=== PATIENT | female | born 1965 | race Caucasian/White ===

== ENCOUNTER 2019-09-20 13:13 | Outpatient (CLI) | payer MEDICARE, MEDICAID, SELFPAY ==
[2019-09-20 13:50] LABS: Free T4 Free Thyroxine 1.01 ng/dL (0.76-1.46); Magnesium 1.7 mg/dL (1.8-2.4); Thyroid Stimulating Hormone 2.29 uIU/mL (0.36-3.74)
[2019-09-20] MEDS: CYANOCOBALAMIN INJ 1,000 MCG/ML VIAL 1000 MCG IM (13:52)
== END 2019-09-20 13:14 | disposition home or self-care (01) ==
LOC: CHSLAB 13:17
PROVIDERS: PCP Internal Medicine; Visit Provider Nurse Practitioner Family
DX: E53.8 Deficiency of other specified B group vitamins (principal); E83.42 Hypomagnesemia; E03.9 Hypothyroidism, unspecified
CPT/HCPCS: 36415; 83735; 84439; 84443; 96365; 96366; 96372; J3420; J3475; J7050

== ENCOUNTER 2019-10-17 13:03 | Outpatient (CLI) | payer MEDICARE, MEDICAID, SELFPAY ==
[2019-10-17] MEDS: CYANOCOBALAMIN INJ 1,000 MCG/ML VIAL 1000 MCG IM (13:45)
[2019-10-17 14:23] LABS: Vitamin B12 954 pg/mL (193-986)
[2019-10-17 17:13] LABS: Magnesium 1.6 mg/dL (1.8-2.4)
== END 2019-10-17 13:04 | disposition home or self-care (01) ==
LOC: CHSLAB 13:06
PROVIDERS: PCP Internal Medicine; Visit Provider Internal Medicine
DX: E53.8 Deficiency of other specified B group vitamins (principal); E83.42 Hypomagnesemia
CPT/HCPCS: 36415; 82607; 83735; 96365; 96367; J3420; J3475

== ENCOUNTER 2020-01-10 15:43 | Outpatient (CLI) | payer MEDICARE, SELFPAY ==
[2020-01-10 15:58] LABS: Basophils Absolute Auto 0.06 K/mm3 (0.00-0.10); Basophils Percent Auto 0.4 % (0.0-1.0); Eosinophils Absolute Auto 0.39 K/mm3 (0.02-0.50); Eosinophils Percent Auto 2.9 % (1.0-6.0); Hematocrit 38.4 % (35.0-49.0); Hemoglobin 12.6 g/dL (12.0-15.0); Immature Granulocyte Absolute 0.07 K/mm3 (0.00-0.00); Immature Granulocyte Percent A 0.5 % (0.0-0.0); Lymphocytes Absolute Auto 3.27 K/mm3 (1.10-4.50); Lymphocytes Percent Auto 24.3 % (18.0-42.0); Mean Corpuscular HGB Conc 32.8 g/dL (32.0-36.0); Mean Corpuscular Hemoglobin 29.4 pg (27.0-31.0); Mean Corpuscular Volume 89.5 fL (78.0-102.0); Mean Platelet Volume 9.6 fl (9.2-11.8); Monocytes Absolute Auto 0.67 K/mm3 (0.10-0.90); Neutrophils Percent Auto 66.9 % (50.0-70.0); Platelet Count Result 229 K/mm3 (150-420); Red Blood Count 4.29 M/mm3 (4.20-5.40); Red Cell Distribution Width 13.2 % (11.6-14.4); White Blood Count 13.4 K/mm3 (4.8-10.8)
[2020-01-10 16:02] LABS: Add Urine Microscopic? YES; Appearance Urine Clear (Clear); Bilirubin Urine Negative (Negative); Blood Urine Negative (Negative); Color Urine Yellow (Yellow); Glucose Urine UA 3+ (Negative); Ketones Urine Negative (Negative); Leukocyte Esterase Ur Negative LEU/UL (Negative); Nitrate Urine Negative (Negative); Protein Urine Negative (Negative); Urobilinogen Urine 0.2 mg/dL (0.2-1.0); pH Urine 6.5 (5.0-8.0)
[2020-01-10 16:06] LABS: Bacteria Urine Trace /hpf; RBC Urine None seen /hpf (0-2); Squamous Epithelial Cell Urine Few /hpf (Few); WBC Urine 0-3 /hpf (0-3)
[2020-01-10 16:41] LABS: Alanine Aminotransferase 20 U/L (14-59); Albumin Level 3.6 g/dL (3.4-5.0); Alkaline Phosphatase 91 U/L (46-116); Anion Gap 12.2 mmol/L (7-16); Aspartate Amino Transferase 17 U/L (15-37); Bilirubin,Total 0.2 mg/dL (0.00-1.00); Blood Urea Nitrogen 32 mg/dL (7-18); Calcium 10.4 mg/dL (8.5-10.1); Carbon Dioxide 33 mmol/L (21-32); Chloride 99 mmol/L (98-108); Estimated Glomerular Filt Rate 37; Glucose 202 mg/dL (70-99); Magnesium 1.2 mg/dL (1.8-2.4); Osmolality Calculated 302 mOsm/kg (285-295); Phosphorus 3.9 mg/dL (2.6-4.7); Potassium 4.2 mmol/L (3.5-5.1); Sodium 140 mmol/L (136-145); Total Protein 6.7 g/dL (6.4-8.2)
[2020-01-14 16:01] LABS: CRP 1.2 mg/dL (0.0-0.9); Uric Acid 5.9 mg/dL (2.6-6.0)
[2020-01-17 21:25] LABS: Anti Cyclic Citrullinated Pept <16 Units (<20)
== END 2020-01-10 15:44 | disposition home or self-care (01) ==
LOC: CHSLAB 15:46
PROVIDERS: PCP Internal Medicine; Visit Provider Internal Medicine
DX: R11.0 Nausea (principal); R42 Dizziness and giddiness; E83.42 Hypomagnesemia; I12.9 Hypertensive chronic kidney disease with stage 1 through stage 4 chronic kidney disease, or unspecified chronic kidney disease; N18.3 Chronic kidney disease, stage 3 (moderate)
CPT/HCPCS: 36415; 80053; 81001; 83735; 84100; 84550; 85025; 86140; 86200

== ENCOUNTER 2020-01-14 12:18 | Outpatient (CLI) | payer MEDICARE, MEDICAID, SELFPAY ==
--- NOTE | ~2020-01-14 | XR_ITS ---
EXAMINATION: XR wrist RT min 3V DATE: 01/14/2020 12:35 INDICATION: Right wrist pain and swelling. TECHNIQUE: 4 views of right wrist were obtained. COMPARISON: Right hand radiographs 10/31/2019 FINDINGS: Bone alignment is normal. No fracture. There are erosions of radial styloid and distal ulna . There are dystrophic calcifications in the wrist including chondrocalcinosis of triangular fibrocar tilage. IMPRESSION: 1. Erosions in radial styloid and distal ulna. The differential diagnosis includes gout, CPPD arthrop athy, and rheumatoid arthritis. Reviewed, dictated and finalized at location A. IMPRESSION: 1. Erosions in radial styloid and distal ulna. The differential diagnosis inclu acosta gout, CPPD arthropathy, and rheumatoid arthritis.
== END 2020-01-14 12:19 | disposition home or self-care (01) ==
LOC: CHSIMG 12:22
PROVIDERS: PCP Internal Medicine; Visit Provider Internal Medicine
DX: E83.42 Hypomagnesemia (principal); E83.52 Hypercalcemia; M25.531 Pain in right wrist
CPT/HCPCS: 73110

== ENCOUNTER 2020-01-15 11:01 | Outpatient (CLI) | payer MEDICARE, MEDICAID, SELFPAY ==
[2020-01-15] MEDS: CYANOCOBALAMIN INJ 1,000 MCG/ML VIAL 1000 MCG IM (11:35)
== END 2020-01-15 11:02 | disposition home or self-care (01) ==
PROVIDERS: PCP Internal Medicine; Visit Provider Internal Medicine
DX: E53.8 Deficiency of other specified B group vitamins (principal); E83.42 Hypomagnesemia
CPT/HCPCS: 96365; 96366; 96372; J3420; J3475; J7050

== ENCOUNTER 2020-01-27 13:02 | Outpatient (CLI) | payer MEDICARE, SELFPAY ==
[2020-01-27 13:53] LABS: Alanine Aminotransferase 27 U/L (14-59); Albumin Level 3.2 g/dL (3.4-5.0); Alkaline Phosphatase 92 U/L (46-116); Anion Gap 9.4 mmol/L (7-16); Aspartate Amino Transferase 20 U/L (15-37); Bilirubin,Total 0.4 mg/dL (0.00-1.00); Blood Urea Nitrogen 29 mg/dL (7-18); Calcium 8.8 mg/dL (8.5-10.1); Carbon Dioxide 33 mmol/L (21-32); Chloride 101 mmol/L (98-108); Estimated Glomerular Filt Rate 40; Glucose 123 mg/dL (70-99); Magnesium 1.4 mg/dL (1.8-2.4); Osmolality Calculated 294 mOsm/kg (285-295); Phosphorus 3.4 mg/dL (2.6-4.7); Potassium 4.4 mmol/L (3.5-5.1); Sodium 139 mmol/L (136-145); Total Protein 6.6 g/dL (6.4-8.2)
[2020-01-29 11:36] LABS: Parathyroid Intact 63 pg/mL (14-64)
== END 2020-01-27 13:03 | disposition home or self-care (01) ==
LOC: CHSLAB 13:04
PROVIDERS: PCP Internal Medicine; Visit Provider Internal Medicine
DX: E83.42 Hypomagnesemia (principal); E83.52 Hypercalcemia; M25.531 Pain in right wrist
CPT/HCPCS: 36415; 80053; 83735; 83970; 84100

== ENCOUNTER 2020-02-04 13:29 | Outpatient (CLI) | payer MEDICARE, MEDICAID, SELFPAY ==
--- NOTE | ~2020-02-04 | CT_ITS ---
EXAMINATION: CT sinus wo con DATE: 02/04/2020 13:55 INDICATION: Chronic sinusitis TECHNIQUE: Computed tomography (CT) of the paranasal sinuses was performed without intravenous contra st. The dose-length product (DLP) was 272.65 mGy-cm. Iterative reconstruction was used. COMPARISON: None FINDINGS: There is normal development and pneumatization of the paranasal sinuses. The right frontal sinus is hypoplastic. The left frontal sinus is normal. There is mucosal thickening in the inferior a spect of the right maxillary sinus. There is mild mucosal thickening in the right anterior ethmoidal air cells. There appear to be surgical changes in the medial samaniego of the maxillary sinuses. The righ t ostiomeatal complex is patent but narrow. Visualized soft tissues are unremarkable. IMPRESSION: 1. Right maxillary and ethmoidal air cell sinusitis. Reviewed, dictated and finalized at location A.
[2020-02-04 13:45] LABS: Add Urine Microscopic? YES; Appearance Urine Clear (Clear); Bilirubin Urine Negative (Negative); Blood Urine Negative (Negative); Color Urine Straw (Yellow); Glucose Urine UA 3+ (Negative); Ketones Urine Negative (Negative); Leukocyte Esterase Ur Negative LEU/UL (Negative); Nitrate Urine Negative (Negative); Protein Urine Negative (Negative); Urobilinogen Urine 0.2 mg/dL (0.2-1.0); pH Urine 6.5 (5.0-8.0)
[2020-02-04 14:01] LABS: Bacteria Urine Trace /hpf; Mucus Urine Few /lpf; RBC Urine None seen /hpf (0-2); Squamous Epithelial Cell Urine Few /hpf (Few); WBC Urine None seen /hpf (0-3)
== END 2020-02-04 13:30 | disposition home or self-care (01) ==
LOC: CHSIMG 13:31
PROVIDERS: PCP Internal Medicine
DX: J32.8 Other chronic sinusitis (principal); N39.0 Urinary tract infection, site not specified
CPT/HCPCS: 70486; 81001

== ENCOUNTER 2020-02-18 13:03 | Outpatient (CLI) | payer MEDICARE, MEDICAID, SELFPAY ==
[2020-02-18] MEDS: CYANOCOBALAMIN INJ 1,000 MCG/ML VIAL 1000 MCG IM (13:45)
--- NOTE | 2020-02-18 16:30 | PC.NURSE ---
Patient tolerated infusion well. Denies any questions or concerns. IV site removed, tip intact. Dressing applied to site. Paitent left ambulatory.
== END 2020-02-18 13:04 | disposition home or self-care (01) ==
LOC: CHSTREATRM 13:08
PROVIDERS: PCP Internal Medicine; Visit Provider Internal Medicine
DX: E53.8 Deficiency of other specified B group vitamins (principal); E83.42 Hypomagnesemia
CPT/HCPCS: 96365; 96366; 96372; J3420; J3475; J7050

== ENCOUNTER 2020-03-01 10:18 | Emergency (ER) | payer MEDICARE, MEDICAID, SELFPAY ==
--- NOTE | ~2020-03-01 | CT_ITS ---
EXAMINATION: CT abdomen pelvis w con DATE: 03/01/2020 14:07 INDICATION: Left lower quadrant abdominal pain. TECHNIQUE: Computed tomography (CT) of the abdomen and pelvis was performed with 100 mL Omnipaque 350 intravenous contrast. Automated exposure control and iterative reconstruction technique were employe d. The dose-length product was 1598.40 mGy-cm. COMPARISON: CT abdomen and pelvis 04/21/17 FINDINGS: The visualized portions of the lung bases are clear without pneumonia or pleural effusion. The heart size is normal. There are coronary artery calcifications. No pericardial effusion. There ar e surgical changes of the stomach. The liver and spleen are normal. The gallbladder is distended. Darrell cifications in the pancreas are consistent with chronic pancreatitis. The adrenal glands are normal. There is cortical thinning of the kidneys. There is a 2.9 cm cyst in right kidney. There are no dilat ed loops of bowel. The appendix is normal. There are no pathologically enlarged lymph nodes. There is no free intraperitoneal fluid. There is severe thoracic and lumbar spondylosis. There is mild chroni c anterior wedging of multiple thoracic vertebral bodies. IMPRESSION: 1. Gallbladder distention, which may be secondary to fasting. Correlate with physical exam to exclude acute cholecystitis. Reviewed, dictated and finalized at location A. IMPRESSION: 1. Gallbladder distention, which may be secondary to fasting. Correlate with ph ysical exam to exclude acute cholecystitis.
[2020-03-01 12:00] VITALS: BP 135/77; PULSE 81; RESP 20; TEMP 36.9; O2SAT 99
[2020-03-01 12:04] LABS: Add Urine Microscopic? YES; Appearance Urine Sl Cloudy (Clear); Bilirubin Urine Negative (Negative); Blood Urine Negative (Negative); Color Urine Yellow (Yellow); Glucose Urine UA 3+ (Negative); Ketones Urine Negative (Negative); Leukocyte Esterase Ur Negative (Negative); Nitrate Urine Negative (Negative); Protein Urine Negative (Negative); Specific Grav Ur 1.015 (1.010-1.020); Urobilinogen Urine 0.2 mg/dL (0.2-1.0); pH Urine 5.5 (5.0-8.0)
[2020-03-01 12:09] LABS: Bacteria Urine Trace /hpf; RBC Urine None seen /hpf (0-2); Squamous Epithelial Cell Urine Moderate /hpf (Few); WBC Urine None seen /hpf (0-3)
[2020-03-01 12:29] LABS: Basophils Absolute Auto 0.08 K/mm3 (0.00-0.10); Basophils Percent Auto 0.7 % (0.0-1.0); Eosinophils Absolute Auto 0.76 K/mm3 (0.02-0.50); Eosinophils Percent Auto 6.3 % (1.0-6.0); Hematocrit 39.3 % (35.0-49.0); Hemoglobin 12.6 g/dL (12.0-15.0); Immature Granulocyte Absolute 0.08 K/mm3 (0.00-0.00); Immature Granulocyte Percent A 0.7 % (0.0-0.0); Lymphocytes Absolute Auto 3.25 K/mm3 (1.10-4.50); Lymphocytes Percent Auto 26.9 % (18.0-42.0); Mean Corpuscular HGB Conc 32.1 g/dL (32.0-36.0); Mean Corpuscular Hemoglobin 28.8 pg (27.0-31.0); Mean Corpuscular Volume 89.9 fL (78.0-102.0); Monocytes Absolute Auto 0.67 K/mm3 (0.10-0.90); Monocytes Percent Auto 5.6 % (2.0-11.0); Neutrophils Absolute Auto 7.2 K/mm3 (1.7-7.2); Neutrophils Percent Auto 59.8 % (50.0-70.0); Platelet Count Result 244 K/mm3 (150-420); Red Blood Count 4.37 M/mm3 (4.20-5.40); Red Cell Distribution Width 13.1 % (11.6-14.4); White Blood Count 12.1 K/mm3 (4.8-10.8)
[2020-03-01 12:41] LABS: Partial Thromboplastin Time 26.1 SEC (22.3-31.6); Prothrombin Time 10.1 Seconds (9.64-11.0)
[2020-03-01 12:44] LABS: Alanine Aminotransferase 20 U/L (14-59); Albumin Level 3.6 g/dL (3.4-5.0); Alkaline Phosphatase 99 U/L (46-116); Anion Gap 10.8 mmol/L (7-16); Aspartate Amino Transferase 20 U/L (15-37); Bilirubin,Total 0.4 mg/dL (0.00-1.00); Blood Urea Nitrogen 44 mg/dL (7-18); Calcium 9.3 mg/dL (8.5-10.1); Carbon Dioxide 30 mmol/L (21-32); Chloride 101 mmol/L (98-108); Estimated Glomerular Filt Rate 39; Glucose 103 mg/dL (70-99); Lipase 201 U/L (73-393); Osmolality Calculated 297 mOsm/kg (285-295); Potassium 3.8 mmol/L (3.5-5.1); Sodium 138 mmol/L (136-145); Total Protein 7.5 g/dL (6.4-8.2)
[2020-03-01] MEDS: SODIUM CHLORIDE 0.9% IV 1,000 ML 999 ML IV CONT (13:18)
--- NOTE | 2020-03-01 14:07 | ED.ABDPAIN ---
HPI - Abdominal Pain General Chief Complaint: Abdominal Pain Stated Complaint: lower abdomen pain Time Seen by Provider: 03/01/20 14:07 Source: patient Mode of arrival: ambulatory Limitations: no limitations History of Present Illness HPI narrative: 54-year-old woman comes in today complaining of left groin and left lower quadrant pain which has been present intermittently for last 3 weeks. She states it started suddenly, was severe and lasted for several hours. Since then it has been intermittent. She denies any groin swelling, fever, nausea, vomiting, diarrhea or history of hernia. She has had no change in her appetite or patterns of bowel movement. She was diagnosed with the UTI approximately 1 week ago and took 7 days of Cipro. She denies any dysuria, hematuria or urinary frequency. She developed a yeast infection and took Diflucan afterwards which resolved the problem. MD elicited complaint: abdominal pain Onset (ago): week(s) (3) Pain Consistency: intermittent Location: LLQ and groin (left) Severity: moderate Quality: sharp Radiation: none Migration to: no migration Exacerbating factors: nothing Relieving factors: nothing Context: confirms recent antibiotic use Related Data Home Medications Medication Instructions Recorded Confirmed allopurinol 100 mg tablet 100 mg PO DAILY 10/31/19 03/01/20 exenatide microspheres 2 mg/0.65 2 mg SUB-Q Q7D 10/31/19 03/01/20 mL subcutaneous pen injector dapagliflozin 10 mg tablet 10 mg PO DAILY 11/11/19 03/01/20 levothyroxine 13 mcg capsule 13 mcg PO DAILY 11/11/19 03/01/20 losartan 100 1 tablet PO DAILY 11/11/19 03/01/20 mg-hydrochlorothiazide 12.5 mg tablet pravastatin 20 mg tablet 40 mg PO DAILY tablet 11/11/19 03/01/20 insulin aspart U-100 [Novolog 8 unit SUBCUT QAM 03/01/20 03/01/20 Flexpen U-100 Insulin] insulin aspart U-100 [Novolog 16 unit SUBCUT QNOON 03/01/20 03/01/20 Flexpen U-100 Insulin] insulin aspart U-100 [Novolog 16 unit SUBCUT QPM 03/01/20 03/01/20 Flexpen U-100 Insulin] insulin glargine [Lantus Solostar 30 unit SUBCUT HS 03/01/20 03/01/20 U-100 Insulin] magnesium chloride 8 meq IV ONCE 03/01/20 03/01/20 mecobalamin (vitamin B12) 10,000 mcg IV MONTHLY 03/01/20 03/01/20 iemeznqnvhcz-eqw-nkiq-FA-vit K 1 tablet PO BID 03/01/20 03/01/20 [Adults Multivitamin] verapamil 80 mg PO DAILY 03/01/20 03/01/20 Allergies Allergy/AdvReac Type Severity Reaction Status Date / Time No Known Allergies Allergy Unknown Verified 10/31/19 14:29 Review of Systems Constitutional: Constitutional: Denies chills and Denies fever(s) Eyes: Eyes: Denies change in vision and Denies photophobia ENT: Denies dysphagia, Denies nasal congestion and Denies sore throat Cardiovascular: Cardiovascular: Denies chest pain and Denies radiating jaw, neck or arm pain Respiratory: Respiratory: Denies chest congestion, Denies cough, Denies dyspnea and Denies wheezing Gastrointestinal: Gastrointestinal: Reports abdominal pain, Denies diarrhea, Denies nausea and Denies vomiting Genitourinary: Genitourinary: Denies hematuria, Denies nocturia and Denies dysuria Musculoskeletal: Musculoskeletal: Denies back pain, Denies arthralgias and Denies joint swelling Integumentary/Breasts: Skin/Breast: Denies pruritus, Denies erythema and Denies rash Neurologic: Denies vertigo, Denies dizziness and Denies syncope Psychiatric: Psychiatric: Denies anxiety and Denies depression Endocrine: Endocrine: Denies polydipsia and Denies polyuria Hematologic/Lymphatic: Hematologic/Lymphatic: Denies easy bleeding and Denies easy bruising Allergic/Immunologic: Allergic/Immunologic: Denies lip swelling and Denies wheezing PMFSH Past Medical History Medical History Anemia Anxiety Arthritis Bilateral knee pain Depression Diabetes 1.5, managed as type 2 High cholesterol HTN (hypertension) Kidney disease Sleep apnea Social History Soc
[2020-03-01 15:22] VITALS: BP 117/99; PULSE 90; O2SAT 97
== END 2020-03-01 15:25 | disposition home or self-care (01) ==
PROVIDERS: Emergency Provider Emergency Medicine; PCP Internal Medicine
DX: R10.9 Unspecified abdominal pain (principal); N18.9 Chronic kidney disease, unspecified
CPT/HCPCS: 36415; 74177; 80053; 81001; 83605; 83690; 85025; 85610; 85730; 96360; 96361; 99283; 99284; J7030; Q9965

== ENCOUNTER 2020-03-19 12:35 | Outpatient (CLI) | payer MEDICARE, MEDICAID, SELFPAY ==
[2020-03-19] MEDS: CYANOCOBALAMIN INJ 1,000 MCG/ML VIAL 1000 MCG IM (13:55)
== END 2020-03-19 12:36 | disposition home or self-care (01) ==
LOC: CHSTREATRM 12:37
PROVIDERS: PCP Internal Medicine; Visit Provider Internal Medicine
DX: E53.8 Deficiency of other specified B group vitamins (principal); E83.42 Hypomagnesemia
CPT/HCPCS: 96365; 96366; 96372; J3420; J3475; J7050

== ENCOUNTER 2020-04-20 13:18 | Outpatient (CLI) | payer MEDICARE, MEDICAID, SELFPAY ==
--- NOTE | 2020-04-20 13:50 | PC.NURSE ---
Pt to room 229 amb per self. A&Ox3. Oriented to room, call garcia in reach. Has no complaints or questions. Reminded to call with needs.
[2020-04-20] MEDS: CYANOCOBALAMIN INJ 1,000 MCG/ML VIAL 1000 MCG IM (14:09)
== END 2020-04-20 13:19 | disposition home or self-care (01) ==
LOC: CHSTREATRM 13:20
PROVIDERS: PCP Internal Medicine; Visit Provider Internal Medicine
DX: E53.8 Deficiency of other specified B group vitamins (principal); E83.42 Hypomagnesemia
CPT/HCPCS: 96365; 96366; 96372; J3420

== ENCOUNTER 2020-05-20 12:51 | Outpatient (CLI) | payer MEDICARE, MEDICAID, SELFPAY ==
[2020-05-20 13:12] VITALS: BP 118/60; PULSE 68; RESP 14; TEMP 36.6; O2SAT 98
[2020-05-20] MEDS: CYANOCOBALAMIN INJ 1,000 MCG/ML VIAL 1000 MCG IM (13:24)
--- NOTE | 2020-05-20 13:29 | PC.NURSE ---
Patient here for monthly B12 injection and Magnesium Infusion. No concerns voiced. B12 injection and Magnesium infusion administered. Tolerated well.
== END 2020-05-20 12:52 | disposition home or self-care (01) ==
LOC: CHSTREATRM 12:54
PROVIDERS: PCP Internal Medicine; Visit Provider Internal Medicine
DX: E83.42 Hypomagnesemia (principal); E53.8 Deficiency of other specified B group vitamins
CPT/HCPCS: 96365; 96366; 96372; J3420; J3475; J7050

== ENCOUNTER 2020-06-18 13:00 | Outpatient (CLI) | payer MEDICARE, MEDICAID, SELFPAY ==
[2020-06-18] MEDS: CYANOCOBALAMIN INJ 1,000 MCG/ML VIAL 1000 MCG IM (13:32)
[2020-06-18 13:45] VITALS: BP 116/60; PULSE 68; RESP 16; TEMP 36.6; O2SAT 97
--- NOTE | 2020-06-18 14:08 | PC.NURSE ---
Patient here for monthly Vitamin B12 injection and IV Magnesium infusion. No concerns voiced. Vitamin B12 injection given. Iv Magnesium administered. Tolerated well. Will return next month- Jul 20Monday AT1pm
== END 2020-06-18 13:01 | disposition home or self-care (01) ==
LOC: CHSTREATRM 13:01
PROVIDERS: PCP Internal Medicine; Visit Provider Internal Medicine
DX: E53.9 Vitamin B deficiency, unspecified (principal); E83.42 Hypomagnesemia
CPT/HCPCS: 96365; 96366; 96372; J3420; J3475; J7050

== ENCOUNTER 2020-07-20 13:02 | Outpatient (CLI) | payer MEDICARE, MEDICAID, SELFPAY ==
[2020-07-20] MEDS: CYANOCOBALAMIN INJ 1,000 MCG/ML VIAL 1000 MCG IM (13:52)
[2020-07-20 13:53] VITALS: BP 121/78; PULSE 68; RESP 14; TEMP 36.2; O2SAT 97
--- NOTE | 2020-07-20 13:55 | PC.NURSE ---
Patient here for monthly B12 injection and Magnesium infusion. No concerns voiced. Medication administered. Will return in 1 month.
[2020-07-20 17:15] LABS: Basophils Absolute Auto 0.07 K/mm3 (0.00-0.10); Basophils Percent Auto 0.5 % (0.0-1.0); Eosinophils Absolute Auto 0.68 K/mm3 (0.02-0.50); Eosinophils Percent Auto 5.1 % (1.0-6.0); Hematocrit 40.3 % (35.0-49.0); Hemoglobin 12.8 g/dL (12.0-15.0); Immature Granulocyte Absolute 0.06 K/mm3 (0.00-0.00); Immature Granulocyte Percent A 0.4 % (0.0-0.0); Lymphocytes Absolute Auto 4.06 K/mm3 (1.10-4.50); Lymphocytes Percent Auto 30.3 % (18.0-42.0); Mean Corpuscular HGB Conc 31.8 g/dL (32.0-36.0); Mean Corpuscular Hemoglobin 28.5 pg (27.0-31.0); Mean Corpuscular Volume 89.8 fL (78.0-102.0); Mean Platelet Volume 9.8 fl (9.2-11.8); Monocytes Percent Auto 4.5 % (2.0-11.0); Neutrophils Absolute Auto 7.9 K/mm3 (1.7-7.2); Neutrophils Percent Auto 59.2 % (50.0-70.0); Platelet Count Result 279 K/mm3 (150-420); Red Blood Count 4.49 M/mm3 (4.20-5.40); Red Cell Distribution Width 12.7 % (11.6-14.4); White Blood Count 13.4 K/mm3 (4.8-10.8)
[2020-07-20 17:49] LABS: Add Urine Microscopic? YES; Appearance Urine Clear (Clear); Bilirubin Urine Negative (Negative); Blood Urine Negative (Negative); Color Urine Yellow (Yellow); Creatinine Urine 36.17 mg/dL (40-278); Glucose Urine UA 3+ (Negative); Ketones Urine Negative (Negative); Leukocyte Esterase Ur Negative (Negative); Nitrate Urine Negative (Negative); Protein Urine Negative (Negative); Specific Grav Ur 1.025 (1.010-1.020); Total Protein Urine Random 9.7 mg/dL (0.0-11.9); Urobilinogen Urine 0.2 mg/dL (0.2-1.0); pH Urine 5.5 (5.0-8.0)
[2020-07-20 17:49] LABS: Albumin Level 3.8 g/dL (3.4-5.0); Anion Gap 9 mmol/L (8-16); Blood Urea Nitrogen 28 mg/dL (7-18); Calcium 9.9 mg/dL (8.5-10.1); Carbon Dioxide 30 mmol/L (21-32); Chloride 103 mmol/L (98-108); Estimated Glomerular Filt Rate 39; Glucose 106 mg/dL (70-99); Magnesium 3.6 mg/dL (1.8-2.4); Osmolality Calculated 299 mOsm/kg (285-295); Phosphorus 2.7 mg/dL (2.6-4.7); Sodium 142 mmol/L (136-145)
[2020-07-20 17:58] LABS: Bacteria Urine Trace /hpf; RBC Urine 0-2 /hpf (0-2); Squamous Epithelial Cell Urine Few /hpf (Few); WBC Urine 0-3 /hpf (0-3)
== END 2020-07-20 13:03 | disposition home or self-care (01) ==
PROVIDERS: PCP Internal Medicine
DX: E53.8 Deficiency of other specified B group vitamins (principal); E83.42 Hypomagnesemia
CPT/HCPCS: 36415; 80069; 81001; 82570; 83735; 84156; 85025; 96365; 96366; 96372; J3420; J3475; J7050

== ENCOUNTER 2020-07-28 08:56 | Outpatient (CLI) | payer MEDICARE, MEDICAID, SELFPAY ==
--- NOTE | ~2020-07-28 | XR_ITS ---
EXAMINATION: XR wrist LT min 3V DATE: 07/28/2020 09:24 INDICATION: Left wrist pain. TECHNIQUE: 3 views of left wrist were obtained. COMPARISON: Left hand radiographs 10/31/2019 FINDINGS: Bone alignment is normal. No fracture. There is mild osteoarthritis of triscaphe joint. The re are dystrophic calcifications in the wrist including at the triangular fibrocartilage. IMPRESSION: 1. Mild osteoarthritis of triscaphe joint. Reviewed, dictated and finalized at location B. CTOR ADULT
--- NOTE | ~2020-07-28 | XR_ITS ---
EXAMINATION: XR wrist RT min 3V DATE: 07/28/2020 09:24 INDICATION: Right wrist pain. TECHNIQUE: 3 views of right wrist were obtained. COMPARISON: Right wrist radiographs 01/14/2020 FINDINGS: Bone alignment is normal. No fracture. There is mild osteoarthritis of triscaphe joint, fir st carpometacarpal joint, and radioscaphoid joint. There are dystrophic calcifications in the wrist i ncluding at the triangular fibrocartilage. IMPRESSION: 1. Mild polyarticular osteoarthritis. Reviewed, dictated and finalized at location B. 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
== END 2020-07-28 08:57 | disposition home or self-care (01) ==
LOC: CHSIMG 08:58
PROVIDERS: PCP Internal Medicine; Visit Provider Orthopaedic Surgery
DX: M25.532 Pain in left wrist (principal); M25.531 Pain in right wrist
CPT/HCPCS: 73110

== ENCOUNTER 2020-08-18 13:03 | Outpatient (CLI) | payer MEDICARE, MEDICAID, SELFPAY ==
[2020-08-18 13:26] VITALS: BP 140/60; PULSE 78; RESP 16; TEMP 36.4; O2SAT 99
[2020-08-18] MEDS: CYANOCOBALAMIN INJ 1,000 MCG/ML VIAL 1000 MCG IM (13:38)
--- NOTE | 2020-08-18 13:48 | PC.NURSE ---
Patient here for monthly B12 injection and IV Magnesium infusion over 3 hours. No concerns voiced. Medication above administered. Magnesium infusion started at 1338 finished 1639. Will return Sep 15, 2020
== END 2020-08-18 13:04 | disposition home or self-care (01) ==
LOC: CHSOP 13:07 → CHSTREATRM 13:16
PROVIDERS: PCP Internal Medicine; Visit Provider Internal Medicine
DX: E53.8 Deficiency of other specified B group vitamins (principal); E83.42 Hypomagnesemia
CPT/HCPCS: 96365; 96366; 96372; J3420; J3475; J7050

== ENCOUNTER 2020-09-15 13:00 | Outpatient (CLI) | payer MEDICARE, MEDICAID, SELFPAY ==
[2020-09-15] MEDS: CYANOCOBALAMIN INJ 1,000 MCG/ML VIAL 1000 MCG IM (13:58)
== END 2020-09-15 13:01 | disposition home or self-care (01) ==
PROVIDERS: PCP Internal Medicine; Visit Provider Internal Medicine
DX: E83.42 Hypomagnesemia (principal); E53.8 Deficiency of other specified B group vitamins
CPT/HCPCS: 96365; 96366; 96372; J3420; J3475; J7050

== ENCOUNTER 2020-10-16 12:28 | Outpatient (CLI) | payer MEDICARE, MEDICAID, SELFPAY ==
--- NOTE | 2020-10-16 12:40 | PC.NURSE ---
Here for op IM and IV meds
[2020-10-16 12:52] LABS: Magnesium 1.5 mg/dL (1.8-2.4)
[2020-10-16] MEDS: CYANOCOBALAMIN INJ 1,000 MCG/ML VIAL 1000 MCG IM (13:12)
== END 2020-10-16 12:29 | disposition home or self-care (01) ==
PROVIDERS: PCP Internal Medicine; Visit Provider Internal Medicine
DX: E83.42 Hypomagnesemia (principal); E53.8 Deficiency of other specified B group vitamins
CPT/HCPCS: 36415; 83735; 96360; 96361; 96372; J3420; J3475; J7050

== ENCOUNTER 2020-10-20 08:08 | Outpatient (CLI) | payer MEDICARE, MEDICAID, SELFPAY ==
--- NOTE | ~2020-10-20 | XR_ITS ---
EXAMINATION: XR elbow RT min 3V DATE: 10/20/2020 08:33 INDICATION: Right elbow pain. TECHNIQUE: 3 views of right elbow were obtained. COMPARISON: None. FINDINGS: Bone alignment is normal. No fracture. There is mild elbow joint osteoarthritis. There are dystrophic calcifications at the elbow joint including chondrocalcinosis. There is an enthesophyte at medial humeral epicondyle. No elbow joint effusion. IMPRESSION: 1. Mild elbow joint osteoarthritis. Reviewed, dictated and finalized at location A. 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
--- NOTE | ~2020-10-20 | XR_ITS ---
EXAMINATION: XR elbow LT min 3V DATE: 10/20/2020 08:33 INDICATION: Left elbow pain. TECHNIQUE: 3 views of left elbow were obtained. COMPARISON: Left elbow radiographs 01/14/2018 FINDINGS: Bone alignment is normal. No fracture. There is mild elbow joint osteoarthritis. There are dystrophic calcifications at the elbow joint including chondrocalcinosis. No elbow joint effusion. IMPRESSION: 1. Mild elbow joint osteoarthritis. Reviewed, dictated and finalized at location A. PHONE AD TAKER
== END 2020-10-20 08:09 | disposition home or self-care (01) ==
PROVIDERS: PCP Internal Medicine; Visit Provider Orthopaedic Surgery
DX: M25.522 Pain in left elbow (principal); M25.521 Pain in right elbow; M19.022 Primary osteoarthritis, left elbow; M19.021 Primary osteoarthritis, right elbow
CPT/HCPCS: 73080

== ENCOUNTER 2020-11-17 12:58 | Outpatient (CLI) | payer MEDICARE, MEDICAID, SELFPAY ==
[2020-11-17 13:37] VITALS: BP 123/70; PULSE 68; RESP 14; TEMP 36.7; O2SAT 96
[2020-11-17 13:48] LABS: Magnesium 1.8 mg/dL (1.8-2.4)
[2020-11-17] MEDS: CYANOCOBALAMIN INJ 1,000 MCG/ML VIAL 1000 MCG IM (14:00)
--- NOTE | 2020-11-17 17:15 | PC.NURSE ---
infusion complete, saline lock dc'd, discharged ambulatory to home
== END 2020-11-17 12:59 | disposition home or self-care (01) ==
LOC: CHSTREATRM 13:03
PROVIDERS: PCP Internal Medicine; Visit Provider Internal Medicine
DX: E53.8 Deficiency of other specified B group vitamins (principal); E83.42 Hypomagnesemia
CPT/HCPCS: 36415; 83735; 96365; 96366; 96372; J3420; J3475; J7050

== ENCOUNTER 2020-11-25 09:51 | Outpatient (CLI) | payer MEDICARE, MEDICAID, SELFPAY ==
--- NOTE | ~2020-11-25 | MM_ITS ---
EXAMINATION: MM screening venkat BI w iram HISTORY: Screening mammogram TECHNIQUE: Craniocaudal and mediolateral oblique 3-D tomosynthesis images were obtained and synthetic 2-D images were generated. CAD analysis was submitted and interpreted. COMPARISON: 09/19/2011 bilateral digital screening mammogram 10/10/2011 right breast ultrasound BREAST PARENCHYMAL COMPOSITION: There are scattered areas of fibroglandular density. FINDINGS: There is no evidence of suspicious mass, calcification, or architectural distortion to sugg est malignancy in either breast. There has been no suspicious interval change. IMPRESSION: 1. No mammographic evidence of malignancy. 2. Recommend routine screening mammography in one year. BI-RADS Category 1: Negative Reviewed, dictated and finalized at location A.
== END 2020-11-25 09:52 | disposition home or self-care (01) ==
LOC: CHSIMG 09:54
PROVIDERS: PCP Internal Medicine; Visit Provider Internal Medicine
DX: Z12.31 Encounter for screening mammogram for malignant neoplasm of breast (principal)
CPT/HCPCS: 77063; 77067

== ENCOUNTER 2020-11-29 07:02 | Outpatient (CLI) | payer MEDICARE, SELFPAY ==
[2020-11-29 07:30] LABS: Add Urine Microscopic? YES; Appearance Urine Clear (Clear); Basophils Absolute Auto 0.06 K/mm3 (0.00-0.10); Basophils Percent Auto 0.6 % (0.0-1.0); Bilirubin Urine Negative (Negative); Blood Urine Negative (Negative); Color Urine Yellow (Yellow); Eosinophils Absolute Auto 0.35 K/mm3 (0.02-0.50); Eosinophils Percent Auto 3.5 % (1.0-6.0); Glucose Urine UA 1+ (Negative); Hematocrit 40.3 % (35.0-49.0); Hemoglobin 12.3 g/dL (12.0-15.0); Immature Granulocyte Absolute 0.04 K/mm3 (0.00-0.00); Immature Granulocyte Percent A 0.4 % (0.0-0.0); Ketones Urine Negative (Negative); Leukocyte Esterase Ur Negative (Negative); Lymphocytes Absolute Auto 3.11 K/mm3 (1.10-4.50); Lymphocytes Percent Auto 31.2 % (18.0-42.0); Mean Corpuscular HGB Conc 30.5 g/dL (32.0-36.0); Mean Corpuscular Hemoglobin 28.9 pg (27.0-31.0); Mean Corpuscular Volume 94.6 fL (78.0-102.0); Mean Platelet Volume 9.6 fl (9.2-11.8); Monocytes Absolute Auto 0.59 K/mm3 (0.10-0.90); Monocytes Percent Auto 5.9 % (2.0-11.0); Neutrophils Absolute Auto 5.8 K/mm3 (1.7-7.2); Neutrophils Percent Auto 58.4 % (50.0-70.0); Nitrate Urine Negative (Negative); Platelet Count Result 225 K/mm3 (150-420); Protein Urine Negative (Negative); Red Blood Count 4.26 M/mm3 (4.20-5.40); Urobilinogen Urine 0.2 mg/dL (0.2-1.0)
[2020-11-29 07:38] LABS: Hemoglobin A1C 7.7 % (<5.7)
[2020-11-29 07:40] LABS: Bacteria Urine 1+ /hpf; RBC Urine 0-2 /hpf (0-2); Squamous Epithelial Cell Urine Moderate /hpf (Few); WBC Urine 0-3 /hpf (0-3)
[2020-11-29 07:58] LABS: Creatinine Urine 93.25 mg/dL (40-278); MALB Creatinine Ratio 43.6 mg/g (0-30); Microalbumin Urine Random 40.7 mg/L
[2020-11-29 08:55] LABS: Alanine Aminotransferase 32 U/L (14-59); Albumin Level 3.6 g/dL (3.4-5.0); Alkaline Phosphatase 90 U/L (46-116); Anion Gap 7 mmol/L (8-16); Aspartate Amino Transferase 19 U/L (15-37); Bilirubin,Total 0.5 mg/dL (0.00-1.00); Blood Urea Nitrogen 36 mg/dL (7-18); Calcium 9.7 mg/dL (8.5-10.1); Carbon Dioxide 32 mmol/L (21-32); Chloride 102 mmol/L (98-108); Cholesterol 154 mg/dL (0-200); Estimated Glomerular Filt Rate 34; Glucose 93 mg/dL (70-99); HDL Direct 64 mg/dL (40-60); LDL Cholesterol Calculated 58 mg/dL (<130); Magnesium 1.3 mg/dL (1.8-2.4); Osmolality Calculated 300 mOsm/kg (285-295); Phosphorus 3.7 mg/dL (2.6-4.7); Potassium 3.9 mmol/L (3.5-5.1); Sodium 141 mmol/L (136-145); Thyroid Stimulating Hormone 0.37 uIU/mL (0.36-3.74); Total Protein 6.8 g/dL (6.4-8.2); Triglycerides 161 mg/dL (0-150)
== END 2020-11-29 07:03 | disposition home or self-care (01) ==
PROVIDERS: PCP Internal Medicine; Visit Provider Internal Medicine Endocrinology, Diabetes & Metabolism
DX: E78.5 Hyperlipidemia, unspecified (principal); I10 Essential (primary) hypertension; E83.42 Hypomagnesemia; E11.59 Type 2 diabetes mellitus with other circulatory complications
CPT/HCPCS: 36415; 80053; 80061; 81001; 82043; 83036; 83735; 84100; 84443; 85025

== ENCOUNTER 2020-12-18 11:41 | Outpatient (CLI) | payer MEDICARE, MEDICAID, SELFPAY ==
--- NOTE | 2020-12-18 12:00 | PC.NURSE ---
Patient here from mag level, mag infusion and B12 injection. IV site started to left hand, patient tolerated well. Patient sitting up in chair resting. Call light provided, soda provided per request.
[2020-12-18 12:32] LABS: Magnesium 1.4 mg/dL (1.8-2.4)
[2020-12-18] MEDS: CYANOCOBALAMIN INJ 1,000 MCG/ML VIAL 1000 MCG IM (12:41)
--- NOTE | 2020-12-18 13:45 | PC.NURSE ---
Patient sleeping quietly in chair. No signs of distress noted. Tolerating infusion well. Call light at side.
--- NOTE | 2020-12-18 14:20 | PC.NURSE ---
Patient ambulated to bathroom and back to chair independently. Sitting up in chair resting. Denies any needs.
--- NOTE | 2020-12-18 15:40 | PC.NURSE ---
Patient tolerated infusion well. IV site removed, tip intact. Dressing applied to site. Next appt made for January 21. Patient denies any questions or concerns at discharge. Patient left building ambulatory.
== END 2020-12-18 11:42 | disposition home or self-care (01) ==
LOC: CHSTREATRM 11:45
PROVIDERS: PCP Internal Medicine; Visit Provider Internal Medicine
DX: E53.8 Deficiency of other specified B group vitamins (principal); E83.42 Hypomagnesemia
CPT/HCPCS: 36415; 83735; 96365; 96366; 96372; J3420; J3475; J7050

== ENCOUNTER 2021-01-21 12:17 | Outpatient (CLI) | payer MEDICARE, MEDICAID, SELFPAY ==
[2021-01-21 12:43] LABS: Magnesium 1.3 mg/dL (1.8-2.4)
[2021-01-21 12:47] VITALS: BP 120/68; PULSE 80; RESP 14; O2SAT 98
[2021-01-21] MEDS: CYANOCOBALAMIN INJ 1,000 MCG/ML VIAL 1000 MCG (12:53)
--- NOTE | 2021-01-21 16:00 | PC.NURSE ---
Patient here for monthly IV Magnesium infusion and B12 injection. No concerns voiced. Tolerated Mag infusion and B12 injection well. Mag level 1.3. Safe exit of hospital. Will return February 25, 2021 1200.
== END 2021-01-21 12:18 | disposition home or self-care (01) ==
LOC: CHSLAB 12:20 → CHSTREATRM 12:24
PROVIDERS: PCP Internal Medicine; Visit Provider Internal Medicine
DX: E53.8 Deficiency of other specified B group vitamins (principal); E83.42 Hypomagnesemia
CPT/HCPCS: 36415; 83735; 96365; 96366; 96372; J3420; J3475; J7050

== ENCOUNTER 2021-02-05 14:10 | Outpatient (CLI) | payer MEDICARE, MEDICAID, SELFPAY ==
--- NOTE | ~2021-02-05 | XR_ITS ---
XR elbow LT min 3V DATE: 02/05/2021 14:29 INDICATION: Left elbow pain TECHNIQUE: 4 views10/20/2020 left elbow COMPARISON: 10/20/2020 left elbow FINDINGS: There is moderately prominent osteoarthritis with spurring at the elbow joint medially and including coronoid process. There is chondrocalcinosis. No fracture or dislocation or joint effusion is evident. No periosteal reaction or bone destruction. IMPRESSION: Moderately prominent osteoarthritis Chondrocalcinosis Reviewed, dictated and finalized at location A.
== END 2021-02-05 14:11 | disposition home or self-care (01) ==
LOC: CHSLAB 14:13
PROVIDERS: PCP Internal Medicine; Visit Provider Orthopaedic Surgery
DX: M25.522 Pain in left elbow (principal)
CPT/HCPCS: 73080

== ENCOUNTER 2021-02-24 20:49 | Emergency (ER) | payer MEDICARE, MEDICAID, SELFPAY ==
[2021-02-24 21:27] VITALS: BP 122/95; PULSE 80; RESP 20; TEMP 37.1; O2SAT 97
--- NOTE | 2021-02-24 21:27 | ED.BACK ---
HPI - Back Pain/Injury General Chief Complaint: Urogenital-Female Stated Complaint: possible kidney stone Time Seen by Provider: 02/24/21 21:27 Source: patient Mode of arrival: ambulatory Limitations: no limitations History of Present Illness HPI Narrative: 55-year-old woman with a history of kidney stones comes in today complaining of some mild dysuria, and some low back pain which is mostly midline but also slightly to the right of midline. She states she woke up with it yesterday morning. She denies fever, nausea, vomiting, abdominal pain, hematuria, lower extremity weakness and incontinence. MD elicited complaint: back pain Pertinent past history: kidney stones Onset (ago): day(s) (2) Timing: constant Severity: moderate Similar Symptoms Previously: Yes Quality: aching Location: lumbar spine, thoracic spine and right lower back Radiation: none Exacerbating factors: none Relieving factors: none Associated symptoms: dysuria Treatments prior to arrival: prescription analgesics Related Data Home Medications Medication Instructions Recorded Confirmed allopurinol 100 mg tablet 100 mg PO DAILY 10/31/19 02/24/21 exenatide microspheres 2 mg/0.65 2 mg SUB-Q Q7D 10/31/19 02/24/21 mL subcutaneous pen injector losartan 100 1 tablet PO DAILY 11/11/19 02/24/21 mg-hydrochlorothiazide 12.5 mg tablet pravastatin 20 mg tablet 40 mg PO DAILY tablet 11/11/19 02/24/21 insulin aspart U-100 [Novolog 8 unit SUBCUT QAM 03/01/20 02/24/21 Flexpen U-100 Insulin] insulin aspart U-100 [Novolog 16 unit SUBCUT QNOON 03/01/20 02/24/21 Flexpen U-100 Insulin] insulin aspart U-100 [Novolog 16 unit SUBCUT QPM 03/01/20 02/24/21 Flexpen U-100 Insulin] insulin glargine [Lantus Solostar 30 unit SUBCUT HS 03/01/20 02/24/21 U-100 Insulin] jgqtjbgglabo-ego-ygpy-FA-vit K 1 tablet PO BID 03/01/20 02/24/21 [Adults Multivitamin] verapamil 80 mg PO DAILY 03/01/20 02/24/21 levothyroxine 100 mcg PO DAILY 02/24/21 02/24/21 Allergies Allergy/AdvReac Type Severity Reaction Status Date / Time No Known Allergies Allergy Unknown Verified 10/20/20 09:03 Review of Systems Review of Systems: All systems reviewed & are unremarkable except as noted in HPI and below Constitutional: Constitutional: Denies chills, Denies fever(s) and Denies weakness Eyes: Eyes: Denies change in vision and Denies photophobia ENT: Denies nasal congestion and Denies sore throat Cardiovascular: Cardiovascular: Denies chest pain and Denies radiating jaw, neck or arm pain Respiratory: Respiratory: Denies cough and Denies dyspnea Gastrointestinal: Gastrointestinal: Denies abdominal pain, Denies diarrhea, Denies nausea and Denies vomiting Genitourinary: Genitourinary: Reports as per HPI, Denies hematuria, Denies nocturia and Reports dysuria Musculoskeletal: Musculoskeletal: Reports back pain, Denies arthralgias and Denies joint swelling Integumentary/Breasts: Skin/Breast: Denies pruritus, Denies erythema and Denies rash Neurologic: Denies vertigo, Denies dizziness, Denies syncope, Denies focal weakness and Reports numbness ( Distal lower extremity neuropathy) Hematologic/Lymphatic: Hematologic/Lymphatic: Denies easy bleeding and Denies easy bruising Allergic/Immunologic: Allergic/Immunologic: Denies lip swelling and Denies throat swelling PMFSH Past Medical History Medical History (Updated 02/24/21 @ 22:47 by Salvatore Tripp MD) Anemia Anxiety Arthritis Bilateral knee pain Bleeding nose Chronic headaches Congestion of nasal sinus Depression Diabetes 1.5, managed as type 2 Dizziness Excessive thirst High cholesterol HTN (hypertension) Hypothyroidism Kidney disease Light headedness ISIS (obstructive sleep apnea) Osteoporosis Sleep apnea Urinary frequency UTI (urinary tract infection) Surgical History Surgical History (Updated 02/24/21 @ 21:32 by Salvatore Tripp MD) History of ureter stent Hx of bariatric surgery gastric sleeve F
[2021-02-24 22:18] LABS: Add Urine Microscopic? YES; Appearance Urine Clear (Clear); Bilirubin Urine Negative (Negative); Blood Urine Negative (Negative); Color Urine Light Yellow (Yellow); Glucose Urine UA 3+ (Negative); Ketones Urine Trace (Negative); Leukocyte Esterase Ur Trace (Negative); Nitrate Urine Negative (Negative); Protein Urine Negative (Negative); Urobilinogen Urine 0.2 mg/dL (0.2-1.0)
[2021-02-24 22:23] LABS: Bacteria Urine Trace /hpf; RBC Urine 0-2 /hpf (0-2); Squamous Epithelial Cell Urine Few /hpf (Few)
[2021-02-24 23:02] VITALS: BP 120/74; PULSE 88; RESP 16
[2021-02-24 23:09] VITALS: BP 127/88; PULSE 77; RESP 17; TEMP 36.6; O2SAT 97
== END 2021-02-24 23:14 | disposition home or self-care (01) ==
PROVIDERS: Emergency Provider Emergency Medicine; PCP Internal Medicine
DX: N30.00 Acute cystitis without hematuria (principal); M54.5 Low back pain
CPT/HCPCS: 81001; 87077; 87086; 87088; 87186; 99283

== ENCOUNTER 2021-02-25 12:16 | Outpatient (CLI) | payer MEDICARE, MEDICAID, SELFPAY ==
--- NOTE | 2021-02-25 12:35 | PC.NURSE ---
Pt to [facility] infusion center for mag infusion and B12 injection. A&Ox3. Pt has no questions or complaints. Oriented to area. Call garcia in reach. Reminded to voice needs.
[2021-02-25 12:46] LABS: Magnesium 1.5 mg/dL (1.8-2.4)
[2021-02-25] MEDS: CYANOCOBALAMIN INJ 1,000 MCG/ML VIAL 1000 MCG IM (12:54)
--- NOTE | 2021-02-25 14:16 | PC.NURSE ---
Pt up to BR per self and back to chair. Mag infusion continues. Pt has no complaints.
--- NOTE | 2021-02-25 15:48 | PC.NURSE ---
Medications administered as ordered, patient tolerated well. Has no complaints. Discharged to home ambulatory per self.
== END 2021-02-25 12:17 | disposition home or self-care (01) ==
PROVIDERS: PCP Internal Medicine; Visit Provider Internal Medicine
DX: E83.42 Hypomagnesemia (principal); E53.8 Deficiency of other specified B group vitamins
CPT/HCPCS: 36415; 83735; 96365; 96366; 96372; J3420; J3475; J7050

== ENCOUNTER 2021-03-03 06:30 | Outpatient (CLI) | payer MEDICARE, MEDICAID, SELFPAY ==
--- NOTE | ~2021-03-03 | MR_ITS ---
EXAMINATION: MR elbow LT wo con DATE: 03/03/2021 08:18 INDICATION: Lateral epicondylitis with chronic left elbow pain TECHNIQUE: Magnetic resonance imaging (MRI) of the left elbow was performed without intravenous contr ast. Sequences included coronal, axial, and sagittal PD-weighted FS FSE and coronal, axial, and sagit mari PD-weighted FSE. COMPARISON: Radiograph dated 02/05/2021 FINDINGS: Osseous/other: Normal alignment. Normal marrow signal with no marrow edema, fracture, osteochondral lesion or patho logic marrow replacing process. There is mild osteoarthritis with nonuniform joint space narrowing wi th partial thickness cartilage loss and small marginal osteophytes in all 3 compartments of the left elbow joint. No degenerative subarticular changes. There are couple loose osteochondral bodies at the olecranon fossa, the larger measuring 12 x 6 x 4 mm and which could limit full extension of the elbo w. Additional small loose osteochondral body posterior to the capitellum. Chondrocalcinosis is noted along the articular cartilage on the prior radiographs. Tendons: Triceps, biceps brachii and brachialis tendons are normal. Mild tendinopathy without discrete tear o f the common flexor tendon wad. There is severe tendinopathy of the common extensor tendon wad with l ikely mild partial tear at its lateral epicondylar origin. Dystrophic calcification is seen within th e common extensor tendon wad on the prior radiographs. Ligaments: Dystrophic calcification is seen within the medial and lateral collateral ligament complexes on the p rior radiographs. The medial collateral ligament complex appears normal on the MR images. There is th ickening and mild increased signal without significant surrounding edema involving the radial collate ral and lateral ulnar collateral components of the lateral collateral ligament complex consistent wit h scarring related to chronic sprain/partial tear. Cubital tunnel: Cubital tunnel is unremarkable with no evident impinging osteophytes, masses or fluid collections. Th ere is increased signal in the ulnar nerve proximal to the cubital tunnel but without evident thicken ing of the nerve most likely related to magic angle artifact although cannot exclude a mild uropathy in the setting of cubital tunnel syndrome. Fluid: Physiologic amount of fluid the elbow joint. No bursitis or other abnormal fluid collections. IMPRESSION: 1. Scarring consistent with chronic sprain/partial tear of the radial collateral and lateral ulnar co llateral ligament components of the lateral collateral ligament complex. 2. Severe tendinopathy and mild partial tear at the lateral epicondylar origin of the common extensor tendon wad. 3. Chondrocalcinosis and mild osteoarthritis at the left elbow with a few small loose osteochondral b odies. 4. Mild increased signal in the ulnar nerve proximal to the cubital tunnel but without evident thicke wilfredo of the nerve or impinging lesion at the cubital tunnel most likely related to magic angle artifa ct although cannot exclude mild neuropathy in the setting of cubital tunnel syndrome which is a clini sonido diagnosis. Reviewed, dictated and finalized at location A. IMPRESSION: 1. Scarring consistent with chronic sprain/partial tear of the radial collatera l and lateral ulnar collateral ligament components of the lateral collateral li gament complex. 2. Severe tendinopathy and mild partial tear at the lateral epicondylar origin of the common extensor tendon wad. 3. Chondrocalcinosis and mild osteoarthritis at the left elbow with a few small loose osteochondral bodies. 4. Mild increased signal in the ulnar nerve proximal to the cubital tunnel but without evident thickening of the nerve or impinging lesion at the
== END 2021-03-03 06:31 | disposition home or self-care (01) ==
PROVIDERS: PCP Internal Medicine; Visit Provider Orthopaedic Surgery
DX: M77.12 Lateral epicondylitis, left elbow (principal)
CPT/HCPCS: 73221

== ENCOUNTER 2021-03-29 06:54 | Outpatient (CLI) | payer MEDICARE, SELFPAY ==
[2021-03-29 07:13] LABS: Basophils Absolute Auto 0.08 K/mm3 (0.00-0.10); Basophils Percent Auto 0.7 % (0.0-1.0); Eosinophils Absolute Auto 0.58 K/mm3 (0.02-0.50); Eosinophils Percent Auto 5.3 % (1.0-6.0); Hematocrit 39.3 % (35.0-49.0); Hemoglobin 12.5 g/dL (12.0-15.0); Immature Granulocyte Absolute 0.05 K/mm3 (0.00-0.00); Immature Granulocyte Percent A 0.5 % (0.0-0.0); Lymphocytes Absolute Auto 3.71 K/mm3 (1.10-4.50); Mean Corpuscular HGB Conc 31.8 g/dL (32.0-36.0); Mean Corpuscular Hemoglobin 28.9 pg (27.0-31.0); Mean Platelet Volume 9.3 fl (9.2-11.8); Monocytes Absolute Auto 0.58 K/mm3 (0.10-0.90); Monocytes Percent Auto 5.3 % (2.0-11.0); Neutrophils Absolute Auto 5.9 K/mm3 (1.7-7.2); Neutrophils Percent Auto 54.2 % (50.0-70.0); Platelet Count Result 234 K/mm3 (150-420); Red Blood Count 4.32 M/mm3 (4.20-5.40); White Blood Count 10.9 K/mm3 (4.8-10.8)
[2021-03-29 11:11] LABS: Alanine Aminotransferase 27 U/L (14-59); Albumin Level 3.8 g/dL (3.4-5.0); Alkaline Phosphatase 80 U/L (46-116); Anion Gap 11 mmol/L (8-16); Aspartate Amino Transferase 15 U/L (15-37); Bilirubin,Total 0.5 mg/dL (0.00-1.00); Blood Urea Nitrogen 31 mg/dL (7-18); Calcium 9.7 mg/dL (8.5-10.1); Carbon Dioxide 30 mmol/L (21-32); Chloride 104 mmol/L (98-108); Estimated Glomerular Filt Rate 34; Ferritin 345 ng/mL (8-252); Glucose 101 mg/dL (70-99); Iron 56 ug/dL (50-170); Magnesium 1.3 mg/dL (1.8-2.4); Osmolality Calculated 306 mOsm/kg (285-295); Percent Iron Saturation 19 % (12-57); Phosphorus 4.3 mg/dL (2.6-4.7); Potassium 4.3 mmol/L (3.5-5.1); Sodium 145 mmol/L (136-145); Total Protein 6.9 g/dL (6.4-8.2)
== END 2021-03-29 06:55 | disposition home or self-care (01) ==
PROVIDERS: PCP Internal Medicine
DX: E53.8 Deficiency of other specified B group vitamins (principal); E83.42 Hypomagnesemia; E11.9 Type 2 diabetes mellitus without complications
CPT/HCPCS: 36415; 80053; 82728; 83540; 83550; 83735; 84100; 85025

== ENCOUNTER 2021-03-30 11:47 | Outpatient (CLI) | payer MEDICARE, MEDICAID, SELFPAY ==
--- NOTE | ~2021-03-30 | XR_ITS ---
EXAMINATION: XR hip BI 2V w AP pelvis DATE: 03/30/2021 15:56 INDICATION: Bilateral hip pain. TECHNIQUE: An anteroposterior view of the pelvis and 2 views of each hip were obtained. COMPARISON: Right hip radiographs 03/04/2017 FINDINGS: There is lumbar levocurvature and severe spondylosis. No fracture. There is mild right hip osteoarthritis and moderate left hip osteoarthritis. There are dystrophic calcifications about the hi ps. IMPRESSION: 1. Mild right hip osteoarthritis and moderate left hip osteoarthritis. Reviewed, dictated and finalized at location A.
--- NOTE | ~2021-03-30 | XR_ITS ---
EXAMINATION: XR lumbar spine 2-3V DATE: 03/30/2021 15:56 INDICATION: Low back pain. TECHNIQUE: 3 views of lumbar spine were obtained. COMPARISON: CT abdomen and pelvis 03/01/2020 FINDINGS: There is 8 degrees levocurvature of lumbar spine. Vertebral body heights are normal. There is mildly decreased disc height at L3-L4 and L4-L5. There are endplate osteophytes at most levels. Th ere is multilevel severe facet joint osteoporosis. IMPRESSION: 1. Mild lumbar spondylosis. Reviewed, dictated and finalized at location A. IMPRESSION: 1. Mild lumbar spondylosis.
[2021-03-30 12:05] VITALS: BP 131/45; PULSE 76; RESP 18; TEMP 36.9; O2SAT 98
[2021-03-30 12:06] VITALS: BMI 48.3
[2021-03-30] MEDS: CYANOCOBALAMIN INJ 1,000 MCG/ML VIAL 1000 MCG IM (12:29)
--- NOTE | 2021-03-30 15:15 | PC.NURSE ---
Patient here for monthly IV Magnesium infusion and B12 injection. No concerns. Mag level 1.3. B12 injection and IV Magnesium infusion administered. Tolerated well. Safe exit of hospital. Will return 2020 at 1200.
== END 2021-03-30 11:48 | disposition home or self-care (01) ==
LOC: CHSLAB 11:50 → CHSTREATRM 11:52
PROVIDERS: PCP Internal Medicine; Referring Provider Orthopaedic Surgery; Visit Provider Internal Medicine
DX: E83.42 Hypomagnesemia (principal); E53.8 Deficiency of other specified B group vitamins; M25.552 Pain in left hip; M79.605 Pain in left leg; M16.0 Bilateral primary osteoarthritis of hip; M47.816 Spondylosis without myelopathy or radiculopathy, lumbar region
CPT/HCPCS: 72100; 73521; 96365; 96366; 96372; J3420; J3475; J7050

== ENCOUNTER 2021-04-16 07:49 | Outpatient (CLI) | payer MEDICARE, MEDICAID, SELFPAY ==
--- NOTE | ~2021-04-16 | XR_ITS ---
EXAMINATION: XR lg joint inject/asp w image, XR lg joint inject/asp add DATE: 04/16/2021 10:08 INDICATION: Bilateral hip osteoarthritis TECHNIQUE: A time-out was performed to verify the patient's name, date of , and procedure to b e performed. The procedure including the risks, benefits, and alternatives was discussed with the pat ient. Risks discussed included bleeding, allergic reaction and infection. The patient understood the risks and agreed to proceed. Attention was first turned to the right hip. The skin overlying the righ t hip joint was prepped and draped in usual sterile fashion. Anesthetic was administered with 1% lid ocaine subcutaneously. A 22 G needle was advanced under fluoroscopic guidance into the joint. Injec tion of 1 mL of Omnipaque 240 confirmed intra-articular position of the needle. Subsequently, inject ate consisting of 4 mL of a 1:1 mixture of 0.5% bupivacaine and 40 mg/mL Depo-Medrol for a total dosa ge of 80 mg Depo-Medrol was instilled. Washout of contrast was seen confirming intra-articular admini stration. The needle was removed and the entry site was cleaned and dressed. Attention was then turned to the left hip joint. The skin overlying the right hip joint was prepped a nd draped in usual sterile fashion. Anesthetic was administered with 1% lidocaine subcutaneously. A 22 G needle was advanced under fluoroscopic guidance into the joint. Injection of 1 mL of Omnipaque 240 confirmed intra-articular position of the needle. Subsequently, injectate consisting of 4 mL of a 1:1 mixture of 0.5% bupivacaine and 40 mg/mL Depo-Medrol for a total dosage of 80 mg Depo-Medrol w as instilled. Washout of contrast was seen confirming intra-articular administration. The needle was removed and the entry site was cleaned and dressed. There were no immediate complications. Fluoroscop y exposure time was minutes. The total number of images was . FINDINGS: Real-time fluoroscopy demonstrates the needle and contrast in the right hip joint. Patient' s right hip pain prior to procedure:01/28. Patient's right hip pain following the procedure: 09/30. Subsequent images demonstrate the needle and contrast in the left hip joint. Patient's left hip pain prior to procedure:04/30. Patient's right hip pain following the procedure: 12/28. IMPRESSION: 1. Successful right hip joint injection of local anesthetic and steroid with decrease in the patient' s presenting pain. 2. Successful left hip joint injection of local anesthetic and steroid with decrease in the patient's presenting pain. Reviewed, dictated and finalized at location B. IMPRESSION: 1. Successful right hip joint injection of local anesthetic and steroid with de crease in the patient's presenting pain. 2. Successful left hip joint injection of local anesthetic and steroid with dec rease in the patient's presenting pain.
== END 2021-04-16 07:50 | disposition home or self-care (01) ==
LOC: CHSIMG 07:51
PROVIDERS: PCP Internal Medicine; Visit Provider Orthopaedic Surgery
DX: M16.0 Bilateral primary osteoarthritis of hip (principal)
CPT/HCPCS: 20610; 77002; J1030; Q9965

== ENCOUNTER 2021-04-30 11:26 | Outpatient (CLI) | payer MEDICARE, MEDICAID, SELFPAY ==
[2021-04-30 11:49] LABS: Magnesium 1.4 mg/dL (1.8-2.4)
[2021-04-30] MEDS: CYANOCOBALAMIN INJ 1,000 MCG/ML VIAL 1000 MCG IM (12:03)
[2021-04-30 12:05] VITALS: BMI 46.3
[2021-04-30 12:07] VITALS: BP 113/60; PULSE 72; RESP 16; TEMP 36.3; O2SAT 98
== END 2021-04-30 11:27 | disposition home or self-care (01) ==
LOC: CHSTREATRM 11:30
PROVIDERS: PCP Internal Medicine; Visit Provider Internal Medicine
DX: E83.42 Hypomagnesemia (principal); E53.8 Deficiency of other specified B group vitamins
CPT/HCPCS: 36415; 83735; 96365; 96366; 96372; J3420; J3475; J7050

== ENCOUNTER 2021-05-18 14:53 | Outpatient (CLI) | payer MEDICARE, SELFPAY ==
[2021-05-18 15:11] LABS: Add Urine Microscopic? YES; Appearance Urine Sl Cloudy (Clear); Bilirubin Urine Negative (Negative); Blood Urine Negative (Negative); Color Urine Yellow (Yellow); Glucose Urine UA 1+ (Negative); Ketones Urine Trace (Negative); Leukocyte Esterase Ur Trace (Negative); Nitrate Urine Negative (Negative); Protein Urine Trace (Negative); Specific Grav Ur 1.025 (1.010-1.020); Urobilinogen Urine 0.2 mg/dL (0.2-1.0)
[2021-05-18 15:18] LABS: Bacteria Urine 4+ /hpf; RBC Urine 0-2 /hpf (0-2); Squamous Epithelial Cell Urine Many /hpf (Few)
== END 2021-05-18 14:54 | disposition home or self-care (01) ==
LOC: CHSLAB 14:56
PROVIDERS: PCP Internal Medicine; Visit Provider Internal Medicine
DX: N39.0 Urinary tract infection, site not specified (principal)
CPT/HCPCS: 81001; 87086

== ENCOUNTER 2021-05-24 14:09 | Outpatient (CLI) | payer MEDICARE, SELFPAY ==
[2021-05-24 14:44] LABS: Basophils Percent Auto 0.9 % (0.0-1.0); Eosinophils Absolute Auto 0.56 K/mm3 (0.02-0.50); Eosinophils Percent Auto 5.1 % (1.0-6.0); Hematocrit 40.3 % (35.0-49.0); Hemoglobin 12.6 g/dL (12.0-15.0); Immature Granulocyte Absolute 0.05 K/mm3 (0.00-0.00); Immature Granulocyte Percent A 0.5 % (0.0-0.0); Lymphocytes Absolute Auto 3.26 K/mm3 (1.10-4.50); Lymphocytes Percent Auto 29.4 % (18.0-42.0); Mean Corpuscular HGB Conc 31.3 g/dL (32.0-36.0); Mean Corpuscular Hemoglobin 27.8 pg (27.0-31.0); Mean Corpuscular Volume 88.8 fL (78.0-102.0); Mean Platelet Volume 10.1 fl (9.2-11.8); Monocytes Absolute Auto 0.64 K/mm3 (0.10-0.90); Monocytes Percent Auto 5.8 % (2.0-11.0); Neutrophils Absolute Auto 6.5 K/mm3 (1.7-7.2); Neutrophils Percent Auto 58.3 % (50.0-70.0); Platelet Count Result 265 K/mm3 (150-420); Red Blood Count 4.54 M/mm3 (4.20-5.40); Red Cell Distribution Width 12.7 % (11.6-14.4); White Blood Count 11.1 K/mm3 (4.8-10.8)
[2021-05-24 15:12] LABS: Add Urine Microscopic? YES; Appearance Urine Clear (Clear); Bilirubin Urine Negative (Negative); Blood Urine Negative (Negative); Color Urine Light Yellow (Yellow); Glucose Urine UA 3+ (Negative); Ketones Urine Negative (Negative); Leukocyte Esterase Ur Negative (Negative); Nitrate Urine Negative (Negative); Protein Urine Negative (Negative); Specific Grav Ur 1.015 (1.010-1.020); Urobilinogen Urine 0.2 mg/dL (0.2-1.0); pH Urine 5.5 (5.0-8.0)
[2021-05-24 15:21] LABS: RBC Urine 0-2 /hpf (0-2); Squamous Epithelial Cell Urine Few /hpf (Few); WBC Urine 0-3 /hpf (0-3)
[2021-05-24 15:22] LABS: Bacteria Urine 2+ /hpf
[2021-05-24 15:53] LABS: Alanine Aminotransferase 26 U/L (14-59); Albumin Level 3.6 g/dL (3.4-5.0); Alkaline Phosphatase 87 U/L (46-116); Anion Gap 10 mmol/L (8-16); Aspartate Amino Transferase 16 U/L (15-37); Bilirubin,Total 0.4 mg/dL (0.00-1.00); Blood Urea Nitrogen 40 mg/dL (7-18); CRP 1.3 mg/dL (0.0-0.9); Calcium 9.5 mg/dL (8.5-10.1); Carbon Dioxide 29 mmol/L (21-32); Chloride 104 mmol/L (98-108); Estimated Glomerular Filt Rate 30; Glucose 129 mg/dL (70-99); Osmolality Calculated 307 mOsm/kg (285-295); Potassium 4.2 mmol/L (3.5-5.1); Sodium 143 mmol/L (136-145); Total Protein 6.6 g/dL (6.4-8.2); Uric Acid 6.7 mg/dL (2.6-6.0)
== END 2021-05-24 14:10 | disposition home or self-care (01) ==
LOC: CHSLAB 14:10
PROVIDERS: PCP Internal Medicine; Visit Provider Nurse Practitioner Family
DX: R10.9 Unspecified abdominal pain (principal); M25.551 Pain in right hip
CPT/HCPCS: 36415; 80053; 81001; 84550; 85025; 86140; 87086

== ENCOUNTER 2021-05-25 14:30 | Outpatient (CLI) | payer MEDICARE, MEDICAID, SELFPAY ==
--- NOTE | ~2021-05-25 | US_ITS ---
EXAMINATION: US pelvic complete w TV EXAM DATE: 05/25/2021 15:09 INDICATION: Right lower quadrant pelvic pain. TECHNIQUE: Pelvic transabdominal and transvaginal sonogram was performed. There are multiple graysca le and Doppler images available for interpretation. Correlation is made to CT abdomen pelvis . FINDINGS: The vaginal cuff is unremarkable. Small amount of uterine tissue identified measuring 3.6 x 1.0 x 1.0 cm. This may have a 6 mm endometrial stripe inside which is within normal limits. There is trace free pelvic fluid. Right adnexa: The ovary is not identified. There is no adnexal mass. Left adnexa: The ovary is not identified. There is no adnexal mass. Appendix was searched for but not visualized on this exam. Please note that normal appendix is not e xpected to be visualized by ultrasound. Sometimes an abnormal appendix can be visualized. IMPRESSION: 1. Ovaries, appendix not visualized. 2. Small uterine size. Reviewed, dictated and finalized at location A.
== END 2021-05-25 14:31 | disposition home or self-care (01) ==
LOC: CHSIMG 14:31
PROVIDERS: PCP Internal Medicine; Visit Provider Internal Medicine
DX: R10.31 Right lower quadrant pain (principal); R10.2 Pelvic and perineal pain
CPT/HCPCS: 76830; 76856

== ENCOUNTER 2021-05-28 14:58 | Outpatient (CLI) | payer MEDICARE, MEDICAID, SELFPAY ==
--- NOTE | ~2021-05-28 | US_ITS ---
EXAMINATION: US retroperitoneal comp DATE: 05/28/2021 15:25 INDICATION: Chronic kidney disease. TECHNIQUE: Multiple ultrasound grayscale images of the kidneys were obtained. COMPARISON: CT abdomen and pelvis 03/01/2020 FINDINGS: The right kidney measures 10.8 x 4.7 x 6.3 cm. The left kidney measures 10.4 x 5.2 x 5.5 cm. The kidn eys demonstrate normal parenchymal echogenicity. There are cysts in right kidney measuring up to 2.2 cm. There is mild bilateral hydronephrosis. The bladder is normal. IMPRESSION: 1. Mild bilateral hydronephrosis. Reviewed, dictated and finalized at location A.
== END 2021-05-28 14:59 | disposition home or self-care (01) ==
PROVIDERS: PCP Internal Medicine; Visit Provider Internal Medicine
DX: N18.9 Chronic kidney disease, unspecified (principal)
CPT/HCPCS: 76770

== ENCOUNTER 2021-05-31 08:02 | Outpatient (CLI) | payer MEDICARE, MEDICAID, SELFPAY ==
[2021-05-31 08:13] VITALS: BMI 46.3
[2021-05-31 08:24] VITALS: BP 109/63; PULSE 72; RESP 14; TEMP 36.6; O2SAT 98
[2021-05-31] MEDS: CYANOCOBALAMIN INJ 1,000 MCG/ML VIAL 1000 MCG IM (08:39)
--- NOTE | 2021-05-31 14:07 | PC.NURSE ---
Patient here for monthly B12 injection and Magnesium infusion. No concerns voiced. B12 and Mag administered see OCT. Tolerated well. Safe exit of hospital. Will return in month will call later, has to look at her calendar.
== END 2021-05-31 08:03 | disposition home or self-care (01) ==
LOC: CHSTREATRM 08:05
PROVIDERS: PCP Internal Medicine; Visit Provider Internal Medicine
DX: E83.42 Hypomagnesemia (principal); E53.8 Deficiency of other specified B group vitamins
CPT/HCPCS: 96365; 96366; 96372; J3420; J3475; J7050

== ENCOUNTER 2021-06-04 13:30 | Outpatient (CLI) | payer MEDICARE, MEDICAID, SELFPAY ==
--- NOTE | ~2021-06-04 | CT_ITS ---
EXAMINATION: CT abdomen pelvis wo con DATE: 06/04/2021 14:15 INDICATION: Bilateral hydronephrosis. Right groin pain. TECHNIQUE: Computed tomography (CT) of the abdomen and pelvis was performed without intravenous contr ast. Automated exposure control and iterative reconstruction technique were employed. The dose-length product was 1639.73 mGy-cm. COMPARISON: CT abdomen and pelvis 03/01/2020 FINDINGS: The visualized portions of the lung bases demonstrate a 4 mm nodule in right lower lobe, li adilene benign. No pleural effusion. The heart size is normal. There are coronary artery calcifications. No pericardial effusion. There are changes of gastric sleeve procedure. There are calcifications in the pancreas, consistent with pancreatitis. There is mild chronic anterior wedging of multiple thorac ic vertebral bodies. There is moderate thoracic spondylosis and severe lumbar spondylosis. The liver, gallbladder, spleen, adrenal glands, and left kidney are normal. There is a 2.4 cm cyst in right kid celine. There is mild right hydronephrosis with transition point at the ureteropelvic junction. There is no urolithiasis. There are no dilated loops of bowel. The appendix is normal. There are no pathologi temo enlarged lymph nodes. There is no free intraperitoneal fluid. There is mild chronic anterior we dging of multiple thoracic vertebral bodies. There is moderate thoracic spondylosis and severe lumbar spondylosis. IMPRESSION: 1. Mild right hydronephrosis with transition point at the ureteropelvic junction. Reviewed, dictated and finalized at location A. IMPRESSION: 1. Mild right hydronephrosis with transition point at the ureteropelvic junctio n.
--- NOTE | ~2021-06-04 | XR_ITS ---
EXAMINATION: XR abdomen/kub 1V DATE: 06/04/2021 14:17 INDICATION: Right flank pain. TECHNIQUE: A supine view of the abdomen on 2 radiographs was obtained. COMPARISON: CT abdomen and pelvis 06/04/2021 FINDINGS: There are no dilated loops of bowel. There is no urolithiasis. There are phleboliths in the pelvis. IMPRESSION: 1. No urolithiasis. Reviewed, dictated and finalized at location A. IMPRESSION: 1. No urolithiasis.
== END 2021-06-04 13:31 | disposition home or self-care (01) ==
LOC: ANHIMG 13:36
PROVIDERS: PCP Internal Medicine; Visit Provider Nurse Practitioner Family
DX: N13.30 Unspecified hydronephrosis (principal)
CPT/HCPCS: 74018; 74176

== ENCOUNTER 2021-06-11 07:43 | Outpatient (CLI) | payer MEDICARE, MEDICAID, SELFPAY ==
--- NOTE | ~2021-06-11 | NM_ITS ---
EXAMINATION: LUCRETIA hicks renal scan DATE: 06/11/2021 08:53 INDICATION: Hydronephrosis. TECHNIQUE: 7.8 mCi Tc-99m MAG3 was administered IV. 40 mg furosemide was administered IV immediately afterward. The patient was scanned in the supine position. A posterior abdominal radionuclide angiog nella was obtained. A subsequent time course of static images of the kidneys, ureters, and bladder was obtained. COMPARISON: CT abdomen and pelvis 06/04/2021 FINDINGS: The posterior abdominal radionuclide angiogram and sequential static images show normal siz e, position, and morphology of the kidneys. Peak renal parenchymal uptake was 4 min in right kidney a nd 4 min in left kidney (normal peak 3-5 minutes). The relative early renal uptake was 45% on the ri ght and 55% on the left (<40% is abnormal). No abnormalities of the ureters or bladder are seen. T1/2 for clearance of activity from the right kidney and proximal collecting system was >>20 minutes. T1/2 for clearance of activity from the left kidney and proximal collecting system was >20 minutes. Notes on interpretation: T1/2 <10 minutes is normal, 10-15 minutes is low grade obstruction of questi onable clinical significance, 15-20 minutes is partial obstruction that is likely clinically signific ant, >20 minutes is high grade obstruction. Note that false positives may be seen with supine positio wilfredo, dehydration, severely dilated nonobstructed kidney, atonic collecting system, poor renal functi on, and chronic furosemide use. IMPRESSION: 1. Symmetric kidney function. 2. Delayed contrast clearance from both kidneys, which may be secondary to decreased kidney function . Given the chronic kidney disease, specificity for fixed ureteral obstruction is poor. Reviewed, dictated and finalized at location A. IMPRESSION: 1. Symmetric kidney function. 2. Delayed contrast clearance from both kidneys, which may be secondary to dec reased kidney function. Given the chronic kidney disease, specificity for fixed ureteral obstruction is poor.
== END 2021-06-11 07:44 | disposition home or self-care (01) ==
PROVIDERS: PCP Internal Medicine; Visit Provider Nurse Practitioner Family
DX: N13.30 Unspecified hydronephrosis (principal)
CPT/HCPCS: 78708; A9562; J1940

== ENCOUNTER 2021-06-29 10:34 | Outpatient (CLI) | payer MEDICARE, MEDICAID, SELFPAY ==
[2021-06-29 10:43] VITALS: BMI 46.3
[2021-06-29 11:00] LABS: Magnesium 1.5 mg/dL (1.8-2.4)
[2021-06-29] MEDS: CYANOCOBALAMIN INJ 1,000 MCG/ML VIAL 1000 MCG IM (11:10)
--- NOTE | 2021-06-29 14:31 | PC.NURSE ---
Patient here for monthly IV Magnesium and B12 injection. Mag level 1.5 today. No concerns voiced. Medications administered SEE OCT. Tolerated well. Safe exit of hospital. Will return 2020 at 1100 a.m.
== END 2021-06-29 10:35 | disposition home or self-care (01) ==
LOC: CHSTREATRM 10:38
PROVIDERS: PCP Internal Medicine; Visit Provider Internal Medicine
DX: E83.42 Hypomagnesemia (principal); E53.8 Deficiency of other specified B group vitamins
CPT/HCPCS: 36415; 83735; 96365; 96366; 96372; J3420; J3475; J7050

== ENCOUNTER 2021-07-28 10:48 | Outpatient (CLI) | payer MEDICARE, MEDICAID, SELFPAY ==
[2021-07-28 11:08] VITALS: BP 125/49; PULSE 83; RESP 16; TEMP 36.2; O2SAT 96; BMI 46.3
[2021-07-28] MEDS: CYANOCOBALAMIN INJ 1,000 MCG/ML VIAL 1000 MCG IM (11:22)
[2021-07-28 11:35] LABS: Magnesium 1.2 mg/dL (1.8-2.4)
--- NOTE | 2021-07-30 07:01 | PC.NURSE ---
07/28/2021 1145 Patient was here for IV Magnesium with count 1.2 and B12 injection- monthly. No concerns voiced. B12 and Mag IV administered see OCT. Tolerated well. Safe exit of hospital. Will Return on 08/30/21.
== END 2021-07-28 10:49 | disposition home or self-care (01) ==
LOC: CHSTREATRM 10:52
PROVIDERS: PCP Internal Medicine; Visit Provider Internal Medicine
DX: E53.8 Deficiency of other specified B group vitamins (principal); E83.42 Hypomagnesemia
CPT/HCPCS: 36415; 83735; 96365; 96366; 96372; J3420; J3475; J7050

== ENCOUNTER 2021-08-30 10:46 | Outpatient (CLI) | payer MEDICARE, MEDICAID, SELFPAY ==
[2021-08-30 11:03] VITALS: BMI 46.3
[2021-08-30 11:19] VITALS: BP 124/64; PULSE 72; RESP 16; TEMP 36.9; O2SAT 97
[2021-08-30] MEDS: CYANOCOBALAMIN INJ 1,000 MCG/ML VIAL 1000 MCG IM (11:21)
[2021-08-30 11:27] LABS: Magnesium 1.3 mg/dL (1.8-2.4)
--- NOTE | 2021-08-30 14:26 | PC.NURSE ---
Patient here for monthly B12 injection and Magnesium IV infusion. Magnesium level 1.3. B12 injection administered. IV Magnesium administered see OCT. NO concerns. Tolerated both well. Safe exit of hospital. Will return Sep 30, 2021 at 1100.
== END 2021-08-30 10:47 | disposition home or self-care (01) ==
LOC: CHSTREATRM 10:52
PROVIDERS: PCP Internal Medicine; Visit Provider Internal Medicine
DX: E53.8 Deficiency of other specified B group vitamins (principal); E83.42 Hypomagnesemia
CPT/HCPCS: 36415; 83735; 96365; 96366; 96372; J3420; J3475; J7050

== ENCOUNTER 2021-08-31 13:24 | Outpatient (CLI) | payer MEDICARE, MEDICAID, SELFPAY ==
--- NOTE | ~2021-08-31 | NM_ITS ---
EXAMINATION: LUCRETIA hicks renal scan DATE: 08/31/2021 14:48 INDICATION: Hydronephrosis. TECHNIQUE: 8.1 mCi Tc-99m MAG3 was administered IV. 40 mg furosemide was administered IV immediately afterward. The patient was scanned in the supine position. A posterior abdominal radionuclide angiog nella was obtained. A subsequent time course of static images of the kidneys, ureters, and bladder was obtained. COMPARISON: CT abdomen and pelvis 06/04/2021, renal scan 06/11/2021 FINDINGS: The posterior abdominal radionuclide angiogram and sequential static images show normal siz e, position, and morphology of the kidneys. Peak renal parenchymal uptake was 3 min in right kidney a nd 3 min in left kidney (normal peak 3-5 minutes). The relative early renal uptake was 48% on the ri ght and 52% on the left (<40% is abnormal). No abnormalities of the ureters or bladder are seen. T1/2 for clearance of activity from the right kidney and proximal collecting system was 28 minutes. T1/2 for clearance of activity from the left kidney and proximal collecting system was 14 minutes. Notes on interpretation: T1/2 <10 minutes is normal, 10-15 minutes is low grade obstruction of questi onable clinical significance, 15-20 minutes is partial obstruction that is likely clinically signific ant, >20 minutes is high grade obstruction. Note that false positives may be seen with supine positio wilfredo, dehydration, severely dilated nonobstructed kidney, atonic collecting system, poor renal functi on, and chronic furosemide use. IMPRESSION: 1. Symmetric kidney function. 2. Asymmetrically delayed contrast clearance from right kidney, which may be secondary to fixed obst ruction at the ureteropelvic junction. Specificity is decreased by chronic kidney disease. Reviewed, dictated and finalized at location B. CALL ORDER CLERK IMPRESSION: 1. Symmetric kidney function. 2. Asymmetrically delayed contrast clearance from right kidney, which may be s econdary to fixed obstruction at the ureteropelvic junction. Specificity is dec reased by chronic kidney disease.
== END 2021-08-31 13:25 | disposition home or self-care (01) ==
PROVIDERS: PCP Internal Medicine; Visit Provider Nurse Practitioner Family
DX: N13.30 Unspecified hydronephrosis (principal)
CPT/HCPCS: 78708; A9562; J1940

== ENCOUNTER 2021-09-06 15:28 | Outpatient (CLI) | payer MEDICARE, SELFPAY ==
[2021-09-06 17:49] LABS: Albumin Level 3.7 g/dL (3.4-5.0); Anion Gap 11 mmol/L (8-16); Blood Urea Nitrogen 40 mg/dL (7-18); Calcium 9.7 mg/dL (8.5-10.1); Carbon Dioxide 29 mmol/L (21-32); Chloride 100 mmol/L (98-108); Estimated Glomerular Filt Rate 37; Glucose 209 mg/dL (70-99); Osmolality Calculated 305 mOsm/kg (285-295); Phosphorus 3.8 mg/dL (2.6-4.7); Potassium 3.7 mmol/L (3.5-5.1); Sodium 140 mmol/L (136-145)
== END 2021-09-06 15:29 | disposition home or self-care (01) ==
LOC: CHSLAB 15:30
PROVIDERS: PCP Internal Medicine; Visit Provider Internal Medicine Nephrology
DX: N18.30 Chronic kidney disease, stage 3 unspecified (principal)
CPT/HCPCS: 36415; 80069

== ENCOUNTER 2021-09-30 09:05 | Outpatient (CLI) | payer MEDICARE, MEDICAID, SELFPAY ==
--- NOTE | ~2021-09-30 | US_ITS ---
EXAMINATION: US venous doppler LE RT DATE: 09/30/2021 09:37 INDICATION: Right lower limb swelling TECHNIQUE: Grayscale ultrasound images without and with compression and Doppler ultrasound images of the right lower extremity veins were obtained. COMPARISON: None. FINDINGS: The visualized portions of right common femoral vein, profunda (deep) femoral vein, femoral vein, pop liteal vein, posterior tibial veins, peroneal veins, gastrocnemius vein and greater saphenous vein ou tflow are patent. There is a region of soft tissue swelling with hypoechoic edema interspersed with s ubcutaneous fat at the region of concern at the lateral right calf. IMPRESSION: 1. No deep venous thrombosis in the right lower limb. 2. Small region of focal swelling and edema at the subcutaneous fat at the region of concern. Reviewed, dictated and finalized at location A. TOR ENGINE MECHANIC IMPRESSION: 1. No deep venous thrombosis in the right lower limb. 2. Small region of focal swelling and edema at the subcutaneous fat at the danya on of concern.
[2021-09-30 09:31] LABS: Magnesium 1.4 mg/dL (1.8-2.4)
[2021-09-30 09:55] VITALS: BMI 46.1
[2021-09-30 09:57] VITALS: PULSE 78; RESP 14; TEMP 36.3; O2SAT 98
[2021-09-30] MEDS: CYANOCOBALAMIN INJ 1,000 MCG/ML VIAL 1000 MCG IM (10:01)
== END 2021-09-30 09:06 | disposition home or self-care (01) ==
LOC: CHSTREATRM 09:08
PROVIDERS: PCP Internal Medicine; Visit Provider Internal Medicine
DX: E53.8 Deficiency of other specified B group vitamins (principal); E83.42 Hypomagnesemia; M79.89 Other specified soft tissue disorders
CPT/HCPCS: 36415; 83735; 93971; 96365; 96366; 96372; J3420; J3475; J7050

== ENCOUNTER 2021-10-29 09:56 | Outpatient (CLI) | payer MEDICARE, MEDICAID, SELFPAY ==
[2021-10-29 10:17] VITALS: BMI 46.1
[2021-10-29 10:30] VITALS: BP 138/84; PULSE 84; RESP 14; TEMP 36.6; O2SAT 97
[2021-10-29] MEDS: CYANOCOBALAMIN INJ 1,000 MCG/ML VIAL 1000 MCG IM (10:33)
[2021-10-29 10:39] LABS: Cholesterol 145 mg/dL (0-200); Creatinine Urine 82.46 mg/dL (40-278); HDL Direct 70 mg/dL (40-60); LDL Cholesterol Calculated 51 mg/dL (<130); MALB Creatinine Ratio 39.1 mg/g (0-30); Microalbumin Urine Random 32.3 mg/L; Triglycerides 120 mg/dL (0-150)
--- NOTE | 2021-10-29 12:57 | PC.NURSE ---
Patient here for monthly B12 and IV Magnesium. Mag level 1.0. IV Magnesium and IM Vitamin B12 administered. See MAR. Tolerated well. Will return December 03, 2021 for monthly B12 and IV Magnesium.
== END 2021-10-29 09:57 | disposition home or self-care (01) ==
PROVIDERS: PCP Internal Medicine
DX: E83.42 Hypomagnesemia (principal); E53.8 Deficiency of other specified B group vitamins; E11.65 Type 2 diabetes mellitus with hyperglycemia; Z79.4 Long term (current) use of insulin
CPT/HCPCS: 36415; 80061; 82043; 83735; 96365; 96366; 96372; J3420; J3475; J7050

== ENCOUNTER 2021-11-11 14:03 | Outpatient (CLI) | payer MEDICARE, MEDICAID, SELFPAY ==
--- NOTE | ~2021-11-11 | XR_ITS ---
XR hand RT min 3V DATE: 11/11/2021 14:18 INDICATION: Right hand lump and pain at the anterior distal third and fourth metacarpal areas; limite d range of motion TECHNIQUE: 3 views of right hand COMPARISON: None FINDINGS: There is chondrocalcinosis at the triangular cartilage, radiocarpal and some carpal joints in addition to the first carpometacarpal, first through third metacarpophalangeal joints and proximal interphalangeal joints of the second and third digits. There is osteoarthritis at the first through third metacarpophalangeal joints. No fracture, dislocation, periosteal reaction or bone destruction or erosive change is noted. There is a benign appearing approximately 3.4 mm circumscribed lucency with thin sclerotic rim at the lateral base of the middle phalanx of the third digit. IMPRESSION: Chondrocalcinosis at the triangular cartilage and multiple wrist and hand joints Osteoarthritis at first through third metacarpophalangeal joints Reviewed, dictated and finalized at location A. IMPRESSION: Chondrocalcinosis at the triangular cartilage and multiple wrist an d hand joints Osteoarthritis at first through third metacarpophalangeal joints
== END 2021-11-11 14:04 | disposition home or self-care (01) ==
LOC: CHSIMG 14:06
PROVIDERS: PCP Internal Medicine; Visit Provider Nurse Practitioner Family
DX: R22.31 Localized swelling, mass and lump, right upper limb (principal)
CPT/HCPCS: 73130

== ENCOUNTER 2021-11-29 07:28 | Outpatient (CLI) | payer MEDICARE, MEDICAID, SELFPAY | END 2021-11-29 07:29 | disposition home or self-care (01) | LOC: CHSIMG 07:30 | PROVIDERS: PCP Internal Medicine; Visit Provider Internal Medicine | DX: Z53.8 Procedure and treatment not carried out for other reasons (principal) | CPT/HCPCS: 99199 ==

== ENCOUNTER 2021-12-03 09:53 | Outpatient (CLI) | payer MEDICARE, MEDICAID, SELFPAY ==
[2021-12-03 10:00] VITALS: BMI 46.0
[2021-12-03 10:17] LABS: Magnesium 1.5 mg/dL (1.8-2.4)
[2021-12-03 10:19] VITALS: BP 127/78; PULSE 76; RESP 14; TEMP 36.7; O2SAT 97
[2021-12-03] MEDS: CYANOCOBALAMIN INJ 1,000 MCG/ML VIAL 1000 MCG IM (10:23)
--- NOTE | 2021-12-03 12:39 | PC.NURSE ---
Patient here for Monthly B12 injection and IV Magnesium IV infusion. Mag level 1.5. Education given. No concerns voiced. Vitamin B12 injection and IV Magnesium administered SEE MAR.
--- NOTE | 2021-12-03 13:17 | PC.NURSE ---
Tolerated infusion well. Safe exit of hospital. Will return January 04, 2022 at 1000.K
== END 2021-12-03 09:54 | disposition home or self-care (01) ==
PROVIDERS: PCP Internal Medicine; Visit Provider Internal Medicine
DX: E83.42 Hypomagnesemia (principal); E53.8 Deficiency of other specified B group vitamins
CPT/HCPCS: 36415; 83735; 96365; 96366; 96372; J3420; J3475; J7050

== ENCOUNTER 2021-12-11 23:48 | Emergency (ER) | payer MEDICARE, MEDICAID, SELFPAY ==
--- NOTE | ~2021-12-11 | CT_ITS ---
EXAMINATION: CT abdomen pelvis wo con DATE: 12/12/2021 01:27 INDICATION: Urinary tract infection TECHNIQUE: Computed tomography (CT) of the abdomen and pelvis was performed without intravenous contr ast. Automated exposure control and iterative reconstruction technique were employed. The dose-length product was 1499.45 mGy-cm. COMPARISON: None FINDINGS: 4 mm right lower lobe nodule. No pneumonia, pulmonary edema or pleural effusion. Heart size is normal . No pericardial effusion. Small sliding type hiatal hernia. Postoperative change of prior sleeve gas trectomy there are suture line along the greater curvature. Liver, gallbladder, spleen and bilateral adrenal glands are normal. There are few small pancreatic parenchymal calcifications consistent with sequela of chronic pancreatitis. 2 cm right renal cyst. Persistent mild bilateral hydronephrosis. Jamison ateral ureters are normal. No urolithiasis. Bladder is normal. The uterus is not identified and has l ikely been surgically resected. Bilateral adnexa are unremarkable. Bowels including the appendix are normal. Tiny fat-containing umbilical hernia. No free intraperitoneal gas or fluid. No pathologically enlarged abdominal or pelvic lymphadenopathy. Nodes. Small foci of stranding in the subcutaneous fat in the anterior abdominal wall the right upper quadrant likely related to subcutaneous injections. M oderate thoracic and lumbar spondylosis with chronic mild anterior wedging at T9-T11. IMPRESSION: 1. Persistent mild bilateral hydronephrosis without urolithiasis or other obstructing lesion. No othe r acute intra-abdominal/pelvic process. 2. Small sliding-type hiatal hernia with postoperative change of prior sleeve gastrectomy. Reviewed, dictated and finalized at location A. IMPRESSION: 1. Persistent mild bilateral hydronephrosis without urolithiasis or other obstr ucting lesion. No other acute intra-abdominal/pelvic process. 2. Small sliding-type hiatal hernia with postoperative change of prior sleeve g astrectomy.
[2021-12-11 23:57] VITALS: BP 122/60; PULSE 77; RESP 18; TEMP 36.3; O2SAT 100
--- NOTE | 2021-12-11 23:57 | ED.ABDPAIN ---
HPI - Abdominal Pain General Chief Complaint: Urogenital-Female Stated Complaint: Urinary Issues Time Seen by Provider: 12/11/21 23:58 Source: patient History of Present Illness HPI narrative: 56 year old female with obesity, status post bariatric surgery,diabetes mellitus, dyslipidemia, hypothyroidism, Gout, hypertension, ISIS, anxiety /depression, hydronephrosis status post ureteric stent, arthritis, chronic headache presents to the ER with one day history -- left Inguinal pain. This pain is similar to previous episode when she was diagnosed to have UTI/ hydronephrosis following which she had placement of a ureteral stent. -- No fever or chills. No dysuria or hematuria. No abdominal pain. No nausea / Vomiting. MD elicited complaint: abdominal pain Onset (ago): day(s) ( started yesterday and has gotten progressively worse today) Pain Consistency: constant Location: other ( left inguinal region) Severity: mild Quality: aching Radiation: none Migration to: no migration Exacerbating factors: nothing Relieving factors: nothing Associated symptoms: denies other symptoms Related Data Home Medications Medication Instructions Recorded Confirmed allopurinol 100 mg tablet 100 mg PO DAILY 10/31/19 12/12/21 exenatide microspheres 2 mg/0.65 2 mg SUB-Q Q7D 10/31/19 12/12/21 mL subcutaneous pen injector losartan 100 1 tablet PO DAILY 11/11/19 12/12/21 mg-hydrochlorothiazide 12.5 mg tablet pravastatin 20 mg tablet 40 mg PO DAILY tablet 11/11/19 12/12/21 insulin aspart U-100 [Novolog 8 unit SUBCUT QAM 03/01/20 12/12/21 Flexpen U-100 Insulin] insulin aspart U-100 [Novolog 16 unit SUBCUT QNOON 03/01/20 12/12/21 Flexpen U-100 Insulin] insulin aspart U-100 [Novolog 16 unit SUBCUT QPM 03/01/20 12/12/21 Flexpen U-100 Insulin] insulin glargine [Lantus Solostar 30 unit SUBCUT HS 03/01/20 12/12/21 U-100 Insulin] aokdykxfqhbg-kmv-qtue-FA-vit K 1 tablet PO BID 03/01/20 12/12/21 [Adults Multivitamin] verapamil 80 mg PO DAILY 07/12/20 04/24/22 levothyroxine 100 mcg PO DAILY 02/24/21 12/12/21 Allergies Allergy/AdvReac Type Severity Reaction Status Date / Time No Known Allergies Allergy Unknown Verified 12/12/21 00:15 Review of Systems Review of Systems: All systems reviewed & are unremarkable except as noted in HPI and below Constitutional: Constitutional: Reports as per HPI and Reports no additional constitutional complaints Eyes: Eyes: Reports as per HPI and Reports no additional eye complaints ENT: Reports system reviewed and no additional complaints, except as documented and Reports as per HPI Cardiovascular: Cardiovascular: Reports as per HPI and Reports no additional cardiovascular complaints Respiratory: Respiratory: Reports as per HPI and Reports no additional respiratory complaints Gastrointestinal: Gastrointestinal: Reports as per HPI, Reports no additional gastrointestinal complaints and Reports abdominal pain Genitourinary: Genitourinary: Reports no additional female genitourinary complaints and Reports as per HPI Musculoskeletal: Musculoskeletal: Reports no additional musculoskeletal complaints and Reports as per HPI Integumentary/Breasts: Skin/Breast: Reports system reviewed and no additional complaints, except as docu and Reports as per HPI Neurologic: Reports system reviewed and no additional complaints, except as documented and Reports as per HPI Psychiatric: Psychiatric: Reports no additional psychiatric complaints and Reports as per HPI Endocrine: Endocrine: Reports no additional endocrine complaints and Reports as per HPI Hematologic/Lymphatic: Hematologic/Lymphatic: Reports no additional hematologic/lymphatic complaints and Reports as per HPI Allergic/Immunologic: Allergic/Immunologic: Reports no additional allergic/immunologic complaints and Reports as per HPI [facility] Past Medical History Medical History Anemia Anxiety Arth
[2021-12-12 00:38] LABS: Basophils Absolute Auto 0.11 K/mm3 (0.00-0.10); Basophils Percent Auto 0.8 % (0.0-1.0); Eosinophils Absolute Auto 0.98 K/mm3 (0.02-0.50); Eosinophils Percent Auto 7.2 % (1.0-6.0); Hematocrit 37.4 % (35.0-49.0); Hemoglobin 12.1 g/dL (12.0-15.0); Immature Granulocyte Absolute 0.13 K/mm3 (0.00-0.00); Lymphocytes Absolute Auto 3.93 K/mm3 (1.10-4.50); Lymphocytes Percent Auto 28.7 % (18.0-42.0); Mean Corpuscular HGB Conc 32.4 g/dL (32.0-36.0); Mean Corpuscular Hemoglobin 30.3 pg (27.0-31.0); Mean Corpuscular Volume 93.5 fL (78.0-102.0); Mean Platelet Volume 9.7 fl (9.2-11.8); Monocytes Absolute Auto 0.83 K/mm3 (0.10-0.90); Monocytes Percent Auto 6.1 % (2.0-11.0); Neutrophils Absolute Auto 7.7 K/mm3 (1.7-7.2); Neutrophils Percent Auto 56.2 % (50.0-70.0); Platelet Count Result 257 K/mm3 (150-420); Red Cell Distribution Width 12.5 % (11.6-14.4); White Blood Count 13.7 K/mm3 (4.8-10.8)
[2021-12-12 00:48] LABS: Prothrombin Time 10.4 Seconds (9.50-12.10)
[2021-12-12 00:54] LABS: Alanine Aminotransferase 28 U/L (14-59); Albumin Level 3.8 g/dL (3.4-5.0); Alkaline Phosphatase 95 U/L (46-116); Anion Gap 10 mmol/L (8-16); Aspartate Amino Transferase 18 U/L (15-37); Bilirubin,Total 0.4 mg/dL (0.00-1.00); Blood Urea Nitrogen 35 mg/dL (7-18); Calcium 10.2 mg/dL (8.5-10.1); Carbon Dioxide 31 mmol/L (21-32); Chloride 97 mmol/L (98-108); Estimated CRCL calculation 46 ml/min; Estimated Glomerular Filt Rate 29; Glucose 117 mg/dL (70-99); Lipase 251 U/L (73-393); Osmolality Calculated 295 mOsm/kg (285-295); Potassium 3.1 mmol/L (3.5-5.1); Sodium 138 mmol/L (136-145); Total Protein 7.3 g/dL (6.4-8.2); Troponin I 7.2 ng/L (0.00-60.4)
[2021-12-12 00:57] LABS: Add Urine Microscopic? YES; Appearance Urine Clear (Clear); Bilirubin Urine Negative (Negative); Blood Urine Negative (Negative); Color Urine Yellow (Yellow); Glucose Urine UA 1+ (Negative); Ketones Urine Trace (Negative); Leukocyte Esterase Ur Negative (Negative); Nitrate Urine Negative (Negative); Protein Urine Negative (Negative); Urobilinogen Urine 0.2 mg/dL (0.2-1.0)
[2021-12-12 00:58] LABS: Lactic Acid Reflex 0.8 mmol/L (0.4-2.0)
[2021-12-12 01:05] LABS: Bacteria Urine 1+ /hpf; RBC Urine 0-2 /hpf (0-2); Squamous Epithelial Cell Urine Many /hpf (Few)
[2021-12-12 01:24] LABS: Magnesium 1.7 mg/dL (1.8-2.4)
[2021-12-12] MEDS: POTASSIUM CHLORIDE 20 MEQ TABLET PO (01:27)
[2021-12-12] MEDS: AMOXICILLIN/CLAVULANATE K 875-125 MG TAB 1 TABLET PO (01:28)
[2021-12-12] MEDS: MAGNESIUM OXIDE 400 MG TABLET PO (03:00)
[2021-12-12 03:10] VITALS: BP 125/71; PULSE 69; RESP 18; TEMP 36.7; O2SAT 100
== END 2021-12-12 03:15 | disposition home or self-care (01) ==
PROVIDERS: Emergency Provider Internal Medicine Critical Care Medicine; PCP Internal Medicine
DX: R10.9 Unspecified abdominal pain (principal); N30.00 Acute cystitis without hematuria; E13.9 Other specified diabetes mellitus without complications; I10 Essential (primary) hypertension; E03.9 Hypothyroidism, unspecified
CPT/HCPCS: 36415; 74176; 80053; 81001; 83605; 83690; 83735; 84484; 85025; 85610; 99284; A9270

== ENCOUNTER 2021-12-31 15:05 | Outpatient (CLI) | payer MEDICARE, MEDICAID, SELFPAY ==
--- NOTE | 2021-12-31 15:08 | ECG_ITS ---
Measurements Intervals [place] Rate: 67 P: 35 DE: 159 QRS: -13 QRSD: 95 T: 30 QT: 376 QTc: 398 Interpretive Statements SINUS RHYTHM DELAYED PRECORDIAL R/S TRANSITION BASELINE ARTIFACT- I, II, III, AVR, AVL, AVF BORDERLINE ECG Electronically Signed On 12-31-2021 15:30:44 CDT by Kashif Monroy D.O.
== END 2021-12-31 15:06 | disposition home or self-care (01) ==
LOC: CHSCARD 15:08
PROVIDERS: PCP Internal Medicine; Visit Provider Anesthesiology
DX: I10 Essential (primary) hypertension (principal)
CPT/HCPCS: 93005

== ENCOUNTER 2022-01-03 10:51 | Outpatient (CLI) | payer MEDICARE, MEDICAID, SELFPAY ==
[2022-01-03 11:01] VITALS: BMI 46.0
[2022-01-03 11:13] LABS: Magnesium 1.3 mg/dL (1.8-2.4)
[2022-01-03] MEDS: CYANOCOBALAMIN INJ 1,000 MCG/ML VIAL 1000 MCG IM (11:21)
[2022-01-03 11:25] VITALS: BP 124/77; PULSE 74; RESP 14; TEMP 36.4; O2SAT 97
--- NOTE | 2022-01-03 14:37 | PC.NURSE ---
Patient here for monthly Vitamin B12 injection and IV Magnesium infusion. Mag level 1.3. No concerns voiced. Vitamin B12 injection and IV Magnesium administered see MAR. Tolerated well. Safe exit of hospital. Will return February 07, 2022 at 1030.
== END 2022-01-03 10:52 | disposition home or self-care (01) ==
LOC: CHSTREATRM 10:55
PROVIDERS: PCP Internal Medicine; Visit Provider Internal Medicine
DX: E83.42 Hypomagnesemia (principal); E53.8 Deficiency of other specified B group vitamins
CPT/HCPCS: 36415; 83735; 96365; 96366; 96372; J3420; J3475; J7050

== ENCOUNTER 2022-01-04 01:15 | Day surgery (SDC) | payer MEDICARE, MEDICAID, SELFPAY ==
[2021-12-29 14:22] VITALS: BMI 46.6
--- NOTE | 2021-12-29 14:25 | PC.NURSE ---
Report to the Outpatient Waiting Room, entrance under the green pavilion located off [facility], at time 0800 on date 01/03/22___. OR Time: ____1000___. - You and your visitor will be asked a series of questions to screen for COVID 19 for your protection. - Only one visitor is allowed at this time. - The patient visitor is requested to leave or wait in car when not with patient. - A mask is required within the hospital. Patients may have clear liquids (water, carbonated beverages, clear teas, apple juice) until 3 hours prior to surgery with a maximum of 20 ounces. - No food from midnight until time of surgery - Infants may have breast milk until 4 hours before surgery, formula 6 hours prior to surgery. - Children will be allowed to drink immediately following surgery. If applicable, please bring a bottle or sippy cup to assist with drinking. Juice, water, soda, and popsicles are readily available. For infants on formula, please bring formula the day of surgery. Pacifiers are allowed. Take the following medications with a SIP of water the morning of surgery: ___LEVOTHYROXINE, PROPANOLOL Medications to discontinue per physician ___VITAMINS, SUPPLIMENTS Date to take last dose 01/01/22 Please no make-up, nail kyrgyz, hairspray, perfume, deodorant, or body powder the day of surgery. No jewelry (including any body piercings) or valuables the day of surgery, leave them at home. Please take a shower or bath the night before, or the morning of, surgery with an antibacterial soap. Wear comfortable, loose fitting clothing. Children are encouraged to wear pajamas. - Jewelry must be removed prior to entering the operating room. Rings and piercings that are not removed may be cut off. - The hospital will not accept responsibility for valuables. - Please leave all valuables, including medications, at home the day of surgery. If you are going home after surgery, a licensed tow car driver must drive you home. - NO public transportation without another adult. - We recommend that an adult stay with you for 24 hours following discharge. - We also recommend that you do not drive, make important decision, drink alcoholic beverages, or take any drugs that were not prescribed by your health care provider for at least 24 hours after your discharge time. For Pediatric surgeries, we recommend two adults accompany the child home (only one inside the building at this time). Follow any additional instructions given to you from your surgeon. If you or anyone in your household have experienced Covid symptoms in the past week, please notify your surgeon or the nurse liaison at the phone number below for possible testing. Telephone instructions given to ___PATIENT and asked if any additional questions and then verbalized understanding. Patient advised to call surgeon office or pre surgery nurse liaison [phone] if any additional questions.
[2022-01-04] VITALS (8 sets, daily range): BP systolic 112–143; BP diastolic 54–107; PULSE 70–80; RESP 12–20; TEMP 36.4; O2SAT 95–100; BMI 48.2
[2022-01-04] MEDS: KETOROLAC 15 MG/ML VIAL (*BKC) IV PUSH (07:10)
[2022-01-04] MEDS: ACETAMINOPHEN 500 MG TABLET 1000 MG PO (07:10)
[2022-01-04 07:12] LABS: Glucose Point of Care 87 mg/dl (65-105)
--- NOTE | 2022-01-04 07:24 | WPDHPUPDATE1 ---
History and Physical Update Update Date/Time: 01/04/22 07:25 History and Physical has been reviewed, including an updated exam of the patient. There are NO changes in the patient's condition. Risks, benefits, and alternatives have been discussed and questions answered. Patient agrees to proceed with procedure.
[2022-01-04 07:55] LABS: Partial Thromboplastin Time 31.3 SECONDS (22.3-36.8)
--- NOTE | 2022-01-04 07:57 | WPDANESEPPF ---
Anes - Initial Pre Proc Eval Procedure: Operation Date: 01/04/22 08:30 Proposed Procedures p Right Hand A-1 Jay Release of Third Digit, Left A-1 Jay Injection of Third Digit - Fede Marcelo MD Date/Time: 01/04/22 07:57 Surgeon: Fede Marcelo MD Pre Op Diagnosis: bilateral hand trigger finger third digit Patient Data Age: 56 Gender: F Height: 1.7 m Weight: 135 kg Allergies Allergy/AdvReac Type Severity Reaction Status Date / Time No Known Allergies Allergy Unknown Verified 01/04/22 07:57 Home Medications Medication Instructions Recorded Confirmed Type allopurinol 100 mg tablet 100 mg PO DAILY 10/31/19 01/03/22 History exenatide microspheres 2 mg/0.65 2 mg SUB-Q Q7D 10/31/19 01/03/22 History mL subcutaneous pen injector pravastatin 20 mg tablet 40 mg PO HS tablet 11/11/19 01/03/22 History insulin aspart U-100 [Novolog 2 unit SUBCUT DIRECTED 03/01/20 01/03/22 History Flexpen U-100 Insulin] insulin glargine [Lantus Solostar 20 unit SUBCUT HS 03/01/20 01/03/22 History U-100 Insulin] jkardivimrsj-mqa-bhmv-FA-vit K 1 tablet PO BID 03/01/20 01/03/22 History [Adults Multivitamin] verapamil 80 mg PO HS 03/01/20 01/03/22 History levothyroxine 100 mcg PO DAILY 02/24/21 01/03/22 History duloxetine 20 mg PO HS 12/29/21 01/03/22 History ferrous sulfate 325 mg PO DAILY 12/29/21 01/03/22 History losartan 50 mg PO DAILY 12/29/21 01/03/22 History nutritional supplement-fiber 1 ea PO DAILY 12/29/21 01/03/22 History [Juice Plus] propranolol 60 mg PO DAILY 12/29/21 01/03/22 History cetirizine 10 mg capsule 10 mg PO .hs PRN 90 Days #90 cap 12/30/21 01/03/22 Rx fluticasone propionate 50 1 spray INTRANASAL DAILY 90 Days 12/30/21 01/03/22 Rx mcg/actuation nasal #48 g spray,suspension Laboratory Tests 01/04/22 01/04/22 06:49 07:09 APTT 31.3 SECONDS SECONDS (22.3-36.8) POC Capillary Glucose 87 mg/dl mg/dl (65-105) Patient hx anesthesia problems: none Family hx anesthesia problems: none Results Review: All pre-operative results and documents have been reviewed as part of the pre-operative evaluation. [facility] Past Medical History Medical History Anemia Anxiety Arthritis Bilateral hip pain Bilateral knee pain Bleeding nose Chronic headaches CKD (chronic kidney disease) stage 3, GFR 30-59 ml/min Congestion of nasal sinus Depression Diabetes 1.5, managed as type 2 Dizziness Excessive thirst High cholesterol HTN (hypertension) Hypothyroidism Kidney disease Light headedness ISIS (obstructive sleep apnea) Osteoporosis Sleep apnea Urinary frequency UTI (urinary tract infection) Surgical History Surgical History History of ureter stent Hx of bariatric surgery gastric sleeve Family History Family History Father Diabetes mellitus Hypertension Family history of arthritis Social History Social History (Updated 12/14/21 @ 10:51 by Amber Gibbs MA) Smoking status: Never smoker Alcohol intake: never Substance use: never Living arrangements: with family Gender identity (if verbalized by the patient): Female Anes - Eval Final PreProcedure Day of Procedure 01/04/22 07:57 Patient weight: morbidly obese Heart: regular rate and rhythm Lungs: clear to auscultation Airway: Mallampati scale class III Neurological: alert and oriented Last oral intake: >/= 8 hours ASA classification: IV Anesthetic plan: proceed Anesthesia type and monitoring: general LMA and standard monitoring Results Review: All pre-operative results and documents have been reviewed as part of the pre-operative evaluation. Informed Consent: The patient's anesthetic plan and its attendant risks and benefits were discussed with the patient/family/POA. Questions were solicited and answers provided to t
[2022-01-04] MEDS: LACTATED RINGERS 1,000 ML 30 ML IV CONT ×2 (08:04→09:51)
[2022-01-04] MEDS: ceFAZolin 3 GM/D5W 100 ML 100 ML IVPB (08:45)
--- NOTE | 2022-01-04 08:49 | W.PM.PROC2 ---
Procedure Note - Detailed Date of Procedure 01/04/22 Pre-op Diagnosis bilateral hand trigger finger third digit Post-op Diagnosis Same Procedure Performed RELEASE OF A1 SANTHOSH RIGHT MIDDLE FINGER, INJECTION A1 SANTHOSH LEFT MIDDLE FINGER Surgeon Fede Marcelo MD Anesthesia General Description of Procedure THE PATIENT WAS TAKEN TO THE OR IN STABLE CONDITION. THE RIGHT UPPER EXTREMITY WAS PREPPED AND DRAPED IN THE USUAL STERILE FASHION. THE TOURNIQUET WAS INFLATED. AN INCISION WAS MADE OVER THE MIDDLE FINGER A1 SANTHOSH DOWN THROUGH THE SUBCUTANEOUS TISSUES UNTIL THE A1 SANTHOSH SHEATH WAS VISUALIZED. AN INCISION WAS MADE OVER THE SANTHOSH UNTIL THE FLEXOR TENDON WAS IDENTIFIED. THE INCISION CONTINUED PROXIMALLY AND DISTALLY UNTIL THE SANTHOSH WAS RELEASED AND THE TENDON EXCURSION WAS WITHOUT TRIGGERING. THE TENDON WAS DIRECTLY VISUALIZED AND WAS INTACT. NEXT THE TOURNIQUET WAS DEFLATED AND THE WOUNDS WERE WASHED AND THE BLEEDERS WERE CAUTERIZED. THE SKIN WAS REPAIRED WITH 4-0 NYLON. A STERILE DRESSING WAS APPLIED. NEXT THE LEFT HAND MIDDLE FINGER WAS PREPPED AND THE A1 SANTHOSH WAS INJECTED WITH DEPO MEDROL 0.5 cc 80 MG AND 1 cc LIDOCAINE 1%. THE PATIENT WAS EXTUBATED AND SENT TO RECOVERY ROOM. Estimated Blood Loss 1 Complications No immediate complications Condition Stable Disposition PACU
[2022-01-04] MEDS: LIDOCAINE HCL 1% LOCAL INJ 20 ML VIAL 5 ML INFILTRATE (09:17)
[2022-01-04] MEDS: methylPREDNISolone ACETATE 80 MG/ML VIAL IM (09:20)
[2022-01-04 10:20] LABS: Glucose Point of Care 69 mg/dl (65-105)
[2022-01-04 10:20] LABS: Glucose Point of Care 70 mg/dl (65-105)
== END 2022-01-04 12:20 | disposition home or self-care (01) ==
PROVIDERS: PCP Internal Medicine; Visit Provider Orthopaedic Surgery
PROC: (CPT 26055; principal; 2022-01-04 08:30)
DX: M65.332 Trigger finger, left middle finger (principal); M65.331 Trigger finger, right middle finger; I12.9 Hypertensive chronic kidney disease with stage 1 through stage 4 chronic kidney disease, or unspecified chronic kidney disease; N18.30 Chronic kidney disease, stage 3 unspecified; E13.9 Other specified diabetes mellitus without complications; E03.9 Hypothyroidism, unspecified; D64.9 Anemia, unspecified; F41.8 Other specified anxiety disorders; E78.00 Pure hypercholesterolemia, unspecified; G47.33 Obstructive sleep apnea (adult) (pediatric); M81.0 Age-related osteoporosis without current pathological fracture; Z79.4 Long term (current) use of insulin; Z98.84 Bariatric surgery status; E66.01 Morbid (severe) obesity due to excess calories; Z68.42 Body mass index [BMI] 45.0-49.9, adult
CPT/HCPCS: 26055; 20550; 36415; 82948; 85730; A9270; J0690; J1040; J1100; J1885; J2250; J2370; J2405; J2704; J3010; J7120

== ENCOUNTER 2022-01-10 13:19 | Outpatient (CLI) | payer MEDICARE, SELFPAY ==
--- NOTE | ~2022-01-10 | MM_ITS ---
EXAMINATION: MM screening venkat BI w iram HISTORY: Screening mammogram TECHNIQUE: Craniocaudal and mediolateral oblique 3-D tomosynthesis images were obtained and synthetic 2-D images were generated. CAD analysis was submitted and interpreted. COMPARISON: 11/25/2020 bilateral screening mammogram BREAST PARENCHYMAL COMPOSITION: There are scattered areas of fibroglandular density. FINDINGS: There is no evidence of suspicious mass, calcification, or architectural distortion to sugg est malignancy in either breast. There has been no suspicious interval change. IMPRESSION: 1. No mammographic evidence of malignancy. 2. Recommend routine screening mammography in one year. BI-RADS Category 1: Negative Reviewed, dictated and finalized at location A.
== END 2022-01-10 13:20 | disposition home or self-care (01) ==
LOC: CHSIMG 13:22
PROVIDERS: PCP Internal Medicine; Visit Provider Internal Medicine
DX: Z12.31 Encounter for screening mammogram for malignant neoplasm of breast (principal)
CPT/HCPCS: 77063; 77067

== ENCOUNTER 2022-01-26 15:07 | Outpatient (CLI) | payer MEDICARE, MEDICAID, SELFPAY ==
--- NOTE | ~2022-01-26 | CT_ITS ---
EXAMINATION: CT abdomen pelvis wo con DATE: 01/26/2022 15:43 INDICATION: Right flank pain for 3 days TECHNIQUE: Computed tomography (CT) of the abdomen and pelvis was performed without intravenous contr ast. Automated exposure control and iterative reconstruction technique were employed. Exam dose: 163 5.59 mGy-cm total exam DLP. COMPARISON: 12/12/2021 CT abdomen FINDINGS: There are scattered small pulmonary densities measuring 3 mm or less, likely due to old gra nulomatous disease. No infiltrate or consolidation in the lower lungs. Normal heart size. No pericardial or pleural effusion. Small sliding hiatal hernia. Status post gastric bypass surgery. No hepatic, splenic, pancreatic, adrenal space occupying mass lesion. There are multiple pancreatic calcifications consistent with chronic pancreatitis. No bile duct or pancreatic duct dilatation. Approximately 1.8 cm low attenuation right renal lesion, possibly cyst. Consider ultrasound or MRI f or further evaluation (considering severe shortage of IV contrast material). There is right moderate pelviectasis and mild right hydronephrosis, suggesting right ureteropelvic di sproportion, but stable since 12/08/2021. No urinary tract calculus or hydroureteronephrosis is noted otherwise. The urinary bladder is evacuated. Status post hysterectomy. No evidence of appendicitis. No bowel obstruction or free air. Small fat containing umbilical hernia. There is abdominal aortic calcification, but no aneurysm. No intraperitoneal or retroperitoneal or p elvic mass lesion or lymphadenopathy or ascites. Extensive degenerative changes of the thoracic and lumbar spine. Prominent bilateral hip osteoarthritis. No suspicious osteolytic or osteoblastic lesions are noted. IMPRESSION: Moderate pelviectasis and mild right hydronephrosis, likely due to ureteropelvic disprop ortion, stable since 12/08/2021 No urinary tract calculus Small sliding hiatal hernia Status post gastric bypass surgery Chronic pancreatitis Probable right renal cyst, stable since 12/08/2021 Reviewed, dictated and finalized at Location A. Reviewed, dictated and finalized at location A. IMPRESSION: Moderate pelviectasis and mild right hydronephrosis, likely due to ureteropelvic disproportion, stable since 12/08/2021 No urinary tract calculus Small sliding hiatal hernia Status post gastric bypass surgery Chronic pancreatitis Probable right renal cyst, stable since 12/08/2021
[2022-01-26 15:35] LABS: Anion Gap 5 mmol/L (8-16); Blood Urea Nitrogen 44 mg/dL (7-18); Calcium 9.7 mg/dL (8.5-10.1); Carbon Dioxide 32 mmol/L (21-32); Chloride 103 mmol/L (98-108); Estimated Glomerular Filt Rate 33; Glucose 142 mg/dL (70-99); Osmolality Calculated 303 mOsm/kg (285-295); Potassium 4.5 mmol/L (3.5-5.1); Sodium 140 mmol/L (136-145)
== END 2022-01-26 15:08 | disposition home or self-care (01) ==
LOC: CHSLAB 15:15
PROVIDERS: PCP Internal Medicine; Visit Provider Urology
DX: N13.30 Unspecified hydronephrosis (principal)
CPT/HCPCS: 36415; 74176; 80048

== ENCOUNTER 2022-02-01 09:15 | Outpatient (CLI) | payer MEDICARE, SELFPAY ==
[2022-02-01 10:06] LABS: SARS-CoV-2 RNA PCR Negative (Negative)
== END 2022-02-01 09:16 | disposition home or self-care (01) ==
LOC: CHSLAB 09:16
PROVIDERS: PCP Internal Medicine; Visit Provider Internal Medicine
DX: R05.9 Cough, unspecified (principal); Z20.822 Contact with and (suspected) exposure to COVID-19
CPT/HCPCS: C9803; U0003; U0005

== ENCOUNTER 2022-03-09 12:09 | Outpatient (CLI) | payer MEDICARE, MEDICAID, SELFPAY ==
[2022-03-09] MEDS: CYANOCOBALAMIN INJ 1,000 MCG/ML VIAL 1000 MCG IM (12:30)
[2022-03-09 12:55] VITALS: BMI 47.0
[2022-03-09 12:55] LABS: Magnesium 1.6 mg/dL (1.8-2.4)
[2022-03-09 12:56] VITALS: BP 116/69; PULSE 78; RESP 16; TEMP 36.3; O2SAT 97
--- NOTE | 2022-03-09 15:20 | PC.NURSE ---
Patient here for monthly IV Magnesium infusion and B12 IM injection. Education given. Mag level 1.6. IV Magnesium and IM B12 administered. SEE MAR. Tolerated well. Safe exit of hospital. Will return 2021 at 1100.
== END 2022-03-09 12:10 | disposition home or self-care (01) ==
LOC: CHSTREATRM 12:12
PROVIDERS: PCP Internal Medicine; Visit Provider Internal Medicine
DX: E83.42 Hypomagnesemia (principal); E53.8 Deficiency of other specified B group vitamins
CPT/HCPCS: 36415; 83735; 96365; 96366; 96372; J3420; J3475; J7050

== ENCOUNTER 2022-03-10 12:48 | Outpatient (CLI) | payer MEDICARE, MEDICAID, SELFPAY ==
--- NOTE | ~2022-03-10 | US_ITS ---
US retroperitoneal comp 03/10/2022 13:27 Procedure: Realtime transabdominal ultrasound of the kidneys and bladder. Indication: Possible renal cysts seen on CT. Comparison: 05/28/2021 Findings: Left renal echotexture within normal limits without focal mass or hydronephrosis. There are multiple right renal cysts, largest measuring 2.5 cm. There is mild right hydronephrosis. The right kidney measures 11.5 cm and left kidney measures 10.2 cm. Bladder within normal limits. Impression: 1: Right renal cysts. 2: Mild right hydronephrosis. Reviewed, dictated and finalized at location A. Impression: 1: Right renal cysts. 2: Mild right hydronephrosis.
--- NOTE | ~2022-03-10 | XR_ITS ---
XR ankle RT min 3V DATE: 03/10/2022 13:08 INDICATION: Right ankle generalized pain TECHNIQUE: 3 views COMPARISON: 01/13/2012 right ankle FINDINGS: Old healed distal tibial shaft fracture. There is severe osteoarthritis at the tibiotalar joint, increased in severity since 01/12/2022. Some linear calcifications superior to the anterior process of the talus at the talonavicular joint m ay represent old cortical avulsion fractures. There is spurring at the talonavicular joint. No recent fracture or dislocation of the ankle or disruption of the ankle mortise. Soft tissue swelling of the lower leg and ankle. 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
== END 2022-03-10 12:49 | disposition home or self-care (01) ==
LOC: CHSIMG 12:50
PROVIDERS: PCP Internal Medicine; Visit Provider Urology
DX: N28.1 Cyst of kidney, acquired (principal); M13.871 Other specified arthritis, right ankle and foot
CPT/HCPCS: 73610; 76770

== ENCOUNTER 2022-03-21 14:22 | Outpatient (CLI) | payer MEDICARE, MEDICAID, SELFPAY ==
[2022-03-21 14:51] LABS: Basophils Absolute Auto 0.09 K/mm3 (0.00-0.10); Basophils Percent Auto 0.8 % (0.0-1.0); Eosinophils Percent Auto 6.3 % (1.0-6.0); Hematocrit 35.7 % (35.0-49.0); Hemoglobin 11.5 g/dL (12.0-15.0); Immature Granulocyte Absolute 0.05 K/mm3 (0.00-0.00); Immature Granulocyte Percent A 0.4 % (0.0-0.0); Lymphocytes Absolute Auto 3.31 K/mm3 (1.10-4.50); Lymphocytes Percent Auto 29.6 % (18.0-42.0); Mean Corpuscular HGB Conc 32.2 g/dL (32.0-36.0); Mean Corpuscular Hemoglobin 29.9 pg (27.0-31.0); Mean Corpuscular Volume 92.7 fL (78.0-102.0); Mean Platelet Volume 10.2 fl (9.2-11.8); Monocytes Absolute Auto 0.55 K/mm3 (0.10-0.90); Monocytes Percent Auto 4.9 % (2.0-11.0); Neutrophils Absolute Auto 6.5 K/mm3 (1.7-7.2); Platelet Count Result 252 K/mm3 (150-420); Red Blood Count 3.85 M/mm3 (4.20-5.40); Red Cell Distribution Width 12.5 % (11.6-14.4); White Blood Count 11.2 K/mm3 (4.8-10.8)
[2022-03-21 15:04] LABS: Albumin Level 3.6 g/dL (3.4-5.0); Anion Gap 9 mmol/L (8-16); Blood Urea Nitrogen 40 mg/dL (7-18); Calcium 9.7 mg/dL (8.5-10.1); Carbon Dioxide 30 mmol/L (21-32); Chloride 103 mmol/L (98-108); Estimated Glomerular Filt Rate 33; Glucose 139 mg/dL (70-99); Magnesium 1.7 mg/dL (1.8-2.4); Osmolality Calculated 305 mOsm/kg (285-295); Phosphorus 3.7 mg/dL (2.6-4.7); Potassium 4.1 mmol/L (3.5-5.1); Sodium 142 mmol/L (136-145)
== END 2022-03-21 14:23 | disposition home or self-care (01) ==
PROVIDERS: PCP Internal Medicine
DX: N18.30 Chronic kidney disease, stage 3 unspecified (principal)
CPT/HCPCS: 36415; 80069; 83735; 85025

== ENCOUNTER 2022-03-22 07:57 | Outpatient (CLI) | payer MEDICARE, MEDICAID, SELFPAY ==
--- NOTE | ~2022-03-22 | XR_ITS ---
XR lg joint inject/asp w image DATE: 03/22/2022 09:52 INDICATION: Right and left hip pain, arthritis. TECHNIQUE: The purpose of the procedure (bilateral fluoroscopically guided percutaneous injection of steroid and local anesthetic into hip joints), technique and potential complications were discussed w ith the patient. The patient gave consent. Timeout procedure confirmed proper patient and procedure. For each hip, the skin at the upper anterolateral thigh was prepared with sterile Betadine solution a nd sterile drape. Local anesthetic was administered to the skin and underlying subcutaneous tissues. A 6 inch 22-gauge spinal needle was introduced with fluoroscopic guidance into each hip joint in the region of the femoral neck. Small injection of Omnipaque contrast material revealed intra-articular p osition of the needle on each side. Subsequently, 2 CC of 0.5% bupivacaine and 80 mg methylprednisolo ne was infected into each hip joint space. The patient tolerated the procedure very well, without complaint. IMPRESSION: Bilateral fluoroscopically guided percutaneous hip intraarticular injections of methylpre dnisolone and local anesthetic Reviewed, dictated and finalized at Location A. Reviewed, dictated and finalized at location B. IMPRESSION: Bilateral fluoroscopically guided percutaneous hip intraarticular i njections of methylprednisolone and local anesthetic
--- NOTE | ~2022-03-22 | XR_ITS ---
XR lg joint inject/asp add DATE: 03/22/2022 09:51 INDICATION: Bilateral hip pain. Bilateral hip arthritis. Please refer to 04/11/2022 bilateral hip injection report. IMPRESSION: Bilateral fluoroscopically guided percutaneous intra-articular injection of methylprednis olone and local anesthetic Reviewed, dictated and finalized at Location A. Reviewed, dictated and finalized at location B. IMPRESSION: Bilateral fluoroscopically guided percutaneous intra-articular inje ction of methylprednisolone and local anesthetic
== END 2022-03-22 07:58 | disposition home or self-care (01) ==
LOC: CHSIMG 07:59
PROVIDERS: PCP Internal Medicine; Visit Provider Orthopaedic Surgery
DX: M16.11 Unilateral primary osteoarthritis, right hip (principal); M16.12 Unilateral primary osteoarthritis, left hip
CPT/HCPCS: 20610; 77002; J1030; Q9965

== ENCOUNTER 2022-03-30 08:02 | Outpatient (CLI) | payer MEDICARE, MEDICAID, SELFPAY | END 2022-03-30 08:03 | disposition home or self-care (01) | PROVIDERS: PCP Internal Medicine; Visit Provider Nurse Practitioner Obstetrics & Gynecology | DX: R10.32 Left lower quadrant pain (principal) | CPT/HCPCS: 99199 ==

== ENCOUNTER 2022-03-31 08:18 | Outpatient (CLI) | payer MEDICARE, MEDICAID, SELFPAY ==
--- NOTE | ~2022-03-31 | US_ITS ---
US soft tissue groin LT 03/31/2022 08:56 Indication: Left groin pain. Procedure: Limited soft tissue ultrasound of the left groin Comparison: CT dated 01/26/2022. Findings: Normal heterogeneous soft tissues of the left groin. There are are small normal-appearing l eft inguinal lymph nodes measuring up to 9 mm. No evidence for hernia. Impression: 1: Unremarkable ultrasound of the left groin without evidence for hernia. Reviewed, dictated and finalized at location A. Impression: 1: Unremarkable ultrasound of the left groin without evidence for hernia.
== END 2022-03-31 08:19 | disposition home or self-care (01) ==
LOC: CHSIMG 08:20
PROVIDERS: PCP Internal Medicine; Visit Provider Nurse Practitioner Obstetrics & Gynecology
DX: R22.42 Localized swelling, mass and lump, left lower limb (principal)
CPT/HCPCS: 76882

== ENCOUNTER 2022-04-16 19:07 | Emergency (ER) | payer MEDICARE, MEDICAID, SELFPAY ==
--- NOTE | ~2022-04-16 | CT_ITS ---
EXAMINATION: CT lumbar spine wo con DATE: 04/16/2022 19:53 INDICATION: FALL TODAY AT 1400 HRS. LOWER BACK PAIN. . TECHNIQUE: Computed tomography (CT) of the lumbar spine was performed without intravenous contrast. A utomated exposure control and iterative reconstruction technique were employed. The dose-length produ ct was 1196.16 mGy-cm. COMPARISON: Lumbar spine x-ray 03/30/2021. FINDINGS: 5 nonrib-bearing lumbar-type vertebral bodies. Pedicles intact. Lumbar scoliosis. Mild ante rior wedge deformity at T11, unchanged. Multilevel degenerative disc disease, severe at L4-5 and L5-S 1. Multilevel facet arthropathy. Severe central canal narrowing at L3-4 and L4-5. Severe bilateral fo raminal narrowing at L5-S1. IMPRESSION: No acute fracture or traumatic malalignment in the lumbar spine. Reviewed, dictated and finalized at location K.
--- NOTE | ~2022-04-16 | CT_ITS ---
EXAMINATION: CT pelvis wo con DATE: 04/16/2022 19:53 INDICATION: Fall. Low back pain. TECHNIQUE: Computed tomography (CT) of the pelvis was performed without intravenous contrast. Automat ed exposure control and iterative reconstruction technique were employed. The dose-length product was 955.11 mGy-cm. COMPARISON: CT abdomen and pelvis 01/26/2022 and 03/01/2020 FINDINGS: Surgically absent uterus and appendix. Right ovarian calcifications. Normal mineralization. Stable left iliac lucency. No fracture or dislocation. Mild right and moderate left superior hip harish nt space narrowing with osteophytosis and chondrocalcinosis. Pelvic enthesopathy. Chondrocalcinosis a t the symphysis pubis with mild degenerative change. Atherosclerotic calcification. Uncomplicated sma ll fat-containing umbilical hernia. IMPRESSION: No acute osseous finding in the pelvis Reviewed, dictated and finalized at location K.
[2022-04-16 19:17] VITALS: BP 129/69; PULSE 88; RESP 20; TEMP 36.9; O2SAT 100
[2022-04-16] MEDS: KETOROLAC (*BKC) 60 MG/2 ML VIAL IM (19:51)
--- NOTE | 2022-04-16 20:21 | ED.FALL ---
HPI - Fall General Chief Complaint: Fall Stated Complaint: back pain Time Seen by Provider: 04/16/22 19:11 Source: patient Mode of arrival: ambulatory Limitations: no limitations History of Present Illness MD complaint: fall (with resultant low back pain. no acute head injury.) Onset (ago): hour(s) (5) Fall from: standing Place fall occurred: street Loss of consciousness: none Prolonged down time: no Symptoms prior to fall: none Context: tripped/slipped Location of injury: back Severity: mild Severity scale (1-10): 4 Quality: dull and aching Associated symptoms (after fall): other (back pain) Related Data Home Medications Medication Instructions Recorded Confirmed allopurinol 100 mg tablet 100 mg PO DAILY 10/31/19 04/16/22 exenatide microspheres 2 mg/0.65 2 mg subcut Q7D 10/31/19 04/16/22 mL subcutaneous pen injector ([employer]) pravastatin 20 mg tablet 40 mg PO HS 11/11/19 04/16/22 insulin aspart U-100 100 unit/mL 2 unit subcut DIRECTED 03/01/20 04/16/22 (3 mL) subcutaneous pen (Novolog Flexpen U-100 Insulin aspart) insulin glargine 100 unit/mL (3 20 unit subcut HS 03/01/20 04/16/22 mL) subcutaneous pen (Lantus Solostar U-100 Insulin) multivit with minerals-iron 18 1 tablet PO BID 03/01/20 04/16/22 mg-folic ac 400 mcg-vit K 25 mcg tablet (Adults Multivitamin) verapamil 80 mg tablet 80 mg PO HS 03/01/20 04/16/22 levothyroxine 100 mcg tablet 100 mcg PO DAILY 02/24/21 04/16/22 duloxetine 20 mg capsule,delayed 20 mg PO HS 12/29/21 04/16/22 release sprinkle ferrous sulfate 325 mg (65 mg 325 mg PO DAILY 12/29/21 04/16/22 iron) capsule,extended release losartan 50 mg tablet 50 mg PO DAILY 12/29/21 04/16/22 nutritional supplement-fiber oral 1 ea PO DAILY 12/29/21 04/16/22 liquid propranolol 60 mg capsule,24 60 mg PO DAILY 12/29/21 04/16/22 hr,extended release hydrocodone 7.5 mg-acetaminophen 1 tablet PO Q8H PRN Pain 01/04/22 04/16/22 325 mg tablet Allergies Allergy/AdvReac Type Severity Reaction Status Date / Time No Known Allergies Allergy Unknown Verified 04/01/22 09:51 Review of Systems Review of Systems: All systems reviewed & are unremarkable except as noted in HPI and below Constitutional: Constitutional: Reports no additional constitutional complaints Eyes: Eyes: Reports no additional eye complaints ENT: Reports system reviewed and no additional complaints, except as documented Cardiovascular: Cardiovascular: Reports no additional cardiovascular complaints Respiratory: Respiratory: Reports no additional respiratory complaints Gastrointestinal: Gastrointestinal: Reports no additional gastrointestinal complaints Genitourinary: Genitourinary: Reports no additional female genitourinary complaints Musculoskeletal: Musculoskeletal: Reports back pain Integumentary/Breasts: Skin/Breast: Reports system reviewed and no additional complaints, except as docu Neurologic: Reports system reviewed and no additional complaints, except as documented Psychiatric: Psychiatric: Reports no additional psychiatric complaints Endocrine: Endocrine: Reports no additional endocrine complaints Hematologic/Lymphatic: Hematologic/Lymphatic: Reports no additional hematologic/lymphatic complaints Allergic/Immunologic: Allergic/Immunologic: Reports no additional allergic/immunologic complaints PMFSH Past Medical History Medical History Anemia Anxiety Arthritis Bilateral hip pain Bilateral knee pain Bleeding nose Chronic headaches CKD (chronic kidney disease) stage 3, GFR 30-59 ml/min Congestion of nasal sinus Depression Diabetes 1.5, managed as type 2 Dizziness Excessive thirst High cholesterol HTN (hypertension) Hypothyroidism Kidney disease Light headedness Low back pain ISIS (obstructive sleep apnea) Osteoporosis Sleep apnea Urinary frequency UTI (urinary tract infection) Surgical History Surgical History (Rev
[2022-04-16 20:27] VITALS: BP 128/69; PULSE 82; RESP 18; TEMP 36.6; O2SAT 100
--- NOTE | 2022-04-19 13:39 | PC.NURSE ---
patient called stating she lost her printed prescription for tramadol. dr acosta denies reprinting script. patient just got 90 7.5/325 [place] on 04/13/[address] matthews.
== END 2022-04-16 20:34 | disposition home or self-care (01) ==
PROVIDERS: Emergency Provider Emergency Medicine; PCP Internal Medicine
DX: M54.50 Low back pain, unspecified (principal); E78.00 Pure hypercholesterolemia, unspecified; I12.9 Hypertensive chronic kidney disease with stage 1 through stage 4 chronic kidney disease, or unspecified chronic kidney disease; N18.30 Chronic kidney disease, stage 3 unspecified; M81.0 Age-related osteoporosis without current pathological fracture
CPT/HCPCS: 72131; 72192; 96372; 99284; J1885

== ENCOUNTER 2022-04-19 10:25 | Outpatient (CLI) | payer MEDICARE, MEDICAID, SELFPAY ==
[2022-04-19 11:03] VITALS: BP 106/59; PULSE 64; RESP 14; TEMP 36.4; O2SAT 97
[2022-04-19] MEDS: CYANOCOBALAMIN INJ 1,000 MCG/ML VIAL 1000 MCG IM (11:03)
[2022-04-19 11:04] VITALS: BMI 45.3
--- NOTE | 2022-04-19 13:46 | PC.NURSE ---
Patient here for monthly IV Magnesium and B12 injection. Mag rivera 2.0- Dr. Mendoza still wants to have infusion after call into him. B12 injection and IV Magnesium administered. SEE MAR. Tolerated well. Will return 05/20/22 at 1000 for next month. Safe exit of hospital.
== END 2022-04-19 10:26 | disposition home or self-care (01) ==
LOC: CHSLAB 10:38 → CHSTREATRM 10:41
PROVIDERS: PCP Internal Medicine; Visit Provider Internal Medicine
DX: E83.42 Hypomagnesemia (principal); E53.8 Deficiency of other specified B group vitamins
CPT/HCPCS: 36415; 83735; 96365; 96366; 96372; J3420; J3475; J7050

== ENCOUNTER 2022-05-02 14:41 | Outpatient (CLI) | payer MEDICARE, MEDICAID, SELFPAY ==
--- NOTE | ~2022-05-02 | XR_ITS ---
EXAM: XR ankle RT min 3V DATE: 05/02/2022 15:04 HISTORY: RT ANKLE PAIN,FRQUENT FALLS . COMPARISON: 03/18/2022. FINDINGS: Normal mineralization. Old healed distal tibial fracture. Severe degenerative change at th e tibiotalar joint and multiple midfoot joints. Prominent os trigonum with degenerative change. Achil les and peroneal tendon calcification. IMPRESSION: No acute finding in the right ankle. Severe tibiotalar osteoarthritis. Extensive calcific tendinitis. Reviewed, dictated and finalized at location K. IMPRESSION: No acute finding in the right ankle. Severe tibiotalar osteoarthrit is. Extensive calcific tendinitis.
== END 2022-05-02 14:42 | disposition home or self-care (01) ==
LOC: CHSIMG 14:43
PROVIDERS: PCP Internal Medicine; Visit Provider Orthopaedic Surgery
DX: M25.571 Pain in right ankle and joints of right foot (principal)
CPT/HCPCS: 73610

== ENCOUNTER 2022-05-19 15:32 | Outpatient (CLI) | payer MEDICARE, MEDICAID, SELFPAY ==
[2022-05-19 15:51] LABS: Basophils Percent Auto 0.8 % (0.0-1.0); Eosinophils Absolute Auto 0.92 K/mm3 (0.02-0.50); Eosinophils Percent Auto 7.3 % (1.0-6.0); Hematocrit 35.8 % (35.0-49.0); Hemoglobin 11.7 g/dL (12.0-15.0); Immature Granulocyte Absolute 0.11 K/mm3 (0.00-0.00); Immature Granulocyte Percent A 0.9 % (0.0-0.0); Lymphocytes Absolute Auto 4.24 K/mm3 (1.10-4.50); Lymphocytes Percent Auto 33.4 % (18.0-42.0); Mean Corpuscular HGB Conc 32.7 g/dL (32.0-36.0); Mean Corpuscular Hemoglobin 29.8 pg (27.0-31.0); Mean Corpuscular Volume 91.3 fL (78.0-102.0); Monocytes Absolute Auto 0.66 K/mm3 (0.10-0.90); Monocytes Percent Auto 5.2 % (2.0-11.0); Neutrophils Absolute Auto 6.7 K/mm3 (1.7-7.2); Neutrophils Percent Auto 52.4 % (50.0-70.0); Platelet Count Result 240 K/mm3 (150-420); Red Blood Count 3.92 M/mm3 (4.20-5.40); Red Cell Distribution Width 12.7 % (11.6-14.4); White Blood Count 12.7 K/mm3 (4.8-10.8)
[2022-05-19 16:14] LABS: Alanine Aminotransferase 21 U/L (14-59); Albumin Level 3.6 g/dL (3.4-5.0); Alkaline Phosphatase 91 U/L (46-116); Amylase 64 U/L (25-115); Anion Gap 4 mmol/L (8-16); Aspartate Amino Transferase 18 U/L (15-37); Bilirubin,Total 0.4 mg/dL (0.00-1.00); Blood Urea Nitrogen 43 mg/dL (7-18); CRP 1.1 mg/dL (0.0-0.9); Calcium 9.4 mg/dL (8.5-10.1); Carbon Dioxide 33 mmol/L (21-32); Chloride 105 mmol/L (98-108); Creatine Kinase 56 U/L (26-192); Estimated Glomerular Filt Rate 34; Free T4 Free Thyroxine 1.03 ng/dL (0.76-1.46); Glucose 104 mg/dL (70-99); Lipase 247 U/L (73-393); Magnesium 1.7 mg/dL (1.8-2.4); Osmolality Calculated 304 mOsm/kg (285-295); Potassium 3.9 mmol/L (3.5-5.1); Sodium 142 mmol/L (136-145); Thyroid Stimulating Hormone 1.67 uIU/mL (0.36-3.74); Total Protein 7.2 g/dL (6.4-8.2); Troponin I 7.6 ng/L (0.00-60.4)
== END 2022-05-19 15:33 | disposition home or self-care (01) ==
PROVIDERS: PCP Internal Medicine; Visit Provider Nurse Practitioner Family
DX: E53.8 Deficiency of other specified B group vitamins (principal); E83.42 Hypomagnesemia; R07.9 Chest pain, unspecified; R51.9 Headache, unspecified; I49.9 Cardiac arrhythmia, unspecified
CPT/HCPCS: 36415; 80053; 82150; 82550; 82553; 83690; 83735; 84439; 84443; 84484; 85025; 86140

== ENCOUNTER 2022-05-20 11:12 | Outpatient (CLI) | payer MEDICARE, MEDICAID, SELFPAY ==
[2022-05-20] MEDS: CYANOCOBALAMIN INJ 1,000 MCG/ML VIAL 1000 MCG IM (11:47)
[2022-05-20 11:55] VITALS: BP 103/59; PULSE 70; RESP 14; TEMP 36.8; O2SAT 98
[2022-05-20 11:58] VITALS: BMI 46.9
--- NOTE | 2022-05-20 14:44 | PC.NURSE ---
Patient here for monthly IV Magnesium and IM B12 injection. Mag level 1.7. No concerns voiced on medications. IM B12 and IV Magnesium administered. SEE MAR. Tolerated well. Will return Jun 21, 2022 at 1000. Safe exit of hospital.
--- NOTE | 2022-05-23 11:23 | WPDHOLTEREM ---
Holter/Event Monitor Holter/Event Monitor Date of procedure: 05/20/22 Holter/Event Procedure: 24 Hr Holter Monitor Indications: Irregular heart beat Conclusion: 1. 24 hour holter monitor on 05/20/22. 2. Underlying rhythm is sinus rhythm. HR range 52-103 bpm; average HR 72. 3. There are 9 premature supraventricular complexes. No supraventricular tachycardia. 4. There is 1 ventricular couplet. No ventricular tachycardia. 5. No sinoatrial or atrioventricular blocks. No significant pauses greater than 2 seconds. 6. No symptoms available for correlation.
== END 2022-05-20 11:13 | disposition home or self-care (01) ==
LOC: CHSTREATRM 11:16
PROVIDERS: PCP Internal Medicine; Visit Provider Nurse Practitioner Family
DX: E83.42 Hypomagnesemia (principal); E53.8 Deficiency of other specified B group vitamins; R07.9 Chest pain, unspecified; I49.9 Cardiac arrhythmia, unspecified; R51.9 Headache, unspecified
CPT/HCPCS: 93225; 93226; 96365; 96366; 96372; J3420; J3475; J7050

== ENCOUNTER 2022-06-23 10:28 | Outpatient (CLI) | payer MEDICARE, MEDICAID, SELFPAY ==
[2022-06-23 10:39] VITALS: BMI 46.9
[2022-06-23 10:48] LABS: Basophils Absolute Auto 0.05 K/mm3 (0.00-0.10); Basophils Percent Auto 0.4 % (0.0-1.0); Eosinophils Absolute Auto 0.91 K/mm3 (0.02-0.50); Eosinophils Percent Auto 8.1 % (1.0-6.0); Hemoglobin 11.9 g/dL (12.0-15.0); Immature Granulocyte Absolute 0.05 K/mm3 (0.00-0.00); Immature Granulocyte Percent A 0.4 % (0.0-0.0); Lymphocytes Percent Auto 30.4 % (18.0-42.0); Mean Corpuscular HGB Conc 32.2 g/dL (32.0-36.0); Mean Corpuscular Hemoglobin 29.8 pg (27.0-31.0); Mean Corpuscular Volume 92.7 fL (78.0-102.0); Mean Platelet Volume 9.6 fl (9.2-11.8); Monocytes Absolute Auto 0.56 K/mm3 (0.10-0.90); Neutrophils Absolute Auto 6.2 K/mm3 (1.7-7.2); Neutrophils Percent Auto 55.7 % (50.0-70.0); Platelet Count Result 215 K/mm3 (150-420); Red Blood Count 3.99 M/mm3 (4.20-5.40); Red Cell Distribution Width 12.6 % (11.6-14.4); White Blood Count 11.2 K/mm3 (4.8-10.8)
[2022-06-23 10:58] LABS: Anion Gap 5 mmol/L (8-16); Blood Urea Nitrogen 37 mg/dL (7-18); Calcium 9.4 mg/dL (8.5-10.1); Carbon Dioxide 34 mmol/L (21-32); Chloride 102 mmol/L (98-108); Estimated CRCL calculation 51 ml/min; Estimated Glomerular Filt Rate 32; Glucose 125 mg/dL (70-99); Magnesium 1.4 mg/dL (1.8-2.4); Osmolality Calculated 301 mOsm/kg (285-295); Potassium 4.1 mmol/L (3.5-5.1); Sodium 141 mmol/L (136-145)
[2022-06-23] MEDS: CYANOCOBALAMIN INJ 1,000 MCG/ML VIAL 1000 MCG IM (11:00)
[2022-06-23 11:01] LABS: Prothrombin Time 10.9 Seconds (9.50-12.10)
[2022-06-23 11:02] VITALS: BP 103/58; PULSE 78; RESP 16; TEMP 36.3; O2SAT 98
--- NOTE | 2022-06-23 13:45 | PC.NURSE ---
Patient here for monthly B12 injection and IV Magnesium infusion. Mag level 1.4. No concerns voiced. Vitamin B12 injection and IV Magnesium administered. See MAR. Tolerated well. Safe exit of hospital. Will return 2021 at 1000.
== END 2022-06-23 10:29 | disposition home or self-care (01) ==
PROVIDERS: PCP Internal Medicine; Visit Provider Specialist
DX: E83.42 Hypomagnesemia (principal); E53.8 Deficiency of other specified B group vitamins; R07.9 Chest pain, unspecified; R94.31 Abnormal electrocardiogram [ECG] [EKG]
CPT/HCPCS: 36415; 80048; 83735; 85025; 85610; 96365; 96366; 96372; J3420; J3475; J7050

== ENCOUNTER 2022-07-01 13:49 | Outpatient (CLI) | payer MEDICARE, MEDICAID, SELFPAY ==
[2022-07-01 14:30] LABS: Anion Gap 8 mmol/L (8-16); Blood Urea Nitrogen 40 mg/dL (7-18); Calcium 10.1 mg/dL (8.5-10.1); Carbon Dioxide 34 mmol/L (21-32); Chloride 100 mmol/L (98-108); Estimated Glomerular Filt Rate 29; Glucose 187 mg/dL (70-99); Osmolality Calculated 308 mOsm/kg (285-295); Potassium 4.3 mmol/L (3.5-5.1); Sodium 142 mmol/L (136-145)
== END 2022-07-01 13:50 | disposition home or self-care (01) ==
LOC: CHSLAB 13:51
PROVIDERS: PCP Internal Medicine; Visit Provider Specialist
DX: N18.30 Chronic kidney disease, stage 3 unspecified (principal)
CPT/HCPCS: 36415; 80048

== ENCOUNTER 2022-07-08 12:31 | Outpatient (CLI) | payer MEDICARE, MEDICAID, SELFPAY ==
[2022-07-08 13:16] LABS: Anion Gap 6 mmol/L (8-16); Blood Urea Nitrogen 39 mg/dL (7-18); Calcium 10.4 mg/dL (8.5-10.1); Carbon Dioxide 34 mmol/L (21-32); Chloride 103 mmol/L (98-108); Estimated Glomerular Filt Rate 34; Glucose 104 mg/dL (70-99); Osmolality Calculated 305 mOsm/kg (285-295); Potassium 4.4 mmol/L (3.5-5.1); Sodium 143 mmol/L (136-145)
== END 2022-07-08 12:32 | disposition home or self-care (01) ==
LOC: CHSLAB 12:34
PROVIDERS: PCP Internal Medicine; Visit Provider Specialist
DX: R79.89 Other specified abnormal findings of blood chemistry (principal); Z98.890 Other specified postprocedural states
CPT/HCPCS: 36415; 80048

== ENCOUNTER 2022-07-19 15:44 | Outpatient (CLI) | payer MEDICARE, MEDICAID, SELFPAY ==
[2022-07-24 11:00] LABS: Gliadin AB, IgG <1.0 U/mL (<15.0); TTG IGA AB <1.0 U/mL (<15.0)
== END 2022-07-19 15:45 | disposition home or self-care (01) ==
LOC: CHSLAB 15:46
PROVIDERS: PCP Family Medicine; Visit Provider Nurse Practitioner Family
DX: K52.9 Noninfective gastroenteritis and colitis, unspecified (principal)
CPT/HCPCS: 36415; 83516; 86255

== ENCOUNTER 2022-07-20 09:54 | Outpatient (CLI) | payer MEDICARE, MEDICAID, SELFPAY ==
[2022-07-27 23:08] LABS: Pancreatic Elastase, Stool 488 mcg/g
[2022-07-28 20:48] LABS: Calprotectin, Stool 76 mcg/g
== END 2022-07-20 09:55 | disposition home or self-care (01) ==
PROVIDERS: PCP Family Medicine; Visit Provider Nurse Practitioner Family
DX: K52.9 Noninfective gastroenteritis and colitis, unspecified (principal)
CPT/HCPCS: 82653; 83993; 87045; 87177; 87209; 87269; 87427; 87493

== ENCOUNTER 2022-07-26 08:34 | Outpatient (CLI) | payer MEDICARE, MEDICAID, SELFPAY ==
[2022-07-26 08:42] VITALS: BMI 46.9
[2022-07-26] MEDS: CYANOCOBALAMIN INJ 1,000 MCG/ML VIAL 1000 MCG IM (09:00)
[2022-07-26 09:20] VITALS: BP 111/60; PULSE 72; RESP 14; TEMP 36.6; O2SAT 98
[2022-07-26 09:29] LABS: Magnesium 1.4 mg/dL (1.8-2.4)
--- NOTE | 2022-07-26 14:55 | PC.NURSE ---
07/26/22 1130 Patient here was here for monthly B12 Injection and IV Magnesium. Magnesium count 1.4. No concern voiced. B12 injection and IV Magnesium administered. SEE MAR. Tolerated well. Safe exit hospital. Will return Aug at 8:30 a.m.
== END 2022-07-26 08:35 | disposition home or self-care (01) ==
PROVIDERS: PCP Internal Medicine; Visit Provider Internal Medicine
DX: E53.8 Deficiency of other specified B group vitamins (principal); E83.42 Hypomagnesemia
CPT/HCPCS: 36415; 83735; 96365; 96366; 96372; J3420; J3475; J7050

== ENCOUNTER 2022-08-05 02:11 | Day surgery (SDC) | payer MEDICARE, MEDICAID, SELFPAY ==
[2022-07-27 10:43] VITALS: BMI 47.8
[2022-08-05 11:06] VITALS: BP 143/74; PULSE 95; RESP 20; TEMP 36.4; O2SAT 100
--- NOTE | 2022-08-05 11:10 | WPDHPUPDATE1 ---
History and Physical Update Update Date/Time: 08/05/22 11:10 Patient reports diarrhea improving with antispasmodic medication. Dicyclomine. Previously was diagnosed with irritable bowel syndrome. Colonoscopy today to exclude microscopic colitis. History and Physical has been reviewed, including an updated exam of the patient. There are NO changes in the patient's condition. Risks, benefits, and alternatives have been discussed and questions answered. Patient agrees to proceed with procedure.
[2022-08-05 11:13] LABS: Glucose Point of Care 188 mg/dl (65-105)
[2022-08-05] MEDS: LACTATED RINGERS 1,000 ML 150 ML IV CONT (11:21)
--- NOTE | 2022-08-05 11:28 | WPDANESEPPF ---
Anes - Initial Pre Proc Eval Procedure: Operation Date: 08/05/22 12:30 Proposed Procedures p Colonoscopy - Mohsen James MD Date/Time: 08/05/22 11:28 Surgeon: Mohsen James MD Pre Op Diagnosis: diarrhea Patient Data Age: 56 Gender: F Height: 1.7 m Weight: 135.5 kg Last Vital Signs Temp 97.6 F 08/05/22 11:06 Pulse 95 08/05/22 11:06 Resp 20 08/05/22 11:06 BP 143/74 H 08/05/22 11:06 Pulse Ox 100 08/05/22 11:06 O2 Del Method Room Air 08/05/22 11:06 Allergies Allergy/AdvReac Type Severity Reaction Status Date / Time amoxicillin AdvReac Severe Diarrhea Verified 08/05/22 11:05 metformin AdvReac Severe Diarrhea Uncoded 08/05/22 11:05 Home Medications Medication Instructions Recorded Confirmed Type insulin glargine 100 unit/mL (3 20 unit subcut HS 03/01/20 08/05/22 History mL) subcutaneous pen (Lantus Solostar U-100 Insulin) multivit with minerals-iron 18 1 tablet PO BID 03/01/20 08/05/22 History mg-folic ac 400 mcg-vit K 25 mcg tablet (Adults Multivitamin) ferrous sulfate 325 mg (65 mg 325 mg PO DAILY 12/29/21 08/05/22 History iron) capsule,extended release cetirizine 10 mg capsule (Zyrtec) 10 mg PO .hs PRN allergy symptoms 04/01/22 08/05/22 Rx 90 days #90 caps fluticasone propionate 50 1 spray intranasal DAILY 90 days 04/01/22 08/05/22 Rx mcg/actuation nasal #48 grams spray,suspension dicyclomine 20 mg tablet 20 mg PO QID PRN diarrhea #60 tabs 07/18/22 08/05/22 Rx hydrocodone 5 mg-acetaminophen 325 1 tablet PO Q12H PRN pain #90 tabs 07/18/22 08/05/22 Rx mg tablet insulin aspart U-100 100 unit/mL 15 unit subcut DAILY 07/18/22 08/05/22 History (3 mL) subcutaneous pen (Novolog Flexpen U-100 Insulin aspart) silver sulfadiazine 1 % topical 1 applic topical BID PRN wound 07/18/22 08/05/22 Rx cream healing #20 grams sodium,potassium,mag sulfates 17.5 See Rx Instructions PO .COMPLEX 07/22/22 08/05/22 Rx gram-3.13 gram-1.6 gram oral soln #354 mL (Suprep Bowel Prep Kit) allopurinol 100 mg tablet 100 mg PO DAILY #90 tabs 07/29/22 08/05/22 Rx levothyroxine 100 mcg tablet 100 mcg PO DAILY #90 tabs 07/29/22 08/05/22 Rx losartan 50 mg tablet 50 mg PO DAILY #90 tabs 07/29/22 08/05/22 Rx pravastatin 20 mg tablet 40 mg PO HS #90 tabs 07/29/22 08/05/22 Rx propranolol 60 mg capsule,24 60 mg PO DAILY #90 caps 07/29/22 08/05/22 Rx hr,extended release verapamil 80 mg tablet 120 mg PO HS #90 tabs 07/29/22 08/05/22 Rx Laboratory Tests 08/05/22 11:10 POC Capillary Glucose 188 mg/dl H mg/dl (65-105) Patient hx anesthesia problems: none Family hx anesthesia problems: none Results Review: All pre-operative results and documents have been reviewed as part of the pre-operative evaluation. [facility] Past Medical History Medical History Anemia Anxiety Arthritis Bilateral hip pain Bilateral knee pain Bleeding nose Chronic headaches CKD (chronic kidney disease) stage 3, GFR 30-59 ml/min Congestion of nasal sinus Depression Diabetes 1.5, managed as type 2 Dizziness Excessive thirst High cholesterol HTN (hypertension) Hypothyroidism Kidney disease Light headedness Low back pain ISIS (obstructive sleep apnea) Osteoporosis Sleep apnea Urinary frequency UTI (urinary tract infection) Surgical History Surgical History History of ureter stent Hx of bariatric surgery gastric sleeve Family History Family History Father Diabetes mellitus Hypertension Family history of arthritis Social History Social History Smoking status: Never smoker Alcohol intake: never Substance use: never Lack of Transportation: No Lack of Food: Never True Current Housing: I Have Housing Concerned About Future Housing:
[2022-08-05 12:04] VITALS: BP 116/65; PULSE 96; RESP 17; O2SAT 98
[2022-08-05 12:14] VITALS: BP 125/73; PULSE 92; RESP 25; O2SAT 92
[2022-08-05 12:22] LABS: Glucose Point of Care 183 mg/dl (65-105)
[2022-08-05 12:31] VITALS: BP 107/64; PULSE 96; RESP 25; O2SAT 96
== END 2022-08-05 12:41 | disposition home or self-care (01) ==
PROVIDERS: PCP Family Medicine; Visit Provider Internal Medicine Gastroenterology
PROC: 0DJD8ZZ Inspection of Lower Intestinal Tract, Via Natural or Artificial Opening Endoscopic (ICD-10-PCS; CPT 45378; principal; 2022-08-05 12:30)
DX: Z12.11 Encounter for screening for malignant neoplasm of colon (principal); K64.8 Other hemorrhoids; R19.7 Diarrhea, unspecified; I12.9 Hypertensive chronic kidney disease with stage 1 through stage 4 chronic kidney disease, or unspecified chronic kidney disease; E13.22 Other specified diabetes mellitus with diabetic chronic kidney disease; N18.30 Chronic kidney disease, stage 3 unspecified; E78.00 Pure hypercholesterolemia, unspecified; E03.9 Hypothyroidism, unspecified; G47.33 Obstructive sleep apnea (adult) (pediatric); M81.0 Age-related osteoporosis without current pathological fracture; D64.9 Anemia, unspecified; F41.9 Anxiety disorder, unspecified; F32.A Depression, unspecified; Z79.4 Long term (current) use of insulin; Z79.891 Long term (current) use of opiate analgesic; Z98.84 Bariatric surgery status; E66.01 Morbid (severe) obesity due to excess calories; Z68.42 Body mass index [BMI] 45.0-49.9, adult
CPT/HCPCS: 45380; 82948; 88305; J2704; J7120

== ENCOUNTER 2022-08-18 13:56 | Outpatient (CLI) | payer MEDICARE, MEDICAID, SELFPAY ==
--- NOTE | ~2022-08-18 | XR_ITS ---
EXAMINATION: XR shoulder LT min 2V INDICATION: Left shoulder pain TECHNIQUE: Four views of the left shoulder are submitted. COMPARISON: 03/05/2018 FINDINGS: No fracture is identified. There is moderate glenohumeral and acromioclavicular joint osteo arthritis. Soft tissues are unremarkable. IMPRESSION: 1. Osteoarthritis without acute osseous abnormality. Reviewed, dictated and finalized at location L. [employer] [employer]
== END 2022-08-18 13:57 | disposition home or self-care (01) ==
LOC: CHSIMG 13:58
PROVIDERS: PCP Family Medicine; Visit Provider Nurse Practitioner Family
DX: M25.512 Pain in left shoulder (principal); M19.012 Primary osteoarthritis, left shoulder
CPT/HCPCS: 73030

== ENCOUNTER 2022-08-26 08:25 | Outpatient (CLI) | payer MEDICARE, MEDICAID, SELFPAY ==
--- NOTE | ~2022-08-26 | US_ITS ---
Renal-Bladder ultrasound Clinical History: Renal cyst Technique: Real-time sonographic imaging of the kidneys and urinary bladder was performed. Findings: The right kidney measures 10.9 cm in length and the left kidney measures 10.0 cm. There is no hydronephrosis or renal calculus identified. Renal cortical echogenicity is within normal limits. 2.2 cm right renal cysts noted.. The urinary bladder is partially distended at the time of this exam. No intraluminal echoes are ident ified. No abnormal wall thickening is seen. Impression: 2.2 cm right renal cyst, of no clinical significance. No other significant findings. Reviewed, dictated and finalized at location . AIGN DIRECTOR Impression: 2.2 cm right renal cyst, of no clinical significance. No other significant findings.
== END 2022-08-26 08:26 | disposition home or self-care (01) ==
LOC: CHSIMG 08:27
PROVIDERS: PCP Family Medicine; Visit Provider Urology
DX: N28.1 Cyst of kidney, acquired (principal)
CPT/HCPCS: 76775

== ENCOUNTER 2022-09-15 09:32 | Outpatient (CLI) | payer MEDICARE, MEDICAID, SELFPAY ==
[2022-09-15 09:43] VITALS: BMI 46.9
[2022-09-15 10:03] LABS: Magnesium 1.8 mg/dL (1.8-2.4)
[2022-09-15 10:12] VITALS: BP 103/60; PULSE 64; RESP 14; TEMP 36.6; O2SAT 94
[2022-09-15] MEDS: CYANOCOBALAMIN INJ 1,000 MCG/ML VIAL 1000 MCG IM (10:37)
--- NOTE | 2022-09-15 13:16 | PC.NURSE ---
Patient here for monthly IV Magnesium and B12 injection. Mag level today 1.8. No concerns voiced. B12 IM and IV Magnesium administered. See MAR. Tolerated well. Safe exit of hospital. Will return 10/17/22 at 1000 next month.
== END 2022-09-15 09:33 | disposition home or self-care (01) ==
LOC: CHSLAB 09:34
PROVIDERS: PCP Family Medicine; Visit Provider Family Medicine
DX: D51.9 Vitamin B12 deficiency anemia, unspecified (principal); E83.42 Hypomagnesemia
CPT/HCPCS: 36415; 83735; 96365; 96366; 96372; J3420; J3475; J7050

== ENCOUNTER 2022-10-06 07:47 | Outpatient (CLI) | payer MEDICARE, MEDICAID, SELFPAY ==
--- NOTE | ~2022-10-06 | XR_ITS ---
EXAMINATION: XR lg joint inject/asp w image, XR lg joint inject/asp add DATE: 10/06/2022 09:05 INDICATION: Bilateral hip osteoarthritis presenting with bilateral hip pain. TECHNIQUE: A time-out was performed to verify the patient's name, date of , and procedure to b e performed. The procedure including the risks, benefits, and alternatives was discussed with the pat ient. Risks discussed included bleeding and infection. The patient understood the risks and agreed to proceed. Attention was first turned to the right hip. The skin overlying the right hip joint was pre pped and draped in usual sterile fashion. Anesthetic was administered with 1% lidocaine subcutaneous ly. A 22 G needle was advanced under fluoroscopic guidance into the joint. Injection of 1 mL of Omn ipaque 240 confirmed intra-articular position of the needle. Subsequently, injectate consisting of 4 mL of a 1:1 mixture of 0.5% Marcaine: 40 mg/mL Depo-Medrol for a total dosage of 80 mg Depo-Medrol w as instilled. Washout of contrast was seen confirming intra-articular administration. The needle was removed and the entry site was cleaned and dressed. Attention was then turned to the left hip. The skin overlying the left hip joint was prepped and drap ed in usual sterile fashion. Anesthetic was administered with 1% lidocaine subcutaneously. A 22 G n eedle was advanced under fluoroscopic guidance into the joint. Injection of 1 mL of Omnipaque 240 co nfirmed intra-articular position of the needle. Subsequently, injectate consisting of 4 mL of a 1:1 mixture of 0.5% Marcaine: 40 mg/mL Depo-Medrol for a total dosage of 80 mg Depo-Medrol was instilled. Washout of contrast was seen confirming intra-articular administration. The needle was removed and t he entry site was cleaned and dressed. There were no immediate complications. Fluoroscopy exposure ti me was 0.2 minutes. The total number of images was 5. FINDINGS: Real-time fluoroscopy demonstrates the needle in the right hip joint and subsequently in th e left hip joint. Patient's pain prior to procedure:7/10. Patient's pain following the procedure: 0/ 10. IMPRESSION: 1. Successful left and right hip joint injections of local anesthetic and steroid with decrease in th e patient's presenting pain. Reviewed, dictated and finalized at location A. INSULATION SPRAYER IMPRESSION: 1. Successful left and right hip joint injections of local anesthetic and stero id with decrease in the patient's presenting pain.
== END 2022-10-06 07:48 | disposition home or self-care (01) ==
LOC: CHSIMG 07:48
PROVIDERS: PCP Family Medicine; Visit Provider Orthopaedic Surgery
DX: M16.11 Unilateral primary osteoarthritis, right hip (principal); M16.12 Unilateral primary osteoarthritis, left hip
CPT/HCPCS: 20610; 77002; J1030

== ENCOUNTER 2022-10-20 09:44 | Outpatient (CLI) | payer MEDICARE, MEDICAID, SELFPAY ==
[2022-10-20 09:58] LABS: Basophils Absolute Auto 0.06 K/mm3 (0.00-0.10); Basophils Percent Auto 0.5 % (0.0-1.0); Eosinophils Absolute Auto 0.44 K/mm3 (0.02-0.50); Eosinophils Percent Auto 3.7 % (1.0-6.0); Hematocrit 38.2 % (35.0-49.0); Hemoglobin 12.1 g/dL (12.0-15.0); Immature Granulocyte Absolute 0.09 K/mm3 (0.00-0.00); Immature Granulocyte Percent A 0.8 % (0.0-0.0); Lymphocytes Absolute Auto 3.22 K/mm3 (1.10-4.50); Mean Corpuscular HGB Conc 31.7 g/dL (32.0-36.0); Mean Corpuscular Hemoglobin 29.4 pg (27.0-31.0); Mean Corpuscular Volume 92.7 fL (78.0-102.0); Mean Platelet Volume 9.5 fl (9.2-11.8); Monocytes Absolute Auto 0.59 K/mm3 (0.10-0.90); Monocytes Percent Auto 4.9 % (2.0-11.0); Neutrophils Absolute Auto 7.5 K/mm3 (1.7-7.2); Neutrophils Percent Auto 63.1 % (50.0-70.0); Platelet Count Result 203 K/mm3 (150-420); Red Blood Count 4.12 M/mm3 (4.20-5.40); Red Cell Distribution Width 13.2 % (11.6-14.4); White Blood Count 11.9 K/mm3 (4.8-10.8)
[2022-10-20 10:06] VITALS: BMI 45.5
[2022-10-20 10:14] VITALS: BP 103/59; PULSE 68; RESP 14; TEMP 36.4; O2SAT 98
[2022-10-20 10:22] LABS: Hemoglobin A1C 7.3 % (<5.7)
[2022-10-20 10:26] LABS: Alanine Aminotransferase 31 U/L (14-59); Albumin Level 3.3 g/dL (3.4-5.0); Alkaline Phosphatase 83 U/L (46-116); Anion Gap 6 mmol/L (8-16); Aspartate Amino Transferase 22 U/L (15-37); Bilirubin,Total 0.4 mg/dL (0.00-1.00); Blood Urea Nitrogen 25 mg/dL (7-18); Calcium 8.7 mg/dL (8.5-10.1); Carbon Dioxide 34 mmol/L (21-32); Chloride 103 mmol/L (98-108); Cholesterol 154 mg/dL (0-200); Estimated CRCL calculation 61 ml/min; Estimated Glomerular Filt Rate 42; Free T4 Free Thyroxine 0.98 ng/dL (0.76-1.46); Glucose 128 mg/dL (70-99); HDL Direct 69 mg/dL (40-60); Iron 73 ug/dL (50-170); LDL Cholesterol Calculated 61 mg/dL (<130); Magnesium 1.5 mg/dL (1.8-2.4); Osmolality Calculated 302 mOsm/kg (285-295); Potassium 3.7 mmol/L (3.5-5.1); Sodium 143 mmol/L (136-145); Thyroid Stimulating Hormone 1.57 uIU/mL (0.36-3.74); Total Protein 6.8 g/dL (6.4-8.2); Triglycerides 120 mg/dL (0-150)
[2022-10-20] MEDS: CYANOCOBALAMIN INJ 1,000 MCG/ML VIAL 1000 MCG IM (10:28)
[2022-10-20] MEDS: SODIUM CHLORIDE 0.9% IVPB (10:35)
[2022-10-20] MEDS: MAGNESIUM SULFATE IVPB (10:35)
--- NOTE | 2022-10-20 13:38 | PC.NURSE ---
Patient here for monthly Magnesium infusion and B12 injection. Mag level 1.5. No concerns voiced. Vitamin B12 injection and IV Magnesium infusion administered. SEE MAR. Tolerated well. Safe exit of hospital. Will return November 22, 2022 at 1000.
== END 2022-10-20 09:45 | disposition home or self-care (01) ==
PROVIDERS: PCP Family Medicine; Visit Provider Nurse Practitioner Family
DX: E83.42 Hypomagnesemia (principal); D51.9 Vitamin B12 deficiency anemia, unspecified; E03.9 Hypothyroidism, unspecified; I10 Essential (primary) hypertension; E13.9 Other specified diabetes mellitus without complications; D64.9 Anemia, unspecified; E78.00 Pure hypercholesterolemia, unspecified
CPT/HCPCS: 36415; 80053; 80061; 83036; 83540; 83735; 84439; 84443; 85025; 96365; 96366; 96372; J3475; J7050

== ENCOUNTER 2022-10-25 09:22 | Outpatient (CLI) | payer MEDICARE, MEDICAID, SELFPAY ==
--- NOTE | ~2022-10-25 | DEXA_ITS ---
Bone Density Report Name: MATEUSZ MONROE Age: 57 Sex: Female Ethnicity: White Date of : 1965 Indication: postmenopausal; screening for osteoporosis; inflammatory bowel disease; prior fracture; Referring Provider: Winsome Villalta Study: Bone densitometry was performed. Exam Date: October 25, 2022 Accession number: [id number] Bone Density: Region BMD T-score Z-score Classification AP Spine(L1-L4) 1.607 5.1 6.2 Normal Femoral Neck (Left) 1.514 6.0 7.0 Normal Total Hip (Left) 1.402 3.8 4.4 Normal Femoral Neck (Right) 1.133 2.6 3.6 Normal Total Hip (Right) 1.314 3.1 3.7 Normal Femoral Neck Mean 1.323 4.3 5.3 Normal Total Hip Mean 1.358 3.4 4.1 Normal World Health Organization criteria for BMD impression classify patients as: Normal (T-score at or above -1.0), Osteopenia (T-score between -1.0 and -2.5), or Osteoporosis (T-score at or below -2.5). 10-year Fracture Risk: FRAX not reported because: All T-scores for Spine Total, Hip Total, Femoral Neck at or above -1.0 Clinical Information Provided by Patient: Has had a low trauma fracture Has used the following medications: Vitamin D Has the following medical conditions: Inflammatory bowel diseases Patient maximum height was 67 Drinks caffeinated beverages Number of children 0 Impression: The patient has normal bone mass. The patient has risk factors, including: previous fracture. Discussion: LOW RISK OF FRACTURE; BONE DENSITY IS WELL ABOVE THE MINIMUM DESIRABLE LEVEL AND ABOVE AVERAGE FOR AGE AND SEX AT ALL SKELETAL SITES TESTED. This person's bone density is above expected limits for age and sex. This is rarely clinically significant, but should be pursued if there are significant musculoskeletal complaints. The patient should follow a healthful lifestyle (good nutrition with adequate calcium and vitamin D, and appropriate weight-bearing exercise). Follow-Up: Consider repeating this study in 5 years or sooner if there is some new clinical indication. Reported by: Dr. Osito Beasley on 10/25/2022 10:14:00 AM. Reviewed, dictated and finalized at location A. [facility]
[2022-10-25 16:23] LABS: Strep Group A RT-PCR NOT DETECTED (Negative)
[2022-10-25 16:34] LABS: Influenza A QL RT-PCR Negative (Negative); Influenza B QL RT-PCR Negative (Negative); SARS-CoV-2 RNA PCR Negative (Negative)
== END 2022-10-25 09:23 | disposition home or self-care (01) ==
PROVIDERS: PCP Family Medicine; Visit Provider Nurse Practitioner Family
DX: Z78.0 Asymptomatic menopausal state (principal); Z20.822 Contact with and (suspected) exposure to COVID-19
CPT/HCPCS: 77080; 87636; 87651

== ENCOUNTER 2022-11-02 15:33 | Outpatient (CLI) | payer MEDICARE, MEDICAID, SELFPAY | END 2022-11-02 15:34 | disposition home or self-care (01) | LOC: CHSLAB 15:35 | PROVIDERS: PCP Family Medicine; Visit Provider Nurse Practitioner Family | DX: G89.4 Chronic pain syndrome (principal); Z79.891 Long term (current) use of opiate analgesic | CPT/HCPCS: 36415; 80299; 80307; 80361; G0480 ==

== ENCOUNTER 2022-11-22 09:19 | Outpatient (CLI) | payer MEDICARE, MEDICAID, SELFPAY ==
[2022-11-22 09:50] VITALS: BMI 44.6
[2022-11-22 09:54] VITALS: BP 115/56; PULSE 78; RESP 14; TEMP 36.4; O2SAT 98
[2022-11-22 09:54] LABS: Magnesium 1.3 mg/dL (1.8-2.4)
[2022-11-22] MEDS: MAGNESIUM SULFATE IVPB (10:00)
[2022-11-22] MEDS: SODIUM CHLORIDE 0.9% IVPB (10:00)
[2022-11-22] MEDS: CYANOCOBALAMIN INJ 1,000 MCG/ML VIAL 1000 MCG IM (10:24)
--- NOTE | 2022-11-22 13:29 | PC.NURSE ---
Patient here for monthly B12 injection and IV Magnesium infusion. NO concerns voiced. Education given. IV and injection administered see MAR. Tolerated well. Safe exit of hospital. Will return December 27, 2022 at 1000.
== END 2022-11-22 09:20 | disposition home or self-care (01) ==
PROVIDERS: PCP Family Medicine; Visit Provider Family Medicine
DX: D51.9 Vitamin B12 deficiency anemia, unspecified (principal); E83.42 Hypomagnesemia
CPT/HCPCS: 36415; 83735; 96365; 96366; 96372; J3420; J3475; J7050

== ENCOUNTER 2022-12-16 12:58 | Outpatient (CLI) | payer MEDICARE, MEDICAID, SELFPAY ==
[2022-12-16 13:13] LABS: Basophils Absolute Auto 0.08 K/mm3 (0.00-0.10); Basophils Percent Auto 0.6 % (0.0-1.0); Eosinophils Absolute Auto 0.47 K/mm3 (0.02-0.50); Eosinophils Percent Auto 3.7 % (1.0-6.0); Hemoglobin 12.6 g/dL (12.0-15.0); Immature Granulocyte Absolute 0.05 K/mm3 (0.00-0.00); Immature Granulocyte Percent A 0.4 % (0.0-0.0); Lymphocytes Absolute Auto 3.24 K/mm3 (1.10-4.50); Lymphocytes Percent Auto 25.4 % (18.0-42.0); Mean Corpuscular HGB Conc 32.3 g/dL (32.0-36.0); Mean Corpuscular Hemoglobin 29.2 pg (27.0-31.0); Mean Corpuscular Volume 90.5 fL (78.0-102.0); Mean Platelet Volume 9.9 fl (9.2-11.8); Monocytes Absolute Auto 0.69 K/mm3 (0.10-0.90); Monocytes Percent Auto 5.4 % (2.0-11.0); Neutrophils Absolute Auto 8.2 K/mm3 (1.7-7.2); Neutrophils Percent Auto 64.5 % (50.0-70.0); Platelet Count Result 233 K/mm3 (150-420); Red Blood Count 4.31 M/mm3 (4.20-5.40); White Blood Count 12.8 K/mm3 (4.8-10.8)
[2022-12-16 13:51] LABS: Anion Gap 7 mmol/L (8-16); Blood Urea Nitrogen 33 mg/dL (7-18); Calcium 10.4 mg/dL (8.5-10.1); Carbon Dioxide 34 mmol/L (21-32); Chloride 102 mmol/L (98-108); Estimated Glomerular Filt Rate 33; Glucose 114 mg/dL (70-99); Osmolality Calculated 304 mOsm/kg (285-295); Phosphorus 4.2 mg/dL (2.6-4.7); Potassium 3.9 mmol/L (3.5-5.1); Sodium 143 mmol/L (136-145)
== END 2022-12-16 12:59 | disposition home or self-care (01) ==
LOC: CHSLAB 13:02
PROVIDERS: PCP Family Medicine
DX: N18.30 Chronic kidney disease, stage 3 unspecified (principal)
CPT/HCPCS: 36415; 80069; 85025

== ENCOUNTER 2022-12-26 09:49 | Outpatient (CLI) | payer MEDICARE, MEDICAID, SELFPAY ==
[2022-12-26 10:37] VITALS: BMI 43.1
[2022-12-26] MEDS: CYANOCOBALAMIN INJ 1,000 MCG/ML VIAL 1000 MCG (10:39)
[2022-12-26 10:41] VITALS: BP 100/54; PULSE 78; RESP 14; TEMP 36.4; O2SAT 98
[2022-12-26] MEDS: MAGNESIUM SULFATE IVPB (10:45)
[2022-12-26] MEDS: SODIUM CHLORIDE 0.9% IVPB (10:45)
[2022-12-26 11:01] LABS: Magnesium 1.3 mg/dL (1.8-2.4)
--- NOTE | 2022-12-26 13:39 | PC.NURSE ---
Patient here for monthly B12 injection and IV Magnesium infusion. Mag level today 1.3. No concerns voiced. B12 and IV Magnesium administered see MAR. Tolerated well. Will return 01/30/23 at 1000 next month. Safe exit of hospital per ambulatory per self.
[2022-12-29 15:08] LABS: Albumin 3.9 g/dL (3.8-4.8); Alpha 1 Globulin 0.3 g/dL (0.2-0.3); Alpha 2 Globulin 0.9 g/dL (0.5-0.9); Beta 1 Globulin 0.4 g/dL (0.4-0.6); Gamma Globulin 0.8 g/dL (0.8-1.7); Protein, Total 6.7 g/dL (6.1-8.1)
[2022-12-29 20:07] LABS: Parathyroid Intact 37 pg/mL (14-64)
[2022-12-30 06:53] LABS: Creatinine, Random Urine 141 mg/dL (20-275); Total Protein/Creatinine Ratio 156 mg/g creat (24-184)
[2022-12-30 09:51] LABS: Kappa\\Lambda Light Chains 1.24 (0.26-1.65)
== END 2022-12-26 09:50 | disposition home or self-care (01) ==
LOC: CHSTREATRM 09:53
PROVIDERS: PCP Nurse Practitioner Family
DX: D51.9 Vitamin B12 deficiency anemia, unspecified (principal); E83.42 Hypomagnesemia; E83.52 Hypercalcemia
CPT/HCPCS: 36415; 82570; 83735; 83883; 83970; 84155; 84156; 84165; 84166; 86335; 96365; 96366; 96372; J3420; J3475; J7050

== ENCOUNTER 2023-02-01 17:07 | Outpatient (CLI) | payer MEDICARE, MEDICAID, SELFPAY ==
--- NOTE | ~2023-02-01 | MM_ITS ---
EXAMINATION: MM screening venkat BI w iram HISTORY: Screening mammogram TECHNIQUE: Craniocaudal and mediolateral oblique 3-D tomosynthesis images were obtained and synthetic 2-D images were generated. CAD analysis was submitted and interpreted. COMPARISON: 01/10/2022, 11/25/2020 bilateral screening mammogram examinations BREAST PARENCHYMAL COMPOSITION: There are scattered areas of fibroglandular density. FINDINGS: There is no evidence of suspicious mass, calcification, or architectural distortion to sugg est malignancy in either breast. There has been no suspicious interval change. IMPRESSION: 1. No mammographic evidence of malignancy. 2. Recommend routine screening mammography in one year. BI-RADS Category 1: Negative Reviewed, dictated and finalized at location A.
== END 2023-02-01 17:08 | disposition home or self-care (01) ==
PROVIDERS: PCP Nurse Practitioner Family; Visit Provider Nurse Practitioner Family
DX: Z12.31 Encounter for screening mammogram for malignant neoplasm of breast (principal)
CPT/HCPCS: 77063; 77067

== ENCOUNTER 2023-02-23 09:15 | Outpatient (CLI) | payer MEDICARE, MEDICAID, SELFPAY ==
--- NOTE | 2023-02-23 09:43 | ECG_ITS ---
Measurements Intervals Point Rate: 65 P: 48 GA: 164 QRS: 71 QRSD: 86 T: 32 QT: 387 QTc: 405 Interpretive Statements SINUS RHYTHM DELAYED PRECORDIAL R/S TRANSITION LOW QRS VOLTAGE IN LIMB LEADS BASELINE ARTIFACT- II, III, AVF, V2-V3 BORDERLINE ECG COMPARED TO ECG 12/31/2021 15:25:47 NO SIGNIFICANT CHANGES Electronically Signed On 02-23-2023 11:14:14 CDT by Kashif Monroy D.O.
[2023-02-23 09:47] LABS: Hematocrit 36.6 % (35.0-49.0); Hemoglobin 11.7 g/dL (12.0-15.0)
[2023-02-23 10:02] LABS: INR 0.9; Partial Thromboplastin Time 25.5 SEC (23.90-30.70); Prothrombin Time 10.4 Seconds (9.50-12.10)
[2023-02-23 10:15] LABS: Anion Gap 5 mmol/L (8-16); Blood Urea Nitrogen 25 mg/dL (7-18); Calcium 8.9 mg/dL (8.5-10.1); Carbon Dioxide 32 mmol/L (21-32); Chloride 103 mmol/L (98-108); Estimated Glomerular Filt Rate 41; Glucose 127 mg/dL (70-99); Magnesium 1.2 mg/dL (1.8-2.4); Osmolality Calculated 296 mOsm/kg (285-295); Potassium 3.6 mmol/L (3.5-5.1); Sodium 140 mmol/L (136-145)
== END 2023-02-23 09:16 | disposition home or self-care (01) ==
LOC: CHSLAB 09:17
PROVIDERS: PCP Nurse Practitioner Family; Visit Provider Anesthesiology
DX: Z01.818 Encounter for other preprocedural examination (principal); N28.9 Disorder of kidney and ureter, unspecified; I10 Essential (primary) hypertension; D51.9 Vitamin B12 deficiency anemia, unspecified
CPT/HCPCS: 36415; 80048; 83735; 85014; 85018; 85610; 85730; 93005

== ENCOUNTER 2023-02-24 01:40 | Day surgery (SDC) | payer MEDICARE, MEDICAID, SELFPAY ==
[2023-02-16 11:14] VITALS: BMI 41.6
--- NOTE | 2023-02-16 11:22 | PC.NURSE ---
Report to the Outpatient Waiting Room, entrance under the green pavilion located off [facility], at time 0600 on date 02/24/23. Planned Procedure Time: 0730. Time changes happen often and if your time is changed the preop area will call you the afternoon before. - You and your visitor will be asked to self-screen and do not enter if you have any COVID symptoms. - A mask is optional within the hospital at this time. Patients may have clear liquids (water, carbonated beverages, clear teas, apple juice) until 3 hours prior to surgery with a maximum of 20 ounces. - No food from midnight until time of surgery Take the following medications with a SIP of water the morning of surgery: ISOSORBIDE, LEVOTHYROXINE, PROPRANOLOL DO NOT STOP ANY OF YOUR OTHER PRESCRIPTION MEDICATIONS PRIOR TO SURGERY ?EXCEPT THE FOLLOWING Medications to discontinue per physician: VITAMINS/SUPPLEMENTS Date to take last dose: 02/20/23 Please no make-up, nail taiwanese, hairspray, perfume, deodorant, or body powder the day of surgery. No jewelry (including any body piercings) or valuables the day of surgery, leave them at home. Please take a shower or bath the night before, or the morning of, surgery with an antibacterial soap. Wear comfortable, loose fitting clothing. - Jewelry must be removed prior to entering the operating room. Rings and piercings that are not removed may be cut off. - The hospital will not accept responsibility for valuables. - Please leave all valuables, including medications, at home the day of surgery. If you are going home after surgery, a licensed truck driver teamster must drive you home. - NO public transportation without another adult if you receive anesthesia. - We recommend that an adult stay with you for 24 hours following discharge. - We also recommend that you do not drive, make important decision, drink alcoholic beverages, or take any drugs that were not prescribed by your health care provider for at least 24 hours after your discharge time. Follow any additional instructions given to you from your surgeon. If you or anyone in your household have experienced Covid symptoms in the past week, please notify your surgeon or the nurse liaison at the phone number below for possible testing. Telephone instructions given to PT - MATEUSZ MONROE and asked if any additional questions and then verbalized understanding. Patient advised to call surgeon office or pre surgery nurse liaison [phone] if any additional questions.
[2023-02-24] VITALS (11 sets, daily range): BP systolic 114–135; BP diastolic 68–78; PULSE 73–82; RESP 12–20; TEMP 36–36.3; O2SAT 94–100
[2023-02-24] MEDS: ACETAMINOPHEN 500 MG TABLET 1000 MG PO (06:42)
[2023-02-24] MEDS: LACTATED RINGERS 1,000 ML 30 ML IV CONT ×2 (06:42→10:00)
[2023-02-24 07:03] LABS: Glucose Point of Care 102 mg/dl (65-105)
--- NOTE | 2023-02-24 07:09 | WPDANESEPPF ---
Anes - Initial Pre Proc Eval Procedure: Operation Date: 02/24/23 07:30 Proposed Procedures p Left Elbow Common Extensor Tendon Repair, - Fede Marcelo MD s Left Hand Third Digit A-1 Jay Release - Fede Marcelo MD Date/Time: 02/24/23 07:09 Surgeon: Fede Marcelo MD Pre Op Diagnosis: left elbow tendon rupture, left 3rd trigger finger Patient Data Age: 57 Gender: F Height: 1.7 m Weight: 124 kg Last Vital Signs Temp 97.3 F L 02/24/23 06:00 Pulse 82 02/24/23 06:00 Resp 18 02/24/23 06:00 BP 114/69 02/24/23 06:00 Pulse Ox 100 02/24/23 06:00 O2 Del Method Room Air 02/24/23 06:00 Allergies Allergy/AdvReac Type Severity Reaction Status Date / Time amoxicillin AdvReac Severe Diarrhea Verified 02/24/23 06:01 metformin AdvReac Severe Diarrhea Uncoded 02/24/23 06:01 Home Medications Medication Instructions Recorded Confirmed Type multivit with minerals-iron 18 1 tablet PO BID 03/01/20 02/16/23 History mg-folic ac 400 mcg-vit K 25 mcg tablet (Adults Multivitamin) ferrous sulfate 325 mg (65 mg 325 mg PO DAILY 12/29/21 02/16/23 History iron) capsule,extended release fluticasone propionate 50 1 spray intranasal DAILY 90 days 04/01/22 02/16/23 Rx mcg/actuation nasal #48 grams spray,suspension insulin aspart U-100 100 unit/mL 15 unit subcut DAILY 07/18/22 02/16/23 History (3 mL) subcutaneous pen (Novolog FlexPen U-100 Insulin aspart) levothyroxine 100 mcg tablet 100 mcg PO DAILY #90 tabs 07/29/22 02/16/23 Rx verapamil 80 mg tablet 120 mg PO HS #90 tabs 07/29/22 02/16/23 Rx cetirizine 10 mg capsule (Zyrtec) 10 mg PO .hs PRN allergy symptoms 09/30/22 02/16/23 Rx 90 days #90 caps semaglutide 1 mg/dose (2 mg/1.5 1 mg subcut WEEKLY 09/30/22 02/16/23 History mL) subcutaneous pen injector (Ozempic) cholecalciferol (vitamin D3) 25 25 mcg PO DAILY 10/18/22 02/16/23 History mcg (1,000 unit) capsule dapagliflozin propanediol 10 mg 10 mg PO DAILY 10/18/22 02/16/23 History tablet (Farxiga) isosorbide mononitrate 30 mg 30 mg PO DAILY 10/18/22 02/16/23 History tablet,extended release 24 hr magnesium oxide 250 mg PO DAILY 10/18/22 02/16/23 History hydrocodone 7.5 mg-acetaminophen 1 tablet PO Q8H PRN pain #90 tabs 10/27/22 02/16/23 Rx 325 mg tablet losartan 50 mg tablet See Rx Instructions .Route 12/15/22 02/16/23 Rx .COMPLEX #100 tabs dicyclomine 20 mg tablet 20 mg PO QID PRN diarrhea #60 tabs 12/20/22 02/16/23 Rx allopurinol 100 mg tablet See Rx Instructions .Route 01/17/23 02/16/23 Rx .COMPLEX #100 tabs pravastatin 20 mg tablet See Rx Instructions .Route 01/17/23 02/16/23 Rx .COMPLEX #100 tabs propranolol 60 mg capsule,24 See Rx Instructions .Route 01/17/23 02/16/23 Rx hr,extended release .COMPLEX #100 caps vitamin B complex 1 tablet PO DAILY 02/16/23 02/16/23 History chlorhexidine gluconate 4 % 1 applic topical DAILY #237 mL 02/17/23 Rx topical liquid (Hibiclens) Laboratory Tests 02/24/23 07:01 POC Capillary Glucose 102 mg/dl (65-105) Patient hx anesthesia problems: post op nausea/vomiting Family hx anesthesia problems: none Results Review: All pre-operative results and documents have been reviewed as part of the pre-operative evaluation. [facility] Past Medical History Medical History Anemia Anxiety Arthritis Bilateral hip pain Bilateral knee pain Bleeding nose Chronic headaches CKD (chronic kidney disease) stage 3, GFR 30-59 ml/min Congestion of nasal sinus Depression Diabetes 1.5, managed as type 2 Dizziness Excessive thirst High cholesterol HTN (hypertension) Hypothyroidism Kidney disease Light headedness Low back pain ISIS (obstructive sleep apnea) Osteoporosis Sleep apnea Urinary frequency UTI (urinary tract infection) Surgical History Surgical History History of carpal tunne
--- NOTE | 2023-02-24 07:13 | WPDHPUPDATE1 ---
History and Physical Update Update Date/Time: 02/24/23 07:13 History and Physical has been reviewed, including an updated exam of the patient. There are NO changes in the patient's condition. Risks, benefits, and alternatives have been discussed and questions answered. Patient agrees to proceed with procedure.
[2023-02-24] MEDS: ceFAZolin 3 GM/D5W 100 ML 100 ML IVPB (07:29)
[2023-02-24] MEDS: BUPivacaine HCL 0.5% PF 30 ML VIAL INFILTRATE (08:07)
--- NOTE | 2023-02-24 09:23 | P.OP_ITS ---
Procedure Note - Detailed Date of Procedure 02/24/23 Pre-op Diagnosis left elbow tendon rupture, left 3rd trigger finger Post-op Diagnosis Same Procedure Performed LEFT TENNIS ELBOW RELEASE WITH COMMON EXTENSOR TENDON REPAIR, LEFT MIDDLE FINGER A1 SANTHOSH RELEASE Surgeon Fede Marcelo MD Anesthesia General Description of Procedure PATIENT WAS TAKEN TO THE OR AND INTUBATED. THE LEFT UPPER EXTREMITY WAS PREPPED AND DRAPED STERILE FROM THE FINGERS TO MID ARM. THE INCISION WAS MADE AT THE LATERAL EPICONDYLE DOWN TO THE SUB CUTANEOUS TISSUES THEN TO THE FASCIA. THE COMMON EXTENSOR TENDON WAS EXPOSED. THERE WAS A THIN AMOUNT OF TENDON WITH A NEAR COMPLETE TEAR AT THE ORIGIN SITE. THE TENDON WAS DEBRIDED DOWN TO BLEEDING BONE. THE TISSUE WAS EXCISED TO GOOD TENDON MATERIAL. 3 MITEK SUTURE ANCHORS WITH 2-0 SUTURE WERE INSERTED AT THE LATERAL EPICONDYLE THEN THE TENDON WAS ATTACHED BACK TO THE BONE. THE REPAIR WAS EXCELLENT. THE WOUND WAS WASHED. 3- 0 VICRYL WAS USED TO APPROXIMATE THE FASCIA AND THE SUB CUTANEOUS TISSUES. 3-0 MONOCRYL WAS USED A SUB CUTICULAR STITCH AND DERMABOND WAS USED ON THE SKIN. STERILE DRESSING WAS APPLIED. NEXT THE LEFT MIDDLE FINGER A1 SANTHOSH WAS IDENTIFIED. AN INCISION WAS MADE OVER THE PALM AT THE A1 SANTHOSH SITE. DISSECTION CONTINUED THROUGH THE SUBCUTANEOUS TISSUE UNTIL THE A1 SANTHOSH WAS IDENTIFIED. AN INCISION WAS MADE OVER THE SANTHOSH UNTIL THERE WAS A COMPLETE RELEASE. THE FLEXOR TENDONS WERE VISUALIZED AND INTACT. THE TOURNIQUET WAS DEFLATED. BLEEDERS WERE CAUTERIZED. THE SKIN WAS APPROXIMATED WITH 4-0 NYLON. STERILE DRESSING WAS APPLIED PATIENT WAS EXTUBATED. Estimated Blood Loss 5 Complications No immediate complications Condition Stable Disposition PACU
[2023-02-24 09:39] LABS: Glucose Point of Care 138 mg/dl (65-105)
[2023-02-24] MEDS: ONDANSETRON INJ 4 MG/2 ML VIAL IV PUSH (09:48)
--- NOTE | 2023-02-24 12:00 | SUR.PHASEII ---
1130 PATIENT DRESSED WITH ASSISTANCE, WAITING FOR A RIDE.
--- NOTE | 2023-02-24 12:24 | SUR.PHASEII ---
PATIENT STILL WAITING FOR RIDE.
== END 2023-02-24 12:45 | disposition home or self-care (01) ==
PROVIDERS: PCP Nurse Practitioner Family; Visit Provider Orthopaedic Surgery
PROC: (CPT 24359; principal; 2023-02-24 07:30)
PROC: (CPT 26055; 2023-02-24 07:30)
DX: M77.12 Lateral epicondylitis, left elbow (principal); M65.332 Trigger finger, left middle finger; I12.9 Hypertensive chronic kidney disease with stage 1 through stage 4 chronic kidney disease, or unspecified chronic kidney disease; E13.22 Other specified diabetes mellitus with diabetic chronic kidney disease; N18.30 Chronic kidney disease, stage 3 unspecified; E78.00 Pure hypercholesterolemia, unspecified; E03.9 Hypothyroidism, unspecified; G47.33 Obstructive sleep apnea (adult) (pediatric); D64.9 Anemia, unspecified; F32.A Depression, unspecified; F41.9 Anxiety disorder, unspecified; M81.0 Age-related osteoporosis without current pathological fracture; Z79.4 Long term (current) use of insulin; Z79.899 Other long term (current) drug therapy; Z98.84 Bariatric surgery status; E66.01 Morbid (severe) obesity due to excess calories; Z68.41 Body mass index [BMI] 40.0-44.9, adult
CPT/HCPCS: 24359; 26055; 82948; A4565; A9270; C1713; J0690; J1100; J2250; J2405; J2704; J3010; J7120

== ENCOUNTER 2023-03-02 09:58 | Outpatient (CLI) | payer MEDICARE, MEDICAID, SELFPAY ==
[2023-03-02] MEDS: CYANOCOBALAMIN INJ 1,000 MCG/ML VIAL 1000 MCG IM (10:38)
[2023-03-02] MEDS: MAGNESIUM SULFATE IVPB (10:39)
[2023-03-02] MEDS: SODIUM CHLORIDE 0.9% IVPB (10:39)
[2023-03-02 10:50] VITALS: BP 129/74; PULSE 84; RESP 18; TEMP 36.6; O2SAT 94
[2023-03-02 13:02] VITALS: BMI 42.1
--- NOTE | 2023-03-02 13:29 | PC.NURSE ---
Patient here for monthly B12 and IV Magnesium infusion. Mag level from few days ago 1.2. Education given. No concerns voiced. IV Magnesium and B12 injection administered. SEE MAR. Tolerated well. Will return Apr 03, 2023 at 0930 for next's month's. Safe exit of hospital per amb/self.
== END 2023-03-02 09:59 | disposition home or self-care (01) ==
LOC: CHSTREATRM 10:01
PROVIDERS: PCP Nurse Practitioner Family; Visit Provider Nurse Practitioner Family
DX: D51.9 Vitamin B12 deficiency anemia, unspecified (principal); E83.42 Hypomagnesemia
CPT/HCPCS: 96365; 96366; 96372; J3420; J3475; J7050

== ENCOUNTER 2023-04-03 10:08 | Outpatient (CLI) | payer MEDICARE, MEDICAID, SELFPAY ==
[2023-04-03 10:12] VITALS: BMI 41.8
[2023-04-03 10:50] LABS: Magnesium 1.5 mg/dL (1.8-2.4)
[2023-04-03 10:55] VITALS: BP 109/60; PULSE 68; RESP 14; TEMP 36.6; O2SAT 98
[2023-04-03] MEDS: MAGNESIUM SULFATE IVPB (11:15)
[2023-04-03] MEDS: SODIUM CHLORIDE 0.9% IVPB (11:15)
[2023-04-03] MEDS: CYANOCOBALAMIN INJ 1,000 MCG/ML VIAL 1000 MCG IM (11:24)
--- NOTE | 2023-04-03 14:23 | PC.NURSE ---
Patient here for monthly IV Magnesium infusion and Vitamin B12 injection. No concerns voiced. Magnesium level 1.5 today. IV Magnesium and B12 injection administered SEE OCT. Tolerated well. Will return Mon.05/05/23 for next month's Mag/B12. Safe exit of hospital per amb/self.
== END 2023-04-03 10:09 | disposition home or self-care (01) ==
LOC: CHSTREATRM 10:11
PROVIDERS: PCP Family Medicine; Visit Provider Nurse Practitioner Family
DX: D51.9 Vitamin B12 deficiency anemia, unspecified (principal); E83.42 Hypomagnesemia
CPT/HCPCS: 36415; 83735; 96365; 96366; 96372; J3420; J3475; J7050

== ENCOUNTER 2023-04-06 08:38 | Outpatient (CLI) | payer MEDICARE, MEDICAID, SELFPAY ==
--- NOTE | ~2023-04-06 | XR_ITS ---
EXAMINATION: XR lg joint inject/asp w image, XR lg joint inject/asp add DATE: 04/06/2023 10:41 INDICATION: Bilateral hip arthritis TECHNIQUE: A time-out was performed to verify the patient's name, date of , and procedure to b e performed. The procedure including the risks and benefits was discussed with the patient. Risks dis cussed included bleeding and infection. The patient understood the risks and agreed to proceed. First , the skin overlying the right hip joint was prepared and draped in usual sterile fashion. The skin a nd subcutaneous tissues were infiltrated with 1% lidocaine for local anesthesia. A 22 G needle was ad vanced under fluoroscopic guidance into the joint. Injection of 1 mL of Omnipaque 240 confirmed intra -articular position of the needle. Subsequently, injectate consisting of 80 mg of Depo-Medrol (2 cc) and 2 cc of 0.5% bupivacaine was instilled. The needle was removed and the entry site was cleaned an d dressed. Next, the patient was repositioned and the above procedure was repeated for the left hip. There were no immediate complications. Fluoroscopy exposure time was 1.3 minutes. The DAP for this procedure was 13.27 Gycm2. FINDINGS: Real-time fluoroscopy demonstrates the needle in the right hip and left hip for the respect horacio injections. Patient's pain prior to procedure:12/28. Patient's pain following the procedure: 08/30. IMPRESSION: 1. Successful bilateral hip injection of local anesthetic and steroid with decrease in the patient's presenting pain. Reviewed, dictated and finalized at location L. IMPRESSION: 1. Successful bilateral hip injection of local anesthetic and steroid with decr ease in the patient's presenting pain.
== END 2023-04-06 08:39 | disposition home or self-care (01) ==
LOC: CHSIMG 08:38
PROVIDERS: PCP Family Medicine; Visit Provider Orthopaedic Surgery
DX: M16.0 Bilateral primary osteoarthritis of hip (principal)
CPT/HCPCS: 20610; 77002; J1030

== ENCOUNTER 2023-04-26 14:35 | Outpatient (CLI) | payer MEDICARE, MEDICAID, SELFPAY ==
[2023-04-26 14:56] LABS: Basophils Absolute Auto 0.04 K/mm3 (0.00-0.10); Basophils Percent Auto 0.4 % (0.0-1.0); Eosinophils Absolute Auto 0.34 K/mm3 (0.02-0.50); Eosinophils Percent Auto 3.8 % (1.0-6.0); Hematocrit 37.8 % (35.0-49.0); Hemoglobin 12.2 g/dL (12.0-15.0); Immature Granulocyte Absolute 0.02 K/mm3 (0.00-0.00); Immature Granulocyte Percent A 0.2 % (0.0-0.0); Lymphocytes Absolute Auto 2.78 K/mm3 (1.10-4.50); Mean Corpuscular HGB Conc 32.3 g/dL (32.0-36.0); Mean Corpuscular Volume 93.1 fL (78.0-102.0); Monocytes Absolute Auto 0.47 K/mm3 (0.10-0.90); Monocytes Percent Auto 5.2 % (2.0-11.0); Neutrophils Absolute Auto 5.3 K/mm3 (1.7-7.2); Neutrophils Percent Auto 59.4 % (50.0-70.0); Platelet Count Result 193 K/mm3 (150-420); Red Blood Count 4.06 M/mm3 (4.20-5.40); Red Cell Distribution Width 12.5 % (11.6-14.4)
[2023-04-26 14:57] LABS: Appearance Urine Clear (Clear); Bilirubin Urine Negative (Negative); Blood Urine Negative (Negative); Color Urine Light Yellow (Yellow); Glucose Urine UA 3+ (Negative); Ketones Urine Negative (Negative); Leukocyte Esterase Ur Negative (Negative); Nitrate Urine Negative (Negative); Protein Urine Negative (Negative); Specific Grav Ur 1.015 (1.010-1.020); Urobilinogen Urine 0.2 mg/dL (0.2-1.0); pH Urine 5.5 (5.0-8.0)
[2023-04-26 15:22] LABS: Add Urine Microscopic? YES; Bacteria Urine Trace /hpf; RBC Urine None seen /hpf (0-2); Squamous Epithelial Cell Urine Few /hpf (Few); WBC Urine None seen /hpf (0-3)
[2023-04-26 15:37] LABS: Albumin Level 3.4 g/dL (3.4-5.0); Anion Gap 6 mmol/L (8-16); Blood Urea Nitrogen 35 mg/dL (7-18); Calcium 9.7 mg/dL (8.5-10.1); Carbon Dioxide 32 mmol/L (21-32); Chloride 105 mmol/L (98-108); Estimated Glomerular Filt Rate 42; Glucose 150 mg/dL (70-99); Magnesium 1.3 mg/dL (1.8-2.4); Osmolality Calculated 307 mOsm/kg (285-295); Phosphorus 3.2 mg/dL (2.6-4.7); Potassium 3.6 mmol/L (3.5-5.1); Sodium 143 mmol/L (136-145); Uric Acid 6.1 mg/dL (2.6-6.0)
[2023-04-30 19:24] LABS: Parathyroid Intact 33 pg/mL (14-64)
== END 2023-04-26 14:36 | disposition home or self-care (01) ==
LOC: CHSLAB 14:38
PROVIDERS: PCP Family Medicine; Visit Provider Internal Medicine Nephrology
DX: D51.9 Vitamin B12 deficiency anemia, unspecified (principal); I10 Essential (primary) hypertension; N18.9 Chronic kidney disease, unspecified
CPT/HCPCS: 36415; 80069; 81001; 83735; 83970; 84550; 85025

== ENCOUNTER 2023-05-04 08:58 | Outpatient (CLI) | payer MEDICARE, MEDICAID, SELFPAY ==
--- NOTE | 2023-05-04 09:20 | PC.NURSE ---
Patient here for Mag infusion and B12 injection. Sitting up in chair resting, call light at side. Tolerated IV start well.
[2023-05-04] MEDS: CYANOCOBALAMIN INJ 1,000 MCG/ML VIAL 1000 MCG IM (09:35)
[2023-05-04] MEDS: SODIUM CHLORIDE 0.9% IVPB (09:35)
[2023-05-04] MEDS: MAGNESIUM SULFATE IVPB (09:35)
--- NOTE | 2023-05-04 12:15 | PC.NURSE ---
Patient tolerated mag infusion well. No adverse reactions noted. IV site removed, tip intact. Dressing applied to site. Next kirsty. made with OP nurse Sussy KANG. Patient denies any questions or concerns. Left floor ambulatory.
== END 2023-05-04 08:59 | disposition home or self-care (01) ==
LOC: CHSTREATRM 09:04
PROVIDERS: PCP Family Medicine; Visit Provider Family Medicine
DX: E83.42 Hypomagnesemia (principal); D51.9 Vitamin B12 deficiency anemia, unspecified
CPT/HCPCS: 96365; 96366; 96372; J3420; J3475; J7050

== ENCOUNTER 2023-05-09 09:16 | Outpatient (CLI) | payer MEDICARE, MEDICAID, SELFPAY ==
[2023-05-09 09:30] LABS: Occult Blood Negative (Negative)
[2023-05-16 16:53] LABS: Lactoferrin, Stool Negative (Negative)
[2023-05-16 18:58] LABS: Calprotectin, Stool 73 mcg/g
== END 2023-05-09 09:17 | disposition home or self-care (01) ==
LOC: CHSLAB 09:18
PROVIDERS: PCP Family Medicine; Visit Provider Family Medicine
DX: K52.9 Noninfective gastroenteritis and colitis, unspecified (principal)
CPT/HCPCS: 82272; 83630; 83993; 87045; 87177; 87209; 87427; 87449; 87493

== ENCOUNTER 2023-05-24 12:21 | Outpatient (NON) | payer MEDICARE, MEDICAID, SELFPAY ==
[2023-05-24 12:44] LABS: Appearance Urine Clear (Clear); Bilirubin Urine Negative (Negative); Blood Urine Negative (Negative); Color Urine Yellow (Yellow); Glucose Urine UA 3+ (Negative); Ketones Urine Negative (Negative); Leukocyte Esterase Ur Negative (Negative); Nitrate Urine Negative (Negative); Protein Urine Negative (Negative); Urobilinogen Urine 0.2 mg/dL (0.2-1.0); pH Urine 5.5 (5.0-8.0)
[2023-05-24 12:50] LABS: Add Urine Microscopic? YES; Bacteria Urine 2+ /hpf; RBC Urine None seen /hpf (0-2); Squamous Epithelial Cell Urine Rare /hpf (Few); WBC Urine 0-5 /hpf (0-3)
== END 2023-05-24 12:22 | disposition home or self-care (01) ==
PROVIDERS: Visit Provider Nurse Practitioner Family
DX: M54.9 Dorsalgia, unspecified (principal)
CPT/HCPCS: 81001; 87077; 87086; 87088; 87186

== ENCOUNTER 2023-06-01 09:41 | Outpatient (CLI) | payer MEDICARE, MEDICAID, SELFPAY ==
[2023-06-01 09:50] VITALS: BMI 41.8
[2023-06-01] MEDS: SODIUM CHLORIDE 0.9% IVPB (10:10)
[2023-06-01] MEDS: MAGNESIUM SULFATE IVPB (10:10)
[2023-06-01 10:17] VITALS: BP 121/59; PULSE 81; RESP 20; TEMP 35.9; O2SAT 99
[2023-06-01] MEDS: CYANOCOBALAMIN INJ 1,000 MCG/ML VIAL 1000 MCG IM (10:22)
[2023-06-01 10:29] LABS: Magnesium 1.2 mg/dL (1.8-2.4)
--- NOTE | 2023-06-01 13:35 | PC.NURSE ---
Patient here for monthly Magnesium infusion and B12 injection. No concerns voiced. Mag level 1.2. Magnesium and B12 injection administered SEE OCT. Tolerated well. Will return 07/03/23 at 0900 for next month's. Safe exit of hospital per self/ambulatory.
== END 2023-06-01 09:42 | disposition home or self-care (01) ==
PROVIDERS: PCP Family Medicine; Visit Provider Nurse Practitioner Family
DX: E83.42 Hypomagnesemia (principal); D51.9 Vitamin B12 deficiency anemia, unspecified
CPT/HCPCS: 36415; 83735; 96365; 96366; 96372; J3420; J3475; J7050

== ENCOUNTER 2023-06-12 14:12 | Outpatient (CLI) | payer MEDICARE, MEDICAID, SELFPAY ==
--- NOTE | ~2023-06-12 | XR_ITS ---
Supine and upright views of the abdomen Clinical history: Abdominal pain Findings: Bowel gas pattern is nonspecific. No evidence for obstruction or free air. No abnormal mass lesion or calcification is seen. Moderate degenerative change of the left hip joint, and mild degene rative change of the right hip joint, are noted. Impression: Degenerative changes, as above. Reviewed, dictated and finalized at location M. Impression: Degenerative changes, as above.
[2023-06-12 17:20] LABS: Appearance Urine Clear (Clear); Bilirubin Urine Negative (Negative); Blood Urine Negative (Negative); Color Urine Yellow (Yellow); Glucose Urine UA 2+ (Negative); Ketones Urine Negative (Negative); Leukocyte Esterase Ur Negative LEU/UL (Negative); Nitrate Urine Negative (Negative); Protein Urine Negative (Negative); Urobilinogen Urine 0.2 mg/dL (0.2-1.0); pH Urine 5.5 (5.0-8.0)
[2023-06-12 17:22] LABS: Add Urine Microscopic? NO
== END 2023-06-12 14:13 | disposition home or self-care (01) ==
LOC: CHSLAB 14:14
PROVIDERS: PCP Nurse Practitioner Family; Visit Provider Nurse Practitioner Family
DX: R10.9 Unspecified abdominal pain (principal); Z87.898 Personal history of other specified conditions
CPT/HCPCS: 74018; 81003

== ENCOUNTER 2023-06-12 15:13 | Outpatient (CLI) | payer MEDICARE, MEDICAID, SELFPAY ==
--- NOTE | ~2023-06-12 | US_ITS ---
US retroperitoneal comp 06/12/2023 16:12 Procedure: Realtime transabdominal ultrasound of the kidneys and bladder. Indication: Right hydronephrosis Comparison: 08/26/2022 Findings: There is mildly dilated right renal pelvis. No stones or solid masses. The right kidney jin sures 10.9 cm and left kidney measures 9.6 cm. Bladder within normal limits. Impression: 1: Probably dilated right renal pelvis. Consider hydronephrosis, extrarenal pelvis and mild right UPJ obstruction. Reviewed, dictated and finalized at location L. Impression: 1: Probably dilated right renal pelvis. Consider hydronephrosis, extrarenal pel vis and mild right UPJ obstruction.
== END 2023-06-12 15:14 | disposition home or self-care (01) ==
PROVIDERS: PCP Nurse Practitioner Family; Visit Provider Urology
DX: N13.30 Unspecified hydronephrosis (principal)
CPT/HCPCS: 76770

== ENCOUNTER 2023-06-15 08:16 | Outpatient (CLI) | payer MEDICARE, MEDICAID, SELFPAY ==
--- NOTE | ~2023-06-15 | XR_ITS ---
EXAMINATION: XR small bowel follow through DATE: 06/15/2023 10:25 INDICATION: Fecal abnormalities. Noninfected gastroenteritis/colitis TECHNIQUE: [employer] radiograph(s) of the abdomen was/were obtained. Oral contrast was administered, and sequential radiographs of the abdomen were obtained until oral contrast was noted to be in the proxi mal colon. Spot fluoroscopic images of the small bowel were obtained. Fluoroscopy exposure time was 0 .5 minutes. Total of 8 fluoroscopic images and 7 overhead radiographs were obtained. COMPARISON: None. FINDINGS: [employer] radiograph demonstrates a normal bowel gas pattern. Transit time from the stomach to proximal c olon was approximately 45 minutes. Small diverticulum arising from the second portion of the duodenum . There is normal caliber and mucosal fold pattern throughout the small bowel. Terminal ileum is norm al. No tethering or abnormal mass effect observed upon the small bowel with real-time fluoroscopy. IMPRESSION: 1. Small diverticulum arising from the second portion of the duodenum. Otherwise normal small bowel f ollow-through. Reviewed, dictated and finalized at location A. IMPRESSION: 1. Small diverticulum arising from the second portion of the duodenum. Otherwis e normal small bowel follow-through.
== END 2023-06-15 08:17 | disposition home or self-care (01) ==
PROVIDERS: PCP Nurse Practitioner Family; Visit Provider Nurse Practitioner Family
DX: R19.5 Other fecal abnormalities (principal); K52.9 Noninfective gastroenteritis and colitis, unspecified
CPT/HCPCS: 74250

== ENCOUNTER 2023-06-19 10:08 | Outpatient (CLI) | payer MEDICARE, MEDICAID, SELFPAY ==
--- NOTE | ~2023-06-19 | CT_ITS ---
EXAMINATION: CT abdomen pelvis wo con DATE: 06/19/2023 10:54 INDICATION: Right hydronephrosis. Right pelvic, groin pain TECHNIQUE: Computed tomography (CT) of the abdomen and pelvis was performed without intravenous contr ast. Automated exposure control and iterative reconstruction technique were employed. Exam dose: 143 8.52 mGy-cm total exam DLP. COMPARISON: 04/16/[address] abdomen pelvis examinations dating back to 06/04/2021 FINDINGS: Examination is limited by streak artifact from barium in the rectum and colon. Approximately 3.3 mm anterior segment left lower lobe nodular density, unchanged since 01/26/2022 and t herefore benign. No infiltrate or consolidation at the lung bases. Normal heart size. No pericardial or pleural effusion. 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 The liver, gallbladder, bile ducts and spleen appear unremarkable. Multiple pancreatic calcifications consistent with chronic pancreatitis. No pancreatic mass lesion is evident. Normal morphology of the adrenal glands. Stable hypoattenuating 2 cm rounded mass of mid right kidney, not significantly change compared to th e appearance on serial CT abdomen pelvis examination dating back to 06/04/2021, indicating this is li adilene a cyst. No other renal mass lesion is evident on this limited noncontrast examination with strea k artifact. Prominent right extrarenal pelvis, possibly due to some right ureteropelvic disproportion. No urinary tract calculus or hydroureteronephrosis is evident. Urinary bladder is not completely imag ed due to the streak artifact. There is atherosclerotic calcification but normal caliber of the abdominal aorta and iliac arteries. No intraperitoneal or retroperitoneal or pelvic mass lesion or adenopathy or ascites is evident. Small fat-containing umbilical hernia. Bilateral hip osteoarthritis and chondrocalcinosis. Degenerative changes of the thoracic and lumbar spine including moderately severe degenerative disc d isease at L4-5 and L5-S1. IMPRESSION: Prominent right extrarenal pelvis, possibly due to ureteropelvic disproportion No apparent urinary tract calculus or obstruction is noted otherwise 2 cm probable right renal cyst Postoperative change of the stomach Chronic pancreatitis Reviewed, dictated and finalized at Location A. Reviewed, dictated and finalized at location B. IMPRESSION: Prominent right extrarenal pelvis, possibly due to ureteropelvic d isproportion No apparent urinary tract calculus or obstruction is noted otherwise 2 cm probable right renal cyst Postoperative change of the stomach Chronic pancreatitis
== END 2023-06-19 10:09 | disposition home or self-care (01) ==
LOC: CHSIMG 10:09
PROVIDERS: PCP Family Medicine; Visit Provider Urology
DX: N13.30 Unspecified hydronephrosis (principal); N28.1 Cyst of kidney, acquired; K85.90 Acute pancreatitis without necrosis or infection, unspecified
CPT/HCPCS: 74176

== ENCOUNTER 2023-06-29 13:43 | Outpatient (CLI) | payer MEDICARE, MEDICAID, SELFPAY ==
[2023-06-29 14:20] LABS: Anion Gap 9 mmol/L (8-16); Blood Urea Nitrogen 28 mg/dL (7-18); Calcium 9.5 mg/dL (8.5-10.1); Carbon Dioxide 31 mmol/L (21-32); Chloride 103 mmol/L (98-108); Estimated Glomerular Filt Rate 37; Glucose 132 mg/dL (70-99); Osmolality Calculated 303 mOsm/kg (285-295); Potassium 3.4 mmol/L (3.5-5.1); Sodium 143 mmol/L (136-145)
[2023-06-29 14:38] LABS: Magnesium 1.1 mg/dL (1.8-2.4)
== END 2023-06-29 13:44 | disposition home or self-care (01) ==
PROVIDERS: PCP Family Medicine; Visit Provider Nurse Practitioner Family
DX: N13.30 Unspecified hydronephrosis (principal); G89.4 Chronic pain syndrome; M13.0 Polyarthritis, unspecified; Z79.891 Long term (current) use of opiate analgesic; D61.9 Aplastic anemia, unspecified
CPT/HCPCS: 36415; 80048; 80307; 80361; 83735; G0480

== ENCOUNTER 2023-07-03 08:32 | Outpatient (CLI) | payer MEDICARE, MEDICAID, SELFPAY ==
[2023-07-03 08:58] VITALS: BP 101/64; PULSE 80; RESP 14; TEMP 36.6; O2SAT 99
[2023-07-03 09:03] VITALS: BMI 39.2
[2023-07-03] MEDS: CYANOCOBALAMIN INJ 1,000 MCG/ML VIAL 1000 MCG IM (09:05)
[2023-07-03 09:06] LABS: Magnesium 1.3 mg/dL (1.8-2.4)
[2023-07-03] MEDS: MAGNESIUM SULFATE IVPB (09:15)
[2023-07-03] MEDS: SODIUM CHLORIDE 0.9% IVPB (09:15)
--- NOTE | 2023-07-03 12:13 | PC.NURSE ---
Patient here for monthly B12 injection and IV Magnesium infusion. Mag level 1.3 today. Patient voices no concerns. Medication administered. See MAR. Tolerated well. Will return 08/03/23 at 0900 for next month. Safe exit of hospital per self/ambulatory.
== END 2023-07-03 08:33 | disposition home or self-care (01) ==
LOC: CHSTREATRM 08:34
PROVIDERS: PCP Family Medicine; Visit Provider Nurse Practitioner Family
DX: E83.42 Hypomagnesemia (principal); D51.9 Vitamin B12 deficiency anemia, unspecified
CPT/HCPCS: 36415; 83735; 96365; 96366; 96372; J3420; J3475; J7050

== ENCOUNTER 2023-08-03 09:05 | Outpatient (CLI) | payer MEDICARE, MEDICAID, SELFPAY ==
[2023-08-03 09:16] VITALS: BMI 38.7
[2023-08-03] MEDS: SODIUM CHLORIDE 0.9% IVPB (09:35)
[2023-08-03] MEDS: MAGNESIUM SULFATE IVPB (09:35)
[2023-08-03] MEDS: CYANOCOBALAMIN INJ 1,000 MCG/ML VIAL 1000 MCG IM (09:52)
[2023-08-03 09:54] LABS: Magnesium 1.2 mg/dL (1.8-2.4)
[2023-08-03 10:03] VITALS: BP 128/67; PULSE 72; RESP 16; TEMP 36.6; O2SAT 97
--- NOTE | 2023-08-03 12:35 | PC.NURSE ---
Patient here for monthly B12 injection and IV Magnesium infusion. Mag level today 1.2. No concerns voiced. Injection and Infusion administered. SEE MAR. Tolerated well. Will return 09/04/23 at 0900 for next month's. Safe exit of hospital per self and ambulatory.
== END 2023-08-03 09:06 | disposition home or self-care (01) ==
PROVIDERS: PCP Family Medicine; Visit Provider Family Medicine
DX: D51.9 Vitamin B12 deficiency anemia, unspecified (principal); E83.42 Hypomagnesemia
CPT/HCPCS: 36415; 83735; 96365; 96366; 96372; J3420; J3475; J7050

== ENCOUNTER 2023-08-10 07:42 | Outpatient (CLI) | payer MEDICARE, MEDICAID, SELFPAY ==
--- NOTE | ~2023-08-10 | XR_ITS ---
CORRECTED REPORT exam description [facility] 08/15/23 This report was recreated on 08/15/23. Original report was N MARKETER EXAMINATION: XR lg joint inject/asp add DATE: 08/10/2023 10:06 INDICATION: Left hip pain TECHNIQUE: A time-out was performed to verify the patient's name, date of , and procedure to be performed. The procedure including the risks and benefits was discussed with the patient. Risks discussed included bleeding and infection. The patient understood the risks and agreed to proceed. The skin overlying the left hip joint was prepared and draped in usual sterile fashion. The skin and subcutaneous tissues were infiltrated with 1% lidocaine for local anesthesia. A 22 G needle was advanced under fluoroscopic guidance into the joint. Injection of 2 mL of Omnipaque 240 confirmed intra-articular position of the needle. Subsequently, injectate consisting of 80 mg of Depo-Medrol and 2 cc of 0.5% Marcaine was instilled. The needle was removed and the entry site was cleaned and dressed. There were no immediate complications. Fluoroscopy exposure time was 0.4 minutes. The DAP for this procedure was 4.169 Gycm2. FINDINGS: Real-time fluoroscopy demonstrates the needle in the left hip joint. Patient's pain prior to procedure:8. Patient's pain following the procedure: 09/30. IMPRESSION: 1. Successful left hip injection of local anesthetic and steroid with decrease in the patient's presenting pain. Reviewed, dictated and finalized at location L. N MARKETER MTDD
--- NOTE | ~2023-08-10 | XR_ITS ---
EXAMINATION: XR lg joint inject/asp w image DATE: 08/10/2023 09:54 INDICATION: Right hip pain TECHNIQUE: A time-out was performed to verify the patient's name, date of , and procedure to b e performed. The procedure including the risks and benefits was discussed with the patient. Risks dis cussed included bleeding and infection. The patient understood the risks and agreed to proceed. The s kin overlying the right hip joint was prepared and draped in usual sterile fashion. The skin and subc utaneous tissues were infiltrated with 1% lidocaine for local anesthesia. A 22 G needle was advanced under fluoroscopic guidance into the joint. Injection of 2 mL of Omnipaque 240 confirmed intra-articu lar position of the needle. Subsequently, injectate consisting of 80 mg of Depo-Medrol and 2 cc of 0. 5% Marcaine was instilled. The needle was removed and the entry site was cleaned and dressed. There w ere no immediate complications. Fluoroscopy exposure time was 0.7 minutes. The DAP for this procedure was 7.318 Gycm2. FINDINGS: Real-time fluoroscopy demonstrates the needle in the right hip joint. Patient's pain prior to procedure:8/10. Patient's pain following the procedure: /. IMPRESSION: 1. Successful right hip injection of local anesthetic and steroid with decrease in the patient's pres enting pain. Reviewed, dictated and finalized at location L. RESSER IMPRESSION: 1. Successful right hip injection of local anesthetic and steroid with decrease in the patient's presenting pain.
== END 2023-08-10 07:43 | disposition home or self-care (01) ==
LOC: CHSIMG 07:42
PROVIDERS: PCP Family Medicine; Visit Provider Orthopaedic Surgery
DX: M16.11 Unilateral primary osteoarthritis, right hip (principal); M16.12 Unilateral primary osteoarthritis, left hip
CPT/HCPCS: 20610; 77002; J1030

== ENCOUNTER 2023-08-28 07:07 | Outpatient (CLI) | payer MEDICARE, MEDICAID, SELFPAY ==
[2023-08-28 07:42] LABS: Basophils Absolute Auto 0.05 K/mm3 (0.00-0.10); Basophils Percent Auto 0.5 % (0.0-1.0); Eosinophils Absolute Auto 0.45 K/mm3 (0.02-0.50); Eosinophils Percent Auto 4.5 % (1.0-6.0); Hemoglobin 11.9 g/dL (12.0-15.0); Immature Granulocyte Absolute 0.03 K/mm3 (0.00-0.00); Immature Granulocyte Percent A 0.3 % (0.0-0.0); Lymphocytes Absolute Auto 3.06 K/mm3 (1.10-4.50); Lymphocytes Percent Auto 30.5 % (18.0-42.0); Mean Corpuscular HGB Conc 32.2 g/dL (32.0-36.0); Mean Corpuscular Hemoglobin 29.6 pg (27.0-31.0); Mean Platelet Volume 10.3 fl (9.2-11.8); Monocytes Absolute Auto 0.56 K/mm3 (0.10-0.90); Monocytes Percent Auto 5.6 % (2.0-11.0); Neutrophils Absolute Auto 5.9 K/mm3 (1.7-7.2); Neutrophils Percent Auto 58.6 % (50.0-70.0); Platelet Count Result 209 K/mm3 (150-420); Red Blood Count 4.02 M/mm3 (4.20-5.40); Red Cell Distribution Width 12.5 % (11.6-14.4)
[2023-08-28 08:23] LABS: Creatinine Urine 72.44 mg/dL (40-278); Total Protein Urine Random 13.4 mg/dL (0.0-11.9); Ur Ttl Prot Creatinine Ratio 0.18 mg/mg (0-0.20)
[2023-08-28 09:04] LABS: Albumin Level 3.7 g/dL (3.4-5.0); Anion Gap 9 mmol/L (8-16); Blood Urea Nitrogen 46 mg/dL (7-18); Calcium 9.3 mg/dL (8.5-10.1); Carbon Dioxide 30 mmol/L (21-32); Chloride 103 mmol/L (98-108); Estimated Glomerular Filt Rate 39; Glucose 143 mg/dL (70-99); Magnesium 1.5 mg/dL (1.8-2.4); Osmolality Calculated 307 mOsm/kg (285-295); Phosphorus 3.8 mg/dL (2.6-4.7); Potassium 3.6 mmol/L (3.5-5.1); Sodium 142 mmol/L (136-145)
== END 2023-08-28 07:08 | disposition home or self-care (01) ==
PROVIDERS: PCP Family Medicine; Visit Provider Internal Medicine Nephrology
DX: N18.30 Chronic kidney disease, stage 3 unspecified (principal)
CPT/HCPCS: 36415; 80069; 82570; 83735; 84156; 85025

== ENCOUNTER 2023-09-05 07:13 | Outpatient (CLI) | payer MEDICARE, MEDICAID, SELFPAY ==
[2023-09-05 07:24] VITALS: BMI 38.9
[2023-09-05 08:53] VITALS: BP 110/59; PULSE 60; RESP 14; TEMP 36.6; O2SAT 97
[2023-09-05] MEDS: MAGNESIUM SULFATE IVPB (08:55)
[2023-09-05] MEDS: SODIUM CHLORIDE 0.9% IVPB (08:55)
[2023-09-05] MEDS: CYANOCOBALAMIN INJ 1,000 MCG/ML VIAL 1000 MCG IM (08:57)
--- NOTE | 2023-09-05 13:24 | PC.NURSE ---
Patient was here for monthly IV Magnesium (Mag level 1.5), B12 injection. No concerns voiced. Medication administered. SEE MAR. Tolerated well. Will return 08/05/24 0900 for next month IV Mag/B12. Safe exit of hospital per self/ambulatory.
== END 2023-09-05 07:14 | disposition home or self-care (01) ==
LOC: CHSTREATRM 07:15
PROVIDERS: PCP Family Medicine; Visit Provider Nurse Practitioner Family
DX: D51.9 Vitamin B12 deficiency anemia, unspecified (principal)
CPT/HCPCS: 96365; 96366; 96372; J3420; J3475; J7050

== ENCOUNTER 2023-10-06 07:49 | Outpatient (CLI) | payer MEDICARE, MEDICAID, SELFPAY ==
[2023-10-06 08:28] LABS: Magnesium 1.5 mg/dL (1.8-2.4)
[2023-10-06 08:55] VITALS: BP 92/59; PULSE 88; RESP 14; TEMP 36.6; O2SAT 100; BMI 39.2
[2023-10-06] MEDS: SODIUM CHLORIDE 0.9% IVPB (09:00)
[2023-10-06] MEDS: MAGNESIUM SULFATE IVPB (09:00)
[2023-10-06] MEDS: CYANOCOBALAMIN INJ 1,000 MCG/ML VIAL 1000 MCG IM (09:05)
--- NOTE | 2023-10-06 12:08 | PC.NURSE ---
Patient here for monthly IV Magnesium infusion and B12 injection. Mag level today 1.5. No concerns voiced. Injection and Infusion administered. SEE MAR. Tolerated well. Patient went up to visit mother on med floor.
== END 2023-10-06 07:50 | disposition home or self-care (01) ==
PROVIDERS: Family Medicine; PCP Nurse Practitioner Family; Visit Provider Nurse Practitioner Family
DX: D51.9 Vitamin B12 deficiency anemia, unspecified (principal); E83.42 Hypomagnesemia
CPT/HCPCS: 36415; 83735; 96365; 96366; 96372; J3420; J3475; J7050

== ENCOUNTER 2023-10-23 14:17 | Outpatient (CLI) | payer MEDICARE, MEDICAID, SELFPAY ==
[2023-10-23 14:38] LABS: Appearance Urine Clear (Clear); Basophils Absolute Auto 0.05 K/mm3 (0.00-0.10); Basophils Percent Auto 0.5 % (0.0-1.0); Bilirubin Urine Negative (Negative); Blood Urine Negative (Negative); Color Urine Yellow (Yellow); Eosinophils Absolute Auto 0.59 K/mm3 (0.02-0.50); Eosinophils Percent Auto 5.6 % (1.0-6.0); Glucose Urine UA 3+ (Negative); Hematocrit 34.9 % (35.0-49.0); Hemoglobin 11.4 g/dL (12.0-15.0); Immature Granulocyte Absolute 0.03 K/mm3 (0.00-0.00); Immature Granulocyte Percent A 0.3 % (0.0-0.0); Ketones Urine Negative (Negative); Leukocyte Esterase Ur Negative LEU/UL (Negative); Lymphocytes Absolute Auto 2.91 K/mm3 (1.10-4.50); Lymphocytes Percent Auto 27.5 % (18.0-42.0); Mean Corpuscular HGB Conc 32.7 g/dL (32.0-36.0); Mean Corpuscular Hemoglobin 29.8 pg (27.0-31.0); Mean Corpuscular Volume 91.1 fL (78.0-102.0); Mean Platelet Volume 9.9 fl (9.2-11.8); Monocytes Absolute Auto 0.57 K/mm3 (0.10-0.90); Monocytes Percent Auto 5.4 % (2.0-11.0); Neutrophils Absolute Auto 6.4 K/mm3 (1.7-7.2); Neutrophils Percent Auto 60.7 % (50.0-70.0); Nitrate Urine Negative (Negative); Platelet Count Result 240 K/mm3 (150-420); Protein Urine Negative (Negative); Red Blood Count 3.83 M/mm3 (4.20-5.40); Red Cell Distribution Width 12.5 % (11.6-14.4); Specific Grav Ur 1.015 (1.010-1.020); Urobilinogen Urine 0.2 mg/dL (0.2-1.0); White Blood Count 10.6 K/mm3 (4.8-10.8)
[2023-10-23 14:46] LABS: Add Urine Microscopic? YES; Bacteria Urine Trace /hpf; RBC Urine None seen /hpf (0-2); Squamous Epithelial Cell Urine Few /hpf (Few); WBC Urine None seen /hpf (0-3)
[2023-10-23 15:01] LABS: Total Protein Urine Random 14.5 mg/dL (0.0-11.9)
[2023-10-23 15:03] LABS: Albumin Level 3.6 g/dL (3.4-5.0); Anion Gap 8 mmol/L (8-16); Blood Urea Nitrogen 42 mg/dL (7-18); Calcium 9.2 mg/dL (8.5-10.1); Carbon Dioxide 32 mmol/L (21-32); Chloride 102 mmol/L (98-108); Estimated Glomerular Filt Rate 36; Glucose 190 mg/dL (70-99); Magnesium 1.3 mg/dL (1.8-2.4); Osmolality Calculated 309 mOsm/kg (285-295); Phosphorus 4.4 mg/dL (2.6-4.7); Potassium 3.9 mmol/L (3.5-5.1); Sodium 142 mmol/L (136-145)
== END 2023-10-23 14:18 | disposition home or self-care (01) ==
LOC: CHSLAB 14:19
PROVIDERS: PCP Family Medicine; Visit Provider Internal Medicine Nephrology
DX: N18.30 Chronic kidney disease, stage 3 unspecified (principal)
CPT/HCPCS: 36415; 80069; 81001; 81050; 83735; 84156; 85025

== ENCOUNTER 2023-11-13 09:51 | Outpatient (CLI) | payer MEDICARE, MEDICAID, SELFPAY ==
--- NOTE | ~2023-11-13 | XR_ITS ---
EXAMINATION: XR hand RT min 3V DATE: 11/13/2023 13:36 INDICATION: Right hand pain. Palpable knot at the base of the fifth digit. TECHNIQUE: 3 views of right hand were obtained. COMPARISON: Right hand radiographs 11/11/2021 FINDINGS: Bone alignment is normal. No fracture. There is mild osteoarthritis of first carpometacarpa l joint, first-third metacarpophalangeal joints, and many of the interphalangeal joints. There are pe riarticular calcifications at many of the joints of the hand and wrist. IMPRESSION: 1. Mild polyarticular osteoarthritis. Reviewed, dictated and finalized at location E.
[2023-11-13 10:21] VITALS: BP 106/60; PULSE 68; RESP 14; TEMP 36.6; O2SAT 98; BMI 38.7
[2023-11-13] MEDS: CYANOCOBALAMIN INJ 1,000 MCG/ML VIAL 1000 MCG IM (10:30)
[2023-11-13] MEDS: SODIUM CHLORIDE 0.9% IVPB (10:30)
[2023-11-13] MEDS: MAGNESIUM SULFATE IVPB (10:30)
[2023-11-13 13:29] VITALS: BP 106/64; PULSE 68; RESP 14; TEMP 36.6; O2SAT 97
--- NOTE | 2023-11-13 13:31 | PC.NURSE ---
Patient here for monthly IV Magnesium infusion and Vitamin B12 injection. Education given. No concerns voiced. Injection and infusion administered. SEE MAR. Tolerated well. Will return 12/15/23 at 0900 for next month's B12 and Magnesium. Safe exit of hospital per self/ambulatory.
== END 2023-11-13 13:27 | disposition home or self-care (01) ==
PROVIDERS: PCP Family Medicine; Visit Provider Internal Medicine Cardiovascular Disease
DX: D51.9 Vitamin B12 deficiency anemia, unspecified (principal); M79.641 Pain in right hand; M15.9 Polyosteoarthritis, unspecified
CPT/HCPCS: 73130; 96365; 96366; 96372; J3420; J3475; J7050

== ENCOUNTER 2023-11-27 08:19 | Outpatient (CLI) | payer MEDICARE, MEDICAID, SELFPAY ==
--- NOTE | ~2023-11-27 | XR_ITS ---
EXAMINATION: XR lg joint inject/asp w image DATE: 11/27/2023 09:20 INDICATION: Right hip arthritis. TECHNIQUE: A time-out was performed to verify the patient's name, date of , and procedure to b e performed. The procedure including the risks, benefits, and alternatives was discussed with the pat ient. Risks discussed included bleeding and infection. The patient understood the risks and agreed to proceed. The skin overlying the right hip joint was prepped and draped in usual sterile fashion. A nesthetic was administered with 1% lidocaine subcutaneously. A 22 G needle was advanced under fluoro scopic guidance into the joint. Subsequently, injectate consisting of 2 mm 0.5% bupivacaine and 1 mL 80 mg/L Depo-Medrol was instilled. The needle was removed and the entry site was cleaned and dresse d. There were no immediate complications. Fluoroscopy exposure time was 0.1 minutes. The total numbe r of images was 1. FINDINGS: Real-time fluoroscopy demonstrates the needle in the right hip joint. Patient's pain prior to procedure:4/10. Patient's pain following the procedure: 0/10. IMPRESSION: 1. Fluoroscopy guided right hip joint injection of local anesthetic and steroid with decrease in the patient's presenting pain. Reviewed, dictated and finalized at location A.
--- NOTE | ~2023-11-27 | XR_ITS ---
EXAMINATION: XR lg joint inject/asp add DATE: 11/27/2023 09:22 INDICATION: Left hip arthritis. TECHNIQUE: A time-out was performed to verify the patient's name, date of , and procedure to b e performed. The procedure including the risks, benefits, and alternatives was discussed with the pat ient. Risks discussed included bleeding and infection. The patient understood the risks and agreed to proceed. The skin overlying the left hip joint was prepped and draped in usual sterile fashion. An esthetic was administered with 1% lidocaine subcutaneously. A 22 G needle was advanced under fluoros copic guidance into the joint. Subsequently, injectate consisting of 2 mL 0.5% bupivacaine and 1 mL 80 mg/mL Depo-Medrol was instilled. The needle was removed and the entry site was cleaned and dresse d. There were no immediate complications. Fluoroscopy exposure time was 0.1 minutes. The total numbe r of images was 1. FINDINGS: Real-time fluoroscopy demonstrates the needle in the left hip joint. Patient's pain prior t o procedure:03/30. Patient's pain following the procedure: 09/30. IMPRESSION: 1. Fluoroscopy guided left hip joint injection of local anesthetic and steroid with decrease in the p atient's presenting pain. Reviewed, dictated and finalized at location A. IMPRESSION: 1. Fluoroscopy guided left hip joint injection of local anesthetic and steroid with decrease in the patient's presenting pain.
== END 2023-11-27 08:20 | disposition home or self-care (01) ==
PROVIDERS: PCP Family Medicine; Visit Provider Orthopaedic Surgery
DX: M16.0 Bilateral primary osteoarthritis of hip (principal)
CPT/HCPCS: 20610; 77002; J1010

== ENCOUNTER 2023-12-15 08:02 | Outpatient (CLI) | payer MEDICARE, MEDICAID, SELFPAY ==
[2023-12-15 08:30] LABS: Magnesium 1.5 mg/dL (1.8-2.4)
--- NOTE | 2023-12-15 08:55 | PC.NURSE ---
Patient here for magnesium infusion and B12 injection. Patient sitting up in recliner with BLE elevated. Provided with glass of ice water. Tolerated IV start well. Call light provided.
[2023-12-15] MEDS: SODIUM CHLORIDE 0.9% IVPB (09:00)
[2023-12-15] MEDS: MAGNESIUM SULFATE IVPB (09:00)
[2023-12-15] MEDS: CYANOCOBALAMIN INJ 1,000 MCG/ML VIAL 1000 MCG IM (09:01)
[2023-12-15 09:31] VITALS: BP 97/58; PULSE 81; RESP 16; TEMP 36.1; O2SAT 100
--- NOTE | 2023-12-15 10:10 | PC.NURSE ---
Patient resting quietly in recliner with BLE elevated. Denies any needs at this time.
--- NOTE | 2023-12-15 11:50 | PC.NURSE ---
Patient tolerated Magnesium infusion and b12 shot well. IV site removed, tip intact. Dressing applied to site. Patient denies any needs at discharge. Patient states she will call Monday to set up up next months appt. Patient left floor ambulatory.
== END 2023-12-15 08:03 | disposition home or self-care (01) ==
LOC: CHSTREATRM 08:07
PROVIDERS: PCP Family Medicine; Visit Provider Family Medicine
DX: D51.9 Vitamin B12 deficiency anemia, unspecified (principal)
CPT/HCPCS: 36415; 83735; 96365; 96366; 96372; J3420; J3475; J7050

== ENCOUNTER 2023-12-18 16:21 | Outpatient (CLI) | payer MEDICARE, MEDICAID, SELFPAY ==
--- NOTE | ~2023-12-18 | XR_ITS ---
AP view of the pelvis and AP and lateral views of the left hip Clinical history: Pain Findings: No acute fracture or dislocation is seen. Osseous alignment is anatomic. There is moderate to advanced degenerative change of the left hip joint. There is mild degenerative change of the right hip joint.. Soft tissues are unremarkable. Impression: Moderate to advanced left hip joint degenerative change. Mild degenerative change of the right hip joint. Reviewed, dictated and finalized at location M. Impression: Moderate to advanced left hip joint degenerative change. Mild degenerative change of the right hip joint.
--- NOTE | ~2023-12-18 | XR_ITS ---
Lumbosacral Spine: AP and lateral views Clinical History: Pain Findings: The normal lordotic curve is maintained. No fracture or subluxation evident. There are mild to moderate degenerative disc changes in the lumbar spine. There is moderate to advanced facet arthr opathy in the lumbar spine. The sacroiliac joints are normally outlined. Impression: Moderate degenerative spondylosis overall, as noted above. Reviewed, dictated and finalized at location . Impression: Moderate degenerative spondylosis overall, as noted above.
--- NOTE | ~2023-12-18 | XR_ITS ---
Left Knee Technique: AP, lateral, and sunrise views were obtained. Clinical History: Pain Findings: No fracture or dislocation is seen. There is moderate to advanced tricompartmental degenera tive change. Chondrocalcinosis of the menisci noted. Questionable small intra-articular loose bodies. No joint effusion is seen. Impression: Moderate to advanced tricompartment osteoarthritis with possible small intra-articular loose bodies. Chondrocalcinosis of the menisci. Reviewed, dictated and finalized at location M. Impression: Moderate to advanced tricompartment osteoarthritis with possible small intra-ar ticular loose bodies. Chondrocalcinosis of the menisci.
== END 2023-12-18 16:22 | disposition home or self-care (01) ==
LOC: CHSIMG 16:24
PROVIDERS: PCP Nurse Practitioner Family; Visit Provider Nurse Practitioner Family
DX: M25.562 Pain in left knee (principal); M54.50 Low back pain, unspecified; M25.552 Pain in left hip; M43.06 Spondylolysis, lumbar region; M16.12 Unilateral primary osteoarthritis, left hip; M17.12 Unilateral primary osteoarthritis, left knee; M11.262 Other chondrocalcinosis, left knee
CPT/HCPCS: 72100; 73502; 73562

== ENCOUNTER 2024-01-16 09:06 | Outpatient (CLI) | payer MEDICARE, MEDICAID, SELFPAY ==
[2024-01-16 09:17] VITALS: BMI 38.7
[2024-01-16 09:43] LABS: Magnesium 1.5 mg/dL (1.8-2.4)
[2024-01-16 10:16] VITALS: BP 107/61; PULSE 80; RESP 14; TEMP 36.6; O2SAT 98
[2024-01-16] MEDS: CYANOCOBALAMIN INJ 1,000 MCG/ML VIAL 1000 MCG IM (10:19)
[2024-01-16] MEDS: MAGNESIUM SULFATE IVPB (10:29)
[2024-01-16] MEDS: SODIUM CHLORIDE 0.9% IVPB (10:29)
[2024-01-16 13:34] VITALS: BP 110/64; PULSE 72; RESP 14; TEMP 36.4; O2SAT 98
--- NOTE | 2024-01-16 13:37 | PC.NURSE ---
Patient here for monthly B12 injection and Magnesium IV infusion. Mag level today 1.5. Education given. No concerns voiced. Injection and infusion administered. SEE MAR. Tolerated well. Safe exit of hospital per self/ambulatory. Next tx February 20, 2024 at 9:30 a.m.
== END 2024-01-16 09:07 | disposition home or self-care (01) ==
PROVIDERS: PCP Family Medicine; Visit Provider Nurse Practitioner Family
DX: D51.9 Vitamin B12 deficiency anemia, unspecified (principal)
CPT/HCPCS: 36415; 83735; 96365; 96366; 96372; J3420; J3475; J7050

== ENCOUNTER 2024-01-27 16:12 | Emergency (ER) | payer MEDICARE, SELFPAY ==
[2024-01-27] VITALS (22 sets, daily range): BP systolic 107–147; BP diastolic 61–89; PULSE 74–85; RESP 13–25; TEMP 36.3–36.6; O2SAT 97–100
--- NOTE | ~2024-01-27 | XR_ITS ---
EXAMINATION: XR chest 1V portable 01/27/2024 17:18 INDICATION: Left chest pain PROCEDURE: AP portable chest COMPARISON: 04/25/2018 FINDINGS: The lungs are clear. The cardiomediastinal silhouette is within normal limits. There are no pleural effusions. There is no pneumothorax suspected. IMPRESSION: 1: NO ACUTE CARDIOPULMONARY DISEASE. Reviewed, dictated and finalized at location B.
--- NOTE | 2024-01-27 16:17 | ECG_ITS ---
Test Date: 2024-01-27 16:22:27 Measurements Intervals [place] Rate: 79 P: 50 WV: 126 QRS: -16 QRSD: 90 T: 63 QT: 361 QTc: 414 Interpretive Statements SINUS RHYTHM POSSIBLE ANTERIOR MYOCARDIAL INFARCTION , PROBABLY OLD [30 ms Q WAVE IN V3/V4, OR R < 0.2 mV IN V4] No previous ECG available for comparison Electronically Signed On 01-30-2024 10:38:37 CDT by Saadia Fitzpatrick M.D.
--- NOTE | 2024-01-27 16:44 | ED.CHESTPAIN ---
HPI - Chest Pain General Chief Complaint: Chest Pain <Hollis Snow MD - Last Filed: 01/27/24 17:07> Stated Complaint: chest pain <Hollis Snow MD - Last Filed: 01/27/24 17:07> Time Seen by Provider: 01/27/24 16:40 <Hollis Snow MD - Last Filed: 01/27/24 17:07> Source: patient <Hollis Snow MD - Last Filed: 01/27/24 17:07> Mode of arrival: ambulatory <Hollis Snow MD - Last Filed: 01/27/24 17:07> Limitations: no limitations <Hollis Snow MD - Last Filed: 01/27/24 17:07> History of Present Illness HPI narrative: 8-year-old female a history anxiety /depression, hypertension, diabetes mellitus, recurrent chest pain with a negative cardiac catheterization in 2019 with recent sacroiliac injection for pain management presents to the with a 3 day history of -- left-sided chills chest pain which radiates across chest. Pain is unprovoked and lasts few minutes. no nausea/ vomiting. No diaphoresis. No shortness of breath. <Hollis Snow MD - Last Filed: 01/27/24 17:07> 58-year-old female a history anxiety /depression, hypertension, diabetes mellitus, recurrent chest pain with a negative cardiac catheterization in 2019 with recent sacroiliac injection for pain management presents to the with a 3 day history of -- left-sided chills chest pain which radiates across chest. Pain is unprovoked and lasts few minutes. no nausea/ vomiting. No diaphoresis. No shortness of breath. <Virgilio Meehan DO - Last Filed: 02/04/24 18:54> MD complaint: chest pain <Hollis Snow MD - Last Filed: 01/27/24 17:07> Onset (ago): day(s) ( Three days) <Hollis Snow MD - Last Filed: 01/27/24 17:07> Timing of current episode: episodic <Hollis Snow MD - Last Filed: 01/27/24 17:07> Prior episodes: Yes <Hollis Snow MD - Last Filed: 01/27/24 17:07> Onset: during rest <Hollis Snow MD - Last Filed: 01/27/24 17:07> Pain location: left chest <Hollis Snow MD - Last Filed: 01/27/24 17:07> Pain radiation: other ( radiates across the chest) <Hollis Snow MD - Last Filed: 01/27/24 17:07> Severity: moderate <Hollis Snow MD - Last Filed: 01/27/24 17:07> Pain scale (0-10): 6 <Hollis Snow MD - Last Filed: 01/27/24 17:07> Quality: aching <Hollis Snow MD - Last Filed: 01/27/24 17:07> Relieving factors: nothing <Hollis Snow MD - Last Filed: 01/27/24 17:07> Exacerbating factors: nothing <Hollis Snow MD - Last Filed: 01/27/24 17:07> Treatment prior to arrival: none <Hollis Snow MD - Last Filed: 01/27/24 17:07> Risk Factors Coronary artery disease risk factors: diabetes, hypertension and family history of CAD before age 50 <Hollis Snow MD - Last Filed: 01/27/24 17:07> Related Data On Oral Contraceptives: No <Hollis Snow MD - Last Filed: 01/27/24 17:07> Home Medications: Home Medications Medication Instructions Recorded Confirmed multivit with minerals-iron 18 1 tablet PO BID 03/01/20 01/27/24 mg-folic ac 400 mcg-vit K 25 mcg tablet (Adults Multivitamin) ferrous sulfate 325 mg (65 mg 325 mg PO DAILY 12/29/21 01/27/24 iron) capsule,extended release semaglutide 1 mg/dose (2 mg/1.5 1 mg subcut WEEKLY 09/30/22 01/27/24 mL) subcutaneous pen injector (Ozempic) cholecalciferol (vitamin D3) 25 25 mcg PO DAILY 10/18/22 01/27/24 mcg (1,000 unit) capsule dapagliflozin propanediol 10 mg 10 mg PO DAILY 10/18/22 01/27/24 tablet (Farxiga) isosorbide mononitrate 30 mg 30 mg PO DAILY 10/18/22 01/27/24 tablet,extended release 24 hr vitamin B complex 1 tablet PO DAILY 02/16/23 01/27/24 omega-3 acid ethyl esters 1 gram 1 cap PO DAILY 05/23/23 01/27/24 capsule ascorbate calcium (vitamin C) 500 1 g PO DAILY 11/15/23 01/27/24 mg tablet <Hollis Snow MD - Last Filed:
[2024-01-27 18:03] LABS: Basophils Absolute Auto 0.07 K/mm3 (0.00-0.10); Basophils Percent Auto 0.5 % (0.0-1.0); Eosinophils Absolute Auto 0.43 K/mm3 (0.02-0.50); Eosinophils Percent Auto 2.8 % (1.0-6.0); Hematocrit 38.3 % (35.0-49.0); Hemoglobin 12.3 g/dL (12.0-15.0); Immature Granulocyte Absolute 0.07 K/mm3 (0.00-0.00); Immature Granulocyte Percent A 0.5 % (0.0-0.0); Lymphocytes Absolute Auto 4.28 K/mm3 (1.10-4.50); Lymphocytes Percent Auto 27.7 % (18.0-42.0); Mean Corpuscular HGB Conc 32.1 g/dL (32-36); Mean Corpuscular Hemoglobin 29.4 pg (27.0-31.0); Mean Corpuscular Volume 91.6 fL (78.0-102.0); Monocytes Absolute Auto 0.91 K/mm3 (0.10-0.90); Monocytes Percent Auto 5.9 % (2.0-11.0); Neutrophils Absolute Auto 9.67 K/mm3 (1.70-7.20); Neutrophils Percent Auto 62.6 % (50.0-70.0); Platelet Count Result 226 K/mm3 (150-420); Red Blood Count 4.18 M/mm3 (4.20-5.40); Red Cell Distribution Width 12.5 % (11.6-14.4); White Blood Count 15.4 K/mm3 (4.8-10.8)
[2024-01-27 18:18] LABS: Lactic Acid Reflex 0.7 mmol/L (0.4-2.0)
[2024-01-27 18:20] LABS: Alanine Aminotransferase 30 U/L (14-59); Albumin Level 3.6 g/dL (3.4-5.0); Alkaline Phosphatase 89 U/L (46-116); Anion Gap 8 mmol/L (4-12); Aspartate Amino Transferase 17 U/L (15-37); Bilirubin,Total 0.5 mg/dL (0.00-1.00); Blood Urea Nitrogen 43 mg/dL (7-18); Calcium 9.3 mg/dL (8.5-10.1); Carbon Dioxide 32 mmol/L (21-32); Chloride 99 mmol/L (98-108); Estimated CRCL calculation 51 ml/min; Estimated Glomerular Filt Rate 38; Glucose 100 mg/dL (70-99); NT Pro B Type Natriuretic Pept 78 pg/mL (0-125); Osmolality Calculated 298 mOsm/kg (285-295); Potassium 3.6 mmol/L (3.5-5.1); Sodium 139 mmol/L (136-145); Total Protein 6.8 g/dL (6.4-8.2); Troponin I < 4.0 ng/L (0.00-60.4)
== END 2024-01-27 18:50 | disposition home or self-care (01) ==
PROVIDERS: Internal Medicine Critical Care Medicine; Emergency Provider Family Medicine; PCP Family Medicine
DX: R07.89 Other chest pain (principal); F41.9 Anxiety disorder, unspecified; F32.A Depression, unspecified; I12.9 Hypertensive chronic kidney disease with stage 1 through stage 4 chronic kidney disease, or unspecified chronic kidney disease; E13.22 Other specified diabetes mellitus with diabetic chronic kidney disease; N18.30 Chronic kidney disease, stage 3 unspecified; E03.9 Hypothyroidism, unspecified; Z79.899 Other long term (current) drug therapy
CPT/HCPCS: 36415; 71045; 80053; 83605; 83880; 84484; 85025; 93005; 99284

== ENCOUNTER 2024-02-09 12:27 | Outpatient (CLI) | payer MEDICARE, MEDICAID, SELFPAY ==
--- NOTE | ~2024-02-09 | MM_ITS ---
EXAMINATION: MM screening venkat BI w iram HISTORY: Screening TECHNIQUE: Craniocaudal and mediolateral oblique 3-D tomosynthesis images were obtained and synthetic 2-D images were generated. CAD analysis was submitted and interpreted. COMPARISON: Comparison to multiple prior studies sequentially, with oldest reviewed study dated 02/2021. BREAST PARENCHYMAL COMPOSITION: Not dense: There are scattered areas of fibroglandular density. FINDINGS: There is no evidence of suspicious mass, calcification, or architectural distortion to sugg est malignancy in either breast. There has been no suspicious interval change. IMPRESSION: 1. No mammographic evidence of malignancy. 2. Recommend routine screening mammography in one year. BI-RADS Category 1: Negative Reviewed, dictated and finalized at location B.
[2024-02-09 13:07] LABS: Magnesium 1.7 mg/dL (1.8-2.4)
== END 2024-02-09 12:28 | disposition home or self-care (01) ==
PROVIDERS: PCP Family Medicine; Visit Provider Nurse Practitioner Family
DX: Z12.31 Encounter for screening mammogram for malignant neoplasm of breast (principal); D51.9 Vitamin B12 deficiency anemia, unspecified
CPT/HCPCS: 36415; 77063; 77067; 83735

== ENCOUNTER 2024-02-15 06:37 | Outpatient (CLI) | payer MEDICARE, MEDICAID, SELFPAY ==
--- NOTE | ~2024-02-15 | MR_ITS ---
EXAMINATION: MR hip LT wo con DATE: 02/15/2024 07:51 INDICATION: Hip pain TECHNIQUE: Magnetic resonance imaging (MRI) of the left hip was performed without intravenous contra st. Sequences included full-field axial PD-weighted FS FSE and T1-weighted FSE, coronal of the pelvis with PD-weighted FS FSE, small field of view of the left hip with axial PD-weighted FS FSE, sagitta l PD-weighted FS FSE and coronal PD weighted FS FSE. COMPARISON: None FINDINGS: Bones/labrum/cartilage: Mild lower lumbar levocurvature with severe spondylosis. No fracture, avascular necrosis or patholog ic marrow replacing process. Severe osteoarthritis of the left hip with full/near full-thickness cart ilage loss with subarticular edema-like signal change at the posterior, posterior superior and supero medial aspect of the joint space. There is diffuse tearing of the left acetabular labrum. There is si milar diffuse tearing of the right acetabular labrum with mild to moderate osteoarthritis at the cont ralateral right hip. Fluid: There are likely reactive small bilateral hip joint effusions. 4.9 x 3.2 x 3.6 cm multilocular gangli on cyst extending anteroinferiorly from the left hip joint. There are few smaller ganglion cysts boris uring up to 1.6 cm extending posterior inferiorly from the right hip joint. No bursitis, free fluid i n the pelvis or other abnormal fluid collections. Soft tissues: There is relatively symmetric diffuse mild fatty muscular atrophy with normal signal in the pelvis an d visualized proximal thighs likely related to age and deconditioned state. The iliopsoas, gluteal an d proximal hamstring tendons are normal. Atrophic versus surgically absent uterus. Bilateral adnexa a re unremarkable.. Liquid stool within the sigmoid colon consistent with nonspecific diarrhea. There i s a relatively ahaustral pattern to the sigmoid colon. Normal appendix. No pathologically enlarged p elvic/inguinal lymphadenopathy. IMPRESSION: 1. Diffuse bilateral labral tears with severe osteoarthritis with associated large multiloculated stewart glion cyst at the left hip and mild to moderate osteoarthritis with a few small ganglion cysts at the right hip. 2. Mild lumbar levocurvature was severe spondylosis. Reviewed, dictated and finalized at location B. IMPRESSION: 1. Diffuse bilateral labral tears with severe osteoarthritis with associated la rge multiloculated ganglion cyst at the left hip and mild to moderate osteoarth ritis with a few small ganglion cysts at the right hip. 2. Mild lumbar levocurvature was severe spondylosis.
--- NOTE | ~2024-02-15 | MR_ITS ---
MRI of the lumbar spine Clinical History: Back pain Technique: Axial T2-weighted images, and sagittal T1-weighted, T2-weighted, and T2 fat-sat images wer e acquired. Findings: No acute fracture seen. There is minimal grade 1 anterolisthesis of L4 over L5. No suspicio us bone marrow signal reality identified. At L1-L2, there is mild degenerative distended. There is minimal disc bulge and moderate facet arthro darrius. No central canal stenosis or neural foraminal narrowing. At L2-L3, there is minimal disc bulge with severe facet arthropathy. There is minimal central canal s tenosis, and mild left neural foraminal narrowing. Right neural foramen preserved. At L3-L4, there is central disc protrusion with mild disc bulge and moderate to advanced facet arthro darrius. There is moderate central canal stenosis/thecal sac compression. There is minimal bilateral ne ural foraminal narrowing. At L4-L5, there is moderate to advanced degenerative disc narrowing. There is diffuse disc bulge with probable superimposed disc protrusion and severe facet arthropathy. There is severe spinal canal taj nosis/thecal sac compression. There is mild to moderate right neural foraminal narrowing, and mild le ft neural foraminal narrowing. At L5-S1, there is moderate degenerative disc narrowing. There is diffuse disc bulge with moderate fa cet arthropathy. No central canal stenosis or definite neural foraminal narrowing. Paravertebral soft tissues are unremarkable. Impression: Severe degenerative spondylosis at L4-L5. Moderate degenerative spondylosis at L3-L4. Additional degenerative changes, as above. Reviewed, dictated and finalized at [facility]. Impression: Severe degenerative spondylosis at L4-L5. Moderate degenerative spondylosis at L3-L4. Additional degenerative changes, as above.
== END 2024-02-15 06:38 | disposition home or self-care (01) ==
LOC: CHSIMG 06:40
PROVIDERS: PCP Family Medicine; Visit Provider Nurse Practitioner Family
DX: M25.552 Pain in left hip (principal); M54.9 Dorsalgia, unspecified; M43.06 Spondylolysis, lumbar region; M16.0 Bilateral primary osteoarthritis of hip; S73.191A Other sprain of right hip, initial encounter; M67.451 Ganglion, right hip
CPT/HCPCS: 72148; 73721

== ENCOUNTER 2024-02-16 09:17 | Outpatient (CLI) | payer MEDICARE, MEDICAID, SELFPAY ==
[2024-02-16 09:36] VITALS: BMI 37.6
[2024-02-16] MEDS: SODIUM CHLORIDE 0.9% IVPB (09:45)
[2024-02-16] MEDS: MAGNESIUM SULFATE IVPB (09:45)
[2024-02-16] MEDS: CYANOCOBALAMIN INJ 1,000 MCG/ML VIAL 1000 MCG IM (09:51)
[2024-02-16 09:53] VITALS: BP 126/80; PULSE 89; RESP 14; TEMP 36.4; O2SAT 98
[2024-02-16 13:16] VITALS: BP 123/69; PULSE 86; RESP 14; O2SAT 98
--- NOTE | 2024-02-16 13:18 | PC.NURSE ---
Here for Magnesium infusion and B12 injection. Education given. No concerns voiced. Medication administered. SEE MAR. Tolerated well. Safe exit of hospital.
== END 2024-02-16 09:18 | disposition home or self-care (01) ==
PROVIDERS: PCP Family Medicine; Visit Provider Nurse Practitioner Family
DX: D51.9 Vitamin B12 deficiency anemia, unspecified (principal)
CPT/HCPCS: 96365; 96366; 96372; J3420; J3475; J7050

== ENCOUNTER 2024-03-19 08:53 | Outpatient (CLI) | payer MEDICARE, MEDICAID, SELFPAY ==
[2024-03-19 09:24] LABS: Appearance Urine Clear (Clear); Bilirubin Urine Negative (Negative); Blood Urine Negative (Negative); Color Urine Yellow (Yellow); Glucose Urine UA 3+ (Negative); Ketones Urine Negative (Negative); Leukocyte Esterase Ur Negative LEU/UL (Negative); Nitrate Urine Negative (Negative); Protein Urine Negative (Negative); Urobilinogen Urine 0.2 mg/dL (0.2-1.0)
[2024-03-19 09:42] LABS: Add Urine Microscopic? YES; Bacteria Urine Trace /hpf; RBC Urine 0-2 /hpf (0-2); Squamous Epithelial Cell Urine Few /hpf (Few); WBC Urine None seen /hpf (0-3)
[2024-03-19 09:45] LABS: Alanine Aminotransferase 22 U/L (14-59); Albumin Level 3.2 g/dL (3.4-5.0); Alkaline Phosphatase 73 U/L (46-116); Anion Gap 6 mmol/L (4-12); Aspartate Amino Transferase 17 U/L (15-37); Bilirubin,Total 0.5 mg/dL (0.00-1.00); Blood Urea Nitrogen 27 mg/dL (7-18); Calcium 9.3 mg/dL (8.5-10.1); Carbon Dioxide 31 mmol/L (21-32); Chloride 105 mmol/L (98-108); Estimated Glomerular Filt Rate 36; Glucose 136 mg/dL (70-99); Magnesium 1.1 mg/dL (1.8-2.4); Osmolality Calculated 301 mOsm/kg (285-295); Potassium 3.4 mmol/L (3.5-5.1); Sodium 142 mmol/L (136-145); Total Protein 6.5 g/dL (6.4-8.2)
[2024-03-19] MEDS: MAGNESIUM SULFATE IVPB (10:00)
[2024-03-19] MEDS: SODIUM CHLORIDE 0.9% IVPB (10:00)
[2024-03-19] MEDS: CYANOCOBALAMIN INJ 1,000 MCG/ML VIAL 1000 MCG IM (10:02)
[2024-03-19 10:08] VITALS: BP 101/65; PULSE 72; RESP 16; TEMP 36.4; O2SAT 98; BMI 37.6
[2024-03-19 13:05] VITALS: BP 118/68; PULSE 68; RESP 14
--- NOTE | 2024-03-19 13:07 | PC.NURSE ---
Patient here for monthly Magnesium infusion and Vitamin B12 injection. Mag level 1.1. Education given. No concerns voiced. Medication administered see MAR/patient care notes. Tolerated well.
== END 2024-03-19 08:54 | disposition home or self-care (01) ==
PROVIDERS: PCP Family Medicine; Visit Provider Nurse Practitioner Family
DX: D51.9 Vitamin B12 deficiency anemia, unspecified (principal); M54.50 Low back pain, unspecified; M79.89 Other specified soft tissue disorders
CPT/HCPCS: 36415; 80053; 81001; 83735; 96365; 96366; 96372; J3420; J3475; J7050

== ENCOUNTER 2024-03-25 13:43 | Outpatient (CLI) | payer MEDICARE, MEDICAID, SELFPAY ==
--- NOTE | ~2024-03-25 | XR_ITS ---
EXAMINATION: XR lg joint inject/asp add DATE: 03/25/2024 14:43 INDICATION: Left hip pain. TECHNIQUE: A time-out was performed to verify the patient's name, date of , and procedure to b e performed. The procedure including the risks, benefits, and alternatives was discussed with the pat ient. Risks discussed included bleeding and infection. The patient understood the risks and agreed to proceed. The skin overlying the left hip joint was prepped and draped in usual sterile fashion. An esthetic was administered with 1% lidocaine subcutaneously. A 22 G needle was advanced under fluoros copic guidance into the joint. Subsequently, injectate consisting of 2 mL 0.5% bupivacaine and 1 mL 80 mg/mL Depo-Medrol was instilled. The needle was removed and the entry site was cleaned and dresse d. There were no immediate complications. Fluoroscopy exposure time was 0.1 minutes. The total numbe r of images was 1. FINDINGS: Real-time fluoroscopy demonstrates the needle in the left hip joint. Patient's pain prior t o procedure:4/10. Patient's pain following the procedure: 0/10. IMPRESSION: 1. Fluoroscopy guided left hip joint injection of local anesthetic and steroid with decrease in the p atient's presenting pain. Reviewed, dictated and finalized at location A. IMPRESSION: 1. Fluoroscopy guided left hip joint injection of local anesthetic and steroid with decrease in the patient's presenting pain.
--- NOTE | ~2024-03-25 | XR_ITS ---
EXAMINATION: XR lg joint inject/asp w image DATE: 03/25/2024 14:42 INDICATION: Right hip arthritis. TECHNIQUE: A time-out was performed to verify the patient's name, date of , and procedure to b e performed. The procedure including the risks, benefits, and alternatives was discussed with the pat ient. Risks discussed included bleeding and infection. The patient understood the risks and agreed to proceed. The skin overlying the right hip joint was prepped and draped in usual sterile fashion. A nesthetic was administered with 1% lidocaine subcutaneously. A 22 G needle was advanced under fluoro scopic guidance into the joint. Subsequently, injectate consisting of 2 mL 0.5% bupivacaine and 1 mL 80 mg/mL Depo-Medrol was instilled. The needle was removed and the entry site was cleaned and dress ed. There were no immediate complications. Fluoroscopy exposure time was 0.1 minutes. The total numb er of images was 1. FINDINGS: Real-time fluoroscopy demonstrates the needle in the right hip joint. Patient's pain prior to procedure:4/10. Patient's pain following the procedure: 0/10. IMPRESSION: 1. Fluoroscopy guided right hip joint injection of local anesthetic and steroid with decrease in the patient's presenting pain. Reviewed, dictated and finalized at location A.
== END 2024-03-25 13:44 | disposition home or self-care (01) ==
PROVIDERS: PCP Family Medicine; Visit Provider Orthopaedic Surgery
DX: M16.0 Bilateral primary osteoarthritis of hip (principal)
CPT/HCPCS: 20610; 77002; J1010

== ENCOUNTER 2024-04-05 13:55 | Outpatient (CLI) | payer MEDICARE, SELFPAY ==
[2024-04-13 00:44] LABS: Calprotectin, Stool 118 mcg/g
== END 2024-04-05 13:56 | disposition home or self-care (01) ==
LOC: CHSLAB 13:56
PROVIDERS: PCP Family Medicine; Visit Provider Nurse Practitioner Family
DX: R19.5 Other fecal abnormalities (principal)
CPT/HCPCS: 83993

== ENCOUNTER 2024-04-16 08:39 | Outpatient (CLI) | payer MEDICARE, SELFPAY ==
[2024-04-16 08:54] VITALS: BMI 37.3
[2024-04-16 09:09] VITALS: BP 106/60; PULSE 80; RESP 16; TEMP 36.6; O2SAT 99
[2024-04-16 09:12] LABS: Magnesium 1.2 mg/dL (1.8-2.4)
[2024-04-16] MEDS: CYANOCOBALAMIN INJ 1,000 MCG/ML VIAL 1000 MCG IM (09:25)
[2024-04-16] MEDS: SODIUM CHLORIDE 0.9% IVPB (09:40)
[2024-04-16] MEDS: MAGNESIUM SULFATE IVPB (09:40)
[2024-04-16 12:55] VITALS: BP 111/63; PULSE 80; RESP 16; O2SAT 97
--- NOTE | 2024-04-16 12:56 | PC.NURSE ---
Patient here for monthly IV Magnesium infusion and B12 injection. Education given. No concerns voiced. Medication administered. SEE MAR/patient care notes. Tolerated well.
== END 2024-04-16 08:40 | disposition home or self-care (01) ==
PROVIDERS: PCP Family Medicine; Visit Provider Nurse Practitioner Family
DX: D51.9 Vitamin B12 deficiency anemia, unspecified (principal)
CPT/HCPCS: 36415; 83735; 96365; 96366; 96372; J3420; J3475; J7050

== ENCOUNTER 2024-04-30 07:49 | Outpatient (CLI) | payer MEDICARE, MEDICAID, SELFPAY ==
[2024-04-30 08:02] LABS: Basophils Absolute Auto 0.07 K/mm3 (0.00-0.10); Basophils Percent Auto 0.7 % (0.0-1.0); Eosinophils Absolute Auto 0.32 K/mm3 (0.02-0.50); Eosinophils Percent Auto 3.4 % (1.0-6.0); Hematocrit 36.5 % (35.0-49.0); Hemoglobin 11.9 g/dL (12.0-15.0); Immature Granulocyte Absolute 0.07 K/mm3 (0.00-0.00); Immature Granulocyte Percent A 0.7 % (0.0-0.0); Lymphocytes Absolute Auto 3.36 K/mm3 (1.10-4.50); Lymphocytes Percent Auto 35.9 % (18.0-42.0); Mean Corpuscular HGB Conc 32.6 g/dL (32-36); Mean Corpuscular Hemoglobin 30.2 pg (27.0-31.0); Mean Corpuscular Volume 92.6 fL (78.0-102.0); Mean Platelet Volume 9.5 fl (9.2-11.8); Monocytes Absolute Auto 0.57 K/mm3 (0.10-0.90); Monocytes Percent Auto 6.1 % (2.0-11.0); Neutrophils Absolute Auto 4.98 K/mm3 (1.70-7.20); Neutrophils Percent Auto 53.2 % (50.0-70.0); Platelet Count Result 206 K/mm3 (150-420); Red Blood Count 3.94 M/mm3 (4.20-5.40); Red Cell Distribution Width 12.8 % (11.6-14.4); White Blood Count 9.4 K/mm3 (4.8-10.8)
[2024-04-30 08:43] LABS: Albumin Level 3.6 g/dL (3.4-5.0); Anion Gap 8 mmol/L (4-12); Blood Urea Nitrogen 41 mg/dL (7-18); Calcium 9.3 mg/dL (8.5-10.1); Carbon Dioxide 32 mmol/L (21-32); Chloride 104 mmol/L (98-108); Estimated Glomerular Filt Rate 39; Glucose 122 mg/dL (70-99); Magnesium 1.4 mg/dL (1.8-2.4); Osmolality Calculated 309 mOsm/kg (285-295); Phosphorus 4.5 mg/dL (2.6-4.7); Potassium 4.1 mmol/L (3.5-5.1); Sodium 144 mmol/L (136-145)
== END 2024-04-30 07:50 | disposition home or self-care (01) ==
LOC: CHSLAB 07:52
PROVIDERS: PCP Family Medicine
DX: N18.31 Chronic kidney disease, stage 3a (principal)
CPT/HCPCS: 36415; 80069; 83735; 85025

== ENCOUNTER 2024-05-09 13:11 | Outpatient (CLI) | payer MEDICARE, MEDICAID, SELFPAY ==
[2024-05-09 14:05] LABS: Free T4 Free Thyroxine 1.05 ng/dL (0.76-1.46)
[2024-05-11 05:14] LABS: Total Triiodothyronine (T3) 82 ng/dL (76-181)
== END 2024-05-09 13:12 | disposition home or self-care (01) ==
LOC: CHSLAB 13:12
PROVIDERS: PCP Nurse Practitioner Family; Visit Provider Nurse Practitioner Family
DX: E03.9 Hypothyroidism, unspecified (principal)
CPT/HCPCS: 36415; 84439; 84443; 84480

== ENCOUNTER 2024-05-28 12:20 | Outpatient (CLI) | payer MEDICARE, MEDICAID, SELFPAY ==
[2024-05-28 13:26] LABS: Magnesium 1.4 mg/dL (1.8-2.4)
== END 2024-05-28 12:21 | disposition home or self-care (01) ==
PROVIDERS: PCP Family Medicine; Visit Provider Family Medicine
DX: D51.9 Vitamin B12 deficiency anemia, unspecified (principal)
CPT/HCPCS: 36415; 83735

== ENCOUNTER 2024-06-06 16:19 | Outpatient (CLI) | payer MEDICARE, MEDICAID, SELFPAY ==
[2024-06-06 16:40] LABS: Basophils Absolute Auto 0.09 K/mm3 (0.00-0.10); Basophils Percent Auto 0.8 % (0.0-1.0); Eosinophils Absolute Auto 0.69 K/mm3 (0.02-0.50); Eosinophils Percent Auto 5.8 % (1.0-6.0); Hematocrit 32.7 % (35.0-49.0); Hemoglobin 11.1 g/dL (12.0-15.0); Immature Granulocyte Absolute 0.04 K/mm3 (0.00-0.00); Immature Granulocyte Percent A 0.3 % (0.0-0.0); Lymphocytes Absolute Auto 3.15 K/mm3 (1.10-4.50); Lymphocytes Percent Auto 26.3 % (18.0-42.0); Mean Corpuscular HGB Conc 33.9 g/dL (32-36); Mean Corpuscular Hemoglobin 30.7 pg (27.0-31.0); Mean Corpuscular Volume 90.6 fL (78.0-102.0); Mean Platelet Volume 10.1 fl (9.2-11.8); Monocytes Absolute Auto 0.49 K/mm3 (0.10-0.90); Monocytes Percent Auto 4.1 % (2.0-11.0); Neutrophils Absolute Auto 7.51 K/mm3 (1.70-7.20); Neutrophils Percent Auto 62.7 % (50.0-70.0); Platelet Count Result 231 K/mm3 (150-420); Red Blood Count 3.61 M/mm3 (4.20-5.40); Red Cell Distribution Width 12.2 % (11.6-14.4)
[2024-06-06 18:00] LABS: Alanine Aminotransferase 17 U/L (14-59); Albumin Level 3.3 g/dL (3.4-5.0); Alkaline Phosphatase 85 U/L (46-116); Anion Gap 10 mmol/L (4-12); Aspartate Amino Transferase 10 U/L (15-37); Bilirubin,Total 0.4 mg/dL (0.00-1.00); Blood Urea Nitrogen 32 mg/dL (7-18); Calcium 8.9 mg/dL (8.5-10.1); Carbon Dioxide 29 mmol/L (21-32); Chloride 104 mmol/L (98-108); Estimated Glomerular Filt Rate 37; Free T4 Free Thyroxine 1.15 ng/dL (0.76-1.46); Glucose 162 mg/dL (70-99); Iron 61 ug/dL (50-170); Osmolality Calculated 306 mOsm/kg (285-295); Percent Iron Saturation 28 % (12-57); Potassium 3.6 mmol/L (3.5-5.1); Sodium 143 mmol/L (136-145); Thyroid Stimulating Hormone 0.87 uIU/mL (0.36-3.74); Vitamin B12 786 pg/mL (193-986)
[2024-06-06 18:02] LABS: Ferritin > 1000 ng/mL (8-252)
== END 2024-06-06 16:20 | disposition home or self-care (01) ==
PROVIDERS: PCP Nurse Practitioner Family; Visit Provider Nurse Practitioner Family
DX: R68.89 Other general symptoms and signs (principal); Z79.899 Other long term (current) drug therapy; E03.9 Hypothyroidism, unspecified; F32.A Depression, unspecified; I10 Essential (primary) hypertension; R79.89 Other specified abnormal findings of blood chemistry; E53.8 Deficiency of other specified B group vitamins; D64.9 Anemia, unspecified
CPT/HCPCS: 36415; 80053; 82306; 82607; 82728; 83540; 83550; 84439; 84443; 84480; 85025

== ENCOUNTER 2024-06-13 09:09 | Outpatient (CLI) | payer MEDICARE, MEDICAID, SELFPAY ==
[2024-06-13 09:24] LABS: Add Urine Microscopic? NO; Appearance Urine Clear (Clear); Bilirubin Urine Negative (Negative); Blood Urine Negative (Negative); Color Urine Light Yellow (Yellow); Glucose Urine UA 3+ (Negative); Ketones Urine Negative (Negative); Leukocyte Esterase Ur Negative LEU/UL (Negative); Nitrate Urine Negative (Negative); Protein Urine Negative (Negative); Urobilinogen Urine 0.2 mg/dL (0.2-1.0); pH Urine 5.5 (5.0-8.0)
== END 2024-06-13 09:10 | disposition home or self-care (01) ==
LOC: CHSLAB 09:11
PROVIDERS: PCP Nurse Practitioner Family; Visit Provider Nurse Practitioner Family
DX: Z87.898 Personal history of other specified conditions (principal)
CPT/HCPCS: 81003

== ENCOUNTER 2024-06-19 11:05 | Outpatient (CLI) | payer MEDICARE, MEDICAID, SELFPAY ==
--- NOTE | ~2024-06-19 | CT_ITS ---
CT facial bones wo con Ordering provider: Lilliana Gomez APRN History: . FALL X2DAYS AGO,LT FACE/HEAD INJURY,BRUISING . Comparison: None. Technique: Thin slice axial CT of the facial bones was performed without contrast. Coronal and sagit mari reformatted images were also obtained. . Automated exposure control and iterative reconstruction technique were employed. The dose-length product was 576.25 mGy-cm. FINDINGS: PARANASAL SINUSES: Right maxillary sinus disease. BONES: No facial fracture including no nasal bone fracture. ORBITS AND SUPERFICIAL SOFT TISSUES: The optic globes and orbits are normal. Minimal fat stranding an terior to the left maxillary sinus. Otherwise, The superficial soft tissues are normal. VISUALIZED MASTOIDS: Well aerated. LIMITED VISUALIZED BRAIN PARENCHYMA: Normal. IMPRESSION: No facial fracture. Right maxillary sinus disease. Minimal subcutaneous fat stranding anterior to the left maxillary sinus. Reviewed, dictated and finalized at location A.
--- NOTE | ~2024-06-19 | XR_ITS ---
AP and lateral views of the left hip Clinical history: Pain Findings: No acute fracture or dislocation is seen. Osseous alignment is anatomic. There is moderate left hip joint degenerative change. Soft tissues are unremarkable. Impression: Moderate left hip joint degenerative change. Reviewed, dictated and finalized at location . Impression: Moderate left hip joint degenerative change.
--- NOTE | ~2024-06-19 | XR_ITS ---
3 VIEWS LUMBAR SPINE Ordering provider: Lilliana Gomez APRN History: . W19.XXXA - Unspecified fall, initial encounter . Comparison: December 18, 2023 FINDINGS: VERTEBRAL BODIES:Transitional vertebra is noted. Minimal anterolisthesis seen at the level of L5-S1. No visible fracture or subluxation. Degenerative changes of the spine. Loss of height of T11 and T12 most likely chronic. Severe bending of the coccyx. DISK SPACES: Narrowing of the disc L1-L2, L2-L3, L4-L5 and L5-S1. Narrowing of the disc S1-S2 is also noted. Facet joint disease at the level of L5-S1 and S1-S2. SOFT TISSUES: Atherosclerotic changes of the aorta. Bilateral hip osteoarthritic changes more on the left side. IMPRESSION: No acute osseous abnormality lumbar spine. Multilevel degenerative disc disease. Old compression fractures of T11 and T12. Reviewed, dictated and finalized at location A.
--- NOTE | ~2024-06-19 | CT_ITS ---
EXAMINATION: CT brain wo con DATE: 06/19/2024 11:32 INDICATION: Head injury. TECHNIQUE: Computed tomography (CT) of the head was performed without intravenous contrast. The mA wa s adjusted according to patient size. Iterative reconstruction technique was employed. The dose-lengt h product was 681.00 mGy-cm. COMPARISON: Head CT 03/20/2008 FINDINGS: There is no intracranial hemorrhage, acute infarction, or abnormal intracranial mass lesion . The ventricles are normal in size. There is mild mucosal thickening in the ethmoid sinuses. There a re likely changes of ocular lens replacement surgeries. The mastoid air cells are normal. IMPRESSION: 1. Normal brain. Reviewed, dictated and finalized at location B. IMPRESSION: 1. Normal brain.
[2024-06-19 12:24] LABS: Magnesium 1.5 mg/dL (1.8-2.4)
[2024-06-21 03:50] LABS: Vitamin D 25 Hydroxy 39 ng/mL (30-100)
[2024-06-22 03:18] LABS: Total Triiodothyronine (T3) 69 ng/dL (76-181)
== END 2024-06-19 11:06 | disposition home or self-care (01) ==
PROVIDERS: PCP Nurse Practitioner Family; Visit Provider Nurse Practitioner Family
DX: D51.9 Vitamin B12 deficiency anemia, unspecified (principal); E83.42 Hypomagnesemia; Z79.899 Other long term (current) drug therapy; R68.89 Other general symptoms and signs; R79.89 Other specified abnormal findings of blood chemistry; M51.369 Other intervertebral disc degeneration, lumbar region without mention of lumbar back pain or lower extremity pain; M48.56XA Collapsed vertebra, not elsewhere classified, lumbar region, initial encounter for fracture; J32.0 Chronic maxillary sinusitis
CPT/HCPCS: 36415; 70450; 70486; 72100; 73502; 82306; 83735; 84480

== ENCOUNTER 2024-06-26 13:20 | Outpatient (CLI) | payer MEDICARE, MEDICAID, SELFPAY ==
--- NOTE | ~2024-06-26 | XR_ITS ---
EXAMINATION: XR lg joint inject/asp w image DATE: 06/26/2024 14:28 INDICATION: Left hip arthritis. TECHNIQUE: A time-out was performed to verify the patient's name, date of , and procedure to b e performed. The procedure including the risks, benefits, and alternatives was discussed with the pat ient. Risks discussed included bleeding and infection. The patient understood the risks and agreed to proceed. The skin overlying the left hip joint was prepped and draped in usual sterile fashion. An esthetic was administered with 1% lidocaine subcutaneously. A 22 G needle was advanced under fluoros copic guidance into the joint. Subsequently, injectate consisting of 2 mL 0.5% bupivacaine and 1 mL 80 mg/mL Depo-Medrol was instilled. The needle was removed and the entry site was cleaned and dresse d. There were no immediate complications. Fluoroscopy exposure time was 0.1 minutes. The total numbe r of images was 1. FINDINGS: Real-time fluoroscopy demonstrates the needle in the left hip joint. Patient's pain prior t o procedure:03/30. Patient's pain following the procedure: 09/30. IMPRESSION: 1. Fluoroscopy guided left hip joint injection of local anesthetic and steroid with decrease in the p atient's presenting pain. Reviewed, dictated and finalized at location A. PACKER OPERATOR IMPRESSION: 1. Fluoroscopy guided left hip joint injection of local anesthetic and steroid with decrease in the patient's presenting pain.
--- NOTE | ~2024-06-26 | XR_ITS ---
EXAMINATION: XR lg joint inject/asp add DATE: 06/26/2024 14:26 INDICATION: Right hip arthritis. TECHNIQUE: A time-out was performed to verify the patient's name, date of , and procedure to b e performed. The procedure including the risks, benefits, and alternatives was discussed with the pat ient. Risks discussed included bleeding and infection. The patient understood the risks and agreed to proceed. The skin overlying the right hip joint was prepped and draped in usual sterile fashion. A nesthetic was administered with 1% lidocaine subcutaneously. A 22 G needle was advanced under fluoro scopic guidance into the joint. Subsequently, injectate consisting of 2 mL 0.5% bupivacaine and 1 mL 80 mg/mL Depo-Medrol was instilled. The needle was removed and the entry site was cleaned and dress ed. There were no immediate complications. Fluoroscopy exposure time was 0.1 minutes. The total numb er of images was 1. FINDINGS: Real-time fluoroscopy demonstrates the needle in the right hip joint. Patient's pain prior to procedure:8/10. Patient's pain following the procedure: 2/. IMPRESSION: 1. Fluoroscopy guided right hip joint injection of local anesthetic and steroid with decrease in the patient's presenting pain. Reviewed, dictated and finalized at location A. PRESIDENT PAYER
== END 2024-06-26 13:21 | disposition home or self-care (01) ==
LOC: ANHIMG 13:22
PROVIDERS: PCP Nurse Practitioner Family; Visit Provider Orthopaedic Surgery
DX: M16.0 Bilateral primary osteoarthritis of hip (principal)
CPT/HCPCS: 20610; 77002; J1010

== ENCOUNTER 2024-06-26 17:40 | Outpatient (CLI) | payer MEDICARE, MEDICAID, SELFPAY ==
--- NOTE | ~2024-06-26 | XR_ITS ---
Left Hand Technique: PA, oblique, and lateral views were obtained. Clinical History: Status post fall Findings: No acute fracture or dislocation is seen. Osseous alignment is anatomic. There is moderate degenerative change of the third MCP joint. Soft tissues are unremarkable. Impression: Moderate degenerative change of the third MCP joint. Reviewed, dictated and finalized at [facility]. ERY TEACHER Impression: Moderate degenerative change of the third MCP joint.
--- NOTE | ~2024-06-26 | XR_ITS ---
Left elbow Technique: AP, oblique, and lateral views were obtained. Clinical History: Pain Findings: No acute fracture or dislocation is seen. There is moderate degenerative changes throughout the elbow joint. Suture anchor noted at the lateral epicondylar region of the humerus. There is no d isplacement of the fat pads, and soft tissues are unremarkable. Probable 1 cm loose body present in t he joint. Impression: Moderate degenerative change of the elbow joint, with probable 1 cm loose body. Suture anchor at the lateral epicondyle humerus. Reviewed, dictated and finalized at location M. THETICS ASSISTANT Impression: Moderate degenerative change of the elbow joint, with probable 1 cm loose body. Suture anchor at the lateral epicondyle humerus.
== END 2024-06-26 17:41 | disposition home or self-care (01) ==
LOC: CHSIMG 17:42
PROVIDERS: PCP Family Medicine; Visit Provider Nurse Practitioner Family
DX: S59.902A Unspecified injury of left elbow, initial encounter (principal)
CPT/HCPCS: 73070; 73120

== ENCOUNTER 2024-07-24 08:09 | Outpatient (CLI) | payer MEDICARE, MEDICAID, SELFPAY ==
--- NOTE | ~2024-07-24 | US_ITS ---
Renal-Bladder ultrasound Clinical History: Right hydronephrosis Technique: Real-time sonographic imaging of the kidneys and urinary bladder was performed. Findings: The right kidney measures 10.7 cm in length and the left kidney measures 9.2 cm. There is n o hydronephrosis or renal calculus identified. Renal cortical echogenicity is mildly increased bilate rally. Right renal cyst noted. The urinary bladder is moderately distended at the time of this exam. No intraluminal echoes are iden tified. No abnormal wall thickening is seen. Impression: Mildly echogenic kidneys suggest chronic medical renal disease. Right renal cysts. No hydronephrosis. Reviewed, dictated and finalized at location M. EL SCRAPPER HELPER Impression: Mildly echogenic kidneys suggest chronic medical renal disease. Right renal cysts. No hydronephrosis.
--- NOTE | ~2024-07-24 | XR_ITS ---
Supine and upright views of the abdomen Clinical history: Abdominal pain, hydronephrosis Findings: Bowel gas pattern is nonspecific. No evidence for obstruction or free air. No abnormal mass lesion or calcification is seen. Osseous structures are intact. Impression: No significant abnormality is seen. Reviewed, dictated and finalized at [facility]. CLEANER Impression: No significant abnormality is seen.
[2024-07-24 08:56] LABS: Magnesium 1.1 mg/dL (1.8-2.4)
== END 2024-07-24 08:10 | disposition home or self-care (01) ==
PROVIDERS: PCP Family Medicine; Visit Provider Urology
DX: N13.30 Unspecified hydronephrosis (principal); D51.9 Vitamin B12 deficiency anemia, unspecified; N28.1 Cyst of kidney, acquired
CPT/HCPCS: 36415; 74018; 76775; 83735

== ENCOUNTER 2024-07-31 11:44 | Outpatient (CLI) | payer MEDICARE, MEDICAID, SELFPAY ==
[2024-07-31 13:00] LABS: Toxigenic C. Diff NEGATIVE (NEGATIVE)
[2024-08-07 15:03] LABS: Pancreatic Elastase, Stool 400 mcg/g (>200)
[2024-08-07 16:09] LABS: Calprotectin, Stool 17 mcg/g
== END 2024-07-31 11:45 | disposition home or self-care (01) ==
LOC: CHSLAB 11:46
PROVIDERS: PCP Family Medicine; Visit Provider Nurse Practitioner
DX: K52.9 Noninfective gastroenteritis and colitis, unspecified (principal)
CPT/HCPCS: 82653; 83993; 87045; 87269; 87427; 87449; 87493

== ENCOUNTER 2024-08-19 13:43 | Outpatient (CLI) | payer MEDICARE, SELFPAY ==
[2024-08-19 14:16] LABS: Basophils Absolute Auto 0.06 K/mm3 (0.00-0.10); Basophils Percent Auto 0.6 % (0.0-1.0); Eosinophils Absolute Auto 0.71 K/mm3 (0.02-0.50); Eosinophils Percent Auto 6.8 % (1.0-6.0); Hematocrit 34.1 % (35.0-49.0); Hemoglobin 11.2 g/dL (12.0-15.0); Immature Granulocyte Absolute 0.05 K/mm3 (0.00-0.00); Immature Granulocyte Percent A 0.5 % (0.0-0.0); Lymphocytes Percent Auto 25.8 % (18.0-42.0); Mean Corpuscular HGB Conc 32.8 g/dL (32-36); Mean Corpuscular Hemoglobin 29.5 pg (27.0-31.0); Mean Corpuscular Volume 89.7 fL (78.0-102.0); Mean Platelet Volume 9.2 fl (9.2-11.8); Monocytes Absolute Auto 0.54 K/mm3 (0.10-0.90); Monocytes Percent Auto 5.2 % (2.0-11.0); Neutrophils Absolute Auto 6.42 K/mm3 (1.70-7.20); Neutrophils Percent Auto 61.1 % (50.0-70.0); Platelet Count Result 203 K/mm3 (150-420); Red Cell Distribution Width 12.8 % (11.6-14.4); White Blood Count 10.5 K/mm3 (4.8-10.8)
[2024-08-19 14:51] LABS: Magnesium 1.1 mg/dL (1.8-2.4)
[2024-08-19 15:19] LABS: Alanine Aminotransferase 25 U/L (14-59); Albumin Level 3.4 g/dL (3.4-5.0); Alkaline Phosphatase 78 U/L (46-116); Anion Gap 8 mmol/L (4-12); Aspartate Amino Transferase 16 U/L (15-37); Bilirubin,Total 0.4 mg/dL (0.00-1.00); Blood Urea Nitrogen 29 mg/dL (7-18); Carbon Dioxide 32 mmol/L (21-32); Chloride 106 mmol/L (98-108); Estimated Glomerular Filt Rate 39; Glucose 142 mg/dL (70-99); Iron 44 ug/dL (50-170); Osmolality Calculated 309 mOsm/kg (285-295); Percent Iron Saturation 20 % (12-57); Potassium 3.4 mmol/L (3.5-5.1); Sodium 146 mmol/L (136-145); Vitamin B12 769 pg/mL (193-986)
[2024-08-19 15:21] LABS: Ferritin > 1000 ng/mL (8-252)
== END 2024-08-19 13:44 | disposition home or self-care (01) ==
LOC: CHSLAB 13:50
PROVIDERS: PCP Nurse Practitioner Family; Visit Provider Nurse Practitioner Family
DX: D64.9 Anemia, unspecified (principal); I10 Essential (primary) hypertension; E03.9 Hypothyroidism, unspecified; E53.8 Deficiency of other specified B group vitamins; E83.42 Hypomagnesemia
CPT/HCPCS: 36415; 80053; 82607; 82728; 83540; 83550; 83735; 85025

== ENCOUNTER 2024-09-16 07:26 | Outpatient (CLI) | payer MEDICARE, SELFPAY ==
[2024-09-16 08:02] VITALS: BP 106/67; PULSE 77; RESP 16; TEMP 36.6; O2SAT 99; BMI 36.8
[2024-09-16] MEDS: SODIUM CHLORIDE 0.9% IVPB (08:10)
[2024-09-16] MEDS: MAGNESIUM SULFATE IVPB (08:10)
[2024-09-16] MEDS: CYANOCOBALAMIN INJ 1,000 MCG/ML VIAL 1000 MCG IM (08:12)
[2024-09-16 08:52] LABS: Magnesium 1.2 mg/dL (1.8-2.4); Vitamin B12 716 pg/mL (193-986)
[2024-09-16 11:20] VITALS: BP 111/69; PULSE 68; RESP 14; TEMP 36.4; O2SAT 99
--- NOTE | 2024-09-16 11:36 | PC.NURSE ---
Patient here for monthly IV Magnesium (level 1.2) and B12 injection. Education given. No concerns voiced. Injection and infusion administered. SEE MAR/patient care notes. Patient tolerated her IV Magnesium infusion and B12 injection well
== END 2024-09-16 07:27 | disposition home or self-care (01) ==
PROVIDERS: PCP Nurse Practitioner Family; Visit Provider Nurse Practitioner Family
DX: E53.8 Deficiency of other specified B group vitamins (principal); E83.42 Hypomagnesemia
CPT/HCPCS: 36415; 82607; 83735; 96365; 96366; 96372; J3475; J7050

== ENCOUNTER 2024-10-29 12:12 | Outpatient (CLI) | payer MEDICARE, MEDICAID, SELFPAY ==
[2024-10-29 12:26] VITALS: BMI 39.3
[2024-10-29 12:31] LABS: Basophils Absolute Auto 0.08 K/mm3 (0.00-0.10); Basophils Percent Auto 0.8 % (0.0-1.0); Eosinophils Absolute Auto 0.53 K/mm3 (0.02-0.50); Eosinophils Percent Auto 5.4 % (1.0-6.0); Hematocrit 38.6 % (35.0-49.0); Hemoglobin 12.2 g/dL (12.0-15.0); Immature Granulocyte Absolute 0.03 K/mm3 (0.00-0.00); Immature Granulocyte Percent A 0.3 % (0.0-0.0); Lymphocytes Absolute Auto 2.71 K/mm3 (1.10-4.50); Lymphocytes Percent Auto 27.4 % (18.0-42.0); Mean Corpuscular HGB Conc 31.6 g/dL (32-36); Mean Corpuscular Hemoglobin 28.8 pg (27.0-31.0); Mean Corpuscular Volume 91.3 fL (78.0-102.0); Monocytes Absolute Auto 0.49 K/mm3 (0.10-0.90); Neutrophils Absolute Auto 6.04 K/mm3 (1.70-7.20); Neutrophils Percent Auto 61.1 % (50.0-70.0); Platelet Count Result 227 K/mm3 (150-420); Red Blood Count 4.23 M/mm3 (4.20-5.40); Red Cell Distribution Width 12.4 % (11.6-14.4); White Blood Count 9.9 K/mm3 (4.8-10.8)
[2024-10-29 12:34] VITALS: BP 108/66; PULSE 68; RESP 14; TEMP 36.5; O2SAT 97
[2024-10-29] MEDS: CYANOCOBALAMIN INJ 1,000 MCG/ML VIAL 1000 MCG IM (12:34)
--- NOTE | 2024-10-29 12:36 | PC.NURSE ---
Patient here for monthly B12 injection. Education given. No concerns voiced. Injection administered. SEE MAR/patient care notes. Tolerated well. Patient declining monthly Magnesium infusion today.
[2024-10-29 13:14] LABS: Anion Gap 7 mmol/L (4-12); Blood Urea Nitrogen 49 mg/dL (7-18); Calcium 10.5 mg/dL (8.5-10.1); Carbon Dioxide 31 mmol/L (21-32); Chloride 106 mmol/L (98-108); Estimated CRCL calculation 48 ml/min; Estimated Glomerular Filt Rate 35; Glucose 121 mg/dL (70-99); Magnesium 1.6 mg/dL (1.8-2.4); Osmolality Calculated 312 mOsm/kg (285-295); Phosphorus 3.9 mg/dL (2.6-4.7); Potassium 4.3 mmol/L (3.5-5.1); Sodium 144 mmol/L (136-145)
--- OUTSIDE RECORDS SUMMARY | 2024-10-29 13:34 | XMS_ITS ---
Author Organization [facility] Address [address] [place], [place] [phone] Care Team Providers Care Loin Puller Name Role Phone MIRIAN MOSHER Unavailable [phone] Virgilio Meehan Unavailable Unavailable ADRIEN CONTRERAS Unavailable [phone] REASON FOR VISIT *General care Encounters Encounter Location Date Provider Diagnosis [address] [id number] 08/08/2024 ADRIEN CONTRERAS Plan Of Treatment Next Appt Details Provider Name:WILFREDO MARTIN, 12/12/2024 03:30:00 PM, [address] [place] [address], [id number], Progress Notes * MATEUSZ MONROE ADOB:[birth year] (59 yo F)Acc No.[id number]:08/08/2024 Patient: MATEUSZ ZHU Provider: Bryon CONTRERAS :1965 A ge:58 Y S ex:Female Date:08/08/2024 Address:[address] [place], [place] [phone] Subjective: * Chief Complaints: * 1 . *General care. * Medical History: Objective: * Vitals: Assessment: Plan: * Treatment: * Billing Information: * Visit Code: * Procedure Codes: * Electronic signature of TIM CONTRERAS DPM on 10/29/2024 at 01:34 PM CDT Sign off status: Pending * Provider: Bryon CONTRERAS Date: 1 10/09/2023 Generated for Curt small/Ana Maria/Jose on: 0 10/29/2024 01:34 PM CDT
--- OUTSIDE RECORDS SUMMARY | 2024-10-29 13:34 | XMS_ITS | Patient Health Record ---
Author Organization [facility] Address [address] [place], [place] [phone] Care Team Providers Care Department Head Name Role Phone MIRIAN MOSHER Unavailable [phone] Virgilio Meehan Unavailable Unavailable ADRIEN CONTRERAS Unavailable [phone] Allergies No Known Allergies Reason For Referral No Information Medications Medication SIG (Take, Route, Frequency, Duration) Notes Start Date End Date Status nortriptyline 50 MG Oral Capsule ORAL nortriptyline 50 MG Oral CapsuleOriginal Medicationnortriptyline 50 MG Oral Capsule *Reorder from [employer] for eRx and Interaction Alerts* 04/07/20 14 Active Allopurinol 300 MG Oral Tablet ORAL allopurinol 300 MG Oral TabletOriginal Medicationallopurinol 300 MG Oral Tablet *Reorder from [employer] for eRx and Interaction Alerts* 04/07/20 14 Active esomeprazole 20 MG Injection INTRAVENOUS esomeprazole 20 MG InjectionOriginal Medicationesomeprazole 20 MG Injection *Reorder from [employer] for eRx and Interaction Alerts* 04/07/20 14 Active levothyroxine sodium 0.1 MG Oral Capsule ORAL levothyroxine sodium 0.1 MG Oral CapsuleOriginal Medicationlevothyroxine sodium 0.1 MG Oral Capsule *Reorder from [employer] for eRx and Interaction Alerts* 04/07/20 14 Active ciclopirox 80 MG/ML Topical Solution CUTANEOUS ciclopirox 80 MG/ML Topical SolutionOriginal Medicationciclopirox 80 MG/ML Topical Solution *Reorder from [employer] for eRx and Interaction Alerts* 04/20/20 12 Active cinnamon bark 500 MG Oral Capsule ORAL cinnamon bark 500 MG Oral CapsuleOriginal Medicationcinnamon bark 500 MG Oral Capsule *Reorder from [employer] for eRx and Interaction Alerts* 04/07/20 14 Active 3 ML insulin glargine 100 UNT/ML Pen Injector [Lantus] 3 ML insulin glargine 100 UNT/ML Pen Injector [Lantus]Original Medication3 ML insulin glargine 100 UNT/ML Pen Injector [Lantus] *[facility] Interaction [facility]* 04/07/20 14 Active cholecalciferol 0.025 MG Oral Capsule ORAL cholecalciferol 0.025 MG Ora l CapsuleOriginal Medicationcholecalciferol 0.025 MG Oral Capsule *Reorder from [employer] for eRx and Interaction Alerts* 04/07/20 14 Active Pravastatin Sodium 10 MG Oral Tablet ORAL pravastatin sodium 10 MG Ora l TabletOriginal Medicationpravastatin sodium 10 MG Oral Tablet *Reorder from [employer] for eRx and Interaction Alerts* 04/07/20 14 Active Losartan Potassium 100 MG Oral Tablet ORAL losartan potassium 100 MG Oral TabletOriginal Medicationlosartan potassium 100 MG Oral Tablet *Reorder from [employer] for eRx and Interaction Alerts* 04/07/20 14 Active Spironolactone 25 MG Oral Tablet ORAL spironolactone 25 MG Oral TabletOriginal Medicationspironolactone 25 MG Oral Tablet *Reorder from [employer] for eRx and Interaction Alerts* 04/07/20 14 Active propranolol hydrochloride 40 MG Oral Tablet ORAL propranolol hydrochloride 40 MG Oral TabletOriginal Medicationpropranolol hydrochloride 40 MG Oral Tablet *Reorder from [employer] for eRx and Interaction Alerts* 04/07/20 14 Active Nabumetone 500 MG Oral Tablet ORAL nabumetone 500 MG Oral TabletOriginal Medicationnabumetone 500 MG Oral Tablet *Reorder from [employer] for eRx and Interaction Alerts* 06/29/20 12 Active verapamil hydrochloride 40 MG Oral Tablet ORAL verapamil hydrochloride 40 M G Oral TabletOriginal Medicationverapamil hydrochloride 40 MG Oral Tablet *Reorder from [employer] for eRx and Interaction Alerts* 04/07/20 14 Active Immunizations Vaccine Route Administration Date Status Comme nts Influenza, unspecified formulation Unknown 06/30/2023 A dministered Vital Signs Height-cm 170.18 cm 02/08/2024 Weight-kg 113.85 kg 02/08/2024 Height 67.00 in 02/08/2024 Weight 251 lbs 02/08/2024 BMI 39.31 kg/m2 02/08/2024 Encounters Encounter Location Date Provider Diagnosis [address] [id number] 12/07/2023 ADRIEN CONTRERAS Unspecified atherosclerosis of [place] arteries of extremities, bilateral legs I70.203 ; Tinea unguium B35.1 ; Pain in left toe(s) M79.675 ; Other hammer toe(s) (acquired), right foot M20.41 ; Other hammer toe(s) (acquired), left foot M20.42 and Pain in right toe(s) M79.[address] [id number] 02/08/2024 ADRIEN CONTRERAS Unspecified atherosclerosis of [place] arteries of extremities, bilateral legs I70.203 ; Tinea unguium B35.1 ; Pain in left toe(s) M79.675 ; Other hammer toe(s) (acquired), right foot M20.41 ; Other hammer toe(s) (acquired), left foot M20.42 and Pain in right toe(s) M79.[address] [id number] 04/11/2024 ADRIEN CONTRERAS Unspecified atherosclerosis of [place] arteries of extremities, bilateral legs I70.203 ; Tinea unguium B35.1 ; Pain in left toe(s) M79.675 ; Other hammer toe(s) (acquired), right foot M20.41 ; Other hammer toe(s) (acquired), left foot M20.42 ; Pain in right toe(s) M79.674 and Acquired 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 [id number] 10/10/2024 MIRIAN MOSHER Tinea unguium B35.1 ; Acquired 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 ; Atherosclerosis of [place] arteries of extremities with intermittent claudication, bilateral legs I70.213 ; Pain in right foot M79.671 and Pain in left foot M79.672 Assessments Encounter Date Diagnosis (ICD Code) Assessment Notes Treatment Notes Treatment Clinical Notes Section Notes 12/07/2023 Tinea unguium (ICD-10 - B35.1) Aseptic debridement of elongated thickened nails x 10 using sterile nippers, nails were debrided in length and thickness by 30% utilizing a nail nipper without incident. The patient was educated regarding all treatment options that include topical and oral antifungal treatments. I discussed the options of taking a sample of the nail to confirm diagnosis. Nail clippings were not sent for pathology analysis. The patient was educated why and how the fungal infection evolved in their feet and the patient was given information regarding how to prevent further infection. The patient was told to keep feet dry and change socks. The patient was told to be careful with old shoes and excessive sweating. The patient was educated regarding both OTC and prescription treatments. 12/07/2023 Unspecified atherosclerosis of [place] arteries of extremities, bilateral legs (ICD-10 - I70.203) Patient educated on risks and aggravating factors of PVD, including conservative treatment options such as a diet and exercise regimen to aid in slowing progression of vascular disease 02/08/2024 Tinea unguium (ICD-10 - B35.1) Aseptic debridement of elongated thickened nails x 10 using sterile nippers, nails were debrided in length and thickness by 30% utilizing a nail nipper without incident. The patient was educated regarding all treatment options that include topical and oral antifungal treatments. I discussed the options of taking a sample of the nail to confirm diagnosis. Nail clippings were not sent for pathology analysis. The patient was educated why and how the fungal infection evolved in their feet and the patient was given information regarding how to prevent further infection. The patient was told to keep feet dry and change socks. The patient was told to be careful with old shoes and excessive sweating. The patient was educated regarding both OTC and prescription treatments. 02/08/2024 Unspecified atherosclerosis of [place] arteries of extremities, bilateral legs (ICD-10 - I70.203) Patient educated on risks and aggravating factors of PVD, including conservative treatment options such as a diet and exercise regimen to aid in slowing progression of vascular disease 04/11/2024 Tinea unguium (ICD-10 - B35.1) Aseptic debridement of elongated thickened nails x 10 using sterile nippers, nails were debrided in length and thickness by 30% utilizing a nail nipper without incident. The patient was educated regarding all treatment options that include topical and oral antifungal treatments. I discussed the options of taking a sample of the nail to confirm diagnosis. Nail clippings were not sent for pathology analysis. The patient was educated why and how the fungal infection evolved in their feet and the patient was given information regarding how to prevent further infection. The patient was told to keep feet dry and change socks. The patient was told to be careful with old shoes and excessive sweating. The patient was educated regarding both OTC and prescription treatments. 04/11/2024 Unspecified atherosclerosis of [place] arteries of extremities, bilateral legs (ICD-10 - I70.203) Patient educated on risks and aggravating factors of PVD, including conservative treatment options such as a diet and exercise regimen to aid in slowing progression of vascular disease 10/10/2024 Tinea unguium (ICD-10 - B35.1) Nails 1-5 Bilateral were debrided extensively with nail nippers and emery board, reducing length and girth to pink healthy tissue with any subungual debris and necrotic tissue removed 10/10/2024 Acquired keratosis [keratoderma] palmaris et plantaris (ICD-10 - L85.1) A total of ___ corns or calluses, as described in the note above, were cut and pared utilizing a #15 blade 10/10/2024 Atherosclerosis of [place] arteries of extremities with intermittent claudication, bilateral legs (ICD-10 - I70.213) 02/08/2024 Pain in left toe(s) (ICD-10 - M79.675) 04/11/2024 Pain in left toe(s) (ICD-10 - M79.675) 12/07/2023 Pain in left toe(s) (ICD-10 - M79.675) 12/07/2023 Other hammer toe(s) (acquired), right foot (ICD-10 - M20.41) The patient was educated regarding how to mechanically stabilize their deformity. The patient was given education about shoe recommendations specific for the condition. The patient was educated about custom orthotics and how appropriate shoes and orthotics can prevent further worsening of the deformity. The patient was educated about how bad shoe habits can worsen the condition. NSAIDS, P.T., injections and other conservative treatments were discussed. Both surgical and non surgical treatments were discussed, but conservative options were emphasized. 02/08/2024 Other hammer toe(s) (acquired), right foot (ICD-10 - M20.41) The patient was educated regarding how to mechanically stabilize their deformity. The patient was given education about shoe recommendations specific for the condition. The patient was educated about custom orthotics and how appropriate shoes and orthotics can prevent further worsening of the deformity. The patient was educated about how bad shoe habits can worsen the condition. NSAIDS, P.T., injections and other conservative treatments were discussed. Both surgical and non surgical treatments were discussed, but conservative options were emphasized. 04/11/2024 Other hammer toe(s) (acquired), right foot (ICD-10 - M20.41) The patient was educated regarding how to mechanically stabilize their deformity. The patient was given education about shoe recommendations specific for the condition. The patient was educated about custom orthotics and how appropriate shoes and orthotics can prevent further worsening of the deformity. The patient was educated about how bad shoe habits can worsen the condition. NSAIDS, P.T., injections and other conservative treatments were discussed. Both surgical and non surgical treatments were discussed, but conservative options were emphasized. 10/10/2024 Pain in right foot (ICD-10 - M79.671) 10/10/2024 Pain in left foot (ICD-10 - M79.672) 04/11/2024 Other hammer toe(s) (acquired), left foot (ICD-10 - M20.42) 02/08/2024 Other hammer toe(s) (acquired), left foot (ICD-10 - M20.42) 12/07/2023 Other hammer toe(s) (acquired), left foot (ICD-10 - M20.42) 12/07/2023 Pain in right toe(s) (ICD-10 - M79.674) 02/08/2024 Pain in right toe(s) (ICD-10 - M79.674) 04/11/2024 Pain in right toe(s) (ICD-10 - M79.674) 04/11/2024 Acquired keratosis [keratoderma] palmaris et plantaris (ICD-10 - L85.1) Pre-ulcerative keratoderma debrided sharply down to the level of healthy tissue using a 15 blade. After removal of overlying extensive hyperkeratosis, healthy tissue was noted and care was taken to assure that no undermining or probing was present. It should be noted that no probing was noted and no infection or drainage was noted. Plan Of Treatment Next Appt Details Provider Name:WILFREDO MARTIN, 12/12/2024 03:30:00 PM, [address] [place] [address], [phone], Insurance Providers Payer Name Payer Address Payer Phone Subscriber Number Group Number Insured Name Patient Relationship to Insured Coverage Start Date Coverage End Date [facility] [address] [address] [place] [id number] MATEUSZ MONROE Self - patient is the insured
--- OUTSIDE RECORDS SUMMARY | 2024-10-29 13:34 | XMS_ITS | Encounter Summary ---
Author Organization [facility] Address [facility] [place] [address] Care Team Providers Care Steam Tank Operator Name Role Phone Alexis Thurman MD Unavailable Unavailabl e Willian Mendoza MD Primary Care Provider [phone] Cee Liu APRN CRUSHER AND BINDER OPERATOR-C Unavailable [phone] Virgilio Meehan DO Primary Care Provider [phone] Mame Osborn MD Unavailable [phone] Encounter Details Date Type Department Care Team (Late st Contact Info) Description 07/04/2022 Abstract [facility] [address] [place] [address] Alexis Thurman MD Social History Tobacco Use Types Packs/Day Years Used Date Smoking Tobacco: Never Smokeless Tobacco: Never Alcohol Use Standard Drinks/Week Comments Not Currently 0 (1 standard drink = 0.6 oz pur e alcohol) Comments No Sex and Gender Information Value Date Recorded Sex Assigned at Not on file Legal Sex Female 1:26 AM CDT Gender Identity Not on file Sexual Orientation Not on file COVID-19 Exposure Response Date Recorded In the last 10 days, have yo u been in contact with someone who was confirmed or suspected to have Coronavirus/COVID-19? No / Unsure 06/29/2022 5:44 AM VOICE STUDIES DIRECTOR documented as of this encounter Plan of Treatment Upcoming Encounters Date Type Department Care Team (Late st Contact Info) Description 11/04/2024 10:30 AM CDT Office Visit [facility] [address] [place] [address] Gonzalez Wilson MD [address] [place] [address] Ella Witt MD [address] [place], [place] [id number] documented as of this encounter Procedures Procedure Name Priority Date/Time Associated Diagnosis Comments BASIC METABOLIC PANEL Routine 07/01/2022 documented in this encounter Results * (ABNORMAL) BASIC METABOLIC PANEL (07/01/2022) SODIUM S/P/B 142 136 - 145 POTASSIUM S/P/B 4.3 3.5 - 5.1 CO2 34 21 - 32 CHLORIDE S/P/B 100 98 - 108 GLUCOSE 187 70 - 99 mg/dL CALCIUM S/P/B 10.1 8.5 - 10.1 BUN 40 7 - 18 CREATININE S/P/B 1.80(A) 0.55 - 1.02 EGFR NON-AFR. AMER. 29 <=90 07/01/2022 us Default History Genericprovider LABORATORY Final Result documented in this encounter Visit Diagnoses Not on filedocumented in this encounter Care Teams Steam Tank Operator Relationship Specialty Start Date End Date Willian Mendoza MD [address] [place] [address] PCP - General INTERNAL MEDICINE 09/14/18 09/07/22 Virgilio Meehan DO [address] [place] [address] PCP - General FAMILY PRACTICE 09/08/22 Alexis Thurman MD [facility] [employer] Cutter CARDIOVASCULAR DISEASE 09/14/18 04/01/24 Cee Liu, SENIOR QUALITY CONTROL INSPECTOR, CRUSHER AND BINDER OPERATOR-C [address] [facility] [address] [place] [address] NURSE PRACTITIONER 05/27/22 Mame Osborn MD [address] [place] [address] INTERVENTIONAL CARDIOLOGY 05/10/24 documented as of this encounter
--- OUTSIDE RECORDS SUMMARY | 2024-10-29 13:34 | XMS_ITS | Clinical Summary ---
Author Organization [facility] [address] Address [address] [place] [id number] Care Team Providers Care Community Outreach Manager Name Role Phone Willian Mendoza MD Primary Care Provider [phone] Allergies Active Allergy Reactions Criticality Noted Date Comments Amoxicillin-Pot Clavulanate Diarrhea Low 05/27/2022 Metformin Diarrhea Low 07/19/2022 Pantoprazole Other (See comments) Low 05/27/2022 Hypomagnesemia Medications lancing device misc Lancing device for Contour next meter 0 11/20/19 13 Active allopurinol (ZYLOPRIM) 100 mg tablet take 1 tablet by oral route every day 0 0 06/23/20 16 Active pravastatin (PRAVACHOL) 20 mg tablet take 2 tablet by oral route every day 0 0 06/23/20 16 Active Additional Information Patient taking differently:20 mgoral Daily, Reported on 08/07/2024 losartan (COZAAR) 50 mg tablet take 2 tablet by oral route every day 0 0 10/27/19 16 Active Additional Information Patient taking differently: 100 mg oral Daily, Reported on 08/07/2024 magnesium gluconate (MAGONATE) 500 mg (27 mg elemental) tabletIndications: hypomagnesemia Take 1 tablet (500 mg total) by mouth 2 (two) times a day Active nexbfnrvmnnk-Gl-ot on-minerals tablet Take 1 tablet by mouth daily Active cyanocobalamin (Vitamin B-12) 1,000 mcg/mL injection Inject 1 mL (1,000 mcg total) into the muscle as instructed every 30 (thirty) days Active MAGNESIUM SULFATE IN 0.9 %NACL IV Infuse 3 mg into a venous catheter every 30 (thirty) days Patient receives 3 mg total infusion over 3 hours once a month Active TRUE METRIX GLUCOSE TEST STRIP stripIndications:T ype 2 diabetes mellitus with hyperglycemia, with long-term current use of insulin (HCC) USE TO TEST BLOOD SUGARS 4 TIMES A DAY 400 each 1 09/12/19 20 Active verapamil SR (CALAN SR) 120 mg CR tablet Take 1 tablet (120 mg total) by mouth daily 09/10/19 20 Active fluticasone propionate (FLONASE) 50 mcg/actuation nasal spray 12/17/19 20 Active HYDROcodone-acetam inophen (NORCO) 7.5-325 mg per tablet 12/17/19 20 Active cetirizine (ZyrTEC) 10 mg tablet Take 1 tablet (10 mg total) by mouth daily Active DULoxetine DR (CYMBALTA) 20 mg capsule Take 1 capsule (20 mg total) by mouth daily 03/30/20 21 Active ferrous sulfate 325 mg (65 mg of elemental iron) tablet Take 1 tablet (325 mg total) by mouth 2 (two) times a day Active cholecalciferol (VITAMIN D-3) 4,000 unit capsule A ctive lancets (TRUEplus Lancets) 28 gauge miscIndications:Ty pe 2 diabetes mellitus with hyperglycemia, with long-term current use of insulin ([facility]) USE FOR TESTING FOUR TIMES A DAY DIRECTED 400 each 3 03/21/20 22 Active pen needle, diabetic (TRUEplus Pen Needle) 31 gauge x 3/16 needle Use to inject insulin up to 5 times daily 450 each 2 03/21/20 22 Active alcohol swabs (BD Alcohol Swabs) pads, medicatedIndicatio ns:Type 2 diabetes mellitus with hyperglycemia, with long-term current use of insulin ([facility]) USE DIRECTED 4 TIMES DAILY 400 each 2 07/08/20 22 Active isosorbide mononitrate ER (IMDUR) 30 mg 24 hr tablet Take 1 tablet (30 mg total) by mouth daily Active cholestyramine (QUESTRAN) 4 gram powder 08/06/20 23 Active dicyclomine (BENTYL) 20 mg tablet 07/25/20 23 Active doxycycline 100 mg tablet 06/06/20 23 Active nitrofurantoin (MACRODANTIN) 100 mg capsule 05/26/20 23 Active propranolol LA (INDERAL LA) 60 mg 24 hr capsule 07/02/20 23 Active pancrelipase (CREON) 3,000 units of lipase capsuleIndications :exocrine pancreatic insufficiency Take 1 capsule by mouth 3 (three) times a day Pt stated really unsure of dose Active cyclobenzaprine (FLEXERIL) 10 mg tablet 02/07/20 24 Active magnesium hydroxide 600 mg tablet,chewable Take 1 tablet by mouth 2 (two) times a day Active ondansetron ODT (ZOFRAN-ODT) 4 mg disintegrating tablet 01/17/20 24 Active Creon 36,000-114,000- 180,000 unit capsule 02/01/20 24 Active Ozempic 2 mg/dose (8 mg/3 mL) pen injector injection INJECT SUBCUTANEOUSLY 2 MG EVERY WEEK 9 mL 3 04/09/20 24 Active levothyroxine (SYNTHROID) 100 mcg tablet Take 1 tablet (100 mcg total) 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 E11.65 9 each 3 09/11/19 25 Active Active Problems Problem Noted Date Diagnosed Date Acquired hypothyroidism 03/17/2022 Assessment & Plan (08/07/2024 5:51 PM UI DEVELOPER): Chronic, stable. Continue levothyroxine Update TFTs Assessment & Plan (08/10/2023 3:53 PM UI DEVELOPER): Chronic, well-controlled Importance of taking levothyroxine on an empty stomach with discussed Continue levothyroxine 100 mcg daily Assessment & Plan (01/17/2023 1:59 PM CDT): Chronic, well controlled Continue Levothyroxine, current Assessment & Plan (03/17/2022 9:47 AM CDT): Chronic problem. Check TSH with labs. Morbid (severe) obesity due to excess calories 0 03/17/2022 Assessment & Plan (02/13/2024 4:29 PM CDT): Worsening working on diet and exercise Referred to Plastic surgery for skin removal Assessment & Plan (03/17/2022 9:49 AM CDT): Chronic problem, continue working on lifestyle. Body mass index (BMI) 45.0-49.9, adult 2 Bariatric surgery status 03/17/2022 Assessment & Plan (03/17/2022 10:16 AM CDT): Her bariatric surgeon has moved and his practice closed, requests to see another one as she has questions. Referral placed. CKD (chronic kidney disease) stage 3, GFR 30-59 ml/min 04/17/2018 Hyperlipidemia associated with type 2 diabetes verenice cormier 04/17/2018 Assessment & Plan (08/07/2024 5:51 PM UI DEVELOPER): Chronic, stable Update lipid profile Continue statin therapy Assessment & Plan (08/10/2023 3:53 PM UI DEVELOPER): Chronic, well-controlled Continue statin therapy with Pravachol Assessment & Plan (01/17/2023 1:59 PM CDT): Chronic, well controlled Low fat Low cholesterol diet Exercise Continue statin therapy with Pravachol Assessment & Plan (03/17/2022 9:47 AM CDT): Chronic problem. On statin therapy, no changes. Assessment & Plan (10/28/2021 1:21 PM UI DEVELOPER): Chronic problem. On statin therapy, no changes. Assessment & Plan (04/15/2021 2:50 PM CDT): At goal on current medications. Continue statin therapy. Assessment & Plan (11/26/2020 4:22 PM CDT): Goal of treatment , LDL cholesterol less than 100 ( less than 70 in patients with history of heart attacks and / or strokes ) NonHDL cholesterol ( total cholesterol minus HDL cholesterol ) goal less than 130 ( less than 100 in patients with history of heart attacks and / or strokes ) Low cholesterol, low fat diet was discussed and advised. Daily exercise On statin therapy with pravachol Lipids checked today, at goal Assessment & Plan (05/28/2020 4:25 PM CDT): Goal of treatment , LDL cholesterol less than 100 ( less than 70 in patients with history of heart attacks and / or strokes ) NonHDL cholesterol ( total cholesterol minus HDL cholesterol ) goal less than 130 ( less than 100 in patients with history of heart attacks and / or strokes ) Low cholesterol, low fat diet was discussed and advised. Daily exercise On statin therapy with Pravachol Assessment & Plan (09/27/2019 9:29 AM UI DEVELOPER): LDL at goal. Trigs elevated. Continue statin Assessment & Plan (06/06/2019 2:49 PM CDT): Lipid panel ordered Assessment & Plan (02/14/2019 2:59 PM CDT): Goal of treatment , LDL cholesterol less than 100 ( less than 70 in patients with history of heart attacks and / or strokes ) NonHDL cholesterol ( total cholesterol minus HDL cholesterol ) goal less than 130 ( less than 100 in patients with history of heart attacks and / or strokes ) Low cholesterol, low fat diet was discussed and advised. Daily exercise On statin therapy Assessment & Plan (11/01/2018 2:04 PM CDT): Goal of treatment , LDL cholesterol less than 100 ( less than 70 in patients with history of heart attacks and / or strokes ) NonHDL cholesterol ( total cholesterol minus HDL cholesterol ) goal less than 130 ( less than 100 in patients with history of heart attacks and / or strokes ) Low cholesterol, low fat diet was discussed and advised. Daily exercise On statin therapy Assessment & Plan (08/07/2018 1:59 PM UI DEVELOPER): At goal on current medications. Assessment & Plan (04/17/2018 2:06 PM CDT): Goal of treatment , LDL cholesterol less than 100 ( less than 70 in patients with history of heart attacks and / or strokes ) NonHDL cholesterol ( total cholesterol minus HDL cholesterol ) goal less than 130 ( less than 100 in patients with history of heart attacks and / or strokes ) Low cholesterol, low fat diet was discussed and advised. Daily exercise On statin therapy Morbid obesity 04/06/2017 Assessment & Plan (04/15/2021 3:19 PM CDT): Continue following plan for reduced portions . Assessment & Plan (05/28/2020 4:25 PM CDT): Diet and exercise Will retry Phentermine Assessment & Plan (12/26/2019 2:59 PM CDT): S/p gastric sleeve Will restart Phentermine SE dicussed Assessment & Plan (09/27/2019 9:29 AM UI DEVELOPER): Continues to do well with wt loss efforts. Continue focus on diet but not heavier eating in pm. Assessment & Plan (06/06/2019 2:49 PM CDT): Importance of following diet and exercising discussed. Assessment & Plan (11/01/2018 2:05 PM CDT): Diet and exercise were discussed. 1200 Calorie diet advised 45-60 min aerobic / resistance exercise most days of the week recommended. Bariatric surgery medically indicated ; pt to have it done next month Pt to call us to have her insulin adjusted. Assessment & Plan (08/07/2018 1:59 PM UI DEVELOPER): Continues to gain weight. Little attempt at diet and exercise. Reviewed importance of avoiding juice, soda, high fat, high carb foods. Assessment & Plan (10/05/2017 2:49 PM UI DEVELOPER): Diet and exercise were discussed. 1200 Calorie diet advised 45-60 min aerobic / resistance exercise most days of the week recommended. Bariatric surgery medically indicated Assessment & Plan (07/20/2017 4:17 PM UI DEVELOPER): Importance of following diet and exercising discussed. Assessment & Plan (04/06/2017 4:27 PM CDT): Extensive discussion regarding need to eliminate all sweets and no regular soda in diet. Timing, spacing and portions discussed. Hypertension associated with diabetes 09/19/2012 Overview (11/23/2016): Unspecified essential hypertension Assessment & Plan (02/13/2024 4:29 PM CDT): Chronic, well-controlled. Continue current regimen including losartan 100 mg daily Assessment & Plan (03/17/2022 9:46 AM CDT): Controlled on current medications, no changes. Assessment & Plan (10/28/2021 1:21 PM UI DEVELOPER): Controlled on current medications, no changes. Assessment & Plan (04/15/2021 2:51 PM CDT): Controlled on current medications. Continue plan. Assessment & Plan (11/26/2020 4:22 PM CDT): Goal blood pressure is less than 140/85 Low salt diet was discussed andd recommended The importance of daily aerobic exercise was also emphasized. Continue current meds, including ALYCE-I or ARB, e.g. Check microalbumin Assessment & Plan (09/27/2019 9:29 AM UI DEVELOPER): Controlled on current medications. Continue plan. Assessment & Plan (06/06/2019 2:49 PM CDT): Controlled on current medications. Continue plan. Assessment & Plan (11/01/2018 2:04 PM CDT): Goal blood pressure is less than 140/85 Low salt diet recommended Daily aerobic exercise Continue current meds, including ALYCE-I or ARB Assessment & Plan (08/07/2018 2:00 PM UI DEVELOPER): Controlled on current medications. Assessment & Plan (04/17/2018 2:07 PM CDT): Goal blood pressure is less than 140/85 Low salt diet recommended Daily aerobic exercise Continue current meds, including ALYCE-I or ARB Assessment & Plan (10/05/2017 2:50 PM UI DEVELOPER): Goal blood pressure is less than 140/85 Low salt diet recommended Daily aerobic exercise Continue current meds, including ALYCE-I or ARB Assessment & Plan (07/20/2017 4:18 PM UI DEVELOPER): Controlled on current medications. Assessment & Plan (04/06/2017 4:28 PM CDT): At goal on current medications. Hyperlipidemia 09/19/2012 Overview (11/24/2016): HYPERLIPIDEMIA NEC/NOS Assessment & Plan (06/06/2019 2:49 PM CDT): Lipid panel ordered Assessment & Plan (07/20/2017 4:18 PM UI DEVELOPER): Will check lipid panel Assessment & Plan (04/06/2017 4:28 PM CDT): Check labs and focus on low fat foods Furuncle of trunk 06/28/2012 Overview (11/23/2016): Carbuncle and furuncle of trunk Type 2 diabetes mellitus 06/28/2012 Overview (11/24/2016): DMII WO CMP UNCNTRLD Assessment & Plan (08/07/2024 5:50 PM UI DEVELOPER): Chronic, stable Diet and exercise were emphasized Continue Farxiga and Ozempic Assessment & Plan (02/13/2024 4:29 PM CDT): Chronic, well-controlled. Continue Ozempic 2 mg weekly Farxiga 10 mg Importance of diet and exercise was discussed Assessment & Plan (08/10/2023 3:52 PM UI DEVELOPER): Chronic, well-controlled, with some postprandial hyperglycemia Continue current regimen with Farxiga and Ozempic 2 mg weekly I advised patient to cut down on portion sizes especially carb intake in the evening Assessment & Plan (01/17/2023 1:58 PM CDT): Hba1c was Lab Results Component Value Date HGBA1C 6.8 01/17/2023 today, indicating adequate DM control Goal Hba1c and blood glucose explained Diet and exercise were advised Prevention and treatment of hyypoglcyemia were discussed with the patient Blood glucose monitoring : DEXCOM Adjustment to medications: Stop Lantus Novolog, 8 units before dinner Continue Ozempic Continue Farxita Assessment & Plan (07/19/2022 1:34 PM UI DEVELOPER): Hba1c was Lab Results Component Value Date HGBA1C 7.6 % 07/19/2022 today, indicating inadequate DM control Goal Hba1c and blood glucose explained Diet and exercise were advised Prevention and treatment of hyypoglcyemia were discussed with the patient Blood glucose monitoring : DEXCOM Adjustment to medications: Stop Bydureon Start Ozempic continue insulin and Farxiga Assessment & Plan (03/17/2022 10:15 AM CDT): Chronic problem, not at goal with high PPG. Adjust NL to 15 units aD + 2:50 >150. Work on food choices, less simple carbs. Update routine labs today. Assessment & Plan (10/28/2021 1:43 PM UI DEVELOPER): Chronic problem, not at goal. Increase NL at DN to 12 units. SS given, she can use on its own earlier in the day and add to DN dose if needed. If blood sugar is <150, take do not take any. If blood sugar is between 150-200, take 2 units. If blood sugar is between 200-250, take 4 units. If blood sugar is between 250-300, take 6 units. If blood sugar is between 300-350, take 8 units. If blood sugar is between >350, take 10 units. Update routine labs. Assessment & Plan (04/15/2021 3:20 PM CDT): A1c 6.9. Continue current medication plan. Provided with instructions to reduce Lantus if needed to keep overnight and FBG 90-110. Assessment & Plan (11/26/2020 4:23 PM CDT): Hba1c was Lab Results Component Value Date HGBA1C 8.0 11/26/2020 today, indicating Inadequate DM control Goal blood sugars in the 120-150 range , with Hb1c under 7.0 % was explained 1800 calorie, consistent carb diet recommended. No more than 30-45 grams of carbs per meal recommended, as well as avoiding high concentrated sweet drinks . 25-45 min daily exercise, combining both aerobic and resistance exercise recommended. The need to monitor blood glucose before meals and bedtime was discussed. Prevention and treatment of hyypoglcyemia discussed. Lower Lantus 25 units Novolog, 12 units with dinner only Continue Byteo and Farxiga. Assessment & Plan (05/28/2020 4:24 PM CDT): Hba1c was Lab Results Component Value Date HGBA1C 7.2 05/28/2020 today, indicating suboptimal DM control Goal blood sugars in the 120-150 range , with Hb1c under 7.0 % was explained 1800 calorie, consistent carb diet recommended. No more than 30-45 grams of carbs per meal recommended, as well as avoiding high concentrated sweet drinks . 25-45 min daily exercise, combining both aerobic and resistance exercise recommended. The need to monitor blood glucose before meals and bedtime was discussed. Prevention and treatment of hyypoglcyemia discussed. Humalog, ac for BG over 180 only Weight loss Assessment & Plan (12/26/2019 2:58 PM CDT): Hba1c as per DEXCOM, 8.2 today, indicating worsening ... DM control 1800 calorie, consistent carb diet recommended. No more than 30-45 grams of carbs per meal recommended, as well as avoiding high concentrated sweet drinks . 25-45 min daily exercise, combining both aerobic and resistance exercise recommended. The need to monitor blood glucose before meals and bedtime was discussed. Prevention and treatment of hyypoglcyemia discussed. Insulin dose: Increase lantus to 30 units at bedtime Novolog 16 units with lunch and dinner Novolog 8 units with breakfast Assessment & Plan (09/27/2019 9:31 AM UI DEVELOPER): A1c increased to 7.8. Pattern acceptable during the day but elevated in evening due to pattern of eating. Diet and importance of evaluating ac/pc BG trends reviewed. Continue Oscar Pop Bydureon. Advised consistency with how Novolog is being taken. Assessment & Plan (06/06/2019 3:16 PM CDT): A1c 7.5. Dexcom alert raised to 280 and alarms reset so she will hear them. Continue with diet efforts and exercise. Will not change medication at this time however BG goals reviewed. To upload through [facility] if any issues with BG. Assessment & Plan (02/14/2019 2:49 PM CDT): Your Hba1c today was: Lab Results Component Value Date HGBA1C 7.4 % 02/14/2019 meaning a 3 month average sugar of : 160 Your goal hba1c is under 7.0 to prevent usp diabetes complications ( eye , kidney and nerve damage ) . Your goal sugars are in the 90-130 range Exercise recommendations: It is recommended that you do daily aerobic ( walking, riding a bike, swimming ) and resistance exercises ( light weight lifting, resistance band stretching ) for at least 30 minutes , most days of the week. If you can not walk, chair exercises for 10-15 min a day would help tremendously. As little as 15-20 minutes exercise , in one or two sessions a day, is still very helpful to improve your diabetes control . Diet recommendations: Eat small portion meals, trying not to consume more than 1800 calories a day . Try to eat not more than than 2 servings of carbs ( starches ) wiith your meals. Avoid soft drinks, including regular sodas , fruit juices and sweetened tea. Drink water instead. Eat plenty of green and leafy vegetables, including salads. Medications: Take your medications regularly. Setting phone alarms can help . Keep your medication on the kitchen dinner table, by the bedside table or by the sink where they are visible to you. If you are taking insulin : the insulin that you are currently using does not need to be refrigerated. Keep it where you can see it . Monitor your sugar levels with finger sticks regularly and keep a log sheet or book. Bring your sugar meter and /or a log book or log sheet to every office visit. Stay on Lantus , 25 units at bedtime Take Novolog, 8 units before meals For sugars over 200, take 12 units Stay on Farxiga and Bydureon Assessment & Plan (11/01/2018 2:01 PM CDT): Hba1c was Lab Results Component Value Date HGBA1C 7.8 11/01/2018 today, indicating sub-optimal , but better DM control 1800 calorie, consistent carb diet recommended 25-45 min daily exercise, combining both aerobic and resistance exercise recommended. The need to monitor blood glucose before meals and bedtime was discussed. Dose of basal and prandial insulin adjusted as follows: Continue current regimen Work on eating less in the evening. Prevention and treatment of hyypoglcyemia discussed. Assessment & Plan (08/07/2018 2:02 PM UI DEVELOPER): A1c 8.1. Baseline BG reported at goal. Suspect pc excursions are reason for poor control but returns to baseline. Would benefit from CGM as this would provide daily education re: specific foods and BG patterns. Will try for this. No change to medication plan today. Assessment & Plan (04/17/2018 2:08 PM CDT): Your last Hba1c was 8.2 , indicating Sub-optimal DM control 1800 calorie, consistent carb diet recommended 30 min daily exercise, combining both aerobic and resistance exercise is strongly recommended and needed as part of diabetes management plan. The need to monitor blood glucose before meals and bedtime was discussed. Take prandial insulin before meals based on carb intake and blood glucose readings. Prevention and treatment of hyypoglcyemia discussed. Assessment & Plan (10/05/2017 2:51 PM UI DEVELOPER): Hba1c was . 9.6 . today, indicating poor DM control 1200 calorie, consistent carb diet recommended 30 min daily exercise, combining both aerobic and resistance exercise is strongly recommended and needed as part of diabetes management plan. The need to monitor blood glucose before meals and bedtime was discussed. Take prandial insulin before meals based on carb intake and blood glucose readings. Prevention and treatment of hyypoglcyemia discussed. Assessment & Plan (07/20/2017 4:17 PM UI DEVELOPER): A1c improved 8.7, ~ 2%. Mostly from not eating post surgery and trauma with resulting weight loss. No change to medication plan however discussed at length the importance of maintaining control over types of foods and portions to continue with improvement. Assessment & Plan (04/06/2017 4:30 PM CDT): A1c increased to 10.6. Too many excuses. No change to medication plan. Needs to take Humalog daily as prescribed as well as continue other DM meds. No soda. Send in BG weekly for evaluation and adjustment. Resolved Problems Problem Noted Date Diagnosed Date Resolved Date BMI 50.0-59.9, adult 04/17/2018 020 Encounters Date Type Department Care Team Description 10/18/2024 Telephone [facility] [address] [phone] Anthony Castillo MD 09/11/2024 Telephone [facility] [address] [phone] Anthony Castillo MD Fax [facility] new prescription request 08/13/2024 [facility] [address] [phone] Anthony Castillo MD Test Results 08/07/2024 3:15 PM UI DEVELOPER Lab [address] [phone] Type 2 diabetes mellitus with hyperglycemia, with long-term current use of insulin (HCC); Acquired hypothyroidism 08/07/2024 2:15 PM UI DEVELOPER Office Visit [facility] [address] [phone] Anthony Castillo MD Type 2 diabetes mellitus with hyperglycemia, with long-term current use of insulin (HCC) (Primary Dx); Morbid (severe) obesity due to excess calories (HCC); Acquired hypothyroidism; Hyperlipidemia associated with type 2 diabetes mellitus (HCC) from Last 3 Months Surgical History Surgery Date Site/Laterality Comments BARIATRIC SURGERY 08/21/2018 - 08/20/2019 Gastric sleeve at [facility] Medical History Medical History Date Comments Hyperlipidemia Hyperlipidemia Hx Other Medical atrophic uterus Hx Other Medical hidradenitis shell ppurative Hx Other Medical congenital uter ine atrophy Hypertension Hypertension Hx Other Medical Claustrophobic; Comments: [facility] 04/15/2014 - Anemia Anemia Hx Other Medical Back Pain Osteoporosis Osteoporosis Gout Gout Hx Other Medical Neuropathy (fee t) Hx Other Medical Stomach ulcers Hx Other Medical Broken Right le g 70-80s Family History Medical History Relation Name Comments Diabetes Father Diabetes mellit us; Stroke Father Stroke; Cause o f : Stroke Arthritis Other 1 Family history of Arthritis; Gout Other 2 Family history of Gout; Hypertension Other 3 Family history of Hypertension; Diabetes Other 4 Family history of Diabetes mellitus; Relation Name Status Comments Father (Age 78) Other 1 Other 2 Other 3 Other 4 Social History Tobacco Use Types Packs/Day Years Used Date Smoking Tobacco: Never Smokeless Tobacco: Never Tobacco Cessation:Counseling Given: Not Answered Alcohol Use Standard Drinks/Week Comments Yes 0 (1 standard drink = 0.6 oz pur e alcohol) AUDIT-C Answer Date Recorded Q1: How often do you have a drink containing alcohol? Never 08/07/2024 Q2: How many drinks containi ng alcohol do you have on a typical day when you are drinking? Patient does not drink Q3: How often do you have si x or more drinks on one occasion? Never 08/07/2024 PHQ-2 Answer Date Recorded PHQ-2 Total Score (If total score is 3 or more points, staff should administer the PHQ-9) 0 08/07/2024 Comments No Sex and Gender Information Value Date Recorded Sex Assigned at Not on file Legal Sex Female 10:22 AM UI DEVELOPER Gender Identity Not on file Sexual Orientation Straight 08/07/2024 2: 11 PM UI DEVELOPER Obstetrics History Last Filed Vital Signs Vital Sign Reading Time Taken Comments Blood Pressure 100/68 08/07/2024 2:37 PM UI DEVELOPER Pulse 66 08/07/2024 2:37 PM UI DEVELOPER Temperature - - Respiratory Rate 17 08/07/2024 2:37 PM UI DEVELOPER Oxygen Saturation - - Inhaled Oxygen Concentration - - Weight 109 kg (240 lb 6.4 oz) 08/07/2024 2:37 PM UI DEVELOPER Height 170.2 cm (5' 7 ) 08/07/2024 2:37 PM UI DEVELOPER Body Mass Index 37.65 08/07/2024 2:37 PM UI DEVELOPER Plan of Treatment Health Maintenance Due Date Last Done Comments Breast Cancer Screening-Mammogram 1965 Cervical Cancer Screening 1967 Colon Cancer Screening-Colonoscopy 1967 Hepatitis C Screening 1967 Hepatitis B Screening 10/25/1985 Regular Well Visit/Exam 18-64 10/25/1985 Pneumococcal vaccine <65 (2 of 2 - PCV) 04/02/2016 04/02/2015 Zoster Vaccine (1 of 2) 10/25/2017 Foot Exam 01/18/2024 01/17/2023, 10/19, 05/28/2020, Additional history exists Influenza Vaccine (#1) 2024 9, 05/17/2018, 04/20/2017, Additional history exists Lipid Panel 08/10/2024 08/10/2023, 02/19, 11/29/2020, Additional history exists Albumin Creatinine Ratio, Urine 08/28/2024 08/28/2023, 12/26/2022, 03/17/2022, Additional history exists Dilated Eye Exam 10/11/2024 10/11/2023, , 09/03/2020, Additional history exists Hemoglobin A1C 02/05/2025 08/07/2024, 01/20, 08/10/2023, Additional history exists Depression Screening 08/07/2025 08/07/2024, 02/13/2024, 01/17/2023, Additional history exists eGFR 08/07/2025 08/07/2024, 03/2024, 08/10/2023, Additional history exists DTaP/Tdap/Td Vaccine (6 - Td or Tdap) 04/23/2027 04/23/2017, 07/25/2006, 11/07/1969, Additional history exists Procedures Procedure Name Priority Date/Time Associated Diagnosis Comments EGFR Routine 08/07/2024 3:23 PM UI DEVELOPER Type 2 diabetes mellitus with hyperglycemia, with long-term current use of insulin (HCC) DIFFERENTIAL AUTO Routine 08/07/2024 3:2 3 PM UI DEVELOPER Type 2 diabetes mellitus with hyperglycemia, with long-term current use of insulin (HCC) COMPREHENSIVE METABOLIC PANEL Routine 08/07/2024 3:23 PM UI DEVELOPER Type 2 diabetes mellitus with hyperglycemia, with long-term current use of insulin (HCC) TSH Routine 08/07/2024 3:23 PM UI DEVELOPER Acquired hypothyroidism T4, FREE Routine 08/07/2024 3:23 PM UI DEVELOPER Acquired hypothyroidism CBC WITH AUTO DIFFERENTIAL Routine 08/07/2024 3:23 PM UI DEVELOPER Type 2 diabetes mellitus with hyperglycemia, with long-term current use of insulin (HCC) POCT GLUCOSE Routine 08/07/2024 2:38 PM UI DEVELOPER Type 2 diabetes mellitus with hyperglycemia, with long-term current use of insulin (HCC) POCT HEMOGLOBIN A1C Routine 08/07/2024 2 :38 PM UI DEVELOPER Type 2 diabetes mellitus with hyperglycemia, with long-term current use of insulin (HCC) HM DIABETES EYE EXAM Routine 10/11/2023 9:29 AM UI DEVELOPER ALBUMIN CREATININE RATIO, URINE Routine 08/28/2023 7:38 AM UI DEVELOPER LIPID PANEL Routine 08/10/2023 1:53 PM UI DEVELOPER Hyperlipidemia associated with type 2 diabetes mellitus (HCC) from Last 3 Months or Most Recently Relevant to Health Maintenance Results * (ABNORMAL) eGFR (08/07/2024 3:23 PM UI DEVELOPER) eGFR 35(L) >=60 mL/min/1. 73 m2 Comment: Interpretive Data Reference Interval Normal >/= 90 mL/min/1.73m2 Mildly decreased* 60 - 89 mL/min/1.73m2 Mildly to moderately decreased 45 - 59 mL/min/1.73m2 Moderately to severely decreased 30 - 44 mL/min/1.73m2 Severely decreased 15 - 29 mL/min/1.73m2 Kidney Failure < 15 mL/min/1.73m2 *Relative to young adult level Estimated glomerular filtration rate is determined by the 2020 CKD-EPI equation recommended by the National [employer] (A Unifying Approach to GFR Estimation: Recommendations of the NKF-ASK Task Force on Reassessing the Inclusion of Race in Diagnosing Kidney Disease, JASN 2020). The CKD-EPI equation should not be used for patients with unstable renal function and has not been validated in children and those over 70. Current interpretive data was last reviewed 2021. Blood 08/07/2024 3:23 PM UI DEVELOPER 08/07/2024 6:55 PM UI DEVELOPER us Anthony Castillo MD LAB BLOOD ORDERABLES Final Resul t [facility] [id number] Department [place] [address] * (ABNORMAL) Differential, auto (08/07/2024 3:23 PM UI DEVELOPER) Neutrophil abs 7.9(H) 1.5 - 6.5 K/cumm Imm gran abs 0.1 0.0 - 0.1 K/cumm [facility] Lymphocyte abs 3.1 0.8 - 3.3 K/cumm [facility] Monocyte abs 0.6 0.2 - 0.8 K/cumm [facility] Eosinophil abs 0.5 0.0 - 0.5 K/cumm [facility] Basophil abs 0.1 0.0 - 0.1 K/cumm [facility] Neutrophil pct 64.7 % [facility] Comment: Interpretive Data Percent cell count reference ranges are not reported, since discordance with absolute values may lead to misinterpretation of CBC data. Current Interpretive Data was last revised on 2017. Imm gran pct 0.4 % [facility] Comment: Interpretive Data Percent cell count reference ranges are not reported, since discordance with absolute values may lead to misinterpretation of CBC data. Current Interpretive Data was last revised on 2017. Lymphocyte pct 25.2 % [facility] Comment: Interpretive Data Percent cell count reference ranges are not reported, since discordance with absolute values may lead to misinterpretation of CBC data. Current Interpretive Data was last revised on 2017. Monocyte pct 4.9 % [facility] Comment: Interpretive Data Percent cell count reference ranges are not reported, since discordance with absolute values may lead to misinterpretation of CBC data. Current Interpretive Data was last revised on 2017. Eosinophil pct 4.1 % [facility] Comment: Interpretive Data Percent cell count reference ranges are not reported, since discordance with absolute values may lead to misinterpretation of CBC data. Current Interpretive Data was last revised on 2017. Basophil pct 0.7 % [facility] Comment: Interpretive Data Percent cell count reference ranges are not reported, since discordance with absolute values may lead to misinterpretation of CBC data. Current Interpretive Data was last revised on 2017. Blood 08/07/2024 3:23 PM UI DEVELOPER 08/07/2024 6:45 PM UI DEVELOPER us Anthony Castillo MD LAB BLOOD ORDERABLES Final Resul t [facility] [id number] Department [place] [address] * (ABNORMAL) CBC with auto differential (08/07/2024 3:23 PM UI DEVELOPER) WBC 12.2(H) 3.8 - 9.9 K/cumm Hgb 11.2(L) 11.9 - 15.5 g/dL [facility] Hct 35.7 35.6 - 45.5 % [facility] Plt 250 150 - 400 K/cumm [facility] MPV 10.8 9.1 - 12.3 fL [facility] RBC 3.84(L) 3.90 - 5.20 M/cumm [facility] MCV 93.0 81.3 - 96.4 fL [facility] MCH 29.2 27.1 - 33.3 pg [facility] MCHC 31.4(L) 32.3 - 35.7 g/dL [facility] RDW CV 12.9 11.1 - 14.9 % [facility] RDW SD 43.8 35.7 - 48.1 fL [facility] NRBC abs 0.00 0.00 - 0.01 K/cumm [facility] Blood 08/07/2024 3:23 PM UI DEVELOPER 08/07/2024 6:45 PM UI DEVELOPER Result Jerrod Castillo MD LAB BLOOD ORDERABLES Final Resul t Performing Organization Address City/[facility] Co de Phone Number [facility] [id number] [facility] [place] [address] * TSH (08/07/2024 3:23 PM UI DEVELOPER) Thyroid Stimulating Hormone 1.47 0.30 - 4.20 mcIUnit/mL Blood 08/07/2024 3:23 PM UI DEVELOPER 08/07/2024 6:45 PM UI DEVELOPER us Anthony Castillo MD LAB BLOOD ORDERABLES Final Resul t Performing Organization Address [facility] de Phone Number [facility] [id number] [place] [address] * (ABNORMAL) T4, free (08/07/2024 3:23 PM UI DEVELOPER) Free T4 1.75(H) 0.90 - 1.70 ng/dL Blood 08/07/2024 3:23 PM UI DEVELOPER 08/07/2024 6:45 PM UI DEVELOPER Result Jerrod Castillo MD LAB BLOOD ORDERABLES Final Resul t Performing Organization Address [facility] de Phone Number [facility] [phone] [place] [address] * (ABNORMAL) Comprehensive metabolic panel (08/07/2024 3:23 PM UI DEVELOPER) Sodium 142 135 - 145 mmol/L Potassium, pl 3.8 3.3 - 4.9 mmol/L [facility] Chloride 105 97 - 110 mmol/L [facility] CO2 25 22 - 32 mmol/L [facility] Anion gap 12 2 - 15 mmol/L [facility] BUN 27(H) 6 - 25 mg/dL [facility] Creatinine 1.68(H) 0.60 - 1.10 mg/dL [facility] Glucose 165 70 - 199 mg/dL [facility] Comment: Interpretive Data Fasting glucose >/= 126 mg/dl is diagnostic for diabetes. Fasting is defined as no caloric intake for at least 8 hours. Fasting glucose between 100 mg/dl to 125 mg/dl is diagnostic of prediabetes. In a patient with classic symptoms of hyperglycemia or hyperglycemic crisis, a random glucose >/= 200 mg/dl is diagnostic for diabetes. In the absence of unequivocal hyperglycemia, results should be confirmed by repeat testing. The classification and Diagnosis of Diabetes Diabetes Care 2021; 46: S19-S40. Current interpretive data was last revised 2022. Calcium 9.5 8.5 - 10.3 mg/dL [facility] Bilirubin, total 0.3 0.1 - 1.2 mg/dL [facility] Protein, pl 6.5 6.5 - 8.5 g/dL [facility] Albumin 4.0 3.5 - 5.0 g/dL [facility] Alk phos 81 40 - 130 Units/L [facility] ALT 12 7 - 45 Units/L [facility] AST 22 10 - 45 Units/L [facility] Blood 08/07/2024 3:23 PM UI DEVELOPER 08/07/2024 6:45 PM UI DEVELOPER us Anthony Castillo MD LAB BLOOD ORDERABLES Final Resul t [facility] [id number] Department [place] [address] * (ABNORMAL) POCT hemoglobin A1c (08/07/2024 2:38 PM UI DEVELOPER) Hemoglobin A1C, POC 7.1 4.0 - 5.6 % Comment:None Capillary blood 08/07/2024 2 :38 PM UI DEVELOPER us Anthony Castillo MD POINT OF CARE TEST ORDERABLES Fi nal Result * (ABNORMAL) POCT glucose (08/07/2024 2:38 PM UI DEVELOPER) Glucose Blood, POC 187 mg/dL Comment:None Blood 08/07/2024 2:38 PM UI DEVELOPER us Anthony Castillo MD POINT OF CARE TEST ORDERABLES Fi nal Result * (ABNORMAL) DIABETES EYE EXAM (10/11/2023 9:29 AM UI DEVELOPER) Historical Provider HEALTH MAINTENANCE Final Result * (ABNORMAL) Albumin Creatinine Ratio, Urine (08/28/2023 7:38 AM UI DEVELOPER) SCRIBED Creatinine, Urine 75.44 40 - 278 EXTERNAL LAB SCRIBED Microalbumin 13.4(A) 0.0 - 11.9 EXTERNAL LAB SCRIBED Microalb/Creat Ratio 0.18 0 - 0.20 EXTERNAL LAB Urine 08/28/2023 7:38 AM UI DEVELOPER Historical Provider LAB URINE ORDERABLES Edit ed Result - Final EXTERNAL LAB * (ABNORMAL) Lipid panel (08/10/2023 1:53 PM UI DEVELOPER) Cholesterol 164 30 - 199 mg/dL [facility] Comment: Interpretive Data Ages < or = 19 years Acceptable: <170 mg/dL Borderline high: 170-199 mg/dL High: >or= 200 mg/dL Ages > or = 20 years Desirable: <200 mg/dL Borderline high: 200-239 mg/dL High: >or= 240 mg/dL Literature References: 1. Expert Panel on Integrated Guidelines for Cardiovascular Health and Risk Reduction in Children and Adolescents. Pediatrics 2011;128:S213 2. NCEP Expert Panel. Circulation 2004;110:227 Current Interpretive Data was last revised on 2018. Triglycerides 158(H) <=149 mg/dL [facility] Comment: Interpretive Data Ages < or = 9 years Acceptable: <75 mg/dL Borderline high: 75-99 mg/dL High: >or= 100 mg/dL Ages 10 to 20 years Acceptable: <90 mg/dL Borderline high: 90-129 mg/dL High: >or= 130 mg/dL Ages > or = 20 years Desirable: <150 mg/dL Borderline high: 150-199 mg/dL High: 200-499 mg/dL Very high: >or= 499 mg/dL Literature References: 1. Expert Panel on Integrated Guidelines for Cardiovascular Health and Risk Reduction in Children and Adolescents. Pediatrics 2011;128:S213 2. NCEP Expert Panel. Circulation 2004;110:227 Current Interpretive Data was last revised on 2018. HDL 53 >=40 mg/dL [facility] Comment: Interpretive Data Ages < or = 19 years Acceptable: >45 mg/dL Borderline low: 40-45 mg/dL Low: <40 mg/dL Ages > or = 20 years Desirable: >or= 60 mg/dL Low: <40 mg/dL Literature References: 1. Expert Panel on Integrated Guidelines for Cardiovascular Health and Risk Reduction in Children and Adolescents. Pediatrics 2011;128:S213 2. NCEP Expert Panel. Circulation 2004;110:227 Current Interpretive Data was last revised on 2018. LDL, calculated 79 <=129 mg/dL [facility] Comment: Interpretive Data Ages < or = 19 years Acceptable: <110 mg/dL Borderline high: 110-129 mg/dL High: >or= 130 mg/dL Ages > or = 20 years Optimal: <100 mg/dL Near optimal: 100-129 mg/dL Borderline high: 130-159 mg/dL High: >160 mg/dL Literature References: 1. Expert Panel on Integrated Guidelines for Cardiovascular Health and Risk Reduction in Children and Adolescents. Pediatrics 2011;128:S213 2. NCEP Expert Panel. Circulation 2004;110:227 Current Interpretive Data was last revised on 2018. Non-HDL Cholesterol 111 mg/dL [facility] Comment: Interpretive Data Ages < or = 19 years Acceptable: <120 mg/dL Borderline high: 120-144 mg/dL High: >145 mg/dL Ages > or = 20 years When triglycerides are >200 mg/dL, Non-HDL cholesterol is a secondary target of therapy with treatment goals that are 30 mg/dL greater than the LDL cholesterol target. Literature References: 1. Expert Panel on Integrated Guidelines for Cardiovascular Health and Risk Reduction in Children and Adolescents. Pediatrics 2011;128:S213 2. NCEP Expert Panel. Circulation 2004;110:227 Current Interpretive Data was last revised on 2018. Chol/HDL ratio 3 [facility] Blood 08/10/2023 1:53 PM UI DEVELOPER 08/10/2023 7:31 PM UI DEVELOPER us Anthony Castillo MD LAB BLOOD ORDERABLES Final Resul t [facility] [id number] [place] [address] from Last 3 Months or Most Recently Relevant to Health Maintenance Insurance [employer] [facility] MEDICARE Address: [address] [address] [place] [address] [employer] Care Teams Community Outreach Manager Relationship Specialty Start Date End Date Willian Mendoza MD PCP - General 02/18/16
--- OUTSIDE RECORDS SUMMARY | 2024-10-29 13:34 | XMS_ITS | Data Portability ---
Author Organization [facility] Address [address] [place] [address] Care Team Providers Care Human Performance Consultant Name Role Phone ELKE JACOBO Primary Care Provider [phone] Assessment Encounter Date Assessment Date Assessment LastModified by Organization Details LastModified Time 03/23/2022 03/23/2022 Annual gynecological exam performed. Patient will come back in a year unless there are new symptoms. Not available 03/23/2022 14:56:58 Plan of Treatment Reminders Order Date Submit Date Provider Last Modified By Organization Details Last Modified Time Details Appointments None record ed. Lab None record ed. Referral None record ed. Procedures None record ed. Surgeries None record ed. Imaging None record ed. Medication Orders None record ed. Patient TargetsNo targets recorded. Patient InstructionsNo instructions recorded. Reason for Referral None Reported. Results Created Date Observation Date Name Description Value Unit Range Abnormal Flag Note LastModifiedBy Organization Detail LastModifiedTime 03/31/20 22 03/31/2022 US, lower extre mity, nonva scula r No observ ation record ed. [facility]) [address] [place], [address], 04/10/2022 00:58:08 Result Notes None recorded. Problems Name Problem SNOMED Code Status Onset Date Resolution Date Notes Provider Name and Address Organization Details Recorded Time SNOMED CT Concept Completed 201503/22/2022 Encntr for general adult medical exam w/o abnormal findings; Recorded Elsewhere : No Locati on: [facility] So urce: EHR Chron ic: N Practic e ID: [id number] Bill able Time: 03:30:00 PM Cecilia Rangel [facility] 2 16:06:09 Menopaus e present [id number] Completed 201503/22/2022 Menopausa l and female climacter ic states;Re corded Elsewhere : No Locati on: [facility] So urce: EHR Chron ic: N Practic e ID: [id number] Bill able Time: 01:00:00 PM Cecilia Rangel [facility] 2 16:06:09 Screenin g for malignan t neoplasm of rectum Completed 201503/22/2022 Encounter for screening for malignant neoplasm of rectum;Re corded Elsewhere : No Locati on: [facility] So urce: EHR Chron ic: N Practic e ID: [id number] Bill able Time: 03:30:00 PM Cecilia [facility]entin [facility] 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 2 16:06:09 Screenin g for malignan t neoplasm of cervix Completed 201503/22/2022 Encounter for screening for malignant neoplasm of cervix;Re corded Elsewhere : No Locati on: [facility] So urce: EHR Chron ic: N Practic e ID: [id number] Bill able Time: 03:30:00 PM Cecilia [facility]entin [facility] 2 16:06:09 Congenit al malforma tion [id number] Completed 201503/22/2022 Congenita l anomaly;R ecorded Elsewhere : No Locati on: [facility] So urce: EHR Chron ic: N Practic e ID: [id number] Bill able Time: 03:30:00 PM Cecilia Rangel null, [facility] 16:06:09 Problem Notes None recorded. Procedures Surgical History Date Name Laterality Status Provider Name and Address Organization Details Recorded Time 08/21/19 19 laparoscopic sleeve gastrectomy completed [facility] 03/23/2022 15:05:08 08/21/19 17 operation on mandible completed [facility] 03/23/2022 15:04:14 insertion of ureteral stent with ureterotomy completed [facility] 03/23/2022 15:03:53 Unlisted px femur/knee completed [facility] 03/23/2022 15:04:37 perinasal sinusotomy completed [facility] 03/23/2022 15:04:43 Carpal tunnel surgery completed [facility] 03/23/2022 15:04:53 Imaging Results Imaging Date Name Status LastModified by Organiz ation Details LastModified Time 03/31/2022 US, lower extremity, nonvascular completed [address], [address], 04/10/2022 00:58:08 Procedure Notes None recorded. Medical Equipment None Reported. Allergies No known drug allergies Medications Name Sig Start Date Stop Date Status Note LastModified by Organization Details LastModified Time verapamil ER (SR) 120 mg tablet,ex tended release active Not Available Not Available Not Available losartan 50 mg tablet active Not Available Not Available Not Available Prometriu m 200 mg capsule take 1 capsule by oral route every day in the evening 04/16 completed Prescrib ed Elsewher e: No Locat ion: Vik martin [facility] Isidro odify By: hiral carbone DateTime : 04/05/20 16 12:01:40 PM Not Available Not Available Not Available Neurontin 300 mg capsule take 1 capsule by oral route 3 times every day 04/28 completed Prescrib ed Elsewher e: No Locat ion: Vik martin [facility] odify By: wendy carbone DateTime : 03/08/20 16 09:00:54 AM Not Available Not Available Not Available verapamil 40 mg tablet take 1 tablet by oral route 3 times every day 03/23 completed Prescrib ed Elsewher e: Yes Loca tion: Vik martin [facility] odify By: [email or web address] trick En counter DateTime : 01/27/20 16 01:00:00 PM Not Available Not Available Not Available fluconazo le 150 mg tablet 03/23 completed Not Available Not Available Not Available propranol ol ER 60 mg capsule,2 4 hr,extend ed release active Not Available Not Available Not Available Lantus U-100 Insulin 100 unit/mL subcutane ous solution inject by subcutan eous route as per insulin protocol 2015 active Prescrib ed Elsewher e: Yes Loca tion: Vik martin [facility] odify By: [email or web address] trick En counter DateTime : 01/27/20 16 01:00:00 PM Not Available Not Available Not Available propranol ol 60 mg tablet take 1 tablet by oral route 2 times every day 03/23 completed Prescrib ed Elsewher e: Yes [facility] By: [email or web address] trick En counter DateTime : 01/27/20 16 01:00:00 PM Not Available Not Available Not Available allopurin ol 100 mg tablet take 1 tablet by oral route 3 times every day active Not Available Not Available No t Available spironola ctone 25 mg tablet take 1 tablet by oral route every day 03/23 completed Prescrib ed Elsewher e: Yes [facility] By: [email or web address] trick En counter DateTime : 01/27/20 16 01:00:00 PM Not Available Not Available Not Available glimepiri de 1 mg tablet take 1 tablet by oral route every day 03/23 completed Prescrib ed Elsewher e: Yes Loca tion: Vik martin [facility] odify By: wendy guevarauntean DateTime : 04/28/20 16 03:30:00 PM Not Available Not Available Not Available levothyro xine 100 mcg tablet active Not Available Not Available Not Available ropinirol e 0.25 mg tablet take 1 tablet by oral route every day q 4-6hrs prn 03/23 completed Prescrib ed Elsewher e: Yes Loca tion: Vik martin [facility] odify By: wendy guevaraunter DateTime : 04/28/20 16 03:30:00 PM Not Available Not Available Not Available Humalog U-100 Insulin 100 unit/mL subcutane ous solution inject by subcutan eous route per prescrib er's instruct ions. Insulin dosing requires individu alizazacheryo n. 03/23 completed Prescrib ed Elsewher e: Yes Loca tion: Vik martin [facility] odify By: wendy guevarauntean DateTime : 06/01/20 16 03:30:00 PM Not Available Not Available Not Available hydrocodo ne 7.5 mg-acetam inophen 325 mg tablet take 1 tablet by oral route every 6 hours as needed for pain active Not Available Not Available No t Available Neurontin 100 mg capsule take 1 capsule by oral route 3 times every day 04/28 completed Prescrib ed Elsewher e: No Locat ion: Vik martin [facility] odify By: wendy guevarauntean DateTime : 01/27/20 16 01:00:00 PM Not Available Not Available Not Available ranitidin e 300 mg capsule take 1 capsule by oral route every day at bedtime 03/23 completed Prescrib ed Elsewher e: Yes Loca tion: Vik martin [facility] odify By: [email or web address] trick En counter DateTime : 01/27/20 16 01:00:00 PM Not Available Not Available Not Available pravastat in 20 mg tablet take 2 tablet by oral route every day active Not Available Not Available No t Available Estrace 0.5 mg tablet take 1 tablet by oral route every day 06/01 completed Prescrib ed Elsewher e: No Locat ion: Vik martin [facility] odify By: [email or web address] Martin ncounter DateTime : 03/31/20 16 04:45:00 PM Not Available Not Available Not Available cefdinir 300 mg capsule 03/23 completed Not Available Not Available Not Available losartan 100 mg tablet take 1 tablet by oral route every day 03/23 completed Prescrib ed Elsewher e: Yes Loca tion: Vik martin [facility] odify By: [email or web address] trick En counter DateTime : 01/27/20 16 01:00:00 PM Not Available Not Available Not Available fluticaso ne propionat e 50 mcg/actua tion nasal spray,karen pension active Not Available Not Available Not Available nortripty line 50 mg capsule take 1 capsule by oral route 2 times every day 2015 active Prescrib ed Elsewher e: Yes Loca tion: Vik martin [facility] odify By: [email or web address] trick En counter DateTime : 01/27/20 16 01:00:00 PM Not Available Not Available Not Available Estrace 1 mg tablet take 1 tablet by oral route every day 2015 active Prescrib ed Elsewher e: No Locat ion: Vik martin [facility] odify By: tgingric h Becki ter DateTime : 04/28/20 16 03:30:00 PM Not Available Not Available Not Available progester one micronize d 100 mg capsule take 1 capsule by oral route every day for 10 days in the evening 05/07 completed Prescrib ed Elsewher e: Yes Loca tion: Vik martin [facility] odify By: [email or web address] Martin ncounter DateTime : 04/28/20 16 03:30:00 PM Not Available Not Available Not Available amoxicill in 875 mg-potass ium clavulana te 125 mg tablet 03/23 completed Not Available Not Available Not Available iron 18 mg tablet 2015 active Prescrib ed Elsewher e: Yes Loca tion: Vik martin [facility] odify By: [email or web address] trick En counter DateTime : 01/27/20 16 01:00:00 PM Not Available Not Available Not Available magnesium 200 mg tablet 2015 active Prescrib ed Elsewher e: Yes Loca tion: Vik martin [facility] odify By: [email or web address] trick En counter DateTime : 01/27/20 16 01:00:00 PM Not Available Not Available Not Available Vitamin D3 25 mcg (1,000 unit) tablet take 1 by Oral route once for 2 months then draw labs 2015 active Prescrib ed Elsewher e: Yes Loca tion: Robe mario [facility] odify By: [email or web address] trick En counter DateTime : 01/27/20 16 01:00:00 PM Not Available Not Available Not Available nitrofura ntoin monohydra te/macroc rystals 100 mg capsule active Not Available Not Available Not Available duloxetin e 20 mg capsule,d elayed release active Not Available Not Available Not Available Cinnamon 500 mg capsule 2015 active Prescrib ed Elsewher e: Yes Loca tion: Vik martin [facility] odify By: [email or web address] trick En counter DateTime : 01/27/20 16 01:00:00 PM Not Available Not Available Not Available Lantus Solostar U-100 Insulin 100 unit/mL (3 mL) subcutane ous pen active Not Available Not Available Not Available Tirosint 75 mcg capsule take 1 capsule by oral route every day 04/28 completed Prescrib ed Elsewher e: Yes Loca tion: [facility] odify By: wendy carbone DateTime : 01/27/20 16 01:00:00 PM Not Available Not Available Not Available Bydureon 2 mg subcutane ous extended release suspensio n inject by subcutan eous route every 7 days once 03/23 completed Prescrib ed Elsewher e: Yes Loca tion: [facility] odify By: [email or web address] trick En counter DateTime : 01/27/20 16 01:00:00 PM Not Available Not Available Not Available TRUEplus Lancets 28 gauge active Not Available Not Available Not Available Farxiga 10 mg tablet take 1 tablet by oral route every day in the morning active Not Available Not Available No t Available Bydureon BCise 2 mg/0.85 mL subcutane ous auto-inje ctor active Not Available Not Available Not Available Vitals Date Recorded Body height Body mass index (BMI) Body weight Systolic blood pressure Diastolic blood pressure Provider Name and Address Organization Details Last Updated DateTime 03/23/2022 168.91 cm 49.1 kg/m2 156730.0 4 g 136 mm[Hg] 80 mm[Hg] Cecilia Rangel [facility] 14:58:40 Social History Question Answer Notes LastModified by Organizat ion Details LastModified Time Tobacco Smoking Status Never Smoker Cecilia [facility] 03/23/2022 15:03:27 What Is Your Level Of Alcohol Consumption? Occasional Information not available 03/23/2022 Are You Blind Or Do You Have Difficulty Seeing? No Information not available 03/23/2022 What Is Your Level Of Caffeine Consumption? None Information not available 03/23/2022 Are You Deaf Or Do You Have Serious Difficulty Hearing? No Information not available 03/23/2022 What Type Of Diet Are You Following? REGULAR Information not available 03/23/2022 Do You Use Your Seat Belt Or Car Seat Routinely? Yes Information not available 03/23/2022 Do You Have Smoke And Carbon Monoxide Detectors In Your Home? Yes Information not available 03/23/2022 Do You Feel Stressed (tense, Restless, Nervous, Or Anxious, Or Unable To Sleep At Night)? [id number] Information not available 03/23/2022 Do You Use Any Illicit Or Recreational Drugs? No Information not available 03/23/2022 Do You Use Sunscreen Routinely? Yes Information not available 03/23/2022 Sex: Unknown Functional Status Question Answer Note LastModified by Organizat ion Details LastModified Time Do you have difficulty walking or climbing stairs? No Information not available 03/23/2022 Are you able to walk? YESWOREST Information not available 03/23/2022 Are you able to care for yourself? Yes Information not available 03/23/2022 Do you have difficulty dressing or bathing? No Information not available 03/23/2022 What is your exercise level? Occasional Information not available 03/23/2022 Mental Status None recorded. Family History Relationship Description Onset Age of this Age Resolved Age Notes LastModified by Organization Details LastModified Time Father Diabetes mellitus Not available 2021 15:02:22 Father Hypercholest erolemia Not available 2021 15:02:27 Father Heart disease Not available 2021 15:02:32 Father Hypertensive disorder Not available 2021 15:02:37 Mother Hypercholest erolemia Not available 2021 15:02:42 Mother Hypertensive disorder Not available 2021 15:02:49 Mother Heart disease Not available 2021 15:02:54 Paternal Aunt Diabetes mellitus Not available 2021 15:03:00 Notes:Father: Diabetes melli tus, Hyperlipidemia, Heart disease, Hypertension Mother: Hyperlipidemia, Hypertension, Heart disease Paternal aunt: Diabetes mellitus Medical History Condition Response Diabetes Y Thyroid Problems Y Hypertension Y High Cholesterol Y Gynecological History Statement/Question Response Sexually Active? Y STIs/STDs N Menses Monthly N HPV Vaccine N Date of Last Pap Smear Sexual Problems? N Current Control Method None LMP Unknown Obstetrics History GPAL:G 0 P 0 0 0 0 Past Encounters Encounter ID Performer Location Encounter Start Date Encounter Closed Date Diagnosis/Indication Diagnosis SNOMED-CT Code Diagnosis ICD10 Code Diagnosis Note [id number] [facility] [address] [address] 03/23/2022 14:11:49 03/24/2022 16:35:54 Gynecologic examination 75042514 Z01.419 Take Calcium with Vitamin D 12-1500mg daily. Do monthly self breast exams. It is advised to get annual flu shot in the fall and she could obtain at [facility] or [facility]. If you haven't received the Tdap vaccine in the last 10 years you should obtain one as well. Have mammogram yearly, bone density every 2-3 years and colonoscop y every 5-10 years depending on findings and history. Engage in daily exercise of low impact aerobic exercise 45-60 minutes 4-5 times weekly. Avoid tobacco and illicit drugs as well as using moderation with alcohol intake less than 1-2 8 oz beverages daily. This lifestyle behavior pattern will lead to less health conditions and longer life span. If BMI greater than 25 weight watchers or dietary consult advised. Questions have been answered. Patient appears to understand instructio ns, but if you have any further questions call or respond to this email Pap/hpv deferred STD Screen NEVER SA Genetic Screen discussed Colon Screen UTD PPC Dexa Screen na Routine Labs UTD PCPMammo UTD PCP Inguinal pain [id number] R10.2 Left sided groin pain.Exam difficult due to body habitus but felt bulge that is tender left side that was not present on right side. 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 Underdevel oped uterus/rep roductive organs per pt.Lindsey canal is only a finger tip in length. Notable bulge in left groin area that is not present in right side. Question if hernia is present and this is causing her pain. Health Concerns Section Related Observation LastModified by Organization Detai ls LastModified Time None Recorded Concern Status LastModified by Organization Details LastModified Time None Recorded Advance Directives Directive None Recorded Payers Encounter Date Sequence Insurance Name Policy Number Policy Arias Covered Member ID Arias Member ID Guarantor Name 03/23/2022 1 [facility] Keri Stone [id number] Keri Stone 03/23/2022 2 MEDICARE-[place] (MEDICARE) Keri Stone [id number] Keri Stone Notes Date Note Type Note Provider Name and Address Organization Details Recorded Time 03/23/2022 text/html Annual Pricing Manager Post-MenopausalRe ported bypatient.Menopau olvin Symptoms:no menopausal symptoms; normal vaginal lubrication Vaginal Bleeding:history of menopause having occurred; no history of post menopausal bleeding Urinary Symptoms:no hematuria; no incontinence; no nocturia; no urinary frequency Vulva:no genital lesion; no vulvar atrophy Vagina:normal vaginal discharge; no vaginal atrophy Breast:no breast lump; no nipple discharge; no breast pain Sexual Complaints:no sexual complaints Psychological Symptoms:no depression; no anxiety Preventive Measures:encourag e regular mammograms starting age 40; encourage self breast examination; encourage regular exercise; encourage no tobacco use; mammogram performed within the past year; history of recent colonoscopy Having some pain in left groin/pelvic area.Had recent US but uncertain if any ovarian cysts etc were seen.Groin pain comes/goes.Worse with activity. Kim Tovar, ESTELLA- [address], [place], [address], [place] - [facility] 03/24/2022 16:16:15 OBGyn Episode No OBEpisode recorded.
--- OUTSIDE RECORDS SUMMARY | 2024-10-29 13:34 | XMS_ITS | Encounter Summary ---
Author Organization [facility] Address [facility]ly [facility], [facility] [place] [address] Care Team Providers Care Division Field Inspector Name Role Phone Alexis Thurman MD Unavailable Willian Lora MD Primary Care Provider [phone] Cee Liu APRN BUILDING EQUIPMENT INSPECTOR-C Unavailable Virgilio Meehan DO Primary Care Provider [phone] Mame Osborn MD Unavailable [phone] Encounter Details Date Type Department Care Team (Late st Contact Info) Description 04/07/2021 Abstract [facility] [address] [place] [address] Ella Witt MD [address] [place] [address] Social History Tobacco Use Types Packs/Day Years Used Date Smoking Tobacco: Never Smokeless Tobacco: Never Comments Unknown Sex and Gender Information Value Date Recorded Sex Assigned at Not on file Legal Sex Female 1:26 AM CDT Gender Identity Not on file Sexual Orientation Not on file COVID-19 Exposure Response Date Recorded In the last month, have you been in contact with someone who was confirmed or suspected to have Coronavirus / COVID-19? No / Unsure 04/05/2021 10:57 AM CDT documented as of this encounter Plan of Treatment Upcoming Encounters Date Type Department Care Team (Late st Contact Info) Description 11/04/2024 10:30 AM CDT Office Visit [facility] [address] [place] [address] Gonzalez Wilson MD [address] [place] [address] Ella Witt MD [address] [place] [address] documented as of this encounter Visit Diagnoses Not on filedocumented in this encounter Care Teams Division Field Inspector Relationship Specialty Start Date End Date Willian Mendoza MD [address] [place] [address] PCP - General INTERNAL MEDICINE 09/14/18 09/07/22 Virgilio Meehan DO [address] [place] [address] PCP - General FAMILY PRACTICE 09/08/22 Alexis Thurman MD Art[place] Monotype Operator CARDIOVASCULAR DISEASE 09/14/18 04/01/24 Cee Liu, NETWORK INTELLIGENCE ANALYST, BUILDING EQUIPMENT INSPECTOR-C [address] [facility] [address] [place] [address] NURSE PRACTITIONER 05/27/22 Mame Osborn MD [address] [place] [address] INTERVENTIONAL CARDIOLOGY 05/10/24 documented as of this encounter
--- OUTSIDE RECORDS SUMMARY | 2024-10-29 13:34 | XMS_ITS | Encounter Summary ---
Author Organization [facility] Address [facility] [place] [address] Care Team Providers Care Heel Dipper Name Role Phone Alexis Thurman MD Unavailable Unavailabl e Willian Mendoza MD Primary Care Provider [phone] Cee Liu APRN SAP SECURITY ARCHITECT-C Unavailable [phone] Virgilio Meehan DO Primary Care Provider [phone] Mame Osborn MD Unavailable [phone] Encounter Details Date Type Department Care Team (Late st Contact Info) Description 10/12/2018 [facility] [address] [place] [address] Abstract, Doc [facility] Social History Tobacco Use Types Packs/Day Years Used Date Smoking Tobacco: Never Comments Unknown Sex and Gender Information Value Date Recorded Sex Assigned at Not on file Legal Sex Female 1:26 AM CDT Gender Identity Not on file Sexual Orientation Not on file documented as of this encounter Plan of Treatment Upcoming Encounters Date Type Department Care Team (Late st Contact Info) Description 11/04/2024 10:30 AM CDT Office Visit [facility] [address] [place] [id number] Gonzalez Wilson MD [address] [place] [address] Ella Witt MD [address] [place] [address] documented as of this encounter Visit Diagnoses Not on filedocumented in this encounter Care Teams Heel Dipper Relationship Specialty Start Date End Date Willian Mendoza MD [address] [place] [address] PCP - General INTERNAL MEDICINE 09/14/18 09/07/22 Virgilio Meehan DO [address] [place] [address] PCP - General FAMILY PRACTICE 09/08/22 Alexis Thurman MD [place] Charge Auditor CARDIOVASCULAR DISEASE 09/14/18 04/01/24 Cee Liu, GAME PRESERVE MANAGER, SAP SECURITY ARCHITECT-C [address] [facility] [address] [place] [id number] NURSE PRACTITIONER 05/27/22 Mame Osborn MD [address] [place] [address] INTERVENTIONAL CARDIOLOGY 05/10/24 documented as of this encounter
--- OUTSIDE RECORDS SUMMARY | 2024-10-29 13:34 | XMS_ITS ---
Author Organization [facility] Address [address] [place], [place] [address] Care Team Providers Care Price Analyst Name Role Phone MIRIAN MOSHER Unavailable [phone] Virgilio Meehan Unavailable Unavailable ADRIEN CONTRERAS Unavailable [phone] REASON FOR VISIT *General care Medications Medication SIG (Take, Route, Frequency, Duration) Notes Start Date End Date Status verapamil hydrochloride 40 MG Oral Tablet ORAL verapamil hydrochloride 40 M G Oral TabletOriginal Medicationverapamil hydrochloride 40 MG Oral Tablet *Reorder from [employer] for eRx and Interaction Alerts* 04/07/20 14 Active propranolol hydrochloride 40 MG Oral Tablet ORAL propranolol hydrochloride 40 MG Oral TabletOriginal Medicationpropranolol hydrochloride 40 MG Oral Tablet *Reorder from [employer] for eRx and Interaction Alerts* 04/07/20 14 Active nortriptyline 50 MG Oral Capsule ORAL nortriptyline 50 MG Oral CapsuleOriginal Medicationnortriptyline 50 MG Oral Capsule *Reorder from [employer] for eRx and Interaction Alerts* 04/07/20 14 Active levothyroxine sodium 0.1 MG Oral Capsule ORAL levothyroxine sodium 0.1 MG Oral CapsuleOriginal Medicationlevothyroxine sodium 0.1 MG Oral Capsule *Reorder from [employer] for eRx and Interaction Alerts* 04/07/20 14 Active esomeprazole 20 MG Injection INTRAVENOUS esomeprazole 20 MG InjectionOriginal Medicationesomeprazole 20 MG Injection *Reorder from [employer] for eRx and Interaction Alerts* 04/07/20 14 Active ciclopirox 80 MG/ML Topical Solution CUTANEOUS ciclopirox 80 MG/ML Topical SolutionOriginal Medicationciclopirox 80 MG/ML Topical Solution *Reorder from [employer] for eRx and Interaction Alerts* 04/20/20 12 Active cholecalciferol 0.025 MG Oral Capsule ORAL cholecalciferol 0.025 MG Ora l CapsuleOriginal Medicationcholecalciferol 0.025 MG Oral Capsule *Reorder from [employer] for eRx and Interaction Alerts* 04/07/20 14 Active 3 ML insulin glargine 100 UNT/ML Pen Injector [Lantus] 3 ML insulin glargine 100 UNT/ML Pen Injector [Lantus]Original Medication3 ML insulin glargine 100 UNT/ML Pen Injector [Lantus] *Reorder from [employer] for eRx and Interaction Alerts* 04/07/20 14 Active Losartan Potassium 100 MG Oral Tablet ORAL losartan potassium 100 MG Oral TabletOriginal Medicationlosartan potassium 100 MG Oral Tablet *Reorder from [employer] for eRx and Interaction Alerts* 04/07/20 14 Active cinnamon bark 500 MG Oral Capsule ORAL cinnamon bark 500 MG Oral CapsuleOriginal Medicationcinnamon bark 500 MG Oral Capsule *Reorder from [employer] for eRx and Interaction Alerts* 04/07/20 14 Active Pravastatin Sodium 10 MG Oral Tablet ORAL pravastatin sodium 10 MG Ora l TabletOriginal Medicationpravastatin sodium 10 MG Oral Tablet *Reorder from [employer] for eRx and Interaction Alerts* 04/07/20 14 Active Nabumetone 500 MG Oral Tablet ORAL nabumetone 500 MG Oral TabletOriginal Medicationnabumetone 500 MG Oral Tablet *Reorder from [employer] for eRx and Interaction Alerts* 06/29/20 12 Active Spironolactone 25 MG Oral Tablet ORAL spironolactone 25 MG Oral TabletOriginal Medicationspironolactone 25 MG Oral Tablet *Reorder from [employer] for eRx and Interaction Alerts* 04/07/20 14 Active Allopurinol 300 MG Oral Tablet ORAL allopurinol 300 MG Oral TabletOriginal Medicationallopurinol 300 MG Oral Tablet *Reorder from [employer] for eRx and Interaction Alerts* 04/07/20 14 Active Encounters Encounter Location Date Provider Diagnosis [facility] [address] [id number] 04/11/2024 ADRIEN CONTRERAS 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 04/11/2024 Pain in left toe(s) (ICD-10 - M79.675) 04/11/2024 Other hammer toe(s) (acquired), right foot [...] were emphasized. 04/11/2024 Other hammer toe(s) (acquired), left foot (ICD-10 - M20.42) 04/11/2024 Pain in right toe(s) (ICD-10 - [...] or drainage was noted. Plan Of Treatment Treatment Notes Assessment Notes Unspecified atherosclerosis of chilkoot arteries of extremities, bilateral legs Patient educated on risks and aggravating factors of PVD, including conservative treatment options such as a diet and exercise regimen to aid in slowing progression of vascular disease Tinea unguium Aseptic debridement of elongated thickened nails x [...] educated regarding both OTC and prescription treatments. Other hammer toe(s) (acquired), right fo ot The patient was educated regarding how to [...] were discussed, but conservative options were emphasized. Acquired keratosis [keratode rma] palmaris et plantaris Pre-ulcerative keratoderma debrided sharply down to the level of healthy tissue using a 15 blade. After removal of overlying extensive hyperkeratosis, healthy tissue was noted and care was taken to assure that no undermining or probing was present. It should be noted that no probing was noted and no infection or drainage was noted. Next Appt Details Follow Up: 3 Months, Reason: Provider Name:WILFREDO MARTIN, 12/12/2024 03:30:00 PM, [address] [place] [address], [phone], Progress Notes * MATEUSZ MONROE ADOB:[birth year] (58 yo F)Acc No.[id number]:04/11/2024 Patient: MATEUSZ ZHU A Provider: Bryon CONTRERAS :1965 A ge:58 Y S ex:Female Date:04/11/2024 Address:[address] [place] [address] Subjective: * Chief Complaints: * 1 . *General care. * HPI: H PI: General care P atient presents to the office for diabetic foot care. Patient states that their nails are thickened, elongated and painful. Patient states that it is aggravated by shoe gear. Onset is gradual., Patient denies taking blood thinners., Date last seen by Dr. Meehan was 01/2024., Initials [facility]. * ROS: G eneral / Constitutional: Patient denies w eakness. R espiratory: Patient denies c hronic cough, shortness of breath, sputum production. C ardiovascular: Patient denies c hest pain, history of [place], irregular heartbeat. M usculoskeletal: Patient complains of h ammertoes. P eripheral Vascular: Patient denies b lanching of skin, cold extremities, decreased sensation in extremities. S kin: Patient complains of f ungal nails, nail changes. ? N eurologic: Patient denies d izziness, gait abnormality, headache. * Medical History: * Medications: T aking Allopurinol 300 MG Oral Tablet ORAL , Notes to Pharmacist: allopurinol 300 MG Oral TabletOriginal Medicationallopurinol 300 MG Oral Tablet *Reorder from [employer] for eRx and Interaction Alerts*, Taking Spironolactone 25 MG Oral Tablet ORAL , Notes to Pharmacist: spironolactone 25 MG Oral TabletOriginal Medicationspironolactone 25 MG Oral Tablet *Reorder from [facility] for eRx and Interaction Alerts*, Taking Nabumetone 500 MG Oral Tablet ORAL , Notes to Pharmacist: nabumetone 500 MG Oral TabletOriginal Medicationnabumetone 500 MG Oral Tablet *Reorder from [facility] for eRx and Interaction Alerts*, Taking Pravastatin Sodium 10 MG Oral Tablet ORAL , Notes to Pharmacist: pravastatin sodium 10 MG Oral TabletOriginal Medicationpravastatin sodium 10 MG Oral Tablet *Reorder from [facility] for eRx and Interaction Alerts*, Taking Losartan Potassium 100 MG Oral Tablet ORAL , Notes to Pharmacist: losartan potassium 100 MG Oral TabletOriginal Medicationlosartan potassium 100 MG Oral Tablet *Reorder from [facility] for eRx and Interaction Alerts*, Taking 3 ML insulin glargine 100 UNT/ML Pen Injector [Lantus] , Notes to Pharmacist: 3 ML insulin glargine 100 UNT/ML Pen Injector [Lantus]Original Medication3 ML insulin glargine 100 UNT/ML Pen Injector [Lantus] *Reorder from [facility] for eRx and Interaction Alerts*, Taking cholecalciferol 0.025 MG Oral Capsule ORAL , Notes to Pharmacist: cholecalciferol 0.025 MG Oral CapsuleOriginal Medicationcholecalciferol 0.025 MG Oral Capsule *Reorder from [facility] for eRx and Interaction Alerts*, Taking ciclopirox 80 MG/ML Topical Solution CUTANEOUS , Notes to Pharmacist: ciclopirox 80 MG/ML Topical SolutionOriginal Medicationciclopirox 80 MG/ML Topical Solution *Reorder from [facility] for eRx and Interaction Alerts*, Taking cinnamon bark 500 MG Oral Capsule ORAL , Notes to Pharmacist: cinnamon bark 500 MG Oral CapsuleOriginal Medicationcinnamon bark 500 MG Oral Capsule *Reorder from [facility] for eRx and Interaction Alerts*, Taking esomeprazole 20 MG Injection INTRAVENOUS , Notes to Pharmacist: esomeprazole 20 MG InjectionOriginal Medicationesomeprazole 20 MG Injection *Reorder from [facility] for eRx and Interaction Alerts*, Taking levothyroxine sodium 0.1 MG Oral Capsule ORAL , Notes to Pharmacist: levothyroxine sodium 0.1 MG Oral CapsuleOriginal Medicationlevothyroxine sodium 0.1 MG Oral Capsule *Reorder from [facility] for eRx and Interaction Alerts*, Taking nortriptyline 50 MG Oral Capsule ORAL , Notes to Pharmacist: nortriptyline 50 MG Oral CapsuleOriginal Medicationnortriptyline 50 MG Oral Capsule *Reorder from [facility] for eRx and Interaction Alerts*, Taking propranolol hydrochloride 40 MG Oral Tablet ORAL , Notes to Pharmacist: propranolol hydrochloride 40 MG Oral TabletOriginal Medicationpropranolol hydrochloride 40 MG Oral Tablet *Reorder from [facility] for eRx and Interaction Alerts*, Taking verapamil hydrochloride 40 MG Oral Tablet ORAL , Notes to Pharmacist: verapamil hydrochloride 40 MG Oral TabletOriginal Medicationverapamil hydrochloride 40 MG Oral Tablet *Reorder from [facility] for eRx and Interaction Alerts* Objective: * Examination: P hysical Examination: V ascular: Dorsalis Pedis pulse noted at 1/4 right foot and 1/4 left foot and Posterior Tibial pulse noted at 1/4 right foot and 1/4 left foot, Capillary refill times noted to be less than three seconds x ten, Temperature gradient noted to be warm to cool to bilateral foot, pedal hair present to bilateral foot and no varicosities are noted Dermatologic: there are no open lesions, no signs of active clinical infection, no erythema noted, no ecchymoses, nails are elongated thickened and dystrophic with subungual debris to left hallux Musculoskeletal: there is pain to palpation onto nail plate to left hallux, no calf pain noted bilaterally, arch height noted at 2/5 non-weight bearing bilaterally, first metatarsophalangeal joint range of motion 30 deg non-weight bearing bilaterally, flexible fifth digit hammer toe deformity noted to bilateral foot reducible with kelikian push up test Neurology: protective sensation intact to light touch bilateral digits one through five, vibratory sensation intact to first metatarsophalangeal joint bilaterally. Assessment: * Assessment: 1. T inea unguium - B35.1 (Primary) 2 . U nspecified atherosclerosis of chilkoot arteries of extremities, bilateral legs - I70.203 3 . P ain in left toe(s) - M79.675 4 . O ther hammer toe(s) (acquired), right foot - M20.41 5 . O ther hammer toe(s) (acquired), left foot - M20.42 6 . P ain in right toe(s) - M79.674 7 . A cquired keratosis [keratoderma] palmaris et plantaris - L85.1 Plan: * Treatment: 2. U nspecified atherosclerosis of chilkoot arteries of extremities, bilateral legs Notes: Patient educated on risks and aggravating factors of PVD, including conservative treatment options such as a diet and exercise regimen to aid in slowing progression of vascular disease ? 3. O ther hammer toe(s) (acquired), right foot Notes: The patient was educated regarding how to [...] were discussed, but conservative options were emphasized. 4. A cquired keratosis [keratoderma] palmaris et plantaris Notes: Pre-ulcerative keratoderma debrided sharply down to the level of healthy tissue using a 15 blade. After removal of overlying extensive hyperkeratosis, healthy tissue was noted and care was taken to assure that no undermining or probing was present. It should be noted that no probing was noted and no infection or drainage was noted. * Follow Up: 3 Months * Billing Information: * Visit Code: 21243 Office Visit, Est Pt., Level 3. * Procedure Codes: * Sign off status: Completed true * Provider: Bryon CONTRERAS Date: 0 04/11/2024 Generated for uCrt small/Ana Maria/Jose on: 0 10/29/2024 01:34 PM CDT History and Physical Notes * HPI (History of Present Illness) Category Sub-Category Detail Notes Category Not es HPI General care Patient presents to the office for diabetic foot care. Patient states that their nails are thickened, elongated and painful. Patient states that it is aggravated by shoe gear. Onset is gradual., Patient denies taking blood thinners., Date last seen by Dr. Meehan was 01/2024., Initials [facility] Examination Category Sub-Category Detail Notes Category Not es Physical Examination Vascular: Dorsalis Pedis pulse noted at 1/4 right foot and 1/4 left foot and Posterior Tibial pulse noted at 1/4 right foot and 1/4 left foot, Capillary refill times noted to be less than three seconds x ten, Temperature gradient noted to be warm to cool to bilateral foot, pedal hair present to bilateral foot and no varicosities are noted Dermatologic: there are no open lesions, no signs of active clinical infection, no erythema noted, no ecchymoses, nails are elongated thickened and dystrophic with subungual debris to left hallux Musculoskeletal: there is pain to palpation onto nail plate to left hallux, no calf pain noted bilaterally, arch height noted at 2/5 non-weight bearing bilaterally, first metatarsophalangeal joint range of motion 30 deg non-weight bearing bilaterally, flexible fifth digit hammer toe deformity noted to bilateral foot reducible with kelikian push up test Neurology: protective sensation intact to light touch bilateral digits one through five, vibratory sensation intact to first metatarsophalangeal joint bilaterally
--- OUTSIDE RECORDS SUMMARY | 2024-10-29 13:34 | XMS_ITS | Encounter Summary ---
Author Organization [facility] Address [facility] [place] [address] Care Team Providers Care Submarine Cable Equipment Technician Name Role Phone Alexis Thurman MD Unavailable [facility] Cee Rodriguez APRN, MERCHANDISE SUPERVISOR-C Unavailable Virgilio Meehan DO Primary Care Provider [phone] Mame Osborn MD Unavailable [phone] Encounter Details Date Type Department Care Team (Late Contact Info) Description 12/21/2022 Abstract [facility] [address] [place], [place] [address] [place] [address] [place] [address] [phone] (Work) Social History Tobacco Use Types Packs/Day Years [...] suspected to have Coronavirus/COVID-19? No / Unsure 12/19/2022 1:48 PM CDT documented as of this encounter Plan of Treatment Upcoming Encounters Date Type Department Care Team (Late st Contact Info) Description 11/04/2024 10:30 AM CDT Office Visit [facility] [address] [place] [address] Gonzalez Wilson MD [address] [place], [place] [id number] Ella Witt MD [address] [place], [place] [id number] documented as of this encounter Visit Diagnoses Not on filedocumented in this encounter Care Teams Submarine Cable Equipment Technician Relationship Specialty Start Date End Date Virgilio Meehan DO [address] [place] [address] PCP - General FAMILY PRACTICE 09/08/22 Alexis Thurman MD [facility] Nurse Practitioner CARDIOVASCULAR DISEASE 09/14/18 04/01/24 Cee Liu, INVENTORY COORDINATOR, MERCHANDISE SUPERVISOR-C [address] [facility] [address] [place] [address] NURSE PRACTITIONER 05/27/22 Mame Osborn MD [address] [place] [address] INTERVENTIONAL CARDIOLOGY 05/10/24 documented as of this encounter
--- OUTSIDE RECORDS SUMMARY | 2024-10-29 13:34 | XMS_ITS | Clinical Summary ---
Author Organization [facility] Address [facility] [place] [address] Care Team Providers Care Application Processor Name Role Phone Cee Liu APRN SPORTS DEVELOPMENT OFFICER-C Unavailable Virgilio Meehan DO Primary Care Provider [phone] Mame Osborn MD Unavailable [phone] Allergies Active Allergy Reactions Criticality Noted Date Comments Amoxicillin-Pot Clavulanate Diarrhea 05/27/2022 Metformin Other (see comment) 05/27/2022 Renal function impairment Pantoprazole Other (see comment) 05/27/2022 Hypomagnesemia Medications CPAP DME DEVICE CPAPCPAP [id number] via IV [id number] -2018Lefty Morrissey 8 Active pravastatin (PRAVACHOL) 20 MG tablet Take 1 tablet (20 mg total) by mouth. 1 Active allopurinol 100 MG tablet Take 1 tablet (100 mg total) by mouth daily. 9 Active Dapagliflozin Propanediol 10 MG Tab Take 1 tablet (10 mg total) by mouth daily. 9 Active levothyroxine 100 MCG tablet Take 1 tablet (100 mcg total) by mouth every morning. 9 Active propranolol LA 60 MG 24 hr capsule Take 1 capsule (60 mg total) by mouth daily. 9 Active cyanocobalamin 1000 MCG/ML injection Inject 1 mL (1,000 mcg total) into the muscle monthly. Active fluticasone propionate 50 MCG/ACT nasal spray 2 sprays by Nasal route as needed for Rhinitis or Allergies. As directed 1 Active HYDROcodone-acet aminophen 7.5-325 MG tablet Take 1 tablet by mouth every 4 (four) hours as needed for Pain. PRN 1 Active ferrous sulfate, 65 mg elemental, 325 (65 FE) MG tablet Take 1 tablet (325 mg total) by mouth 2 (two) times daily. Active Cholecalciferol 100 MCG (4000 UT) Cap Take 1 tablet by mouth daily. Active Multiple Vitamin (MULTIVITAMIN ADULT OR) Take 2 tablets by mouth daily. Active Nutritional Supplements (JUICE PLUS FIBRE OR) Take 1 capsule by mouth 2 (two) times a day. Active Ascorbic Acid (VITAMIN C) 100 MG tablet Take 1 tablet (100 mg total) by mouth daily. Active dicyclomine (BENTYL) 20 MG tablet Take 1 tablet (20 mg total) by mouth as needed. 2 Active TRUEplus Lancets 28G Misc As directed 2 Active semaglutide (OZEMPIC) 2 mg/dose injection (PEN) Inject 2 mg into the skin once a week. 3 Active losartan (COZAAR) 50 MG tablet Take 1 tablet (50 mg total) by mouth daily. Active Magnesium Hydroxide 600 MG Chew Tab Chew 1 tablet by mouth 2 (two) times daily. Active CREON 12506-765759 units capsule Take 2 capsules (72,000 units of lipase total) by mouth 3 (three) times daily with meals. 4 Active cholestyramine (QUESTRAN) 4 GM/DOSE powder Take 1 packet (4 g total) by mouth daily. 4 Active isosorbide mononitrate ER (IMDUR) 30 MG 24 hr tablet Take 1 tablet (30 mg total) by mouth daily. 90 tablet 3 4 Active Active Problems Problem Noted Date Diagnosed Date H/O gastric sleeve 01/09/2024 Stage 3b chronic kidney disease 08/31/2023 Hypertension, essential 08/31/2023 Vitamin D deficiency, unspecified 08/31/2023 Iron deficiency anemia, unsp ecified iron deficiency anemia type 08/31/2023 Hypomagnesemia 05/07/2023 Hydronephrosis of right kidney 06/28/2021 Sleep apnea 11/06/2018 BMI 50.0-59.9, adult 04/17/2018 Allergic rhinitis 12/11/2017 Cough 12/11/2017 Difficulty breathing 12/11/2017 Morbid obesity due to excess calories 04/06/2017 Overview (10/22/2018): Last Assessment & Plan: Continues to gain weight. Little attempt at diet and exercise. Reviewed importance of avoiding juice, soda, high fat, high carb foods. Chronic renal insufficiency, stage III (moderate ) 10/08/2015 Vitamin D deficiency 10/08/2015 Hyperlipidemia 09/19/2012 Overview (10/22/2018): Overview: HYPERLIPIDEMIA NEC/NOS Last Assessment & Plan: Will check lipid panel Hypertension associated with diabetes ([facility]) 09/19/2012 Overview (10/22/2018): Overview: Unspecified essential hypertension Last Assessment & Plan: Controlled on current medications. Type 2 diabetes mellitus ([facility]) 06/28 Overview (10/22/2018): Overview: DMII WO CMP UNCNTRLD Last Assessment & Plan: A1c 8.1. Baseline BG reported at goal. Suspect pc excursions are reason for poor control but returns to baseline. Would benefit from CGM as this would provide daily education re: specific foods and BG patterns. Will try for this. No change to medication plan today. Family History Medical History Relation Comments Arthritis Brother heart murmur Brother Diabetes Father Stroke Father Stent Cardiac Mother TAVR Mother bad knees Mother pacemaker Mother spinal stenosis Mother Hypertension Sister 1 heart murmur Sister 2 Relation Status Comments Brother Alive Father Mother Alive Sister 1 Alive Sister 2 Alive Social History Tobacco Use Types Packs/Day Years Used Date Smoking Tobacco: Never Smokeless Tobacco: Never Tobacco Cessation:Counseling Given: Not Answered Alcohol Use Standard Drinks/Week Comments Not Currently 0 (1 standard drink = 0.6 oz pur e alcohol) Comments No Sex and Gender Information Value Date Recorded Sex Assigned at Not on file Legal Sex Female 1:26 AM CDT Gender Identity Not on file Sexual Orientation Not on file Last Filed Vital Signs Vital Sign Reading Time Taken Comments Blood Pressure 122/72 05/10/2024 12:40 PM CDT Pulse 94 05/10/2024 12:40 PM CDT Temperature 36.2 C (97.2 F) 06/29/2022 6:18 AM ELECTRICAL LOGGING OPERATOR Respiratory Rate 16 05/10/2024 12:40 PM CDT Oxygen Saturation 100% 11/02/2023 2:52 PM CDT Inhaled Oxygen Concentration - - Weight 109.8 kg (242 lb) 05/10/2024 12:40 PM CDT Height 170.2 cm (5' 7 ) 05/10/2024 12:40 PM CDT Body Mass Index 37.9 05/10/2024 12:40 PM CDT Plan of Treatment Upcoming Encounters Date Type Department Care Team (Late st Contact Info) Description 11/04/2024 10:30 AM CDT Office Visit [facility] [place] [address] Gonzalez Wilson MD [address] [place] [address] Ella Witt MD [address] [place] [address] Health Maintenance Due Date Last Done Comments Cervical Cancer Screening Pap Smear (Age 30 to 64) Every 3 Years 1967 Colorectal Cancer Screening Colonoscopy (10 Years) 1967 Kidney Health Evaluation 1967 Hemoglobin A1C 1967 Annual Physical 10/25/1970 Diabetes: Retinopathy Eye Exam 10/25/1985 Hepatitis C 10/25/1985 Hepatitis B Vaccines (1 of 3 - 19+ 3-dose series) 10/25/1986 Cervical Cancer Screening Pap with HPV Testing (Age 30 to 64) Every 5 Years 10/25/1997 Cervical Cancer Screening with HPV 10/25/1997 Mammogram Screening 2007 Lipid Panel 07/23/2010 07/23/2009 Pneumococcal Vaccine: Pediatrics (0 to 5 Years) and At-Risk Patients (6 to 64 Years) (2 of 2 - PCV) 04/02/2016 04/02/2015, 08/21/2010 Zoster Vaccines (2 of 2) 06/02/2021 04/07/2021 COVID-19 Vaccine ( season) 2024 06/21/2021, 10/03/2020, 09/05/2020 Influenza Adult (#1) 2024 05/11/2021, 04/21/2020, 05/13/2019, Additional history exists DTaP, Tdap and Td Vaccines (6 - Td or Tdap) 04/23/2027 04/23/2017, 07/25/2006, 11/07/1969, Additional history exists Meningococcal B Vaccine Aged Out No l onger eligible based on patient's age to complete this topic Meningococcal Vaccine Aged Out No debbie manav eligible based on patient's age to complete this topic RSV Immunizations Under 20 Months Aged Out No longer eligible based on patient's age to complete this topic Medical Devices Implanted Type Area Civil Project Engineer Device Identifier Shelf Expiration Date Model / Serial / Lot Stent Ureteral [place] [employer] Contour 6fr X 26cm - [id number] Implanted:Qty : 1 on 06/28/2021 by Ryan Vinson MD at [facility] Stent Right: Ureter [employer] MASOOD [id number] 04/12/2024 [id number] 30 / / [id number] Procedures Procedure Name Priority Date/Time Associated Diagnosis Comments LIPID PANEL Routine 07/23/2009 12:00 AM ELECTRICAL LOGGING OPERATOR from Last 3 Months or Most Recently Relevant to Health Maintenance Results * LIPID PANEL (07/23/2009 12:00 AM ELECTRICAL LOGGING OPERATOR) TRIGLYCERIDES 132 0 - 150 mg/dl MEDINFORMATIX TO EPIC CONVERSION CHOLESTEROL 180 0 - 200 mg/dl MEDINFORMATIX TO EPIC CONVERSION HDL 61 40 - 59 mg/dl MEDINFORMAT[employer] TO EPIC CONVERSION LDL CONVERSION 93 0 - 100 mg/dl MEDINFORMAT[employer] TO EPIC CONVERSION CHOL/HDL RATIO 3.0 <4.0 (Calc) MEDINFORMATIX TO EPIC CONVERSION 07/23/2009 07/23/2009 Narrative MEDINFORMATIX TO EPIC CONVERSION - 07/23/2009 1:31 PM ELECTRICAL LOGGING OPERATOR Reviewed by ANGELA Jul 23 2009 1:33:00:000PM us Generic Conversion Md [facility] Final R esult MEDINFORMATIX TO EPIC CONVERSION from Last 3 Months or Most Recently Relevant to Health Maintenance Insurance MEDICAID Member Subscriber Plan / Payer (Ef fective 2018-Present) Name:Keri Stone Relation to Subscriber:Self Name:Little Stonei Ann Payer ID:Not on file Group ID:Not on file Type:Not on file Address: [address] MEDICAID Member Subscriber Plan / Payer (Ef fective 2018-Present) Name:Keri Stone Ann Relation to Subscriber:Self Name:Krystamarsha Keri Ly Payer ID:Not on file Group ID:Not on file Type:Not on file Address: [address] MEDICAID Advance Directives * Full Code (Latest Code Status on File) Date Activated Date Inactivated Comments 06/29/2022 9:52 AM 06/29/2022 1:43 PM Care Teams Application Processor Relationship Specialty Start Date End Date Virgilio Meehan DO [address] [place] [address] PCP - General FAMILY PRACTICE 09/08/22 Cee Liu, DEPARTMENT SPECIALIST, SPORTS DEVELOPMENT OFFICER-C [address] [facility] [address] [place] [id number] NURSE PRACTITIONER 05/27/22 Mame Osborn MD [address] [place] [address] INTERVENTIONAL CARDIOLOGY 05/10/24
--- OUTSIDE RECORDS SUMMARY | 2024-10-29 13:34 | XMS_ITS | Encounter Summary ---
Author Organization [facility] Address [facility] [place] [address] Care Team Providers Care Wet Cleaner Machine Name Role Phone Alexis Thurman MD Unavailable Unavailabl e Cee Liu APRN, FORGING DIES FINAL FINISHER-C Unavailable Virgilio Meehan DO Primary Care Provider [phone] Mame Osborn MD Unavailable [phone] Encounter Details Date Type Department Care Team (Late st Contact Info) Description [facility]2022 [facility] [address] [place] [address] Alexis Thurman MD Social History [...] suspected to have Coronavirus/COVID-19? No / Unsure 09/08/2022 8:48 AM FILM WAXER documented as of this encounter Plan of Treatment Upcoming Encounters Date Type Department Care Team (Late st Contact Info) Description 11/04/2024 10:30 AM CDT Office Visit [facility] [address] [place] [address] Gonzalez Wilson MD [address] [place], [place] [address] Ella Witt MD [address] [place], [place] [address] documented as of this encounter Visit Diagnoses Not on filedocumented in this encounter Care Teams Wet Cleaner Machine Relationship Specialty Start Date End Date Virgilio Meehan DO [address] [place], [place] [id number] PCP - General FAMILY PRACTICE 09/08/22 Alexis Thurman MD [place] Rail Manager CARDIOVASCULAR DISEASE 09/14/18 04/01/24 Cee Liu APRN, FORGING DIES FINAL FINISHER-C [address] [facility] [address] [place] [phone] NURSE PRACTITIONER 05/27/22 Mame Osborn MD [address] [place] [address] INTERVENTIONAL CARDIOLOGY 05/10/24 documented as of this encounter
--- OUTSIDE RECORDS SUMMARY | 2024-10-29 13:34 | XMS_ITS | Encounter Summary ---
Author Organization [facility] Address [facility] [place] [address] Care Team Providers Care Laboratory Director Name Role Phone Alexis Thurman MD Un[facility] Willian Silva MD Primary Care Provider [phone] Cee Liu APRN NON LICENSED NUCLEAR PLANT OPERATOR-C Unavailable Virgilio Meehan DO Primary Care Provider [phone] Mame Osborn MD Unavailable [phone] Encounter Details Date Type Department Care Team (Late st Contact Info) Description 06/24/2022 Hospital Orders Only [place] Yeast Culture Operator Pre/Post [address] [place] [address] Alexis Thurman MD Social History Tobacco Use [...] suspected to have Coronavirus/COVID-19? No / Unsure 06/09/2022 1:51 PM CDT documented as of this encounter Plan of Treatment Upcoming Encounters Date Type Department Care Team (Late st Contact Info) Description 11/04/2024 10:30 AM CDT Office Visit [facility] [place] [address] Gonzalez Wilson MD [address] [place] [address] Ella Witt MD [address] [place], [place] [address] documented as of this encounter Visit Diagnoses Not on filedocumented in this encounter Care Teams Laboratory Director Relationship Specialty Start Date End Date Willian Mendoza MD [address] [place] [phone] PCP - General INTERNAL MEDICINE 09/14/18 09/07/22 Virgilio Meehan DO [address] [place] [address] PCP - General FAMILY PRACTICE 09/08/22 Alexis Thurman MD [place] Architectural Examiner CARDIOVASCULAR DISEASE 09/14/18 04/01/24 Cee Liu, ANGEL, NON LICENSED NUCLEAR PLANT OPERATOR-C [address] [facility] [address] [place] [address] NURSE PRACTITIONER 05/27/22 Mame Osborn MD [address] [place], [place] [id number] INTERVENTIONAL CARDIOLOGY 05/10/24 documented as of this encounter
--- OUTSIDE RECORDS SUMMARY | 2024-10-29 13:34 | XMS_ITS | Referral Summary ---
Author Organization [address] Address [address] [place] [id number] Care Team Providers Care Recruiter Manager Name Role Phone Willian Mendoza MD Primary Care Provider [phone] Encounters Date Type Department Care Team Description 10/18/2024 Telephone [facility] [address] [address] Anthony Castillo MD 09/11/2024 Telephone [facility] [address] [address] Anthony Castillo MD Fax [facility] new prescription request 08/13/2024 Telephone [facility] [address] [address] Anthony Castillo MD Test Results 08/07/2024 3:15 PM SENIOR DOT NET DEVELOPER Lab [address] [address] Type 2 diabetes mellitus with hyperglycemia, with long-term current use of insulin (HCC); Acquired hypothyroidism 08/07/2024 2:15 PM SENIOR DOT NET DEVELOPER Office Visit [facility] [address] [address] Anthony Castillo MD Type 2 diabetes mellitus with hyperglycemia, with long-term current use of insulin (HCC) (Primary Dx); Morbid (severe) obesity due to excess calories (HCC); Acquired hypothyroidism; Hyperlipidemia associated with type 2 diabetes mellitus (HCC) from Last 3 Months Allergies Active Allergy Reactions Criticality Noted Date [...] mouth 2 (two) times a day Active ohmcnylzrspw-Gl-am on-minerals tablet Take 1 tablet by mouth [...] long-term current use of insulin (HCC) USE FOR TESTING FOUR TIMES A DAY DIRECTED 400 each 3 03/21/20 22 Active pen needle, diabetic (TRUEplus Pen Needle) 31 gauge x 11/03 needle Use to inject insulin up to 5 times daily 450 each 2 03/21/20 22 Active alcohol swabs (BD Alcohol Swabs) pads, medicatedIndicatio ns:Type 2 diabetes mellitus with hyperglycemia, with long-term current use of insulin (HCC) USE DIRECTED 4 TIMES DAILY 400 each [...] 1 tablet (100 mcg total) by mouth licensed mental health counselor before breakfast 90 tablet 3 12/18/20 24 Active Farxiga 10 mg tabletIndications: Type 2 diabetes mellitus with hyperglycemia, with long-term current use of insulin (HCC) TAKE 1 TABLET BY MOUTH DAILY 100 tablet 2 09/04/19 25 Active blood-glucose sensor device Change sensors every 10 days Dx. E11.65 9 each 3 09/11/19 25 Active Active Problems Problem Noted Date Diagnosed Date Acquired hypothyroidism 03/17/2022 Assessment & Plan (08/07/2024 5:51 PM SENIOR DOT NET DEVELOPER): Chronic, stable. Continue levothyroxine Update TFTs Assessment & Plan (08/10/2023 3:53 PM SENIOR DOT NET DEVELOPER): Chronic, well-controlled Importance of taking levothyroxine [...] 04/17/2018 Assessment & Plan (08/07/2024 5:51 PM SENIOR DOT NET DEVELOPER): Chronic, stable Update lipid profile Continue statin therapy Assessment & Plan (08/10/2023 3:53 PM SENIOR DOT NET DEVELOPER): Chronic, well-controlled Continue statin therapy with Pravachol Assessment & Plan (01/17/2023 1:59 PM CDT): Chronic, well controlled Low fat Low cholesterol diet Exercise Continue statin therapy with Pravachol Assessment & Plan (03/17/2022 9:47 AM CDT): Chronic problem. On statin therapy, no changes. Assessment & Plan (10/28/2021 1:21 PM SENIOR DOT NET DEVELOPER): Chronic problem. On statin therapy, no [...] Pravachol Assessment & Plan (09/27/2019 9:29 AM SENIOR DOT NET DEVELOPER): LDL at goal. Trigs elevated. Continue [...] therapy Assessment & Plan (08/07/2018 1:59 PM SENIOR DOT NET DEVELOPER): At goal on current medications. Assessment [...] dicussed Assessment & Plan (09/27/2019 9:29 AM SENIOR DOT NET DEVELOPER): Continues to do well with wt [...] adjusted. Assessment & Plan (08/07/2018 1:59 PM SENIOR DOT NET DEVELOPER): Continues to gain weight. Little attempt at diet and exercise. Reviewed importance of avoiding juice, soda, high fat, high carb foods. Assessment & Plan (10/05/2017 2:49 PM SENIOR DOT NET DEVELOPER): Diet and exercise were discussed. 1200 Calorie diet advised 45-60 min aerobic / resistance exercise most days of the week recommended. Bariatric surgery medically indicated Assessment & Plan (07/20/2017 4:17 PM SENIOR DOT NET DEVELOPER): Importance of following diet and exercising [...] changes. Assessment & Plan (10/28/2021 1:21 PM SENIOR DOT NET DEVELOPER): Controlled on current medications, no changes. [...] microalbumin Assessment & Plan (09/27/2019 9:29 AM SENIOR DOT NET DEVELOPER): Controlled on current medications. Continue plan. Assessment & Plan (06/06/2019 2:49 PM CDT): Controlled on current medications. Continue plan. Assessment & Plan (11/01/2018 2:04 PM CDT): Goal blood pressure is less than 140/85 Low salt diet recommended Daily aerobic exercise Continue current meds, including ALYCE-I or ARB Assessment & Plan (08/07/2018 2:00 PM SENIOR DOT NET DEVELOPER): Controlled on current medications. Assessment & Plan (04/17/2018 2:07 PM CDT): Goal blood pressure is less than 140/85 Low salt diet recommended Daily aerobic exercise Continue current meds, including ALYCE-I or ARB Assessment & Plan (10/05/2017 2:50 PM SENIOR DOT NET DEVELOPER): Goal blood pressure is less than 140/85 Low salt diet recommended Daily aerobic exercise Continue current meds, including ALYCE-I or ARB Assessment & Plan (07/20/2017 4:18 PM SENIOR DOT NET DEVELOPER): Controlled on current medications. Assessment & Plan (04/06/2017 4:28 PM CDT): At goal on current medications. Hyperlipidemia 09/19/2012 Overview (11/24/2016): HYPERLIPIDEMIA NEC/NOS Assessment & Plan (06/06/2019 2:49 PM CDT): Lipid panel ordered Assessment & Plan (07/20/2017 4:18 PM SENIOR DOT NET DEVELOPER): Will check lipid panel Assessment & Plan (04/06/2017 4:28 PM CDT): Check labs and focus on low fat foods Furuncle of trunk 06/28/2012 Overview (11/23/2016): Carbuncle and furuncle of trunk Type 2 diabetes mellitus 06/28/2012 Overview (11/24/2016): DMII WO CMP UNCNTRLD Assessment & Plan (08/07/2024 5:50 PM SENIOR DOT NET DEVELOPER): Chronic, stable Diet and exercise were emphasized Continue Farxiga and Ozempic Assessment & Plan (02/13/2024 4:29 PM CDT): Chronic, well-controlled. Continue Ozempic 2 mg weekly Farxiga 10 mg Importance of diet and exercise was discussed Assessment & Plan (08/10/2023 3:52 PM SENIOR DOT NET DEVELOPER): Chronic, well-controlled, with some postprandial hyperglycemia [...] Farxita Assessment & Plan (07/19/2022 1:34 PM SENIOR DOT NET DEVELOPER): Hba1c was Lab Results Component Value [...] today. Assessment & Plan (10/28/2021 1:43 PM SENIOR DOT NET DEVELOPER): Chronic problem, not at goal. Increase [...] Novolog, 12 units with dinner only Continue Bydureon and Farxiga. Assessment & Plan (05/28/2020 4:24 [...] breakfast Assessment & Plan (09/27/2019 9:31 AM SENIOR DOT NET DEVELOPER): A1c increased to 7.8. Pattern acceptable during the day but elevated in evening due to pattern of eating. Diet and importance of evaluating ac/pc BG trends reviewed. Continue Lantus, Farxiga, Bydureon. 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 Assessment & Plan (08/07/2018 2:02 PM SENIOR DOT NET DEVELOPER): A1c 8.1. Baseline BG reported at [...] discussed. Assessment & Plan (10/05/2017 2:51 PM SENIOR DOT NET DEVELOPER): Hba1c was . 9.6 . today, [...] discussed. Assessment & Plan (07/20/2017 4:17 PM SENIOR DOT NET DEVELOPER): A1c improved 8.7, ~ 2%. Mostly [...] Resolved Date BMI 50.0-59.9, adult 04/17/2018 020 Social History Tobacco Use Types Packs/Day Years [...] on file Legal Sex Female 10:22 AM SENIOR DOT NET DEVELOPER Gender Identity Not on file Sexual Orientation Straight 08/07/2024 2: 11 PM SENIOR [employer] NET DEVELOPER Last Filed Vital Signs Vital Sign Reading Time Taken Comments Blood Pressure 100/68 08/07/2024 2:37 PM SENIOR DOT NET DEVELOPER Pulse 66 08/07/2024 2:37 PM SENIOR [employer] NET DEVELOPER Temperature - - Respiratory Rate 17 08/07/2024 2:37 PM SENIOR DOT NET DEVELOPER Oxygen Saturation - - Inhaled Oxygen Concentration - - Weight 109 kg (240 lb 6.4 oz) 08/07/2024 2:37 PM SENIOR DOT NET DEVELOPER Height 170.2 cm (5' 7 ) 08/07/2024 2:37 PM SENIOR DOT NET DEVELOPER Body Mass Index 37.65 08/07/2024 2:37 PM SENIOR [employer] NET DEVELOPER Plan of Treatment Not on file Procedures Procedure Name Priority Date/Time Associated Diagnosis Comments EGFR Routine 08/07/2024 3:23 PM SENIOR [employer] NET DEVELOPER Type 2 diabetes mellitus with hyperglycemia, with long-term current use of insulin (HCC) DIFFERENTIAL AUTO Routine 08/07/2024 3:2 3 PM SENIOR [employer] NET DEVELOPER Type 2 diabetes mellitus with hyperglycemia, with long-term current use of insulin (HCC) COMPREHENSIVE METABOLIC PANEL Routine 08/07/2024 3:23 PM SENIOR [employer] NET DEVELOPER Type 2 diabetes mellitus with hyperglycemia, with long-term current use of insulin (HCC) TSH Routine 08/07/2024 3:23 PM SENIOR DOT NET DEVELOPER Acquired hypothyroidism T4, FREE Routine 08/07/2024 3:23 PM SENIOR [employer] NET DEVELOPER Acquired hypothyroidism CBC WITH AUTO DIFFERENTIAL Routine 08/07/2024 3:23 PM SENIOR [employer] NET DEVELOPER Type 2 diabetes mellitus with hyperglycemia, with long-term current use of insulin (HCC) POCT GLUCOSE Routine 08/07/2024 2:38 PM SENIOR [employer] NET DEVELOPER Type 2 diabetes mellitus with hyperglycemia, with long-term current use of insulin (HCC) POCT HEMOGLOBIN A1C Routine 08/07/2024 2 :38 PM SENIOR DOT NET DEVELOPER Type 2 diabetes mellitus with hyperglycemia, with long-term current use of insulin (HCC) HM DIABETES EYE EXAM Routine 10/11/2023 9:29 AM SENIOR DOT NET DEVELOPER ALBUMIN CREATININE RATIO, URINE Routine 08/28/2023 7:38 AM SENIOR DOT NET DEVELOPER LIPID PANEL Routine 08/10/2023 1:53 PM SENIOR DOT NET DEVELOPER Hyperlipidemia associated with type 2 diabetes mellitus (HCC) from Last 3 Months or Most Recently Relevant to Health Maintenance Results * (ABNORMAL) eGFR (08/07/2024 3:23 PM SENIOR DOT NET DEVELOPER) eGFR 35(L) >=60 mL/min/1. 73 m2 [...] last reviewed 2021. Blood 08/07/2024 3:23 PM SENIOR DOT NET DEVELOPER 08/07/2024 6:55 PM SENIOR DOT NET DEVELOPER us Anthony Castillo MD LAB BLOOD ORDERABLES Final Resul t OLGA [id number] [address] [place] [address] * (ABNORMAL) Differential, auto (08/07/2024 3:23 PM SENIOR DOT NET DEVELOPER) Neutrophil abs 7.9(H) 1.5 - 6.5 K/cumm Imm gran abs 0.1 0.0 - 0.1 K/cumm [facility] Lymphocyte abs 3.1 0.8 - 3.3 K/cumm [facility] Monocyte abs 0.6 0.2 - 0.8 K/cumm [facility] Eosinophil abs 0.5 0.0 - 0.5 K/cumm [facility] Basophil abs 0.1 0.0 - 0.1 K/cumm [facility] Neutrophil pct 64.7 % [facility] Comment: Interpretive Data Percent cell count reference ranges are not reported, since discordance with absolute values may lead to misinterpretation of CBC data. Current Interpretive Data was last revised on 2017. Imm gran pct 0.4 % [facility] Comment: Interpretive Data Percent cell count reference ranges are not reported, since discordance with absolute values may lead to misinterpretation of CBC data. Current Interpretive Data was last revised on 2017. Lymphocyte pct 25.2 % [facility] Comment: Interpretive Data Percent cell count reference ranges are not reported, since discordance with absolute values may lead to misinterpretation of CBC data. Current Interpretive Data was last revised on 2017. Monocyte pct 4.9 % [facility] Comment: Interpretive Data Percent cell count reference ranges are not reported, since discordance with absolute values may lead to misinterpretation of CBC data. Current Interpretive Data was last revised on 2017. Eosinophil pct 4.1 % [facility] Comment: Interpretive Data Percent cell count reference ranges are not reported, since discordance with absolute values may lead to misinterpretation of CBC data. Current Interpretive Data was last revised on 2017. Basophil pct 0.7 % [facility] Comment: Interpretive Data Percent cell count reference ranges are not reported, since discordance with absolute values may lead to misinterpretation of CBC data. Current Interpretive Data was last revised on 2017. Blood 08/07/2024 3:23 PM SENIOR DOT NET DEVELOPER 08/07/2024 6:45 PM SENIOR DOT NET DEVELOPER us Anthony Castillo MD LAB BLOOD ORDERABLES Final Resul t Performing Organization Address City/[facility]/ZIP Co de Phone Number OLGA HORNER [address] [place] [address] * (ABNORMAL) CBC with auto differential (08/07/2024 3:23 PM SENIOR DOT NET DEVELOPER) WBC 12.2(H) 3.8 - 9.9 K/cumm Hgb 11.2(L) 11.9 - 15.5 g/dL [facility] Hct 35.7 35.6 - 45.5 % [facility] Plt 250 150 - 400 K/cumm [facility] MPV 10.8 9.1 - 12.3 fL [facility] RBC 3.84(L) 3.90 - 5.20 M/cumm [facility] MCV 93.0 81.3 - 96.4 fL [facility] MCH 29.2 27.1 - 33.3 pg [facility] MCHC 31.4(L) 32.3 - 35.7 g/dL [facility] RDW CV 12.9 11.1 - 14.9 % [facility] RDW SD 43.8 35.7 - 48.1 fL [facility] NRBC abs 0.00 0.00 - 0.01 K/cumm [facility] Blood 08/07/2024 3:23 PM SENIOR DOT NET DEVELOPER 08/07/2024 6:45 PM SENIOR DOT NET DEVELOPER us Anthony Castillo MD LAB BLOOD ORDERABLES Final Resul t Performing Organization Address City/[facility]/ZIP Co de Phone Number OLGA HORNER [id number] [address] Department [place] [address] [place] [address] * TSH (08/07/2024 3:23 PM SENIOR DOT NET DEVELOPER) Thyroid Stimulating Hormone 1.47 0.30 - 4.20 mcIUnit/mL Blood 08/07/2024 3:23 PM SENIOR DOT NET DEVELOPER 08/07/2024 6:45 PM SENIOR DOT NET DEVELOPER us Anthony Castillo MD LAB BLOOD ORDERABLES Final Resul t Performing Organization Address [facility] Co de Phone Number OLGA HORNER [phone] [facility] [place] [address] * (ABNORMAL) T4, free (08/07/2024 3:23 PM SENIOR DOT NET DEVELOPER) Pathologist [facility] Free T4 1.75(H) 0.90 - 1.70 ng/dL Blood 08/07/2024 3:23 PM SENIOR DOT NET DEVELOPER 08/07/2024 6:45 PM SENIOR DOT NET DEVELOPER us Anthony Castillo MD LAB BLOOD ORDERABLES Final Resul t Performing Organization Address [facility] de Phone Number OLGA HORNER [address] [employer] [place] [address] * (ABNORMAL) Comprehensive metabolic panel (08/07/2024 3:23 PM SENIOR DOT NET DEVELOPER) Pathologist [facility] Sodium 142 135 - 145 mmol/L Potassium, pl 3.8 3.3 - 4.9 mmol/L [facility] Chloride 105 97 - 110 mmol/L [facility] CO2 25 22 - 32 mmol/L [facility] Anion gap 12 2 - 15 mmol/L [facility] BUN 27(H) 6 - 25 mg/dL [facility] Creatinine 1.68(H) 0.60 - 1.10 mg/dL [facility] Glucose 165 70 - 199 mg/dL [facility] Comment: Interpretive Data Fasting glucose >/= 126 [...] classification and Diagnosis of Diabetes Diabetes Care 202; 46: S19-S40. Current interpretive data was last [...] Units/L [facility] Blood 08/07/2024 3:23 PM SENIOR DOT NET DEVELOPER 08/07/2024 6:45 PM SENIOR DOT NET DEVELOPER Result Jerrod Castillo MD LAB BLOOD ORDERABLES Final Resul t [facility] [id number] [address] [place] [address] * (ABNORMAL) POCT hemoglobin A1c (08/07/2024 2:38 PM SENIOR DOT NET DEVELOPER) Hemoglobin A1C, POC 7.1 4.0 - 5.6 % Comment:None Capillary blood 08/07/2024 2 :38 PM SENIOR DOT NET DEVELOPER Result Jerrod Castillo MD POINT OF CARE TEST ORDERABLES Fi nal Result * (ABNORMAL) POCT glucose (08/07/2024 2:38 PM SENIOR DOT NET DEVELOPER) Glucose Blood, POC 187 mg/dL Comment:None Blood 08/07/2024 2:38 PM SENIOR DOT NET DEVELOPER Result Jerrod Castillo MD POINT OF CARE TEST ORDERABLES Fi nal Result * (ABNORMAL) DIABETES EYE EXAM (10/11/2023 9:29 AM SENIOR DOT NET DEVELOPER) Result Jerrod Salgado MD HEALTH MAINTENANCE Final Result * (ABNORMAL) Albumin Creatinine Ratio, Urine (08/28/2023 7:38 AM SENIOR DOT NET DEVELOPER) SCRIBED Creatinine, Urine 75.44 40 - 278 EXTERNAL LAB SCRIBED Microalbumin 13.4(A) 0.0 - 11.9 EXTERNAL LAB SCRIBED Microalb/Creat Ratio 0.18 0 - 0.20 EXTERNAL LAB Urine 08/28/2023 7:38 AM SENIOR DOT NET DEVELOPER us Historical Provider LAB URINE ORDERABLES Edit ed Result - Final EXTERNAL LAB * (ABNORMAL) Lipid panel (08/10/2023 1:53 PM SENIOR DOT NET DEVELOPER) Cholesterol 164 30 - 199 mg/dL [...] revised on 2018. Chol/HDL ratio 3 OLGA HORNER Blood 08/10/2023 1:53 PM SENIOR DOT NET DEVELOPER 08/10/2023 7:31 PM SENIOR DOT NET DEVELOPER us Anthony Castillo MD LAB BLOOD ORDERABLES Final Resul t OLGA [address]NER [id number] [address] [place] [address] from Last 3 Months or Most Recently Relevant to Health Maintenance Insurance [facility] [place] [address] MEDICARE [employer] [facility] MEDICARE Address: [facility] [address] [place] [address] MEDICARE [employer] [facility] MEDICARE Address: [address] [address] [place] [address] [place] [address] Care Teams Recruiter Manager Relationship Specialty Start Date End Date Willian Mendoza MD PCP - General 02/18/16
--- OUTSIDE RECORDS SUMMARY | 2024-10-29 13:35 | XMS_ITS | Encounter Summary ---
Author Organization [facility] Address [facility] [place] [address] Care Team Providers Care Track Welder Name Role Phone Alexis Thurman MD Unavailable Unavailabl e Willian Mendoza MD Primary Care Provider [phone] Cee Liu APRN NEEDLE FELT MAKING MACHINE OPERATOR-C Unavailable Virgilio Meehan DO Primary Care Provider [phone] Mame Osborn MD Unavailable [phone] Encounter Details Date Type Department Care Team (Late st Contact Info) Description 11/04/2017 Abstract [facility] CONVERSION [address] [place] [address] , Generic ConversionMD Social History Tobacco Use Types Packs/Day Years [...] Description 11/04/2024 10:30 AM CDT Office Visit [facility] [address] [place] [address] Gonzalez Wilson MD [address] [place] [address] Ella Witt MD [address] [place], [place] [id number] documented as of this encounter Visit Diagnoses Not on filedocumented in this encounter Care Teams Track Welder Relationship Specialty Start Date End Date Willian Mendoza MD [address] [place] [address] PCP - General INTERNAL MEDICINE 09/14/18 09/07/22 Virgilio Meehan DO [address] [place] [address] PCP - General FAMILY PRACTICE 09/08/22 Alexis Thurman MD [place] Paint Crew Supervisor CARDIOVASCULAR DISEASE 09/14/18 04/01/24 Cee Liu, ANGEL, NEEDLE FELT MAKING MACHINE OPERATOR-C [address] [facility] [address] [place] [address] NURSE PRACTITIONER 05/27/22 Mame Osborn MD [address] [place] [address] INTERVENTIONAL CARDIOLOGY 05/10/24 documented as of this encounter
--- OUTSIDE RECORDS SUMMARY | 2024-10-29 13:35 | XMS_ITS ---
Author Organization [facility] Address [address] [place], [place] [address] Care Team Providers Care Data Management Associate Name Role Phone MIRIAN MOSHER Unavailable [phone] Virgilio Meehan Unavailable Unavailable REASON FOR VISIT Patient presents for at-risk foot care . The patient has painful toenails and calluses that are causing difficulty with ambulation and shoegear. The onset is gradual Medications Medication SIG (Take, Route, Frequency, Duration) Notes Start Date End Date Status nortriptyline 50 MG Oral Capsule ORAL nortriptyline 50 MG Oral CapsuleOriginal Medicationnortriptyline 50 MG Oral Capsule *Reorder from [employer] Review Source for eRx and Interaction Alerts* 04/07/20 14 Active esomeprazole 20 MG Injection INTRAVENOUS esomeprazole 20 MG InjectionOriginal Medicationesomeprazole 20 MG Injection *Reorder from [employer] App Review Source for eRx and Interaction Alerts* 04/07/20 14 Active levothyroxine sodium 0.1 MG Oral Capsule ORAL levothyroxine sodium 0.1 MG Oral CapsuleOriginal Medicationlevothyroxine sodium 0.1 MG Oral Capsule *Reorder from [employer] App Review Source for eRx and Interaction Alerts* 04/07/20 14 Active propranolol hydrochloride 40 MG Oral Tablet ORAL propranolol hydrochloride 40 MG Oral TabletOriginal Medicationpropranolol hydrochloride 40 MG Oral Tablet *[facility]Rx and Interaction Alerts* 04/07/20 14 Active verapamil hydrochloride 40 MG Oral Tablet ORAL verapamil hydrochloride 40 M G Oral TabletOriginal Medicationverapamil hydrochloride 40 MG Oral Tablet *[facility] for eRx and Interaction Alerts* 04/07/20 14 Active ciclopirox 80 MG/ML Topical Solution CUTANEOUS ciclopirox 80 MG/ML Topical SolutionOriginal Medicationciclopirox 80 MG/ML Topical Solution *Reorder from [employer] for eRx and Interaction Alerts* 04/20/20 12 Active cinnamon bark 500 MG Oral Capsule ORAL cinnamon bark 500 MG Oral CapsuleOriginal Medicationcinnamon bark 500 MG Oral Capsule *Reorder from [employer] for eRx and Interaction Alerts* 04/07/20 14 Active 3 ML insulin glargine 100 UNT/ML Pen Injector [Lantus] 3 ML insulin glargine 100 UNT/ML Pen Injector [Lantus]Original Medication3 ML insulin glargine 100 UNT/ML Pen Injector [Lantus] *Reorder from [employer] [facility] for eRx and Interaction Alerts* 04/07/20 14 Active cholecalciferol 0.025 MG Oral Capsule ORAL cholecalciferol 0.025 MG Ora l CapsuleOriginal Medicationcholecalciferol 0.025 MG Oral Capsule *Reorder from [employer] [facility] for eRx and Interaction Alerts* 04/07/20 14 Active Losartan Potassium 100 MG Oral Tablet ORAL losartan potassium 100 MG Oral TabletOriginal Medicationlosartan potassium 100 MG Oral Tablet *Reorder from [employer] [facility] for eRx and Interaction Alerts* 04/07/20 14 Active Allopurinol 300 MG Oral Tablet ORAL allopurinol 300 MG Oral TabletOriginal Medicationallopurinol 300 MG Oral Tablet *Reorder from [employer] for eRx and Interaction Alerts* 04/07/20 14 Active Pravastatin Sodium 10 MG Oral Tablet ORAL pravastatin sodium 10 MG Ora l TabletOriginal Medicationpravastatin sodium 10 MG Oral Tablet *Reorder from [employer] [facility] for eRx and Interaction Alerts* 04/07/20 14 Active Spironolactone 25 MG Oral Tablet ORAL spironolactone 25 MG Oral TabletOriginal Medicationspironolactone 25 MG Oral Tablet *Reorder from [employer] [facility] for eRx and Interaction Alerts* 04/07/20 14 Active Nabumetone 500 MG Oral Tablet ORAL nabumetone 500 MG Oral TabletOriginal Medicationnabumetone 500 MG Oral Tablet *Reorder from [employer] for eRx and Interaction Alerts* 06/29/20 12 Active Encounters Encounter Location Date Provider Diagnosis [facility] [address] [place], [place] [id number] 10/10/2024 MIRIAN MOSHER Tinea unguium B35.1 ; Acquired 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 ; Atherosclerosis of [place] arteries of extremities with intermittent claudication, bilateral legs I70.213 ; Pain in right foot M79.671 and Pain in left foot M79.672 Assessments Encounter Date Diagnosis (ICD Code) Assessment Notes Treatment Notes Treatment Clinical Notes Section Notes 10/10/2024 Tinea unguium (ICD-10 - B35.1) Nails [...] utilizing a #15 blade 10/10/2024 Atherosclerosis of [place] arteries of extremities with intermittent claudication, bilateral legs (ICD-10 - I70.213) 10/10/2024 Pain in right foot (ICD-10 - M79.671) 10/10/2024 Pain in left foot (ICD-10 - M79.672) Plan Of Treatment Treatment Notes Assessment Notes Tinea unguium Nails 1-5 Bilateral were debrided extensively with nail nippers and emery board, reducing length and girth to pink healthy tissue with any subungual debris and necrotic tissue removed Acquired keratosis [keratode rma] palmaris et plantaris A total of ___ corns or calluses, as described in the note above, were cut and pared utilizing a #15 blade Next Appt Details Follow Up: 10 - 12 weeks, Re ason: At-Risk Foot care, sooner if problems develop. Provider Name:WILFREDO MARTIN, 12/12/2024 03:30:00 PM, [address] [place] [address], [id number], Progress Notes * MATEUSZ MONROE ADOB:[birth year] (59 yo F)Acc No.[id number]:10/10/2024 Patient: MATEUSZ ZHU Provider: Roosevelt Mosher DPM :1965 A ge:58 Y S ex:Female Date:10/10/2024 Address:[address] [place] [address] Subjective: * Chief Complaints: * Jerrica chung presents for at-risk foot care . The patient has painful toenails and calluses that are causing difficulty with ambulation and shoegear. The onset is gradual * HPI: H PI: General care Jerrica chung presents to the office for diabetic foot care. Patient states that their nails are thickened, elongated and painful. Patient states that it is aggravated by shoe gear. Onset is gradual., Patient denies taking blood thinners., Date last seen by Dr. Meehan was 07/2024., Initials mca. * ROS: G eneral / Constitutional: Patient denies c hills, fever, weight loss. ? M usculoskeletal: Patient complains of m etatarsus adductus deformity right, custom shoe modification. P eripheral Vascular: Patient denies p ain / cramping in legs after exertion, ulceration of feet. S kin: Patient complains of f ungal nails, nail changes, calluses and corns. N eurologic: Patient denies b alance difficulty, confusion, difficulty speaking, dizziness. * Medical History: * Surgical History: * Hospitalization/Major Diagno stic Procedure: * Medications: T akingAllopurinol 300 MG Oral Tablet ORAL , Notes to Pharmacist: allopurinol 300 MG Oral TabletOriginal Medicationallopurinol 300 MG Oral Tablet *Reorder from [employer] for eRx and Interaction Alerts*Spironolactone 25 MG Oral Tablet ORAL , Notes to Pharmacist: spironolactone 25 MG Oral TabletOriginal Medicationspironolactone 25 MG Oral Tablet *Reorder from [employer] for eRx and Interaction Alerts*Nabumetone 500 MG Oral Tablet ORAL , Notes to Pharmacist: nabumetone 500 MG Oral TabletOriginal Medicationnabumetone 500 MG Oral Tablet *[facility]Rx and Interaction Alerts*Pravastatin Sodium 10 MG Oral Tablet ORAL , Notes to Pharmacist: pravastatin sodium 10 MG Oral TabletOriginal Medicationpravastatin sodium 10 MG Oral Tablet *Reorder from [facility] for eRx and Interaction Alerts*Losartan Potassium 100 MG Oral Tablet ORAL , Notes to Pharmacist: losartan potassium 100 MG Oral TabletOriginal Medicationlosartan potassium 100 MG Oral Tablet *Reorder from [facility] for eRx and Interaction Alerts*3 ML insulin glargine 100 UNT/ML Pen Injector [Lantus] , Notes to Pharmacist: 3 ML insulin glargine 100 UNT/ML Pen Injector [Lantus]Original Medication3 ML insulin glargine 100 UNT/ML Pen Injector [Lantus] *Reorder from [facility] for eRx and Interaction Alerts*cholecalciferol 0.025 MG Oral Capsule ORAL , Notes to Pharmacist: cholecalciferol 0.025 MG Oral CapsuleOriginal Medicationcholecalciferol 0.025 MG Oral Capsule *Reorder from [facility] for eRx and Interaction Alerts*ciclopirox 80 MG/ML Topical Solution CUTANEOUS , Notes to Pharmacist: ciclopirox 80 MG/ML Topical SolutionOriginal Medicationciclopirox 80 MG/ML Topical Solution *Reorder from [facility] for eRx and Interaction Alerts*cinnamon bark 500 MG Oral Capsule ORAL , Notes to Pharmacist: cinnamon bark 500 MG Oral CapsuleOriginal Medicationcinnamon bark 500 MG Oral Capsule *Reorder from [facility] for eRx and Interaction Alerts*esomeprazole 20 MG Injection INTRAVENOUS , Notes to Pharmacist: esomeprazole 20 MG InjectionOriginal Medicationesomeprazole 20 MG Injection *Reorder from [facility] for eRx and Interaction Alerts*levothyroxine sodium 0.1 MG Oral Capsule ORAL , Notes to Pharmacist: levothyroxine sodium 0.1 MG Oral CapsuleOriginal Medicationlevothyroxine sodium 0.1 MG Oral Capsule *Reorder from [facility] for eRx and Interaction Alerts*nortriptyline 50 MG Oral Capsule ORAL , Notes to Pharmacist: nortriptyline 50 MG Oral CapsuleOriginal Medicationnortriptyline 50 MG Oral Capsule *Reorder from [facility] for eRx and Interaction Alerts*propranolol hydrochloride 40 MG Oral Tablet ORAL , Notes to Pharmacist: propranolol hydrochloride 40 MG Oral TabletOriginal Medicationpropranolol hydrochloride 40 MG Oral Tablet *Reorder from [facility] for eRx and Interaction Alerts*verapamil hydrochloride 40 MG Oral Tablet ORAL , Notes to Pharmacist: verapamil hydrochloride 40 MG Oral TabletOriginal Medicationverapamil hydrochloride 40 MG Oral Tablet *Reorder from [facility] for eRx and Interaction Alerts*Medication List reviewed and reconciled with the patientTaking Allopurinol 300 MG Oral Tablet ORAL , Notes to Pharmacist: allopurinol 300 MG Oral TabletOriginal Medicationallopurinol 300 MG Oral Tablet *Reorder from [facility] for eRx and Interaction Alerts*Taking Spironolactone 25 MG Oral Tablet ORAL , Notes to Pharmacist: spironolactone 25 MG Oral TabletOriginal Medicationspironolactone 25 MG Oral Tablet *Reorder from [facility] for eRx and Interaction Alerts*Taking Nabumetone 500 MG Oral Tablet ORAL , Notes to Pharmacist: nabumetone 500 MG Oral TabletOriginal Medicationnabumetone 500 MG Oral Tablet *Reorder from [facility] for eRx and Interaction Alerts*Taking Pravastatin Sodium 10 MG Oral Tablet ORAL , Notes to Pharmacist: pravastatin sodium 10 MG Oral TabletOriginal Medicationpravastatin sodium 10 MG Oral Tablet *Reorder from [facility] for eRx and Interaction Alerts*Taking Losartan Potassium 100 MG Oral Tablet ORAL , Notes to Pharmacist: losartan potassium 100 MG Oral TabletOriginal Medicationlosartan potassium 100 MG Oral Tablet *Reorder from [facility] for eRx and Interaction Alerts*Taking 3 ML insulin glargine 100 UNT/ML Pen Injector [Lantus] , Notes to Pharmacist: 3 ML insulin glargine 100 UNT/ML Pen Injector [Lantus]Original Medication3 ML insulin glargine 100 UNT/ML Pen Injector [Lantus] *Reorder from [facility] for eRx and Interaction Alerts*Taking cholecalciferol 0.025 MG Oral Capsule ORAL , Notes to Pharmacist: cholecalciferol 0.025 MG Oral CapsuleOriginal Medicationcholecalciferol 0.025 MG Oral Capsule *Reorder from [facility] for eRx and Interaction Alerts*Taking ciclopirox 80 MG/ML Topical Solution CUTANEOUS , Notes to Pharmacist: ciclopirox 80 MG/ML Topical SolutionOriginal Medicationciclopirox 80 MG/ML Topical Solution *Reorder from [facility] for eRx and Interaction Alerts*Taking cinnamon bark 500 MG Oral Capsule ORAL , Notes to Pharmacist: cinnamon bark 500 MG Oral CapsuleOriginal Medicationcinnamon bark 500 MG Oral Capsule *Reorder from [facility] for eRx and Interaction Alerts*Taking esomeprazole 20 MG Injection INTRAVENOUS , Notes to Pharmacist: esomeprazole 20 MG InjectionOriginal Medicationesomeprazole 20 MG Injection *Reorder from [facility] for eRx and Interaction Alerts*Taking levothyroxine sodium 0.1 MG Oral Capsule ORAL , Notes to Pharmacist: levothyroxine sodium 0.1 MG Oral CapsuleOriginal Medicationlevothyroxine sodium 0.1 MG Oral Capsule *Reorder from [facility] for eRx and Interaction Alerts*Taking nortriptyline 50 MG Oral Capsule ORAL , Notes to Pharmacist: nortriptyline 50 MG Oral CapsuleOriginal Medicationnortriptyline 50 MG Oral Capsule *Reorder from [facility] for eRx and Interaction Alerts*Taking propranolol hydrochloride 40 MG Oral Tablet ORAL , Notes to Pharmacist: propranolol hydrochloride 40 MG Oral TabletOriginal Medicationpropranolol hydrochloride 40 MG Oral Tablet *Reorder from [facility] for eRx and Interaction Alerts*Taking verapamil hydrochloride 40 MG Oral Tablet ORAL , Notes to Pharmacist: verapamil hydrochloride 40 MG Oral TabletOriginal Medicationverapamil hydrochloride 40 MG Oral Tablet *Reorder from [facility] for eRx and Interaction Alerts*Medication List reviewed and reconciled with the patient Objective: * Vitals: * Examination: P hysical Examination: General appearance: A lert, pleasant, well-nourished and in no acute distress. D ermatologic: Skin findings: S kin is thin, atrophic and lacking pedal hair. Nail pathology: N ails 1, 2, 3, 4, and 5 bilateral are elongated, thick, discolored, and dystrophic with subungual debris. They are painful to palpation. ? V ascular: Dorsalis pedis pulse: 1 /4 b ilateral. Posterior tibial pulse: 0 /4 bilateral. Capillary refill: g reater than 3 seconds. Edema: N o edema bilateral. N eurologic: Gross sensation G rossly intact to light touch. There is negative Tinel's sign. M usculoskeletal: Muscle Strength M uscle strength is 5/5 in regards to dorsiflexion, plantarflexion, inversion, and eversion in bilateral lower extremities. 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 Assessment: * Assessment: 1. T anitaa unguium - B35.1 (Primary) 2 . A cquired keratosis [keratoderma] palmaris et plantaris - L85.1 3 . A therosclerosis of coe[place] arteries of extremities with intermittent claudication, bilateral legs - I70.213 4 . P ain in right foot - M79.671 5 . P ain in left foot - M79.672 Plan: * Treatment: 2. A cquired keratosis [keratoderma] palmaris et plantaris Notes: A total of ___ corns or calluses, as described in the note above, were cut and pared utilizing a #15 blade * Procedure Codes: * Follow Up: 1 0 - 12 weeks (Reason: At-Risk Foot care, sooner if problems develop.) * Billing Information: * Visit Code: 98122 Office Visit, Est Pt., Level 3. * Procedure Codes: * Sign off status: Completed true * Provider: Roosevelt Mosher DPM Date: 0 10/10/2024 Generated for Curt small/Ana Maria/Jose on: 0 [...] Date last seen by Dr. Meehan was 07/2024., Initials mca Examination Category Sub-Category Detail Notes Category Not es Dermatologic Skin findings: Skin is thin, at rophic and lacking pedal hair Nail pathology: Nails 1, 2, 3, 4, an d 5 bilateral are elongated, thick, discolored, and dystrophic with subungual debris. They are painful to palpation Neurologic Gross sensation Grossly intact t o light touch. There is negative Tinel's sign Vascular Dorsalis pedis pulse: 1/4 bilateral Edema: No edema bilateral Capillary refill: greater than 3 secon ds Posterior tibial pulse: 0/4 bilateral Physical Examination General appearance: Alert, pleasant, well-nourished and in no acute distress Musculoskeletal Muscle Strength Muscle strength is 5/5 in regards to dorsiflexion, plantarflexion, inversion, and eversion in bilateral lower extremities Foot Structure The right foot has s evere metatarsus adductus deformity with varus
--- OUTSIDE RECORDS SUMMARY | 2024-10-29 13:35 | XMS_ITS | Continuity of Care Document ---
Author Organization [facility] Address [address] [facility] [address] [place] [address] Phone Care Team Providers Care Manufacturing Engineer Chief Name Role Phone Nilson Vaughan Unavailable Unavailable [...] Diagnoses Date Provider Providers Copied on Encounter [facility], [address], [place], [place], [id number], [place] tel:[phone] [facility] No Information Clement Devine. [address] [place], [address], [place]. tel:[phone] Referring Provider: Nilson Stewart, [address] [place], [address]. tel:[phone] [facility], [address], [place], [place], [id number], [place] tel:[phone] [facility] No Information Clement Devine. [address] [place], [address], [place]. tel:[phone] Referring Provider: Nilson Stewart, [address] [place], [address]. tel:[phone] [facility], [address], [place], [place], [id number], [place] tel:[phone] [facility] No Information Clement Devine. [address] [place], [address], [place]. tel:[phone] Referring Provider: Nilson Stewart, [address] [place], [address]. tel:[phone] [facility], [address], [place], [place], [id number], [place] tel:[phone] [facility] No Information Clement Devine. [address] [place], [address], [place]. [phone] Referring Provider: Nilson Stewart, [address] [place], [address]. tel:[phone] [facility], [address], [place], [place], [id number], [place] tel:[phone] [facility] No Information Clement Devine. [address] [place], [address], [place]. tel:[phone] [facility], [address], [place], [place], [id number], [place] tel:[phone] [facility] No Information Clement Devine. [address] [place], [address], [place]. tel:[phone] Referring Provider: Nilson Stewart, [address] [place], [address]. tel:[phone] Office/outpat ient Visit, [facility], [address], [place], [place], [id number], [place] tel:[phone] [facility] No Information Clement Devine. [address] [place], [address], [place]. tel:[phone] Family History Family Member Type Diagnosis Age At Onset No Information Payers Payer name Insurance type Covered democrat ID Authorshiloha tiisaiah(s) Medicaid [facility] [id number] Social History Type Description Quantity Date Captured [...]
[2024-10-30 13:28] LABS: Parathyroid Intact 10 pg/mL (16-77)
== END 2024-10-29 12:13 | disposition home or self-care (01) ==
LOC: CHSLAB 12:15 → CHSTREATRM 12:21
PROVIDERS: PCP Nurse Practitioner Family; Visit Provider Internal Medicine Nephrology
DX: D51.9 Vitamin B12 deficiency anemia, unspecified (principal); E83.42 Hypomagnesemia; N18.30 Chronic kidney disease, stage 3 unspecified
CPT/HCPCS: 36415; 80069; 83735; 83970; 85025; 96372; J3420

== ENCOUNTER 2024-11-16 14:37 | Outpatient (CLI) | payer MEDICARE, MEDICAID, SELFPAY ==
--- OUTSIDE RECORDS SUMMARY | 2024-11-16 14:42 | XMS_ITS | Encounter Summary ---
Author Organization [facility] Address [facility] [place] [address] Care Team Providers Care Casting Sorter Name Role Phone Alexis Thurman MD Unavailable Unavailabl e Willian Mendoza MD Primary Care Provider [phone] Cee Liu APRN TABLE COVER FOLDER-C Unavailable [phone] Virgilio Meehan DO Primary Care Provider [phone] Mame Osborn MD Unavailable [phone] Encounter Details Date Type Department Care Team (Late st Contact Info) Description 10/12/2018 Abstract [facility] [address] [place] [id number] Abstract, Doc [facility] Social History Tobacco Use Types Packs/Day Years Used Date Smoking Tobacco: Never Comments Unknown Sex and Gender Information Value Date Recorded Sex Assigned at Female 11/04/2024 11:14 AM CDT Legal Sex Female 1:26 AM CDT Gender Identity Not on file Sexual Orientation Not on file documented as of this encounter Plan of Treatment Not on file documented as of this encounter Visit Diagnoses Not on filedocumented in this encounter Care Teams Casting Sorter Relationship Specialty Start Date End Date Willian Mendoza MD [address] [place] [address] PCP - General INTERNAL MEDICINE 09/14/18 09/07/22 Virgilio Meehan DO [address] [place] [address] PCP - General FAMILY PRACTICE 09/08/22 Alexis Thurman MD [employer] Interior Designer CARDIOVASCULAR DISEASE 09/14/18 04/01/24 Cee Liu, PRINTED CIRCUIT BOARD DRAFTER, TABLE COVER FOLDER-C [address] [facility] [address] [place] [phone] NURSE PRACTITIONER 05/27/22 Mame Osborn MD [address] [place] [address] INTERVENTIONAL CARDIOLOGY 05/10/24 documented as of this encounter
--- OUTSIDE RECORDS SUMMARY | 2024-11-16 14:42 | XMS_ITS | Encounter Summary ---
Author Organization [facility] Address [facility] [place] [address] Care Team Providers Care Plant Breeder Name Role Phone Alexis Thurman MD Unavailable Unavailabl e Willian Mendoza MD Primary Care Provider [phone] Cee Liu APRN, CUSTOMER SERVICE REP-C Unavailable Virgilio Meehan DO Primary Care Provider [phone] Mame Osborn MD Unavailable [phone] Encounter Details Date Type Department Care Team (Late st Contact Info) Description 04/07/2021 Abstract [facility] [address] [place] [address] Ella Witt MD [address] [place] [address] Social History Tobacco Use Types Packs/Day Years [...] on filedocumented in this encounter Care Teams Plant Breeder Relationship Specialty Start Date End Date Willian Mendoza MD [address] [place] [address] PCP - General INTERNAL MEDICINE 09/14/18 09/07/22 Virgilio Meehan DO [address] [place] [address] PCP - General FAMILY PRACTICE 09/08/22 Alexis Thurman MD [place] Engineering Intern CARDIOVASCULAR DISEASE 09/14/18 04/01/24 Cee Liu APRN, CUSTOMER SERVICE REP-C [address] [facility] [address] [place] [address] NURSE PRACTITIONER 05/27/22 Mame Osborn MD [address] [place] [address] INTERVENTIONAL CARDIOLOGY 05/10/24 documented as of this encounter
--- OUTSIDE RECORDS SUMMARY | 2024-11-16 14:42 | XMS_ITS | Encounter Summary ---
Author Organization [facility] Address Counts include 234 beds at the [facility] [place] [address] Care Team Providers Care Greenhouse Worker Name Role Phone Alexis Thurman MD Unavailable Unavailabl e Willian Mendoza MD Primary Care Provider [phone] Cee Liu APRN, WIDE AREA NETWORK ENGINEER-C Unavailable [phone] Virgilio Meehan DO Primary Care Provider [phone] Mame Osborn MD Unavailable [phone] Encounter Details Date Type Department Care Team (Late st Contact Info) Description 06/24/2022 Hospital Orders Only [facility] Chief Service Dispatcher Pre/Post [address] [place] [address] Alexis Thurman MD Social History Tobacco Use [...] on filedocumented in this encounter Care Teams Greenhouse Worker Relationship Specialty Start Date End Date Willian Mendoza MD [address] [place] [address] PCP - General INTERNAL MEDICINE 09/14/18 09/07/22 Virgilio Meehan DO [address] [place] [address] PCP - General FAMILY PRACTICE 09/08/22 Alexis Thurman MD [employer] Financial Analyst CARDIOVASCULAR DISEASE 09/14/18 04/01/24 Cee Liu, ANGEL, WIDE AREA NETWORK ENGINEER-C [address] [facility] [address] [place] [address] NURSE PRACTITIONER 05/27/22 Mame Osborn MD [address] [place], [place] [id number] INTERVENTIONAL CARDIOLOGY 05/10/24 documented as of this encounter
--- OUTSIDE RECORDS SUMMARY | 2024-11-16 14:42 | XMS_ITS | Encounter Summary ---
Author Organization [facility] Address [facility] [place] [address] Care Team Providers Care Barrelhead Inspector Name Role Phone Alexis Thurman MD Unavailable Unavailabl e Willian Mendoza MD Primary Care Provider [phone] Cee Liu APRN STEEL BUFFER-C Unavailable Virgilio Meehan DO Primary Care Provider [phone] Mame Osborn MD Unavailable [phone] Encounter Details Date Type Department Care Team (Late st Contact Info) Description 07/04/2022 [facility] [address] [place] [phone] Alexis Thurman MD Social History Tobacco Use [...] Coronavirus/COVID-19? No / Unsure 06/29/2022 5:44 AM CONDUIT HELPER documented as of this encounter Plan of Treatment Not on file documented as of this encounter Procedures Procedure [...] on filedocumented in this encounter Care Teams Barrelhead Inspector Relationship Specialty Start Date End Date Willian Mendoza MD [address] [place] [phone] PCP - General INTERNAL MEDICINE 09/14/18 09/07/22 Virgilio Meehan DO [address] [place] [address] PCP - General FAMILY PRACTICE 09/08/22 Alexis Thurman MD [place] Math Tutor CARDIOVASCULAR DISEASE 09/14/18 04/01/24 Cee Liu, CHIEF CUSTOMER OFFICER, STEEL BUFFER-C [address] [facility] [address] [place] [address] NURSE PRACTITIONER 05/27/22 Mame Osborn MD [address] [place] [address] INTERVENTIONAL CARDIOLOGY 05/10/24 documented as of this encounter
--- OUTSIDE RECORDS SUMMARY | 2024-11-16 14:42 | XMS_ITS | Encounter Summary ---
Author Organization [facility] Address [facility] [place] [address] Care Team Providers Care Second Steward Name Role Phone Alexis Thurman MD Unavailable Unavailabl e Cee Liu APRN, IT PROGRAMMER-C Unavailable [phone] Virgilio Meehan DO Primary Care Provider [phone] Mame Osborn MD Unavailable [phone] Encounter Details Date Type Department Care Team (Late Contact Info) Description 09/23/2022 [facility] [address] [place] [phone] Alexis Thurman MD Social History Tobacco Use [...] Coronavirus/COVID-19? No / Unsure 09/08/2022 8:48 AM COSMETIC CONSULTANT documented as of this encounter Plan of Treatment Not on file documented as of this encounter Visit Diagnoses Not on filedocumented in this encounter Care Teams Second Steward Relationship Specialty Start Date End Date Virgilio Meehan DO [address] [place] [address] PCP - General FAMILY PRACTICE 09/08/22 Alexis Thurman MD [place] Wax Machine Operator CARDIOVASCULAR DISEASE 09/14/18 04/01/24 Cee Liu, WAREHOUSE GUARD, IT PROGRAMMER-C [address] [facility] [address] [place] [phone] NURSE PRACTITIONER 05/27/22 Mame Osborn MD [address] [place] [address] INTERVENTIONAL CARDIOLOGY 05/10/24 documented as of this encounter
--- OUTSIDE RECORDS SUMMARY | 2024-11-16 14:42 | XMS_ITS | Referral Summary ---
Author Organization [address] Address [address] [place] [id number] Care Team Providers Care Inside Sales Associate Name Role Phone Willian Mendoza MD Primary Care Provider Encounters Date Type Department Care Team Description 10/18/2024 Telephone [facility] [address] [address] Anthony Castillo MD 09/11/2024 Telephone [facility] [address] [address] Anthony Castillo MD Fax [facility] new prescription request from Last 3 Months Allergies Active Allergy [...] mouth 2 (two) times a day Active [id number]-Qq-ai on-minerals tablet Take 1 tablet by mouth [...] 1 tablet (100 mcg total) by mouth 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 Continue levothyroxine Update TFTs Assessment & Plan (08/10/2023 3:53 PM CONFERENCE PLANNING MANAGER): Chronic, well-controlled Importance of taking levothyroxine on [...] lifestyle. Body mass index (BMI) 45.0-49.9, adult Bariatric surgery status 03/17/2022 Assessment & Plan (03/17/2022 10:16 AM CDT): Her bariatric surgeon has moved and his practice closed, requests to see another one as she has questions. Referral placed. CKD (chronic kidney disease) stage 3, GFR 30-59 ml/min 04/17/2018 Hyperlipidemia associated with type 2 diabetes verenice casa 04/17/2018 Assessment & Plan (08/07/2024 5:51 PM CONFERENCE PLANNING MANAGER): Chronic, stable Update lipid profile Continue statin therapy Assessment & Plan (08/10/2023 3:53 PM CONFERENCE PLANNING MANAGER): Chronic, well-controlled Continue statin therapy with Pravachol Assessment & Plan (01/17/2023 1:59 PM CDT): Chronic, well controlled Low fat Low cholesterol diet Exercise Continue statin therapy with Pravachol Assessment & Plan (03/17/2022 9:47 AM CDT): Chronic problem. On statin therapy, no changes. Assessment & Plan (10/28/2021 1:21 PM CONFERENCE PLANNING MANAGER): Chronic problem. On statin therapy, no changes. [...] Pravachol Assessment & Plan (09/27/2019 9:29 AM CONFERENCE PLANNING MANAGER): LDL at goal. Trigs elevated. Continue statin [...] therapy Assessment & Plan (08/07/2018 1:59 PM CONFERENCE PLANNING MANAGER): At goal on current medications. Assessment & [...] dicussed Assessment & Plan (09/27/2019 9:29 AM CONFERENCE PLANNING MANAGER): Continues to do well with wt loss [...] adjusted. Assessment & Plan (08/07/2018 1:59 PM CONFERENCE PLANNING MANAGER): Continues to gain weight. Little attempt at diet and exercise. Reviewed importance of avoiding juice, soda, high fat, high carb foods. Assessment & Plan (10/05/2017 2:49 PM CONFERENCE PLANNING MANAGER): Diet and exercise were discussed. 1200 Calorie diet advised 45-60 min aerobic / resistance exercise most days of the week recommended. Bariatric surgery medically indicated Assessment & Plan (07/20/2017 4:17 PM CONFERENCE PLANNING MANAGER): Importance of following diet and exercising discussed. [...] changes. Assessment & Plan (10/28/2021 1:21 PM CONFERENCE PLANNING MANAGER): Controlled on current medications, no changes. Assessment [...] microalbumin Assessment & Plan (09/27/2019 9:29 AM CONFERENCE PLANNING MANAGER): Controlled on current medications. Continue plan. Assessment & Plan (06/06/2019 2:49 PM CDT): Controlled on current medications. Continue plan. Assessment & Plan (11/01/2018 2:04 PM CDT): Goal blood pressure is less than 140/85 Low salt diet recommended Daily aerobic exercise Continue current meds, including ALYCE-I or ARB Assessment & Plan (08/07/2018 2:00 PM CONFERENCE PLANNING MANAGER): Controlled on current medications. Assessment & Plan (04/17/2018 2:07 PM CDT): Goal blood pressure is less than 140/85 Low salt diet recommended Daily aerobic exercise Continue current meds, including ALYCE-I or ARB Assessment & Plan (10/05/2017 2:50 PM CONFERENCE PLANNING MANAGER): Goal blood pressure is less than 140/85 Low salt diet recommended Daily aerobic exercise Continue current meds, including ALYCE-I or ARB Assessment & Plan (07/20/2017 4:18 PM CONFERENCE PLANNING MANAGER): Controlled on current medications. Assessment & Plan (04/06/2017 4:28 PM CDT): At goal on current medications. Hyperlipidemia 09/19/2012 Overview (11/24/2016): HYPERLIPIDEMIA NEC/NOS Assessment & Plan (06/06/2019 2:49 PM CDT): Lipid panel ordered Assessment & Plan (07/20/2017 4:18 PM CONFERENCE PLANNING MANAGER): Will check lipid panel Assessment & Plan (04/06/2017 4:28 PM CDT): Check labs and focus on low fat foods Furuncle of trunk 06/28/2012 Overview (11/23/2016): Carbuncle and furuncle of trunk Type 2 diabetes mellitus 06/28/2012 Overview (11/24/2016): DMII WO CMP UNCNTRLD Assessment & Plan (08/07/2024 5:50 PM CONFERENCE PLANNING MANAGER): Chronic, stable Diet and exercise were emphasized Continue Farxiga and Ozempic Assessment & Plan (02/13/2024 4:29 PM CDT): Chronic, well-controlled. Continue Ozempic 2 mg weekly Farxiga 10 mg Importance of diet and exercise was discussed Assessment & Plan (08/10/2023 3:52 PM CONFERENCE PLANNING MANAGER): Chronic, well-controlled, with some postprandial hyperglycemia Continue [...] Farxita Assessment & Plan (07/19/2022 1:34 PM CONFERENCE PLANNING MANAGER): Hba1c was Lab Results Component Value Date [...] today. Assessment & Plan (10/28/2021 1:43 PM CONFERENCE PLANNING MANAGER): Chronic problem, not at goal. Increase NL [...] Novolog, 12 units with dinner only Continue Bob. Assessment & Plan (05/28/2020 4:24 PM CDT): [...] breakfast Assessment & Plan (09/27/2019 9:31 AM CONFERENCE PLANNING MANAGER): A1c increased to 7.8. Pattern acceptable during [...] goal hba1c is under 7.0 to prevent senior care diabetes complications ( eye , kidney and [...] discussed. Assessment & Plan (08/07/2018 2:02 PM CONFERENCE PLANNING MANAGER): A1c 8.1. Baseline BG reported at goal. [...] discussed. Assessment & Plan (10/05/2017 2:51 PM CONFERENCE PLANNING MANAGER): Hba1c was . 9.6 . today, indicating [...] discussed. Assessment & Plan (07/20/2017 4:17 PM CONFERENCE PLANNING MANAGER): A1c improved 8.7, ~ 2%. Mostly from [...] on file Legal Sex Female 10:22 AM CONFERENCE PLANNING MANAGER Gender Identity Not on file Sexual Orientation Straight 08/07/2024 2: 11 PM CONFERENCE PLANNING MANAGER Last Filed Vital Signs Vital Sign Reading Time Taken Comments Blood Pressure 100/68 08/07/2024 2:37 PM CONFERENCE PLANNING MANAGER Pulse 66 08/07/2024 2:37 PM CONFERENCE PLANNING MANAGER Temperature - - Respiratory Rate 17 08/07/2024 2:37 PM CONFERENCE PLANNING MANAGER Oxygen Saturation - - Inhaled Oxygen Concentration - - Weight 109 kg (240 lb 6.4 oz) 08/07/2024 2:37 PM CONFERENCE PLANNING MANAGER Height 170.2 cm (5' 7 ) 08/07/2024 2:37 PM CONFERENCE PLANNING MANAGER Body Mass Index 37.65 08/07/2024 2:37 PM CONFERENCE PLANNING MANAGER Plan of Treatment Not on file Procedures Procedure Name Priority Date/Time Associated Diagnosis Comments EGFR Routine 08/07/2024 3:23 PM CONFERENCE PLANNING MANAGER Type 2 diabetes mellitus with hyperglycemia, with long-term current use of insulin (HCC) POCT HEMOGLOBIN A1C Routine 08/07/2024 2 :38 PM CONFERENCE PLANNING MANAGER Type 2 diabetes mellitus with hyperglycemia, with long-term current use of insulin (HCC) HM DIABETES EYE EXAM Routine 10/11/2023 9:29 AM CONFERENCE PLANNING MANAGER ALBUMIN CREATININE RATIO, URINE Routine 08/28/2023 7:38 AM CONFERENCE PLANNING MANAGER LIPID PANEL Routine 08/10/2023 1:53 PM CONFERENCE PLANNING MANAGER Hyperlipidemia associated with type 2 diabetes mellitus (HCC) from Last 3 Months or Most Recently Relevant to Health Maintenance Results * (ABNORMAL) eGFR (08/07/2024 3:23 PM CONFERENCE PLANNING MANAGER) eGFR 35(L) >=60 mL/min/1. 73 m2 Comment: [...] last reviewed 2021. Blood 08/07/2024 3:23 PM CONFERENCE PLANNING MANAGER 08/07/2024 6:55 PM CONFERENCE PLANNING MANAGER Result [facility] us Anthony Castillo MD LAB BLOOD ORDERABLES Final Resul t [facility] [id number] Department [place] [address] * (ABNORMAL) POCT hemoglobin A1c (08/07/2024 2:38 PM CONFERENCE PLANNING MANAGER) Hemoglobin A1C, POC 7.1 4.0 - 5.6 % Comment:None Capillary blood 08/07/2024 2 :38 PM CONFERENCE PLANNING MANAGER Result [facility] Anthony Castillo MD POINT OF CARE TEST ORDERABLES Fi nal Result * (ABNORMAL) DIABETES EYE EXAM (10/11/2023 9:29 AM CONFERENCE PLANNING MANAGER) Result [facility] Isis Salgado MD HEALTH MAINTENANCE Final Result * (ABNORMAL) Albumin Creatinine Ratio, Urine (08/28/2023 7:38 AM CONFERENCE PLANNING MANAGER) SCRIBED Creatinine, Urine 75.44 40 - 278 EXTERNAL LAB SCRIBED Microalbumin 13.4(A) 0.0 - 11.9 EXTERNAL LAB SCRIBED Microalb/Creat Ratio 0.18 0 - 0.20 EXTERNAL LAB Urine 08/28/2023 7:38 AM CONFERENCE PLANNING MANAGER Result [facility] Isis Salgado MD LAB URINE ORDERABLES Edit ed Result - Final EXTERNAL LAB * (ABNORMAL) Lipid panel (08/10/2023 1:53 PM CONFERENCE PLANNING MANAGER) Cholesterol 164 30 - 199 mg/dL OL[facility] HRONER Comment: Interpretive Data Ages < or = [...] on 2018. Triglycerides 158(H) <=149 mg/dL OL[facility] Comment: Interpretive Data Ages < or = [...] on 2018. HDL 53 >=40 mg/dL [facility] Comment: Interpretive Data Ages < or = [...] 2018. LDL, calculated 79 <=129 mg/dL [facility] Comment: Interpretive Data Ages < or = [...] 3 [facility] HORNER Blood 08/10/2023 1:53 PM CONFERENCE PLANNING MANAGER 08/10/2023 7:31 PM CONFERENCE PLANNING MANAGER us Anthony Castillo MD LAB BLOOD ORDERABLES Final Resul t [facility] [place] [id number] Department [place] [address] from Last 3 Months or Most Recently Relevant to Health Maintenance Insurance IDPA [facility] MEDICARE ADVANTAGE [facility] MEDICARE ADVANTAGE IDPA Care Teams Inside Sales Associate Relationship Specialty Start Date End Date Willian Mendoza MD PCP - General 02/18/16
--- OUTSIDE RECORDS SUMMARY | 2024-11-16 14:42 | XMS_ITS | Data Portability ---
Author Organization [facility] Address [address] [place] [address] Care Team Providers Care Para Educator Name Role Phone ELKE JACOBO Primary Care Provider Assessment Encounter Date Assessment Date Assessment LastModified [...] scula r No observ ation record ed. [facility]) [address] [place], [address], 04/10/2022 00:58:08 Result Notes None recorded. Problems Name Problem SNOMED Code Status Onset Date Resolution Date Notes Provider Name and Address Organization Details Recorded Time SNOMED CT Concept Completed 201503/22/2022 Encntr for general adult medical exam w/o abnormal findings; Recorded Elsewhere : No Locati on: [facility] So urce: EHR Chron ic: N Practic e ID: 0001 Bill able Time: 03:30:00 PM Cecilia Rangel [facility] 2 16:06:09 Menopaus e present [id number] Completed 201503/22/2022 Menopausa l and female climacter ic states;Re corded Elsewhere : No Locati on: [facility] So urce: EHR Chron ic: N Practic e ID: 0001 Bill able Time: 01:00:00 PM Cecilia Rangel [facility] 2 16:06:09 Screenin g for malignan t neoplasm of rectum Completed 201503/22/2022 Encounter for screening for malignant neoplasm of rectum;Re corded Elsewhere : No Locati on: [facility] So urce: EHR Chron ic: N Practic e ID: 0001 Bill able Time: 03:30:00 PM Cecilia [facility] 2 16:06:[address] Concept Completed 201503/22/2022 Encntr for global vp creative + content marketing exam (general) (routine) w/o abn findings; Recorded Elsewhere : No Locati on: [facility] So urce: EHR Chron ic: N Practic e ID: 0001 Bill able Time: 03:30:00 PM Cecilia Rangel [facility] 2 16:06:09 Screenin g for malignan t neoplasm of cervix Completed 201503/22/2022 Encounter for screening for malignant neoplasm of cervix;Re corded Elsewhere : No Locati on: [facility] So urce: EHR Chron ic: N Practic e ID: 0001 Bill able Time: 03:30:00 PM Cecilia [facility] 2 16:06:09 Congenit al malforma tion [id number] Completed 201503/22/2022 Congenita l anomaly;R ecorded Elsewhere : No Locati on: [facility] So urce: EHR Chron ic: N Practic e ID: 0001 Bill able Time: 03:30:00 PM Cecilia Rangel null, [facility] 16:06:09 Problem Notes None recorded. Procedures Surgical History Date Name Laterality Status Provider Name and Address Organization Details Recorded Time 08/21/19 19 laparoscopic sleeve gastrectomy completed [facility] 03/23/2022 15:05:08 08/21/19 17 operation on mandible completed [facility] 03/23/2022 15:04:14 insertion of ureteral stent with ureterotomy completed [facility] 03/23/2022 15:03:53 Unlisted px femur/knee completed [facility] 03/23/2022 15:04:37 perinasal sinusotomy completed [facility] 03/23/2022 15:04:43 Carpal tunnel surgery completed [facility] 03/23/2022 15:04:53 Imaging Results Imaging Date Name Status LastModified by Organiz ation Details LastModified Time 03/31/2022 US, lower extremity, nonvascular completed [address], [address], 04/10/2022 00:58:08 Procedure Notes None recorded. Medical [...] Elsewher e: No Locat ion: Vik martin [facility] Isidro odify By: hiral carbone DateTime : 04/05/20 16 12:01:40 PM Not Available Not Available Not Available Neurontin 300 mg capsule take 1 capsule by oral route 3 times every day 04/28 completed Prescrib ed Elsewher e: No Locat ion: Vik martin [facility] odify By: wendy carbone DateTime : 03/08/20 16 09:00:54 AM Not Available Not Available Not Available verapamil 40 mg tablet take 1 tablet by oral route 3 times every day 03/23 completed Prescrib ed Elsewher e: Yes Loca tion: Vik martin [facility] odify By: [email or web address] trick En counter [...] Elsewher e: Yes Loca tion: Vik martin [facility] odify By: kmkirkpa trick En counter DateTime : 01/27/20 16 01:00:00 PM Not Available Not Available Not Available propranol ol 60 mg tablet take 1 tablet by oral route 2 times every day 03/23 completed Prescrib ed Elsewher e: Yes [facility] By: [email or web address] trick En counter DateTime : 01/27/20 16 01:00:00 PM Not Available Not Available Not Available allopurin ol 100 mg tablet take 1 tablet by oral route 3 times every day active Not Available Not Available No t Available spironola ctone 25 mg tablet take 1 tablet by oral route every day 03/23 completed Prescrib ed Elsewher e: Yes [facility] od[facility] By: [email or web address] trick En counter DateTime : 01/27/20 16 01:00:00 PM Not Available Not Available Not Available glimepiri de 1 mg tablet take 1 tablet by oral route every day 03/23 completed Prescrib ed Elsewher e: Yes Loca tion: Vik martin [facility] odify By: wendy guevarauntean DateTime : 04/28/20 16 03:30:00 PM Not Available Not Available Not Available levothyro xine 100 mcg tablet active Not Available Not Available Not Available ropinirol e 0.25 mg tablet take 1 tablet by oral route every day q 4-6hrs prn 03/23 completed Prescrib ed Elsewher e: Yes Loca tion: Vik martin [facility] odify By: wendy guevaraunter DateTime : 04/28/20 16 03:30:00 PM Not Available Not Available Not Available Humalog U-100 Insulin 100 unit/mL subcutane ous solution inject by subcutan eous route per prescrib er's instruct ions. Insulin dosing requires individu alizazacheryo n. 03/23 completed Prescrib ed Elsewher e: Yes Loca tion: Vik martin [facility] odify By: wendy guevarauntean DateTime : [...] Elsewher e: No Locat ion: Vik martin [facility] odify By: wendy guevarauntean DateTime : 01/27/20 16 01:00:00 PM Not Available Not Available Not Available ranitidin e 300 mg capsule take 1 capsule by oral route every day at bedtime 03/23 completed Prescrib ed Elsewher e: Yes Loca tion: Vik martin [facility] odify By: [email or web address] trick En counter DateTime : 01/27/20 16 01:00:00 PM Not Available Not Available Not Available pravastat in 20 mg tablet take 2 tablet by oral route every day active Not Available Not Available No t Available Estrace 0.5 mg tablet take 1 tablet by oral route every day 06/01 completed Prescrib ed Elsewher e: No Locat ion: Vik martin [facility] odify By: amkuhdot Martin ncounter DateTime : 03/31/20 16 04:45:00 PM Not Available Not Available Not Available cefdinir 300 mg capsule 03/23 completed Not Available Not Available Not Available losartan 100 mg tablet take 1 tablet by oral route every day 03/23 completed Prescrib ed Elsewher e: Yes Loca tion: Vik mratin [facility] odify By: [email or web address] trick En counter DateTime : 01/27/20 16 01:00:00 PM Not Available Not Available Not Available fluticaso ne propionat e 50 mcg/actua tion nasal spray,karen pension active Not Available Not Available Not Available nortripty line 50 mg capsule take 1 capsule by oral route 2 times every day 2015 active Prescrib ed Elsewher e: Yes Loca tion: Vik martin [facility] odify By: [email or web address] trick En counter DateTime : 01/27/20 16 01:00:00 PM Not Available Not Available Not Available Estrace 1 mg tablet take 1 tablet by oral route every day 2015 active Prescrib ed Elsewher e: No Locat ion: Vik martin [facility] odify By: tgingric h Becki ter DateTime : 04/28/20 16 03:30:00 PM Not Available Not Available Not Available progester one micronize d 100 mg capsule take 1 capsule by oral route every day for 10 days in the evening 05/07 completed Prescrib ed Elsewher e: Yes Loca tion: Vik martin [facility] odify By: [email or web address] Martin ncounter DateTime : 04/28/20 16 03:30:00 PM Not Available Not Available Not Available amoxicill in 875 mg-potass ium clavulana te 125 mg tablet 03/23 completed Not Available Not Available Not Available iron 18 mg tablet 2015 active Prescrib ed Elsewher e: Yes Loca tion: iVk martin [facility] odify By: kmkirkpa trick En counter DateTime : 01/27/20 16 01:00:00 PM Not Available Not Available Not Available magnesium 200 mg tablet 2015 active Prescrib ed Elsewher e: Yes Loca tion: Vik martin [facility] odify By: kmkirkpa trick En counter DateTime : 01/27/20 16 01:00:00 PM Not Available Not Available Not Available Vitamin D3 25 mcg (1,000 unit) tablet take 1 by Oral route once for 2 months then draw labs 2015 active Prescrib ed Elsewher e: Yes Loca tion: Robe mario [facility] odify By: kmkirkpa trick En counter DateTime : 01/27/20 16 01:00:00 PM Not Available Not Available Not Available nitrofura ntoin monohydra te/macroc rystals 100 mg capsule active Not Available Not Available Not Available duloxetin e 20 mg capsule,d elayed release active Not Available Not Available Not Available Cinnamon 500 mg capsule 2015 active Prescrib ed Elsewher e: Yes Loca tion: Vik martin [facility] odify By: kmkirkpa trick En counter DateTime : 01/27/20 16 01:00:00 PM Not Available Not Available Not Available Lantus Solostar U-100 Insulin 100 unit/mL (3 mL) subcutane ous pen active Not Available Not Available Not Available Tirosint 75 mcg capsule take 1 capsule by oral route every day 04/28 completed Prescrib ed Elsewher e: Yes Loca tion: [facility] odify By: wendy carbone DateTime : 01/27/20 16 01:00:00 PM Not Available Not Available Not Available Bydureon 2 mg subcutane ous extended release suspensio n inject by subcutan eous route every 7 days once 03/23 completed Prescrib ed Elsewher e: Yes Loca tion: [facility] odify By: kmkirkpa trick En counter [...] Updated DateTime 03/23/2022 168.91 cm 49.1 kg/m2 982279.0 4 g 136 mm[Hg] 80 mm[Hg] Cecilia Rangel [facility] 14:58:40 Social History Question Answer Notes LastModified by Organizat ion Details LastModified Time Tobacco Smoking Status Never Smoker Cecilia [facility] 03/23/2022 15:03:27 What Is Your [...] Anxious, Or Unable To Sleep At Night)? [id number] Information not available 03/23/2022 Do You Use [...] SNOMED-CT Code Diagnosis ICD10 Code Diagnosis Note [id number] Kim Tovar , [facility] [address] [address] 03/23/2022 14:11:49 03/24/2022 16:35:54 Gynecologic examination [id number] Z01.419 Take Calcium with Vitamin D 12-1500mg daily. Do monthly self breast exams. It is advised to get annual flu shot in the fall and she could obtain at [facility] or [facility]. If you haven't received the Tdap vaccine [...] Labs UTD PCPMammo UTD PCP Inguinal pain [id number] R10.2 Left sided groin pain.Exam difficult due [...] Arias Member ID Guarantor Name 03/23/2022 1 [facility] Keri Stone [id number] Keri Stone 03/23/2022 2 [place] Keri Stone [id number] Keri Stone Notes Date Note Type Note Provider Name and Address Organization Details Recorded Time 03/23/2022 text/html Annual Geological Sample Tester Post-MenopausalRe ported bypatient.Menopau olvin Symptoms:no menopausal symptoms; [...] activity. Kim Tovar, ESTELLA- [address], [place], [address], [place] - [facility] 03/24/2022 16:16:15 OBGyn Episode No OBEpisode recorded.
--- OUTSIDE RECORDS SUMMARY | 2024-11-16 14:42 | XMS_ITS ---
Author Organization [facility] Address [address] [place], [place] [id number] Care Team Providers Care Cement Sack Breaker Name Role Phone MIRIAN MOSHER Unavailable [phone] Virgilio Meehan Unavailable Unavailable ADRIEN CONTRERAS Unavailable [phone] REASON FOR VISIT *General care Medications Medication SIG (Take, Route, Frequency, Duration) Notes Start Date End Date Status verapamil hydrochloride 40 MG Oral Tablet ORAL verapamil hydrochloride 40 M G Oral TabletOriginal Medicationverapamil hydrochloride 40 MG Oral Tablet *Reorder from [facility] for eRx and Interaction Alerts* 04/07/20 14 Active propranolol hydrochloride 40 MG Oral Tablet ORAL propranolol hydrochloride 40 MG Oral TabletOriginal Medicationpropranolol hydrochloride 40 MG Oral Tablet *Reorder from [facility] for eRx and Interaction Alerts* 04/07/20 14 Active nortriptyline 50 MG Oral Capsule ORAL nortriptyline 50 MG Oral CapsuleOriginal Medicationnortriptyline 50 MG Oral Capsule *Reorder from [facility] for eRx and Interaction Alerts* 04/07/20 14 Active levothyroxine sodium 0.1 MG Oral Capsule ORAL levothyroxine sodium 0.1 MG Oral CapsuleOriginal Medicationlevothyroxine sodium 0.1 MG Oral Capsule *Reorder from [facility] for eRx and Interaction Alerts* 04/07/20 14 Active esomeprazole 20 MG Injection INTRAVENOUS esomeprazole 20 MG InjectionOriginal Medicationesomeprazole 20 MG Injection *Reorder from [facility] for eRx and Interaction Alerts* 04/07/20 14 Active ciclopirox 80 MG/ML Topical Solution CUTANEOUS ciclopirox 80 MG/ML Topical SolutionOriginal Medicationciclopirox 80 MG/ML Topical Solution *Reorder from [facility] for eRx and Interaction Alerts* 04/20/20 12 Active cholecalciferol 0.025 MG Oral Capsule ORAL cholecalciferol 0.025 MG Ora l CapsuleOriginal Medicationcholecalciferol 0.025 MG Oral Capsule *Reorder from [facility] for eRx and Interaction Alerts* 04/07/20 14 Active 3 ML insulin glargine 100 UNT/ML Pen Injector [Lantus] 3 ML insulin glargine 100 UNT/ML Pen Injector [Lantus]Original Medication3 ML insulin glargine 100 UNT/ML Pen Injector [Lantus] *Reorder from [facility] for eRx and Interaction Alerts* 04/07/20 14 Active Losartan Potassium 100 MG Oral Tablet ORAL losartan potassium 100 MG Oral TabletOriginal Medicationlosartan potassium 100 MG Oral Tablet *Reorder from [facility] for eRx and Interaction Alerts* 04/07/20 14 Active cinnamon bark 500 MG Oral Capsule ORAL cinnamon bark 500 MG Oral CapsuleOriginal Medicationcinnamon bark 500 MG Oral Capsule *Reorder from [facility] for eRx and Interaction Alerts* 04/07/20 14 Active Pravastatin Sodium 10 MG Oral Tablet ORAL pravastatin sodium 10 MG Ora l TabletOriginal Medicationpravastatin sodium 10 MG Oral Tablet *Reorder from [facility] for eRx and Interaction Alerts* 04/07/20 14 Active Nabumetone 500 MG Oral Tablet ORAL nabumetone 500 MG Oral TabletOriginal Medicationnabumetone 500 MG Oral Tablet *Reorder from [facility] for eRx and Interaction Alerts* 06/29/20 12 Active Spironolactone 25 MG Oral Tablet ORAL spironolactone 25 MG Oral TabletOriginal Medicationspironolactone 25 MG Oral Tablet *Reorder from [facility] for eRx and Interaction Alerts* 04/07/20 14 Active Allopurinol 300 MG Oral Tablet ORAL allopurinol 300 MG Oral TabletOriginal Medicationallopurinol 300 MG Oral Tablet *Reorder from [facility] for eRx and Interaction Alerts* 04/07/20 14 Active Encounters Encounter Location Date Provider Diagnosis [facility] [address] [id number] 04/11/2024 ADRIEN CONTRERAS Unspecified atherosclerosis of [place] arteries of extremities, bilateral legs I70.203 ; [...] Notes Section Notes 04/11/2024 Unspecified atherosclerosis of [place] arteries of extremities, bilateral legs (ICD-10 - [...] Treatment Notes Assessment Notes Unspecified atherosclerosis of [place] arteries of extremities, bilateral legs Patient educated [...] Reason: Provider Name:WILFREDO MARTIN, 12/12/2024 03:30:00 PM, [address] [place] [address], [phone], Progress Notes * MATEUSZ MONROE ADOB:[birth year] (58 yo F)Acc No.[id number]:04/11/2024 Patient: MATEUSZ ZHU A Provider: Bryon CONTRERAS :1965 A ge:58 Y S ex:Female Date:04/11/2024 Address:[address] [place] [address] Subjective: * Chief Complaints: * 1 . *General care. * HPI: H PI: General care P atient presents to the office for diabetic foot care. Patient states that their nails are thickened, elongated and painful. Patient states that it is aggravated by shoe gear. Onset is gradual., Patient denies taking blood thinners., Date last seen by Dr. Meehan was 01/2024., Initials [facility]. * ROS: G eneral / Constitutional: Patient denies w eakness. R espiratory: Patient denies c hronic cough, shortness of breath, sputum production. C ardiovascular: Patient denies c hest pain, history of GA, irregular heartbeat. M usculoskeletal: Patient complains of [...] Medicationallopurinol 300 MG Oral Tablet *Reorder from [facility] for eRx and Interaction Alerts*, Taking Spironolactone 25 MG Oral Tablet ORAL , Notes to Pharmacist: spironolactone 25 MG Oral TabletOriginal Medicationspironolactone 25 MG Oral Tablet *Reorder from [facility] for eRx and Interaction Alerts*, Taking Nabumetone 500 MG Oral Tablet ORAL , Notes to Pharmacist: nabumetone 500 MG Oral TabletOriginal Medicationnabumetone 500 MG Oral Tablet *Reorder from [facility] for eRx and Interaction Alerts*, Taking Pravastatin Sodium 10 MG Oral Tablet ORAL , Notes to Pharmacist: pravastatin sodium 10 MG Oral TabletOriginal Medicationpravastatin sodium 10 MG Oral Tablet *Reorder from [facility] for eRx and Interaction Alerts*, Taking Losartan Potassium 100 MG Oral Tablet ORAL , Notes to Pharmacist: losartan potassium 100 MG Oral TabletOriginal Medicationlosartan potassium 100 MG Oral Tablet *Reorder from [facility] for eRx and Interaction Alerts*, Taking 3 ML insulin glargine 100 UNT/ML Pen Injector [Lantus] , Notes to Pharmacist: 3 ML insulin glargine 100 UNT/ML Pen Injector [Lantus]Original Medication3 ML insulin glargine 100 UNT/ML Pen Injector [Lantus] *Reorder from [facility] for eRx and Interaction Alerts*, Taking cholecalciferol 0.025 MG Oral Capsule ORAL , Notes to Pharmacist: cholecalciferol 0.025 MG Oral CapsuleOriginal Medicationcholecalciferol 0.025 MG Oral Capsule *Reorder from [facility] for eRx and Interaction Alerts*, Taking ciclopirox 80 MG/ML Topical Solution CUTANEOUS , Notes to Pharmacist: ciclopirox 80 MG/ML Topical SolutionOriginal Medicationciclopirox 80 MG/ML Topical Solution *Reorder from [facility] for eRx and Interaction Alerts*, Taking cinnamon bark 500 MG Oral Capsule ORAL , Notes to Pharmacist: cinnamon bark 500 MG Oral CapsuleOriginal Medicationcinnamon bark 500 MG Oral Capsule *Reorder from [facility] for eRx and Interaction Alerts*, Taking esomeprazole 20 MG Injection INTRAVENOUS , Notes to Pharmacist: esomeprazole 20 MG InjectionOriginal Medicationesomeprazole 20 MG Injection *Reorder from [facility] for eRx and Interaction Alerts*, Taking levothyroxine sodium 0.1 MG Oral Capsule ORAL , Notes to Pharmacist: levothyroxine sodium 0.1 MG Oral CapsuleOriginal Medicationlevothyroxine sodium 0.1 MG Oral Capsule *Reorder from [facility] for eRx and Interaction Alerts*, Taking nortriptyline 50 MG Oral Capsule ORAL , Notes to Pharmacist: nortriptyline 50 MG Oral CapsuleOriginal Medicationnortriptyline 50 MG Oral Capsule *Reorder from [facility] for eRx and Interaction Alerts*, Taking propranolol hydrochloride 40 MG Oral Tablet ORAL , Notes to Pharmacist: propranolol hydrochloride 40 MG Oral TabletOriginal Medicationpropranolol hydrochloride 40 MG Oral Tablet *Reorder from [facility] for eRx and Interaction Alerts*, Taking verapamil hydrochloride 40 MG Oral Tablet ORAL , Notes to Pharmacist: verapamil hydrochloride 40 MG Oral TabletOriginal Medicationverapamil hydrochloride 40 MG Oral Tablet *Reorder from [facility] for eRx and Interaction Alerts* Objective: [...] (Primary) 2 . U nspecified atherosclerosis of [place] arteries of extremities, bilateral legs - I70.203 [...] * Treatment: 2. U nspecified atherosclerosis of [place] arteries of extremities, bilateral legs Notes: Patient [...] Months * Billing Information: * Visit Code: 49773 Office Visit, Est Pt., Level 3. * Procedure Codes: * Sign off status: Completed true * Provider: Bryon CONTRERAS Date: 0 04/11/2024 Generated for Curt small/Ana Maria/Jose on: 0 11/16/2024 02:42 PM CDT History and Physical Notes * [...]
--- OUTSIDE RECORDS SUMMARY | 2024-11-16 14:42 | XMS_ITS | Encounter Summary ---
Author Organization [facility] Address [facility] [place] [address] Care Team Providers Care Oncology Rep Specialist Name Role Phone Alexis Thurman MD Unavailable Unavailabl Cee Rodriguez APRN, TISSUE INSERTER-C Unavailable Virgilio Meehan DO Primary Care Provider [phone] Mame Osborn MD Unavailable [phone] Encounter Details Date Type Department Care Team (Late st Contact Info) Description 12/21/2022 Abstract [facility] [address] [place], [place] [id number] Naheed Arzola MD [address] [place] [address] [phone] (Work) Social History Tobacco Use Types [...] on filedocumented in this encounter Care Teams Oncology Rep Specialist Relationship Specialty Start Date End Date Virgilio Meehan DO [address] [place] [address] PCP - General FAMILY PRACTICE 09/08/22 Alexis Thurman MD [place] [employer] Settings Painter CARDIOVASCULAR DISEASE 09/14/18 04/01/24 Cee Liu, SKI GUIDE, TISSUE INSERTER-C [address] [facility] [address] [place] [address] NURSE PRACTITIONER 05/27/22 Mame Osborn MD [address] [place] [address] INTERVENTIONAL CARDIOLOGY 05/10/24 documented as of this encounter
--- OUTSIDE RECORDS SUMMARY | 2024-11-16 14:42 | XMS_ITS | Encounter Summary ---
Author Organization [facility] Address [facility] [place] [address] Care Team Providers Care Stick Feeder Name Role Phone Cee Liu APRN, BONBON CREAM WARMER-C Unavailable [phone] Virgilio Meehan DO Primary Care Provider [phone] Mame Osborn MD Unavailable [phone] Encounter Details Date Type Department Care Team (Late st Contact Info) Description 11/12/2024 Abstract [facility] [employer] [place] [address] Ella Witt MD [address] [place] [address] Social History Tobacco Use Types Packs/Day Years [...] on filedocumented in this encounter Care Teams Stick Feeder Relationship Specialty Start Date End Date Virgilio Meehan DO [address] [place] [address] PCP - General FAMILY PRACTICE 09/08/22 Cee Liu APRN, BON[employer]ON CREAM WARMER-C [address] [facility] [address] [place] [address] NURSE PRACTITIONER 05/27/22 Mame Osborn MD [address] [place] [address] INTERVENTIONAL CARDIOLOGY 05/10/24 documented as of this encounter
--- OUTSIDE RECORDS SUMMARY | 2024-11-16 14:42 | XMS_ITS ---
Author Organization [facility] Address [address] [place], [place] [address] Care Team Providers Care Manager Wellness Name Role Phone MIRIAN MOSHER Unavailable [phone] Virgilio Meehan Unavailable Unavailable ADRIEN CONTRERAS Unavailable [phone] REASON FOR VISIT *General care Encounters Encounter Location Date Provider Diagnosis [address] [id number] 08/08/2024 ADRIEN CONTRERAS Plan Of Treatment Next Appt Details Provider Name:WILFREDO MARTIN, 12/12/2024 03:30:00 PM, [address] [place] [address], [id number], Progress Notes * MATEUSZ MONROE ADOB:[birth year] (59 yo F)Acc No.[id number]:08/08/2024 Patient: MATEUSZ ZHU Provider: Bryon CONTRERAS :1965 A ge:58 Y S ex:Female Date:08/08/2024 Address:[address] [place], [place] [id number] Subjective: * Chief Complaints: * 1 . *General care. * Medical History: Objective: * Vitals: Assessment: Plan: * Treatment: * Billing Information: * Visit Code: * Procedure Codes: * Electronic signature of TIM CONTRERAS DPM on 11/16/2024 at 02:42 PM CDT Sign off status: Pending * Provider: Bryon CONTRERAS Date: 1 10/09/2023 Generated for Curt small/Ana Maria/Jose on: 0 11/16/2024 02:42 PM CDT
--- OUTSIDE RECORDS SUMMARY | 2024-11-16 14:42 | XMS_ITS | Continuity of Care Document ---
Author Organization [facility] Address [address] [facility] [address] [place] [address] Phone Care Team Providers Care Roller Turner Name Role Phone Nilson Vaughan Unavailable Unavailable [...] Diagnoses Date Provider Providers Copied on Encounter [facility], [address], [place], [place], [id number], [place] tel:[phone] [facility] No Information Clement Devine. [address] [place], [address], [place]. tel:[phone] Referring Provider: Nilson Stewart, [address] [place], [address]. tel:[phone] [facility], [address], [place], [place], [address], [place] tel:[phone] [facility] No Information Clement Devine. [address] [place], [address], [place]. tel:[phone] Referring Provider: Nilson Stewart, [address] [place], [address]. tel:[phone] [facility], [address], [place], [place], [address], [place] tel:[phone] [facility] No Information Clement Devine. [address] [place], [address], [place]. tel:[phone] Referring Provider: Nilson Stewart, [address] [place], [address]. tel:[phone] [facility], [address], [place], [place], [address], [place] tel:[phone] [facility] No Information Clement Devine. [address] [place], [address], [place]. [phone] Referring Provider: Nilson Stewart, [address] [place], [address]. tel:[phone] [facility], [address], [place], [place], [address], [place] tel:[phone] [facility] No Information Clement Devine. [address] [place], [address], [place]. tel:[phone] [facility], [address], [place], [place], [address], [place] tel:[phone] [facility] No Information Clement Devine. [address] [place], [address], [place]. tel:[phone] Referring Provider: Nilson Stewart, [address] [place], [address]. tel:[phone] Office/outpat ient Visit, [facility], [address], [place], [place], [address], [place] tel:[phone] [facility] No Information Clement Devine. [address] [place], [address], [place]. tel:[phone] Family History Family Member Type Diagnosis Age At Onset No Information Payers Payer name Insurance type Covered constitution party ID Authorshiloha tiisaiah(s) Medicaid [facility] [id number] Social History Type Description Quantity Date Captured [...]
--- OUTSIDE RECORDS SUMMARY | 2024-11-16 14:43 | XMS_ITS | Encounter Summary ---
Author Organization [facility] Address [facility] [place] [address] Care Team Providers Care Vascular Physician Name Role Phone Alexis Thurman MD Unavailable Unavailabl e Willian Mendoza MD Primary Care Provider [phone] Cee Liu APRN, OIL WELL DRILLING MANAGER-C Unavailable Virgilio Meehan DO Primary Care Provider [phone] Mame Osborn MD Unavailable [phone] Encounter Details Date Type Department Care Team (Late st Contact Info) Description 11/04/2017 Abstract [facility] CONVERSION [address] [place] [address] , Generic ConversionMD Social History Tobacco Use [...] on filedocumented in this encounter Care Teams Vascular Physician Relationship Specialty Start Date End Date Willian Mendoza MD [address] [place] [address] PCP - General INTERNAL MEDICINE 09/14/18 09/07/22 Virgilio Meehan DO [address] [place] [address] PCP - General FAMILY PRACTICE 09/08/22 Alexis Thurman MD [place] [employer] Law Clerk CARDIOVASCULAR DISEASE 09/14/18 04/01/24 Cee Liu APRN, OIL WELL DRILLING MANAGER-C [address] [facility] [address] [place] [address] NURSE PRACTITIONER 05/27/22 Mame Osborn MD [address] [place] [address] INTERVENTIONAL CARDIOLOGY 05/10/24 documented as of this encounter
--- OUTSIDE RECORDS SUMMARY | 2024-11-16 14:43 | XMS_ITS ---
Author Organization [facility] Address [address] [place], [place] [id number] Care Team Providers Care Dental Practitioner Name Role Phone MIRIAN MOSHER Unavailable [phone] Virgilio Meehan Unavailable Unavailable REASON FOR VISIT [...] Medicationnortriptyline 50 MG Oral Capsule *Reorder from [email or web address] for eRx and Interaction Alerts* 04/07/20 14 Active esomeprazole 20 MG Injection INTRAVENOUS esomeprazole 20 MG InjectionOriginal Medicationesomeprazole 20 MG Injection *Reorder from [email or web address] for eRx and Interaction Alerts* 04/07/20 14 Active levothyroxine sodium 0.1 MG Oral Capsule ORAL levothyroxine sodium 0.1 MG Oral CapsuleOriginal Medicationlevothyroxine sodium 0.1 MG Oral Capsule *Reorder from [email or web address] for eRx and Interaction Alerts* 04/07/20 14 Active propranolol hydrochloride 40 MG Oral Tablet ORAL propranolol hydrochloride 40 MG Oral TabletOriginal Medicationpropranolol hydrochloride 40 MG Oral Tablet *[email or web address] Interaction Alert[facility]* 04/07/20 14 Active verapamil hydrochloride 40 MG Oral Tablet ORAL verapamil hydrochloride 40 M G Oral TabletOriginal Medicationverapamil hydrochloride 40 MG Oral Tablet *[email or web address] and Interaction Alerts* 04/07/20 14 Active ciclopirox 80 MG/ML Topical Solution CUTANEOUS ciclopirox 80 MG/ML Topical SolutionOriginal Medicationciclopirox 80 MG/ML Topical Solution *Reorder from [employer] for eRx and Interaction Alerts* 04/20/20 12 Active cinnamon bark 500 MG Oral Capsule ORAL cinnamon bark 500 MG Oral CapsuleOriginal Medicationcinnamon bark 500 MG Oral Capsule *Reorder from [employer] for eRx and Interaction Alerts* 04/07/20 14 Active 3 ML insulin glargine 100 UNT/ML Pen Injector [Lantus] 3 ML insulin glargine 100 UNT/ML Pen Injector [Lantus]Original Medication3 ML insulin glargine 100 UNT/ML Pen Injector [Lantus] *Reorder from [employer] for eRx and Interaction Alerts* 04/07/20 14 Active cholecalciferol 0.025 MG Oral Capsule ORAL cholecalciferol 0.025 MG Ora l CapsuleOriginal Medicationcholecalciferol 0.025 MG Oral Capsule *Reorder from [employer] for eRx and Interaction Alerts* 04/07/20 14 Active Losartan Potassium 100 MG Oral Tablet ORAL losartan potassium 100 MG Oral TabletOriginal Medicationlosartan potassium 100 MG Oral Tablet *Reorder from [employer] for eRx and Interaction Alerts* 04/07/20 14 Active Allopurinol 300 MG Oral Tablet ORAL allopurinol 300 MG Oral TabletOriginal Medicationallopurinol 300 MG Oral Tablet *Reorder from [employer] for eRx and Interaction Alerts* 04/07/20 14 Active Pravastatin Sodium 10 MG Oral Tablet ORAL pravastatin sodium 10 MG Ora l TabletOriginal Medicationpravastatin sodium 10 MG Oral Tablet *Reorder from [employer] for eRx and Interaction Alerts* 04/07/20 14 Active Spironolactone 25 MG Oral Tablet ORAL spironolactone 25 MG Oral TabletOriginal Medicationspironolactone 25 MG Oral Tablet *Reorder from [employer] for eRx and Interaction Alerts* 04/07/20 14 Active Nabumetone 500 MG Oral Tablet ORAL nabumetone 500 MG Oral TabletOriginal Medicationnabumetone 500 MG Oral Tablet *Reorder from [employer] for eRx and Interaction Alerts* 06/29/20 12 Active Encounters Encounter Location Date Provider Diagnosis [facility] [address] [place], [place] [id number] 10/10/2024 MIRIAN MOSHER Tinea unguium B35.1 ; Acquired 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 ; Atherosclerosis of [place] arteries of extremities with intermittent claudication, bilateral [...] utilizing a #15 blade 10/10/2024 Atherosclerosis of [place] arteries of extremities with intermittent claudication, bilateral [...] develop. Provider Name:WILFREDO MARTIN, 12/12/2024 03:30:00 PM, [address] [place] [address], [id number], Progress Notes * MATEUSZ MONROE ADOB:[birth year] (59 yo F)Acc No.[id number]:10/10/2024 Patient: MATEUSZ ZHU Provider: Roosevelt Mosher DPM :1965 A ge:58 Y S ex:Female Date:10/10/2024 Address:[address] [place] [address] Subjective: * Chief Complaints: * Jerrica chung [...] Medicationallopurinol 300 MG Oral Tablet *Reorder from [employer] for eRx and Interaction Alerts*Spironolactone 25 MG Oral Tablet ORAL , Notes to Pharmacist: spironolactone 25 MG Oral TabletOriginal Medicationspironolactone 25 MG Oral Tablet *Reorder from [employer] for eRx and Interaction Alerts*Nabumetone 500 MG Oral Tablet ORAL , Notes to Pharmacist: nabumetone 500 MG Oral TabletOriginal Medicationnabumetone 500 MG Oral Tablet *[facility]*Pravastatin Sodium 10 MG Oral Tablet ORAL , Notes to Pharmacist: pravastatin sodium 10 MG Oral TabletOriginal Medicationpravastatin sodium 10 MG Oral Tablet *Reorder from [facility] for eRx and Interaction Alerts*Losartan Potassium 100 MG Oral Tablet ORAL , Notes to Pharmacist: losartan potassium 100 MG Oral TabletOriginal Medicationlosartan potassium 100 MG Oral Tablet *Reorder from [facility] for eRx and Interaction Alerts*3 ML insulin glargine 100 UNT/ML Pen Injector [Lantus] , Notes to Pharmacist: 3 ML insulin glargine 100 UNT/ML Pen Injector [Lantus]Original Medication3 ML insulin glargine 100 UNT/ML Pen Injector [Lantus] *Reorder from [facility] for eRx and Interaction Alerts*cholecalciferol 0.025 MG Oral Capsule ORAL , Notes to Pharmacist: cholecalciferol 0.025 MG Oral CapsuleOriginal Medicationcholecalciferol 0.025 MG Oral Capsule *Reorder from [facility] for eRx and Interaction Alerts*ciclopirox 80 MG/ML Topical Solution CUTANEOUS , Notes to Pharmacist: ciclopirox 80 MG/ML Topical SolutionOriginal Medicationciclopirox 80 MG/ML Topical Solution *Reorder from [facility] for eRx and Interaction Alerts*cinnamon bark 500 MG Oral Capsule ORAL , Notes to Pharmacist: cinnamon bark 500 MG Oral CapsuleOriginal Medicationcinnamon bark 500 MG Oral Capsule *Reorder from [facility] for eRx and Interaction Alerts*esomeprazole 20 MG Injection INTRAVENOUS , Notes to Pharmacist: esomeprazole 20 MG InjectionOriginal Medicationesomeprazole 20 MG Injection *Reorder from [facility] for eRx and Interaction Alerts*levothyroxine sodium 0.1 MG Oral Capsule ORAL , Notes to Pharmacist: levothyroxine sodium 0.1 MG Oral CapsuleOriginal Medicationlevothyroxine sodium 0.1 MG Oral Capsule *Reorder from [facility] for eRx and Interaction Alerts*nortriptyline 50 MG Oral Capsule ORAL , Notes to Pharmacist: nortriptyline 50 MG Oral CapsuleOriginal Medicationnortriptyline 50 MG Oral Capsule *Reorder from [facility] for eRx and Interaction Alerts*propranolol hydrochloride 40 MG Oral Tablet ORAL , Notes to Pharmacist: propranolol hydrochloride 40 MG Oral TabletOriginal Medicationpropranolol hydrochloride 40 MG Oral Tablet *Reorder from [facility] for eRx and Interaction Alerts*verapamil hydrochloride 40 MG Oral Tablet ORAL , Notes to Pharmacist: verapamil hydrochloride 40 MG Oral TabletOriginal Medicationverapamil hydrochloride 40 MG Oral Tablet *Reorder from [facility] for eRx and Interaction Alerts*Medication List reviewed and reconciled with the patientTaking Allopurinol 300 MG Oral Tablet ORAL , Notes to Pharmacist: allopurinol 300 MG Oral TabletOriginal Medicationallopurinol 300 MG Oral Tablet *Reorder from [facility] for eRx and Interaction Alerts*Taking Spironolactone 25 MG Oral Tablet ORAL , Notes to Pharmacist: spironolactone 25 MG Oral TabletOriginal Medicationspironolactone 25 MG Oral Tablet *Reorder from [facility] for eRx and Interaction Alerts*Taking Nabumetone 500 MG Oral Tablet ORAL , Notes to Pharmacist: nabumetone 500 MG Oral TabletOriginal Medicationnabumetone 500 MG Oral Tablet *Reorder from [facility] for eRx and Interaction Alerts*Taking Pravastatin Sodium 10 MG Oral Tablet ORAL , Notes to Pharmacist: pravastatin sodium 10 MG Oral TabletOriginal Medicationpravastatin sodium 10 MG Oral Tablet *Reorder from [facility] for eRx and Interaction Alerts*Taking Losartan Potassium 100 MG Oral Tablet ORAL , Notes to Pharmacist: losartan potassium 100 MG Oral TabletOriginal Medicationlosartan potassium 100 MG Oral Tablet *Reorder from [facility] for eRx and Interaction Alerts*Taking 3 ML insulin glargine 100 UNT/ML Pen Injector [Lantus] , Notes to Pharmacist: 3 ML insulin glargine 100 UNT/ML Pen Injector [Lantus]Original Medication3 ML insulin glargine 100 UNT/ML Pen Injector [Lantus] *Reorder from [facility] for eRx and Interaction Alerts*Taking cholecalciferol 0.025 MG Oral Capsule ORAL , Notes to Pharmacist: cholecalciferol 0.025 MG Oral CapsuleOriginal Medicationcholecalciferol 0.025 MG Oral Capsule *Reorder from [facility] for eRx and Interaction Alerts*Taking ciclopirox 80 MG/ML Topical Solution CUTANEOUS , Notes to Pharmacist: ciclopirox 80 MG/ML Topical SolutionOriginal Medicationciclopirox 80 MG/ML Topical Solution *Reorder from [facility] for eRx and Interaction Alerts*Taking cinnamon bark 500 MG Oral Capsule ORAL , Notes to Pharmacist: cinnamon bark 500 MG Oral CapsuleOriginal Medicationcinnamon bark 500 MG Oral Capsule *Reorder from [facility] for eRx and Interaction Alerts*Taking esomeprazole 20 MG Injection INTRAVENOUS , Notes to Pharmacist: esomeprazole 20 MG InjectionOriginal Medicationesomeprazole 20 MG Injection *Reorder from [facility] for eRx and Interaction Alerts*Taking levothyroxine sodium 0.1 MG Oral Capsule ORAL , Notes to Pharmacist: levothyroxine sodium 0.1 MG Oral CapsuleOriginal Medicationlevothyroxine sodium 0.1 MG Oral Capsule *Reorder from [facility] for eRx and Interaction Alerts*Taking nortriptyline 50 MG Oral Capsule ORAL , Notes to Pharmacist: nortriptyline 50 MG Oral CapsuleOriginal Medicationnortriptyline 50 MG Oral Capsule *Reorder from [facility] for eRx and Interaction Alerts*Taking propranolol hydrochloride 40 MG Oral Tablet ORAL , Notes to Pharmacist: propranolol hydrochloride 40 MG Oral TabletOriginal Medicationpropranolol hydrochloride 40 MG Oral Tablet *Reorder from [facility] for eRx and Interaction Alerts*Taking verapamil hydrochloride 40 MG Oral Tablet ORAL , Notes to Pharmacist: verapamil hydrochloride 40 MG Oral TabletOriginal Medicationverapamil hydrochloride 40 MG Oral Tablet *Reorder from [facility] for eRx and Interaction Alerts*Medication List reviewed [...] - L85.1 3 . A therosclerosis of [place] arteries of extremities with intermittent claudication, bilateral [...] develop.) * Billing Information: * Visit Code: 80471 Office Visit, Est Pt., Level 3. * [...]
--- OUTSIDE RECORDS SUMMARY | 2024-11-16 14:43 | XMS_ITS | Patient Health Record ---
Author Organization [facility] Address [address] [place], [place] [address] Care Team Providers Care Beef Farmer Name Role Phone MIRIAN MOSHER Unavailable [phone] Virgilio Meehan Unavailable Unavailable ADRIEN CONTRERAS Unavailable [phone] Allergies No Known Allergies Reason For Referral No Information Medications Medication SIG (Take, Route, Frequency, Duration) Notes Start Date End Date Status nortriptyline 50 MG Oral Capsule ORAL nortriptyline 50 MG Oral CapsuleOriginal Medicationnortriptyline 50 MG Oral Capsule *Reorder from [employer] for eRx and Interaction Alerts* 04/07/20 14 Active Allopurinol 300 MG Oral Tablet ORAL allopurinol 300 MG Oral TabletOriginal Medicationallopurinol 300 MG Oral Tablet *Reorder from [employer] for eRx and Interaction Alerts* 04/07/20 14 Active esomeprazole 20 MG Injection INTRAVENOUS esomeprazole 20 MG InjectionOriginal Medicationesomeprazole 20 MG Injection *Reorder from [employer] for eRx and Interaction Alerts* 04/07/20 14 Active levothyroxine sodium 0.1 MG Oral Capsule ORAL levothyroxine sodium 0.1 MG Oral CapsuleOriginal Medicationlevothyroxine sodium 0.1 MG Oral Capsule *Reorder from [employer] for eRx and Interaction Alerts* 04/07/20 14 Active ciclopirox 80 MG/ML Topical Solution CUTANEOUS ciclopirox 80 MG/ML Topical SolutionOriginal Medicationciclopirox 80 MG/ML Topical Solution *Reorder from [employer] for eRx and Interaction Alerts* 04/20/20 12 Active cinnamon bark 500 MG Oral Capsule ORAL cinnamon bark 500 MG Oral CapsuleOriginal Medicationcinnamon bark 500 MG Oral Capsule *Reorder from [employer] for eRx and Interaction Alerts* 04/07/20 14 Active 3 ML insulin glargine 100 UNT/ML Pen Injector [Lantus] 3 ML insulin glargine 100 UNT/ML Pen Injector [Lantus]Original Medication3 ML insulin glargine 100 UNT/ML Pen Injector [Lantus] *[facility] and Interaction Alert[facility]* 04/07/20 14 Active cholecalciferol 0.025 MG Oral Capsule ORAL cholecalciferol 0.025 MG Ora l CapsuleOriginal Medicationcholecalciferol 0.025 MG Oral Capsule *Reorder from [employer] for eRx and Interaction Alerts* 04/07/20 14 Active Pravastatin Sodium 10 MG Oral Tablet ORAL pravastatin sodium 10 MG Ora l TabletOriginal Medicationpravastatin sodium 10 MG Oral Tablet *Reorder from [employer] for eRx and Interaction Alerts* 04/07/20 14 Active Losartan Potassium 100 MG Oral Tablet ORAL losartan potassium 100 MG Oral TabletOriginal Medicationlosartan potassium 100 MG Oral Tablet *Reorder from [employer] for eRx and Interaction Alerts* 04/07/20 14 Active Spironolactone 25 MG Oral Tablet ORAL spironolactone 25 MG Oral TabletOriginal Medicationspironolactone 25 MG Oral Tablet *Reorder from [employer] for eRx and Interaction Alerts* 04/07/20 14 Active propranolol hydrochloride 40 MG Oral Tablet ORAL propranolol hydrochloride 40 MG Oral TabletOriginal Medicationpropranolol hydrochloride 40 MG Oral Tablet *Reorder from [employer] for eRx and Interaction Alerts* 04/07/20 14 Active Nabumetone 500 MG Oral Tablet ORAL nabumetone 500 MG Oral TabletOriginal Medicationnabumetone 500 MG Oral Tablet *Reorder from [employer] for eRx and Interaction Alerts* 06/29/20 12 Active verapamil hydrochloride 40 MG Oral Tablet ORAL verapamil hydrochloride 40 M G Oral TabletOriginal Medicationverapamil hydrochloride 40 MG Oral Tablet *Reorder from [employer] for eRx and Interaction Alerts* 04/07/20 14 Active Immunizations Vaccine Route Administration Date Status Comme nts Influenza, unspecified formulation Unknown 06/30/2023 A dministered Vital Signs Height-cm 170.18 cm 02/08/2024 Weight-kg 113.85 kg 02/08/2024 Height 67.00 in 02/08/2024 Weight 251 lbs 02/08/2024 BMI 39.31 kg/m2 02/08/2024 Encounters Encounter Location Date Provider Diagnosis [address] [id number] 12/07/2023 ADRIEN CONTRERAS Unspecified atherosclerosis of [place] arteries of extremities, bilateral legs I70.203 ; Tinea unguium B35.1 ; Pain in left toe(s) M79.675 ; Other hammer toe(s) (acquired), right foot M20.41 ; Other hammer toe(s) (acquired), left foot M20.42 and Pain in right toe(s) M79.[address] [id number] 02/08/2024 ADRIEN CONTRERAS Unspecified atherosclerosis of [place] arteries of extremities, bilateral legs I70.203 ; Tinea unguium B35.1 ; Pain in left toe(s) M79.675 ; Other hammer toe(s) (acquired), right foot M20.41 ; Other hammer toe(s) (acquired), left foot M20.42 and Pain in right toe(s) M79.[address] [id number] 04/11/2024 ADRIEN CONTRERAS Unspecified atherosclerosis of [place] arteries of extremities, bilateral legs I70.203 ; Tinea unguium B35.1 ; Pain in left toe(s) M79.675 ; Other hammer toe(s) (acquired), right foot M20.41 ; Other hammer toe(s) (acquired), left foot M20.42 ; Pain in right toe(s) M79.674 and Acquired 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 [id number] 10/10/2024 MIRIAN MOSHER Tinea unguium B35.1 ; Acquired 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 ; Atherosclerosis of [place] arteries of extremities with intermittent claudication, bilateral [...] and prescription treatments. 12/07/2023 Unspecified atherosclerosis of [place] arteries of extremities, bilateral legs (ICD-10 - [...] and prescription treatments. 02/08/2024 Unspecified atherosclerosis of [place] arteries of extremities, bilateral legs (ICD-10 - [...] and prescription treatments. 04/11/2024 Unspecified atherosclerosis of [place] arteries of extremities, bilateral legs (ICD-10 - [...] utilizing a #15 blade 10/10/2024 Atherosclerosis of [place] arteries of extremities with intermittent claudication, bilateral [...] Details Provider Name:WILFREDO MARTIN, 12/12/2024 03:30:00 PM, [address] [place] [address], [phone], Insurance Providers Payer Name Payer Address Payer Phone Subscriber Number Group Number Insured Name Patient Relationship to Insured Coverage Start Date Coverage End Date [facility] [address] [address] [place] [id number] MATEUSZ MONROE Self - patient is the insured
--- OUTSIDE RECORDS SUMMARY | 2024-11-16 14:43 | XMS_ITS | Clinical Summary ---
Author Organization [facility] Address [facility] [place] [address] Care Team Providers Care Open Source Developer Name Role Phone Cee Liu APRN NEWSAGENT-C Unavailable Virgilio Meehan DO Primary Care Provider [phone] Mame Osborn MD Unavailable Allergies Active Allergy Reactions Criticality Noted Date Comments Amoxicillin-Pot Clavulanate Diarrhea 05/27/2022 Metformin Other (see comment) 05/27/2022 Renal function impairment Pantoprazole Other (see comment) 05/27/2022 Hypomagnesemia Medications CPAP DME DEVICE CPAPCPAP [id number] via IV [id number] -[id number] -2018Lefty Morrissey 8 Active pravastatin (PRAVACHOL) 20 [...] mouth 2 (two) times daily. Active CREON [id number] units capsule Take 2 capsules (72,000 units of lipase total) by mouth 3 (three) times daily with meals. 4 Active cholestyramine (QUESTRAN) 4 GM/DOSE powder Take 1 packet (4 g total) by mouth daily. 4 Active isosorbide mononitrate ER (IMDUR) 30 MG 24 hr tablet Take 1 tablet (30 mg total) by mouth daily. 90 tablet 3 4 Active cefUROXime (CEFTIN) 500 MG tablet Take 500 mg by mouth 2 (two) times daily. For 5 days Active Active Problems Problem Noted Date Diagnosed [...] check lipid panel Hypertension associated with diabetes ([facility]) 09/19/2012 Overview (10/22/2018): Overview: Unspecified essential hypertension Last Assessment & Plan: Controlled on current medications. Type 2 diabetes mellitus ([facility]) 06/28 Overview (10/22/2018): Overview: DMII WO CMP UNCNTRLD Last Assessment & Plan: A1c 8.1. Baseline BG reported at goal. Suspect pc excursions are reason for poor control but returns to baseline. Would benefit from CGM as this would provide daily education re: specific foods and BG patterns. Will try for this. No change to medication plan today. Encounters Date Type Department Care Team Description 11/12/2024 Telephone [facility] [address] [place] [address] lEla Witt MD Results 11/12/2024 Orders Only [facility] [address] [place] [address] Ella Witt MD 11/12/2024 Abstract [facility] [address] [place] [address] Ella Witt MD 11/04/2024 11:15 AM CDT - 11/04/2024 11:59 PM CDT Hospital Encounter [facility] [address] [place] [address] Ella Witt MD Discharge Disposition: Home or Self Care (Routine Discharge) 11/04/2024 10:30 AM CDT Office Visit [facility] [address] [place], [place] [address] [place] [address] Gonzalez Wilson MD Bhatti, Vikrampal S, MD CKD Follow-up (Pt is having some low back pain for the past 3 or 4 days.) 11/04/2024 Scan [facility] [address] [place] [address] Scanned, Doc Cikda 11/04/2024 Orders Only [facility] [place] [address] Ella Witt MD 11/04/2024 Travel 10/29/2024 Scan [facility] [address] [place] [address] Scanned, Doc Cikda Lab (SCAN) from Last 3 Months Family History Medical History Relation Comments Arthritis [...] Sign Reading Time Taken Comments Blood Pressure 94/65 11/04/2024 10:46 AM CDT Pulse 61 11/04/2024 10:46 AM CDT Temperature 36.2 C (97.2 F) 06/29/2022 6:18 AM RESEARCH RN SPEC Respiratory Rate 16 05/10/2024 12:4 0 PM CDT Oxygen Saturation 100% 11/02/2023 2:52 PM CDT Inhaled Oxygen Concentration - - Weight 104.9 kg (231 lb 3.2 oz) 025 10:46 AM CDT Height 170.2 cm (5' 7 ) 11/04/2024 10:4 6 AM CDT Body Mass Index 36.21 11/04/2024 10:46 AM CDT Plan of Treatment Health Maintenance Due Date [...] (2 of 2) 06/02/2021 04/07/2021 COVID-19 Vaccine (4 - season) 2024 06/21/2021, 10/03/2020, 09/05/2020 DTaP, Tdap and Td Vaccines (6 - [...] this topic Medical Devices Implanted Type Area Type Copyist Device Identifier Shelf Expiration Date Model / Serial / Lot Stent Ureteral Bunker Sci Contour 6fr X 26cm - [id number] Implanted:Qty : 1 on 06/28/2021 by Ryan Vinson MD at [facility] Stent Right: Ureter CAPNIA MASOOD [id number] 04/12/2024 [id number] 30 / / [id number] Procedures Procedure Name Priority Date/Time Associated Diagnosis Comments HC URINALYSIS AUTO W/MICRO Routine 11/04/2024 11:24 AM CDT Chronic kidney disease, stage 3b (CMS/HCC) OUTSIDE LAB (SCAN ORDER) Routine 10/29/2024 LIPID PANEL Routine 07/23/2009 12:00 AM RESEARCH RN SPEC from Last 3 Months or Most Recently Relevant to Health Maintenance Results * (ABNORMAL) URINALYSIS (11/04/2024 11:24 AM CDT) COLOR (U) YELLOW 11/04/2024 11:52 AM CDT [facility] TRANSPARENCY CLEAR 11/04/2024 11:52 AM CDT [facility] SPECIFIC GRAVITY (U) 1.020 1.000 - 1.025 11/04/2024 11:52 AM CDT [facility] U PH 5.5 5.0 - 8.0 11/04/2024 11:52 AM CDT [facility] LEUKOCYTES (U) TRACE(A) NEGATIVE 11/04/2024 11:52 AM CDT [facility] NITRITES NEGATIVE NEGATIVE 11/04/2024 11:52 AM CDT [facility] PROTEIN RANDOM (U) NEGATIVE NEGATIVE 11/04/2024 11:52 AM CDT [facility] GLUCOSE (U) 2+(A) NEGATIVE 11/04/2024 11:52 AM CDT [facility] KETONES MG/DL (U) NEGATIVE NEGATIVE 11/04/2024 11:52 AM CDT [facility] UROBILINOGEN 0.2 <1.0 EU/DL 11/04/2024 11:52 AM CDT [facility] BILIRUBIN (U) NEGATIVE NEGATIVE 11/04/2024 11:52 AM CDT [facility] BLOOD (U) NEGATIVE NEGATIVE 11/04/2024 11:52 AM CDT [facility] WBC/HPF 0-5 0 - 5 /HPF 11/04/2024 11:52 AM CDT [facility] RBC/HPF 0-5 0 - 5 /HPF 11/04/2024 11:52 AM CDT [facility] EPI/LPF FEW /LPF 11/04/2024 11:52 AM CDT [facility] BACTERIA (U) 1+ /HPF 11/04/2024 11:52 AM CDT [facility] URINE SPECIMEN OBTAINED BY CLEAN CATCH PROCEDURE / Unknown 11/04/2024 11:24 AM CDT us Ella Witt MD URINE ORDERABLES Final Res ult Performing Organization Address [facility]/ZIP Co de Phone Number [facility] [address] [place] [address], * OUTSIDE LAB (10/29/2024) 10/29/2024 us Doc Cikda Scanned SCANNING Final Result Performing Organization Address [facility]/ZIP Co de Phone Number [facility] * LIPID PANEL (07/23/2009 12:00 AM RESEARCH RN SPEC) TRIGLYCERIDES 132 0 - 150 mg/dl MEDINFORMATIX TO EPIC CONVERSION CHOLESTEROL 180 0 - 200 mg/dl MEDINFORMATIX TO EPIC CONVERSION HDL 61 40 - 59 mg/dl MEDINFORMATIX TO EPIC CONVERSION LDL CONVERSION 93 0 - 100 mg/dl MEDINFORMATIX TO EPIC CONVERSION CHOL/HDL RATIO 3.0 <4.0 (Calc) MEDINFORMATIX TO EPIC CONVERSION 07/23/2009 07/23/2009 Narrative MEDINFORMATIX TO EPIC CONVERSION - 07/23/2009 1:31 PM RESEARCH RN SPEC Reviewed by ANGELA Jul 23 2009 1:33:00:000PM us Generic Conversion Md [facility] Final R esult MEDINFORMATIX TO EPIC CONVERSION from Last 3 Months or Most Recently Relevant to Health Maintenance Insurance MEDICAID Member Subscriber Plan / Payer (Ef fective 2018-Present) Name:Krystamarsha Nicole Relation to Subscriber:Self Name:Keri Stone Ann Payer ID:Not on file Group ID:Not on file Type:Not on file Address: [address] MEDICAID Member Subscriber Plan / Payer (Ef fective 2018-Present) Name:KrystamarshaKeriNicole Relation to Subscriber:Self Name:Keri Stone Ann Payer ID:Not on file Group ID:Not on file Type:Not on file Address: [address] MEDICAID Advance Directives * Full Code (Latest Code Status on File) Date Activated Date Inactivated Comments 06/29/2022 9:52 AM 06/29/2022 1:43 PM Care Teams Open Source Developer Relationship Specialty Start Date End Date Virgilio Meehan DO [address] [place] [address] PCP - General FAMILY PRACTICE 09/08/22 Cee Liu APRN, NEWSAGENT-C [address] [facility] [address] [place] [address] NURSE PRACTITIONER 05/27/22 Mame Osborn MD [address] [place] [address] INTERVENTIONAL CARDIOLOGY 05/10/24
--- OUTSIDE RECORDS SUMMARY | 2024-11-16 14:43 | XMS_ITS | Clinical Summary ---
Author Organization [facility] Address [address] [place] [address] Care Team Providers Care Health And Social Care Teacher Name Role Phone Willian Mendoza MD Primary Care Provider [phone] Allergies Active Allergy Reactions Criticality Noted Date [...] mouth 2 (two) times a day Active laxxcuaksljq-Ma-td on-minerals tablet Take 1 tablet by mouth [...] hyperglycemia, with long-term current use of insulin ([facility]) USE FOR TESTING FOUR TIMES A DAY DIRECTED 400 each 3 03/21/20 22 Active pen needle, diabetic (TRUEplus Pen Needle) 31 gauge x 3/16 needle Use to inject insulin up to 5 times daily 450 each 2 03/21/20 22 Active alcohol swabs (BD Alcohol Swabs) pads, medicatedIndicatio ns:Type 2 diabetes mellitus with hyperglycemia, with long-term current use of insulin ([facility]) USE DIRECTED 4 TIMES DAILY 400 each [...] 1 tablet (100 mcg total) by mouth tie layer before breakfast 90 tablet 3 08/07/20 24 [...] Assessment & Plan (08/07/2024 5:51 PM CONFERENCE MANAGER): Chronic, stable. Continue levothyroxine Update TFTs Assessment & Plan (08/10/2023 3:53 PM CONFERENCE MANAGER): Chronic, well-controlled Importance of taking levothyroxine [...] Assessment & Plan (08/07/2024 5:51 PM CONFERENCE MANAGER): Chronic, stable Update lipid profile Continue statin therapy Assessment & Plan (08/10/2023 3:53 PM CONFERENCE MANAGER): Chronic, well-controlled Continue statin therapy with Pravachol Assessment & Plan (01/17/2023 1:59 PM CDT): Chronic, well controlled Low fat Low cholesterol diet Exercise Continue statin therapy with Pravachol Assessment & Plan (03/17/2022 9:47 AM CDT): Chronic problem. On statin therapy, no changes. Assessment & Plan (10/28/2021 1:21 PM CONFERENCE MANAGER): Chronic problem. On statin therapy, no [...] Assessment & Plan (09/27/2019 9:29 AM CONFERENCE MANAGER): LDL at goal. Trigs elevated. Continue [...] Assessment & Plan (08/07/2018 1:59 PM CONFERENCE MANAGER): At goal on current medications. Assessment [...] Assessment & Plan (09/27/2019 9:29 AM CONFERENCE MANAGER): Continues to do well with wt [...] Assessment & Plan (08/07/2018 1:59 PM CONFERENCE MANAGER): Continues to gain weight. Little attempt at diet and exercise. Reviewed importance of avoiding juice, soda, high fat, high carb foods. Assessment & Plan (10/05/2017 2:49 PM CONFERENCE MANAGER): Diet and exercise were discussed. 1200 Calorie diet advised 45-60 min aerobic / resistance exercise most days of the week recommended. Bariatric surgery medically indicated Assessment & Plan (07/20/2017 4:17 PM CONFERENCE MANAGER): Importance of following diet and exercising [...] Assessment & Plan (10/28/2021 1:21 PM CONFERENCE MANAGER): Controlled on current medications, no changes. [...] Assessment & Plan (09/27/2019 9:29 AM CONFERENCE MANAGER): Controlled on current medications. Continue plan. Assessment & Plan (06/06/2019 2:49 PM CDT): Controlled on current medications. Continue plan. Assessment & Plan (11/01/2018 2:04 PM CDT): Goal blood pressure is less than 140/85 Low salt diet recommended Daily aerobic exercise Continue current meds, including ALYCE-I or ARB Assessment & Plan (08/07/2018 2:00 PM CONFERENCE MANAGER): Controlled on current medications. Assessment & Plan (04/17/2018 2:07 PM CDT): Goal blood pressure is less than 140/85 Low salt diet recommended Daily aerobic exercise Continue current meds, including ALYCE-I or ARB Assessment & Plan (10/05/2017 2:50 PM CONFERENCE MANAGER): Goal blood pressure is less than 140/85 Low salt diet recommended Daily aerobic exercise Continue current meds, including ALYCE-I or ARB Assessment & Plan (07/20/2017 4:18 PM CONFERENCE MANAGER): Controlled on current medications. Assessment & Plan (04/06/2017 4:28 PM CDT): At goal on current medications. Hyperlipidemia 09/19/2012 Overview (11/24/2016): HYPERLIPIDEMIA NEC/NOS Assessment & Plan (06/06/2019 2:49 PM CDT): Lipid panel ordered Assessment & Plan (07/20/2017 4:18 PM CONFERENCE MANAGER): Will check lipid panel Assessment & Plan (04/06/2017 4:28 PM CDT): Check labs and focus on low fat foods Furuncle of trunk 06/28/2012 Overview (11/23/2016): Carbuncle and furuncle of trunk Type 2 diabetes mellitus 06/28/2012 Overview (11/24/2016): DMII WO CMP UNCNTRLD Assessment & Plan (08/07/2024 5:50 PM CONFERENCE MANAGER): Chronic, stable Diet and exercise were emphasized Continue Farxiga and Ozempic Assessment & Plan (02/13/2024 4:29 PM CDT): Chronic, well-controlled. Continue Ozempic 2 mg weekly Farxiga 10 mg Importance of diet and exercise was discussed Assessment & Plan (08/10/2023 3:52 PM CONFERENCE MANAGER): Chronic, well-controlled, with some postprandial hyperglycemia [...] Assessment & Plan (07/19/2022 1:34 PM CONFERENCE MANAGER): Hba1c was Lab Results Component Value [...] Assessment & Plan (10/28/2021 1:43 PM CONFERENCE MANAGER): Chronic problem, not at goal. Increase [...] Assessment & Plan (09/27/2019 9:31 AM CONFERENCE MANAGER): A1c increased to 7.8. Pattern acceptable [...] goal hba1c is under 7.0 to prevent longterm diabetes complications ( eye , kidney and [...] Assessment & Plan (08/07/2018 2:02 PM CONFERENCE MANAGER): A1c 8.1. Baseline BG reported at [...] Assessment & Plan (10/05/2017 2:51 PM CONFERENCE MANAGER): Hba1c was . 9.6 . today, [...] Assessment & Plan (07/20/2017 4:17 PM CONFERENCE MANAGER): A1c improved 8.7, ~ 2%. Mostly [...] Type Department Care Team Description 10/18/2024 Telephone [facility] [address] [address] Anthony Castillo MD 09/11/2024 Telephone [facility] [address] [address] Anthony Castillo MD Fax [facility] new prescription request from Last 3 Months Surgical History Surgery Date Site/Laterality Comments BARIATRIC SURGERY 08/21/2018 - 08/20/2019 Gastric sleeve at [place] Medical History Medical History Date Comments Hyperlipidemia Hyperlipidemia Hx Other Medical atrophic uterus Hx Other Medical hidradenitis shell ppurative Hx Other Medical congenital uter ine atrophy Hypertension Hypertension Hx Other Medical Claustrophobic; Comments: GFC 04/15/2014 - Anemia Anemia Hx Other Medical [...] file Legal Sex Female 10:22 AM CONFERENCE MANAGER Gender Identity Not on file Sexual Orientation Straight 08/07/2024 2: 11 PM CONFERENCE MANAGER Obstetrics History Last Filed Vital Signs Vital Sign Reading Time Taken Comments Blood Pressure 100/68 08/07/2024 2:37 PM CONFERENCE MANAGER Pulse 66 08/07/2024 2:37 PM CONFERENCE MANAGER Temperature - - Respiratory Rate 17 08/07/2024 2:37 PM CONFERENCE MANAGER Oxygen Saturation - - Inhaled Oxygen Concentration - - Weight 109 kg (240 lb 6.4 oz) 08/07/2024 2:37 PM CONFERENCE MANAGER Height 170.2 cm (5' 7 ) 08/07/2024 2:37 PM CONFERENCE MANAGER Body Mass Index 37.65 08/07/2024 2:37 PM CONFERENCE MANAGER Plan of Treatment Health Maintenance Due Date [...] Additional history exists Lipid Panel 08/10/2024 08/10/2023, 07/03/2022, 11/29/2020, Additional history exists Albumin Creatinine Ratio, Urine 08/28/2024 08/28/2023, 12/26/2022, 03/17/2022, Additional history exists Dilated Eye Exam 10/11/2024 10/11/2023, , 09/03/2020, Additional history exists Hemoglobin A1C 02/05/2025 08/07/2024, 0612/2023, 08/10/2023, Additional history exists Depression Screening 08/07/2025 08/07/2024, 02/13/2024, 01/17/2023, Additional history exists eGFR 08/07/2025 08/07/2024, 03/2024, 08/10/2023, Additional history exists DTaP/Tdap/Td Vaccine (6 - Td or Tdap) 04/23/2027 04/23/2017, 07/25/2006, 11/07/1969, Additional history exists Procedures Procedure Name Priority Date/Time Associated Diagnosis Comments EGFR Routine 08/07/2024 3:23 PM CONFERENCE MANAGER Type 2 diabetes mellitus with hyperglycemia, with long-term current use of insulin (HCC) POCT HEMOGLOBIN A1C Routine 08/07/2024 2 :38 PM CONFERENCE MANAGER Type 2 diabetes mellitus with hyperglycemia, with long-term current use of insulin (HCC) HM DIABETES EYE EXAM Routine 10/11/2023 9:29 AM CONFERENCE MANAGER ALBUMIN CREATININE RATIO, URINE Routine 08/28/2023 7:38 AM CONFERENCE MANAGER LIPID PANEL Routine 08/10/2023 1:53 PM CONFERENCE MANAGER Hyperlipidemia associated with type 2 diabetes mellitus (HCC) from Last 3 Months or Most Recently Relevant to Health Maintenance Results * (ABNORMAL) eGFR (08/07/2024 3:23 PM CONFERENCE MANAGER) eGFR 35(L) >=60 mL/min/1. 73 m2 [...] reviewed 2021. Blood 08/07/2024 3:23 PM CONFERENCE MANAGER 08/07/2024 6:55 PM CONFERENCE MANAGER Result [facility] us Anthony Castillo MD LAB BLOOD ORDERABLES Final Resul t OLGA [address] [address] Department [place] [address] * (ABNORMAL) POCT hemoglobin A1c (08/07/2024 2:38 PM CONFERENCE MANAGER) Hemoglobin A1C, POC 7.1 4.0 - 5.6 % Comment:None Capillary blood 08/07/2024 2 :38 PM CONFERENCE MANAGER Result [facility] Anthony Castillo MD POINT OF CARE TEST ORDERABLES Fi nal Result * (ABNORMAL) DIABETES EYE EXAM (10/11/2023 9:29 AM CONFERENCE MANAGER) Isis Salgado MD HEALTH MAINTENANCE Final Result * (ABNORMAL) Albumin Creatinine Ratio, Urine (08/28/2023 7:38 AM CONFERENCE MANAGER) SCRIBED Creatinine, Urine 75.44 40 - 278 EXTERNAL LAB SCRIBED Microalbumin 13.4(A) 0.0 - 11.9 EXTERNAL LAB SCRIBED Microalb/Creat Ratio 0.18 0 - 0.20 EXTERNAL LAB Urine 08/28/2023 7:38 AM CONFERENCE MANAGER us Historical Provider LAB URINE ORDERABLES Edit ed Result - Final EXTERNAL LAB * (ABNORMAL) Lipid panel (08/10/2023 1:53 PM CONFERENCE MANAGER) Cholesterol 164 30 - 199 mg/dL [...] OLGA HORNER Blood 08/10/2023 1:53 PM CONFERENCE MANAGER 08/10/2023 7:31 PM CONFERENCE MANAGER us Anthony Castillo MD LAB BLOOD ORDERABLES Final Resul t OLGA [address] [address] Department [place] [address] from Last 3 Months or Most Recently Relevant to Health Maintenance Insurance IDPA [facility] [place] [address] [facility] MEDICARE ADVANTAGE IDPA Care Teams Health And Social Care Teacher Relationship Specialty Start Date End Date Willian Mendoza MD [facility] - General 02/18/16
--- OUTSIDE RECORDS SUMMARY | 2024-11-16 14:43 | XMS_ITS | Encounter Summary ---
Author Organization [facility] Address [facility] [place] [address] Care Team Providers Care Mold Finisher Name Role Phone Cee Liu APRN PROGRAMMING INTERNSHIP-C Unavailable Virgilio Meehan DO Primary Care Provider [phone] Mame Osborn MD Unavailable [phone] Reason for Visit * Reason Comments Lab (SCAN) Encounter Details Date Type Department Care Team (Late st Contact Info) Description 10/29/2024 Scan [facility] [address] [place] [address] Scanned, Doc Cikda Lab (SCAN) Social History Tobacco Use Types Packs/Day Years [...] Procedure Name Priority Date/Time Associated Diagnosis Comments OUTSIDE LAB (SCAN ORDER) Routine 10/29/2024 documented in this encounter Results * OUTSIDE LAB (10/29/2024) 10/29/2024 us Doc Cikda Scanned SCANNING Final Result [facility] documented in this encounter Visit Diagnoses Not on filedocumented in this encounter Care Teams Mold Finisher Relationship Specialty Start Date End Date Virgilio Meehan DO [address] [place] [address] PCP - General FAMILY PRACTICE 09/08/22 Cee Liu APRN, PROGRAMMING INTERNSHIP-C [address] [phone] NURSE PRACTITIONER 05/27/22 Mame Osborn MD [address] [place] [address] INTERVENTIONAL CARDIOLOGY 05/10/24 documented as of this encounter
[2024-11-16 16:15] LABS: Cholesterol 167 mg/dL (0-200); HDL Direct 62 mg/dL (40-60); Iron 69 ug/dL (50-170); LDL Cholesterol Calculated 86 mg/dL (<130); Percent Iron Saturation 26 % (12-57); Triglycerides 94 mg/dL (0-150); Vitamin B12 839 pg/mL (193-986)
== END 2024-11-16 14:38 | disposition home or self-care (01) ==
PROVIDERS: PCP Family Medicine; Visit Provider Nurse Practitioner Family
DX: Z98.84 Bariatric surgery status (principal); D64.9 Anemia, unspecified; E78.00 Pure hypercholesterolemia, unspecified
CPT/HCPCS: 36415; 80061; 82607; 83540; 83550

== ENCOUNTER 2024-12-13 12:39 | Outpatient (CLI) | payer MEDICARE, MEDICAID, SELFPAY ==
--- NOTE | ~2024-12-13 | XR_ITS ---
Left Hand Technique: PA, oblique, and lateral views were obtained. Clinical History: Pain Findings: No acute fracture or dislocation is seen. Osseous alignment is anatomic. Joint spaces are p reserved. Soft tissues are unremarkable. Impression: Unremarkable left hand. Reviewed, dictated and finalized at location M. Impression: Unremarkable left hand.
--- NOTE | ~2024-12-13 | XR_ITS ---
Lumbosacral Spine: AP and lateral views Clinical History: Pain Findings: The normal lordotic curve is maintained. There is 7 mm anterolisthesis of L4 over L5 with a dvanced degenerative disc narrowing at this level. There is severe facet arthropathy from L3 through S1.. The sacroiliac joints are normally outlined. Impression: 7 mm anterolisthesis of L4 over L5. Advanced degenerative spondylosis of the lower lumbar spine, as detailed above. Reviewed, dictated and finalized at location . Impression: 7 mm anterolisthesis of L4 over L5. Advanced degenerative spondylosis of the lower lumbar spine, as detailed above.
--- NOTE | ~2024-12-13 | XR_ITS ---
AP and lateral views of the bilateral hips Clinical history: Pain Findings: No acute fracture or dislocation is seen. Osseous alignment is anatomic. There is moderate degenerative change of the left hip joint. There is minimal degenerative change of the right hip join t.. Soft tissues are unremarkable. Impression: Moderate left hip joint degenerative change. Minimal right hip joint degenerative change. Reviewed, dictated and finalized at location . Impression: Moderate left hip joint degenerative change. Minimal right hip joint degenerative change.
--- NOTE | ~2024-12-13 | XR_ITS ---
Right Hand Technique: PA, oblique, and lateral views were obtained. Clinical History: Pain Findings: No acute fracture or dislocation is seen. Osseous alignment is anatomic. Joint spaces are p reserved. Soft tissues are unremarkable. Impression: Unremarkable right hand. Reviewed, dictated and finalized at location M. Impression: Unremarkable right hand.
--- OUTSIDE RECORDS SUMMARY | 2024-12-13 12:45 | XMS_ITS | Encounter Summary ---
Author Organization [facility] Address [facility] [place] [address] Care Team Providers Care Surfacer Operator Name Role Phone Alexis Thurman MD Unavailable [phone] Willian Mendoza MD Primary Care Provider [phone] Cee Liu APRN, STAINED GLASS GLAZIER-C Unavailable Virgilio Meehan DO Primary Care Provider [phone] Mame Osborn MD Unavailable [phone] Encounter Details Date Type Department Care Team (Late st Contact Info) Description 11/04/2017 Abstract [facility] [address] [place] [address] , Generic ConversionMD Social History Tobacco Use [...] Care Team (Late st Contact Info) Description 05/12/2025 1:30 PM CDT Office Visit [facility] eld [address] [place] [address] Cee Liu, ANGEL, STAINED GLASS GLAZIER-C [address] [facility] [address] [place] [phone] documented as of this encounter Visit Diagnoses Not on filedocumented in this encounter Care Teams Surfacer Operator Relationship Specialty Start Date End Date Willian Mendoza MD [address] [place] [address] PCP - General INTERNAL MEDICINE 09/14/18 09/07/22 Virgilio Meehan DO [address] [place] [address] PCP - General FAMILY PRACTICE 09/08/22 Alexis Thurman MD [address] [place] [address] [place] [employer] Technician CARDIOVASCULAR DISEASE 09/14/18 04/01/24 Cee Liu, MANAGER INTERFACE, STAINED GLASS GLAZIER-C [address] [facility] [address] [place] [address] NURSE PRACTITIONER 05/27/22 Mame Osborn MD [address] [place] [address] INTERVENTIONAL CARDIOLOGY 05/10/24 documented as of this encounter
--- OUTSIDE RECORDS SUMMARY | 2024-12-13 12:45 | XMS_ITS ---
Author Organization [facility] Address [address] [place], [place] [id number] Care Team Providers Care Heavy Lift Rigger Name Role Phone MIRIAN MOSHER Unavailable [phone] Virgilio Meehan Unavailable Unavailable WILFREDO BRODERICK Unavailable [phone] REASON FOR VISIT *General care Encounters Encounter Location Date Provider Diagnosis [address] [id number] 12/12/2024 WILFREDO BRODERICK Plan Of Treatment Next Appt Details Provider Name:WILFREDO MARTIN, 01/02/2025 02:10:00 PM, [address] [place] [address], [id number], Progress Notes * MATEUSZ MONROE ADOB:[birth year] (59 yo F)Acc No.[id number]:12/12/2024 Patient: MATEUSZ ZHU Provider: Gavi BRODERICK :1965 A ge:59 Y S ex:Female Date:12/12/2024 Address:[address] [place], [place] [id number] Subjective: * Chief Complaints: * 1 . *General care. * Medical History: Objective: * Vitals: Assessment: Plan: * Treatment: * Billing Information: * Visit Code: * Procedure Codes: * Electronic signature of KINA BRODERICK DPM on 12/13/2024 at 12:45 PM CDT Sign off status: Pending * Provider: Gavi BRODERICK Date: 0 12/12/2024 Generated for Curt small/Ana Maria/Jose on: 0 12/13/2024 12:45 PM BOONET
--- OUTSIDE RECORDS SUMMARY | 2024-12-13 12:45 | XMS_ITS | Encounter Summary ---
Author Organization [facility] Address [facility] [place] [address] Care Team Providers Care Deck Steward Name Role Phone Alexis Thurman MD Unavailable [phone] Willian Mendoza MD Primary Care Provider [phone] Cee Liu APRN, DAIRY AND FOOD LABORATORY ASSISTANT-C Unavailable Virgilio Meehan DO Primary Care Provider [phone] Mame Osborn MD Unavailable [phone] Encounter Details Date Type Department Care Team (Late st Contact Info) Description 10/12/2018 Abstract [facility] [address] [place] [address] Abstract, Doc [facility] Social History [...] Encounters Date Type Department Care Team (Late Contact Info) Description 05/12/2025 1:30 PM CDT [facility] [address] [place] [phone] Cee Liu APRN, DAIRY AND FOOD LABORATORY ASSISTANT-C [address] [facility] [address] [place] [address] documented as of this encounter Visit Diagnoses Not on filedocumented in this encounter Care Teams Deck Steward Relationship Specialty Start Date End Date Willian Mendoza MD [address] [place] [address] PCP - General INTERNAL MEDICINE 09/14/18 09/07/22 Virgilio Meehan DO [address] [place] [address] PCP - General FAMILY PRACTICE 09/08/22 Alexis Thurman MD [address] [place] [phone] [place] Associate Program Manager CARDIOVASCULAR DISEASE 09/14/18 04/01/24 Cee Liu APRN, DAIRY AND FOOD LABORATORY ASSISTANT-C [address] [facility] [address] [place] [phone] NURSE PRACTITIONER 05/27/22 Mame Osborn MD [address] [place] [place], [place] [address] INTERVENTIONAL CARDIOLOGY 05/10/24 documented as of this encounter
--- OUTSIDE RECORDS SUMMARY | 2024-12-13 12:45 | XMS_ITS | Encounter Summary ---
Author Organization [facility] Address [facility] [place] [address] Care Team Providers Care Paralegal Name Role Phone Alexis Thurman MD Unavailable [phone] Cee Liu APRN, NP-C Unavailable Virgilio Meehan DO Primary Care Provider [phone] Mame Osborn MD Unavailable [phone] Encounter Details Date Type Department Care Team (Late Contact Info) Description 12/21/2022 Abstract [facility] [address] [place] [address] Naheed Arzola MD [address] [place] [address] Social History Tobacco Use Types Packs/Day Years [...] Description 05/12/2025 1:30 PM CDT Office Visit [facility] eld [address] [place] [address] Cee Liu APRN, PRISON OFFICER-C [address] [phone] documented as of this encounter Visit Diagnoses Not on filedocumented in this encounter Care Teams Paralegal Relationship Specialty Start Date End Date Virgilio Meehan DO [address] [place] [address] PCP - General FAMILY PRACTICE 09/08/22 Alexis Thurman MD [address] [place] [address] [place] Catalogue Maker CARDIOVASCULAR DISEASE 09/14/18 04/01/24 Cee Liu APRN, PRISON OFFICER-C [address] [address] NURSE PRACTITIONER 05/27/22 Mame Osborn MD [address] [place] [address] INTERVENTIONAL CARDIOLOGY 05/10/24 documented as of this encounter
--- OUTSIDE RECORDS SUMMARY | 2024-12-13 12:45 | XMS_ITS | Encounter Summary ---
Author Organization [facility] Address [facility] [place] [address] Care Team Providers Care County Commissioner Name Role Phone Alexis Thurman MD Unavailable [phone] Willian Mendoza MD Primary Care Provider [phone] Cee Liu APRN, LINTER SAW SHARPENER-C Unavailable Virgilio Meehan DO Primary Care Provider [phone] Mame Osborn MD Unavailable [phone] Encounter Details Date Type Department Care Team (Late st Contact Info) Description 06/24/2022 Hospital Orders Only [employer] Supervisor Pre/Post [address] [place] [address] Alexis Thurman MD [address] [place] [address] Social History Tobacco Use Types Packs/Day Years [...] Description 05/12/2025 1:30 PM CDT Office Visit [facility] [address] [place] [address] Cee Liu APRN, LINTER SAW SHARPENER-C [address] [facility] [address] [phone] documented as of this encounter Visit Diagnoses Not on filedocumented in this encounter Care Teams County Commissioner Relationship Specialty Start Date End Date Willian Mnedoza MD [address] [place] [address] PCP - General INTERNAL MEDICINE 09/14/18 09/07/22 Virgilio Meehan DO [address] [place] [address] PCP - General FAMILY PRACTICE 09/08/22 Alexis Thurman MD [address] [place] [phone] [place] Centrifugal Supervisor CARDIOVASCULAR DISEASE 09/14/18 04/01/24 Cee Liu APRN, LINTER SAW SHARPENER-C [address] [phone] NURSE PRACTITIONER 05/27/22 Mame Osborn MD [address] [place], [place] [address] INTERVENTIONAL CARDIOLOGY 05/10/24 documented as of this encounter
--- OUTSIDE RECORDS SUMMARY | 2024-12-13 12:45 | XMS_ITS | Data Portability ---
Author Organization [facility] Address [address] [place] [address] Care Team Providers Care Social Service Assistant Name Role Phone ELKE JACOBO Primary Care [...] scula r No observ ation record ed. [facility]) [address] [place], [address], 04/10/2022 00:58:08 Result Notes None recorded. Problems Name Problem SNOMED Code Status Onset Date Resolution Date Notes Provider Name and Address Organization Details Recorded Time SNOMED CT Concept Completed 201503/22/2022 Encntr for general adult medical exam w/o abnormal findings; Recorded Elsewhere : No Locati on: [facility] So urce: EHR Chron ic: N Practic e ID: 0001 Bill able Time: 03:30:00 PM Cecilia Rangel [facility] 2 16:06:09 Menopaus e present [id number] Completed 201503/22/2022 Menopausa l and female climacter ic states;Re corded Elsewhere : No Locati on: [facility] So urce: EHR Chron ic: N Practic e ID: 0001 Bill able Time: 01:00:00 PM Cecilia Rangel [facility] 2 16:06:09 Screenin g for malignan t neoplasm of rectum Completed 201503/22/2022 Encounter for screening for malignant neoplasm of rectum;Re corded Elsewhere : No Locati on: [facility] So urce: EHR Chron ic: N Practic e ID: 0001 Bill able Time: 03:30:00 PM Cecilia [facility] 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 2 16:06:09 Screenin g for malignan t neoplasm of cervix Completed 201503/22/2022 Encounter for screening for malignant neoplasm of cervix;Re corded Elsewhere : No Locati on: [facility] So urce: EHR Chron ic: N Practic e ID: 0001 Bill able Time: 03:30:00 PM Cecilia [facility] 2 16:06:09 Congenit al malforma tion [id number] Completed 201503/22/2022 Congenita l anomaly;R ecorded Elsewhere : No Locati on: [facility] So urce: EHR Chron ic: N Practic e ID: 0001 Bill able Time: 03:30:00 PM Cecilia Rangel null, [facility] 16:06:09 Problem Notes None recorded. Procedures Surgical History Date Name Laterality Status Provider Name and Address Organization Details Recorded Time 08/21/19 19 laparoscopic sleeve gastrectomy completed [facility] 03/23/2022 15:05:08 08/21/19 17 operation on mandible completed [facility] 03/23/2022 15:04:14 insertion of ureteral stent with ureterotomy completed [facility] 03/23/2022 15:03:53 Unlisted px femur/knee completed [facility] 03/23/2022 15:04:37 perinasal sinusotomy completed [facility] 03/23/2022 15:04:43 Carpal tunnel surgery completed [facility] 03/23/2022 15:04:53 Imaging Results Imaging Date Name Status LastModified by Organiz ation Details LastModified Time 03/31/2022 US, lower extremity, nonvascular completed [address], [address], 04/10/2022 00:58:08 Procedure Notes None recorded. Medical [...] Elsewher e: No Locat ion: Vik martin [facility] Isidro odify By: hiral carbone DateTime : 04/05/20 16 12:01:40 PM Not Available Not Available Not Available Neurontin 300 mg capsule take 1 capsule by oral route 3 times every day 04/28 completed Prescrib ed Elsewher e: No Locat ion: Vik martin [facility] odify By: wendy carbone DateTime : 03/08/20 16 09:00:54 AM Not Available Not Available Not Available verapamil 40 mg tablet take 1 tablet by oral route 3 times every day 03/23 completed Prescrib ed Elsewher e: Yes Loca tion: Vik martin [facility] odify By: [email or web address] trick En counter [...] Elsewher e: Yes Loca tion: Vik martin [facility] odify By: [email or web address] trick En counter DateTime : 01/27/20 16 01:00:00 PM Not Available Not Available Not Available propranol ol 60 mg tablet take 1 tablet by oral route 2 times every day 03/23 completed Prescrib ed Elsewher e: Yes [facility] By: [email or web address] trick En [...] Prescrib ed Elsewher e: Yes [facility] od[facility] By: [email or web address] trick En counter DateTime : 01/27/20 16 01:00:00 PM Not Available Not Available Not Available glimepiri de 1 mg tablet take 1 tablet by oral route every day 03/23 completed Prescrib ed Elsewher e: Yes Loca tion: Vik martin [facility] odify By: wendy guevarauntean DateTime : 04/28/20 16 03:30:00 PM Not Available Not Available Not Available levothyro xine 100 mcg tablet active Not Available Not Available Not Available ropinirol e 0.25 mg tablet take 1 tablet by oral route every day q 4-6hrs prn 03/23 completed Prescrib ed Elsewher e: Yes Loca tion: Vik martin [facility] odify By: wendy guevaraunter DateTime : 04/28/20 16 03:30:00 PM Not Available Not Available Not Available Humalog U-100 Insulin 100 unit/mL subcutane ous solution inject by subcutan eous route per prescrib er's instruct ions. Insulin dosing requires individu alizazacheryo n. 03/23 completed Prescrib ed Elsewher e: Yes Loca tion: Vik martin [facility] odify By: wendy guevarauntean DateTime : [...] Elsewher e: No Locat ion: Vik martin [facility] odify By: wendy guevarauntean DateTime : 01/27/20 16 01:00:00 PM Not Available Not Available Not Available ranitidin e 300 mg capsule take 1 capsule by oral route every day at bedtime 03/23 completed Prescrib ed Elsewher e: Yes Loca tion: Vik martin [facility] odify By: [email or web address] trick En counter DateTime : 01/27/20 16 01:00:00 PM Not Available Not Available Not Available pravastat in 20 mg tablet take 2 tablet by oral route every day active Not Available Not Available No t Available Estrace 0.5 mg tablet take 1 tablet by oral route every day 06/01 completed Prescrib ed Elsewher e: No Locat ion: Vik martin [facility] odify By: amkuhdot Martin ncounter DateTime : 03/31/20 16 04:45:00 PM Not Available Not Available Not Available cefdinir 300 mg capsule 03/23 completed Not Available Not Available Not Available losartan 100 mg tablet take 1 tablet by oral route every day 03/23 completed Prescrib ed Elsewher e: Yes Loca tion: Vik martin [facility] odify By: [email or web address] trick En counter DateTime : 01/27/20 16 01:00:00 PM Not Available Not Available Not Available fluticaso ne propionat e 50 mcg/actua tion nasal spray,karen pension active Not Available Not Available Not Available nortripty line 50 mg capsule take 1 capsule by oral route 2 times every day 2015 active Prescrib ed Elsewher e: Yes Loca tion: Vik martin [facility] odify By: [email or web address] trick En counter DateTime : 01/27/20 16 01:00:00 PM Not Available Not Available Not Available Estrace 1 mg tablet take 1 tablet by oral route every day 2015 active Prescrib ed Elsewher e: No Locat ion: Vik martin [facility] odify By: tgingric h Becki ter DateTime : 04/28/20 16 03:30:00 PM Not Available Not Available Not Available progester one micronize d 100 mg capsule take 1 capsule by oral route every day for 10 days in the evening 05/07 completed Prescrib ed Elsewher e: Yes Loca tion: Vik martin [facility] odify By: [email or web address] Martin ncounter DateTime : 04/28/20 16 03:30:00 PM Not Available Not Available Not Available amoxicill in 875 mg-potass ium clavulana te 125 mg tablet 03/23 completed Not Available Not Available Not Available iron 18 mg tablet 2015 active Prescrib ed Elsewher e: Yes Loca tion: Vik martin [facility] odify By: [email or web address] trick En counter DateTime : 01/27/20 16 01:00:00 PM Not Available Not Available Not Available magnesium 200 mg tablet 2015 active Prescrib ed Elsewher e: Yes Loca tion: Vik martin [facility] odify By: [email or web address] trick En counter DateTime : 01/27/20 16 01:00:00 PM Not Available Not Available Not Available Vitamin D3 25 mcg (1,000 unit) tablet take 1 by Oral route once for 2 months then draw labs 2015 active Prescrib ed Elsewher e: Yes Loca tion: Robe mario [facility] odify By: kmkirkpa trick En counter DateTime : 01/27/20 16 01:00:00 PM Not Available Not Available Not Available nitrofura ntoin monohydra te/macroc rystals 100 mg capsule active Not Available Not Available Not Available duloxetin e 20 mg capsule,d elayed release active Not Available Not Available Not Available Cinnamon 500 mg capsule 2015 active Prescrib ed Elsewher e: Yes Loca tion: Vik martin [facility] odify By: [email or web address] trick En counter DateTime : 01/27/20 16 01:00:00 PM Not Available Not Available Not Available Lantus Solostar U-100 Insulin 100 unit/mL (3 mL) subcutane ous pen active Not Available Not Available Not Available Tirosint 75 mcg capsule take 1 capsule by oral route every day 04/28 completed Prescrib ed Elsewher e: Yes Loca tion: [facility] odify By: wendy carbone DateTime : 01/27/20 16 01:00:00 PM Not Available Not Available Not Available Bydureon 2 mg subcutane ous extended release suspensio n inject by subcutan eous route every 7 days once 03/23 completed Prescrib ed Elsewher e: Yes Loca tion: [facility] odify By: kmkirkpa trick En counter DateTime [...] Updated DateTime 03/23/2022 168.91 cm 49.1 kg/m2 907217.0 4 g 136 mm[Hg] 80 mm[Hg] Cecilia Rangel [facility] 14:58:40 Social History Question Answer Notes LastModified by Organizat ion Details LastModified Time Tobacco Smoking Status Never Smoker Cecilia [facility] 03/23/2022 15:03:27 What Is Your Level [...] Anxious, Or Unable To Sleep At Night)? [id number] Information not available 03/23/2022 Do You Use [...] aunt: Diabetes mellitus Medical History Condition Response Thyroid Problems Y Diabetes Y High Cholesterol Y Hypertension Y Gynecological History Statement/Question Response Sexually Active? Y STIs/STDs N Menses Monthly N HPV Vaccine N Date of Last Pap Smear Sexual Problems? N Current Control Method None LMP Unknown Obstetrics History GPAL:G 0 P 0 0 0 0 Past Encounters Encounter ID Performer Location Encounter Start Date Encounter Closed Date Diagnosis/Indication Diagnosis SNOMED-CT Code Diagnosis ICD10 Code Diagnosis Note [id number] [facility] [address] [address] 03/23/2022 14:11:49 03/24/2022 16:35:54 Gynecologic examination 33705147 Z01.419 Take Calcium with Vitamin D 12-1500mg daily. Do monthly self breast exams. It is advised to get annual flu shot in the fall and she could obtain at [facility] or [facility]. If you haven't received the Tdap vaccine [...] Labs UTD PCPMammo UTD PCP Inguinal pain 875696934 R10.2 Left sided groin pain.Exam difficult due [...] Arias Member ID Guarantor Name 03/23/2022 1 [facility] Keri Stone [id number] Keri Stone 03/23/2022 2 [place] ([place]IC[place] Keri Stone [id number] Keri Stone Notes Date Note Type Note Provider Name and Address Organization Details Recorded Time 03/23/2022 text/html Annual Research And Evaluation Analyst Post-MenopausalRe ported bypatient.[place]op[place] olvin Symptoms:no menopausal symptoms; [...] activity. Kim Tovar, ESTELLA- [address], [place], [address], [place] - [facility] 03/24/2022 16:16:15 OBGyn Episode No OBEpisode recorded.
--- OUTSIDE RECORDS SUMMARY | 2024-12-13 12:45 | XMS_ITS | Continuity of Care Document ---
Author Organization [facility] Address [address] [facility] [address] [place] [address] Phone Care Team Providers Care Principal Engineer Name Role Phone Nilson Vaughan Unavailable Unavailable [...] Diagnoses Date Provider Providers Copied on Encounter [facility], [address], [place], [place], [id number], [place] tel:[phone] [facility] No Information Clement Devine. [address] [place], [address], [place]. tel:[phone] Referring Provider: Nilson Stewart, [address] [place], [address]. tel:[phone] [facility], [address], [place], [place], [id number], [place] tel:[phone] [facility] No Information Clement Devine. [address] [place], [address], [place]. tel:[phone] Referring Provider: Nilson Stewart, [address] [place], [address]. tel:[phone] [facility], [address], [place], [place], [id number], [place] tel:[phone] [facility] No Information Clement Devine. [address] [place], [address], [place]. tel:[phone] Referring Provider: Nilson Stewart, [address] [place], [address]. tel:[phone] [facility], [address], [place], [place], [id number], [place] tel:[phone] [facility] No Information Clement Devine. [address] [place], [address], [place]. [phone] Referring Provider: Nilson Stewart, [address] [place], [address]. tel:[phone] [facility], [address], [place], [place], [id number], [place] tel:[phone] [facility] No Information Clement Devine. [address] [place], [address], [place]. tel:[phone] [facility], [address], [place], [place], [id number], [place] tel:[phone] [facility] No Information Clement Devine. [address] [place], [address], [place]. tel:[phone] Referring Provider: Nilosn Stewart, [address] [place], [address]. tel:[phone] Office/outpat ient Visit, [facility], [address], [place], [place], [id number], [place] tel:[phone] [facility] No Information Clement Devine. [address] [place], [address], [place]. tel:[phone] Family History Family Member Type Diagnosis Age At Onset No Information Payers Payer name Insurance type Covered constitution party ID Authorshiloha tiisaiah(s) Medicaid [facility] [id number] Social History Type Description Quantity Date Captured [...]
--- OUTSIDE RECORDS SUMMARY | 2024-12-13 12:45 | XMS_ITS | Encounter Summary ---
Author Organization [facility] Address [facility] [place] [address] Care Team Providers Care Screen Making Supervisor Name Role Phone Alxeis Thurman MD Unavailable [phone] Willian Mendoza MD Primary Care Provider [phone] Cee Liu APRN, QUALITY CONTROL REPRESENTATIVE-C Unavailable Virgilio Meehan DO Primary Care Provider [phone] Mame Osborn MD Unavailable [phone] Encounter Details Date Type Department Care Team (Late st Contact Info) Description 04/07/2021 Abstract [facility] [address] [place] [address] [place] [address] [place] [id number] Social History Tobacco Use Types Packs/Day Years [...] 05/12/2025 1:30 PM CDT Office Visit [facility] [address] [place] [address] Cee Liu APRN, QUALITY CONTROL REPRESENTATIVE-C [address] [phone] documented as of this encounter Visit Diagnoses Not on filedocumented in this encounter Care Teams Screen Making Supervisor Relationship Specialty Start Date End Date Willian Mendoza MD [address] [place] [address] PCP - General INTERNAL MEDICINE 09/14/18 09/07/22 Virgilio Meehan DO [address] [place] [address] PCP - General FAMILY PRACTICE 09/08/22 Alexis Thurman MD [address] [place] [address] [place] Labor Trainer CARDIOVASCULAR DISEASE 09/14/18 04/01/24 Cee Liu APRN, QUALITY CONTROL REPRESENTATIVE-C [address] [phone] NURSE PRACTITIONER 05/27/22 Mame Osborn MD [address] [place] [address] INTERVENTIONAL CARDIOLOGY 05/10/24 documented as of this encounter
--- OUTSIDE RECORDS SUMMARY | 2024-12-13 12:45 | XMS_ITS | Referral Summary ---
Author Organization [address] Address [address] [place] [address] Care Team Providers Care Solid Propellant Processor Name Role Phone Willian Mendoza MD Primary Care Provider [phone] Encounters Date Type Department Care Team Description 11/28/2024 Telephone [facility] of [address] [address] Erika Mandel ACCOUNT UNDERWRITER 11/21/2024 Telephone [facility] [address] [address] Anthony Castillo MD PA in CM Dexcom G7 sensor 10/18/2024 Telephone [facility] [address] [address] Anthony Castillo MD from Last 3 Months Allergies Active Allergy [...] mouth 2 (two) times a day Active [id number] on-minerals tablet Take 1 tablet by mouth [...] diabetic (TRUEplus Pen Needle) 31 gauge x 16 needle Use to inject insulin up to [...] 1 tablet (100 mcg total) by mouth e learning designer before breakfast 90 tablet 3 08/07/20 24 [...] 03/17/2022 Assessment & Plan (08/07/2024 5:51 PM SPECIAL SERVICE OFFICER): Chronic, stable. Continue levothyroxine Update TFTs Assessment & Plan (08/10/2023 3:53 PM SPECIAL SERVICE OFFICER): Chronic, well-controlled Importance of taking levothyroxine on [...] 04/17/2018 Assessment & Plan (08/07/2024 5:51 PM SPECIAL SERVICE OFFICER): Chronic, stable Update lipid profile Continue statin therapy Assessment & Plan (08/10/2023 3:53 PM SPECIAL SERVICE OFFICER): Chronic, well-controlled Continue statin therapy with Pravachol Assessment & Plan (01/17/2023 1:59 PM CDT): Chronic, well controlled Low fat Low cholesterol diet Exercise Continue statin therapy with Pravachol Assessment & Plan (03/17/2022 9:47 AM CDT): Chronic problem. On statin therapy, no changes. Assessment & Plan (10/28/2021 1:21 PM SPECIAL SERVICE OFFICER): Chronic problem. On statin therapy, no changes. [...] Pravachol Assessment & Plan (09/27/2019 9:29 AM SPECIAL SERVICE OFFICER): LDL at goal. Trigs elevated. Continue statin [...] therapy Assessment & Plan (08/07/2018 1:59 PM SPECIAL SERVICE OFFICER): At goal on current medications. Assessment & [...] dicussed Assessment & Plan (09/27/2019 9:29 AM SPECIAL SERVICE OFFICER): Continues to do well with wt loss [...] adjusted. Assessment & Plan (08/07/2018 1:59 PM SPECIAL SERVICE OFFICER): Continues to gain weight. Little attempt at diet and exercise. Reviewed importance of avoiding juice, soda, high fat, high carb foods. Assessment & Plan (10/05/2017 2:49 PM SPECIAL SERVICE OFFICER): Diet and exercise were discussed. 1200 Calorie diet advised 45-60 min aerobic / resistance exercise most days of the week recommended. Bariatric surgery medically indicated Assessment & Plan (07/20/2017 4:17 PM SPECIAL SERVICE OFFICER): Importance of following diet and exercising discussed. [...] changes. Assessment & Plan (10/28/2021 1:21 PM SPECIAL SERVICE OFFICER): Controlled on current medications, no changes. Assessment [...] microalbumin Assessment & Plan (09/27/2019 9:29 AM SPECIAL SERVICE OFFICER): Controlled on current medications. Continue plan. Assessment & Plan (06/06/2019 2:49 PM CDT): Controlled on current medications. Continue plan. Assessment & Plan (11/01/2018 2:04 PM CDT): Goal blood pressure is less than 140/85 Low salt diet recommended Daily aerobic exercise Continue current meds, including ALYCE-I or ARB Assessment & Plan (08/07/2018 2:00 PM SPECIAL SERVICE OFFICER): Controlled on current medications. Assessment & Plan (04/17/2018 2:07 PM CDT): Goal blood pressure is less than 140/85 Low salt diet recommended Daily aerobic exercise Continue current meds, including ALYCE-I or ARB Assessment & Plan (10/05/2017 2:50 PM SPECIAL SERVICE OFFICER): Goal blood pressure is less than 140/85 Low salt diet recommended Daily aerobic exercise Continue current meds, including ALYCE-I or ARB Assessment & Plan (07/20/2017 4:18 PM SPECIAL SERVICE OFFICER): Controlled on current medications. Assessment & Plan (04/06/2017 4:28 PM CDT): At goal on current medications. Hyperlipidemia 09/19/2012 Overview (11/24/2016): HYPERLIPIDEMIA NEC/NOS Assessment & Plan (06/06/2019 2:49 PM CDT): Lipid panel ordered Assessment & Plan (07/20/2017 4:18 PM SPECIAL SERVICE OFFICER): Will check lipid panel Assessment & Plan (04/06/2017 4:28 PM CDT): Check labs and focus on low fat foods Furuncle of trunk 06/28/2012 Overview (11/23/2016): Carbuncle and furuncle of trunk Type 2 diabetes mellitus 06/28/2012 Overview (11/24/2016): DMII WO CMP UNCNTRLD Assessment & Plan (08/07/2024 5:50 PM SPECIAL SERVICE OFFICER): Chronic, stable Diet and exercise were emphasized Continue Farxiga and Ozempic Assessment & Plan (02/13/2024 4:29 PM CDT): Chronic, well-controlled. Continue Ozempic 2 mg weekly Farxiga 10 mg Importance of diet and exercise was discussed Assessment & Plan (08/10/2023 3:52 PM SPECIAL SERVICE OFFICER): Chronic, well-controlled, with some postprandial hyperglycemia Continue [...] Farxita Assessment & Plan (07/19/2022 1:34 PM SPECIAL SERVICE OFFICER): Hba1c was Lab Results Component Value Date [...] today. Assessment & Plan (10/28/2021 1:43 PM SPECIAL SERVICE OFFICER): Chronic problem, not at goal. Increase NL [...] breakfast Assessment & Plan (09/27/2019 9:31 AM SPECIAL SERVICE OFFICER): A1c increased to 7.8. Pattern acceptable during [...] goal hba1c is under 7.0 to prevent mcc diabetes complications ( eye , kidney and [...] discussed. Assessment & Plan (08/07/2018 2:02 PM SPECIAL SERVICE OFFICER): A1c 8.1. Baseline BG reported at goal. [...] discussed. Assessment & Plan (10/05/2017 2:51 PM SPECIAL SERVICE OFFICER): Hba1c was . 9.6 . today, indicating [...] discussed. Assessment & Plan (07/20/2017 4:17 PM SPECIAL SERVICE OFFICER): A1c improved 8.7, ~ 2%. Mostly from [...] on file Legal Sex Female 10:22 AM SPECIAL SERVICE OFFICER Gender Identity Not on file Sexual Orientation Straight 08/07/2024 2: 11 PM SPECIAL SERVICE OFFICER Last Filed Vital Signs Vital Sign Reading Time Taken Comments Blood Pressure 100/68 08/07/2024 2:37 PM SPECIAL SERVICE OFFICER Pulse 66 08/07/2024 2:37 PM SPECIAL SERVICE OFFICER Temperature - - Respiratory Rate 17 08/07/2024 2:37 PM SPECIAL SERVICE OFFICER Oxygen Saturation - - Inhaled Oxygen Concentration - - Weight 109 kg (240 lb 6.4 oz) 08/07/2024 2:37 PM SPECIAL SERVICE OFFICER Height 170.2 cm (5' 7 ) 08/07/2024 2:37 PM SPECIAL SERVICE OFFICER Body Mass Index 37.65 08/07/2024 2:37 PM SPECIAL SERVICE OFFICER Plan of Treatment Not on file Procedures Procedure Name Priority Date/Time Associated Diagnosis Comments EGFR Routine 08/07/2024 3:23 PM SPECIAL SERVICE OFFICER Type 2 diabetes mellitus with hyperglycemia, with long-term current use of insulin (HCC) POCT HEMOGLOBIN A1C Routine 08/07/2024 2 :38 PM SPECIAL SERVICE OFFICER Type 2 diabetes mellitus with hyperglycemia, with long-term current use of insulin (HCC) HM DIABETES EYE EXAM Routine 10/11/2023 9:29 AM SPECIAL SERVICE OFFICER ALBUMIN CREATININE RATIO, URINE Routine 08/28/2023 7:38 AM SPECIAL SERVICE OFFICER LIPID PANEL Routine 08/10/2023 1:53 PM SPECIAL SERVICE OFFICER Hyperlipidemia associated with type 2 diabetes mellitus (HCC) from Last 3 Months or Most Recently Relevant to Health Maintenance Results * (ABNORMAL) eGFR (08/07/2024 3:23 PM SPECIAL SERVICE OFFICER) eGFR 35(L) >=60 mL/min/1. 73 m2 Comment: [...] last reviewed 2021. Blood 08/07/2024 3:23 PM SPECIAL SERVICE OFFICER 08/07/2024 6:55 PM SPECIAL SERVICE OFFICER Result [facility] Anthony Castillo MD LAB BLOOD ORDERABLES Final Resul t Performing Organization Address City/[facility] Co de Phone Number OLGA [phone] [address] Department [place] [address] * (ABNORMAL) POCT hemoglobin A1c (08/07/2024 2:38 PM SPECIAL SERVICE OFFICER) Hemoglobin A1C, POC 7.1 4.0 - 5.6 % Comment:None Capillary blood 08/07/2024 2 :38 PM SPECIAL SERVICE OFFICER Result [facility] Anthony Castillo MD POINT OF CARE TEST ORDERABLES Fi nal Result * (ABNORMAL) DIABETES EYE EXAM (10/11/2023 9:29 AM SPECIAL SERVICE OFFICER) Result [facility] Historical Naomi [facility] Final Result * (ABNORMAL) Albumin Creatinine Ratio, Urine (08/28/2023 7:38 AM SPECIAL SERVICE OFFICER) SCRIBED Creatinine, Urine 75.44 40 - 278 EXTERNAL LAB SCRIBED Microalbumin 13.4(A) 0.0 - 11.9 EXTERNAL LAB SCRIBED Microalb/Creat Ratio 0.18 0 - 0.20 EXTERNAL LAB Urine 08/28/2023 7:38 AM SPECIAL SERVICE OFFICER Result [facility] Historical Provider LAB URINE ORDERABLES Edit ed Result - Final EXTERNAL LAB * (ABNORMAL) Lipid panel (08/10/2023 1:53 PM SPECIAL SERVICE OFFICER) Cholesterol 164 30 - 199 mg/dL OLGA [...] 3 OLGA HORNER Blood 08/10/2023 1:53 PM SPECIAL SERVICE OFFICER 08/10/2023 7:31 PM SPECIAL SERVICE OFFICER us Anthony Castillo MD LAB BLOOD ORDERABLES Final Resul t OLGA [address] [address] Department [place] [address] from Last 3 Months or Most Recently Relevant to Health Maintenance Insurance IDPA [facility] MEDICARE ADVANTAGE [facility] MEDICARE ADVANTAGE IDPA Care Teams Solid Propellant Processor Relationship Specialty Start Date End Date Willian Mendoza MD PCP - General 02/18/16
--- OUTSIDE RECORDS SUMMARY | 2024-12-13 12:45 | XMS_ITS | Encounter Summary ---
Author Organization [facility] Address [facility] [place] [address] Care Team Providers Care Heating Equipment Repairer Name Role Phone Alexis Thurman MD Unavailable [phone] Willian Mendoza MD Primary Care Provider [phone] Cee Liu APRN, BREAKFAST COOK-C Unavailable Virgilio Meehan DO Primary Care Provider [phone] Mame Osborn MD Unavailable [phone] Encounter Details Date Type Department Care Team (Late st Contact Info) Description 07/04/2022 Abstract [facility] [address] [place] [address] Alexis Thurman MD [address] [place] [phone] Social History Tobacco Use Types Packs/Day Years [...] Coronavirus/COVID-19? No / Unsure 06/29/2022 5:44 AM ENTRY LEVEL PROJECT COORDINATOR documented as of this encounter Plan of Treatment Upcoming Encounters Date Type Department Care Team (Late st Contact Info) Description 05/12/2025 1:30 PM CDT Office Visit [facility] [address] [place] [address] Cee Liu APRN, BREAKFAST COOK-C [address] [facility] [address] [place] [address] documented as of this encounter Procedures Procedure [...] on filedocumented in this encounter Care Teams Heating Equipment Repairer Relationship Specialty Start Date End Date Willian Mendoza MD [address] [place] [address] PCP - General INTERNAL MEDICINE 09/14/18 09/07/22 Virgilio Meehan DO [address] [place] [address] PCP - General FAMILY PRACTICE 09/08/22 Alexis Thurman MD [address] [place] [address] [place] [facility] CARDIOVASCULAR DISEASE 09/14/18 04/01/24 Cee Liu APRN, BREAKFAST COOK-C [address] [facility] [address] [place] [address] NURSE PRACTITIONER 05/27/22 Mame Osborn MD [address] [place] [address] INTERVENTIONAL CARDIOLOGY 05/10/24 documented as of this encounter
--- OUTSIDE RECORDS SUMMARY | 2024-12-13 12:45 | XMS_ITS | Clinical Summary ---
Author Organization [facility] Address [facility] [place] [address] Care Team Providers Care Topper Press Operator Automatic Name Role Phone Cee Liu APRN TOOL MACHINIST-C Unavailable Virgilio Meehan DO Primary Care Provider [phone] Mame Osborn MD Unavailable [phone] Allergies Active Allergy Reactions Criticality Noted Date Comments Amoxicillin-Pot Clavulanate Diarrhea 05/27/2022 Metformin Other (see comment) 05/27/2022 Renal function impairment Pantoprazole Other (see comment) 05/27/2022 Hypomagnesemia Medications CPAP DME DEVICE CPAPCPAP [id number] via IV [id number] -[id number] -2018Lefty Morrissey 8 Active pravastatin (PRAVACHOL) 20 [...] mouth 2 (two) times daily. Active CREON 95794-825507 units capsule Take 2 capsules (72,000 units [...] check lipid panel Hypertension associated with diabetes ([facility]) 09/19/2012 Overview (10/22/2018): Overview: Unspecified essential hypertension Last Assessment & Plan: Controlled on current medications. Type 2 diabetes mellitus ([facility]) 06/28 Overview (10/22/2018): Overview: DMII WO CMP [...] Type Department Care Team Description 11/12/2024 Telephone [facility] [address] [place] [id number] Ella Witt MD Results 11/12/2024 Orders Only [facility] [address] [place] [address] Ella Witt MD 11/12/2024 Abstract [facility] [address] [place] [address] Ella Witt MD 11/04/2024 11:15 AM CDT - 11/04/2024 11:59 PM CDT Hospital Encounter [facility] [address] [place] [address] Ella Witt MD Discharge Disposition: Home or Self Care (Routine Discharge) 11/04/2024 10:30 AM CDT Office Visit [facility] [address] [place], [place] [address] [place] [address] Gonzalez Wilson MD Bhatti, Vikrampal S, MD CKD Follow-up (Pt is having some low back pain for the past 3 or 4 days.) 11/04/2024 Scan [facility] [address] [place] [address] Scanned, Doc Cikda 11/04/2024 Orders Only [facility] [place] [address] Ella Witt MD 11/04/2024 Travel 10/29/2024 Scan [facility] [address] [place] [phone] Scanned, Doc Cikda Lab (SCAN) from Last [...] 36.2 C (97.2 F) 06/29/2022 6:18 AM PARALEGALS Respiratory Rate 16 05/10/2024 12:4 0 PM CDT Oxygen Saturation 100% 11/02/2023 2:52 PM CDT Inhaled Oxygen Concentration - - Weight 104.9 kg (231 lb 3.2 oz) 025 10:46 AM CDT Height 170.2 cm (5' 7 ) 11/04/2024 10:4 6 AM CDT Body Mass Index 36.21 11/04/2024 10:46 AM CDT Plan of Treatment Upcoming Encounters Date Type Department Care Team (Late st Contact Info) Description 05/12/2025 1:30 PM CDT Office Visit [facility] [address] [place] [phone] Cee Liu, EXOTIC DANCER, TOOL MACHINIST-C [address] [facility] [address] [place] [address] Health Maintenance Due Date Last Done Comments [...] 2007 Lipid Panel 07/23/2010 07/23/2009 Pneumococcal Vaccine: 50+ Years (2 of 2 - PCV) 04/02/2016 04/02/2015, 08/21/2010 Zoster Vaccines (2 of 2) 06/02/2021 04/07/2021 COVID-19 Vaccine ( season) 2024 06/21/2021, 10/03/2020, 09/05/2020 DTaP, Tdap [...] this topic Medical Devices Implanted Type Area Millinery Copyist Device Identifier Shelf Expiration Date Model / Serial / Lot Stent Ureteral [place] Sci Contour 6fr X 26cm - [id number] Implanted:Qty : 1 on 06/28/2021 by Ryan Vinson MD at [facility] Stent Right: Ureter [place] MASOOD [id number] 04/12/2024 [id number] / / [id number] Procedures Procedure Name Priority Date/Time Associated Diagnosis Comments HC URINALYSIS AUTO W/MICRO Routine 11/04/2024 11:24 AM CDT Chronic kidney disease, stage 3b (CMS/HCC) OUTSIDE LAB (SCAN ORDER) Routine 10/29/2024 LIPID PANEL Routine 07/23/2009 12:00 AM PARALEGALS from Last 3 Months or Most Recently Relevant to Health Maintenance Results * (ABNORMAL) URINALYSIS (11/04/2024 11:24 AM CDT) COLOR (U) YELLOW 11/04/2024 11:52 AM CDT [facility] TRANSPARENCY CLEAR 11/04/2024 11:52 AM CDT [facility] SPECIFIC GRAVITY (U) 1.020 1.000 - 1.025 11/04/2024 11:52 AM CDT [facility] U PH 5.5 5.0 - 8.0 11/04/2024 11:52 AM CDT [facility] LEUKOCYTES (U) TRACE(A) NEGATIVE 11/04/2024 11:52 AM CDT [facility] NITRITES NEGATIVE NEGATIVE 11/04/2024 11:52 AM CDT [facility] PROTEIN RANDOM (U) NEGATIVE NEGATIVE 11/04/2024 11:52 AM CDT [facility] GLUCOSE (U) 2+(A) NEGATIVE 11/04/2024 11:52 AM CDT [facility] KETONES MG/DL (U) NEGATIVE NEGATIVE 11/04/2024 11:52 AM CDT [facility] UROBILINOGEN 0.2 <1.0 EU/DL 11/04/2024 11:52 AM CDT [facility] BILIRUBIN (U) NEGATIVE NEGATIVE 11/04/2024 11:52 AM CDT [facility] BLOOD (U) NEGATIVE NEGATIVE 11/04/2024 11:52 AM CDT [facility] WBC/HPF 0-5 0 - 5 /HPF 11/04/2024 11:52 AM CDT [facility] RBC/HPF 0-5 0 - 5 /HPF 11/04/2024 11:52 AM CDT [facility] EPI/LPF FEW /LPF 11/04/2024 11:52 AM CDT [facility] BACTERIA (U) 1+ /HPF 11/04/2024 11:52 AM CDT [facility] URINE SPECIMEN OBTAINED BY CLEAN CATCH PROCEDURE / Unknown 11/04/2024 11:24 AM CDT Ella Witt MD URINE ORDERABLES Final Res ult [facility] [place] [address], * OUTSIDE LAB (10/29/2024) 10/29/2024 us Doc Cikda Scanned SCANNING Final Result [facility] * LIPID PANEL (07/23/2009 12:00 AM PARALEGALS) TRIGLYCERIDES 132 0 - 150 mg/dl MEDINFORMATIX TO EPIC CONVERSION CHOLESTEROL 180 0 - 200 mg/dl MEDINFORMAT[employer] TO EPIC CONVERSION HDL 61 40 - 59 mg/dl MEDIN[employer] TO EPIC CONVERSION LDL CONVERSION 93 0 - 100 mg/dl MEDINFORMAT[employer] TO EPIC CONVERSION CHOL/HDL RATIO 3.0 <4.0 (Calc) MEDINFORMATIX TO EPIC CONVERSION 07/23/2009 07/23/2009 Narrative MEDINFORMATIX TO EPIC CONVERSION - 07/23/2009 1:31 PM PARALEGALS Reviewed by ANGELA Jul 23 2009 1:33:00:000PM us Generic Conversion Md [facility] Final R esult MEDINFORMATIX TO EPIC CONVERSION from Last 3 Months or Most Recently Relevant to Health Maintenance Insurance MEDICAID DEPT OF [address] MEDICAID [facility] MEDICAID Advance Directives * Full Code (Latest Code Status on File) Date Activated Date Inactivated Comments 06/29/2022 9:52 AM 06/29/2022 1:43 PM Care Teams Topper Press Operator Automatic Relationship Specialty Start Date End Date Virgilio Meehan DO [address] [place] [address] PCP - General FAMILY PRACTICE 09/08/22 Cee Liu APRN, TOOL MACHINIST-C [address] [place] [address] [address] [place] [address] NURSE PRACTITIONER 05/27/22 Mame Osborn MD [address] [place] [address] INTERVENTIONAL CARDIOLOGY 05/10/24
--- OUTSIDE RECORDS SUMMARY | 2024-12-13 12:45 | XMS_ITS ---
Author Organization [facility] Address [address] [place], [place] [address] Care Team Providers Care Manager Clinical Applications Name Role Phone MIRIAN MOSHER Unavailable [phone] Virgilio Meehan Unavailable Unavailable REASON FOR VISIT [...] Medicationnortriptyline 50 MG Oral Capsule *Reorder from [facility] for eRx and Interaction Alerts* 04/07/20 14 Active esomeprazole 20 MG Injection INTRAVENOUS esomeprazole 20 MG InjectionOriginal Medicationesomeprazole 20 MG Injection *Reorder from [facility] for eRx and Interaction Alerts* 04/07/20 14 Active levothyroxine sodium 0.1 MG Oral Capsule ORAL levothyroxine sodium 0.1 MG Oral CapsuleOriginal Medicationlevothyroxine sodium 0.1 MG Oral Capsule *Reorder from [facility] for eRx and Interaction Alerts* 04/07/20 14 Active propranolol hydrochloride 40 MG Oral Tablet ORAL propranolol hydrochloride 40 MG Oral TabletOriginal Medicationpropranolol hydrochloride 40 MG Oral Tablet *Reorder from [facility] for eRx and Interaction Alerts* 04/07/20 14 Active verapamil hydrochloride 40 MG Oral Tablet ORAL verapamil hydrochloride 40 M G Oral TabletOriginal Medicationverapamil hydrochloride 40 MG Oral Tablet *[facility]* 04/07/20 14 Active ciclopirox 80 MG/ML Topical Solution CUTANEOUS ciclopirox 80 MG/ML Topical SolutionOriginal Medicationciclopirox 80 MG/ML Topical Solution *Reorder from [facility] for eRx and Interaction Alerts* 04/20/20 12 Active cinnamon bark 500 MG Oral Capsule ORAL cinnamon bark 500 MG Oral CapsuleOriginal Medicationcinnamon bark 500 MG Oral Capsule *Reorder from [facility] for eRx and Interaction Alerts* 04/07/20 14 Active 3 ML insulin glargine 100 UNT/ML Pen Injector [Lantus] 3 ML insulin glargine 100 UNT/ML Pen Injector [Lantus]Original Medication3 ML insulin glargine 100 UNT/ML Pen Injector [Lantus] *Reorder from [facility] for eRx and Interaction Alerts* 04/07/20 14 Active cholecalciferol 0.025 MG Oral Capsule ORAL cholecalciferol 0.025 MG Ora l CapsuleOriginal Medicationcholecalciferol 0.025 MG Oral Capsule *Reorder from [facility] for eRx and Interaction Alerts* 04/07/20 14 Active Losartan Potassium 100 MG Oral Tablet ORAL losartan potassium 100 MG Oral TabletOriginal Medicationlosartan potassium 100 MG Oral Tablet *Reorder from [facility] for eRx and Interaction Alerts* 04/07/20 14 Active Allopurinol 300 MG Oral Tablet ORAL allopurinol 300 MG Oral TabletOriginal Medicationallopurinol 300 MG Oral Tablet *Reorder from [facility] for eRx and Interaction Alerts* 04/07/20 14 Active Pravastatin Sodium 10 MG Oral Tablet ORAL pravastatin sodium 10 MG Ora l TabletOriginal Medicationpravastatin sodium 10 MG Oral Tablet *Reorder from [facility] for eRx and Interaction Alerts* 04/07/20 14 Active Spironolactone 25 MG Oral Tablet ORAL spironolactone 25 MG Oral TabletOriginal Medicationspironolactone 25 MG Oral Tablet *Reorder from [facility] for eRx and Interaction Alerts* 04/07/20 14 Active Nabumetone 500 MG Oral Tablet ORAL nabumetone 500 MG Oral TabletOriginal Medicationnabumetone 500 MG Oral Tablet *Reorder from [facility] for eRx and Interaction Alerts* 06/29/20 12 Active Encounters Encounter Location Date Provider Diagnosis [facility] [address] [place], [place] [id number] 10/10/2024 MIRIAN MOSHER Tinea unguium B35.1 ; Acquired 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 ; Atherosclerosis of [place] arteries of extremities with intermittent claudication, bilateral [...] utilizing a #15 blade 10/10/2024 Atherosclerosis of walk[place] river arteries of extremities with intermittent claudication, bilateral [...] sooner if problems develop. Provider Name:WILFREDO MARTIN, 01/02/2025 02:10:00 PM, [address] [place] [address], [phone], Progress Notes * MATEUSZ MONROE ADOB:[birth year] (59 yo F)Acc No.[id number]:10/10/2024 Patient: MATEUSZ ZHU Provider: Roosevelt Mosher DPM :1965 A ge:58 Y S ex:Female Date:10/10/2024 Address:[address] [place] [address] Subjective: * Chief Complaints: * Jerrica chung [...] Medicationallopurinol 300 MG Oral Tablet *Reorder from [facility] for eRx and Interaction Alerts*Spironolactone 25 MG Oral Tablet ORAL , Notes to Pharmacist: spironolactone 25 MG Oral TabletOriginal Medicationspironolactone 25 MG Oral Tablet *Reorder from [facility] for eRx and Interaction Alerts*Nabumetone 500 MG Oral Tablet ORAL , Notes to Pharmacist: nabumetone 500 MG Oral TabletOriginal Medicationnabumetone 500 MG Oral Tablet *[facility]*Pravastatin Sodium 10 MG Oral Tablet ORAL , Notes to Pharmacist: pravastatin sodium 10 MG Oral TabletOriginal Medicationpravastatin sodium 10 MG Oral Tablet *Reorder from [facility] for eRx and Interaction Alerts*Losartan Potassium 100 MG Oral Tablet ORAL , Notes to Pharmacist: losartan potassium 100 MG Oral TabletOriginal Medicationlosartan potassium 100 MG Oral Tablet *Reorder from [facility] for eRx and Interaction Alerts*3 ML insulin glargine 100 UNT/ML Pen Injector [Lantus] , Notes to Pharmacist: 3 ML insulin glargine 100 UNT/ML Pen Injector [Lantus]Original Medication3 ML insulin glargine 100 UNT/ML Pen Injector [Lantus] *Reorder from [facility] for eRx and Interaction Alerts*cholecalciferol 0.025 MG Oral Capsule ORAL , Notes to Pharmacist: cholecalciferol 0.025 MG Oral CapsuleOriginal Medicationcholecalciferol 0.025 MG Oral Capsule *Reorder from [facility] for eRx and Interaction Alerts*ciclopirox 80 MG/ML Topical Solution CUTANEOUS , Notes to Pharmacist: ciclopirox 80 MG/ML Topical SolutionOriginal Medicationciclopirox 80 MG/ML Topical Solution *Reorder from [facility] for eRx and Interaction Alerts*cinnamon bark 500 MG Oral Capsule ORAL , Notes to Pharmacist: cinnamon bark 500 MG Oral CapsuleOriginal Medicationcinnamon bark 500 MG Oral Capsule *Reorder from [facility] for eRx and Interaction Alerts*esomeprazole 20 MG Injection INTRAVENOUS , Notes to Pharmacist: esomeprazole 20 MG InjectionOriginal Medicationesomeprazole 20 MG Injection *Reorder from [facility] for eRx and Interaction Alerts*levothyroxine sodium 0.1 MG Oral Capsule ORAL , Notes to Pharmacist: levothyroxine sodium 0.1 MG Oral CapsuleOriginal Medicationlevothyroxine sodium 0.1 MG Oral Capsule *Reorder from [facility] for eRx and Interaction Alerts*nortriptyline 50 MG Oral Capsule ORAL , Notes to Pharmacist: nortriptyline 50 MG Oral CapsuleOriginal Medicationnortriptyline 50 MG Oral Capsule *Reorder from [facility] for eRx and Interaction Alerts*propranolol hydrochloride 40 MG Oral Tablet ORAL , Notes to Pharmacist: propranolol hydrochloride 40 MG Oral TabletOriginal Medicationpropranolol hydrochloride 40 MG Oral Tablet *Reorder from [facility] for eRx and Interaction Alerts*verapamil hydrochloride 40 MG Oral Tablet ORAL , Notes to Pharmacist: verapamil hydrochloride 40 MG Oral TabletOriginal Medicationverapamil hydrochloride 40 MG Oral Tablet *Reorder from [facility] for eRx and Interaction Alerts*Medication List reviewed and reconciled with the patientTaking Allopurinol 300 MG Oral Tablet ORAL , Notes to Pharmacist: allopurinol 300 MG Oral TabletOriginal Medicationallopurinol 300 MG Oral Tablet *Reorder from [facility] for eRx and Interaction Alerts*Taking Spironolactone 25 MG Oral Tablet ORAL , Notes to Pharmacist: spironolactone 25 MG Oral TabletOriginal Medicationspironolactone 25 MG Oral Tablet *Reorder from [facility] for eRx and Interaction Alerts*Taking Nabumetone 500 MG Oral Tablet ORAL , Notes to Pharmacist: nabumetone 500 MG Oral TabletOriginal Medicationnabumetone 500 MG Oral Tablet *Reorder from [facility] for eRx and Interaction Alerts*Taking Pravastatin Sodium 10 MG Oral Tablet ORAL , Notes to Pharmacist: pravastatin sodium 10 MG Oral TabletOriginal Medicationpravastatin sodium 10 MG Oral Tablet *Reorder from [facility] for eRx and Interaction Alerts*Taking Losartan Potassium 100 MG Oral Tablet ORAL , Notes to Pharmacist: losartan potassium 100 MG Oral TabletOriginal Medicationlosartan potassium 100 MG Oral Tablet *Reorder from [facility] for eRx and Interaction Alerts*Taking 3 ML insulin glargine 100 UNT/ML Pen Injector [Lantus] , Notes to Pharmacist: 3 ML insulin glargine 100 UNT/ML Pen Injector [Lantus]Original Medication3 ML insulin glargine 100 UNT/ML Pen Injector [Lantus] *Reorder from [facility] for eRx and Interaction Alerts*Taking cholecalciferol 0.025 MG Oral Capsule ORAL , Notes to Pharmacist: cholecalciferol 0.025 MG Oral CapsuleOriginal Medicationcholecalciferol 0.025 MG Oral Capsule *Reorder from [facility] for eRx and Interaction Alerts*Taking ciclopirox 80 MG/ML Topical Solution CUTANEOUS , Notes to Pharmacist: ciclopirox 80 MG/ML Topical SolutionOriginal Medicationciclopirox 80 MG/ML Topical Solution *Reorder from [facility] for eRx and Interaction Alerts*Taking cinnamon bark 500 MG Oral Capsule ORAL , Notes to Pharmacist: cinnamon bark 500 MG Oral CapsuleOriginal Medicationcinnamon bark 500 MG Oral Capsule *Reorder from [facility] for eRx and Interaction Alerts*Taking esomeprazole 20 MG Injection INTRAVENOUS , Notes to Pharmacist: esomeprazole 20 MG InjectionOriginal Medicationesomeprazole 20 MG Injection *Reorder from [facility] for eRx and Interaction Alerts*Taking levothyroxine sodium 0.1 MG Oral Capsule ORAL , Notes to Pharmacist: levothyroxine sodium 0.1 MG Oral CapsuleOriginal Medicationlevothyroxine sodium 0.1 MG Oral Capsule *Reorder from [facility] for eRx and Interaction Alerts*Taking nortriptyline 50 MG Oral Capsule ORAL , Notes to Pharmacist: nortriptyline 50 MG Oral CapsuleOriginal Medicationnortriptyline 50 MG Oral Capsule *Reorder from [facility] for eRx and Interaction Alerts*Taking propranolol hydrochloride 40 MG Oral Tablet ORAL , Notes to Pharmacist: propranolol hydrochloride 40 MG Oral TabletOriginal Medicationpropranolol hydrochloride 40 MG Oral Tablet *Reorder from [facility] for eRx and Interaction Alerts*Taking verapamil hydrochloride 40 MG Oral Tablet ORAL , Notes to Pharmacist: verapamil hydrochloride 40 MG Oral TabletOriginal Medicationverapamil hydrochloride 40 MG Oral Tablet *Reorder from [facility] for eRx and Interaction Alerts*Medication List [...] - L85.1 3 . A therosclerosis of walk[place] river arteries of extremities with intermittent claudication, bilateral [...] develop.) * Billing Information: * Visit Code: 11517 Office Visit, Est Pt., Level 3. * Procedure Codes: * Sign off status: Completed true * Provider: Roosevelt Mosher DPM Date: 0 10/10/2024 Generated for Curt Reilly/Jose on: 0 12/13/2024 12:45 PM CDT History and Physical Notes * [...]
--- OUTSIDE RECORDS SUMMARY | 2024-12-13 12:45 | XMS_ITS ---
Author Organization [facility] Address [address] [facility] [address] [place], [place] [id number] Care Team Providers Care Input Output Clerk Name Role Phone MIRIAN MOSHER [phone] Virgilio Meehan Unavailable Unavailable REASON FOR VISIT DIABETIC SHOES AND INSERTS Encounters Encounter Location Date Provider Diagnosis [facility] [address] [facility] [address] [place], [place] [id number] 12/09/2024 MIRIAN MOSHER Plan Of Treatment Next Appt Details Provider Name:WILFREDO MARTIN, 01/02/2025 02:10:00 PM, [address] [place] [address], [id number], Progress Notes * MATEUSZ MONROE ADOB:[birth year] (59 yo F)Acc No.[id number]:12/09/2024 Patient: Zay AGATHA MATEUSZ Gutierrez :1965 A ge:59 Y S ex:Female Address:[address] [place] [address], [address] * true * Date: Generated for Printi ng/Faxing/eTransmitting on: 0 12/13/2024 12:44 PM CDT
--- OUTSIDE RECORDS SUMMARY | 2024-12-13 12:45 | XMS_ITS | Encounter Summary ---
Author Organization [facility] Address [facility] [place] [address] Care Team Providers Care Ironing Machine Operator Name Role Phone Alexis Thurman MD Unavailable [phone] Cee Liu APRN, NP-C Unavailable Virgilio Meehan DO Primary Care Provider Mame Osborn MD Unavailable [phone] Encounter Details Date Type Department Care Team (Late Contact Info) Description [facility]2022 [facility] [address] [place] [phone] Alexis Thurman MD [address] [place] [address] Social History Tobacco Use Types [...] Coronavirus/COVID-19? No / Unsure 09/08/2022 8:48 AM ADVANCED DEVELOPER documented as of this encounter Plan of Treatment Upcoming Encounters Date Type Department Care Team (Late Contact Info) Description 05/12/2025 1:30 PM CDT Office Visit [facility] [address] [place] [address] Cee Liu APRN, MOLECULAR BIOLOGY DIRECTOR-C [address] [facility] [address] [place] [phone] documented as of this encounter Visit Diagnoses Not on filedocumented in this encounter Care Teams Ironing Machine Operator Relationship Specialty Start Date End Date Virgilio Meehan DO [address] [place] [address] PCP - General FAMILY PRACTICE 09/08/22 Alexis Thurman MD [address] [place] [phone] [place] [facility] CARDIOVASCULAR DISEASE 09/14/18 04/01/24 Cee Liu APRN, MOLECULAR BIOLOGY DIRECTOR-C [address] [facility] [address] [phone] NURSE PRACTITIONER 05/27/22 Mame Osborn MD [address] [place] [address] INTERVENTIONAL CARDIOLOGY 05/10/24 documented as of this encounter
--- OUTSIDE RECORDS SUMMARY | 2024-12-13 12:45 | XMS_ITS | Encounter Summary ---
Author Organization [facility] Address [facility] [place] [address] Care Team Providers Care Barrel Raiser Name Role Phone Cee Liu APRN, PROFESSOR OF FOREST PLANNING-C Unavailable Virgilio Meehan DO Primary Care Provider [phone] Mame Osborn MD Unavailable [phone] Encounter Details Date Type Department Care Team (Late Contact Info) Description 11/12/2024 Abstract [facility] [address] [place] [address] Ella Witt MD [address] [place] [address] Social History Tobacco Use Types Packs/Day Years [...] Description 05/12/2025 1:30 PM CDT Office Visit [facility] eld [address] [place] [address] Cee Liu APRN, PROFESSOR OF FOREST PLANNING-C [address] [facility] [address] [place] [phone] documented as of this encounter Visit Diagnoses Not on filedocumented in this encounter Care Teams Barrel Raiser Relationship Specialty Start Date End Date Virgilio Meehan DO [address] [place] [address] PCP - General FAMILY PRACTICE 09/08/22 Cee Liu, FREIGHT DELIVERY DRIVER, PROFESSOR OF FOREST PLANNING-C [address] [facility] [address] [place] [phone] NURSE PRACTITIONER 05/27/22 Mame Osborn MD [address] [place] [address] INTERVENTIONAL CARDIOLOGY 05/10/24 documented as of this encounter
--- OUTSIDE RECORDS SUMMARY | 2024-12-13 12:45 | XMS_ITS | Clinical Summary ---
Author Organization [facility] Address [address] [place] [id number] Care Team Providers Care Market News Reporter Name Role Phone Willian Mendoza MD Primary Care Provider [phone] Allergies Active Allergy Reactions Criticality Noted Date [...] mouth 2 (two) times a day Active lmeuzwxbmzaq-Uz-ew on-minerals tablet Take 1 tablet by mouth [...] hyperglycemia, with long-term current use of insulin ([facility]) USE FOR TESTING FOUR TIMES A DAY DIRECTED 400 each 3 03/21/20 22 Active pen needle, diabetic (TRUEplus Pen Needle) 31 gauge x 3/16 needle Use to inject insulin up to 5 times daily 450 each 2 03/21/20 22 Active alcohol swabs (BD Alcohol Swabs) pads, medicatedIndicatio ns:Type 2 diabetes mellitus with hyperglycemia, with long-term current use of insulin ([facility]) USE DIRECTED 4 TIMES DAILY 400 each [...] 1 tablet (100 mcg total) by mouth 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 Continue levothyroxine Update TFTs Assessment & Plan (08/10/2023 3:53 PM [facility]TERS): Chronic, well-controlled Importance of taking levothyroxine on [...] 04/17/2018 Assessment & Plan (08/07/2024 5:51 PM [facility]TERS): Chronic, stable Update lipid profile Continue statin therapy Assessment & Plan (08/10/2023 3:53 PM [facility]): Chronic, well-controlled Continue statin therapy with Pravachol Assessment & Plan (01/17/2023 1:59 PM CDT): Chronic, well controlled Low fat Low cholesterol diet Exercise Continue statin therapy with Pravachol Assessment & Plan (03/17/2022 9:47 AM CDT): Chronic problem. On statin therapy, no changes. Assessment & Plan (10/28/2021 1:21 PM [facility]): Chronic problem. On statin therapy, no changes. [...] Pravachol Assessment & Plan (09/27/2019 9:29 AM [employer]): LDL at goal. Trigs elevated. Continue statin [...] therapy Assessment & Plan (08/07/2018 1:59 PM [facility]): At goal on current medications. Assessment & [...] dicussed Assessment & Plan (09/27/2019 9:29 AM [facility]): Continues to do well with wt loss [...] adjusted. Assessment & Plan (08/07/2018 1:59 PM [facility]): Continues to gain weight. Little attempt at diet and exercise. Reviewed importance of avoiding juice, soda, high fat, high carb foods. Assessment & Plan (10/05/2017 2:49 PM [facility]): Diet and exercise were discussed. 1200 Calorie diet advised 45-60 min aerobic / resistance exercise most days of the week recommended. Bariatric surgery medically indicated Assessment & Plan (07/20/2017 4:17 PM [facility]): Importance of following diet and exercising discussed. [...] changes. Assessment & Plan (10/28/2021 1:21 PM [facility]): Controlled on current medications, no changes. Assessment [...] microalbumin Assessment & Plan (09/27/2019 9:29 AM [facility]): Controlled on current medications. Continue plan. Assessment & Plan (06/06/2019 2:49 PM CDT): Controlled on current medications. Continue plan. Assessment & Plan (11/01/2018 2:04 PM CDT): Goal blood pressure is less than 140/85 Low salt diet recommended Daily aerobic exercise Continue current meds, including ALYCE-I or ARB Assessment & Plan (08/07/2018 2:00 PM [employer]): Controlled on current medications. Assessment & Plan (04/17/2018 2:07 PM CDT): Goal blood pressure is less than 140/85 Low salt diet recommended Daily aerobic exercise Continue current meds, including AYLCE-I or ARB Assessment & Plan (10/05/2017 2:50 PM [facility]): Goal blood pressure is less than 140/85 Low salt diet recommended Daily aerobic exercise Continue current meds, including ALYCE-I or ARB Assessment & Plan (07/20/2017 4:18 PM [facility]): Controlled on current medications. Assessment & Plan (04/06/2017 4:28 PM CDT): At goal on current medications. Hyperlipidemia 09/19/2012 Overview (11/24/2016): HYPERLIPIDEMIA NEC/NOS Assessment & Plan (06/06/2019 2:49 PM CDT): Lipid panel ordered Assessment & Plan (07/20/2017 4:18 PM [facility]): Will check lipid panel Assessment & Plan (04/06/2017 4:28 PM CDT): Check labs and focus on low fat foods Furuncle of trunk 06/28/2012 Overview (11/23/2016): Carbuncle and furuncle of trunk Type 2 diabetes mellitus 06/28/2012 Overview (11/24/2016): DMII WO CMP UNCNTRLD Assessment & Plan (08/07/2024 5:50 PM [facility]): Chronic, stable Diet and exercise were emphasized Continue Farxiga and Ozempic Assessment & Plan (02/13/2024 4:29 PM CDT): Chronic, well-controlled. Continue Ozempic 2 mg weekly Farxiga 10 mg Importance of diet and exercise was discussed Assessment & Plan (08/10/2023 3:52 PM [facility]): Chronic, well-controlled, with some postprandial hyperglycemia Continue [...] Farxita Assessment & Plan (07/19/2022 1:34 PM [facility]): Hba1c was Lab Results Component Value Date [...] today. Assessment & Plan (10/28/2021 1:43 PM [facility]): Chronic problem, not at goal. Increase NL [...] breakfast Assessment & Plan (09/27/2019 9:31 AM [facility]): A1c increased to 7.8. Pattern acceptable during [...] goal hba1c is under 7.0 to prevent halfway diabetes complications ( eye , kidney and [...] discussed. Assessment & Plan (08/07/2018 2:02 PM [facility]): A1c 8.1. Baseline BG reported at goal. [...] discussed. Assessment & Plan (10/05/2017 2:51 PM [facility]): Hba1c was . 9.6 . today, indicating [...] discussed. Assessment & Plan (07/20/2017 4:17 PM [facility]): A1c improved 8.7, ~ 2%. Mostly from [...] Type Department Care Team Description 11/28/2024 Telephone [facility] [address] [phone] Erika Mandel GAMMA RAY OPERATOR 11/21/2024 Telephone [facility] [address] [phone] Anthony Castillo MD PA in [facility] Dexcom G7 sensor 10/18/2024 Telephone [facility] [address] [phone] Anthony Castillo MD from Last 3 Months Surgical History Surgery Date Site/Laterality Comments BARIATRIC SURGERY 08/21/2018 - 08/20/2019 Gastric sleeve at [facility] Medical History Medical History Date Comments Hyperlipidemia [...] on file Legal Sex Female 10:22 AM [facility] Gender Identity Not on file Sexual Orientation Straight 08/07/2024 2: 11 PM [facility] Obstetrics History Last Filed Vital Signs Vital Sign Reading Time Taken Comments Blood Pressure 100/68 08/07/2024 2:37 PM [facility] Pulse 66 08/07/2024 2:37 PM [facility] Temperature - - Respiratory Rate 17 08/07/2024 2:37 PM [facility] Oxygen Saturation - - Inhaled Oxygen Concentration - - Weight 109 kg (240 lb 6.4 oz) 08/07/2024 2:37 PM [facility] Height 170.2 cm (5' 7 ) 08/07/2024 2:37 PM [facility] Body Mass Index 37.65 08/07/2024 2:37 PM [facility] Plan of Treatment Health Maintenance Due Date Last Done Comments Breast Cancer Screening-Mammogram 1967 Cervical Cancer Screening 1967 Colon Cancer Screening-Colonoscopy 1965 Hepatitis C Screening 1967 Hepatitis B Screening 10/25/1985 Regular Well Visit/Exam 18-64 10/25/1985 Pneumococcal vaccine <65 (2 of 2 - PCV) 04/02/2016 04/02/2015 Zoster Vaccine (1 of 2) 10/25/2017 Foot Exam 01/18/2024 01/17/2023, 10/19, 05/28/2020, Additional history exists Lipid Panel 08/10/2024 08/10/2023, 02/19, 11/29/2020, Additional history exists Albumin Creatinine Ratio, Urine 08/28/2024 08/28/2023, 12/26/2022, 03/17/2022, Additional history exists Dilated Eye Exam 10/11/2024 10/11/2023, , 09/03/2020, Additional history exists Hemoglobin A1C 02/05/2025 08/07/2024, 01/20, 08/10/2023, Additional history exists Influenza Vaccine (Season Ended) 2025 05/13/2019, 05/17/2018, 04/20/2017, Additional history exists Depression Screening 08/07/2025 08/07/2024, 02/13/2024, 01/17/2023, Additional history exists eGFR 08/07/2025 08/07/2024, 03/2024, 08/10/2023, Additional history exists DTaP/Tdap/Td Vaccine (6 - Td or Tdap) 04/23/2027 04/23/2017, 07/25/2006, 11/07/1969, Additional history exists Procedures Procedure Name Priority Date/Time Associated Diagnosis Comments EGFR Routine 08/07/2024 3:23 PM [facility] Type 2 diabetes mellitus with hyperglycemia, with long-term current use of insulin (HCC) POCT HEMOGLOBIN A1C Routine 08/07/2024 2 :38 PM [facility] Type 2 diabetes mellitus with hyperglycemia, with long-term current use of insulin (HCC) HM DIABETES EYE EXAM Routine 10/11/2023 9:29 AM [facility] ALBUMIN CREATININE RATIO, URINE Routine 08/28/2023 7:38 AM [facility] LIPID PANEL Routine 08/10/2023 1:53 PM [facility] Hyperlipidemia associated with type 2 diabetes mellitus (HCC) from Last 3 Months or Most Recently Relevant to Health Maintenance Results * (ABNORMAL) eGFR (08/07/2024 3:23 PM [facility]) eGFR 35(L) >=60 mL/min/1. 73 m2 Comment: [...] last reviewed 2021. Blood 08/07/2024 3:23 PM [facility] 08/07/2024 6:55 PM [facility] Result [facility] Anthony Castillo MD LAB BLOOD ORDERABLES Final Resul t [facility] [id number] [address] Department [place] [address] * (ABNORMAL) POCT hemoglobin A1c (08/07/2024 2:38 PM [facility]) Hemoglobin A1C, POC 7.1 4.0 - 5.6 % Comment:None Capillary blood 08/07/2024 2 :38 PM [facility] Result [facility] Anthony Castillo MD POINT OF CARE TEST ORDERABLES Fi nal Result * (ABNORMAL) DIABETES EYE EXAM (10/11/2023 9:29 AM [facility]) Isis Salgado MD HEALTH MAINTENANCE Final Result * (ABNORMAL) Albumin Creatinine Ratio, Urine (08/28/2023 7:38 AM [facility]) SCRIBED Creatinine, Urine 75.44 40 - 278 EXTERNAL LAB SCRIBED Microalbumin 13.4(A) 0.0 - 11.9 EXTERNAL LAB SCRIBED Microalb/Creat Ratio 0.18 0 - 0.20 EXTERNAL LAB Urine 08/28/2023 7:38 AM [facility] us Historical Provider LAB URINE ORDERABLES Edit ed Result - Final EXTERNAL LAB * (ABNORMAL) Lipid panel (08/10/2023 1:53 PM [facility]) Cholesterol 164 30 - 199 mg/dL OLGA Comment: Interpretive Data Ages < [...] 3 OLGA HORNER Blood 08/10/2023 1:53 PM [facility] 08/10/2023 7:31 PM [facility] us Anthony Castillo MD LAB BLOOD ORDERABLES Final Resul t OLGA [facility]NER [id number] Department [place] [address] from Last 3 Months or Most Recently Relevant to Health Maintenance Insurance IDIN [facility] MEDICARE ADVANTAGE [facility] MEDICARE ADVANTAGE IDPA Care Teams Market News Reporter Relationship Specialty Start Date End Date Willian Mendoza MD PCP - General 02/18/16
--- OUTSIDE RECORDS SUMMARY | 2024-12-13 12:45 | XMS_ITS | Patient Health Record ---
Author Organization [facility] Address [address] [place], [place] [id number] Care Team Providers Care Lace Burn Out Tender Name Role Phone MIRIAN MOSHER Unavailable [phone] Virgilio Meehan Unavailable Unavailable ADRIEN CONTRERAS Unavailable [phone] WILFREDO BRODERICK Unavailable [phone] Allergies No Known Allergies Reason For Referral No Information Medications Medication SIG (Take, Route, Frequency, Duration) Notes Start Date End Date Status nortriptyline 50 MG Oral Capsule ORAL nortriptyline 50 MG Oral CapsuleOriginal Medicationnortriptyline 50 MG Oral Capsule *Reorder from [employer] for eRx and Interaction Alerts* 04/07/20 14 Active Allopurinol 300 MG Oral Tablet ORAL allopurinol 300 MG Oral TabletOriginal Medicationallopurinol 300 MG Oral Tablet *Reorder from [employer] for eRx and Interaction Alerts* 04/07/20 14 Active esomeprazole 20 MG Injection INTRAVENOUS esomeprazole 20 MG InjectionOriginal Medicationesomeprazole 20 MG Injection *Reorder from [employer] for eRx and Interaction Alerts* 04/07/20 14 Active levothyroxine sodium 0.1 MG Oral Capsule ORAL levothyroxine sodium 0.1 MG Oral CapsuleOriginal Medicationlevothyroxine sodium 0.1 MG Oral Capsule *Reorder from [employer] for eRx and Interaction Alerts* 04/07/20 14 Active ciclopirox 80 MG/ML Topical Solution CUTANEOUS ciclopirox 80 MG/ML Topical SolutionOriginal Medicationciclopirox 80 MG/ML Topical Solution *Reorder from [employer] for eRx and Interaction Alerts* 04/20/20 12 Active cinnamon bark 500 MG Oral Capsule ORAL cinnamon bark 500 MG Oral CapsuleOriginal Medicationcinnamon bark 500 MG Oral Capsule *Reorder from [facility] for eRx and Interaction Alerts* 04/07/20 14 Active 3 ML insulin glargine 100 UNT/ML Pen Injector [Lantus] 3 ML insulin glargine 100 UNT/ML Pen Injector [Lantus]Original Medication3 ML insulin glargine 100 UNT/ML Pen Injector [Lantus] *Reorder from [facility] for eRx and Interaction Alerts* 04/07/20 14 Active cholecalciferol 0.025 MG Oral Capsule ORAL cholecalciferol 0.025 MG Ora l CapsuleOriginal Medicationcholecalciferol 0.025 MG Oral Capsule *Reorder from [facility] for eRx and Interaction Alerts* 04/07/20 14 Active Pravastatin Sodium 10 MG Oral Tablet ORAL pravastatin sodium 10 MG Ora l TabletOriginal Medicationpravastatin sodium 10 MG Oral Tablet *Reorder from [facility] for eRx and Interaction Alerts* 04/07/20 14 Active Losartan Potassium 100 MG Oral Tablet ORAL losartan potassium 100 MG Oral TabletOriginal Medicationlosartan potassium 100 MG Oral Tablet *[facility] for eRx and Interaction Alerts* 04/07/20 14 Active Spironolactone 25 MG Oral Tablet ORAL spironolactone 25 MG Oral TabletOriginal Medicationspironolactone 25 MG Oral Tablet *Reorder from [facility] for eRx and Interaction Alerts* 04/07/20 14 Active propranolol hydrochloride 40 MG Oral Tablet ORAL propranolol hydrochloride 40 MG Oral TabletOriginal Medicationpropranolol hydrochloride 40 MG Oral Tablet *Reorder from [facility] for eRx and Interaction Alerts* 04/07/20 14 Active Nabumetone 500 MG Oral Tablet ORAL nabumetone 500 MG Oral TabletOriginal Medicationnabumetone 500 MG Oral Tablet *Reorder from [facility] for eRx and Interaction Alerts* 06/29/20 12 Active verapamil hydrochloride 40 MG Oral Tablet ORAL verapamil hydrochloride 40 M G Oral TabletOriginal Medicationverapamil hydrochloride 40 MG Oral Tablet *[facility] for eRx and Interaction Alerts* 04/07/20 14 Active Immunizations Vaccine Route Administration Date Status Comme nts Influenza, unspecified formulation Unknown 06/30/2023 A dministered Vital Signs Height-cm 170.18 cm 02/08/2024 Weight-kg 113.85 kg 02/08/2024 Height 67.00 in 02/08/2024 Weight 251 lbs 02/08/2024 BMI 39.31 kg/m2 02/08/2024 Encounters Encounter Location Date Provider Diagnosis [address] [id number] 02/08/2024 ADRIEN CONTRERAS Unspecified atherosclerosis of eek arteries of extremities, bilateral legs I70.203 ; Tinea unguium B35.1 ; Pain in left toe(s) M79.675 ; Other hammer toe(s) (acquired), right foot M20.41 ; Other hammer toe(s) (acquired), left foot M20.42 and Pain in right toe(s) M79.674 [facility] [address] [place], [place] [id number] 04/11/2024 ADRIEN CONTRERAS Unspecified atherosclerosis of eek arteries of extremities, bilateral legs I70.203 ; Tinea unguium B35.1 ; Pain in left toe(s) M79.675 ; Other hammer toe(s) (acquired), right foot M20.41 ; Other hammer toe(s) (acquired), left foot M20.42 ; Pain in right toe(s) M79.674 and Acquired 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 [id number] 10/10/2024 MIRIAN MOSHER Tinea unguium B35.1 ; Acquired 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 ; Atherosclerosis of eek arteries of extremities with intermittent claudication, bilateral legs I70.213 ; Pain in right foot M79.671 and Pain in left foot M79.672 [facility] [address] [facility] [address] [place], [place] [id number] 12/09/2024 MIRIAN MOSHER Assessments Encounter Date Diagnosis (ICD Code) Assessment Notes Treatment Notes Treatment Clinical Notes Section Notes 02/08/2024 Tinea unguium (ICD-10 - B35.1) Aseptic [...] and prescription treatments. 02/08/2024 Unspecified atherosclerosis of eek arteries of extremities, bilateral legs (ICD-10 - [...] and prescription treatments. 04/11/2024 Unspecified atherosclerosis of eek arteries of extremities, bilateral legs (ICD-10 - [...] utilizing a #15 blade 10/10/2024 Atherosclerosis of eek arteries of extremities with intermittent claudication, bilateral legs (ICD-10 - I70.213) 02/08/2024 Pain in left toe(s) (ICD-10 - M79.675) 04/11/2024 Pain in left toe(s) (ICD-10 - M79.675) 02/08/2024 Other hammer toe(s) (acquired), right foot [...] (acquired), left foot (ICD-10 - M20.42) 02/08/2024 Pain in right toe(s) (ICD-10 - [...] Provider Name:WILFREDO MARTIN, 01/02/2025 02:10:00 PM, [address] [place] [address], [phone], Insurance Providers Payer Name Payer Address Payer Phone Subscriber Number Group Number Insured Name Patient Relationship to Insured Coverage Start Date Coverage End Date [facility] [address] [address] [place] [id number] MATEUSZ MONROE Self - patient is the insured
== END 2024-12-13 12:40 | disposition home or self-care (01) ==
PROVIDERS: PCP Family Medicine; Visit Provider Nurse Practitioner Family
DX: M25.50 Pain in unspecified joint (principal); M54.50 Low back pain, unspecified; M16.0 Bilateral primary osteoarthritis of hip; M43.06 Spondylolysis, lumbar region
CPT/HCPCS: 72110; 73130; 73521

== ENCOUNTER 2024-12-26 10:12 | Emergency (ER) | payer MEDICARE, MEDICAID, SELFPAY ==
[2024-12-26 10:12] VITALS: BP 138/74; PULSE 100; RESP 18; TEMP 36.6; O2SAT 100
--- NOTE | 2024-12-26 10:26 | ED_ITS ---
HPI - Headache General Chief Complaint: Headache Stated Complaint: headache Time Seen by Provider: 12/26/24 10:19 Source: patient Mode of arrival: ambulatory Limitations: no limitations History of Present Illness HPI Narrative: this is a 59-year-old female with recent dental extraction and currently being treated for dental abscess by her dentist has been having headache with some swollen right lower with no fever chills no chest pain no shortness of breaths no neurological deficits. MD elicited complaint: headache Onset (ago): day(s) Severity: mild Related Data Home Medications ?Medication ?Instructions ?Recorded ?Confirmed ?Last Taken ?Type semaglutide 1 mg/dose (2 mg/1.5 1 mg subcut WEEKLY 09/30/22 12/03/24 02/28/23 History mL) subcutaneous pen injector (Ozempic) dapagliflozin propanediol 10 mg 10 mg PO DAILY 10/18/22 12/03/24 03/02/23 History tablet (Farxiga) vitamin B complex 1 tablet PO DAILY 02/16/23 12/03/24 03/02/23 History ascorbate calcium (vitamin C) 500 1 g PO DAILY 11/15/23 12/03/24 Unknown History mg tablet ferrous sulfate 325 mg (65 mg 325 mg PO BID 08/19/24 12/03/24 Unknown History iron) capsule,extended release losartan 50 mg tablet 50 mg PO DAILY 11/15/24 12/03/24 Unknown History magnesium citrate,mag oxide 250 mg mg PO 11/15/24 12/03/24 Unknown History capsule propranolol 60 mg capsule,24 40 mg PO DAILY 11/15/24 12/03/24 Unknown History hr,extended release Allergies Allergy/AdvReac Type Severity Reaction Status Date / Time amoxicillin AdvReac Severe Diarrhea Verified 12/03/24 14:02 metformin AdvReac Severe Diarrhea Uncoded 12/03/24 14:02 Review of Systems Review of Systems: All systems reviewed & are unremarkable except as noted in HPI and below PMFSH Past Medical History Medical History Chronic pancreatitis Trigger finger, right little finger Low back pain CKD (chronic kidney disease) stage 3, GFR 30-59 ml/min Bilateral hip pain Osteoporosis Excessive thirst Hypothyroidism UTI (urinary tract infection) Urinary frequency ISIS (obstructive sleep apnea) Congestion of nasal sinus Bleeding nose Light headedness Dizziness Chronic headaches Depression Arthritis HTN (hypertension) Sleep apnea Anemia Diabetes 1.5, managed as type 2 Kidney disease High cholesterol Anxiety Bilateral knee pain Surgical History Surgical History S/P cubital tunnel release Left History of right cataract surgery History of left cataract surgery History of mandibular surgery History of sinus surgery History of carpal tunnel release of both wrists History of ureter stent Hx of bariatric surgery gastric sleeve Family History Family History Father Diabetes mellitus Hypertension Family history of arthritis Cerebrovascular accident Mother Heart valve replaced Other Trigger finger, left little finger Social History Social History Smoking status: Never smoker Alcohol intake: never Substance use: never Substance use type: does not use Do You Feel Safe in your Home?: Yes Lack of Transportation: No Lack of Food: Never True Current Housing: I Have Housing Concerned About Future Housing: No Difficulty Paying Gas/Electric Bills: No Difficulty Paying for Meds: No Currently Unemployed: No Education: Associate Degree Difficulty w/ Childcare or Family Care: No Living arrangements: with family Additional living arrangements comments: MOM & BROTHER Occupation/Education: other Additional occupation/education comments: disabled Gender identity (if verbalized by the patient): Female Sexual Orientation (if Verbalized by the Patient): Straight or Heterosexual Spiritual care concerns: No Exam Const: General: healthy appearing, no acute distress and alert Nutritional Appearance: well nourished Orientation/consciousness: patient oriented x3 Limitations: no limitations HENMT: Other: As dental infection right lower molar Eyes: Conjunctivae: conjunctivae normal EOM: EOMs intact bilaterally Neck: Neck: normal visual inspection and no lymphadenopathy Chest: Chest palpation & inspection: normal inspection of the chest Resp: Effort & Inspection: normal respiratory effort Auscultation: clear to auscultation bilaterally Cardio: Rate: regular rate GI: GI Palp: Yes Soft to palpation Skin: General skin exam: normal color Rashes: no rashes Neuro: General: patient oriented x3, moves all extremities, no meningeal signs, no focal motor deficits and CN's II-XI intact bilaterally Cranial nerves: Yes Nystagmus not present Speech: normal speech Extrem: General: normal to inspection Course Course Emergency Course: patient currently being treated with antibiotics for dental abscess was having a headache with no fevers currently on amoxicillin, advised to discontinue amoxicillin will start Augmentin was sent to her pharmacy, also taking hydrocodone for pain advised to take med as needed along with Tylenol extra- strength as needed. Vital Signs Vital signs: Vital Signs Temperature 36.6 C 12/26/24 10:12 Pulse Rate 100 12/26/24 10:12 Respiratory Rate 18 12/26/24 10:12 Blood Pressure 138/74 12/26/24 10:12 Pulse Oximetry 100 12/26/24 10:12 Oxygen Delivery Room Air 12/26/24 10:12 Temperature 36.6 C 12/26/24 10:12 Pulse Rate 100 12/26/24 10:12 Respiratory Rate 18 12/26/24 10:12 Blood Pressure 138/74 12/26/24 10:12 Pulse Oximetry 100 12/26/24 10:12 Oxygen Delivery Room Air 12/26/24 10:12 Critical Care Time Critical Care Time Critical Care Time: No Discharge Plan Discharge Clinical Impression: Dental abscess Headache Qualifiers: Headache type: unspecified Headache chronicity pattern: unspecified pattern Intractability: not intractable Qualified Code(s): R51.9 - Headache, unspecified Patient Disposition: Home Condition: Stable Instructions: Antibiotic Form, Dental Abscess (ED), Acute Headache (ED) Additional Instructions: advised to take medication as prescribed and follow-up with primary for further evaluation and treatment. Patient Language: Namibian Prescriptions: New amoxicillin-pot clavulanate [Augmentin] 500-125 mg tablet 1 tablet PO TID Qty: 30 0RF No Action diphenoxylate-atropine [Lomotil] 2.5-0.025 mg tablet 2 tablet PO BID PRN (Reason: diarrhea) 90 Days Qty: 360 3RF Rx Instructions: take 1-2 tablets twice a day as needed for diarrhea. Ozempic 1 mg/dose (2 mg/1.5 mL) pen injector 1 mg subcut WEEKLY Patient Comments: PT TAKES ON MONDAY ascorbate calcium (vitamin C) 500 mg tablet 1 g PO DAILY amitriptyline 25 mg tablet 25 mg PO QHS 90 Days Qty: 90 3RF fluticasone propionate 50 mcg/actuation spray,suspension 1 spray intranasal DAILY 90 Days Qty: 48 3RF Rx Instructions: administer into each nostril (DME) Dexcom G7 Sensor Device See Rx Instructions .Route Qty: 4 3RF Rx Instructions: ACHS cetirizine 10 mg tablet 5 mg PO QHS PRN (Reason: allergy symptoms) Qty: 30 1RF Farxiga 10 mg tablet 10 mg PO DAILY losartan 50 mg tablet 50 mg PO DAILY Rx Instructions: Takes 1/2 tab propranolol 60 mg capsule,extended release 24 hr 40 mg PO DAILY Rx Instructions: Takes 1/2 tab per day - 20mg magnesium citrate,mag oxide 250 mg capsule PO ferrous sulfate 325 mg (65 mg iron) capsule, extended release 325 mg PO BID vitamin B complex Tablet Extended Release 1 tablet PO DAILY hydrocodone-acetaminophen 7.5-325 mg tablet 1 tablet PO Q8H PRN (Reason: pain) Qty: 90 0RF cyanocobalamin (vitamin B-12) 1,000 mcg/mL solution 100 mcg subcut MONTHLY Qty: 10 0RF levothyroxine 100 mcg tablet See Rx Instructions .ROUTE .COMPLEX Qty: 100 2RF Dose Instruction: TAKE 1 TABLET BY MOUTH DAILY Rx Instructions: TAKE 1 TABLET BY MOUTH DAILY ondansetron 4 mg tablet,disintegrating 4 mg PO Q8H PRN (Reason: nausea and vomiting) Qty: 14 0RF pravastatin 20 mg tablet See Rx Instructions .ROUTE .COMPLEX Qty: 100 0RF Dose Instruction: TAKE 1 TABLET BY MOUTH AT BEDTIME Rx Instructions: TAKE 1 TABLET BY MOUTH AT BEDTIME allopurinol 100 mg tablet See Rx Instructions .ROUTE .COMPLEX Qty: 100 0RF Dose Instruction: TAKE 1 TABLET BY MOUTH DAILY Rx Instructions: TAKE 1 TABLET BY MOUTH DAILY isosorbide mononitrate 30 mg tablet extended release 24 hr See Rx Instructions .ROUTE .COMPLEX Qty: 60 5RF Dose Instruction: TAKE 1 TABLET BY MOUTH DAILY Rx Instructions: TAKE 1 TABLET BY MOUTH DAILY Follow-up/Referrals: Virgilio Meehan DO [Primary Care Provider] - Time of Disposition: 10:31
--- OUTSIDE RECORDS SUMMARY | 2024-12-26 10:34 | XMS_ITS | Patient Health Record ---
Author Organization [facility] Address [address] [place], [place] [id number] Care Team Providers Care Jinriksha Driver Name Role Phone MIRIAN MOSHER Unavailable [phone] Virgilio Meehan Unavailable Unavailable ADRIEN CONTRERAS Unavailable [phone] WILFREDO BRODERICK Unavailable [phone] Allergies No Known Allergies Reason For Referral No Information Medications Medication SIG (Take, Route, Frequency, Duration) Notes Start Date End Date Status nortriptyline 50 MG Oral Capsule ORAL nortriptyline 50 MG Oral CapsuleOriginal Medicationnortriptyline 50 MG Oral Capsule *Reorder from [facility] for eRx and Interaction Alerts* 04/07/20 14 Active Allopurinol 300 MG Oral Tablet ORAL allopurinol 300 MG Oral TabletOriginal Medicationallopurinol 300 MG Oral Tablet *Reorder from [facility] for eRx and Interaction Alerts* 04/07/20 14 Active esomeprazole 20 MG Injection INTRAVENOUS esomeprazole 20 MG InjectionOriginal Medicationesomeprazole 20 MG Injection *Reorder from [facility] for eRx and Interaction Alerts* 04/07/20 14 Active levothyroxine sodium 0.1 MG Oral Capsule ORAL levothyroxine sodium 0.1 MG Oral CapsuleOriginal Medicationlevothyroxine sodium 0.1 MG Oral Capsule *Reorder from [facility] for eRx and Interaction Alerts* 04/07/20 14 Active ciclopirox 80 MG/ML Topical Solution CUTANEOUS ciclopirox 80 MG/ML Topical SolutionOriginal Medicationciclopirox 80 MG/ML Topical Solution *Reorder from [facility] for eRx and Interaction Alerts* 04/20/20 12 Active cinnamon bark 500 MG Oral Capsule ORAL cinnamon bark 500 MG Oral CapsuleOriginal Medicationcinnamon bark 500 MG Oral Capsule *Reorder from [facility] for eRx and Interaction Alerts* 04/07/20 14 Active 3 ML insulin glargine 100 UNT/ML Pen Injector [Lantus] 3 ML insulin glargine 100 UNT/ML Pen Injector [Lantus]Original Medication3 ML insulin glargine 100 UNT/ML Pen Injector [Lantus] *Reorder from [facility] for eRx and Interaction Alerts* 04/07/20 14 Active cholecalciferol 0.025 MG Oral Capsule ORAL cholecalciferol 0.025 MG Ora l CapsuleOriginal Medicationcholecalciferol 0.025 MG Oral Capsule *Reorder from [facility] for eRx and Interaction Alerts* 04/07/20 14 Active Pravastatin Sodium 10 MG Oral Tablet ORAL pravastatin sodium 10 MG Ora l TabletOriginal Medicationpravastatin sodium 10 MG Oral Tablet *Reorder from [facility] for eRx and Interaction Alerts* 04/07/20 14 Active Losartan Potassium 100 MG Oral Tablet ORAL losartan potassium 100 MG Oral TabletOriginal Medicationlosartan potassium 100 MG Oral Tablet *[facility] and Interaction Alerts* 04/07/20 14 Active Spironolactone 25 MG Oral Tablet ORAL spironolactone 25 MG Oral TabletOriginal Medicationspironolactone 25 MG Oral Tablet *Reorder from [facility] for eRx and Interaction Alerts* 04/07/20 14 Active propranolol hydrochloride 40 MG Oral Tablet ORAL propranolol hydrochloride 40 MG Oral TabletOriginal Medicationpropranolol hydrochloride 40 MG Oral Tablet *Reorder from [facility] for eRx and Interaction Alerts* 04/07/20 14 Active Nabumetone 500 MG Oral Tablet ORAL nabumetone 500 MG Oral TabletOriginal Medicationnabumetone 500 MG Oral Tablet *Reorder from [facility] for eRx and Interaction Alerts* 06/29/20 12 Active verapamil hydrochloride 40 MG Oral Tablet ORAL verapamil hydrochloride 40 M G Oral TabletOriginal Medicationverapamil hydrochloride 40 MG Oral Tablet [facility]* 04/07/20 14 Active Immunizations Vaccine Route Administration Date Status Comme nts Influenza, unspecified formulation Unknown 06/30/2023 A dministered Vital Signs Height-cm 170.18 cm 02/08/2024 Weight-kg 113.85 kg 02/08/2024 Height 67.00 in 02/08/2024 Weight 251 lbs 02/08/2024 BMI 39.31 kg/m2 02/08/2024 Encounters Encounter Location Date Provider Diagnosis [address] [id number] 02/08/2024 ADRIEN CONTRERAS Unspecified atherosclerosis of [place] arteries of extremities, bilateral legs I70.203 ; Tinea unguium B35.1 ; Pain in left toe(s) M79.675 ; Other hammer toe(s) (acquired), right foot M20.41 ; Other hammer toe(s) (acquired), left foot M20.42 and Pain in right toe(s) M79.674 [facility] [address] [place], [place] [id number] 04/11/2024 ADRIEN CONTRERAS Unspecified atherosclerosis of [place] arteries of extremities, bilateral legs I70.203 ; Tinea unguium B35.1 ; Pain in left toe(s) M79.675 ; Other hammer toe(s) (acquired), right foot M20.41 ; Other hammer toe(s) (acquired), left foot M20.42 ; Pain in right toe(s) M79.674 and Acquired 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 [id number] 10/10/2024 MIRIAN MOSHER Tinea unguium B35.1 ; Acquired 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 ; Atherosclerosis of [place] arteries of extremities with intermittent claudication, bilateral legs I70.213 ; Pain in right foot M79.671 and Pain in left foot M79.672 [facility] [address] [facility] [address] [place], [place] [id number] 12/09/2024 MIRIAN MOSHER Assessments Encounter Date Diagnosis [...] and prescription treatments. 02/08/2024 Unspecified atherosclerosis of [place] arteries of extremities, bilateral legs (ICD-10 - [...] and prescription treatments. 04/11/2024 Unspecified atherosclerosis of [place] arteries of extremities, bilateral legs (ICD-10 - [...] utilizing a #15 blade 10/10/2024 Atherosclerosis of [place] arteries of extremities with intermittent claudication, bilateral [...] Details Provider Name:WILFREDO MARTIN, 01/02/2025 02:10:00 PM, [address] [place] [address], [id number], Insurance Providers Payer Name Payer Address Payer Phone Subscriber Number Group Number Insured Name Patient Relationship to Insured Coverage Start Date Coverage End Date [facility] [address] [address] [place] [address] [id number] MATEUSZ MONROE Self - patient is the insured
--- OUTSIDE RECORDS SUMMARY | 2024-12-26 10:34 | XMS_ITS | Encounter Summary ---
Author Organization [facility] Address [facility] [place] [address] Care Team Providers Care Crew Person Name Role Phone Alexis Thurman MD Unavailable [phone] Willian Mendoza MD Primary Care Provider [phone] Cee Liu APRN, CARDIOGRAPH OPERATOR-C Unavailable Virgilio Meehan DO Primary Care Provider [phone] Mame Osborn MD Unavailable [phone] Encounter Details Date Type Department Care Team (Late st Contact Info) Description 04/07/2021 Abstract [facility] [address] [place] [address] [place] [address] [place] [id number] Social History Tobacco Use Types Packs/Day Years [...] 05/12/2025 1:30 PM CDT Office Visit [facility] [address] [place] [phone] Cee Liu APRN, CARDIOGRAPH OPERATOR-C [address] [phone] documented as of this encounter Visit Diagnoses Not on filedocumented in this encounter Care Teams Crew Person Relationship Specialty Start Date End Date Willian Mendoza MD [address] [place] [address] PCP - General INTERNAL MEDICINE 09/14/18 09/07/22 Virgilio Meehan DO [address] [place] [address] PCP - General FAMILY PRACTICE 09/08/22 Alexis Thurman MD [address] [place] [phone] [place] [employer] Operator CARDIOVASCULAR DISEASE 09/14/18 04/01/24 Cee Liu APRN, CARDIOGRAPH OPERATOR-C [address] [phone] NURSE PRACTITIONER 05/27/22 Mame Osborn MD [address] [place] [address] INTERVENTIONAL CARDIOLOGY 05/10/24 documented as of this encounter
--- OUTSIDE RECORDS SUMMARY | 2024-12-26 10:34 | XMS_ITS | Encounter Summary ---
Author Organization [facility] Address [facility] [place] [address] Care Team Providers Care Public Health Internship Name Role Phone Alexis Thurman MD Unavailable [phone] Willian Mendoza MD Primary Care Provider [phone] Cee Liu APRN, PUBLISHING AGENT-C Unavailable Virgilio Meehan DO Primary Care Provider [phone] Mame Osborn MD Unavailable [phone] Encounter Details Date Type Department Care Team (Late st Contact Info) Description 07/04/2022 Abstract [facility] [address] [place] [address] Alexis Thurman MD [address] [place] [phone] Social History Tobacco Use Types Packs/Day Years [...] Coronavirus/COVID-19? No / Unsure 06/29/2022 5:44 AM WET END SUPERVISOR documented as of this encounter Plan of Treatment Upcoming Encounters Date Type Department Care Team (Late st Contact Info) Description 05/12/2025 1:30 PM CDT Office Visit [facility] [address] [place] [address] Cee Liu APRN, PUBLISHING AGENT-C [address] [facility] [address] [place] [address] documented as of this encounter [...] on filedocumented in this encounter Care Teams Public Health Internship Relationship Specialty Start Date End Date Willian Mendoza MD [address] [place] [address] PCP - General INTERNAL MEDICINE 09/14/18 09/07/22 Virgilio Meehan DO [address] [place] [address] PCP - General FAMILY PRACTICE 09/08/22 Alexis Thurman MD [address] [place] [address] [place] Knock[employer] Worker CARDIOVASCULAR DISEASE 09/14/18 04/01/24 Cee Liu APRN, PUBLISHING AGENT-C [address] [facility] [address] [place] [address] NURSE PRACTITIONER 05/27/22 Mame Osborn MD [address] [place] [address] INTERVENTIONAL CARDIOLOGY 05/10/24 documented as of this encounter
--- OUTSIDE RECORDS SUMMARY | 2024-12-26 10:34 | XMS_ITS | Encounter Summary ---
Author Organization [facility] Address [facility] [place] [address] Care Team Providers Care Insights Strategist Name Role Phone Cee Liu APRN, SAWDUST MACHINE OPERATOR-C Unavailable [phone] Virgilio Meehan DO Primary Care Provider [phone] Mame Osborn MD Unavailable [phone] Encounter Details Date Type Department Care Team (Late Contact Info) Description 11/12/2024 Abstract [facility] [address] [place] [address] Ella Witt MD [address] [place] [address] Social History Tobacco Use Types Packs/Day Years [...] Description 05/12/2025 1:30 PM CDT Office Visit [facility] [address] [place] [address] Cee Liu APRN, SAWDUST MACHINE OPERATOR-C [address] [facility] [address] [place] [phone] documented as of this encounter Visit Diagnoses Not on filedocumented in this encounter Care Teams Insights Strategist Relationship Specialty Start Date End Date Virgilio Meehan DO [address] [place] [address] PCP - General FAMILY PRACTICE 09/08/22 Cee Liu, RHINOLOGIST, SAWDUST MACHINE OPERATOR-C [address] [facility] [address] [place] [address] NURSE PRACTITIONER 05/27/22 Mame Osborn MD [address] [place] [address] INTERVENTIONAL CARDIOLOGY 05/10/24 documented as of this encounter
--- OUTSIDE RECORDS SUMMARY | 2024-12-26 10:34 | XMS_ITS ---
Author Organization [facility] Address [address] [place], [place] [address] Care Team Providers Care Metrology Engineer Name Role Phone MIRIAN MOSHER Unavailable [phone] Virgilio Meehan Unavailable Unavailable REASON FOR VISIT [...] Medicationnortriptyline 50 MG Oral Capsule *Reorder from [employer] for eRx and Interaction Alerts* 04/07/20 14 Active esomeprazole 20 MG Injection INTRAVENOUS esomeprazole 20 MG InjectionOriginal Medicationesomeprazole 20 MG Injection *Reorder from [employer] for eRx and Interaction Alerts* 04/07/20 14 Active levothyroxine sodium 0.1 MG Oral Capsule ORAL levothyroxine sodium 0.1 MG Oral CapsuleOriginal Medicationlevothyroxine sodium 0.1 MG Oral Capsule *Reorder from [employer] for eRx and Interaction Alerts* 04/07/20 14 Active propranolol hydrochloride 40 MG Oral Tablet ORAL propranolol hydrochloride 40 MG Oral TabletOriginal Medicationpropranolol hydrochloride 40 MG Oral Tablet *[facility] and Interaction Alerts* 04/07/20 14 Active verapamil hydrochloride 40 MG Oral Tablet ORAL verapamil hydrochloride 40 M G Oral TabletOriginal Medicationverapamil hydrochloride 40 MG Oral Tablet *[facility] e[facility] and Interaction Alerts* 04/07/20 14 Active ciclopirox 80 MG/ML Topical Solution CUTANEOUS ciclopirox 80 MG/ML Topical SolutionOriginal Medicationciclopirox 80 MG/ML Topical Solution *Reorder from [employer] for eRx and Interaction Alerts* 04/20/20 12 Active cinnamon bark 500 MG Oral Capsule ORAL cinnamon bark 500 MG Oral CapsuleOriginal Medicationcinnamon bark 500 MG Oral Capsule *Reorder from [employer] for eRx and Interaction Alerts* 04/07/20 14 Active 3 ML insulin glargine 100 UNT/ML Pen Injector [Lantus] 3 ML insulin glargine 100 UNT/ML Pen Injector [Lantus]Original Medication3 ML insulin glargine 100 UNT/ML Pen Injector [Lantus] *Reorder from [employer] for eRx and Interaction Alerts* 04/07/20 14 Active cholecalciferol 0.025 MG Oral Capsule ORAL cholecalciferol 0.025 MG Ora l CapsuleOriginal Medicationcholecalciferol 0.025 MG Oral Capsule *Reorder from [employer] for eRx and Interaction Alerts* 04/07/20 14 Active Losartan Potassium 100 MG Oral Tablet ORAL losartan potassium 100 MG Oral TabletOriginal Medicationlosartan potassium 100 MG Oral Tablet *Reorder from [employer] for eRx and Interaction Alerts* 04/07/20 14 Active Allopurinol 300 MG Oral Tablet ORAL allopurinol 300 MG Oral TabletOriginal Medicationallopurinol 300 MG Oral Tablet *Reorder from [employer] for eRx and Interaction Alerts* 04/07/20 14 Active Pravastatin Sodium 10 MG Oral Tablet ORAL pravastatin sodium 10 MG Ora l TabletOriginal Medicationpravastatin sodium 10 MG Oral Tablet *Reorder from [employer] for eRx and Interaction Alerts* 04/07/20 14 Active Spironolactone 25 MG Oral Tablet ORAL spironolactone 25 MG Oral TabletOriginal Medicationspironolactone 25 MG Oral Tablet *Reorder from [employer] for eRx and Interaction Alerts* 04/07/20 14 Active Nabumetone 500 MG Oral Tablet ORAL nabumetone 500 MG Oral TabletOriginal Medicationnabumetone 500 MG Oral Tablet *Reorder from [employer] for eRx and Interaction Alerts* 06/29/20 12 Active Encounters Encounter Location Date Provider Diagnosis [facility] [address] [place], [place] [id number] 10/10/2024 MIRIAN MOSHER Tinea unguium B35.1 ; Acquired 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 ; Atherosclerosis of [place] arteries of extremities with intermittent claudication, bilateral [...] a #15 blade 10/10/2024 Atherosclerosis of [place] arteries of extremities with intermittent claudication, bilateral [...] develop. Provider Name:WILFREDO MARTIN, 01/02/2025 02:10:00 PM, [address] [place] [address], [id number], Progress Notes * MATEUSZ MONROE ADOB:[birth year] (59 yo F)Acc No.[id number]:10/10/2024 Patient: MATEUSZ ZHU Provider: Roosevelt Mosher DPM :1965 A ge:58 Y S ex:Female Date:10/10/2024 Address:[address] [place] [address] Subjective: * Chief Complaints: * Jerrica chung [...] Medicationallopurinol 300 MG Oral Tablet *Reorder from [employer] for eRx and Interaction Alerts*Spironolactone 25 MG Oral Tablet ORAL , Notes to Pharmacist: spironolactone 25 MG Oral TabletOriginal Medicationspironolactone 25 MG Oral Tablet *Reorder from [employer] for eRx and Interaction Alerts*Nabumetone 500 MG Oral Tablet ORAL , Notes to Pharmacist: nabumetone 500 MG Oral TabletOriginal Medicationnabumetone 500 MG Oral Tablet *[facility]*Pravastatin Sodium 10 MG Oral Tablet ORAL , Notes to Pharmacist: pravastatin sodium 10 MG Oral TabletOriginal Medicationpravastatin sodium 10 MG Oral Tablet *Reorder from [facility] for eRx and Interaction Alerts*Losartan Potassium 100 MG Oral Tablet ORAL , Notes to Pharmacist: losartan potassium 100 MG Oral TabletOriginal Medicationlosartan potassium 100 MG Oral Tablet *Reorder from [facility] for eRx and Interaction Alerts*3 ML insulin glargine 100 UNT/ML Pen Injector [Lantus] , Notes to Pharmacist: 3 ML insulin glargine 100 UNT/ML Pen Injector [Lantus]Original Medication3 ML insulin glargine 100 UNT/ML Pen Injector [Lantus] *Reorder from [facility] for eRx and Interaction Alerts*cholecalciferol 0.025 MG Oral Capsule ORAL , Notes to Pharmacist: cholecalciferol 0.025 MG Oral CapsuleOriginal Medicationcholecalciferol 0.025 MG Oral Capsule *Reorder from [facility] for eRx and Interaction Alerts*ciclopirox 80 MG/ML Topical Solution CUTANEOUS , Notes to Pharmacist: ciclopirox 80 MG/ML Topical SolutionOriginal Medicationciclopirox 80 MG/ML Topical Solution *Reorder from [facility] for eRx and Interaction Alerts*cinnamon bark 500 MG Oral Capsule ORAL , Notes to Pharmacist: cinnamon bark 500 MG Oral CapsuleOriginal Medicationcinnamon bark 500 MG Oral Capsule *Reorder from [facility] for eRx and Interaction Alerts*esomeprazole 20 MG Injection INTRAVENOUS , Notes to Pharmacist: esomeprazole 20 MG InjectionOriginal Medicationesomeprazole 20 MG Injection *Reorder from [facility] for eRx and Interaction Alerts*levothyroxine sodium 0.1 MG Oral Capsule ORAL , Notes to Pharmacist: levothyroxine sodium 0.1 MG Oral CapsuleOriginal Medicationlevothyroxine sodium 0.1 MG Oral Capsule *Reorder from [facility] for eRx and Interaction Alerts*nortriptyline 50 MG Oral Capsule ORAL , Notes to Pharmacist: nortriptyline 50 MG Oral CapsuleOriginal Medicationnortriptyline 50 MG Oral Capsule *Reorder from [facility] for eRx and Interaction Alerts*propranolol hydrochloride 40 MG Oral Tablet ORAL , Notes to Pharmacist: propranolol hydrochloride 40 MG Oral TabletOriginal Medicationpropranolol hydrochloride 40 MG Oral Tablet *Reorder from [facility] for eRx and Interaction Alerts*verapamil hydrochloride 40 MG Oral Tablet ORAL , Notes to Pharmacist: verapamil hydrochloride 40 MG Oral TabletOriginal Medicationverapamil hydrochloride 40 MG Oral Tablet *Reorder from [facility] for eRx and Interaction Alerts*Medication List reviewed and reconciled with the patientTaking Allopurinol 300 MG Oral Tablet ORAL , Notes to Pharmacist: allopurinol 300 MG Oral TabletOriginal Medicationallopurinol 300 MG Oral Tablet *Reorder from [facility] for eRx and Interaction Alerts*Taking Spironolactone 25 MG Oral Tablet ORAL , Notes to Pharmacist: spironolactone 25 MG Oral TabletOriginal Medicationspironolactone 25 MG Oral Tablet *Reorder from [facility] for eRx and Interaction Alerts*Taking Nabumetone 500 MG Oral Tablet ORAL , Notes to Pharmacist: nabumetone 500 MG Oral TabletOriginal Medicationnabumetone 500 MG Oral Tablet *Reorder from [facility] for eRx and Interaction Alerts*Taking Pravastatin Sodium 10 MG Oral Tablet ORAL , Notes to Pharmacist: pravastatin sodium 10 MG Oral TabletOriginal Medicationpravastatin sodium 10 MG Oral Tablet *Reorder from [facility] for eRx and Interaction Alerts*Taking Losartan Potassium 100 MG Oral Tablet ORAL , Notes to Pharmacist: losartan potassium 100 MG Oral TabletOriginal Medicationlosartan potassium 100 MG Oral Tablet *Reorder from [facility] for eRx and Interaction Alerts*Taking 3 ML insulin glargine 100 UNT/ML Pen Injector [Lantus] , Notes to Pharmacist: 3 ML insulin glargine 100 UNT/ML Pen Injector [Lantus]Original Medication3 ML insulin glargine 100 UNT/ML Pen Injector [Lantus] *Reorder from [facility] for eRx and Interaction Alerts*Taking cholecalciferol 0.025 MG Oral Capsule ORAL , Notes to Pharmacist: cholecalciferol 0.025 MG Oral CapsuleOriginal Medicationcholecalciferol 0.025 MG Oral Capsule *Reorder from [facility] for eRx and Interaction Alerts*Taking ciclopirox 80 MG/ML Topical Solution CUTANEOUS , Notes to Pharmacist: ciclopirox 80 MG/ML Topical SolutionOriginal Medicationciclopirox 80 MG/ML Topical Solution *Reorder from [facility] for eRx and Interaction Alerts*Taking cinnamon bark 500 MG Oral Capsule ORAL , Notes to Pharmacist: cinnamon bark 500 MG Oral CapsuleOriginal Medicationcinnamon bark 500 MG Oral Capsule *Reorder from [facility] for eRx and Interaction Alerts*Taking esomeprazole 20 MG Injection INTRAVENOUS , Notes to Pharmacist: esomeprazole 20 MG InjectionOriginal Medicationesomeprazole 20 MG Injection *Reorder from [facility] for eRx and Interaction Alerts*Taking levothyroxine sodium 0.1 MG Oral Capsule ORAL , Notes to Pharmacist: levothyroxine sodium 0.1 MG Oral CapsuleOriginal Medicationlevothyroxine sodium 0.1 MG Oral Capsule *Reorder from [facility] for eRx and Interaction Alerts*Taking nortriptyline 50 MG Oral Capsule ORAL , Notes to Pharmacist: nortriptyline 50 MG Oral CapsuleOriginal Medicationnortriptyline 50 MG Oral Capsule *Reorder from [facility] for eRx and Interaction Alerts*Taking propranolol hydrochloride 40 MG Oral Tablet ORAL , Notes to Pharmacist: propranolol hydrochloride 40 MG Oral TabletOriginal Medicationpropranolol hydrochloride 40 MG Oral Tablet *Reorder from [facility] for eRx and Interaction Alerts*Taking verapamil hydrochloride 40 MG Oral Tablet ORAL , Notes to Pharmacist: verapamil hydrochloride 40 MG Oral TabletOriginal Medicationverapamil hydrochloride 40 MG Oral Tablet *Reorder from [facility] for eRx and Interaction Alerts*Medication List reviewed [...] - L85.1 3 . A therosclerosis of [place] arteries of extremities with intermittent claudication, bilateral [...] develop.) * Billing Information: * Visit Code: 56882 Office Visit, Est Pt., Level 3. * Procedure Codes: * Sign off status: Completed true * Provider: Roosevelt Mosher DPM Date: 0 10/10/2024 Generated for Curt Reilly/Jose on: 0 12/26/2024 10:34 AM CDT History and Physical Notes * HPI [...]
--- OUTSIDE RECORDS SUMMARY | 2024-12-26 10:34 | XMS_ITS | Clinical Summary ---
Author Organization [facility] Address [facility] [place] [address] Care Team Providers Care Subcontracts Manager Name Role Phone Cee Liu APRN DOCTOR OF CHIROPRACTIC-C Unavailable [phone] Virgilio Meehan DO Primary Care Provider [phone] Mame Osborn MD Unavailable [phone] Allergies Active Allergy Reactions Criticality Noted Date Comments Amoxicillin-Pot Clavulanate Diarrhea 05/27/2022 Metformin Other (see comment) 05/27/2022 Renal function impairment Pantoprazole Other (see comment) 05/27/2022 Hypomagnesemia Medications CPAP DME DEVICE CPAPCPAP [id number] via IV [id number] Morrissey 8 Active pravastatin (PRAVACHOL) 20 MG [...] mouth 2 (two) times daily. Active CREON [id number] units capsule Take 2 capsules (72,000 units [...] check lipid panel Hypertension associated with diabetes ([facility]) 09/19/2012 Overview (10/22/2018): Overview: Unspecified essential hypertension Last Assessment & Plan: Controlled on current medications. Type 2 diabetes mellitus ([facility]) 06/28 Overview (10/22/2018): Overview: DMII [...] Type Department Care Team Description 11/12/2024 Telephone [facility] [address] [place] [address] Ella Witt MD Results 11/12/2024 Orders Only [facility] [address] [place] [address] Ella Witt MD 11/12/2024 Abstract [facility] [address] [place] [address] Ella Witt MD 11/04/2024 11:15 AM CDT - 11/04/2024 11:59 PM CDT Hospital Encounter [facility] [address] [place] [address] Ella Witt MD Discharge Disposition: Home or Self Care (Routine Discharge) 11/04/2024 10:30 AM CDT Office Visit [facility] [address] [place], [place] [address] [address] Gonzalez Wilson MD Bhatti, Vikrampal S, MD CKD Follow-up (Pt is having some low back pain for the past 3 or 4 days.) 11/04/2024 Scan [facility] [address] [place] [address] Scanned, Doc Cikda 11/04/2024 Orders Only [facility] [place] [address] Ella Witt MD 11/04/2024 Travel 10/29/2024 Scan [facility] [address] [place] [address] Scanned, Doc Cikda Lab (SCAN) from Last [...] 36.2 C (97.2 F) 06/29/2022 6:18 AM SENIOR SITE MANAGER Respiratory Rate 16 05/10/2024 12:4 0 PM [...] 05/12/2025 1:30 PM CDT Office Visit [facility] [address] [place] [phone] Cee Liu, CAMPUS RECRUITING INTERN, DOCTOR OF CHIROPRACTIC-C [address] [facility] [address] [place] [address] Health Maintenance Due Date Last [...] this topic Medical Devices Implanted Type Area Corporate Tax Manager Device Identifier Shelf Expiration Date Model / Serial / Lot Stent Ureteral [place] Sci Contour 6fr X 26cm - [id number] Implanted:Qty : 1 on 06/28/2021 by Ryan Vinson MD at [facility] Stent Right: Ureter ObsEva MASOOD [id number] 04/12/2024 [id number] / / [id number] Procedures Procedure Name Priority Date/Time Associated Diagnosis Comments HC URINALYSIS AUTO W/MICRO Routine 11/04/2024 11:24 AM CDT Chronic kidney disease, stage 3b (CMS/HCC) OUTSIDE LAB (SCAN ORDER) Routine 10/29/2024 LIPID PANEL Routine 07/23/2009 12:00 AM SENIOR SITE MANAGER from Last 3 Months or Most Recently Relevant to Health Maintenance Results * (ABNORMAL) URINALYSIS (11/04/2024 11:24 AM CDT) COLOR (U) YELLOW 11/04/2024 11:52 AM CDT [facility] TRANSPARENCY CLEAR 11/04/2024 11:52 AM CDT [facility] SPECIFIC GRAVITY (U) 1.020 1.000 - 1.025 11/04/2024 11:52 AM CDT [facility] U PH 5.5 5.0 - 8.0 11/04/2024 11:52 AM CDT [facility] LEUKOCYTES (U) TRACE(A) NEGATIVE 11/04/2024 11:52 AM CDT [facility] NITRITES NEGATIVE NEGATIVE 11/04/2024 11:52 AM CDT [facility] PROTEIN RANDOM (U) NEGATIVE NEGATIVE 11/04/2024 11:52 AM CDT [facility] GLUCOSE (U) 2+(A) NEGATIVE 11/04/2024 11:52 AM CDT [facility] KETONES MG/DL (U) NEGATIVE NEGATIVE 11/04/2024 11:52 AM CDT [facility] UROBILINOGEN 0.2 <1.0 EU/DL 11/04/2024 11:52 AM CDT [facility] BILIRUBIN (U) NEGATIVE NEGATIVE 11/04/2024 11:52 AM CDT [facility] BLOOD (U) NEGATIVE NEGATIVE 11/04/2024 11:52 AM CDT [facility] WBC/HPF 0-5 0 - 5 /HPF 11/04/2024 11:52 AM CDT [facility] RBC/HPF 0-5 0 - 5 /HPF 11/04/2024 11:52 AM CDT [facility] EPI/LPF FEW /LPF 11/04/2024 11:52 AM CDT [facility] BACTERIA (U) 1+ /HPF 11/04/2024 11:52 AM CDT [facility] URINE SPECIMEN OBTAINED BY CLEAN CATCH PROCEDURE / Unknown 11/04/2024 11:24 AM CDT Ella Witt MD URINE ORDERABLES Final Res ult [facility] [place] [address], * OUTSIDE LAB (10/29/2024) 10/29/2024 us Doc Cikda Scanned SCANNING Final Result [facility] ONBASE * LIPID PANEL (07/23/2009 12:00 AM SENIOR SITE MANAGER) TRIGLYCERIDES 132 0 - 150 mg/dl [employer] TO EPIC CONVERSION CHOLESTEROL 180 0 - 200 mg/dl [employer] TO EPIC CONVERSION HDL 61 40 - 59 mg/dl [employer] TO EPIC CONVERSION LDL CONVERSION 93 0 - 100 mg/dl [employer] TO EPIC CONVERSION CHOL/HDL RATIO 3.0 <4.0 (Calc) [employer] TO EPIC CONVERSION 07/23/2009 07/23/2009 Narrative [employer] TO EPIC CONVERSION - 07/23/2009 1:31 PM SENIOR SITE MANAGER Reviewed by ANGELA Jul 23 2009 1:33:00:000PM us Generic Conversion Md [facility] Final R esult [employer] TO EPIC CONVERSION from Last 3 Months or Most Recently Relevant to Health Maintenance Insurance MEDICAID DEPT OF [address] [place] [address] MEDICAID [place] [address] MEDICAID Advance Directives * Full Code (Latest Code Status on File) Date Activated Date Inactivated Comments 06/29/2022 9:52 AM 06/29/2022 1:43 PM Care Teams Subcontracts Manager Relationship Specialty Start Date End Date Virgilio Meehan DO [address] [place] [id number] PCP - General FAMILY PRACTICE 09/08/22 Cee Liu APRN, DOCTOR OF CHIROPRACTIC-C [address] [place] [address] [address] [place] [address] NURSE PRACTITIONER 05/27/22 Mame Osborn MD [address] [place] [address] INTERVENTIONAL CARDIOLOGY 05/10/24
--- OUTSIDE RECORDS SUMMARY | 2024-12-26 10:34 | XMS_ITS ---
Author Organization [facility] Address [address] [facility] [address] [place], [place] [id number] Care Team Providers Care Productivity Engineer Name Role Phone MIRIAN MOSHER [phone] Virgilio Meehan Unavailable Unavailable REASON FOR VISIT DIABETIC SHOES AND INSERTS Encounters Encounter Location Date Provider Diagnosis [facility] [address] [facility] [address] [place], [place] [id number] 12/09/2024 MIRIAN MOSHER Plan Of Treatment Next Appt Details Provider Name:WILFREDO MARTIN, 01/02/2025 02:10:00 PM, [address] [place] [address], [phone], Progress Notes * MATEUSZ MONROE ADOB:[birth year] (59 yo F)Acc No.[id number]:12/09/2024 Patient: Zay AGATHA MATEUSZ Gutierrez :1965 A ge:59 Y S ex:Female Address:[address] [place] [address], [address] * true * Date: Generated for Printi ng/Fadaviang/eTransmitting on: 0 12/26/2024 10:33 AM CDT
--- OUTSIDE RECORDS SUMMARY | 2024-12-26 10:34 | XMS_ITS | Clinical Summary ---
Author Organization [facility] [address] Address [address] [place] [address] Care Team Providers Care Textile Technical Officer Name Role Phone Willian Mendoza MD Primary Care Provider [phone] Allergies Active Allergy Reactions Criticality Noted Date Comments Amoxicillin-Pot Clavulanate Diarrhea Low 05/27/2022 Metformin Diarrhea Low 07/19/2022 Pantoprazole Other (See comments) Low 05/27/2022 Hypomagnesemia Medications lancing device misc Lancing device for Contour next meter 0 013 Active allopurinol (ZYLOPRIM) 100 mg tablet take 1 tablet by oral route every day 0 0 016 Active pravastatin (PRAVACHOL) 20 mg tablet take 2 tablet by oral route every day 0 0 016 Active Additional Information Patient taking differently:20 mgoral Daily, Reported on 08/07/2024 losartan (COZAAR) 50 mg tablet take 2 tablet by oral route every day 0 0 016 Active Additional Information Patient taking differently: 100 mg oral Daily, Reported on 08/07/2024 magnesium gluconate (MAGONATE) 500 mg (27 mg elemental) tabletIndications :hypomagnesemia Take 1 tablet (500 mg total) by mouth 2 (two) times a day Active jdwmliqspfgj-Vq-n marva-minerals tablet Take 1 tablet by mouth daily [...] month Active TRUE METRIX GLUCOSE TEST STRIP stripIndications: Type 2 diabetes mellitus with hyperglycemia, with long-term current use of insulin (HCC) USE TO TEST BLOOD SUGARS 4 TIMES A DAY 400 each 1 020 Active verapamil SR (CALAN SR) 120 mg CR tablet Take 1 tablet (120 mg total) by mouth daily Active fluticasone propionate (FLONASE) 50 mcg/actuation nasal spray Active HYDROcodone-aceta minophen (NORCO) 7.5-325 mg per tablet Active cetirizine (ZyrTEC) 10 mg tablet Take 1 tablet (10 mg total) by mouth daily Active DULoxetine DR (CYMBALTA) 20 mg capsule Take 1 capsule (20 mg total) by mouth daily Active ferrous sulfate 325 mg (65 mg of elemental iron) tablet Take 1 tablet (325 mg total) by mouth 2 (two) times a day Active cholecalciferol (VITAMIN D-3) 4,000 unit capsule Active lancets (TRUEplus Lancets) 28 gauge miscIndications:T ype 2 diabetes mellitus with hyperglycemia, with long-term current use of insulin ([facility]) USE FOR TESTING FOUR TIMES A DAY DIRECTED 400 each 3 022 Active pen needle, diabetic (TRUEplus Pen Needle) 31 gauge x 3/16 needle Use to inject insulin up to 5 times daily 450 each 2 022 Active alcohol swabs (BD Alcohol Swabs) pads, medicatedIndicati ons:Type 2 diabetes mellitus with hyperglycemia, with long-term current use of insulin ([facility]) USE DIRECTED 4 TIMES DAILY 400 each 2 022 Active isosorbide mononitrate ER (IMDUR) 30 mg 24 hr tablet Take 1 tablet (30 mg total) by mouth daily Active cholestyramine (QUESTRAN) 4 gram powder 023 Active dicyclomine (BENTYL) 20 mg tablet 023 Active doxycycline 100 mg tablet Active nitrofurantoin (MACRODANTIN) 100 mg capsule Active propranolol LA (INDERAL LA) 60 mg 24 hr capsule 023 Active pancrelipase (CREON) 3,000 units of lipase capsuleIndication s:exocrine pancreatic insufficiency Take 1 capsule by mouth 3 (three) times a day Pt stated really unsure of dose Active cyclobenzaprine (FLEXERIL) 10 mg tablet 024 Active magnesium hydroxide 600 mg tablet,chewable Take 1 tablet by mouth 2 (two) times a day Active ondansetron ODT (ZOFRAN-ODT) 4 mg disintegrating tablet Active Creon 36,000-114,000- 180,000 unit capsule Active levothyroxine (SYNTHROID) 100 mcg tablet Take 1 tablet (100 mcg total) by mouth assembler camper before breakfast 90 tablet 3 024 Active Farxiga 10 mg tabletIndications :Type 2 diabetes mellitus with hyperglycemia, with long-term current use of insulin (HCC) TAKE 1 TABLET BY MOUTH DAILY 100 tablet 2 025 Active blood-glucose sensor device Change sensors every 10 days Dx. E11.65 9 each 3 025 Active Ozempic 2 mg/dose (8 mg/3 mL) pen injector injectionIndicati ons:Type 2 diabetes mellitus with hyperglycemia, with long-term current use of insulin (HCC) INJECT SUBCUTANEOUSLY 2 MG EVERY WEEK 9 mL 3 025 Active Ozempic 2 mg/dose (8 mg/3 mL) pen injector injection INJECT SUBCUTANEOUSLY 2 MG EVERY WEEK 9 mL 3 024 2024 Discontinued Active Problems Problem Noted Date Diagnosed Date Acquired hypothyroidism 03/17/2022 Assessment & Plan (08/07/2024 5:51 PM COTTON BAG CLIPPER): Chronic, stable. Continue levothyroxine Update TFTs Assessment & Plan (08/10/2023 3:53 PM COTTON BAG CLIPPER): Chronic, well-controlled Importance of taking levothyroxine on [...] 04/17/2018 Assessment & Plan (08/07/2024 5:51 PM COTTON BAG CLIPPER): Chronic, stable Update lipid profile Continue statin therapy Assessment & Plan (08/10/2023 3:53 PM COTTON BAG CLIPPER): Chronic, well-controlled Continue statin therapy with Pravachol Assessment & Plan (01/17/2023 1:59 PM CDT): Chronic, well controlled Low fat Low cholesterol diet Exercise Continue statin therapy with Pravachol Assessment & Plan (03/17/2022 9:47 AM CDT): Chronic problem. On statin therapy, no changes. Assessment & Plan (10/28/2021 1:21 PM COTTON BAG CLIPPER): Chronic problem. On statin therapy, no changes. [...] Pravachol Assessment & Plan (09/27/2019 9:29 AM COTTON BAG CLIPPER): LDL at goal. Trigs elevated. Continue statin [...] therapy Assessment & Plan (08/07/2018 1:59 PM COTTON BAG CLIPPER): At goal on current medications. Assessment & [...] dicussed Assessment & Plan (09/27/2019 9:29 AM COTTON BAG CLIPPER): Continues to do well with wt loss [...] adjusted. Assessment & Plan (08/07/2018 1:59 PM COTTON BAG CLIPPER): Continues to gain weight. Little attempt at diet and exercise. Reviewed importance of avoiding juice, soda, high fat, high carb foods. Assessment & Plan (10/05/2017 2:49 PM COTTON BAG CLIPPER): Diet and exercise were discussed. 1200 Calorie diet advised 45-60 min aerobic / resistance exercise most days of the week recommended. Bariatric surgery medically indicated Assessment & Plan (07/20/2017 4:17 PM COTTON BAG CLIPPER): Importance of following diet and exercising discussed. [...] changes. Assessment & Plan (10/28/2021 1:21 PM COTTON BAG CLIPPER): Controlled on current medications, no changes. Assessment [...] microalbumin Assessment & Plan (09/27/2019 9:29 AM COTTON BAG CLIPPER): Controlled on current medications. Continue plan. Assessment & Plan (06/06/2019 2:49 PM CDT): Controlled on current medications. Continue plan. Assessment & Plan (11/01/2018 2:04 PM CDT): Goal blood pressure is less than 140/85 Low salt diet recommended Daily aerobic exercise Continue current meds, including ALYCE-I or ARB Assessment & Plan (08/07/2018 2:00 PM COTTON BAG CLIPPER): Controlled on current medications. Assessment & Plan (04/17/2018 2:07 PM CDT): Goal blood pressure is less than 140/85 Low salt diet recommended Daily aerobic exercise Continue current meds, including ALYCE-I or ARB Assessment & Plan (10/05/2017 2:50 PM COTTON BAG CLIPPER): Goal blood pressure is less than 140/85 Low salt diet recommended Daily aerobic exercise Continue current meds, including ALYCE-I or ARB Assessment & Plan (07/20/2017 4:18 PM COTTON BAG CLIPPER): Controlled on current medications. Assessment & Plan (04/06/2017 4:28 PM CDT): At goal on current medications. Hyperlipidemia 09/19/2012 Overview (11/24/2016): HYPERLIPIDEMIA NEC/NOS Assessment & Plan (06/06/2019 2:49 PM CDT): Lipid panel ordered Assessment & Plan (07/20/2017 4:18 PM COTTON BAG CLIPPER): Will check lipid panel Assessment & Plan (04/06/2017 4:28 PM CDT): Check labs and focus on low fat foods Furuncle of trunk 06/28/2012 Overview (11/23/2016): Carbuncle and furuncle of trunk Type 2 diabetes mellitus 06/28/2012 Overview (11/24/2016): DMII WO CMP UNCNTRLD Assessment & Plan (08/07/2024 5:50 PM COTTON BAG CLIPPER): Chronic, stable Diet and exercise were emphasized Continue Farxiga and Ozempic Assessment & Plan (02/13/2024 4:29 PM CDT): Chronic, well-controlled. Continue Ozempic 2 mg weekly Farxiga 10 mg Importance of diet and exercise was discussed Assessment & Plan (08/10/2023 3:52 PM COTTON BAG CLIPPER): Chronic, well-controlled, with some postprandial hyperglycemia Continue [...] Farxita Assessment & Plan (07/19/2022 1:34 PM COTTON BAG CLIPPER): Hba1c was Lab Results Component Value Date [...] today. Assessment & Plan (10/28/2021 1:43 PM COTTON BAG CLIPPER): Chronic problem, not at goal. Increase NL [...] Novolog, 12 units with dinner only Continue Doris and Joega. Assessment & Plan (05/28/2020 4:24 PM CDT): [...] breakfast Assessment & Plan (09/27/2019 9:31 AM COTTON BAG CLIPPER): A1c increased to 7.8. Pattern acceptable during the day but elevated in evening due to pattern of eating. Diet and importance of evaluating ac/pc BG trends reviewed. Continue Lantus, Doris Moore. Advised consistency with how Novolog is being [...] goal hba1c is under 7.0 to prevent detention diabetes complications ( eye , kidney and [...] discussed. Assessment & Plan (08/07/2018 2:02 PM COTTON BAG CLIPPER): A1c 8.1. Baseline BG reported at goal. [...] discussed. Assessment & Plan (10/05/2017 2:51 PM COTTON BAG CLIPPER): Hba1c was . 9.6 . today, indicating [...] discussed. Assessment & Plan (07/20/2017 4:17 PM COTTON BAG CLIPPER): A1c improved 8.7, ~ 2%. Mostly from [...] Team Description 11/28/2024 Telephone [facility] [address] [address] Erika Mandel FOOTWEAR PRODUCTION MACHINE OPERATOR 11/21/2024 Telephone [facility] [address] [address] Anthony Castillo MD PA in CMM Dexcom G7 sensor 10/18/2024 Telephone [facility] [address] [address] Anthony Castillo MD from Last 3 Months Surgical History Surgery Date Site/Laterality Comments BARIATRIC SURGERY 08/21/2018 - 08/20/2019 Gastric sleeve at [facility] Medical History Medical History Date Comments Hyperlipidemia [...] on file Legal Sex Female 10:22 AM COTTON BAG CLIPPER Gender Identity Not on file Sexual Orientation Straight 08/07/2024 2: 11 PM COTTON BAG CLIPPER Obstetrics History Last Filed Vital Signs Vital Sign Reading Time Taken Comments Blood Pressure 100/68 08/07/2024 2:37 PM COTTON BAG CLIPPER Pulse 66 08/07/2024 2:37 PM COTTON BAG CLIPPER Temperature - - Respiratory Rate 17 08/07/2024 2:37 PM COTTON BAG CLIPPER Oxygen Saturation - - Inhaled Oxygen Concentration - - Weight 109 kg (240 lb 6.4 oz) 08/07/2024 2:37 PM COTTON BAG CLIPPER Height 170.2 cm (5' 7 ) 08/07/2024 2:37 PM COTTON BAG CLIPPER Body Mass Index 37.65 08/07/2024 2:37 PM COTTON BAG CLIPPER Plan of Treatment Health Maintenance Due Date [...] Diagnosis Comments EGFR Routine 08/07/2024 3:23 PM COTTON BAG CLIPPER Type 2 diabetes mellitus with hyperglycemia, with long-term current use of insulin (HCC) POCT HEMOGLOBIN A1C Routine 08/07/2024 2 :38 PM COTTON BAG CLIPPER Type 2 diabetes mellitus with hyperglycemia, with long-term current use of insulin (HCC) HM DIABETES EYE EXAM Routine 10/11/2023 9:29 AM COTTON BAG CLIPPER ALBUMIN CREATININE RATIO, URINE Routine 08/28/2023 7:38 AM COTTON BAG CLIPPER LIPID PANEL Routine 08/10/2023 1:53 PM COTTON BAG CLIPPER Hyperlipidemia associated with type 2 diabetes mellitus (HCC) from Last 3 Months or Most Recently Relevant to Health Maintenance Results * (ABNORMAL) eGFR (08/07/2024 3:23 PM COTTON BAG CLIPPER) eGFR 35(L) >=60 mL/min/1. 73 m2 Comment: [...] last reviewed 2021. Blood 08/07/2024 3:23 PM COTTON BAG CLIPPER 08/07/2024 6:55 PM COTTON BAG CLIPPER us Anthony Castillo MD LAB BLOOD ORDERABLES Final Resul t [facility] [id number] Department [place] [address] * (ABNORMAL) POCT hemoglobin A1c (08/07/2024 2:38 PM COTTON BAG CLIPPER) Hemoglobin A1C, POC 7.1 4.0 - 5.6 % Comment:None Capillary blood 08/07/2024 2 :38 PM COTTON BAG CLIPPER Result [facility] us Anthony Castillo MD POINT OF CARE TEST ORDERABLES Fi nal Result * (ABNORMAL) HM DIABETES EYE EXAM (10/11/2023 9:29 AM COTTON BAG CLIPPER) Isis Salgado MD HEALTH MAINTENANCE Final Result * (ABNORMAL) Albumin Creatinine Ratio, Urine (08/28/2023 7:38 AM COTTON BAG CLIPPER) SCRIBED Creatinine, Urine 75.44 40 - 278 EXTERNAL LAB SCRIBED Microalbumin 13.4(A) 0.0 - 11.9 EXTERNAL LAB SCRIBED Microalb/Creat Ratio 0.18 0 - 0.20 EXTERNAL LAB Urine 08/28/2023 7:38 AM COTTON BAG CLIPPER us Historical Provider LAB URINE ORDERABLES Edit ed Result - Final EXTERNAL LAB * (ABNORMAL) Lipid panel (08/10/2023 1:53 PM COTTON BAG CLIPPER) Cholesterol 164 30 - 199 mg/dL OLGA [...] 3 OLGA HORNER Blood 08/10/2023 1:53 PM COTTON BAG CLIPPER 08/10/2023 7:31 PM COTTON BAG CLIPPER us Anthony Castillo MD LAB BLOOD ORDERABLES Final Resul t [facility] [id number] Department [place] [address] from Last 3 Months or Most Recently Relevant to Health Maintenance Insurance [facility] MED[facility]VANTAGE [employer] Care Teams Textile Technical Officer Relationship Specialty Start Date End Date Willian Mendoza MD PCP - General 02/18/16
--- OUTSIDE RECORDS SUMMARY | 2024-12-26 10:34 | XMS_ITS | Encounter Summary ---
Author Organization [facility] Address [facility] [place] [address] Care Team Providers Care Salon Customer Experience Specialist Name Role Phone Alexis Thurman MD Unavailable Cee Liu APRN, NP-C Unavailable Virgilio Meehan DO Primary Care Provider Mame Osborn MD Unavailable [phone] Encounter Details Date Type Department Care Team (Late Contact Info) Description 09/23/2022 [facility] [address] [place] [phone] Alexis Thurman MD [address] [place] [address] Social History Tobacco Use Types [...] Coronavirus/COVID-19? No / Unsure 09/08/2022 8:48 AM RADIO PERFORMER documented as of this encounter Plan of Treatment Upcoming Encounters Date Type Department Care Team (Late Contact Info) Description 05/12/2025 1:30 PM CDT Office Visit [facility] el [address] [place] [address] Cee Liu APRN, NATURAL SCIENCES MANAGER-C [address] [facility] [address] [place] [phone] documented as of this encounter Visit Diagnoses Not on filedocumented in this encounter Care Teams Salon Customer Experience Specialist Relationship Specialty Start Date End Date Virgilio Meehan DO [address] [place] [address] PCP - General FAMILY PRACTICE 09/08/22 Alexis Thurman MD [address] [place] [phone] [place] Supervisor Plastering CARDIOVASCULAR DISEASE 09/14/18 04/01/24 Cee Liu APRN, NATURAL SCIENCES MANAGER-C [address] [facility] [address] [phone] NURSE PRACTITIONER 05/27/22 Mame Osborn MD [address] [place] [address] INTERVENTIONAL CARDIOLOGY 05/10/24 documented as of this encounter
--- OUTSIDE RECORDS SUMMARY | 2024-12-26 10:34 | XMS_ITS | Encounter Summary ---
Author Organization [facility] Address [facility] access hospital[address] [place] [address] Care Team Providers Care Inner Diameter Grinder Tool Name Role Phone Alexis Thurman MD Unavailable [phone] Willian Mendoza MD Primary Care Provider [phone] Cee Liu APRN, ACCOUNTING GENERALIST-C Unavailable [phone] Virgilio Meehan DO Primary Care Provider [phone] Mame Osborn MD Unavailable [phone] Encounter Details Date Type Department Care Team (Late st Contact Info) Description 06/24/2022 Hospital Orders Only [facility] Pre[facility]Post [address] [place] [address] Alexis Thurman MD [address] [place] [address] Social History Tobacco Use Types [...] Description 05/12/2025 1:30 PM CDT Office Visit [facility] el [address] [place] [phone] Cee Liu APRN, ACCOUNTING GENERALIST-C [address] [facility] [address] [phone] documented as of this encounter Visit Diagnoses Not on filedocumented in this encounter Care Teams Inner Diameter Grinder Tool Relationship Specialty Start Date End Date Willian Mendoza MD [address] [place] [address] PCP - General INTERNAL MEDICINE 09/14/18 09/07/22 Virgilio Meehan DO [address] [place] [address] PCP - General FAMILY PRACTICE 09/08/22 Alexis Thurman MD [address] [place] [phone] [employer] Tooling Engineering Tech CARDIOVASCULAR DISEASE 09/14/18 04/01/24 Cee Liu APRN, ACCOUNTING GENERALIST-C [address] [phone] NURSE PRACTITIONER 05/27/22 Mame Osborn MD [address] [place], [place] [address] INTERVENTIONAL CARDIOLOGY 05/10/24 documented as of this encounter
--- OUTSIDE RECORDS SUMMARY | 2024-12-26 10:34 | XMS_ITS | Encounter Summary ---
Author Organization [facility] Address [facility] [place] [address] Care Team Providers Care Account Engineer Name Role Phone Alexis Thurman MD Unavailable [phone] Willian Mendoza MD Primary Care Provider [phone] Cee Liu APRN, VALVE INSERTER-C Unavailable [phone] Virgilio Meehan DO Primary Care Provider [phone] Mame Osborn MD Unavailable [phone] Encounter Details Date Type Department Care Team (Late st Contact Info) Description 11/04/2017 Abstract [facility] [address] [place] [address] , Generic ConversionMD Social History Tobacco Use [...] Description 05/12/2025 1:30 PM CDT Office Visit [facility] eld [address] [place] [address] Cee Liu, ANGEL, VALVE INSERTER-C [address] [facility] [address] [place] [phone] documented as of this encounter Visit Diagnoses Not on filedocumented in this encounter Care Teams Account Engineer Relationship Specialty Start Date End Date Willian Mendoza MD [address] [place] [address] PCP - General INTERNAL MEDICINE 09/14/18 09/07/22 Virgilio Meehan DO [address] [place] [address] PCP - General FAMILY PRACTICE 09/08/22 Alexis Thurman MD [address] [place] [address] [facility] CARDIOVASCULAR DISEASE 09/14/18 04/01/24 Cee Liu, STILL OPERATOR WHISKEY, VALVE INSERTER-C [address] [facility] [address] [place] [address] NURSE PRACTITIONER 05/27/22 Mame Osborn MD [address] [place] [address] INTERVENTIONAL CARDIOLOGY 05/10/24 documented as of this encounter
--- OUTSIDE RECORDS SUMMARY | 2024-12-26 10:34 | XMS_ITS | Referral Summary ---
Author Organization [address] Address [address] [place] [phone] Care Team Providers Care Operations Administrative Assistant Name Role Phone Willian Mendoza MD Primary Care Provider [phone] Encounters Date Type Department Care Team Description 11/28/2024 Telephone [facility] [address] [address] Erika Mandel [facility] 11/21/2024 Telephone [facility] [address] [address] Anthony Castillo MD PA in CM Dexcom G7 sensor 10/18/2024 Telephone [facility] [address] [address] Anthony Castillo MD from Last [...] mouth 2 (two) times a day Active hnyirijyywsg-Vg-e marva-minerals tablet Take 1 tablet by mouth [...] DIRECTED 4 TIMES DAILY 400 each 2 Active isosorbide mononitrate ER (IMDUR) 30 mg 24 hr tablet Take 1 tablet (30 mg total) by mouth daily Active cholestyramine (QUESTRAN) 4 gram powder Active dicyclomine (BENTYL) 20 mg tablet 023 Active doxycycline 100 mg tablet 023 Active nitrofurantoin (MACRODANTIN) 100 mg capsule 023 Active propranolol LA (INDERAL LA) 60 mg [...] ondansetron ODT (ZOFRAN-ODT) 4 mg disintegrating tablet 024 Active Creon 36,000-114,000- 180,000 unit capsule Active levothyroxine (SYNTHROID) 100 mcg tablet Take 1 tablet (100 mcg total) by mouth log deck tender before breakfast 90 tablet 3 024 Active [...] 03/17/2022 Assessment & Plan (08/07/2024 5:51 PM ADULT NURSE PRACTITIONER): Chronic, stable. Continue levothyroxine Update TFTs Assessment & Plan (08/10/2023 3:53 PM ADULT NURSE PRACTITIONER): Chronic, well-controlled Importance of taking levothyroxine on [...] 04/17/2018 Assessment & Plan (08/07/2024 5:51 PM ADULT NURSE PRACTITIONER): Chronic, stable Update lipid profile Continue statin therapy Assessment & Plan (08/10/2023 3:53 PM ADULT NURSE PRACTITIONER): Chronic, well-controlled Continue statin therapy with Pravachol Assessment & Plan (01/17/2023 1:59 PM CDT): Chronic, well controlled Low fat Low cholesterol diet Exercise Continue statin therapy with Pravachol Assessment & Plan (03/17/2022 9:47 AM CDT): Chronic problem. On statin therapy, no changes. Assessment & Plan (10/28/2021 1:21 PM ADULT NURSE PRACTITIONER): Chronic problem. On statin therapy, no changes. [...] Pravachol Assessment & Plan (09/27/2019 9:29 AM ADULT NURSE PRACTITIONER): LDL at goal. Trigs elevated. Continue statin [...] therapy Assessment & Plan (08/07/2018 1:59 PM ADULT NURSE PRACTITIONER): At goal on current medications. Assessment & [...] dicussed Assessment & Plan (09/27/2019 9:29 AM ADULT NURSE PRACTITIONER): Continues to do well with wt loss [...] adjusted. Assessment & Plan (08/07/2018 1:59 PM ADULT NURSE PRACTITIONER): Continues to gain weight. Little attempt at diet and exercise. Reviewed importance of avoiding juice, soda, high fat, high carb foods. Assessment & Plan (10/05/2017 2:49 PM ADULT NURSE PRACTITIONER): Diet and exercise were discussed. 1200 Calorie diet advised 45-60 min aerobic / resistance exercise most days of the week recommended. Bariatric surgery medically indicated Assessment & Plan (07/20/2017 4:17 PM ADULT NURSE PRACTITIONER): Importance of following diet and exercising discussed. [...] changes. Assessment & Plan (10/28/2021 1:21 PM ADULT NURSE PRACTITIONER): Controlled on current medications, no changes. Assessment [...] microalbumin Assessment & Plan (09/27/2019 9:29 AM ADULT NURSE PRACTITIONER): Controlled on current medications. Continue plan. Assessment & Plan (06/06/2019 2:49 PM CDT): Controlled on current medications. Continue plan. Assessment & Plan (11/01/2018 2:04 PM CDT): Goal blood pressure is less than 140/85 Low salt diet recommended Daily aerobic exercise Continue current meds, including ALYCE-I or ARB Assessment & Plan (08/07/2018 2:00 PM ADULT NURSE PRACTITIONER): Controlled on current medications. Assessment & Plan (04/17/2018 2:07 PM CDT): Goal blood pressure is less than 140/85 Low salt diet recommended Daily aerobic exercise Continue current meds, including ALYCE-I or ARB Assessment & Plan (10/05/2017 2:50 PM ADULT NURSE PRACTITIONER): Goal blood pressure is less than 140/85 Low salt diet recommended Daily aerobic exercise Continue current meds, including ALYCE-I or ARB Assessment & Plan (07/20/2017 4:18 PM ADULT NURSE PRACTITIONER): Controlled on current medications. Assessment & Plan (04/06/2017 4:28 PM CDT): At goal on current medications. Hyperlipidemia 09/19/2012 Overview (11/24/2016): HYPERLIPIDEMIA NEC/NOS Assessment & Plan (06/06/2019 2:49 PM CDT): Lipid panel ordered Assessment & Plan (07/20/2017 4:18 PM ADULT NURSE PRACTITIONER): Will check lipid panel Assessment & Plan (04/06/2017 4:28 PM CDT): Check labs and focus on low fat foods Furuncle of trunk 06/28/2012 Overview (11/23/2016): Carbuncle and furuncle of trunk Type 2 diabetes mellitus 06/28/2012 Overview (11/24/2016): DMII WO CMP UNCNTRLD Assessment & Plan (08/07/2024 5:50 PM ADULT NURSE PRACTITIONER): Chronic, stable Diet and exercise were emphasized Continue Farxiga and Ozempic Assessment & Plan (02/13/2024 4:29 PM CDT): Chronic, well-controlled. Continue Ozempic 2 mg weekly Farxiga 10 mg Importance of diet and exercise was discussed Assessment & Plan (08/10/2023 3:52 PM ADULT NURSE PRACTITIONER): Chronic, well-controlled, with some postprandial hyperglycemia Continue [...] Farxita Assessment & Plan (07/19/2022 1:34 PM ADULT NURSE PRACTITIONER): Hba1c was Lab Results Component Value Date [...] today. Assessment & Plan (10/28/2021 1:43 PM ADULT NURSE PRACTITIONER): Chronic problem, not at goal. Increase NL [...] units with dinner only Continue Doris and Oscar. Assessment & Plan (05/28/2020 4:24 PM CDT): [...] breakfast Assessment & Plan (09/27/2019 9:31 AM ADULT NURSE PRACTITIONER): A1c increased to 7.8. 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 Assessment & Plan (08/07/2018 2:02 PM ADULT NURSE PRACTITIONER): A1c 8.1. Baseline BG reported at goal. [...] discussed. Assessment & Plan (10/05/2017 2:51 PM ADULT NURSE PRACTITIONER): Hba1c was . 9.6 . today, indicating [...] discussed. Assessment & Plan (07/20/2017 4:17 PM ADULT NURSE PRACTITIONER): A1c improved 8.7, ~ 2%. Mostly from [...] on file Legal Sex Female 10:22 AM ADULT NURSE PRACTITIONER Gender Identity Not on file Sexual Orientation Straight 08/07/2024 2: 11 PM ADULT NURSE PRACTITIONER Last Filed Vital Signs Vital Sign Reading Time Taken Comments Blood Pressure 100/68 08/07/2024 2:37 PM ADULT NURSE PRACTITIONER Pulse 66 08/07/2024 2:37 PM ADULT NURSE PRACTITIONER Temperature - - Respiratory Rate 17 08/07/2024 2:37 PM ADULT NURSE PRACTITIONER Oxygen Saturation - - Inhaled Oxygen Concentration - - Weight 109 kg (240 lb 6.4 oz) 08/07/2024 2:37 PM ADULT NURSE PRACTITIONER Height 170.2 cm (5' 7 ) 08/07/2024 2:37 PM ADULT NURSE PRACTITIONER Body Mass Index 37.65 08/07/2024 2:37 PM ADULT NURSE PRACTITIONER Plan of Treatment Not on file Procedures Procedure Name Priority Date/Time Associated Diagnosis Comments EGFR Routine 08/07/2024 3:23 PM ADULT NURSE PRACTITIONER Type 2 diabetes mellitus with hyperglycemia, with long-term current use of insulin (HCC) POCT HEMOGLOBIN A1C Routine 08/07/2024 2 :38 PM ADULT NURSE PRACTITIONER Type 2 diabetes mellitus with hyperglycemia, with long-term current use of insulin (HCC) HM DIABETES EYE EXAM Routine 10/11/2023 9:29 AM ADULT NURSE PRACTITIONER ALBUMIN CREATININE RATIO, URINE Routine 08/28/2023 7:38 AM ADULT NURSE PRACTITIONER LIPID PANEL Routine 08/10/2023 1:53 PM ADULT NURSE PRACTITIONER Hyperlipidemia associated with type 2 diabetes mellitus (HCC) from Last 3 Months or Most Recently Relevant to Health Maintenance Results * (ABNORMAL) eGFR (08/07/2024 3:23 PM ADULT NURSE PRACTITIONER) eGFR 35(L) >=60 mL/min/1. 73 m2 Comment: [...] last reviewed 2021. Blood 08/07/2024 3:23 PM ADULT NURSE PRACTITIONER 08/07/2024 6:55 PM ADULT NURSE PRACTITIONER us Anthony Castillo MD LAB BLOOD ORDERABLES Final Resul t OLGA [id number] [address] Department [place] [address] * (ABNORMAL) POCT hemoglobin A1c (08/07/2024 2:38 PM ADULT NURSE PRACTITIONER) Hemoglobin A1C, POC 7.1 4.0 - 5.6 % Comment:None Capillary blood 08/07/2024 2 :38 PM ADULT NURSE PRACTITIONER Result [facility] Anthony Castillo MD POINT OF CARE TEST ORDERABLES Fi nal Result * (ABNORMAL) DIABETES EYE EXAM (10/11/2023 9:29 AM ADULT NURSE PRACTITIONER) Isis Salgado MD HEALTH MAINTENANCE Final Result * (ABNORMAL) Albumin Creatinine Ratio, Urine (08/28/2023 7:38 AM ADULT NURSE PRACTITIONER) SCRIBED Creatinine, Urine 75.44 40 - 278 EXTERNAL LAB SCRIBED Microalbumin 13.4(A) 0.0 - 11.9 EXTERNAL LAB SCRIBED Microalb/Creat Ratio 0.18 0 - 0.20 EXTERNAL LAB Urine 08/28/2023 7:38 AM ADULT NURSE PRACTITIONER us Historical Provider LAB URINE ORDERABLES Edit ed Result - Final EXTERNAL LAB * (ABNORMAL) Lipid panel (08/10/2023 1:53 PM ADULT NURSE PRACTITIONER) Cholesterol 164 30 - 199 mg/dL OLGA [...] 3 [facility] HORNER Blood 08/10/2023 1:53 PM ADULT NURSE PRACTITIONER 08/10/2023 7:31 PM ADULT NURSE PRACTITIONER us Anthony Castillo MD LAB BLOOD ORDERABLES Final Resul t OLGA [address] [address] [place] [address] from Last 3 Months or Most Recently Relevant to Health Maintenance Insurance IDPA [facility] MEDICARE ADVANTAGE [facility] MEDICARE ADVANTAGE [facility] Care Teams Operations Administrative Assistant Relationship Specialty Start Date End Date Willian Mendoza MD [facility] - General 02/18/16
--- OUTSIDE RECORDS SUMMARY | 2024-12-26 10:34 | XMS_ITS | Data Portability ---
Author Organization [facility] Address [address] [place] [address] Care Team Providers Care Spa Technician Name Role Phone ELKE JACOBO Primary Care Provider [phone] Assessment Encounter Date Assessment Date Assessment LastModified [...] scula r No observ ation record ed. [facility]) [address] [place], [address], 04/10/2022 00:58:08 Result Notes None recorded. Problems Name Problem SNOMED Code Status Onset Date Resolution Date Notes Provider Name and Address Organization Details Recorded Time SNOMED CT Concept Completed 201503/22/2022 Encntr for general adult medical exam w/o abnormal findings; Recorded Elsewhere : No Locati on: [facility] So urce: EHR Chron ic: N Practic e ID: [id number] Bill able Time: 03:30:00 PM Cecilia Rangel [facility] 2 16:06:09 Menopaus e present [id number] Completed 201503/22/2022 Menopausa l and female climacter ic states;Re corded Elsewhere : No Locati on: [facility] So urce: EHR Chron ic: N Practic e ID: [id number] Bill able Time: 01:00:00 PM Cecilia Rangel [facility] 2 16:06:09 Screenin g for malignan t neoplasm of rectum Completed 201503/22/2022 Encounter for screening for malignant neoplasm of rectum;Re corded Elsewhere : No Locati on: [facility] So urce: EHR Chron ic: N Practic e ID: [id number] Bill able Time: 03:30:00 PM Cecilia [facility] 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 So urce: EHR Chron ic: N Practic e ID: [id number] Bill able Time: 03:30:00 PM Cecilia Rangel [facility] 2 16:06:09 Screenin g for malignan t neoplasm of cervix Completed 201503/22/2022 Encounter for screening for malignant neoplasm of cervix;Re corded Elsewhere : No Locati on: [facility] So urce: EHR Chron ic: N Practic e ID: [id number] Bill able Time: 03:30:00 PM Cecilia [facility] 2 16:06:09 Congenit al malforma tion [id number] Completed 201503/22/2022 Congenita l anomaly;R ecorded Elsewhere : No Locati on: [facility] So urce: EHR Chron ic: N Practic e ID: 0001 Bill able Time: 03:30:00 PM Cecilia Rangel null, [facility] 16:06:09 Problem Notes None recorded. Procedures Surgical History Date Name Laterality Status Provider Name and Address Organization Details Recorded Time 08/21/19 19 laparoscopic sleeve gastrectomy completed [facility] 03/23/2022 15:05:08 08/21/19 17 operation on mandible completed [facility] 03/23/2022 15:04:14 insertion of ureteral stent with ureterotomy completed [facility] 03/23/2022 15:03:53 Unlisted px femur/knee completed [facility] 03/23/2022 15:04:37 perinasal sinusotomy completed [facility] 03/23/2022 15:04:43 Carpal tunnel surgery completed [facility] 03/23/2022 15:04:53 Imaging Results Imaging Date Name Status LastModified by Organiz ation Details LastModified Time 03/31/2022 US, lower extremity, nonvascular completed [address], [address], 04/10/2022 00:58:08 Procedure Notes None recorded. Medical [...] Elsewher e: No Locat ion: [facility] Isidro odify By: hiral carbone DateTime : 04/05/20 16 12:01:40 PM Not Available Not Available Not Available Neurontin 300 mg capsule take 1 capsule by oral route 3 times every day 04/28 completed Prescrib ed Elsewher e: No Locat ion: [facility] odify By: wendy carbone DateTime : 03/08/20 16 09:00:54 AM Not Available Not Available Not Available verapamil 40 mg tablet take 1 tablet by oral route 3 times every day 03/23 completed Prescrib ed Elsewher e: Yes Loca tion: [facility] odify By: [email or web address] trick En counter DateTime [...] Elsewher e: Yes Loca tion: [facility] odify By: [email or web address] trick En counter DateTime : 01/27/20 16 01:00:00 PM Not Available Not Available Not Available propranol ol 60 mg tablet take 1 tablet by oral route 2 times every day 03/23 completed Prescrib ed Elsewher e: Yes [facility] By: [email or web address] trick En [...] Prescrib ed Elsewher e: Yes [facility] od[facility] By: [email or web address] trick En counter DateTime : 01/27/20 16 01:00:00 PM Not Available Not Available Not Available glimepiri de 1 mg tablet take 1 tablet by oral route every day 03/23 completed Prescrib ed Elsewher e: Yes Loca tion: [facility] odify By: wendy guevarauntean DateTime : 04/28/20 16 03:30:00 PM Not Available Not Available Not Available levothyro xine 100 mcg tablet active Not Available Not Available Not Available ropinirol e 0.25 mg tablet take 1 tablet by oral route every day q 4-6hrs prn 03/23 completed Prescrib ed Elsewher e: Yes Loca tion: [facility] odify By: wendy guevaraunter DateTime : 04/28/20 16 03:30:00 PM Not Available Not Available Not Available Humalog U-100 Insulin 100 unit/mL subcutane ous solution inject by subcutan eous route per prescrib er's instruct ions. Insulin dosing requires individu alizazacheryo n. 03/23 completed Prescrib ed Elsewher e: Yes Loca tion: [facility] odify By: wendy guevarauntean DateTime : 06/01/20 [...] Elsewher e: No Locat ion: [facility] odify By: wendy guevarauntean DateTime : 01/27/20 16 01:00:00 PM Not Available Not Available Not Available ranitidin e 300 mg capsule take 1 capsule by oral route every day at bedtime 03/23 completed Prescrib ed Elsewher e: Yes Loca tion: [facility] odify By: [email or web address] trick En counter DateTime : 01/27/20 16 01:00:00 PM Not Available Not Available Not Available pravastat in 20 mg tablet take 2 tablet by oral route every day active Not Available Not Available No t Available Estrace 0.5 mg tablet take 1 tablet by oral route every day 06/01 completed Prescrib ed Elsewher e: No Locat ion: [facility] odify By: [email or web address] Martin ncounter DateTime : 03/31/20 16 04:45:00 PM Not Available Not Available Not Available cefdinir 300 mg capsule 03/23 completed Not Available Not Available Not Available losartan 100 mg tablet take 1 tablet by oral route every day 03/23 completed Prescrib ed Elsewher e: Yes Loca tion: [facility] odify By: [email or web address] trick En counter DateTime : 01/27/20 16 01:00:00 PM Not Available Not Available Not Available fluticaso ne propionat e 50 mcg/actua tion nasal spray,karen pension active Not Available Not Available Not Available nortripty line 50 mg capsule take 1 capsule by oral route 2 times every day 2015 active Prescrib ed Elsewher e: Yes Loca tion: [facility] odify By: [email or web address] trick En counter DateTime : 01/27/20 16 01:00:00 PM Not Available Not Available Not Available Estrace 1 mg tablet take 1 tablet by oral route every day 2015 active Prescrib ed Elsewher e: No Locat ion: [facility] odify By: tgingric h Becki ter DateTime : 04/28/20 16 03:30:00 PM Not Available Not Available Not Available progester one micronize d 100 mg capsule take 1 capsule by oral route every day for 10 days in the evening 05/07 completed Prescrib ed Elsewher e: Yes Loca tion: [facility] odify By: [email or web address] Martin ncounter DateTime : 04/28/20 16 03:30:00 PM Not Available Not Available Not Available amoxicill in 875 mg-potass ium clavulana te 125 mg tablet 03/23 completed Not Available Not Available Not Available iron 18 mg tablet 2015 active Prescrib ed Elsewher e: Yes Loca tion: [facility] odify By: [email or web address] trick En counter DateTime : 01/27/20 16 01:00:00 PM Not Available Not Available Not Available magnesium 200 mg tablet 2015 active Prescrib ed Elsewher e: Yes Loca tion: [facility] odify By: [email or web address] trick En counter DateTime : 01/27/20 16 01:00:00 PM Not Available Not Available Not Available Vitamin D3 25 mcg (1,000 unit) tablet take 1 by Oral route once for 2 months then draw labs 2015 active Prescrib ed Elsewher e: Yes Loca tion: Robe mario [facility] odify By: [email or web address] trick En counter DateTime : 01/27/20 16 01:00:00 PM Not Available Not Available Not Available nitrofura ntoin monohydra te/macroc rystals 100 mg capsule active Not Available Not Available Not Available duloxetin e 20 mg capsule,d elayed release active Not Available Not Available Not Available Cinnamon 500 mg capsule 2015 active Prescrib ed Elsewher e: Yes Loca tion: [facility] odify By: [email or web address] trick En counter DateTime : 01/27/20 16 01:00:00 PM Not Available Not Available Not Available Lantus Solostar U-100 Insulin 100 unit/mL (3 mL) subcutane ous pen active Not Available Not Available Not Available Tirosint 75 mcg capsule take 1 capsule by oral route every day 04/28 completed Prescrib ed Elsewher e: Yes Loca tion: [facility] odify By: wendy carbone DateTime : 01/27/20 16 01:00:00 PM Not Available Not Available Not Available Bydureon 2 mg subcutane ous extended release suspensio n inject by subcutan eous route every 7 days once 03/23 completed Prescrib ed Elsewher e: Yes Loca tion: [facility] odify By: [email or web address] trick En counter [...] Updated DateTime 03/23/2022 168.91 cm 49.1 kg/m2 489225.0 4 g 136 mm[Hg] 80 mm[Hg] Cecilia Rangel [facility] 14:58:40 Social History Question Answer Notes LastModified by Organizat ion Details LastModified Time Tobacco Smoking Status Never Smoker Cecilia [facility] 03/23/2022 15:03:27 What Is Your Level [...] Anxious, Or Unable To Sleep At Night)? [id number] Information not available 03/23/2022 Do You Use [...] mellitus Medical History Condition Response Diabetes Y High Cholesterol Y Thyroid Problems Y Hypertension Y Gynecological History Statement/Question Response Sexually Active? Y STIs/STDs N Menses Monthly N HPV Vaccine N Date of Last Pap Smear Sexual Problems? N Current Control Method None LMP Unknown Obstetrics History GPAL:G 0 P 0 0 0 0 Past Encounters Encounter ID Performer Location Encounter Start Date Encounter Closed Date Diagnosis/Indication Diagnosis SNOMED-CT Code Diagnosis ICD10 Code Diagnosis Note [id number] [facility] [address] [address] 03/23/2022 14:11:49 03/24/2022 16:35:54 Gynecologic examination 18935794 Z01.419 Take Calcium with Vitamin D 12-1500mg daily. Do monthly self breast exams. It is advised to get annual flu shot in the fall and she could obtain at [facility] or [facility]. If you haven't received the Tdap [...] Labs UTD PCPMammo UTD PCP Inguinal pain [id number] R10.2 Left sided groin pain.Exam difficult due [...] Arias Member ID Guarantor Name 03/23/2022 1 [facility] Keri Stone [id number] Keri Stone 03/23/2022 2 [place] Keri Stone [id number] Keri Stone Notes Date Note Type Note Provider Name and Address Organization Details Recorded Time 03/23/2022 text/html Annual Electrical Inspector Post-MenopausalRe ported bypatient.Menopau olvin Symptoms:no menopausal symptoms; [...] activity. Kim Tovar, ESTELLA- [address], [place], [address], [place] [facility] 03/24/2022 16:16:15 OBGyn Episode No OBEpisode recorded.
--- OUTSIDE RECORDS SUMMARY | 2024-12-26 10:34 | XMS_ITS | Encounter Summary ---
Author Organization [facility] Address [facility] [place] [address] Care Team Providers Care Systems Software Engineer Name Role Phone Alexis Thurman MD Unavailable [phone] Willian Mendoza MD Primary Care Provider [phone] Cee Liu APRN, TRIM AND BURR OPERATOR-C Unavailable Virgilio Meehan DO Primary Care Provider [phone] Mame Osborn MD Unavailable [phone] Encounter Details Date Type Department Care Team (Late st Contact Info) Description 10/12/2018 Abstract [facility] [address] [place] [address] Abstract, Doc Prevea Social History [...] 05/12/2025 1:30 PM CDT [facility] [address] [place] [phone] Cee Liu APRN, TRIM AND BURR OPERATOR-C [address] [facility] [address] [place] [phone] documented as of this encounter Visit Diagnoses Not on filedocumented in this encounter Care Teams Systems Software Engineer Relationship Specialty Start Date End Date Willian Mendoza MD [address] [place] [address] PCP - General INTERNAL MEDICINE 09/14/18 09/07/22 Virgilio Meehan DO [address] [place] [address] PCP - General FAMILY PRACTICE 09/08/22 Alexis Thurman MD [address] [place] [phone] [place] [employer] CARDIOVASCULAR DISEASE 09/14/18 04/01/24 Cee Liu APRN, TRIM AND BURR OPERATOR-C [address] [facility] [address] [place] [phone] NURSE PRACTITIONER 05/27/22 Mame Osborn MD [address], [place] [id number] INTERVENTIONAL CARDIOLOGY 05/10/24 documented as of this encounter
--- OUTSIDE RECORDS SUMMARY | 2024-12-26 10:34 | XMS_ITS ---
Author Organization [facility] Address [address] [place], [place] [id number] Care Team Providers Care Electronics Engineer Name Role Phone MIRIAN MOSHER Unavailable [phone] Virgilio Meehan Unavailable Unavailable WILFREDO BRODERICK Unavailable [phone] REASON FOR VISIT *General care Encounters Encounter Location Date Provider Diagnosis [address] [id number] 12/12/2024 WILFREDO BRODERICK Plan Of Treatment Next Appt Details Provider Name:WILFREDO MARTIN, 01/02/2025 02:10:00 PM, [address] [place] [address], [id number], Progress Notes * MATEUSZ MONROE ADOB:[birth year] (59 yo F)Acc No.[id number]:12/12/2024 Patient: MATEUSZ ZHU Provider: Gavi BRODERICK :1965 A ge:59 Y S ex:Female Date:12/12/2024 Address:[address] [place], [place] [id number] Subjective: * Chief Complaints: * 1 . *General care. * Medical History: Objective: * Vitals: Assessment: Plan: * Treatment: * Billing Information: * Visit Code: * Procedure Codes: * Electronic signature of KINA BRODERICK DPM on 12/26/2024 at 10:34 AM CDT Sign off status: Pending * Provider: Gavi BRODERICK Date: 0 12/12/2024 Generated for Curt small/Ana Maria/Jose on: 0 12/26/2024 10:34 AM FARRAH
--- OUTSIDE RECORDS SUMMARY | 2024-12-26 10:34 | XMS_ITS | Continuity of Care Document ---
Author Organization [facility] Address [address] [facility] [address] [place] [address] Phone Care Team Providers Care Rug Frame Mounter Name Role Phone Nilson Vaughan Unavailable Unavailable [...] Diagnoses Date Provider Providers Copied on Encounter [facility], [address], [place], [place], [address], [place] tel:[phone] [facility] No Information Clement Devine. [address] [place], [address], [place]. tel:[phone] Referring Provider: Nilson Stewart, [address] [place], [address]. tel:[phone] [facility], [address], [place], [place], [address], [place] tel:[phone] [facility] No Information Clement Devine. [address] [place], [address], [place]. tel:[phone] Referring Provider: Nilson Stewart, [address] [place], [address]. tel:[phone] [facility], [address], [place], [place], [address], [place] tel:[phone] [facility] No Information Clement Devine. [address] [place], [address], [place]. tel:[phone] Referring Provider: Nilson Stewart, [address] [place], [address]. tel:[phone] [facility], [address], [place], [place], [address], [place] tel:[phone] [facility] No Information Clement Devine. [address] [place], [address], [place]. [phone] Referring Provider: Nilson Stewart, [address] [place], [address]. tel:[phone] [facility], [address], [place], [place], [address], [place] tel:[phone] [facility] No Information Clement Devine. [address] [place], [address], [place]. tel:[phone] [facility], [address], [place], [place], [address], [place] tel:[phone] [facility] No Information Clement Devine. [address] [place], [address], [place]. tel:[phone] Referring Provider: Nilson Stewart, [address] [place], [address]. tel:[phone] Office/outpat ient Visit, [facility], [address], [place], [place], [address], [place] tel:[phone] [facility] No Information Clement Devine. [address] [place], [address], [place]. tel:[phone] Family History Family Member Type Diagnosis Age At Onset No Information Payers Payer name Insurance type Covered republican ID Authorshiloha tiisaiah(s) Medicaid [facility] [id number] Social History Type Description Quantity Date Captured [...]
--- OUTSIDE RECORDS SUMMARY | 2024-12-26 10:34 | XMS_ITS | Encounter Summary ---
Author Organization [facility] Address [facility] [place] [address] Care Team Providers Care Manager Sterile Name Role Phone Alexis Thurman MD Unavailable [phone] Cee Liu APRN, NP-C Unavailable Virgilio Meehan DO Primary Care Provider Mame Osborn MD Unavailable [phone] Encounter Details Date Type Department Care Team (Late Contact Info) Description 12/21/2022 Abstract [facility] [address] [place] [address] Naheed Arzola MD [address] [place] [address] Social History Tobacco Use Types Packs/Day Years [...] 05/12/2025 1:30 PM CDT Office Visit [facility] el[address] [place] [address] Cee Liu APRN, HEAD OF QUALITY-C [address] [phone] documented as of this encounter Visit Diagnoses Not on filedocumented in this encounter Care Teams Manager Sterile Relationship Specialty Start Date End Date Virgilio Meehan DO [address] [place] [address] PCP - General FAMILY PRACTICE 09/08/22 Alexis Thurman MD [address] [place] [address] [employer] Coordinator CARDIOVASCULAR DISEASE 09/14/18 04/01/24 Cee Liu APRN, HEAD OF QUALITY-C [address] [address] NURSE PRACTITIONER 05/27/22 Mame Osborn MD [address] [place] [address] INTERVENTIONAL CARDIOLOGY 05/10/24 documented as of this encounter
--- OUTSIDE RECORDS SUMMARY | 2024-12-26 10:51 | XMS_ITS | Continuity of Care Document ---
Author Organization [facility] Address [address] [facility] [address] [place] [address] Phone Care Team Providers Care Search Engine Optimization Manager Name Role Phone Nilson Vaughan Unavailable Unavailable [...] Diagnoses Date Provider Providers Copied on Encounter [facility], [address], [place], [place], [address], [place] tel:[phone] [facility] No Information Clement Devine. [address] [place], [address], [place]. tel:[phone] Referring Provider: Nilson Stewart, [address] [place], [address]. [phone] [facility], [address], [place], [place], [address], [place] tel:[phone] [facility] No Information Clement Devine. [address] [place], [address], [place]. tel:[phone] Referring Provider: Nilson Stewart, [address] [place], [address]. tel:[phone] [facility], [address], [place], [place], [address], [place] tel:[phone] [facility] No Information Clement Devine. [address] [place], [address], [place]. tel:[phone] Referring Provider: Nilson Stewart, [address] [place], [address]. tel:[phone] [facility], [address], [place], [place], [address], [place] tel:[phone] [facility] No Information Clement Devine. [address] [place], [address], [place]. [phone] Referring Provider: Nilson Stewart, [address] [place], [address]. tel:[phone] [facility], [address], [place], [place], [address], [place] tel:[phone] [facility] No Information Clement Devine. [address] [place], [address], [place]. tel:[phone] [facility], [address], [place], [place], [address], [place] tel:[phone] [facility] No Information Clement Devine. [address] [place], [address], [place]. tel:[phone] Referring Provider: Nilson Stewart, [address] [place], [address]. tel:[phone] Office/outpat ient Visit, [facility], [address], [place], [place], [address], [place] tel:[phone] [facility] No Information Clement Devine. [address] [place], [address], [place]. tel:[phone] Family History Family Member Type Diagnosis Age At Onset No Information Payers Payer name Insurance type Covered alliance party ID Authorshiloha tiisaiah(s) Medicaid [facility] [id number] Social History Type Description Quantity Date Captured [...]
== END 2024-12-26 10:37 | disposition home or self-care (01) ==
LOC: CHSED 10:42
PROVIDERS: Emergency Provider Emergency Medicine; PCP Family Medicine
DX: K04.7 Periapical abscess without sinus (principal); R51.9 Headache, unspecified; I12.9 Hypertensive chronic kidney disease with stage 1 through stage 4 chronic kidney disease, or unspecified chronic kidney disease; E13.22 Other specified diabetes mellitus with diabetic chronic kidney disease; N18.30 Chronic kidney disease, stage 3 unspecified; E03.9 Hypothyroidism, unspecified
CPT/HCPCS: 99283

== ENCOUNTER 2024-12-26 10:45 | Outpatient (CLI) | payer MEDICARE, MEDICAID, SELFPAY ==
--- OUTSIDE RECORDS SUMMARY | 2024-12-26 10:55 | XMS_ITS | Continuity of Care Document ---
Author Organization [facility] Address [address] [facility] [address] [place] [address] Phone Care Team Providers Care Neon Technician Name Role Phone Nilson Vaughan Unavailable Unavailable [...] Diagnoses Date Provider Providers Copied on Encounter [facility], [address], [place], [place], [address], [place] tel:[phone] [facility] No Information Clement Devine. [address] [place], [address], [place]. tel:[phone] Referring Provider: Nilson Stewart, [address] [place], [address]. [phone] [facility], [address], [place], [place], [address], [place] tel:[phone] [facility] No Information Clement Devine. [address] [place], [address], [place]. tel:[phone] Referring Provider: Nilson Stewart, [address] [place], [address]. tel:[phone] [facility], [address], [place], [place], [address], [place] tel:[phone] [facility] No Information Clement Devine. [address] [place], [address], [place]. tel:[phone] Referring Provider: Nilson Stewart, [address] [place], [address]. tel:[phone] [facility], [address], [place], [place], [address], [place] tel:[phone] [facility] No Information Clement Devine. [address] [place], [address], [place]. [phone] Referring Provider: Nilson Stewart, [address] [place], [address]. tel:[phone] [facility], [address], [place], [place], [address], [place] tel:[phone] [facility] No Information Clement Devine. [address] [place], [address], [place]. tel:[phone] [facility], [address], [place], [place], [address], [place] tel:[phone] [facility] No Information Clement Devine. [address] [place], [address], [place]. tel:[phone] Referring Provider: Nilson Stewart, [address] [place], [address]. tel:[phone] Office/outpat ient Visit, [facility], [address], [place], [place], [address], [place] tel:[phone] [facility] No Information Clement Devine. [address] [place], [address], [place]. tel:[phone] Family History Family Member Type Diagnosis Age At Onset No Information Payers Payer name Insurance type Covered democrat ID Authorshiloha tiisaiah(s) Medicaid [facility] [id number] Social History Type Description Quantity Date Captured [...]
[2024-12-26 15:43] LABS: Magnesium 1.2 mg/dL (1.6-2.3)
== END 2024-12-26 10:46 | disposition home or self-care (01) ==
PROVIDERS: PCP Family Medicine; Visit Provider Family Medicine
DX: E83.42 Hypomagnesemia (principal)
CPT/HCPCS: 36415; 83735

== ENCOUNTER 2024-12-27 20:28 | Emergency (ER) | payer MEDICARE, MEDICAID, SELFPAY ==
--- NOTE | ~2024-12-27 | CT_ITS ---
CTA brain carotid Ordering provider: Elieser May MD History: . headache X 6 DAYS S/P WISDOM TOOTH EXTRACTION. . Comparison: CTA brain carotid Ordering provider: Elieser May MD History: . headache X 6 DAYS S/P WISDOM TOOTH EXTRACTION. . Comparison: None. Technique: CT angiogram head and neck was performed following timed intravenous injection of contrast . Thin slice axial images and reformatted coronal images were obtained. Three dimensional reformatted images of the brain were also obtained using a Epos workstation. Radiation reduction technique ut ilized.The dose-length product was 1253.45 mGy-cm. 100 mL Omnipaque 350 was given IV. FINDINGS: HEAD: --ANTERIOR AND MIDDLE CEREBRAL ARTERIES AND BRANCHES: Normal caliber and contour. --INTERNAL CAROTID ARTERIES: Mild atheromatous disease but no significant stenosis. No occlusion. --BASILAR ARTERY AND BRANCHES: Normal caliber and contour. No atheromatous disease. --POSTERIOR CEREBRAL ARTERIES: Normal caliber and contour --POSTERIOR COMMUNICATING ARTERIES: Not visualized which is probably related to congenital absence or small size. --ANEURYSM: None visualized. --BRAIN: Please refer to report of CT head performed the same day. --BONES AND SUPERFICIAL SOFT TISSUES: Please refer to report of CT head performed the same day. --PARANASAL SINUSES AND MASTOIDS: Right maxillary sinus disease. Defect is seen in the area of the last tooth in the upper mandible. No definite abscess formation see n in the area. NECK: --RIGHT CERVICAL CAROTID SYSTEM: Normal caliber and contour. Percent stenosis per NASCET criteria is 0%. No carotid dissection. Otherwise, no significant atheromatous disease or stenosis of the cervica l carotid system. --LEFT CERVICAL CAROTID SYSTEM: Normal caliber and contour. Percent stenosis per NASCET criteria is 0%. No carotid dissection. Otherwise, no significant atheromatous disease or stenosis of the cervical carotid system. --VERTEBRAL ARTERIES: Normal caliber and contour. --VISUALIZED AORTIC ARCH AND BRANCHING VESSELS: Normal caliber and contour. No significant atheromato us disease. --SOFT TISSUES: Normal. --CERVICAL SPINE: Age appropriate degenerative changes. IMPRESSION: 1. Normal CTA head and neck. Percent stenosis per NASCET criteria is 0%. Technique: CT angiogram head and neck was performed following timed intravenous injection of contrast . Thin slice axial images and reformatted coronal images were obtained. Three dimensional reformatted images of the brain were also obtained using a Epos workstation. FINDINGS: HEAD: --ANTERIOR AND MIDDLE CEREBRAL ARTERIES AND BRANCHES: Normal caliber and contour. --INTERNAL CAROTID ARTERIES: Mild atheromatous disease but no significant stenosis. No occlusion. --BASILAR ARTERY AND BRANCHES: Normal caliber and contour. No atheromatous disease. --POSTERIOR CEREBRAL ARTERIES: Normal caliber and contour --POSTERIOR COMMUNICATING ARTERIES: Not visualized which is probably related to congenital absence or small size. --ANEURYSM: None visualized. --BRAIN: Please refer to report of CT head performed the same day. --BONES AND SUPERFICIAL SOFT TISSUES: Please refer to report of CT head performed the same day. --PARANASAL SINUSES AND MASTOIDS: Please refer to report of CT head done the same day. NECK: --RIGHT CERVICAL CAROTID SYSTEM: Mild atheromatous disease of the carotid bulb and proximal internal carotid artery without significant stenosis. Percent stenosis per NASCET criteria is No carotid diss ection. Otherwise, no significant atheromatous disease or stenosis of the cervical carotid system. --LEFT CERVICAL CAROTID SYSTEM: Mild atheromatous disease of the carotid bulb and proximal internal c arotid artery without significant stenosis. Percent stenosis per NASCET criteria is No carotid disse ction. Otherwise, no significant atheromatous disease or stenosis of the cervical carotid system. --VERTEBRAL ARTERIES: Normal caliber and contour. --VISUALIZED AORTIC ARCH AND BRANCHING VESSELS: Mild atheromatous disease but no significant stenosis . --SOFT TISSUES: Normal. --CERVICAL SPINE: Age appropriate degenerative changes. IMPRESSION: 1. Normal CTA head and neck. Percent stenosis per NASCET criteria is 0%. Reviewed, dictated and finalized at location A. IMPRESSION: 1. Normal CTA head and neck. Percent stenosis per NASCET criteria is 0%. Technique: CT angiogram head and neck was performed following timed intravenous injection of contrast. Thin slice axial images and reformatted coronal images were obtained. Three dimensional reformatted images of the brain were also obta ined using a Epos workstation. FINDINGS: HEAD: --ANTERIOR AND MIDDLE CEREBRAL ARTERIES AND BRANCHES: Normal caliber and contou r. --INTERNAL CAROTID ARTERIES: Mild atheromatous disease but no significant steno sis. No occlusion. --BASILAR ARTERY AND BRANCHES: Normal caliber and contour. No atheromatous dise ase. --POSTERIOR CEREBRAL ARTERIES: Normal caliber and contour --POSTERIOR COMMUNICATING ARTERIES: Not visualized which is probably related to congenital absence or small size. --ANEURYSM: None visualized. --BRAIN: Please refer to report of CT head performed the same day. --BONES AND SUPERFICIAL SOFT TISSUES: Please refer to report of CT head perform ed the same day. --PARANASAL SINUSES AND MASTOIDS: Please refer to report of CT head done the . NECK: --RIGHT CERVICAL CAROTID SYSTEM: Mild atheromatous disease of the carotid bulb and proximal internal carotid artery without significant stenosis. Percent sten osis per NASCET criteria is No carotid dissection. Otherwise, no significant a theromatous disease or stenosis of the cervical carotid system. --LEFT CERVICAL CAROTID SYSTEM: Mild atheromatous disease of the carotid bulb a nd proximal internal carotid artery without significant stenosis. Percent steno sis per NASCET criteria is No carotid dissection. Otherwise, no significant atheromatous disease or stenosis of the cervical whitaker tid system. --VERTEBRAL ARTERIES: Normal caliber and contour. --VISUALIZED AORTIC ARCH AND BRANCHING VESSELS: Mild atheromatous disease but n o significant stenosis. --SOFT TISSUES: Normal. --CERVICAL SPINE: Age appropriate degenerative changes.
--- NOTE | ~2024-12-27 | CT_ITS ---
CT brain wo con Ordering provider: Elieser May MD History: 59 years Female with . headache X 6 DAYS THAT BEGAN AFTER WISDOM TOOTH EXTRACTION. . Comparison: June 02, 2024 Technique: CT of the head without contrast. Radiation reduction technique utilized.The dose-length pr oduct was 605.33 mGy-cm. FINDINGS: BRAIN PARENCHYMA AND CSF SPACES: Mild brain atrophy with deep white matter ischemic changes. No midli ne shift, mass effect or hemorrhage. The brain parenchyma and CSF spaces are otherwise normal. VISUALIZED PARANASAL SINUSES: Well aerated. MASTOIDS: Well aerated. BONES: The bones appear intact. SOFT TISSUES: Visualized nasopharynx is normal. Superficial soft tissues are normal. IMPRESSION: No acute intracranial findings. Reviewed, dictated and finalized at location A.
[2024-12-27 20:31] VITALS: BP 141/84; PULSE 88; RESP 18; TEMP 36.4; O2SAT 100
--- OUTSIDE RECORDS SUMMARY | 2024-12-27 20:31 | XMS_ITS | Encounter Summary ---
Author Organization [facility] Address [facility] [place] [address] Care Team Providers Care Elect Equip Maint Eng Name Role Phone Alexis Thurman MD Unavailable [phone] Willian Mendoza MD Primary Care Provider [phone] Cee Liu APRN, COMMERCIAL LINES INSURANCE AGENT-C Unavailable Virgilio Meehan DO Primary Care Provider [phone] Mame Osborn MD Unavailable [phone] Encounter Details Date Type Department Care Team (Late st Contact Info) Description 06/24/2022 Hospital Orders Only [facility] [address] [place] [address] Alexis Thurman MD [address] [place] [address] Social History Tobacco Use Types [...] Description 05/12/2025 1:30 PM CDT Office Visit [facility] el [address] [place] [address] Cee Liu APRN, COMMERCIAL LINES INSURANCE AGENT-C [address] [facility] [address] [phone] documented as of this encounter Visit Diagnoses Not on filedocumented in this encounter Care Teams Elect Equip Maint Eng Relationship Specialty Start Date End Date Willian Mendoza MD [address] [place] [address] PCP - General INTERNAL MEDICINE 09/14/18 09/07/22 Virgilio Meehan DO [address] [place] [address] PCP - General FAMILY PRACTICE 09/08/22 Alexis Thurman MD [address] [place] [address] [facility] Technician CARDIOVASCULAR DISEASE 09/14/18 04/01/24 Cee Liu APRN, COMMERCIAL LINES INSURANCE AGENT-C [address] [phone] NURSE PRACTITIONER 05/27/22 Mame Osborn MD [address] [place], [place] [address] INTERVENTIONAL CARDIOLOGY 05/10/24 documented as of this encounter
--- OUTSIDE RECORDS SUMMARY | 2024-12-27 20:31 | XMS_ITS ---
Author Organization [facility] Address [address] [place], [place] [address] Care Team Providers Care Coffee Supervisor Name Role Phone MIRIAN MOSHER Unavailable [phone] Virgilio Meehan Unavailable Unavailable REASON FOR VISIT [...] Medicationnortriptyline 50 MG Oral Capsule *Reorder from [employer] for eRx and Interaction Alerts* 04/07/20 14 Active esomeprazole 20 MG Injection INTRAVENOUS esomeprazole 20 MG InjectionOriginal Medicationesomeprazole 20 MG Injection *Reorder from [employer] for eRx and Interaction Alerts* 04/07/20 14 Active levothyroxine sodium 0.1 MG Oral Capsule ORAL levothyroxine sodium 0.1 MG Oral CapsuleOriginal Medicationlevothyroxine sodium 0.1 MG Oral Capsule *Reorder from [employer] for eRx and Interaction Alerts* 04/07/20 14 Active propranolol hydrochloride 40 MG Oral Tablet ORAL propranolol hydrochloride 40 MG Oral TabletOriginal Medicationpropranolol hydrochloride 40 MG Oral Tablet *[facility]Rx and Interaction Alerts* 04/07/20 14 Active verapamil hydrochloride 40 MG Oral Tablet ORAL verapamil hydrochloride 40 M G Oral TabletOriginal Medicationverapamil hydrochloride 40 MG Oral Tablet *[facility] eRx and Interaction Alerts* 04/07/20 14 Active ciclopirox 80 MG/ML Topical Solution CUTANEOUS ciclopirox 80 MG/ML Topical SolutionOriginal Medicationciclopirox 80 MG/ML Topical Solution *Reorder from [employer] for eRx and Interaction Alerts* 04/20/20 12 Active cinnamon bark 500 MG Oral Capsule ORAL cinnamon bark 500 MG Oral CapsuleOriginal Medicationcinnamon bark 500 MG Oral Capsule *Reorder from [facility] for eRx and Interaction Alerts* 04/07/20 14 Active 3 ML insulin glargine 100 UNT/ML Pen Injector [Lantus] 3 ML insulin glargine 100 UNT/ML Pen Injector [Lantus]Original Medication3 ML insulin glargine 100 UNT/ML Pen Injector [Lantus] *Reorder from [facility] for eRx and Interaction Alerts* 04/07/20 14 Active cholecalciferol 0.025 MG Oral Capsule ORAL cholecalciferol 0.025 MG Ora l CapsuleOriginal Medicationcholecalciferol 0.025 MG Oral Capsule *Reorder from [facility] for eRx and Interaction Alerts* 04/07/20 14 Active Losartan Potassium 100 MG Oral Tablet ORAL losartan potassium 100 MG Oral TabletOriginal Medicationlosartan potassium 100 MG Oral Tablet *Reorder from [facility] for eRx and Interaction Alerts* 04/07/20 14 Active Allopurinol 300 MG Oral Tablet ORAL allopurinol 300 MG Oral TabletOriginal Medicationallopurinol 300 MG Oral Tablet *Reorder from [facility] for eRx and Interaction Alerts* 04/07/20 14 Active Pravastatin Sodium 10 MG Oral Tablet ORAL pravastatin sodium 10 MG Ora l TabletOriginal Medicationpravastatin sodium 10 MG Oral Tablet *Reorder from [facility] for eRx and Interaction Alerts* 04/07/20 14 Active Spironolactone 25 MG Oral Tablet ORAL spironolactone 25 MG Oral TabletOriginal Medicationspironolactone 25 MG Oral Tablet *Reorder from [facility] for eRx and Interaction Alerts* 04/07/20 14 Active Nabumetone 500 MG Oral Tablet ORAL nabumetone 500 MG Oral TabletOriginal Medicationnabumetone 500 MG Oral Tablet *Reorder from [facility] for eRx and Interaction Alerts* 06/29/20 12 Active Encounters Encounter Location Date Provider Diagnosis [facility] [address] [place], [place] [address] 10/10/2024 MIRIAN MOSHER Tinea unguium B35.1 ; Acquired 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 ; Atherosclerosis of [place] arteries of extremities with intermittent claudication, [...] utilizing a #15 blade 10/10/2024 Atherosclerosis of [place] arteries of extremities with intermittent claudication, [...] develop. Provider Name:WILFREDO MARTIN, 01/02/2025 02:10:00 PM, [address] [place] [address], [id number], Progress Notes * MATEUSZ MONROE ADOB:[birth year] (59 yo F)Acc No.[id number]:10/10/2024 Patient: MATEUSZ ZHU Provider: Roosevelt Mosher DPM :1965 A ge:58 Y S ex:Female Date:10/10/2024 Address:[address] [place] [address] Subjective: * Chief Complaints: * Jerrica chung [...] Medicationallopurinol 300 MG Oral Tablet *Reorder from [employer] for eRx and Interaction Alerts*Spironolactone 25 MG Oral Tablet ORAL , Notes to Pharmacist: spironolactone 25 MG Oral TabletOriginal Medicationspironolactone 25 MG Oral Tablet *Reorder from [employer] for eRx and Interaction Alerts*Nabumetone 500 MG Oral Tablet ORAL , Notes to Pharmacist: nabumetone 500 MG Oral TabletOriginal Medicationnabumetone 500 MG Oral Tablet *[facility] and Interaction Alerts*Pravastatin Sodium 10 MG Oral Tablet ORAL , Notes to Pharmacist: pravastatin sodium 10 MG Oral TabletOriginal Medicationpravastatin sodium 10 MG Oral Tablet *Reorder from [facility] for eRx and Interaction Alerts*Losartan Potassium 100 MG Oral Tablet ORAL , Notes to Pharmacist: losartan potassium 100 MG Oral TabletOriginal Medicationlosartan potassium 100 MG Oral Tablet *Reorder from [facility] for eRx and Interaction Alerts*3 ML insulin glargine 100 UNT/ML Pen Injector [Lantus] , Notes to Pharmacist: 3 ML insulin glargine 100 UNT/ML Pen Injector [Lantus]Original Medication3 ML insulin glargine 100 UNT/ML Pen Injector [Lantus] *Reorder from [facility] for eRx and Interaction Alerts*cholecalciferol 0.025 MG Oral Capsule ORAL , Notes to Pharmacist: cholecalciferol 0.025 MG Oral CapsuleOriginal Medicationcholecalciferol 0.025 MG Oral Capsule *Reorder from [facility] for eRx and Interaction Alerts*ciclopirox 80 MG/ML Topical Solution CUTANEOUS , Notes to Pharmacist: ciclopirox 80 MG/ML Topical SolutionOriginal Medicationciclopirox 80 MG/ML Topical Solution *Reorder from [facility] for eRx and Interaction Alerts*cinnamon bark 500 MG Oral Capsule ORAL , Notes to Pharmacist: cinnamon bark 500 MG Oral CapsuleOriginal Medicationcinnamon bark 500 MG Oral Capsule *Reorder from [facility] for eRx and Interaction Alerts*esomeprazole 20 MG Injection INTRAVENOUS , Notes to Pharmacist: esomeprazole 20 MG InjectionOriginal Medicationesomeprazole 20 MG Injection *Reorder from [facility] for eRx and Interaction Alerts*levothyroxine sodium 0.1 MG Oral Capsule ORAL , Notes to Pharmacist: levothyroxine sodium 0.1 MG Oral CapsuleOriginal Medicationlevothyroxine sodium 0.1 MG Oral Capsule *Reorder from [facility] for eRx and Interaction Alerts*nortriptyline 50 MG Oral Capsule ORAL , Notes to Pharmacist: nortriptyline 50 MG Oral CapsuleOriginal Medicationnortriptyline 50 MG Oral Capsule *Reorder from [facility] for eRx and Interaction Alerts*propranolol hydrochloride 40 MG Oral Tablet ORAL , Notes to Pharmacist: propranolol hydrochloride 40 MG Oral TabletOriginal Medicationpropranolol hydrochloride 40 MG Oral Tablet *Reorder from [facility] for eRx and Interaction Alerts*verapamil hydrochloride 40 MG Oral Tablet ORAL , Notes to Pharmacist: verapamil hydrochloride 40 MG Oral TabletOriginal Medicationverapamil hydrochloride 40 MG Oral Tablet *Reorder from [facility] for eRx and Interaction Alerts*Medication List reviewed and reconciled with the patientTaking Allopurinol 300 MG Oral Tablet ORAL , Notes to Pharmacist: allopurinol 300 MG Oral TabletOriginal Medicationallopurinol 300 MG Oral Tablet *Reorder from [facility] for eRx and Interaction Alerts*Taking Spironolactone 25 MG Oral Tablet ORAL , Notes to Pharmacist: spironolactone 25 MG Oral TabletOriginal Medicationspironolactone 25 MG Oral Tablet *Reorder from [facility] for eRx and Interaction Alerts*Taking Nabumetone 500 MG Oral Tablet ORAL , Notes to Pharmacist: nabumetone 500 MG Oral TabletOriginal Medicationnabumetone 500 MG Oral Tablet *Reorder from [facility] for eRx and Interaction Alerts*Taking Pravastatin Sodium 10 MG Oral Tablet ORAL , Notes to Pharmacist: pravastatin sodium 10 MG Oral TabletOriginal Medicationpravastatin sodium 10 MG Oral Tablet *Reorder from [facility] for eRx and Interaction Alerts*Taking Losartan Potassium 100 MG Oral Tablet ORAL , Notes to Pharmacist: losartan potassium 100 MG Oral TabletOriginal Medicationlosartan potassium 100 MG Oral Tablet *Reorder from [facility] for eRx and Interaction Alerts*Taking 3 ML insulin glargine 100 UNT/ML Pen Injector [Lantus] , Notes to Pharmacist: 3 ML insulin glargine 100 UNT/ML Pen Injector [Lantus]Original Medication3 ML insulin glargine 100 UNT/ML Pen Injector [Lantus] *Reorder from [facility] for eRx and Interaction Alerts*Taking cholecalciferol 0.025 MG Oral Capsule ORAL , Notes to Pharmacist: cholecalciferol 0.025 MG Oral CapsuleOriginal Medicationcholecalciferol 0.025 MG Oral Capsule *Reorder from [facility] for eRx and Interaction Alerts*Taking ciclopirox 80 MG/ML Topical Solution CUTANEOUS , Notes to Pharmacist: ciclopirox 80 MG/ML Topical SolutionOriginal Medicationciclopirox 80 MG/ML Topical Solution *Reorder from [facility] for eRx and Interaction Alerts*Taking cinnamon bark 500 MG Oral Capsule ORAL , Notes to Pharmacist: cinnamon bark 500 MG Oral CapsuleOriginal Medicationcinnamon bark 500 MG Oral Capsule *Reorder from [facility] for eRx and Interaction Alerts*Taking esomeprazole 20 MG Injection INTRAVENOUS , Notes to Pharmacist: esomeprazole 20 MG InjectionOriginal Medicationesomeprazole 20 MG Injection *Reorder from [facility] for eRx and Interaction Alerts*Taking levothyroxine sodium 0.1 MG Oral Capsule ORAL , Notes to Pharmacist: levothyroxine sodium 0.1 MG Oral CapsuleOriginal Medicationlevothyroxine sodium 0.1 MG Oral Capsule *Reorder from [facility] for eRx and Interaction Alerts*Taking nortriptyline 50 MG Oral Capsule ORAL , Notes to Pharmacist: nortriptyline 50 MG Oral CapsuleOriginal Medicationnortriptyline 50 MG Oral Capsule *Reorder from [facility] for eRx and Interaction Alerts*Taking propranolol hydrochloride 40 MG Oral Tablet ORAL , Notes to Pharmacist: propranolol hydrochloride 40 MG Oral TabletOriginal Medicationpropranolol hydrochloride 40 MG Oral Tablet *Reorder from [facility] for eRx and Interaction Alerts*Taking verapamil hydrochloride 40 MG Oral Tablet ORAL , Notes to Pharmacist: verapamil hydrochloride 40 MG Oral TabletOriginal Medicationverapamil hydrochloride 40 MG Oral Tablet *Reorder from [facility] for eRx and Interaction Alerts*Medication List [...] - L85.1 3 . A therosclerosis of [place] arteries of extremities with intermittent claudication, [...] develop.) * Billing Information: * Visit Code: 49621 Office Visit, Est Pt., Level 3. * Procedure Codes: * Sign off status: Completed true * Provider: Roosevelt Mosher DPM Date: 0 10/10/2024 Generated for Curt Reilly/Jose on: 0 12/27/2024 08:31 PM CDT History and Physical Notes * [...]
--- OUTSIDE RECORDS SUMMARY | 2024-12-27 20:31 | XMS_ITS ---
Author Organization [facility] Address [address] [facility] [address] [place], [place] [id number] Care Team Providers Care Rubber Flap Tuber Machine Operator Name Role Phone MIRIAN MOSHER [phone] Virgilio Meehan Unavailable Unavailable REASON FOR VISIT DIABETIC SHOES AND INSERTS Encounters Encounter Location Date Provider Diagnosis [facility] [address] [facility] [address] [place], [place] [id number] 12/09/2024 MIRIAN MOSHER Plan Of Treatment Next Appt Details Provider Name:WILFREDO MARTIN, 01/02/2025 02:10:00 PM, [address] [place] [address], [id number], Progress Notes * MATEUSZ MONROE ADOB:[birth year] (59 yo F)Acc No.[id number]:12/09/2024 Patient: Zay AGATHA MATEUSZ Gutierrez :1965 A ge:59 Y S ex:Female Address:[address] [place] [address], [address] * true * Date: Generated for Printi ng/Faxing/eTransmitting on: 0 12/27/2024 08:31 PM CDT
--- OUTSIDE RECORDS SUMMARY | 2024-12-27 20:31 | XMS_ITS | Encounter Summary ---
Author Organization [facility] Address [facility] [place] [address] Care Team Providers Care Psych Np Name Role Phone Cee Liu APRN, WOOD GRINDER OPERATOR-C Unavailable Virgilio Meehan DO Primary Care Provider [phone] Mame Osborn MD Unavailable [phone] Encounter Details Date Type Department Care Team (Late Contact Info) Description 11/12/2024 Abstract [facility] [address] [place] [address] Ella Witt MD [address] [place] [address] Social History Tobacco Use Types Packs/Day Years [...] Description 05/12/2025 1:30 PM CDT Office Visit [facility] eld [address] [place] [address] Cee Liu APRN, WOOD GRINDER OPERATOR-C [address] [facility] [address] [place] [phone] documented as of this encounter Visit Diagnoses Not on filedocumented in this encounter Care Teams Psych Np Relationship Specialty Start Date End Date Virgilio Meehan DO [address] [place] [address] PCP - General FAMILY PRACTICE 09/08/22 Cee Liu, ELECTRONIC DRAFTER, WOOD GRINDER OPERATOR-C [address] [facility] [address] [place] [address] NURSE PRACTITIONER 05/27/22 Mame Osborn MD [address] [place] [address] INTERVENTIONAL CARDIOLOGY 05/10/24 documented as of this encounter
--- OUTSIDE RECORDS SUMMARY | 2024-12-27 20:31 | XMS_ITS | Encounter Summary ---
Author Organization [facility] Address [facility] [place] [address] Care Team Providers Care Shuttle Car Operator Name Role Phone Alexis Thurman MD Unavailable [phone] Cee Liu APRN, NP-C Unavailable Virgilio Meehan DO Primary Care Provider [phone] Mame Osborn MD Unavailable [phone] Encounter Details Date Type Department Care Team (Late Contact Info) Description 12/21/2022 Abstract [facility] [address] [place] [address] Naheed Arzola MD [address] [place] [address] Social History Tobacco Use Types Packs/Day Years [...] 05/12/2025 1:30 PM CDT Office Visit [facility] eld [address] [place] [address] Cee Liu APRN, RADIO ANTENNA INSTALLER-C [address] [phone] documented as of this encounter Visit Diagnoses Not on filedocumented in this encounter Care Teams Shuttle Car Operator Relationship Specialty Start Date End Date Virgilio Meehan DO [address] [place] [address] PCP - General FAMILY PRACTICE 09/08/22 Alexis Thurman MD [address] [place] [address] [employer] Paper Tube Cutter CARDIOVASCULAR DISEASE 09/14/18 04/01/24 Cee Liu APRN, RADIO ANTENNA INSTALLER-C [address] [address] NURSE PRACTITIONER 05/27/22 Mame Osborn MD [address] [place] [address] INTERVENTIONAL CARDIOLOGY 05/10/24 documented as of this encounter
--- OUTSIDE RECORDS SUMMARY | 2024-12-27 20:31 | XMS_ITS | Data Portability ---
Author Organization [facility] Address [address] [place] [address] Care Team Providers Care Steel Cutter Name Role Phone ELKE JACOBO Primary Care Provider [phone] Assessment Encounter Date Assessment Date Assessment LastModified [...] scula r No observ ation record ed. [facility]) [address] [place], [address], 04/10/2022 00:58:08 Result Notes None recorded. Problems Name Problem SNOMED Code Status Onset Date Resolution Date Notes Provider Name and Address Organization Details Recorded Time SNOMED CT Concept Completed 201503/22/2022 Encntr for general adult medical exam w/o abnormal findings; Recorded Elsewhere : No Locati on: [facility] So urce: EHR Chron ic: N Practic e ID: 0001 Bill able Time: 03:30:00 PM Cecilia Rangel [facility] 2 16:06:09 Menopaus e present [id number] Completed 201503/22/2022 Menopausa l and female climacter ic states;Re corded Elsewhere : No Locati on: [facility] So urce: EHR Chron ic: N Practic e ID: 0001 Bill able Time: 01:00:00 PM Cecilia Rangel [facility] 2 16:06:09 Screenin g for malignan t neoplasm of rectum Completed 201503/22/2022 Encounter for screening for malignant neoplasm of rectum;Re corded Elsewhere : No Locati on: [facility] So urce: EHR Chron ic: N Practic e ID: 0001 Bill able Time: 03:30:00 PM Cecilia [facility] 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 2 16:06:09 Screenin g for malignan t neoplasm of cervix Completed 201503/22/2022 Encounter for screening for malignant neoplasm of cervix;Re corded Elsewhere : No Locati on: [facility] So urce: EHR Chron ic: N Practic e ID: 0001 Bill able Time: 03:30:00 PM Cecilia [facility] 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 16:06:09 Problem Notes None recorded. Procedures Surgical History Date Name Laterality Status Provider Name and Address Organization Details Recorded Time 08/21/19 19 laparoscopic sleeve gastrectomy completed [facility] 03/23/2022 15:05:08 08/21/19 17 operation on mandible completed [facility] 03/23/2022 15:04:14 insertion of ureteral stent with ureterotomy completed [facility] 03/23/2022 15:03:53 Unlisted px femur/knee completed [facility] 03/23/2022 15:04:37 perinasal sinusotomy completed [facility] 03/23/2022 15:04:43 Carpal tunnel surgery completed [facility] 03/23/2022 15:04:53 Imaging Results Imaging Date Name Status LastModified by Organiz ation Details LastModified Time 03/31/2022 US, lower extremity, nonvascular completed [address], [address], 04/10/2022 00:58:08 Procedure Notes None recorded. Medical [...] Elsewher e: No Locat ion: [facility] Is[facility]ro odify By: hiral carbone DateTime : 04/05/20 16 12:01:40 PM Not Available Not Available Not Available Neurontin 300 mg capsule take 1 capsule by oral route 3 times every day 04/28 completed Prescrib ed Elsewher e: No Locat ion: [facility] odify By: wendy carbone DateTime : 03/08/20 16 09:00:54 AM Not Available Not Available Not Available verapamil 40 mg tablet take 1 tablet by oral route 3 times every day 03/23 completed Prescrib ed Elsewher e: Yes Loca tion: [facility] odify By: [email or web address] trick En counter [...] Elsewher e: Yes Loca tion: [facility] odify By: [email or web address] trick En counter DateTime : 01/27/20 16 01:00:00 PM Not Available Not Available Not Available propranol ol 60 mg tablet take 1 tablet by oral route 2 times every day 03/23 completed Prescrib ed Elsewher e: Yes Loca [facility]ion: [facility] odify By: [email or web address] trick En counter DateTime : 01/27/20 16 01:00:00 PM Not Available Not Available Not Available allopurin ol 100 mg tablet take 1 tablet by oral route 3 times every day active Not Available Not Available No t Available spironola ctone 25 mg tablet take 1 tablet by oral route every day 03/23 completed Prescrib ed Elsewher e: Yes Loca tion: [facility] odify By: [email or web address] trick En counter DateTime : 01/27/20 16 01:00:00 PM Not Available Not Available Not Available glimepiri de 1 mg tablet take 1 tablet by oral route every day 03/23 completed Prescrib ed Elsewher e: Yes Loca tion: [facility] odify By: wendy guevarauntean DateTime : 04/28/20 16 03:30:00 PM Not Available Not Available Not Available levothyro xine 100 mcg tablet active Not Available Not Available Not Available ropinirol e 0.25 mg tablet take 1 tablet by oral route every day q 4-6hrs prn 03/23 completed Prescrib ed Elsewher e: Yes Loca tion: [facility] odify By: wendy guevaraunter DateTime : 04/28/20 16 03:30:00 PM Not Available Not Available Not Available Humalog U-100 Insulin 100 unit/mL subcutane ous solution inject by subcutan eous route per prescrib er's instruct ions. Insulin dosing requires individu alizazacheryo n. 03/23 completed Prescrib ed Elsewher e: Yes Loca tion: [facility] odify By: wendy guevarauntean DateTime : [...] Elsewher e: No Locat ion: [facility] odify By: wendy guevarauntean DateTime : 01/27/20 16 01:00:00 PM Not Available Not Available Not Available ranitidin e 300 mg capsule take 1 capsule by oral route every day at bedtime 03/23 completed Prescrib ed Elsewher e: Yes Loca tion: [facility] odify By: [email or web address] trick En counter DateTime : 01/27/20 16 01:00:00 PM Not Available Not Available Not Available pravastat in 20 mg tablet take 2 tablet by oral route every day active Not Available Not Available No t Available Estrace 0.5 mg tablet take 1 tablet by oral route every day 06/01 completed Prescrib ed Elsewher e: No Locat ion: [facility] odify By: amkuhdot Martin ncounter DateTime : 03/31/20 16 04:45:00 PM Not Available Not Available Not Available cefdinir 300 mg capsule 03/23 completed Not Available Not Available Not Available losartan 100 mg tablet take 1 tablet by oral route every day 03/23 completed Prescrib ed Elsewher e: Yes Loca tion: [facility] odify By: [email or web address] trick En counter DateTime : 01/27/20 16 01:00:00 PM Not Available Not Available Not Available fluticaso ne propionat e 50 mcg/actua tion nasal spray,karen pension active Not Available Not Available Not Available nortripty line 50 mg capsule take 1 capsule by oral route 2 times every day 2015 active Prescrib ed Elsewher e: Yes Loca tion: [facility] odify By: [email or web address] trick En counter DateTime : 01/27/20 16 01:00:00 PM Not Available Not Available Not Available Estrace 1 mg tablet take 1 tablet by oral route every day 2015 active Prescrib ed Elsewher e: No Locat ion: [facility] odify By: tgingric h Becki ter DateTime : 04/28/20 16 03:30:00 PM Not Available Not Available Not Available progester one micronize d 100 mg capsule take 1 capsule by oral route every day for 10 days in the evening 05/07 completed Prescrib ed Elsewher e: Yes Loca tion: [facility] odify By: [email or web address] Martin ncounter DateTime : 04/28/20 16 03:30:00 PM Not Available Not Available Not Available amoxicill in 875 mg-potass ium clavulana te 125 mg tablet 03/23 completed Not Available Not Available Not Available iron 18 mg tablet 2015 active Prescrib ed Elsewher e: Yes Loca tion: [facility] odify By: [email or web address] trick En counter DateTime : 01/27/20 16 01:00:00 PM Not Available Not Available Not Available magnesium 200 mg tablet 2015 active Prescrib ed Elsewher e: Yes Loca tion: [facility] odify By: [email or web address] trick En counter DateTime : 01/27/20 16 01:00:00 PM Not Available Not Available Not Available Vitamin D3 25 mcg (1,000 unit) tablet take 1 by Oral route once for 2 months then draw labs 2015 active Prescrib ed Elsewher e: Yes Loca tion: [facility] odify By: [email or web address] trick En counter DateTime : 01/27/20 16 01:00:00 PM Not Available Not Available Not Available nitrofura ntoin monohydra te/macroc rystals 100 mg capsule active Not Available Not Available Not Available duloxetin e 20 mg capsule,d elayed release active Not Available Not Available Not Available Cinnamon 500 mg capsule 2015 active Prescrib ed Elsewher e: Yes Loca tion: [facility] odify By: [email or web address] trick En counter DateTime : 01/27/20 16 01:00:00 PM Not Available Not Available Not Available Lantus Solostar U-100 Insulin 100 unit/mL (3 mL) subcutane ous pen active Not Available Not Available Not Available Tirosint 75 mcg capsule take 1 capsule by oral route every day 04/28 completed Prescrib ed Elsewher e: Yes Loca tion: [facility] odify By: wendy carbone DateTime : 01/27/20 16 01:00:00 PM Not Available Not Available Not Available Bydureon 2 mg subcutane ous extended release suspensio n inject by subcutan eous route every 7 days once 03/23 completed Prescrib ed Elsewher e: Yes Loca tion: [facility] odify By: [email or web address] trick En counter [...] Updated DateTime 03/23/2022 168.91 cm 49.1 kg/m2 500245.0 4 g 136 mm[Hg] 80 mm[Hg] Cecilia Rangel [facility] 14:58:40 Social History Question Answer Notes LastModified by Organizat ion Details LastModified Time Tobacco Smoking Status Never Smoker Cecilia [facility] 03/23/2022 15:03:27 What Is Your Level [...] Anxious, Or Unable To Sleep At Night)? [id number] Information not available 03/23/2022 Do You Use [...] SNOMED-CT Code Diagnosis ICD10 Code Diagnosis Note [id number] Kim Tovar , [facility] [address] [address] 03/23/2022 14:11:49 03/24/2022 16:35:54 Gynecologic examination 99744100 Z01.419 Take Calcium with Vitamin D 12-1500mg daily. Do monthly self breast exams. It is advised to get annual flu shot in the fall and she could obtain at [facility] or [facility]. 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 Kim Tovar, ESTELLA- [address], [place], [address], [place] [facility] 03/24/2022 16:16:15 OBGyn Episode No OBEpisode recorded.
--- OUTSIDE RECORDS SUMMARY | 2024-12-27 20:31 | XMS_ITS | Clinical Summary ---
Author Organization [facility] Address [address] [place] [phone] Care Team Providers Care Printing Table Hand Name Role Phone Willian Mendoza MD Primary Care Provider [phone] Allergies Active Allergy Reactions Criticality Noted Date [...] mouth 2 (two) times a day Active ekyobuamfzvj-Ko-p marva-minerals tablet Take 1 tablet by mouth [...] hyperglycemia, with long-term current use of insulin ([facility]) USE FOR TESTING FOUR TIMES A DAY DIRECTED 400 each 3 022 Active pen needle, diabetic (TRUEplus Pen Needle) 31 gauge x 3/16 needle Use to inject insulin up to 5 times daily 450 each 2 022 Active alcohol swabs (BD Alcohol Swabs) pads, medicatedIndicati ons:Type 2 diabetes mellitus with hyperglycemia, with long-term current use of insulin ([facility]) USE DIRECTED 4 TIMES DAILY [...] 1 tablet (100 mcg total) by mouth scanner supervisor before breakfast 90 tablet 3 024 Active [...] 03/17/2022 Assessment & Plan (08/07/2024 5:51 PM INSTANTIZER OPERATOR): Chronic, stable. Continue levothyroxine Update TFTs Assessment & Plan (08/10/2023 3:53 PM INSTANTIZER OPERATOR): Chronic, well-controlled Importance of taking levothyroxine on [...] 04/17/2018 Assessment & Plan (08/07/2024 5:51 PM INSTANTIZER OPERATOR): Chronic, stable Update lipid profile Continue statin therapy Assessment & Plan (08/10/2023 3:53 PM INSTANTIZER OPERATOR): Chronic, well-controlled Continue statin therapy with Pravachol Assessment & Plan (01/17/2023 1:59 PM CDT): Chronic, well controlled Low fat Low cholesterol diet Exercise Continue statin therapy with Pravachol Assessment & Plan (03/17/2022 9:47 AM CDT): Chronic problem. On statin therapy, no changes. Assessment & Plan (10/28/2021 1:21 PM INSTANTIZER OPERATOR): Chronic problem. On statin therapy, no changes. [...] Pravachol Assessment & Plan (09/27/2019 9:29 AM INSTANTIZER OPERATOR): LDL at goal. Trigs elevated. Continue statin [...] therapy Assessment & Plan (08/07/2018 1:59 PM INSTANTIZER OPERATOR): At goal on current medications. Assessment & [...] dicussed Assessment & Plan (09/27/2019 9:29 AM INSTANTIZER OPERATOR): Continues to do well with wt loss [...] adjusted. Assessment & Plan (08/07/2018 1:59 PM INSTANTIZER OPERATOR): Continues to gain weight. Little attempt at diet and exercise. Reviewed importance of avoiding juice, soda, high fat, high carb foods. Assessment & Plan (10/05/2017 2:49 PM INSTANTIZER OPERATOR): Diet and exercise were discussed. 1200 Calorie diet advised 45-60 min aerobic / resistance exercise most days of the week recommended. Bariatric surgery medically indicated Assessment & Plan (07/20/2017 4:17 PM INSTANTIZER OPERATOR): Importance of following diet and exercising discussed. [...] changes. Assessment & Plan (10/28/2021 1:21 PM INSTANTIZER OPERATOR): Controlled on current medications, no changes. Assessment [...] microalbumin Assessment & Plan (09/27/2019 9:29 AM INSTANTIZER OPERATOR): Controlled on current medications. Continue plan. Assessment & Plan (06/06/2019 2:49 PM CDT): Controlled on current medications. Continue plan. Assessment & Plan (11/01/2018 2:04 PM CDT): Goal blood pressure is less than 140/85 Low salt diet recommended Daily aerobic exercise Continue current meds, including ALYCE-I or ARB Assessment & Plan (08/07/2018 2:00 PM INSTANTIZER OPERATOR): Controlled on current medications. Assessment & Plan (04/17/2018 2:07 PM CDT): Goal blood pressure is less than 140/85 Low salt diet recommended Daily aerobic exercise Continue current meds, including ALYCE-I or ARB Assessment & Plan (10/05/2017 2:50 PM INSTANTIZER OPERATOR): Goal blood pressure is less than 140/85 Low salt diet recommended Daily aerobic exercise Continue current meds, including ALYCE-I or ARB Assessment & Plan (07/20/2017 4:18 PM INSTANTIZER OPERATOR): Controlled on current medications. Assessment & Plan (04/06/2017 4:28 PM CDT): At goal on current medications. Hyperlipidemia 09/19/2012 Overview (11/24/2016): HYPERLIPIDEMIA NEC/NOS Assessment & Plan (06/06/2019 2:49 PM CDT): Lipid panel ordered Assessment & Plan (07/20/2017 4:18 PM INSTANTIZER OPERATOR): Will check lipid panel Assessment & Plan (04/06/2017 4:28 PM CDT): Check labs and focus on low fat foods Furuncle of trunk 06/28/2012 Overview (11/23/2016): Carbuncle and furuncle of trunk Type 2 diabetes mellitus 06/28/2012 Overview (11/24/2016): DMII WO CMP UNCNTRLD Assessment & Plan (08/07/2024 5:50 PM INSTANTIZER OPERATOR): Chronic, stable Diet and exercise were emphasized Continue Farxiga and Ozempic Assessment & Plan (02/13/2024 4:29 PM CDT): Chronic, well-controlled. Continue Ozempic 2 mg weekly Farxiga 10 mg Importance of diet and exercise was discussed Assessment & Plan (08/10/2023 3:52 PM INSTANTIZER OPERATOR): Chronic, well-controlled, with some postprandial hyperglycemia Continue [...] Farxita Assessment & Plan (07/19/2022 1:34 PM INSTANTIZER OPERATOR): Hba1c was Lab Results Component Value Date [...] today. Assessment & Plan (10/28/2021 1:43 PM INSTANTIZER OPERATOR): Chronic problem, not at goal. Increase NL [...] breakfast Assessment & Plan (09/27/2019 9:31 AM INSTANTIZER OPERATOR): A1c increased to 7.8. Pattern acceptable during [...] goal hba1c is under 7.0 to prevent custodial diabetes complications ( eye , kidney and [...] discussed. Assessment & Plan (08/07/2018 2:02 PM INSTANTIZER OPERATOR): A1c 8.1. Baseline BG reported at goal. [...] discussed. Assessment & Plan (10/05/2017 2:51 PM INSTANTIZER OPERATOR): Hba1c was . 9.6 . today, indicating [...] discussed. Assessment & Plan (07/20/2017 4:17 PM INSTANTIZER OPERATOR): A1c improved 8.7, ~ 2%. Mostly from [...] Team Description 11/28/2024 Telephone [facility] [address] [address] Erika Mandel ORDER PLANNER 11/21/2024 Telephone [facility] [address] [address] Anthony Castillo MD PA in CMM Dexcom G7 sensor 10/18/2024 Telephone [facility] [address] [address] Anthony Castillo MD from Last [...] on file Legal Sex Female 10:22 AM INSTANTIZER OPERATOR Gender Identity Not on file Sexual Orientation Straight 08/07/2024 2: 11 PM INSTANTIZER OPERATOR Obstetrics History Last Filed Vital Signs Vital Sign Reading Time Taken Comments Blood Pressure 100/68 08/07/2024 2:37 PM INSTANTIZER OPERATOR Pulse 66 08/07/2024 2:37 PM INSTANTIZER OPERATOR Temperature - - Respiratory Rate 17 08/07/2024 2:37 PM INSTANTIZER OPERATOR Oxygen Saturation - - Inhaled Oxygen Concentration - - Weight 109 kg (240 lb 6.4 oz) 08/07/2024 2:37 PM INSTANTIZER OPERATOR Height 170.2 cm (5' 7 ) 08/07/2024 2:37 PM INSTANTIZER OPERATOR Body Mass Index 37.65 08/07/2024 2:37 PM INSTANTIZER OPERATOR Plan of Treatment Health Maintenance Due Date [...] Diagnosis Comments EGFR Routine 08/07/2024 3:23 PM INSTANTIZER OPERATOR Type 2 diabetes mellitus with hyperglycemia, with long-term current use of insulin (HCC) POCT HEMOGLOBIN A1C Routine 08/07/2024 2 :38 PM INSTANTIZER OPERATOR Type 2 diabetes mellitus with hyperglycemia, with long-term current use of insulin (HCC) HM DIABETES EYE EXAM Routine 10/11/2023 9:29 AM INSTANTIZER OPERATOR ALBUMIN CREATININE RATIO, URINE Routine 08/28/2023 7:38 AM INSTANTIZER OPERATOR LIPID PANEL Routine 08/10/2023 1:53 PM INSTANTIZER OPERATOR Hyperlipidemia associated with type 2 diabetes mellitus (HCC) from Last 3 Months or Most Recently Relevant to Health Maintenance Results * (ABNORMAL) eGFR (08/07/2024 3:23 PM INSTANTIZER OPERATOR) eGFR 35(L) >=60 mL/min/1. 73 m2 Comment: [...] last reviewed 2021. Blood 08/07/2024 3:23 PM INSTANTIZER OPERATOR 08/07/2024 6:55 PM INSTANTIZER OPERATOR us Anthony Castillo MD LAB BLOOD ORDERABLES Final Resul t [facility] [id number] Department [place] [address] * (ABNORMAL) POCT hemoglobin A1c (08/07/2024 2:38 PM INSTANTIZER OPERATOR) Hemoglobin A1C, POC 7.1 4.0 - 5.6 % Comment:None Capillary blood 08/07/2024 2 :38 PM INSTANTIZER OPERATOR Result [facility] us Anthony Castillo MD POINT OF CARE TEST ORDERABLES Fi nal Result * (ABNORMAL) HM DIABETES EYE EXAM (10/11/2023 9:29 AM INSTANTIZER OPERATOR) Isis Salgado MD HEALTH MAINTENANCE Final Result * (ABNORMAL) Albumin Creatinine Ratio, Urine (08/28/2023 7:38 AM INSTANTIZER OPERATOR) SCRIBED Creatinine, Urine 75.44 40 - 278 EXTERNAL LAB SCRIBED Microalbumin 13.4(A) 0.0 - 11.9 EXTERNAL LAB SCRIBED Microalb/Creat Ratio 0.18 0 - 0.20 EXTERNAL LAB Urine 08/28/2023 7:38 AM INSTANTIZER OPERATOR us Historical Provider LAB URINE ORDERABLES Edit ed Result - Final EXTERNAL LAB * (ABNORMAL) Lipid panel (08/10/2023 1:53 PM INSTANTIZER OPERATOR) Cholesterol 164 30 - 199 mg/dL OLGA [...] 3 OLGA HORNER Blood 08/10/2023 1:53 PM INSTANTIZER OPERATOR 08/10/2023 7:31 PM INSTANTIZER OPERATOR us Anthony Castillo MD LAB BLOOD ORDERABLES Final Resul t [facility] [address] Department [place] [address] from Last 3 Months or Most Recently Relevant to Health Maintenance Insurance IDPA [facility] MEDICARE ADVANTAGE [facility] MEDICARE ADVANTAGE IDPA Care Teams Printing Table Hand Relationship Specialty Start Date End Date Willian Mendoza MD PCP - General 02/18/16
--- OUTSIDE RECORDS SUMMARY | 2024-12-27 20:31 | XMS_ITS | Encounter Summary ---
Author Organization [facility] Address On license of [facility] [place] [address] Care Team Providers Care Plaster Molder Name Role Phone Alexis Thurman MD Unavailable [phone] Willian Mendoza MD Primary Care Provider [phone] Cee Liu APRN, ASSEMBLER DC FIELD RING-C Unavailable [phone] Virgilio Meehan DO Primary Care Provider [phone] Mame Osborn MD Unavailable [phone] Encounter Details Date Type Department Care Team (Late st Contact Info) Description 07/04/2022 Abstract [facility] [address] [place] [address] Alexis Thurman MD [address] [place] [phone] Social History Tobacco Use Types Packs/Day Years [...] Coronavirus/COVID-19? No / Unsure 06/29/2022 5:44 AM INSTRUCTIONAL FACILITATOR documented as of this encounter Plan of Treatment Upcoming Encounters Date Type Department Care Team (Late st Contact Info) Description 05/12/2025 1:30 PM CDT Office Visit [facility] eld [address] [place] [address] Cee Liu APRN, ASSEMBLER DC FIELD RING-C [address] [facility] [address] [place] [address] documented as of this encounter [...] on filedocumented in this encounter Care Teams Plaster Molder Relationship Specialty Start Date End Date Willian Mendoza MD [address] [place] [address] PCP - General INTERNAL MEDICINE 09/14/18 09/07/22 Virgilio Meehan DO [address] [place] [address] PCP - General FAMILY PRACTICE 09/08/22 Alexis Thurman MD [address] [place] [address] [facility] Client Finance Analyst CARDIOVASCULAR DISEASE 09/14/18 04/01/24 Cee Liu APRN, ASSEMBLER DC FIELD RING-C [address] [facility] [address] [place] [address] NURSE PRACTITIONER 05/27/22 Mame Osborn MD [address] [place] [address] INTERVENTIONAL CARDIOLOGY 05/10/24 documented as of this encounter
--- OUTSIDE RECORDS SUMMARY | 2024-12-27 20:31 | XMS_ITS | Patient Health Record ---
Author Organization [facility] Address [address] [place], [place] [id number] Care Team Providers Care Online Communications Manager Name Role Phone MIRIAN MOSHER Unavailable [phone] Virgilio Meehan Unavailable Unavailable ADRIEN CONTRERAS Unavailable [phone] WILFREDO BRODERICK Unavailable [phone] Allergies No Known Allergies Reason For Referral No Information Medications Medication SIG (Take, Route, Frequency, Duration) Notes Start Date End Date Status nortriptyline 50 MG Oral Capsule ORAL nortriptyline 50 MG Oral CapsuleOriginal Medicationnortriptyline 50 MG Oral Capsule *Reorder from [facility] for eRx and Interaction Alerts* 04/07/20 14 Active Allopurinol 300 MG Oral Tablet ORAL allopurinol 300 MG Oral TabletOriginal Medicationallopurinol 300 MG Oral Tablet *Reorder from [facility] for eRx and Interaction Alerts* 04/07/20 14 Active esomeprazole 20 MG Injection INTRAVENOUS esomeprazole 20 MG InjectionOriginal Medicationesomeprazole 20 MG Injection *Reorder from [facility] for eRx and Interaction Alerts* 04/07/20 14 Active levothyroxine sodium 0.1 MG Oral Capsule ORAL levothyroxine sodium 0.1 MG Oral CapsuleOriginal Medicationlevothyroxine sodium 0.1 MG Oral Capsule *Reorder from [facility] for eRx and Interaction Alerts* 04/07/20 14 Active ciclopirox 80 MG/ML Topical Solution CUTANEOUS ciclopirox 80 MG/ML Topical SolutionOriginal Medicationciclopirox 80 MG/ML Topical Solution *Reorder from [facility] for eRx and Interaction Alerts* 04/20/20 12 Active cinnamon bark 500 MG Oral Capsule ORAL cinnamon bark 500 MG Oral CapsuleOriginal Medicationcinnamon bark 500 MG Oral Capsule *Reorder from [facility] for eRx and Interaction Alerts* 04/07/20 14 Active 3 ML insulin glargine 100 UNT/ML Pen Injector [Lantus] 3 ML insulin glargine 100 UNT/ML Pen Injector [Lantus]Original Medication3 ML insulin glargine 100 UNT/ML Pen Injector [Lantus] *Reorder from [facility] for eRx and Interaction Alerts* 04/07/20 14 Active cholecalciferol 0.025 MG Oral Capsule ORAL cholecalciferol 0.025 MG Ora l CapsuleOriginal Medicationcholecalciferol 0.025 MG Oral Capsule *Reorder from [facility] for eRx and Interaction Alerts* 04/07/20 14 Active Pravastatin Sodium 10 MG Oral Tablet ORAL pravastatin sodium 10 MG Ora l TabletOriginal Medicationpravastatin sodium 10 MG Oral Tablet *Reorder from [facility] for eRx and Interaction Alerts* 04/07/20 14 Active Losartan Potassium 100 MG Oral Tablet ORAL losartan potassium 100 MG Oral TabletOriginal Medicationlosartan potassium 100 MG Oral Tablet *[facility] for eRx and Interaction Alerts* 04/07/20 14 Active Spironolactone 25 MG Oral Tablet ORAL spironolactone 25 MG Oral TabletOriginal Medicationspironolactone 25 MG Oral Tablet *Reorder from [facility] for eRx and Interaction Alerts* 04/07/20 14 Active propranolol hydrochloride 40 MG Oral Tablet ORAL propranolol hydrochloride 40 MG Oral TabletOriginal Medicationpropranolol hydrochloride 40 MG Oral Tablet *Reorder from [facility] for eRx and Interaction Alerts* 04/07/20 14 Active Nabumetone 500 MG Oral Tablet ORAL nabumetone 500 MG Oral TabletOriginal Medicationnabumetone 500 MG Oral Tablet *Reorder from [facility] for eRx and Interaction Alerts* 06/29/20 12 Active verapamil hydrochloride 40 MG Oral Tablet ORAL verapamil hydrochloride 40 M G Oral TabletOriginal Medicationverapamil hydrochloride 40 MG Oral Tablet *[facility] Interaction [facility]* 04/07/20 14 Active Immunizations Vaccine Route Administration Date Status Comme nts Influenza, unspecified formulation Unknown 06/30/2023 A dministered Vital Signs Height-cm 170.18 cm 02/08/2024 Weight-kg 113.85 kg 02/08/2024 Height 67.00 in 02/08/2024 Weight 251 lbs 02/08/2024 BMI 39.31 kg/m2 02/08/2024 Encounters Encounter Location Date Provider Diagnosis [address] [id number] 02/08/2024 ADRIEN CONTRERAS Unspecified atherosclerosis of [place] arteries of extremities, bilateral legs I70.203 ; Tinea unguium B35.1 ; Pain in left toe(s) M79.675 ; Other hammer toe(s) (acquired), right foot M20.41 ; Other hammer toe(s) (acquired), left foot M20.42 and Pain in right toe(s) M79.674 [facility] [address] [place], [place] [id number] 04/11/2024 ADRIEN CONTRERAS Unspecified atherosclerosis of [place] arteries of extremities, bilateral legs I70.203 ; Tinea unguium B35.1 ; Pain in left toe(s) M79.675 ; Other hammer toe(s) (acquired), right foot M20.41 ; Other hammer toe(s) (acquired), left foot M20.42 ; Pain in right toe(s) M79.674 and Acquired 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 [id number] 10/10/2024 MIRIAN MOSHER Tinea unguium B35.1 ; Acquired 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 ; Atherosclerosis of [place] arteries of extremities with intermittent claudication, bilateral legs I70.213 ; Pain in right foot M79.671 and Pain in left foot M79.672 [facility] [address] [facility] [address] [place], [place] [id number] 12/09/2024 MIRIAN MOSHER Assessments Encounter Date Diagnosis [...] and prescription treatments. 02/08/2024 Unspecified atherosclerosis of [place] arteries of extremities, bilateral legs (ICD-10 - [...] and prescription treatments. 04/11/2024 Unspecified atherosclerosis of [place] arteries of extremities, bilateral legs (ICD-10 - [...] utilizing a #15 blade 10/10/2024 Atherosclerosis of [place] arteries of extremities with intermittent claudication, bilateral [...] Details Provider Name:WILFREDO MARTIN, 01/02/2025 02:10:00 PM, [address] [place] [address], [id number], Insurance Providers Payer Name Payer Address Payer Phone Subscriber Number Group Number Insured Name Patient Relationship to Insured Coverage Start Date Coverage End Date [facility] [address] [address] [place] [id number] MATEUSZ MONROE Self - patient is the insured
--- OUTSIDE RECORDS SUMMARY | 2024-12-27 20:31 | XMS_ITS | Encounter Summary ---
Author Organization [facility] Address [facility] [place] [address] Care Team Providers Care Reshipping Clerk Name Role Phone Alexis Thurman MD Unavailable [phone] Willian Mendoza MD Primary Care Provider [phone] Cee Liu APRN, AEROSPACE ASSEMBLER-C Unavailable [phone] Virgilio Meehan DO Primary Care Provider [phone] Mame Osborn MD Unavailable [phone] Encounter Details Date Type Department Care Team (Late st Contact Info) Description 04/07/2021 Abstract [facility] [address] [place] [address] [place] [address] [place] [phone] Social History Tobacco Use Types Packs/Day Years [...] 05/12/2025 1:30 PM CDT Office Visit [facility] [address] [place] [phone] Cee Liu APRN, AEROSPACE ASSEMBLER-C [address] [phone] documented as of this encounter Visit Diagnoses Not on filedocumented in this encounter Care Teams Reshipping Clerk Relationship Specialty Start Date End Date Willian Mendoza MD [address] [place] [address] PCP - General INTERNAL MEDICINE 09/14/18 09/07/22 Virgilio Meehan DO [address] [place] [address] PCP - General FAMILY PRACTICE 09/08/22 Alexis Thurman MD [address] [place] [phone] [facility] Case Worker CARDIOVASCULAR DISEASE 09/14/18 04/01/24 Cee Liu APRN, AEROSPACE ASSEMBLER-C [address] [phone] NURSE PRACTITIONER 05/27/22 Mame Osborn MD [address] [place] [address] INTERVENTIONAL CARDIOLOGY 05/10/24 documented as of this encounter
--- OUTSIDE RECORDS SUMMARY | 2024-12-27 20:31 | XMS_ITS ---
Author Organization [facility] Address [address] [place], [place] [id number] Care Team Providers Care Nursing Resident Name Role Phone MIRIAN MOSHER Unavailable [phone] Virgilio Meehan Unavailable Unavailable WILFREDO BRODERICK Unavailable [phone] REASON FOR VISIT *General care Encounters Encounter Location Date Provider Diagnosis [address] [id number] 12/12/2024 WILFREDO BRODERICK Plan Of Treatment Next Appt Details Provider Name:WILFREDO MARTIN, 01/02/2025 02:10:00 PM, [address] [place] [address], [id number], Progress Notes * MATEUSZ MONROE ADOB:[birth year] (59 yo F)Acc No.[id number]:12/12/2024 Patient: MATEUSZ ZHU Provider: Gavi BRODERICK :1965 A ge:59 Y S ex:Female Date:12/12/2024 Address:[address] [place], [place] [phone] Subjective: * Chief Complaints: * 1 . *General care. * Medical History: Objective: * Vitals: Assessment: Plan: * Treatment: * Billing Information: * Visit Code: * Procedure Codes: * Electronic signature of KINA BRODERICK DPM on 12/27/2024 at 08:31 PM CDT Sign off status: Pending * Provider: Gavi BRODERICK Date: 0 12/12/2024 Generated for Curt small/Ana Maria/Jose on: 0 12/27/2024 08:31 PM FARRAH
--- OUTSIDE RECORDS SUMMARY | 2024-12-27 20:31 | XMS_ITS | Encounter Summary ---
Author Organization [facility] Address [facility] [place] [address] Care Team Providers Care Regional Transfer Liaison Name Role Phone Alexis Thurman MD Unavailable [phone] Cee Liu APRN, NP-C Unavailable [phone] Virgilio Meehan DO Primary Care Provider Mame Osborn MD Unavailable [phone] Encounter Details Date Type Department Care Team (Late Contact Info) Description 09/23/2022 [facility] [address] [place] [phone] Alexis Thurman MD [address] [place] [address] Social History Tobacco Use Types [...] Coronavirus/COVID-19? No / Unsure 09/08/2022 8:48 AM PRODUCTION CLOTH CUTTER documented as of this encounter Plan of Treatment Upcoming Encounters Date Type Department Care Team (Late Contact Info) Description 05/12/2025 1:30 PM CDT Office Visit [facility] el [address] [place] [address] Cee Liu APRN, ROAD CLEANER-C [address] [facility] [address] [place] [phone] documented as of this encounter Visit Diagnoses Not on filedocumented in this encounter Care Teams Regional Transfer Liaison Relationship Specialty Start Date End Date Virgilio Meehan DO [address] [place] [address] PCP - General FAMILY PRACTICE 09/08/22 Alexis Thurman MD [address] [place] [phone] [place] Referral And Information Aide CARDIOVASCULAR DISEASE 09/14/18 04/01/24 Cee Liu APRN, ROAD CLEANER-C [address] [facility] [address] [phone] NURSE PRACTITIONER 05/27/22 Mame Osborn MD [address] [place] [address] INTERVENTIONAL CARDIOLOGY 05/10/24 documented as of this encounter
--- OUTSIDE RECORDS SUMMARY | 2024-12-27 20:31 | XMS_ITS | Continuity of Care Document ---
Author Organization [facility] Address [address] [facility] [address] [place] [address] Phone Care Team Providers Care Cot Assembler Name Role Phone Nilson Vaughan Unavailable Unavailable [...] Diagnoses Date Provider Providers Copied on Encounter [facility], [address], [place], [place], [id number], [place] tel:[phone] [facility] No Information Clement Devine. [address] [place], [address], [place]. tel:[phone] Referring Provider: Nilson Stewart, [address] [place], [address]. tel:[phone] [facility], [address], [place], [place], [id number], [place] tel:[phone] [facility] No Information Clement Devine. [address] [place], [address], [place]. tel:[phone] Referring Provider: Nilson Stewart, [address] [place], [address]. tel:[phone] [facility], [address], [place], [place], [id number], [place] tel:[phone] [facility] No Information Clement Devine. [address] [place], [address], [place]. tel:[phone] Referring Provider: Nilson Stewart, [address] [place], [address]. tel:[phone] [facility], [address], [place], [place], [id number], [place] tel:[phone] [facility] No Information Clement Devine. [address] [place], [address], [place]. [phone] Referring Provider: Nilson Stewart, [address] [place], [address]. tel:[phone] [facility], [address], [place], [place], [id number], [place] tel:[phone] [facility] No Information Clement Devine. [address] [place], [address], [place]. tel:[phone] [facility], [address], [place], [place], [id number], [place] tel:[phone] [facility] No Information Clement Devine. [address] [place], [address], [place]. tel:[phone] Referring Provider: Nilson Stewart, [address] [place], [address]. tel:[phone] Office/outpat ient Visit, [facility], [address], [place], [place], [id number], [place] tel:[phone] [facility] No Information Clement Devine. [address] [place], [address], [place]. tel:[phone] Family History Family Member Type Diagnosis Age At Onset No Information Payers Payer name Insurance type Covered libertarian ID Authorshiloha tiisaiah(s) Medicaid [facility]LY [facility] [id number] Social History Type Description Quantity Date Captured [...]
--- OUTSIDE RECORDS SUMMARY | 2024-12-27 20:31 | XMS_ITS | Referral Summary ---
Author Organization [address] Address [address] [place] [address] Care Team Providers Care Audiology Technician Name Role Phone Willian Mendoza MD Primary Care Provider Encounters Date Type Department Care Team Description 11/28/2024 Telephone [facility] of [address] [address] Erika Mandel REGISTERED APPRAISER 11/21/2024 Telephone [facility] [address] [address] Anthony Castillo MD PA in CM Dexcom G7 sensor 10/18/2024 Telephone [facility] [address] [address] Anthony Castillo MD from Last [...] mouth 2 (two) times a day Active vjvdvxqchjha-Wp-a marva-minerals tablet Take 1 tablet by mouth [...] 1 tablet (100 mcg total) by mouth air traffic control specialist center before breakfast 90 tablet 3 024 Active [...] 03/17/2022 Assessment & Plan (08/07/2024 5:51 PM BANK REPRESENTATIVE): Chronic, stable. Continue levothyroxine Update TFTs Assessment & Plan (08/10/2023 3:53 PM BANK REPRESENTATIVE): Chronic, well-controlled Importance of taking levothyroxine on [...] 04/17/2018 Assessment & Plan (08/07/2024 5:51 PM BANK REPRESENTATIVE): Chronic, stable Update lipid profile Continue statin therapy Assessment & Plan (08/10/2023 3:53 PM BANK REPRESENTATIVE): Chronic, well-controlled Continue statin therapy with Pravachol Assessment & Plan (01/17/2023 1:59 PM CDT): Chronic, well controlled Low fat Low cholesterol diet Exercise Continue statin therapy with Pravachol Assessment & Plan (03/17/2022 9:47 AM CDT): Chronic problem. On statin therapy, no changes. Assessment & Plan (10/28/2021 1:21 PM BANK REPRESENTATIVE): Chronic problem. On statin therapy, no changes. [...] Pravachol Assessment & Plan (09/27/2019 9:29 AM BANK REPRESENTATIVE): LDL at goal. Trigs elevated. Continue statin [...] therapy Assessment & Plan (08/07/2018 1:59 PM BANK REPRESENTATIVE): At goal on current medications. Assessment & [...] dicussed Assessment & Plan (09/27/2019 9:29 AM BANK REPRESENTATIVE): Continues to do well with wt loss [...] adjusted. Assessment & Plan (08/07/2018 1:59 PM BANK REPRESENTATIVE): Continues to gain weight. Little attempt at diet and exercise. Reviewed importance of avoiding juice, soda, high fat, high carb foods. Assessment & Plan (10/05/2017 2:49 PM BANK REPRESENTATIVE): Diet and exercise were discussed. 1200 Calorie diet advised 45-60 min aerobic / resistance exercise most days of the week recommended. Bariatric surgery medically indicated Assessment & Plan (07/20/2017 4:17 PM BANK REPRESENTATIVE): Importance of following diet and exercising discussed. [...] changes. Assessment & Plan (10/28/2021 1:21 PM BANK REPRESENTATIVE): Controlled on current medications, no changes. Assessment [...] microalbumin Assessment & Plan (09/27/2019 9:29 AM BANK REPRESENTATIVE): Controlled on current medications. Continue plan. Assessment & Plan (06/06/2019 2:49 PM CDT): Controlled on current medications. Continue plan. Assessment & Plan (11/01/2018 2:04 PM CDT): Goal blood pressure is less than 140/85 Low salt diet recommended Daily aerobic exercise Continue current meds, including ALYCE-I or ARB Assessment & Plan (08/07/2018 2:00 PM BANK REPRESENTATIVE): Controlled on current medications. Assessment & Plan (04/17/2018 2:07 PM CDT): Goal blood pressure is less than 140/85 Low salt diet recommended Daily aerobic exercise Continue current meds, including ALYCE-I or ARB Assessment & Plan (10/05/2017 2:50 PM BANK REPRESENTATIVE): Goal blood pressure is less than 140/85 Low salt diet recommended Daily aerobic exercise Continue current meds, including ALYCE-I or ARB Assessment & Plan (07/20/2017 4:18 PM BANK REPRESENTATIVE): Controlled on current medications. Assessment & Plan (04/06/2017 4:28 PM CDT): At goal on current medications. Hyperlipidemia 09/19/2012 Overview (11/24/2016): HYPERLIPIDEMIA NEC/NOS Assessment & Plan (06/06/2019 2:49 PM CDT): Lipid panel ordered Assessment & Plan (07/20/2017 4:18 PM BANK REPRESENTATIVE): Will check lipid panel Assessment & Plan (04/06/2017 4:28 PM CDT): Check labs and focus on low fat foods Furuncle of trunk 06/28/2012 Overview (11/23/2016): Carbuncle and furuncle of trunk Type 2 diabetes mellitus 06/28/2012 Overview (11/24/2016): DMII WO CMP UNCNTRLD Assessment & Plan (08/07/2024 5:50 PM BANK REPRESENTATIVE): Chronic, stable Diet and exercise were emphasized Continue Farxiga and Ozempic Assessment & Plan (02/13/2024 4:29 PM CDT): Chronic, well-controlled. Continue Ozempic 2 mg weekly Farxiga 10 mg Importance of diet and exercise was discussed Assessment & Plan (08/10/2023 3:52 PM BANK REPRESENTATIVE): Chronic, well-controlled, with some postprandial hyperglycemia Continue [...] Farxita Assessment & Plan (07/19/2022 1:34 PM BANK REPRESENTATIVE): Hba1c was Lab Results Component Value Date [...] today. Assessment & Plan (10/28/2021 1:43 PM BANK REPRESENTATIVE): Chronic problem, not at goal. Increase NL [...] breakfast Assessment & Plan (09/27/2019 9:31 AM BANK REPRESENTATIVE): A1c increased to 7.8. Pattern acceptable during [...] goal hba1c is under 7.0 to prevent pile driving technician diabetes complications ( eye , kidney and [...] discussed. Assessment & Plan (08/07/2018 2:02 PM BANK REPRESENTATIVE): A1c 8.1. Baseline BG reported at goal. [...] discussed. Assessment & Plan (10/05/2017 2:51 PM BANK REPRESENTATIVE): Hba1c was . 9.6 . today, indicating [...] discussed. Assessment & Plan (07/20/2017 4:17 PM BANK REPRESENTATIVE): A1c improved 8.7, ~ 2%. Mostly from [...] on file Legal Sex Female 10:22 AM BANK REPRESENTATIVE Gender Identity Not on file Sexual Orientation Straight 08/07/2024 2: 11 PM BANK REPRESENTATIVE Last Filed Vital Signs Vital Sign Reading Time Taken Comments Blood Pressure 100/68 08/07/2024 2:37 PM BANK REPRESENTATIVE Pulse 66 08/07/2024 2:37 PM BANK REPRESENTATIVE Temperature - - Respiratory Rate 17 08/07/2024 2:37 PM BANK REPRESENTATIVE Oxygen Saturation - - Inhaled Oxygen Concentration - - Weight 109 kg (240 lb 6.4 oz) 08/07/2024 2:37 PM BANK REPRESENTATIVE Height 170.2 cm (5' 7 ) 08/07/2024 2:37 PM BANK REPRESENTATIVE Body Mass Index 37.65 08/07/2024 2:37 PM BANK REPRESENTATIVE Plan of Treatment Not on file Procedures Procedure Name Priority Date/Time Associated Diagnosis Comments EGFR Routine 08/07/2024 3:23 PM BANK REPRESENTATIVE Type 2 diabetes mellitus with hyperglycemia, with long-term current use of insulin (HCC) POCT HEMOGLOBIN A1C Routine 08/07/2024 2 :38 PM BANK REPRESENTATIVE Type 2 diabetes mellitus with hyperglycemia, with long-term current use of insulin (HCC) HM DIABETES EYE EXAM Routine 10/11/2023 9:29 AM BANK REPRESENTATIVE ALBUMIN CREATININE RATIO, URINE Routine 08/28/2023 7:38 AM BANK REPRESENTATIVE LIPID PANEL Routine 08/10/2023 1:53 PM BANK REPRESENTATIVE Hyperlipidemia associated with type 2 diabetes mellitus (HCC) from Last 3 Months or Most Recently Relevant to Health Maintenance Results * (ABNORMAL) eGFR (08/07/2024 3:23 PM BANK REPRESENTATIVE) eGFR 35(L) >=60 mL/min/1. 73 m2 Comment: [...] last reviewed 2021. Blood 08/07/2024 3:23 PM BANK REPRESENTATIVE 08/07/2024 6:55 PM BANK REPRESENTATIVE us Anthony Castillo MD LAB BLOOD ORDERABLES Final Resul t OLGA [id number] [address] Department [place] [address] * (ABNORMAL) POCT hemoglobin A1c (08/07/2024 2:38 PM BANK REPRESENTATIVE) Hemoglobin A1C, POC 7.1 4.0 - 5.6 % Comment:None Capillary blood 08/07/2024 2 :38 PM BANK REPRESENTATIVE Result [facility] Anthony Castillo MD POINT OF CARE TEST ORDERABLES Fi nal Result * (ABNORMAL) DIABETES EYE EXAM (10/11/2023 9:29 AM BANK REPRESENTATIVE) Isis Salgado MD HEALTH MAINTENANCE Final Result * (ABNORMAL) Albumin Creatinine Ratio, Urine (08/28/2023 7:38 AM BANK REPRESENTATIVE) SCRIBED Creatinine, Urine 75.44 40 - 278 EXTERNAL LAB SCRIBED Microalbumin 13.4(A) 0.0 - 11.9 EXTERNAL LAB SCRIBED Microalb/Creat Ratio 0.18 0 - 0.20 EXTERNAL LAB Urine 08/28/2023 7:38 AM BANK REPRESENTATIVE us Historical Provider LAB URINE ORDERABLES Edit ed Result - Final EXTERNAL LAB * (ABNORMAL) Lipid panel (08/10/2023 1:53 PM BANK REPRESENTATIVE) Cholesterol 164 30 - 199 mg/dL OL[facility] [...] 3 [facility] HORNER Blood 08/10/2023 1:53 PM BANK REPRESENTATIVE 08/10/2023 7:31 PM BANK REPRESENTATIVE us Anthony Castillo MD LAB BLOOD ORDERABLES Final Resul t [facility] [address] [address] Department [place] [address] from Last 3 Months or Most Recently Relevant to Health Maintenance Insurance IDPA [facility] MEDICARE ADVANTAGE [facility] MEDICARE ADVANTAGE [facility] Care Teams Audiology Technician Relationship Specialty Start Date End Date Willian Mendoza MD [facility] - General 02/18/16
--- OUTSIDE RECORDS SUMMARY | 2024-12-27 20:31 | XMS_ITS | Encounter Summary ---
Author Organization [facility] Address [facility] [place] [address] Care Team Providers Care Exam Proctor Name Role Phone Alexis Thurman MD Unavailable [phone] Willian Mendoza MD Primary Care Provider [phone] Cee Liu APRN, CYBER SECURITY ADMINISTRATOR-C Unavailable Virgilio Meehan DO Primary Care Provider [phone] Mame Osborn MD Unavailable [phone] Encounter Details Date Type Department Care Team (Late st Contact Info) Description 10/12/2018 Abstract [facility] [address] [place] [address] Abstract, Doc [facility] Social History [...] 05/12/2025 1:30 PM CDT [facility] [address] [place] [address] Cee Liu APRN, CYBER SECURITY ADMINISTRATOR-C [address] [facility] [address] [place] [address] documented as of this encounter Visit Diagnoses Not on filedocumented in this encounter Care Teams Exam Proctor Relationship Specialty Start Date End Date Willian Mendoza MD [address] [place] [address] PCP - General INTERNAL MEDICINE 09/14/18 09/07/22 Virgilio Meehan DO [address] [place] [address] PCP - General FAMILY PRACTICE 09/08/22 Alexis Thurman MD [address] [place] [phone] [facility] CARDIOVASCULAR DISEASE 09/14/18 04/01/24 Cee Liu APRN, CYBER SECURITY ADMINISTRATOR-C [address] [facility] [address] [place] [address] NURSE PRACTITIONER 05/27/22 Mame Osborn MD [address] [place], [place] [id number] INTERVENTIONAL CARDIOLOGY 05/10/24 documented as of this encounter
--- OUTSIDE RECORDS SUMMARY | 2024-12-27 20:31 | XMS_ITS | Clinical Summary ---
Author Organization [facility] Address [facility] access hospital[address] [place] [address] Care Team Providers Care Lacrosse Player Name Role Phone Cee Liu APRN TOOLING MECHANIC-C Unavailable Virgilio Meehan DO Primary Care Provider [phone] Mame Osborn MD Unavailable [phone] Allergies Active Allergy Reactions Criticality Noted Date Comments Amoxicillin-Pot Clavulanate Diarrhea 05/27/2022 Metformin Other (see comment) 05/27/2022 Renal function impairment Pantoprazole Other (see comment) 05/27/2022 Hypomagnesemia Medications CPAP DME DEVICE CPAPCPAP [id number] via IV [id number] Morrissey 8 Active pravastatin (PRAVACHOL) 20 MG [...] mouth 2 (two) times daily. Active CREON 34783-724138 units capsule Take 2 capsules (72,000 units [...] check lipid panel Hypertension associated with diabetes ([facility] HS/[facility]) 09/19/2012 Overview (10/22/2018): Overview: Unspecified essential hypertension Last Assessment & Plan: Controlled on current medications. Type 2 diabetes mellitus ([facility]) 06/28 Overview (10/22/2018): Overview: DMII WO [...] Type Department Care Team Description 11/12/2024 Telephone [facility] [address] [place] [address] Ella Witt MD Results 11/12/2024 Orders Only [facility] [address] [place] [address] Ella Witt MD 11/12/2024 Abstract [facility] [address] [place] [address] Ella Witt MD 11/04/2024 11:15 AM CDT - 11/04/2024 11:59 PM CDT Hospital Encounter [facility] [address] [place] [address] Ella Witt MD Discharge Disposition: Home or Self Care (Routine Discharge) 11/04/2024 10:30 AM CDT Office Visit [facility] [address] [place], [place] [address] [address] Gonzalez Wilson MD Bhatti, Vikrampal S, MD CKD Follow-up (Pt is having some low back pain for the past 3 or 4 days.) 11/04/2024 Scan [facility] [address] [place] [address] Scanned, Doc Cikda 11/04/2024 Orders Only [facility] [place] [address] Ella Witt MD 11/04/2024 Travel 10/29/2024 Scan [facility] [address] [place] [address] Scanned, Doc Cikda Lab (SCAN) from Last [...] 36.2 C (97.2 F) 06/29/2022 6:18 AM DIRECTOR OF GROUP COUNSELING PROGRAM Respiratory Rate 16 05/10/2024 12:4 0 PM [...] 05/12/2025 1:30 PM CDT Office Visit [facility] eld [address] [place] [phone] Cee Liu, WALL STEAMER, TOOLING MECHANIC-C [address] [facility] [address] [place] [address] Health Maintenance Due Date Last [...] this topic Medical Devices Implanted Type Area Shochet Device Identifier Shelf Expiration Date Model / Serial / Lot Stent Ureteral Lumberport Sci Contour 6fr X 26cm - [id number] Implanted:Qty : 1 on 06/28/2021 by Ryan Vinson MD at [facility] Stent Right: Ureter ShotClip MASOOD [id number] 04/12/2024 [id number] / / [id number] Procedures Procedure Name Priority Date/Time Associated Diagnosis Comments HC URINALYSIS AUTO W/MICRO Routine 11/04/2024 11:24 AM CDT Chronic kidney disease, stage 3b (CMS/HCC) OUTSIDE LAB (SCAN ORDER) Routine 10/29/2024 LIPID PANEL Routine 07/23/2009 12:00 AM DIRECTOR OF GROUP COUNSELING PROGRAM from Last 3 Months or Most Recently Relevant to Health Maintenance Results * (ABNORMAL) URINALYSIS (11/04/2024 11:24 AM CDT) COLOR (U) YELLOW 11/04/2024 11:52 AM CDT [facility] TRANSPARENCY CLEAR 11/04/2024 11:52 AM CDT [facility] SPECIFIC GRAVITY (U) 1.020 1.000 - 1.025 11/04/2024 11:52 AM CDT [facility] U PH 5.5 5.0 - 8.0 11/04/2024 11:52 AM CDT [facility] LEUKOCYTES (U) TRACE(A) NEGATIVE 11/04/2024 11:52 AM CDT [facility] NITRITES NEGATIVE NEGATIVE 11/04/2024 11:52 AM CDT [facility] PROTEIN RANDOM (U) NEGATIVE NEGATIVE 11/04/2024 11:52 AM CDT [facility] GLUCOSE (U) 2+(A) NEGATIVE 11/04/2024 11:52 AM CDT [facility] KETONES MG/DL (U) NEGATIVE NEGATIVE 11/04/2024 11:52 AM CDT [facility] UROBILINOGEN 0.2 <1.0 EU/DL 11/04/2024 11:52 AM CDT [facility] BILIRUBIN (U) NEGATIVE NEGATIVE 11/04/2024 11:52 AM CDT [facility] BLOOD (U) NEGATIVE NEGATIVE 11/04/2024 11:52 AM CDT [facility] WBC/HPF 0-5 0 - 5 /HPF 11/04/2024 11:52 AM CDT [facility] RBC/HPF 0-5 0 - 5 /HPF 11/04/2024 11:52 AM CDT [facility] EPI/LPF FEW /LPF 11/04/2024 11:52 AM CDT [facility] BACTERIA (U) 1+ /HPF 11/04/2024 11:52 AM CDT [facility] URINE SPECIMEN OBTAINED BY CLEAN CATCH PROCEDURE / Unknown 11/04/2024 11:24 AM CDT Ella Witt MD URINE ORDERABLES Final Res ult [facility] [place] [address], * OUTSIDE LAB (10/29/2024) 10/29/2024 us Doc Cikda Scanned SCANNING Final Result [facility] ON[facility] * LIPID PANEL (07/23/2009 12:00 AM DIRECTOR OF GROUP COUNSELING PROGRAM) TRIGLYCERIDES 132 0 - 150 mg/dl MEDINFORMATIX TO EPIC CONVERSION CHOLESTEROL 180 0 - 200 mg/dl MEDINFORMATIX TO EPIC CONVERSION HDL 61 40 - 59 mg/dl MEDINFORMATIX TO EPIC CONVERSION LDL CONVERSION 93 0 - 100 mg/dl MEDINFORMATIX TO EPIC CONVERSION CHOL/HDL RATIO 3.0 <4.0 (Calc) MEDINFORMATIX TO EPIC CONVERSION 07/23/2009 07/23/2009 Narrative MEDINFORMATIX TO EPIC CONVERSION - 07/23/2009 1:31 PM DIRECTOR OF GROUP COUNSELING PROGRAM Reviewed by ANGELA Jul 23 2009 1:33:00:000PM us Generic Conversion Md [facility] Final R esult MEDINFORMATIX TO EPIC CONVERSION from Last 3 Months or Most Recently Relevant to Health Maintenance Insurance MEDICAID DEPT OF [address] MEDICAID [facility] MEDICAID Advance Directives * Full Code (Latest Code Status on File) Date Activated Date Inactivated Comments 06/29/2022 9:52 AM 06/29/2022 1:43 PM Care Teams Lacrosse Player Relationship Specialty Start Date End Date Virgilio Meehan DO [address] [place] [address] PCP - General FAMILY PRACTICE 09/08/22 Cee Liu APRN, TOOLING MECHANIC-C [address] [place] [address] [address] [place] [address] NURSE PRACTITIONER 05/27/22 Mame Osborn MD [address] [place] [address] INTERVENTIONAL CARDIOLOGY 05/10/24
--- OUTSIDE RECORDS SUMMARY | 2024-12-27 20:32 | XMS_ITS | Encounter Summary ---
Author Organization [facility] Address [facility] [place] [address] Care Team Providers Care Logging Engineer Name Role Phone Alexis Thurman MD Unavailable [phone] Willian Mendoza MD Primary Care Provider [phone] Cee Liu APRN, STRUCTURAL STEEL PAINTER-C Unavailable Virgilio Meehan DO Primary Care Provider [phone] Mame Osborn MD Unavailable [phone] Encounter Details Date Type Department Care Team (Late st Contact Info) Description 11/04/2017 Abstract [facility] [address] [place] [address] , Generic ConversionMD Social History Tobacco Use [...] Description 05/12/2025 1:30 PM CDT Office Visit [facility] eld [address] [place] [address] Cee Liu, ANGEL, STRUCTURAL STEEL PAINTER-C [address] [facility] [address] [place] [address] documented as of this encounter Visit Diagnoses Not on filedocumented in this encounter Care Teams Logging Engineer Relationship Specialty Start Date End Date Willian Mendoza MD [address] [place] [address] PCP - General INTERNAL MEDICINE 09/14/18 09/07/22 Virgilio Meehan DO [address] [place] [address] PCP - General FAMILY PRACTICE 09/08/22 Alexis Thurman MD [address] [place] [address] [place] [facility] Machine Embossograph Operator CARDIOVASCULAR DISEASE 09/14/18 04/01/24 Cee Liu, PIPEFITTER WELDER, STRUCTURAL STEEL PAINTER-C [address] [facility] [address] [place] [address] NURSE PRACTITIONER 05/27/22 Mame Osborn MD [address] [place] [address] INTERVENTIONAL CARDIOLOGY 05/10/24 documented as of this encounter
--- NOTE | 2024-12-27 20:37 | ED.HA ---
HPI - Headache General Chief Complaint: Headache Stated Complaint: headache Time Seen by Provider: 12/27/24 20:31 Source: patient Mode of arrival: ambulatory Limitations: no limitations History of Present Illness HPI Narrative: Patient is a 59-year-old female with a headache that started after getting her back upper right wisdom tooth removed last week. She has been having headache that has been on resolving for a week. It started on the right and then went to the top and then went to the left of her head and face. No migraine history. Blood pressure stable. Heart rate stable. She was put on 2 different antibiotics recently and that has not helped. She has low magnesium typically. She is getting magnesium replacement this week. MD elicited complaint: headache Pertinent past history: hypertension and other ( Diabetes 2, hypothyroid, seasonal allergies, gout) Onset (ago): week(s) ( 1) Onset description: gradually Location: right, left and frontal Severity: moderate Pain scale (0-10): 7 Quality & Timing: throbbing, sharp and different than previous headaches Exacerbating factors: none Relieving factors: nothing Context: other ( occurred after having tooth removed a week ago) Associated symptoms: other ( neck pain without fever) Treatments prior to arrival: acetaminophen and ibuprofen Related Data Home Medications ?Medication ?Instructions ?Recorded ?Confirmed ?Last Taken ?Type semaglutide 1 mg/dose (2 mg/1.5 1 mg subcut WEEKLY 09/30/22 12/03/24 02/28/23 History mL) subcutaneous pen injector (Ozempic) dapagliflozin propanediol 10 mg 10 mg PO DAILY 10/18/22 12/03/24 03/02/23 History tablet (Farxiga) vitamin B complex 1 tablet PO DAILY 02/16/23 12/03/24 03/02/23 History ascorbate calcium (vitamin C) 500 1 g PO DAILY 11/15/23 12/03/24 Unknown History mg tablet ferrous sulfate 325 mg (65 mg 325 mg PO BID 08/19/24 12/03/24 Unknown History iron) capsule,extended release losartan 50 mg tablet 50 mg PO DAILY 11/15/24 12/03/24 Unknown History magnesium citrate,mag oxide 250 mg mg PO 11/15/24 12/03/24 Unknown History capsule propranolol 60 mg capsule,24 40 mg PO DAILY 11/15/24 12/03/24 Unknown History hr,extended release Allergies Allergy/AdvReac Type Severity Reaction Status Date / Time amoxicillin AdvReac Severe Diarrhea Verified 12/03/24 14:02 metformin AdvReac Severe Diarrhea Uncoded 12/03/24 14:02 Review of Systems Review of Systems: All systems reviewed & are unremarkable except as noted in HPI and below Constitutional: Constitutional: Reports no additional constitutional complaints Eyes: Eyes: Reports no additional eye complaints ENT: Reports system reviewed and no additional complaints, except as documented Cardiovascular: Cardiovascular: Reports no additional cardiovascular complaints Respiratory: Respiratory: Reports no additional respiratory complaints Gastrointestinal: Gastrointestinal: Reports no additional gastrointestinal complaints Genitourinary: Genitourinary: Reports no additional female genitourinary complaints Musculoskeletal: Musculoskeletal: Reports no additional musculoskeletal complaints Integumentary/Breasts: Skin/Breast: Reports system reviewed and no additional complaints, except as docu Neurologic: Reports system reviewed and no additional complaints, except as documented Psychiatric: Psychiatric: Reports no additional psychiatric complaints Endocrine: Endocrine: Reports no additional endocrine complaints Hematologic/Lymphatic: Hematologic/Lymphatic: Reports no additional hematologic/lymphatic complaints Allergic/Immunologic: Allergic/Immunologic: Reports no additional allergic/immunologic complaints PMFSH Past Medical History Medical History Chronic pancreatitis Trigger finger, right little finger Low back pain CKD (chronic kidney disease) stage 3, GFR 30-59 ml/min Bilateral hip pain Osteoporosis Excessive thirst Hypothyroidism UTI (urinary tract infection) Urinary frequency ISIS (obstructive sleep apnea) Congestion of nasal sinus Bleeding nose Light headedness Dizziness Chronic headaches Depression Arthritis HTN (hypertension) Sleep apnea Anemia Diabetes 1.5, managed as type 2 Kidney disease High cholesterol Anxiety Bilateral knee pain Surgical History Surgical History S/P cubital tunnel release Left History of right cataract surgery History of left cataract surgery History of mandibular surgery History of sinus surgery History of carpal tunnel release of both wrists History of ureter stent Hx of bariatric surgery gastric sleeve Family History Family History Father Diabetes mellitus Hypertension Family history of arthritis Cerebrovascular accident Mother Heart valve replaced Other Trigger finger, left little finger Social History Social History Smoking status: Never smoker Alcohol intake: never Substance use: never Substance use type: does not use Do You Feel Safe in your Home?: Yes Lack of Transportation: No Lack of Food: Never True Current Housing: I Have Housing Concerned About Future Housing: No Difficulty Paying Gas/Electric Bills: No Difficulty Paying for Meds: No Currently Unemployed: No Education: Associate Degree Difficulty w/ Childcare or Family Care: No Living arrangements: with family Additional living arrangements comments: MOM & BROTHER Occupation/Education: other Additional occupation/education comments: disabled Gender identity (if verbalized by the patient): Female Sexual Orientation (if Verbalized by the Patient): Straight or Heterosexual Spiritual care concerns: No Exam Const: General: cooperative, healthy appearing and comfortable HENMT: Head: normal to inspection, No palpable skull fracture present and normocephalic Eyes: General: appearance normal, both eyes and all related structures Visual Jackson: normal visual jackson by confrontation Alignment and Position: alignment normal Neck: Neck: normal visual inspection, full ROM and no lymphadenopathy Chest: Chest palpation & inspection: normal inspection of the chest, normal palpation of entire chest wall and normal inspection of the chest Resp: Effort & Inspection: normal respiratory effort, able to speak in complete sentences and no cough Auscultation: clear to auscultation bilaterally Cardio: Jugular venous distension: no JVD Palpation: normal PMI Rate: regular rate Rhythm: regular rhythm Heart sounds: S1 normal heart sound present and S2 normal heart sound present GI: Inspection: normal to inspection GI Palp: No abdominal tenderness and No Abdominal aortic bruit present Auscultation: normal bowel sounds Back/Spine/Pelvis: Back: no CVA tenderness, No CVA tenderness, No mass and No erythema Skin: General skin exam: normal color, no rashes or lesions noted and elasticity normal Neuro: General: oriented to person, oriented to place, oriented to time, patient oriented x3, gait normal, tone normal, moves all extremities, Normal light touch and pain sensation, no meningeal signs, no focal motor deficits and CN's II-XI intact bilaterally Extrem: General: normal to inspection, full ROM and capillary refill normal Psych: Appearance: grossly normal and well kempt Mental Status: mental status grossly normal Course Vital Signs Vital signs: Vital Signs Temperature 36.4 C 12/27/24 20:31 Pulse Rate 88 12/27/24 20:31 Respiratory Rate 18 12/27/24 20:31 Blood Pressure 141/84 H 12/27/24 20:31 Pulse Oximetry 100 12/27/24 20:31 Oxygen Delivery Room Air 12/27/24 20:31 Temperature 36.4 C 12/27/24 20:31 Pulse Rate 88 12/27/24 20:31 Respiratory Rate 18 12/27/24 20:31 Blood Pressure 141/84 H 12/27/24 20:31 Pulse Oximetry 100 12/27/24 20:31 Oxygen Delivery Room Air 12/27/24 20:31 MDM - Headache MDM Narrative Medical decision making narrative: patient is a 59-year-old female with a headache that is unlike prior headaches. We will do a neurological workup at this time. We will include a CTA of the head to rule out aneurysm. Lab Data Attestation: I reviewed the patient's lab results. 12/27/24 22:32 12/27/24 22:32 Labs: Lab Results 12/27/24 Range/Units 22:32 WBC 11.7 H (4.8-10.8) K/mm3 RBC 4.27 (4.20-5.40) M/mm3 Hgb 12.3 (12.0-15.0) g/dL Hct 38.4 (35.0-49.0) % MCV 89.9 (78.0-102.0) fL MCH 28.8 (27.0-31.0) pg MCHC 32.0 (32-36) g/dL RDW 12.8 (11.6-14.4) % Plt Count 241 (150-420) K/mm3 MPV 9.7 (9.2-11.8) fl Immature Gran % (Auto) 0.3 H (0.0-0.0) % Neut % (Auto) 51.1 (50.0-70.0) % Lymph % (Auto) 35.1 (18.0-42.0) % Hutchinson % (Auto) 6.2 (2.0-11.0) % Eos % (Auto) 6.6 H (1.0-6.0) % Baso % (Auto) 0.7 (0.0-1.0) % Lymph # (Auto) 4.12 (1.10-4.50) K/mm3 Hutchinson # (Auto) 0.73 (0.10-0.90) K/mm3 Eos # (Auto) 0.78 H (0.02-0.50) K/mm3 Baso # (Auto) 0.08 (0.00-0.10) K/mm3 Abs Immat Gran (auto) 0.03 H (0.00-0.00) K/mm3 Absolute Neuts (auto) 5.99 (1.70-7.20) K/mm3 Absolute Nucleated RBC 0.00 (0.00-0.00) K/mm3 Nucleated RBC % 0.0 (0-0.0) % PT 10.0 (9.50-12.1) Seconds INR 0.9 APTT 27.9 (23.9-30.70) Sec Sodium 140 (137-145) mmol/L Potassium 3.9 (3.4-5.0) mmol/L Chloride 105 (98-107) mmol/L Carbon Dioxide 27 (22-30) mmol/L Anion Gap 8 (4-12) mmol/L BUN 38 H (7-17) mg/dL Creatinine 1.44 H (0.7-1.0) mg/dL Estim Creat Clear Calc 49 ml/min Estimated GFR 38 L (59 - ) Glucose 94 (65-110) mg/dL Calculated Osmolality 299 H (285-295) mOsm/kg Calcium 9.6 (8.4-10.2) mg/dL Magnesium 1.4 L (1.6-2.3) mg/dL Total Bilirubin 0.5 (0.2-1.3) mg/dL AST 37 H (14-36) U/L ALT 29 (6-35) U/L Alkaline Phosphatase 99 (38-126) U/L Total Protein 7.5 (6.3-8.2) g/dL Albumin 4.5 (3.5-5.1) g/dL Urine Color Light yellow (Yellow) Urine Appearance Clear (Clear) Urine pH 5.5 (5.0-8.0) Ur Specific Wynot 1.015 (1.010-1.020) Urine Protein Negative (Negative) Urine Glucose (UA) 3+ H (Negative) Urine Ketones Negative (Negative) Ur Blood (Man) Negative (Negative) Urine Nitrate Negative (Negative) Urine Bilirubin Negative (Negative) Urine Urobilinogen 0.2 (0.2-1.0) mg/dL Leukocyte Esterase Rfl Negative (Negative) CLAUDINE/UL Imaging Data Attestation: I personally reviewed and interpreted this imaging study as follows: Radiologist's impression: CT of the head was negative for acute process CTA of the head and neck was negative for acute process Discharge Plan Discharge Clinical Impression: Cephalgia Qualifiers: Headache type: unspecified Headache chronicity pattern: unspecified pattern Intractability: not intractable Qualified Code(s): R51.9 - Headache, unspecified CKD (chronic kidney disease) Qualifiers: Chronic kidney disease stage: unspecified stage Qualified Code(s): N18.9 - Chronic kidney disease, unspecified Patient Disposition: Home Condition: Stable Instructions: Acute Headache (ED) Additional Instructions: please follow-up with the primary doctor in the next week. I suggest seeing a neurologist if continued headaches and neck pains. Patient Language: Albanian Prescriptions: No Action amoxicillin-pot clavulanate [Augmentin] 500-125 mg tablet 1 tablet PO TID Qty: 30 0RF diphenoxylate-atropine [Lomotil] 2.5-0.025 mg tablet 2 tablet PO BID PRN (Reason: diarrhea) 90 Days Qty: 360 3RF Rx Instructions: take 1-2 tablets twice a day as needed for diarrhea. Ozempic 1 mg/dose (2 mg/1.5 mL) pen injector 1 mg subcut WEEKLY Patient Comments: PT TAKES ON MONDAY ascorbate calcium (vitamin C) 500 mg tablet 1 g PO DAILY amitriptyline 25 mg tablet 25 mg PO QHS 90 Days Qty: 90 3RF fluticasone propionate 50 mcg/actuation spray,suspension 1 spray intranasal DAILY 90 Days Qty: 48 3RF Rx Instructions: administer into each nostril (DME) Dexcom G7 Sensor Device See Rx Instructions .Route Qty: 4 3RF Rx Instructions: ACHS cetirizine 10 mg tablet 5 mg PO QHS PRN (Reason: allergy symptoms) Qty: 30 1RF Farxiga 10 mg tablet 10 mg PO DAILY losartan 50 mg tablet 50 mg PO DAILY Rx Instructions: Takes 1/2 tab propranolol 60 mg capsule,extended release 24 hr 40 mg PO DAILY Rx Instructions: Takes 1/2 tab per day - 20mg magnesium citrate,mag oxide 250 mg capsule PO ferrous sulfate 325 mg (65 mg iron) capsule, extended release 325 mg PO BID vitamin B complex Tablet Extended Release 1 tablet PO DAILY hydrocodone-acetaminophen 7.5-325 mg tablet 1 tablet PO Q8H PRN (Reason: pain) Qty: 90 0RF cyanocobalamin (vitamin B-12) 1,000 mcg/mL solution 100 mcg subcut MONTHLY Qty: 10 0RF levothyroxine 100 mcg tablet See Rx Instructions .ROUTE .COMPLEX Qty: 100 2RF Dose Instruction: TAKE 1 TABLET BY MOUTH DAILY Rx Instructions: TAKE 1 TABLET BY MOUTH DAILY ondansetron 4 mg tablet,disintegrating 4 mg PO Q8H PRN (Reason: nausea and vomiting) Qty: 14 0RF pravastatin 20 mg tablet See Rx Instructions .ROUTE .COMPLEX Qty: 100 0RF Dose Instruction: TAKE 1 TABLET BY MOUTH AT BEDTIME Rx Instructions: TAKE 1 TABLET BY MOUTH AT BEDTIME allopurinol 100 mg tablet See Rx Instructions .ROUTE .COMPLEX Qty: 100 0RF Dose Instruction: TAKE 1 TABLET BY MOUTH DAILY Rx Instructions: TAKE 1 TABLET BY MOUTH DAILY isosorbide mononitrate 30 mg tablet extended release 24 hr See Rx Instructions .ROUTE .COMPLEX Qty: 60 5RF Dose Instruction: TAKE 1 TABLET BY MOUTH DAILY Rx Instructions: TAKE 1 TABLET BY MOUTH DAILY Follow-up/Referrals: Virgilio Meehan DO [Primary Care Provider] - Time of Disposition: 00:11
--- OUTSIDE RECORDS SUMMARY | 2024-12-27 21:08 | XMS_ITS | Encounter Summary ---
Author Organization [facility] Address [facility] [place] [address] Care Team Providers Care Fixing Machine Operator Name Role Phone Alexis Thurman MD Unavailable [phone] Willian Mendoza MD Primary Care Provider [phone] Cee Liu APRN, PAINTER AND DECORATOR-C Unavailable Virgilio Meehan DO Primary Care Provider [phone] Mame Obsorn MD Unavailable [phone] Encounter Details Date Type Department Care Team (Late st Contact Info) Description 04/07/2021 Abstract [facility] [address] [place] [address] [place] [address] [place] [address] [id number] Social History Tobacco Use Types Packs/Day Years [...] 05/12/2025 1:30 PM CDT Office Visit [facility] [address] [place] [address] Cee Liu APRN, PAINTER AND DECORATOR-C [address] [phone] documented as of this encounter Visit Diagnoses Not on filedocumented in this encounter Care Teams Fixing Machine Operator Relationship Specialty Start Date End Date Willian Mendoza MD [address] [place] [address] PCP - General INTERNAL MEDICINE 09/14/18 09/07/22 Virgilio Meehan DO [address] [place] [address] PCP - General FAMILY PRACTICE 09/08/22 Alexis Thurman MD [address] [place] [address] [place] [employer] Salesperson CARDIOVASCULAR DISEASE 09/14/18 04/01/24 Cee Liu APRN, PAINTER AND DECORATOR-C [address] [phone] NURSE PRACTITIONER 05/27/22 Mame Osborn MD [address] [place] [address] INTERVENTIONAL CARDIOLOGY 05/10/24 documented as of this encounter
--- OUTSIDE RECORDS SUMMARY | 2024-12-27 21:08 | XMS_ITS | Encounter Summary ---
Author Organization [facility] Address [facility] [place] [address] Care Team Providers Care Keg Inspector Name Role Phone Alexis Thurman MD Unavailable [phone] Willian Mendoza MD Primary Care Provider [phone] Cee Liu APRN, MD SENIOR RESEARCH SCIENTIST-C Unavailable Virgilio Meehan DO Primary Care Provider [phone] Mame Osborn MD Unavailable [phone] Encounter Details Date Type Department Care Team (Late st Contact Info) Description 07/04/2022 Abstract [facility] [address] [place] [address] Alexis Thurman MD [address] [place] [phone] Social History Tobacco Use Types Packs/Day Years [...] Coronavirus/COVID-19? No / Unsure 06/29/2022 5:44 AM [facility] documented as of this encounter Plan of Treatment Upcoming Encounters Date Type Department Care Team (Late st Contact Info) Description 05/12/2025 1:30 PM CDT Office Visit [facility] [address] [place] [address] Cee Liu APRN, MD SENIOR RESEARCH SCIENTIST-C [address] [facility] [address] [place] [address] documented as of this encounter [...] on filedocumented in this encounter Care Teams Keg Inspector Relationship Specialty Start Date End Date Willian Mendoza MD [address] [place] [address] PCP - General INTERNAL MEDICINE 09/14/18 09/07/22 Virgilio Meehan DO [address] [place] [address] PCP - General FAMILY PRACTICE 09/08/22 Alexis Thurman MD [address] [place] [address] [place] [employer] Stone Positioner CARDIOVASCULAR DISEASE 09/14/18 04/01/24 Cee Liu APRN, MD SENIOR RESEARCH SCIENTIST-C [address] [facility] [address] [place] [address] NURSE PRACTITIONER 05/27/22 Mame Osborn MD [address] [place] [address] INTERVENTIONAL CARDIOLOGY 05/10/24 documented as of this encounter
--- OUTSIDE RECORDS SUMMARY | 2024-12-27 21:08 | XMS_ITS | Encounter Summary ---
Author Organization [facility] Address [facility] [place] [address] Care Team Providers Care Multilith Operator Name Role Phone Alexis Thurman MD Unavailable [phone] Cee Liu APRN, NP-C Unavailable [phone] Virgilio Meehan DO Primary Care Provider [phone] Mame Osborn MD Unavailable [phone] Encounter Details Date Type Department Care Team (Late Contact Info) Description 12/21/2022 Abstract [facility] [address] [place] [address] Naheed Arzola MD [address] [place] [address] Social History Tobacco Use Types Packs/Day Years [...] 05/12/2025 1:30 PM CDT Office Visit [facility] [address] [place] [address] Cee Liu APRN, SPORTS INFORMATION DIRECTOR-C [address] [phone] documented as of this encounter Visit Diagnoses Not on filedocumented in this encounter Care Teams Multilith Operator Relationship Specialty Start Date End Date Virgilio Meehan DO [address] [place] [address] PCP - General FAMILY PRACTICE 09/08/22 Alexis Thurman MD [address] [place] [address] [place] [employer] Engineer CARDIOVASCULAR DISEASE 09/14/18 04/01/24 Cee Liu APRN, SPORTS INFORMATION DIRECTOR-C [address] [address] NURSE PRACTITIONER 05/27/22 Mame Osborn MD [address] [place] [address] INTERVENTIONAL CARDIOLOGY 05/10/24 documented as of this encounter
--- OUTSIDE RECORDS SUMMARY | 2024-12-27 21:08 | XMS_ITS | Encounter Summary ---
Author Organization [facility] Address Counts include 234 beds at the [facility] [place] [address] Care Team Providers Care Radiology Physician Assistant Name Role Phone Cee Liu APRN, OIL RIG DRILLER-C Unavailable Virgilio Meehan DO Primary Care Provider [phone] Mame Osborn MD Unavailable [phone] Encounter Details Date Type Department Care Team (Late Contact Info) Description 11/12/2024 Abstract [facility] [address] [place] [address] Ella Witt MD [address] [place] [address] Social History Tobacco Use Types Packs/Day Years [...] Description 05/12/2025 1:30 PM CDT Office Visit [facility] [address] [place] [address] Cee Liu APRN, OIL RIG DRILLER-C [address] [facility] [address] [place] [address] documented as of this encounter Visit Diagnoses Not on filedocumented in this encounter Care Teams Radiology Physician Assistant Relationship Specialty Start Date End Date Virgilio Meehan DO [address] [place] [address] PCP - General FAMILY PRACTICE 09/08/22 Cee Liu, BARREL WASHER MACHINE, OIL RIG DRILLER-C [address] [facility] [address] [place] [address] NURSE PRACTITIONER 05/27/22 Mame Osborn MD [address] [place] [address] INTERVENTIONAL CARDIOLOGY 05/10/24 documented as of this encounter
--- OUTSIDE RECORDS SUMMARY | 2024-12-27 21:08 | XMS_ITS | Encounter Summary ---
Author Organization [facility] Address [facility] [place] [address] Care Team Providers Care Leather Shaver Name Role Phone Alexis Thurman MD Unavailable Cee Liu APRN, NP-C Unavailable Virgilio Meehan DO Primary Care Provider [phone] Mame Osborn MD Unavailable [phone] Encounter Details Date Type Department Care Team (Late Contact Info) Description 09/23/2022 [facility] [address] [place] [address] Alexis Thurman MD [address] [place] [address] Social History Tobacco Use Types [...] Coronavirus/COVID-19? No / Unsure 09/08/2022 8:48 AM GEOTHERMAL OPERATIONS ENGINEER documented as of this encounter Plan of Treatment Upcoming Encounters Date Type Department Care Team (Late Contact Info) Description 05/12/2025 1:30 PM CDT Office Visit [facility] [address] [place] [address] Cee Liu APRN, RIVER EXPEDITION GUIDE-C [address] [facility] [address] [place] [phone] documented as of this encounter Visit Diagnoses Not on filedocumented in this encounter Care Teams Leather Shaver Relationship Specialty Start Date End Date Virgilio Meehan DO [address] [place] [address] PCP - General FAMILY PRACTICE 09/08/22 Alexis Thurman MD [address] [place] [address] [place] Bush Hog Operator CARDIOVASCULAR DISEASE 09/14/18 04/01/24 Cee Liu APRN, RIVER EXPEDITION GUIDE-C [address] [facility] [address] [phone] NURSE PRACTITIONER 05/27/22 Mame Osborn MD [address] [place] [address] INTERVENTIONAL CARDIOLOGY 05/10/24 documented as of this encounter
--- OUTSIDE RECORDS SUMMARY | 2024-12-27 21:08 | XMS_ITS | Encounter Summary ---
Author Organization [facility] Address [facility] [place] [address] Care Team Providers Care Adult Care Manager Name Role Phone Alexis Thurman MD Unavailable [phone] Willian Mendoza MD Primary Care Provider [phone] Cee Liu APRN, LOG LOADER-C Unavailable [phone] Virgilio Meehan DO Primary Care Provider [phone] Mame Osborn MD Unavailable [phone] Encounter Details Date Type Department Care Team (Late st Contact Info) Description 10/12/2018 Abstract [facility] [address] [place] [address] Abstract, Doc [facility] Social History [...] 05/12/2025 1:30 PM CDT [facility] [address] [place] [address] Cee Liu APRN, LOG LOADER-C [address] [facility] [address] [place] [address] documented as of this encounter Visit Diagnoses Not on filedocumented in this encounter Care Teams Adult Care Manager Relationship Specialty Start Date End Date Willian Mendoza MD [address] [place] [address] PCP - General INTERNAL MEDICINE 09/14/18 09/07/22 Virgilio Meehan DO [address] [place] [address] PCP - General FAMILY PRACTICE 09/08/22 Alexis Thurman MD [address] [place] [phone] [place] Scroll Saw Operator CARDIOVASCULAR DISEASE 09/14/18 04/01/24 Cee Liu APRN, LOG LOADER-C [address] [facility] [address] [place] [address] NURSE PRACTITIONER 05/27/22 Mame Osborn MD [address] [place], [place] [address] INTERVENTIONAL CARDIOLOGY 05/10/24 documented as of this encounter
--- OUTSIDE RECORDS SUMMARY | 2024-12-27 21:08 | XMS_ITS | Encounter Summary ---
Author Organization [facility] Address [facility] [place] [address] Care Team Providers Care Bisque Kiln Placer Name Role Phone Alexis Thurman MD Unavailable [phone] Willian Mendoza MD Primary Care Provider [phone] Cee Liu APRN, ULTRASONIC SOLDERER-C Unavailable Virgilio Meehan DO Primary Care Provider [phone] Mame Osborn MD Unavailable [phone] Encounter Details Date Type Department Care Team (Late st Contact Info) Description 06/24/2022 Hospital Orders Only [facility]al [facility] Pre/Post [address] [place] [address] Alexis Thurman MD [address] [place] [address] Social History Tobacco Use Types [...] Description 05/12/2025 1:30 PM CDT Office Visit [facility] el [address] [place] [phone] Cee Liu APRN, ULTRASONIC SOLDERER-C [address] [facility] [address] [phone] documented as of this encounter Visit Diagnoses Not on filedocumented in this encounter Care Teams Bisque Kiln Placer Relationship Specialty Start Date End Date Willian Mendoza MD [address] [place] [address] PCP - General INTERNAL MEDICINE 09/14/18 09/07/22 Virgilio Meehan DO [address] [place] [address] PCP - General FAMILY PRACTICE 09/08/22 Alexis Thurman MD [address] [place] [phone] Palmyra Brimmer Blocker CARDIOVASCULAR DISEASE 09/14/18 04/01/24 Cee Liu APRN, ULTRASONIC SOLDERER-C [address] [phone] NURSE PRACTITIONER 05/27/22 Mame Osborn MD [address] [place], [place] [id number] INTERVENTIONAL CARDIOLOGY 05/10/24 documented as of this encounter
--- OUTSIDE RECORDS SUMMARY | 2024-12-27 21:08 | XMS_ITS | Continuity of Care Document ---
Author Organization [facility] Address [address] [facility] [address] [place] [address] Phone Care Team Providers Care Paper Reel Operator Name Role Phone Nilson Vaughan Unavailable Unavailable [...] Diagnoses Date Provider Providers Copied on Encounter [facility], [address], [place], [place], [id number], [place] tel:[phone] [facility] No Information Clement Devine. [address] [place], [address], [place]. tel:[phone] Referring Provider: Nilson Stewart, [address] [place], [address]. tel:[phone] [facility], [address], [place], [place], [id number], [place] tel:[phone] [facility] No Information Clement Devine. [address] [place], [address], [place]. tel:[phone] Referring Provider: Nilson Stewart, [address] [place], [address]. tel:[phone] [facility], [address], [place], [place], [id number], [place] tel:[phone] [facility] No Information Clement Devine. [address] [place], [address], [place]. tel:[phone] Referring Provider: Nilson Stewart, [address] [place], [address]. tel:[phone] [facility], [address], [place], [place], [id number], [place] tel:[phone] [facility] No Information Clement Devine. [address] [place], [address], [place]. [phone] Referring Provider: Nilson Stewart, [address] [place], [address]. tel:[phone] [facility], [address], [place], [place], [id number], [place] tel:[phone] [facility] No Information Clement Devine. [address] [place], [address], [place]. tel:[phone] [facility], [address], [place], [place], [id number], [place] tel:[phone] [facility] No Information Clement Devine. [address] [place], [address], [place]. tel:[phone] Referring Provider: Nilson Stewart, [address] [place], [address]. tel:[phone] Office/outpat ient Visit, [facility], [address], [place], [place], [id number], [place] tel:[phone] [facility] No Information Clement Devine. [address] [place], [address], [place]. tel:[phone] Family History Family Member Type Diagnosis Age At Onset No Information Payers Payer name Insurance type Covered green party ID Authorshiloha tiisaiah(s) Medicaid [facility] [id number] Social History Type Description Quantity Date Captured [...]
--- OUTSIDE RECORDS SUMMARY | 2024-12-27 21:08 | XMS_ITS | Referral Summary ---
Author Organization [address] Address [address] [place] [address] Care Team Providers Care Tree Pruner Name Role Phone Willian Mendoza MD Primary Care Provider [phone] Encounters Date Type Department Care Team Description 11/28/2024 Telephone [facility] [address] [address] Erika Mandel CLINICAL SERVICES DIRECTOR 11/21/2024 Telephone [facility] [address] [address] Anthony Castillo MD PA in CM Dexcom G7 sensor 10/18/2024 Telephone [facility] [address] [address] Anthony Castillo MD from Last [...] mouth 2 (two) times a day Active inpexvussxvc-Qr-u marva-minerals tablet Take 1 tablet by mouth [...] 1 tablet (100 mcg total) by mouth hydroelectric station chief before breakfast 90 tablet 3 024 Active [...] 03/17/2022 Assessment & Plan (08/07/2024 5:51 PM BARREL BRIDGE ASSEMBLER): Chronic, stable. Continue levothyroxine Update TFTs Assessment & Plan (08/10/2023 3:53 PM BARREL BRIDGE ASSEMBLER): Chronic, well-controlled Importance of taking levothyroxine on [...] 04/17/2018 Assessment & Plan (08/07/2024 5:51 PM BARREL BRIDGE ASSEMBLER): Chronic, stable Update lipid profile Continue statin therapy Assessment & Plan (08/10/2023 3:53 PM BARREL BRIDGE ASSEMBLER): Chronic, well-controlled Continue statin therapy with Pravachol Assessment & Plan (01/17/2023 1:59 PM CDT): Chronic, well controlled Low fat Low cholesterol diet Exercise Continue statin therapy with Pravachol Assessment & Plan (03/17/2022 9:47 AM CDT): Chronic problem. On statin therapy, no changes. Assessment & Plan (10/28/2021 1:21 PM BARREL BRIDGE ASSEMBLER): Chronic problem. On statin therapy, no changes. [...] Pravachol Assessment & Plan (09/27/2019 9:29 AM BARREL BRIDGE ASSEMBLER): LDL at goal. Trigs elevated. Continue statin [...] therapy Assessment & Plan (08/07/2018 1:59 PM BARREL BRIDGE ASSEMBLER): At goal on current medications. Assessment & [...] dicussed Assessment & Plan (09/27/2019 9:29 AM BARREL BRIDGE ASSEMBLER): Continues to do well with wt loss [...] adjusted. Assessment & Plan (08/07/2018 1:59 PM BARREL BRIDGE ASSEMBLER): Continues to gain weight. Little attempt at diet and exercise. Reviewed importance of avoiding juice, soda, high fat, high carb foods. Assessment & Plan (10/05/2017 2:49 PM BARREL BRIDGE ASSEMBLER): Diet and exercise were discussed. 1200 Calorie diet advised 45-60 min aerobic / resistance exercise most days of the week recommended. Bariatric surgery medically indicated Assessment & Plan (07/20/2017 4:17 PM BARREL BRIDGE ASSEMBLER): Importance of following diet and exercising discussed. [...] changes. Assessment & Plan (10/28/2021 1:21 PM BARREL BRIDGE ASSEMBLER): Controlled on current medications, no changes. Assessment [...] microalbumin Assessment & Plan (09/27/2019 9:29 AM BARREL BRIDGE ASSEMBLER): Controlled on current medications. Continue plan. Assessment & Plan (06/06/2019 2:49 PM CDT): Controlled on current medications. Continue plan. Assessment & Plan (11/01/2018 2:04 PM CDT): Goal blood pressure is less than 140/85 Low salt diet recommended Daily aerobic exercise Continue current meds, including ALYCE-I or ARB Assessment & Plan (08/07/2018 2:00 PM BARREL BRIDGE ASSEMBLER): Controlled on current medications. Assessment & Plan (04/17/2018 2:07 PM CDT): Goal blood pressure is less than 140/85 Low salt diet recommended Daily aerobic exercise Continue current meds, including ALYCE-I or ARB Assessment & Plan (10/05/2017 2:50 PM BARREL BRIDGE ASSEMBLER): Goal blood pressure is less than 140/85 Low salt diet recommended Daily aerobic exercise Continue current meds, including ALYCE-I or ARB Assessment & Plan (07/20/2017 4:18 PM BARREL BRIDGE ASSEMBLER): Controlled on current medications. Assessment & Plan (04/06/2017 4:28 PM CDT): At goal on current medications. Hyperlipidemia 09/19/2012 Overview (11/24/2016): HYPERLIPIDEMIA NEC/NOS Assessment & Plan (06/06/2019 2:49 PM CDT): Lipid panel ordered Assessment & Plan (07/20/2017 4:18 PM BARREL BRIDGE ASSEMBLER): Will check lipid panel Assessment & Plan (04/06/2017 4:28 PM CDT): Check labs and focus on low fat foods Furuncle of trunk 06/28/2012 Overview (11/23/2016): Carbuncle and furuncle of trunk Type 2 diabetes mellitus 06/28/2012 Overview (11/24/2016): DMII WO CMP UNCNTRLD Assessment & Plan (08/07/2024 5:50 PM BARREL BRIDGE ASSEMBLER): Chronic, stable Diet and exercise were emphasized Continue Farxiga and Ozempic Assessment & Plan (02/13/2024 4:29 PM CDT): Chronic, well-controlled. Continue Ozempic 2 mg weekly Farxiga 10 mg Importance of diet and exercise was discussed Assessment & Plan (08/10/2023 3:52 PM BARREL BRIDGE ASSEMBLER): Chronic, well-controlled, with some postprandial hyperglycemia Continue [...] Farxita Assessment & Plan (07/19/2022 1:34 PM BARREL BRIDGE ASSEMBLER): Hba1c was Lab Results Component Value Date [...] today. Assessment & Plan (10/28/2021 1:43 PM BARREL BRIDGE ASSEMBLER): Chronic problem, not at goal. Increase NL [...] breakfast Assessment & Plan (09/27/2019 9:31 AM BARREL BRIDGE ASSEMBLER): A1c increased to 7.8. Pattern acceptable during [...] goal hba1c is under 7.0 to prevent long term care social worker diabetes complications ( eye , kidney and [...] discussed. Assessment & Plan (08/07/2018 2:02 PM BARREL BRIDGE ASSEMBLER): A1c 8.1. Baseline BG reported at goal. [...] discussed. Assessment & Plan (10/05/2017 2:51 PM BARREL BRIDGE ASSEMBLER): Hba1c was . 9.6 . today, indicating [...] discussed. Assessment & Plan (07/20/2017 4:17 PM BARREL BRIDGE ASSEMBLER): A1c improved 8.7, ~ 2%. Mostly from [...] on file Legal Sex Female 10:22 AM BARREL BRIDGE ASSEMBLER Gender Identity Not on file Sexual Orientation Straight 08/07/2024 2: 11 PM BARREL BRIDGE ASSEMBLER Last Filed Vital Signs Vital Sign Reading Time Taken Comments Blood Pressure 100/68 08/07/2024 2:37 PM BARREL BRIDGE ASSEMBLER Pulse 66 08/07/2024 2:37 PM BARREL BRIDGE ASSEMBLER Temperature - - Respiratory Rate 17 08/07/2024 2:37 PM BARREL BRIDGE ASSEMBLER Oxygen Saturation - - Inhaled Oxygen Concentration - - Weight 109 kg (240 lb 6.4 oz) 08/07/2024 2:37 PM BARREL BRIDGE ASSEMBLER Height 170.2 cm (5' 7 ) 08/07/2024 2:37 PM BARREL BRIDGE ASSEMBLER Body Mass Index 37.65 08/07/2024 2:37 PM BARREL BRIDGE ASSEMBLER Plan of Treatment Not on file Procedures Procedure Name Priority Date/Time Associated Diagnosis Comments EGFR Routine 08/07/2024 3:23 PM BARREL BRIDGE ASSEMBLER Type 2 diabetes mellitus with hyperglycemia, with long-term current use of insulin (HCC) POCT HEMOGLOBIN A1C Routine 08/07/2024 2 :38 PM BARREL BRIDGE ASSEMBLER Type 2 diabetes mellitus with hyperglycemia, with long-term current use of insulin (HCC) HM DIABETES EYE EXAM Routine 10/11/2023 9:29 AM BARREL BRIDGE ASSEMBLER ALBUMIN CREATININE RATIO, URINE Routine 08/28/2023 7:38 AM BARREL BRIDGE ASSEMBLER LIPID PANEL Routine 08/10/2023 1:53 PM BARREL BRIDGE ASSEMBLER Hyperlipidemia associated with type 2 diabetes mellitus (HCC) from Last 3 Months or Most Recently Relevant to Health Maintenance Results * (ABNORMAL) eGFR (08/07/2024 3:23 PM BARREL BRIDGE ASSEMBLER) eGFR 35(L) >=60 mL/min/1. 73 m2 Comment: [...] last reviewed 2021. Blood 08/07/2024 3:23 PM BARREL BRIDGE ASSEMBLER 08/07/2024 6:55 PM BARREL BRIDGE ASSEMBLER us Anthony Castillo MD LAB BLOOD ORDERABLES Final Resul t [facility] [id number] Department [place] [address] * (ABNORMAL) POCT hemoglobin A1c (08/07/2024 2:38 PM BARREL BRIDGE ASSEMBLER) Hemoglobin A1C, POC 7.1 4.0 - 5.6 % Comment:None Capillary blood 08/07/2024 2 :38 PM BARREL BRIDGE ASSEMBLER Result [facility] Anthony Castillo MD POINT OF CARE TEST ORDERABLES Fi nal Result * (ABNORMAL) DIABETES EYE EXAM (10/11/2023 9:29 AM BARREL BRIDGE ASSEMBLER) Isis Salgado MD HEALTH MAINTENANCE Final Result * (ABNORMAL) Albumin Creatinine Ratio, Urine (08/28/2023 7:38 AM BARREL BRIDGE ASSEMBLER) SCRIBED Creatinine, Urine 75.44 40 - 278 EXTERNAL LAB SCRIBED Microalbumin 13.4(A) 0.0 - 11.9 EXTERNAL LAB SCRIBED Microalb/Creat Ratio 0.18 0 - 0.20 EXTERNAL LAB Urine 08/28/2023 7:38 AM BARREL BRIDGE ASSEMBLER us Historical Provider LAB URINE ORDERABLES Edit ed Result - Final EXTERNAL LAB * (ABNORMAL) Lipid panel (08/10/2023 1:53 PM BARREL BRIDGE ASSEMBLER) Cholesterol 164 30 - 199 mg/dL [facility] [...] 3 [facility] HORNER Blood 08/10/2023 1:53 PM BARREL BRIDGE ASSEMBLER 08/10/2023 7:31 PM BARREL BRIDGE ASSEMBLER us Anthony Castillo MD LAB BLOOD ORDERABLES Final Resul t [facility] [id number] Department [place] [address] from Last 3 Months or Most Recently Relevant to Health Maintenance Insurance IDPA [facility]IC[facility] ADVANTAGE [facility] ADVANTAGE [facility] Care Teams Tree Pruner Relationship Specialty Start Date End Date Willian Mendoza MD [facility] - General 02/18/16
--- OUTSIDE RECORDS SUMMARY | 2024-12-27 21:09 | XMS_ITS | Clinical Summary ---
Author Organization [facility] Address [address] [place] [address] Care Team Providers Care Hospice Clinical Manager Name Role Phone Willian Mendoza MD Primary Care Provider [phone] Allergies Active Allergy Reactions Criticality Noted Date [...] mouth 2 (two) times a day Active dtoysoyiozaw-Ul-e marva-minerals tablet Take 1 tablet by mouth [...] hyperglycemia, with long-term current use of insulin ([facility]) USE FOR TESTING FOUR TIMES A DAY DIRECTED 400 each 3 022 Active pen needle, diabetic (TRUEplus Pen Needle) 31 gauge x 3/16 needle Use to inject insulin up to 5 times daily 450 each 2 022 Active alcohol swabs (BD Alcohol Swabs) pads, medicatedIndicati ons:Type 2 diabetes mellitus with hyperglycemia, with long-term current use of insulin ([facility]) USE DIRECTED 4 TIMES DAILY [...] 1 tablet (100 mcg total) by mouth family caseworker before breakfast 90 tablet 3 024 Active [...] 03/17/2022 Assessment & Plan (08/07/2024 5:51 PM WOODYARD CRANE OPERATOR): Chronic, stable. Continue levothyroxine Update TFTs Assessment & Plan (08/10/2023 3:53 PM WOODYARD CRANE OPERATOR): Chronic, well-controlled Importance of taking levothyroxine [...] 04/17/2018 Assessment & Plan (08/07/2024 5:51 PM WOODYARD CRANE OPERATOR): Chronic, stable Update lipid profile Continue statin therapy Assessment & Plan (08/10/2023 3:53 PM WOODYARD CRANE OPERATOR): Chronic, well-controlled Continue statin therapy with Pravachol Assessment & Plan (01/17/2023 1:59 PM CDT): Chronic, well controlled Low fat Low cholesterol diet Exercise Continue statin therapy with Pravachol Assessment & Plan (03/17/2022 9:47 AM CDT): Chronic problem. On statin therapy, no changes. Assessment & Plan (10/28/2021 1:21 PM WOODYARD CRANE OPERATOR): Chronic problem. On statin therapy, no [...] Pravachol Assessment & Plan (09/27/2019 9:29 AM WOODYARD CRANE OPERATOR): LDL at goal. Trigs elevated. Continue [...] therapy Assessment & Plan (08/07/2018 1:59 PM WOODYARD CRANE OPERATOR): At goal on current medications. Assessment [...] dicussed Assessment & Plan (09/27/2019 9:29 AM WOODYARD CRANE OPERATOR): Continues to do well with wt [...] adjusted. Assessment & Plan (08/07/2018 1:59 PM WOODYARD CRANE OPERATOR): Continues to gain weight. Little attempt at diet and exercise. Reviewed importance of avoiding juice, soda, high fat, high carb foods. Assessment & Plan (10/05/2017 2:49 PM WOODYARD CRANE OPERATOR): Diet and exercise were discussed. 1200 Calorie diet advised 45-60 min aerobic / resistance exercise most days of the week recommended. Bariatric surgery medically indicated Assessment & Plan (07/20/2017 4:17 PM WOODYARD CRANE OPERATOR): Importance of following diet and exercising [...] changes. Assessment & Plan (10/28/2021 1:21 PM WOODYARD CRANE OPERATOR): Controlled on current medications, no changes. [...] microalbumin Assessment & Plan (09/27/2019 9:29 AM WOODYARD CRANE OPERATOR): Controlled on current medications. Continue plan. Assessment & Plan (06/06/2019 2:49 PM CDT): Controlled on current medications. Continue plan. Assessment & Plan (11/01/2018 2:04 PM CDT): Goal blood pressure is less than 140/85 Low salt diet recommended Daily aerobic exercise Continue current meds, including ALYCE-I or ARB Assessment & Plan (08/07/2018 2:00 PM WOODYARD CRANE OPERATOR): Controlled on current medications. Assessment & Plan (04/17/2018 2:07 PM CDT): Goal blood pressure is less than 140/85 Low salt diet recommended Daily aerobic exercise Continue current meds, including ALYCE-I or ARB Assessment & Plan (10/05/2017 2:50 PM WOODYARD CRANE OPERATOR): Goal blood pressure is less than 140/85 Low salt diet recommended Daily aerobic exercise Continue current meds, including ALYCE-I or ARB Assessment & Plan (07/20/2017 4:18 PM WOODYARD CRANE OPERATOR): Controlled on current medications. Assessment & Plan (04/06/2017 4:28 PM CDT): At goal on current medications. Hyperlipidemia 09/19/2012 Overview (11/24/2016): HYPERLIPIDEMIA NEC/NOS Assessment & Plan (06/06/2019 2:49 PM CDT): Lipid panel ordered Assessment & Plan (07/20/2017 4:18 PM WOODYARD CRANE OPERATOR): Will check lipid panel Assessment & Plan (04/06/2017 4:28 PM CDT): Check labs and focus on low fat foods Furuncle of trunk 06/28/2012 Overview (11/23/2016): Carbuncle and furuncle of trunk Type 2 diabetes mellitus 06/28/2012 Overview (11/24/2016): DMII WO CMP UNCNTRLD Assessment & Plan (08/07/2024 5:50 PM WOODYARD CRANE OPERATOR): Chronic, stable Diet and exercise were emphasized Continue Farxiga and Ozempic Assessment & Plan (02/13/2024 4:29 PM CDT): Chronic, well-controlled. Continue Ozempic 2 mg weekly Farxiga 10 mg Importance of diet and exercise was discussed Assessment & Plan (08/10/2023 3:52 PM WOODYARD CRANE OPERATOR): Chronic, well-controlled, with some postprandial hyperglycemia [...] Farxita Assessment & Plan (07/19/2022 1:34 PM WOODYARD CRANE OPERATOR): Hba1c was Lab Results Component Value [...] today. Assessment & Plan (10/28/2021 1:43 PM WOODYARD CRANE OPERATOR): Chronic problem, not at goal. Increase [...] breakfast Assessment & Plan (09/27/2019 9:31 AM WOODYARD CRANE OPERATOR): A1c increased to 7.8. Pattern acceptable [...] discussed. Assessment & Plan (08/07/2018 2:02 PM WOODYARD CRANE OPERATOR): A1c 8.1. Baseline BG reported at [...] discussed. Assessment & Plan (10/05/2017 2:51 PM WOODYARD CRANE OPERATOR): Hba1c was . 9.6 . today, [...] discussed. Assessment & Plan (07/20/2017 4:17 PM WOODYARD CRANE OPERATOR): A1c improved 8.7, ~ 2%. Mostly [...] Team Description 11/28/2024 Telephone [facility] [address] [address] Erika Mandel CITRUS PEELER 11/21/2024 Telephone [facility] [address] [address] Anthony Castillo MD PA in CMM Dexcom G7 sensor 10/18/2024 [facility] [address] [address] Anthony Castillo MD from Last [...] on file Legal Sex Female 10:22 AM WOODYARD CRANE OPERATOR Gender Identity Not on file Sexual Orientation Straight 08/07/2024 2: 11 PM WOODYARD CRANE OPERATOR Obstetrics History Last Filed Vital Signs Vital Sign Reading Time Taken Comments Blood Pressure 100/68 08/07/2024 2:37 PM WOODYARD CRANE OPERATOR Pulse 66 08/07/2024 2:37 PM WOODYARD CRANE OPERATOR Temperature - - Respiratory Rate 17 08/07/2024 2:37 PM WOODYARD CRANE OPERATOR Oxygen Saturation - - Inhaled Oxygen Concentration - - Weight 109 kg (240 lb 6.4 oz) 08/07/2024 2:37 PM WOODYARD CRANE OPERATOR Height 170.2 cm (5' 7 ) 08/07/2024 2:37 PM WOODYARD CRANE OPERATOR Body Mass Index 37.65 08/07/2024 2:37 PM WOODYARD CRANE OPERATOR Plan of Treatment Health Maintenance Due [...] Diagnosis Comments EGFR Routine 08/07/2024 3:23 PM WOODYARD CRANE OPERATOR Type 2 diabetes mellitus with hyperglycemia, with long-term current use of insulin (HCC) POCT HEMOGLOBIN A1C Routine 08/07/2024 2 :38 PM WOODYARD CRANE OPERATOR Type 2 diabetes mellitus with hyperglycemia, with long-term current use of insulin (HCC) HM DIABETES EYE EXAM Routine 10/11/2023 9:29 AM WOODYARD CRANE OPERATOR ALBUMIN CREATININE RATIO, URINE Routine 08/28/2023 7:38 AM WOODYARD CRANE OPERATOR LIPID PANEL Routine 08/10/2023 1:53 PM WOODYARD CRANE OPERATOR Hyperlipidemia associated with type 2 diabetes mellitus (HCC) from Last 3 Months or Most Recently Relevant to Health Maintenance Results * (ABNORMAL) eGFR (08/07/2024 3:23 PM WOODYARD CRANE OPERATOR) eGFR 35(L) >=60 mL/min/1. 73 m2 [...] last reviewed 2021. Blood 08/07/2024 3:23 PM WOODYARD CRANE OPERATOR 08/07/2024 6:55 PM WOODYARD CRANE OPERATOR us Anthony Castillo MD LAB BLOOD ORDERABLES Final Resul t [facility] [id number] [place] [address] * (ABNORMAL) POCT hemoglobin A1c (08/07/2024 2:38 PM WOODYARD CRANE OPERATOR) Hemoglobin A1C, POC 7.1 4.0 - 5.6 % Comment:None Capillary blood 08/07/2024 2 :38 PM WOODYARD CRANE OPERATOR Result [facility] us Anthony Castillo MD POINT OF CARE TEST ORDERABLES Fi nal Result * (ABNORMAL) HM DIABETES EYE EXAM (10/11/2023 9:29 AM WOODYARD CRANE OPERATOR) Isis Salgado MD HEALTH MAINTENANCE Final Result * (ABNORMAL) Albumin Creatinine Ratio, Urine (08/28/2023 7:38 AM WOODYARD CRANE OPERATOR) SCRIBED Creatinine, Urine 75.44 40 - 278 EXTERNAL LAB SCRIBED Microalbumin 13.4(A) 0.0 - 11.9 EXTERNAL LAB SCRIBED Microalb/Creat Ratio 0.18 0 - 0.20 EXTERNAL LAB Urine 08/28/2023 7:38 AM WOODYARD CRANE OPERATOR us Historical Provider LAB URINE ORDERABLES Edit ed Result - Final EXTERNAL LAB * (ABNORMAL) Lipid panel (08/10/2023 1:53 PM WOODYARD CRANE OPERATOR) Cholesterol 164 30 - 199 mg/dL [...] 3 [facility]ORNER Blood 08/10/2023 1:53 PM WOODYARD CRANE OPERATOR 08/10/2023 7:31 PM WOODYARD CRANE OPERATOR us Anthony Castillo MD LAB BLOOD ORDERABLES Final Resul t [facility] [id number] [address] [place] [address] from Last 3 Months or Most Recently Relevant to Health Maintenance Insurance IDPA [facility] MEDICARE ADVANTAGE [facility] MEDICARE ADVANTAGE IDPA Care Teams Hospice Clinical Manager Relationship Specialty Start Date End Date Willian Mendoza MD PCP - General 02/18/16
--- OUTSIDE RECORDS SUMMARY | 2024-12-27 21:09 | XMS_ITS | Clinical Summary ---
Author Organization [facility] Address [facility] [place] [address] Care Team Providers Care Onyx Chip Terrazzo Worker Name Role Phone Cee Liu APRN LUMBER MOVER-C Unavailable [phone] Virgilio Meehan DO Primary Care Provider [phone] Mame Osborn MD Unavailable [phone] Allergies Active Allergy Reactions Criticality Noted Date Comments Amoxicillin-Pot Clavulanate Diarrhea 05/27/2022 Metformin Other (see comment) 05/27/2022 Renal function impairment Pantoprazole Other (see comment) 05/27/2022 Hypomagnesemia Medications CPAP DME DEVICE CPAPCPAP [id number] via IV [id number] Morrissey 8 Active pravastatin (PRAVACHOL) 20 MG [...] mouth 2 (two) times daily. Active CREON 39210-441490 units capsule Take 2 capsules (72,000 units [...] check lipid panel Hypertension associated with diabetes ([facility]) 09/19/2012 Overview (10/22/2018): Overview: Unspecified essential hypertension Last Assessment & Plan: Controlled on current medications. Type 2 diabetes mellitus ([facility]) 06/28 Overview (10/22/2018): Overview: DMII WO CMP [...] Type Department Care Team Description 11/12/2024 Telephone [facility] [address] [place] [id number] Ella Witt MD Results 11/12/2024 Orders Only [facility], [facility] [address] [place] [address] Ella Witt MD 11/12/2024 Abstract [facility], [facility] [address] [place] [address] Ella Witt MD 11/04/2024 11:15 AM CDT - 11/04/2024 11:59 PM CDT Hospital Encounter [facility] [address] [place] [address] Ella Witt MD Discharge Disposition: Home or Self Care (Routine Discharge) 11/04/2024 10:30 AM CDT Office Visit [facility] [address] [place], [place] [address] [address] Gonzalez Wilson MD Bhatti, Vikrampal S, MD CKD Follow-up (Pt is having some low back pain for the past 3 or 4 days.) 11/04/2024 Scan [facility] [address] [place] [id number] Scanned, Doc Cikda 11/04/2024 Orders Only [facility] [place] [address] Ella Witt MD 11/04/2024 Travel 10/29/2024 Scan [facility], [facility] [address] [place] [id number] Scanned, Doc Cikda Lab (SCAN) from Last [...] 36.2 C (97.2 F) 06/29/2022 6:18 AM INDUSTRIAL MAINTENANCE INSTRUCTOR Respiratory Rate 16 05/10/2024 12:4 0 PM [...] [facility] eld [address] [place] [phone] Cee Liu, CALCINER OPERATOR, LUMBER MOVER-C [address] [facility] [address] [place] [address] Health Maintenance Due Date Last [...] this topic Medical Devices Implanted Type Area Silk Crepe Machine Operator Device Identifier Shelf Expiration Date Model / Serial / Lot Stent Ureteral [place] Sci Contour 6fr X 26cm - [id number] Implanted:Qty : 1 on 06/28/2021 by Ryan Vinson MD at [facility] Stent Right: Ureter Spare Change Payments MASOOD [id number] 04/12/2024 [id number] / / [id number] Procedures Procedure Name Priority Date/Time Associated Diagnosis Comments HC URINALYSIS AUTO W/MICRO Routine 11/04/2024 11:24 AM CDT Chronic kidney disease, stage 3b (CMS/HCC) OUTSIDE LAB (SCAN ORDER) Routine 10/29/2024 LIPID PANEL Routine 07/23/2009 12:00 AM INDUSTRIAL MAINTENANCE INSTRUCTOR from Last 3 Months or Most Recently Relevant to Health Maintenance Results * (ABNORMAL) URINALYSIS (11/04/2024 11:24 AM CDT) COLOR (U) YELLOW 11/04/2024 11:52 AM CDT [facility] TRANSPARENCY CLEAR 11/04/2024 11:52 AM CDT [facility] SPECIFIC GRAVITY (U) 1.020 1.000 - 1.025 11/04/2024 11:52 AM CDT [facility] U PH 5.5 5.0 - 8.0 11/04/2024 11:52 AM CDT [facility] LEUKOCYTES (U) TRACE(A) NEGATIVE 11/04/2024 11:52 AM CDT [facility] NITRITES NEGATIVE NEGATIVE 11/04/2024 11:52 AM CDT [facility] PROTEIN RANDOM (U) NEGATIVE NEGATIVE 11/04/2024 11:52 AM CDT [facility] GLUCOSE (U) 2+(A) NEGATIVE 11/04/2024 11:52 AM CDT [facility] KETONES MG/DL (U) NEGATIVE NEGATIVE 11/04/2024 11:52 AM CDT [facility] UROBILINOGEN 0.2 <1.0 EU/DL 11/04/2024 11:52 AM CDT [facility] BILIRUBIN (U) NEGATIVE NEGATIVE 11/04/2024 11:52 AM CDT [facility] BLOOD (U) NEGATIVE NEGATIVE 11/04/2024 11:52 AM CDT [facility] WBC/HPF 0-5 0 - 5 /HPF 11/04/2024 11:52 AM CDT [facility] RBC/HPF 0-5 0 - 5 /HPF 11/04/2024 11:52 AM CDT [facility] EPI/LPF FEW /LPF 11/04/2024 11:52 AM CDT [facility] BACTERIA (U) 1+ /HPF 11/04/2024 11:52 AM CDT [facility] URINE SPECIMEN OBTAINED BY CLEAN CATCH PROCEDURE / Unknown 11/04/2024 11:24 AM CDT Ella Witt MD URINE ORDERABLES Final Res ult [facility] [place] [address], * OUTSIDE LAB (10/29/2024) 10/29/2024 us Doc Cikda Scanned SCANNING Final Result [facility] ONBASE * LIPID PANEL (07/23/2009 12:00 AM INDUSTRIAL MAINTENANCE INSTRUCTOR) TRIGLYCERIDES 132 0 - 150 mg/dl MEDINFORMATIX TO EPIC CONVERSION CHOLESTEROL 180 0 - 200 mg/dl MEDINFORMAT[employer] TO EPIC CONVERSION HDL 61 40 - 59 mg/dl MEDINFORMAT[employer] TO EPIC CONVERSION LDL CONVERSION 93 0 - 100 mg/dl MEDINFORMAT[employer] TO EPIC CONVERSION CHOL/HDL RATIO 3.0 <4.0 (Calc) MEDINFORMATIX TO EPIC CONVERSION 07/23/2009 07/23/2009 Narrative MEDINFORMATIX TO EPIC CONVERSION - 07/23/2009 1:31 PM INDUSTRIAL MAINTENANCE INSTRUCTOR Reviewed by ANGELA Jul 23 2009 1:33:00:000PM us Generic Conversion Md [facility] Final R esult MEDINFORMATIX TO EPIC CONVERSION from Last 3 Months or Most Recently Relevant to Health Maintenance Insurance MEDICAID DEPT OF [address] MEDICAID [facility] MEDICAID Advance Directives * Full Code (Latest Code Status on File) Date Activated Date Inactivated Comments 06/29/2022 9:52 AM 06/29/2022 1:43 PM Care Teams Onyx Chip Terrazzo Worker Relationship Specialty Start Date End Date Virgilio Meehan DO [address] [place] [id number] PCP - General FAMILY PRACTICE 09/08/22 Cee Liu APRN, LUMBER MOVER-C [address] [place] [address] [address] [place] [address] NURSE PRACTITIONER 05/27/22 Mame Osborn MD [address] [place] [address] INTERVENTIONAL CARDIOLOGY 05/10/24
--- OUTSIDE RECORDS SUMMARY | 2024-12-27 21:09 | XMS_ITS | Encounter Summary ---
Author Organization [facility] Address [facility] [place] [address] Care Team Providers Care Business Control Specialist Name Role Phone Alexis Thurman MD Unavailable [phone] Willian Mendoza MD Primary Care Provider [phone] Cee Liu APRN, CANDY PACKER-C Unavailable Virgilio Meehan DO Primary Care Provider [phone] Mame Osborn MD Unavailable [phone] Encounter Details Date Type Department Care Team (Late st Contact Info) Description 11/04/2017 Abstract [facility] CONVERSION [address] [place] [address] , Generic ConversionMD Social History Tobacco Use [...] Description 05/12/2025 1:30 PM CDT Office Visit [facility] eld [address] [place] [address] Cee Liu, ANGEL, CANDY PACKER-C [address] [facility] [address] [place] [phone] documented as of this encounter Visit Diagnoses Not on filedocumented in this encounter Care Teams Business Control Specialist Relationship Specialty Start Date End Date Willian Mendoza MD [address] [place] [address] PCP - General INTERNAL MEDICINE 09/14/18 09/07/22 Virgilio Meehan DO [address] [place] [address] PCP - General FAMILY PRACTICE 09/08/22 Alexis Thurman MD [address] [place] [address] Callahan Recruitment Director CARDIOVASCULAR DISEASE 09/14/18 04/01/24 Cee Liu, PACU NURSE, CANDY PACKER-C [address] [facility] [address] [place] [address] NURSE PRACTITIONER 05/27/22 Mame Osborn MD [address] [place] [address] INTERVENTIONAL CARDIOLOGY 05/10/24 documented as of this encounter
[2024-12-27 22:36] LABS: Basophils Absolute Auto 0.08 K/mm3 (0.00-0.10); Basophils Percent Auto 0.7 % (0.0-1.0); Eosinophils Absolute Auto 0.78 K/mm3 (0.02-0.50); Eosinophils Percent Auto 6.6 % (1.0-6.0); Hematocrit 38.4 % (35.0-49.0); Hemoglobin 12.3 g/dL (12.0-15.0); Immature Granulocyte Absolute 0.03 K/mm3 (0.00-0.00); Immature Granulocyte Percent A 0.3 % (0.0-0.0); Lymphocytes Absolute Auto 4.12 K/mm3 (1.10-4.50); Lymphocytes Percent Auto 35.1 % (18.0-42.0); Mean Corpuscular Hemoglobin 28.8 pg (27.0-31.0); Mean Corpuscular Volume 89.9 fL (78.0-102.0); Mean Platelet Volume 9.7 fl (9.2-11.8); Monocytes Absolute Auto 0.73 K/mm3 (0.10-0.90); Monocytes Percent Auto 6.2 % (2.0-11.0); Neutrophils Absolute Auto 5.99 K/mm3 (1.70-7.20); Neutrophils Percent Auto 51.1 % (50.0-70.0); Platelet Count Result 241 K/mm3 (150-420); Red Blood Count 4.27 M/mm3 (4.20-5.40); Red Cell Distribution Width 12.8 % (11.6-14.4); White Blood Count 11.7 K/mm3 (4.8-10.8)
[2024-12-27 22:37] LABS: Add Urine Microscopic? NO; Appearance Urine Clear (Clear); Bilirubin Urine Negative (Negative); Blood Urine Negative (Negative); Color Urine Light Yellow (Yellow); Glucose Urine UA 3+ (Negative); Ketones Urine Negative (Negative); Leukocyte Esterase Ur Negative LEU/UL (Negative); Nitrate Urine Negative (Negative); Protein Urine Negative (Negative); Specific Grav Ur 1.015 (1.010-1.020); Urobilinogen Urine 0.2 mg/dL (0.2-1.0); pH Urine 5.5 (5.0-8.0)
[2024-12-27 22:45] LABS: Alanine Aminotransferase 29 U/L (6-35); Albumin Level 4.5 g/dL (3.5-5.1); Alkaline Phosphatase 99 U/L (38-126); Anion Gap 8 mmol/L (4-12); Aspartate Amino Transferase 37 U/L (14-36); Bilirubin,Total 0.5 mg/dL (0.2-1.3); Blood Urea Nitrogen 38 mg/dL (7-17); Calcium 9.6 mg/dL (8.4-10.2); Carbon Dioxide 27 mmol/L (22-30); Chloride 105 mmol/L (98-107); Estimated CRCL calculation 49 ml/min; Estimated Glomerular Filt Rate 38; Glucose 94 mg/dL (65-110); Magnesium 1.4 mg/dL (1.6-2.3); Osmolality Calculated 299 mOsm/kg (285-295); Potassium 3.9 mmol/L (3.4-5.0); Sodium 140 mmol/L (137-145); Total Protein 7.5 g/dL (6.3-8.2)
[2024-12-27 22:49] LABS: INR 0.9; Partial Thromboplastin Time 27.9 Sec (23.9-30.70)
[2024-12-28 00:19] VITALS: BP 137/78; PULSE 78; RESP 18; O2SAT 98
== END 2024-12-28 00:19 | disposition home or self-care (01) ==
PROVIDERS: Emergency Provider Emergency Medicine; PCP Family Medicine
DX: R51.9 Headache, unspecified (principal); E03.9 Hypothyroidism, unspecified; I12.9 Hypertensive chronic kidney disease with stage 1 through stage 4 chronic kidney disease, or unspecified chronic kidney disease; E13.22 Other specified diabetes mellitus with diabetic chronic kidney disease; N18.30 Chronic kidney disease, stage 3 unspecified
CPT/HCPCS: 36415; 70450; 70496; 70498; 80053; 81003; 83735; 85025; 85610; 85730; 99284; Q9967

== ENCOUNTER 2024-12-30 07:57 | Outpatient (CLI) | payer MEDICARE, MEDICAID, SELFPAY ==
--- OUTSIDE RECORDS SUMMARY | 2024-12-30 08:03 | XMS_ITS | Referral Summary ---
Author Organization [address] Address [address] [place] [phone] Care Team Providers Care Flight Attendant Name Role Phone Willian Mendoza MD Primary Care Provider [phone] Encounters Date Type Department Care Team Description 11/28/2024 Telephone [facility] [address] [address] Erika Mandel PLUG MACHINE OPERATOR 11/21/2024 Telephone [facility] [address] [address] Anthony Castillo MD PA in CM Dexcom G7 sensor 10/18/2024 Telephone [facility] [address] [address] Anthony Castillo MD from Last [...] mouth 2 (two) times a day Active xacrnxwejumr-Pr-b marva-minerals tablet Take 1 tablet by mouth [...] 1 tablet (100 mcg total) by mouth energy project engineer before breakfast 90 tablet 3 024 Active [...] 03/17/2022 Assessment & Plan (08/07/2024 5:51 PM ANKLE PATCH MOLDER): Chronic, stable. Continue levothyroxine Update TFTs Assessment & Plan (08/10/2023 3:53 PM ANKLE PATCH MOLDER): Chronic, well-controlled Importance of taking levothyroxine on [...] 04/17/2018 Assessment & Plan (08/07/2024 5:51 PM ANKLE PATCH MOLDER): Chronic, stable Update lipid profile Continue statin therapy Assessment & Plan (08/10/2023 3:53 PM ANKLE PATCH MOLDER): Chronic, well-controlled Continue statin therapy with Pravachol Assessment & Plan (01/17/2023 1:59 PM CDT): Chronic, well controlled Low fat Low cholesterol diet Exercise Continue statin therapy with Pravachol Assessment & Plan (03/17/2022 9:47 AM CDT): Chronic problem. On statin therapy, no changes. Assessment & Plan (10/28/2021 1:21 PM ANKLE PATCH MOLDER): Chronic problem. On statin therapy, no changes. [...] Pravachol Assessment & Plan (09/27/2019 9:29 AM ANKLE PATCH MOLDER): LDL at goal. Trigs elevated. Continue statin [...] therapy Assessment & Plan (08/07/2018 1:59 PM ANKLE PATCH MOLDER): At goal on current medications. Assessment & [...] dicussed Assessment & Plan (09/27/2019 9:29 AM ANKLE PATCH MOLDER): Continues to do well with wt loss [...] adjusted. Assessment & Plan (08/07/2018 1:59 PM ANKLE PATCH MOLDER): Continues to gain weight. Little attempt at diet and exercise. Reviewed importance of avoiding juice, soda, high fat, high carb foods. Assessment & Plan (10/05/2017 2:49 PM ANKLE PATCH MOLDER): Diet and exercise were discussed. 1200 Calorie diet advised 45-60 min aerobic / resistance exercise most days of the week recommended. Bariatric surgery medically indicated Assessment & Plan (07/20/2017 4:17 PM ANKLE PATCH MOLDER): Importance of following diet and exercising discussed. [...] changes. Assessment & Plan (10/28/2021 1:21 PM ANKLE PATCH MOLDER): Controlled on current medications, no changes. Assessment [...] microalbumin Assessment & Plan (09/27/2019 9:29 AM ANKLE PATCH MOLDER): Controlled on current medications. Continue plan. Assessment & Plan (06/06/2019 2:49 PM CDT): Controlled on current medications. Continue plan. Assessment & Plan (11/01/2018 2:04 PM CDT): Goal blood pressure is less than 140/85 Low salt diet recommended Daily aerobic exercise Continue current meds, including ALYCE-I or ARB Assessment & Plan (08/07/2018 2:00 PM ANKLE PATCH MOLDER): Controlled on current medications. Assessment & Plan (04/17/2018 2:07 PM CDT): Goal blood pressure is less than 140/85 Low salt diet recommended Daily aerobic exercise Continue current meds, including ALYCE-I or ARB Assessment & Plan (10/05/2017 2:50 PM ANKLE PATCH MOLDER): Goal blood pressure is less than 140/85 Low salt diet recommended Daily aerobic exercise Continue current meds, including ALYCE-I or ARB Assessment & Plan (07/20/2017 4:18 PM ANKLE PATCH MOLDER): Controlled on current medications. Assessment & Plan (04/06/2017 4:28 PM CDT): At goal on current medications. Hyperlipidemia 09/19/2012 Overview (11/24/2016): HYPERLIPIDEMIA NEC/NOS Assessment & Plan (06/06/2019 2:49 PM CDT): Lipid panel ordered Assessment & Plan (07/20/2017 4:18 PM ANKLE PATCH MOLDER): Will check lipid panel Assessment & Plan (04/06/2017 4:28 PM CDT): Check labs and focus on low fat foods Furuncle of trunk 06/28/2012 Overview (11/23/2016): Carbuncle and furuncle of trunk Type 2 diabetes mellitus 06/28/2012 Overview (11/24/2016): DMII WO CMP UNCNTRLD Assessment & Plan (08/07/2024 5:50 PM ANKLE PATCH MOLDER): Chronic, stable Diet and exercise were emphasized Continue Farxiga and Ozempic Assessment & Plan (02/13/2024 4:29 PM CDT): Chronic, well-controlled. Continue Ozempic 2 mg weekly Farxiga 10 mg Importance of diet and exercise was discussed Assessment & Plan (08/10/2023 3:52 PM ANKLE PATCH MOLDER): Chronic, well-controlled, with some postprandial hyperglycemia Continue [...] Farxita Assessment & Plan (07/19/2022 1:34 PM ANKLE PATCH MOLDER): Hba1c was Lab Results Component Value Date [...] today. Assessment & Plan (10/28/2021 1:43 PM ANKLE PATCH MOLDER): Chronic problem, not at goal. Increase NL [...] breakfast Assessment & Plan (09/27/2019 9:31 AM ANKLE PATCH MOLDER): A1c increased to 7.8. Pattern acceptable during [...] discussed. Assessment & Plan (08/07/2018 2:02 PM ANKLE PATCH MOLDER): A1c 8.1. Baseline BG reported at goal. [...] discussed. Assessment & Plan (10/05/2017 2:51 PM ANKLE PATCH MOLDER): Hba1c was . 9.6 . today, indicating [...] discussed. Assessment & Plan (07/20/2017 4:17 PM ANKLE PATCH MOLDER): A1c improved 8.7, ~ 2%. Mostly from [...] on file Legal Sex Female 10:22 AM ANKLE PATCH MOLDER Gender Identity Not on file Sexual Orientation Straight 08/07/2024 2: 11 PM ANKLE PATCH MOLDER Last Filed Vital Signs Vital Sign Reading Time Taken Comments Blood Pressure 100/68 08/07/2024 2:37 PM ANKLE PATCH MOLDER Pulse 66 08/07/2024 2:37 PM ANKLE PATCH MOLDER Temperature - - Respiratory Rate 17 08/07/2024 2:37 PM ANKLE PATCH MOLDER Oxygen Saturation - - Inhaled Oxygen Concentration - - Weight 109 kg (240 lb 6.4 oz) 08/07/2024 2:37 PM ANKLE PATCH MOLDER Height 170.2 cm (5' 7 ) 08/07/2024 2:37 PM ANKLE PATCH MOLDER Body Mass Index 37.65 08/07/2024 2:37 PM ANKLE PATCH MOLDER Plan of Treatment Not on file Procedures Procedure Name Priority Date/Time Associated Diagnosis Comments EGFR Routine 08/07/2024 3:23 PM ANKLE PATCH MOLDER Type 2 diabetes mellitus with hyperglycemia, with long-term current use of insulin (HCC) POCT HEMOGLOBIN A1C Routine 08/07/2024 2 :38 PM ANKLE PATCH MOLDER Type 2 diabetes mellitus with hyperglycemia, with long-term current use of insulin (HCC) HM DIABETES EYE EXAM Routine 10/11/2023 9:29 AM ANKLE PATCH MOLDER ALBUMIN CREATININE RATIO, URINE Routine 08/28/2023 7:38 AM ANKLE PATCH MOLDER LIPID PANEL Routine 08/10/2023 1:53 PM ANKLE PATCH MOLDER Hyperlipidemia associated with type 2 diabetes mellitus (HCC) from Last 3 Months or Most Recently Relevant to Health Maintenance Results * (ABNORMAL) eGFR (08/07/2024 3:23 PM ANKLE PATCH MOLDER) eGFR 35(L) >=60 mL/min/1. 73 m2 Comment: [...] last reviewed 2021. Blood 08/07/2024 3:23 PM ANKLE PATCH MOLDER 08/07/2024 6:55 PM ANKLE PATCH MOLDER us Anthony Castillo MD LAB BLOOD ORDERABLES Final Resul t OLGA [id number] [address] Department [place] [address] * (ABNORMAL) POCT hemoglobin A1c (08/07/2024 2:38 PM ANKLE PATCH MOLDER) Hemoglobin A1C, POC 7.1 4.0 - 5.6 % Comment:None Capillary blood 08/07/2024 2 :38 PM ANKLE PATCH MOLDER Result [facility] Anthony Castillo MD POINT OF CARE TEST ORDERABLES Fi nal Result * (ABNORMAL) DIABETES EYE EXAM (10/11/2023 9:29 AM ANKLE PATCH MOLDER) Isis Salgado MD HEALTH MAINTENANCE Final Result * (ABNORMAL) Albumin Creatinine Ratio, Urine (08/28/2023 7:38 AM ANKLE PATCH MOLDER) SCRIBED Creatinine, Urine 75.44 40 - 278 EXTERNAL LAB SCRIBED Microalbumin 13.4(A) 0.0 - 11.9 EXTERNAL LAB SCRIBED Microalb/Creat Ratio 0.18 0 - 0.20 EXTERNAL LAB Urine 08/28/2023 7:38 AM ANKLE PATCH MOLDER us Historical Provider LAB URINE ORDERABLES Edit ed Result - Final EXTERNAL LAB * (ABNORMAL) Lipid panel (08/10/2023 1:53 PM ANKLE PATCH MOLDER) Cholesterol 164 30 - 199 mg/dL OLGA [...] 3 [facility] HORNER Blood 08/10/2023 1:53 PM ANKLE PATCH MOLDER 08/10/2023 7:31 PM ANKLE PATCH MOLDER us Anthony Castillo MD LAB BLOOD ORDERABLES Final Resul t OLGA [address] [address] Department [place] [address] from Last 3 Months or Most Recently Relevant to Health Maintenance Insurance IDPA [facility] MEDICARE ADVANTAGE [facility] MEDICARE ADVANTAGE [facility] Care Teams Flight Attendant Relationship Specialty Start Date End Date Willian Mendoza MD [facility] - General 02/18/16
--- OUTSIDE RECORDS SUMMARY | 2024-12-30 08:04 | XMS_ITS | Encounter Summary ---
Author Organization [facility] Address [facility] [place] [address] Care Team Providers Care Ice Skating Teacher Name Role Phone Alexis Thurman MD Unavailable [phone] Willian Mendoza MD Primary Care Provider [phone] Cee Liu APRN, RECORDING ARTIST-C Unavailable Virgilio Meehan DO Primary Care Provider [phone] Mame Osborn MD Unavailable [phone] Encounter Details Date Type Department Care Team (Late st Contact Info) Description 11/04/2017 Abstract [facility] CONVERSION [address] [place] [address] , Generic ConversionMD Social History Tobacco Use [...] Description 05/12/2025 1:30 PM CDT Office Visit [facility] eld [address] [place] [address] Cee Liu, ANGEL, RECORDING ARTIST-C [address] [facility] [address] [place] [phone] documented as of this encounter Visit Diagnoses Not on filedocumented in this encounter Care Teams Ice Skating Teacher Relationship Specialty Start Date End Date Willian Mendoza MD [address] [place] [address] PCP - General INTERNAL MEDICINE 09/14/18 09/07/22 Virgilio Meehan DO [address] [place] [address] PCP - General FAMILY PRACTICE 09/08/22 Alexis Thurman MD [address] [place] [address] [place] [employer] Assessor CARDIOVASCULAR DISEASE 09/14/18 04/01/24 Cee Liu, TRUCKER, RECORDING ARTIST-C [address] [facility] [address] [place] [address] NURSE PRACTITIONER 05/27/22 Mame Osborn MD [address] [place] [address] INTERVENTIONAL CARDIOLOGY 05/10/24 documented as of this encounter
--- OUTSIDE RECORDS SUMMARY | 2024-12-30 08:04 | XMS_ITS ---
Author Organization [facility] Address [address] [place], [place] [id number] Care Team Providers Care Ballistics Expert Name Role Phone MIRIAN MOSHER Unavailable [phone] Virgilio Meehan Unavailable Unavailable REASON FOR VISIT [...] Medicationnortriptyline 50 MG Oral Capsule *Reorder from [employer] for eRx and Interaction Alerts* 04/07/20 14 Active esomeprazole 20 MG Injection INTRAVENOUS esomeprazole 20 MG InjectionOriginal Medicationesomeprazole 20 MG Injection *Reorder from [employer] for eRx and Interaction Alerts* 04/07/20 14 Active levothyroxine sodium 0.1 MG Oral Capsule ORAL levothyroxine sodium 0.1 MG Oral CapsuleOriginal Medicationlevothyroxine sodium 0.1 MG Oral Capsule *Reorder from [employer] for eRx and Interaction Alerts* 04/07/20 14 Active propranolol hydrochloride 40 MG Oral Tablet ORAL propranolol hydrochloride 40 MG Oral TabletOriginal Medicationpropranolol hydrochloride 40 MG Oral Tablet *[facility]* 04/07/20 14 Active verapamil hydrochloride 40 MG Oral Tablet ORAL verapamil hydrochloride 40 M G Oral TabletOriginal Medicationverapamil hydrochloride 40 MG Oral Tablet *[facility] Interaction [facility]* 04/07/20 14 Active ciclopirox 80 MG/ML Topical Solution CUTANEOUS ciclopirox 80 MG/ML Topical SolutionOriginal Medicationciclopirox 80 MG/ML Topical Solution *Reorder from [employer] for eRx and Interaction Alerts* 04/20/20 12 Active cinnamon bark 500 MG Oral Capsule ORAL cinnamon bark 500 MG Oral CapsuleOriginal Medicationcinnamon bark 500 MG Oral Capsule *Reorder from [employer] for eRx and Interaction Alerts* 04/07/20 14 Active 3 ML insulin glargine 100 UNT/ML Pen Injector [Lantus] 3 ML insulin glargine 100 UNT/ML Pen Injector [Lantus]Original Medication3 ML insulin glargine 100 UNT/ML Pen Injector [Lantus] *Reorder from [employer] for eRx and Interaction Alerts* 04/07/20 14 Active cholecalciferol 0.025 MG Oral Capsule ORAL cholecalciferol 0.025 MG Ora l CapsuleOriginal Medicationcholecalciferol 0.025 MG Oral Capsule *Reorder from [employer] for eRx and Interaction Alerts* 04/07/20 14 Active Losartan Potassium 100 MG Oral Tablet ORAL losartan potassium 100 MG Oral TabletOriginal Medicationlosartan potassium 100 MG Oral Tablet *Reorder from [employer] for eRx and Interaction Alerts* 04/07/20 14 Active Allopurinol 300 MG Oral Tablet ORAL allopurinol 300 MG Oral TabletOriginal Medicationallopurinol 300 MG Oral Tablet *Reorder from [employer] for eRx and Interaction Alerts* 04/07/20 14 Active Pravastatin Sodium 10 MG Oral Tablet ORAL pravastatin sodium 10 MG Ora l TabletOriginal Medicationpravastatin sodium 10 MG Oral Tablet *Reorder from [employer] for eRx and Interaction Alerts* 04/07/20 14 Active Spironolactone 25 MG Oral Tablet ORAL spironolactone 25 MG Oral TabletOriginal Medicationspironolactone 25 MG Oral Tablet *Reorder from [employer] for eRx and Interaction Alerts* 04/07/20 14 Active Nabumetone 500 MG Oral Tablet ORAL nabumetone 500 MG Oral TabletOriginal Medicationnabumetone 500 MG Oral Tablet *Reorder from [employer] for eRx and Interaction Alerts* 06/29/20 12 Active Encounters Encounter Location Date Provider Diagnosis [facility] [address] [place], [place] [id number] 10/10/2024 MIRIAN MOSHER Tinea unguium B35.1 ; Acquired 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 ; 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 Provider Name:WILFREDO MARTIN, 01/02/2025 02:10:00 PM, [address] [place] [address], [id number], Progress Notes * MATEUSZ MONROE ADOB:[birth year] (59 yo F)Acc No.[id number]:10/10/2024 Patient: MATEUSZ ZHU Provider: Roosevelt Mosher DPM :[id number] A ge:58 Y S ex:Female Date:10/10/2024 Address:[address] [place] [address] Subjective: * Chief Complaints: * Jerrica chung [...] Medicationallopurinol 300 MG Oral Tablet *Reorder from [employer] for eRx and Interaction Alerts*Spironolactone 25 MG Oral Tablet ORAL , Notes to Pharmacist: spironolactone 25 MG Oral TabletOriginal Medicationspironolactone 25 MG Oral Tablet *Reorder from [employer] for eRx and Interaction Alerts*Nabumetone 500 MG Oral Tablet ORAL , Notes to Pharmacist: nabumetone 500 MG Oral TabletOriginal Medicationnabumetone 500 MG Oral Tablet *[facility] and Interaction Alerts*Pravastatin Sodium 10 MG Oral Tablet ORAL , Notes to Pharmacist: pravastatin sodium 10 MG Oral TabletOriginal Medicationpravastatin sodium 10 MG Oral Tablet *Reorder from [facility] for eRx and Interaction Alerts*Losartan Potassium 100 MG Oral Tablet ORAL , Notes to Pharmacist: losartan potassium 100 MG Oral TabletOriginal Medicationlosartan potassium 100 MG Oral Tablet *Reorder from [facility] for eRx and Interaction Alerts*3 ML insulin glargine 100 UNT/ML Pen Injector [Lantus] , Notes to Pharmacist: 3 ML insulin glargine 100 UNT/ML Pen Injector [Lantus]Original Medication3 ML insulin glargine 100 UNT/ML Pen Injector [Lantus] *Reorder from [facility] for eRx and Interaction Alerts*cholecalciferol 0.025 MG Oral Capsule ORAL , Notes to Pharmacist: cholecalciferol 0.025 MG Oral CapsuleOriginal Medicationcholecalciferol 0.025 MG Oral Capsule *Reorder from [facility] for eRx and Interaction Alerts*ciclopirox 80 MG/ML Topical Solution CUTANEOUS , Notes to Pharmacist: ciclopirox 80 MG/ML Topical SolutionOriginal Medicationciclopirox 80 MG/ML Topical Solution *Reorder from [facility] for eRx and Interaction Alerts*cinnamon bark 500 MG Oral Capsule ORAL , Notes to Pharmacist: cinnamon bark 500 MG Oral CapsuleOriginal Medicationcinnamon bark 500 MG Oral Capsule *Reorder from [facility] for eRx and Interaction Alerts*esomeprazole 20 MG Injection INTRAVENOUS , Notes to Pharmacist: esomeprazole 20 MG InjectionOriginal Medicationesomeprazole 20 MG Injection *Reorder from [facility] for eRx and Interaction Alerts*levothyroxine sodium 0.1 MG Oral Capsule ORAL , Notes to Pharmacist: levothyroxine sodium 0.1 MG Oral CapsuleOriginal Medicationlevothyroxine sodium 0.1 MG Oral Capsule *Reorder from [facility] for eRx and Interaction Alerts*nortriptyline 50 MG Oral Capsule ORAL , Notes to Pharmacist: nortriptyline 50 MG Oral CapsuleOriginal Medicationnortriptyline 50 MG Oral Capsule *Reorder from [facility] for eRx and Interaction Alerts*propranolol hydrochloride 40 MG Oral Tablet ORAL , Notes to Pharmacist: propranolol hydrochloride 40 MG Oral TabletOriginal Medicationpropranolol hydrochloride 40 MG Oral Tablet *Reorder from [facility] for eRx and Interaction Alerts*verapamil hydrochloride 40 MG Oral Tablet ORAL , Notes to Pharmacist: verapamil hydrochloride 40 MG Oral TabletOriginal Medicationverapamil hydrochloride 40 MG Oral Tablet *Reorder from [facility] for eRx and Interaction Alerts*Medication List reviewed and reconciled with the patientTaking Allopurinol 300 MG Oral Tablet ORAL , Notes to Pharmacist: allopurinol 300 MG Oral TabletOriginal Medicationallopurinol 300 MG Oral Tablet *Reorder from [facility] for eRx and Interaction Alerts*Taking Spironolactone 25 MG Oral Tablet ORAL , Notes to Pharmacist: spironolactone 25 MG Oral TabletOriginal Medicationspironolactone 25 MG Oral Tablet *Reorder from [facility] for eRx and Interaction Alerts*Taking Nabumetone 500 MG Oral Tablet ORAL , Notes to Pharmacist: nabumetone 500 MG Oral TabletOriginal Medicationnabumetone 500 MG Oral Tablet *Reorder from [facility] for eRx and Interaction Alerts*Taking Pravastatin Sodium 10 MG Oral Tablet ORAL , Notes to Pharmacist: pravastatin sodium 10 MG Oral TabletOriginal Medicationpravastatin sodium 10 MG Oral Tablet *Reorder from [facility] for eRx and Interaction Alerts*Taking Losartan Potassium 100 MG Oral Tablet ORAL , Notes to Pharmacist: losartan potassium 100 MG Oral TabletOriginal Medicationlosartan potassium 100 MG Oral Tablet *Reorder from [facility] for eRx and Interaction Alerts*Taking 3 ML insulin glargine 100 UNT/ML Pen Injector [Lantus] , Notes to Pharmacist: 3 ML insulin glargine 100 UNT/ML Pen Injector [Lantus]Original Medication3 ML insulin glargine 100 UNT/ML Pen Injector [Lantus] *Reorder from [facility] for eRx and Interaction Alerts*Taking cholecalciferol 0.025 MG Oral Capsule ORAL , Notes to Pharmacist: cholecalciferol 0.025 MG Oral CapsuleOriginal Medicationcholecalciferol 0.025 MG Oral Capsule *Reorder from [facility] for eRx and Interaction Alerts*Taking ciclopirox 80 MG/ML Topical Solution CUTANEOUS , Notes to Pharmacist: ciclopirox 80 MG/ML Topical SolutionOriginal Medicationciclopirox 80 MG/ML Topical Solution *Reorder from [facility] for eRx and Interaction Alerts*Taking cinnamon bark 500 MG Oral Capsule ORAL , Notes to Pharmacist: cinnamon bark 500 MG Oral CapsuleOriginal Medicationcinnamon bark 500 MG Oral Capsule *Reorder from [facility] for eRx and Interaction Alerts*Taking esomeprazole 20 MG Injection INTRAVENOUS , Notes to Pharmacist: esomeprazole 20 MG InjectionOriginal Medicationesomeprazole 20 MG Injection *Reorder from [facility] for eRx and Interaction Alerts*Taking levothyroxine sodium 0.1 MG Oral Capsule ORAL , Notes to Pharmacist: levothyroxine sodium 0.1 MG Oral CapsuleOriginal Medicationlevothyroxine sodium 0.1 MG Oral Capsule *Reorder from [facility] for eRx and Interaction Alerts*Taking nortriptyline 50 MG Oral Capsule ORAL , Notes to Pharmacist: nortriptyline 50 MG Oral CapsuleOriginal Medicationnortriptyline 50 MG Oral Capsule *Reorder from [facility] for eRx and Interaction Alerts*Taking propranolol hydrochloride 40 MG Oral Tablet ORAL , Notes to Pharmacist: propranolol hydrochloride 40 MG Oral TabletOriginal Medicationpropranolol hydrochloride 40 MG Oral Tablet *Reorder from [facility] for eRx and Interaction Alerts*Taking verapamil hydrochloride 40 MG Oral Tablet ORAL , Notes to Pharmacist: verapamil hydrochloride 40 MG Oral TabletOriginal Medicationverapamil hydrochloride 40 MG Oral Tablet *Reorder from [facility] for eRx and Interaction Alerts*Medication List reviewed [...] - L85.1 3 . A therosclerosis of tetlin arteries of extremities with intermittent claudication, bilateral [...] develop.) * Billing Information: * Visit Code: 69985 Office Visit, Est Pt., Level 3. * Procedure Codes: * Sign off status: Completed true * Provider: Roosevelt Mosher DPM Date: 0 10/10/2024 Generated for Curt small/Ana Maria/Jose on: 0 12/30/2024 08:04 AM CDT History and Physical Notes * [...]
--- OUTSIDE RECORDS SUMMARY | 2024-12-30 08:04 | XMS_ITS | Clinical Summary ---
Author Organization [facility] Address [address] [place] [address] Care Team Providers Care Java Development Team Lead Name Role Phone Willian Mendoza MD Primary Care Provider Allergies Active Allergy Reactions Criticality Noted Date [...] mouth 2 (two) times a day Active fbjhnvgusjkm-Pi-y marva-minerals tablet Take 1 tablet by mouth [...] hyperglycemia, with long-term current use of insulin ([facility]) USE FOR TESTING FOUR TIMES A DAY DIRECTED 400 each 3 022 Active pen needle, diabetic (TRUEplus Pen Needle) 31 gauge x 3/16 needle Use to inject insulin up to 5 times daily 450 each 2 022 Active alcohol swabs (BD Alcohol Swabs) pads, medicatedIndicati ons:Type 2 diabetes mellitus with hyperglycemia, with long-term current use of insulin ([facility]) USE DIRECTED 4 TIMES DAILY [...] 1 tablet (100 mcg total) by mouth automotive 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 Continue levothyroxine Update TFTs Assessment & Plan (08/10/2023 3:53 PM BATH TESTER): Chronic, well-controlled Importance of taking levothyroxine on [...] 04/17/2018 Assessment & Plan (08/07/2024 5:51 PM BATH TESTER): Chronic, stable Update lipid profile Continue statin therapy Assessment & Plan (08/10/2023 3:53 PM BATH TESTER): Chronic, well-controlled Continue statin therapy with Pravachol Assessment & Plan (01/17/2023 1:59 PM CDT): Chronic, well controlled Low fat Low cholesterol diet Exercise Continue statin therapy with Pravachol Assessment & Plan (03/17/2022 9:47 AM CDT): Chronic problem. On statin therapy, no changes. Assessment & Plan (10/28/2021 1:21 PM BATH TESTER): Chronic problem. On statin therapy, no changes. [...] Pravachol Assessment & Plan (09/27/2019 9:29 AM BATH TESTER): LDL at goal. Trigs elevated. Continue statin [...] therapy Assessment & Plan (08/07/2018 1:59 PM BATH TESTER): At goal on current medications. Assessment & [...] dicussed Assessment & Plan (09/27/2019 9:29 AM BATH TESTER): Continues to do well with wt loss [...] adjusted. Assessment & Plan (08/07/2018 1:59 PM BATH TESTER): Continues to gain weight. Little attempt at diet and exercise. Reviewed importance of avoiding juice, soda, high fat, high carb foods. Assessment & Plan (10/05/2017 2:49 PM BATH TESTER): Diet and exercise were discussed. 1200 Calorie diet advised 45-60 min aerobic / resistance exercise most days of the week recommended. Bariatric surgery medically indicated Assessment & Plan (07/20/2017 4:17 PM BATH TESTER): Importance of following diet and exercising discussed. [...] changes. Assessment & Plan (10/28/2021 1:21 PM BATH TESTER): Controlled on current medications, no changes. Assessment [...] microalbumin Assessment & Plan (09/27/2019 9:29 AM BATH TESTER): Controlled on current medications. Continue plan. Assessment & Plan (06/06/2019 2:49 PM CDT): Controlled on current medications. Continue plan. Assessment & Plan (11/01/2018 2:04 PM CDT): Goal blood pressure is less than 140/85 Low salt diet recommended Daily aerobic exercise Continue current meds, including ALYCE-I or ARB Assessment & Plan (08/07/2018 2:00 PM BATH TESTER): Controlled on current medications. Assessment & Plan (04/17/2018 2:07 PM CDT): Goal blood pressure is less than 140/85 Low salt diet recommended Daily aerobic exercise Continue current meds, including ALYCE-I or ARB Assessment & Plan (10/05/2017 2:50 PM BATH TESTER): Goal blood pressure is less than 140/85 Low salt diet recommended Daily aerobic exercise Continue current meds, including ALYCE-I or ARB Assessment & Plan (07/20/2017 4:18 PM BATH TESTER): Controlled on current medications. Assessment & Plan (04/06/2017 4:28 PM CDT): At goal on current medications. Hyperlipidemia 09/19/2012 Overview (11/24/2016): HYPERLIPIDEMIA NEC/NOS Assessment & Plan (06/06/2019 2:49 PM CDT): Lipid panel ordered Assessment & Plan (07/20/2017 4:18 PM BATH TESTER): Will check lipid panel Assessment & Plan (04/06/2017 4:28 PM CDT): Check labs and focus on low fat foods Furuncle of trunk 06/28/2012 Overview (11/23/2016): Carbuncle and furuncle of trunk Type 2 diabetes mellitus 06/28/2012 Overview (11/24/2016): DMII WO CMP UNCNTRLD Assessment & Plan (08/07/2024 5:50 PM BATH TESTER): Chronic, stable Diet and exercise were emphasized Continue Farxiga and Ozempic Assessment & Plan (02/13/2024 4:29 PM CDT): Chronic, well-controlled. Continue Ozempic 2 mg weekly Farxiga 10 mg Importance of diet and exercise was discussed Assessment & Plan (08/10/2023 3:52 PM BATH TESTER): Chronic, well-controlled, with some postprandial hyperglycemia Continue [...] Farxita Assessment & Plan (07/19/2022 1:34 PM BATH TESTER): Hba1c was Lab Results Component Value Date [...] today. Assessment & Plan (10/28/2021 1:43 PM BATH TESTER): Chronic problem, not at goal. Increase NL [...] breakfast Assessment & Plan (09/27/2019 9:31 AM BATH TESTER): A1c increased to 7.8. Pattern acceptable during [...] goal hba1c is under 7.0 to prevent tank terminal gauger diabetes complications ( eye , kidney and [...] discussed. Assessment & Plan (08/07/2018 2:02 PM BATH TESTER): A1c 8.1. Baseline BG reported at goal. [...] discussed. Assessment & Plan (10/05/2017 2:51 PM BATH TESTER): Hba1c was . 9.6 . today, indicating [...] discussed. Assessment & Plan (07/20/2017 4:17 PM BATH TESTER): A1c improved 8.7, ~ 2%. Mostly from [...] Team Description 11/28/2024 Telephone [facility] [address] [address] Erika Mandel EXPORT FREIGHT MANAGER 11/21/2024 Telephone [facility] [address] [address] Anthony Castillo MD PA in CMM Dexcom G7 sensor 10/18/2024 [facility]phone [facility] [address] [address] Anthony Castillo MD from Last [...] on file Legal Sex Female 10:22 AM BATH TESTER Gender Identity Not on file Sexual Orientation Straight 08/07/2024 2: 11 PM BATH TESTER Obstetrics History Last Filed Vital Signs Vital Sign Reading Time Taken Comments Blood Pressure 100/68 08/07/2024 2:37 PM BATH TESTER Pulse 66 08/07/2024 2:37 PM BATH TESTER Temperature - - Respiratory Rate 17 08/07/2024 2:37 PM BATH TESTER Oxygen Saturation - - Inhaled Oxygen Concentration - - Weight 109 kg (240 lb 6.4 oz) 08/07/2024 2:37 PM BATH TESTER Height 170.2 cm (5' 7 ) 08/07/2024 2:37 PM BATH TESTER Body Mass Index 37.65 08/07/2024 2:37 PM BATH TESTER Plan of Treatment Health Maintenance Due Date [...] Diagnosis Comments EGFR Routine 08/07/2024 3:23 PM BATH TESTER Type 2 diabetes mellitus with hyperglycemia, with long-term current use of insulin (HCC) POCT HEMOGLOBIN A1C Routine 08/07/2024 2 :38 PM BATH TESTER Type 2 diabetes mellitus with hyperglycemia, with long-term current use of insulin (HCC) HM DIABETES EYE EXAM Routine 10/11/2023 9:29 AM BATH TESTER ALBUMIN CREATININE RATIO, URINE Routine 08/28/2023 7:38 AM BATH TESTER LIPID PANEL Routine 08/10/2023 1:53 PM BATH TESTER Hyperlipidemia associated with type 2 diabetes mellitus (HCC) from Last 3 Months or Most Recently Relevant to Health Maintenance Results * (ABNORMAL) eGFR (08/07/2024 3:23 PM BATH TESTER) eGFR 35(L) >=60 mL/min/1. 73 m2 Comment: [...] last reviewed 2021. Blood 08/07/2024 3:23 PM BATH TESTER 08/07/2024 6:55 PM BATH TESTER us Anthony Castillo MD LAB BLOOD ORDERABLES Final Resul t [facility] [id number] Department [place] [address] * (ABNORMAL) POCT hemoglobin A1c (08/07/2024 2:38 PM BATH TESTER) Hemoglobin A1C, POC 7.1 4.0 - 5.6 % Comment:None Capillary blood 08/07/2024 2 :38 PM BATH TESTER Result [facility] us Anthony Castillo MD POINT OF CARE TEST ORDERABLES Fi nal Result * (ABNORMAL) HM DIABETES EYE EXAM (10/11/2023 9:29 AM BATH TESTER) Isis Salgado MD HEALTH MAINTENANCE Final Result * (ABNORMAL) Albumin Creatinine Ratio, Urine (08/28/2023 7:38 AM BATH TESTER) SCRIBED Creatinine, Urine 75.44 40 - 278 EXTERNAL LAB SCRIBED Microalbumin 13.4(A) 0.0 - 11.9 EXTERNAL LAB SCRIBED Microalb/Creat Ratio 0.18 0 - 0.20 EXTERNAL LAB Urine 08/28/2023 7:38 AM BATH TESTER us Historical Provider LAB URINE ORDERABLES Edit ed Result - Final EXTERNAL LAB * (ABNORMAL) Lipid panel (08/10/2023 1:53 PM BATH TESTER) Cholesterol 164 30 - 199 mg/dL OLGA [...] 3 OLGA HORNER Blood 08/10/2023 1:53 PM BATH TESTER 08/10/2023 7:31 PM BATH TESTER us Anthony Castillo MD LAB BLOOD ORDERABLES Final Resul t [facility] [address] Department [place] [address] from Last 3 Months or Most Recently Relevant to Health Maintenance Insurance [employer] IDPA Care Teams Java Development Team Lead Relationship Specialty Start Date End Date Willian Mendoza MD PCP - General 02/18/16
--- OUTSIDE RECORDS SUMMARY | 2024-12-30 08:04 | XMS_ITS ---
Author Organization [facility] Address [address] [place], [place] [address] Care Team Providers Care Forensic Dna Analyst Name Role Phone MIRIAN MOSHER Unavailable [phone] Virgilio Meehan Unavailable Unavailable WILFREDO BRODERICK Unavailable [phone] REASON FOR VISIT *General care Encounters Encounter Location Date Provider Diagnosis [address] [id number] 12/12/2024 WILFREDO BRODERICK Plan Of Treatment Next Appt Details Provider Name:WILFREDO MARTIN, 01/02/2025 02:10:00 PM, [address] [place] [address], [phone], Progress Notes * MATEUSZ MONROE ADOB:[birth year] (59 yo F)Acc No.[id number]:12/12/2024 Patient: MATEUSZ ZHU Provider: Gavi BRODERICK :1965 A ge:59 Y S ex:Female Date:12/12/2024 Address:[address] [place], [place] [id number] Subjective: * Chief Complaints: * 1 . *General care. * Medical History: Objective: * Vitals: Assessment: Plan: * Treatment: * Billing Information: * Visit Code: * Procedure Codes: * Electronic signature of KINA BRODERICK DPM on 12/30/2024 at 08:04 AM CDT Sign off status: Pending * Provider: Gavi BRODERICK Date: 0 12/12/2024 Generated for Curt small/Ana Maria/Jose on: 0 12/30/2024 08:04 AM FARRAH
--- OUTSIDE RECORDS SUMMARY | 2024-12-30 08:04 | XMS_ITS | Encounter Summary ---
Author Organization [facility] Address [facility]ly [facility] [place] [address] Care Team Providers Care Mold Cooler Name Role Phone Alexis Thurman MD Unavailable [phone] Cee Liu APRN, NP-C Unavailable Virgilio Meehan DO Primary Care Provider Mame Osborn MD Unavailable [phone] Encounter Details Date Type Department Care Team (Late Contact Info) Description 12/21/2022 Abstract ON LICENSE OF [facility] [address] [place] [address] Naheed Arzola MD [address] [place] [address] Social History Tobacco Use Types Packs/Day Years [...] 05/12/2025 1:30 PM CDT Office Visit [facility] [address] [place] [address] Cee Liu APRN, RANCH HAND-C [address] [phone] documented as of this encounter Visit Diagnoses Not on filedocumented in this encounter Care Teams Mold Cooler Relationship Specialty Start Date End Date Virgilio Meehan DO [address] [place] [address] PCP - General FAMILY PRACTICE 09/08/22 Alexis Thurman MD [address] [place] [address] [place] Scrap Charger CARDIOVASCULAR DISEASE 09/14/18 04/01/24 Cee Liu APRN, RANCH HAND-C [address] [address] NURSE PRACTITIONER 05/27/22 Mame Osborn MD [address] [place] [address] INTERVENTIONAL CARDIOLOGY 05/10/24 documented as of this encounter
--- OUTSIDE RECORDS SUMMARY | 2024-12-30 08:04 | XMS_ITS | Encounter Summary ---
Author Organization [facility] Address Formerly [facility] [place] [address] Care Team Providers Care Thaw Shed Heater Tender Name Role Phone Alexis Thurman MD Unavailable eCe Liu APRN, NP-C Unavailable Virgilio Meehan DO Primary Care Provider Mame Osborn MD Unavailable [phone] Encounter Details Date Type Department Care Team (Late Contact Info) Description 09/23/2022 [facility] [address] [place] [phone] Alexis Thurman MD [address] [place] [address] Social History Tobacco Use Types [...] Coronavirus/COVID-19? No / Unsure 09/08/2022 8:48 AM LEAN SIX SIGMA BLACK BELT documented as of this encounter Plan of Treatment Upcoming Encounters Date Type Department Care Team (Late Contact Info) Description 05/12/2025 1:30 PM CDT Office Visit [facility] el [address] [place] [address] Cee Liu APRN, PROFESSOR OF CHEMISTRY-C [address] [facility] [address] [place] [phone] documented as of this encounter Visit Diagnoses Not on filedocumented in this encounter Care Teams Thaw Shed Heater Tender Relationship Specialty Start Date End Date Virgilio Meehan DO [address] [place] [address] PCP - General FAMILY PRACTICE 09/08/22 Alexis Thurman MD [address] [place] [phone] Venetia Line Construction Supervisor CARDIOVASCULAR DISEASE 09/14/18 04/01/24 Cee Liu APRN, PROFESSOR OF CHEMISTRY-C [address] [facility] [address] [phone] NURSE PRACTITIONER 05/27/22 Mame Osborn MD [address] [place] [address] INTERVENTIONAL CARDIOLOGY 05/10/24 documented as of this encounter
--- OUTSIDE RECORDS SUMMARY | 2024-12-30 08:04 | XMS_ITS | Encounter Summary ---
Author Organization [facility] Address [facility] [place] [address] Care Team Providers Care Physician In Private Practice Name Role Phone Alexis Thurman MD Unavailable [phone] Willian Mendoza MD Primary Care Provider [phone] Cee Liu APRN, ROTARY OPERATOR-C Unavailable Virgilio Meehan DO Primary Care Provider [phone] Mame Osborn MD Unavailable [phone] Encounter Details Date Type Department Care Team (Late st Contact Info) Description 10/12/2018 Abstract [facility] [address] [place] [address] Abstract, Doc Prevea Social History [...] PM CDT [facility] [address] [place] [address] Cee Liu APRN, ROTARY OPERATOR-C [address] [facility] [address] [place] [phone] documented as of this encounter Visit Diagnoses Not on filedocumented in this encounter Care Teams Physician In Private Practice Relationship Specialty Start Date End Date Willian Mendoza MD [address] [place] [address] PCP - General INTERNAL MEDICINE 09/14/18 09/07/22 Virgilio Meehan DO [address] [place] [address] PCP - General FAMILY PRACTICE 09/08/22 Alexis Thurman MD [address] [place] [phone] Malin Air Pollution Specialist CARDIOVASCULAR DISEASE 09/14/18 04/01/24 Cee Liu APRN, ROTARY OPERATOR-C [address] [facility] [address] [place] [phone] NURSE PRACTITIONER 05/27/22 Mame Osborn MD [address] [place], [place] [phone] INTERVENTIONAL CARDIOLOGY 05/10/24 documented as of this encounter
--- OUTSIDE RECORDS SUMMARY | 2024-12-30 08:04 | XMS_ITS | Encounter Summary ---
Author Organization [facility] Address [facility] [place] [address] Care Team Providers Care Freight Adjuster Name Role Phone Alexis Thurman MD Unavailable [phone] Willian Mendoza MD Primary Care Provider [phone] Cee Liu APRN, HANDICAPPER HARNESS RACING-C Unavailable Virgilio Meehan DO Primary Care Provider [phone] Mame Osborn MD Unavailable [phone] Encounter Details Date Type Department Care Team (Late st Contact Info) Description 07/04/2022 Abstract [facility] [address] [place] [address] Alexis Thurman MD [address] [place] [phone] Social History Tobacco Use Types Packs/Day Years [...] Coronavirus/COVID-19? No / Unsure 06/29/2022 5:44 AM RAILROAD CAR LOADER documented as of this encounter Plan of Treatment Upcoming Encounters Date Type Department Care Team (Late st Contact Info) Description 05/12/2025 1:30 PM CDT Office Visit [facility] [address] [place] [address] Cee Liu APRN, HANDICAPPER HARNESS RACING-C [address] [facility] [address] [place] [address] documented as of this encounter [...] on filedocumented in this encounter Care Teams Freight Adjuster Relationship Specialty Start Date End Date Willian Mendoza MD [address] [place] [address] PCP - General INTERNAL MEDICINE 09/14/18 09/07/22 Virgilio Meehan DO [address] [place] [address] PCP - General FAMILY PRACTICE 09/08/22 Alexis Thurman MD [address] [place] [address] [place] Family Life Educator CARDIOVASCULAR DISEASE 09/14/18 04/01/24 Cee Liu APRN, HANDICAPPER HARNESS RACING-C [address] [facility] [address] [place] [address] NURSE PRACTITIONER 05/27/22 Mame Osborn MD [address] [place] [address] INTERVENTIONAL CARDIOLOGY 05/10/24 documented as of this encounter
--- OUTSIDE RECORDS SUMMARY | 2024-12-30 08:04 | XMS_ITS | Clinical Summary ---
Author Organization [facility] Address [facility] [place] [address] Care Team Providers Care Animal Shelter Clerk Name Role Phone Cee Liu APRN INFRASTRUCTURE SOLUTIONS ARCHITECT-C Unavailable Virgilio Meehan DO Primary Care Provider [phone] Mame Osborn MD Unavailable [phone] Allergies Active Allergy Reactions Criticality Noted Date Comments Amoxicillin-Pot Clavulanate Diarrhea 05/27/2022 Metformin Other (see comment) 05/27/2022 Renal function impairment Pantoprazole Other (see comment) 05/27/2022 Hypomagnesemia Medications CPAP DME DEVICE CPAPCPAP [id number] via IV [id number] Morrissey 8 Active pravastatin (PRAVACHOL) 20 MG [...] mouth 2 (two) times daily. Active CREON 13889-064509 units capsule Take 2 capsules (72,000 units [...] check lipid panel Hypertension associated with diabetes ([facility]) 09/19/2012 Overview (10/22/2018): Overview: Unspecified essential hypertension Last Assessment & Plan: Controlled on current medications. Type 2 diabetes mellitus ([facility]) 06/28 Overview (10/22/2018): Overview: DMII WO [...] Type Department Care Team Description 11/12/2024 Telephone COUNTS INCLUDE 234 BEDS AT [facility] [address] [place] [address] Ella Witt MD Results 11/12/2024 Orders Only COUNTS INCLUDE 234 BEDS AT THE [facility] [address] [place] [address] Ella Witt MD 11/12/2024 Abstract COUNTS INCLUDE 234 BEDS AT THE [facility] [address] [place] [address] Ella Witt MD 11/04/2024 11:15 AM CDT - 11/04/2024 11:59 PM CDT Hospital Encounter [facility] [address] [place] [address] Ella Witt MD Discharge Disposition: Home or Self Care (Routine Discharge) 11/04/2024 10:30 AM CDT Office Visit COUNTS INCLUDE 234 BEDS AT THE [facility] [address] [place], [place] [address] [place] [address] Gonzalez Wilson MD Bhatti, Vikrampal S, MD CKD Follow-up (Pt is having some low back pain for the past 3 or 4 days.) 11/04/2024 Scan COUNTS INCLUDE 234 BEDS AT THE [facility] [address] [place] [address] Scanned, Doc Cikda 11/04/2024 Orders Only [facility] [place] [address] Ella Witt MD 11/04/2024 Travel 10/29/2024 Scan COUNTS INCLUDE 234 BEDS AT THE [facility] [address] [place] [address] Scanned, Doc Cikda Lab (SCAN) from Last [...] 36.2 C (97.2 F) 06/29/2022 6:18 AM NAPHTHALENE STILL OPERATOR Respiratory Rate 16 05/10/2024 12:4 0 PM [...] 05/12/2025 1:30 PM CDT Office Visit [facility] eld [address] [place] [phone] Cee Liu, COURT CLERK, INFRASTRUCTURE SOLUTIONS ARCHITECT-C [address] [facility] [address] [place] [address] Health Maintenance Due Date Last [...] this topic Medical Devices Implanted Type Area Railway Track Plant Operator Device Identifier Shelf Expiration Date Model / Serial / Lot Stent Ureteral Selfridge Sci Contour 6fr X 26cm - [id number] Implanted:Qty : 1 on 06/28/2021 by Ryan Vinson MD at [facility] Stent Right: Ureter [employer] [place] [id number] 04/12/2024 [id number] / / [id number] Procedures Procedure Name Priority Date/Time Associated Diagnosis Comments HC URINALYSIS AUTO W/MICRO Routine 11/04/2024 11:24 AM CDT Chronic kidney disease, stage 3b (CMS/HCC) OUTSIDE LAB (SCAN ORDER) Routine 10/29/2024 LIPID PANEL Routine 07/23/2009 12:00 AM NAPHTHALENE STILL OPERATOR from Last 3 Months or Most Recently Relevant to Health Maintenance Results * (ABNORMAL) URINALYSIS (11/04/2024 11:24 AM CDT) COLOR (U) YELLOW 11/04/2024 11:52 AM CDT [facility] TRANSPARENCY CLEAR 11/04/2024 11:52 AM CDT [facility] SPECIFIC GRAVITY (U) 1.020 1.000 - 1.025 11/04/2024 11:52 AM CDT [facility] U PH 5.5 5.0 - 8.0 11/04/2024 11:52 AM CDT [facility] LEUKOCYTES (U) TRACE(A) NEGATIVE 11/04/2024 11:52 AM CDT [facility] NITRITES NEGATIVE NEGATIVE 11/04/2024 11:52 AM CDT [facility] PROTEIN RANDOM (U) NEGATIVE NEGATIVE 11/04/2024 11:52 AM CDT [facility] GLUCOSE (U) 2+(A) NEGATIVE 11/04/2024 11:52 AM CDT [facility] KETONES MG/DL (U) NEGATIVE NEGATIVE 11/04/2024 11:52 AM CDT [facility] UROBILINOGEN 0.2 <1.0 EU/DL 11/04/2024 11:52 AM CDT [facility] BILIRUBIN (U) NEGATIVE NEGATIVE 11/04/2024 11:52 AM CDT [facility] BLOOD (U) NEGATIVE NEGATIVE 11/04/2024 11:52 AM CDT [facility] WBC/HPF 0-5 0 - 5 /HPF 11/04/2024 11:52 AM CDT [facility] RBC/HPF 0-5 0 - 5 /HPF 11/04/2024 11:52 AM CDT [facility] EPI/LPF FEW /LPF 11/04/2024 11:52 AM CDT [facility] BACTERIA (U) 1+ /HPF 11/04/2024 11:52 AM CDT [facility] URINE SPECIMEN OBTAINED BY CLEAN CATCH PROCEDURE / Unknown 11/04/2024 11:24 AM CDT Ella Witt MD URINE ORDERABLES Final Res ult [facility] [place] [address], * OUTSIDE LAB (10/29/2024) 10/29/2024 us Doc Cikda Scanned SCANNING Final Result [facility] ONBASE * LIPID PANEL (07/23/2009 12:00 AM NAPHTHALENE STILL OPERATOR) TRIGLYCERIDES 132 0 - 150 mg/dl MEDINFORMATIX TO EPIC CONVERSION CHOLESTEROL 180 0 - 200 mg/dl MEDINFORMATIX TO EPIC CONVERSION HDL 61 40 - 59 mg/dl MEDINFORMAT[employer] TO EPIC CONVERSION LDL CONVERSION 93 0 - 100 mg/dl MEDINFORMATIX TO EPIC CONVERSION CHOL/HDL RATIO 3.0 <4.0 (Calc) MEDINFORMATIX TO EPIC CONVERSION 07/23/2009 07/23/2009 Narrative MEDINFORMATIX TO EPIC CONVERSION - 07/23/2009 1:31 PM NAPHTHALENE STILL OPERATOR Reviewed by ANGELA Jul 23 2009 1:33:00:000PM us Generic Conversion Md [facility] Final R esult MEDINFORMATIX TO EPIC CONVERSION from Last 3 Months or Most Recently Relevant to Health Maintenance Insurance MEDICAID DEPT OF [address] MEDICAID [facility] MEDICAID Advance Directives * Full Code (Latest Code Status on File) Date Activated Date Inactivated Comments 06/29/2022 9:52 AM 06/29/2022 1:43 PM Care Teams Animal Shelter Clerk Relationship Specialty Start Date End Date Virgilio Meehan DO [address] [place] [address] PCP - General FAMILY PRACTICE 09/08/22 Cee Liu APRN, INFRASTRUCTURE SOLUTIONS ARCHITECT-C [address] [place] [address] [address] [place] [address] NURSE PRACTITIONER 05/27/22 Mame Osborn MD [address] [place] [address] INTERVENTIONAL CARDIOLOGY 05/10/24
--- OUTSIDE RECORDS SUMMARY | 2024-12-30 08:04 | XMS_ITS | Encounter Summary ---
Author Organization [facility] Address [facility] [place] [address] Care Team Providers Care Ingredient Specialist Name Role Phone Cee Liu APRN, ENGINEERING DIRECTOR-C Unavailable [phone] Virgilio Meehan DO Primary Care Provider [phone] Mame Osborn MD Unavailable [phone] Encounter Details Date Type Department Care Team (Late Contact Info) Description 11/12/2024 Abstract [facility] [address] [place] [address] Ella Witt MD [address] [place] [address] Social History Tobacco Use Types Packs/Day Years [...] Description 05/12/2025 1:30 PM CDT Office Visit [facility] eld [address] [place] [address] Cee Liu APRN, ENGINEERING DIRECTOR-C [address] [facility] [address] [place] [address] documented as of this encounter Visit Diagnoses Not on filedocumented in this encounter Care Teams Ingredient Specialist Relationship Specialty Start Date End Date Virgilio Meehan DO [address] [place] [address] PCP - General FAMILY PRACTICE 09/08/22 Cee Liu, BOTTOMING ROOM SUPERVISOR, ENGINEERING DIRECTOR-C [address] [facility] [address] [place] [address] NURSE PRACTITIONER 05/27/22 Mame Osborn MD [address] [place] [address] INTERVENTIONAL CARDIOLOGY 05/10/24 documented as of this encounter
--- OUTSIDE RECORDS SUMMARY | 2024-12-30 08:04 | XMS_ITS | Continuity of Care Document ---
Author Organization [facility] Address [address] [facility] [address] [place] [address] Phone Care Team Providers Care Quality Assurance Supervisor Name Role Phone Nilson Vaughan Unavailable Unavailable [...] Diagnoses Date Provider Providers Copied on Encounter [facility], [address], [place], [place], [id number], [place] tel:[phone] [facility] No Information Clement Devine. [address] [place], [address], [place]. tel:[phone] Referring Provider: Nilson Stewart, [address] [place], [address]. tel:[phone] [facility], [address], [place], [place], [id number], [place] tel:[phone] [facility] No Information Clement Devine. [address] [place], [address], [place]. tel:[phone] Referring Provider: Nilson Stewart, [address] [place], [address]. tel:[phone] [facility], [address], [place], [place], [id number], [place] tel:[phone] [facility] No Information Clement Devine. [address] [place], [address], [place]. tel:[phone] Referring Provider: Nilson Stewart, [address] [place], [address]. tel:[phone] [facility], [address], [place], [place], [id number], [place] tel:[phone] [facility] No Information Clement Devine. [address] [place], [address], [place]. [phone] Referring Provider: Nilson Stewart, [address] [place], [address]. tel:[phone] [facility], [address], [place], [place], [id number], [place] tel:[phone] [facility] No Information Clement Devine. [address] [place], [address], [place]. tel:[phone] [facility], [address], [place], [place], [id number], [place] tel:[phone] [facility] No Information Clement Devine. [address] [place], [address], [place]. tel:[phone] Referring Provider: Nilson Stewart, [address] [place], [address]. tel:[phone] Office/outpat ient Visit, [facility], [address], [place], [place], [address], [place] tel:[phone] [facility] No Information Clement Devine. [address] [place], [address], [place]. tel:[phone] Family History Family Member Type Diagnosis Age At Onset No Information Payers Payer name Insurance type Covered republican ID Authorshiloha tiisaiah(s) Medicaid [facility] [id number] Social History Type Description Quantity Date Captured [...]
--- OUTSIDE RECORDS SUMMARY | 2024-12-30 08:04 | XMS_ITS ---
Author Organization [facility] Address [address] [facility] [address] [place], [place] [id number] Care Team Providers Care Wing Scorer Name Role Phone MIRIAN MOSHER [phone] Virgilio Meehan Unavailable Unavailable REASON FOR VISIT DIABETIC SHOES AND INSERTS Encounters Encounter Location Date Provider Diagnosis [facility] [address] [facility] [address] [place], [place] [id number] 12/09/2024 MIRIAN MOSHER Plan Of Treatment Next Appt Details Provider Name:WILFREDO MARTIN, 01/02/2025 02:10:00 PM, [address] [place] [address], [phone], Progress Notes * MATEUSZ MONROE ADOB:[birth year] (59 yo F)Acc No.[id number]:12/09/2024 Patient: Zay MATEUSZ SNIDER :1965 A ge:59 Y S ex:Female Address:[address] [place] [address], [address] * true * Date: Generated for Printi ng/Fadaviang/eTransmitting on: 0 12/30/2024 08:03 AM CDT
--- OUTSIDE RECORDS SUMMARY | 2024-12-30 08:04 | XMS_ITS | Encounter Summary ---
Author Organization [facility] Address [facility] [place] [address] Care Team Providers Care Blueprint Reader Name Role Phone Alexis Thurman MD Unavailable [phone] Willian Mendoza MD Primary Care Provider [phone] Cee Liu APRN, VP DIRECTOR OF CREATIVE STRATEGY-C Unavailable Virgilio Meehan DO Primary Care Provider [phone] Mame Osborn MD Unavailable [phone] Encounter Details Date Type Department Care Team (Late st Contact Info) Description 06/24/2022 Hospital Orders Only [employer] 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 Pre/Post [address] [place] [address] Alexis Thurman MD [address] [place] [address] Social History Tobacco Use Types [...] Description 05/12/2025 1:30 PM CDT Office Visit [facility] el [address] [place] [address] Cee Liu APRN, VP DIRECTOR OF CREATIVE STRATEGY-C [address] [facility] [address] [phone] documented as of this encounter Visit Diagnoses Not on filedocumented in this encounter Care Teams Blueprint Reader Relationship Specialty Start Date End Date Willian Mendoza MD [address] [place] [address] PCP - General INTERNAL MEDICINE 09/14/18 09/07/22 Virgilio Meehan DO [address] [place] [address] PCP - General FAMILY PRACTICE 09/08/22 Alexis Thurman MD [address] [place] [phone] Cypress Extraction Operator CARDIOVASCULAR DISEASE 09/14/18 04/01/24 Cee Liu APRN, VP DIRECTOR OF CREATIVE STRATEGY-C [address] [phone] NURSE PRACTITIONER 05/27/22 Mame Osborn MD [address] [place], [place] [phone] INTERVENTIONAL CARDIOLOGY 05/10/24 documented as of this encounter
--- OUTSIDE RECORDS SUMMARY | 2024-12-30 08:04 | XMS_ITS | Encounter Summary ---
Author Organization [facility] Address [facility] [place] [address] Care Team Providers Care Programmer Analyst Consultant Name Role Phone Alexis Thurman MD Unavailable [phone] Willian Mendoza MD Primary Care Provider [phone] Cee Liu APRN, KNIFE CHANGER-C Unavailable [phone] Virgilio Meehan DO Primary Care Provider [phone] Mame Osborn MD Unavailable [phone] Encounter Details Date Type Department Care Team (Late st Contact Info) Description 04/07/2021 Abstract [facility] [address] [place] [address] [place] [address] [place] [phone] Social History Tobacco Use Types Packs/Day Years [...] 05/12/2025 1:30 PM CDT Office Visit [facility] el [address] [place] [address] Cee Liu APRN, KNIFE CHANGER-C [address] [phone] documented as of this encounter Visit Diagnoses Not on filedocumented in this encounter Care Teams Programmer Analyst Consultant Relationship Specialty Start Date End Date Willian Mendoza MD [address] [place] [address] PCP - General INTERNAL MEDICINE 09/14/18 09/07/22 Virgilio Meehan DO [address] [place] [address] PCP - General FAMILY PRACTICE 09/08/22 Alexis Thurman MD [address] [place] [phone] [place] Rn X Ray CARDIOVASCULAR DISEASE 09/14/18 04/01/24 Cee Liu APRN, KNIFE CHANGER-C [address] [phone] NURSE PRACTITIONER 05/27/22 Mame Osborn MD [address] [place] [address] INTERVENTIONAL CARDIOLOGY 05/10/24 documented as of this encounter
--- OUTSIDE RECORDS SUMMARY | 2024-12-30 08:04 | XMS_ITS | Patient Health Record ---
Author Organization [facility] Address [address] [place], [place] [id number] Care Team Providers Care Honey Grader And Blender Name Role Phone MIRIAN MOSHER Unavailable [phone] Virgilio Meehan Unavailable Unavailable ADRIEN CONTRERAS Unavailable [phone] WILFREDO BRODERICK Unavailable [phone] Allergies No Known Allergies Reason For Referral No Information Medications Medication SIG (Take, Route, Frequency, Duration) Notes Start Date End Date Status nortriptyline 50 MG Oral Capsule ORAL nortriptyline 50 MG Oral CapsuleOriginal Medicationnortriptyline 50 MG Oral Capsule *Reorder from [facility] for eRx and Interaction Alerts* 04/07/20 14 Active Allopurinol 300 MG Oral Tablet ORAL allopurinol 300 MG Oral TabletOriginal Medicationallopurinol 300 MG Oral Tablet *Reorder from [facility]I [facility] for eRx and Interaction Alerts* 04/07/20 14 Active esomeprazole 20 MG Injection INTRAVENOUS esomeprazole 20 MG InjectionOriginal Medicationesomeprazole 20 MG Injection *Reorder from [facility] for eRx and Interaction Alerts* 04/07/20 14 Active levothyroxine sodium 0.1 MG Oral Capsule ORAL levothyroxine sodium 0.1 MG Oral CapsuleOriginal Medicationlevothyroxine sodium 0.1 MG Oral Capsule *Reorder from [facility] for eRx and Interaction Alerts* 04/07/20 14 Active ciclopirox 80 MG/ML Topical Solution CUTANEOUS ciclopirox 80 MG/ML Topical SolutionOriginal Medicationciclopirox 80 MG/ML Topical Solution *Reorder from [facility] for eRx and Interaction Alerts* 04/20/20 12 Active cinnamon bark 500 MG Oral Capsule ORAL cinnamon bark 500 MG Oral CapsuleOriginal Medicationcinnamon bark 500 MG Oral Capsule *Reorder from [facility] for eRx and Interaction Alerts* 04/07/20 14 Active 3 ML insulin glargine 100 UNT/ML Pen Injector [Lantus] 3 ML insulin glargine 100 UNT/ML Pen Injector [Lantus]Original Medication3 ML insulin glargine 100 UNT/ML Pen Injector [Lantus] *Reorder from [facility] for eRx and Interaction Alerts* 04/07/20 14 Active cholecalciferol 0.025 MG Oral Capsule ORAL cholecalciferol 0.025 MG Ora l CapsuleOriginal Medicationcholecalciferol 0.025 MG Oral Capsule *Reorder from [facility] for eRx and Interaction Alerts* 04/07/20 14 Active Pravastatin Sodium 10 MG Oral Tablet ORAL pravastatin sodium 10 MG Ora l TabletOriginal Medicationpravastatin sodium 10 MG Oral Tablet *Reorder from [facility] for eRx and Interaction Alerts* 04/07/20 14 Active Losartan Potassium 100 MG Oral Tablet ORAL losartan potassium 100 MG Oral TabletOriginal Medicationlosartan potassium 100 MG Oral Tablet [facility]* 04/07/20 14 Active Spironolactone 25 MG Oral Tablet ORAL spironolactone 25 MG Oral TabletOriginal Medicationspironolactone 25 MG Oral Tablet *Reorder from [facility] for eRx and Interaction Alerts* 04/07/20 14 Active propranolol hydrochloride 40 MG Oral Tablet ORAL propranolol hydrochloride 40 MG Oral TabletOriginal Medicationpropranolol hydrochloride 40 MG Oral Tablet *Reorder from [facility] for eRx and Interaction Alerts* 04/07/20 14 Active Nabumetone 500 MG Oral Tablet ORAL nabumetone 500 MG Oral TabletOriginal Medicationnabumetone 500 MG Oral Tablet *Reorder from [facility] for eRx and Interaction Alerts* 06/29/20 12 Active verapamil hydrochloride 40 MG Oral Tablet ORAL verapamil hydrochloride 40 M G Oral TabletOriginal Medicationverapamil hydrochloride 40 MG Oral Tablet [facility] Interaction [facility]* 04/07/20 14 Active Immunizations Vaccine Route Administration Date Status Comme nts Influenza, unspecified formulation Unknown 06/30/2023 A dministered Vital Signs Height-cm 170.18 cm 02/08/2024 Weight-kg 113.85 kg 02/08/2024 Height 67.00 in 02/08/2024 Weight 251 lbs 02/08/2024 BMI 39.31 kg/m2 02/08/2024 Encounters Encounter Location Date Provider Diagnosis [address] [id number] 02/08/2024 ADRIEN CONTRERAS Unspecified atherosclerosis of [place] arteries of extremities, bilateral legs I70.203 ; Tinea unguium B35.1 ; Pain in left toe(s) M79.675 ; Other hammer toe(s) (acquired), right foot M20.41 ; Other hammer toe(s) (acquired), left foot M20.42 and Pain in right toe(s) M79.674 [facility] [address] [place], [place] [id number] 04/11/2024 ADRIEN CONTRERAS Unspecified atherosclerosis of [place] arteries of extremities, bilateral legs I70.203 ; Tinea unguium B35.1 ; Pain in left toe(s) M79.675 ; Other hammer toe(s) (acquired), right foot M20.41 ; Other hammer toe(s) (acquired), left foot M20.42 ; Pain in right toe(s) M79.674 and Acquired 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 [id number] 10/10/2024 MIRIAN MOSHER Tinea unguium B35.1 ; Acquired 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 ; Atherosclerosis of [place] arteries of extremities with intermittent claudication, bilateral legs I70.213 ; Pain in right foot M79.671 and Pain in left foot M79.672 [facility] [address] [facility] [address] [place], [place] [id number] 12/09/2024 MIRIAN MOSHER Assessments Encounter Date Diagnosis [...] and prescription treatments. 02/08/2024 Unspecified atherosclerosis of [place] arteries of extremities, bilateral legs (ICD-10 - [...] and prescription treatments. 04/11/2024 Unspecified atherosclerosis of [place] arteries of extremities, bilateral legs (ICD-10 - [...] utilizing a #15 blade 10/10/2024 Atherosclerosis of [place] arteries of extremities with intermittent claudication, bilateral [...] Details Provider Name:WILFREDO MARTIN, 01/02/2025 02:10:00 PM, [address] [place] [address], [phone], Insurance Providers Payer Name Payer Address Payer Phone Subscriber Number Group Number Insured Name Patient Relationship to Insured Coverage Start Date Coverage End Date [facility] [address] [address] [place] [address] [id number] MATEUSZ MONROE Self - patient is the insured
[2024-12-30 08:23] VITALS: BP 118/70; PULSE 72; RESP 14; TEMP 36.6; O2SAT 98; BMI 36.6
[2024-12-30] MEDS: CYANOCOBALAMIN INJ 1,000 MCG/ML VIAL 1000 MCG IM (08:32)
[2024-12-30] MEDS: SODIUM CHLORIDE 0.9% IVPB (08:35)
[2024-12-30] MEDS: MAGNESIUM SULFATE IVPB (08:35)
[2024-12-30 11:45] VITALS: BP 112/70; PULSE 72; RESP 14
--- NOTE | 2024-12-30 11:45 | PC.NURSE ---
Patient here for monthly Magnesium and B12 injection. Missed last month r/t dental work. Education given. No concerns voiced. Injection and infusion administered see MAR/patient care notes. Tolerated well.
== END 2024-12-30 07:58 | disposition home or self-care (01) ==
PROVIDERS: PCP Family Medicine; Visit Provider Family Medicine
DX: D51.9 Vitamin B12 deficiency anemia, unspecified (principal); E83.42 Hypomagnesemia
CPT/HCPCS: 96365; 96366; 96372; J3420; J3475; J7050

== ENCOUNTER 2025-02-02 12:04 | Outpatient (CLI) | payer MEDICARE, MEDICAID, SELFPAY ==
--- OUTSIDE RECORDS SUMMARY | 2025-02-02 12:07 | XMS_ITS | Encounter Summary ---
Author Organization [facility] Address [facility] [place] [address] Care Team Providers Care Water Valve Mechanic Name Role Phone Alexis Thurman MD Unavailable [phone] Cee Liu APRN, NP-C Unavailable Virgilio Meehan DO Primary Care Provider Mame Osborn MD Unavailable [phone] Encounter Details Date Type Department Care Team (Late Contact Info) Description 09/23/2022 [facility] [address] [place] [phone] Alexis Thurman MD [address] [place] [address] Social History Tobacco Use Types [...] Coronavirus/COVID-19? No / Unsure 09/08/2022 8:48 AM MOLDED GOODS CONTROLS OPERATOR documented as of this encounter Plan of Treatment Upcoming Encounters Date Type Department Care Team (Late Contact Info) Description 05/12/2025 1:30 PM CDT Office Visit [facility] [address] [place] [address] Cee Liu APRN, GEOLOGIC TECHNICIAN-C [address] [facility] [address] [place] [phone] documented as of this encounter Visit Diagnoses Not on filedocumented in this encounter Care Teams Water Valve Mechanic Relationship Specialty Start Date End Date Virgilio Meehan DO [address] [place] [address] PCP - General FAMILY PRACTICE 09/08/22 Alexis Thurman MD [address] [place] [address] [place] Statistical Consultant CARDIOVASCULAR DISEASE 09/14/18 04/01/24 Cee Liu APRN, GEOLOGIC TECHNICIAN-C [address] [facility] [address] [phone] NURSE PRACTITIONER 05/27/22 Mame Osborn MD [address] [place] [address] INTERVENTIONAL CARDIOLOGY 05/10/24 documented as of this encounter
--- OUTSIDE RECORDS SUMMARY | 2025-02-02 12:07 | XMS_ITS | Encounter Summary ---
Author Organization [facility] Address [facility] [place] [address] Care Team Providers Care Vc++ Developer Name Role Phone Alexis Thurman MD Unavailable [phone] Willian Mendoza MD Primary Care Provider [phone] Cee Liu APRN, MANAGER ALLIANCE-C Unavailable Virgilio Meehan DO Primary Care Provider [phone] Mame Osborn MD Unavailable [phone] Encounter Details Date Type Department Care Team (Late st Contact Info) Description 07/04/2022 Abstract [facility] [address] [place] [address] Alexis Thurman MD [address] [place] [phone] Social History Tobacco Use Types Packs/Day Years [...] Coronavirus/COVID-19? No / Unsure 06/29/2022 5:44 AM CARPENTER/LABOR documented as of this encounter Plan of Treatment Upcoming Encounters Date Type Department Care Team (Late st Contact Info) Description 05/12/2025 1:30 PM CDT Office Visit [facility] [address] [place] [address] Cee Liu APRN, MANAGER ALLIANCE-C [address] [facility] [address] [place] [address] documented as of this encounter [...] on filedocumented in this encounter Care Teams Vc++ Developer Relationship Specialty Start Date End Date Willian Mendoza MD [address] [place] [address] PCP - General INTERNAL MEDICINE 09/14/18 09/07/22 Virgilio Meehan DO [address] [place] [address] PCP - General FAMILY PRACTICE 09/08/22 Alexis Thumran MD [address] [place] [address] [place] Professor Of Education CARDIOVASCULAR DISEASE 09/14/18 04/01/24 Cee Liu APRN, MANAGER ALLIANCE-C [address] [facility] [address] [place] [address] NURSE PRACTITIONER 05/27/22 Mame Osborn MD [address] [place] [address] INTERVENTIONAL CARDIOLOGY 05/10/24 documented as of this encounter
--- OUTSIDE RECORDS SUMMARY | 2025-02-02 12:07 | XMS_ITS | Encounter Summary ---
Author Organization [facility] Address [facility] [place] [address] Care Team Providers Care Inspector Scales Name Role Phone Alexis Thurman MD Unavailable [phone] Cee Liu APRN, NP-C Unavailable [phone] Virgilio Meehan DO Primary Care Provider [phone] Mame Osborn MD Unavailable [phone] Encounter Details Date Type Department Care Team (Late Contact Info) Description 12/21/2022 Abstract [facility] [address] [place] [address] Naheed Arzola MD [address] [place] [address] Social History Tobacco Use Types Packs/Day Years [...] 05/12/2025 1:30 PM CDT Office Visit [facility] [address] [place] [address] Cee Liu APRN, DIABETES SPECIALIST-C [address] [phone] documented as of this encounter Visit Diagnoses Not on filedocumented in this encounter Care Teams Inspector Scales Relationship Specialty Start Date End Date Virgilio Meehan DO [address] [place] [address] PCP - General FAMILY PRACTICE 09/08/22 Alexis Thurman MD [address] [place] [address] [place] Rehabilitation Counsellor CARDIOVASCULAR DISEASE 09/14/18 04/01/24 Cee Liu APRN, DIABETES SPECIALIST-C [address] [address] NURSE PRACTITIONER 05/27/22 Mame Osborn MD [address] [place] [address] INTERVENTIONAL CARDIOLOGY 05/10/24 documented as of this encounter
--- OUTSIDE RECORDS SUMMARY | 2025-02-02 12:07 | XMS_ITS | Encounter Summary ---
Author Organization [facility] Address [facility] [place] [address] Care Team Providers Care Alloy Weigher Name Role Phone Alexis Thurman MD Unavailable [phone] Willian Mendoza MD Primary Care Provider [phone] Cee iLu APRN, LAMINATION OPERATOR-C Unavailable [phone] Virgilio Meehna DO Primary Care Provider [phone] Mame Osborn MD Unavailable [phone] Encounter Details Date Type Department Care Team (Late st Contact Info) Description 10/12/2018 Abstract [facility] [address] [place] [address] Abstract, Doc Prevea Social History [...] PM CDT [facility] [address] [place] [address] Cee Liu APRN, LAMINATION OPERATOR-C [address] [facility] [address] [place] [phone] documented as of this encounter Visit Diagnoses Not on filedocumented in this encounter Care Teams Alloy Weigher Relationship Specialty Start Date End Date Willian Mendoza MD [address] [place] [address] PCP - General INTERNAL MEDICINE 09/14/18 09/07/22 Virgilio Meehan DO [address] [place] [address] PCP - General FAMILY PRACTICE 09/08/22 Alexis Thurman MD [address] [place] [phone] [place] Cdl Driver CARDIOVASCULAR DISEASE 09/14/18 04/01/24 Cee Liu APRN, LAMINATION OPERATOR-C [address] [facility] [address] [place] [address] NURSE PRACTITIONER 05/27/22 Mame Osborn MD [address] [place], [place] [phone] INTERVENTIONAL CARDIOLOGY 05/10/24 documented as of this encounter
--- OUTSIDE RECORDS SUMMARY | 2025-02-02 12:07 | XMS_ITS | Encounter Summary ---
Author Organization [facility] Address [facility] [place] [address] Care Team Providers Care Hand Deicer Element Winder Name Role Phone Alexis Thurman MD Unavailable [phone] Willian Mendoza MD Primary Care Provider [phone] Cee Liu APRN, NAVIGATING OFFICER-C Unavailable [phone] Virgilio Meehan DO Primary Care Provider [phone] Mame Osborn MD Unavailable [phone] Encounter Details Date Type Department Care Team (Late st Contact Info) Description 06/24/2022 Hospital Orders Only [place] [address] [place] [address] Alexis Thurman MD [address] [place] [address] Social History Tobacco Use Types [...] Description 05/12/2025 1:30 PM CDT Office Visit [facility] [address] [place] [address] Cee Liu APRN, NAVIGATING OFFICER-C [address] [facility] [address] [phone] documented as of this encounter Visit Diagnoses Not on filedocumented in this encounter Care Teams Hand Deicer Element Winder Relationship Specialty Start Date End Date Willian Mendoza MD [address] [place] [address] PCP - General INTERNAL MEDICINE 09/14/18 09/07/22 Virgilio Meehan DO [address] [place] [address] PCP - General FAMILY PRACTICE 09/08/22 Alexis Thurman MD [address] [place] [phone] [place] Executive Relations Specialist CARDIOVASCULAR DISEASE 09/14/18 04/01/24 Cee Liu APRN, NAVIGATING OFFICER-C [address] [phone] NURSE PRACTITIONER 05/27/22 Mame Osborn MD [address] [place], [place] [phone] INTERVENTIONAL CARDIOLOGY 05/10/24 documented as of this encounter
--- OUTSIDE RECORDS SUMMARY | 2025-02-02 12:07 | XMS_ITS | Encounter Summary ---
Author Organization [facility] Address [facility] [place] [address] Care Team Providers Care Manager Qa Name Role Phone Alexis Thurman MD Unavailable [phone] Willian Mendoza MD Primary Care Provider [phone] Cee Liu APRN, CAKE ICER AND PACKER-C Unavailable Virgilio Meehan DO Primary Care Provider [phone] Mame Osborn MD Unavailable [phone] Encounter Details Date Type Department Care Team (Late st Contact Info) Description 04/07/2021 Abstract [facility] [address] [place] [address] [place] [address] [place] [id number] Social History Tobacco Use Types Packs/Day Years [...] 05/12/2025 1:30 PM CDT Office Visit [facility] [address] [place] [address] Cee Liu APRN, CAKE ICER AND PACKER-C [address] [phone] documented as of this encounter Visit Diagnoses Not on filedocumented in this encounter Care Teams Manager Qa Relationship Specialty Start Date End Date Willian Mendoza MD [address] [place] [address] PCP - General INTERNAL MEDICINE 09/14/18 09/07/22 Virgilio Meehan DO [address] [place] [address] PCP - General FAMILY PRACTICE 09/08/22 Alexis Thurman MD [address] [place] [phone] [place] Bureau Chief CARDIOVASCULAR DISEASE 09/14/18 04/01/24 Cee Liu APRN, CAKE ICER AND PACKER-C [address] [phone] NURSE PRACTITIONER 05/27/22 Mame Osborn MD [address] [place] [address] INTERVENTIONAL CARDIOLOGY 05/10/24 documented as of this encounter
--- OUTSIDE RECORDS SUMMARY | 2025-02-02 12:07 | XMS_ITS ---
Author Organization [facility] Address [address] [place], [place] [id number] Care Team Providers Care Assistant Food Service Director Name Role Phone MIRIAN MOSHER Unavailable [phone] Virgilio Meehan Unavailable Unavailable WILFREDO BRODERICK Unavailable [phone] REASON FOR VISIT *General care Medications Medication SIG (Take, Route, Frequency, Duration) Notes Start Date End Date Status cholecalciferol 0.025 MG Oral Capsule ORAL cholecalciferol 0.025 MG Ora l CapsuleOriginal Medicationcholecalciferol 0.025 MG Oral Capsule *Reorder from [employer] for eRx and Interaction Alerts* 04/07/20 14 Active 3 ML insulin glargine 100 UNT/ML Pen Injector [Lantus] 3 ML insulin glargine 100 UNT/ML Pen Injector [Lantus]Original Medication3 ML insulin glargine 100 UNT/ML Pen Injector [Lantus] *Reorder from [employer] for eRx and Interaction Alerts* 04/07/20 14 Active Nabumetone 500 MG Oral Tablet ORAL nabumetone 500 MG Oral TabletOriginal Medicationnabumetone 500 MG Oral Tablet *Reorder from [employer] for eRx and Interaction Alerts* 06/29/20 12 Active Losartan Potassium 100 MG Oral Tablet ORAL losartan potassium 100 MG Oral TabletOriginal Medicationlosartan potassium 100 MG Oral Tablet *Reorder from [employer] for eRx and Interaction Alerts* 04/07/20 14 Active Pravastatin Sodium 10 MG Oral Tablet ORAL pravastatin sodium 10 MG Ora l TabletOriginal Medicationpravastatin sodium 10 MG Oral Tablet *Reorder from [employer] for eRx and Interaction Alerts* 04/07/20 14 Active Spironolactone 25 MG Oral Tablet ORAL spironolactone 25 MG Oral TabletOriginal Medicationspironolactone 25 MG Oral Tablet *Reorder from [employer] for eRx and Interaction Alerts* 04/07/20 14 Active Allopurinol 300 MG Oral Tablet ORAL allopurinol 300 MG Oral TabletOriginal Medicationallopurinol 300 MG Oral Tablet *Reorder from [employer] for eRx and Interaction Alerts* 04/07/20 14 Active nortriptyline 50 MG Oral Capsule ORAL nortriptyline 50 MG Oral CapsuleOriginal Medicationnortriptyline 50 MG Oral Capsule *Reorder from [employer] for eRx and Interaction Alerts* 04/07/20 14 Active verapamil hydrochloride 40 MG Oral Tablet ORAL verapamil hydrochloride 40 M G Oral TabletOriginal Medicationverapamil hydrochloride 40 MG Oral Tablet *Reorder from [employer] for eRx and Interaction Alerts* 04/07/20 14 Active propranolol hydrochloride 40 MG Oral Tablet ORAL propranolol hydrochloride 40 MG Oral TabletOriginal Medicationpropranolol hydrochloride 40 MG Oral Tablet *Reorder from [employer] for eRx and Interaction Alerts* 04/07/20 14 Active levothyroxine sodium 0.1 MG Oral Capsule ORAL levothyroxine sodium 0.1 MG Oral CapsuleOriginal Medicationlevothyroxine sodium 0.1 MG Oral Capsule *Reorder from [employer] for eRx and Interaction Alerts* 04/07/20 14 Active esomeprazole 20 MG Injection INTRAVENOUS esomeprazole 20 MG InjectionOriginal Medicationesomeprazole 20 MG Injection *Reorder from [employer] for eRx and Interaction Alerts* 04/07/20 14 Active cinnamon bark 500 MG Oral Capsule ORAL cinnamon bark 500 MG Oral CapsuleOriginal Medicationcinnamon bark 500 MG Oral Capsule *Reorder from [employer] for eRx and Interaction Alerts* 04/07/20 14 Active ciclopirox 80 MG/ML Topical Solution CUTANEOUS ciclopirox 80 MG/ML Topical SolutionOriginal Medicationciclopirox 80 MG/ML Topical Solution *Reorder from [employer] for eRx and Interaction Alerts* 04/20/20 12 Active Encounters Encounter Location Date Provider Diagnosis [address] [id number] 01/02/2025 WILFREDO BRODERICK Tinea unguium B35.1 ; Acquired 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 ; Atherosclerosis of curyung arteries of extremities with intermittent claudication, bilateral [...] utilizing a #15 blade 01/02/2025 Atherosclerosis of curyung arteries of extremities with intermittent claudication, bilateral [...] pared utilizing a #15 blade Atherosclerosis of curyung ar teries of extremities with intermittent claudication, [...] reaction Next Appt Details Provider Name:WILFREDO MARTIN, 03/06/2025 01:30:00 PM, [address] [place] [address], [phone], Progress Notes * MATEUSZ MONROE ADOB:[birth year] (59 yo F)Acc No.[id number]:01/02/2025 Patient: S MATEUSZ SNIDER A Provider: Gavi BRODERICK :1965 A ge:59 Y S ex:Female Date:01/02/2025 Address:[address] [place], [place] [id number] Subjective: * Chief Complaints: * 1 . *General care. * HPI: H PI: General care P atient presents to the office for diabetic foot care. Patient states that their nails are thickened, elongated and painful. Patient states that it is aggravated by shoe gear. Onset is gradual., Patient denies taking blood thinners., Date last seen by Dr. Meehan was 12/2024., Initials [facility]. * ROS: G eneral / Constitutional: [...] difficulty speaking, dizziness. * Medical History: * Family History: F ather: PRN - [...] . S ister: SIB - Sister: . * Social History: M igrated Social History: M igrated Social History: History of tobacco use : , Smoking Status : Never smoked. * Medications: T aking Allopurinol 300 MG Oral Tablet ORAL , Notes to Pharmacist: allopurinol 300 MG Oral TabletOriginal Medicationallopurinol 300 MG Oral Tablet *Reorder from [facility] for eRx and Interaction Alerts*, Taking Spironolactone 25 MG Oral Tablet ORAL , Notes to Pharmacist: spironolactone 25 MG Oral TabletOriginal Medicationspironolactone 25 MG Oral Tablet *Reorder from [facility] for eRx and Interaction Alerts*, Taking Nabumetone 500 MG Oral Tablet ORAL , Notes to Pharmacist: nabumetone 500 MG Oral TabletOriginal Medicationnabumetone 500 MG Oral Tablet *Reorder from [facility] for eRx and Interaction Alerts*, Taking Pravastatin Sodium 10 MG Oral Tablet ORAL , Notes to Pharmacist: pravastatin sodium 10 MG Oral TabletOriginal Medicationpravastatin sodium 10 MG Oral Tablet *Reorder from [facility] for eRx and Interaction Alerts*, Taking Losartan Potassium 100 MG Oral Tablet ORAL , Notes to Pharmacist: losartan potassium 100 MG Oral TabletOriginal Medicationlosartan potassium 100 MG Oral Tablet *Reorder from [facility] for eRx and Interaction Alerts*, Taking 3 ML insulin glargine 100 UNT/ML Pen Injector [Lantus] , Notes to Pharmacist: 3 ML insulin glargine 100 UNT/ML Pen Injector [Lantus]Original Medication3 ML insulin glargine 100 UNT/ML Pen Injector [Lantus] *Reorder from [facility] for eRx and Interaction Alerts*, Taking cholecalciferol 0.025 MG Oral Capsule ORAL , Notes to Pharmacist: cholecalciferol 0.025 MG Oral CapsuleOriginal Medicationcholecalciferol 0.025 MG Oral Capsule *Reorder from [facility] for eRx and Interaction Alerts*, Taking ciclopirox 80 MG/ML Topical Solution CUTANEOUS , Notes to Pharmacist: ciclopirox 80 MG/ML Topical SolutionOriginal Medicationciclopirox 80 MG/ML Topical Solution *Reorder from [facility] for eRx and Interaction Alerts*, Taking cinnamon bark 500 MG Oral Capsule ORAL , Notes to Pharmacist: cinnamon bark 500 MG Oral CapsuleOriginal Medicationcinnamon bark 500 MG Oral Capsule *Reorder from [facility] for eRx and Interaction Alerts*, Taking esomeprazole 20 MG Injection INTRAVENOUS , Notes to Pharmacist: esomeprazole 20 MG InjectionOriginal Medicationesomeprazole 20 MG Injection *Reorder from [facility] for eRx and Interaction Alerts*, Taking levothyroxine sodium 0.1 MG Oral Capsule ORAL , Notes to Pharmacist: levothyroxine sodium 0.1 MG Oral CapsuleOriginal Medicationlevothyroxine sodium 0.1 MG Oral Capsule *Reorder from [facility] for eRx and Interaction Alerts*, Taking nortriptyline 50 MG Oral Capsule ORAL , Notes to Pharmacist: nortriptyline 50 MG Oral CapsuleOriginal Medicationnortriptyline 50 MG Oral Capsule *Reorder from [facility] for eRx and Interaction Alerts*, Taking propranolol hydrochloride 40 MG Oral Tablet ORAL , Notes to Pharmacist: propranolol hydrochloride 40 MG Oral TabletOriginal Medicationpropranolol hydrochloride 40 MG Oral Tablet *Reorder from [facility] for eRx and Interaction Alerts*, Taking verapamil hydrochloride 40 MG Oral Tablet ORAL , Notes to Pharmacist: verapamil hydrochloride 40 MG Oral TabletOriginal Medicationverapamil hydrochloride 40 MG Oral Tablet *Reorder from [facility] for eRx and Interaction Alerts*, Medication List reviewed and reconciled with the patient [...] - L85.1 3 . A therosclerosis of curyung arteries of extremities with intermittent claudication, bilateral [...] a #15 blade 3. A therosclerosis of curyung arteries of extremities with intermittent claudication, bilateral [...] starting to watch for possible rash/allergic reaction * Billing Information: * Visit Code: 99298 Office Visit, Est Pt., Level 3. * Procedure Codes: * Electronic signature of KINA BRODERICK DPM on 02/02/2025 at 12:07 PM CDT Sign off status: Pending * Provider: Gavi BRODERICK Date: 0 01/02/2025 Generated for Curt Reilly/Jose on: 0 02/02/2025 12:07 PM CDT History and Physical Notes * [...]
--- OUTSIDE RECORDS SUMMARY | 2025-02-02 12:07 | XMS_ITS | Referral Summary ---
Author Organization [address] Address [address] [place] [id number] Care Team Providers Care Information Assoc Name Role Phone Willian Mendoza MD Primary Care Provider [phone] Encounters Date Type Department Care Team Description 11/28/2024 Telephone [facility] of [address] [phone] Erika Mandel FRONT END ENGINEER 11/21/2024 Telephone [facility] [address] [phone] Anthony Castillo MD PA in [facility] Dexcom G7 sensor from Last 3 Months Allergies Active Allergy [...] mouth 2 (two) times a day Active bblalvaazwbn-Br-du on-minerals tablet Take 1 tablet by mouth [...] 36,000-114,000- 180,000 unit capsule 02/01/20 24 Active levothyroxine (SYNTHROID) 100 mcg tablet Take 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 E11.65 9 each 3 09/11/19 25 Active Ozempic 2 mg/dose (8 mg/3 mL) pen injector injectionIndicatio ns:Type 2 diabetes mellitus with hyperglycemia, with long-term current use of insulin (HCC) INJECT SUBCUTANEOUSLY 2 MG EVERY WEEK 9 mL 3 12/21/19 25 Active Active Problems Problem Noted Date Diagnosed Date Acquired hypothyroidism 03/17/2022 Assessment & Plan (08/07/2024 5:51 PM TENTER FRAME OPERATOR): Chronic, stable. Continue levothyroxine Update TFTs Assessment & Plan (08/10/2023 3:53 PM TENTER FRAME OPERATOR): Chronic, well-controlled Importance of taking levothyroxine [...] 04/17/2018 Assessment & Plan (08/07/2024 5:51 PM TENTER FRAME OPERATOR): Chronic, stable Update lipid profile Continue statin therapy Assessment & Plan (08/10/2023 3:53 PM TENTER FRAME OPERATOR): Chronic, well-controlled Continue statin therapy with Pravachol Assessment & Plan (01/17/2023 1:59 PM CDT): Chronic, well controlled Low fat Low cholesterol diet Exercise Continue statin therapy with Pravachol Assessment & Plan (03/17/2022 9:47 AM CDT): Chronic problem. On statin therapy, no changes. Assessment & Plan (10/28/2021 1:21 PM TENTER FRAME OPERATOR): Chronic problem. On statin therapy, no [...] Pravachol Assessment & Plan (09/27/2019 9:29 AM TENTER FRAME OPERATOR): LDL at goal. Trigs elevated. Continue [...] therapy Assessment & Plan (08/07/2018 1:59 PM TENTER FRAME OPERATOR): At goal on current medications. Assessment [...] dicussed Assessment & Plan (09/27/2019 9:29 AM TENTER FRAME OPERATOR): Continues to do well with wt [...] adjusted. Assessment & Plan (08/07/2018 1:59 PM TENTER FRAME OPERATOR): Continues to gain weight. Little attempt at diet and exercise. Reviewed importance of avoiding juice, soda, high fat, high carb foods. Assessment & Plan (10/05/2017 2:49 PM TENTER FRAME OPERATOR): Diet and exercise were discussed. 1200 Calorie diet advised 45-60 min aerobic / resistance exercise most days of the week recommended. Bariatric surgery medically indicated Assessment & Plan (07/20/2017 4:17 PM TENTER FRAME OPERATOR): Importance of following diet and exercising [...] changes. Assessment & Plan (10/28/2021 1:21 PM TENTER FRAME OPERATOR): Controlled on current medications, no changes. [...] microalbumin Assessment & Plan (09/27/2019 9:29 AM TENTER FRAME OPERATOR): Controlled on current medications. Continue plan. Assessment & Plan (06/06/2019 2:49 PM CDT): Controlled on current medications. Continue plan. Assessment & Plan (11/01/2018 2:04 PM CDT): Goal blood pressure is less than 140/85 Low salt diet recommended Daily aerobic exercise Continue current meds, including ALYCE-I or ARB Assessment & Plan (08/07/2018 2:00 PM TENTER FRAME OPERATOR): Controlled on current medications. Assessment & Plan (04/17/2018 2:07 PM CDT): Goal blood pressure is less than 140/85 Low salt diet recommended Daily aerobic exercise Continue current meds, including ALYCE-I or ARB Assessment & Plan (10/05/2017 2:50 PM TENTER FRAME OPERATOR): Goal blood pressure is less than 140/85 Low salt diet recommended Daily aerobic exercise Continue current meds, including ALYCE-I or ARB Assessment & Plan (07/20/2017 4:18 PM TENTER FRAME OPERATOR): Controlled on current medications. Assessment & Plan (04/06/2017 4:28 PM CDT): At goal on current medications. Hyperlipidemia 09/19/2012 Overview (11/24/2016): HYPERLIPIDEMIA NEC/NOS Assessment & Plan (06/06/2019 2:49 PM CDT): Lipid panel ordered Assessment & Plan (07/20/2017 4:18 PM TENTER FRAME OPERATOR): Will check lipid panel Assessment & Plan (04/06/2017 4:28 PM CDT): Check labs and focus on low fat foods Furuncle of trunk 06/28/2012 Overview (11/23/2016): Carbuncle and furuncle of trunk Type 2 diabetes mellitus 06/28/2012 Overview (11/24/2016): DMII WO CMP UNCNTRLD Assessment & Plan (08/07/2024 5:50 PM TENTER FRAME OPERATOR): Chronic, stable Diet and exercise were emphasized Continue Farxiga and Ozempic Assessment & Plan (02/13/2024 4:29 PM CDT): Chronic, well-controlled. Continue Ozempic 2 mg weekly Farxiga 10 mg Importance of diet and exercise was discussed Assessment & Plan (08/10/2023 3:52 PM TENTER FRAME OPERATOR): Chronic, well-controlled, with some postprandial hyperglycemia [...] Farxita Assessment & Plan (07/19/2022 1:34 PM TENTER FRAME OPERATOR): Hba1c was Lab Results Component Value [...] today. Assessment & Plan (10/28/2021 1:43 PM TENTER FRAME OPERATOR): Chronic problem, not at goal. Increase [...] breakfast Assessment & Plan (09/27/2019 9:31 AM TENTER FRAME OPERATOR): A1c increased to 7.8. Pattern acceptable [...] goal hba1c is under 7.0 to prevent retirement diabetes complications ( eye , kidney and [...] discussed. Assessment & Plan (08/07/2018 2:02 PM TENTER FRAME OPERATOR): A1c 8.1. Baseline BG reported at [...] discussed. Assessment & Plan (10/05/2017 2:51 PM TENTER FRAME OPERATOR): Hba1c was . 9.6 . today, [...] discussed. Assessment & Plan (07/20/2017 4:17 PM TENTER FRAME OPERATOR): A1c improved 8.7, ~ 2%. Mostly [...] on file Legal Sex Female 10:22 AM TENTER FRAME OPERATOR Gender Identity Not on file Sexual Orientation Straight 08/07/2024 2: 11 PM TENTER FRAME OPERATOR Last Filed Vital Signs Vital Sign Reading Time Taken Comments Blood Pressure 100/68 08/07/2024 2:37 PM TENTER FRAME OPERATOR Pulse 66 08/07/2024 2:37 PM TENTER FRAME OPERATOR Temperature - - Respiratory Rate 17 08/07/2024 2:37 PM TENTER FRAME OPERATOR Oxygen Saturation - - Inhaled Oxygen Concentration - - Weight 109 kg (240 lb 6.4 oz) 08/07/2024 2:37 PM TENTER FRAME OPERATOR Height 170.2 cm (5' 7) 08/07/2024 2:37 PM TENTER FRAME OPERATOR Body Mass Index 37.65 08/07/2024 2:37 PM TENTER FRAME OPERATOR Plan of Treatment Not on file Procedures Procedure Name Priority Date/Time Associated Diagnosis Comments EGFR Routine 08/07/2024 3:23 PM TENTER FRAME OPERATOR Type 2 diabetes mellitus with hyperglycemia, with long-term current use of insulin (HCC) POCT HEMOGLOBIN A1C Routine 08/07/2024 2 :38 PM TENTER FRAME OPERATOR Type 2 diabetes mellitus with hyperglycemia, with long-term current use of insulin (HCC) HM DIABETES EYE EXAM Routine 10/11/2023 9:29 AM TENTER FRAME OPERATOR ALBUMIN CREATININE RATIO, URINE Routine 08/28/2023 7:38 AM TENTER FRAME OPERATOR LIPID PANEL Routine 08/10/2023 1:53 PM TENTER FRAME OPERATOR Hyperlipidemia associated with type 2 diabetes mellitus (HCC) from Last 3 Months or Most Recently Relevant to Health Maintenance Results * (ABNORMAL) eGFR (08/07/2024 3:23 PM TENTER FRAME OPERATOR) eGFR 35(L) >=60 mL/min/1. 73 m2 [...] last reviewed 2021. Blood 08/07/2024 3:23 PM TENTER FRAME OPERATOR 08/07/2024 6:55 PM TENTER FRAME OPERATOR Result [facility] Anthony Castillo MD LAB BLOOD ORDERABLES Final Resul t [facility] [id number] [address] Department [place] [address] * (ABNORMAL) POCT hemoglobin A1c (08/07/2024 2:38 PM TENTER FRAME OPERATOR) Hemoglobin A1C, POC 7.1 4.0 - 5.6 % Comment:None Capillary blood 08/07/2024 2 :38 PM TENTER FRAME OPERATOR Result [facility] Anthony Castillo MD POINT OF CARE TEST ORDERABLES Fi nal Result * (ABNORMAL) DIABETES EYE EXAM (10/11/2023 9:29 AM TENTER FRAME OPERATOR) Result [facility] Historical Provider HEALTH MAINTENANCE Final Result * (ABNORMAL) Albumin Creatinine Ratio, Urine (08/28/2023 7:38 AM TENTER FRAME OPERATOR) SCRIBED Creatinine, Urine 75.44 40 - 278 EXTERNAL LAB SCRIBED Microalbumin 13.4(A) 0.0 - 11.9 EXTERNAL LAB SCRIBED Microalb/Creat Ratio 0.18 0 - 0.20 EXTERNAL LAB Urine 08/28/2023 7:38 AM TENTER FRAME OPERATOR Result [facility] Historical Provider LAB URINE ORDERABLES Edit ed Result - Final EXTERNAL LAB * (ABNORMAL) Lipid panel (08/10/2023 1:53 PM TENTER FRAME OPERATOR) Cholesterol 164 30 - 199 mg/dL [...] ratio 3 [facility] Blood 08/10/2023 1:53 PM TENTER FRAME OPERATOR 08/10/2023 7:31 PM TENTER FRAME OPERATOR us Anthony Castillo MD LAB BLOOD ORDERABLES Final Resul t OLGA [id number] [address] Department of Laboratories [place], [place] [phone] from Last 3 Months or Most Recently Relevant to Health Maintenance Insurance IDPA [facility] MEDICARE ADVANTAGE [facility] MEDICARE ADVANTAGE IDPA Care Teams Information Assoc Relationship Specialty Start Date End Date Willian Mendoza MD PCP - General 02/18/16
--- OUTSIDE RECORDS SUMMARY | 2025-02-02 12:07 | XMS_ITS | Data Portability ---
Author Organization [facility] Address [address] [place] [address] Care Team Providers Care Hoistman Name Role Phone ELKE JACOBO Primary Care [...] scula r No observ ation record ed. [facility]) [address] [place], [address], 04/10/2022 00:58:08 Result Notes None recorded. Problems Name Problem SNOMED Code Status Onset Date Resolution Date Notes Provider Name and Address Organization Details Recorded Time SNOMED CT Concept Completed 201503/22/2022 Encntr for general adult medical exam w/o abnormal findings; Recorded Elsewhere : No Locati on: [facility] So urce: EHR Chron ic: N Practic e ID: [id number] Bill able Time: 03:30:[address] [facility] 2 16:06:09 Menopaus e present [id number] Completed 201503/22/2022 Menopausa l and female climacter ic states;Re corded Elsewhere : No Locati on: [facility] So urce: EHR Chron ic: N Practic e ID: [id number] Bill able Time: 01:00:[address] [facility] 2 16:06:09 Screenin g for malignan t neoplasm of rectum Completed 201503/22/2022 Encounter for screening for malignant neoplasm of rectum;Re corded Elsewhere : No Locati on: [facility] So urce: EHR Chron ic: N Practic e ID: [id number] Bill able Time: 03:30:00 PM Cecilia Anne [facility] 2 16:06:[address] Concept Completed 201503/22/2022 Encntr for manager gyn exam (general) (routine) w/o abn findings; Recorded Elsewhere : No Locati on: [facility] So urce: EHR Chron ic: N Practic e ID: [id number] Bill able Time: 03:30:[address] [facility] 2 16:06:09 Screenin g for malignan t neoplasm of cervix Completed 201503/22/2022 Encounter for screening for malignant neoplasm of cervix;Re corded Elsewhere : No Locati on: [facility] So urce: EHR Chron ic: N Practic e ID: [id number] Bill able Time: 03:30:00 PM [facility]ilia [facility] 2 16:06:09 Congenit al malforma tion [id number] Completed 201503/22/2022 Congenita l anomaly;R ecorded Elsewhere : No Locati on: [facility] So urce: EHR Chron ic: N Practic e ID: [id number] Bill able Time: 03:30:00 PM Cecilia Rangel null, [facility] 16:06:09 Problem Notes None recorded. Procedures Surgical History Date Name Laterality Status Provider Name and Address Organization Details Recorded Time 08/21/19 19 laparoscopic sleeve gastrectomy completed [facility] 03/23/2022 15:05:08 08/21/19 17 operation on mandible completed [facility] 03/23/2022 15:04:14 insertion of ureteral stent with ureterotomy completed [facility] 03/23/2022 15:03:53 Unlisted px femur/knee completed [facility] 03/23/2022 15:04:37 perinasal sinusotomy completed [facility] 03/23/2022 15:04:43 Carpal tunnel surgery completed [facility] 03/23/2022 15:04:53 Imaging Results None recorded. Procedure Notes None recorded. Medical Equipment None [...] every day in the evening 04/16 completed [facility] ed Elsewher e: No [facility] odify By: hiral aMrtin ncounter DateTime : 04/05/20 16 12:01:40 PM Not Available Not Available Not Available Neurontin 300 mg capsule take 1 capsule by oral route 3 times every day 04/28 completed Prescrib ed Elsewher e: No [facility]at [facility] odify By: wendy Martin ncounter DateTime : 03/08/20 16 09:00:54 AM Not Available Not Available Not Available verapamil 40 mg tablet take 1 tablet by oral route 3 times every day 03/23 completed Prescrib ed Elsewher e: Yes Loca tion: [facility] odify By: [email or web address] trick En counter [...] Prescrib ed Elsewher e: Yes Loca tion: [facility] odify By: kmkirkpa trick En counter DateTime : 01/27/20 16 01:00:00 PM Not Available Not Available Not Available propranol ol 60 mg tablet take 1 tablet by oral route 2 times every day 03/23 completed Prescrib ed Elsewher e: Yes Loca tion: [facility] odify By: [email or web address] trick En counter [...] Prescrib ed Elsewher e: Yes Loca tion: [facility] odify By: [email or web address] trick En counter DateTime : 01/27/20 16 01:00:00 PM Not Available Not Available Not Available glimepiri de 1 mg tablet take 1 tablet by oral route every day 03/23 completed Prescrib ed Elsewher e: Yes Loca tion: [facility] odify By: wendy guevarauntean DateTime : 04/28/20 16 03:30:00 PM Not Available Not Available Not Available levothyro xine 100 mcg tablet active Not Available Not Available Not Available ropinirol e 0.25 mg tablet take 1 tablet by oral route every day q 4-6hrs prn 03/23 completed Prescrib ed Elsewher e: Yes Loca tion: [facility] odify By: wendy Martin ncounter DateTime : 04/28/20 16 03:30:00 PM Not Available Not Available Not Available Humalog U-100 Insulin 100 unit/mL subcutane ous solution inject by subcutan eous route per prescrib er's instruct ions. Insulin dosing requires individu alizatio n. 03/23 completed Prescrib ed Elsewher e: Yes Loca tion: [facility] odify By: ammauricio Martin ncounter DateTime : 06/01/20 16 03:30:00 PM Not [...] Elsewher e: No Locat ion: [facility] odify By: wendy Martin ncounter DateTime : 01/27/20 16 01:00:00 PM Not Available Not Available Not Available ranitidin e 300 mg capsule take 1 capsule by oral route every day at bedtime 03/23 completed Prescrib ed Elsewher e: Yes [facility]oca [facility] odify By: [email or web address] trick En counter DateTime : 01/27/20 16 01:00:00 PM Not Available Not Available Not Available pravastat in 20 mg tablet take 2 tablet by oral route every day active Not Available Not Available No t Available Estrace 0.5 mg tablet take 1 tablet by oral route every day 06/01 completed Prescrib ed Elsewher e: No Locat ion: [facility] odify By: ammauricio Martin ncounter DateTime : 03/31/20 16 04:45:00 PM Not Available Not Available Not Available cefdinir 300 mg capsule 03/23 completed Not Available Not Available Not Available losartan 100 mg tablet take 1 tablet by oral route every day 03/23 completed Prescrib ed Elsewher e: Yes Loca tion: [facility] odify By: [email or web address] trick En counter DateTime : 01/27/20 16 01:00:00 PM Not Available Not Available Not Available fluticaso ne propionat e 50 mcg/actua tion nasal spray,karen pension active Not Available Not Available Not Available nortripty line 50 mg capsule take 1 capsule by oral route 2 times every day 2015 active Prescrib ed Elsewher e: Yes Loca tion: [facility] odify By: [email or web address] trick En counter DateTime : 01/27/20 16 01:00:00 PM Not Available Not Available Not Available Estrace 1 mg tablet take 1 tablet by oral route every day 2015 active Prescrib ed Elsewher e: No Locat ion: [facility] odify By: tgingric h Encoun ter DateTime : 04/28/20 16 03:30:00 PM Not Available Not Available Not Available progester one micronize d 100 mg capsule take 1 capsule by oral route every day for 10 days in the evening 05/07 completed Prescrib ed Elsewher e: Yes Loca tion: [facility] odify By: wendy carbone DateTime : 04/28/20 16 03:30:00 PM Not Available Not Available Not Available amoxicill in 875 mg-potass ium clavulana te 125 mg tablet 03/23 completed Not Available Not Available Not Available iron 18 mg tablet 2015 active Prescrib ed Elsewher e: Yes Loca tion: [facility] odify By: [email or web address] trick En counter DateTime : 01/27/20 16 01:00:00 PM Not Available Not Available Not Available magnesium 200 mg tablet 2015 active Prescrib ed Elsewher e: Yes Loca tion: [facility] odify By: [email or web address] trick En counter DateTime : 01/27/20 16 01:00:00 PM Not Available Not Available Not Available Vitamin D3 25 mcg (1,000 unit) tablet take 1 by Oral route once for 2 months then draw labs 2015 active Prescrib ed Elsewher e: Yes Loca tion: [facility] odify By: [email or web address] trick En counter DateTime : 01/27/20 16 01:00:00 PM Not Available Not Available Not Available nitrofura ntoin monohydra te/macroc rystals 100 mg capsule active Not Available Not Available Not Available duloxetin e 20 mg capsule,d elayed release active Not Available Not Available Not Available Cinnamon 500 mg capsule 2015 active Prescrib ed Elsewher e: Yes Loca tion: [facility] odify By: [email or web address] trick En counter DateTime : 01/27/20 16 01:00:00 PM Not Available Not Available Not Available Lantus Solostar U-100 Insulin 100 unit/mL (3 mL) subcutane ous pen active Not Available Not Available Not Available Tirosint 75 mcg capsule take 1 capsule by oral route every day 04/28 completed Prescrib ed Elsewher e: Yes Loca tion: [facility] odify By: [email or web address] Martin ncounter DateTime : 01/27/20 16 01:00:00 PM Not Available Not Available Not Available Bydureon 2 mg subcutane ous extended release suspensio n inject by subcutan eous route every 7 days once 03/23 completed Prescrib ed Elsewher e: Yes Loca tion: [facility] odify By: [email or web address] trick En counter [...] Updated DateTime 03/23/2022 168.91 cm 49.1 kg/m2 121167.0 4 g 136 mm[Hg] 80 mm[Hg] Cecilia Rangel [facility] 14:58:40 Social History Question Answer Notes LastModified by Organizat ion Details LastModified Time Tobacco Smoking Status Never Smoker Cecilia Rangel [facility], [facility] 03/23/2022 15:03:27 Are You Blind Or Do You Have [...] Yes Information not available 03/23/2022 Do You Use Sunscreen Routinely? Yes Information not available 03/23/2022 Do You Have Difficulty Walking Or Climbing Stairs? No Information not available 03/23/2022 Sex: Unknown Functional Status Question Answer Note LastModified by Organizat ion Details LastModified Time Do you use any illicit or recreational drugs? No Information not available 03/23/2022 What is your level of alcohol consumption? Occasional Information not available 03/23/2022 Are you able to walk? YESWOREST Information not available 03/23/2022 Are you able to care for yourself? Yes Information n ot available 03/23/2022 Do you have difficulty dressing or bathing? No Information not available 03/23/2022 What is your exercise level? Occasional Information not available 03/23/2022 Mental Status Question Answer Note LastModified by Organization D etails LastModified Time Do you feel stressed (tense, restless, nervous, or anxious, or unable to sleep at night)? [id number] Information not available 03/23/2022 Family History Relationship Description Onset Age of [...] SNOMED-CT Code Diagnosis ICD10 Code Diagnosis Note [id number] Kim Tovar [facility] [address] [address] 03/23/2022 14:11:49 03/24/2022 16:35:54 Gynecologic examination [id number] Z01.419 Take Calcium with Vitamin D 12-1500mg daily. Do monthly self breast exams. It is advised to get annual flu shot in the fall and she could obtain at [facility] or [facility] clinic. If you haven't received the Tdap vaccine [...] Labs UTD PCPMammo UTD PCP Inguinal pain [id number] R10.2 Left sided groin pain.Exam difficult due [...] Recorded Advance Directives Directive None Recorded Payers Insurance Date Sequence Insurance Name Policy Number Policy Arias Covered Member ID Arias Member ID Guarantor Name 03/24/2022 2 [place] [facility] Keri Stone [id number] Keri Stone 03/24/2022 1 [facility] [id number] Keriange Stone 03/24/2022 2 [place] Keri Stone [id number] Keriange Stone 03/24/2022 1 [facility] (MEDICARE REPLACEMENT/A DVANTAGE - PPO) Keri Stone [id number] Keri Stone Notes Date Note Type Note Provider Name and Address Organization Details Recorded Time 03/23/2022 text/html 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 Kim Tovar, [facility] [address], [place], [address], [place] - [facility] 03/24/2022 16:16:15 OBGyn Episode No OBEpisode recorded.
--- OUTSIDE RECORDS SUMMARY | 2025-02-02 12:08 | XMS_ITS | Clinical Summary ---
Author Organization [facility] Address [address] [place] [address] Care Team Providers Care Solo Musician Name Role Phone Willian Mendoza MD Primary Care Provider [phone] Allergies Active Allergy Reactions Criticality Noted Date [...] mouth 2 (two) times a day Active uqpcmmvqjahj-Vr-hd on-minerals tablet Take 1 tablet by mouth [...] long-term current use of insulin ([facility]) USE FOR TESTING FOUR TIMES A DAY DIRECTED 400 each 3 03/21/20 22 Active pen needle, diabetic (TRUEplus Pen Needle) 31 gauge x 3/16 needle Use to inject insulin up to 5 times daily 450 each 2 03/21/20 22 Active alcohol swabs (BD Alcohol Swabs) pads, medicatedIndicatio ns:Type 2 diabetes mellitus with hyperglycemia, with long-term current use of insulin ([facility]) USE DIRECTED 4 TIMES DAILY 400 each [...] 1 tablet (100 mcg total) by mouth can closing machine operator before breakfast 90 tablet 3 08/07/20 24 [...] 03/17/2022 Assessment & Plan (08/07/2024 5:51 PM SUSTAIN ENGINEER): Chronic, stable. Continue levothyroxine Update TFTs Assessment & Plan (08/10/2023 3:53 PM SUSTAIN ENGINEER): Chronic, well-controlled Importance of taking levothyroxine on [...] 04/17/2018 Assessment & Plan (08/07/2024 5:51 PM SUSTAIN ENGINEER): Chronic, stable Update lipid profile Continue statin therapy Assessment & Plan (08/10/2023 3:53 PM SUSTAIN ENGINEER): Chronic, well-controlled Continue statin therapy with Pravachol Assessment & Plan (01/17/2023 1:59 PM CDT): Chronic, well controlled Low fat Low cholesterol diet Exercise Continue statin therapy with Pravachol Assessment & Plan (03/17/2022 9:47 AM CDT): Chronic problem. On statin therapy, no changes. Assessment & Plan (10/28/2021 1:21 PM SUSTAIN ENGINEER): Chronic problem. On statin therapy, no changes. [...] Pravachol Assessment & Plan (09/27/2019 9:29 AM SUSTAIN ENGINEER): LDL at goal. Trigs elevated. Continue statin [...] therapy Assessment & Plan (08/07/2018 1:59 PM SUSTAIN ENGINEER): At goal on current medications. Assessment & [...] dicussed Assessment & Plan (09/27/2019 9:29 AM SUSTAIN ENGINEER): Continues to do well with wt loss [...] adjusted. Assessment & Plan (08/07/2018 1:59 PM SUSTAIN ENGINEER): Continues to gain weight. Little attempt at diet and exercise. Reviewed importance of avoiding juice, soda, high fat, high carb foods. Assessment & Plan (10/05/2017 2:49 PM SUSTAIN ENGINEER): Diet and exercise were discussed. 1200 Calorie diet advised 45-60 min aerobic / resistance exercise most days of the week recommended. Bariatric surgery medically indicated Assessment & Plan (07/20/2017 4:17 PM SUSTAIN ENGINEER): Importance of following diet and exercising discussed. [...] changes. Assessment & Plan (10/28/2021 1:21 PM SUSTAIN ENGINEER): Controlled on current medications, no changes. Assessment [...] microalbumin Assessment & Plan (09/27/2019 9:29 AM SUSTAIN ENGINEER): Controlled on current medications. Continue plan. Assessment & Plan (06/06/2019 2:49 PM CDT): Controlled on current medications. Continue plan. Assessment & Plan (11/01/2018 2:04 PM CDT): Goal blood pressure is less than 140/85 Low salt diet recommended Daily aerobic exercise Continue current meds, including ALYCE-I or ARB Assessment & Plan (08/07/2018 2:00 PM SUSTAIN ENGINEER): Controlled on current medications. Assessment & Plan (04/17/2018 2:07 PM CDT): Goal blood pressure is less than 140/85 Low salt diet recommended Daily aerobic exercise Continue current meds, including ALYCE-I or ARB Assessment & Plan (10/05/2017 2:50 PM SUSTAIN ENGINEER): Goal blood pressure is less than 140/85 Low salt diet recommended Daily aerobic exercise Continue current meds, including ALYCE-I or ARB Assessment & Plan (07/20/2017 4:18 PM SUSTAIN ENGINEER): Controlled on current medications. Assessment & Plan (04/06/2017 4:28 PM CDT): At goal on current medications. Hyperlipidemia 09/19/2012 Overview (11/24/2016): HYPERLIPIDEMIA NEC/NOS Assessment & Plan (06/06/2019 2:49 PM CDT): Lipid panel ordered Assessment & Plan (07/20/2017 4:18 PM SUSTAIN ENGINEER): Will check lipid panel Assessment & Plan (04/06/2017 4:28 PM CDT): Check labs and focus on low fat foods Furuncle of trunk 06/28/2012 Overview (11/23/2016): Carbuncle and furuncle of trunk Type 2 diabetes mellitus 06/28/2012 Overview (11/24/2016): DMII WO CMP UNCNTRLD Assessment & Plan (08/07/2024 5:50 PM SUSTAIN ENGINEER): Chronic, stable Diet and exercise were emphasized Continue Farxiga and Ozempic Assessment & Plan (02/13/2024 4:29 PM CDT): Chronic, well-controlled. Continue Ozempic 2 mg weekly Farxiga 10 mg Importance of diet and exercise was discussed Assessment & Plan (08/10/2023 3:52 PM SUSTAIN ENGINEER): Chronic, well-controlled, with some postprandial hyperglycemia Continue [...] Farxita Assessment & Plan (07/19/2022 1:34 PM SUSTAIN ENGINEER): Hba1c was Lab Results Component Value Date [...] today. Assessment & Plan (10/28/2021 1:43 PM SUSTAIN ENGINEER): Chronic problem, not at goal. Increase NL [...] breakfast Assessment & Plan (09/27/2019 9:31 AM SUSTAIN ENGINEER): A1c increased to 7.8. Pattern acceptable during the day but elevated in evening due to pattern of eating. Diet and importance of evaluating ac/pc BG trends reviewed. Continue Kiesha, Oscar, Doris. Advised consistency with how Novolog is being [...] discussed. Assessment & Plan (08/07/2018 2:02 PM SUSTAIN ENGINEER): A1c 8.1. Baseline BG reported at goal. [...] discussed. Assessment & Plan (10/05/2017 2:51 PM SUSTAIN ENGINEER): Hba1c was . 9.6 . today, indicating [...] discussed. Assessment & Plan (07/20/2017 4:17 PM SUSTAIN ENGINEER): A1c improved 8.7, ~ 2%. Mostly from [...] Team Description 11/28/2024 Telephone [facility] [address] [address] Erika Mandel LPN 11/21/2024 Telephone [facility] [address] [address] Anthony Castillo MD PA in [facility] Dexcom G7 sensor from Last 3 Months Surgical History Surgery [...] on file Legal Sex Female 10:22 AM SUSTAIN ENGINEER Gender Identity Not on file Sexual Orientation Straight 08/07/2024 2: 11 PM SUSTAIN ENGINEER Obstetrics History Last Filed Vital Signs Vital Sign Reading Time Taken Comments Blood Pressure 100/68 08/07/2024 2:37 PM SUSTAIN ENGINEER Pulse 66 08/07/2024 2:37 PM SUSTAIN ENGINEER Temperature - - Respiratory Rate 17 08/07/2024 2:37 PM SUSTAIN ENGINEER Oxygen Saturation - - Inhaled Oxygen Concentration - - Weight 109 kg (240 lb 6.4 oz) 08/07/2024 2:37 PM SUSTAIN ENGINEER Height 170.2 cm (5' 7) 08/07/2024 2:37 PM SUSTAIN ENGINEER Body Mass Index 37.65 08/07/2024 2:37 PM SUSTAIN ENGINEER Plan of Treatment Health Maintenance Due Date [...] Diagnosis Comments EGFR Routine 08/07/2024 3:23 PM SUSTAIN ENGINEER Type 2 diabetes mellitus with hyperglycemia, with long-term current use of insulin (HCC) POCT HEMOGLOBIN A1C Routine 08/07/2024 2 :38 PM SUSTAIN ENGINEER Type 2 diabetes mellitus with hyperglycemia, with long-term current use of insulin (HCC) HM DIABETES EYE EXAM Routine 10/11/2023 9:29 AM SUSTAIN ENGINEER ALBUMIN CREATININE RATIO, URINE Routine 08/28/2023 7:38 AM SUSTAIN ENGINEER LIPID PANEL Routine 08/10/2023 1:53 PM SUSTAIN ENGINEER Hyperlipidemia associated with type 2 diabetes mellitus (HCC) from Last 3 Months or Most Recently Relevant to Health Maintenance Results * (ABNORMAL) eGFR (08/07/2024 3:23 PM SUSTAIN ENGINEER) eGFR 35(L) >=60 mL/min/1. 73 m2 Comment: [...] last reviewed 2021. Blood 08/07/2024 3:23 PM SUSTAIN ENGINEER 08/07/2024 6:55 PM SUSTAIN ENGINEER Result [facility] Anthony Castillo MD LAB BLOOD ORDERABLES Final Resul t OLGA [id number] [address] Department of Laboratories [place] [id number] * (ABNORMAL) POCT hemoglobin A1c (08/07/2024 2:38 PM SUSTAIN ENGINEER) Pathologist [facility] Hemoglobin A1C, POC 7.1 4.0 - 5.6 % Comment:None Capillary blood 08/07/2024 2 :38 PM SUSTAIN ENGINEER Result [facility] Anthony Castillo MD POINT OF CARE TEST ORDERABLES Fi nal Result * (ABNORMAL) DIABETES EYE EXAM (10/11/2023 9:29 AM SUSTAIN ENGINEER) Result [facility] Isis Salgado MD HEALTH MAINTENANCE Final Result * (ABNORMAL) Albumin Creatinine Ratio, Urine (08/28/2023 7:38 AM SUSTAIN ENGINEER) SCRIBED Creatinine, Urine 75.44 40 - 278 EXTERNAL LAB SCRIBED Microalbumin 13.4(A) 0.0 - 11.9 EXTERNAL LAB SCRIBED Microalb/Creat Ratio 0.18 0 - 0.20 EXTERNAL LAB Urine 08/28/2023 7:38 AM SUSTAIN ENGINEER us Historical Provider LAB URINE ORDERABLES Edit ed Result - Final EXTERNAL LAB * (ABNORMAL) Lipid panel (08/10/2023 1:53 PM SUSTAIN ENGINEER) Cholesterol 164 30 - 199 mg/dL OLGA [...] 3 [facility]NER Blood 08/10/2023 1:53 PM SUSTAIN ENGINEER 08/10/2023 7:31 PM SUSTAIN ENGINEER us Anthony Castillo MD LAB BLOOD ORDERABLES Final Resul t [place] [id number] [address] Department [place] [address] from Last 3 Months or Most Recently Relevant to Health Maintenance Insurance [facility] MEDICARE ADVANTAGE [facility] MEDICARE ADVANTAGE IDPA Care Teams Solo Musician Relationship Specialty Start Date End Date Willian Mendoza MD PCP - General 02/18/16
--- OUTSIDE RECORDS SUMMARY | 2025-02-02 12:08 | XMS_ITS | Encounter Summary ---
Author Organization [facility] Address [facility] [place] [address] Care Team Providers Care Business Process Modeler Name Role Phone Cee Liu APRN, PURCHASING MANAGER-C Unavailable [phone] Virgilio Meehan DO Primary Care Provider [phone] Mame Osborn MD Unavailable [phone] Encounter Details Date Type Department Care Team (Late Contact Info) Description 11/12/2024 Abstract [facility] [address] [place] [address] Ella Witt MD [address] [place] [address] Social History Tobacco Use Types Packs/Day Years [...] Description 05/12/2025 1:30 PM CDT Office Visit [facility] eld [address] [place] [address] Cee Liu APRN, PURCHASING MANAGER-C [address] [facility] [address] [place] [phone] documented as of this encounter Visit Diagnoses Not on filedocumented in this encounter Care Teams Business Process Modeler Relationship Specialty Start Date End Date Virgilio Meehan DO [address] [place] [address] PCP - General FAMILY PRACTICE 09/08/22 Cee Liu, DENTAL CREAM MAKER, PURCHASING MANAGER-C [address] [facility] [address] [place] [address] NURSE PRACTITIONER 05/27/22 Mame Osborn MD [address] [place] [address] INTERVENTIONAL CARDIOLOGY 05/10/24 documented as of this encounter
--- OUTSIDE RECORDS SUMMARY | 2025-02-02 12:08 | XMS_ITS | Patient Health Record ---
Author Organization [facility] Address [address] [place], [place] [address] Care Team Providers Care Petroleum Refining Equipment Operator Name Role Phone MIRIAN MOSHER Unavailable [phone] Virgilio Meehan Unavailable Unavailable DIANE ADRIEN Unavailable [phone] WILFREDO BRODERICK Unavailable [phone] Allergies No Known Allergies Reason For Referral No Information Medications Medication SIG (Take, Route, Frequency, Duration) Notes Start Date End Date Status cholecalciferol 0.025 MG Oral Capsule ORAL cholecalciferol 0.025 MG Ora l CapsuleOriginal Medicationcholecalciferol 0.025 MG Oral Capsule *Reorder from [employer] for eRx and Interaction Alerts* 04/07/20 14 Active 3 ML insulin glargine 100 UNT/ML Pen Injector [Lantus] 3 ML insulin glargine 100 UNT/ML Pen Injector [Lantus]Original Medication3 ML insulin glargine 100 UNT/ML Pen Injector [Lantus] *Reorder from [employer] for eRx and Interaction Alerts* 04/07/20 14 Active cinnamon bark 500 MG Oral Capsule ORAL cinnamon bark 500 MG Oral CapsuleOriginal Medicationcinnamon bark 500 MG Oral Capsule *Reorder from [employer] for eRx and Interaction Alerts* 04/07/20 14 Active ciclopirox 80 MG/ML Topical Solution CUTANEOUS ciclopirox 80 MG/ML Topical SolutionOriginal Medicationciclopirox 80 MG/ML Topical Solution *Reorder from [employer] for eRx and Interaction Alerts* 04/20/20 12 Active Nabumetone 500 MG Oral Tablet ORAL nabumetone 500 MG Oral TabletOriginal Medicationnabumetone 500 MG Oral Tablet *Reorder from [facility] for eRx and Interaction Alerts* 06/29/20 12 Active verapamil hydrochloride 40 MG Oral Tablet ORAL verapamil hydrochloride 40 M G Oral TabletOriginal Medicationverapamil hydrochloride 40 MG Oral Tablet *Reorder from [facility] for eRx and Interaction Alerts* 04/07/20 14 Active propranolol hydrochloride 40 MG Oral Tablet ORAL propranolol hydrochloride 40 MG Oral TabletOriginal Medicationpropranolol hydrochloride 40 MG Oral Tablet *Reorder from [facility] for eRx and Interaction Alerts* 04/07/20 14 Active Losartan Potassium 100 MG Oral Tablet ORAL losartan potassium 100 MG Oral TabletOriginal Medicationlosartan potassium 100 MG Oral Tablet *Reorder from [facility] for eRx and Interaction Alerts* 04/07/20 14 Active Pravastatin Sodium 10 MG Oral Tablet ORAL pravastatin sodium 10 MG Ora l TabletOriginal Medicationpravastatin sodium 10 MG Oral Tablet *Reorder from [facility] for eRx and Interaction Alerts* 04/07/20 14 Active levothyroxine sodium 0.1 MG Oral Capsule ORAL levothyroxine sodium 0.1 MG Oral CapsuleOriginal Medicationlevothyroxine sodium 0.1 MG Oral Capsule *Reorder from [facility] for eRx and Interaction Alerts* 04/07/20 14 Active esomeprazole 20 MG Injection INTRAVENOUS esomeprazole 20 MG InjectionOriginal Medicationesomeprazole 20 MG Injection *Reorder from [facility] for eRx and Interaction Alerts* 04/07/20 14 Active Spironolactone 25 MG Oral Tablet ORAL spironolactone 25 MG Oral TabletOriginal Medicationspironolactone 25 MG Oral Tablet *Reorder from [facility] for eRx and Interaction Alerts* 04/07/20 14 Active Allopurinol 300 MG Oral Tablet ORAL allopurinol 300 MG Oral TabletOriginal Medicationallopurinol 300 MG Oral Tablet *Reorder from [facility] for eRx and Interaction Alerts* 04/07/20 14 Active nortriptyline 50 MG Oral Capsule ORAL nortriptyline 50 MG Oral CapsuleOriginal Medicationnortriptyline 50 MG Oral Capsule *Reorder from [facility] for eRx and Interaction Alerts* 04/07/20 14 Active Immunizations Vaccine Route Administration Date Status Comme nts Influenza, unspecified formulation Unknown 06/30/2023 A dministered Vital Signs Height-cm 170.18 cm 02/08/2024 Weight-kg 113.85 kg 02/08/2024 Height 67.00 in 02/08/2024 Weight 251 lbs 02/08/2024 BMI 39.31 kg/m2 02/08/2024 Encounters Encounter Location Date Provider Diagnosis [address] [id number] 01/02/2025 WILFREDO BRODERICK Tinea unguium B35.1 ; Acquired 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 ; Atherosclerosis of pala arteries of extremities with intermittent claudication, bilateral legs I70.213 ; Pain in right foot M79.671 and Pain in left foot M79.[address] [id number] 02/08/2024 ADRIEN CONTRERAS Unspecified atherosclerosis of pala arteries of extremities, bilateral legs I70.203 ; Tinea unguium B35.1 ; Pain in left toe(s) M79.675 ; Other hammer toe(s) (acquired), right foot M20.41 ; Other hammer toe(s) (acquired), left foot M20.42 and Pain in right toe(s) M79.674 [facility] [address] [place], [place] [id number] 04/11/2024 ADRIEN CONTRERAS Unspecified atherosclerosis of pala arteries of extremities, bilateral legs I70.203 ; Tinea unguium B35.1 ; Pain in left toe(s) M79.675 ; Other hammer toe(s) (acquired), right foot M20.41 ; Other hammer toe(s) (acquired), left foot M20.42 ; Pain in right toe(s) M79.674 and Acquired 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 [id number] 10/10/2024 MIRIAN MOSHER Tinea unguium B35.1 ; Acquired 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 ; Atherosclerosis of pala arteries of extremities with intermittent claudication, bilateral legs I70.213 ; Pain in right foot M79.671 and Pain in left foot M79.672 [facility] [address] [facility] [address] [place], [place] [id number] 01/29/2025 MIRIAN MOSHER [facility] [address] [facility] [address] [place], [place] [id number] 12/09/2024 MIRIAN MOSHER Assessments Encounter Date Diagnosis [...] and prescription treatments. 02/08/2024 Unspecified atherosclerosis of pala arteries of extremities, bilateral legs (ICD-10 - [...] and prescription treatments. 04/11/2024 Unspecified atherosclerosis of pala arteries of extremities, bilateral legs (ICD-10 - [...] and pared utilizing a #15 blade 01/02/2025 Tinea unguium (ICD-10 - B35.1) Nails [...] utilizing a #15 blade 01/02/2025 Atherosclerosis of pala arteries of extremities with intermittent claudication, bilateral legs (ICD-10 - I70.213) Check and protect LE bilateral daily. Call if any changes or concerns. 10/10/2024 Atherosclerosis of pala arteries of extremities with intermittent claudication, bilateral [...] Pain in right foot (ICD-10 - M79.671) 01/02/2025 Pain in right foot (ICD-10 - M79.671) Patient was instructed to try an OTC topical pain reliever/anti-infl ammatory such as Voltaren Gel, Aspercreme with Lidocaine, or Biofreeze etc over the affected areas. Spot test on hand or somewhere visible prior to starting to watch for possible rash/allergic reaction 01/02/2025 Pain in left foot (ICD-10 - M79.672) 10/10/2024 Pain in left foot (ICD-10 - [...] Treatment Next Appt Details Provider Name:WILFREDO MARTIN, 03/06/2025 01:30:00 PM, [address] [place] [address], [id number], Insurance Providers Payer Name Payer Address Payer Phone Subscriber Number Group Number Insured Name Patient Relationship to Insured Coverage Start Date Coverage End Date [facility] [address] [address] [place] [id number] MATEUSZ MONROE Self - patient is the insured
--- OUTSIDE RECORDS SUMMARY | 2025-02-02 12:08 | XMS_ITS | Continuity of Care Document ---
Author Organization [facility] Address [address] [facility] [address] [place] [address] Phone Care Team Providers Care Storage Solutions Architect Name Role Phone Nilson Vaughan Unavailable Unavailable [...] Diagnoses Date Provider Providers Copied on Encounter [facility], [address], [place], [place], [address], [place] tel:[phone] [facility] No Information Clement Devine. [address] [place], [address], [place]. tel:[phone] Referring Provider: Nilson Stewart, [address] [place], [address]. tel:[phone] [facility], [address], [place], [place], [address], [place] tel:[phone] [facility] No Information Clement Devine. [address] [place], [address], [place]. tel:[phone] Referring Provider: Nilson Stewart, [address] [place], [address]. tel:[phone] [facility], [address], [place], [place], [address], [place] tel:[phone] [facility] No Information Clement Devine. [address] [place], [address], [place]. tel:[phone] Referring Provider: Nilson Stewart, [address] [place], [address]. tel:[phone] [facility], [address], [place], [place], [address], [place] tel:[phone] [facility] No Information Clement Devine. [address] [place], [address], [place]. [phone] Referring Provider: Nilson Stewart, [address] [place], [address]. tel:[phone] [facility], [address], [place], [place], [address], [place] tel:[phone] [facility] No Information Clement Devine. [address] [place], [address], [place]. tel:[phone] [facility], [address], [place], [place], [address], [place] tel:[phone] [facility] No Information Clement Devine. [address] [place], [address], [place]. tel:[phone] Referring Provider: Nilson Stewart, [address] [place], [address]. tel:[phone] Office/outpat ient Visit, [facility], [address], [place], [place], [address], [place] tel:[phone] [facility] No Information Clement Devine. [address] [place], [address], [place]. tel:[phone] Family History Family Member Type Diagnosis Age At Onset No Information Payers Payer name Insurance type Covered libertarian ID Authorshiloha tiisaiah(s) Medicaid [facility] [id number] Social History Type Description Quantity Date Captured [...]
--- OUTSIDE RECORDS SUMMARY | 2025-02-02 12:08 | XMS_ITS ---
Author Organization [facility] Address [address] [place], [place] [address] Care Team Providers Care Business Insurance Agent Name Role Phone MIRIAN MOSHER Unavailable [phone] Virgilio Meehan Unavailable Unavailable WILFREDO BRODERICK Unavailable [phone] REASON FOR VISIT *General care Encounters Encounter Location Date Provider Diagnosis [address] [id number] 12/12/2024 WILFREDO BRODERICK Plan Of Treatment Next Appt Details Provider Name:WILFREDO MARTIN, 03/06/2025 01:30:00 PM, [address] [place] [address], [id number], Progress Notes * MATEUSZ MONROE ADOB:[birth year] (59 yo F)Acc No.[id number]:12/12/2024 Patient: MATEUSZ ZHU Provider: Gavi BRODERICK :1965 A ge:59 Y S ex:Female Date:12/12/2024 Address:[address] [place], [place] [id number] Subjective: * Chief Complaints: * 1 . *General care. * Medical History: Objective: * Vitals: Assessment: Plan: * Treatment: * Billing Information: * Visit Code: * Procedure Codes: * Electronic signature of KINA BRODERICK DPM on 02/02/2025 at 12:07 PM CDT Sign off status: Pending * Provider: Gavi BRODERICK Date: 0 12/12/2024 Generated for Curt small/Ana Maria/Jose on: 0 02/02/2025 12:07 PM FARRAH
--- OUTSIDE RECORDS SUMMARY | 2025-02-02 12:08 | XMS_ITS | Encounter Summary ---
Author Organization [facility] Address [facility] [place] [address] Care Team Providers Care Telephone Answerer Name Role Phone Alexis Thurman MD Unavailable [phone] Willian Mendoza MD Primary Care Provider [phone] Cee Liu APRN, TECHNICAL SUPERVISOR-C Unavailable [phone] Virgilio Meehan DO Primary Care Provider [phone] Mame Osborn MD Unavailable [phone] Encounter Details Date Type Department Care Team (Late st Contact Info) Description 11/04/2017 Abstract [facility] CONVERSION [address] [place] [address] , Generic ConversionMD Social History Tobacco Use [...] Description 05/12/2025 1:30 PM CDT Office Visit [facility] el[address] [place] [address] Cee Liu, ANGEL, TECHNICAL SUPERVISOR-C [address] [facility] [address] [place] [phone] documented as of this encounter Visit Diagnoses Not on filedocumented in this encounter Care Teams Telephone Answerer Relationship Specialty Start Date End Date Willian Mendoza MD [address] [place] [address] PCP - General INTERNAL MEDICINE 09/14/18 09/07/22 Virgilio Meehan DO [address] [place] [address] PCP - General FAMILY PRACTICE 09/08/22 Alexis Thurman MD [address] [place] [address] [place] Business Relationship Manager CARDIOVASCULAR DISEASE 09/14/18 04/01/24 Cee Liu, TOW BOAT CAPTAIN, TECHNICAL SUPERVISOR-C [address] [facility] [address] [place] [address] NURSE PRACTITIONER 05/27/22 Mame Osborn MD [address] [place] [address] INTERVENTIONAL CARDIOLOGY 05/10/24 documented as of this encounter
--- OUTSIDE RECORDS SUMMARY | 2025-02-02 12:08 | XMS_ITS | Clinical Summary ---
Author Organization [facility] Address [facility] [place] [address] Care Team Providers Care Inspector Missile Name Role Phone Cee Liu APRN NURSE MIDWIFE-C Unavailable Virgilio Meehan DO Primary Care Provider [phone] Mame Osborn MD Unavailable [phone] Allergies Active Allergy Reactions Criticality Noted Date Comments Amoxicillin-Pot Clavulanate Diarrhea 05/27/2022 Metformin Other (see comment) 05/27/2022 Renal function impairment Pantoprazole Other (see comment) 05/27/2022 Hypomagnesemia Medications CPAP DME DEVICE CPAPCPAP [id number] via IV [id number] -[id number] -2018Lefty Morrissey 8 Active pravastatin (PRAVACHOL) 20 [...] mouth 2 (two) times daily. Active CREON 60789-697007 units capsule Take 2 capsules (72,000 units [...] check lipid panel Hypertension associated with diabetes ([facility]) 09/19/2012 Overview (10/22/2018): Overview: Unspecified essential hypertension Last Assessment & Plan: Controlled on current medications. Type 2 diabetes mellitus ([facility]) 06/28 Overview (10/22/2018): Overview: DMII WO CMP [...] Type Department Care Team Description 11/12/2024 Telephone [facility] [address] [place] [address] Ella Witt MD Results 11/12/2024 Orders Only [facility] [address] [place] [address] Ella Witt MD 11/12/2024 Abstract [facility] [address] [place] [address] Ella Witt MD 11/04/2024 11:15 AM CDT - 11/04/2024 11:59 PM CDT Hospital Encounter [facility] [address] [place] [address] Ella Witt MD Discharge Disposition: Home or Self Care (Routine Discharge) 11/04/2024 10:30 AM CDT Office Visit [facility] [place] [address] Gonzalez Wilson MD Bhatti, Vikrampal S, MD CKD Follow-up (Pt is having some low back pain for the past 3 or 4 days.) 11/04/2024 Scan [facility] [address] [employer] [place] [address] Scanned, Doc Cikda 11/04/2024 Orders Only [place] [address] [place] [address] Ella Witt MD 11/04/2024 Travel from Last 3 Months Family History Medical [...] 36.2 C (97.2 F) 06/29/2022 6:18 AM WELDER APPRENTICE Respiratory Rate 16 05/10/2024 12:4 0 PM CDT Oxygen Saturation 100% 11/02/2023 2:52 PM CDT Inhaled Oxygen Concentration - - Weight 104.9 kg (231 lb 3.2 oz) 025 10:46 AM CDT Height 170.2 cm (5' 7) 11/04/2024 10:4 6 AM CDT Body Mass Index 36.21 11/04/2024 10:46 AM CDT Plan of Treatment Upcoming Encounters Date Type Department Care Team ([facility] st Contact Info) Description 05/12/2025 1:30 PM CDT Office Visit [facility] eld [address] [place] [phone] Cee Liu, THERMOMETER TESTER, NURSE MIDWIFE-C [address] [facility] [address] [place] [phone] Health Maintenance Due Date Last Done Comments [...] this topic Medical Devices Implanted Type Area Television Schedule Coordinator Device Identifier Shelf Expiration Date Model / Serial / Lot Stent Ureteral [employer] Contour 6fr X 26cm - [id number] Implanted:Qty : 1 on 06/28/2021 by Ryan Vinson MD at [facility] Stent Right: Ureter [employer] [id number] 04/12/2024 [id number] / / [id number] Procedures Procedure Name Priority Date/Time Associated Diagnosis Comments HC URINALYSIS AUTO W/MICRO Routine 11/04/2024 11:24 AM CDT Chronic kidney disease, stage 3b (CMS/HCC) LIPID PANEL Routine 07/23/2009 12:00 AM WELDER APPRENTICE from Last 3 Months or Most Recently Relevant to Health Maintenance Results * (ABNORMAL) URINALYSIS (11/04/2024 11:24 AM CDT) COLOR (U) YELLOW 11/04/2024 11:52 AM CDT [facility] TRANSPARENCY CLEAR 11/04/2024 11:52 AM CDT [facility] SPECIFIC GRAVITY (U) 1.020 1.000 - 1.025 11/04/2024 11:52 AM CDT [facility] U PH 5.5 5.0 - 8.0 11/04/2024 11:52 AM CDT [facility] LEUKOCYTES (U) TRACE(A) NEGATIVE 11/04/2024 11:52 AM CDT [facility] NITRITES NEGATIVE NEGATIVE 11/04/2024 11:52 AM CDT [facility] PROTEIN RANDOM (U) NEGATIVE NEGATIVE 11/04/2024 11:52 AM CDT [facility] GLUCOSE (U) 2+(A) NEGATIVE 11/04/2024 11:52 AM CDT [facility] KETONES MG/DL (U) NEGATIVE NEGATIVE 11/04/2024 11:52 AM CDT [facility] UROBILINOGEN 0.2 <1.0 EU/DL 11/04/2024 11:52 AM CDT [facility] BILIRUBIN (U) NEGATIVE NEGATIVE 11/04/2024 11:52 AM CDT [facility] BLOOD (U) NEGATIVE NEGATIVE 11/04/2024 11:52 AM CDT [facility] WBC/HPF 0-5 0 - 5 /HPF 11/04/2024 11:52 AM CDT [facility] RBC/HPF 0-5 0 - 5 /HPF 11/04/2024 11:52 AM CDT [facility] EPI/LPF FEW /LPF 11/04/2024 11:52 AM CDT [facility] BACTERIA (U) 1+ /HPF 11/04/2024 11:52 AM CDT [facility] URINE SPECIMEN OBTAINED BY CLEAN CATCH PROCEDURE / Unknown 11/04/2024 11:24 AM CDT us Ella Witt MD URINE ORDERABLES Final Res ult [facility] [place] [address], * LIPID PANEL (07/23/2009 12:00 AM WELDER APPRENTICE) TRIGLYCERIDES 132 0 - 150 mg/dl [employer] TO EPIC CONVERSION CHOLESTEROL 180 0 - 200 mg/dl [employer] TO EPIC CONVERSION HDL 61 40 - 59 mg/dl [employer] TO EPIC CONVERSION LDL CONVERSION 93 0 - 100 mg/dl [employer] TO EPIC CONVERSION CHOL/HDL RATIO 3.0 <4.0 (Calc) [employer] TO EPIC CONVERSION 07/23/2009 07/23/2009 Narrative [employer] TO EPIC CONVERSION - 07/23/2009 1:31 PM WELDER APPRENTICE Reviewed by ANGELA Jul 23 2009 1:33:00:000PM us Generic Conversion Md [facility] Final R esult [employer] TO EPIC CONVERSION from Last 3 Months or Most Recently Relevant to Health Maintenance Insurance MEDICAID Member Subscriber Plan / Payer (Ef fective 2018-Present) Name:Keri Stone Ann Relation to Subscriber:Self Name:Keri Stone Ann Payer ID:Not on file Group ID:Not on file Type:Not on file Address: [address] MEDICAID Member Subscriber Plan / Payer (Ef fective 2018-Present) Name:Keri Stone Ann Relation to Subscriber:Self Name:Keri Stone Ann Payer ID:Not on file Group ID:Not on file Type:Not on file Address: [address] MEDICAID Advance Directives * Full Code (Latest Code Status on File) Date Activated Date Inactivated Comments 06/29/2022 9:52 AM 06/29/2022 1:43 PM Care Teams Inspector Missile Relationship Specialty Start Date End Date Virgilio Meehan DO [address] [place] [address] PCP - General FAMILY PRACTICE 09/08/22 Cee Liu APRN, NURSE MIDWIFE-C [address] [facility] [address] [place] [address] NURSE PRACTITIONER 05/27/22 Mame Osborn MD [address] [place] [address] INTERVENTIONAL CARDIOLOGY 05/10/24
[2025-02-02 12:41] LABS: Magnesium 1.4 mg/dL (1.6-2.3)
== END 2025-02-02 12:05 | disposition home or self-care (01) ==
LOC: CHSLAB 12:06
PROVIDERS: PCP Family Medicine; Visit Provider Nurse Practitioner Family
DX: R74.8 Abnormal levels of other serum enzymes (principal)
CPT/HCPCS: 36415; 83735

== ENCOUNTER 2025-02-03 07:30 | Outpatient (CLI) | payer MEDICARE, MEDICAID, SELFPAY ==
--- OUTSIDE RECORDS SUMMARY | 2025-02-03 07:35 | XMS_ITS ---
Author Organization [facility] Address [address] [place], [place] [id number] Care Team Providers Care Test Skein Winder Name Role Phone MIRIAN MOSHER Unavailable [phone] Virgilio Meehan Unavailable Unavailable WILFREDO BRODERICK Unavailable [phone] REASON FOR VISIT *General care Medications Medication SIG (Take, Route, Frequency, Duration) Notes Start Date End Date Status cholecalciferol 0.025 MG Oral Capsule ORAL cholecalciferol 0.025 MG Ora l CapsuleOriginal Medicationcholecalciferol 0.025 MG Oral Capsule *Reorder from [employer] for eRx and Interaction Alerts* 04/07/20 14 Active 3 ML insulin glargine 100 UNT/ML Pen Injector [Lantus] 3 ML insulin glargine 100 UNT/ML Pen Injector [Lantus]Original Medication3 ML insulin glargine 100 UNT/ML Pen Injector [Lantus] *Reorder from [employer] for eRx and Interaction Alerts* 04/07/20 14 Active Nabumetone 500 MG Oral Tablet ORAL nabumetone 500 MG Oral TabletOriginal Medicationnabumetone 500 MG Oral Tablet *Reorder from [employer] for eRx and Interaction Alerts* 06/29/20 12 Active Losartan Potassium 100 MG Oral Tablet ORAL losartan potassium 100 MG Oral TabletOriginal Medicationlosartan potassium 100 MG Oral Tablet *Reorder from [employer] for eRx and Interaction Alerts* 04/07/20 14 Active Pravastatin Sodium 10 MG Oral Tablet ORAL pravastatin sodium 10 MG Ora l TabletOriginal Medicationpravastatin sodium 10 MG Oral Tablet *Reorder from [employer] for eRx and Interaction Alerts* 04/07/20 14 Active Spironolactone 25 MG Oral Tablet ORAL spironolactone 25 MG Oral TabletOriginal Medicationspironolactone 25 MG Oral Tablet *Reorder from [employer] for eRx and Interaction Alerts* 04/07/20 14 Active Allopurinol 300 MG Oral Tablet ORAL allopurinol 300 MG Oral TabletOriginal Medicationallopurinol 300 MG Oral Tablet *Reorder from [employer] for eRx and Interaction Alerts* 04/07/20 14 Active nortriptyline 50 MG Oral Capsule ORAL nortriptyline 50 MG Oral CapsuleOriginal Medicationnortriptyline 50 MG Oral Capsule *Reorder from [employer] for [employer] and Interaction Alerts* 04/07/20 14 Active verapamil hydrochloride 40 MG Oral Tablet ORAL verapamil hydrochloride 40 M G Oral TabletOriginal Medicationverapamil hydrochloride 40 MG Oral Tablet *Reorder from [employer] for eRx and Interaction Alerts* 04/07/20 14 Active propranolol hydrochloride 40 MG Oral Tablet ORAL propranolol hydrochloride 40 MG Oral TabletOriginal Medicationpropranolol hydrochloride 40 MG Oral Tablet *Reorder from [employer] for eRx and Interaction Alerts* 04/07/20 14 Active levothyroxine sodium 0.1 MG Oral Capsule ORAL levothyroxine sodium 0.1 MG Oral CapsuleOriginal Medicationlevothyroxine sodium 0.1 MG Oral Capsule *Reorder from [employer] for [employer]Rx and Interaction Alerts* 04/07/20 14 Active esomeprazole 20 MG Injection INTRAVENOUS esomeprazole 20 MG InjectionOriginal Medicationesomeprazole 20 MG Injection *Reorder from [employer] for eRx and Interaction Alerts* 04/07/20 14 Active cinnamon bark 500 MG Oral Capsule ORAL cinnamon bark 500 MG Oral CapsuleOriginal Medicationcinnamon bark 500 MG Oral Capsule *Reorder from [employer] for eRx and Interaction Alerts* 04/07/20 14 Active ciclopirox 80 MG/ML Topical Solution CUTANEOUS ciclopirox 80 MG/ML Topical SolutionOriginal Medicationciclopirox 80 MG/ML Topical Solution *Reorder from [employer] for eRx and Interaction Alerts* 04/20/20 12 Active Encounters Encounter Location Date Provider Diagnosis [address] [id number] 01/02/2025 WILFREDO BRODERICK Tinea unguium B35.1 ; Acquired 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 ; Atherosclerosis of [place] arteries of extremities with intermittent claudication, bilateral [...] utilizing a #15 blade 01/02/2025 Atherosclerosis of [place] arteries of extremities with intermittent claudication, bilateral [...] pared utilizing a #15 blade Atherosclerosis of [place] ar teries of extremities with intermittent claudication, [...] Details Provider Name:WILFREDO MARTIN, 03/06/2025 01:30:00 PM, [address] [place] [address], [phone], Progress Notes * MATEUSZ MONROE ADOB:[birth year] (59 yo F)Acc No.[id number]:01/02/2025 Patient: S MATEUSZ SNIDER A Provider: Gavi BRODERICK :1965 A ge:59 Y S ex:Female Date:01/02/2025 Address:[address] [place], [place] [id number] Subjective: * Chief Complaints: * 1 . *General care. * HPI: H PI: General care P atient presents to the office for diabetic foot care. Patient states that their nails are thickened, elongated and painful. Patient states that it is aggravated by shoe gear. Onset is gradual., Patient denies taking blood thinners., Date last seen by Dr. Meehan was 12/2024., Initials [facility]. * ROS: G eneral / Constitutional: [...] Medicationallopurinol 300 MG Oral Tablet *Reorder from [facility] for eRx and Interaction Alerts*, Taking Spironolactone 25 MG Oral Tablet ORAL , Notes to Pharmacist: spironolactone 25 MG Oral TabletOriginal Medicationspironolactone 25 MG Oral Tablet *Reorder from [facility] for eRx and Interaction Alerts*, Taking Nabumetone 500 MG Oral Tablet ORAL , Notes to Pharmacist: nabumetone 500 MG Oral TabletOriginal Medicationnabumetone 500 MG Oral Tablet *Reorder from [facility] for eRx and Interaction Alerts*, Taking Pravastatin Sodium 10 MG Oral Tablet ORAL , Notes to Pharmacist: pravastatin sodium 10 MG Oral TabletOriginal Medicationpravastatin sodium 10 MG Oral Tablet *Reorder from [facility] for eRx and Interaction Alerts*, Taking Losartan Potassium 100 MG Oral Tablet ORAL , Notes to Pharmacist: losartan potassium 100 MG Oral TabletOriginal Medicationlosartan potassium 100 MG Oral Tablet *Reorder from [facility] for eRx and Interaction Alerts*, Taking 3 ML insulin glargine 100 UNT/ML Pen Injector [Lantus] , Notes to Pharmacist: 3 ML insulin glargine 100 UNT/ML Pen Injector [Lantus]Original Medication3 ML insulin glargine 100 UNT/ML Pen Injector [Lantus] *Reorder from [facility] for eRx and Interaction Alerts*, Taking cholecalciferol 0.025 MG Oral Capsule ORAL , Notes to Pharmacist: cholecalciferol 0.025 MG Oral CapsuleOriginal Medicationcholecalciferol 0.025 MG Oral Capsule *Reorder from [facility] for eRx and Interaction Alerts*, Taking ciclopirox 80 MG/ML Topical Solution CUTANEOUS , Notes to Pharmacist: ciclopirox 80 MG/ML Topical SolutionOriginal Medicationciclopirox 80 MG/ML Topical Solution *Reorder from [facility] for eRx and Interaction Alerts*, Taking cinnamon bark 500 MG Oral Capsule ORAL , Notes to Pharmacist: cinnamon bark 500 MG Oral CapsuleOriginal Medicationcinnamon bark 500 MG Oral Capsule *Reorder from [facility] for eRx and Interaction Alerts*, Taking esomeprazole 20 MG Injection INTRAVENOUS , Notes to Pharmacist: esomeprazole 20 MG InjectionOriginal Medicationesomeprazole 20 MG Injection *Reorder from [facility] for eRx and Interaction Alerts*, Taking levothyroxine sodium 0.1 MG Oral Capsule ORAL , Notes to Pharmacist: levothyroxine sodium 0.1 MG Oral CapsuleOriginal Medicationlevothyroxine sodium 0.1 MG Oral Capsule *Reorder from [facility] for eRx and Interaction Alerts*, Taking nortriptyline 50 MG Oral Capsule ORAL , Notes to Pharmacist: nortriptyline 50 MG Oral CapsuleOriginal Medicationnortriptyline 50 MG Oral Capsule *Reorder from [facility] for eRx and Interaction Alerts*, Taking propranolol hydrochloride 40 MG Oral Tablet ORAL , Notes to Pharmacist: propranolol hydrochloride 40 MG Oral TabletOriginal Medicationpropranolol hydrochloride 40 MG Oral Tablet *Reorder from [facility] for eRx and Interaction Alerts*, Taking verapamil hydrochloride 40 MG Oral Tablet ORAL , Notes to Pharmacist: verapamil hydrochloride 40 MG Oral TabletOriginal Medicationverapamil hydrochloride 40 MG Oral Tablet *Reorder from [facility] for eRx and Interaction Alerts*, Medication List [...] - L85.1 3 . A therosclerosis of [place] arteries of extremities with intermittent claudication, bilateral [...] a #15 blade 3. A therosclerosis of [place] arteries of extremities with intermittent claudication, bilateral [...] reaction * Billing Information: * Visit Code: 66747 Office Visit, Est Pt., Level 3. * Procedure Codes: * Electronic signature of KINA BRODERICK DPM on 02/03/2025 at 07:35 AM CDT Sign off status: Pending * Provider: Gavi BRODERICK Date: 0 01/02/2025 Generated for Curt small/Ana Maria/Jose on: 0 02/03/2025 07:35 AM CDT History and Physical Notes * [...]
--- OUTSIDE RECORDS SUMMARY | 2025-02-03 07:35 | XMS_ITS | Referral Summary ---
Author Organization [address] Address [address] [place] [id number] Care Team Providers Care [employer] Name Role Phone Willian Mendoza MD Primary Care Provider [phone] Encounters Date Type Department Care Team Description 11/28/2024 Telephone [facility] of [address] [phone] Erika Mandel FOREST PATHOLOGY PROFESSOR 11/21/2024 Telephone [facility] Specialists [address] [address] Anthony Castillo MD PA in [facility] Dexcom G7 sensor from Last 3 [...] mouth 2 (two) times a day Active [id number] on-minerals tablet Take 1 tablet by mouth [...] 1 tablet (100 mcg total) by mouth health services coordinator before breakfast 90 tablet 3 08/07/20 24 [...] 03/17/2022 Assessment & Plan (08/07/2024 5:51 PM MILLER APPRENTICE): Chronic, stable. Continue levothyroxine Update TFTs Assessment & Plan (08/10/2023 3:53 PM MILLER APPRENTICE): Chronic, well-controlled Importance of taking levothyroxine on [...] 04/17/2018 Assessment & Plan (08/07/2024 5:51 PM MILLER APPRENTICE): Chronic, stable Update lipid profile Continue statin therapy Assessment & Plan (08/10/2023 3:53 PM MILLER APPRENTICE): Chronic, well-controlled Continue statin therapy with Pravachol Assessment & Plan (01/17/2023 1:59 PM CDT): Chronic, well controlled Low fat Low cholesterol diet Exercise Continue statin therapy with Pravachol Assessment & Plan (03/17/2022 9:47 AM CDT): Chronic problem. On statin therapy, no changes. Assessment & Plan (10/28/2021 1:21 PM MILLER APPRENTICE): Chronic problem. On statin therapy, no changes. [...] Pravachol Assessment & Plan (09/27/2019 9:29 AM MILLER APPRENTICE): LDL at goal. Trigs elevated. Continue statin [...] therapy Assessment & Plan (08/07/2018 1:59 PM MILLER APPRENTICE): At goal on current medications. Assessment & [...] dicussed Assessment & Plan (09/27/2019 9:29 AM MILLER APPRENTICE): Continues to do well with wt loss [...] adjusted. Assessment & Plan (08/07/2018 1:59 PM MILLER APPRENTICE): Continues to gain weight. Little attempt at diet and exercise. Reviewed importance of avoiding juice, soda, high fat, high carb foods. Assessment & Plan (10/05/2017 2:49 PM MILLER APPRENTICE): Diet and exercise were discussed. 1200 Calorie diet advised 45-60 min aerobic / resistance exercise most days of the week recommended. Bariatric surgery medically indicated Assessment & Plan (07/20/2017 4:17 PM MILLER APPRENTICE): Importance of following diet and exercising discussed. [...] changes. Assessment & Plan (10/28/2021 1:21 PM MILLER APPRENTICE): Controlled on current medications, no changes. Assessment [...] microalbumin Assessment & Plan (09/27/2019 9:29 AM MILLER APPRENTICE): Controlled on current medications. Continue plan. Assessment & Plan (06/06/2019 2:49 PM CDT): Controlled on current medications. Continue plan. Assessment & Plan (11/01/2018 2:04 PM CDT): Goal blood pressure is less than 140/85 Low salt diet recommended Daily aerobic exercise Continue current meds, including ALYCE-I or ARB Assessment & Plan (08/07/2018 2:00 PM MILLER APPRENTICE): Controlled on current medications. Assessment & Plan (04/17/2018 2:07 PM CDT): Goal blood pressure is less than 140/85 Low salt diet recommended Daily aerobic exercise Continue current meds, including ALYCE-I or ARB Assessment & Plan (10/05/2017 2:50 PM MILLER APPRENTICE): Goal blood pressure is less than 140/85 Low salt diet recommended Daily aerobic exercise Continue current meds, including ALYCE-I or ARB Assessment & Plan (07/20/2017 4:18 PM MILLER APPRENTICE): Controlled on current medications. Assessment & Plan (04/06/2017 4:28 PM CDT): At goal on current medications. Hyperlipidemia 09/19/2012 Overview (11/24/2016): HYPERLIPIDEMIA NEC/NOS Assessment & Plan (06/06/2019 2:49 PM CDT): Lipid panel ordered Assessment & Plan (07/20/2017 4:18 PM MILLER APPRENTICE): Will check lipid panel Assessment & Plan (04/06/2017 4:28 PM CDT): Check labs and focus on low fat foods Furuncle of trunk 06/28/2012 Overview (11/23/2016): Carbuncle and furuncle of trunk Type 2 diabetes mellitus 06/28/2012 Overview (11/24/2016): DMII WO CMP UNCNTRLD Assessment & Plan (08/07/2024 5:50 PM MILLER APPRENTICE): Chronic, stable Diet and exercise were emphasized Continue Farxiga and Ozempic Assessment & Plan (02/13/2024 4:29 PM CDT): Chronic, well-controlled. Continue Ozempic 2 mg weekly Farxiga 10 mg Importance of diet and exercise was discussed Assessment & Plan (08/10/2023 3:52 PM MILLER APPRENTICE): Chronic, well-controlled, with some postprandial hyperglycemia Continue [...] Farxita Assessment & Plan (07/19/2022 1:34 PM MILLER APPRENTICE): Hba1c was Lab Results Component Value Date [...] today. Assessment & Plan (10/28/2021 1:43 PM MILLER APPRENTICE): Chronic problem, not at goal. Increase NL [...] breakfast Assessment & Plan (09/27/2019 9:31 AM MILLER APPRENTICE): A1c increased to 7.8. Pattern acceptable during [...] goal hba1c is under 7.0 to prevent skilled nursing diabetes complications ( eye , kidney and [...] discussed. Assessment & Plan (08/07/2018 2:02 PM MILLER APPRENTICE): A1c 8.1. Baseline BG reported at goal. [...] discussed. Assessment & Plan (10/05/2017 2:51 PM MILLER APPRENTICE): Hba1c was . 9.6 . today, indicating [...] discussed. Assessment & Plan (07/20/2017 4:17 PM MILLER APPRENTICE): A1c improved 8.7, ~ 2%. Mostly from [...] on file Legal Sex Female 10:22 AM MILLER APPRENTICE Gender Identity Not on file Sexual Orientation Straight 08/07/2024 2: 11 PM MILLER APPRENTICE Last Filed Vital Signs Vital Sign Reading Time Taken Comments Blood Pressure 100/68 08/07/2024 2:37 PM MILLER APPRENTICE Pulse 66 08/07/2024 2:37 PM MILLER APPRENTICE Temperature - - Respiratory Rate 17 08/07/2024 2:37 PM MILLER APPRENTICE Oxygen Saturation - - Inhaled Oxygen Concentration - - Weight 109 kg (240 lb 6.4 oz) 08/07/2024 2:37 PM MILLER APPRENTICE Height 170.2 cm (5' 7) 08/07/2024 2:37 PM MILLER APPRENTICE Body Mass Index 37.65 08/07/2024 2:37 PM MILLER APPRENTICE Plan of Treatment Not on file Procedures Procedure Name Priority Date/Time Associated Diagnosis Comments EGFR Routine 08/07/2024 3:23 PM MILLER APPRENTICE Type 2 diabetes mellitus with hyperglycemia, with long-term current use of insulin (HCC) POCT HEMOGLOBIN A1C Routine 08/07/2024 2 :38 PM MILLER APPRENTICE Type 2 diabetes mellitus with hyperglycemia, with long-term current use of insulin (HCC) HM DIABETES EYE EXAM Routine 10/11/2023 9:29 AM MILLER APPRENTICE ALBUMIN CREATININE RATIO, URINE Routine 08/28/2023 7:38 AM MILLER APPRENTICE LIPID PANEL Routine 08/10/2023 1:53 PM MILLER APPRENTICE Hyperlipidemia associated with type 2 diabetes mellitus (HCC) from Last 3 Months or Most Recently Relevant to Health Maintenance Results * (ABNORMAL) eGFR (08/07/2024 3:23 PM MILLER APPRENTICE) eGFR 35(L) >=60 mL/min/1. 73 m2 Comment: [...] last reviewed 2021. Blood 08/07/2024 3:23 PM MILLER APPRENTICE 08/07/2024 6:55 PM MILLER APPRENTICE Result [facility] Anthony Castillo MD LAB BLOOD ORDERABLES Final Resul t OLGA [id number] Department [place] [address] * (ABNORMAL) POCT hemoglobin A1c (08/07/2024 2:38 PM MILLER APPRENTICE) Hemoglobin A1C, POC 7.1 4.0 - 5.6 % Comment:None Capillary blood 08/07/2024 2 :38 PM MILLER APPRENTICE Result [facility] Anthony Castillo MD POINT OF CARE TEST ORDERABLES Fi nal Result * (ABNORMAL) DIABETES EYE EXAM (10/11/2023 9:29 AM MILLER APPRENTICE) Result [facility] Historical Provider HEALTH MAINTENANCE Final Result * (ABNORMAL) Albumin Creatinine Ratio, Urine (08/28/2023 7:38 AM MILLER APPRENTICE) SCRIBED Creatinine, Urine 75.44 40 - 278 EXTERNAL LAB SCRIBED Microalbumin 13.4(A) 0.0 - 11.9 EXTERNAL LAB SCRIBED Microalb/Creat Ratio 0.18 0 - 0.20 EXTERNAL LAB Urine 08/28/2023 7:38 AM MILLER APPRENTICE Result [facility] Historical Provider LAB URINE ORDERABLES Edit ed Result - Final EXTERNAL LAB * (ABNORMAL) Lipid panel (08/10/2023 1:53 PM MILLER APPRENTICE) Cholesterol 164 30 - 199 mg/dL OLGA [...] ratio 3 OLGA Blood 08/10/2023 1:53 PM MILLER APPRENTICE 08/10/2023 7:31 PM MILLER APPRENTICE us Anthony Castillo MD LAB BLOOD ORDERABLES Final Resul t OLGA [id number] Department of Laboratories [place], [place] [id number] from Last 3 Months or Most Recently Relevant to Health Maintenance Insurance [employer] [facility] MEDICARE ADVANTAGE [facility] MEDICARE ADVANTAGE IDPA Care Teams [employer] Relationship Specialty Start Date End Date Willian Mendoza MD PCP - General 02/18/16
--- OUTSIDE RECORDS SUMMARY | 2025-02-03 07:36 | XMS_ITS | Clinical Summary ---
Author Organization [facility] Address [address] [place] [address] Care Team Providers Care Numerical Control Lathe Operator Name Role Phone Willian Mendoza MD Primary Care Provider [phone] Allergies Active Allergy Reactions Criticality Noted Date [...] mouth 2 (two) times a day Active kozztyysnnyv-Lv-tt on-minerals tablet Take 1 tablet by mouth [...] 1 tablet (100 mcg total) by mouth sports marketing coordinator before breakfast 90 tablet 3 08/07/20 [...] 03/17/2022 Assessment & Plan (08/07/2024 5:51 PM CORD MAKER): Chronic, stable. Continue levothyroxine Update TFTs Assessment & Plan (08/10/2023 3:53 PM CORD MAKER): Chronic, well-controlled Importance of taking levothyroxine on [...] 04/17/2018 Assessment & Plan (08/07/2024 5:51 PM CORD MAKER): Chronic, stable Update lipid profile Continue statin therapy Assessment & Plan (08/10/2023 3:53 PM CORD MAKER): Chronic, well-controlled Continue statin therapy with Pravachol Assessment & Plan (01/17/2023 1:59 PM CDT): Chronic, well controlled Low fat Low cholesterol diet Exercise Continue statin therapy with Pravachol Assessment & Plan (03/17/2022 9:47 AM CDT): Chronic problem. On statin therapy, no changes. Assessment & Plan (10/28/2021 1:21 PM CORD MAKER): Chronic problem. On statin therapy, no changes. [...] Pravachol Assessment & Plan (09/27/2019 9:29 AM CORD MAKER): LDL at goal. Trigs elevated. Continue statin [...] therapy Assessment & Plan (08/07/2018 1:59 PM CORD MAKER): At goal on current medications. Assessment & [...] dicussed Assessment & Plan (09/27/2019 9:29 AM CORD MAKER): Continues to do well with wt loss [...] adjusted. Assessment & Plan (08/07/2018 1:59 PM CORD MAKER): Continues to gain weight. Little attempt at diet and exercise. Reviewed importance of avoiding juice, soda, high fat, high carb foods. Assessment & Plan (10/05/2017 2:49 PM CORD MAKER): Diet and exercise were discussed. 1200 Calorie diet advised 45-60 min aerobic / resistance exercise most days of the week recommended. Bariatric surgery medically indicated Assessment & Plan (07/20/2017 4:17 PM CORD MAKER): Importance of following diet and exercising discussed. [...] changes. Assessment & Plan (10/28/2021 1:21 PM CORD MAKER): Controlled on current medications, no changes. Assessment [...] microalbumin Assessment & Plan (09/27/2019 9:29 AM CORD MAKER): Controlled on current medications. Continue plan. Assessment & Plan (06/06/2019 2:49 PM CDT): Controlled on current medications. Continue plan. Assessment & Plan (11/01/2018 2:04 PM CDT): Goal blood pressure is less than 140/85 Low salt diet recommended Daily aerobic exercise Continue current meds, including ALYCE-I or ARB Assessment & Plan (08/07/2018 2:00 PM CORD MAKER): Controlled on current medications. Assessment & Plan (04/17/2018 2:07 PM CDT): Goal blood pressure is less than 140/85 Low salt diet recommended Daily aerobic exercise Continue current meds, including ALYCE-I or ARB Assessment & Plan (10/05/2017 2:50 PM CORD MAKER): Goal blood pressure is less than 140/85 Low salt diet recommended Daily aerobic exercise Continue current meds, including ALYCE-I or ARB Assessment & Plan (07/20/2017 4:18 PM CORD MAKER): Controlled on current medications. Assessment & Plan (04/06/2017 4:28 PM CDT): At goal on current medications. Hyperlipidemia 09/19/2012 Overview (11/24/2016): HYPERLIPIDEMIA NEC/NOS Assessment & Plan (06/06/2019 2:49 PM CDT): Lipid panel ordered Assessment & Plan (07/20/2017 4:18 PM CORD MAKER): Will check lipid panel Assessment & Plan (04/06/2017 4:28 PM CDT): Check labs and focus on low fat foods Furuncle of trunk 06/28/2012 Overview (11/23/2016): Carbuncle and furuncle of trunk Type 2 diabetes mellitus 06/28/2012 Overview (11/24/2016): DMII WO CMP UNCNTRLD Assessment & Plan (08/07/2024 5:50 PM CORD MAKER): Chronic, stable Diet and exercise were emphasized Continue Farxiga and Ozempic Assessment & Plan (02/13/2024 4:29 PM CDT): Chronic, well-controlled. Continue Ozempic 2 mg weekly Farxiga 10 mg Importance of diet and exercise was discussed Assessment & Plan (08/10/2023 3:52 PM CORD MAKER): Chronic, well-controlled, with some postprandial hyperglycemia Continue [...] Farxita Assessment & Plan (07/19/2022 1:34 PM CORD MAKER): Hba1c was Lab Results Component Value Date [...] today. Assessment & Plan (10/28/2021 1:43 PM CORD MAKER): Chronic problem, not at goal. Increase NL [...] breakfast Assessment & Plan (09/27/2019 9:31 AM CORD MAKER): A1c increased to 7.8. Pattern acceptable during [...] discussed. Assessment & Plan (08/07/2018 2:02 PM CORD MAKER): A1c 8.1. Baseline BG reported at goal. [...] discussed. Assessment & Plan (10/05/2017 2:51 PM CORD MAKER): Hba1c was . 9.6 . today, indicating [...] discussed. Assessment & Plan (07/20/2017 4:17 PM CORD MAKER): A1c improved 8.7, ~ 2%. Mostly from [...] Team Description 11/28/2024 Telephone [facility] [address] [address] Erika Mandel LPN 11/21/2024 Telephone [facility] [address] [address] Anthony Castillo MD PA in [...] on file Legal Sex Female 10:22 AM CORD MAKER Gender Identity Not on file Sexual Orientation Straight 08/07/2024 2: 11 PM CORD MAKER Obstetrics History Last Filed Vital Signs Vital Sign Reading Time Taken Comments Blood Pressure 100/68 08/07/2024 2:37 PM CORD MAKER Pulse 66 08/07/2024 2:37 PM CORD MAKER Temperature - - Respiratory Rate 17 08/07/2024 2:37 PM CORD MAKER Oxygen Saturation - - Inhaled Oxygen Concentration - - Weight 109 kg (240 lb 6.4 oz) 08/07/2024 2:37 PM CORD MAKER Height 170.2 cm (5' 7) 08/07/2024 2:37 PM CORD MAKER Body Mass Index 37.65 08/07/2024 2:37 PM CORD MAKER Plan of Treatment Health Maintenance Due Date [...] Diagnosis Comments EGFR Routine 08/07/2024 3:23 PM CORD MAKER Type 2 diabetes mellitus with hyperglycemia, with long-term current use of insulin (HCC) POCT HEMOGLOBIN A1C Routine 08/07/2024 2 :38 PM CORD MAKER Type 2 diabetes mellitus with hyperglycemia, with long-term current use of insulin (HCC) HM DIABETES EYE EXAM Routine 10/11/2023 9:29 AM CORD MAKER ALBUMIN CREATININE RATIO, URINE Routine 08/28/2023 7:38 AM CORD MAKER LIPID PANEL Routine 08/10/2023 1:53 PM CORD MAKER Hyperlipidemia associated with type 2 diabetes mellitus (HCC) from Last 3 Months or Most Recently Relevant to Health Maintenance Results * (ABNORMAL) eGFR (08/07/2024 3:23 PM CORD MAKER) eGFR 35(L) >=60 mL/min/1. 73 m2 Comment: [...] last reviewed 2021. Blood 08/07/2024 3:23 PM CORD MAKER 08/07/2024 6:55 PM CORD MAKER Result [facility] Anthony Castillo MD LAB BLOOD ORDERABLES Final Resul t OLGA [id number] Ay[address] Cabral Department of Laboratories [place] [id number] * (ABNORMAL) POCT hemoglobin A1c (08/07/2024 2:38 PM CORD MAKER) Pathologist [facility] Hemoglobin A1C, POC 7.1 4.0 - 5.6 % Comment:None Capillary blood 08/07/2024 2 :38 PM CORD MAKER Result [facility] Anthony Castillo MD POINT OF CARE TEST ORDERABLES Fi nal Result * (ABNORMAL) DIABETES EYE EXAM (10/11/2023 9:29 AM CORD MAKER) Result [facility] Isis Salgado MD HEALTH MAINTENANCE Final Result * (ABNORMAL) Albumin Creatinine Ratio, Urine (08/28/2023 7:38 AM CORD MAKER) SCRIBED Creatinine, Urine 75.44 40 - 278 EXTERNAL LAB SCRIBED Microalbumin 13.4(A) 0.0 - 11.9 EXTERNAL LAB SCRIBED Microalb/Creat Ratio 0.18 0 - 0.20 EXTERNAL LAB Urine 08/28/2023 7:38 AM CORD MAKER us Historical Provider LAB URINE ORDERABLES Edit ed Result - Final EXTERNAL LAB * (ABNORMAL) Lipid panel (08/10/2023 1:53 PM CORD MAKER) Cholesterol 164 30 - 199 mg/dL OLGA [...] 3 [place] Blood 08/10/2023 1:53 PM CORD MAKER 08/10/2023 7:31 PM CORD MAKER us Anthony Castillo MD LAB BLOOD ORDERABLES Final Resul t [place] [id number] Ayden Cabral Department [place] [address] from Last 3 Months or Most Recently Relevant to Health Maintenance Insurance [facility] MEDICARE ADVANTAGE [facility] MEDICARE ADVANTAGE ID[employer] Care Teams Numerical Control Lathe Operator Relationship Specialty Start Date End Date Willian Mendoza MD PCP - General 02/18/16
--- OUTSIDE RECORDS SUMMARY | 2025-02-03 07:36 | XMS_ITS | Patient Health Record ---
Author Organization [facility] Address [address] [place], [place] [id number] Care Team Providers Care Garbage Collector Supervisor Name Role Phone MIRIAN MOSHER Unavailable [phone] Virgilio Meehan Unavailable Unavailable DIANE ADRIEN Unavailable [phone] WILFREDO BRODERICK Unavailable [phone] Allergies No Known Allergies Reason For Referral No Information Medications Medication SIG (Take, Route, Frequency, Duration) Notes Start Date End Date Status cholecalciferol 0.025 MG Oral Capsule ORAL cholecalciferol 0.025 MG Ora l CapsuleOriginal Medicationcholecalciferol 0.025 MG Oral Capsule *Reorder from [facility] for eRx and Interaction Alerts* 04/07/20 14 Active 3 ML insulin glargine 100 UNT/ML Pen Injector [Lantus] 3 ML insulin glargine 100 UNT/ML Pen Injector [Lantus]Original Medication3 ML insulin glargine 100 UNT/ML Pen Injector [Lantus] *Reorder from [facility] for eRx and Interaction Alerts* 04/07/20 14 Active cinnamon bark 500 MG Oral Capsule ORAL cinnamon bark 500 MG Oral CapsuleOriginal Medicationcinnamon bark 500 MG Oral Capsule *Reorder from [facility] for eRx and Interaction Alerts* 04/07/20 14 Active ciclopirox 80 MG/ML Topical Solution CUTANEOUS ciclopirox 80 MG/ML Topical SolutionOriginal Medicationciclopirox 80 MG/ML Topical Solution *Reorder from [facility] for eRx and Interaction Alerts* 04/20/20 12 Active Nabumetone 500 MG Oral Tablet ORAL nabumetone 500 MG Oral TabletOriginal Medicationnabumetone 500 MG Oral Tablet *Reorder from [facility] for eRx and Interaction Alerts* 06/29/20 12 Active verapamil hydrochloride 40 MG Oral Tablet ORAL verapamil hydrochloride 40 M G Oral TabletOriginal Medicationverapamil hydrochloride 40 MG Oral Tablet *Reorder from [facility] for eRx and Interaction Alerts* 04/07/20 14 Active propranolol hydrochloride 40 MG Oral Tablet ORAL propranolol hydrochloride 40 MG Oral TabletOriginal Medicationpropranolol hydrochloride 40 MG Oral Tablet *Reorder from [facility] for eRx and Interaction Alerts* 04/07/20 14 Active Losartan Potassium 100 MG Oral Tablet ORAL losartan potassium 100 MG Oral TabletOriginal Medicationlosartan potassium 100 MG Oral Tablet *Reorder from [facility] for eRx and Interaction Alerts* 04/07/20 14 Active Pravastatin Sodium 10 MG Oral Tablet ORAL pravastatin sodium 10 MG Ora l TabletOriginal Medicationpravastatin sodium 10 MG Oral Tablet *Reorder from [facility] for eRx and Interaction Alerts* 04/07/20 14 Active levothyroxine sodium 0.1 MG Oral Capsule ORAL levothyroxine sodium 0.1 MG Oral CapsuleOriginal Medicationlevothyroxine sodium 0.1 MG Oral Capsule *Reorder from [facility] for eRx and Interaction Alerts* 04/07/20 14 Active esomeprazole 20 MG Injection INTRAVENOUS esomeprazole 20 MG InjectionOriginal Medicationesomeprazole 20 MG Injection *Reorder from [facility] for eRx and Interaction Alerts* 04/07/20 14 Active Spironolactone 25 MG Oral Tablet ORAL spironolactone 25 MG Oral TabletOriginal Medicationspironolactone 25 MG Oral Tablet *Reorder from [facility] for eRx and Interaction Alerts* 04/07/20 14 Active Allopurinol 300 MG Oral Tablet ORAL allopurinol 300 MG Oral TabletOriginal Medicationallopurinol 300 MG Oral Tablet *Reorder from [facility] for eRx and Interaction Alerts* 04/07/20 14 Active nortriptyline 50 MG Oral Capsule ORAL nortriptyline 50 MG Oral CapsuleOriginal Medicationnortriptyline 50 MG Oral Capsule *Reorder from [facility] for eRx and Interaction Alerts* 04/07/20 14 Active Immunizations Vaccine Route Administration Date Status Comme nts Influenza, unspecified formulation Unknown 06/30/2023 A dministered Vital Signs Height-cm 170.18 cm 02/08/2024 Weight-kg 113.85 kg 02/08/2024 Height 67.00 in 02/08/2024 Weight 251 lbs 02/08/2024 BMI 39.31 kg/m2 02/08/2024 Encounters Encounter Location Date Provider Diagnosis [address] [id number] 01/02/2025 WILFREDO BRODERICK Tinea unguium B35.1 ; Acquired 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 ; Atherosclerosis of [place] arteries of extremities with intermittent claudication, bilateral legs I70.213 ; Pain in right foot M79.671 and Pain in left foot M79.[address] [id number] 02/08/2024 ADRIEN CONTRERAS Unspecified atherosclerosis of [place] arteries of extremities, bilateral legs I70.203 ; Tinea unguium B35.1 ; Pain in left toe(s) M79.675 ; Other hammer toe(s) (acquired), right foot M20.41 ; Other hammer toe(s) (acquired), left foot M20.42 and Pain in right toe(s) M79.674 [facility] [address] [place], [place] [id number] 04/11/2024 ADRIEN CONTRERAS Unspecified atherosclerosis of [place] arteries of extremities, bilateral legs I70.203 ; Tinea unguium B35.1 ; Pain in left toe(s) M79.675 ; Other hammer toe(s) (acquired), right foot M20.41 ; Other hammer toe(s) (acquired), left foot M20.42 ; Pain in right toe(s) M79.674 and Acquired 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 [id number] 10/10/2024 MIRIAN MOSHER Tinea unguium B35.1 ; Acquired 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 ; Atherosclerosis of [place] arteries of extremities with intermittent claudication, bilateral legs I70.213 ; Pain in right foot M79.671 and Pain in left foot M79.672 [facility] [place] [address] [facility] [address] [place], [place] [id number] 01/29/2025 MIRIAN MOSHER [facility] [place] [address] [facility] [address] [place], [place] [id number] 12/09/2024 MIRIAN MOSHER Assessments Encounter Date Diagnosis [...] and prescription treatments. 02/08/2024 Unspecified atherosclerosis of [place] arteries of extremities, bilateral legs (ICD-10 - [...] and prescription treatments. 04/11/2024 Unspecified atherosclerosis of [place] arteries of extremities, bilateral legs (ICD-10 - [...] utilizing a #15 blade 01/02/2025 Atherosclerosis of [place] arteries of extremities with intermittent claudication, bilateral legs (ICD-10 - I70.213) Check and protect LE bilateral daily. Call if any changes or concerns. 10/10/2024 Atherosclerosis of [place] arteries of extremities with intermittent claudication, bilateral [...] Details Provider Name:WILFREDO MARTIN, 03/06/2025 01:30:00 PM, [address] [place] [address], [id number], Insurance Providers Payer Name Payer Address Payer Phone Subscriber Number Group Number Insured Name Patient Relationship to Insured Coverage Start Date Coverage End Date [facility] [address] [address] [place] [id number] MATEUSZ MONROE Self - patient is the insured
--- OUTSIDE RECORDS SUMMARY | 2025-02-03 07:36 | XMS_ITS | Encounter Summary ---
Author Organization [facility] Address [facility]ly [facility], [address] [place] [address] Care Team Providers Care Wedding Day Coordinator Name Role Phone Alexis Thurman MD Unavailable [phone] Willian Mendoza MD Primary Care Provider [phone] Cee Liu APRN, MAKING DEPARTMENT PREPARER-C Unavailable [phone] Virgilio Meehan DO Primary Care Provider [phone] Mame Osborn MD Unavailable [phone] Encounter Details Date Type Department Care Team (Late st Contact Info) Description 06/24/2022 Hospital Orders Only [place] [facility] Pre/Post [address] [place] [address] Alexis Thurman MD [address] [place] [address] Social History Tobacco Use Types [...] Description 05/12/2025 1:30 PM CDT Office Visit [facility] el [address] [place] [phone] Cee Liu APRN, MAKING DEPARTMENT PREPARER-C [address] [facility] [address] [phone] documented as of this encounter Visit Diagnoses Not on filedocumented in this encounter Care Teams Wedding Day Coordinator Relationship Specialty Start Date End Date Willian Mendoza MD [address] [place] [address] PCP - General INTERNAL MEDICINE 09/14/18 09/07/22 Virgilio Meehan DO [address] [place] [address] PCP - General FAMILY PRACTICE 09/08/22 Alexis Thurman MD [address] [place] [phone] [place] Mangle Press Catcher CARDIOVASCULAR DISEASE 09/14/18 04/01/24 Cee Liu APRN, MAKING DEPARTMENT PREPARER-C [address] [phone] NURSE PRACTITIONER 05/27/22 Mame Osborn MD [address] [place], [place] [phone] INTERVENTIONAL CARDIOLOGY 05/10/24 documented as of this encounter
--- OUTSIDE RECORDS SUMMARY | 2025-02-03 07:36 | XMS_ITS ---
Author Organization [facility] Address [address] [place], [place] [address] Care Team Providers Care Radio Electrician Name Role Phone MIRIAN MOSHER Unavailable [phone] Virgilio Mehean Unavailable Unavailable WILFREDO BRODERICK Unavailable [phone] REASON FOR VISIT *General care Encounters Encounter Location Date Provider Diagnosis [address] [id number] 12/12/2024 WILFREDO BRODERICK Plan Of Treatment Next Appt Details Provider Name:WILFREDO MARTIN, 03/06/2025 01:30:00 PM, [address] [place] [address], [phone], Progress Notes * MATEUSZ MONROE ADOB:[birth year] (59 yo F)Acc No.[id number]:12/12/2024 Patient: MATEUSZ ZHU Provider: Gavi BRODERICK :1965 A ge:59 Y S ex:Female Date:12/12/2024 Address:[address] [place], [place] [id number] Subjective: * Chief Complaints: * 1 . *General care. * Medical History: Objective: * Vitals: Assessment: Plan: * Treatment: * Billing Information: * Visit Code: * Procedure Codes: * Electronic signature of KINA BRODERICK DPM on 02/03/2025 at 07:36 AM CDT Sign off status: Pending * Provider: Gavi BRODERICK Date: 0 12/12/2024 Generated for Curt small/Ana Maria/Jose on: 0 02/03/2025 07:36 AM FARRAH
--- OUTSIDE RECORDS SUMMARY | 2025-02-03 07:36 | XMS_ITS | Encounter Summary ---
Author Organization [facility] Address [facility] [place] [address] Care Team Providers Care Supervisor Conditioning Yard Name Role Phone Cee Liu APRN, HALL PORTER-C Unavailable Virgilio Meehan DO Primary Care Provider [phone] Mame Osborn MD Unavailable [phone] Encounter Details Date Type Department Care Team (Late Contact Info) Description 11/12/2024 Abstract [facility] [address] [place] [address] Ella Witt MD [address] [place] [address] Social History Tobacco Use Types Packs/Day Years [...] Description 05/12/2025 1:30 PM CDT Office Visit [facility] eld [address] [place] [address] Cee Liu APRN, HALL PORTER-C [address] [facility] [address] [place] [phone] documented as of this encounter Visit Diagnoses Not on filedocumented in this encounter Care Teams Supervisor Conditioning Yard Relationship Specialty Start Date End Date Virgilio Meehan DO [address] [place] [address] PCP - General FAMILY PRACTICE 09/08/22 Cee Liu, BENZENE STILL UTILITY OPERATOR, HALL PORTER-C [address] [facility] [address] [place] [address] NURSE PRACTITIONER 05/27/22 Mame Osborn MD [address] [place] [address] INTERVENTIONAL CARDIOLOGY 05/10/24 documented as of this encounter
--- OUTSIDE RECORDS SUMMARY | 2025-02-03 07:36 | XMS_ITS | Continuity of Care Document ---
Author Organization [facility] Address [address] [facility] [address] [place] [address] Phone Care Team Providers Care Lamp Shades Supervisor Name Role Phone Nilson Vaughna Unavailable Unavailable Procedures Procedure Date Eye Exam [...] Diagnoses Date Provider Providers Copied on Encounter [facility], [address], [place], [place], [id number], [place] tel:[phone] [facility] No Information Clement Devine. [address] [place], [address], [place]. tel:[phone] Referring Provider: Nilson Stewart, [address] [place], [address]. tel:[phone] [facility] Eye [facility], [address], [place], [place], [id number], [place] tel:[phone] [facility] No Information Clement Devine. [address] [place], [address], [place]. tel:[phone] Referring Provider: Nilson Stewart, [address] [place], [address]. tel:[phone] [facility], [address], [place], [place], [id number], [place] tel:[phone] [facility] No Information Clement Devine. [address] [place], [address], [place]. tel:[phone] Referring Provider: Nilson Stewart, [address] [place], [address]. tel:[phone] [facility], [address], [place], [place], [id number], [place] tel:[phone] [facility] No Information Clement Devine. [address] [place], [address], [place]. [phone] Referring Provider: Nilson Stewart, [address] [place], [address]. tel:[phone] [facility], [address], [place], [place], [id number], [place] tel:[phone] [facility] No Information Clement Devine. [address] [place], [address], [place]. tel:[phone] [facility], [address], [place], [place], [address], [place] tel:[phone] [facility] No Information Clement Devine. [address] [place], [address], [place]. tel:[phone] Referring Provider: Nilson Stewart, [address] [place], [address]. tel:[phone] Office/outpat ient Visit, [facility], [address], [place], [place], [id number], [place] tel:[phone] [facility] No Information Clement Devine. [address] [place], [address], [place]. tel:[phone] Family History Family Member Type Diagnosis Age At Onset No Information Payers Payer name Insurance type Covered republican ID Authorshiloha tiisaiah(s) Medicaid [facility] [id number] Social History Type Description Quantity Date Captured [...]
--- OUTSIDE RECORDS SUMMARY | 2025-02-03 07:36 | XMS_ITS | Encounter Summary ---
Author Organization [facility] Address Formerly [facility] [place] [address] Care Team Providers Care Deputy Head Name Role Phone Alexis Thurman MD Unavailable Cee Liu APRN, NP-C Unavailable Virgilio Meehan DO Primary Care Provider Mame Osborn MD Unavailable [phone] Encounter Details Date Type Department Care Team (Late Contact Info) Description 09/23/2022 [facility] [address] [place] [phone] Alexis Thurman MD [address] [place] [address] Social History Tobacco Use Types [...] Coronavirus/COVID-19? No / Unsure 09/08/2022 8:48 AM BANK OPERATIONS OFFICER documented as of this encounter Plan of Treatment Upcoming Encounters Date Type Department Care Team (Late Contact Info) Description 05/12/2025 1:30 PM CDT Office Visit [facility] [address] [place] [address] Cee Liu APRN, CHEMICAL PLANT TECHNICAL DIRECTOR-C [address] [facility] [address] [place] [phone] documented as of this encounter Visit Diagnoses Not on filedocumented in this encounter Care Teams Deputy Head Relationship Specialty Start Date End Date Virgilio Meehan DO [address] [place] [address] PCP - General FAMILY PRACTICE 09/08/22 Alexis Thurman MD [address] [place] [phone] [place] Publicist CARDIOVASCULAR DISEASE 09/14/18 04/01/24 Cee Liu APRN, CHEMICAL PLANT TECHNICAL DIRECTOR-C [address] [facility] [address] [phone] NURSE PRACTITIONER 05/27/22 Mame Osborn MD [address] [place] [address] INTERVENTIONAL CARDIOLOGY 05/10/24 documented as of this encounter
[2025-02-03 07:49] VITALS: BP 125/68; PULSE 78; RESP 14; TEMP 36.6; O2SAT 99; BMI 36.2
[2025-02-03] MEDS: CYANOCOBALAMIN INJ 1,000 MCG/ML VIAL 1000 MCG IM (08:00)
[2025-02-03] MEDS: MAGNESIUM SULFATE IVPB (08:15)
[2025-02-03] MEDS: SODIUM CHLORIDE 0.9% IVPB (08:15)
[2025-02-03 11:24] VITALS: BP 113/69; PULSE 68; RESP 14
--- NOTE | 2025-02-03 11:25 | PC.NURSE ---
Tolerated Magnesium infusion and B12 injection well. SEE MAR/patient care notes.
== END 2025-02-03 07:31 | disposition home or self-care (01) ==
PROVIDERS: PCP Family Medicine; Visit Provider Nurse Practitioner Family
DX: D51.9 Vitamin B12 deficiency anemia, unspecified (principal); E83.42 Hypomagnesemia
CPT/HCPCS: 96365; 96366; 96372; J3420; J3475; J7050

== ENCOUNTER 2025-02-10 12:47 | Outpatient (CLI) | payer MEDICARE, MEDICAID, SELFPAY ==
--- NOTE | ~2025-02-10 | DEXA_ITS ---
Bone Density Report Name: MATEUSZ MONROE Age: 59 Sex: Female Ethnicity: White Date of : 1965 Indication: postmenopausal; screening for osteoporosis; inflammatory bowel disease; Referring Provider: MANUELA SOLIS Study: Bone densitometry was performed. Exam Date: February 10, 2025 Accession number: [id number] Bone Density: Region BMD T-score Z-score Classification AP Spine(L1-L4) 1.620 5.2 6.4 Normal Femoral Neck (Left) 1.386 4.8 6.0 Normal Total Hip (Left) 1.378 3.6 4.4 Normal Femoral Neck (Right) 1.102 2.3 3.4 Normal Total Hip (Right) 1.282 2.8 3.6 Normal Femoral Neck Mean 1.244 3.6 4.7 Normal Total Hip Mean 1.330 3.2 4.0 Normal World Health Organization criteria for BMD impression classify patients as: Normal (T-score at or above -1.0), Osteopenia (T-score between -1.0 and -2.5), or Osteoporosis (T-score at or below -2.5). 10-year Fracture Risk: FRAX not reported because: All T-scores for Spine Total, Hip Total, Femoral Neck at or above -1.0 Previous Exams: Region Exam Age BMD T-score BMD Change BMD Change Date g/cm2 vs Baseline vs Previous AP Spine (L1-L4) 02/10/2025 59 1.620 5.2 0.013 (0.8%)# 0.013 (0.8%)# 10/25/2022 57 1.607 5.1 Total Hip(Left) 02/10/2025 59 1.378 3.6 -0.025 (-1.8%) -0.025 (-1.8%) 10/25/2022 57 1.402 3.8 Total Hip(Right) 02/10/2025 59 1.282 2.8 -0.033 (-2.5%) -0.033 (-2.5%) 10/25/2022 57 1.314 3.1 *Denotes significance at 95% confidence level, LSC for AP Spine = 0.022 g/cm2, LSC for Total Hip = 0.027 g/cm2 # Denotes dissimilar scan types or analysis methods Clinical Information Provided by Patient: Has used the following medications: Vitamin D, Vitamin B Complex, Vitamin C, Magnesium (injection X 1/month), B12 injection X 1/month, Levothyroxine Has the following medical conditions: Inflammatory bowel diseases, CKD, Hypothyroidism Patient maximum height was 67 No regular weight bearing exercise Does not regularly consume dairy products Drinks caffeinated beverages Number of children 0 Impression: The patient has normal bone mass. The BMD for the Total Hip(Right) decreased, changing by -2.5% since the last DXA exam. Discussion: LOW RISK OF FRACTURE; BONE DENSITY IS WELL ABOVE THE MINIMUM DESIRABLE LEVEL AND ABOVE AVERAGE FOR AGE AND SEX AT ALL SKELETAL SITES TESTED. This person's bone density is above expected limits for age and sex. This is rarely clinically significant, but should be pursued if there are significant musculoskeletal complaints. The patient should follow a healthful lifestyle (good nutrition with adequate calcium and vitamin D, and appropriate weight-bearing exercise). Follow-Up: Consider repeating this study in 3 to 4 years to reassess this patient's status, or sooner if there is some new clinical indication. Reported by: NERISSA on 02/10/2025 1:31:00 PM. Reviewed, dictated and finalized at location A.
--- NOTE | ~2025-02-10 | MM_ITS ---
EXAMINATION: MM screening [facility] BI w ir[facility] HISTORY: Screening mammogram TECHNIQUE: Craniocaudal and mediolateral oblique 3-D tomosynthesis images were obtained and synthetic 2-D images were generated. CAD analysis was submitted and interpreted. COMPARISON: 02/09/2024, 02/01/2023 01/10/2022, 11/25/2020 BREAST PARENCHYMAL COMPOSITION:Not Dense. There are scattered areas of fibroglandular density. FINDINGS: No suspicious mass, calcification, or architectural distortion are identified in either kathrin ast to suggest malignancy. There has been no suspicious interval change. IMPRESSION: No mammographic evidence of malignancy. Recommend routine screening mammography in one year. BI-RADS Category 1: Negative Reviewed, dictated and finalized at location .
== END 2025-02-10 12:48 | disposition home or self-care (01) ==
LOC: CHSIMG 12:49
PROVIDERS: PCP Family Medicine; Visit Provider Nurse Practitioner Family
DX: Z12.31 Encounter for screening mammogram for malignant neoplasm of breast (principal); Z78.0 Asymptomatic menopausal state
CPT/HCPCS: 77063; 77067; 77080

== ENCOUNTER 2025-02-12 11:46 | Outpatient (CLI) | payer MEDICARE, SELFPAY ==
--- NOTE | ~2025-02-12 | XR_ITS ---
EXAMINATION: XR lg joint inject/asp w image, XR lg joint inject/asp add DATE: 02/12/2025 13:17 INDICATION: Left and right hip osteoarthritis TECHNIQUE: A time-out was performed to verify the patient's name, date of , and procedure to b e performed. The procedure including the risks, benefits, and alternatives was discussed with the pat ient. Risks discussed included bleeding and infection. The patient understood the risks and agreed to proceed. Attention was first turned to the right hip. The skin overlying the right hip joint was pre pped and draped in usual sterile fashion. Anesthetic was administered with 1% lidocaine subcutaneous ly. A 22 G needle was advanced under fluoroscopic guidance into the joint. Injection of 1 mL of Omn ipaque 240 confirmed intra-articular position of the needle. Subsequently, injectate consisting of 3 mL of a 2:1 mixture of 0.5% bupivacaine: 80 mg/mL Depo-Medrol for a total dosage of 80 mg Depo-Medro l was instilled. Washout of contrast was seen confirming intra-articular administration. The needle w as removed and the entry site was cleaned and dressed. Attention was then turned to the contralateral left hip. The skin overlying the left hip joint was pr epped and draped in usual sterile fashion. Anesthetic was administered with 1% lidocaine subcutaneou sly. A 22 G needle was advanced under fluoroscopic guidance into the joint. Injection of 1 mL of Om nipaque 240 confirmed intra-articular position of the needle. Subsequently, injectate consisting of 3 mL of a 2:1 mixture of 0.5% bupivacaine: 80 mg/mL Depo-Medrol for a total dosage of 80 mg Depo-Medr ol was instilled. Washout of contrast was seen confirming intra-articular administration. The needle was removed and the entry site was cleaned and dressed. There were no immediate complications. Fluoro scopy exposure time for the combined procedures was 0.4 minutes. The total number of images was 4. To mari DAP was 2.19 Gycm^2 FINDINGS: Real-time fluoroscopy demonstrates the needle and injected contrast first within the right hip joint and subsequently within the left hip joint. Patient's pain prior to procedure:5/10 on the r ight and 8/10 on the left. Patient's pain following the procedure: 0/10 on both the left and right. IMPRESSION: 1. Successful left hip joint injection of local anesthetic and steroid with decrease in the patient's presenting pain. 2. Successful right hip joint injection of local anesthetic and steroid with decrease in the patient' s presenting pain. Reviewed, dictated and finalized at location A. IMPRESSION: 1. Successful left hip joint injection of local anesthetic and steroid with dec rease in the patient's presenting pain. 2. Successful right hip joint injection of local anesthetic and steroid with de crease in the patient's presenting pain.
== END 2025-02-12 11:47 | disposition home or self-care (01) ==
PROVIDERS: PCP Family Medicine; Visit Provider Orthopaedic Surgery
DX: M16.0 Bilateral primary osteoarthritis of hip (principal)
CPT/HCPCS: 20610; 77002; J1010; Q9966

== ENCOUNTER 2025-03-03 06:54 | Outpatient (CLI) | payer MEDICARE, MEDICAID, SELFPAY ==
--- NOTE | ~2025-03-03 | XR_ITS ---
Right ankle Technique: AP, oblique, and lateral views were obtained. Clinical History: Ankle deformity Findings: No acute fracture or dislocation is seen. Old, healed fracture of the tibial shaft noted. P robable chronic avulsion fracture from the tip of the lateral malleolus. There is advanced degenerati ve change of the tibiotalar joint, joint space narrowing and extensive bony productive change. Soft t issues are otherwise unremarkable. Impression: No change from prior exam. 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 Reviewed, dictated and finalized at location M. Impression: No change from prior exam. Severe tibiotalar joint degenerative change with chr onic avulsion fracture from the lateral malleolus tip.
--- OUTSIDE RECORDS SUMMARY | 2025-03-03 07:01 | XMS_ITS | Encounter Summary ---
Author Organization [facility] Address [facility] [place] [address] Care Team Providers Care Compliance Review Officer Name Role Phone Aleixs Thurman MD Unavailable [phone] Willian Mendoza MD Primary Care Provider [phone] Cee Liu APRN, CASE FINISHING MACHINE ADJUSTER-C Unavailable Virgilio Meehan DO Primary Care Provider [phone] Mame Osborn MD Unavailable [phone] Encounter Details Date Type Department Care Team (Late st Contact Info) Description 10/12/2018 Abstract [facility] [address] [place] [address] Abstract, Doc [facility] Social History [...] 05/12/2025 1:30 PM CDT [facility] [address] [place] [phone] Cee Liu APRN, CASE FINISHING MACHINE ADJUSTER-C [address] [facility] [address] [place] [phone] documented as of this encounter Visit Diagnoses Not on filedocumented in this encounter Care Teams Compliance Review Officer Relationship Specialty Start Date End Date Willian Mendoza MD [address] [place] [address] PCP - General INTERNAL MEDICINE 09/14/18 09/07/22 Virgilio Meehan DO [address] [place] [address] PCP - General FAMILY PRACTICE 09/08/22 Alexis Thurman MD [address] [place] [phone] [place] Belt Press Operator CARDIOVASCULAR DISEASE 09/14/18 04/01/24 Cee Liu APRN, CASE FINISHING MACHINE ADJUSTER-C [address] [facility] [address] [place] [phone] NURSE PRACTITIONER 05/27/22 Mame Osborn MD [address], [place] [phone] INTERVENTIONAL CARDIOLOGY 05/10/24 documented as of this encounter
--- OUTSIDE RECORDS SUMMARY | 2025-03-03 07:01 | XMS_ITS | Referral Summary ---
Author Organization [address] Address [address] [place] [address] Care Team Providers Care Hospital Coder Name Role Phone Willian Mendoza MD Primary Care Provider [phone] Encounters Date Type Department Care Team Description 02/27/2025 Results Follow-Up [facility] [address] [address] Anthony Castillo MD Comprehensive metabolic panel 02/27/2025 Telephone [facility] [address] [address] Anthony Castillo MD 02/25/2025 Telephone [facility] [address] [address] Anthony Castillo MD MED Supply 02/18/2025 3:40 PM CDT Lab [address] [address] Type 2 diabetes mellitus with hyperglycemia, with long-term current use of insulin (HCC) 02/18/2025 3:15 PM CDT Office Visit [facility] [address] [address] Anthony Castillo MD Type 2 diabetes mellitus with hyperglycemia, with long-term current use of insulin (HCC) (Primary Dx) 02/06/2025 Telephone [facility] [address] [address] Anthony Castillo MD 02/04/2025 Telephone [facility] [address] [address] Anthony Castillo MD certificate of medical necessity from Last 3 Months Allergies Active Allergy [...] Patient taking differently:20 mgoral Daily, Reported on 02/18/2025 losartan (COZAAR) 50 mg tablet take 2 tablet by oral route every day 0 0 10/27/19 16 Active Additional Information Patient taking differently: 100 mg oral Daily, Reported on 02/18/2025 magnesium gluconate (MAGONATE) 500 mg (27 mg elemental) tabletIndications :hypomagnesemia Take 1 tablet (500 mg total) by mouth 2 (two) times a day Active gafkyyvaiooo-Ax-u marva-minerals tablet Take 1 tablet by mouth [...] TIMES A DAY 400 each 1 09/12/19 Active fluticasone propionate (FLONASE) 50 mcg/actuation nasal spray 12/17/19 Active HYDROcodone-aceta minophen (NORCO) 7.5-325 mg per tablet 12/17/19 Active ferrous sulfate 325 mg (65 mg of elemental iron) tablet Take 1 tablet (325 mg total) by mouth 2 (two) times a day Active cholecalciferol (VITAMIN D-3) 4,000 unit capsule Active lancets (TRUEplus Lancets) 28 gauge miscIndications:T ype 2 diabetes mellitus with hyperglycemia, with long-term current use of insulin ([facility]) USE FOR TESTING FOUR TIMES A DAY DIRECTED 400 each 3 03/21/20 22 Active pen needle, diabetic (TRUEplus Pen Needle) 31 gauge x 3/16 needle Use to inject insulin up to 5 times daily 450 each 2 03/21/20 22 Active alcohol swabs (BD Alcohol Swabs) pads, medicatedIndicati ons:Type 2 diabetes mellitus with hyperglycemia, with long-term current use of insulin ([facility]) USE DIRECTED 4 TIMES DAILY 400 each 2 07/08/20 22 Active isosorbide mononitrate ER (IMDUR) 30 mg 24 hr tablet Take 1 tablet (30 mg total) by mouth daily Active nitrofurantoin (MACRODANTIN) 100 mg capsule 05/26/20 23 Active propranolol LA (INDERAL LA) 60 mg 24 hr capsule 07/02/20 23 Active magnesium hydroxide 600 mg tablet,chewable Take 1 tablet by mouth 2 (two) times a day Active ondansetron ODT (ZOFRAN-ODT) 4 mg disintegrating tablet 01/17/20 24 Active levothyroxine (SYNTHROID) 100 mcg tablet Take 1 tablet (100 mcg total) by mouth director of early childhood education before breakfast 90 tablet 3 08/07/20 24 Active Farxiga 10 mg tabletIndications :Type 2 diabetes mellitus with hyperglycemia, with long-term current use of insulin ([facility]) TAKE 1 TABLET BY MOUTH DAILY 100 tablet 2 09/04/19 25 Active blood-glucose sensor device Change sensors every 10 days Dx. E11.65 9 each 3 09/11/19 25 Active Ozempic 2 mg/dose (8 mg/3 mL) pen injector injectionIndicati ons:Type 2 diabetes mellitus with hyperglycemia, with long-term current use of insulin ([facility]) INJECT SUBCUTANEOUSLY 2 MG EVERY WEEK 9 mL 3 12/21/19 25 Active amitriptyline (ELAVIL) 25 mg tablet 02/13/20 25 Active verapamil SR (CALAN SR) 120 mg CR tablet Take 1 tablet (120 mg total) by mouth daily 09/10/19 20 025 Disconti nued(Oth er) cetirizine (ZyrTEC) 10 mg tablet Take 1 tablet (10 mg total) by mouth daily 025 Disconti nued(Oth er) DULoxetine DR (CYMBALTA) 20 mg capsule Take 1 capsule (20 mg total) by mouth daily 03/30/20 21 025 Disconti nued(Oth er) cholestyramine (QUESTRAN) 4 gram powder 08/06/20 23 025 Disconti nued(Oth er) dicyclomine (BENTYL) 20 mg tablet 07/25/20 23 025 Disconti nued(Oth er) doxycycline 100 mg tablet 06/06/20 23 025 Disconti nued(Oth er) pancrelipase (CREON) 3,000 units of lipase capsuleIndication s:exocrine pancreatic insufficiency Take 1 capsule by mouth 3 (three) times a day Pt stated really unsure of dose 025 Disconti nued(Oth er) cyclobenzaprine (FLEXERIL) 10 mg tablet 02/07/20 24 025 Disconti nued(Oth er) Creon 36,000-114,000- 180,000 unit capsule 02/01/20 24 025 Disconti nued(Oth er) insulin aspart (NovoLOG) 100 unit/mL (3 mL) pen for injection Inject under the skin 025 Disconti nued(Oth er) Active Problems Problem Noted Date Diagnosed Date Abdominal pain in female 02/18/2025 Abdominal pain, LLQ 02/18/2025 Abnormal urinalysis 02/18/2025 Arthritis 02/18/2025 Overview (02/18/2025): Phreesia 06/01/2021 Dysuria 02/18/2025 Gastroesophageal reflux disease 02/18/2025 Overview (02/18/2025): Phreesia 06/01/2021 Glucosuria 02/18/2025 Left flank pain 02/18/2025 Renal cyst, acquired, right 02/18/2025 Overview (02/18/2025): Simple appearing cyst on renal bladder ultrasound at [place] dated 08/26/2022. Diabetes mellitus 02/18/2025 Overview (02/18/2025): Phreesia 06/01/2021 H/O gastric sleeve 01/09/2024 Iron deficiency anemia 08/31/2023 Stage 3b chronic kidney disease 08/31/2023 Hypertension, essential 08/31/2023 Overview (02/18/2025): Phreesia 06/01/2021 Hypomagnesemia 05/07/2023 Acquired hypothyroidism 03/17/2022 Assessment & Plan (08/07/2024 5:51 PM MANAGER STRATEGIC DEVELOPMENT): Chronic, stable. Continue levothyroxine Update TFTs Assessment & Plan (08/10/2023 3:53 PM MANAGER STRATEGIC DEVELOPMENT): Chronic, well-controlled Importance of taking levothyroxine on [...] one as she has questions. Referral placed. Bilateral hydronephrosis 06/28/2021 Sleep apnea 11/06/2018 CKD (chronic kidney disease) stage 3, GFR 30-59 ml/min 04/17/2018 Hyperlipidemia associated with type 2 diabetes verenice cormier 04/17/2018 Assessment & Plan (08/07/2024 5:51 PM MANAGER STRATEGIC DEVELOPMENT): Chronic, stable Update lipid profile Continue statin therapy Assessment & Plan (08/10/2023 3:53 PM MANAGER STRATEGIC DEVELOPMENT): Chronic, well-controlled Continue statin therapy with Pravachol Assessment & Plan (01/17/2023 1:59 PM CDT): Chronic, well controlled Low fat Low cholesterol diet Exercise Continue statin therapy with Pravachol Assessment & Plan (03/17/2022 9:47 AM CDT): Chronic problem. On statin therapy, no changes. Assessment & Plan (10/28/2021 1:21 PM MANAGER STRATEGIC DEVELOPMENT): Chronic problem. On statin therapy, no changes. [...] Pravachol Assessment & Plan (09/27/2019 9:29 AM MANAGER STRATEGIC DEVELOPMENT): LDL at goal. Trigs elevated. Continue statin [...] therapy Assessment & Plan (08/07/2018 1:59 PM MANAGER STRATEGIC DEVELOPMENT): At goal on current medications. Assessment & [...] and advised. Daily exercise On statin therapy Allergic rhinitis 12/11/2017 Cough 12/11/2017 Difficulty breathing 12/11/2017 Morbid obesity 04/06/2017 Assessment & Plan (04/15/2021 3:19 PM CDT): Continue following plan for reduced portions . Assessment & Plan (05/28/2020 4:25 PM CDT): Diet and exercise Will retry Phentermine Assessment & Plan (12/26/2019 2:59 PM CDT): S/p gastric sleeve Will restart Phentermine SE dicussed Assessment & Plan (09/27/2019 9:29 AM MANAGER STRATEGIC DEVELOPMENT): Continues to do well with wt loss [...] adjusted. Assessment & Plan (08/07/2018 1:59 PM MANAGER STRATEGIC DEVELOPMENT): Continues to gain weight. Little attempt at diet and exercise. Reviewed importance of avoiding juice, soda, high fat, high carb foods. Assessment & Plan (10/05/2017 2:49 PM MANAGER STRATEGIC DEVELOPMENT): Diet and exercise were discussed. 1200 Calorie diet advised 45-60 min aerobic / resistance exercise most days of the week recommended. Bariatric surgery medically indicated Assessment & Plan (07/20/2017 4:17 PM MANAGER STRATEGIC DEVELOPMENT): Importance of following diet and exercising discussed. Assessment & Plan (04/06/2017 4:27 PM CDT): Extensive discussion regarding need to eliminate all sweets and no regular soda in diet. Timing, spacing and portions discussed. Morbid obesity due to excess calories 04/06/2017 Overview (02/18/2025): Last Assessment & Plan: Continues to gain weight. Little attempt at diet and exercise. Reviewed importance of avoiding juice, soda, high fat, high carb foods. Congenital malformation 04/28/2016 Overview (02/18/2025): Congenital anomaly;Recorded Elsewhere: No Location: [facility] Source: EHR Chronic: N Practice ID: [id number] Billable Time: 03:30:00 PM Vitamin D deficiency 10/08/2015 Stage 3 chronic kidney disease 10/08/2015 Hypertension associated with diabetes 09/19/2012 Overview (11/23/2016): Unspecified essential hypertension Assessment & Plan (02/13/2024 4:29 PM CDT): Chronic, well-controlled. Continue current regimen including losartan 100 mg daily Assessment & Plan (03/17/2022 9:46 AM CDT): Controlled on current medications, no changes. Assessment & Plan (10/28/2021 1:21 PM MANAGER STRATEGIC DEVELOPMENT): Controlled on current medications, no changes. Assessment [...] microalbumin Assessment & Plan (09/27/2019 9:29 AM MANAGER STRATEGIC DEVELOPMENT): Controlled on current medications. Continue plan. Assessment & Plan (06/06/2019 2:49 PM CDT): Controlled on current medications. Continue plan. Assessment & Plan (11/01/2018 2:04 PM CDT): Goal blood pressure is less than 140/85 Low salt diet recommended Daily aerobic exercise Continue current meds, including ALYCE-I or ARB Assessment & Plan (08/07/2018 2:00 PM MANAGER STRATEGIC DEVELOPMENT): Controlled on current medications. Assessment & Plan (04/17/2018 2:07 PM CDT): Goal blood pressure is less than 140/85 Low salt diet recommended Daily aerobic exercise Continue current meds, including ALYCE-I or ARB Assessment & Plan (10/05/2017 2:50 PM MANAGER STRATEGIC DEVELOPMENT): Goal blood pressure is less than 140/85 Low salt diet recommended Daily aerobic exercise Continue current meds, including ALYCE-I or ARB Assessment & Plan (07/20/2017 4:18 PM MANAGER STRATEGIC DEVELOPMENT): Controlled on current medications. Assessment & Plan (04/06/2017 4:28 PM CDT): At goal on current medications. Hyperlipidemia 09/19/2012 Overview (11/24/2016): HYPERLIPIDEMIA NEC/NOS Assessment & Plan (06/06/2019 2:49 PM CDT): Lipid panel ordered Assessment & Plan (07/20/2017 4:18 PM MANAGER STRATEGIC DEVELOPMENT): Will check lipid panel Assessment & Plan (04/06/2017 4:28 PM CDT): Check labs and focus on low fat foods Furuncle of trunk 06/28/2012 Overview (11/23/2016): Carbuncle and furuncle of trunk Type 2 diabetes mellitus 06/28/2012 Overview (11/24/2016): DMII WO CMP UNCNTRLD Assessment & Plan (08/07/2024 5:50 PM MANAGER STRATEGIC DEVELOPMENT): Chronic, stable Diet and exercise were emphasized Continue Farxiga and Ozempic Assessment & Plan (02/13/2024 4:29 PM CDT): Chronic, well-controlled. Continue Ozempic 2 mg weekly Farxiga 10 mg Importance of diet and exercise was discussed Assessment & Plan (08/10/2023 3:52 PM MANAGER STRATEGIC DEVELOPMENT): Chronic, well-controlled, with some postprandial hyperglycemia Continue [...] Farxita Assessment & Plan (07/19/2022 1:34 PM MANAGER STRATEGIC DEVELOPMENT): Hba1c was Lab Results Component Value Date [...] today. Assessment & Plan (10/28/2021 1:43 PM MANAGER STRATEGIC DEVELOPMENT): Chronic problem, not at goal. Increase NL [...] Novolog, 12 units with dinner only Continue Bymildredreisaiah and Farxiga. Assessment & Plan (05/28/2020 4:24 [...] breakfast Assessment & Plan (09/27/2019 9:31 AM MANAGER STRATEGIC DEVELOPMENT): A1c increased to 7.8. Pattern acceptable during [...] discussed. Assessment & Plan (08/07/2018 2:02 PM MANAGER STRATEGIC DEVELOPMENT): A1c 8.1. Baseline BG reported at goal. [...] discussed. Assessment & Plan (10/05/2017 2:51 PM MANAGER STRATEGIC DEVELOPMENT): Hba1c was . 9.6 . today, indicating [...] discussed. Assessment & Plan (07/20/2017 4:17 PM MANAGER STRATEGIC DEVELOPMENT): A1c improved 8.7, ~ 2%. Mostly from [...] Resolved Date BMI 50.0-59.9, adult 04/17/2018 020 Immunizations Immunization Administration Dates Next Due DTP 11/07/1969, 8,05/08/1968,04/10 Hep A, Adult 07/25/2006 Influenza, Quadrivalent, Spl it, Intramuscular 04/20/2017,05/23/2014 Influenza, Quadrivalent, Spl it, Preservative Free, Intramuscular 05/13/2019,05/17/2018,05/04/2016 Influenza, Trivalent, IM (MDV) 04/02/2015,2012 Influenza, Trivalent, Split, Preservative Free, Intradermal 05/02/2012 MMR 01/25/1991 Measles 12/02/1968 Mumps 02/04/1969 Pneumococcal Polysaccharide PPV23 04/02/2015 Td, adsorbed 07/25/2006 Tdap 04/23/2017 Social History Tobacco Use Types Packs/Day Years [...] on file Legal Sex Female 10:22 AM MANAGER STRATEGIC DEVELOPMENT Gender Identity Not on file Sexual Orientation Straight 08/07/2024 2: 11 PM MANAGER STRATEGIC DEVELOPMENT Last Filed Vital Signs Vital Sign Reading Time Taken Comments Blood Pressure 108/60 02/18/2025 3:11 PM CDT Pulse 68 02/18/2025 3:11 PM CDT Temperature - - Respiratory Rate 18 02/18/2025 3:11 PM CDT Oxygen Saturation - - Inhaled Oxygen Concentration - - Weight 107 kg (235 lb 12.8 oz) 02/18/2025 3:11 P M CDT Height 170.2 cm (5' 7) 02/18/2025 3:11 PM CDT Body Mass Index 36.93 02/18/2025 3:11 PM CDT Plan of Treatment Not on file Procedures Procedure Name Priority Date/Time Associated Diagnosis Comments EGFR Routine 02/18/2025 4:02 PM CDT Type 2 diabetes mellitus with hyperglycemia, with long-term current use of insulin (HCC) ALBUMIN CREATININE RATIO, URINE Routine 02/18/2025 4:02 PM CDT Type 2 diabetes mellitus with hyperglycemia, with long-term current use of insulin (HCC) COMPREHENSIVE METABOLIC PANEL Routine 02/18/2025 4:02 PM CDT Type 2 diabetes mellitus with hyperglycemia, with long-term current use of insulin (HCC) LIPID PANEL Routine 02/18/2025 4:02 PM CDT Type 2 diabetes mellitus with hyperglycemia, with long-term current use of insulin (HCC) POCT GLUCOSE Routine 02/18/2025 3:13 PM CDT Type 2 diabetes mellitus with hyperglycemia, with long-term current use of insulin (HCC) POCT HEMOGLOBIN A1C Routine 02/18/2025 3 :13 PM CDT Type 2 diabetes mellitus with hyperglycemia, with long-term current use of insulin ([facility]) DIABETES EYE EXAM Routine 10/11/2023 9:29 AM MANAGER STRATEGIC DEVELOPMENT from Last 3 Months or Most Recently Relevant to Health Maintenance Results * (ABNORMAL) eGFR (02/18/2025 4:02 PM CDT) eGFR 54(L) >=60 mL/min/1. 73 m2 Comment: Interpretive Data [...] of Race in Diagnosing Kidney Disease, JASN 202). The CKD-EPI equation should not be used for patients with unstable renal function and has not been validated in children and those over 70. Current interpretive data was last reviewed 2021. Blood 02/18/2025 4:02 PM CDT 02/18/2025 9:28 PM CDT us Anthony Castillo MD LAB BLOOD ORDERABLES Final Resul t [facility] [id number] Department [place] [address] * (ABNORMAL) Albumin Creatinine Ratio, Urine (02/18/2025 4:02 PM CDT) Albumin Ur 21.3 mg/L Comment: Interpretive Data No reference range established. Current interpretive data was last revised 2019. Creatinine Ur 32.8 mg/dL [facility] Comment: Interpretive Data No reference range established. Current interpretive data was last revised 2019. Albumin Creatinine Ratio, Ur 65(H) 1 - 29 mg/g [facility] Urine 02/18/2025 4:02 PM CDT 02/18/2025 7:38 PM CDT us Anthony Castillo MD LAB URINE ORDERABLES Final Resul t [facility] [id number] Department [place] [address] * (ABNORMAL) Lipid panel (02/18/2025 4:02 PM CDT) Cholesterol 158 30 - 199 mg/dL Comment: Interpretive Data Ages < or = [...] Data was last revised on 2018. Triglycerides 267(H) <=149 mg/dL [facility] Comment: Interpretive Data Ages [...] Data was last revised on 2018. HDL 63 >=40 mg/dL [facility] Comment: Interpretive Data [...] was last revised on 2018. LDL, calculated 54 <=129 mg/dL [facility] Comment: Interpretive Data Ages < or = 19 years Acceptable: <110 mg/dL Borderline high: 110-129 mg/dL High: >or= 130 mg/dL Ages > or = 20 years Optimal: <100 mg/dL Near optimal: 100-129 mg/dL Borderline high: 130-159 mg/dL High: >160 mg/dL Calculated using the Mikel LDL-C estimating equation. This equation was implemented on 2024. Prior to this date LDL-C was estimated using the Friedewald equation. Literature References: 1. Expert Panel on Integrated Guidelines for Cardiovascular Health and Risk Reduction in Children and Adolescents. Pediatrics 2011;128:S213 2. NCEP Expert Panel. Circulation 2004;110:227 3. Mikel M et al. JIM Cardiol. 2020 December 19;5(5):540-548. doi: 10.1001/jamacardio.2020.0013 Current Interpretive Data was last revised on 2024. Non-HDL Cholesterol 95 mg/dL [facility] Comment: Interpretive Data Ages < [...] on 2018. Chol/HDL ratio 3 [facility] Blood 02/18/2025 4:02 PM CDT 02/18/2025 7:38 PM CDT Anthony Castillo MD LAB [place]LOOD [place] [id number] [address] Department [place] [address] * (ABNORMAL) Comprehensive metabolic panel (02/18/2025 4:02 PM CDT) Sodium 140 135 - 145 mmol/L Potassium, pl 3.9 3.3 - 4.9 mmol/L [facility] Chloride 102 97 - 110 mmol/L [facility] CO2 26 22 - 32 mmol/L [facility] Anion gap 12 2 - 15 mmol/L [facility] BUN 34(H) 6 - 25 mg/dL [facility] Creatinine 1.17(H) 0.60 - 1.10 mg/dL [facility] Glucose 118 70 - 199 mg/dL [facility] Comment: [...] interpretive data was last revised 2022. Calcium 9.8 8.5 - 10.3 mg/dL [facility] Bilirubin, total 0.3 0.1 - 1.2 mg/dL [facility] Protein, pl 6.7 6.5 - 8.5 g/dL [facility] Albumin 4.1 3.5 - 5.0 g/dL [facility] Alk phos 93 40 - 130 Units/L [facility] ALT 22 7 - 45 Units/L [facility] AST 23 10 - 45 Units/L [facility] Blood 02/18/2025 4:02 PM CDT 02/18/2025 7:38 PM CDT Anthony Castillo MD LAB BLOOD ORDERABLES Final Resul t [facility] [address] Department [place] [address] * (ABNORMAL) POCT hemoglobin A1c (02/18/2025 3:13 PM CDT) Hemoglobin A1C, POC 6.6(A) 4.0 - 5.6 % Comment:None Capillary blood 02/18/2025 3 :13 PM CDT Anthony Castillo MD POINT OF CARE TEST ORDERABLES Fi nal Result * POCT glucose (02/18/2025 3:13 PM CDT) Glucose Blood, POC 130 Normal Fasting 70 - 100, Random <200 mg/dL Comment:None Blood 02/18/2025 3:13 PM CDT Anthony Castillo MD POINT OF CARE TEST ORDERABLES Fi nal Result * (ABNORMAL) DIABETES EYE EXAM (10/11/2023 9:29 AM MANAGER STRATEGIC DEVELOPMENT) Result [facility] Isis Salgado MD HEALTH MAINTENANCE Final Result from Last 3 Months or Most Recently Relevant to Health Maintenance Insurance [facility] Address: [facility] [address] [place] [address] [facility] MEDICARE ADVANTAGE [facility] Address: [address] [address] Care Teams Hospital Coder Relationship Specialty Start Date End Date Willian Mendoza MD PCP - General 02/18/16
--- OUTSIDE RECORDS SUMMARY | 2025-03-03 07:01 | XMS_ITS | Encounter Summary ---
Author Organization [facility] Address [facility] [place] [address] Care Team Providers Care Investment Underwriter Name Role Phone Alexis Thurman MD Unavailable [phone] Willian Mendoza MD Primary Care Provider [phone] Cee Liu APRN, GLUED WOOD TESTER-C Unavailable Virgilio Meehan DO Primary Care Provider [phone] Mame Osborn MD Unavailable [phone] Encounter Details Date Type Department Care Team (Late st Contact Info) Description 07/04/2022 Abstract [facility] [address] [place] [address] Alexis Thurman MD [address] [place] [id number] Social History Tobacco Use Types Packs/Day Years [...] Coronavirus/COVID-19? No / Unsure 06/29/2022 5:44 AM BILLING SERVICES MANAGER documented as of this encounter Plan of Treatment Upcoming Encounters Date Type Department Care Team (Late st Contact Info) Description 05/12/2025 1:30 PM CDT Office Visit [facility] [address] [place] [address] Cee Liu APRN, GLUED WOOD TESTER-C [address] [facility] [address] [place] [address] documented as of this encounter [...] on filedocumented in this encounter Care Teams Investment Underwriter Relationship Specialty Start Date End Date Willian Mendoza MD [address] [place] [address] PCP - General INTERNAL MEDICINE 09/14/18 09/07/22 Virgilio Meehan DO [address] [place] [address] PCP - General FAMILY PRACTICE 09/08/22 Alexis Thurman MD [address] [place] [address] [facility] [employer] CARDIOVASCULAR DISEASE 09/14/18 04/01/24 Cee Liu APRN, GLUED WOOD TESTER-C [address] [facility] [address] [place] [address] NURSE PRACTITIONER 05/27/22 Mame Osborn MD [address] [place] [address] INTERVENTIONAL CARDIOLOGY 05/10/24 documented as of this encounter
--- OUTSIDE RECORDS SUMMARY | 2025-03-03 07:01 | XMS_ITS | Patient Health Record ---
Author Organization [facility] Address [address] [place], [place] [address] Care Team Providers Care Supportive Employment Case Manager Name Role Phone MIRIAN MOSHER Unavailable [phone] Virgilio Meehan Unavailable Unavailable DIANE ADRIEN Unavailable [phone] WILFREDO BRODERICK Unavailable [phone] Allergies No Known Allergies Reason For Referral No Information Medications Medication SIG (Take, Route, Frequency, Duration) Notes Start Date End Date Status cholecalciferol 0.025 MG Oral Capsule ORAL cholecalciferol 0.025 MG Ora l CapsuleOriginal Medicationcholecalciferol 0.025 MG Oral Capsule *Reorder from [employer] for eRx and Interaction Alerts* 04/07/20 14 Active 3 ML insulin glargine 100 UNT/ML Pen Injector [Lantus] 3 ML insulin glargine 100 UNT/ML Pen Injector [Lantus]Original Medication3 ML insulin glargine 100 UNT/ML Pen Injector [Lantus] *Reorder from [employer] for eRx and Interaction Alerts* 04/07/20 14 Active cinnamon bark 500 MG Oral Capsule ORAL cinnamon bark 500 MG Oral CapsuleOriginal Medicationcinnamon bark 500 MG Oral Capsule *Reorder from [employer] for eRx and Interaction Alerts* 04/07/20 14 Active ciclopirox 80 MG/ML Topical Solution CUTANEOUS ciclopirox 80 MG/ML Topical SolutionOriginal Medicationciclopirox 80 MG/ML Topical Solution *Reorder from [employer] for eRx and Interaction Alerts* 04/20/20 12 Active Nabumetone 500 MG Oral Tablet ORAL nabumetone 500 MG Oral TabletOriginal Medicationnabumetone 500 MG Oral Tablet *Reorder from [facility] for eRx and Interaction Alerts* 06/29/20 12 Active verapamil hydrochloride 40 MG Oral Tablet ORAL verapamil hydrochloride 40 M G Oral TabletOriginal Medicationverapamil hydrochloride 40 MG Oral Tablet *Reorder from [facility] for eRx and Interaction Alerts* 04/07/20 14 Active propranolol hydrochloride 40 MG Oral Tablet ORAL propranolol hydrochloride 40 MG Oral TabletOriginal Medicationpropranolol hydrochloride 40 MG Oral Tablet *Reorder from [facility] for eRx and Interaction Alerts* 04/07/20 14 Active Losartan Potassium 100 MG Oral Tablet ORAL losartan potassium 100 MG Oral TabletOriginal Medicationlosartan potassium 100 MG Oral Tablet *Reorder from [facility] for eRx and Interaction Alerts* 04/07/20 14 Active Pravastatin Sodium 10 MG Oral Tablet ORAL pravastatin sodium 10 MG Ora l TabletOriginal Medicationpravastatin sodium 10 MG Oral Tablet *Reorder from [facility] for eRx and Interaction Alerts* 04/07/20 14 Active levothyroxine sodium 0.1 MG Oral Capsule ORAL levothyroxine sodium 0.1 MG Oral CapsuleOriginal Medicationlevothyroxine sodium 0.1 MG Oral Capsule *Reorder from [facility] for eRx and Interaction Alerts* 04/07/20 14 Active esomeprazole 20 MG Injection INTRAVENOUS esomeprazole 20 MG InjectionOriginal Medicationesomeprazole 20 MG Injection *Reorder from [facility] for eRx and Interaction Alerts* 04/07/20 14 Active Spironolactone 25 MG Oral Tablet ORAL spironolactone 25 MG Oral TabletOriginal Medicationspironolactone 25 MG Oral Tablet *Reorder from [facility] for eRx and Interaction Alerts* 04/07/20 14 Active Allopurinol 300 MG Oral Tablet ORAL allopurinol 300 MG Oral TabletOriginal Medicationallopurinol 300 MG Oral Tablet *Reorder from [facility] for eRx and Interaction Alerts* 04/07/20 14 Active nortriptyline 50 MG Oral Capsule ORAL nortriptyline 50 MG Oral CapsuleOriginal Medicationnortriptyline 50 MG Oral Capsule *Reorder from [facility] for eRx and Interaction Alerts* 04/07/20 14 Active Immunizations Vaccine Route Administration Date Status Comme nts Influenza, unspecified formulation Unknown 06/30/2023 A dministered Encounters Encounter Location Date Provider Diagnosis [facility] [address] [place], [place] [id number] 01/02/2025 WILFREDO BRODERICK Tinea unguium B35.1 ; Acquired 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 ; Atherosclerosis of [place] arteries of extremities with intermittent claudication, bilateral legs I70.213 ; Pain in right foot M79.671 and Pain in left foot M79.672 [facility] [address] [place], [place] [id number] 04/11/2024 ADRIEN CONTRERAS Unspecified atherosclerosis of [place] arteries of extremities, bilateral legs I70.203 ; Tinea unguium B35.1 ; Pain in left toe(s) M79.675 ; Other hammer toe(s) (acquired), right foot M20.41 ; Other hammer toe(s) (acquired), left foot M20.42 ; Pain in right toe(s) M79.674 and Acquired 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 [id number] 10/10/2024 MIRIAN MOSHER Tinea unguium B35.1 ; Acquired 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 ; Atherosclerosis of [place] arteries of extremities with intermittent claudication, bilateral legs I70.213 ; Pain in right foot M79.671 and Pain in left foot M79.672 [facility] [address] [email or web address] [address] [place], [place] [id number] 12/09/2024 MIRIAN MOSHER [facility] [address] [facility] [[email or web address] [address] [place], [place] [id number] 01/29/2025 MIRIAN MOSHER Assessments Encounter Date Diagnosis (ICD Code) Assessment Notes Treatment Notes Treatment Clinical Notes Section Notes 04/11/2024 Tinea unguium (ICD-10 - B35.1) Aseptic [...] and prescription treatments. 04/11/2024 Unspecified atherosclerosis of [place] arteries of extremities, bilateral legs (ICD-10 - [...] utilizing a #15 blade 01/02/2025 Atherosclerosis of [place] arteries of extremities with intermittent claudication, bilateral legs (ICD-10 - I70.213) Check and protect LE bilateral daily. Call if any changes or concerns. 10/10/2024 Atherosclerosis of [place] arteries of extremities with intermittent claudication, bilateral legs (ICD-10 - I70.213) 04/11/2024 Pain in left toe(s) (ICD-10 - [...] Details Provider Name:WILFREDO MARTIN, 03/06/2025 01:30:00 PM, [address] [place] [address], [id number], Insurance Providers Payer Name Payer Address Payer Phone Subscriber Number Group Number Insured Name Patient Relationship to Insured Coverage Start Date Coverage End Date [facility] [address] [address] [place] [id number] MATEUSZ MONROE Self - patient is the insured
--- OUTSIDE RECORDS SUMMARY | 2025-03-03 07:01 | XMS_ITS | Encounter Summary ---
Author Organization [facility] Address [facility] [place] [address] Care Team Providers Care Foreign Languages Department Chair Name Role Phone Alexis Thurman MD Unavailable [phone] Willian Mendoza MD Primary Care Provider [phone] Cee Liu APRN, DRAWING CHECKER-C Unavailable Virgilio Meehan DO Primary Care Provider [phone] Mame Osborn MD Unavailable [phone] Encounter Details Date Type Department Care Team (Late st Contact Info) Description 04/07/2021 Abstract [facility] [address] [place] [address] [place] [address] [place] [id number] Social History Tobacco Use Types Packs/Day Years [...] 05/12/2025 1:30 PM CDT Office Visit [facility] [address] [place] [phone] Cee Liu APRN, DRAWING CHECKER-C [address] [phone] documented as of this encounter Visit Diagnoses Not on filedocumented in this encounter Care Teams Foreign Languages Department Chair Relationship Specialty Start Date End Date Willian Mendoza MD [address] [place] [address] PCP - General INTERNAL MEDICINE 09/14/18 09/07/22 Virgilio Meehan DO [address] [place] [address] PCP - General FAMILY PRACTICE 09/08/22 Alexis Thurman MD [address] [place] [phone] [place] [employer] CARDIOVASCULAR DISEASE 09/14/18 04/01/24 Cee Liu APRN, DRAWING CHECKER-C [address] [phone] NURSE PRACTITIONER 05/27/22 Mame Osborn MD [address] [place] [address] INTERVENTIONAL CARDIOLOGY 05/10/24 documented as of this encounter
--- OUTSIDE RECORDS SUMMARY | 2025-03-03 07:01 | XMS_ITS | Encounter Summary ---
Author Organization [facility] Address [facility] [place] [address] Care Team Providers Care Manager Of Data Name Role Phone Alexis Thurman MD Unavailable [phone] Willian Mendoza MD Primary Care Provider [phone] Cee Liu APRN, PROVIDER NETWORK MGR-C Unavailable Virgilio Meehan DO Primary Care Provider [phone] Mame Osborn MD Unavailable [phone] Encounter Details Date Type Department Care Team (Late st Contact Info) Description 06/24/2022 Hospital Orders Only [employer] R[employer] Clerk Pre/Post [address] [place] [address] Alexis Thurman MD [address] [place] [address] Social History Tobacco Use Types [...] Description 05/12/2025 1:30 PM CDT Office Visit [facility] el [address] [place] [phone] Cee Liu APRN, PROVIDER NETWORK MGR-C [address] [facility] [address] [phone] documented as of this encounter Visit Diagnoses Not on filedocumented in this encounter Care Teams Manager Of Data Relationship Specialty Start Date End Date Willian Mendoza MD [address] [place] [address] PCP - General INTERNAL MEDICINE 09/14/18 09/07/22 Virgilio Meehan DO [address] [place] [address] PCP - General FAMILY PRACTICE 09/08/22 Alexis Thurman MD [address] [place] [phone] [place] [employer] Manager CARDIOVASCULAR DISEASE 09/14/18 04/01/24 Cee Liu APRN, PROVIDER NETWORK MGR-C [address] [phone] NURSE PRACTITIONER 05/27/22 Mame Osborn MD [address] [place], [place] [phone] INTERVENTIONAL CARDIOLOGY 05/10/24 documented as of this encounter
--- OUTSIDE RECORDS SUMMARY | 2025-03-03 07:01 | XMS_ITS ---
Author Organization [facility] Address [address] [place], [place] [address] Care Team Providers Care Software Reverse Engineer Name Role Phone MIRIAN MOSHER Unavailable [phone] iVrgilio Meehan Unavailable Unavailable WILFREDO BRODERICK Unavailable [phone] REASON FOR VISIT *General care Medications Medication SIG (Take, Route, Frequency, Duration) Notes Start Date End Date Status cholecalciferol 0.025 MG Oral Capsule ORAL cholecalciferol 0.025 MG Ora l CapsuleOriginal Medicationcholecalciferol 0.025 MG Oral Capsule *Reorder from [employer] for eRx and Interaction Alerts* 04/07/20 14 Active 3 ML insulin glargine 100 UNT/ML Pen Injector [Lantus] 3 ML insulin glargine 100 UNT/ML Pen Injector [Lantus]Original Medication3 ML insulin glargine 100 UNT/ML Pen Injector [Lantus] *Reorder from [employer] for eRx and Interaction Alerts* 04/07/20 14 Active Nabumetone 500 MG Oral Tablet ORAL nabumetone 500 MG Oral TabletOriginal Medicationnabumetone 500 MG Oral Tablet *Reorder from [employer] for eRx and Interaction Alerts* 06/29/20 12 Active Losartan Potassium 100 MG Oral Tablet ORAL losartan potassium 100 MG Oral TabletOriginal Medicationlosartan potassium 100 MG Oral Tablet *Reorder from [employer] for eRx and Interaction Alerts* 04/07/20 14 Active Pravastatin Sodium 10 MG Oral Tablet ORAL pravastatin sodium 10 MG Ora l TabletOriginal Medicationpravastatin sodium 10 MG Oral Tablet *Reorder from [employer] for eRx and Interaction Alerts* 04/07/20 14 Active Spironolactone 25 MG Oral Tablet ORAL spironolactone 25 MG Oral TabletOriginal Medicationspironolactone 25 MG Oral Tablet *Reorder from [employer] for eRx and Interaction Alerts* 04/07/20 14 Active Allopurinol 300 MG Oral Tablet ORAL allopurinol 300 MG Oral TabletOriginal Medicationallopurinol 300 MG Oral Tablet *Reorder from [employer] for eRx and Interaction Alerts* 04/07/20 14 Active nortriptyline 50 MG Oral Capsule ORAL nortriptyline 50 MG Oral CapsuleOriginal Medicationnortriptyline 50 MG Oral Capsule *Reorder from [employer] for eRx and Interaction Alerts* 04/07/20 14 Active verapamil hydrochloride 40 MG Oral Tablet ORAL verapamil hydrochloride 40 M G Oral TabletOriginal Medicationverapamil hydrochloride 40 MG Oral Tablet *Reorder from [employer] for eRx and Interaction Alerts* 04/07/20 14 Active propranolol hydrochloride 40 MG Oral Tablet ORAL propranolol hydrochloride 40 MG Oral TabletOriginal Medicationpropranolol hydrochloride 40 MG Oral Tablet *Reorder from [employer] for eRx and Interaction Alerts* 04/07/20 14 Active levothyroxine sodium 0.1 MG Oral Capsule ORAL levothyroxine sodium 0.1 MG Oral CapsuleOriginal Medicationlevothyroxine sodium 0.1 MG Oral Capsule *Reorder from [employer] for eRx and Interaction Alerts* 04/07/20 14 Active esomeprazole 20 MG Injection INTRAVENOUS esomeprazole 20 MG InjectionOriginal Medicationesomeprazole 20 MG Injection *Reorder from [employer] for eRx and Interaction Alerts* 04/07/20 14 Active cinnamon bark 500 MG Oral Capsule ORAL cinnamon bark 500 MG Oral CapsuleOriginal Medicationcinnamon bark 500 MG Oral Capsule *Reorder from [employer] for eRx and Interaction Alerts* 04/07/20 14 Active ciclopirox 80 MG/ML Topical Solution CUTANEOUS ciclopirox 80 MG/ML Topical SolutionOriginal Medicationciclopirox 80 MG/ML Topical Solution *Reorder from [employer] for eRx and Interaction Alerts* 04/20/20 12 Active Encounters Encounter Location Date Provider Diagnosis [address] [id number] 01/02/2025 WILFREDO BRODERICK Tinea unguium B35.1 ; [...] utilizing a #15 blade 01/02/2025 Atherosclerosis of [place] arteries of extremities with [...] pared utilizing a #15 blade Atherosclerosis of [place] ar teries of extremities with intermittent claudication, [...] Details Provider Name:WILFREDO MARTIN, 03/06/2025 01:30:00 PM, [address] [place] [address], [id number], Progress Notes * MATEUSZ MONROE ADOB:[birth year] (59 yo F)Acc No.[id number]:01/02/2025 Patient: S MATEUSZ SNIDER A Provider: Gavi BRODERICK :1965 A ge:59 Y S ex:Female Date:01/02/2025 Address:[address] [place], [place] [id number] Subjective: * Chief Complaints: * 1 . *General care. * HPI: H PI: General care P atient presents to the office for diabetic foot care. Patient states that their nails are thickened, elongated and painful. Patient states that it is aggravated by shoe gear. Onset is gradual., Patient denies taking blood thinners., Date last seen by Dr. Meehan was 12/2024., Initials [facility]. * ROS: G eneral / Constitutional: [...] Medicationallopurinol 300 MG Oral Tablet *Reorder from [facility] for eRx and Interaction Alerts*, Taking Spironolactone 25 MG Oral Tablet ORAL , Notes to Pharmacist: spironolactone 25 MG Oral TabletOriginal Medicationspironolactone 25 MG Oral Tablet *Reorder from [facility] for eRx and Interaction Alerts*, Taking Nabumetone 500 MG Oral Tablet ORAL , Notes to Pharmacist: nabumetone 500 MG Oral TabletOriginal Medicationnabumetone 500 MG Oral Tablet *Reorder from [facility] for eRx and Interaction Alerts*, Taking Pravastatin Sodium 10 MG Oral Tablet ORAL , Notes to Pharmacist: pravastatin sodium 10 MG Oral TabletOriginal Medicationpravastatin sodium 10 MG Oral Tablet *Reorder from [facility] for eRx and Interaction Alerts*, Taking Losartan Potassium 100 MG Oral Tablet ORAL , Notes to Pharmacist: losartan potassium 100 MG Oral TabletOriginal Medicationlosartan potassium 100 MG Oral Tablet *Reorder from [facility] for eRx and Interaction Alerts*, Taking 3 ML insulin glargine 100 UNT/ML Pen Injector [Lantus] , Notes to Pharmacist: 3 ML insulin glargine 100 UNT/ML Pen Injector [Lantus]Original Medication3 ML insulin glargine 100 UNT/ML Pen Injector [Lantus] *Reorder from [facility] for eRx and Interaction Alerts*, Taking cholecalciferol 0.025 MG Oral Capsule ORAL , Notes to Pharmacist: cholecalciferol 0.025 MG Oral CapsuleOriginal Medicationcholecalciferol 0.025 MG Oral Capsule *Reorder from [facility] for eRx and Interaction Alerts*, Taking ciclopirox 80 MG/ML Topical Solution CUTANEOUS , Notes to Pharmacist: ciclopirox 80 MG/ML Topical SolutionOriginal Medicationciclopirox 80 MG/ML Topical Solution *Reorder from [facility] for eRx and Interaction Alerts*, Taking cinnamon bark 500 MG Oral Capsule ORAL , Notes to Pharmacist: cinnamon bark 500 MG Oral CapsuleOriginal Medicationcinnamon bark 500 MG Oral Capsule *Reorder from [facility] for eRx and Interaction Alerts*, Taking esomeprazole 20 MG Injection INTRAVENOUS , Notes to Pharmacist: esomeprazole 20 MG InjectionOriginal Medicationesomeprazole 20 MG Injection *Reorder from [facility] for eRx and Interaction Alerts*, Taking levothyroxine sodium 0.1 MG Oral Capsule ORAL , Notes to Pharmacist: levothyroxine sodium 0.1 MG Oral CapsuleOriginal Medicationlevothyroxine sodium 0.1 MG Oral Capsule *Reorder from [facility] for eRx and Interaction Alerts*, Taking nortriptyline 50 MG Oral Capsule ORAL , Notes to Pharmacist: nortriptyline 50 MG Oral CapsuleOriginal Medicationnortriptyline 50 MG Oral Capsule *Reorder from [facility] for eRx and Interaction Alerts*, Taking propranolol hydrochloride 40 MG Oral Tablet ORAL , Notes to Pharmacist: propranolol hydrochloride 40 MG Oral TabletOriginal Medicationpropranolol hydrochloride 40 MG Oral Tablet *Reorder from [facility] for eRx and Interaction Alerts*, Taking verapamil hydrochloride 40 MG Oral Tablet ORAL , Notes to Pharmacist: verapamil hydrochloride 40 MG Oral TabletOriginal Medicationverapamil hydrochloride 40 MG Oral Tablet *Reorder from [facility] for eRx and Interaction Alerts*, Medication List [...] - L85.1 3 . A therosclerosis of [place] arteries of extremities with intermittent [...] a #15 blade 3. A therosclerosis of [place] arteries of extremities with intermittent [...] reaction * Billing Information: * Visit Code: 61044 Office Visit, Est Pt., Level 3. * Procedure Codes: * Electronic signature of KINA BRODERICK DPM on 03/03/2025 at 07:01 AM CDT Sign off status: Pending * Provider: Gavi BRODERICK Date: 0 01/02/2025 Generated for Curt Reilly/Jose on: 0 03/03/2025 07:01 AM CDT History and Physical Notes * [...]
--- OUTSIDE RECORDS SUMMARY | 2025-03-03 07:01 | XMS_ITS | Encounter Summary ---
Author Organization [facility] Address [facility] [place] [address] Care Team Providers Care Network Strategist Name Role Phone Alexis Thurman MD Unavailable [phone] Cee Liu APRN, NP-C Unavailable Virgilio Meehan DO Primary Care Provider Mame Osborn MD Unavailable [phone] Encounter Details Date Type Department Care Team (Late Contact Info) Description 09/23/2022 [facility] [address] [place] [phone] Alexis Thurman MD [address] [place] [address] Social History Tobacco Use Types [...] Coronavirus/COVID-19? No / Unsure 09/08/2022 8:48 AM PARKING TECHNICIAN documented as of this encounter Plan of Treatment Upcoming Encounters Date Type Department Care Team (Late Contact Info) Description 05/12/2025 1:30 PM CDT Office Visit [facility] el [address] [place] [address] Cee Liu APRN, PROGRAM EVALUATION CONSULTANT-C [address] [facility] [address] [place] [phone] documented as of this encounter Visit Diagnoses Not on filedocumented in this encounter Care Teams Network Strategist Relationship Specialty Start Date End Date Virgilio Meehan DO [address] [place] [address] PCP - General FAMILY PRACTICE 09/08/22 Alexis Thurman MD [address] [place] [phone] [employer] Worker CARDIOVASCULAR DISEASE 09/14/18 04/01/24 Cee Liu APRN, PROGRAM EVALUATION CONSULTANT-C [address] [facility] [address] [phone] NURSE PRACTITIONER 05/27/22 Mame Osborn MD [address] [place] [address] INTERVENTIONAL CARDIOLOGY 05/10/24 documented as of this encounter
--- OUTSIDE RECORDS SUMMARY | 2025-03-03 07:01 | XMS_ITS | Encounter Summary ---
Author Organization [facility] Address [facility] [place] [address] Care Team Providers Care Geographic Analyst Name Role Phone Alexis Thurman MD Unavailable [phone] Cee Liu APRN, NP-C Unavailable [phone] Virgilio Meehan DO Primary Care Provider [phone] Mame Osborn MD Unavailable [phone] Encounter Details Date Type Department Care Team (Late Contact Info) Description 12/21/2022 Abstract [facility] [address] [place] [address] Naheed Arzola MD [address] [place] [address] Social History Tobacco Use Types Packs/Day Years [...] 05/12/2025 1:30 PM CDT Office Visit [facility]d [address] [place] [address] Cee Liu APRN, COMMUNICATIONS ANALYST-C [address] [phone] documented as of this encounter Visit Diagnoses Not on filedocumented in this encounter Care Teams Geographic Analyst Relationship Specialty Start Date End Date Virgilio Meehan DO [address] [place] [address] PCP - General FAMILY PRACTICE 09/08/22 Alexis Thurman MD [address] [place] [address] [place] [employer] Machine Feeder CARDIOVASCULAR DISEASE 09/14/18 04/01/24 Cee Liu APRN, COMMUNICATIONS ANALYST-C [address] [phone] NURSE PRACTITIONER 05/27/22 Mame Osborn MD [address] [place] [address] INTERVENTIONAL CARDIOLOGY 05/10/24 documented as of this encounter
--- OUTSIDE RECORDS SUMMARY | 2025-03-03 07:01 | XMS_ITS | Encounter Summary ---
Author Organization [facility] Address [address] [place] [address] Care Team Providers Care Front End Drupal Developer Name Role Phone Willian Mendoza MD Primary Care Provider Encounter Details Date Type Department Care Team (Latest Contact Info) Description 02/27/2025 Results Follow-Up [facility] [address] [place] [phone] [place] Castillo [place] [id number] [place] [address] [address], [place] [id number] Comprehensive metabolic panel Social History Tobacco Use Types Packs/Day Years Used Date Smoking Tobacco: Never Smokeless Tobacco: Never Alcohol Use Standard Drinks/Week Comments Yes 0 [...] on file Legal Sex Female 10:22 AM DIRECTOR RECREATION Gender Identity Not on file Sexual Orientation Straight 08/07/2024 2: 11 PM DIRECTOR RECREATION documented as of this encounter Plan of Treatment Not on file documented as of this encounter Visit Diagnoses Not on filedocumented in this encounter Care Teams Front End Drupal Developer Relationship Specialty Start Date End Date Willian Mendoza MD PCP - General 02/18/16 documented as of this encounter
--- OUTSIDE RECORDS SUMMARY | 2025-03-03 07:01 | XMS_ITS | Encounter Summary ---
Author Organization [facility] Address [facility] [place] [address] Care Team Providers Care Builder'S Labourer Name Role Phone Cee Liu APRN, SPACE AND MISSILE DEFENSE OPERATIONS-C Unavailable Virgilio Meehan DO Primary Care Provider [phone] Mame Osborn MD Unavailable [phone] Encounter Details Date Type Department Care Team (Late Contact Info) Description 11/12/2024 Abstract [facility] [address] [place] [address] Ella Witt MD [address] [place] [address] Social History Tobacco Use Types Packs/Day Years [...] Description 05/12/2025 1:30 PM CDT Office Visit [facility] eld [address] [place] [address] Cee Liu APRN, SPACE AND MISSILE DEFENSE OPERATIONS-C [address] [facility] [address] [place] [address] documented as of this encounter Visit Diagnoses Not on filedocumented in this encounter Care Teams Builder'S Labourer Relationship Specialty Start Date End Date Virgilio Meehan DO [address] [place] [address] PCP - General FAMILY PRACTICE 09/08/22 Cee Liu, SHADOW GRAPH WEIGHT OPERATOR, SPACE AND MISSILE DEFENSE OPERATIONS-C [address] [facility] [address] [place] [address] NURSE PRACTITIONER 05/27/22 Mame Osborn MD [address] [place] [address] INTERVENTIONAL CARDIOLOGY 05/10/24 documented as of this encounter
--- OUTSIDE RECORDS SUMMARY | 2025-03-03 07:01 | XMS_ITS | Continuity of Care Document ---
Author Organization [facility] Address [address] [facility] [address] [place] [address] Phone Care Team Providers Care Director Validation Name Role Phone Nilson Vaughan Unavailable Unavailable [...] Providers Copied on Encounter [facility], [address], [place], [place], [address], [place] tel:[phone] [facility] No Information Clement Devine. [address] [place], [address], [place]. tel:[phone] Referring Provider: Nilson Stewart, [address] [place], [address]. tel:[phone] [facility], [address], [place], [place], [address], [place] tel:[phone] [facility] No Information Clement Devine. [address] [place], [address], [place]. tel:[phone] Referring Provider: Nilson Stewart, [address] [place], [address]. tel:[phone] [facility], [address], [place], [place], [address], [place] tel:[phone] [facility] No Information Clement Devine. [address] [place], [address], [place]. tel:[phone] Referring Provider: Nilson Stewart, [address] [place], [address]. tel:[phone] [facility], [address], [place], [place], [address], [place] tel:[phone] [facility] No Information Clement Devine. [address] [place], [address], [place]. [phone] Referring Provider: Nilson Stewart, [address] [place], [address]. tel:[phone] [facility], [address], [place], [place], [address], [place] tel:[phone] [facility] No Information Clement Devine. [address] [place], [address], [place]. tel:[phone] [facility], [address], [place], [place], [address], [place] tel:[phone] [facility] No Information Clement Devine. [address] [place], [address], [place]. tel:[phone] Referring Provider: Nilson Stewart, [address] [place], [address]. tel:[phone] Office/outpat ient Visit, [facility], [address], [place], [place], [address], [place] tel:[phone] [facility] No Information Clement Devine. [address] [place], [address], [place]. tel:[phone] Family History Family Member Type Diagnosis Age At Onset No Information Payers Payer name Insurance type Covered republican ID Authorshiloha tiisaiah(s) Medicaid [facility] [id number] Social History Type Description Quantity Date Captured [...]
--- OUTSIDE RECORDS SUMMARY | 2025-03-03 07:01 | XMS_ITS | Data Portability ---
Author Organization [facility] Address [address] [place] [address] Care Team Providers Care Material Control Clerk Name Role Phone ELKE JACOBO Primary Care Provider [phone] Assessment Encounter Date Assessment Date Assessment LastModified [...] observ ation record ed. [facility]) [address] [place], [address], 04/10/2022 00:58:08 Result Notes None recorded. Problems Name Problem SNOMED Code Status Onset Date Resolution Date Notes Provider Name and Address Organization Details Recorded Time SNOMED CT Concept Completed 201503/22/2022 Encntr for general adult medical exam w/o abnormal findings; Recorded Elsewhere : No Locati on: [facility] So urce: EHR Chron ic: N Practic e ID: [id number] Bill able Time: 03:30:00 PM Cecilia Rangel [facility] 2 16:06:09 Menopaus e present [id number] Completed 201503/22/2022 Menopausa l and female climacter ic states;Re corded Elsewhere : No Locati on: [facility] So urce: EHR Chron ic: N Practic e ID: [id number] Bill able Time: 01:00:00 PM Cecilia Rangel [facility] 2 16:06:09 Screenin g for malignan t neoplasm of rectum Completed 201503/22/2022 Encounter for screening for malignant neoplasm of rectum;Re corded Elsewhere : No Locati on: [facility] So urce: EHR Chron ic: N Practic e ID: [id number] Bill able Time: 03:30:00 PM Cecilia Rangel [facility] 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 2 16:06:09 Screenin g for malignan t neoplasm of cervix Completed 201503/22/2022 Encounter for screening for malignant neoplasm of cervix;Re corded Elsewhere : No Locati on: [facility] So urce: EHR Chron ic: N Practic e ID: 0001 Bill able Time: 03:30:00 PM Cecilia Rangel [facility] 2 16:06:09 Congenit al malforma tion [id number] Completed 201503/22/2022 Congenita l anomaly;R ecorded Elsewhere : No Locati on: [facility] So urce: EHR Chron ic: N Practic e ID: [id number] Bill able Time: 03:30:00 PM [facility] 16:06:09 Problem Notes None recorded. Procedures Surgical History Date Name Laterality Status Provider Name and Address Organization Details Recorded Time 08/21/19 19 laparoscopic sleeve gastrectomy completed [facility] 03/23/2022 15:05:08 08/21/19 17 operation on mandible completed [facility] 03/23/2022 15:04:14 insertion of ureteral stent with ureterotomy completed [facility] 03/23/2022 15:03:53 Unlisted px femur/knee completed [facility] 03/23/2022 15:04:37 perinasal sinusotomy completed [facility] 03/23/2022 15:04:43 Carpal tunnel surgery completed [facility] 03/23/2022 15:04:53 Imaging Results None recorded. [...] every day in the evening 04/16 completed [facility] ed Elsewher e: No Locat ion: [facility] odify By: hiral Martin ncounter DateTime : 04/05/20 16 12:01:40 PM Not Available Not Available Not Available Neurontin 300 mg capsule take 1 capsule by oral route 3 times every day 04/28 completed Prescrib ed Elsewher e: No Locat ion: [facility] odify By: wendy Martin ncounter DateTime : 03/08/20 16 09:00:54 AM Not Available Not Available Not Available verapamil 40 mg tablet take 1 tablet by oral route 3 times every day 03/23 completed Prescrib ed Elsewher e: Yes Loca tion: Vik martin [facility] odify By: [email or web address] trick En counter [...] ed Elsewher e: Yes Loca tion: Vik [facility] odify By: kmkirkpa trick En counter DateTime : 01/27/20 16 01:00:00 PM Not Available Not Available Not Available propranol ol 60 mg tablet take 1 tablet by oral route 2 times every day 03/23 completed Prescrib ed Elsewher e: Yes Loca tion: Vik martin [facility] odify By: [email or web address] trick En counter [...] ed Elsewher e: Yes Loca tion: Vik [facility] odify By: [email or web address] trick En counter DateTime : 01/27/20 16 01:00:00 PM Not Available Not Available Not Available glimepiri de 1 mg tablet take 1 tablet by oral route every day 03/23 completed Prescrib ed Elsewher e: Yes Loca tion: [facility] odify By: wendy guevarauntean DateTime : 04/28/20 16 03:30:00 PM Not Available Not Available Not Available levothyro xine 100 mcg tablet active Not Available Not Available Not Available ropinirol e 0.25 mg tablet take 1 tablet by oral route every day q 4-6hrs prn 03/23 completed Prescrib ed Elsewher e: Yes Loca tion: Vik martin [facility] odify By: wendy Martin ncounter DateTime : 04/28/20 16 03:30:00 PM Not Available Not Available Not Available Humalog U-100 Insulin 100 unit/mL subcutane ous solution inject by subcutan eous route per prescrib er's instruct ions. Insulin dosing requires individu alizatio n. 03/23 completed Prescrib ed Elsewher e: Yes Loca tion: Vik martin [facility] odify By: ammauricio Martin ncounter DateTime : [...] Elsewher e: No Locat ion: Vik martin [facility] odify By: ammauricio Martin ncounter DateTime : 01/27/20 16 01:00:00 PM Not Available Not Available Not Available ranitidin e 300 mg capsule take 1 capsule by oral route every day at bedtime 03/23 completed Prescrib ed Elsewher e: Yes Loca tion: Vik martin [facility] odify By: [email or web address] trick En counter DateTime : 01/27/20 16 01:00:00 PM Not Available Not Available Not Available pravastat in 20 mg tablet take 2 tablet by oral route every day active Not Available Not Available No t Available Estrace 0.5 mg tablet take 1 tablet by oral route every day 06/01 completed Prescrib ed Elsewher e: No Locat ion: Vik martin [facility] odify By: ammauricio Martin ncounter DateTime : 03/31/20 16 04:45:00 PM Not Available Not Available Not Available cefdinir 300 mg capsule 03/23 completed Not Available Not Available Not Available losartan 100 mg tablet take 1 tablet by oral route every day 03/23 completed Prescrib ed Elsewher e: Yes Loca tion: Vik martin [facility] odify By: kmkirkpa trick En counter DateTime : 01/27/20 16 01:00:00 PM Not Available Not Available Not Available fluticaso ne propionat e 50 mcg/actua tion nasal spray,karen pension active Not Available Not Available Not Available nortripty line 50 mg capsule take 1 capsule by oral route 2 times every day 2015 active Prescrib ed Elsewher e: Yes Loca tion: Vik martin [facility] odify By: kmkirkpa trick En counter DateTime : 01/27/20 16 01:00:00 PM Not Available Not Available Not Available Estrace 1 mg tablet take 1 tablet by oral route every day 2015 active Prescrib ed Elsewher e: No Locat ion: Vik martin [facility] odify By: tgingminh h Becki ter DateTime : 04/28/20 16 03:30:00 PM Not Available Not Available Not Available progester one micronize d 100 mg capsule take 1 capsule by oral route every day for 10 days in the evening 05/07 completed Prescrib ed Elsewher e: Yes Loca tion: Vik martin [facility] odify By: ammauricio carbone DateTime : 04/28/20 16 03:30:00 PM Not Available Not Available Not Available amoxicill in 875 mg-potass ium clavulana te 125 mg tablet 03/23 completed Not Available Not Available Not Available iron 18 mg tablet 2015 active Prescrib ed Elsewher e: Yes Loca tion: Vik martin [facility] odify By: [email or web address] trick En counter DateTime : 01/27/20 16 01:00:00 PM Not Available Not Available Not Available magnesium 200 mg tablet 2015 active Prescrib ed Elsewher e: Yes Loca tion: Vik martin [facility] odify By: kmkirkpa trick En counter DateTime : 01/27/20 16 01:00:00 PM Not Available Not Available Not Available Vitamin D3 25 mcg (1,000 unit) tablet take 1 by Oral route once for 2 months then draw labs 2015 active Prescrib ed Elsewher e: Yes Loca tion: Vik martin [facility] odify By: kmkirkpa trick En counter DateTime : 01/27/20 16 01:00:00 PM Not Available Not Available Not Available nitrofura ntoin monohydra te/macroc rystals 100 mg capsule active Not Available Not Available Not Available duloxetin e 20 mg capsule,d elayed release active Not Available Not Available Not Available Cinnamon 500 mg capsule 2015 active Prescrib ed Elsewher e: Yes [facility]: kmkirkpa trick En counter DateTime : 01/27/20 16 01:00:00 PM Not Available Not Available Not Available Lantus Solostar U-100 Insulin 100 unit/mL (3 mL) subcutane ous pen active Not Available Not Available Not Available Tirosint 75 mcg capsule take 1 capsule by oral route every day 04/28 completed Prescrib ed Elsewher e: Yes Loca tion: Robe mario [facility] odify By: amkdavid Martin ncounter DateTime : 01/27/20 16 01:00:00 PM Not Available Not Available Not Available Bydureon 2 mg subcutane ous extended release suspensio n inject by subcutan eous route every 7 days once 03/23 completed Prescrib ed Elsewher e: Yes Loca tion: [facility] odify By: kmkirkpa trick En counter [...] Body mass index (BMI) Body weight Systolic And Diastolic Provider Name and Address Organization Details Last Updated DateTime 03/23/2022 168.91 cm 49.1 kg/m2 100192.04 g 136/80 mm[Hg] Cecilia Rangel [facility] 03/23/2022 14:58:40 Social History Question Answer Notes LastModified by Organizat ion Details LastModified Time Tobacco Smoking Status Never Smoker Cecilia Rangel [facility], [facility] 03/23/2022 15:03:27 Are You Blind [...] anxious, or unable to sleep at night)? [id number] Information not available 03/23/2022 Family History Relationship [...] SNOMED-CT Code Diagnosis ICD10 Code Diagnosis Note [id number] Kim Tovar [facility] [address] [address] 03/23/2022 14:11:49 03/24/2022 16:35:54 Gynecologic examination [id number] Z01.419 Take Calcium with Vitamin D 12-1500mg daily. Do monthly self breast exams. It is advised to get annual flu shot in the fall and she could obtain at [facility] or [facility] clinic. If you haven't received the Tdap [...] Labs UTD PCPMammo UTD PCP Inguinal pain [id number] R10.2 Left sided groin pain.Exam difficult due [...] Arias Member ID Guarantor Name 03/24/2022 2 [place] [facility] Keri Stone [id number] Keri Stone 03/24/2022 1 [facility] Keri Stone [id number] Keri Stone 03/24/2022 2 [place] Keri Stone [id number] Keri Stone 03/24/2022 1 [facility] (MEDICARE REPLACEMENT/A DVANTAGE - PPO) Keri Stone [id number] Keri Stone Notes Date Note Type Note Provider Name and Address Organization Details Recorded Time 03/23/2022 text/html 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 Kim Tovar, [facility] [address], [place], [address], [place] - [facility] 03/24/2022 16:16:15 OBGyn Episode No OBEpisode recorded.
--- OUTSIDE RECORDS SUMMARY | 2025-03-03 07:02 | XMS_ITS ---
Author Organization [facility] Address [address] [place], [place] [address] Care Team Providers Care Criminal Psychologist Name Role Phone MIRIAN MOSHER Unavailable [phone] Virgilio Meehan Unavailable Unavailable WILFREDO BRODERICK Unavailable [phone] REASON FOR VISIT *General care Encounters Encounter Location Date Provider Diagnosis [address] [id number] 12/12/2024 WILFREDO BRODERICK Plan Of Treatment Next Appt Details Provider Name:WILFREDO MARTIN, 03/06/2025 01:30:00 PM, [address] [place] [address], [phone], Progress Notes * MATEUSZ MONROE ADOB:[birth year] (59 yo F)Acc No.[id number]:12/12/2024 Patient: MATEUSZ ZHU Provider: Gavi BRODERICK :1965 A ge:59 Y S ex:Female Date:12/12/2024 Address:[address] [place], [place] [id number] Subjective: * Chief Complaints: * 1 . *General care. * Medical History: Objective: * Vitals: Assessment: Plan: * Treatment: * Billing Information: * Visit Code: * Procedure Codes: * Electronic signature of KINA BRODERICK DPM on 03/03/2025 at 07:02 AM CDT Sign off status: Pending * Provider: Gavi BRODERICK Date: 0 12/12/2024 Generated for Curt small/Ana Maria/Jose on: 0 03/03/2025 07:02 AM FARRAH
--- OUTSIDE RECORDS SUMMARY | 2025-03-03 07:02 | XMS_ITS | Clinical Summary ---
Author Organization [facility] Address [facility] [place] [address] Care Team Providers Care Office Coordinator Name Role Phone Cee Liu APRN AGRICULTURAL RESEARCH TECHNOLOGIST-C Unavailable [phone] Virgilio Meehan DO Primary Care Provider [phone] Mame Osborn MD Unavailable [phone] Allergies Active Allergy Reactions Criticality Noted Date Comments Amoxicillin-Pot Clavulanate Diarrhea 05/27/2022 Metformin Other (see comment) 05/27/2022 Renal function impairment Pantoprazole Other (see comment) 05/27/2022 Hypomagnesemia Medications CPAP DME DEVICE CPAPCPAP 28qyT30 via IV [id number] -[id number] -2018Lefty Morrissey 8 Active pravastatin (PRAVACHOL) 20 [...] mouth 2 (two) times daily. Active CREON 47851-743082 units capsule Take 2 capsules (72,000 units [...] check lipid panel Hypertension associated with diabetes ([facility] /[facility]) 09/19/2012 Overview (10/22/2018): Overview: Unspecified essential hypertension Last Assessment & Plan: Controlled on current medications. Type 2 diabetes mellitus ([facility]) 06/28 Overview (10/22/2018): Overview: DMII [...] 36.2 C (97.2 F) 06/29/2022 6:18 AM SEISMIC PROSPECTING OBSERVER Respiratory Rate 16 05/10/2024 12:4 0 PM CDT Oxygen Saturation 100% 11/02/2023 2:52 PM CDT Inhaled Oxygen Concentration - - Weight 104.9 kg (231 lb 3.2 oz) 025 10:46 AM CDT Height 170.2 cm (5' 7) 11/04/2024 10:4 6 AM CDT Body Mass Index 36.21 11/04/2024 10:46 AM CDT Plan of Treatment Upcoming Encounters Date Type Department Care Team ([facility] st Contact Info) Description 05/12/2025 1:30 PM CDT Office Visit [facility] eld [address] [place] [address] Cee Liu, ANGEL, AGRICULTURAL RESEARCH TECHNOLOGIST-C [address] [facility][1] [address] [place] [address] Health Maintenance Due Date Last Done Comments [...] this topic Medical Devices Implanted Type Area Direct Marketing Executive Device Identifier Shelf Expiration Date Model / Serial / Lot Stent Ureteral Ellenton Sci Contour 6fr X 26cm - [id number] Implanted:Qty : 1 on 06/28/2021 by Ryan Vinson MD at [facility] Stent Right: [employer] [id number] 04/12/2024 [id number] / / [id number] Procedures Procedure Name Priority Date/Time Associated Diagnosis Comments LIPID PANEL Routine 07/23/2009 12:00 AM SEISMIC PROSPECTING OBSERVER from Last 3 Months or Most Recently Relevant to Health Maintenance Results * LIPID PANEL (07/23/2009 12:00 AM SEISMIC PROSPECTING OBSERVER) TRIGLYCERIDES 132 0 - 150 mg/dl MEDINFORMATIX TO EPIC CONVERSION CHOLESTEROL 180 0 - 200 mg/dl MEDINFORMATIX TO EPIC CONVERSION HDL 61 40 - 59 mg/dl MEDINFORMATIX TO EPIC CONVERSION LDL CONVERSION 93 0 - 100 mg/dl MEDINFORMATIX TO EPIC CONVERSION CHOL/HDL RATIO 3.0 <4.0 (Calc) MEDINFORMATIX TO EPIC CONVERSION 07/23/2009 07/23/2009 Narrative MEDINFORMATIX TO EPIC CONVERSION - 07/23/2009 1:31 PM SEISMIC PROSPECTING OBSERVER Reviewed by ANGELA Jul 23 2009 1:33:00:000PM us Generic Conversion Md [facility] Final R esult MEDINFORMATIX TO EPIC CONVERSION from Last 3 Months or Most Recently Relevant to Health Maintenance Insurance MEDICAID Member Subscriber Plan / Payer (Ef fective 2018-Present) Name:Keri Stone Ann Relation to Subscriber:Self Name:Keri Stone Ann Payer ID:Not on file Group ID:Not on file Type:Not on file Address: [address] MEDICAID Member Subscriber Plan / Payer ( fective 2018-Present) Name:Keri Stone Ann Relation to Subscriber:Self Name:Keri Stone Ann Payer ID:Not on file Group ID:Not on file Type:Not on file Address: [address] MEDICAID Advance Directives * Full Code (Latest Code Status on File) Date Activated Date Inactivated Comments 06/29/2022 9:52 AM 06/29/2022 1:43 PM Care Teams Office Coordinator Relationship Specialty Start Date End Date Virgilio Meehan DO [address] [place] [address] PCP - General FAMILY PRACTICE 09/08/22 Cee Liu APRN, AGRICULTURAL RESEARCH TECHNOLOGIST-C [address] [facility] [address] [place] [address] NURSE PRACTITIONER 05/27/22 Mame Osborn MD [address] [place] [address] INTERVENTIONAL CARDIOLOGY 05/10/24
--- OUTSIDE RECORDS SUMMARY | 2025-03-03 07:02 | XMS_ITS | Clinical Summary ---
Author Organization [facility] Address [address] [place] [id number] Care Team Providers Care Information Systems Administrator Name Role Phone Willian Mendoza MD Primary Care Provider [phone] Allergies Active Allergy Reactions Criticality Noted Date [...] mouth 2 (two) times a day Active nusurleycosn-Tb-k marva-minerals tablet Take 1 tablet by mouth [...] DAY 400 each 1 09/12/19 20 Active fluticasone propionate (FLONASE) 50 mcg/actuation nasal spray 12/17/19 20 Active HYDROcodone-aceta minophen (NORCO) 7.5-325 mg per tablet 12/17/19 20 Active ferrous sulfate 325 mg (65 mg of elemental iron) tablet Take 1 tablet (325 mg total) by mouth 2 (two) times a day Active cholecalciferol (VITAMIN D-3) 4,000 unit capsule Active lancets (TRUEplus Lancets) 28 gauge miscIndications:T ype 2 diabetes mellitus with hyperglycemia, with long-term current use of insulin ([facility]) USE FOR TESTING FOUR TIMES A DAY DIRECTED 400 each 3 03/21/20 22 Active pen needle, diabetic (TRUEplus Pen Needle) 31 gauge x 3/16 needle Use to inject insulin up to 5 times daily 450 each 2 03/21/20 22 Active alcohol swabs (BD Alcohol Swabs) pads, medicatedIndicati ons:Type 2 diabetes mellitus with hyperglycemia, with long-term current use of insulin ([facility]) USE DIRECTED 4 TIMES DAILY [...] 1 tablet (100 mcg total) by mouth system developer associate manager before breakfast 90 tablet 3 08/07/20 24 Active Farxiga 10 mg tabletIndications :Type 2 diabetes mellitus with hyperglycemia, with long-term current use of insulin ([facility]) TAKE 1 TABLET BY MOUTH DAILY 100 tablet 2 09/04/19 25 Active blood-glucose sensor device Change sensors every 10 days Dx. E11.65 9 each 3 09/11/19 Active Ozempic 2 mg/dose (8 mg/3 mL) pen injector injectionIndicati ons:Type 2 diabetes mellitus with hyperglycemia, with long-term current use of insulin (HCC) INJECT SUBCUTANEOUSLY 2 MG EVERY WEEK 9 mL 3 12/21/19 Active amitriptyline (ELAVIL) 25 mg tablet 02/13/20 Active verapamil SR (CALAN SR) 120 mg CR tablet Take 1 tablet (120 mg total) by mouth daily 09/10/19 025 Disconti nued(Oth er) cetirizine (ZyrTEC) 10 mg tablet Take 1 tablet (10 mg total) by mouth daily 025 Disconti nued(Oth er) DULoxetine DR (CYMBALTA) 20 mg capsule Take 1 capsule (20 mg total) by mouth daily 03/30/20 025 Disconti nued(Oth er) cholestyramine (QUESTRAN) 4 gram powder 08/06/20 025 Disconti nued(Oth er) dicyclomine (BENTYL) 20 mg tablet 07/25/20 025 Disconti nued(Oth er) doxycycline 100 mg tablet 06/06/20 025 Disconti nued(Oth er) pancrelipase (CREON) 3,000 [...] appearing cyst on renal bladder ultrasound at [place] dated 08/26/2022. Diabetes mellitus 02/18/2025 Overview (02/18/2025): Phreesia 06/01/2021 H/O gastric sleeve 01/09/2024 Iron deficiency anemia 08/31/2023 Stage 3b chronic kidney disease 08/31/2023 Hypertension, essential 08/31/2023 Overview (02/18/2025): Phreesia 06/01/2021 Hypomagnesemia 05/07/2023 Acquired hypothyroidism 03/17/2022 Assessment & Plan (08/07/2024 5:51 PM PREPARATION SUPERVISOR FREEZING): Chronic, stable. Continue levothyroxine Update TFTs Assessment & Plan (08/10/2023 3:53 PM PREPARATION SUPERVISOR FREEZING): Chronic, well-controlled Importance of taking levothyroxine on [...] 04/17/2018 Hyperlipidemia associated with type 2 diabetes m casa 04/17/2018 Assessment & Plan (08/07/2024 5:51 PM PREPARATION SUPERVISOR FREEZING): Chronic, stable Update lipid profile Continue statin therapy Assessment & Plan (08/10/2023 3:53 PM PREPARATION SUPERVISOR FREEZING): Chronic, well-controlled Continue statin therapy with Pravachol Assessment & Plan (01/17/2023 1:59 PM CDT): Chronic, well controlled Low fat Low cholesterol diet Exercise Continue statin therapy with Pravachol Assessment & Plan (03/17/2022 9:47 AM CDT): Chronic problem. On statin therapy, no changes. Assessment & Plan (10/28/2021 1:21 PM PREPARATION SUPERVISOR FREEZING): Chronic problem. On statin therapy, no changes. [...] Pravachol Assessment & Plan (09/27/2019 9:29 AM PREPARATION SUPERVISOR FREEZING): LDL at goal. Trigs elevated. Continue statin [...] therapy Assessment & Plan (08/07/2018 1:59 PM PREPARATION SUPERVISOR FREEZING): At goal on current medications. Assessment & [...] dicussed Assessment & Plan (09/27/2019 9:29 AM PREPARATION SUPERVISOR FREEZING): Continues to do well with wt loss [...] adjusted. Assessment & Plan (08/07/2018 1:59 PM PREPARATION SUPERVISOR FREEZING): Continues to gain weight. Little attempt at diet and exercise. Reviewed importance of avoiding juice, soda, high fat, high carb foods. Assessment & Plan (10/05/2017 2:49 PM PREPARATION SUPERVISOR FREEZING): Diet and exercise were discussed. 1200 Calorie diet advised 45-60 min aerobic / resistance exercise most days of the week recommended. Bariatric surgery medically indicated Assessment & Plan (07/20/2017 4:17 PM PREPARATION SUPERVISOR FREEZING): Importance of following diet and exercising discussed. 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 Assessment & Plan (10/28/2021 1:21 PM PREPARATION SUPERVISOR FREEZING): Controlled on current medications, no changes. Assessment [...] microalbumin Assessment & Plan (09/27/2019 9:29 AM PREPARATION SUPERVISOR FREEZING): Controlled on current medications. Continue plan. Assessment & Plan (06/06/2019 2:49 PM CDT): Controlled on current medications. Continue plan. Assessment & Plan (11/01/2018 2:04 PM CDT): Goal blood pressure is less than 140/85 Low salt diet recommended Daily aerobic exercise Continue current meds, including ALYCE-I or ARB Assessment & Plan (08/07/2018 2:00 PM PREPARATION SUPERVISOR FREEZING): Controlled on current medications. Assessment & Plan (04/17/2018 2:07 PM CDT): Goal blood pressure is less than 140/85 Low salt diet recommended Daily aerobic exercise Continue current meds, including ALYCE-I or ARB Assessment & Plan (10/05/2017 2:50 PM PREPARATION SUPERVISOR FREEZING): Goal blood pressure is less than 140/85 Low salt diet recommended Daily aerobic exercise Continue current meds, including ALYCE-I or ARB Assessment & Plan (07/20/2017 4:18 PM PREPARATION SUPERVISOR FREEZING): Controlled on current medications. Assessment & Plan (04/06/2017 4:28 PM CDT): At goal on current medications. Hyperlipidemia 09/19/2012 Overview (11/24/2016): HYPERLIPIDEMIA NEC/NOS Assessment & Plan (06/06/2019 2:49 PM CDT): Lipid panel ordered Assessment & Plan (07/20/2017 4:18 PM PREPARATION SUPERVISOR FREEZING): Will check lipid panel Assessment & Plan (04/06/2017 4:28 PM CDT): Check labs and focus on low fat foods Furuncle of trunk 06/28/2012 Overview (11/23/2016): Carbuncle and furuncle of trunk Type 2 diabetes mellitus 06/28/2012 Overview (11/24/2016): DMII WO CMP UNCNTRLD Assessment & Plan (08/07/2024 5:50 PM PREPARATION SUPERVISOR FREEZING): Chronic, stable Diet and exercise were emphasized Continue Farxiga and Ozempic Assessment & Plan (02/13/2024 4:29 PM CDT): Chronic, well-controlled. Continue Ozempic 2 mg weekly Farxiga 10 mg Importance of diet and exercise was discussed Assessment & Plan (08/10/2023 3:52 PM PREPARATION SUPERVISOR FREEZING): Chronic, well-controlled, with some postprandial hyperglycemia Continue [...] Farxita Assessment & Plan (07/19/2022 1:34 PM PREPARATION SUPERVISOR FREEZING): Hba1c was Lab Results Component Value Date [...] today. Assessment & Plan (10/28/2021 1:43 PM PREPARATION SUPERVISOR FREEZING): Chronic problem, not at goal. Increase NL [...] breakfast Assessment & Plan (09/27/2019 9:31 AM PREPARATION SUPERVISOR FREEZING): A1c increased to 7.8. 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 Assessment & Plan (08/07/2018 2:02 PM PREPARATION SUPERVISOR FREEZING): A1c 8.1. Baseline BG reported at goal. [...] discussed. Assessment & Plan (10/05/2017 2:51 PM PREPARATION SUPERVISOR FREEZING): Hba1c was . 9.6 . today, indicating [...] discussed. Assessment & Plan (07/20/2017 4:17 PM PREPARATION SUPERVISOR FREEZING): A1c improved 8.7, ~ 2%. Mostly from [...] Description 02/27/2025 Results Follow-Up [facility] [address] [address] Anthony Castillo MD Comprehensive metabolic panel 02/27/2025 Telephone [facility] [address] [address] Anthony Castillo MD 02/25/2025 Telephone [facility] [address] [address] Anthony Castillo MD [facility] 02/18/2025 3:40 PM CDT Lab [address] [address] Type 2 diabetes mellitus with hyperglycemia, with long-term current use of insulin (HCC) 02/18/2025 3:15 PM CDT Office Visit [facility] [address] [phone] Anthony Castillo MD Type 2 diabetes mellitus with hyperglycemia, with long-term current use of insulin (HCC) (Primary Dx) 02/06/2025 Telephone [facility] [address] [address] Anthony Castillo MD 02/04/2025 Telephone [facility] [address] [address] Anthony Castillo MD certificate of medical necessity from Last 3 Months Immunizations Immunization Administration Dates Next Due DTP 11/07/1969, 8,05/08/1968,04/10 Hep A, Adult 07/25/2006 Influenza, Quadrivalent, Spl it, Intramuscular 04/20/2017,05/23/2014 Influenza, Quadrivalent, Spl it, Preservative Free, Intramuscular 05/13/2019,05/17/2018,05/04/2016 Influenza, Trivalent, IM (MDV) 04/02/2015,2012 Influenza, Trivalent, Split, Preservative Free, Intradermal 05/02/2012 MMR 01/25/1991 Measles 12/02/1968 Mumps 02/04/1969 Pneumococcal Polysaccharide PPV23 04/02/2015 Td, adsorbed 07/25/2006 Tdap 04/23/2017 Surgical History Surgery Date Site/Laterality Comments BARIATRIC [...] on file Legal Sex Female 10:22 AM PREPARATION SUPERVISOR FREEZING Gender Identity Not on file Sexual Orientation Straight 08/07/2024 2: 11 PM PREPARATION SUPERVISOR FREEZING Obstetrics History Last Filed Vital Signs Vital [...] 02/18/2025 3:11 PM CDT Plan of Treatment Health Maintenance Due Date Last Done Comments Breast Cancer Screening-Mammogram 1967 Cervical Cancer Screening 1967 Colon Cancer Screening-Colonoscopy 1967 Hepatitis C Screening 1967 Hepatitis B Screening 10/25/1985 Regular Well Visit/Exam 18-64 10/25/1985 Pneumococcal vaccine <65 (2 of 2 - PCV) 04/02/2016 04/02/2015 Zoster Vaccine (1 of 2) 10/25/2017 Foot Exam 01/18/2024 01/17/2023, 10/19, 05/28/2020, Additional history exists Dilated Eye Exam 10/11/2024 10/11/2023, , 09/03/2020, Additional history exists Influenza Vaccine (#1) 2025 9, 05/17/2018, 04/20/2017, Additional history exists Depression Screening 08/07/2025 08/07/2024, 02/13/2024, 01/17/2023, Additional history exists Hemoglobin A1C 08/21/2025 02/18/2025, 07/21, 02/13/2024, Additional history exists Albumin Creatinine Ratio, Urine 02/18/2026 02/18/2025, 08/28/2023, 12/26/2022, Additional history exists Lipid Panel 02/18/2026 02/18/2025, 07/22, 03/17/2022, Additional history exists eGFR 02/18/2026 02/18/2025, 07/21, 08/28/2023, Additional history exists DTaP/Tdap/Td Vaccine (6 - [...] with long-term current use of insulin (HCC) DIABETES EYE EXAM Routine 10/11/2023 9:29 AM PREPARATION SUPERVISOR FREEZING from Last 3 Months or Most Recently [...] LAB BLOOD ORDERABLES Final Resul t [facility] [id number] Department [place] [address] * (ABNORMAL) Albumin Creatinine Ratio, Urine (02/18/2025 4:02 PM CDT) Albumin Ur 21.3 mg/L Comment: Interpretive Data No reference range established. Current interpretive data was last revised 2019. Creatinine Ur 32.8 mg/dL [facility] Comment: Interpretive Data No reference range established. Current interpretive data was last revised 2019. Albumin Creatinine Ratio, Ur 65(H) 1 - 29 mg/g [facility] Urine 02/18/2025 4:02 PM CDT 02/18/2025 7:38 PM CDT us Anthony Castillo MD LAB URINE ORDERABLES Final Resul t [facility] [id number] Department [place] [address] * (ABNORMAL) Lipid panel (02/18/2025 4:02 PM [...] on 2018. Triglycerides 267(H) <=149 mg/dL [facility] Comment: Interpretive Data [...] 2018. LDL, calculated 54 <=129 mg/dL [facility] Comment: Interpretive Data [...] NCEP Expert Panel. Circulation 2004;110:227 3. Mikel Guerra. JIM Cardiol. 2019December 19;5(5):540-548. doi: 10.1001/jamacardio.2020.0013 Current Interpretive Data was last revised on 2024. Non-HDL Cholesterol 95 mg/dL [facility] Comment: Interpretive Data Ages [...] last revised on 2018. Chol/HDL ratio 3 [facility] Blood 02/18/2025 4:02 PM CDT 02/18/2025 7:38 PM CDT us Anthony Castillo MD LAB [place] [id number] [address] Department [place] [address] * (ABNORMAL) Comprehensive metabolic panel (02/18/2025 4:02 [...] 4:02 PM CDT 02/18/2025 7:38 PM CDT Result [facility] Anthony Castillo MD LAB BLOOD ORDERABLES Final Resul t [facility] [address] Department [place] [address] * (ABNORMAL) POCT hemoglobin A1c (02/18/2025 3:13 PM CDT) Hemoglobin A1C, POC 6.6(A) 4.0 - 5.6 % Comment:None Capillary blood 02/18/2025 3 :13 PM CDT Result [facility] Anthony Castillo MD POINT OF CARE TEST ORDERABLES Fi nal Result * POCT glucose (02/18/2025 3:13 PM CDT) Glucose Blood, POC 130 Normal Fasting 70 - 100, Random <200 mg/dL Comment:None Blood 02/18/2025 3:13 PM CDT Result [facility] Anthony Castillo MD POINT OF CARE TEST ORDERABLES Fi nal Result * (ABNORMAL) DIABETES EYE EXAM (10/11/2023 9:29 AM PREPARATION SUPERVISOR FREEZING) Result [facility] Isis Salgado MD HEALTH MAINTENANCE Final Result from Last 3 Months or Most Recently Relevant to Health Maintenance Insurance [facility] MEDICARE ADVANTAGE [facility] MEDICARE ADVANTAGE Care Teams Information Systems Administrator Relationship Specialty Start Date End Date Willian Mendoza MD PCP - General 02/18/16
--- OUTSIDE RECORDS SUMMARY | 2025-03-03 07:02 | XMS_ITS | Encounter Summary ---
Author Organization [facility] Address [facility] [place] [address] Care Team Providers Care Structural Steel Worker Helper Name Role Phone Alexis Thurman MD Unavailable [phone] Willian Mendoza MD Primary Care Provider [phone] Cee Liu APRN, FIXED ROUTE OPERATOR-C Unavailable Virgilio Meehan DO Primary Care Provider [phone] Mame Osborn MD Unavailable [phone] Encounter Details Date Type Department Care Team (Late st Contact Info) Description 11/04/2017 Abstract [facility] CONVERSION [address] [place] [address] , Generic ConversionMD Social History Tobacco Use [...] Description 05/12/2025 1:30 PM CDT Office Visit [facility] eld [address] [place] [address] Cee Liu, ANGEL, FIXED ROUTE OPERATOR-C [address] [facility] [address] [place] [phone] documented as of this encounter Visit Diagnoses Not on filedocumented in this encounter Care Teams Structural Steel Worker Helper Relationship Specialty Start Date End Date Willian Mendoza MD [address] [place] [address] PCP - General INTERNAL MEDICINE 09/14/18 09/07/22 Virgilio Meehan DO [address] [place] [address] PCP - General FAMILY PRACTICE 09/08/22 Alexis Thurman MD [address] [place] [address] [address] [place] CARDIOVASCULAR DISEASE 09/14/18 04/01/24 Cee Liu, SELENIUM PLANT OPERATOR, FIXED ROUTE OPERATOR-C [address] [facility] [address] [place] [address] NURSE PRACTITIONER 05/27/22 Mame Osborn MD [address] [place] [address] INTERVENTIONAL CARDIOLOGY 05/10/24 documented as of this encounter
== END 2025-03-03 06:55 | disposition home or self-care (01) ==
LOC: CHSLAB 06:59 → CHSIMG 07:00
PROVIDERS: PCP Family Medicine; Visit Provider Orthopaedic Surgery
DX: M25.571 Pain in right ankle and joints of right foot (principal); S82.61XA Displaced fracture of lateral malleolus of right fibula, initial encounter for closed fracture
CPT/HCPCS: 73610

== ENCOUNTER 2025-03-10 13:44 | Outpatient (CLI) | payer MEDICARE, MEDICAID, SELFPAY ==
--- OUTSIDE RECORDS SUMMARY | 2025-03-10 13:55 | XMS_ITS | Data Portability ---
Author Organization [facility] Address [address] [place] [address] Care Team Providers Care Gas Engine Repairer Name Role Phone ELKE JACOBO Primary Care Provider [phone] Assessment Encounter Date Assessment Date Assessment LastModified [...] scula r No observ ation record ed. [facility]) [address] [place], [address], 04/10/2022 00:58:08 Result Notes None recorded. Problems Name Problem SNOMED Code Status Onset Date Resolution Date Notes Provider Name and Address Organization Details Recorded Time Menopaus e present [id number] Completed 201503/22/2022 Menopausa l and female climacter ic states;Re corded Elsewhere : No Locati on: [facility] So urce: EHR Chron ic: N Practic e ID: [id number] Bill able Time: 01:00:00 PM Cecilia kelsey [facility] 2 16:06:[address] Concept Completed 201503/22/2022 Encntr for general adult medical exam w/o abnormal findings; Recorded Elsewhere : No Locati on: [facility] So urce: EHR Chron ic: N Practic e ID: [id number] Bill able Time: 03:30:00 PM Cecilia Rangel [facility], [facility] 2 16:06:09 Screenin g for malignan t neoplasm of rectum Completed 201503/22/2022 Encounter for screening for malignant neoplasm of rectum;Re corded Elsewhere : No Locati on: [facility] So urce: EHR Chron ic: N Practic e ID: [id number] Bill able Time: 03:30:[address] [facility] 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 2 16:06:09 Screenin g for malignan t neoplasm of cervix Completed 201503/22/2022 Encounter for screening for malignant neoplasm of cervix;Re corded Elsewhere : No Locati on: [facility] So urce: EHR Chron ic: N Practic e ID: [id number] Bill able Time: 03:30:[address] [facility] 2 16:06:09 Congenit al malforma tion [id number] Completed 201503/22/2022 Congenita l anomaly;R ecorded Elsewhere : No Locati on: [facility] So urce: EHR Chron ic: N Practic e ID: 0001 Bill able Time: 03:30:00 PM [facility] 16:06:09 Problem Notes None recorded. Procedures Surgical History Date Name Laterality Status Provider Name and Address Organization Details Recorded Time 08/21/19 19 laparoscopic sleeve gastrectomy completed [facility] 03/23/2022 15:05:08 08/21/19 17 operation on mandible completed [facility] 03/23/2022 15:04:14 insertion of ureteral stent with ureterotomy completed [facility] 03/23/2022 15:03:53 Unlisted px femur/knee completed [facility] 03/23/2022 15:04:37 perinasal sinusotomy completed [facility] 03/23/2022 15:04:43 Carpal tunnel surgery completed [facility] 03/23/2022 15:04:53 Imaging Results [...] every day in the evening 04/16 completed [facility] ed Elsewher e: No Locat ion: [facility] odify By: hiral Martin ncounter DateTime : 04/05/20 16 12:01:40 PM Not Available Not Available Not Available Neurontin 300 mg capsule take 1 capsule by oral route 3 times every day 04/28 completed Prescrib ed Elsewher e: No Locat ion: [facility] odify By: wendy Martin ncounter DateTime : 03/08/20 16 09:00:54 AM Not Available Not Available Not Available verapamil 40 mg tablet take 1 tablet by oral route 3 times every day 03/23 completed Prescrib ed Elsewher e: Yes Loca tion: Vik [facility]in [facility] odify By: [email or web address] trick En [...] ed Elsewher e: Yes Loca tion: Vik [facility] odify By: [email or web address] trick En counter DateTime : 01/27/20 16 01:00:00 PM Not Available Not Available Not Available propranol ol 60 mg tablet take 1 tablet by oral route 2 times every day 03/23 completed Prescrib ed Elsewher e: Yes Loca tion: Vik martin [facility] odify By: [email or web address] trick En [...] ed Elsewher e: Yes Loca tion: Vik [facility] odify By: [email or web address] trick En counter DateTime : 01/27/20 16 01:00:00 PM Not Available Not Available Not Available glimepiri de 1 mg tablet take 1 tablet by oral route every day 03/23 completed Prescrib ed Elsewher e: Yes Loca tion: [facility] odify By: wendy guevarauntean DateTime : 04/28/20 16 03:30:00 PM Not Available Not Available Not Available levothyro xine 100 mcg tablet active Not Available Not Available Not Available ropinirol e 0.25 mg tablet take 1 tablet by oral route every day q 4-6hrs prn 03/23 completed Prescrib ed Elsewher e: Yes Loca tion: Vik martin [facility] odify By: wendy Martin ncounter DateTime : 04/28/20 16 03:30:00 PM Not Available Not Available Not Available Humalog U-100 Insulin 100 unit/mL subcutane ous solution inject by subcutan eous route per prescrib er's instruct ions. Insulin dosing requires individu alizatio n. 03/23 completed Prescrib ed Elsewher e: Yes Loca tion: Vik martin [facility] odify By: ammauricio Martin ncounter [...] e: No Locat ion: [facility]in [facility] odify By: ammauricio Martin ncounter DateTime : 01/27/20 16 01:00:00 PM Not Available Not Available Not Available ranitidin e 300 mg capsule take 1 capsule by oral route every day at bedtime 03/23 completed Prescrib ed Elsewher e: Yes Loca tion: Vik martin [facility] odify By: [email or web address] trick En [...] e: No Locat ion: [facility]in [facility] odify By: ammauricio Martin ncounter DateTime : 03/31/20 16 04:45:00 PM Not Available Not Available Not Available cefdinir 300 mg capsule 03/23 completed Not Available Not Available Not Available losartan 100 mg tablet take 1 tablet by oral route every day 03/23 completed Prescrib ed Elsewher e: Yes Loca tion: Vik martin [facility] odify By: [email or web address] trick En [...] e: Yes Loca tion: Vik martin [facility] odify By: [email or web address] trick En counter DateTime : 01/27/20 16 01:00:00 PM Not Available Not Available Not Available Estrace 1 mg tablet take 1 tablet by oral route every day 2015 active Prescrib ed Elsewher e: No Locat ion: Vik martin [facility] odify By: tgingminh h Becki ter DateTime : 04/28/20 16 03:30:00 PM Not Available Not Available Not Available progester one micronize d 100 mg capsule take 1 capsule by oral route every day for 10 days in the evening 05/07 completed Prescrib ed Elsewher e: Yes Loca tion: Vik martin [facility] odify By: ammauricio carbone DateTime : 04/28/20 16 03:30:00 PM Not Available Not Available Not Available amoxicill in 875 mg-potass ium clavulana te 125 mg tablet 03/23 completed Not Available Not Available Not Available iron 18 mg tablet 2015 active Prescrib ed Elsewher e: Yes Loca tion: Vik martin [facility] odify By: [email or web address] trick En counter DateTime : 01/27/20 16 01:00:00 PM Not Available Not Available Not Available magnesium 200 mg tablet 2015 active Prescrib ed Elsewher e: Yes Loca tion: Vik martin [facility] odify By: [email or web address] trick En counter DateTime : 01/27/20 16 01:00:00 PM Not Available Not Available Not Available Vitamin D3 25 mcg (1,000 unit) tablet take 1 by Oral route once for 2 months then draw labs 2015 active Prescrib ed Elsewher e: Yes Loca tion: Vik martin [facility] odify By: [email or web address] trick En counter DateTime : 01/27/20 16 01:00:00 PM Not Available Not Available Not Available nitrofura ntoin monohydra te/macroc rystals 100 mg capsule active Not Available Not Available Not Available duloxetin e 20 mg capsule,d elayed release active Not Available Not Available Not Available Cinnamon 500 mg capsule 2015 active Prescrib ed Elsewher e: Yes [facility] By: [email or web address] trick En counter DateTime : 01/27/20 16 01:00:00 PM Not Available Not Available Not Available Lantus Solostar U-100 Insulin 100 unit/mL (3 mL) subcutane ous pen active Not Available Not Available Not Available Tirosint 75 mcg capsule take 1 capsule by oral route every day 04/28 completed Prescrib ed Elsewher e: Yes Loca tion: Robe mario [facility] odify By: [email or web address] Martin ncounter DateTime : 01/27/20 16 01:00:00 PM Not Available Not Available Not Available Bydureon 2 mg subcutane ous extended release suspensio n inject by subcutan eous route every 7 days once 03/23 completed Prescrib ed Elsewher e: Yes Loca tion: [facility] odify By: [email or web address] trick En [...] Updated DateTime 03/23/2022 168.91 cm 49.1 kg/m2 311490.04 g 136/80 mm[Hg] Cecilia Rangel [facility] 03/23/2022 14:58:40 Social History Question Answer Notes LastModified by Organizat ion Details LastModified Time Tobacco Smoking Status Never Smoker Cecilia Rangel [facility], [facility] 03/23/2022 15:03:27 Are You Blind Or [...] anxious, or unable to sleep at night)? [id number] Information not available 03/23/2022 Family History Relationship [...] SNOMED-CT Code Diagnosis ICD10 Code Diagnosis Note [id number] Kim Tovar [facility] [address] [address] 03/23/2022 14:11:49 03/24/2022 16:35:54 Gynecologic examination [id number] Z01.419 Take Calcium with Vitamin D 12-1500mg daily. Do monthly self breast exams. It is advised to get annual flu shot in the fall and she could obtain at [facility] or [facility] clinic. If you haven't received the [...] Labs UTD PCPMammo UTD PCP Inguinal pain [id number] R10.2 Left sided groin pain.Exam difficult due [...] Arias Member ID Guarantor Name 03/24/2022 2 MEDICAID-[place]: [facility] Keri Stone [id number] Keri Stone 03/24/2022 1 [facility] Keri Stone [id number] Keri Stone 03/24/2022 2 [place] (MEDICARE) Keri Stone [id number] Keri Stone 03/24/2022 1 [facility] (MEDICARE REPLACEMENT/A DVANTAGE - PPO) Keri Stone [id number] Keri Stone Notes Date Note Type Note Provider Name and Address Organization Details Recorded Time 03/23/2022 text/html [employer] T[employer] Sales Post-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 Kim Tovar, [facility] [address], [place], [address], [place] - [facility] 03/24/2022 16:16:15 OBGyn Episode No OBEpisode recorded.
--- OUTSIDE RECORDS SUMMARY | 2025-03-10 13:55 | XMS_ITS | Encounter Summary ---
Author Organization [facility] Address [facility] [place] [address] Care Team Providers Care Banquet Stewardess Name Role Phone Alexis Thurman MD Unavailable [phone] Willian Mendoza MD Primary Care Provider [phone] Cee Liu APRN, CORD MAKER-C Unavailable Virgilio Meehan DO Primary Care Provider [phone] Mame Osborn MD Unavailable [phone] Encounter Details Date Type Department Care Team (Late st Contact Info) Description 10/12/2018 Abstract [facility] [address] [place] [address] Abstract, Doc Prevea Social History [...] PM CDT [facility] [address] [place] [phone] Cee Liu APRN, CORD MAKER-C [address] [facility] [address] [place] [address] documented as of this encounter Visit Diagnoses Not on filedocumented in this encounter Care Teams Banquet Stewardess Relationship Specialty Start Date End Date Willian Mendoza MD [address] [place] [address] PCP - General INTERNAL MEDICINE 09/14/18 09/07/22 Virgilio Meehan DO [address] [place] [address] PCP - General FAMILY PRACTICE 09/08/22 Alexis Thurman MD [address] [place] [phone] [facility] Chair CARDIOVASCULAR DISEASE 09/14/18 04/01/24 Cee Liu APRN, CORD MAKER-C [address] [facility] [address] [place] [phone] NURSE PRACTITIONER 05/27/22 Mame Osborn MD [address] [place], [place] [id number] INTERVENTIONAL CARDIOLOGY 05/10/24 documented as of this encounter
--- OUTSIDE RECORDS SUMMARY | 2025-03-10 13:55 | XMS_ITS | Encounter Summary ---
Author Organization [facility] Address [facility] [place] [address] Care Team Providers Care Sales Operations Analyst Name Role Phone Alexis Thurman MD Unavailable [phone] Willian Mendoza MD Primary Care Provider [phone] Cee Liu APRN, BLANKET INSPECTOR-C Unavailable Virgilio Meehan DO Primary Care Provider [phone] Mame Osborn MD Unavailable [phone] Encounter Details Date Type Department Care Team (Late st Contact Info) Description 04/07/2021 Abstract [facility] [address] [place] [address] [place] [address] [place] [id number] Social History Tobacco Use Types Packs/Day Years [...] 1:30 PM CDT Office Visit Mariela [facility] el [address] [place] [phone] Cee Liu APRN, BLANKET INSPECTOR-C [address] [phone] documented as of this encounter Visit Diagnoses Not on filedocumented in this encounter Care Teams Sales Operations Analyst Relationship Specialty Start Date End Date Willian Mendoza MD [address] [place] [address] PCP - General INTERNAL MEDICINE 09/14/18 09/07/22 Virgilio Meehan DO [address] [place] [address] PCP - General FAMILY PRACTICE 09/08/22 Alexis Thurman MD [address] [place] [phone] [employer] [employer] Drying Machine Operator CARDIOVASCULAR DISEASE 09/14/18 04/01/24 Cee Liu APRN, BLANKET INSPECTOR-C [address] [phone] NURSE PRACTITIONER 05/27/22 Mame Osborn MD [address] [place] [address] INTERVENTIONAL CARDIOLOGY 05/10/24 documented as of this encounter
--- OUTSIDE RECORDS SUMMARY | 2025-03-10 13:55 | XMS_ITS ---
Author Organization [facility] Address [address] [place], [place] [address] Care Team Providers Care Heel Packer Name Role Phone MIRIAN MOSHER Unavailable [phone] Virgilio Meehan Unavailable Unavailable WILFREDO BRODERICK Unavailable [phone] REASON FOR VISIT *General care Medications Medication SIG (Take, Route, Frequency, Duration) Notes Start Date End Date Status levothyroxine sodium 0.1 MG Oral Capsule ORAL levothyroxine sodium 0.1 MG Oral CapsuleOriginal Medicationlevothyroxine sodium 0.1 MG Oral Capsule *Reorder from [facility] for eRx and Interaction Alerts* 04/07/20 14 Active nortriptyline 50 MG Oral Capsule ORAL nortriptyline 50 MG Oral CapsuleOriginal Medicationnortriptyline 50 MG Oral Capsule *Reorder from [facility] for eRx and Interaction Alerts* 04/07/20 14 Active ciclopirox 80 MG/ML Topical Solution CUTANEOUS ciclopirox 80 MG/ML Topical SolutionOriginal Medicationciclopirox 80 MG/ML Topical Solution *Reorder from [facility] for eRx and Interaction Alerts* 04/20/20 12 Active cinnamon bark 500 MG Oral Capsule ORAL cinnamon bark 500 MG Oral CapsuleOriginal Medicationcinnamon bark 500 MG Oral Capsule *Reorder from [employer] for eRx and Interaction Alerts* 04/07/20 14 Active esomeprazole 20 MG Injection INTRAVENOUS esomeprazole 20 MG InjectionOriginal Medicationesomeprazole 20 MG Injection *Reorder from [employer] for eRx and Interaction Alerts* 04/07/20 14 Active Nabumetone 500 MG Oral Tablet ORAL nabumetone 500 MG Oral TabletOriginal Medicationnabumetone 500 MG Oral Tablet *Reorder from [facility] for eRx and Interaction Alerts* 06/29/20 12 Active Pravastatin Sodium 10 MG Oral Tablet ORAL pravastatin sodium 10 MG Ora l TabletOriginal Medicationpravastatin sodium 10 MG Oral Tablet *Reorder from [facility] for eRx and Interaction Alerts* 04/07/20 14 Active Losartan Potassium 100 MG Oral Tablet ORAL losartan potassium 100 MG Oral TabletOriginal Medicationlosartan potassium 100 MG Oral Tablet *Reorder from [facility] for eRx and Interaction Alerts* 04/07/20 14 Active 3 ML insulin glargine 100 UNT/ML Pen Injector [Lantus] 3 ML insulin glargine 100 UNT/ML Pen Injector [Lantus]Original Medication3 ML insulin glargine 100 UNT/ML Pen Injector [Lantus] *Reorder from [facility] for eRx and Interaction Alerts* 04/07/20 14 Active cholecalciferol 0.025 MG Oral Capsule ORAL cholecalciferol 0.025 MG Ora l CapsuleOriginal Medicationcholecalciferol 0.025 MG Oral Capsule *Reorder from [facility] for eRx and Interaction Alerts* 04/07/20 14 Active verapamil hydrochloride 40 MG Oral Tablet ORAL verapamil hydrochloride 40 M G Oral TabletOriginal Medicationverapamil hydrochloride 40 MG Oral Tablet *Reorder from [facility] for eRx and Interaction Alerts* 04/07/20 14 Active propranolol hydrochloride 40 MG Oral Tablet ORAL propranolol hydrochloride 40 MG Oral TabletOriginal Medicationpropranolol hydrochloride 40 MG Oral Tablet *Reorder from [facility] for eRx and Interaction Alerts* 04/07/20 14 Active Allopurinol 300 MG Oral Tablet ORAL allopurinol 300 MG Oral TabletOriginal Medicationallopurinol 300 MG Oral Tablet *Reorder from [facility] for eRx and Interaction Alerts* 04/07/20 14 Active Spironolactone 25 MG Oral Tablet ORAL spironolactone 25 MG Oral TabletOriginal Medicationspironolactone 25 MG Oral Tablet *Reorder from [facility] for eRx and Interaction Alerts* 04/07/20 14 Active Vital Signs Height 67.00 in 03/06/2025 Weight 251 lbs 03/06/2025 BMI 39.31 kg/m2 03/06/2025 Height-cm 170.18 cm 03/06/2025 Weight-kg 113.85 kg 03/06/2025 Encounters Encounter Location Date Provider Diagnosis [address] [id number] 03/06/2025 WILFREDO BRODERICK Plan Of Treatment Next Appt Details Provider Name:WILFREDO MARTIN, 05/08/2025 01:50:00 PM, [address] [place] [address], [phone], Progress Notes * MABEL MATEUSZ ADOB:[birth year] (59 yo F)Acc No.[id number]:03/06/2025 Patient: MATEUSZ ZHU Provider: Gavi BRODERICK :1965 A ge:59 Y S ex:Female Date:03/06/2025 Address:[address] [place], [place] [id number] Subjective: * Chief Complaints: * 1 . *General care. * HPI: H PI: General care P atient presents to the office for diabetic foot care. Patient states that their nails are thickened, elongated and painful. Patient states that it is aggravated by shoe gear. Onset is gradual., Patient denies taking blood thinners., Date last seen by Dr. Mendoza was 02/2025., Initials [facility]. * Medical History: Gavi cooper. * Family History: F ather: PRN - [...] Medicationallopurinol 300 MG Oral Tablet *Reorder from [facility] for eRx and Interaction Alerts*, Taking Spironolactone 25 MG Oral Tablet ORAL , Notes to Pharmacist: spironolactone 25 MG Oral TabletOriginal Medicationspironolactone 25 MG Oral Tablet *Reorder from [facility] for eRx and Interaction Alerts*, Taking Nabumetone 500 MG Oral Tablet ORAL , Notes to Pharmacist: nabumetone 500 MG Oral TabletOriginal Medicationnabumetone 500 MG Oral Tablet *Reorder from [facility] for eRx and Interaction Alerts*, Taking Pravastatin Sodium 10 MG Oral Tablet ORAL , Notes to Pharmacist: pravastatin sodium 10 MG Oral TabletOriginal Medicationpravastatin sodium 10 MG Oral Tablet *Reorder from [facility] for eRx and Interaction Alerts*, Taking Losartan Potassium 100 MG Oral Tablet ORAL , Notes to Pharmacist: losartan potassium 100 MG Oral TabletOriginal Medicationlosartan potassium 100 MG Oral Tablet *Reorder from [facility] for eRx and Interaction Alerts*, Taking 3 ML insulin glargine 100 UNT/ML Pen Injector [Lantus] , Notes to Pharmacist: 3 ML insulin glargine 100 UNT/ML Pen Injector [Lantus]Original Medication3 ML insulin glargine 100 UNT/ML Pen Injector [Lantus] *Reorder from [facility] for eRx and Interaction Alerts*, Taking cholecalciferol 0.025 MG Oral Capsule ORAL , Notes to Pharmacist: cholecalciferol 0.025 MG Oral CapsuleOriginal Medicationcholecalciferol 0.025 MG Oral Capsule *Reorder from [facility] for eRx and Interaction Alerts*, Taking ciclopirox 80 MG/ML Topical Solution CUTANEOUS , Notes to Pharmacist: ciclopirox 80 MG/ML Topical SolutionOriginal Medicationciclopirox 80 MG/ML Topical Solution *Reorder from [facility] for eRx and Interaction Alerts*, Taking cinnamon bark 500 MG Oral Capsule ORAL , Notes to Pharmacist: cinnamon bark 500 MG Oral CapsuleOriginal Medicationcinnamon bark 500 MG Oral Capsule *Reorder from [facility] for eRx and Interaction Alerts*, Taking esomeprazole 20 MG Injection INTRAVENOUS , Notes to Pharmacist: esomeprazole 20 MG InjectionOriginal Medicationesomeprazole 20 MG Injection *Reorder from [facility] for eRx and Interaction Alerts*, Taking levothyroxine sodium 0.1 MG Oral Capsule ORAL , Notes to Pharmacist: levothyroxine sodium 0.1 MG Oral CapsuleOriginal Medicationlevothyroxine sodium 0.1 MG Oral Capsule *Reorder from [facility] for eRx and Interaction Alerts*, Taking nortriptyline 50 MG Oral Capsule ORAL , Notes to Pharmacist: nortriptyline 50 MG Oral CapsuleOriginal Medicationnortriptyline 50 MG Oral Capsule *Reorder from [facility] for eRx and Interaction Alerts*, Taking propranolol hydrochloride 40 MG Oral Tablet ORAL , Notes to Pharmacist: propranolol hydrochloride 40 MG Oral TabletOriginal Medicationpropranolol hydrochloride 40 MG Oral Tablet *Reorder from [facility] for eRx and Interaction Alerts*, Taking verapamil hydrochloride 40 MG Oral Tablet ORAL , Notes to Pharmacist: verapamil hydrochloride 40 MG Oral TabletOriginal Medicationverapamil hydrochloride 40 MG Oral Tablet *Reorder from [facility] for eRx and Interaction Alerts*, Medication List reviewed and reconciled with the patient Objective: * Vitals: W t:251lbs, Wt-k.85 kg, Ht: 67.00 in, Ht-cm: 170.18 cm, BMI:39.31Index, Body Surface Area: 2.32. Assessment: Plan: * Treatment: * Immunizations: Immunization record has been reviewed and updated. * Billing Information: * Visit Code: * Procedure Codes: * Electronic signature of KINA BRODERICK DPM on 03/10/2025 at 01:55 PM CDT Sign off status: Pending * Provider: Gavi BRODERICK Date: 0 03/06/2025 Generated for Curt Hughes on: 03/10/2025 01:55 PM CDT History and Physical Notes * [...]
--- OUTSIDE RECORDS SUMMARY | 2025-03-10 13:55 | XMS_ITS ---
Author Organization [facility] Address [address] [place], [place] [id number] Care Team Providers Care Lead Systems Developer Name Role Phone MIRIAN MOSHER Unavailable [phone] Virgilio Meehan Unavailable Unavailable WILFREDO BRODERICK Unavailable [phone] REASON FOR VISIT *General care Medications Medication SIG (Take, Route, Frequency, Duration) Notes Start Date End Date Status cholecalciferol 0.025 MG Oral Capsule ORAL cholecalciferol 0.025 MG Ora l CapsuleOriginal Medicationcholecalciferol 0.025 MG Oral Capsule *Reorder from [facility] for eRx and Interaction Alerts* 04/07/20 14 Active 3 ML insulin glargine 100 UNT/ML Pen Injector [Lantus] 3 ML insulin glargine 100 UNT/ML Pen Injector [Lantus]Original Medication3 ML insulin glargine 100 UNT/ML Pen Injector [Lantus] *Reorder from [facility] for eRx and Interaction Alerts* 04/07/20 14 Active Nabumetone 500 MG Oral Tablet ORAL nabumetone 500 MG Oral TabletOriginal Medicationnabumetone 500 MG Oral Tablet *Reorder from [facility] for eRx and Interaction Alerts* 06/29/20 12 Active Losartan Potassium 100 MG Oral Tablet ORAL losartan potassium 100 MG Oral TabletOriginal Medicationlosartan potassium 100 MG Oral Tablet *Reorder from [facility] for eRx and Interaction Alerts* 04/07/20 14 Active Pravastatin Sodium 10 MG Oral Tablet ORAL pravastatin sodium 10 MG Ora l TabletOriginal Medicationpravastatin sodium 10 MG Oral Tablet *Reorder from [facility] for eRx and Interaction Alerts* 04/07/20 14 Active Spironolactone 25 MG Oral Tablet ORAL spironolactone 25 MG Oral TabletOriginal Medicationspironolactone 25 MG Oral Tablet *Reorder from [facility] for eRx and Interaction Alerts* 04/07/20 14 Active Allopurinol 300 MG Oral Tablet ORAL allopurinol 300 MG Oral TabletOriginal Medicationallopurinol 300 MG Oral Tablet *Reorder from [facility] for eRx and Interaction Alerts* 04/07/20 14 Active nortriptyline 50 MG Oral Capsule ORAL nortriptyline 50 MG Oral CapsuleOriginal Medicationnortriptyline 50 MG Oral Capsule *Reorder from [facility] for eRx and Interaction Alerts* 04/07/20 14 Active verapamil hydrochloride 40 MG Oral Tablet ORAL verapamil hydrochloride 40 M G Oral TabletOriginal Medicationverapamil hydrochloride 40 MG Oral Tablet *Reorder from [facility] for eRx and Interaction Alerts* 04/07/20 14 Active propranolol hydrochloride 40 MG Oral Tablet ORAL propranolol hydrochloride 40 MG Oral TabletOriginal Medicationpropranolol hydrochloride 40 MG Oral Tablet *Reorder from [facility] for eRx and Interaction Alerts* 04/07/20 14 Active levothyroxine sodium 0.1 MG Oral Capsule ORAL levothyroxine sodium 0.1 MG Oral CapsuleOriginal Medicationlevothyroxine sodium 0.1 MG Oral Capsule *Reorder from [facility] for eRx and Interaction Alerts* 04/07/20 14 Active esomeprazole 20 MG Injection INTRAVENOUS esomeprazole 20 MG InjectionOriginal Medicationesomeprazole 20 MG Injection *Reorder from [facility] for eRx and Interaction Alerts* 04/07/20 14 Active cinnamon bark 500 MG Oral Capsule ORAL cinnamon bark 500 MG Oral CapsuleOriginal Medicationcinnamon bark 500 MG Oral Capsule *Reorder from [facility] for eRx and Interaction Alerts* 04/07/20 14 Active ciclopirox 80 MG/ML Topical Solution CUTANEOUS ciclopirox 80 MG/ML Topical SolutionOriginal Medicationciclopirox 80 MG/ML Topical Solution *Reorder from [facility] for eRx and Interaction Alerts* 04/20/20 12 Active Encounters Encounter Location Date Provider Diagnosis [address] [id number] 01/02/2025 WILFREDO BRODERICK Tinea unguium B35.1 ; Acquired 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 ; 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, bilateral [...] utilizing a #15 blade 01/02/2025 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, bilateral [...] pared utilizing a #15 blade Atherosclerosis of morongo ar teries of extremities with intermittent claudication, [...] reaction Next Appt Details Provider Name:WILFREDO MARTIN, 05/08/2025 01:50:00 PM, [address] [place] [address], [phone], Progress Notes * MATEUSZ MONROE ADOB:[birth year] (59 yo F)Acc No.[id number]:01/02/2025 Patient: S MATEUSZ SNIDER A Provider: Gavi BRODERICK :1965 A ge:59 Y S ex:Female Date:01/02/2025 Address:[address] [place], [place] [id number] Subjective: * Chief Complaints: * 1 . *General care. * HPI: H PI: General care P atient presents to the office for diabetic foot care. Patient states that their nails are thickened, elongated and painful. Patient states that it is aggravated by shoe gear. Onset is gradual., Patient denies taking blood thinners., Date last seen by Dr. Meehan was 12/2024., Initials [facility]. * ROS: G eneral / Constitutional: [...] 300 MG Oral Tablet *Reorder from [facility] for eRx and Interaction Alerts*, Taking Spironolactone 25 MG Oral Tablet ORAL , Notes to Pharmacist: spironolactone 25 MG Oral TabletOriginal Medicationspironolactone 25 MG Oral Tablet *Reorder from [facility] for eRx and Interaction Alerts*, Taking Nabumetone 500 MG Oral Tablet ORAL , Notes to Pharmacist: nabumetone 500 MG Oral TabletOriginal Medicationnabumetone 500 MG Oral Tablet *Reorder from [facility] for eRx and Interaction Alerts*, Taking Pravastatin Sodium 10 MG Oral Tablet ORAL , Notes to Pharmacist: pravastatin sodium 10 MG Oral TabletOriginal Medicationpravastatin sodium 10 MG Oral Tablet *Reorder from [facility] for eRx and Interaction Alerts*, Taking Losartan Potassium 100 MG Oral Tablet ORAL , Notes to Pharmacist: losartan potassium 100 MG Oral TabletOriginal Medicationlosartan potassium 100 MG Oral Tablet *Reorder from [facility] for eRx and Interaction Alerts*, Taking 3 ML insulin glargine 100 UNT/ML Pen Injector [Lantus] , Notes to Pharmacist: 3 ML insulin glargine 100 UNT/ML Pen Injector [Lantus]Original Medication3 ML insulin glargine 100 UNT/ML Pen Injector [Lantus] *Reorder from [facility] for eRx and Interaction Alerts*, Taking cholecalciferol 0.025 MG Oral Capsule ORAL , Notes to Pharmacist: cholecalciferol 0.025 MG Oral CapsuleOriginal Medicationcholecalciferol 0.025 MG Oral Capsule *Reorder from [facility] for eRx and Interaction Alerts*, Taking ciclopirox 80 MG/ML Topical Solution CUTANEOUS , Notes to Pharmacist: ciclopirox 80 MG/ML Topical SolutionOriginal Medicationciclopirox 80 MG/ML Topical Solution *Reorder from [facility] for eRx and Interaction Alerts*, Taking cinnamon bark 500 MG Oral Capsule ORAL , Notes to Pharmacist: cinnamon bark 500 MG Oral CapsuleOriginal Medicationcinnamon bark 500 MG Oral Capsule *Reorder from [facility] for eRx and Interaction Alerts*, Taking esomeprazole 20 MG Injection INTRAVENOUS , Notes to Pharmacist: esomeprazole 20 MG InjectionOriginal Medicationesomeprazole 20 MG Injection *Reorder from [facility] for eRx and Interaction Alerts*, Taking levothyroxine sodium 0.1 MG Oral Capsule ORAL , Notes to Pharmacist: levothyroxine sodium 0.1 MG Oral CapsuleOriginal Medicationlevothyroxine sodium 0.1 MG Oral Capsule *Reorder from [facility] for eRx and Interaction Alerts*, Taking nortriptyline 50 MG Oral Capsule ORAL , Notes to Pharmacist: nortriptyline 50 MG Oral CapsuleOriginal Medicationnortriptyline 50 MG Oral Capsule *Reorder from [facility] for eRx and Interaction Alerts*, Taking propranolol hydrochloride 40 MG Oral Tablet ORAL , Notes to Pharmacist: propranolol hydrochloride 40 MG Oral TabletOriginal Medicationpropranolol hydrochloride 40 MG Oral Tablet *Reorder from [facility] for eRx and Interaction Alerts*, Taking verapamil hydrochloride 40 MG Oral Tablet ORAL , Notes to Pharmacist: verapamil hydrochloride 40 MG Oral TabletOriginal Medicationverapamil hydrochloride 40 MG Oral Tablet *Reorder from [facility] for eRx and Interaction Alerts*, Medication List [...] - L85.1 3 . A therosclerosis of morongo arteries of extremities with intermittent claudication, bilateral [...] a #15 blade 3. A therosclerosis of morongo arteries of extremities with intermittent claudication, bilateral [...] reaction * Billing Information: * Visit Code: 94561 Office Visit, Est Pt., Level 3. * Procedure Codes: * Electronic signature of KINA BRODERICK DPM on 03/10/2025 at 01:55 PM CDT Sign off status: Pending * Provider: Gavi BRODERICK Date: 0 01/02/2025 Generated for Curt small/Ana Maria/Jose on: 0 03/10/2025 01:55 PM CDT History and Physical [...]
--- OUTSIDE RECORDS SUMMARY | 2025-03-10 13:55 | XMS_ITS | Encounter Summary ---
Author Organization [facility] Address [facility] [place] [address] Care Team Providers Care Site Inspector Name Role Phone Alexis Thurman MD Unavailable [phone] Cee Liu APRN, NP-C Unavailable Virgilio Meehan DO Primary Care Provider [phone] Mame Osborn MD Unavailable [phone] Encounter Details Date Type Department Care Team (Late Contact Info) Description 09/23/2022 [facility] [address] [place] [phone] Alexis Thurman MD [address] [place] [address] Social History Tobacco Use Types [...] Coronavirus/COVID-19? No / Unsure 09/08/2022 8:48 AM AUTOMOTIVE SERVICE MANAGER documented as of this encounter Plan of Treatment Upcoming Encounters Date Type Department Care Team (Late Contact Info) Description 05/12/2025 1:30 PM CDT Office Visit [facility] el [address] [place] [address] Cee Liu APRN, GENERAL II FARMWORKER-C [address] [facility] [address] [place] [phone] documented as of this encounter Visit Diagnoses Not on filedocumented in this encounter Care Teams Site Inspector Relationship Specialty Start Date End Date Virgilio Meehan DO [address] [place] [address] PCP - General FAMILY PRACTICE 09/08/22 Alexis Thurman MD [address] [place] [phone] Lexa Electronic Intelligence Officer CARDIOVASCULAR DISEASE 09/14/18 04/01/24 Cee Liu APRN, GENERAL II FARMWORKER-C [address] [facility] [address] [phone] NURSE PRACTITIONER 05/27/22 Mame Osborn MD [address] [place] [address] INTERVENTIONAL CARDIOLOGY 05/10/24 documented as of this encounter
--- OUTSIDE RECORDS SUMMARY | 2025-03-10 13:55 | XMS_ITS | Referral Summary ---
Author Organization [address] Address [address] [place] [address] Care Team Providers Care Network Security Engineer Name Role Phone Willian Mendoza MD Primary Care Provider [phone] Encounters Date Type Department Care Team Description 03/05/2025 Orders Only [facility] Diabetes and Endocrinology [address] [place] [address] ProviderIsis MD 02/27/2025 Results Follow-Up [facility] [address] [address] Anthony Castillo MD Comprehensive metabolic panel 02/27/2025 Telephone [facility] [address] [address] Anthony Castillo MD 02/25/2025 Telephone [facility] [address] [address] Anthony Castillo MD MED Supply 02/18/2025 3:40 PM CDT Lab [address] [address] Type 2 diabetes mellitus with hyperglycemia, with long-term current use of insulin (HCC) 02/18/2025 3:15 PM CDT Office Visit [facility] [address] [address] Anthony Castillo MD Type 2 diabetes mellitus with hyperglycemia, with long-term current use of insulin (HCC) (Primary Dx) 02/06/2025 Telephone [facility] of [address] [address] Anthony Castillo MD 02/04/2025 Telephone [facility] of [address] [address] Anthony Castillo MD certificate of [...] mouth 2 (two) times a day Active [id number] marva-minerals tablet Take 1 tablet by mouth [...] hyperglycemia, with long-term current use of insulin ([facility]) USE FOR TESTING FOUR TIMES A DAY DIRECTED 400 each 3 03/21/20 22 Active pen needle, diabetic (TRUEplus Pen Needle) 31 gauge x 3/16 needle Use to inject insulin up to 5 times daily 450 each 2 03/21/20 22 Active alcohol swabs (BD Alcohol Swabs) pads, medicatedIndicati ons:Type 2 diabetes mellitus with hyperglycemia, with long-term current use of insulin ([facility]) USE DIRECTED 4 TIMES DAILY 400 [...] 1 tablet (100 mcg total) by mouth medical asst before breakfast 90 tablet 3 08/07/20 24 Active Farxiga 10 mg tabletIndications :Type 2 diabetes mellitus with hyperglycemia, with long-term current use of insulin ([facility]) TAKE 1 TABLET BY MOUTH DAILY 100 tablet 2 09/04/19 25 Active blood-glucose sensor device Change sensors every 10 days Dx. E11.65 9 each 3 09/11/19 25 Active Ozempic 2 mg/dose (8 mg/3 mL) pen injector injectionIndicati ons:Type 2 diabetes mellitus with hyperglycemia, with long-term current use of insulin ([facility]) INJECT SUBCUTANEOUSLY 2 MG EVERY WEEK 9 [...] appearing cyst on renal bladder ultrasound at [place] dated 08/26/2022. Diabetes mellitus 02/18/2025 Overview (02/18/2025): Phreesia 06/01/2021 H/O gastric sleeve 01/09/2024 Iron deficiency anemia 08/31/2023 Stage 3b chronic kidney disease 08/31/2023 Hypertension, essential 08/31/2023 Overview (02/18/2025): Phreesia 06/01/2021 Hypomagnesemia 05/07/2023 Acquired hypothyroidism 03/17/2022 Assessment & Plan (08/07/2024 5:51 PM PRODUCTION REPAIRER): Chronic, stable. Continue levothyroxine Update TFTs Assessment & Plan (08/10/2023 3:53 PM PRODUCTION REPAIRER): Chronic, well-controlled Importance of taking levothyroxine on [...] 04/17/2018 Assessment & Plan (08/07/2024 5:51 PM PRODUCTION REPAIRER): Chronic, stable Update lipid profile Continue statin therapy Assessment & Plan (08/10/2023 3:53 PM PRODUCTION REPAIRER): Chronic, well-controlled Continue statin therapy with Pravachol Assessment & Plan (01/17/2023 1:59 PM CDT): Chronic, well controlled Low fat Low cholesterol diet Exercise Continue statin therapy with Pravachol Assessment & Plan (03/17/2022 9:47 AM CDT): Chronic problem. On statin therapy, no changes. Assessment & Plan (10/28/2021 1:21 PM PRODUCTION REPAIRER): Chronic problem. On statin therapy, no changes. [...] Pravachol Assessment & Plan (09/27/2019 9:29 AM PRODUCTION REPAIRER): LDL at goal. Trigs elevated. Continue statin [...] therapy Assessment & Plan (08/07/2018 1:59 PM PRODUCTION REPAIRER): At goal on current medications. Assessment & [...] dicussed Assessment & Plan (09/27/2019 9:29 AM PRODUCTION REPAIRER): Continues to do well with wt loss [...] adjusted. Assessment & Plan (08/07/2018 1:59 PM PRODUCTION REPAIRER): Continues to gain weight. Little attempt at diet and exercise. Reviewed importance of avoiding juice, soda, high fat, high carb foods. Assessment & Plan (10/05/2017 2:49 PM PRODUCTION REPAIRER): Diet and exercise were discussed. 1200 Calorie diet advised 45-60 min aerobic / resistance exercise most days of the week recommended. Bariatric surgery medically indicated Assessment & Plan (07/20/2017 4:17 PM PRODUCTION REPAIRER): Importance of following diet and exercising discussed. 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 Assessment & Plan (10/28/2021 1:21 PM PRODUCTION REPAIRER): Controlled on current medications, no changes. Assessment [...] microalbumin Assessment & Plan (09/27/2019 9:29 AM PRODUCTION REPAIRER): Controlled on current medications. Continue plan. Assessment & Plan (06/06/2019 2:49 PM CDT): Controlled on current medications. Continue plan. Assessment & Plan (11/01/2018 2:04 PM CDT): Goal blood pressure is less than 140/85 Low salt diet recommended Daily aerobic exercise Continue current meds, including ALYCE-I or ARB Assessment & Plan (08/07/2018 2:00 PM PRODUCTION REPAIRER): Controlled on current medications. Assessment & Plan (04/17/2018 2:07 PM CDT): Goal blood pressure is less than 140/85 Low salt diet recommended Daily aerobic exercise Continue current meds, including ALYCE-I or ARB Assessment & Plan (10/05/2017 2:50 PM PRODUCTION REPAIRER): Goal blood pressure is less than 140/85 Low salt diet recommended Daily aerobic exercise Continue current meds, including ALYCE-I or ARB Assessment & Plan (07/20/2017 4:18 PM PRODUCTION REPAIRER): Controlled on current medications. Assessment & Plan (04/06/2017 4:28 PM CDT): At goal on current medications. Hyperlipidemia 09/19/2012 Overview (11/24/2016): HYPERLIPIDEMIA NEC/NOS Assessment & Plan (06/06/2019 2:49 PM CDT): Lipid panel ordered Assessment & Plan (07/20/2017 4:18 PM PRODUCTION REPAIRER): Will check lipid panel Assessment & Plan (04/06/2017 4:28 PM CDT): Check labs and focus on low fat foods Furuncle of trunk 06/28/2012 Overview (11/23/2016): Carbuncle and furuncle of trunk Type 2 diabetes mellitus 06/28/2012 Overview (11/24/2016): DMII WO CMP UNCNTRLD Assessment & Plan (08/07/2024 5:50 PM PRODUCTION REPAIRER): Chronic, stable Diet and exercise were emphasized Continue ga and Ozempic Assessment & Plan (02/13/2024 4:29 PM CDT): Chronic, well-controlled. Continue Ozempic 2 mg weekly Farxiga 10 mg Importance of diet and exercise was discussed Assessment & Plan (08/10/2023 3:52 PM PRODUCTION REPAIRER): Chronic, well-controlled, with some postprandial hyperglycemia Continue [...] Farxita Assessment & Plan (07/19/2022 1:34 PM PRODUCTION REPAIRER): Hba1c was Lab Results Component Value Date [...] today. Assessment & Plan (10/28/2021 1:43 PM PRODUCTION REPAIRER): Chronic problem, not at goal. Increase NL [...] breakfast Assessment & Plan (09/27/2019 9:31 AM PRODUCTION REPAIRER): A1c increased to 7.8. Pattern acceptable during [...] goal hba1c is under 7.0 to prevent intermodal customer service diabetes complications ( eye , kidney and [...] discussed. Assessment & Plan (08/07/2018 2:02 PM PRODUCTION REPAIRER): A1c 8.1. Baseline BG reported at goal. [...] discussed. Assessment & Plan (10/05/2017 2:51 PM PRODUCTION REPAIRER): Hba1c was . 9.6 . today, indicating [...] discussed. Assessment & Plan (07/20/2017 4:17 PM PRODUCTION REPAIRER): A1c improved 8.7, ~ 2%. Mostly from [...] on file Legal Sex Female 10:22 AM PRODUCTION REPAIRER Gender Identity Not on file Sexual Orientation Straight 08/07/2024 2: 11 PM PRODUCTION REPAIRER Last Filed Vital Signs Vital Sign Reading [...] of insulin (HCC) DIABETES EYE EXAM Routine 02/05/2025 8:08 AM CDT from Last 3 Months Results * (ABNORMAL) eGFR (02/18/2025 4:02 PM [...] BLOOD ORDERABLES Final Resul t OLGA [address] [address] Department [place] [address] * (ABNORMAL) Albumin Creatinine Ratio, Urine (02/18/2025 4:02 PM CDT) Albumin Ur 21.3 mg/L Comment: Interpretive Data No reference range established. Current interpretive data was last revised 2019. Creatinine Ur 32.8 mg/dL OLGA Comment: Interpretive Data No reference range established. Current interpretive data was last revised 2019. Albumin Creatinine Ratio, Ur 65(H) 1 - 29 mg/g OLGA HORNER Urine 02/18/2025 4:02 PM CDT 02/18/2025 7:38 PM CDT us Anthony Castillo MD LAB URINE ORDERABLES Final Resul t OLGA [address] [address] Department [place] [address] * (ABNORMAL) Lipid panel (02/18/2025 4:02 PM [...] NCEP Expert Panel. Circulation 2004;110:227 3. Mikel Felix et al. JIM Cardiol. 2019December 19;5(5):540-548. doi: 10.1001/jamacardio.2020.0013 Current [...] [place] [address] [address] Department [place] [address] * (ABNORMAL) Comprehensive metabolic panel (02/18/2025 4:02 PM CDT) Pathologist [facility] Sodium 140 135 - 145 mmol/L Potassium, [...] BLOOD ORDERABLES Final Resul t OLGA [address] [address] [address] Department [place] [address] * (ABNORMAL) POCT hemoglobin A1c (02/18/2025 3:13 PM CDT) Hemoglobin A1C, POC 6.6(A) 4.0 - 5.6 % Comment:None Capillary blood 02/18/2025 3 :13 PM CDT Result [facility] Anthony Castillo MD POINT OF CARE TEST ORDERABLES Fi nal Result * POCT glucose (02/18/2025 3:13 PM CDT) Glucose Blood, POC 130 Normal Fasting 70 - 100, Random <200 mg/dL Comment:None Blood 02/18/2025 3:13 PM CDT Anthony Castillo MD POINT OF CARE TEST ORDERABLES Fi nal Result * (ABNORMAL) DIABETES EYE EXAM (02/05/2025 8:08 AM CDT) Historical Provider HEALTH MAINTENANCE Edited Result - Final from Last 3 Months Insurance [facility] MEDICARE ADVANTAGE [facility] MEDICARE ADVANTAGE Care Teams Network Security Engineer Relationship Specialty Start Date End Date Willian Mendoza MD PCP - General 02/18/16
--- OUTSIDE RECORDS SUMMARY | 2025-03-10 13:55 | XMS_ITS | Encounter Summary ---
Author Organization [facility] Address [facility] [place] [address] Care Team Providers Care Tile Conduit Layer Name Role Phone Alexis Thurman MD Unavailable [phone] Cee Liu APRN, NP-C Unavailable Virgilio Meehan DO Primary Care Provider [phone] Mame Osborn MD Unavailable [phone] Encounter Details Date Type Department Care Team (Late Contact Info) Description 12/21/2022 Abstract [facility] [address] [place] [address] Naheed Arzola MD [address] [place] [address] Social History Tobacco Use Types Packs/Day Years [...] 05/12/2025 1:30 PM CDT Office Visit [facility] eld [address] [place] [address] Cee Liu APRN, ANIMAL LABORATORY HELPER-C [address] [phone] documented as of this encounter Visit Diagnoses Not on filedocumented in this encounter Care Teams Tile Conduit Layer Relationship Specialty Start Date End Date Virgilio Meehan DO [address] [place] [address] PCP - General FAMILY PRACTICE 09/08/22 Alexis Thurman MD [address] [place] [address] [place] Instrumentation Fitter CARDIOVASCULAR DISEASE 09/14/18 04/01/24 Cee Liu APRN, ANIMAL LABORATORY HELPER-C [address] [address] NURSE PRACTITIONER 05/27/22 Mame Osborn MD [address] [place] [address] INTERVENTIONAL CARDIOLOGY 05/10/24 documented as of this encounter
--- OUTSIDE RECORDS SUMMARY | 2025-03-10 13:56 | XMS_ITS | Encounter Summary ---
Author Organization [facility] Healthcare Address [address] [place] [address] Care Team Providers Care Lead Loader Name Role Phone Willian Mendoza MD Primary Care Provider [phone] Encounter Details Date Type Department Care Team (Late st Contact Info) Description 03/05/2025 Orders Only [facility] Medical Group Diabetes and Endocrinology [address] [place] [phone] ProviderIsis MD [address] [place], [place] [id number] Social History Tobacco Use Types Packs/Day Years [...] on file Legal Sex Female 10:22 AM ACCOUNTANT MACHINE PROCESSING Gender Identity Not on file Sexual Orientation Straight 08/07/2024 2: 11 PM ACCOUNTANT MACHINE PROCESSING documented as of this encounter Plan of Treatment Not on file documented as of this encounter Procedures Procedure Name Priority Date/Time Associated Diagnosis Comments DIABETES EYE EXAM Routine 02/05/2025 8:08 AM CDT documented in this encounter Results * (ABNORMAL) DIABETES EYE EXAM (02/05/2025 8:08 AM CDT) us Historical Provider HEALTH MAINTENANCE Edited Result - Final documented in this encounter Visit Diagnoses Not on filedocumented in this encounter Care Teams Lead Loader Relationship Specialty Start Date End Date Willian Mendoza MD PCP - General 02/18/16 documented as of this encounter
--- OUTSIDE RECORDS SUMMARY | 2025-03-10 13:56 | XMS_ITS | Encounter Summary ---
Author Organization [facility] Address [facility] [place] [address] Care Team Providers Care Coo Name Role Phone Alexis Thurman MD Unavailable [phone] Willian Mendoza MD Primary Care Provider [phone] Cee Liu APRN, GROUP TEACHER-C Unavailable [phone] Virgilio Meehan DO Primary Care Provider [phone] Mame Osborn MD Unavailable [phone] Encounter Details Date Type Department Care Team (Late st Contact Info) Description 07/04/2022 Abstract [facility] [facility] [address] [place] [address] Alexis Thurman MD [address] [place] [phone] Social History Tobacco Use Types Packs/Day Years [...] Coronavirus/COVID-19? No / Unsure 06/29/2022 5:44 AM KAIAWHINA KURA KAUPAPA MAORI documented as of this encounter Plan of Treatment Upcoming Encounters Date Type Department Care Team (Late st Contact Info) Description 05/12/2025 1:30 PM CDT Office Visit [facility] eld [address] [place] [address] Cee Liu APRN, GROUP TEACHER-C [address] [facility] [address] [place] [address] documented as of this encounter [...] on filedocumented in this encounter Care Teams Coo Relationship Specialty Start Date End Date Willian Mendoza MD [address] [place] [address] PCP - General INTERNAL MEDICINE 09/14/18 09/07/22 Virgilio Meehan DO [address] [place] [address] PCP - General FAMILY PRACTICE 09/08/22 Alexis Thurman MD [address] [place] [address] [place] Gr[employer] Associate CARDIOVASCULAR DISEASE 09/14/18 04/01/24 Cee Liu APRN, GROUP TEACHER-C [address] [facility] [address] [place] [address] NURSE PRACTITIONER 05/27/22 Mame Osborn MD [address] [place] [address] INTERVENTIONAL CARDIOLOGY 05/10/24 documented as of this encounter
--- OUTSIDE RECORDS SUMMARY | 2025-03-10 13:56 | XMS_ITS ---
Author Organization [facility] Address [address] [place], [place] [id number] Care Team Providers Care Epic Specialist Name Role Phone MIRIAN MOSHER Unavailable [phone] Virgilio Meehan Unavailable Unavailable WILFREDO BRODERICK Unavailable [phone] REASON FOR VISIT *General care Encounters Encounter Location Date Provider Diagnosis [facility] [address], [place] [id number] 03/06/2025 WILFREDO BRODERICK Tinea unguium B35.1 ; Acquired 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 ; Atherosclerosis of [place] arteries of extremities with intermittent claudication, bilateral [...] utilizing a #15 blade 03/06/2025 Atherosclerosis of [place] salish arteries of extremities with intermittent claudication, bilateral [...] pared utilizing a #15 blade Atherosclerosis of [place]ederated salish ar teries of extremities with intermittent claudication, [...] sooner if problems develop. Provider Name:WILFREDO MARTIN, 05/08/2025 01:50:00 PM, [address] [place] [address], [id number], Progress Notes * MATEUSZ MONROE ADOB:[birth year] (59 yo F)Acc No.[id number]:03/06/2025 Patient: Zay KUHNSALVATOREDIVYAI A Provider: Gavi BRODERICK :1965 A ge:59 Y S ex:Female Date:03/06/2025 Address:[address] [place], [place] [id number] Subjective: * Chief Complaints: * 1 . *General care. * ROS: G eneral / Constitutional: Patient [...] confusion, difficulty speaking, dizziness. * Medical History: Objective: * Vitals: * Examination: P hysical [...] - L85.1 3 . A therosclerosis of confed[place] salish arteries of extremities with intermittent claudication, bilateral [...] a #15 blade 3. A therosclerosis of [place]ederated sal[place] arteries of extremities with intermittent claudication, bilateral [...] develop.) * Billing Information: * Visit Code: * Procedure Codes: * Electronic signature of KINA BRODERICK DPM on 03/10/2025 at 01:55 PM CDT Sign off status: Pending * Provider: Gavi BRODERICK Date: 03/06/2025 Generated for Curt small/Ana Maria/Jose on: 03/10/2025 01:55 PM CDT History and Physical Notes * Examination Category [...]
--- OUTSIDE RECORDS SUMMARY | 2025-03-10 13:56 | XMS_ITS | Encounter Summary ---
Author Organization [facility] Address [address] [place] [address] Care Team Providers Care Neighborhood Planner Name Role Phone Willian Mendoza MD Primary Care Provider [phone] Encounter Details Date Type Department Care Team (Latest Contact Info) Description 02/27/2025 Results Follow-Up [facility] [address] [place] [address] [place] [id number] [place] [address] [address], [place] [id number] Comprehensive metabolic panel Social History Tobacco Use [...] on file Legal Sex Female 10:22 AM SAFETY COMPLIANCE SPECIALIST Gender Identity Not on file Sexual Orientation Straight 08/07/2024 2: 11 PM SAFETY COMPLIANCE SPECIALIST documented as of this encounter Plan of Treatment Not on file documented as of this encounter Visit Diagnoses Not on filedocumented in this encounter Care Teams Neighborhood Planner Relationship Specialty Start Date End Date Willian Mendoza MD PCP - General 02/18/16 documented as of this encounter
--- OUTSIDE RECORDS SUMMARY | 2025-03-10 13:56 | XMS_ITS | Encounter Summary ---
Author Organization [facility] Address [facility], [address] [place] [address] Care Team Providers Care Anatomy Professor Name Role Phone Alexis Thurman MD Unavailable [phone] Willian Mendoza MD Primary Care Provider [phone] Cee Liu APRN, MEDICAL LAB ASSISTANT-C Unavailable Virgilio Meehan DO Primary Care Provider [phone] Mame Osborn MD Unavailable [phone] Encounter Details Date Type Department Care Team (Late st Contact Info) Description 06/24/2022 Hospital Orders Only [place] [facility] Pre[facility]Post [address] [place] [address] Alexis Thurman MD [address] [place] [address] Social History Tobacco Use Types [...] Description 05/12/2025 1:30 PM CDT Office Visit [facility] el [address] [place] [address] Cee Liu APRN, MEDICAL LAB ASSISTANT-C [address] [facility] [address] [phone] documented as of this encounter Visit Diagnoses Not on filedocumented in this encounter Care Teams Anatomy Professor Relationship Specialty Start Date End Date Willian Mendoza MD [address] [place] [address] PCP - General INTERNAL MEDICINE 09/14/18 09/07/22 Virgilio Meehan DO [address] [place] [address] PCP - General FAMILY PRACTICE 09/08/22 Alexis Thurman MD [address] [place] [address] [place] Lead Installer CARDIOVASCULAR DISEASE 09/14/18 04/01/24 Cee Liu APRN, MEDICAL LAB ASSISTANT-C [address] [phone] NURSE PRACTITIONER 05/27/22 Mame Osborn MD [address] [place], [place] [id number] INTERVENTIONAL CARDIOLOGY 05/10/24 documented as of this encounter
--- OUTSIDE RECORDS SUMMARY | 2025-03-10 13:56 | XMS_ITS | Clinical Summary ---
Author Organization [facility] Address [facility] [place] [address] Care Team Providers Care Lodge Sales Associate Name Role Phone Cee Liu APRN APPLICATIONS DEVELOPER-C Unavailable Virgilio Meehan DO Primary Care Provider [phone] Mame Osborn MD Unavailable Allergies Active Allergy Reactions Criticality Noted Date Comments Amoxicillin-Pot Clavulanate Diarrhea 05/27/2022 Metformin Other (see comment) 05/27/2022 Renal function impairment Pantoprazole Other (see comment) 05/27/2022 Hypomagnesemia Medications CPAP DME DEVICE CPAPCPAP [id number] via IV [id number] -[id number] -2018Lefty Morrissey 8 Active pravastatin (PRAVACHOL) 20 [...] mouth 2 (two) times daily. Active CREON 46132-112358 units capsule Take 2 capsules (72,000 units [...] check lipid panel Hypertension associated with diabetes ([facility] [place] [facility]) 09/19/2012 Overview (10/22/2018): Overview: Unspecified essential hypertension Last Assessment & Plan: Controlled on current medications. Type 2 diabetes mellitus ([facility]) 06/28 Overview (10/22/2018): [...] 36.2 C (97.2 F) 06/29/2022 6:18 AM PATTERNMAKER WOOD Respiratory Rate 16 05/10/2024 12:4 0 PM CDT Oxygen Saturation 100% 11/02/2023 2:52 PM CDT Inhaled Oxygen Concentration - - Weight 104.9 kg (231 lb 3.2 oz) 025 10:46 AM CDT Height 170.2 cm (5' 7) 11/04/2024 10:4 6 AM CDT Body Mass Index 36.21 11/04/2024 10:46 AM CDT Plan of Treatment Upcoming Encounters Date Type Department Care Team ([facility] st Contact Info) Description 05/12/2025 1:30 PM CDT Office Visit [facility] eld [address] [place] [address] Cee Liu, ANGEL, APPLICATIONS DEVELOPER-C [address] [facility] [address] [place] [address] Health Maintenance Due Date Last Done Comments [...] this topic Medical Devices Implanted Type Area Research Development Director Device Identifier Shelf Expiration Date Model / Serial / Lot Stent Ureteral [place] Sci Contour 6fr X 26cm - [id number] Implanted:Qty : 1 on 06/28/2021 by Ryan Vinson MD at [facility] Stent Right: Ureter [employer] MASOOD [id number] 04/12/2024 [id number] 30 / / [id number] Procedures Procedure Name Priority Date/Time Associated Diagnosis Comments LIPID PANEL Routine 07/23/2009 12:00 AM PATTERNMAKER WOOD from Last 3 Months or Most Recently Relevant to Health Maintenance Results * LIPID PANEL (07/23/2009 12:00 AM PATTERNMAKER WOOD) TRIGLYCERIDES 132 0 - 150 mg/dl MEDINFORMATIX TO EPIC CONVERSION CHOLESTEROL 180 0 - 200 mg/dl MEDINFORMATIX TO EPIC CONVERSION HDL 61 40 - 59 mg/dl MEDINFORMATIX TO EPIC CONVERSION LDL CONVERSION 93 0 - 100 mg/dl MEDINFORMATIX TO EPIC CONVERSION CHOL/HDL RATIO 3.0 <4.0 (Calc) MEDINFORMATIX TO EPIC CONVERSION 07/23/2009 07/23/2009 Narrative MEDINFORMATIX TO EPIC CONVERSION - 07/23/2009 1:31 PM PATTERNMAKER WOOD Reviewed by ANGELA Jul 23 2009 1:33:00:000PM us Generic Conversion Md [facility] Final R esult MEDINFORMATIX TO EPIC CONVERSION from Last 3 Months or Most Recently Relevant to Health Maintenance Insurance MEDICAID Member Subscriber Plan / Payer (Ef fective 2018-Present) Name:Keri Stone Ann Relation to Subscriber:Self Name:Keri Stone Ann Payer ID:Not on file Group ID:Not on file Type:Not on file Address: [address] MEDICAID Member Subscriber Plan / Payer ( fective 2018-Present) Name:Keri Stone Ann Relation to Subscriber:Self Name:Keri Stone Ann Payer ID:Not on file Group ID:Not on file Type:Not on file Address: [address] MEDICAID Advance Directives * Full Code (Latest Code Status on File) Date Activated Date Inactivated Comments 06/29/2022 9:52 AM 06/29/2022 1:43 PM Care Teams Lodge Sales Associate Relationship Specialty Start Date End Date Virgilio Meehan DO [address] [place] [address] PCP - General FAMILY PRACTICE 09/08/22 Cee Liu APRN, APPLICATIONS DEVELOPER-C [address] [facility] [address] [place] [address] NURSE PRACTITIONER 05/27/22 Mame sOborn MD [address] [place] [address] INTERVENTIONAL CARDIOLOGY 05/10/24
--- OUTSIDE RECORDS SUMMARY | 2025-03-10 13:56 | XMS_ITS | Encounter Summary ---
Author Organization [facility] Address [facility] [place] [address] Care Team Providers Care Invoice Control Clerk Name Role Phone Cee Liu APRN, SET KEY DRIVER-C Unavailable Virgilio Meehan DO Primary Care Provider [phone] Mame Osborn MD Unavailable [phone] Encounter Details Date Type Department Care Team (Late Contact Info) Description 11/12/2024 Abstract [facility] [address] [place] [address] Ella Witt MD [address] [place] [address] Social History Tobacco Use Types Packs/Day Years [...] Description 05/12/2025 1:30 PM CDT Office Visit [facility] eld [address] [place] [address] Cee Liu APRN, SET KEY DRIVER-C [address] [facility] [address] [place] [address] documented as of this encounter Visit Diagnoses Not on filedocumented in this encounter Care Teams Invoice Control Clerk Relationship Specialty Start Date End Date Virgilio Meehan DO [address] [place] [address] PCP - General FAMILY PRACTICE 09/08/22 Cee Liu, DESKTOP ANALYST, SET KEY DRIVER-C [address] [facility] [address] [place] [address] NURSE PRACTITIONER 05/27/22 Mame Osborn MD [address] [place] [address] INTERVENTIONAL CARDIOLOGY 05/10/24 documented as of this encounter
--- OUTSIDE RECORDS SUMMARY | 2025-03-10 13:56 | XMS_ITS | Encounter Summary ---
Author Organization [facility] Address [facility] [place] [address] Care Team Providers Care Retail Representative Name Role Phone Alexis Thurman MD Unavailable [phone] Willian Mendoza MD Primary Care Provider [phone] Cee Liu APRN, GYNECOLOGICAL ASSISTANT-C Unavailable Virgilio Meehan DO Primary Care Provider [phone] Mame Osborn MD Unavailable [phone] Encounter Details Date Type Department Care Team (Late st Contact Info) Description 11/04/2017 Abstract [facility] [address] [place] [address] , Generic ConversionMD Social History Tobacco Use [...] Description 05/12/2025 1:30 PM CDT Office Visit [facility] eld [address] [place] [address] Cee Liu, ANGEL, GYNECOLOGICAL ASSISTANT-C [address] [facility] [address] [place] [address] documented as of this encounter Visit Diagnoses Not on filedocumented in this encounter Care Teams Retail Representative Relationship Specialty Start Date End Date Willian Mendoza MD [address] [place] [address] PCP - General INTERNAL MEDICINE 09/14/18 09/07/22 Virgilio Meehan DO [address] [place] [address] PCP - General FAMILY PRACTICE 09/08/22 Alexis Thurman MD [address] [place] [address] [place] [employer] Cnc Operator CARDIOVASCULAR DISEASE 09/14/18 04/01/24 Cee Liu, RAILROAD OPERATING ENGINEER, GYNECOLOGICAL ASSISTANT-C [address] [facility] [address] [place] [address] NURSE PRACTITIONER 05/27/22 Mame Osborn MD [address] [place] [address] INTERVENTIONAL CARDIOLOGY 05/10/24 documented as of this encounter
--- OUTSIDE RECORDS SUMMARY | 2025-03-10 13:56 | XMS_ITS | Clinical Summary ---
Author Organization [facility] Address [address] [place] [id number] Care Team Providers Care Hypercil Core Transformer Assembler Name Role Phone Willian Mendoza MD Primary Care Provider [phone] Allergies Active Allergy Reactions Criticality Noted Date [...] mouth 2 (two) times a day Active pgkvyceqtyhm-[id number] marva-minerals tablet Take 1 tablet by mouth [...] long-term current use of insulin ([facility]) USE FOR TESTING FOUR TIMES A DAY DIRECTED 400 each 3 03/21/20 22 Active pen needle, diabetic (TRUEplus Pen Needle) 31 gauge x 3/16 needle Use to inject insulin up to 5 times daily 450 each 2 03/21/20 22 Active alcohol swabs (BD Alcohol Swabs) pads, medicatedIndicati ons:Type 2 diabetes mellitus with hyperglycemia, with long-term current use of insulin ([facility]) USE DIRECTED 4 TIMES DAILY 400 [...] 1 tablet (100 mcg total) by mouth machine boss before breakfast 90 tablet 3 08/07/20 24 Active Farxiga 10 mg tabletIndications :Type 2 diabetes mellitus with hyperglycemia, with long-term current use of insulin ([facility]) TAKE 1 TABLET BY MOUTH DAILY [...] appearing cyst on renal bladder ultrasound at [facility] dated 08/26/2022. Diabetes mellitus 02/18/2025 Overview (02/18/2025): Phreesia 06/01/2021 H/O gastric sleeve 01/09/2024 Iron deficiency anemia 08/31/2023 Stage 3b chronic kidney disease 08/31/2023 Hypertension, essential 08/31/2023 Overview (02/18/2025): Phreesia 06/01/2021 Hypomagnesemia 05/07/2023 Acquired hypothyroidism 03/17/2022 Assessment & Plan (08/07/2024 5:51 PM DIRECTOR OF PHYSICAL THERAPY): Chronic, stable. Continue levothyroxine Update TFTs Assessment & Plan (08/10/2023 3:53 PM DIRECTOR OF PHYSICAL THERAPY): Chronic, well-controlled Importance of taking levothyroxine on [...] 04/17/2018 Assessment & Plan (08/07/2024 5:51 PM DIRECTOR OF PHYSICAL THERAPY): Chronic, stable Update lipid profile Continue statin therapy Assessment & Plan (08/10/2023 3:53 PM DIRECTOR OF PHYSICAL THERAPY): Chronic, well-controlled Continue statin therapy with Pravachol Assessment & Plan (01/17/2023 1:59 PM CDT): Chronic, well controlled Low fat Low cholesterol diet Exercise Continue statin therapy with Pravachol Assessment & Plan (03/17/2022 9:47 AM CDT): Chronic problem. On statin therapy, no changes. Assessment & Plan (10/28/2021 1:21 PM DIRECTOR OF PHYSICAL THERAPY): Chronic problem. On statin therapy, no changes. [...] Pravachol Assessment & Plan (09/27/2019 9:29 AM DIRECTOR OF PHYSICAL THERAPY): LDL at goal. Trigs elevated. Continue statin [...] therapy Assessment & Plan (08/07/2018 1:59 PM DIRECTOR OF PHYSICAL THERAPY): At goal on current medications. Assessment & [...] dicussed Assessment & Plan (09/27/2019 9:29 AM DIRECTOR OF PHYSICAL THERAPY): Continues to do well with wt loss [...] adjusted. Assessment & Plan (08/07/2018 1:59 PM DIRECTOR OF PHYSICAL THERAPY): Continues to gain weight. Little attempt at diet and exercise. Reviewed importance of avoiding juice, soda, high fat, high carb foods. Assessment & Plan (10/05/2017 2:49 PM DIRECTOR OF PHYSICAL THERAPY): Diet and exercise were discussed. 1200 Calorie diet advised 45-60 min aerobic / resistance exercise most days of the week recommended. Bariatric surgery medically indicated Assessment & Plan (07/20/2017 4:17 PM DIRECTOR OF PHYSICAL THERAPY): Importance of following diet and exercising discussed. [...] Overview (02/18/2025): Congenital anomaly;Recorded Elsewhere: No Location: [facility] Source: EHR Chronic: N Practice [...] changes. Assessment & Plan (10/28/2021 1:21 PM DIRECTOR OF PHYSICAL THERAPY): Controlled on current medications, no changes. Assessment [...] microalbumin Assessment & Plan (09/27/2019 9:29 AM DIRECTOR OF PHYSICAL THERAPY): Controlled on current medications. Continue plan. Assessment & Plan (06/06/2019 2:49 PM CDT): Controlled on current medications. Continue plan. Assessment & Plan (11/01/2018 2:04 PM CDT): Goal blood pressure is less than 140/85 Low salt diet recommended Daily aerobic exercise Continue current meds, including ALYCE-I or ARB Assessment & Plan (08/07/2018 2:00 PM DIRECTOR OF PHYSICAL THERAPY): Controlled on current medications. Assessment & Plan (04/17/2018 2:07 PM CDT): Goal blood pressure is less than 140/85 Low salt diet recommended Daily aerobic exercise Continue current meds, including ALYCE-I or ARB Assessment & Plan (10/05/2017 2:50 PM DIRECTOR OF PHYSICAL THERAPY): Goal blood pressure is less than 140/85 Low salt diet recommended Daily aerobic exercise Continue current meds, including ALYCE-I or ARB Assessment & Plan (07/20/2017 4:18 PM DIRECTOR OF PHYSICAL THERAPY): Controlled on current medications. Assessment & Plan (04/06/2017 4:28 PM CDT): At goal on current medications. Hyperlipidemia 09/19/2012 Overview (11/24/2016): HYPERLIPIDEMIA NEC/NOS Assessment & Plan (06/06/2019 2:49 PM CDT): Lipid panel ordered Assessment & Plan (07/20/2017 4:18 PM DIRECTOR OF PHYSICAL THERAPY): Will check lipid panel Assessment & Plan (04/06/2017 4:28 PM CDT): Check labs and focus on low fat foods Furuncle of trunk 06/28/2012 Overview (11/23/2016): Carbuncle and furuncle of trunk Type 2 diabetes mellitus 06/28/2012 Overview (11/24/2016): DMII WO CMP UNCNTRLD Assessment & Plan (08/07/2024 5:50 PM DIRECTOR OF PHYSICAL THERAPY): Chronic, stable Diet and exercise were emphasized Continue Farxiga and Ozempic Assessment & Plan (02/13/2024 4:29 PM CDT): Chronic, well-controlled. Continue Ozempic 2 mg weekly Farxiga 10 mg Importance of diet and exercise was discussed Assessment & Plan (08/10/2023 3:52 PM DIRECTOR OF PHYSICAL THERAPY): Chronic, well-controlled, with some postprandial hyperglycemia Continue [...] Farxita Assessment & Plan (07/19/2022 1:34 PM DIRECTOR OF PHYSICAL THERAPY): Hba1c was Lab Results Component Value Date [...] today. Assessment & Plan (10/28/2021 1:43 PM DIRECTOR OF PHYSICAL THERAPY): Chronic problem, not at goal. Increase NL [...] breakfast Assessment & Plan (09/27/2019 9:31 AM DIRECTOR OF PHYSICAL THERAPY): A1c increased to 7.8. Pattern acceptable during [...] goal hba1c is under 7.0 to prevent termite inspector diabetes complications ( eye , kidney and [...] discussed. Assessment & Plan (08/07/2018 2:02 PM DIRECTOR OF PHYSICAL THERAPY): A1c 8.1. Baseline BG reported at goal. [...] discussed. Assessment & Plan (10/05/2017 2:51 PM DIRECTOR OF PHYSICAL THERAPY): Hba1c was . 9.6 . today, indicating [...] discussed. Assessment & Plan (07/20/2017 4:17 PM DIRECTOR OF PHYSICAL THERAPY): A1c improved 8.7, ~ 2%. Mostly from [...] Department Care Team Description 03/05/2025 Orders Only [facility] Diabetes and Endocrinology [address] [place] [phone] Isis Salgado MD 02/27/2025 Results Follow-Up [facility] [address] [address] Anthony Castillo MD Comprehensive metabolic panel 02/27/2025 Telephone [facility] [address] [address] Anthony Castillo MD 02/25/2025 Telephone [facility] [address] [address] Anthony Castillo MD MED Supply 02/18/2025 3:40 PM CDT Lab [address] [address] Type 2 diabetes mellitus with hyperglycemia, with long-term current use of insulin (HCC) 02/18/2025 3:15 PM CDT Office Visit [facility] [address] [address] Anthony Castillo MD Type 2 diabetes mellitus with hyperglycemia, with long-term current use of insulin (HCC) (Primary Dx) 02/06/2025 Telephone [facility] [address] [address] Anthony Castillo MD 02/04/2025 Telephone [facility] [address] [address] Anthony Castillo MD certificate of [...] SURGERY 08/21/2018 - 08/20/2019 Gastric sleeve at [facility] Medical History Medical History Date Comments Hyperlipidemia Hyperlipidemia Hx Other Medical atrophic uterus Hx Other Medical hidradenitis shell ppurative Hx Other Medical congenital uter ine atrophy Hypertension Hypertension Hx Other Medical Claustrophobic; Comments: [facility] 04/15/2014 - Anemia Anemia Hx Other Medical [...] file Legal Sex Female 10:22 AM DIRECTOR OF PHYSICAL THERAPY Gender Identity Not on file Sexual Orientation Straight 08/07/2024 2: 11 PM DIRECTOR OF PHYSICAL THERAPY Obstetrics History Last Filed Vital Signs Vital [...] 05/28/2020, Additional history exists Influenza Vaccine (#1) 2025 9, 05/17/2018, 04/20/2017, Additional history exists Depression Screening 08/07/2025 08/07/2024, 02/13/2024, 01/17/2023, Additional history exists Hemoglobin A1C 08/21/2025 02/18/2025, 07/21, 02/13/2024, Additional history exists Dilated Eye Exam 02/05/2026 02/05/2025, , 03/09/2022, Additional history exists Albumin Creatinine Ratio, Urine [...] long-term current use of insulin ([facility]) DIABETES EYE EXAM Routine 02/05/2025 8:08 AM CDT from Last 3 Months Results * (ABNORMAL) eGFR (02/18/2025 4:02 PM CDT) [facility] eGFR 54(L) >=60 mL/min/1. 73 m2 Comment: [...] ORDERABLES Final Resul t Performing Organization Address [facility] de Phone Number OLGA [address] [place] [address] * (ABNORMAL) Albumin Creatinine Ratio, Urine (02/18/2025 [...] 7:38 PM CDT Anthony Castillo MD LAB URINE ORDERABLES Final Resul t Performing Organization Address [facility] de Phone Number OLGA [address] Department [place] [address] * (ABNORMAL) Lipid panel (02/18/2025 4:02 PM [...] 3. Mikel Felix et al. JIM Cardiol. 2020 December 19;5(5):540-548. [...] LAB [place]LES [place] [address] [address] Department [place] [address] * (ABNORMAL) Comprehensive metabolic panel (02/18/2025 4:02 [...] BLOOD ORDERABLES Final Resul t OLGA [address] [place] [address] * (ABNORMAL) POCT hemoglobin A1c [...] DIABETES EYE EXAM (02/05/2025 8:08 AM CDT) Isis Salgado MD HEALTH MAINTENANCE Edited Result - Final from Last 3 Months Insurance [facility] MEDICARE ADVANTAGE [facility] MEDICARE ADVANTAGE Care Teams Hypercil Core Transformer Assembler Relationship Specialty Start Date End Date Willian Mendoza MD PCP - General 02/18/16
--- OUTSIDE RECORDS SUMMARY | 2025-03-10 13:56 | XMS_ITS | Continuity of Care Document ---
Author Organization [facility] Address [address] [facility] [address] [place] [address] Phone Care Team Providers Care Skull Grinder Name Role Phone Nilson Vaughan Unavailable Unavailable [...] Diagnoses Date Provider Providers Copied on Encounter [facility], [address], [place], [place], [id number], [place] tel:[phone] [facility] No Information Clement Devine. [address] [place], [address], [place]. tel:[phone] Referring Provider: Nilson Stewart, [address] [place], [address]. tel:[phone] [facility], [address], [place], [place], [id number], [place] tel:[phone] [facility] No Information Clement Devine. [address] [place], [address], [place]. tel:[phone] Referring Provider: Nilson Stewart, [address] [place], [address]. tel:[phone] [facility], [address], [place], [place], [id number], [place] tel:[phone] [facility] No Information Clement Devine. [address] [place], [address], [place]. tel:[phone] Referring Provider: Nilson Stewart, [address] [place], [address]. tel:[phone] [facility], [address], [place], [place], [id number], [place] tel:[phone] [facility] No Information Clement Devine. [address] [place], [address], [place]. [phone] Referring Provider: Nilson Stewart, [address] [place], [address]. tel:[phone] [facility], [address], [place], [place], [id number], [place] tel:[phone] [facility] No Information Clement Devine. [address] [place], [address], [place]. tel:[phone] [facility], [address], [place], [place], [id number], [place] tel:[phone] [facility] No Information Clement Devine. [address] [place], [address], [place]. tel:[phone] Referring Provider: Nilson Stewart, [address] [place], [address]. tel:[phone] Office/outpat ient Visit, [facility], [address], [place], [place], [id number], [place] tel:[phone] [facility] No Information Clement Devine. [address] [place], [address], [place]. tel:[phone] Family History Family Member Type Diagnosis Age At Onset No Information Payers Payer name Insurance type Covered constitution party ID Authorshiloha tiisaiah(s) Medicaid [facility] [id number] Social History Type Description Quantity Date Captured [...]
--- OUTSIDE RECORDS SUMMARY | 2025-03-10 13:56 | XMS_ITS | Patient Health Record ---
Author Organization [facility] Address [address] [place], [place] [id number] Care Team Providers Care Security Incident Handler Name Role Phone MIRIAN MOSHER Unavailable [phone] Virgilio Meehan Unavailable Unavailable ADRIEN CONTRERAS Unavailable [phone] WILFREDO BRODERICK Unavailable [phone] Allergies No Known Allergies Reason For Referral No Information Medications Medication SIG (Take, Route, Frequency, Duration) Notes Start Date End Date Status Nabumetone 500 MG Oral Tablet ORAL nabumetone 500 MG Oral TabletOriginal Medicationnabumetone 500 MG Oral Tablet *Reorder from [employer] for eRx and Interaction Alerts* 06/29/20 12 Active verapamil hydrochloride 40 MG Oral Tablet ORAL verapamil hydrochloride 40 M G Oral TabletOriginal Medicationverapamil hydrochloride 40 MG Oral Tablet *Reorder from [employer] for eRx and Interaction Alerts* 04/07/20 14 Active Pravastatin Sodium 10 MG Oral Tablet ORAL pravastatin sodium 10 MG Ora l TabletOriginal Medicationpravastatin sodium 10 MG Oral Tablet *Reorder from [email or web address] for eRx and Interaction Alerts* 04/07/20 14 Active Losartan Potassium 100 MG Oral Tablet ORAL losartan potassium 100 MG Oral TabletOriginal Medicationlosartan potassium 100 MG Oral Tablet *Reorder from [email or web address] for eRx and Interaction Alerts* 04/07/20 14 Active 3 ML insulin glargine 100 UNT/ML Pen Injector [Lantus] 3 ML insulin glargine 100 UNT/ML Pen Injector [Lantus]Original Medication3 ML insulin glargine 100 UNT/ML Pen Injector [Lantus] *Reorder from [employer] for eRx and Interaction Alerts* 04/07/20 14 Active propranolol hydrochloride 40 MG Oral Tablet ORAL propranolol hydrochloride 40 MG Oral TabletOriginal Medicationpropranolol hydrochloride 40 MG Oral Tablet *Reorder from [facility] for eRx and Interaction Alerts* 04/07/20 14 Active levothyroxine sodium 0.1 MG Oral Capsule ORAL levothyroxine sodium 0.1 MG Oral CapsuleOriginal Medicationlevothyroxine sodium 0.1 MG Oral Capsule *Reorder from [facility] for eRx and Interaction Alerts* 04/07/20 14 Active Allopurinol 300 MG Oral Tablet ORAL allopurinol 300 MG Oral TabletOriginal Medicationallopurinol 300 MG Oral Tablet *Reorder from [email or web address] for eRx and Interaction Alerts* 04/07/20 14 Active nortriptyline 50 MG Oral Capsule ORAL nortriptyline 50 MG Oral CapsuleOriginal Medicationnortriptyline 50 MG Oral Capsule *Reorder from [facility] for eRx and Interaction Alerts* 04/07/20 14 Active Spironolactone 25 MG Oral Tablet ORAL spironolactone 25 MG Oral TabletOriginal Medicationspironolactone 25 MG Oral Tablet *Reorder from [email or web address] for eRx and Interaction Alerts* 04/07/20 14 Active cholecalciferol 0.025 MG Oral Capsule ORAL cholecalciferol 0.025 MG Ora l CapsuleOriginal Medicationcholecalciferol 0.025 MG Oral Capsule *Reorder from [email or web address] for eRx and Interaction Alerts* 04/07/20 14 Active ciclopirox 80 MG/ML Topical Solution CUTANEOUS ciclopirox 80 MG/ML Topical SolutionOriginal Medicationciclopirox 80 MG/ML Topical Solution *Reorder from [email or web address] for eRx and Interaction Alerts* 04/20/20 12 Active cinnamon bark 500 MG Oral Capsule ORAL cinnamon bark 500 MG Oral CapsuleOriginal Medicationcinnamon bark 500 MG Oral Capsule *Reorder from [email or web address] for eRx and Interaction Alerts* 04/07/20 14 Active esomeprazole 20 MG Injection INTRAVENOUS esomeprazole 20 MG InjectionOriginal Medicationesomeprazole 20 MG Injection *Reorder from [email or web address] for eRx and Interaction Alerts* 04/07/20 14 Active Immunizations Vaccine Route Administration Date Status Comme nts DTP Unknown 04/10/1968 Administered DTP Unknown 05/08/1968 Administered DTP Unknown 06/05/1968 Administered DTP Unknown 11/07/1969 Administered Hep A, Adult Unknown 07/25/2006 Administered Influenza (split), 3 yrs and above Unknown 05/15/2013 A dministered Influenza (split), 3 yrs and above Unknown 04/02/2015 A dministered Influenza (split), seasonal, intradermal, preservative free Unknown 05/02/2012 Administered Influenza, quadrivalent, spl it virus Unknown 05/23/2014 Administered Influenza, quadrivalent, spl it virus Unknown 04/20/2017 Administered Influenza, quadrivalent, spl it, preservative free, 3 years or older Unknown 05/04/2016 Administered Influenza, quadrivalent, spl it, preservative free, 3 years or older Unknown 05/17/2018 Administered Influenza, quadrivalent, spl it, preservative free, 3 years or older Unknown 05/13/2019 Administered Influenza, unspecified formulation Unknown 06/30/2023 A dministered Measles Unknown 12/02/1968 Administered MMR Unknown 01/25/1991 Administered Mumps Unknown 02/04/1969 Administered Pneumococcal polysaccharide PPV23 Unknown 04/02/2015 Ad ministered Td (adult), adsorbed Unknown 07/25/2006 Administered Tdap Unknown 04/23/2017 Administered Vital Signs Height-cm 170.18 cm 03/06/2025 Weight-kg 113.85 kg 03/06/2025 Height 67.00 in 03/06/2025 Weight 251 lbs 03/06/2025 BMI 39.31 kg/m2 03/06/2025 Encounters Encounter Location Date Provider Diagnosis [address] [id number] 01/02/2025 WILFREDO BRODERICK Tinea unguium B35.1 ; Acquired 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 ; Atherosclerosis of [place] arteries of extremities with intermittent claudication, bilateral legs I70.213 ; Pain in right foot M79.671 and Pain in left foot M79.[address] [id number] 03/06/2025 WILFREDO [facility] [address] [place] [id number] 04/11/2024 ADRIEN CONTRERAS Unspecified atherosclerosis of [place] arteries of extremities, bilateral legs I70.203 ; Tinea unguium B35.1 ; Pain in left toe(s) M79.675 ; Other hammer toe(s) (acquired), right foot M20.41 ; Other hammer toe(s) (acquired), left foot M20.42 ; Pain in right toe(s) M79.674 and Acquired 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 [id number] 10/10/2024 MIRIAN SNOOK Tinea unguium B35.1 ; Acquired 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 ; Atherosclerosis of [place] arteries of extremities with intermittent claudication, bilateral legs I70.213 ; Pain in right foot M79.671 and Pain in left foot M79.672 [facility] [address] [place] [place], [place] [id number] 12/09/2024 MIRIAN SNAYLAK [facility] [address] [place] [place], [place] [id number] 01/29/2025 MIRIAN SNOOK Assessments Encounter Date Diagnosis (ICD Code) Assessment [...] and prescription treatments. 04/11/2024 Unspecified atherosclerosis of [place] arteries [...] utilizing a #15 blade 01/02/2025 Atherosclerosis of [place] arteries of extremities with intermittent claudication, bilateral legs (ICD-10 - I70.213) Check and protect LE bilateral daily. Call if any changes or concerns. 10/10/2024 Atherosclerosis of [place] arteries of extremities with intermittent claudication, bilateral [...] Details Provider Name:WILFREDO MARTIN, 05/08/2025 01:50:00 PM, [address] [place] [address], [phone], Insurance Providers Payer Name Payer Address Payer Phone Subscriber Number Group Number Insured Name Patient Relationship to Insured Coverage Start Date Coverage End Date [facility] [address] [address] [place] [address] [id number] MATEUSZ MONROE Self - patient is the insured Medical (General) History Medical History History ICD Code Diabetic
[2025-03-10 14:05] LABS: Hematocrit 35.5 % (35.0-49.0); Hemoglobin 11.3 g/dL (12.0-15.0); Mean Corpuscular HGB Conc 31.8 g/dL (32-36); Mean Corpuscular Hemoglobin 29.4 pg (27.0-31.0); Mean Corpuscular Volume 92.2 fL (78.0-102.0); Platelet Count Result 232 K/mm3 (150-420); Red Blood Count 3.85 M/mm3 (4.20-5.40); White Blood Count 10.7 K/mm3 (4.8-10.8)
[2025-03-10 14:18] LABS: Total Protein Urine Random 11 mg/dL; Ur Ttl Prot Creatinine Ratio 0.15 mg/mg (0-0.20)
[2025-03-10 14:24] LABS: Albumin Level 3.9 g/dL (3.5-5.1); Anion Gap 3 mmol/L (4-12); Blood Urea Nitrogen 44 mg/dL (7-17); Calcium 9.4 mg/dL (8.4-10.2); Carbon Dioxide 27 mmol/L (22-30); Chloride 107 mmol/L (98-107); Estimated Glomerular Filt Rate 39; Glucose 93 mg/dL (65-110); Osmolality Calculated 295 mOsm/kg (285-295); Sodium 137 mmol/L (137-145)
[2025-03-10 14:42] LABS: Potassium 4.1 mmol/L (3.4-5.0)
[2025-03-10 15:03] LABS: Alanine Aminotransferase 17 U/L (6-35); Albumin Level 3.9 g/dL (3.5-5.1); Alkaline Phosphatase 62 U/L (38-126); Anion Gap 8 mmol/L (4-12); Aspartate Amino Transferase 32 U/L (14-36); Bilirubin,Total 0.7 mg/dL (0.2-1.3); Blood Urea Nitrogen 45 mg/dL (7-17); Calcium 9.3 mg/dL (8.4-10.2); Carbon Dioxide 24 mmol/L (22-30); Chloride 107 mmol/L (98-107); Estimated Glomerular Filt Rate 40; Glucose 93 mg/dL (65-110); Osmolality Calculated 299 mOsm/kg (285-295); Potassium 4.4 mmol/L (3.4-5.0); Sodium 139 mmol/L (137-145); Total Protein 6.3 g/dL (6.3-8.2)
[2025-03-10 15:04] LABS: Magnesium 1.5 mg/dL (1.6-2.3)
[2025-03-10 16:35] LABS: Add Urine Microscopic? NO; Appearance Urine Clear (Clear); Glucose Urine UA 2+ (Negative); Leukocyte Esterase Ur Negative (Negative); Nitrate Urine Negative (Negative); Specific Grav Ur 1.015 (1.010-1.020)
== END 2025-03-10 13:45 | disposition home or self-care (01) ==
LOC: CHSLAB 13:50
PROVIDERS: Nurse Practitioner Family; PCP Family Medicine
DX: R74.01 Elevation of levels of liver transaminase levels (principal); N18.32 Chronic kidney disease, stage 3b
CPT/HCPCS: 36415; 80053; 80069; 81003; 82570; 83735; 83970; 84156; 85027

== ENCOUNTER 2025-03-20 09:14 | Outpatient (CLI) | payer MEDICARE, MEDICAID, SELFPAY ==
--- NOTE | ~2025-03-20 | MR_ITS ---
MRI of the right foot Clinical history: Pain TECHNIQUE: Axial proton-density and proton-density fat-sat images, sagittal T1-weighted and STIR imag es, and coronal T1-weighted and proton-density fat-sat images were performed. FINDINGS: No fracture or bone marrow edema seen. Bone marrow signals are unremarkable. Joint spaces a re essentially unremarkable aside from mild degenerative change at the fifth TMT joint. No significan t joint effusion identified. There is absence of the distal peroneus longus tendon at the plantar aspect of the foot, compatible w ith rupture and proximal retraction. Flexor and extensor tendons in the toes are intact otherwise. Pl ulysses fascia intact. There is diffuse degenerative change of the plantar musculature of the foot, non specific. There is tenosynovitis of the flexor digitorum longus tendon and flexor hallucis longus ten don at the plantar aspect of the midfoot. There is mild dorsal subcutaneous soft tissue edema, nonspe cific. IMPRESSION: Complete rupture of the distal peroneus longus tendon with proximal retraction. Tenosynovitis at the plantar aspect of the midfoot involving the flexor digitorum longus and flexor h allucis longus tendon sheaths. Reviewed, dictated and finalized at location . IMPRESSION: Complete rupture of the distal peroneus longus tendon with proximal retraction. Tenosynovitis at the plantar aspect of the midfoot involving the flexor digitor um longus and flexor hallucis longus tendon sheaths.
--- NOTE | ~2025-03-20 | MR_ITS ---
MRI of the right ankle Clinical history: Acquired deformity Technique: Coronal proton-density and proton-density fat-sat images, axial proton-density and proton- density fat-sat images, and sagittal proton-density and proton-density fat-sat images were acquired. Findings: Syndesmotic ligaments are intact. Probable complete tear of the anterior talofibular ligame nt. Posterior talofibular ligament and calcaneofibular ligament are intact. Deltoid ligament intact. Medial flexor tendons, anterior extensor tendons, and Achilles tendon are intact. Peroneus brevis ten don is intact with advanced tendinosis. There is probable complete rupture the peroneus longus tendon , which is retracted to the level of the lateral malleolar tip. There is extensive tenosynovitis of t he peroneal tendon sheaths. There is additional tenosynovitis of the tibialis posterior and flexor di gitorum longus tendon sheaths. There is severe degenerative change of the tibiotalar joint with diffuse high-grade chondral malacia, remodeling the talar dome, and associated small to moderate tibiotalar joint effusion. There is bony productive change at the anterior margin of the distal tibial plafond. There is advanced degenerativ e change of the subtalar facet posteriorly. Plantar fascia intact. There is diffuse subcutaneous soft tissue edema about the ankle. Impression: Probable complete rupture with retraction of the peroneus longus tendon, as detailed above. Extensive tenosynovitis of the peroneal tendon sheaths as well as the tibialis posterior and flexor d igitorum longus tendon sheaths. Severe degenerative change of the tibiotalar joint, as detailed above. Probable complete tear of the anterior talofibular ligament. Reviewed, dictated and finalized at location M. Impression: Probable complete rupture with retraction of the peroneus longus tendon, as det miguel above. Extensive tenosynovitis of the peroneal tendon sheaths as well as the tibialis posterior and flexor digitorum longus tendon sheaths. Severe degenerative change of the tibiotalar joint, as detailed above. Probable complete tear of the anterior talofibular ligament.
--- OUTSIDE RECORDS SUMMARY | 2025-03-20 09:27 | XMS_ITS | Referral Summary ---
Author Organization [address] Address [address] [place] [address] Care Team Providers Care Client Development Director Name Role Phone Willian Mendoza MD Primary Care Provider [phone] Encounters Date Type Department Care Team Description 03/05/2025 Orders Only [facility] Diabetes and Endocrinology [address] [place] [address] ProviderIsis MD 02/27/2025 Results Follow-Up [facility] [address] [address] Anthony Castillo MD Comprehensive metabolic panel 02/27/[address] [facility] [address] [address] Anthony Castillo MD 02/25/[address] [facility] [address] [address] Anthony Castillo MD MED Supply 02/18/2025 3:40 PM CDT Lab [address] [address] Type 2 diabetes mellitus with hyperglycemia, with long-term current use of insulin (HCC) 02/18/2025 3:15 PM CDT Office Visit [facility] [address] [address] Anthony Castillo MD Type 2 diabetes mellitus with hyperglycemia, with long-term current use of insulin (HCC) (Primary Dx) 02/06/2025 [facility]phone [facility] [address], [place] [address] Anthony Castillo MD 02/04/[address] [facility] [address] [address] Anthony Castillo MD certificate of [...] mouth 2 (two) times a day Active hgjqlqjgjzsb-Ke-sd on-minerals tablet Take 1 tablet by mouth [...] inophen (NORCO) 7.5-325 mg per tablet 12/17/19 Active ferrous sulfate 325 mg (65 mg of elemental iron) tablet Take 1 tablet (325 mg total) by mouth 2 (two) times a day Active cholecalciferol (VITAMIN D-3) 4,000 unit capsule A ctive lancets (TRUEplus Lancets) 28 gauge miscIndications:Ty pe 2 diabetes mellitus with hyperglycemia, with long-term current use of insulin ([facility]) USE FOR TESTING FOUR TIMES A DAY DIRECTED 400 each 3 03/21/20 22 Active pen needle, diabetic (TRUEplus Pen Needle) 31 gauge x 16 needle Use to inject insulin up to 5 times daily 450 each 2 03/21/20 22 Active alcohol swabs (BD Alcohol Swabs) pads, medicatedIndicatio ns:Type 2 diabetes mellitus with hyperglycemia, with long-term current use of insulin ([facility]) USE DIRECTED 4 TIMES DAILY 400 each [...] 1 tablet (100 mcg total) by mouth milk route supervisor before breakfast 90 tablet 3 08/07/20 24 Active Farxiga 10 mg tabletIndications: Type 2 diabetes mellitus with hyperglycemia, with long-term current use of insulin ([facility]) TAKE 1 TABLET BY MOUTH DAILY 100 tablet 2 09/04/19 25 Active blood-glucose sensor device Change sensors every 10 days Dx. E11.65 9 each 3 09/11/19 25 Active Ozempic 2 mg/dose (8 mg/3 mL) pen injector injectionIndicatio ns:Type 2 diabetes mellitus with hyperglycemia, with long-term current use of insulin ([facility]) INJECT SUBCUTANEOUSLY 2 MG EVERY WEEK 9 mL 3 12/21/19 25 Active amitriptyline (ELAVIL) 25 mg tablet 02/13/20 25 Active Active Problems Problem Noted Date Diagnosed Date Abdominal pain in female 02/18/2025 Abdominal pain, LLQ 02/18/2025 Abnormal urinalysis 02/18/2025 Arthritis 02/18/2025 Overview (02/18/2025): Phreesia 06/01/2021 Dysuria 02/18/2025 Gastroesophageal reflux disease 02/18/2025 Overview (02/18/2025): Phreesia 06/01/2021 Glucosuria 02/18/2025 Left flank pain 02/18/2025 Renal cyst, acquired, right 02/18/2025 Overview (02/18/2025): Simple appearing cyst on renal bladder ultrasound at [facility] dated 08/26/2022. Diabetes mellitus 02/18/2025 Overview (02/18/2025): Phreesia 06/01/2021 H/O gastric sleeve 01/09/2024 Iron deficiency anemia 08/31/2023 Stage 3b chronic kidney disease 08/31/2023 Hypertension, essential 08/31/2023 Overview (02/18/2025): Phreesia 06/01/2021 Hypomagnesemia 05/07/2023 Acquired hypothyroidism 03/17/2022 Assessment & Plan (08/07/2024 5:51 PM PARKING OFFICER): Chronic, stable. Continue levothyroxine Update TFTs Assessment & Plan (08/10/2023 3:53 PM PARKING OFFICER): Chronic, well-controlled Importance of taking levothyroxine [...] 04/17/2018 Assessment & Plan (08/07/2024 5:51 PM PARKING OFFICER): Chronic, stable Update lipid profile Continue statin therapy Assessment & Plan (08/10/2023 3:53 PM PARKING OFFICER): Chronic, well-controlled Continue statin therapy with Pravachol Assessment & Plan (01/17/2023 1:59 PM CDT): Chronic, well controlled Low fat Low cholesterol diet Exercise Continue statin therapy with Pravachol Assessment & Plan (03/17/2022 9:47 AM CDT): Chronic problem. On statin therapy, no changes. Assessment & Plan (10/28/2021 1:21 PM PARKING OFFICER): Chronic problem. On statin therapy, no [...] Pravachol Assessment & Plan (09/27/2019 9:29 AM PARKING OFFICER): LDL at goal. Trigs elevated. Continue [...] therapy Assessment & Plan (08/07/2018 1:59 PM PARKING OFFICER): At goal on current medications. Assessment [...] dicussed Assessment & Plan (09/27/2019 9:29 AM PARKING OFFICER): Continues to do well with wt [...] adjusted. Assessment & Plan (08/07/2018 1:59 PM PARKING OFFICER): Continues to gain weight. Little attempt at diet and exercise. Reviewed importance of avoiding juice, soda, high fat, high carb foods. Assessment & Plan (10/05/2017 2:49 PM PARKING OFFICER): Diet and exercise were discussed. 1200 Calorie diet advised 45-60 min aerobic / resistance exercise most days of the week recommended. 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 Assessment & Plan (10/28/2021 1:21 PM PARKING OFFICER): Controlled on current medications, no changes. [...] microalbumin Assessment & Plan (09/27/2019 9:29 AM PARKING OFFICER): Controlled on current medications. Continue plan. Assessment & Plan (06/06/2019 2:49 PM CDT): Controlled on current medications. Continue plan. Assessment & Plan (11/01/2018 2:04 PM CDT): Goal blood pressure is less than 140/85 Low salt diet recommended Daily aerobic exercise Continue current meds, including ALYCE-I or ARB Assessment & Plan (08/07/2018 2:00 PM PARKING OFFICER): Controlled on current medications. Assessment & Plan (04/17/2018 2:07 PM CDT): Goal blood pressure is less than 140/85 Low salt diet recommended Daily aerobic exercise Continue current meds, including ALYCE-I or ARB Assessment & Plan (10/05/2017 2:50 PM PARKING OFFICER): Goal blood pressure is less than 140/85 Low salt diet recommended Daily aerobic exercise Continue current meds, including ALYCE-I or ARB Assessment & Plan (07/20/2017 4:18 PM PARKING OFFICER): Controlled on current medications. Assessment & Plan (04/06/2017 4:28 PM CDT): At goal on current medications. Hyperlipidemia 09/19/2012 Overview (11/24/2016): HYPERLIPIDEMIA NEC/NOS Assessment & Plan (06/06/2019 2:49 PM CDT): Lipid panel ordered Assessment & Plan (07/20/2017 4:18 PM PARKING OFFICER): Will check lipid panel Assessment & Plan (04/06/2017 4:28 PM CDT): Check labs and focus on low fat foods Furuncle of trunk 06/28/2012 Overview (11/23/2016): Carbuncle and furuncle of trunk Type 2 diabetes mellitus 06/28/2012 Overview (11/24/2016): DMII WO CMP UNCNTRLD Assessment & Plan (08/07/2024 5:50 PM PARKING OFFICER): Chronic, stable Diet and exercise were emphasized Continue Farxiga and Ozempic Assessment & Plan (02/13/2024 4:29 PM CDT): Chronic, well-controlled. Continue Ozempic 2 mg weekly Farxiga 10 mg Importance of diet and exercise was discussed Assessment & Plan (08/10/2023 3:52 PM PARKING OFFICER): Chronic, well-controlled, with some postprandial hyperglycemia [...] Farxita Assessment & Plan (07/19/2022 1:34 PM PARKING OFFICER): Hba1c was Lab Results Component Value [...] today. Assessment & Plan (10/28/2021 1:43 PM PARKING OFFICER): Chronic problem, not at goal. Increase [...] breakfast Assessment & Plan (09/27/2019 9:31 AM PARKING OFFICER): A1c increased to 7.8. Pattern acceptable [...] goal hba1c is under 7.0 to prevent terminal clerk diabetes complications ( eye , kidney and [...] discussed. Assessment & Plan (08/07/2018 2:02 PM PARKING OFFICER): A1c 8.1. Baseline BG reported at [...] discussed. Assessment & Plan (10/05/2017 2:51 PM PARKING OFFICER): Hba1c was . 9.6 . today, [...] discussed. Assessment & Plan (07/20/2017 4:17 PM PARKING OFFICER): A1c improved 8.7, ~ 2%. Mostly [...] on file Legal Sex Female 10:22 AM PARKING OFFICER Gender Identity Not on file Sexual Orientation Straight 08/07/2024 2: 11 PM PARKING OFFICER Last Filed Vital Signs Vital Sign [...] 4:02 PM CDT 02/18/2025 9:28 PM CDT Anthony Castillo MD LAB BLOOD ORDERABLES Final Resul t Performing Organization Address [facility] de Phone Number OLGA [address] [address] [facility] [place] [address] * (ABNORMAL) Albumin Creatinine Ratio, Urine (02/18/2025 4:02 PM CDT) Albumin Ur 21.3 mg/L Comment: Interpretive Data No reference range established. Current interpretive data was last revised 2019. Creatinine Ur 32.8 mg/dL [facility] Comment: Interpretive Data No reference range established. Current interpretive data was last revised 2019. Albumin Creatinine Ratio, Ur 65(H) 1 - 29 mg/g [facility] Urine 02/18/2025 4:02 PM CDT 02/18/2025 7:38 PM CDT Anthony Castillo MD LAB URINE ORDERABLES Final Resul t Performing Organization Address [facility] de Phone Number OLGA [address] [address] [place] [address] * (ABNORMAL) Lipid panel (02/18/2025 4:02 PM [...] revised on 2018. Triglycerides 267(H) <=149 mg/dL [facility] Comment: Interpretive Data Ages < or = [...] on 2018. HDL 63 >=40 mg/dL [facility] Comment: Interpretive Data Ages [...] NCEP Expert Panel. Circulation 2004;110:227 3. Mikel Baer al. JIM Cardiol. 2020 December 19;5(5):540-548. doi: [...] MD LAB BLOOD ORDERABLES Final Resul t [facility] [address] [address] Department [place] [address] * (ABNORMAL) Comprehensive metabolic panel (02/18/2025 4:02 [...] BLOOD ORDERABLES Final Resul t [facility] [place]NER [address] [place] [address] * (ABNORMAL) POCT hemoglobin A1c (02/18/2025 3:13 PM CDT) Hemoglobin A1C, POC 6.6(A) 4.0 - 5.6 % Comment:None Capillary blood 02/18/2025 3 :13 PM CDT Result [facility] Anthony Castillo MD POINT OF CARE TEST ORDERABLES Fi nal Result * POCT glucose (02/18/2025 3:13 PM CDT) Glucose Blood, POC 130 Normal Fasting 70 - 100, Random <200 mg/dL Comment:None Blood 02/18/2025 3:13 PM CDT Result [facility] Anthony Castillo MD POINT OF CARE TEST ORDERABLES Fi nal Result * (ABNORMAL) DIABETES EYE EXAM (02/05/2025 8:08 AM CDT) Isis Salgado MD HEALTH MAINTENANCE Edited Result - Final from Last 3 Months Insurance [facility] MEDICARE ADVANTAGE [facility] MEDICARE ADVANTAGE Care Teams Client Development Director Relationship Specialty Start Date End Date Willian Mendoza MD PCP - General 02/18/16
--- OUTSIDE RECORDS SUMMARY | 2025-03-20 09:27 | XMS_ITS ---
Author Organization [facility] Address [address] [place], [place] [address] Care Team Providers Care Larriman Name Role Phone MIRIAN MOSHER Unavailable [phone] Virgilio Meehan Unavailable Unavailable WILFREDO BRODERICK Unavailable [phone] REASON FOR VISIT *General care Medications Medication SIG (Take, Route, Frequency, Duration) Notes Start Date End Date Status cholecalciferol 0.025 MG Oral Capsule ORAL cholecalciferol 0.025 MG Ora l CapsuleOriginal Medicationcholecalciferol 0.025 MG Oral Capsule *Reorder from [facility] for eRx and Interaction Alerts* 04/07/20 14 Active 3 ML insulin glargine 100 UNT/ML Pen Injector [Lantus] 3 ML insulin glargine 100 UNT/ML Pen Injector [Lantus]Original Medication3 ML insulin glargine 100 UNT/ML Pen Injector [Lantus] *Reorder from [facility] for eRx and Interaction Alerts* 04/07/20 14 Active Nabumetone 500 MG Oral Tablet ORAL nabumetone 500 MG Oral TabletOriginal Medicationnabumetone 500 MG Oral Tablet *Reorder from [facility] for eRx and Interaction Alerts* 06/29/20 12 Active Losartan Potassium 100 MG Oral Tablet ORAL losartan potassium 100 MG Oral TabletOriginal Medicationlosartan potassium 100 MG Oral Tablet *Reorder from [facility] for eRx and Interaction Alerts* 04/07/20 14 Active Pravastatin Sodium 10 MG Oral Tablet ORAL pravastatin sodium 10 MG Ora l TabletOriginal Medicationpravastatin sodium 10 MG Oral Tablet *Reorder from [facility] for eRx and Interaction Alerts* 04/07/20 14 Active Spironolactone 25 MG Oral Tablet ORAL spironolactone 25 MG Oral TabletOriginal Medicationspironolactone 25 MG Oral Tablet *Reorder from [facility] for eRx and Interaction Alerts* 04/07/20 14 Active Allopurinol 300 MG Oral Tablet ORAL allopurinol 300 MG Oral TabletOriginal Medicationallopurinol 300 MG Oral Tablet *Reorder from [facility] for eRx and Interaction Alerts* 04/07/20 14 Active nortriptyline 50 MG Oral Capsule ORAL nortriptyline 50 MG Oral CapsuleOriginal Medicationnortriptyline 50 MG Oral Capsule *Reorder from [facility] for eRx and Interaction Alerts* 04/07/20 14 Active verapamil hydrochloride 40 MG Oral Tablet ORAL verapamil hydrochloride 40 M G Oral TabletOriginal Medicationverapamil hydrochloride 40 MG Oral Tablet *Reorder from [facility] for eRx and Interaction Alerts* 04/07/20 14 Active propranolol hydrochloride 40 MG Oral Tablet ORAL propranolol hydrochloride 40 MG Oral TabletOriginal Medicationpropranolol hydrochloride 40 MG Oral Tablet *Reorder from [facility] for eRx and Interaction Alerts* 04/07/20 14 Active levothyroxine sodium 0.1 MG Oral Capsule ORAL levothyroxine sodium 0.1 MG Oral CapsuleOriginal Medicationlevothyroxine sodium 0.1 MG Oral Capsule *Reorder from [facility] for eRx and Interaction Alerts* 04/07/20 14 Active esomeprazole 20 MG Injection INTRAVENOUS esomeprazole 20 MG InjectionOriginal Medicationesomeprazole 20 MG Injection *Reorder from [facility] for eRx and Interaction Alerts* 04/07/20 14 Active cinnamon bark 500 MG Oral Capsule ORAL cinnamon bark 500 MG Oral CapsuleOriginal Medicationcinnamon bark 500 MG Oral Capsule *Reorder from [facility] for eRx and Interaction Alerts* 04/07/20 14 Active ciclopirox 80 MG/ML Topical Solution CUTANEOUS ciclopirox 80 MG/ML Topical SolutionOriginal Medicationciclopirox 80 MG/ML Topical Solution *Reorder from [facility] for eRx and Interaction Alerts* 04/20/20 12 Active Encounters Encounter Location Date Provider Diagnosis [address] [id number] 01/02/2025 WILFREDO BRODERICK Tinea unguium B35.1 ; Acquired 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 ; Atherosclerosis of [place] arteries of extremities with intermittent claudication, bilateral [...] utilizing a #15 blade 01/02/2025 Atherosclerosis of [place] arteries of extremities with intermittent claudication, bilateral [...] pared utilizing a #15 blade Atherosclerosis of [place] ar teries of extremities with intermittent claudication, [...] Details Provider Name:WILFREDO MARTIN, 05/08/2025 01:50:00 PM, [address] [place] [address], [phone], Progress Notes * MATEUSZ MONROE ADOB:[birth year] (59 yo F)Acc No.[id number]:01/02/2025 Patient: S MATEUSZ SNIDER A Provider: Gavi BRODERICK :1965 A ge:59 Y S ex:Female Date:01/02/2025 Address:[address] [place], [place] [id number] Subjective: * Chief Complaints: * 1 . *General care. * HPI: H PI: General care P atient presents to the office for diabetic foot care. Patient states that their nails are thickened, elongated and painful. Patient states that it is aggravated by shoe gear. Onset is gradual., Patient denies taking blood thinners., Date last seen by Dr. Meehan was 12/2024., Initials [facility]. * ROS: G eneral [...] Medicationallopurinol 300 MG Oral Tablet *Reorder from [facility] for eRx and Interaction Alerts*, Taking Spironolactone 25 MG Oral Tablet ORAL , Notes to Pharmacist: spironolactone 25 MG Oral TabletOriginal Medicationspironolactone 25 MG Oral Tablet *Reorder from [facility] for eRx and Interaction Alerts*, Taking Nabumetone 500 MG Oral Tablet ORAL , Notes to Pharmacist: nabumetone 500 MG Oral TabletOriginal Medicationnabumetone 500 MG Oral Tablet *Reorder from [facility] for eRx and Interaction Alerts*, Taking Pravastatin Sodium 10 MG Oral Tablet ORAL , Notes to Pharmacist: pravastatin sodium 10 MG Oral TabletOriginal Medicationpravastatin sodium 10 MG Oral Tablet *Reorder from [facility] for [facility]Rx and Interaction Alerts*, Taking Losartan Potassium 100 MG Oral Tablet ORAL , Notes to Pharmacist: losartan potassium 100 MG Oral TabletOriginal Medicationlosartan potassium 100 MG Oral Tablet *Reorder from [facility] for eRx and Interaction Alerts*, Taking 3 ML insulin glargine 100 UNT/ML Pen Injector [Lantus] , Notes to Pharmacist: 3 ML insulin glargine 100 UNT/ML Pen Injector [Lantus]Original Medication3 ML insulin glargine 100 UNT/ML Pen Injector [Lantus] *Reorder from [facility] for [facility]Rx and Interaction Alerts*, Taking cholecalciferol 0.025 MG Oral Capsule ORAL , Notes to Pharmacist: cholecalciferol 0.025 MG Oral CapsuleOriginal Medicationcholecalciferol 0.025 MG Oral Capsule *Reorder from [facility] for [facility]Rx and Interaction Alerts*, Taking ciclopirox 80 MG/ML Topical Solution CUTANEOUS , Notes to Pharmacist: ciclopirox 80 MG/ML Topical SolutionOriginal Medicationciclopirox 80 MG/ML Topical Solution *Reorder from [facility] for [facility]Rx and Interaction Alerts*, Taking cinnamon bark 500 MG Oral Capsule ORAL , Notes to Pharmacist: cinnamon bark 500 MG Oral CapsuleOriginal Medicationcinnamon bark 500 MG Oral Capsule *Reorder from [facility] for eRx and Interaction Alerts*, Taking esomeprazole 20 MG Injection INTRAVENOUS , Notes to Pharmacist: esomeprazole 20 MG InjectionOriginal Medicationesomeprazole 20 MG Injection *Reorder from [facility] for eRx and Interaction Alerts*, Taking levothyroxine sodium 0.1 MG Oral Capsule ORAL , Notes to Pharmacist: levothyroxine sodium 0.1 MG Oral CapsuleOriginal Medicationlevothyroxine sodium 0.1 MG Oral Capsule *Reorder from [facility] for [facility]Rx and Interaction Alerts*, Taking nortriptyline 50 MG Oral Capsule ORAL , Notes to Pharmacist: nortriptyline 50 MG Oral CapsuleOriginal Medicationnortriptyline 50 MG Oral Capsule *Reorder from [facility] for [facility]Rx and Interaction Alerts*, Taking propranolol hydrochloride 40 MG Oral Tablet ORAL , Notes to Pharmacist: propranolol hydrochloride 40 MG Oral TabletOriginal Medicationpropranolol hydrochloride 40 MG Oral Tablet *Reorder from [facility] for [facility]Rx and Interaction Alerts*, Taking verapamil hydrochloride 40 MG Oral Tablet ORAL , Notes to Pharmacist: verapamil hydrochloride 40 MG Oral TabletOriginal Medicationverapamil hydrochloride 40 MG Oral Tablet *Reorder from [facility] for eRx and Interaction Alerts*, Medication [...] - L85.1 3 . A therosclerosis of [place] arteries of extremities with intermittent claudication, bilateral [...] a #15 blade 3. A therosclerosis of [place] arteries of extremities with intermittent claudication, bilateral [...] reaction * Billing Information: * Visit Code: 49923 Office Visit, Est Pt., Level 3. * Procedure Codes: * Electronic signature of KINA BRODERICK DPM on 03/20/2025 at 09:27 AM CDT Sign off status: Pending * Provider: Gavi BRODERICK Date: 0 01/02/2025 Generated for Curt small/Ana Maria/Jose on: 0 03/20/2025 09:27 AM CDT History and Physical Notes * [...]
--- OUTSIDE RECORDS SUMMARY | 2025-03-20 09:28 | XMS_ITS | Continuity of Care Document ---
Author Organization [facility] Address [address] [place] [address] Phone Care Team Providers Care Coordinator Of Genetic Services Name Role Phone Nilson Vaughan Unavailable Unavailable [...] Diagnoses Date Provider Providers Copied on Encounter [facility], [address], [place], [place], [id number], [place] tel:[phone] [facility] No Information Clement Devine. [address] [place], [address], [place]. tel:[phone] Referring Provider: Nilson Stewart, [address] [place], [address]. tel:[phone] [facility], [address], [place], [place], [id number], [place] tel:[phone] [facility] No Information Clement Devine. [address] [place], [address], [place]. tel:[phone] Referring Provider: Nilson Stewart, [address] [place], [address]. tel:[phone] [facility], [address], [place], [place], [id number], [place] tel:[phone] [facility] No Information Clement Devine. [address] [place], [address], [place]. tel:[phone] Referring Provider: Nilson Stewart, [address] [place], [address]. tel:[phone] [facility], [address], [place], [place], [id number], [place] tel:[phone] [facility] No Information Clement Devine. [address] [place], [address], [place]. [phone] Referring Provider: Nilson Stewart, [address] [place], [address]. tel:[phone] [facility], [address], [place], [place], [id number], [place] tel:[phone] [facility] No Information Clement Devine. [address] [place], [address], [place]. tel:[phone] [facility], [address], [place], [place], [id number], [place] tel:[phone] [facility] No Information Clement Devine. [address] [place], [address], [place]. tel:[phone] Referring Provider: Nilson Stewart, [address] [place], [address]. tel:[phone] Office/outpat ient Visit, [facility], [address], [place], [place], [id number], [place] tel:[phone] [facility] No Information Clement Devine. [address] [place], [address], [place]. tel:[phone] Family History Family Member Type Diagnosis Age At Onset No Information Payers Payer name Insurance type Covered constitution party ID Authorshiloha tiisaiah(s) Medicaid [facility] [id number] Social History Type Description Quantity Date Captured [...]
--- OUTSIDE RECORDS SUMMARY | 2025-03-20 09:28 | XMS_ITS | Encounter Summary ---
Author Organization [facility] Address [facility] [place] [address] Care Team Providers Care Taxi Driver Supervisor Name Role Phone Alexis Thurman MD Unavailable [phone] Willian Mendoza MD Primary Care Provider [phone] Cee Liu APRN, OIL BAY TECHNICIAN-C Unavailable Virgilio Meehan DO Primary Care Provider [phone] Mame Osborn MD Unavailable [phone] Encounter Details Date Type Department Care Team (Late st Contact Info) Description 10/12/2018 Abstract [facility] [address] [place] [address] Abstract, Doc [facility] Social History [...] 05/12/2025 1:30 PM CDT [facility] [address] [place] [address] Cee Liu APRN, OIL BAY TECHNICIAN-C [address] [facility] [address] [place] [address] documented as of this encounter Visit Diagnoses Not on filedocumented in this encounter Care Teams Taxi Driver Supervisor Relationship Specialty Start Date End Date Willian Mendoza MD [address] [place] [address] PCP - General INTERNAL MEDICINE 09/14/18 09/07/22 Virgilio Meehan DO [address] [place] [address] PCP - General FAMILY PRACTICE 09/08/22 Alexis Thurman MD [address] [place] [address] [place] Bath[employer] Beater Tender CARDIOVASCULAR DISEASE 09/14/18 04/01/24 Cee Liu APRN, OIL BAY TECHNICIAN-C [address] [facility] [address] [place] [address] NURSE PRACTITIONER 05/27/22 Mame Osborn MD [address] [place], [place] [id number] INTERVENTIONAL CARDIOLOGY 05/10/24 documented as of this encounter
--- OUTSIDE RECORDS SUMMARY | 2025-03-20 09:28 | XMS_ITS | Encounter Summary ---
Author Organization [facility] Address [facility] [place] [address] Care Team Providers Care Modeling And Simulation Analyst Name Role Phone Alexis Thurman MD Unavailable [phone] Willian Mednoza MD Primary Care Provider [phone] Cee Liu APRN, CLOTH FEEDER-C Unavailable Virgilio Meehan DO Primary Care Provider [phone] Mame Osborn MD Unavailable [phone] Encounter Details Date Type Department Care Team (Late st Contact Info) Description 06/24/2022 Hospital Orders Only [employer] Pre/Post [address] [place] [address] Alexis Thurman MD [address] [place] [address] Social History Tobacco Use Types [...] Description 05/12/2025 1:30 PM CDT Office Visit [facility] el [address] [place] [address] Cee Liu APRN, CLOTH FEEDER-C [address] [facility] [address] [phone] documented as of this encounter Visit Diagnoses Not on filedocumented in this encounter Care Teams Modeling And Simulation Analyst Relationship Specialty Start Date End Date Willian Mendoza MD [address] [place] [address] PCP - General INTERNAL MEDICINE 09/14/18 09/07/22 Virgilio Meehan DO [address] [place] [address] PCP - General FAMILY PRACTICE 09/08/22 Alexis Thurman MD [address] [place] [address] [employer] Carp[employer] Professional CARDIOVASCULAR DISEASE 09/14/18 04/01/24 Cee Liu APRN, CLOTH FEEDER-C [address] [phone] NURSE PRACTITIONER 05/27/22 Mame Osborn MD [address] [place], [place] [address] INTERVENTIONAL CARDIOLOGY 05/10/24 documented as of this encounter
--- OUTSIDE RECORDS SUMMARY | 2025-03-20 09:28 | XMS_ITS ---
Author Organization [facility] Address [address] [place], [place] [address] Care Team Providers Care Drop Hammer Mechanic Name Role Phone MIRIAN MOSHER Unavailable [phone] Virgilio Meehan Unavailable Unavailable WILFREDO BRODERICK Unavailable [phone] REASON FOR VISIT *General care Medications Medication SIG (Take, Route, Frequency, Duration) Notes Start Date End Date Status levothyroxine sodium 0.1 MG Oral Capsule ORAL levothyroxine sodium 0.1 MG Oral CapsuleOriginal Medicationlevothyroxine sodium 0.1 MG Oral Capsule *Reorder from [employer] for eRx and Interaction Alerts* 04/07/20 14 Active nortriptyline 50 MG Oral Capsule ORAL nortriptyline 50 MG Oral CapsuleOriginal Medicationnortriptyline 50 MG Oral Capsule *Reorder from [employer] for eRx and Interaction Alerts* 04/07/20 14 Active ciclopirox 80 MG/ML Topical Solution CUTANEOUS ciclopirox 80 MG/ML Topical SolutionOriginal Medicationciclopirox 80 MG/ML Topical Solution *Reorder from [employer] for eRx and Interaction Alerts* 04/20/20 12 Active cinnamon bark 500 MG Oral Capsule ORAL cinnamon bark 500 MG Oral CapsuleOriginal Medicationcinnamon bark 500 MG Oral Capsule *Reorder from exoro system[employer]olo for eRx and Interaction Alerts* 04/07/20 14 Active esomeprazole 20 MG Injection INTRAVENOUS esomeprazole 20 MG InjectionOriginal Medicationesomeprazole 20 MG Injection *Reorder from [employer] for eRx and Interaction Alerts* 04/07/20 14 Active Nabumetone 500 MG Oral Tablet ORAL nabumetone 500 MG Oral TabletOriginal Medicationnabumetone 500 MG Oral Tablet *Reorder from [facility] for eRx and Interaction Alerts* 06/29/20 12 Active Pravastatin Sodium 10 MG Oral Tablet ORAL pravastatin sodium 10 MG Ora l TabletOriginal Medicationpravastatin sodium 10 MG Oral Tablet *Reorder from [facility] for eRx and Interaction Alerts* 04/07/20 14 Active Losartan Potassium 100 MG Oral Tablet ORAL losartan potassium 100 MG Oral TabletOriginal Medicationlosartan potassium 100 MG Oral Tablet *Reorder from [facility] for eRx and Interaction Alerts* 04/07/20 14 Active 3 ML insulin glargine 100 UNT/ML Pen Injector [Lantus] 3 ML insulin glargine 100 UNT/ML Pen Injector [Lantus]Original Medication3 ML insulin glargine 100 UNT/ML Pen Injector [Lantus] *Reorder from [facility] for eRx and Interaction Alerts* 04/07/20 14 Active cholecalciferol 0.025 MG Oral Capsule ORAL cholecalciferol 0.025 MG Ora l CapsuleOriginal Medicationcholecalciferol 0.025 MG Oral Capsule *Reorder from [facility] for eRx and Interaction Alerts* 04/07/20 14 Active verapamil hydrochloride 40 MG Oral Tablet ORAL verapamil hydrochloride 40 M G Oral TabletOriginal Medicationverapamil hydrochloride 40 MG Oral Tablet *Reorder from [facility] for eRx and Interaction Alerts* 04/07/20 14 Active propranolol hydrochloride 40 MG Oral Tablet ORAL propranolol hydrochloride 40 MG Oral TabletOriginal Medicationpropranolol hydrochloride 40 MG Oral Tablet *Reorder from [facility] for eRx and Interaction Alerts* 04/07/20 14 Active Allopurinol 300 MG Oral Tablet ORAL allopurinol 300 MG Oral TabletOriginal Medicationallopurinol 300 MG Oral Tablet *Reorder from [facility] for eRx and Interaction Alerts* 04/07/20 14 Active Spironolactone 25 MG Oral Tablet ORAL spironolactone 25 MG Oral TabletOriginal Medicationspironolactone 25 MG Oral Tablet *Reorder from [facility] for eRx and Interaction Alerts* 04/07/20 14 Active Vital Signs Height 67.00 in 03/06/2025 Weight 251 lbs 03/06/2025 BMI 39.31 kg/m2 03/06/2025 Height-cm 170.18 cm 03/06/2025 Weight-kg 113.85 kg 03/06/2025 Encounters Encounter Location Date Provider Diagnosis [address] [id number] 03/06/2025 WILFREDO BRODERICK Plan Of Treatment Next Appt Details Provider Name:WILFREDO MARTIN, 05/08/2025 01:50:00 PM, [address] [place] [address], [phone], Progress Notes * MABEL MATEUSZ ADOB:[birth year] (59 yo F)Acc No.[id number]:03/06/2025 Patient: MATEUSZ ZHU Provider: Gavi BRODERICK :1965 A ge:59 Y S ex:Female Date:03/06/2025 Address:[address] [place], [place] [id number] Subjective: * Chief Complaints: * 1 . *General care. * HPI: H PI: General care P atient presents to the office for diabetic foot care. Patient states that their nails are thickened, elongated and painful. Patient states that it is aggravated by shoe gear. Onset is gradual., Patient denies taking blood thinners., Date last seen by Dr. Mendoza was 02/2025., Initials [facility]. * Medical History: Gavi cooper. * Family [...] *Reorder from [facility] for eRx and Interaction Alerts*, Taking Spironolactone 25 MG Oral Tablet ORAL , Notes to Pharmacist: spironolactone 25 MG Oral TabletOriginal Medicationspironolactone 25 MG Oral Tablet *Reorder from [facility] for eRx and Interaction Alerts*, Taking Nabumetone 500 MG Oral Tablet ORAL , Notes to Pharmacist: nabumetone 500 MG Oral TabletOriginal Medicationnabumetone 500 MG Oral Tablet *Reorder from [facility] for eRx and Interaction Alerts*, Taking Pravastatin Sodium 10 MG Oral Tablet ORAL , Notes to Pharmacist: pravastatin sodium 10 MG Oral TabletOriginal Medicationpravastatin sodium 10 MG Oral Tablet *Reorder from [facility] for eRx and Interaction Alerts*, Taking Losartan Potassium 100 MG Oral Tablet ORAL , Notes to Pharmacist: losartan potassium 100 MG Oral TabletOriginal Medicationlosartan potassium 100 MG Oral Tablet *Reorder from [facility] for eRx and Interaction Alerts*, Taking 3 ML insulin glargine 100 UNT/ML Pen Injector [Lantus] , Notes to Pharmacist: 3 ML insulin glargine 100 UNT/ML Pen Injector [Lantus]Original Medication3 ML insulin glargine 100 UNT/ML Pen Injector [Lantus] *Reorder from [facility] for eRx and Interaction Alerts*, Taking cholecalciferol 0.025 MG Oral Capsule ORAL , Notes to Pharmacist: cholecalciferol 0.025 MG Oral CapsuleOriginal Medicationcholecalciferol 0.025 MG Oral Capsule *Reorder from [facility] for eRx and Interaction Alerts*, Taking ciclopirox 80 MG/ML Topical Solution CUTANEOUS , Notes to Pharmacist: ciclopirox 80 MG/ML Topical SolutionOriginal Medicationciclopirox 80 MG/ML Topical Solution *Reorder from [facility] for eRx and Interaction Alerts*, Taking cinnamon bark 500 MG Oral Capsule ORAL , Notes to Pharmacist: cinnamon bark 500 MG Oral CapsuleOriginal Medicationcinnamon bark 500 MG Oral Capsule *Reorder from [facility] for eRx and Interaction Alerts*, Taking esomeprazole 20 MG Injection INTRAVENOUS , Notes to Pharmacist: esomeprazole 20 MG InjectionOriginal Medicationesomeprazole 20 MG Injection *Reorder from [facility] for eRx and Interaction Alerts*, Taking levothyroxine sodium 0.1 MG Oral Capsule ORAL , Notes to Pharmacist: levothyroxine sodium 0.1 MG Oral CapsuleOriginal Medicationlevothyroxine sodium 0.1 MG Oral Capsule *Reorder from [facility] for eRx and Interaction Alerts*, Taking nortriptyline 50 MG Oral Capsule ORAL , Notes to Pharmacist: nortriptyline 50 MG Oral CapsuleOriginal Medicationnortriptyline 50 MG Oral Capsule *Reorder from [facility] for eRx and Interaction Alerts*, Taking propranolol hydrochloride 40 MG Oral Tablet ORAL , Notes to Pharmacist: propranolol hydrochloride 40 MG Oral TabletOriginal Medicationpropranolol hydrochloride 40 MG Oral Tablet *Reorder from [facility] for eRx and Interaction Alerts*, Taking verapamil hydrochloride 40 MG Oral Tablet ORAL , Notes to Pharmacist: verapamil hydrochloride 40 MG Oral TabletOriginal Medicationverapamil hydrochloride 40 MG Oral Tablet *Reorder from [facility] for eRx and Interaction Alerts*, Medication List [...] Gavi BRODERICK Date: 03/06/2025 Generated for Curt Hughes on: 03/20/2025 09:27 AM CDT History and Physical [...]
--- OUTSIDE RECORDS SUMMARY | 2025-03-20 09:28 | XMS_ITS | Encounter Summary ---
Author Organization [facility] Address [facility] [place] [address] Care Team Providers Care Basketball Assembler Name Role Phone Alexis Thurman MD Unavailable [phone] Cee Liu APRN, NP-C Unavailable [phone] Virgilio Meehan DO Primary Care Provider [phone] Mame Osborn MD Unavailable [phone] Encounter Details Date Type Department Care Team (Late Contact Info) Description 12/21/2022 Abstract [facility] [address] [place] [address] Naheed Arzola MD [address] [place] [address] Social History Tobacco Use Types Packs/Day Years [...] 05/12/2025 1:30 PM CDT Office Visit [facility] [address] [place] [address] Cee Liu APRN, TOOL AND DIE REPAIRER-C [address] [address] documented as of this encounter Visit Diagnoses Not on filedocumented in this encounter Care Teams Basketball Assembler Relationship Specialty Start Date End Date Virgilio Meehan DO [address] [place] [address] PCP - General FAMILY PRACTICE 09/08/22 Alexis Thurman MD [address] [place] [address] [place] Senior Major Gifts Officer CARDIOVASCULAR DISEASE 09/14/18 04/01/24 Cee Liu APRN, TOOL AND DIE REPAIRER-C [address] [address] NURSE PRACTITIONER 05/27/22 Mame Osborn MD [address] [place] [address] INTERVENTIONAL CARDIOLOGY 05/10/24 documented as of this encounter
--- OUTSIDE RECORDS SUMMARY | 2025-03-20 09:28 | XMS_ITS | Encounter Summary ---
Author Organization [facility] Address [facility] [place] [address] Care Team Providers Care Line Lead Name Role Phone Alexis Thurman MD Unavailable [phone] Willian Mendoza MD Primary Care Provider [phone] Cee Liu APRN, ADVISORY APPLICATION DEVELOPER-C Unavailable Virgilio Meehan DO Primary Care Provider [phone] Mame Osborn MD Unavailable [phone] Encounter Details Date Type Department Care Team (Late st Contact Info) Description 07/04/2022 Abstract [facility] [address] [place] [address] Alexis Thurman MD [address] [place] [address] Social History Tobacco Use Types Packs/Day Years [...] Coronavirus/COVID-19? No / Unsure 06/29/2022 5:44 AM CLAMP OPERATOR documented as of this encounter Plan of Treatment Upcoming Encounters Date Type Department Care Team (Late st Contact Info) Description 05/12/2025 1:30 PM CDT Office Visit [facility] el[facility] [address] [place] [address] Cee Liu APRN, ADVISORY APPLICATION DEVELOPER-C [address] [facility] [address] [place] [address] documented as of this encounter [...] on filedocumented in this encounter Care Teams Line Lead Relationship Specialty Start Date End Date Willian Mendoza MD [address] [place] [address] PCP - General INTERNAL MEDICINE 09/14/18 09/07/22 Virgilio Meehan DO [address] [place] [address] PCP - General FAMILY PRACTICE 09/08/22 Alexis Thurman MD [address] [place] [address] [facility] [place] Enamel Pulverizer CARDIOVASCULAR DISEASE 09/14/18 04/01/24 Cee Liu APRN, ADVISORY APPLICATION DEVELOPER-C [address] [facility] [address] [place] [address] NURSE PRACTITIONER 05/27/22 Mame Osborn MD [address] [place] [address] INTERVENTIONAL CARDIOLOGY 05/10/24 documented as of this encounter
--- OUTSIDE RECORDS SUMMARY | 2025-03-20 09:28 | XMS_ITS | Encounter Summary ---
Author Organization [facility] Address [facility] [place] [address] Care Team Providers Care Gang Leader Name Role Phone Alexis Thurman MD Unavailable [phone] Willian Mendoza MD Primary Care Provider [phone] Cee Liu APRN, SOLAR SALES SPECIALIST-C Unavailable Virgilio Meehan DO Primary Care Provider [phone] Mame Osborn MD Unavailable [phone] Encounter Details Date Type Department Care Team (Late st Contact Info) Description 04/07/2021 Abstract [facility] [address] [place] [address] [place] [address] [place] [id number] Social History Tobacco Use Types Packs/Day Years [...] 05/12/2025 1:30 PM CDT Office Visit [facility] el [address] [place] [address] Cee Liu APRN, SOLAR SALES SPECIALIST-C [address] [address] documented as of this encounter Visit Diagnoses Not on filedocumented in this encounter Care Teams Gang Leader Relationship Specialty Start Date End Date Willian Mendoza MD [address] [place] [address] PCP - General INTERNAL MEDICINE 09/14/18 09/07/22 Virgilio Meehan DO [address] [place] [address] PCP - General FAMILY PRACTICE 09/08/22 Alexis Thurman MD [address] [place] [address] [place] Granite Sandblaster Apprentice CARDIOVASCULAR DISEASE 09/14/18 04/01/24 Cee Liu APRN, SOLAR SALES SPECIALIST-C [address] [phone] NURSE PRACTITIONER 05/27/22 Mame Osborn MD [address] [place] [address] INTERVENTIONAL CARDIOLOGY 05/10/24 documented as of this encounter
--- OUTSIDE RECORDS SUMMARY | 2025-03-20 09:28 | XMS_ITS | Encounter Summary ---
Author Organization [facility] Address On license of [facility] [place] [address] Care Team Providers Care Truck Driving Name Role Phone Cee Liu APRN, TIMBER DEADENER-C Unavailable Virgilio Meehan DO Primary Care Provider [phone] Mame Osborn MD Unavailable [phone] Encounter Details Date Type Department Care Team (Late Contact Info) Description 11/12/2024 Abstract [facility] [address] [place] [address] Ella Witt MD [address] [place] [address] Social History Tobacco Use Types Packs/Day Years [...] Description 05/12/2025 1:30 PM CDT Office Visit [facility] eld [address] [place] [address] eCe Liu APRN, TIMBER DEADENER-C [address] [facility] [address] [place] [address] documented as of this encounter Visit Diagnoses Not on filedocumented in this encounter Care Teams Truck Driving Relationship Specialty Start Date End Date Virgilio Meehan DO [address] [place] [address] PCP - General FAMILY PRACTICE 09/08/22 Cee Liu, STABLEHAND, TIMBER DEADENER-C [address] [facility] [address] [place] [address] NURSE PRACTITIONER 05/27/22 Mame Osborn MD [address] [place] [address] INTERVENTIONAL CARDIOLOGY 05/10/24 documented as of this encounter
--- OUTSIDE RECORDS SUMMARY | 2025-03-20 09:28 | XMS_ITS | Encounter Summary ---
Author Organization [facility] Address [facility] [place] [address] Care Team Providers Care Quill Worker Name Role Phone Alexis Thurman MD Unavailable [phone] Cee Liu APRN, NP-C Unavailable Virgilio Meehan DO Primary Care Provider Mame Osborn MD Unavailable [phone] Encounter Details Date Type Department Care Team (Late Contact Info) Description 09/23/2022 Abstract [facility] [address] [place] [address] Alexis Thurman MD [address] [place] [address] Social History Tobacco Use Types [...] Coronavirus/COVID-19? No / Unsure 09/08/2022 8:48 AM PLIER WORKER documented as of this encounter Plan of Treatment Upcoming Encounters Date Type Department Care Team (Late Contact Info) Description 05/12/2025 1:30 PM CDT Office Visit [facility] [address] [place] [address] Cee Liu APRN, FRONT LINE LEADER-C [address] [facility] [address] [place] [address] documented as of this encounter Visit Diagnoses Not on filedocumented in this encounter Care Teams Quill Worker Relationship Specialty Start Date End Date Virgilio Meehan DO [address] [place] [address] PCP - General FAMILY PRACTICE 09/08/22 Alexis Thurman MD [address] [place] [address] [place] Head Trimmer CARDIOVASCULAR DISEASE 09/14/18 04/01/24 Cee Liu APRN, FRONT LINE LEADER-C [address] [facility] [address] [address] NURSE PRACTITIONER 05/27/22 Mame Osborn MD [address] [place] [address] INTERVENTIONAL CARDIOLOGY 05/10/24 documented as of this encounter
--- OUTSIDE RECORDS SUMMARY | 2025-03-20 09:29 | XMS_ITS | Encounter Summary ---
Author Organization [facility] Address [address] [place] [address] Care Team Providers Care Olive Pitter Name Role Phone Willian Mendoza MD Primary Care Provider [phone] Encounter Details Date Type Department Care Team (Latest Contact Info) Description 02/27/2025 Results Follow-Up [facility] [id number] [place] [address] [place] Castillo [place] [address] [place] [address] [address], [place] [id number] Comprehensive metabolic panel Social History Tobacco Use [...] on file Legal Sex Female 10:22 AM BOX ICER Gender Identity Not on file Sexual Orientation Straight 08/07/2024 2: 11 PM BOX ICER documented as of this encounter Plan of Treatment Not on file documented as of this encounter Visit Diagnoses Not on filedocumented in this encounter Care Teams Olive Pitter Relationship Specialty Start Date End Date Willian Mendoza MD PCP - General 02/18/16 documented as of this encounter
--- OUTSIDE RECORDS SUMMARY | 2025-03-20 09:29 | XMS_ITS | Patient Health Record ---
Author Organization [facility] Address [address] [place], [place] [id number] Care Team Providers Care Desk Pens Assembler Name Role Phone MIRIAN MOSHER Unavailable [phone] Virgilio Meehan Unavailable Unavailable ADRIEN CONTRERAS Unavailable [phone] WILFREDO BRODERICK Unavailable [phone] Allergies No Known Allergies Reason For Referral No Information Medications Medication SIG (Take, Route, Frequency, Duration) Notes Start Date End Date Status Nabumetone 500 MG Oral Tablet ORAL nabumetone 500 MG Oral TabletOriginal Medicationnabumetone 500 MG Oral Tablet *Reorder from [employer] for eRx and Interaction Alerts* 06/29/20 12 Active verapamil hydrochloride 40 MG Oral Tablet ORAL verapamil hydrochloride 40 M G Oral TabletOriginal Medicationverapamil hydrochloride 40 MG Oral Tablet *Reorder from [employer] for eRx and Interaction Alerts* 04/07/20 14 Active Pravastatin Sodium 10 MG Oral Tablet ORAL pravastatin sodium 10 MG Ora l TabletOriginal Medicationpravastatin sodium 10 MG Oral Tablet *Reorder from [employer] for eRx and Interaction Alerts* 04/07/20 14 Active Losartan Potassium 100 MG Oral Tablet ORAL losartan potassium 100 MG Oral TabletOriginal Medicationlosartan potassium 100 MG Oral Tablet *Reorder from [employer] for eRx and Interaction Alerts* 04/07/20 14 Active 3 ML insulin glargine 100 UNT/ML Pen Injector [Lantus] 3 ML insulin glargine 100 UNT/ML Pen Injector [Lantus]Original Medication3 ML insulin glargine 100 UNT/ML Pen Injector [Lantus] *Reorder from [employer] for eRx and Interaction Alerts* 04/07/20 14 Active propranolol hydrochloride 40 MG Oral Tablet ORAL propranolol hydrochloride 40 MG Oral TabletOriginal Medicationpropranolol hydrochloride 40 MG Oral Tablet *Reorder from [facility] for eRx and Interaction Alerts* 04/07/20 14 Active levothyroxine sodium 0.1 MG Oral Capsule ORAL levothyroxine sodium 0.1 MG Oral CapsuleOriginal Medicationlevothyroxine sodium 0.1 MG Oral Capsule *Reorder from [facility] for eRx and Interaction Alerts* 04/07/20 14 Active Allopurinol 300 MG Oral Tablet ORAL allopurinol 300 MG Oral TabletOriginal Medicationallopurinol 300 MG Oral Tablet *Reorder from [employer] for eRx and Interaction Alerts* 04/07/20 14 Active nortriptyline 50 MG Oral Capsule ORAL nortriptyline 50 MG Oral CapsuleOriginal Medicationnortriptyline 50 MG Oral Capsule *Reorder from [facility] for eRx and Interaction Alerts* 04/07/20 14 Active Spironolactone 25 MG Oral Tablet ORAL spironolactone 25 MG Oral TabletOriginal Medicationspironolactone 25 MG Oral Tablet *Reorder from [employer] for eRx and Interaction Alerts* 04/07/20 14 Active cholecalciferol 0.025 MG Oral Capsule ORAL cholecalciferol 0.025 MG Ora l CapsuleOriginal Medicationcholecalciferol 0.025 MG Oral Capsule *Reorder from [employer] for eRx and Interaction Alerts* 04/07/20 14 Active ciclopirox 80 MG/ML Topical Solution CUTANEOUS ciclopirox 80 MG/ML Topical SolutionOriginal Medicationciclopirox 80 MG/ML Topical Solution *Reorder from [employer] for eRx and Interaction Alerts* 04/20/20 12 Active cinnamon bark 500 MG Oral Capsule ORAL cinnamon bark 500 MG Oral CapsuleOriginal Medicationcinnamon bark 500 MG Oral Capsule *Reorder from [employer] for eRx and Interaction Alerts* 04/07/20 14 Active esomeprazole 20 MG Injection INTRAVENOUS esomeprazole 20 MG InjectionOriginal Medicationesomeprazole 20 MG Injection *Reorder from [employer] for eRx and Interaction Alerts* 04/07/20 14 [...] 03/06/2025 Encounters Encounter Location Date Provider Diagnosis [address] [id number] 01/02/2025 WILFREDO BRODERICK Tinea unguium B35.1 ; Acquired 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 ; Atherosclerosis of [place] arteries of extremities with intermittent claudication, bilateral legs I70.213 ; Pain in right foot M79.671 and Pain in left foot M79.[address] [id number] 03/06/2025 WILFREDO [facility] [address], [place] [id number] 04/11/2024 ADRIEN CONTRERAS Unspecified atherosclerosis of [place] arteries of extremities, bilateral legs I70.203 ; Tinea unguium B35.1 ; Pain in left toe(s) M79.675 ; Other hammer toe(s) (acquired), right foot M20.41 ; Other hammer toe(s) (acquired), left foot M20.42 ; Pain in right toe(s) M79.674 and Acquired 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 [id number] 10/10/2024 MIRIAN SNOOK Tinea unguium B35.1 ; Acquired 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 ; Atherosclerosis of [place] arteries of extremities with intermittent claudication, bilateral legs I70.213 ; Pain in right foot M79.671 and Pain in left foot M79.672 [facility] [address] [place], [place] [id number] 12/09/2024 MIRIAN SNAYLAK [facility] [address] [place], [place] [id number] 01/29/2025 MIRIAN SNOOK Assessments Encounter Date Diagnosis [...] and prescription treatments. 04/11/2024 Unspecified atherosclerosis of [place] arteries of extremities, bilateral legs (ICD-10 - [...] utilizing a #15 blade 01/02/2025 Atherosclerosis of [place] arteries of extremities with intermittent claudication, bilateral legs (ICD-10 - I70.213) Check and protect LE bilateral daily. Call if any changes or concerns. 10/10/2024 Atherosclerosis of [place] arteries of extremities with intermittent claudication, bilateral [...] Provider Name:WILFREDO MARTIN, 05/08/2025 01:50:00 PM, [address] [place] [address], [id number], Insurance Providers Payer Name Payer Address Payer Phone Subscriber Number Group Number Insured Name Patient Relationship to Insured Coverage Start Date Coverage End Date [facility] [address] [address] [place] [id number] MATEUSZ MONROE Self - patient is the insured Medical (General) History Medical History History ICD Code Diabetic
--- OUTSIDE RECORDS SUMMARY | 2025-03-20 09:29 | XMS_ITS ---
Author Organization [facility] Address [address] [place], [place] [phone] Care Team Providers Care Navigating Officer Name Role Phone MIRIAN MOSHER Unavailable [phone] Virgilio Meehan Unavailable Unavailable WILFREDO BRODERICK Unavailable [phone] REASON FOR VISIT *General care Encounters Encounter Location Date Provider Diagnosis [facility] [address] [place], [place] [id number] 03/06/2025 WILFREDO BRODERICK Tinea unguium B35.1 ; Acquired 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 ; Atherosclerosis of [place] arteries of extremities with intermittent claudication, bilateral [...] utilizing a #15 blade 03/06/2025 Atherosclerosis of [place] arteries of extremities with intermittent claudication, bilateral [...] pared utilizing a #15 blade Atherosclerosis of [place] ar teries of extremities with intermittent claudication, [...] develop. Provider Name:WILFREDO MARTIN, 05/08/2025 01:50:00 PM, [address] [place] [address], [id number], Progress Notes * MATEUSZ MONROE ADOB:[birth year] (59 yo F)Acc No.[id number]:03/06/2025 Patient: Zay KUHNSALVATOREDIVYAI A Provider: Gavi BRODERICK :1965 A ge:59 Y S ex:Female Date:03/06/2025 Address:[address] [place], [place] [id number] Subjective: * Chief Complaints: * 1 . [...] - L85.1 3 . A therosclerosis of [place] arteries of extremities with intermittent claudication, bilateral [...] a #15 blade 3. A therosclerosis of [place] arteries of extremities with intermittent claudication, bilateral [...] of KINA BRODERICK DPM on 03/20/2025 at 09:29 AM CDT Sign off status: Pending * Provider: Gavi BRODERICK Date: 03/06/2025 Generated for Curt small/Ana Maria/Jose on: 03/20/2025 09:29 AM CDT History and Physical Notes * Examination [...]
--- OUTSIDE RECORDS SUMMARY | 2025-03-20 09:29 | XMS_ITS | Clinical Summary ---
Author Organization [facility] [address] Address [address] [place] [address] Care Team Providers Care Extracting Machine Operator Name Role Phone Willian Mendoza MD Primary Care Provider [phone] Allergies Active Allergy Reactions Criticality Noted Date [...] mouth 2 (two) times a day Active khmlpjjiqpwk-Ou-jz on-minerals tablet Take 1 tablet by mouth [...] long-term current use of insulin ([facility]) USE TO TEST BLOOD SUGARS 4 TIMES [...] long-term current use of insulin ([facility]) USE FOR TESTING FOUR TIMES A DAY DIRECTED 400 each 3 03/21/20 22 Active pen needle, diabetic (TRUEplus Pen Needle) 31 gauge x 3/16 needle Use to inject insulin up to 5 times daily 450 each 2 03/21/20 22 Active alcohol swabs (BD Alcohol Swabs) pads, medicatedIndicatio ns:Type 2 diabetes mellitus with hyperglycemia, with long-term current use of insulin ([facility]) USE DIRECTED 4 TIMES DAILY 400 [...] 1 tablet (100 mcg total) by mouth fire pilot before breakfast 90 tablet 3 08/07/20 24 Active Farxiga 10 mg tabletIndications: Type 2 diabetes mellitus with hyperglycemia, with long-term current use of insulin ([facility]) TAKE 1 TABLET BY MOUTH DAILY 100 tablet 2 09/04/19 Active blood-glucose sensor device Change sensors every 10 days Dx. E11.65 9 each 3 09/11/19 Active Ozempic 2 mg/dose (8 mg/3 mL) pen injector injectionIndicatio ns:Type 2 diabetes mellitus with hyperglycemia, with long-term current use of insulin (HCC) INJECT SUBCUTANEOUSLY 2 MG EVERY WEEK 9 mL 3 12/21/19 Active amitriptyline (ELAVIL) 25 mg tablet 02/13/20 Active Active Problems Problem Noted Date Diagnosed Date Abdominal pain in female 02/18/2025 Abdominal pain, LLQ 02/18/2025 Abnormal urinalysis 02/18/2025 Arthritis 02/18/2025 Overview (02/18/2025): Phreesia 06/01/2021 Dysuria 02/18/2025 Gastroesophageal reflux disease 02/18/2025 Overview (02/18/2025): [employer]reesia 06/01/2021 Glucosuria 02/18/2025 Left flank pain 02/18/2025 Renal cyst, acquired, right 02/18/2025 Overview (02/18/2025): Simple appearing cyst on renal bladder ultrasound at [facility] dated 08/26/2022. Diabetes mellitus 02/18/2025 Overview (02/18/2025): [employer]reesia 06/01/2021 H/O gastric sleeve 01/09/2024 Iron deficiency anemia 08/31/2023 Stage 3b chronic kidney disease 08/31/2023 Hypertension, essential 08/31/2023 Overview (02/18/2025): [employer] 06/01/2021 Hypomagnesemia 05/07/2023 Acquired hypothyroidism 03/17/2022 Assessment & Plan (08/07/2024 5:51 PM ENVELOPE ADJUSTER): Chronic, stable. Continue levothyroxine Update TFTs Assessment & Plan (08/10/2023 3:53 PM ENVELOPE ADJUSTER): Chronic, well-controlled Importance of taking levothyroxine on [...] 04/17/2018 Assessment & Plan (08/07/2024 5:51 PM ENVELOPE ADJUSTER): Chronic, stable Update lipid profile Continue statin therapy Assessment & Plan (08/10/2023 3:53 PM ENVELOPE ADJUSTER): Chronic, well-controlled Continue statin therapy with Pravachol Assessment & Plan (01/17/2023 1:59 PM CDT): Chronic, well controlled Low fat Low cholesterol diet Exercise Continue statin therapy with Pravachol Assessment & Plan (03/17/2022 9:47 AM CDT): Chronic problem. On statin therapy, no changes. Assessment & Plan (10/28/2021 1:21 PM ENVELOPE ADJUSTER): Chronic problem. On statin therapy, no changes. [...] Pravachol Assessment & Plan (09/27/2019 9:29 AM ENVELOPE ADJUSTER): LDL at goal. Trigs elevated. Continue statin [...] therapy Assessment & Plan (08/07/2018 1:59 PM ENVELOPE ADJUSTER): At goal on current medications. Assessment & [...] dicussed Assessment & Plan (09/27/2019 9:29 AM ENVELOPE ADJUSTER): Continues to do well with wt loss [...] adjusted. Assessment & Plan (08/07/2018 1:59 PM ENVELOPE ADJUSTER): Continues to gain weight. Little attempt at diet and exercise. Reviewed importance of avoiding juice, soda, high fat, high carb foods. Assessment & Plan (10/05/2017 2:49 PM ENVELOPE ADJUSTER): Diet and exercise were discussed. 1200 Calorie diet advised 45-60 min aerobic / resistance exercise most days of the week recommended. Bariatric surgery medically indicated Assessment & Plan (07/20/2017 4:17 PM ENVELOPE ADJUSTER): Importance of following diet and exercising discussed. [...] Overview (02/18/2025): Congenital anomaly;Recorded Elsewhere: No Location: [facility] Source: EHR Chronic: N Practice ID: [id number] [...] changes. Assessment & Plan (10/28/2021 1:21 PM ENVELOPE ADJUSTER): Controlled on current medications, no changes. Assessment [...] microalbumin Assessment & Plan (09/27/2019 9:29 AM ENVELOPE ADJUSTER): Controlled on current medications. Continue plan. Assessment & Plan (06/06/2019 2:49 PM CDT): Controlled on current medications. Continue plan. Assessment & Plan (11/01/2018 2:04 PM CDT): Goal blood pressure is less than 140/85 Low salt diet recommended Daily aerobic exercise Continue current meds, including ALYCE-I or ARB Assessment & Plan (08/07/2018 2:00 PM ENVELOPE ADJUSTER): Controlled on current medications. Assessment & Plan (04/17/2018 2:07 PM CDT): Goal blood pressure is less than 140/85 Low salt diet recommended Daily aerobic exercise Continue current meds, including ALYCE-I or ARB Assessment & Plan (10/05/2017 2:50 PM ENVELOPE ADJUSTER): Goal blood pressure is less than 140/85 Low salt diet recommended Daily aerobic exercise Continue current meds, including ALYCE-I or ARB Assessment & Plan (07/20/2017 4:18 PM ENVELOPE ADJUSTER): Controlled on current medications. Assessment & Plan (04/06/2017 4:28 PM CDT): At goal on current medications. Hyperlipidemia 09/19/2012 Overview (11/24/2016): HYPERLIPIDEMIA NEC/NOS Assessment & Plan (06/06/2019 2:49 PM CDT): Lipid panel ordered Assessment & Plan (07/20/2017 4:18 PM ENVELOPE ADJUSTER): Will check lipid panel Assessment & Plan (04/06/2017 4:28 PM CDT): Check labs and focus on low fat foods Furuncle of trunk 06/28/2012 Overview (11/23/2016): Carbuncle and furuncle of trunk Type 2 diabetes mellitus 06/28/2012 Overview (11/24/2016): DMII WO CMP UNCNTRLD Assessment & Plan (08/07/2024 5:50 PM ENVELOPE ADJUSTER): Chronic, stable Diet and exercise were emphasized Continue Farxiga and Ozempic Assessment & Plan (02/13/2024 4:29 PM CDT): Chronic, well-controlled. Continue Ozempic 2 mg weekly Farxiga 10 mg Importance of diet and exercise was discussed Assessment & Plan (08/10/2023 3:52 PM ENVELOPE ADJUSTER): Chronic, well-controlled, with some postprandial hyperglycemia Continue [...] Farxita Assessment & Plan (07/19/2022 1:34 PM ENVELOPE ADJUSTER): Hba1c was Lab Results Component Value Date [...] today. Assessment & Plan (10/28/2021 1:43 PM ENVELOPE ADJUSTER): Chronic problem, not at goal. Increase NL [...] breakfast Assessment & Plan (09/27/2019 9:31 AM ENVELOPE ADJUSTER): A1c increased to 7.8. Pattern acceptable during [...] discussed. Assessment & Plan (08/07/2018 2:02 PM ENVELOPE ADJUSTER): A1c 8.1. Baseline BG reported at goal. [...] discussed. Assessment & Plan (10/05/2017 2:51 PM ENVELOPE ADJUSTER): Hba1c was . 9.6 . today, indicating [...] discussed. Assessment & Plan (07/20/2017 4:17 PM ENVELOPE ADJUSTER): A1c improved 8.7, ~ 2%. Mostly from [...] Department Care Team Description 03/05/[address] [facility] Medical [facility] Diabetes and Endocrinology [address] [place] [address] ProviderIsis MD 02/27/2025 Results [facility] [address] [address] Anthony Castillo MD Comprehensive metabolic panel 02/27/2025 Telephone [facility] [address] [address] Anthony Castillo MD 02/25/2025 Telephone [facility] [address] [address] Anthony Castillo MD MED Supply 02/18/2025 3:40 PM CDT Lab [address] [address] Type 2 diabetes mellitus with hyperglycemia, with long-term current use of insulin (HCC) 02/18/2025 3:15 PM CDT Office Visit [facility] [address] [address] Anthony Castillo MD Type 2 diabetes mellitus with hyperglycemia, with long-term current use of insulin (HCC) (Primary Dx) 02/06/2025 Telephone [facility] [address] [phone] Anthony Castillo MD 02/04/2025 Telephone [facility] [address] [address] Anthony Castillo MD certificate of [...] on file Legal Sex Female 10:22 AM ENVELOPE ADJUSTER Gender Identity Not on file Sexual Orientation Straight 08/07/2024 2: 11 PM ENVELOPE ADJUSTER Obstetrics History Last Filed Vital Signs Vital [...] ORDERABLES Final Resul t Performing Organization Address [facility] de Phone Number OLGA [address] [employer] [place], [place] [phone] * (ABNORMAL) Albumin Creatinine Ratio, Urine (02/18/2025 [...] ORDERABLES Final Resul t Performing Organization Address [facility] de Phone Number OLGA [address] [place] [place] [address] * (ABNORMAL) Lipid panel (02/18/2025 4:02 PM [...] mg/dL High: >160 mg/dL Calculated using the Morin LDL-C estimating equation. This equation was implemented [...] revised on 2024. Non-HDL Cholesterol 95 mg/dL CERNER CH Comment: Interpretive Data Ages < or = [...] BLOOD ORDERABLES Final Resul t OLGA HORNER [address] Department [place] [address] * (ABNORMAL) Comprehensive metabolic panel (02/18/2025 4:02 PM CDT) Sodium 140 135 - 145 mmol/L Potassium, pl 3.9 3.3 - 4.9 mmol/L CERNER Chloride 102 97 - 110 mmol/L CERNER [...] PM CDT 02/18/2025 7:38 PM CDT Result [facility] Anthony Castillo MD LAB BLOOD ORDERABLES Final Resul t [facility] [address] [address] Department [place] [address] * (ABNORMAL) POCT hemoglobin A1c (02/18/2025 3:13 PM CDT) Hemoglobin A1C, POC 6.6(A) 4.0 - 5.6 % Comment:None Capillary blood 02/18/2025 3 :13 PM CDT us Anthony Catsillo MD POINT OF CARE TEST ORDERABLES Fi nal Result * POCT glucose (02/18/2025 3:13 PM CDT) Glucose Blood, POC 130 Normal Fasting 70 - 100, Random <200 mg/dL Comment:None Blood 02/18/2025 3:13 PM CDT us Anthony Castillo MD POINT OF CARE TEST ORDERABLES Fi nal Result * (ABNORMAL) DIABETES EYE EXAM (02/05/2025 8:08 AM CDT) us Historical Provider HEALTH MAINTENANCE Edited Result - Final from Last 3 Months Insurance [facility] Address: [address] [address] [place] [address] UHC MEDICARE ADVANTAGE [facility] Address: [address] [address] [place] [address] Care Teams Extracting Machine Operator Relationship Specialty Start Date End Date Willian Mendoza MD PCP - General 02/18/16
--- OUTSIDE RECORDS SUMMARY | 2025-03-20 09:29 | XMS_ITS | Clinical Summary ---
Author Organization [facility] Address [facility] [place] [address] Care Team Providers Care Opinion Polls Survey Worker Name Role Phone Cee Liu APRN INSPECTION MANAGER-C Unavailable Virgilio Meehan DO Primary Care Provider [phone] Mame Osborn MD Unavailable [phone] Allergies Active Allergy Reactions Criticality Noted Date Comments Amoxicillin-Pot Clavulanate Diarrhea 05/27/2022 Metformin Other (see comment) 05/27/2022 Renal function impairment Pantoprazole Other (see comment) 05/27/2022 Hypomagnesemia Medications CPAP DME DEVICE CPAPCPAP [id number] via IV [id number] -[id number] -2018Lefty Morrissey 8 Active pravastatin (PRAVACHOL) 20 [...] mouth 2 (two) times daily. Active CREON 43739-795302 units capsule Take 2 capsules (72,000 units [...] lipid panel Hypertension associated with diabetes ([facility]) 09/19/2012 Overview (10/22/2018): Overview: Unspecified essential hypertension Last Assessment & Plan: Controlled on current medications. Type 2 diabetes mellitus ([facility]) 06/28 Overview (10/22/2018): Overview: DMII [...] Encounters Date Type Department Care Team Description 03/18/2025 Telephone [facility] [address] [place] [address] Cee Liu, SALES OPERATIONS ANALYST, INSPECTION MANAGER-C Question from Last 3 Months Family History Medical [...] 36.2 C (97.2 F) 06/29/2022 6:18 AM FIRE CREW WORKER Respiratory Rate 16 05/10/2024 12:4 0 PM CDT Oxygen Saturation 100% 11/02/2023 2:52 PM CDT Inhaled Oxygen Concentration - - Weight 104.9 kg (231 lb 3.2 oz) 025 10:46 AM CDT Height 170.2 cm (5' 7) 11/04/2024 10:4 6 AM CDT Body Mass Index 36.21 11/04/2024 10:46 AM CDT Plan of Treatment Upcoming Encounters Date Type Department Care Team ([facility] st Contact Info) Description 05/12/2025 1:30 PM CDT Office Visit [facility] [place] [phone] Cee Liu, ANGEL, INSPECTION MANAGER-C [address] [facility] [address] [place] [address] Health Maintenance Due Date Last Done Comments [...] this topic Medical Devices Implanted Type Area Airplane Flight Attendant Device Identifier Shelf Expiration Date Model / Serial / Lot Stent Ureteral Viking Sci Contour 6fr X 26cm - [id number] Implanted:Qty : 1 on 06/28/2021 by Ryan Vinson MD at [facility] Stent Right: Ureter [employer] [id number] 04/12/2024 [id number] / / [id number] Procedures Procedure Name Priority Date/Time Associated Diagnosis Comments LIPID PANEL Routine 07/23/2009 12:00 AM FIRE CREW WORKER from Last 3 Months or Most Recently Relevant to Health Maintenance Results * LIPID PANEL (07/23/2009 12:00 AM FIRE CREW WORKER) TRIGLYCERIDES 132 0 - 150 mg/dl [employer] TO EPIC CONVERSION CHOLESTEROL 180 0 - 200 mg/dl [employer] TO EPIC CONVERSION HDL 61 40 - 59 mg/dl [employer] TO EPIC CONVERSION LDL CONVERSION 93 0 - 100 mg/dl [employer] TO EPIC CONVERSION CHOL/HDL RATIO 3.0 <4.0 (Calc) [employer] TO EPIC CONVERSION 07/23/2009 07/23/2009 Narrative MEDINFORMATIX TO EPIC CONVERSION - 07/23/2009 1:31 PM FIRE CREW WORKER Reviewed by ANGELA Jul 23 2009 1:33:00:000PM us Generic Conversion Md [facility] Final R esult MEDINFORMATIX TO EPIC CONVERSION from Last 3 Months or Most Recently Relevant to Health Maintenance Insurance MEDICAID Member Subscriber Plan / Payer (Ef fective 2018-Present) Name:Keri Stone Ann Relation to Subscriber:Self Name:KrystamarshaKeri Payer ID:Not on file Group ID:Not on file Type:Not on file Address: [address] MEDICAID Member Subscriber Plan / Payer (Ef fective 2018-Present) Name:Keri Stone Ann Relation to Subscriber:Self Name:OleksandrmollyLittle larsoni Ann Payer ID:Not on file Group ID:Not on file Type:Not on file Address: [address] MEDICAID Advance Directives * Full Code (Latest Code Status on File) Date Activated Date Inactivated Comments 06/29/2022 9:52 AM 06/29/2022 1:43 PM Care Teams Opinion Polls Survey Worker Relationship Specialty Start Date End Date Virgilio Meehan DO [address] [place] [address] PCP - General FAMILY PRACTICE 09/08/22 Cee Liu APRN, INSPECTION MANAGER-C [address] [facility] [address] [place] [address] NURSE PRACTITIONER 05/27/22 Mame Osborn MD [address] [place] [address] INTERVENTIONAL CARDIOLOGY 05/10/24
--- OUTSIDE RECORDS SUMMARY | 2025-03-20 09:30 | XMS_ITS | Encounter Summary ---
Author Organization [facility] Address [facility] [place] [address] Care Team Providers Care Cabinetmaker Helper Name Role Phone Alexis Thurman MD Unavailable [phone] Willian Mendoza MD Primary Care Provider [phone] Cee Liu APRN, FINANCIAL SALES ASSOCIATE-C Unavailable Virgilio Meehan DO Primary Care Provider [phone] Mame Osborn MD Unavailable [phone] Encounter Details Date Type Department Care Team (Late st Contact Info) Description 11/04/2017 Abstract [facility]JS CONVERSION [address] [place] [address] , Generic ConversionMD Social History Tobacco Use [...] Description 05/12/2025 1:30 PM CDT Office Visit [facility] eld [address] [place] [address] Cee Liu, ANGEL, FINANCIAL SALES ASSOCIATE-C [address] [facility] [address] [place] [phone] documented as of this encounter Visit Diagnoses Not on filedocumented in this encounter Care Teams Cabinetmaker Helper Relationship Specialty Start Date End Date Willian Mendoza MD [address] [place] [address] PCP - General INTERNAL MEDICINE 09/14/18 09/07/22 Virgilio Meehan DO [address] [place] [address] PCP - General FAMILY PRACTICE 09/08/22 Alexis Thurman MD [address] [place] [address] Colver Train Dispatcher CARDIOVASCULAR DISEASE 09/14/18 04/01/24 Cee Liu, BEAN SNAPPER, FINANCIAL SALES ASSOCIATE-C [address] [facility] [address] [place] [address] NURSE PRACTITIONER 05/27/22 Mame Osborn MD [address] [place] [address] INTERVENTIONAL CARDIOLOGY 05/10/24 documented as of this encounter
== END 2025-03-20 09:15 | disposition home or self-care (01) ==
LOC: CHSIMG 09:14
PROVIDERS: PCP Nurse Practitioner Family; Visit Provider Orthopaedic Surgery
DX: M25.571 Pain in right ankle and joints of right foot (principal); G89.29 Other chronic pain; M21.6X1 Other acquired deformities of right foot; S96.811A Strain of other specified muscles and tendons at ankle and foot level, right foot, initial encounter; M65.871 Other synovitis and tenosynovitis, right ankle and foot
CPT/HCPCS: 73718; 73721

== ENCOUNTER 2025-03-28 08:59 | Outpatient (CLI) | payer MEDICARE, MEDICAID, SELFPAY ==
--- OUTSIDE RECORDS SUMMARY | 2025-03-28 09:07 | XMS_ITS | Clinical Summary ---
Author Organization [facility] Address [facility] [place] [address] Care Team Providers Care Care Technician Name Role Phone Cee Liu APRN PARTS INSPECTOR-C Unavailable Virgilio Meehan DO Primary Care Provider Mame Osborn MD Unavailable [phone] Allergies Active Allergy Reactions Criticality Noted Date Comments Amoxicillin-Pot Clavulanate Diarrhea 05/27/2022 Metformin Other (see comment) 05/27/2022 Renal function impairment Pantoprazole Other (see comment) 05/27/2022 Hypomagnesemia Medications CPAP DME DEVICE CPAPCPAP [id number] via IV [id number] -[id number] -2018Lefty Morrissey 8 Active pravastatin (PRAVACHOL) 20 [...] mouth 2 (two) times daily. Active CREON 71181-612863 units capsule Take 2 capsules (72,000 units [...] check lipid panel Hypertension associated with diabetes ([facility]) 09/19/2012 Overview (10/22/2018): Overview: Unspecified essential hypertension Last Assessment & Plan: Controlled on current medications. Type 2 diabetes mellitus ([facility]) 06/28 Overview (10/22/2018): Overview: DMII [...] Type Department Care Team Description 03/18/2025 Telephone [facility] [address] [place] [address] Cee Liu, AUTOMOTIVE BRAKE TECHNICIAN, PARTS INSPECTOR-C Question from Last 3 Months Family History [...] 36.2 C (97.2 F) 06/29/2022 6:18 AM INFORMATION TECHNOLOGY ASSISTANT Respiratory Rate 16 05/10/2024 12:4 0 PM CDT Oxygen Saturation 100% 11/02/2023 2:52 PM CDT Inhaled Oxygen Concentration - - Weight 104.9 kg (231 lb 3.2 oz) 025 10:46 AM CDT Height 170.2 cm (5' 7) 11/04/2024 10:4 6 AM CDT Body Mass Index 36.21 11/04/2024 10:46 AM CDT Plan of Treatment Upcoming Encounters Date Type Department Care Team ([facility] st Contact Info) Description 05/12/2025 1:30 PM CDT Office Visit [facility] eld [address] [place] [phone] Cee Liu, ANGEL, PARTS INSPECTOR-C [address] [facility] [address] [place] [address] Health Maintenance Due Date Last Done Comments [...] this topic Medical Devices Implanted Type Area [employer] Tin Roller Device Identifier Shelf Expiration Date Model / Serial / Lot Stent Ureteral [place] Sci Contour 6fr X 26cm - [id number] Implanted:Qty : 1 on 06/28/2021 by Ryan Vinson MD at [facility] Stent Right: Ureter [employer] [id number] 04/12/2024 [id number] / / [id number] Procedures Procedure Name Priority Date/Time Associated Diagnosis Comments LIPID PANEL Routine 07/23/2009 12:00 AM INFORMATION TECHNOLOGY ASSISTANT from Last 3 Months or Most Recently Relevant to Health Maintenance Results * LIPID PANEL (07/23/2009 12:00 AM INFORMATION TECHNOLOGY ASSISTANT) TRIGLYCERIDES 132 0 - 150 mg/dl MEDINFORMATIX TO EPIC CONVERSION CHOLESTEROL 180 0 - 200 mg/dl MEDINFORMATIX TO EPIC CONVERSION HDL 61 40 - 59 mg/dl MEDINFORMATIX TO EPIC CONVERSION LDL CONVERSION 93 0 - 100 mg/dl MEDINFORMATIX TO EPIC CONVERSION CHOL/HDL RATIO 3.0 <4.0 (Calc) MEDINFORMATIX TO EPIC CONVERSION 07/23/2009 07/23/2009 Narrative MEDINFORMATIX TO EPIC CONVERSION - 07/23/2009 1:31 PM INFORMATION TECHNOLOGY ASSISTANT Reviewed by ANGELA Jul 23 2009 1:33:00:000PM us Generic Conversion Md [facility] Final R esult MEDINFORMATIX TO EPIC CONVERSION from Last 3 Months or Most Recently Relevant to Health Maintenance Insurance MEDICAID Member Subscriber Plan / Payer (Ef fective 2018-Present) Name:Keri Stone Ann Relation to Subscriber:Self Name:KrystamarshaKeri Payer ID:Not on file Group ID:Not on file Type:Not on file Address: [address] MEDICAID Member Subscriber Plan / Payer (Ef fective 2018-Present) Name:Keri Stone Ann Relation to Subscriber:Self Name:OleksandrmollyLittle larsoni Ann Payer ID:Not on file Group ID:Not on file Type:Not on file Address: [address] MEDICAID Advance Directives * Full Code (Latest Code Status on File) Date Activated Date Inactivated Comments 06/29/2022 9:52 AM 06/29/2022 1:43 PM Care Teams Care Technician Relationship Specialty Start Date End Date Virgilio Meehan DO [address] [place] [address] PCP - General FAMILY PRACTICE 09/08/22 Cee Liu APRN, PARTS INSPECTOR-C [address] [facility] [address] [place] [address] NURSE PRACTITIONER 05/27/22 Mame Osborn MD [address] [place] [address] INTERVENTIONAL CARDIOLOGY 05/10/24
--- OUTSIDE RECORDS SUMMARY | 2025-03-28 09:07 | XMS_ITS | Encounter Summary ---
Author Organization [facility] Healthcare Address [address] [place] [address] Care Team Providers Care Stonework Tracer Name Role Phone Willian Mendoza MD Primary Care Provider [phone] Encounter Details Date Type Department Care Team (Latest Contact Info) Description 02/27/2025 Results Follow-Up [facility] [id number] [place] [phone] [place] [id number] [place] [address], [place] [id number] Comprehensive metabolic panel Social History Tobacco Use [...] on file Legal Sex Female 10:22 AM QUALITY ENG Gender Identity Not on file Sexual Orientation Straight 08/07/2024 2: 11 PM QUALITY ENG documented as of this encounter Plan of Treatment Not on file documented as of this encounter Visit Diagnoses Not on filedocumented in this encounter Care Teams Stonework Tracer Relationship Specialty Start Date End Date Willian Mendoza MD PCP - General 02/18/16 documented as of this encounter
--- OUTSIDE RECORDS SUMMARY | 2025-03-28 09:07 | XMS_ITS ---
Author Organization [facility] Address [address] [place], [place] [id number] Care Team Providers Care Slp Name Role Phone MIRIAN MOSHER Unavailable [phone] Virgilio Meehan Unavailable Unavailable WILFREDO BRODERICK Unavailable [phone] REASON FOR VISIT *General care Medications Medication SIG (Take, Route, Frequency, Duration) Notes Start Date End Date Status cholecalciferol 0.025 MG Oral Capsule ORAL cholecalciferol 0.025 MG Ora l CapsuleOriginal Medicationcholecalciferol 0.025 MG Oral Capsule *Reorder from [facility] for eRx and Interaction Alerts* 04/07/20 14 Active 3 ML insulin glargine 100 UNT/ML Pen Injector [Lantus] 3 ML insulin glargine 100 UNT/ML Pen Injector [Lantus]Original Medication3 ML insulin glargine 100 UNT/ML Pen Injector [Lantus] *Reorder from [facility] for eRx and Interaction Alerts* 04/07/20 14 Active Nabumetone 500 MG Oral Tablet ORAL nabumetone 500 MG Oral TabletOriginal Medicationnabumetone 500 MG Oral Tablet *Reorder from [facility] for eRx and Interaction Alerts* 06/29/20 12 Active Losartan Potassium 100 MG Oral Tablet ORAL losartan potassium 100 MG Oral TabletOriginal Medicationlosartan potassium 100 MG Oral Tablet *Reorder from [facility] for eRx and Interaction Alerts* 04/07/20 14 Active Pravastatin Sodium 10 MG Oral Tablet ORAL pravastatin sodium 10 MG Ora l TabletOriginal Medicationpravastatin sodium 10 MG Oral Tablet *Reorder from [facility] for eRx and Interaction Alerts* 04/07/20 14 Active Spironolactone 25 MG Oral Tablet ORAL spironolactone 25 MG Oral TabletOriginal Medicationspironolactone 25 MG Oral Tablet *Reorder from [facility] for eRx and Interaction Alerts* 04/07/20 14 Active Allopurinol 300 MG Oral Tablet ORAL allopurinol 300 MG Oral TabletOriginal Medicationallopurinol 300 MG Oral Tablet *Reorder from [facility] for eRx and Interaction Alerts* 04/07/20 14 Active nortriptyline 50 MG Oral Capsule ORAL nortriptyline 50 MG Oral CapsuleOriginal Medicationnortriptyline 50 MG Oral Capsule *Reorder from [facility] for eRx and Interaction Alerts* 04/07/20 14 Active verapamil hydrochloride 40 MG Oral Tablet ORAL verapamil hydrochloride 40 M G Oral TabletOriginal Medicationverapamil hydrochloride 40 MG Oral Tablet *Reorder from [facility] for eRx and Interaction Alerts* 04/07/20 14 Active propranolol hydrochloride 40 MG Oral Tablet ORAL propranolol hydrochloride 40 MG Oral TabletOriginal Medicationpropranolol hydrochloride 40 MG Oral Tablet *Reorder from [facility] for eRx and Interaction Alerts* 04/07/20 14 Active levothyroxine sodium 0.1 MG Oral Capsule ORAL levothyroxine sodium 0.1 MG Oral CapsuleOriginal Medicationlevothyroxine sodium 0.1 MG Oral Capsule *Reorder from [facility] for eRx and Interaction Alerts* 04/07/20 14 Active esomeprazole 20 MG Injection INTRAVENOUS esomeprazole 20 MG InjectionOriginal Medicationesomeprazole 20 MG Injection *Reorder from [facility] for eRx and Interaction Alerts* 04/07/20 14 Active cinnamon bark 500 MG Oral Capsule ORAL cinnamon bark 500 MG Oral CapsuleOriginal Medicationcinnamon bark 500 MG Oral Capsule *Reorder from [facility] for eRx and Interaction Alerts* 04/07/20 14 Active ciclopirox 80 MG/ML Topical Solution CUTANEOUS ciclopirox 80 MG/ML Topical SolutionOriginal Medicationciclopirox 80 MG/ML Topical Solution *Reorder from [facility] for eRx and Interaction Alerts* 04/20/20 12 Active Encounters Encounter Location Date Provider Diagnosis [address] [id number] 01/02/2025 WILFREDO BRODERICK Tinea unguium B35.1 ; Acquired 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 ; Atherosclerosis of [place] arteries of extremities with intermittent claudication, bilateral [...] utilizing a #15 blade 01/02/2025 Atherosclerosis of [place] arteries of extremities with intermittent claudication, bilateral [...] pared utilizing a #15 blade Atherosclerosis of qagan [place] ar teries of extremities with intermittent claudication, [...] Details Provider Name:WILFREDO MARTIN, 05/08/2025 01:50:00 PM, [address] [place] [address], [id number], Progress Notes * MATEUSZ MONROE ADOB:[birth year] (59 yo F)Acc No.[id number]:01/02/2025 Patient: S MATEUSZ SNIDER A Provider: Gavi BRODERICK :1965 A ge:59 Y S ex:Female Date:01/02/2025 Address:[address] [place], [place] [id number] Subjective: * Chief Complaints: * 1 . *General care. * HPI: H PI: General care P atient presents to the office for diabetic foot care. Patient states that their nails are thickened, elongated and painful. Patient states that it is aggravated by shoe gear. Onset is gradual., Patient denies taking blood thinners., Date last seen by Dr. Meehan was 12/2024., Initials [facility]. * ROS: G eneral / Constitutional: Patient [...] Medicationallopurinol 300 MG Oral Tablet *Reorder from [facility] for eRx and Interaction Alerts*, Taking Spironolactone 25 MG Oral Tablet ORAL , Notes to Pharmacist: spironolactone 25 MG Oral TabletOriginal Medicationspironolactone 25 MG Oral Tablet *Reorder from [facility] for eRx and Interaction Alerts*, Taking Nabumetone 500 MG Oral Tablet ORAL , Notes to Pharmacist: nabumetone 500 MG Oral TabletOriginal Medicationnabumetone 500 MG Oral Tablet *Reorder from [facility] for eRx and Interaction Alerts*, Taking Pravastatin Sodium 10 MG Oral Tablet ORAL , Notes to Pharmacist: pravastatin sodium 10 MG Oral TabletOriginal Medicationpravastatin sodium 10 MG Oral Tablet *Reorder from [facility] for eRx and Interaction Alerts*, Taking Losartan Potassium 100 MG Oral Tablet ORAL , Notes to Pharmacist: losartan potassium 100 MG Oral TabletOriginal Medicationlosartan potassium 100 MG Oral Tablet *Reorder from [facility] for eRx and Interaction Alerts*, Taking 3 ML insulin glargine 100 UNT/ML Pen Injector [Lantus] , Notes to Pharmacist: 3 ML insulin glargine 100 UNT/ML Pen Injector [Lantus]Original Medication3 ML insulin glargine 100 UNT/ML Pen Injector [Lantus] *Reorder from [facility] for eRx and Interaction Alerts*, Taking cholecalciferol 0.025 MG Oral Capsule ORAL , Notes to Pharmacist: cholecalciferol 0.025 MG Oral CapsuleOriginal Medicationcholecalciferol 0.025 MG Oral Capsule *Reorder from [facility] for eRx and Interaction Alerts*, Taking ciclopirox 80 MG/ML Topical Solution CUTANEOUS , Notes to Pharmacist: ciclopirox 80 MG/ML Topical SolutionOriginal Medicationciclopirox 80 MG/ML Topical Solution *Reorder from [facility] for eRx and Interaction Alerts*, Taking cinnamon bark 500 MG Oral Capsule ORAL , Notes to Pharmacist: cinnamon bark 500 MG Oral CapsuleOriginal Medicationcinnamon bark 500 MG Oral Capsule *Reorder from [facility] for eRx and Interaction Alerts*, Taking esomeprazole 20 MG Injection INTRAVENOUS , Notes to Pharmacist: esomeprazole 20 MG InjectionOriginal Medicationesomeprazole 20 MG Injection *Reorder from [facility] for eRx and Interaction Alerts*, Taking levothyroxine sodium 0.1 MG Oral Capsule ORAL , Notes to Pharmacist: levothyroxine sodium 0.1 MG Oral CapsuleOriginal Medicationlevothyroxine sodium 0.1 MG Oral Capsule *Reorder from [facility] for eRx and Interaction Alerts*, Taking nortriptyline 50 MG Oral Capsule ORAL , Notes to Pharmacist: nortriptyline 50 MG Oral CapsuleOriginal Medicationnortriptyline 50 MG Oral Capsule *Reorder from [facility] for eRx and Interaction Alerts*, Taking propranolol hydrochloride 40 MG Oral Tablet ORAL , Notes to Pharmacist: propranolol hydrochloride 40 MG Oral TabletOriginal Medicationpropranolol hydrochloride 40 MG Oral Tablet *Reorder from [facility] for eRx and Interaction Alerts*, Taking verapamil hydrochloride 40 MG Oral Tablet ORAL , Notes to Pharmacist: verapamil hydrochloride 40 MG Oral TabletOriginal Medicationverapamil hydrochloride 40 MG Oral Tablet *Reorder from [facility] for eRx and Interaction Alerts*, Medication [...] - L85.1 3 . A therosclerosis of qagan [place] arteries of extremities with intermittent claudication, bilateral [...] a #15 blade 3. A therosclerosis of [place] arteries of extremities with intermittent claudication, bilateral [...] reaction * Billing Information: * Visit Code: 97747 Office Visit, Est Pt., Level 3. * Procedure Codes: * Electronic signature of KINA BRODERICK DPM on 03/28/2025 at 09:06 AM CDT Sign off status: Pending * Provider: Gavi BRODERICK Date: 0 01/02/2025 Generated for Curt small/Ana Maria/Jose on: 0 03/28/2025 09:06 AM CDT History and Physical Notes * [...]
--- OUTSIDE RECORDS SUMMARY | 2025-03-28 09:07 | XMS_ITS | Patient Health Record ---
Author Organization [facility] Address [address] [place], [place] [address] Care Team Providers Care Painter Interior Finish Name Role Phone MIRIAN MOSHER Unavailable [phone] Virgilio Meehan Unavailable Unavailable ADRIEN CONTRERAS Unavailable [phone] WILFREDO BRODERICK Unavailable [phone] Allergies No Known Allergies Reason For Referral No Information Medications Medication SIG (Take, Route, Frequency, Duration) Notes Start Date End Date Status Nabumetone 500 MG Oral Tablet ORAL nabumetone 500 MG Oral TabletOriginal Medicationnabumetone 500 MG Oral Tablet *Reorder from [facility] for eRx and Interaction Alerts* 06/29/20 12 Active verapamil hydrochloride 40 MG Oral Tablet ORAL verapamil hydrochloride 40 M G Oral TabletOriginal Medicationverapamil hydrochloride 40 MG Oral Tablet *Reorder from [facility] for eRx and Interaction Alerts* 04/07/20 14 Active Pravastatin Sodium 10 MG Oral Tablet ORAL pravastatin sodium 10 MG Ora l TabletOriginal Medicationpravastatin sodium 10 MG Oral Tablet *Reorder from [facility] for eRx and Interaction Alerts* 04/07/20 14 Active Losartan Potassium 100 MG Oral Tablet ORAL losartan potassium 100 MG Oral TabletOriginal Medicationlosartan potassium 100 MG Oral Tablet *Reorder from [facility] for eRx and Interaction Alerts* 04/07/20 14 Active 3 ML insulin glargine 100 UNT/ML Pen Injector [Lantus] 3 ML insulin glargine 100 UNT/ML Pen Injector [Lantus]Original Medication3 ML insulin glargine 100 UNT/ML Pen Injector [Lantus] *Reorder from [facility] for eRx and Interaction Alerts* 04/07/20 14 Active propranolol hydrochloride 40 MG Oral Tablet ORAL propranolol hydrochloride 40 MG Oral TabletOriginal Medicationpropranolol hydrochloride 40 MG Oral Tablet *Reorder from [facility] for eRx and Interaction Alerts* 04/07/20 14 Active levothyroxine sodium 0.1 MG Oral Capsule ORAL levothyroxine sodium 0.1 MG Oral CapsuleOriginal Medicationlevothyroxine sodium 0.1 MG Oral Capsule *Reorder from [facility] for eRx and Interaction Alerts* 04/07/20 14 Active Allopurinol 300 MG Oral Tablet ORAL allopurinol 300 MG Oral TabletOriginal Medicationallopurinol 300 MG Oral Tablet *Reorder from [facility] for eRx and Interaction Alerts* 04/07/20 14 Active nortriptyline 50 MG Oral Capsule ORAL nortriptyline 50 MG Oral CapsuleOriginal Medicationnortriptyline 50 MG Oral Capsule *Reorder from [facility] for eRx and Interaction Alerts* 04/07/20 14 Active Spironolactone 25 MG Oral Tablet ORAL spironolactone 25 MG Oral TabletOriginal Medicationspironolactone 25 MG Oral Tablet *Reorder from [facility] for eRx and Interaction Alerts* 04/07/20 14 Active cholecalciferol 0.025 MG Oral Capsule ORAL cholecalciferol 0.025 MG Ora l CapsuleOriginal Medicationcholecalciferol 0.025 MG Oral Capsule *Reorder from [facility] for eRx and Interaction Alerts* 04/07/20 14 Active ciclopirox 80 MG/ML Topical Solution CUTANEOUS ciclopirox 80 MG/ML Topical SolutionOriginal Medicationciclopirox 80 MG/ML Topical Solution *Reorder from [facility] for eRx and Interaction Alerts* 04/20/20 12 Active cinnamon bark 500 MG Oral Capsule ORAL cinnamon bark 500 MG Oral CapsuleOriginal Medicationcinnamon bark 500 MG Oral Capsule *Reorder from [facility] for eRx and Interaction Alerts* 04/07/20 14 Active esomeprazole 20 MG Injection INTRAVENOUS esomeprazole 20 MG InjectionOriginal Medicationesomeprazole 20 MG Injection *Reorder from [facility] for eRx and Interaction Alerts* 04/07/20 14 [...] 03/06/2025 Encounters Encounter Location Date Provider Diagnosis [address] [id number] 01/02/2025 WILFREDO BRODERICK Tinea unguium B35.1 ; Acquired 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 ; Atherosclerosis of [place] arteries of extremities with intermittent claudication, bilateral legs I70.213 ; Pain in right foot M79.671 and Pain in left foot M79.[address] [id number] 03/06/2025 WILFREDO [facility] [place] [address] [place], [place] [id number] 04/11/2024 ADRIEN CONTRERAS Unspecified atherosclerosis of [place] arteries of extremities, bilateral legs I70.203 ; Tinea unguium B35.1 ; Pain in left toe(s) M79.675 ; Other hammer toe(s) (acquired), right foot M20.41 ; Other hammer toe(s) (acquired), left foot M20.42 ; Pain in right toe(s) M79.674 and Acquired 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 [id number] 10/10/2024 MIRIAN SNOOK Tinea unguium B35.1 ; Acquired 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 ; Atherosclerosis of [place] arteries of extremities with intermittent claudication, bilateral legs I70.213 ; Pain in right foot M79.671 and Pain in left foot M79.672 [facility] [address] [place], [place] [id number] 12/09/2024 MIRIAN SNAYLAK [facility] [address] [place], [place] [id number] 01/29/2025 MIRIAN SNOOK Assessments Encounter Date Diagnosis [...] and prescription treatments. 04/11/2024 Unspecified atherosclerosis of [place] arteries of extremities, bilateral legs (ICD-10 - [...] utilizing a #15 blade 01/02/2025 Atherosclerosis of [place] arteries of extremities with intermittent claudication, bilateral legs (ICD-10 - I70.213) Check and protect LE bilateral daily. Call if any changes or concerns. 10/10/2024 Atherosclerosis of [place] arteries of extremities with [...] Details Provider Name:WILFREDO MARTIN, 05/08/2025 01:50:00 PM, [address] [place] [address], [id number], Insurance Providers Payer Name Payer Address Payer Phone Subscriber Number Group Number Insured Name Patient Relationship to Insured Coverage Start Date Coverage End Date [facility] [address] [address] [place] [address] [id number] MATEUSZ MONROE Self - patient is the insured Medical (General) History Medical History History ICD Code Diabetic
--- OUTSIDE RECORDS SUMMARY | 2025-03-28 09:07 | XMS_ITS ---
Author Organization [facility] Address [address] [place], [place] [address] Care Team Providers Care Reference Archivist Name Role Phone MIRIAN MOSHER Unavailable [phone] Virgilio Meehan Unavailable Unavailable WILFREDO BRODERICK Unavailable [phone] REASON FOR VISIT *General care Medications Medication SIG (Take, Route, Frequency, Duration) Notes Start Date End Date Status levothyroxine sodium 0.1 MG Oral Capsule ORAL levothyroxine sodium 0.1 MG Oral CapsuleOriginal Medicationlevothyroxine sodium 0.1 MG Oral Capsule *Reorder from [facility] for eRx and Interaction Alerts* 04/07/20 14 Active nortriptyline 50 MG Oral Capsule ORAL nortriptyline 50 MG Oral CapsuleOriginal Medicationnortriptyline 50 MG Oral Capsule *Reorder from [facility] for eRx and Interaction Alerts* 04/07/20 14 Active ciclopirox 80 MG/ML Topical Solution CUTANEOUS ciclopirox 80 MG/ML Topical SolutionOriginal Medicationciclopirox 80 MG/ML Topical Solution *Reorder from [facility] for eRx and Interaction Alerts* 04/20/20 12 Active cinnamon bark 500 MG Oral Capsule ORAL cinnamon bark 500 MG Oral CapsuleOriginal Medicationcinnamon bark 500 MG Oral Capsule *Reorder from [employer] for eRx and Interaction Alerts* 04/07/20 14 Active esomeprazole 20 MG Injection INTRAVENOUS esomeprazole 20 MG InjectionOriginal Medicationesomeprazole 20 MG Injection *Reorder from [employer] for eRx and Interaction Alerts* 04/07/20 14 Active Nabumetone 500 MG Oral Tablet ORAL nabumetone 500 MG Oral TabletOriginal Medicationnabumetone 500 MG Oral Tablet *Reorder from [facility] for eRx and Interaction Alerts* 06/29/20 12 Active Pravastatin Sodium 10 MG Oral Tablet ORAL pravastatin sodium 10 MG Ora l TabletOriginal Medicationpravastatin sodium 10 MG Oral Tablet *Reorder from [facility] for eRx and Interaction Alerts* 04/07/20 14 Active Losartan Potassium 100 MG Oral Tablet ORAL losartan potassium 100 MG Oral TabletOriginal Medicationlosartan potassium 100 MG Oral Tablet *Reorder from [facility] for eRx and Interaction Alerts* 04/07/20 14 Active 3 ML insulin glargine 100 UNT/ML Pen Injector [Lantus] 3 ML insulin glargine 100 UNT/ML Pen Injector [Lantus]Original Medication3 ML insulin glargine 100 UNT/ML Pen Injector [Lantus] *Reorder from [facility] for eRx and Interaction Alerts* 04/07/20 14 Active cholecalciferol 0.025 MG Oral Capsule ORAL cholecalciferol 0.025 MG Ora l CapsuleOriginal Medicationcholecalciferol 0.025 MG Oral Capsule *Reorder from [facility] for eRx and Interaction Alerts* 04/07/20 14 Active verapamil hydrochloride 40 MG Oral Tablet ORAL verapamil hydrochloride 40 M G Oral TabletOriginal Medicationverapamil hydrochloride 40 MG Oral Tablet *Reorder from [facility] for eRx and Interaction Alerts* 04/07/20 14 Active propranolol hydrochloride 40 MG Oral Tablet ORAL propranolol hydrochloride 40 MG Oral TabletOriginal Medicationpropranolol hydrochloride 40 MG Oral Tablet *Reorder from [facility] for eRx and Interaction Alerts* 04/07/20 14 Active Allopurinol 300 MG Oral Tablet ORAL allopurinol 300 MG Oral TabletOriginal Medicationallopurinol 300 MG Oral Tablet *Reorder from [facility] for eRx and Interaction Alerts* 04/07/20 14 Active Spironolactone 25 MG Oral Tablet ORAL spironolactone 25 MG Oral TabletOriginal Medicationspironolactone 25 MG Oral Tablet *Reorder from [facility] for eRx and Interaction Alerts* 04/07/20 14 Active Vital Signs Height 67.00 in 03/06/2025 Weight 251 lbs 03/06/2025 BMI 39.31 kg/m2 03/06/2025 Height-cm 170.18 cm 03/06/2025 Weight-kg 113.85 kg 03/06/2025 Encounters Encounter Location Date Provider Diagnosis [address] [id number] 03/06/2025 WILFREDO BRODERICK Plan Of Treatment Next Appt Details Provider Name:WILFREDO MARTIN, 05/08/2025 01:50:00 PM, [address] [place] [address], [id number], Progress Notes * MABEL MATEUSZ ADOB:[birth year] (59 yo F)Acc No.[id number]:03/06/2025 Patient: MATEUSZ ZHU Provider: Gavi BRODERICK :1965 A ge:59 Y S ex:Female Date:03/06/2025 Address:[address] [place], [place] [id number] Subjective: * Chief Complaints: * 1 . *General care. * HPI: H PI: General care P atient presents to the office for diabetic foot care. Patient states that their nails are thickened, elongated and painful. Patient states that it is aggravated by shoe gear. Onset is gradual., Patient denies taking blood thinners., Date last seen by Dr. Mendoza was 02/2025., Initials [facility]. * Medical History: Gavi cooper. * Family [...] MG Oral Tablet *Reorder from [facility] for eRx and Interaction Alerts*, Taking Spironolactone 25 MG Oral Tablet ORAL , Notes to Pharmacist: spironolactone 25 MG Oral TabletOriginal Medicationspironolactone 25 MG Oral Tablet *Reorder from [facility] for eRx and Interaction Alerts*, Taking Nabumetone 500 MG Oral Tablet ORAL , Notes to Pharmacist: nabumetone 500 MG Oral TabletOriginal Medicationnabumetone 500 MG Oral Tablet *Reorder from [facility] for eRx and Interaction Alerts*, Taking Pravastatin Sodium 10 MG Oral Tablet ORAL , Notes to Pharmacist: pravastatin sodium 10 MG Oral TabletOriginal Medicationpravastatin sodium 10 MG Oral Tablet *Reorder from [facility] for eRx and Interaction Alerts*, Taking Losartan Potassium 100 MG Oral Tablet ORAL , Notes to Pharmacist: losartan potassium 100 MG Oral TabletOriginal Medicationlosartan potassium 100 MG Oral Tablet *Reorder from [facility] for eRx and Interaction Alerts*, Taking 3 ML insulin glargine 100 UNT/ML Pen Injector [Lantus] , Notes to Pharmacist: 3 ML insulin glargine 100 UNT/ML Pen Injector [Lantus]Original Medication3 ML insulin glargine 100 UNT/ML Pen Injector [Lantus] *Reorder from [facility] for eRx and Interaction Alerts*, Taking cholecalciferol 0.025 MG Oral Capsule ORAL , Notes to Pharmacist: cholecalciferol 0.025 MG Oral CapsuleOriginal Medicationcholecalciferol 0.025 MG Oral Capsule *Reorder from [facility] for eRx and Interaction Alerts*, Taking ciclopirox 80 MG/ML Topical Solution CUTANEOUS , Notes to Pharmacist: ciclopirox 80 MG/ML Topical SolutionOriginal Medicationciclopirox 80 MG/ML Topical Solution *Reorder from [facility] for eRx and Interaction Alerts*, Taking cinnamon bark 500 MG Oral Capsule ORAL , Notes to Pharmacist: cinnamon bark 500 MG Oral CapsuleOriginal Medicationcinnamon bark 500 MG Oral Capsule *Reorder from [facility] for eRx and Interaction Alerts*, Taking esomeprazole 20 MG Injection INTRAVENOUS , Notes to Pharmacist: esomeprazole 20 MG InjectionOriginal Medicationesomeprazole 20 MG Injection *Reorder from [facility] for eRx and Interaction Alerts*, Taking levothyroxine sodium 0.1 MG Oral Capsule ORAL , Notes to Pharmacist: levothyroxine sodium 0.1 MG Oral CapsuleOriginal Medicationlevothyroxine sodium 0.1 MG Oral Capsule *Reorder from [facility] for eRx and Interaction Alerts*, Taking nortriptyline 50 MG Oral Capsule ORAL , Notes to Pharmacist: nortriptyline 50 MG Oral CapsuleOriginal Medicationnortriptyline 50 MG Oral Capsule *Reorder from [facility] for eRx and Interaction Alerts*, Taking propranolol hydrochloride 40 MG Oral Tablet ORAL , Notes to Pharmacist: propranolol hydrochloride 40 MG Oral TabletOriginal Medicationpropranolol hydrochloride 40 MG Oral Tablet *Reorder from [facility] for eRx and Interaction Alerts*, Taking verapamil hydrochloride 40 MG Oral Tablet ORAL , Notes to Pharmacist: verapamil hydrochloride 40 MG Oral TabletOriginal Medicationverapamil hydrochloride 40 MG Oral Tablet *Reorder from [facility] for eRx and Interaction Alerts*, Medication List [...] 0 03/06/2025 Generated for Curt Hughes on: 0 03/28/2025 09:06 AM CDT History [...]
--- OUTSIDE RECORDS SUMMARY | 2025-03-28 09:07 | XMS_ITS | Encounter Summary ---
Author Organization [facility] Address [facility] [place] [address] Care Team Providers Care Assistant Project Manager Name Role Phone Cee Liu APRN, FLOUR WORKER-C Unavailable Virgilio Meehan DO Primary Care Provider [phone] Mame Osborn MD Unavailable [phone] Encounter Details Date Type Department Care Team (Late Contact Info) Description 11/12/2024 Abstract [facility] [address] [place] [address] Ella Witt MD [address] [place] [address] Social History Tobacco Use Types Packs/Day Years [...] Description 05/12/2025 1:30 PM CDT Office Visit [facility] [address] [place] [address] Cee Liu APRN, FLOUR WORKER-C [address] [facility] [address] [place] [id number] documented as of this encounter Visit Diagnoses Not on filedocumented in this encounter Care Teams Assistant Project Manager Relationship Specialty Start Date End Date Virgilio Meehan DO [address] [place] [address] PCP - General FAMILY PRACTICE 09/08/22 Cee Liu, DEPARTMENT OF SOCIOLOGY CHAIR, FLOUR WORKER-C [address] [facility] [address] [place] [address] NURSE PRACTITIONER 05/27/22 Mame Osborn MD [address] [place] [address] INTERVENTIONAL CARDIOLOGY 05/10/24 documented as of this encounter
--- OUTSIDE RECORDS SUMMARY | 2025-03-28 09:07 | XMS_ITS ---
Author Organization [facility] Address [address] [place], [place] [phone] Care Team Providers Care Lawn Service Manager Name Role Phone MIRIAN MOSHER Unavailable [phone] Virgilio Meehan Unavailable Unavailable WILFREDO BRODERICK Unavailable [phone] REASON FOR VISIT *General care Encounters Encounter Location Date Provider Diagnosis [facility] [address] [place], [place] [id number] 03/06/2025 WILFREDO BRODERICK Tinea unguium B35.1 ; Acquired 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 ; Atherosclerosis of [place] arteries of extremities with intermittent claudication, bilateral [...] utilizing a #15 blade 03/06/2025 Atherosclerosis of [place] arteries of extremities with intermittent claudication, bilateral [...] pared utilizing a #15 blade Atherosclerosis of [place] ar teries of extremities with intermittent claudication, [...] develop. Provider Name:WILFREDO MARTIN, 05/08/2025 01:50:00 PM, [address] [place] [address], [id number], Progress Notes * MATEUSZ MONROE ADOB:[birth year] (59 yo F)Acc No.[id number]:03/06/2025 Patient: Zay KUHNSALVATOREDIVYAI A Provider: Gavi BRODERICK :1965 A ge:59 Y S ex:Female Date:03/06/2025 Address:[address] [place], [place] [phone] Subjective: * Chief Complaints: * 1 . [...] - L85.1 3 . A therosclerosis of [place] arteries of extremities with intermittent claudication, bilateral [...] a #15 blade 3. A therosclerosis of [place] arteries of extremities with intermittent claudication, bilateral [...] of KINA BRODERICK DPM on 03/28/2025 at 09:07 AM CDT Sign off status: Pending * Provider: Gavi BRODERICK Date: 0 03/06/2025 Generated for Curt small/Ana Maria/Jose on: 0 03/28/2025 09:07 AM CDT History and Physical Notes * [...]
--- OUTSIDE RECORDS SUMMARY | 2025-03-28 09:07 | XMS_ITS | Clinical Summary ---
Author Organization [facility] Address [address] [place] [address] Care Team Providers Care Dough Sheeter Name Role Phone Willian Mendoza MD Primary Care Provider [phone] Allergies Active Allergy Reactions Criticality Noted Date [...] mouth 2 (two) times a day Active uiocbqkroguy-Xc-va on-minerals tablet Take 1 tablet by mouth [...] hyperglycemia, with long-term current use of insulin ([facility]) USE TO TEST BLOOD SUGARS 4 [...] hyperglycemia, with long-term current use of insulin ([facility]) USE FOR TESTING FOUR TIMES A DAY DIRECTED 400 each 3 03/21/20 22 Active pen needle, diabetic (TRUEplus Pen Needle) 31 gauge x 3/16 needle Use to inject insulin up to 5 times daily 450 each 2 03/21/20 22 Active alcohol swabs (BD Alcohol Swabs) pads, medicatedIndicatio ns:Type 2 diabetes mellitus with hyperglycemia, with long-term current use of insulin ([facility]) USE DIRECTED 4 TIMES DAILY 400 [...] 1 tablet (100 mcg total) by mouth community music therapist before breakfast 90 tablet 3 08/07/20 24 Active Farxiga 10 mg tabletIndications: Type 2 diabetes mellitus with hyperglycemia, with long-term current use of insulin ([facility]) TAKE 1 TABLET BY MOUTH DAILY [...] appearing cyst on renal bladder ultrasound at [place] dated 08/26/2022. Diabetes mellitus 02/18/2025 Overview (02/18/2025): Phreesia 06/01/2021 H/O gastric sleeve 01/09/2024 Iron deficiency anemia 08/31/2023 Stage 3b chronic kidney disease 08/31/2023 Hypertension, essential 08/31/2023 Overview (02/18/2025): Phreesia 06/01/2021 Hypomagnesemia 05/07/2023 Acquired hypothyroidism 03/17/2022 Assessment & Plan (08/07/2024 5:51 PM DEVELOPING MACHINE OPERATOR): Chronic, stable. Continue levothyroxine Update TFTs Assessment & Plan (08/10/2023 3:53 PM DEVELOPING MACHINE OPERATOR): Chronic, well-controlled Importance of taking levothyroxine [...] 04/17/2018 Assessment & Plan (08/07/2024 5:51 PM DEVELOPING MACHINE OPERATOR): Chronic, stable Update lipid profile Continue statin therapy Assessment & Plan (08/10/2023 3:53 PM DEVELOPING MACHINE OPERATOR): Chronic, well-controlled Continue statin therapy with Pravachol Assessment & Plan (01/17/2023 1:59 PM CDT): Chronic, well controlled Low fat Low cholesterol diet Exercise Continue statin therapy with Pravachol Assessment & Plan (03/17/2022 9:47 AM CDT): Chronic problem. On statin therapy, no changes. Assessment & Plan (10/28/2021 1:21 PM DEVELOPING MACHINE OPERATOR): Chronic problem. On statin therapy, no [...] Pravachol Assessment & Plan (09/27/2019 9:29 AM DEVELOPING MACHINE OPERATOR): LDL at goal. Trigs elevated. Continue [...] therapy Assessment & Plan (08/07/2018 1:59 PM DEVELOPING MACHINE OPERATOR): At goal on current medications. Assessment [...] dicussed Assessment & Plan (09/27/2019 9:29 AM DEVELOPING MACHINE OPERATOR): Continues to do well with wt [...] adjusted. Assessment & Plan (08/07/2018 1:59 PM DEVELOPING MACHINE OPERATOR): Continues to gain weight. Little attempt at diet and exercise. Reviewed importance of avoiding juice, soda, high fat, high carb foods. Assessment & Plan (10/05/2017 2:49 PM DEVELOPING MACHINE OPERATOR): Diet and exercise were discussed. 1200 Calorie diet advised 45-60 min aerobic / resistance exercise most days of the week recommended. 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 Source: EHR Chronic: N Practice ID: [...] changes. Assessment & Plan (10/28/2021 1:21 PM DEVELOPING MACHINE OPERATOR): Controlled on current medications, no changes. [...] microalbumin Assessment & Plan (09/27/2019 9:29 AM DEVELOPING MACHINE OPERATOR): Controlled on current medications. Continue plan. Assessment & Plan (06/06/2019 2:49 PM CDT): Controlled on current medications. Continue plan. Assessment & Plan (11/01/2018 2:04 PM CDT): Goal blood pressure is less than 140/85 Low salt diet recommended Daily aerobic exercise Continue current meds, including ALYCE-I or ARB Assessment & Plan (08/07/2018 2:00 PM DEVELOPING MACHINE OPERATOR): Controlled on current medications. Assessment & Plan (04/17/2018 2:07 PM CDT): Goal blood pressure is less than 140/85 Low salt diet recommended Daily aerobic exercise Continue current meds, including ALYCE-I or ARB Assessment & Plan (10/05/2017 2:50 PM DEVELOPING MACHINE OPERATOR): Goal blood pressure is less than 140/85 Low salt diet recommended Daily aerobic exercise Continue current meds, including ALYCE-I or ARB Assessment & Plan (07/20/2017 4:18 PM DEVELOPING MACHINE OPERATOR): Controlled on current medications. Assessment & Plan (04/06/2017 4:28 PM CDT): At goal on current medications. Hyperlipidemia 09/19/2012 Overview (11/24/2016): HYPERLIPIDEMIA NEC/NOS Assessment & Plan (06/06/2019 2:49 PM CDT): Lipid panel ordered Assessment & Plan (07/20/2017 4:18 PM DEVELOPING MACHINE OPERATOR): Will check lipid panel Assessment & Plan (04/06/2017 4:28 PM CDT): Check labs and focus on low fat foods Furuncle of trunk 06/28/2012 Overview (11/23/2016): Carbuncle and furuncle of trunk Type 2 diabetes mellitus 06/28/2012 Overview (11/24/2016): DMII WO CMP UNCNTRLD Assessment & Plan (08/07/2024 5:50 PM DEVELOPING MACHINE OPERATOR): Chronic, stable Diet and exercise were emphasized Continue Farxiga and Ozempic Assessment & Plan (02/13/2024 4:29 PM CDT): Chronic, well-controlled. Continue Ozempic 2 mg weekly Farxiga 10 mg Importance of diet and exercise was discussed Assessment & Plan (08/10/2023 3:52 PM DEVELOPING MACHINE OPERATOR): Chronic, well-controlled, with some postprandial hyperglycemia [...] Farxita Assessment & Plan (07/19/2022 1:34 PM DEVELOPING MACHINE OPERATOR): Hba1c was Lab Results Component Value [...] today. Assessment & Plan (10/28/2021 1:43 PM DEVELOPING MACHINE OPERATOR): Chronic problem, not at goal. Increase [...] breakfast Assessment & Plan (09/27/2019 9:31 AM DEVELOPING MACHINE OPERATOR): A1c increased to 7.8. Pattern acceptable [...] goal hba1c is under 7.0 to prevent assisted diabetes complications ( eye , kidney and [...] discussed. Assessment & Plan (08/07/2018 2:02 PM DEVELOPING MACHINE OPERATOR): A1c 8.1. Baseline BG reported at [...] discussed. Assessment & Plan (10/05/2017 2:51 PM DEVELOPING MACHINE OPERATOR): Hba1c was . 9.6 . today, [...] discussed. Assessment & Plan (07/20/2017 4:17 PM DEVELOPING MACHINE OPERATOR): A1c improved 8.7, ~ 2%. Mostly [...] Department Care Team Description 03/05/2025 Orders Only [facility] Diabetes [facility] Endocrinology [address] [place] [address] ProviderIsis MD 02/27/2025 Results Follow-Up [facility] [address] [address] Anthony Castillo MD Comprehensive metabolic panel 02/27/2025 Telephone [facility] [address] [address] Anthony Castillo MD 02/25/2025 Telephone [facility] [address] [address] Anthony Castillo MD MED Supply 02/18/2025 3:40 PM CDT Lab [address] [address] Type 2 diabetes mellitus with hyperglycemia, with long-term current use of insulin (HCC) 02/18/2025 3:15 PM CDT Office Visit [facility] [address] [address] Anthony Casitllo MD Type 2 diabetes mellitus with hyperglycemia, with long-term current use of insulin (HCC) (Primary Dx) 02/06/2025 Telephone [facility] [address] [phone] Anhtony Castillo MD 02/04/2025 Telephone [facility] [address] [address] Anthony Castillo MD certificate of [...] on file Legal Sex Female 10:22 AM DEVELOPING MACHINE OPERATOR Gender Identity Not on file Sexual Orientation Straight 08/07/2024 2: 11 PM DEVELOPING MACHINE OPERATOR Obstetrics History Last Filed Vital Signs [...] ORDERABLES Final Resul t Performing Organization Address [facility] de Phone Number OLGA [address] [employer] [place], [place] [id number] * (ABNORMAL) Albumin Creatinine Ratio, Urine (02/18/2025 [...] ORDERABLES Final Resul t Performing Organization Address [facility] de Phone Number OLGA [address] [place] [address] * (ABNORMAL) Lipid panel (02/18/2025 4:02 PM [...] BLOOD ORDERABLES Final Resul t OLGA HORNER [address] [place] [address] * (ABNORMAL) Comprehensive metabolic panel (02/18/2025 4:02 [...] PM CDT 02/18/2025 7:38 PM CDT Result [facility] us Anthony Castillo MD LAB BLOOD ORDERABLES Final Resul t [facility] [address] [place] [address] * (ABNORMAL) POCT hemoglobin A1c (02/18/2025 3:13 PM CDT) Hemoglobin A1C, POC 6.6(A) 4.0 - 5.6 % Comment:None Capillary blood 02/18/2025 3 :13 PM CDT us Anthony Castillo MD POINT [...] - Final from Last 3 Months Insurance UHC MEDICARE ADVANTAGE Care Teams Dough Sheeter Relationship Specialty Start Date End Date Willian Mendoza MD PCP - General 02/18/16
--- OUTSIDE RECORDS SUMMARY | 2025-03-28 09:07 | XMS_ITS | Encounter Summary ---
Author Organization [facility] Address [facility] [place] [address] Care Team Providers Care Grated Cheese Maker Name Role Phone Alexis Thurman MD Unavailable [phone] Cee Liu APRN, NP-C Unavailable Virgilio Meehan DO Primary Care Provider [phone] Mame Osborn MD Unavailable [phone] Encounter Details Date Type Department Care Team (Late Contact Info) Description 12/21/2022 Abstract [facility] [address] [place] [address] Naheed Arzola MD [address] [place] [address] Social History Tobacco Use Types Packs/Day Years [...] 05/12/2025 1:30 PM CDT Office Visit [facility] eld [address] [place] [address] Cee Liu APRN, ELECTRICAL CONTROLS TECHNICIAN-C [address] [address] documented as of this encounter Visit Diagnoses Not on filedocumented in this encounter Care Teams Grated Cheese Maker Relationship Specialty Start Date End Date Virgilio Meehan DO [address] [place] [address] PCP - General FAMILY PRACTICE 09/08/22 Alexis Thurman MD [address] [place] [address] [place] District Manager In Training CARDIOVASCULAR DISEASE 09/14/18 04/01/24 Cee Liu APRN, ELECTRICAL CONTROLS TECHNICIAN-C [address] [address] NURSE PRACTITIONER 05/27/22 Mame Osborn MD [address] [place] [address] INTERVENTIONAL CARDIOLOGY 05/10/24 documented as of this encounter
--- OUTSIDE RECORDS SUMMARY | 2025-03-28 09:07 | XMS_ITS | Encounter Summary ---
Author Organization [facility] Address [facility] [place] [address] Care Team Providers Care Steward/Stewardess Chief Cargo Vessel Name Role Phone Alexis Thurman MD Unavailable [phone] Willian Mendoza MD Primary Care Provider [phone] Cee Liu APRN, COLLAR PADDER BLINDSTITCH-C Unavailable Virgilio Meehan DO Primary Care Provider [phone] Mame Osborn MD Unavailable [phone] Encounter Details Date Type Department Care Team (Late st Contact Info) Description 10/12/2018 Abstract [facility] [address] [place] [address] Abstract, Doc [facility] Social History [...] 05/12/2025 1:30 PM CDT [facility] [address] [place] [address] Cee Liu APRN, COLLAR PADDER BLINDSTITCH-C [address] [facility] [address] [place] [address] documented as of this encounter Visit Diagnoses Not on filedocumented in this encounter Care Teams Steward/Stewardess Chief Cargo Vessel Relationship Specialty Start Date End Date Willian Mendoza MD [address] [place] [address] PCP - General INTERNAL MEDICINE 09/14/18 09/07/22 Virgilio Meehan DO [address] [place] [address] PCP - General FAMILY PRACTICE 09/08/22 Alexis Thurman MD [address] [place] [address] [place] Assistant Loan Processor CARDIOVASCULAR DISEASE 09/14/18 04/01/24 Cee Liu APRN, COLLAR PADDER BLINDSTITCH-C [address] [facility] [address] [place] [address] NURSE PRACTITIONER 05/27/22 Mame Osborn MD [address] [place], [place] [phone] INTERVENTIONAL CARDIOLOGY 05/10/24 documented as of this encounter
--- OUTSIDE RECORDS SUMMARY | 2025-03-28 09:07 | XMS_ITS | Encounter Summary ---
Author Organization [facility] Address [facility] [place] [address] Care Team Providers Care Roadability Machine Operator Name Role Phone Alexis Thurman MD Unavailable Cee Liu APRN, NP-C Unavailable Virgilio Meehan DO Primary Care Provider Mame Osborn MD Unavailable [phone] Encounter Details Date Type Department Care Team (Late Contact Info) Description 09/23/2022 Abstract [facility] [address] [place] [phone] Alexis Thurman MD [address] [place] [address] Social History Tobacco Use Types [...] Coronavirus/COVID-19? No / Unsure 09/08/2022 8:48 AM FLOORING SALES MANAGER documented as of this encounter Plan of Treatment Upcoming Encounters Date Type Department Care Team (Late Contact Info) Description 05/12/2025 1:30 PM CDT Office Visit [facility] [address] [place] [address] Cee Liu APRN, QUILL BUNCHER AND SORTER-C [address] [facility] [address] [place] [phone] documented as of this encounter Visit Diagnoses Not on filedocumented in this encounter Care Teams Roadability Machine Operator Relationship Specialty Start Date End Date Virgilio Meehan DO [address] [place] [address] PCP - General FAMILY PRACTICE 09/08/22 Alexis Thurman MD [address] [place] [address] [place] Plant Operator/Shift Supervisor CARDIOVASCULAR DISEASE 09/14/18 04/01/24 Cee Liu APRN, QUILL BUNCHER AND SORTER-C [address] [facility] [address] [phone] NURSE PRACTITIONER 05/27/22 Mame Osborn MD [address] [place] [address] INTERVENTIONAL CARDIOLOGY 05/10/24 documented as of this encounter
--- OUTSIDE RECORDS SUMMARY | 2025-03-28 09:07 | XMS_ITS | Encounter Summary ---
Author Organization [facility] Address [facility] [place] [address] Care Team Providers Care Pumper Hand Name Role Phone Alexis Thurman MD Unavailable [phone] Willian Mendoza MD Primary Care Provider [phone] Cee Liu APRN, ASSAYER-C Unavailable Virgilio Meehan DO Primary Care Provider [phone] Mame Osborn MD Unavailable [phone] Encounter Details Date Type Department Care Team (Late st Contact Info) Description 04/07/2021 Abstract [facility] [address] [place] [address] [place] [address] [place] [id number] Social History Tobacco Use Types Packs/Day Years [...] 05/12/2025 1:30 PM CDT Office Visit [facility] el [address] [place] [address] Cee Liu APRN, ASSAYER-C [address] [phone] documented as of this encounter Visit Diagnoses Not on filedocumented in this encounter Care Teams Pumper Hand Relationship Specialty Start Date End Date Willian Mendoza MD [address] [place] [address] PCP - General INTERNAL MEDICINE 09/14/18 09/07/22 Virgilio Meehan DO [address] [place] [address] PCP - General FAMILY PRACTICE 09/08/22 Alexis Thurman MD [address] [place] [address] [place] Repair Service Clerk CARDIOVASCULAR DISEASE 09/14/18 04/01/24 Cee Liu APRN, ASSAYER-C [address] [phone] NURSE PRACTITIONER 05/27/22 Mame Osborn MD [address] [place] [address] INTERVENTIONAL CARDIOLOGY 05/10/24 documented as of this encounter
--- OUTSIDE RECORDS SUMMARY | 2025-03-28 09:07 | XMS_ITS | Encounter Summary ---
Author Organization [facility] Address [facility] [place] [address] Care Team Providers Care Wax Blender Name Role Phone Alexis Thurman MD Unavailable [phone] Willian Mendoza MD Primary Care Provider [phone] Cee Liu APRN, SPECIAL EDUCATION ADMINISTRATOR-C Unavailable Virgilio Meehan DO Primary Care Provider [phone] Mame Osborn MD Unavailable [phone] Encounter Details Date Type Department Care Team (Late st Contact Info) Description 11/04/2017 Abstract [facility] [address] [place] [address] , Generic ConversionMD Social History Tobacco Use [...] Description 05/12/2025 1:30 PM CDT Office Visit [facility] eld [address] [place] [address] Cee Liu, ANGEL, SPECIAL EDUCATION ADMINISTRATOR-C [address] [facility] [address] [place] [address] documented as of this encounter Visit Diagnoses Not on filedocumented in this encounter Care Teams Wax Blender Relationship Specialty Start Date End Date Willian Mendoza MD [address] [place] [address] PCP - General INTERNAL MEDICINE 09/14/18 09/07/22 Virgilio Meehan DO [address] [place] [address] PCP - General FAMILY PRACTICE 09/08/22 Alexis Thurman MD [address] [place] [address] [place] Mutuel Machine Operator CARDIOVASCULAR DISEASE 09/14/18 04/01/24 Cee Liu, MERCHANDISE APPRAISER, SPECIAL EDUCATION ADMINISTRATOR-C [address] [facility] [address] [place] [address] NURSE PRACTITIONER 05/27/22 Mame Osborn MD [address] [place] [address] INTERVENTIONAL CARDIOLOGY 05/10/24 documented as of this encounter
--- OUTSIDE RECORDS SUMMARY | 2025-03-28 09:07 | XMS_ITS | Encounter Summary ---
Author Organization [facility] Address [facility] [place] [address] Care Team Providers Care President Finance Company Name Role Phone Alexis Thurman MD Unavailable [phone] Willian Mendoza MD Primary Care Provider [phone] Cee Liu APRN, VP CORPORATE DEVELOPMENT-C Unavailable Virgilio Meehan DO Primary Care Provider [phone] Mame Osborn MD Unavailable [phone] Encounter Details Date Type Department Care Team (Late st Contact Info) Description 07/04/2022 Abstract [facility] [address] [place] [address] Alexis Thurman MD [address] [place] [phone] Social History Tobacco Use Types Packs/Day Years [...] Coronavirus/COVID-19? No / Unsure 06/29/2022 5:44 AM VAMP MAKER documented as of this encounter Plan of Treatment Upcoming Encounters Date Type Department Care Team (Late st Contact Info) Description 05/12/2025 1:30 PM CDT Office Visit [facility] eld [address] [place] [address] Cee Liu APRN, VP CORPORATE DEVELOPMENT-C [address] [facility] [place] [place] [address] [place] [address] documented as of this encounter [...] on filedocumented in this encounter Care Teams President Finance Company Relationship Specialty Start Date End Date Willian Mendoza MD [address] [place] [address] PCP - General INTERNAL MEDICINE 09/14/18 09/07/22 Virgilio Meehan DO [address] [place] [address] PCP - General FAMILY PRACTICE 09/08/22 Alexis Thurman MD [address] [place] [address] [employer] Heavy Equipment Sales Associate CARDIOVASCULAR DISEASE 09/14/18 04/01/24 Cee Liu APRN, VP CORPORATE DEVELOPMENT-C [address] [facility] [place] [place] [address] [place] [address] NURSE PRACTITIONER 05/27/22 Mame Osborn MD [address] [place] [address] INTERVENTIONAL CARDIOLOGY 05/10/24 documented as of this encounter
--- OUTSIDE RECORDS SUMMARY | 2025-03-28 09:07 | XMS_ITS | Encounter Summary ---
Author Organization [facility] Address [facility] [place] [address] Care Team Providers Care Boiler Operator Name Role Phone Alexis Thurman MD Unavailable [phone] Willian Mendoza MD Primary Care Provider [phone] Cee Liu APRN, MEDICAL BILLING CLERK-C Unavailable Virgilio Meehan DO Primary Care Provider [phone] Mame Osborn MD Unavailable [phone] Encounter Details Date Type Department Care Team (Late st Contact Info) Description 06/24/2022 Hospital Orders Only [employer] Loader Pre/Post [address] [place] [address] Alexis Thurman MD [address] [place] [address] Social History Tobacco Use Types [...] Description 05/12/2025 1:30 PM CDT Office Visit [facility] el [address] [place] [address] Cee Liu APRN, MEDICAL BILLING CLERK-C [address] [facility] [address] [address] documented as of this encounter Visit Diagnoses Not on filedocumented in this encounter Care Teams Boiler Operator Relationship Specialty Start Date End Date Willian Mendoza MD [address] [place] [address] PCP - General INTERNAL MEDICINE 09/14/18 09/07/22 Virgilio Meehan DO [address] [place] [address] PCP - General FAMILY PRACTICE 09/08/22 Alexis Thurman MD [address] [place] [address] [place] Stove Mechanic CARDIOVASCULAR DISEASE 09/14/18 04/01/24 Cee Liu APRN, MEDICAL BILLING CLERK-C [address] [phone] NURSE PRACTITIONER 05/27/22 Mame Osborn MD [address] [place], [place] [phone] INTERVENTIONAL CARDIOLOGY 05/10/24 documented as of this encounter
[2025-03-28 09:32] VITALS: BP 106/67; PULSE 68; RESP 14; TEMP 36.6; O2SAT 98; BMI 35.5
[2025-03-28 09:40] LABS: Cholesterol 194 mg/dL (0-200); HDL Direct 68 mg/dL; Magnesium 1.4 mg/dL (1.6-2.3); Triglycerides 144 mg/dL (<150)
[2025-03-28] MEDS: MAGNESIUM SULFATE IVPB (09:47)
[2025-03-28] MEDS: SODIUM CHLORIDE 0.9% IVPB (09:47)
[2025-03-28] MEDS: CYANOCOBALAMIN INJ 1,000 MCG/ML VIAL 1000 MCG IM (09:48)
[2025-03-28 12:49] VITALS: BP 112/67; PULSE 68; RESP 16
--- NOTE | 2025-03-28 12:50 | PC.NURSE ---
Tolerated Magnesium infusion and Vitamin B12 injection well.
== END 2025-03-28 09:00 | disposition home or self-care (01) ==
PROVIDERS: PCP Family Medicine; Visit Provider Nurse Practitioner Family
DX: E83.42 Hypomagnesemia (principal); D51.9 Vitamin B12 deficiency anemia, unspecified; R74.01 Elevation of levels of liver transaminase levels; N18.30 Chronic kidney disease, stage 3 unspecified
CPT/HCPCS: 36415; 80061; 83735; 96365; 96366; 96372; J3420; J3475; J7050

== ENCOUNTER 2025-04-07 09:47 | Outpatient (RCR) | payer MEDICARE, MEDICAID, SELFPAY ==
--- NOTE | 2025-04-07 10:59 | OPREHPOC ---
Outpatient Therapy Plan of Care This is a Multidisciplinary Plan of Care that may contain components documented by all disciplines (PT, OT, and ST.) PT Problem 1 PT Problem #1 Knowledge Deficit PT Goal 1 Goal / Goal Update Independent and compliant with HEP. Target Visit 2 PT Problem 2 PT Problem #2 Impaired Strength PT Goal 1 Goal / Goal Update Pt to improve bilat hip flexion strength to 4+/5. Pt to improve bilat hip abduction strength to 5/5. Pt to improve bilat knee flexion strength to 5/5. Pt to improve bilat ankle/foot strength to 5/5. Target Visit 12 PT Problem 3 PT Problem #3 Impaired Functional Mobility PT Goal 1 Goal / Goal Update Pt to report 20% reduction in perceived disability on LEFS. Pt to report being able to stand/walk for more than 30 minutes without needing to rest due to R ankle/foot pain. Target Visit 12
--- NOTE | 2025-04-07 10:59 | PTOPEVAL1 ---
Assessment and note entered by Christi Miramontes, PT Evaluation Information Assessment Status Evaluation ICD-10 Condition Codes (PT) Pain in right ankle and joints of right foot M25. 571 Subjective Information Pt reports her R ankle issues have been going on for years. She saw a line haul truck driver who told her she has a foot deformity. Pt reports she broke her leg in the 6th grade but she doesn't think that caused her deformity. She saw Dr. Montano who told her that surgery is an option but not very realistic and that she should try PT first to help with her flexibility. Pt reports she walks on the outside of her R foot despite using shoe inserts and that she has pain at rest that worsens the more she's on her foot. 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 Pt reports walking worsens her pain and that she can barely walk around [employer] and eventually has to use the motorized carts. She also has difficulty climbing stairs even when using hand rails. She also notes that she typically falls a couple times per year, the most recent fall being a couple months ago. Reported Pain Level Pain Score 4: Self Report Assessment PT Clinical Summary Mrs. Stone is a 59 yo female who presents for skilled PT evaluation for R foot/ankle deformity. She presents with R ankle pain and significant impairments in R ankle AROM leading to gait deficits and difficulty with functional tasks such as ambulating and stair climbing. She will benefit from skilled PT intervention to address R ankle/foot flexibility, LE strengthening and gait deficits to reduce pain and improve functional performance. Plan of Care Interventions Electrical Stimulation,Gait Training,Hot Pack/Cold Pack,Manual Therapy,Neuro Re-education,Patient/ Caregiver Education,Therapeutic Activities, Therapeutic Exercise,Self-Care/Home Management PT Services Indicated Yes Treatment Frequency and 2x/week for 12 visits Duration These treatments will address the objective and functional deficits as defined above. The patient will be advanced safely and appropriately in order for the patient to progress towards his/her prior level of function. Additional exercises will be introduced and as well as a comprehensive home exercise program upon discharge, if needed, ?to ensure carryover of functional gains achieved in the clinic. This treatment plan has been reviewed and agreement upon by the patient.
== END 2025-07-06 23:59 | disposition home or self-care (01) ==
LOC: CHSPT 09:47
PROVIDERS: PCP Family Medicine; Visit Provider Orthopaedic Surgery
DX: M25.571 Pain in right ankle and joints of right foot (principal)
CPT/HCPCS: 97110; 97161

== ENCOUNTER 2025-05-26 12:12 | Outpatient (CLI) | payer MEDICARE, SELFPAY ==
[2025-05-26 12:58] LABS: Iron 125 ug/dL (37-170)
[2025-05-26 13:07] LABS: Percent Iron Saturation 57 % (20-50)
--- OUTSIDE RECORDS SUMMARY | 2025-05-26 13:16 | XMS_ITS | Encounter Summary ---
Author Organization [facility] Address [facility] [place] [address] Care Team Providers Care Senior Regulatory Affairs Specialist Name Role Phone Alexis Thurman MD Unavailable Cee Liu APRN, NP-C Unavailable Virgilio Meehan DO Primary Care Provider Mame Osborn MD Unavailable [phone] Encounter Details Date Type Department Care Team (Late st Contact Info) Description 09/23/2022 Abstract [facility] [address] [place] [id number] Alexis Thurman MD [address] [place] [address] Social History Tobacco Use Types [...] Coronavirus/COVID-19? No / Unsure 09/08/2022 8:48 AM SERVICE ORDER CLERK documented as of this encounter Plan of Treatment Not on file documented as of this encounter Visit Diagnoses Not on filedocumented in this encounter Care Teams Senior Regulatory Affairs Specialist Relationship Specialty Start Date End Date BusVirgilio maxwell DO [address] [place] [address] PCP - General FAMILY PRACTICE 09/08/22 Alexis Thurman MD [address] [place] [address] [place] [employer]ain CARDIOVASCULAR DISEASE 09/14/18 04/01/24 Cee Liu, SENIOR GENETIC COUNSELOR, MARINE GEOLOGIST-C [address] [facility] [address] [place] [address] NURSE PRACTITIONER 05/27/22 Mame Osborn MD [address] [place] [address] INTERVENTIONAL CARDIOLOGY 05/10/24 documented as of this encounter
--- OUTSIDE RECORDS SUMMARY | 2025-05-26 13:16 | XMS_ITS | Encounter Summary ---
Author Organization [facility] Address [facility] [place] [address] Care Team Providers Care Emerging Solutions Executive Name Role Phone Alexis Thurman MD Unavailable [phone] Willian Mendoza MD Primary Care Provider [phone] Cee Liu APRN, ENT CONSULTANT-C Unavailable Virgilio Meehan DO Primary Care Provider [phone] Mame Osborn MD Unavailable [phone] Encounter Details Date Type Department Care Team (Late st Contact Info) Description 10/12/2018 Abstract [facility] [address] [place] [address] Abstract, Doc [facility] Social History [...] on filedocumented in this encounter Care Teams Emerging Solutions Executive Relationship Specialty Start Date End Date Willian Mendoza MD [address] [place] [address] PCP - General INTERNAL MEDICINE 09/14/18 09/07/22 Virgilio Meehan DO [address] [place] [address] PCP - General FAMILY PRACTICE 09/08/22 Alexis Thurman MD [address] [place] [address] [place] [employer]iler Erector CARDIOVASCULAR DISEASE 09/14/18 04/01/24 Cee Liu APRN, ENT CONSULTANT-C [address] [facility] [address] [place] [address] NURSE PRACTITIONER 05/27/22 Mame Osborn MD [address] [place] [address] INTERVENTIONAL CARDIOLOGY 05/10/24 documented as of this encounter
--- OUTSIDE RECORDS SUMMARY | 2025-05-26 13:16 | XMS_ITS | Encounter Summary ---
Author Organization [facility] Address [facility] [place] [address] Care Team Providers Care Rn Manager Name Role Phone Alexis Thurman MD Unavailable Cee Liu APRN, NP-C Unavailable [phone] Virgilio Meehan DO Primary Care Provider Mame Osborn MD Unavailable [phone] Encounter Details Date Type Department Care Team (Late st Contact Info) Description 12/21/2022 Abstract [facility] [address] [place] [address] [place] [address] [place] [address] Social History Tobacco Use Types Packs/Day Years [...] on filedocumented in this encounter Care Teams Rn Manager Relationship Specialty Start Date End Date Virgilio Meehan DO [address] [place] [address] PCP - General FAMILY PRACTICE 09/08/22 Alexis Thurman MD [address] [place] [address] [employer] CARDIOVASCULAR DISEASE 09/14/18 04/01/24 Cee Liu, DIRECT SUPPORT WORKER, DAY CARE HOME PROVIDER-C [address] [facility] [address] [place] [address] NURSE PRACTITIONER 05/27/22 Mame Osborn MD [address] [place] [address] INTERVENTIONAL CARDIOLOGY 05/10/24 documented as of this encounter
--- OUTSIDE RECORDS SUMMARY | 2025-05-26 13:16 | XMS_ITS | Encounter Summary ---
Author Organization [facility] Address [facility] [place] [address] Care Team Providers Care Kitchenwhere Maker Name Role Phone Alexis Thurman MD Unavailable [phone] Willian Mendoza MD Primary Care Provider [phone] Cee Liu APRN, [employer]ORNE OPERATIONS SUPERINTENDENT-C Unavailable Virgilio Meehan DO Primary Care Provider [phone] Mame Osborn MD Unavailable [phone] Encounter Details Date Type Department Care Team (Late st Contact Info) Description 07/04/2022 Abstract [facility] [address] [place] [address] Alexis Thurman MD [address] [place] [address] Social History Tobacco Use Types Packs/Day Years [...] Coronavirus/COVID-19? No / Unsure 06/29/2022 5:44 AM LIDDER documented as of this encounter Plan of [...] on filedocumented in this encounter Care Teams Kitchenwhere Maker Relationship Specialty Start Date End Date Willian Mendoza MD [address] [place] [phone] PCP - General INTERNAL MEDICINE 09/14/18 09/07/22 Virgilio Meehan DO [address] [place] [address] PCP - General FAMILY PRACTICE 09/08/22 Alexis Thurman MD [address] [place] [address] [facility] Program Lead CARDIOVASCULAR DISEASE 09/14/18 04/01/24 Cee Liu APRN, AIRBORNE OPERATIONS SUPERINTENDENT-C [address] [facility] [address] [place] [address] NURSE PRACTITIONER 05/27/22 Mame Osborn MD [address] [place] [address] INTERVENTIONAL CARDIOLOGY 05/10/24 documented as of this encounter
--- OUTSIDE RECORDS SUMMARY | 2025-05-26 13:16 | XMS_ITS | Encounter Summary ---
Author Organization [facility] Address [facility] [place] [address] Care Team Providers Care Tree Surgeon Helper Name Role Phone Alexis Thurman MD Unavailable [phone] Willian Mendoza MD Primary Care Provider [phone] Cee Liu APRN, IRRIGATIONIST-C Unavailable [phone] Virgilio Meehan DO Primary Care Provider [phone] Mame Osborn MD Unavailable [phone] Encounter Details Date Type Department Care Team (Late st Contact Info) Description 04/07/2021 Abstract [facility] [address] [place] [address] Ella Witt MD [address] [place] [address] Social History Tobacco Use Types Packs/Day Years [...] on filedocumented in this encounter Care Teams Tree Surgeon Helper Relationship Specialty Start Date End Date Willian Mendoza MD [address] [place] [address] PCP - General INTERNAL MEDICINE 09/14/18 09/07/22 Virgilio Meehan DO [address] [place] [address] PCP - General FAMILY PRACTICE 09/08/22 Alexis Thurman MD [address] [place] [address] [place] Hat Marker CARDIOVASCULAR DISEASE 09/14/18 04/01/24 Cee Liu APRN, IRRIGATIONIST-C [address] [facility] [address] [place] [address] NURSE PRACTITIONER 05/27/22 Mame Osborn MD [address] [place] [address] INTERVENTIONAL CARDIOLOGY 05/10/24 documented as of this encounter
--- OUTSIDE RECORDS SUMMARY | 2025-05-26 13:17 | XMS_ITS | Clinical Summary ---
Author Organization [facility] Address [address] [place] [address] Care Team Providers Care Filler Sifter Machine Name Role Phone Willian Mendoza MD Primary Care Provider [phone] Allergies Active Allergy Reactions Criticality Noted Date [...] mouth 2 (two) times a day Active ftrmjxryubfx-Zz-p marva-minerals tablet Take 1 tablet by mouth [...] A DAY 400 each 1 020 Active fluticasone propionate (FLONASE) 50 mcg/actuation nasal spray Active HYDROcodone-aceta minophen (NORCO) 7.5-325 mg per tablet Active ferrous sulfate 325 mg (65 mg [...] daily Active nitrofurantoin (MACRODANTIN) 100 mg capsule 023 Active propranolol LA (INDERAL LA) 60 mg 24 hr capsule 023 Active magnesium hydroxide 600 mg tablet,chewable Take 1 tablet by mouth 2 (two) times a day Active ondansetron ODT (ZOFRAN-ODT) 4 mg disintegrating tablet 024 Active levothyroxine (SYNTHROID) 100 mcg tablet Take 1 tablet (100 mcg total) by mouth early years teacher before breakfast 90 tablet 3 024 Active blood-glucose sensor device Change sensors every 10 days Dx. E11.65 9 each 3 025 Active Ozempic 2 mg/dose (8 mg/3 mL) pen injector injectionIndicati ons:Type 2 diabetes mellitus with hyperglycemia, with long-term current use of insulin (HCC) INJECT SUBCUTANEOUSLY 2 MG EVERY WEEK 9 mL 3 025 Active amitriptyline (ELAVIL) 25 mg tablet 025 Active Farxiga 10 mg tabletIndications :Type 2 diabetes mellitus with hyperglycemia, with long-term current use of insulin ([facility]) TAKE 1 TABLET BY MOUTH DAILY 100 tablet 2 025 Active Farxiga 10 mg tabletIndications :Type 2 diabetes mellitus with hyperglycemia, with long-term current use of insulin ([facility]) TAKE 1 TABLET BY MOUTH DAILY 100 tablet 2 025 2024 Discontinued Active Problems Problem Noted Date Diagnosed Date Abdominal pain in female 02/18/2025 Abdominal pain, LLQ 02/18/2025 Abnormal urinalysis 02/18/2025 Arthritis 02/18/2025 Overview (02/18/2025): Phreesia 06/01/2021 Dysuria 02/18/2025 Gastroesophageal reflux disease 02/18/2025 Overview (02/18/2025): Phreesia 06/01/2021 Glucosuria 02/18/2025 Left flank pain 02/18/2025 Renal cyst, acquired, right 02/18/2025 Overview (02/18/2025): Simple appearing cyst on renal bladder ultrasound at [facility] dated 08/26/2022. Diabetes mellitus 02/18/2025 Overview (02/18/2025): Phreesia 06/01/2021 H/O gastric sleeve 01/09/2024 Iron deficiency anemia 08/31/2023 Stage 3b chronic kidney disease 08/31/2023 Hypertension, essential 08/31/2023 Overview (02/18/2025): Phreesia 06/01/2021 Hypomagnesemia 05/07/2023 Acquired hypothyroidism 03/17/2022 Assessment & Plan (08/07/2024 5:51 PM RN MIDWIFE): Chronic, stable. Continue levothyroxine Update TFTs Assessment & Plan (08/10/2023 3:53 PM RN MIDWIFE): Chronic, well-controlled Importance of taking levothyroxine on [...] 04/17/2018 Assessment & Plan (08/07/2024 5:51 PM RN MIDWIFE): Chronic, stable Update lipid profile Continue statin therapy Assessment & Plan (08/10/2023 3:53 PM RN MIDWIFE): Chronic, well-controlled Continue statin therapy with Pravachol Assessment & Plan (01/17/2023 1:59 PM CDT): Chronic, well controlled Low fat Low cholesterol diet Exercise Continue statin therapy with Pravachol Assessment & Plan (03/17/2022 9:47 AM CDT): Chronic problem. On statin therapy, no changes. Assessment & Plan (10/28/2021 1:21 PM RN MIDWIFE): Chronic problem. On statin therapy, no changes. [...] Pravachol Assessment & Plan (09/27/2019 9:29 AM RN MIDWIFE): LDL at goal. Trigs elevated. Continue statin [...] therapy Assessment & Plan (08/07/2018 1:59 PM RN MIDWIFE): At goal on current medications. Assessment & [...] dicussed Assessment & Plan (09/27/2019 9:29 AM RN MIDWIFE): Continues to do well with wt loss [...] adjusted. Assessment & Plan (08/07/2018 1:59 PM RN MIDWIFE): Continues to gain weight. Little attempt at diet and exercise. Reviewed importance of avoiding juice, soda, high fat, high carb foods. Assessment & Plan (10/05/2017 2:49 PM RN MIDWIFE): Diet and exercise were discussed. 1200 Calorie diet advised 45-60 min aerobic / resistance exercise most days of the week recommended. Bariatric surgery medically indicated Assessment & Plan (07/20/2017 4:17 PM RN MIDWIFE): Importance of following diet and exercising discussed. 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 Assessment & Plan (10/28/2021 1:21 PM RN MIDWIFE): Controlled on current medications, no changes. Assessment [...] microalbumin Assessment & Plan (09/27/2019 9:29 AM RN MIDWIFE): Controlled on current medications. Continue plan. Assessment & Plan (06/06/2019 2:49 PM CDT): Controlled on current medications. Continue plan. Assessment & Plan (11/01/2018 2:04 PM CDT): Goal blood pressure is less than 140/85 Low salt diet recommended Daily aerobic exercise Continue current meds, including ALYCE-I or ARB Assessment & Plan (08/07/2018 2:00 PM RN MIDWIFE): Controlled on current medications. Assessment & Plan (04/17/2018 2:07 PM CDT): Goal blood pressure is less than 140/85 Low salt diet recommended Daily aerobic exercise Continue current meds, including ALYCE-I or ARB Assessment & Plan (10/05/2017 2:50 PM RN MIDWIFE): Goal blood pressure is less than 140/85 Low salt diet recommended Daily aerobic exercise Continue current meds, including ALYCE-I or ARB Assessment & Plan (07/20/2017 4:18 PM RN MIDWIFE): Controlled on current medications. Assessment & Plan (04/06/2017 4:28 PM CDT): At goal on current medications. Hyperlipidemia 09/19/2012 Overview (11/24/2016): HYPERLIPIDEMIA NEC/NOS Assessment & Plan (06/06/2019 2:49 PM CDT): Lipid panel ordered Assessment & Plan (07/20/2017 4:18 PM RN MIDWIFE): Will check lipid panel Assessment & Plan (04/06/2017 4:28 PM CDT): Check labs and focus on low fat foods Furuncle of trunk 06/28/2012 Overview (11/23/2016): Carbuncle and furuncle of trunk Type 2 diabetes mellitus 06/28/2012 Overview (11/24/2016): DMII WO CMP UNCNTRLD Assessment & Plan (08/07/2024 5:50 PM RN MIDWIFE): Chronic, stable Diet and exercise were emphasized Continue Farxiga and Ozempic Assessment & Plan (02/13/2024 4:29 PM CDT): Chronic, well-controlled. Continue Ozempic 2 mg weekly Farxiga 10 mg Importance of diet and exercise was discussed Assessment & Plan (08/10/2023 3:52 PM RN MIDWIFE): Chronic, well-controlled, with some postprandial hyperglycemia Continue [...] Farxita Assessment & Plan (07/19/2022 1:34 PM RN MIDWIFE): Hba1c was Lab Results Component Value Date [...] today. Assessment & Plan (10/28/2021 1:43 PM RN MIDWIFE): Chronic problem, not at goal. Increase NL [...] breakfast Assessment & Plan (09/27/2019 9:31 AM RN MIDWIFE): A1c increased to 7.8. Pattern acceptable during [...] goal hba1c is under 7.0 to prevent [facility] diabetes complications ( eye , kidney and [...] discussed. Assessment & Plan (08/07/2018 2:02 PM RN MIDWIFE): A1c 8.1. Baseline BG reported at goal. [...] discussed. Assessment & Plan (10/05/2017 2:51 PM RN MIDWIFE): Hba1c was . 9.6 . today, indicating [...] discussed. Assessment & Plan (07/20/2017 4:17 PM RN MIDWIFE): A1c improved 8.7, ~ 2%. Mostly from [...] Department Care Team Description 03/05/2025 Orders Only [facility] Diabetes [facility] Endocrinology [address] [place] [address] ProviderIsis MD 02/27/2025 Results Follow-Up [facility] [address] [address] Anthony Castillo MD Comprehensive metabolic panel 02/27/2025 Telephone [facility] [address] [address] Anthony Castillo MD 02/25/2025 Telephone [facility] [address] [address] Anthony Castillo MD [facility] MED Supply from Last 3 Months Immunizations Immunization Administration [...] on file Legal Sex Female 10:22 AM RN MIDWIFE Gender Identity Not on file Sexual Orientation Straight 08/07/2024 2: 11 PM RN MIDWIFE Obstetrics History Last Filed Vital Signs Vital [...] 8:08 AM CDT from Last 3 Months or Most Recently [...] BLOOD ORDERABLES Final Resul t [facility] [address] Department [place] [address] * (ABNORMAL) Albumin Creatinine Ratio, [...] MD LAB URINE ORDERABLES Final Resul t [facility] [address] Department [place] [address] * (ABNORMAL) Lipid panel (02/18/2025 4:02 PM [...] revised on 2018. Triglycerides 267(H) <=149 mg/dL [facility] Comment: Interpretive Data Ages < or = [...] BLOOD ORDERABLES Final Resul t [facility] [address] Department [place] [address] * (ABNORMAL) POCT hemoglobin A1c (02/18/2025 3:13 PM CDT) Hemoglobin A1C, POC 6.6(A) 4.0 - 5.6 % Comment:None Capillary blood 02/18/2025 3 :13 PM CDT Anthony Castillo MD POINT OF CARE TEST ORDERABLES Fi nal Result * (ABNORMAL) DIABETES EYE EXAM (02/05/2025 8:08 AM CDT) Historical Provider HEALTH MAINTENANCE Edited Result - Final from Last 3 Months or Most Recently Relevant to Health Maintenance Insurance [facility] MEDICARE ADVANTAGE [facility] MEDICARE ADVANTAGE IDPA Care Teams Filler Sifter Machine Relationship Specialty Start Date End Date Willian Mendoza MD PCP - General 02/18/16
--- OUTSIDE RECORDS SUMMARY | 2025-05-26 13:17 | XMS_ITS | Encounter Summary ---
Author Organization [facility] Address [facility] [place] [address] Care Team Providers Care Milker Machine Name Role Phone Alexis Thurman MD Unavailable [phone] Willian Mendoza MD Primary Care Provider [phone] Cee Liu APRN, TAXATION INSPECTOR-C Unavailable Virgilio Meehan DO Primary Care Provider [phone] Mame Osborn MD Unavailable [phone] Encounter Details Date Type Department Care Team (Late st Contact Info) Description 06/24/2022 Hospital Orders Only [facility] [address] [place] [address] Alexis Thurman MD [address] [place] [address] Social History Tobacco Use Types [...] on filedocumented in this encounter Care Teams Milker Machine Relationship Specialty Start Date End Date Willian Mendoza MD [address] [place] [phone] PCP - General INTERNAL MEDICINE 09/14/18 09/07/22 Virgilio Meehan DO [address] [place] [address] PCP - General FAMILY PRACTICE 09/08/22 Alexis Thurman MD [address] [place] [address] Burke Best Worker CARDIOVASCULAR DISEASE 09/14/18 04/01/24 Cee Liu, ANGEL, TAXATION INSPECTOR-C [address] [facility] [address] [place] [address] NURSE PRACTITIONER 05/27/22 Mame Osborn MD [address] [place] [address] INTERVENTIONAL CARDIOLOGY 05/10/24 documented as of this encounter
--- OUTSIDE RECORDS SUMMARY | 2025-05-26 13:17 | XMS_ITS | Encounter Summary ---
Author Organization [facility] Address [facility] [place] [address] Care Team Providers Care Teradata Architect Name Role Phone Cee Liu APRN, WET WHEELER-C Unavailable Virgilio Meehan DO Primary Care Provider [phone] Mame Osborn MD Unavailable [phone] Encounter Details Date Type Department Care Team (Late st Contact Info) Description 11/12/2024 Abstract [facility] [address] [place] [address] [place] [address] [place] [address] Social History Tobacco Use Types Packs/Day Years [...] on filedocumented in this encounter Care Teams Teradata Architect Relationship Specialty Start Date End Date Virgilio Meehan DO [address] [place] [address] PCP - General FAMILY PRACTICE 09/08/22 Cee Liu APRN, WET WHEELER-C [address] [facility] [address] [place] [address] NURSE PRACTITIONER 05/27/22 Mame Osborn MD [address] [place] [address] INTERVENTIONAL CARDIOLOGY 05/10/24 documented as of this encounter
--- OUTSIDE RECORDS SUMMARY | 2025-05-26 13:17 | XMS_ITS | Encounter Summary ---
Author Organization [facility] Address [facility] [place] [address] Care Team Providers Care Food Counter Attendant Name Role Phone Alexis Thurman MD Unavailable [phone] Willian Mendoza MD Primary Care Provider [phone] Cee Liu APRN, VOCATIONAL TEACHER-C Unavailable Virgilio Meehan DO Primary Care Provider [phone] Mame Osborn MD Unavailable [phone] Encounter Details Date Type Department Care Team (Late st Contact Info) Description 11/04/2017 Abstract [facility] [address] [place] [address] , Generic MD Guilherme Social History Tobacco Use Types Packs/Day Years [...] on filedocumented in this encounter Care Teams Food Counter Attendant Relationship Specialty Start Date End Date Willian Mendoza MD [address] [place] [phone] PCP - General INTERNAL MEDICINE 09/14/18 09/07/22 Virgilio Meehan DO [address] [place] [address] PCP - General FAMILY PRACTICE 09/08/22 Alexis Thurman MD [address] [place] [phone] Scott Civil Cadd Technician CARDIOVASCULAR DISEASE 09/14/18 04/01/24 Cee Liu APRN, VOCATIONAL TEACHER-C [address] [facility] [address] [place] [address] NURSE PRACTITIONER 05/27/22 Mame Osborn MD [address] [place] [address] INTERVENTIONAL CARDIOLOGY 05/10/24 documented as of this encounter
--- OUTSIDE RECORDS SUMMARY | 2025-05-26 13:17 | XMS_ITS | Clinical Summary ---
Author Organization [facility] Address [facility] [place] [address] Care Team Providers Care Van Owner Operator Name Role Phone Cee Liu APRN, NP-C Unavailable Virgilio Meehan DO Primary Care Provider Mame Osborn MD Unavailable [phone] Allergies Active Allergy Reactions Criticality Noted Date Comments Amoxicillin-Pot Clavulanate Diarrhea 05/27/2022 Metformin Other (see comment) 05/27/2022 Renal function impairment Pantoprazole Other (see comment) 05/27/2022 Hypomagnesemia Medications CPAP DME DEVICE CPAPCPAP 15nmS92 via IV [id number] -[id number] -[id number] Morrissey 06/14/20 18 Active allopurinol 100 MG tablet Take 1 tablet (100 mg total) by mouth daily. 09/02/19 19 Active Dapagliflozin Propanediol 10 MG Tab Take 1 tablet (10 mg total) by mouth daily. 10/02/19 19 Active levothyroxine 100 MCG tablet Take 1 tablet (100 mcg total) by mouth every morning. 09/02/19 19 Active cyanocobalamin 1000 MCG/ML injection Inject 1 mL (1,000 mcg total) into the muscle monthly. Active fluticasone propionate 50 MCG/ACT nasal spray 2 sprays by Nasal route as needed for Rhinitis or Allergies. As directed 01/31/20 21 Active HYDROcodone-selena taminophen 7.5-325 MG tablet Take 1 tablet by mouth every 4 (four) hours as needed for Pain. PRN 03/11/20 21 Active ferrous sulfate, 65 mg elemental, 325 (65 FE) MG tablet Take 1 tablet (325 mg total) by mouth 2 (two) times daily. Active Multiple Vitamin (MULTIVITAMIN ADULT OR) Take 2 tablets by mouth daily. Active Nutritional Supplements (JUICE PLUS FIBRE OR) Take 1 capsule by mouth 2 (two) times a day. Active Ascorbic Acid (VITAMIN C) 100 MG tablet Take 1 tablet (100 mg total) by mouth daily. Active dicyclomine (BENTYL) 20 MG tablet Take 1 tablet (20 mg total) by mouth as needed. 08/16/20 Active TRUEplus Lancets 28G Misc As directed 06/24/20 22 Active semaglutide (OZEMPIC) 2 mg/dose injection (PEN) Inject 2 mg into the skin once a week. 11/02/19 23 Active losartan (COZAAR) 50 MG tablet Take 1 tablet (50 mg total) by mouth daily. Active Magnesium Hydroxide 600 MG Chew Tab Chew 1 tablet by mouth 2 (two) times daily. Active isosorbide mononitrate ER (IMDUR) 30 MG 24 hr tablet Take 1 tablet (30 mg total) by mouth daily. 90 tablet 3 05/10/20 24 Active propranolol (INDERAL) 20 MG tablet Take 1 tablet (20 mg total) by mouth daily. 03/28/20 25 Active pravastatin (PRAVACHOL) 20 MG tablet Take 1 tablet (20 mg total) by mouth. 11/20/19 11 Discontinu ed(Discont inued by another clinician) propranolol LA 60 MG 24 hr capsule Take 1 capsule (60 mg total) by mouth daily. 10/04/19 19 025 Discontinu ed(Discont inued by another clinician) Cholecalciferol 100 MCG (4000 UT) Cap Take 1 tablet by mouth daily. 025 Discontinu ed(Discont inued by another clinician) CREON [id number] units capsule Take 2 capsules (72,000 units of lipase total) by mouth 3 (three) times daily with meals. 02/01/20 24 025 Discontinu ed(Discont inued by another clinician) cholestyramine (QUESTRAN) 4 GM/DOSE powder Take 1 packet (4 g total) by mouth daily. 04/03/20 24 025 Discontinu ed(Discont inued by another clinician) cefUROXime (CEFTIN) 500 MG tablet Take 500 mg by mouth 2 (two) times daily. For 5 days 025 Discontinu ed(Therapy completed) Active Problems Problem Noted Date Diagnosed Date [...] lipid panel Hypertension associated with diabetes ([facility]) 09/19/2012 Overview (10/22/2018): Overview: Unspecified essential hypertension Last Assessment & Plan: Controlled on current medications. Type 2 diabetes mellitus ([facility]) 06/28 Overview (10/22/2018): Overview: [...] Encounters Date Type Department Care Team Description 05/07/2025 1:30 PM CDT Office Visit [facility] [address] [place] [address] Casper Thurman MD Follow Up 05/07/2025 Travel 05/07/2025 Orders Only [facility] [address] [place] [phone] Casper Thurman MD 05/06/2025 Telephone [facility] [address] [place] [address] Casper Thurman MD Appointment Reminder 05/06/2025 Telephone [facility] [address] [place] [phone] Regulo Fitzpatrick MD Appointment Reminder 03/18/2025 Telephone [facility] [address] [place] [phone] Cee Liu, ANGEL, SHAREHOLDER-C Question from Last 3 Months Family History [...] Sign Reading Time Taken Comments Blood Pressure 102/64 05/07/2025 1:03 PM CDT Pulse 82 05/07/2025 1:03 PM CDT Temperature 36.2 C (97.2 F) 06/29/2022 6:18 AM RN EMPLOYEE HEALTH Respiratory Rate 16 05/07/2025 1:03 PM CDT Oxygen Saturation 97% 05/07/2025 1:03 PM CDT Inhaled Oxygen Concentration - - Weight 104.3 kg (230 lb) 05/07/2025 1:03 PM CDT Height 170.2 cm (5' 7) 05/07/2025 1:03 PM CDT Body Mass Index 36.02 05/07/2025 1:03 PM CDT Plan of Treatment Health Maintenance [...] 06/02/2021 04/07/2021 COVID-19 Vaccine (4 - season) 2025 06/21/2021, 10/03/2020, 09/05/2020 Influenza Adult (#1) 2025 05/11/2021, 04/21/2020, 05/13/2019, Additional history exists DTaP, Tdap and Td Vaccines (6 - Td or Tdap) 04/23/2027 04/23/2017, 07/25/2006, 07/25/2006, Additional history exists Meningococcal B Vaccine Aged Out No l onger eligible based on patient's age to complete this topic Meningococcal Vaccine Aged Out No debbie manav eligible based on patient's age to complete this topic RSV Immunizations Under 20 Months Aged Out No longer eligible based on patient's age to complete this topic Medical Devices Implanted Type Area Slate Splitter Device Identifier Shelf Expiration Date Model / Serial / Lot Stent Ureteral [place] Sci Contour 6fr X 26cm - [id number] Implanted:Qty : 1 on 06/28/2021 by Ryan Vinson MD at [facility] Stent Right: Ureter [employer] [id number] 04/12/2024 [id number] / [id number] Procedures Procedure Name Priority Date/Time Associated Diagnosis Comments ELECTROCARDIOGRAM (NON MIDMARK ACQUIRED) Routine 05/07/2025 12:55 PM CDT Hypertension, essential LIPID PANEL Routine 07/23/2009 12:00 AM RN EMPLOYEE HEALTH from Last 3 Months or Most Recently Relevant to Health Maintenance Results * ELECTROCARDIOGRAM (05/07/2025 12:55 PM CDT) 05/07/2025 12:5 5 PM CDT Narrative [facility] - 05/07/2025 5:24 PM CDT [place] [address] [place] [address] Test Date: 2025-05-07 Pat Name: [facility] Department: 105 Room: Gender: Female Internet Security Specialist: collette : 1965 Requested By: CASPER THURMAN Order Number: [id number] Reading MD: Casper Thurman Measurements Intervals [place] Rate: 82 P: 48 GA: 151 QRS: -33 QRSD: 86 T: 57 QT: 337 QTc: 396 Interpretive Statements SINUS RHYTHM LEFT AXIS DEVIATION LOW QRS VOLTAGE IN PRECORDIAL LEADS BASELINE ARTIFACT Procedure Note Casper Thurman MD - 05/07/[address] [address] Test Date: 2025-05-07 Pat Name: [facility] Department: 105 Room: Gender: Female Internet Security Specialist: lif : 1965 Requested By: CASPER THURMAN Order Number: [id number] Reading : Casper Thurman Measurements Intervals [place] Rate: 82 P: 48 GA: 151 QRS: -33 QRSD: 86 T: 57 QT: 337 QTc: 396 Interpretive Statements SINUS RHYTHM LEFT AXIS DEVIATION LOW QRS VOLTAGE IN PRECORDIAL LEADS BASELINE ARTIFACT Casper Thurman MD PROCEDURES-ORDERABLE NO AILYN RGE Final Result [facility] * LIPID PANEL (07/23/2009 12:00 AM RN EMPLOYEE HEALTH) TRIGLYCERIDES 132 0 - 150 mg/dl [employer]IN[employer] TO EPIC CONVERSION CHOLESTEROL 180 0 - 200 mg/dl [employer] TO EPIC CONVERSION HDL 61 40 - 59 mg/dl [employer] TO EPIC CONVERSION LDL CONVERSION 93 0 - 100 mg/dl [employer] TO EPIC CONVERSION CHOL/HDL RATIO 3.0 <4.0 (Calc) [employer] TO EPIC CONVERSION 07/23/2009 07/23/2009 Narrative [employer]IN[employer] TO EPIC CONVERSION - 07/23/2009 1:31 PM RN EMPLOYEE HEALTH Reviewed by ANGELA Jul 23 2009 1:33:00:000PM us Generic Conversion Md [facility] Final R esult MEDINFORMAT[employer] TO EPIC CONVERSION from Last 3 Months or Most Recently Relevant to Health Maintenance Insurance [place] [address] [place] [address] MEDICARE MEDICAID [facility] MEDICARE Member Subscriber Plan / Payer (Ef fective 2021-Present) Name:Little Stonei Ann Relation to Subscriber:Self Name:Keri Stone Ann Payer ID:[id number] (NAIC) Type:Not on file Address: [place] [phone] MEDICAID Advance Directives * Full Code (Latest Code Status on File) Date Activated Date Inactivated Comments 06/29/2022 9:52 AM 06/29/2022 1:43 PM Care Teams Van Owner Operator Relationship Specialty Start Date End Date Virgilio Meehan DO [address] [place] [address] PCP - General FAMILY PRACTICE 09/08/22 Cee Liu APRN, SHAREHOLDER-C [address] [phone] NURSE PRACTITIONER 05/27/22 Mame Osborn MD [address] [place], [place] [phone] INTERVENTIONAL CARDIOLOGY 05/10/24
[2025-05-26 13:35] LABS: Ferritin 882.00 ng/mL (11.1-264)
== END 2025-05-26 12:13 | disposition home or self-care (01) ==
LOC: CHSLAB 12:13
PROVIDERS: PCP Family Medicine; Visit Provider Nurse Practitioner Family
DX: D50.9 Iron deficiency anemia, unspecified (principal)
CPT/HCPCS: 36415; 82728; 83540; 83550

== ENCOUNTER 2025-06-10 08:37 | Outpatient (CLI) | payer MEDICARE, MEDICAID, SELFPAY ==
--- NOTE | ~2025-06-10 | XR_ITS ---
EXAMINATION: XR lg joint inject/asp w image, XR lg joint inject/asp add DATE: 06/10/2025 10:00 INDICATION: Bilateral hip osteoarthritis with pain TECHNIQUE: A time-out was performed to verify the patient's name, date of , and procedure to be performed. The procedure including the risks, benefits, and alternatives was discussed with the patient. Risks discussed included bleeding and infection. The patient understood the risks and agreed to proceed. Attention was first turned to the right hip. The skin overlying the right hip joint was prepped and draped in usual sterile fashion. Anesthetic was administered with 1% lidocaine subcutaneously. A 22 G needle was advanced under fluoroscopic guidance into the joint. Injection of 1 mL of Omnipaque 240 confirmed intra-articular position of the needle. Subsequently, injectate consisting of 3 mL of a 2:1 mixture of 0.5% Marcaine: 80 mg/mL Depo-Medrol for a total dosage of 80 mg Depo-Medrol was instilled. Washout of contrast was seen confirming intra-articular administration. The needle was removed and the entry site was cleaned and dressed. Attention was then turned to the left hip. The skin overlying the left hip joint was prepped and draped in usual sterile fashion. Anesthetic was administered with 1% lidocaine subcutaneously. A 22 G needle was advanced under fluoroscopic guidance into the joint. Injection of 1 mL of Omnipaque 240 confirmed intra- articular position of the needle. Subsequently, injectate consisting of 3 mL of a 2:1 mixture of 0.5% Marcaine: 80 mg/mL Depo-Medrol for a total dosage of 80 mg Depo-Medrol was instilled. Washout of contrast was seen confirming intra- articular administration. The needle was removed and the entry site was cleaned and dressed. There were no immediate complications. Fluoroscopy exposure time for both injections was 0.2 minutes. The total number of images was 5. Total DAP for both procedures was 1.734 Gycm^2. FINDINGS: Real-time fluoroscopy demonstrates the needle in the right hip joint. Patient's pain prior to procedure:4/10. Patient's pain following the procedure: 0/10. Subsequent images demonstrates the needle in the left joint. Patient's pain prior to procedure:8/10. Patient's pain following the procedure: 0/10. IMPRESSION: 1. Successful right hip joint injection of local anesthetic and steroid with decrease in the patient's presenting pain. 2. Successful left hip joint injection of local anesthetic and steroid with decrease in the patient's presenting pain. Reviewed, dictated and finalized at location A. IMPRESSION: 1. Successful right hip joint injection of local anesthetic and steroid with de crease in the patient's presenting pain. 2. Successful left hip joint injection of local anesthetic and steroid with dec rease in the patient's presenting pain.
--- OUTSIDE RECORDS SUMMARY | 2025-06-10 09:15 | XMS_ITS | Data Portability ---
Author Organization [facility] Address [address] [place] [address] Care Team Providers Care Concession Worker Name Role Phone ELKE JACOBO Primary Care [...] scula r No observ ation record ed. [facility]) [address] [place], [address], 04/10/2022 00:58:08 Result Notes None recorded. Problems Name Problem SNOMED Code Status Onset Date Resolution Date Notes Provider Name and Address Organization Details Recorded Time Menopaus e present [id number] Completed 201503/22/2022 Menopausa l and female climacter ic states;Re corded Elsewhere : No Locati on: [facility] So urce: EHR Chron ic: N Practic e ID: [id number] Bill able Time: 01:00:00 PM Cecilia kelsey [facility] 2 16:06:[address] Concept Completed 201503/22/2022 Encntr for general adult medical exam w/o abnormal findings; Recorded Elsewhere : No Locati on: [facility] So urce: EHR Chron ic: N Practic e ID: [id number] Bill able Time: 03:30:00 PM Cecilia Rangel [facility], [facility] 2 16:06:09 Screenin g for malignan t neoplasm of rectum Completed 201503/22/2022 Encounter for screening for malignant neoplasm of rectum;Re corded Elsewhere : No Locati on: [facility] So urce: EHR Chron ic: N Practic e ID: [id number] Bill able Time: 03:30:00 PM Cecilia Rangel [facility] 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 2 16:06:09 Screenin g for malignan t neoplasm of cervix Completed 201503/22/2022 Encounter for screening for malignant neoplasm of cervix;Re corded Elsewhere : No Locati on: [facility] So urce: EHR Chron ic: N Practic e ID: [id number] Bill able Time: 03:30:00 PM Cecilia Rangel [facility] 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 16:06:09 Problem Notes None recorded. Procedures [...] [facility] 03/23/2022 15:04:53 Imaging Results None recorded. [...] every day in the evening 04/16 completed [facility] ed Elsewher e: No Locat ion: [facility] odify By: hiral Martin ncounter DateTime : 04/05/20 16 12:01:40 PM Not Available Not Available Not Available Neurontin 300 mg capsule take 1 capsule by oral route 3 times every day 04/28 completed Prescrib ed Elsewher e: No Locat ion: [facility] odify By: wendy Martin ncounter DateTime : 03/08/20 16 09:00:54 AM Not Available Not Available Not Available verapamil 40 mg tablet take 1 tablet by oral route 3 times every day 03/23 completed Prescrib ed Elsewher e: Yes Loca tion: Vik amrtin [facility] odify By: [email or web address] trick En counter [...] ed Elsewher e: Yes Loca tion: Vik [facility] odify By: [email or web address] trick En counter DateTime : 01/27/20 16 01:00:00 PM Not Available Not Available Not Available propranol ol 60 mg tablet take 1 tablet by oral route 2 times every day 03/23 completed Prescrib ed Elsewher e: Yes Loca tion: Vik martin [facility] odify By: [email or web address] trick En counter [...] ed Elsewher e: Yes Loca tion: Vik [facility] odify By: [email or web address] trick En counter DateTime : 01/27/20 16 01:00:00 PM Not Available Not Available Not Available glimepiri de 1 mg tablet take 1 tablet by oral route every day 03/23 completed Prescrib ed Elsewher e: Yes Loca tion: [facility] odify By: wendy guevarauntean DateTime : 04/28/20 16 03:30:00 PM Not Available Not Available Not Available levothyro xine 100 mcg tablet active Not Available Not Available Not Available ropinirol e 0.25 mg tablet take 1 tablet by oral route every day q 4-6hrs prn 03/23 completed Prescrib ed Elsewher e: Yes Loca tion: Vik martin [facility] odify By: wendy Martin ncounter DateTime : 04/28/20 16 03:30:00 PM Not Available Not Available Not Available Humalog U-100 Insulin 100 unit/mL subcutane ous solution inject by subcutan eous route per prescrib er's instruct ions. Insulin dosing requires individu alizatio n. 03/23 completed Prescrib ed Elsewher e: Yes Loca tion: Vik martin [facility] odify By: ammauricio Martin ncounter DateTime [...] Elsewher e: No Locat ion: Vik martin [facility] odify By: ammauricio Martin ncounter DateTime : 01/27/20 16 01:00:00 PM Not Available Not Available Not Available ranitidin e 300 mg capsule take 1 capsule by oral route every day at bedtime 03/23 completed Prescrib ed Elsewher e: Yes Loca tion: Vik martin [facility] odify By: [email or web address] trick En counter DateTime : 01/27/20 16 01:00:00 PM Not Available Not Available Not Available pravastat in 20 mg tablet take 2 tablet by oral route every day active Not Available Not Available No t Available Estrace 0.5 mg tablet take 1 tablet by oral route every day 06/01 completed Prescrib ed Elsewher e: No Locat ion: Vik martin [facility] odify By: ammauricio Martin ncounter DateTime : 03/31/20 16 04:45:00 PM Not Available Not Available Not Available cefdinir 300 mg capsule 03/23 completed Not Available Not Available Not Available losartan 100 mg tablet take 1 tablet by oral route every day 03/23 completed Prescrib ed Elsewher e: Yes Loca tion: Vik martin [facility] odify By: [email or web address] trick En counter DateTime : 01/27/20 16 01:00:00 PM Not Available Not Available Not Available fluticaso ne propionat e 50 mcg/actua tion nasal spray,karen pension active Not Available Not Available Not Available nortripty line 50 mg capsule take 1 capsule by oral route 2 times every day 2015 active Prescrib ed Elsewher e: Yes Loca tion: Vik martin [facility] odify By: [email or web address] trick En counter DateTime : 01/27/20 16 01:00:00 PM Not Available Not Available Not Available Estrace 1 mg tablet take 1 tablet by oral route every day 2015 active Prescrib ed Elsewher e: No Locat ion: Vik martin [facility] odify By: tgingminh h Becki ter DateTime : 04/28/20 16 03:30:00 PM Not Available Not Available Not Available progester one micronize d 100 mg capsule take 1 capsule by oral route every day for 10 days in the evening 05/07 completed Prescrib ed Elsewher e: Yes Loca tion: Vik martin [facility] odify By: ammauricio carbone DateTime : 04/28/20 16 03:30:00 PM Not Available Not Available Not Available amoxicill in 875 mg-potass ium clavulana te 125 mg tablet 03/23 completed Not Available Not Available Not Available iron 18 mg tablet 2015 active Prescrib ed Elsewher e: Yes Loca tion: Vik martin [facility] odify By: [email or web address] trick En counter DateTime : 01/27/20 16 01:00:00 PM Not Available Not Available Not Available magnesium 200 mg tablet 2015 active Prescrib ed Elsewher e: Yes Loca tion: Vik martin [facility] odify By: [email or web address] trick En counter DateTime : 01/27/20 16 01:00:00 PM Not Available Not Available Not Available Vitamin D3 25 mcg (1,000 unit) tablet take 1 by Oral route once for 2 months then draw labs 2015 active Prescrib ed Elsewher e: Yes Loca tion: Vik martin [facility] odify By: [email or web address] trick En counter DateTime : 01/27/20 16 01:00:00 PM Not Available Not Available Not Available nitrofura ntoin monohydra te/macroc rystals 100 mg capsule active Not Available Not Available Not Available duloxetin e 20 mg capsule,d elayed release active Not Available Not Available Not Available Cinnamon 500 mg capsule 2015 active Prescrib ed Elsewher e: Yes [facility] By: [email or web address] trick En counter DateTime : 01/27/20 16 01:00:00 PM Not Available Not Available Not Available Lantus Solostar U-100 Insulin 100 unit/mL (3 mL) subcutane ous pen active Not Available Not Available Not Available Tirosint 75 mcg capsule take 1 capsule by oral route every day 04/28 completed Prescrib ed Elsewher e: Yes Loca tion: Robe mario [facility] odify By: amkdavid Martin ncounter DateTime : 01/27/20 16 01:00:00 PM Not Available Not Available Not Available Bydureon 2 mg subcutane ous extended release suspensio n inject by subcutan eous route every 7 days once 03/23 completed Prescrib ed Elsewher e: Yes Loca tion: [facility] odify By: [email or web address] trick En counter [...] Updated DateTime 03/23/2022 168.91 cm 49.1 kg/m2 637977.04 g 136/80 mm[Hg] Cecilia Rangel [facility] 03/23/2022 14:58:40 Social History Question Answer Notes LastModified by Organizat ion Details LastModified Time Tobacco Smoking Status Never Smoker Cecilia Rangel [facility] 03/23/2022 15:03:27 Are You Blind Or [...] not available 03/23/2022 Are you able to walk independently without assistance or assistive devices? YESWOREST Information not available 03/23/2022 Are you able to care for yourself independently? Yes Information not available 03/23/2022 Do you have difficulty dressing, bathing, grooming, or toileting? No Information not available 03/23/2022 What is your exercise level? Occasional Information not available 03/23/2022 Mental Status Question Answer Note LastModified by Organization D etails LastModified Time Do you feel stressed (tense, restless, nervous, or anxious, or unable to sleep at night)? [id number] Information not available 03/23/2022 Family History Relationship [...] Diagnosis SNOMED-CT Code Diagnosis ICD10 Code Diagnosis IMO Codes Diagnosis Note [id number] Kim Tovar [facility] [address] [address] 03/23/2022 14:11:49 03/24/2022 16:35:54 Gynecologic examination [id number] Z01.419 Take Calcium with Vitamin D 12-1500mg daily. Do monthly self breast exams. It is advised to get annual flu shot in the fall and she could obtain at [facility] or [facility] care clinic. If you haven't received the Tdap [...] Labs UTD PCPMammo UTD PCP Inguinal pain [id number] R10.2 Left sided groin pain.Exam difficult due [...] Member ID Guarantor Name 03/24/2022 2 [place] [employer] Keri Stone [id number] Keri Stone 03/24/2022 1 [facility] [id number] Keri Stone 03/24/2022 2 [place] Keri Stone [id number] Keri Stone 03/24/2022 1 [facility] (MEDICARE REPLACEMENT/A DVANTAGE - PPO) Keri Stone [id number] Keri Stone Notes Date Note Type Note Provider Name and Address Organization Details Recorded Time 2 text/html 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 For vaginal bleeding, patient reportshistory of menopause having occurredandno history of post menopausal bleeding. For urinary symptoms, patient reportsno hematuria,no incontinence,no nocturia, andno urinary frequency. For vulva, patient reportsno genital lesionandno vulvar atrophy. For vagina, patient reportsnormal vaginal dischargeandno vaginal atrophy.Breast symptomsFor breast, patient reportsno breast lump,no nipple discharge, andno breast pain.Psychological symptomsFor sexual complaints, patient reportsno sexual complaints. For psychological symptoms, patient reportsno depressionandno anxiety.Preventative measuresFor preventive measures, patient reportsencourage regular mammograms starting age 40,encourage self breast examination,encourage regular exercise,encourage no tobacco use,mammogram performed within the past year, andhistory of recent colonoscopy. Having some pain in left groin/pelvic area.Had recent US but uncertain if any ovarian cysts etc were seen.Groin pain comes/goes.Worse with activity. Kim Tovar, [facility] [address], [place], [address], [facility] 03/24/2022 16:16:15 OBGyn Episode No OBEpisode recorded.
== END 2025-06-10 08:38 | disposition home or self-care (01) ==
PROVIDERS: PCP Family Medicine; Visit Provider Orthopaedic Surgery
DX: M16.11 Unilateral primary osteoarthritis, right hip (principal); M16.12 Unilateral primary osteoarthritis, left hip
CPT/HCPCS: 20610; 77002; J1010; Q9966

== ENCOUNTER 2025-06-26 07:58 | Outpatient (CLI) | payer MEDICARE, MEDICAID, SELFPAY ==
--- OUTSIDE RECORDS SUMMARY | 2010-02-01 09:15 | XMS_ITS | Continuity of Care Document ---
Author Organization [facility] Address [address] [facility] [address] [place] [address] Phone Care Team Providers Care Weighmaster Name Role Phone Nilson Vaughan Unavailable Unavailable Procedures Procedure Date Eye Exam Established Pt Ophthalmoscopy, Subsequent Ophthalmoscopy, Subsequent Eye Exam Established Pt Ophthalmoscopy, Subsequent Ophthalmoscopy, Subsequent Eye Exam & Treatment Ophthalmoscopy, Subsequent Ophthalmoscopy, Subsequent Optic Nerve Topography Optic Nerve Topography Eye Exam Established Pt Ophthalmoscopy, Subsequent Ophthalmoscopy, Subsequent Treatment Of Retinal Lesion Eye Exam & Treatment Ophthalmoscopy, Subsequent Ophthalmoscopy, Subsequent Optic Nerve Topography Optic Nerve Topography Treatment Of Retinal Lesion Office/outpatient Visit, New Ophthalmoscopy Advance Directives Directive Yes / No Effective Date File Name No Information Encounters Encounter Description Practice Location Reason(s) For Visit Diagnoses Date Provider Providers Copied on Encounter [facility], [address], [place], [place], [id number], [place] tel:[phone] [facility] No Information Clement Devine. [address] [place], [address], [place]. tel:[phone] Referring Provider: Nilson Stewart, [address] [place], [address]. tel:[phone] [facility], [address], [place], [place], [id number], [place] tel:[phone] [facility] No Information Clement Devine. [address] [place], [address], [place]. tel:[phone] Referring Provider: Nilson Stewart, [address] [place], [address]. tel:[phone] [facility], [address], [place], [place], [id number], [place] tel:[phone] [facility] No Information Clement Devine. [address] [place], [address], [place]. tel:[phone] Referring Provider: Nilson Stewart, [address] [place], [address]. tel:[phone] [facility], [address], [place], [place], [id number], [place] tel:[phone] [facility] No Information Clement Devine. [address] [place], [address], [place]. [phone] Referring Provider: Nilson Stewart, [address] [place], [address]. tel:[phone] [facility], [address], [place], [place], [id number], [place] tel:[phone] [facility] No Information Clement Devine. [address] [place], [address], [place]. tel:[phone] [facility], [address], [place], [place], [id number], [place] tel:[phone] [facility] No Information Clement Devine. [address] [place], [address], [place]. tel:[phone] Referring Provider: Nilson Stewart, [address] [place], [address]. tel:[phone] Office/outpat ient Visit, [facility], [address], [place], [place], [id number], [place] tel:[phone] [facility] No Information Clement Devine. [address] [place], [address], [place]. tel:[phone] Family History Family Member Type Diagnosis Age At Onset No Information Payers Payer name Insurance type Covered constitution party ID Authorshiloha tiisaiah(s) Medicaid [facility] [id number] Social History Type Description Quantity Date Captured Comments Sex Female Smoking Status No Information Chief Complaint And Reason For Visit No Information Reason For Referral Reason For Referral No Information History Of Present Illness Encounter Date Complaint History Of Prese nt Illness No Information Functional Status Date Functional Assessmen t No Information Instructions Date Instruction Additional Infor mation No Information Assessments Type Assessment Date No Information Patient Care Teams Name Effective Dates (start - stop) Status Members No Information
--- OUTSIDE RECORDS SUMMARY | 2024-08-08 07:10 | XMS_ITS ---
Author Organization [facility] Address [address] [place], [place] [id number] Care Team Providers Care Speech Language Pathologist Travel Name Role Phone MIRIAN MOSHER Unavailable [phone] Virgilio Meehan Unavailable Unavailable ADRIEN CONTRERAS Unavailable [phone] REASON FOR VISIT *General care Encounters Encounter Location Date Provider Diagnosis [address] [id number] 08/08/2024 ADRIEN CONTRERAS Plan Of Treatment Next Appt Details Provider Name:WILFREDO Laura MARTIN, 07/24/2025 11:40:00 AM, [address] [place] [address], [id number], Progress Notes * MATEUSZ MONROE ADOB:[birth year] (59 yo F)Acc No.[id number]:08/08/2024 Patient: Zay KUHNSALVATORE MATEUSZ Brenda Provider: Bryon CONTRERAS :1965 A ge:58 Y S ex:Female Date:08/08/2024 Address:[address] [place], [place] [id number] Subjective: * Chief Complaints: * * General care Billing Information: * Procedure Codes: * Electronic signature of TIM CONTRERAS DPM on 06/26/2025 at 04:56 PM FOOTWEAR SALES ASSOCIATE Sign off status: Pending * Provider: Bryon CONTRERAS Date: 10/09/2023 Generated for Curt small/Ana Maria/eTransmitting on: 08/26/2024 04:56 PM FOOTWEAR SALES ASSOCIATE
--- OUTSIDE RECORDS SUMMARY | 2025-01-02 08:10 | XMS_ITS ---
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 [employer] Name Role Phone MIRIAN MOSHER Unavailable [phone] Virgilio Meehan Unavailable Unavailable WILFREDO BRODERICK Unavailable [phone] REASON FOR VISIT *General care Medications Medication SIG (Take, Route, Frequency, Duration) Notes Start Date End Date Status cholecalciferol 0.025 MG Oral Capsule ORAL cholecalciferol 0.025 MG Ora l CapsuleOriginal Medicationcholecalciferol 0.025 MG Oral Capsule *Reorder from [employer] for eRx and Interaction Alerts* 04/07/20 14 Active 3 ML insulin glargine 100 UNT/ML Pen Injector [Lantus] 3 ML insulin glargine 100 UNT/ML Pen Injector [Lantus]Original Medication3 ML insulin glargine 100 UNT/ML Pen Injector [Lantus] *Reorder from [employer] for eRx and Interaction Alerts* 04/07/20 14 Active Nabumetone 500 MG Oral Tablet ORAL nabumetone 500 MG Oral TabletOriginal Medicationnabumetone 500 MG Oral Tablet *Reorder from [employer] for eRx and Interaction Alerts* 06/29/20 12 Active Losartan Potassium 100 MG Oral Tablet ORAL losartan potassium 100 MG Oral TabletOriginal Medicationlosartan potassium 100 MG Oral Tablet *Reorder from [employer] for eRx and Interaction Alerts* 04/07/20 14 Active Pravastatin Sodium 10 MG Oral Tablet ORAL pravastatin sodium 10 MG Ora l TabletOriginal Medicationpravastatin sodium 10 MG Oral Tablet *Reorder from [facility] for eRx and Interaction Alerts* 04/07/20 14 Active Spironolactone 25 MG Oral Tablet ORAL spironolactone 25 MG Oral TabletOriginal Medicationspironolactone 25 MG Oral Tablet *Reorder from [facility] for eRx and Interaction Alerts* 04/07/20 14 Active Allopurinol 300 MG Oral Tablet ORAL allopurinol 300 MG Oral TabletOriginal Medicationallopurinol 300 MG Oral Tablet *Reorder from [facility] for eRx and Interaction Alerts* 04/07/20 14 Active nortriptyline 50 MG Oral Capsule ORAL nortriptyline 50 MG Oral CapsuleOriginal Medicationnortriptyline 50 MG Oral Capsule *Reorder from [facility] for eRx and Interaction Alerts* 04/07/20 14 Active verapamil hydrochloride 40 MG Oral Tablet ORAL verapamil hydrochloride 40 M G Oral TabletOriginal Medicationverapamil hydrochloride 40 MG Oral Tablet *Reorder from [facility] for eRx and Interaction Alerts* 04/07/20 14 Active propranolol hydrochloride 40 MG Oral Tablet ORAL propranolol hydrochloride 40 MG Oral TabletOriginal Medicationpropranolol hydrochloride 40 MG Oral Tablet *Reorder from [facility] for eRx and Interaction Alerts* 04/07/20 14 Active levothyroxine sodium 0.1 MG Oral Capsule ORAL levothyroxine sodium 0.1 MG Oral CapsuleOriginal Medicationlevothyroxine sodium 0.1 MG Oral Capsule *Reorder from [facility] for eRx and Interaction Alerts* 04/07/20 14 Active esomeprazole 20 MG Injection INTRAVENOUS esomeprazole 20 MG InjectionOriginal Medicationesomeprazole 20 MG Injection *Reorder from [facility] for eRx and Interaction Alerts* 04/07/20 14 Active cinnamon bark 500 MG Oral Capsule ORAL cinnamon bark 500 MG Oral CapsuleOriginal Medicationcinnamon bark 500 MG Oral Capsule *Reorder from [facility] for eRx and Interaction Alerts* 04/07/20 14 Active ciclopirox 80 MG/ML Topical Solution CUTANEOUS ciclopirox 80 MG/ML Topical SolutionOriginal Medicationciclopirox 80 MG/ML Topical Solution *Reorder from [facility] for eRx and Interaction Alerts* 04/20/20 12 Active Social History Social History Additional Details Category Social Info Options Details Migrated Social History Migrated Social History History of tobacco use : , Smoking Status : Never smoked Encounters Encounter Location Date Provider Diagnosis [address] [phone] 01/02/2025 WILFREDO BRODERICK Tinea unguium B35.1 ; Acquired 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 ; Atherosclerosis of [place] arteries of extremities with intermittent claudication, bilateral legs I70.213 ; Pain in right foot M79.671 and Pain in left foot M79.672 Assessments Encounter Date Diagnosis (ICD Code) Assessment Notes Treatment Notes Treatment Clinical Notes Section Notes 01/02/2025 Tinea unguium (ICD-10 - B35.1) Nails 1-5 Bilateral were debrided extensively with nail nippers and emery board, reducing length and girth to pink healthy tissue with any subungual debris and necrotic tissue removed 01/02/2025 Acquired keratosis [keratoderma] palmaris et plantaris (ICD-10 - L85.1) A total of 2 corns or calluses, as described in the note above, were cut and pared utilizing a #15 blade 01/02/2025 Atherosclerosis of [place] arteries of extremities with intermittent claudication, bilateral legs (ICD-10 - I70.213) Check and protect LE bilateral daily. Call if any changes or concerns. 01/02/2025 Pain in right foot (ICD-10 - M79.671) Patient was instructed to try an OTC topical pain reliever/anti-i nflammatory such as Voltaren Gel, Aspercreme with Lidocaine, or Biofreeze etc over the affected areas. Spot test on hand or somewhere visible prior to starting to watch for possible rash/allergic reaction 01/02/2025 Pain in left foot (ICD-10 - M79.672) Plan Of Treatment Treatment Notes Assessment Notes Tinea unguium Nails 1-5 Bilateral were debrided extensively with nail nippers and emery board, reducing length and girth to pink healthy tissue with any subungual debris and necrotic tissue removed Acquired keratosis [keratode rma] palmaris et plantaris A total of 2 corns or calluses, as described in the note above, were cut and pared utilizing a #15 blade Atherosclerosis of [place] ar teries of extremities with intermittent claudication, bilateral legs Check and protect LE bilateral daily. Call if any changes or concerns. Pain in right foot Patient was instruct ed to try an OTC topical pain reliever/anti-inflammatory such as Voltaren Gel, Aspercreme with Lidocaine, or Biofreeze etc over the affected areas. Spot test on hand or somewhere visible prior to starting to watch for possible rash/allergic reaction Next Appt Details Provider Name:WILFREDO MARTIN, 07/24/2025 11:40:00 AM, [address] [place] [address], [phone], History and Physical Notes * HPI (History of Present Illness) Category Sub-Category Detail Notes Category Not es HPI General care Patient presents to the office for diabetic foot care. Patient states that their nails are thickened, elongated and painful. Patient states that it is aggravated by shoe gear. Onset is gradual., Patient denies taking blood thinners., Date last seen by Dr. 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 Patient states that their nails are thickened, elongated and painful. Patient states that it is aggravated by shoe gear. Onset is gradual., Patient denies taking blood thinners., Date last seen by Dr. Meehan was 12/2024., Initials mca. * ROS: G eneral / [...] alance difficulty, confusion, difficulty speaking, dizziness. * Family History: F ather: PRN - Father: :: Hypertension,,known absent , :: Heart Disease < 55 yrs,,known absent , :: Pneumonia,,known absent , :: Stroke,,known absent , :: Diabetes,,known absent , :: Arthritis,,known absent . M other: PRN - Mother: :: Arthritis,,known absent , :: Hypertension,,known absent , :: Heart Disease < 55 yrs,,known absent , :: Gout,,known absent . B rother: SIB - Brother: . S ister: SIB - Sister: . F amily History Verified.. * Social History: M igrated Social History: M igrated Social History: History of tobacco use : , Smoking Status : Never smoked. Social History Verified. * Medications: T akingAllopurinol 300 MG Oral Tablet ORAL , Notes to Pharmacist: allopurinol 300 MG Oral TabletOriginal Medicationallopurinol 300 MG Oral Tablet *Reorder from [employer] for eRx and Interaction Alerts*Spironolactone 25 MG Oral Tablet ORAL , Notes to Pharmacist: spironolactone 25 MG Oral TabletOriginal Medicationspironolactone 25 MG Oral Tablet *Reorder from [employer] for eRx and Interaction Alerts*Nabumetone 500 MG Oral Tablet ORAL , Notes to Pharmacist: nabumetone 500 MG Oral TabletOriginal Medicationnabumetone 500 MG Oral Tablet *Reorder from [facility] for eRx and Interaction Alerts*Pravastatin Sodium 10 MG Oral Tablet ORAL , Notes to Pharmacist: pravastatin sodium 10 MG Oral TabletOriginal Medicationpravastatin sodium 10 MG Oral Tablet *Reorder from [facility] for eRx and Interaction Alerts*Losartan Potassium 100 MG Oral Tablet ORAL , Notes to Pharmacist: losartan potassium 100 MG Oral TabletOriginal Medicationlosartan potassium 100 MG Oral Tablet *Reorder from [facility] for eRx and Interaction Alerts*3 ML insulin glargine 100 UNT/ML Pen Injector [Lantus] , Notes to Pharmacist: 3 ML insulin glargine 100 UNT/ML Pen Injector [Lantus]Original Medication3 ML insulin glargine 100 UNT/ML Pen Injector [Lantus] *Reorder from [facility] for eRx and Interaction Alerts*cholecalciferol 0.025 MG Oral Capsule ORAL , Notes to Pharmacist: cholecalciferol 0.025 MG Oral CapsuleOriginal Medicationcholecalciferol 0.025 MG Oral Capsule *Reorder from [facility] for eRx and Interaction Alerts*ciclopirox 80 MG/ML Topical Solution CUTANEOUS , Notes to Pharmacist: ciclopirox 80 MG/ML Topical SolutionOriginal Medicationciclopirox 80 MG/ML Topical Solution *Reorder from [facility] for eRx and Interaction Alerts*cinnamon bark 500 MG Oral Capsule ORAL , Notes to Pharmacist: cinnamon bark 500 MG Oral CapsuleOriginal Medicationcinnamon bark 500 MG Oral Capsule *Reorder from [facility] for eRx and Interaction Alerts*esomeprazole 20 MG Injection INTRAVENOUS , Notes to Pharmacist: esomeprazole 20 MG InjectionOriginal Medicationesomeprazole 20 MG Injection *Reorder from [facility] for eRx and Interaction Alerts*levothyroxine sodium 0.1 MG Oral Capsule ORAL , Notes to Pharmacist: levothyroxine sodium 0.1 MG Oral CapsuleOriginal Medicationlevothyroxine sodium 0.1 MG Oral Capsule *Reorder from [facility] for eRx and Interaction Alerts*nortriptyline 50 MG Oral Capsule ORAL , Notes to Pharmacist: nortriptyline 50 MG Oral CapsuleOriginal Medicationnortriptyline 50 MG Oral Capsule *Reorder from [facility] for eRx and Interaction Alerts*propranolol hydrochloride 40 MG Oral Tablet ORAL , Notes to Pharmacist: propranolol hydrochloride 40 MG Oral TabletOriginal Medicationpropranolol hydrochloride 40 MG Oral Tablet *Reorder from [facility] for eRx and Interaction Alerts*verapamil hydrochloride 40 MG Oral Tablet ORAL , Notes to Pharmacist: verapamil hydrochloride 40 MG Oral TabletOriginal Medicationverapamil hydrochloride 40 MG Oral Tablet *Reorder from [facility] for eRx and Interaction Alerts*Medication List reviewed and reconciled with the patientTaking Allopurinol 300 MG Oral Tablet ORAL , Notes to Pharmacist: allopurinol 300 MG Oral TabletOriginal Medicationallopurinol 300 MG Oral Tablet *Reorder from [facility] for eRx and Interaction Alerts*Taking Spironolactone 25 MG Oral Tablet ORAL , Notes to Pharmacist: spironolactone 25 MG Oral TabletOriginal Medicationspironolactone 25 MG Oral Tablet *Reorder from [facility] for eRx and Interaction Alerts*Taking Nabumetone 500 MG Oral Tablet ORAL , Notes to Pharmacist: nabumetone 500 MG Oral TabletOriginal Medicationnabumetone 500 MG Oral Tablet *Reorder from [facility] for eRx and Interaction Alerts*Taking Pravastatin Sodium 10 MG Oral Tablet ORAL , Notes to Pharmacist: pravastatin sodium 10 MG Oral TabletOriginal Medicationpravastatin sodium 10 MG Oral Tablet *Reorder from [facility] for eRx and Interaction Alerts*Taking Losartan Potassium 100 MG Oral Tablet ORAL , Notes to Pharmacist: losartan potassium 100 MG Oral TabletOriginal Medicationlosartan potassium 100 MG Oral Tablet *Reorder from [facility] for eRx and Interaction Alerts*Taking 3 ML insulin glargine 100 UNT/ML Pen Injector [Lantus] , Notes to Pharmacist: 3 ML insulin glargine 100 UNT/ML Pen Injector [Lantus]Original Medication3 ML insulin glargine 100 UNT/ML Pen Injector [Lantus] *Reorder from [facility] for eRx and Interaction Alerts*Taking cholecalciferol 0.025 MG Oral Capsule ORAL , Notes to Pharmacist: cholecalciferol 0.025 MG Oral CapsuleOriginal Medicationcholecalciferol 0.025 MG Oral Capsule *Reorder from [facility] for eRx and Interaction Alerts*Taking ciclopirox 80 MG/ML Topical Solution CUTANEOUS , Notes to Pharmacist: ciclopirox 80 MG/ML Topical SolutionOriginal Medicationciclopirox 80 MG/ML Topical Solution *Reorder from [facility] for eRx and Interaction Alerts*Taking cinnamon bark 500 MG Oral Capsule ORAL , Notes to Pharmacist: cinnamon bark 500 MG Oral CapsuleOriginal Medicationcinnamon bark 500 MG Oral Capsule *Reorder from [facility] for eRx and Interaction Alerts*Taking esomeprazole 20 MG Injection INTRAVENOUS , Notes to Pharmacist: esomeprazole 20 MG InjectionOriginal Medicationesomeprazole 20 MG Injection *Reorder from [facility] for eRx and Interaction Alerts*Taking levothyroxine sodium 0.1 MG Oral Capsule ORAL , Notes to Pharmacist: levothyroxine sodium 0.1 MG Oral CapsuleOriginal Medicationlevothyroxine sodium 0.1 MG Oral Capsule *Reorder from [facility] for eRx and Interaction Alerts*Taking nortriptyline 50 MG Oral Capsule ORAL , Notes to Pharmacist: nortriptyline 50 MG Oral CapsuleOriginal Medicationnortriptyline 50 MG Oral Capsule *Reorder from [facility] for eRx and Interaction Alerts*Taking propranolol hydrochloride 40 MG Oral Tablet ORAL , Notes to Pharmacist: propranolol hydrochloride 40 MG Oral TabletOriginal Medicationpropranolol hydrochloride 40 MG Oral Tablet *Reorder from [facility] for eRx and Interaction Alerts*Taking verapamil hydrochloride 40 MG Oral Tablet ORAL , Notes to Pharmacist: verapamil hydrochloride 40 MG Oral TabletOriginal Medicationverapamil hydrochloride 40 MG Oral Tablet *Reorder from [facility] for eRx and Interaction Alerts*Medication List reviewed and reconciled with the patient Objective: * Examination: P hysical Examination: General appearance: [...] with varus. Assessment: * Assessment: 1. T inea unguium - B35.1 (Primary) 2 . A cquired keratosis [keratoderma] palmaris et plantaris - L85.1 3 . A therosclerosis of [place] arteries of extremities with intermittent claudication, bilateral legs - I70.213 4 . P ain in right foot - M79.671 5 . P ain in left foot - M79.672 Plan: * Treatment: 2. A cquired keratosis [keratoderma] palmaris et plantaris Notes: A total of 2 corns or calluses, as described in the note above, were cut and pared utilizing a #15 blade 3. A therosclerosis of [place] arteries of extremities with intermittent claudication, bilateral legs Notes: Check and protect LE bilateral daily. Call if any changes or concerns. 4. P ain in right foot Notes: Patient was instructed to try an OTC topical pain reliever/anti-inflammatory such as Voltaren Gel, Aspercreme with Lidocaine, or Biofreeze etc over the affected areas. Spot test on hand or somewhere visible prior to starting to watch for possible rash/allergic reaction Billing Information: * Visit Code: 05831 Office Visit, Est Pt., Level 3. * Procedure Codes: * Electronic signature of KINA BRODERICK DPM on 06/26/2025 at 04:56 PM [employer] Sign off status: Pending * Provider: Gavi BRODERICK Date: 0 01/02/2025 Generated for Curt small/Ana Maria/Jose on: 1 08/26/2024 04:56 PM [employer]
--- OUTSIDE RECORDS SUMMARY | 2025-03-06 07:30 | XMS_ITS ---
Author Organization [facility] Address [address] [place], [place] [id number] Care Team Providers Care Licensed Life And Health Agent Name Role Phone MIRIAN MOSHER Unavailable [phone] Virgilio Meehan Unavailable Unavailable WILFREDO BRODERICK Unavailable [phone] REASON FOR VISIT *General care Medications Medication SIG (Take, Route, Frequency, Duration) Notes Start Date End Date Status levothyroxine sodium 0.1 MG Oral Capsule ORAL levothyroxine sodium 0.1 MG Oral CapsuleOriginal Medicationlevothyroxine sodium 0.1 MG Oral Capsule *Reorder from [email or web address] for eRx and Interaction Alerts* 04/07/20 14 Active nortriptyline 50 MG Oral Capsule ORAL nortriptyline 50 MG Oral CapsuleOriginal Medicationnortriptyline 50 MG Oral Capsule *Reorder from [email or web address] for eRx and Interaction Alerts* 04/07/20 14 Active ciclopirox 80 MG/ML Topical Solution CUTANEOUS ciclopirox 80 MG/ML Topical SolutionOriginal Medicationciclopirox 80 MG/ML Topical Solution *Reorder from [email or web address] for eRx and Interaction Alerts* 04/20/20 12 Active cinnamon bark 500 MG Oral Capsule ORAL cinnamon bark 500 MG Oral CapsuleOriginal Medicationcinnamon bark 500 MG Oral Capsule *Reorder from [email or web address] for eRx and Interaction Alerts* 04/07/20 14 Active esomeprazole 20 MG Injection INTRAVENOUS esomeprazole 20 MG InjectionOriginal Medicationesomeprazole 20 MG Injection *Reorder from [email or web address] for eRx and Interaction Alerts* 04/07/20 14 Active Nabumetone 500 MG Oral Tablet ORAL nabumetone 500 MG Oral TabletOriginal Medicationnabumetone 500 MG Oral Tablet *Reorder from [facility] for eRx and Interaction Alerts* 06/29/20 12 Active Pravastatin Sodium 10 MG Oral Tablet ORAL pravastatin sodium 10 MG Ora l TabletOriginal Medicationpravastatin sodium 10 MG Oral Tablet *Reorder from [facility] for eRx and Interaction Alerts* 04/07/20 14 Active Losartan Potassium 100 MG Oral Tablet ORAL losartan potassium 100 MG Oral TabletOriginal Medicationlosartan potassium 100 MG Oral Tablet *Reorder from [facility] for eRx and Interaction Alerts* 04/07/20 14 Active 3 ML insulin glargine 100 UNT/ML Pen Injector [Lantus] 3 ML insulin glargine 100 UNT/ML Pen Injector [Lantus]Original Medication3 ML insulin glargine 100 UNT/ML Pen Injector [Lantus] *Reorder from [facility] for eRx and Interaction Alerts* 04/07/20 14 Active cholecalciferol 0.025 MG Oral Capsule ORAL cholecalciferol 0.025 MG Ora l CapsuleOriginal Medicationcholecalciferol 0.025 MG Oral Capsule *Reorder from [facility] for eRx and Interaction Alerts* 04/07/20 14 Active verapamil hydrochloride 40 MG Oral Tablet ORAL verapamil hydrochloride 40 M G Oral TabletOriginal Medicationverapamil hydrochloride 40 MG Oral Tablet *Reorder from [facility] for eRx and Interaction Alerts* 04/07/20 14 Active propranolol hydrochloride 40 MG Oral Tablet ORAL propranolol hydrochloride 40 MG Oral TabletOriginal Medicationpropranolol hydrochloride 40 MG Oral Tablet *Reorder from [facility] for eRx and Interaction Alerts* 04/07/20 14 Active Allopurinol 300 MG Oral Tablet ORAL allopurinol 300 MG Oral TabletOriginal Medicationallopurinol 300 MG Oral Tablet *Reorder from [facility] for eRx and Interaction Alerts* 04/07/20 14 Active Spironolactone 25 MG Oral Tablet ORAL spironolactone 25 MG Oral TabletOriginal Medicationspironolactone 25 MG Oral Tablet *Reorder from [facility] for eRx and Interaction Alerts* 04/07/20 [...] 03/06/2025 Encounters Encounter Location Date Provider Diagnosis [address] [id number] 03/06/2025 WILFREDO BRODERICK Fungal infection of nail B35.1 ; Pain in right toe(s) M79.674 ; Pain in left toe(s) M79.675 and Atherosclerosis of [place] arteries of extremities with intermittent claudication, bilateral legs I70.213 Assessments Encounter Date Diagnosis (ICD Code) Assessment Notes Treatment Notes Treatment Clinical Notes Section Notes 03/06/2025 Fungal infection of nail (ICD-10 - B35.1) 03/06/2025 Pain in right toe(s) (ICD-10 - M79.674) 03/06/2025 Pain in left toe(s) (ICD-10 - M79.675) 03/06/2025 Atherosclerosis of [place] arteries of extremities with intermittent claudication, bilateral legs (ICD-10 - I70.213) Plan Of Treatment Next Appt Details Provider Name:WILFREDO Sanchez EDINSON HERNÁNDEZFATUMA, 07/24/2025 11:40:00 AM, [address] [place] [address], [phone], History and Physical Notes * HPI (History [...] MATEUSZ MONROE ADOB:[birth year] (59 yo F)Acc No.[id number]:03/06/2025 Patient: Zay MATEUSZ SNIDER Provider: Gavi BRODERICK :1965 A ge:59 Y S ex:Female Date:03/06/2025 Address:[address] [facility] Subjective: * Chief Complaints: * * General [...] MG Oral Tablet *[facility] and Interaction [facility]*Spironolactone 25 MG Oral Tablet ORAL , Notes to Pharmacist: spironolactone 25 MG Oral TabletOriginal Medicationspironolactone 25 MG Oral Tablet *Reorder from [facility] for eRx and Interaction Alerts*Nabumetone 500 MG Oral Tablet ORAL , Notes to Pharmacist: nabumetone 500 MG Oral TabletOriginal Medicationnabumetone 500 MG Oral Tablet *[facility] Interaction [facility]*Pravastatin Sodium 10 MG Oral Tablet ORAL , Notes to Pharmacist: pravastatin sodium 10 MG Oral TabletOriginal Medicationpravastatin sodium 10 MG Oral Tablet *[facility] and Interaction Alert[facility]*Losartan Potassium 100 MG Oral Tablet ORAL , Notes to Pharmacist: losartan potassium 100 MG Oral TabletOriginal Medicationlosartan potassium 100 MG Oral Tablet *Reorder from [facility] for eRx and Interaction Alerts*3 ML insulin glargine 100 UNT/ML Pen Injector [Lantus] , Notes to Pharmacist: 3 ML insulin glargine 100 UNT/ML Pen Injector [Lantus]Original Medication3 ML insulin glargine 100 UNT/ML Pen Injector [Lantus] *Reorder from [facility] for eRx and Interaction Alerts*cholecalciferol 0.025 MG Oral Capsule ORAL , Notes to Pharmacist: cholecalciferol 0.025 MG Oral CapsuleOriginal Medicationcholecalciferol 0.025 MG Oral Capsule *Reorder from [facility] for eRx and Interaction Alerts*ciclopirox 80 MG/ML Topical Solution CUTANEOUS , Notes to Pharmacist: ciclopirox 80 MG/ML Topical SolutionOriginal Medicationciclopirox 80 MG/ML Topical Solution *Reorder from [facility] for eRx and Interaction Alerts*cinnamon bark 500 MG Oral Capsule ORAL , Notes to Pharmacist: cinnamon bark 500 MG Oral CapsuleOriginal Medicationcinnamon bark 500 MG Oral Capsule *Reorder from [facility] for eRx and Interaction Alerts*esomeprazole 20 MG Injection INTRAVENOUS , Notes to Pharmacist: esomeprazole 20 MG InjectionOriginal Medicationesomeprazole 20 MG Injection *Reorder from [facility] for eRx and Interaction Alerts*levothyroxine sodium 0.1 MG Oral Capsule ORAL , Notes to Pharmacist: levothyroxine sodium 0.1 MG Oral CapsuleOriginal Medicationlevothyroxine sodium 0.1 MG Oral Capsule *Reorder from [facility] for eRx and Interaction Alerts*nortriptyline 50 MG Oral Capsule ORAL , Notes to Pharmacist: nortriptyline 50 MG Oral CapsuleOriginal Medicationnortriptyline 50 MG Oral Capsule *Reorder from [facility] for eRx and Interaction Alerts*propranolol hydrochloride 40 MG Oral Tablet ORAL , Notes to Pharmacist: propranolol hydrochloride 40 MG Oral TabletOriginal Medicationpropranolol hydrochloride 40 MG Oral Tablet *Reorder from [facility] for eRx and Interaction Alerts*verapamil hydrochloride 40 MG Oral Tablet ORAL , Notes to Pharmacist: verapamil hydrochloride 40 MG Oral TabletOriginal Medicationverapamil hydrochloride 40 MG Oral Tablet *Reorder from [facility] for eRx and Interaction Alerts*Medication List reviewed and reconciled with the patientTaking Allopurinol 300 MG Oral Tablet ORAL , Notes to Pharmacist: allopurinol 300 MG Oral TabletOriginal Medicationallopurinol 300 MG Oral Tablet *Reorder from [facility] for eRx and Interaction Alerts*Taking Spironolactone 25 MG Oral Tablet ORAL , Notes to Pharmacist: spironolactone 25 MG Oral TabletOriginal Medicationspironolactone 25 MG Oral Tablet *Reorder from [facility] for eRx and Interaction Alerts*Taking Nabumetone 500 MG Oral Tablet ORAL , Notes to Pharmacist: nabumetone 500 MG Oral TabletOriginal Medicationnabumetone 500 MG Oral Tablet *Reorder from [facility] for eRx and Interaction Alerts*Taking Pravastatin Sodium 10 MG Oral Tablet ORAL , Notes to Pharmacist: pravastatin sodium 10 MG Oral TabletOriginal Medicationpravastatin sodium 10 MG Oral Tablet *Reorder from [facility] for eRx and Interaction Alerts*Taking Losartan Potassium 100 MG Oral Tablet ORAL , Notes to Pharmacist: losartan potassium 100 MG Oral TabletOriginal Medicationlosartan potassium 100 MG Oral Tablet *Reorder from [facility] for eRx and Interaction Alerts*Taking 3 ML insulin glargine 100 UNT/ML Pen Injector [Lantus] , Notes to Pharmacist: 3 ML insulin glargine 100 UNT/ML Pen Injector [Lantus]Original Medication3 ML insulin glargine 100 UNT/ML Pen Injector [Lantus] *Reorder from [facility] for eRx and Interaction Alerts*Taking cholecalciferol 0.025 MG Oral Capsule ORAL , Notes to Pharmacist: cholecalciferol 0.025 MG Oral CapsuleOriginal Medicationcholecalciferol 0.025 MG Oral Capsule *Reorder from [facility] for eRx and Interaction Alerts*Taking ciclopirox 80 MG/ML Topical Solution CUTANEOUS , Notes to Pharmacist: ciclopirox 80 MG/ML Topical SolutionOriginal Medicationciclopirox 80 MG/ML Topical Solution *Reorder from [facility] for eRx and Interaction Alerts*Taking cinnamon bark 500 MG Oral Capsule ORAL , Notes to Pharmacist: cinnamon bark 500 MG Oral CapsuleOriginal Medicationcinnamon bark 500 MG Oral Capsule *Reorder from [facility] for eRx and Interaction Alerts*Taking esomeprazole 20 MG Injection INTRAVENOUS , Notes to Pharmacist: esomeprazole 20 MG InjectionOriginal Medicationesomeprazole 20 MG Injection *Reorder from [facility] for eRx and Interaction Alerts*Taking levothyroxine sodium 0.1 MG Oral Capsule ORAL , Notes to Pharmacist: levothyroxine sodium 0.1 MG Oral CapsuleOriginal Medicationlevothyroxine sodium 0.1 MG Oral Capsule *Reorder from [facility] for eRx and Interaction Alerts*Taking nortriptyline 50 MG Oral Capsule ORAL , Notes to Pharmacist: nortriptyline 50 MG Oral CapsuleOriginal Medicationnortriptyline 50 MG Oral Capsule *Reorder from [facility] for eRx and Interaction Alerts*Taking propranolol hydrochloride 40 MG Oral Tablet ORAL , Notes to Pharmacist: propranolol hydrochloride 40 MG Oral TabletOriginal Medicationpropranolol hydrochloride 40 MG Oral Tablet *Reorder from [facility] for eRx and Interaction Alerts*Taking verapamil hydrochloride 40 MG Oral Tablet ORAL , Notes to Pharmacist: verapamil hydrochloride 40 MG Oral TabletOriginal Medicationverapamil hydrochloride 40 MG Oral Tablet *Reorder from [facility] for eRx and Interaction Alerts*Medication List [...] - M79.675 4 . A therosclerosis of [place] arteries of extremities with intermittent claudication, bilateral legs - I70.213 ? Plan: * Immunizations: Immunization record has been reviewed and updated. * Procedure Codes: 1 1721 DEBRIDE NAIL, 6 OR MORE, Modifiers: Q8 Billing Information: * Procedure Codes: 59369 DEBRIDE NAIL, 6 OR MORE. Modifiers: Q8 * Electronic signature of KINA BRODERICK DPM on 06/26/2025 at 04:56 PM AUTOMOTIVE GLASS INSTALLER Sign off status: Pending * Provider: Gavi BRODERICK Date: 0 03/06/2025 Generated for Curt small/Ana Maria/Jose on: 1 08/26/2024 04:56 PM AUTOMOTIVE GLASS INSTALLER
--- OUTSIDE RECORDS SUMMARY | 2025-03-06 07:30 | XMS_ITS ---
Author Organization [facility] Address [address] [place], [place] [id number] Care Team Providers Care Freezing Machine Operator Name Role Phone MIRIAN MOSHER Unavailable [phone] Virgilio Meehan Unavailable Unavailable WILFREDO BRODERICK Unavailable [phone] REASON FOR VISIT *General care Encounters Encounter Location Date Provider Diagnosis [facility] [address] [place], [place] [phone] 03/06/2025 WILFREDO BRODERICK Tinea unguium B35.1 ; Acquired 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 ; Atherosclerosis of [place] arteries of extremities with intermittent claudication, bilateral [...] utilizing a #15 blade 03/06/2025 Atherosclerosis of [place] arteries of extremities with intermittent claudication, bilateral [...] pared utilizing a #15 blade Atherosclerosis of [place] ar teries of extremities with intermittent claudication, [...] develop. Provider Name:WILFREDO MARTIN, 07/24/2025 11:40:00 AM, [address] [place] [address], [phone], History and Physical Notes * Examination Category [...] MATEUSZ MONROE ADOB:[birth year] (59 yo F)Acc No.[id number]:03/06/2025 Patient: MATEUSZ ZHU A Provider: Gavi BRODERICK :1965 A ge:59 Y S ex:Female Date:03/06/2025 Address:[address] [place] [address] Subjective: * Chief Complaints: * * General [...] - L85.1 3 . A therosclerosis of [place] arteries of extremities with intermittent claudication, bilateral [...] a #15 blade 3. A therosclerosis of [place] arteries of extremities with intermittent claudication, bilateral [...] of KINA BRODERICK DPM on 06/26/2025 at 04:57 PM RAYON CONER Sign off status: Pending * Provider: Gavi BRODERICK Date: 0 03/06/2025 Generated for Curt small/Ana Maria/Jose on: 1 08/26/2024 04:57 PM RAYON CONER
--- OUTSIDE RECORDS SUMMARY | 2025-05-08 07:50 | XMS_ITS ---
Author Organization [facility] Address [address] [place], [place] [id number] Care Team Providers Care User Experience Manager Name Role Phone MIRIAN MOSHER Unavailable [phone] Virgilio Meehan Unavailable Unavailable WILFREDO BRODERICK Unavailable [phone] Allergies No Known Allergies REASON FOR VISIT *General care Medications Medication SIG (Take, Route, Frequency, Duration) Notes Start Date End Date Status nortriptyline 50 MG Oral Capsule ORAL nortriptyline 50 MG Oral CapsuleOriginal Medicationnortriptyline 50 MG Oral Capsule *Reorder from [employer] for eRx and Interaction Alerts* 04/07/20 14 Active propranolol hydrochloride 40 MG Oral Tablet ORAL propranolol hydrochloride 40 MG Oral TabletOriginal Medicationpropranolol hydrochloride 40 MG Oral Tablet *Reorder from [employer] for eRx and Interaction Alerts* 04/07/20 14 Active verapamil hydrochloride 40 MG Oral Tablet ORAL verapamil hydrochloride 40 M G Oral TabletOriginal Medicationverapamil hydrochloride 40 MG Oral Tablet *Reorder from [employer] for eRx and Interaction Alerts* 04/07/20 14 Active esomeprazole 20 MG Injection INTRAVENOUS esomeprazole 20 MG InjectionOriginal Medicationesomeprazole 20 MG Injection *Reorder from [employer] for eRx and Interaction Alerts* 04/07/20 14 Active levothyroxine sodium 0.1 MG Oral Capsule ORAL levothyroxine sodium 0.1 MG Oral CapsuleOriginal Medicationlevothyroxine sodium 0.1 MG Oral Capsule *Reorder from [employer] for eRx and Interaction Alerts* 04/07/20 14 Active 3 ML insulin glargine 100 UNT/ML Pen Injector [Lantus] 3 ML insulin glargine 100 UNT/ML Pen Injector [Lantus]Original Medication3 ML insulin glargine 100 UNT/ML Pen Injector [Lantus] *Reorder from [facility] for eRx and Interaction Alerts* 04/07/20 14 Active cholecalciferol 0.025 MG Oral Capsule ORAL cholecalciferol 0.025 MG Ora l CapsuleOriginal Medicationcholecalciferol 0.025 MG Oral Capsule *Reorder from [facility] for eRx and Interaction Alerts* 04/07/20 14 Active Losartan Potassium 100 MG Oral Tablet ORAL losartan potassium 100 MG Oral TabletOriginal Medicationlosartan potassium 100 MG Oral Tablet *Reorder from [facility] for eRx and Interaction Alerts* 04/07/20 14 Active ciclopirox 80 MG/ML Topical Solution CUTANEOUS ciclopirox 80 MG/ML Topical SolutionOriginal Medicationciclopirox 80 MG/ML Topical Solution *Reorder from [facility] for eRx and Interaction Alerts* 04/20/20 12 Active cinnamon bark 500 MG Oral Capsule ORAL cinnamon bark 500 MG Oral CapsuleOriginal Medicationcinnamon bark 500 MG Oral Capsule *Reorder from [facility] for eRx and Interaction Alerts* 04/07/20 14 Active Nabumetone 500 MG Oral Tablet ORAL nabumetone 500 MG Oral TabletOriginal Medicationnabumetone 500 MG Oral Tablet *Reorder from [facility] for eRx and Interaction Alerts* 06/29/20 12 Active Allopurinol 300 MG Oral Tablet ORAL allopurinol 300 MG Oral TabletOriginal Medicationallopurinol 300 MG Oral Tablet *Reorder from [facility] for eRx and Interaction Alerts* 04/07/20 14 Active Spironolactone 25 MG Oral Tablet ORAL spironolactone 25 MG Oral TabletOriginal Medicationspironolactone 25 MG Oral Tablet *Reorder from [facility] for eRx and Interaction Alerts* 04/07/20 14 Active Pravastatin Sodium 10 MG Oral Tablet ORAL pravastatin sodium 10 MG Ora l TabletOriginal Medicationpravastatin sodium 10 MG Oral Tablet *Reorder from [facility] for eRx and Interaction Alerts* 04/07/20 [...] 05/08/2025 Encounters Encounter Location Date Provider Diagnosis [address] [id number] 05/08/2025 WILFREDO MEGGAN Tinea unguium B35.1 ; 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 Provider Name:WILFREDO MARTIN, 07/24/2025 11:40:00 AM, [address] [place] [address], [id number], History and Physical Notes * HPI (History [...] MATEUSZ MONROE ADOB:[birth year] (59 yo F)Acc No.[id number]:05/08/2025 Patient: MATEUSZ ZHU A Provider: Gavi BRODERICK :1965 A ge:59 Y S ex:Female Date:05/08/2025 Address:[facility] [address] [place] [id number] Subjective: * Chief Complaints: * * General [...] Medicationallopurinol 300 MG Oral Tablet *Reorder from [facility] for eRx and Interaction Alerts*Spironolactone 25 MG Oral Tablet ORAL , Notes to Pharmacist: spironolactone 25 MG Oral TabletOriginal Medicationspironolactone 25 MG Oral Tablet *Reorder from [facility] for eRx and Interaction Alerts*Nabumetone 500 MG Oral Tablet ORAL , Notes to Pharmacist: nabumetone 500 MG Oral TabletOriginal Medicationnabumetone 500 MG Oral Tablet *Reorder from [facility] for eRx and Interaction Alerts*Pravastatin Sodium 10 MG Oral Tablet ORAL , Notes to Pharmacist: pravastatin sodium 10 MG Oral TabletOriginal Medicationpravastatin sodium 10 MG Oral Tablet *Reorder from [facility] for eRx and Interaction Alerts*Losartan Potassium 100 MG Oral Tablet ORAL , Notes to Pharmacist: losartan potassium 100 MG Oral TabletOriginal Medicationlosartan potassium 100 MG Oral Tablet *Reorder from [facility] for eRx and Interaction Alerts*3 ML insulin glargine 100 UNT/ML Pen Injector [Lantus] , Notes to Pharmacist: 3 ML insulin glargine 100 UNT/ML Pen Injector [Lantus]Original Medication3 ML insulin glargine 100 UNT/ML Pen Injector [Lantus] *Reorder from [facility] for eRx and Interaction Alerts*cholecalciferol 0.025 MG Oral Capsule ORAL , Notes to Pharmacist: cholecalciferol 0.025 MG Oral CapsuleOriginal Medicationcholecalciferol 0.025 MG Oral Capsule *Reorder from [facility] for eRx and Interaction Alerts*ciclopirox 80 MG/ML Topical Solution CUTANEOUS , Notes to Pharmacist: ciclopirox 80 MG/ML Topical SolutionOriginal Medicationciclopirox 80 MG/ML Topical Solution *Reorder from [facility] for eRx and Interaction Alerts*cinnamon bark 500 MG Oral Capsule ORAL , Notes to Pharmacist: cinnamon bark 500 MG Oral CapsuleOriginal Medicationcinnamon bark 500 MG Oral Capsule *Reorder from [facility] for eRx and Interaction Alerts*esomeprazole 20 MG Injection INTRAVENOUS , Notes to Pharmacist: esomeprazole 20 MG InjectionOriginal Medicationesomeprazole 20 MG Injection *Reorder from [facility] for eRx and Interaction Alerts*levothyroxine sodium 0.1 MG Oral Capsule ORAL , Notes to Pharmacist: levothyroxine sodium 0.1 MG Oral CapsuleOriginal Medicationlevothyroxine sodium 0.1 MG Oral Capsule *Reorder from [facility] for eRx and Interaction Alerts*nortriptyline 50 MG Oral Capsule ORAL , Notes to Pharmacist: nortriptyline 50 MG Oral CapsuleOriginal Medicationnortriptyline 50 MG Oral Capsule *Reorder from [facility] for eRx and Interaction Alerts*propranolol hydrochloride 40 MG Oral Tablet ORAL , Notes to Pharmacist: propranolol hydrochloride 40 MG Oral TabletOriginal Medicationpropranolol hydrochloride 40 MG Oral Tablet *Reorder from [facility] for eRx and Interaction Alerts*verapamil hydrochloride 40 MG Oral Tablet ORAL , Notes to Pharmacist: verapamil hydrochloride 40 MG Oral TabletOriginal Medicationverapamil hydrochloride 40 MG Oral Tablet *Reorder from [facility] for eRx and Interaction Alerts*Medication List reviewed and reconciled with the patientTaking Allopurinol 300 MG Oral Tablet ORAL , Notes to Pharmacist: allopurinol 300 MG Oral TabletOriginal Medicationallopurinol 300 MG Oral Tablet *Reorder from [facility] for eRx and Interaction Alerts*Taking Spironolactone 25 MG Oral Tablet ORAL , Notes to Pharmacist: spironolactone 25 MG Oral TabletOriginal Medicationspironolactone 25 MG Oral Tablet *Reorder from [facility] for eRx and Interaction Alerts*Taking Nabumetone 500 MG Oral Tablet ORAL , Notes to Pharmacist: nabumetone 500 MG Oral TabletOriginal Medicationnabumetone 500 MG Oral Tablet *Reorder from [facility] for eRx and Interaction Alerts*Taking Pravastatin Sodium 10 MG Oral Tablet ORAL , Notes to Pharmacist: pravastatin sodium 10 MG Oral TabletOriginal Medicationpravastatin sodium 10 MG Oral Tablet *Reorder from [facility] for eRx and Interaction Alerts*Taking Losartan Potassium 100 MG Oral Tablet ORAL , Notes to Pharmacist: losartan potassium 100 MG Oral TabletOriginal Medicationlosartan potassium 100 MG Oral Tablet *Reorder from [facility] for eRx and Interaction Alerts*Taking 3 ML insulin glargine 100 UNT/ML Pen Injector [Lantus] , Notes to Pharmacist: 3 ML insulin glargine 100 UNT/ML Pen Injector [Lantus]Original Medication3 ML insulin glargine 100 UNT/ML Pen Injector [Lantus] *Reorder from [facility] for eRx and Interaction Alerts*Taking cholecalciferol 0.025 MG Oral Capsule ORAL , Notes to Pharmacist: cholecalciferol 0.025 MG Oral CapsuleOriginal Medicationcholecalciferol 0.025 MG Oral Capsule *Reorder from [facility] for eRx and Interaction Alerts*Taking ciclopirox 80 MG/ML Topical Solution CUTANEOUS , Notes to Pharmacist: ciclopirox 80 MG/ML Topical SolutionOriginal Medicationciclopirox 80 MG/ML Topical Solution *Reorder from [facility] for eRx and Interaction Alerts*Taking cinnamon bark 500 MG Oral Capsule ORAL , Notes to Pharmacist: cinnamon bark 500 MG Oral CapsuleOriginal Medicationcinnamon bark 500 MG Oral Capsule *Reorder from [facility] for eRx and Interaction Alerts*Taking esomeprazole 20 MG Injection INTRAVENOUS , Notes to Pharmacist: esomeprazole 20 MG InjectionOriginal Medicationesomeprazole 20 MG Injection *Reorder from [facility] for eRx and Interaction Alerts*Taking levothyroxine sodium 0.1 MG Oral Capsule ORAL , Notes to Pharmacist: levothyroxine sodium 0.1 MG Oral CapsuleOriginal Medicationlevothyroxine sodium 0.1 MG Oral Capsule *Reorder from [facility] for eRx and Interaction Alerts*Taking nortriptyline 50 MG Oral Capsule ORAL , Notes to Pharmacist: nortriptyline 50 MG Oral CapsuleOriginal Medicationnortriptyline 50 MG Oral Capsule *Reorder from [facility] for eRx and Interaction Alerts*Taking propranolol [...] - L85.1 4 . A therosclerosis of [place] arteries of extremities with intermittent claudication, bilateral [...] a #15 blade 3. A therosclerosis of [place] arteries of extremities with intermittent claudication, bilateral [...] problems develop.) Billing Information: * Visit Code: 81497 Office Visit, Est Pt., Level 3. * Procedure Codes: L1902 AFO ANK GAUNTLT PREFAB W/FIT&ADJ. Modifiers: RT, GA * Electronic signature of KINA BRODERICK DPM on 06/26/2025 at 04:56 PM COMMUNITY HEALTH NAVIGATOR Sign off status: Pending * Provider: Gavi BRODERICK Date: 0 05/08/2025 Generated for Curt small/Ana Maria/Jose on: 08/26/2024 04:56 PM COMMUNITY HEALTH NAVIGATOR
[2025-06-26 08:07] VITALS: BMI 35.9
[2025-06-26] MEDS: MAGNESIUM SULFATE IVPB (08:30)
[2025-06-26] MEDS: SODIUM CHLORIDE 0.9% IVPB (08:30)
[2025-06-26] MEDS: CYANOCOBALAMIN INJ 1,000 MCG/ML VIAL 1000 MCG IM (08:33)
[2025-06-26 09:09] VITALS: BP 111/67; PULSE 68; RESP 14; TEMP 36.4; O2SAT 97
[2025-06-26 11:40] VITALS: BP 112/59; PULSE 68; RESP 14; O2SAT 98
--- NOTE | 2025-06-26 11:41 | PC.NURSE ---
Patient tolerated Magnesium infusion and B12 injection well. SEE MAR/patient care notes.
--- OUTSIDE RECORDS SUMMARY | 2025-06-26 16:57 | XMS_ITS | Encounter Summary ---
Author Organization [facility] Address [facility] [place] [address] Care Team Providers Care Box Toe Cementer Name Role Phone Cee Liu APRN, FITNESS COORDINATOR-C Unavailable Virgilio Meehan DO Primary Care Provider [phone] Mame Osborn MD Unavailable [phone] Encounter Details Date Type Department Care Team (Late st Contact Info) Description 11/12/2024 Abstract [facility] [address] [place] [address] [place] [address] [place] [address] Social History Tobacco Use Types Packs/Day Years [...] on filedocumented in this encounter Care Teams Box Toe Cementer Relationship Specialty Start Date End Date Virgilio Meehan DO [address] [place] [address] PCP - General FAMILY PRACTICE 09/08/22 Cee Liu APRN, FITNESS COORDINATOR-C [address] [facility] [address] [place] [address] NURSE PRACTITIONER 05/27/22 Mame Osborn MD [address] [place] [address] INTERVENTIONAL CARDIOLOGY 05/10/24 documented as of this encounter
--- OUTSIDE RECORDS SUMMARY | 2025-06-26 16:57 | XMS_ITS | Data Portability ---
Author Organization [facility] Address [address] [place] [address] Care Team Providers Care Bedspread Cutter Name Role Phone ELKE JACOBO Primary [...] scula r No observ ation record ed. [employer]) [address] [place], [address], 04/10/2022 00:58:08 Result Notes None recorded. Problems Name Problem SNOMED Code Status Onset Date Resolution Date Notes Provider Name and Address Organization Details Recorded Time Menopaus e present [id number] Completed 201503/22/2022 Menopausa l and female climacter ic states;Re corded Elsewhere : No Locati on: [facility] So urce: EHR Chron ic: N Practic e ID: [id number] Bill able Time: 01:00:00 PM Cecilia kelsey [facility] 2 16:06:[address] Concept Completed 201503/22/2022 Encntr for general adult medical exam w/o abnormal findings; Recorded Elsewhere : No Locati on: [facility] So urce: EHR Chron ic: N Practic e ID: [id number] Bill able Time: 03:30:00 PM Cecilia Rangel [facility], [facility] 2 16:06:09 Screenin g for malignan t neoplasm of rectum Completed 201503/22/2022 Encounter for screening for malignant neoplasm of rectum;Re corded Elsewhere : No Locati on: [facility] So urce: EHR Chron ic: N Practic e ID: [id number] Bill able Time: 03:30:00 PM Cecilia Rangel [facility] 2 16:06:[address] Concept Completed 201503/22/2022 Encntr for crime analyst exam (general) (routine) w/o abn findings; Recorded Elsewhere : No Locati on: [facility] So urce: EHR Chron ic: N Practic e ID: [id number] Bill able Time: 03:30:00 PM Cecilia Rangel [facility] 2 16:06:09 Screenin g for malignan t neoplasm of cervix Completed 201503/22/2022 Encounter for screening for malignant neoplasm of cervix;Re corded Elsewhere : No Locati on: [facility] So urce: EHR Chron ic: N Practic e ID: [id number] Bill able Time: 03:30:00 PM Cecilia Rangel [facility] 2 16:06:09 Congenit al malforma tion [id number] Completed 201503/22/2022 Congenita l anomaly;R ecorded Elsewhere : No Locati on: [facility] So urce: EHR Chron ic: N Practic e ID: [id number] Bill able Time: 03:30:00 PM [facility] 16:06:09 Problem Notes None recorded. Procedures Surgical History Date Name Laterality Status Provider Name and Address Organization Details Recorded Time 08/21/19 19 laparoscopic sleeve gastrectomy completed [facility] 03/23/2022 15:05:08 08/21/19 17 operation on mandible completed [facility] 03/23/2022 15:04:14 insertion of ureteral stent with ureterotomy completed [facility] 03/23/2022 15:03:53 Unlisted px femur/knee completed [facility] 03/23/2022 15:04:37 perinasal sinusotomy completed [facility] 03/23/2022 15:04:43 Carpal tunnel surgery completed [facility] 03/23/2022 15:04:53 Imaging Results [...] every day in the evening 04/16 completed [facility] ed Elsewher e: No Locat ion: [facility] odify By: hiral Martin ncounter DateTime : 04/05/20 16 12:01:40 PM Not Available Not Available Not Available Neurontin 300 mg capsule take 1 capsule by oral route 3 times every day 04/28 completed Prescrib ed Elsewher e: No Locat ion: [facility] odify By: wendy Martin ncounter DateTime : 03/08/20 16 09:00:54 AM Not Available Not Available Not Available verapamil 40 mg tablet take 1 tablet by oral route 3 times every day 03/23 completed Prescrib ed Elsewher e: Yes Loca tion: [facility] odify By: [email or web address] trick En [...] ed Elsewher e: Yes Loca tion: [facility] odify By: [email or web address] trick En counter DateTime : 01/27/20 16 01:00:00 PM Not Available Not Available Not Available propranol ol 60 mg tablet take 1 tablet by oral route 2 times every day 03/23 completed Prescrib ed Elsewher e: Yes Loca tion: [facility] odify By: [email or web address] trick En [...] ed Elsewher e: Yes Loca tion: [facility] odify By: [email or web address] trick En counter DateTime : 01/27/20 16 01:00:00 PM Not Available Not Available Not Available glimepiri de 1 mg tablet take 1 tablet by oral route every day 03/23 completed Prescrib ed Elsewher e: Yes Loca tion: [facility] odify By: wendy guevarauntean DateTime : 04/28/20 16 03:30:00 PM Not Available Not Available Not Available levothyro xine 100 mcg tablet active Not Available Not Available Not Available ropinirol e 0.25 mg tablet take 1 tablet by oral route every day q 4-6hrs prn 03/23 completed Prescrib ed Elsewher e: Yes Loca tion: [facility] odify By: wendy Martin ncounter DateTime : 04/28/20 16 03:30:00 PM Not Available Not Available Not Available Humalog U-100 Insulin 100 unit/mL subcutane ous solution inject by subcutan eous route per prescrib er's instruct ions. Insulin dosing requires individu alizatio n. 03/23 completed Prescrib ed Elsewher e: Yes Loca tion: [facility] odify By: ammauricio Martin ncounter DateTime [...] Elsewher e: No Locat ion: [facility] odify By: ammauricio Martin ncounter DateTime : 01/27/20 16 01:00:00 PM Not Available Not Available Not Available ranitidin e 300 mg capsule take 1 capsule by oral route every day at bedtime 03/23 completed Prescrib ed Elsewher e: Yes Loca tion: [facility] odify By: [email or web address] trick En [...] Elsewher e: No Locat ion: [facility] odify By: ammauricio Martin ncounter DateTime : 03/31/20 16 04:45:00 PM Not Available Not Available Not Available cefdinir 300 mg capsule 03/23 completed Not Available Not Available Not Available losartan 100 mg tablet take 1 tablet by oral route every day 03/23 completed Prescrib ed Elsewher e: Yes Loca tion: [facility] odify By: [email or web address] trick En counter DateTime : 01/27/20 16 01:00:00 PM Not Available Not Available Not Available fluticaso ne propionat e 50 mcg/actua tion nasal spray,karen pension active Not Available Not Available Not Available nortripty line 50 mg capsule take 1 capsule by oral route 2 times every day 2015 active Prescrib ed Elsewher e: Yes Loca tion: [facility] odify By: [email or web address] trick En counter DateTime : 01/27/20 16 01:00:00 PM Not Available Not Available Not Available Estrace 1 mg tablet take 1 tablet by oral route every day 2015 active Prescrib ed Elsewher e: No Locat ion: [facility] odify By: [email or web address] h Becki ter DateTime : 04/28/20 16 03:30:00 PM Not Available Not Available Not Available progester one micronize d 100 mg capsule take 1 capsule by oral route every day for 10 days in the evening 05/07 completed Prescrib ed Elsewher e: Yes Loca tion: [facility] odify By: ammauricio carbone DateTime : 04/28/20 16 03:30:00 PM Not Available Not Available Not Available amoxicill in 875 mg-potass ium clavulana te 125 mg tablet 03/23 completed Not Available Not Available Not Available iron 18 mg tablet 2015 active Prescrib ed Elsewher e: Yes Loca tion: [facility] odify By: [email or web address] trick En counter DateTime : 01/27/20 16 01:00:00 PM Not Available Not Available Not Available magnesium 200 mg tablet 2015 active Prescrib ed Elsewher e: Yes Loca tion: [facility] odify By: [email or web address] trick En counter DateTime : 01/27/20 16 01:00:00 PM Not Available Not Available Not Available Vitamin D3 25 mcg (1,000 unit) tablet take 1 by Oral route once for 2 months then draw labs 2015 active Prescrib ed Elsewher e: Yes Loca tion: [facility] odify By: [email or web address] trick En counter DateTime : 01/27/20 16 01:00:00 PM Not Available Not Available Not Available nitrofura ntoin monohydra te/macroc rystals 100 mg capsule active Not Available Not Available Not Available duloxetin e 20 mg capsule,d elayed release active Not Available Not Available Not Available Cinnamon 500 mg capsule 2015 active Prescrib ed Elsewher e: Yes [facility] By: [email or web address] trick En counter DateTime : 01/27/20 16 01:00:00 PM Not Available Not Available Not Available Lantus Solostar U-100 Insulin 100 unit/mL (3 mL) subcutane ous pen active Not Available Not Available Not Available Tirosint 75 mcg capsule take 1 capsule by oral route every day 04/28 completed Prescrib ed Elsewher e: Yes Loca tion: [facility] odify By: [email or web address] Martin ncounter DateTime : 01/27/20 16 01:00:00 PM Not Available Not Available Not Available Bydureon 2 mg subcutane ous extended release suspensio n inject by subcutan eous route every 7 days once 03/23 completed Prescrib ed Elsewher e: Yes Loca tion: [facility] odify By: [email or web address] trick En counter [...] Updated DateTime 03/23/2022 168.91 cm 49.1 kg/m2 691082.04 g 136/80 mm[Hg] Cecilia Rangel [facility] 03/23/2022 14:58:40 Social History Question Answer Notes LastModified by Organizat ion Details LastModified Time Tobacco Smoking Status Never Smoker Cecilia Rangel [facility] 03/23/2022 15:03:27 Are You [...] anxious, or unable to sleep at night)? [id number] Information not available 03/23/2022 Family History Relationship [...] ICD10 Code Diagnosis IMO Codes Diagnosis Note [id number] Kim Tovar [facility] [address] [address] 03/23/2022 14:11:49 03/24/2022 16:35:54 Gynecologic examination [id number] Z01.419 Take Calcium with Vitamin D 12-1500mg daily. Do monthly self breast exams. It is advised to get annual flu shot in the fall and she could obtain at [facility] or [facility] care clinic. If you haven't received the [...] Labs UTD PCPMammo UTD PCP Inguinal pain [id number] R10.2 Left sided groin pain.Exam difficult due [...] Arias Member ID Guarantor Name 03/24/2022 2 [place] Keri Stone [id number] Keri Stone 03/24/2022 1 [facility] [id number] Keri Stone 03/24/2022 2 [place] Keri Stone [id number] Keri Stone 03/24/2022 1 [facility] (MEDICARE REPLACEMENT/A DVANTAGE - PPO) Keri Stone [id number] Keri Stone Notes Date Note Type Note Provider Name and Address Organization Details Recorded Time 2 text/html Annual Range Scientist Post-MenopausalReported by PatientGenitourinary symptomsFor menopausal symptoms, patient [...] seen.Groin pain comes/goes.Worse with activity. Kim Tovar, [facility] [address], [place], [address], [facility] 03/24/2022 16:16:15 OBGyn Episode No OBEpisode recorded.
--- OUTSIDE RECORDS SUMMARY | 2025-06-26 16:57 | XMS_ITS | Encounter Summary ---
Author Organization [facility] Address [facility] [place] [address] Care Team Providers Care Body Builder Apprentice Name Role Phone Alexis Thurman MD Unavailable [phone] Willian Mendoza MD Primary Care Provider [phone] Cee Liu APRN, MACHINE CHOCOLATE MOLDER-C Unavailable Virgilio Meehan DO Primary Care Provider [phone] Mame Osborn MD Unavailable [phone] Encounter Details Date Type Department Care Team (Late st Contact Info) Description 07/04/2022 Abstract [facility] [address] [place] [address] Alexis Thurman MD [address] [place] [phone] Social History Tobacco Use Types Packs/Day Years [...] Coronavirus/COVID-19? No / Unsure 06/29/2022 5:44 AM SAND DIGGER documented as of this encounter Plan of [...] on filedocumented in this encounter Care Teams Body Builder Apprentice Relationship Specialty Start Date End Date Willian Mendoza MD [address] [place] [id number] PCP - General INTERNAL MEDICINE 09/14/18 09/07/22 Virgilio Meehan DO [address] [place] [address] PCP - General FAMILY PRACTICE 09/08/22 Alexis Thurman MD [address] [place] [phone] [place] Milking Worker CARDIOVASCULAR DISEASE 09/14/18 04/01/24 Cee Liu APRN, MACHINE CHOCOLATE MOLDER-C [address] [facility] [address] [place] [address] NURSE PRACTITIONER 05/27/22 Mame Osborn MD [address] [address] INTERVENTIONAL CARDIOLOGY 05/10/24 documented as of this encounter
--- OUTSIDE RECORDS SUMMARY | 2025-06-26 16:57 | XMS_ITS | Clinical Summary ---
Author Organization [facility] Address [address] [place] [address] Care Team Providers Care Attorney Name Role Phone Willian Mendoza MD Primary Care Provider [phone] Allergies Active Allergy Reactions Criticality Noted Date [...] mouth 2 (two) times a day Active ennrumwprgur-Ua-im on-minerals tablet Take 1 tablet by mouth [...] tablet (100 mcg total) by mouth early childhood before breakfast 90 tablet 3 08/07/20 24 Active blood-glucose sensor device Change sensors every 10 days Dx. E11.65 9 each 3 09/11/19 25 Active Ozempic 2 mg/dose (8 mg/3 mL) pen injector injectionIndicatio ns:Type 2 diabetes mellitus with hyperglycemia, with long-term current use of insulin (HCC) INJECT SUBCUTANEOUSLY 2 MG EVERY WEEK 9 mL 3 12/21/19 Active amitriptyline (ELAVIL) 25 mg tablet 02/13/20 Active Farxiga 10 mg tabletIndications: Type 2 diabetes mellitus with hyperglycemia, with long-term current use of insulin (HCC) TAKE 1 TABLET BY MOUTH DAILY 100 tablet 2 05/05/20 Active Active Problems Problem Noted Date Diagnosed Date Abdominal pain in female 02/18/2025 Abdominal pain, LLQ 02/18/2025 Abnormal urinalysis 02/18/2025 Arthritis 02/18/2025 Overview (02/18/2025): Phreesia 06/01/2021 Dysuria 02/18/2025 Gastroesophageal reflux disease 02/18/2025 Overview (02/18/2025): Phreesia 06/01/2021 Glucosuria 02/18/2025 Left flank pain 02/18/2025 Renal cyst, acquired, right 02/18/2025 Overview (02/18/2025): Simple appearing cyst on renal bladder ultrasound at [facility] dated 08/26/2022. Diabetes mellitus 02/18/2025 Overview (02/18/2025): Phreesia 06/01/2021 H/O gastric sleeve 01/09/2024 Iron deficiency anemia 08/31/2023 Stage 3b chronic kidney disease 08/31/2023 Hypertension, essential 08/31/2023 Overview (02/18/2025): Phreesia 06/01/2021 Hypomagnesemia 05/07/2023 Acquired hypothyroidism 03/17/2022 Assessment & Plan (08/07/2024 5:51 PM VIDEO SYSTEM REPAIRER): Chronic, stable. Continue levothyroxine Update TFTs Assessment & Plan (08/10/2023 3:53 PM VIDEO SYSTEM REPAIRER): Chronic, well-controlled Importance of taking levothyroxine [...] 04/17/2018 Assessment & Plan (08/07/2024 5:51 PM VIDEO SYSTEM REPAIRER): Chronic, stable Update lipid profile Continue statin therapy Assessment & Plan (08/10/2023 3:53 PM VIDEO SYSTEM REPAIRER): Chronic, well-controlled Continue statin therapy with Pravachol Assessment & Plan (01/17/2023 1:59 PM CDT): Chronic, well controlled Low fat Low cholesterol diet Exercise Continue statin therapy with Pravachol Assessment & Plan (03/17/2022 9:47 AM CDT): Chronic problem. On statin therapy, no changes. Assessment & Plan (10/28/2021 1:21 PM VIDEO SYSTEM REPAIRER): Chronic problem. On statin therapy, no [...] Pravachol Assessment & Plan (09/27/2019 9:29 AM VIDEO SYSTEM REPAIRER): LDL at goal. Trigs elevated. Continue [...] therapy Assessment & Plan (08/07/2018 1:59 PM VIDEO SYSTEM REPAIRER): At goal on current medications. Assessment [...] dicussed Assessment & Plan (09/27/2019 9:29 AM VIDEO SYSTEM REPAIRER): Continues to do well with wt [...] adjusted. Assessment & Plan (08/07/2018 1:59 PM VIDEO SYSTEM REPAIRER): Continues to gain weight. Little attempt at diet and exercise. Reviewed importance of avoiding juice, soda, high fat, high carb foods. Assessment & Plan (10/05/2017 2:49 PM VIDEO SYSTEM REPAIRER): Diet and exercise were discussed. 1200 Calorie diet advised 45-60 min aerobic / resistance exercise most days of the week recommended. Bariatric surgery medically indicated Assessment & Plan (07/20/2017 4:17 PM VIDEO SYSTEM REPAIRER): Importance of following diet and exercising [...] Overview (02/18/2025): Congenital anomaly;Recorded Elsewhere: No Location: [facility] Source: EHR Chronic: N Practice ID: [...] changes. Assessment & Plan (10/28/2021 1:21 PM VIDEO SYSTEM REPAIRER): Controlled on current medications, no changes. [...] microalbumin Assessment & Plan (09/27/2019 9:29 AM VIDEO SYSTEM REPAIRER): Controlled on current medications. Continue plan. Assessment & Plan (06/06/2019 2:49 PM CDT): Controlled on current medications. Continue plan. Assessment & Plan (11/01/2018 2:04 PM CDT): Goal blood pressure is less than 140/85 Low salt diet recommended Daily aerobic exercise Continue current meds, including ALYCE-I or ARB Assessment & Plan (08/07/2018 2:00 PM VIDEO SYSTEM REPAIRER): Controlled on current medications. Assessment & Plan (04/17/2018 2:07 PM CDT): Goal blood pressure is less than 140/85 Low salt diet recommended Daily aerobic exercise Continue current meds, including ALYCE-I or ARB Assessment & Plan (10/05/2017 2:50 PM VIDEO SYSTEM REPAIRER): Goal blood pressure is less than 140/85 Low salt diet recommended Daily aerobic exercise Continue current meds, including ALYCE-I or ARB Assessment & Plan (07/20/2017 4:18 PM VIDEO SYSTEM REPAIRER): Controlled on current medications. Assessment & Plan (04/06/2017 4:28 PM CDT): At goal on current medications. Hyperlipidemia 09/19/2012 Overview (11/24/2016): HYPERLIPIDEMIA NEC/NOS Assessment & Plan (06/06/2019 2:49 PM CDT): Lipid panel ordered Assessment & Plan (07/20/2017 4:18 PM VIDEO SYSTEM REPAIRER): Will check lipid panel Assessment & Plan (04/06/2017 4:28 PM CDT): Check labs and focus on low fat foods Furuncle of trunk 06/28/2012 Overview (11/23/2016): Carbuncle and furuncle of trunk Type 2 diabetes mellitus 06/28/2012 Overview (11/24/2016): DMII WO CMP UNCNTRLD Assessment & Plan (08/07/2024 5:50 PM VIDEO SYSTEM REPAIRER): Chronic, stable Diet and exercise were emphasized Continue Farxiga and Ozempic Assessment & Plan (02/13/2024 4:29 PM CDT): Chronic, well-controlled. Continue Ozempic 2 mg weekly Farxiga 10 mg Importance of diet and exercise was discussed Assessment & Plan (08/10/2023 3:52 PM VIDEO SYSTEM REPAIRER): Chronic, well-controlled, with some postprandial hyperglycemia [...] Farxita Assessment & Plan (07/19/2022 1:34 PM VIDEO SYSTEM REPAIRER): Hba1c was Lab Results Component Value [...] today. Assessment & Plan (10/28/2021 1:43 PM VIDEO SYSTEM REPAIRER): Chronic problem, not at goal. Increase [...] breakfast Assessment & Plan (09/27/2019 9:31 AM VIDEO SYSTEM REPAIRER): A1c increased to 7.8. Pattern acceptable [...] goal hba1c is under 7.0 to prevent snf diabetes complications ( eye , kidney and [...] discussed. Assessment & Plan (08/07/2018 2:02 PM VIDEO SYSTEM REPAIRER): A1c 8.1. Baseline BG reported at [...] discussed. Assessment & Plan (10/05/2017 2:51 PM VIDEO SYSTEM REPAIRER): Hba1c was . 9.6 . today, [...] discussed. Assessment & Plan (07/20/2017 4:17 PM VIDEO SYSTEM REPAIRER): A1c improved 8.7, ~ 2%. Mostly [...] 08/21/2018 - 08/20/2019 Gastric sleeve at [facility] Medical History Medical History Date Comments Hyperlipidemia [...] on file Legal Sex Female 10:22 AM VIDEO SYSTEM REPAIRER Gender Identity Not on file Sexual Orientation Straight 08/07/2024 2: 11 PM VIDEO SYSTEM REPAIRER Last Filed Vital Signs Vital Sign [...] * (ABNORMAL) eGFR (02/18/2025 4:02 PM CDT) [facility] eGFR 54(L) >=60 mL/min/1. 73 m2 Comment: [...] Resul t Performing Organization Address [facility] de Phone Number OLGA [address] [place], [place] [id number] * (ABNORMAL) Albumin Creatinine Ratio, Urine (02/18/2025 [...] Resul t Performing Organization Address [facility] de Phone Number OLGA [place] [address] [place] [address] * (ABNORMAL) Lipid panel (02/18/2025 4:02 PM [...] 2. NCEP Expert Panel. Circulation 2004;110:227 3. Morin M et al. JIM Cardiol. 2020 December [...] BLOOD ORDERABLES Final Resul t OLGA [place] [address] [place] [address] * (ABNORMAL) POCT hemoglobin A1c (02/18/2025 3:13 PM CDT) Hemoglobin A1C, POC 6.6(A) 4.0 - 5.6 % Comment:None Capillary blood 02/18/2025 3 :13 PM CDT us Anthony Castillo MD POINT OF CARE TEST ORDERABLES Fi nal Result * (ABNORMAL) DIABETES EYE EXAM (02/05/2025 8:08 AM CDT) [facility] Provider HEALTH MAINTENANCE Edited Result - Final from Last 3 Months or Most Recently Relevant to Health Maintenance Insurance [facility] [facility] MEDICARE ADVANTAGE [facility] [place] [address] Care Teams Attorney Relationship Specialty Start Date End Date Willian Mendoza MD PCP - General 02/18/16
--- OUTSIDE RECORDS SUMMARY | 2025-06-26 16:57 | XMS_ITS | Patient Health Record ---
Author Organization [facility] Address [address] [place], [place] [address] Care Team Providers Care Teacher Dancing Name Role Phone MIRIAN MOSHER Unavailable [phone] Virgilio Meehan Unavailable Unavailable ADRIEN CONTRERAS Unavailable [phone] WILFREDO BRODERICK Unavailable [phone] Allergies No Known Allergies Reason For Referral No Information Medications Medication SIG (Take, Route, Frequency, Duration) Notes Start Date End Date Status Nabumetone 500 MG Oral Tablet ORAL nabumetone 500 MG Oral TabletOriginal Medicationnabumetone 500 MG Oral Tablet *Reorder from [facility] for eRx and Interaction Alerts* 06/29/20 12 Active Allopurinol 300 MG Oral Tablet ORAL allopurinol 300 MG Oral TabletOriginal Medicationallopurinol 300 MG Oral Tablet *Reorder from [facility] for eRx and Interaction Alerts* 04/07/20 14 Active nortriptyline 50 MG Oral Capsule ORAL nortriptyline 50 MG Oral CapsuleOriginal Medicationnortriptyline 50 MG Oral Capsule *Reorder from [facility] for eRx and Interaction Alerts* 04/07/20 14 Active Spironolactone 25 MG Oral Tablet ORAL spironolactone 25 MG Oral TabletOriginal Medicationspironolactone 25 MG Oral Tablet *Reorder from [facility] for eRx and Interaction Alerts* 04/07/20 14 Active propranolol hydrochloride 40 MG Oral Tablet ORAL propranolol hydrochloride 40 MG Oral TabletOriginal Medicationpropranolol hydrochloride 40 MG Oral Tablet *Reorder from [facility] for eRx and Interaction Alerts* 04/07/20 14 Active 3 ML insulin glargine 100 UNT/ML Pen Injector [Lantus] 3 ML insulin glargine 100 UNT/ML Pen Injector [Lantus]Original Medication3 ML insulin glargine 100 UNT/ML Pen Injector [Lantus] *Reorder from [facility] for eRx and Interaction Alerts* 04/07/20 14 Active cholecalciferol 0.025 MG Oral Capsule ORAL cholecalciferol 0.025 MG Ora l CapsuleOriginal Medicationcholecalciferol 0.025 MG Oral Capsule *Reorder from [facility] for eRx and Interaction Alerts* 04/07/20 14 Active Pravastatin Sodium 10 MG Oral Tablet ORAL pravastatin sodium 10 MG Ora l TabletOriginal Medicationpravastatin sodium 10 MG Oral Tablet *Reorder from [facility] for eRx and Interaction Alerts* 04/07/20 14 Active Losartan Potassium 100 MG Oral Tablet ORAL losartan potassium 100 MG Oral TabletOriginal Medicationlosartan potassium 100 MG Oral Tablet *Reorder from [facility] for eRx and Interaction Alerts* 04/07/20 14 Active esomeprazole 20 MG Injection INTRAVENOUS esomeprazole 20 MG InjectionOriginal Medicationesomeprazole 20 MG Injection *Reorder from [facility] for eRx and Interaction Alerts* 04/07/20 14 Active levothyroxine sodium 0.1 MG Oral Capsule ORAL levothyroxine sodium 0.1 MG Oral CapsuleOriginal Medicationlevothyroxine sodium 0.1 MG Oral Capsule *Reorder from [facility] for eRx and Interaction Alerts* 04/07/20 14 Active ciclopirox 80 MG/ML Topical Solution CUTANEOUS ciclopirox 80 MG/ML Topical SolutionOriginal Medicationciclopirox 80 MG/ML Topical Solution *Reorder from [facility] for eRx and Interaction Alerts* 04/20/20 12 Active cinnamon bark 500 MG Oral Capsule ORAL cinnamon bark 500 MG Oral CapsuleOriginal Medicationcinnamon bark 500 MG Oral Capsule *Reorder from [facility] for eRx and Interaction Alerts* 04/07/20 14 Active verapamil hydrochloride 40 MG Oral Tablet ORAL verapamil hydrochloride 40 M G Oral TabletOriginal Medicationverapamil hydrochloride 40 MG Oral Tablet *Reorder from [facility] for eRx and Interaction Alerts* 04/07/20 [...] Unknown 07/25/2006 Administered Tdap Unknown 04/23/2017 Administered Social History Social History Additional Details Category Social Info Options Details Migrated Social History Migrated Social History History of tobacco use : , Smoking Status : Never smoked Vital Signs Height-cm 170.18 cm 05/08/2025 Weight-kg 113.85 kg 05/08/2025 Height 67.00 in 05/08/2025 Weight 251 lbs 05/08/2025 BMI 39.31 kg/m2 05/08/2025 Encounters Encounter Location Date Provider Diagnosis [address] [id number] 01/02/2025 WILFREDO BRODERICK Tinea unguium B35.1 ; Acquired 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 ; Atherosclerosis of [place] arteries of extremities with intermittent claudication, bilateral legs I70.213 ; Pain in right foot M79.671 and Pain in left foot M79.[address] [id number] 03/06/2025 WILFREDO BRODERICK Fungal infection of nail B35.1 ; Pain in right toe(s) M79.674 ; Pain in left toe(s) M79.675 and Atherosclerosis of [place] arteries of extremities with intermittent claudication, bilateral legs I70.[address] [id number] 05/08/2025 WILFREDO BRODERICK Tinea unguium B35.1 ; Other acquired deformities of right foot M21.6X1 ; Acquired 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 ; Atherosclerosis of [place] arteries of extremities with intermittent claudication, bilateral legs I70.213 ; Pain in right foot M79.671 and Pain in left foot M79.[address] [id number] 10/10/2024 MIRIAN SNOOK Tinea unguium B35.1 ; Acquired 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 ; Atherosclerosis of [place] arteries of extremities with intermittent claudication, bilateral legs I70.213 ; Pain in right foot M79.671 and Pain in left foot M79.672 [facility] [address] [address] [id number] 12/09/2024 MIRIAN SNAYLAK [facility] [address] [address] [id number] 01/29/2025 MIRIAN SNOOK [facility] [address] [address] [id number] 05/15/2025 WILFREDO BRODERICK Assessments Encounter Date Diagnosis (ICD Code) Assessment [...] and pared utilizing a #15 blade 03/06/2025 Pain in right toe(s) (ICD-10 - M79.674) 03/06/2025 Fungal infection of nail (ICD-10 - B35.1) 05/08/2025 Tinea unguium (ICD-10 - B35.1) Nails [...] and pared utilizing a #15 blade 03/06/2025 Pain in left toe(s) (ICD-10 - M79.675) 01/02/2025 Atherosclerosis of [place] arteries of extremities with intermittent claudication, bilateral legs (ICD-10 - I70.213) Check and protect LE bilateral daily. Call if any changes or concerns. 10/10/2024 Atherosclerosis of [place] arteries of extremities with intermittent claudication, bilateral [...] to watch for possible rash/allergic reaction 03/06/2025 Atherosclerosis of [place] arteries of extremities with intermittent claudication, bilateral legs (ICD-10 - I70.213) 05/08/2025 Atherosclerosis of [place] arteries of extremities with intermittent claudication, bilateral [...] The patient was instructed in its use. 01/02/2025 Pain in left foot (ICD-10 - M79.672) 10/10/2024 Pain in left foot (ICD-10 - M79.672) 05/08/2025 Pain in left foot (ICD-10 - M79.672) Plan Of Treatment Next Appt Details Provider Name:WILFREDO MARTIN, 07/24/2025 11:40:00 AM, [address] [place] [address], [id number], Insurance Providers Payer Name Payer Address Payer Phone Subscriber Number Group Number Insured Name Patient Relationship to Insured Coverage Start Date Coverage End Date [facility] [address] [address] [place] [address] [id number] MATEUSZ MONROE Self - patient is the insured Medical (General) History Medical History History ICD Code Diabetic
--- OUTSIDE RECORDS SUMMARY | 2025-06-26 16:57 | XMS_ITS | Clinical Summary ---
Author Organization [facility] Address [facility] [place] [address] Care Team Providers Care Frog Farmer Name Role Phone Cee Liu APRN, NP-C Unavailable Virgilio Meehan DO Primary Care Provider [phone] Mame Osborn MD Unavailable [phone] Allergies Active Allergy Reactions Criticality Noted Date Comments Amoxicillin-Pot Clavulanate Diarrhea 05/27/2022 Metformin Other (see comment) 05/27/2022 Renal function impairment Pantoprazole Other (see comment) 05/27/2022 Hypomagnesemia Medications CPAP DME DEVICE CPAPCPAP [id number] via IV [id number] Morrissey 8 Active allopurinol 100 MG tablet Take 1 tablet (100 mg total) by mouth daily. 9 Active Dapagliflozin Propanediol 10 MG Tab Take 1 tablet (10 mg total) by mouth daily. 9 Active levothyroxine 100 MCG tablet Take 1 tablet (100 mcg total) by mouth every morning. 9 Active cyanocobalamin 1000 MCG/ML injection Inject [...] mouth daily. 90 tablet 3 4 Active propranolol (INDERAL) 20 MG tablet Take 1 tablet (20 mg total) by mouth daily. 5 Active Active Problems Problem Noted Date Diagnosed [...] check lipid panel Hypertension associated with diabetes 09/19/2012 Overview (10/22/2018): Overview: Unspecified essential hypertension Last Assessment & Plan: Controlled on current medications. Type 2 diabetes mellitus 06/28/2012 Overview (10/22/2018): Overview: DMII WO CMP UNCNTRLD Last Assessment & Plan: A1c 8.1. Baseline BG reported at goal. Suspect pc excursions are reason for poor control but returns to baseline. Would benefit from CGM as this would provide daily education re: specific foods and BG patterns. Will try for this. No change to medication plan today. Encounters Date Type Department Care Team Description 06/20/2025 Telephone [facility] [address] [place] [address] Casper Thurman MD Information 05/07/2025 1:30 PM CDT Office Visit [facility] [address] [place] [address] Casper Thurman MD Follow Up 05/07/2025 Travel 05/07/2025 Orders Only [facility] [address] [place] [address] Casper Thurman MD 05/06/2025 Telephone [facility] [address] [place] [address] Casper Thurman MD Appointment Reminder 05/06/2025 Telephone [facility] [address] [place] [address] Regulo Fitzpatrick MD Appointment Reminder from Last 3 Months Family History Medical [...] 36.2 C (97.2 F) 06/29/2022 6:18 AM OCCUPATIONAL THERAPY CO DIRECTOR Respiratory Rate 16 05/07/2025 1:03 PM CDT [...] 2) 06/02/2021 04/07/2021 COVID-19 Vaccine ( season) 2025 06/21/2021, 10/03/2020, 09/05/2020 Influenza Adult (#1) 2025 05/11/2021, 04/21/2020, 05/13/2019, Additional history exists DTaP, Tdap and Td Vaccines (6 - Td or Tdap) 04/23/2027 04/23/2017, 07/25/2006, 07/25/2006, Additional history exists Hepatitis A Vaccines Aged Out 07/25/2006 No long er eligible based on patient's age to complete this topic Meningococcal B Vaccine Aged Out No l onger eligible based on patient's age to complete this topic Meningococcal Vaccine Aged Out No debbie manav eligible based on patient's age to complete this topic RSV Immunizations Under 20 Months Aged Out No longer eligible based on patient's age to complete this topic Medical Devices Implanted Type Area Endoscopy Support Specialist Device Identifier Shelf Expiration Date Model / Serial / Lot Stent Ureteral [place] Sci Contour 6fr X 26cm - [id number] Implanted:Qty : 1 on 06/28/2021 by Ryan Vinson MD at [facility] Stent Right: Ureter Juxinli MASOOD [id number] 04/12/2024 [id number] 30 / / [id number] Procedures Procedure Name Priority Date/Time Associated Diagnosis Comments ELECTROCARDIOGRAM (NON MIDMARK ACQUIRED) Routine 05/07/2025 12:55 PM CDT Hypertension, essential LIPID PANEL Routine 07/23/2009 12:00 AM OCCUPATIONAL THERAPY CO DIRECTOR from Last 3 Months or Most Recently Relevant to Health Maintenance Results * ELECTROCARDIOGRAM (05/07/2025 12:55 PM CDT) 05/07/2025 12:5 5 PM CDT Narrative [facility] - 05/07/2025 5:24 PM CDT [facility] [place] [address] Test Date: 2025-05-07 Pat Name: MATEUSZ STONE Department: 105 Room: Gender: Female Bay Stocker: collette : 1965 Requested By: CASPER THURMAN Order Number: [id number] Arline MD: Casper Thurman Measurements Intervals [place] Rate: 82 P: 48 [place]: 151 QRS: -33 QRSD: 86 T: 57 QT: 337 QTc: 396 Interpretive Statements SINUS RHYTHM LEFT AXIS DEVIATION LOW QRS VOLTAGE IN PRECORDIAL LEADS BASELINE ARTIFACT Procedure Note Casper Thurman MD - 05/07/2025 [facility], [facility] [address] [place] [address] Test Date: 2025-05-07 Pat Name: MATEUSZ STONE Department: 105 Room: Gender: Female [place] Stocker: collette : 1965 Requested By: CASPER THURMAN Order Number: [id number] Reading MD: Casper Thurman Measurements Intervals [place] Rate: 82 P: 48 [place]: 151 QRS: -33 QRSD: 86 T: 57 QT: 337 QTc: 396 Interpretive Statements SINUS RHYTHM LEFT AXIS DEVIATION LOW QRS VOLTAGE IN PRECORDIAL LEADS BASELINE ARTIFACT us Casper Thurman MD PROCEDURES-ORDERABLE NO AILYN RGE Final Result [facility] * LIPID PANEL (07/23/2009 12:00 AM OCCUPATIONAL THERAPY CO DIRECTOR) TRIGLYCERIDES 132 0 - 150 mg/dl MEDINFORMATIX TO EPIC CONVERSION CHOLESTEROL 180 0 - 200 mg/dl MEDINFORMATIX TO EPIC CONVERSION HDL 61 40 - 59 mg/dl MEDINFORMATIX TO EPIC CONVERSION LDL CONVERSION 93 0 - 100 mg/dl MEDINFORMATIX TO EPIC CONVERSION CHOL/HDL RATIO 3.0 <4.0 (Calc) MEDINFORMATIX TO EPIC CONVERSION 07/23/2009 07/23/2009 Narrative MEDINFORMATIX TO EPIC CONVERSION - 07/23/2009 1:31 PM OCCUPATIONAL THERAPY CO DIRECTOR Reviewed by ANGELA Jul 23 2009 1:33:00:000PM us Generic Conversion Md [facility] Final R esult MEDINFORMATIX TO EPIC CONVERSION from Last 3 Months or Most Recently Relevant to Health Maintenance Insurance MEDICAID Member Subscriber Plan / Payer ( fective 2018-Present) Name:Krystamarsha Nicole Relation to Subscriber:Self Name:Mateusz Stone Ann Payer ID:Not on file Group ID:Not on file Type:Not on file Address: [address] MEDICARE MEDICAID Member Subscriber Plan / Payer ( fective 2018-Present) Name:KrystamarshaMateuszNicole Relation to Subscriber:Self Name:OleksandrmollyLittle larsoni Ann Payer ID:Not on file Group ID:Not on file Type:Not on file Address: [address] MEDICARE MEDICAID Advance Directives * Full Code (Latest Code Status on File) Date Activated Date Inactivated Comments 06/29/2022 9:52 AM 06/29/2022 1:43 PM Care Teams Frog Farmer Relationship Specialty Start Date End Date Virgilio Meehan DO [address] [place] [address] PCP - General FAMILY PRACTICE 09/08/22 Cee Liu, PROJECT ASSISTANT, TITLE CLOSER-C [address] [facility] [address] [place] [id number] NURSE PRACTITIONER 05/27/22 Mame Osborn MD [address] [place] [address] INTERVENTIONAL CARDIOLOGY 05/10/24
--- OUTSIDE RECORDS SUMMARY | 2025-06-26 16:57 | XMS_ITS | Encounter Summary ---
Author Organization [facility] Address [facility] [place] [address] Care Team Providers Care Banana Loader Name Role Phone Alexis Thurman MD Unavailable [phone] Willian Mendoza MD Primary Care Provider [phone] Cee Liu APRN, ENRICHMENT TEACHER-C Unavailable [phone] Virgilio Meehan DO Primary Care Provider [phone] Mame Osborn MD Unavailable [phone] Encounter Details Date Type Department Care Team (Late st Contact Info) Description 11/04/2017 Abstract [facility] [address] [place] [address] , Generic MD Guilherme Social History Tobacco [...] on filedocumented in this encounter Care Teams Banana Loader Relationship Specialty Start Date End Date Willian Mendoza MD [address] [place] [address] PCP - General INTERNAL MEDICINE 09/14/18 09/07/22 Virgilio Meehan DO [address] [place] [address] PCP - General FAMILY PRACTICE 09/08/22 Alexis Thurman MD [address] [place] [address] [place] Audio Narrator CARDIOVASCULAR DISEASE 09/14/18 04/01/24 Cee Liu APRN, ENRICHMENT TEACHER-C [address] [facility] [address] [place] [address] NURSE PRACTITIONER 05/27/22 Mame Osborn MD [address] [place] [address] INTERVENTIONAL CARDIOLOGY 05/10/24 documented as of this encounter
--- OUTSIDE RECORDS SUMMARY | 2025-06-26 16:57 | XMS_ITS | Encounter Summary ---
Author Organization [facility] Address [facility] [place] [address] Care Team Providers Care Police Cadet Name Role Phone Alexis Thurman MD Unavailable Cee Liu APRN, NP-C Unavailable Virgilio Meehan DO Primary Care Provider Mame Osborn MD Unavailable [phone] Encounter Details Date Type Department Care Team (Late st Contact Info) Description 12/21/2022 Abstract [facility] [address] [place] [address] [place] [address] [place] [address] Social History Tobacco Use Types Packs/Day Years [...] on filedocumented in this encounter Care Teams Police Cadet Relationship Specialty Start Date End Date Virgilio Meehan DO [address] [place] [address] PCP - General FAMILY PRACTICE 09/08/22 Alexis Thurman MD [address] [place] [address] [place] Sun Loading Machine Adjuster CARDIOVASCULAR DISEASE 09/14/18 04/01/24 Cee Liu, PLASTIC CNC MACHINE OPERATOR, MUSIC VIDEO DIRECTOR-C [address] [facility] [address] [place] [address] NURSE PRACTITIONER 05/27/22 Mame Osborn MD [address] [place] [address] INTERVENTIONAL CARDIOLOGY 05/10/24 documented as of this encounter
--- OUTSIDE RECORDS SUMMARY | 2025-06-26 16:57 | XMS_ITS | Encounter Summary ---
Author Organization [facility] Address [facility] [place] [address] Care Team Providers Care Personal Attendant Name Role Phone Alexis Thurman MD Unavailable [phone] Willian Mendoza MD Primary Care Provider [phone] Cee Liu APRN, EXHIBIT TECHNICIAN-C Unavailable Virgilio Meehan DO Primary Care Provider [phone] Mame Osborn MD Unavailable [phone] Encounter Details Date Type Department Care Team (Late st Contact Info) Description 10/12/2018 Abstract [facility] [address] [place] [address] Abstract, Doc [facility] Social History [...] on filedocumented in this encounter Care Teams Personal Attendant Relationship Specialty Start Date End Date Willian Mendoza MD [address] [place] [address] PCP - General INTERNAL MEDICINE 09/14/18 09/07/22 Virgilio Meehan DO [address] [place] [address] PCP - General FAMILY PRACTICE 09/08/22 Alexis Thurman MD [address] [place] [address] [place] White Work Cleaner CARDIOVASCULAR DISEASE 09/14/18 04/01/24 Cee Liu APRN, EXHIBIT TECHNICIAN-C [address] [facility] [address] [place] [address] NURSE PRACTITIONER 05/27/22 Mame Osborn MD [address] [place] [address] INTERVENTIONAL CARDIOLOGY 05/10/24 documented as of this encounter
--- OUTSIDE RECORDS SUMMARY | 2025-06-26 16:57 | XMS_ITS | Encounter Summary ---
Author Organization [facility] Address [facility] [place] [address] Care Team Providers Care Neonatal Doctor Name Role Phone Alexis Thurman MD Unavailable [phone] Willian Mendoza MD Primary Care Provider [phone] Cee Liu APRN, TELESALES PROFESSIONAL-C Unavailable Virgilio Meehan DO Primary Care Provider [phone] Mame Osborn MD Unavailable [phone] Encounter Details Date Type Department Care Team (Late st Contact Info) Description 04/07/2021 Abstract [facility] [address] [place] [address] Ella Witt MD [address] [place] [address] Social History Tobacco Use Types Packs/Day [...] on filedocumented in this encounter Care Teams Neonatal Doctor Relationship Specialty Start Date End Date Willian Mendoza MD [address] [place] [address] PCP - General INTERNAL MEDICINE 09/14/18 09/07/22 Virgilio Meehan DO [address] [place] [address] PCP - General FAMILY PRACTICE 09/08/22 Alexis Thurman MD [address] [place] [address] [place] Steel Plate Caulker CARDIOVASCULAR DISEASE 09/14/18 04/01/24 Cee Liu APRN, TELESALES PROFESSIONAL-C [address] [facility] [address] [place] [address] NURSE PRACTITIONER 05/27/22 Mame Osborn MD [address] [place] [address] INTERVENTIONAL CARDIOLOGY 05/10/24 documented as of this encounter
--- OUTSIDE RECORDS SUMMARY | 2025-06-26 16:57 | XMS_ITS | Encounter Summary ---
Author Organization [facility] Address [facility] [place] [address] Care Team Providers Care Waterproofing Supervisor Name Role Phone Alexis Thurman MD Unavailable [phone] Cee Liu APRN, NP-C Unavailable Virgilio Meehan DO Primary Care Provider Mame Osborn MD Unavailable [phone] Encounter Details Date Type Department Care Team (Late st Contact Info) Description 09/23/2022 Abstract [facility] [address] [place] [address] Alexis Thurman MD [address] [place] [address] Social History Tobacco Use Types [...] Coronavirus/COVID-19? No / Unsure 09/08/2022 8:48 AM PHYSICAL THERAPY TEACHER documented as of this encounter Plan of Treatment Not on file documented as of this encounter Visit Diagnoses Not on filedocumented in this encounter Care Teams Waterproofing Supervisor Relationship Specialty Start Date End Date BusVirgilio maxwell DO [address] [place] [address] PCP - General FAMILY PRACTICE 09/08/22 Alexis Thurman MD [address] [place] [address] [place] [employer] Center Operator CARDIOVASCULAR DISEASE 09/14/18 04/01/24 Cee Liu, ADMINISTRATIVE LIAISON, TWIST PACKER-C [address] [facility] [address] [place] [address] NURSE PRACTITIONER 05/27/22 Mame Osborn MD [address] [place] [address] INTERVENTIONAL CARDIOLOGY 05/10/24 documented as of this encounter
--- OUTSIDE RECORDS SUMMARY | 2025-06-26 16:57 | XMS_ITS | Encounter Summary ---
Author Organization [facility] Address [facility] [place] [address] Care Team Providers Care Statistical Engineer Name Role Phone Alexis Thurman MD Unavailable [phone] Willian Mendoza MD Primary Care Provider [phone] Cee Liu APRN, MECHANICAL MAINTENANCE FOREMAN-C Unavailable [phone] Virgilio Meehan DO Primary Care Provider [phone] Mame Osborn MD Unavailable [phone] Encounter Details Date Type Department Care Team (Late st Contact Info) Description 06/24/2022 Hospital Orders Only [facility] [employer] [facility] Pre[facility] [address] [place] [address] Alexis Thurman MD [address] [place] [address] Social History Tobacco Use Types [...] on filedocumented in this encounter Care Teams Statistical Engineer Relationship Specialty Start Date End Date Willian Mendoza MD [address] [place] [address] PCP - General INTERNAL MEDICINE 09/14/18 09/07/22 Virgilio Meehan DO [address] [place] [address] PCP - General FAMILY PRACTICE 09/08/22 Alexis Thurman MD [address] [place] [address] [place] Cloth Stock Sorter CARDIOVASCULAR DISEASE 09/14/18 04/01/24 Cee Liu APRN, MECHANICAL MAINTENANCE FOREMAN-C [address] [facility] [address] [place] [address] NURSE PRACTITIONER 05/27/22 Mame Osborn MD [address] [place] [address] INTERVENTIONAL CARDIOLOGY 05/10/24 documented as of this encounter
== END 2025-06-26 07:59 | disposition home or self-care (01) ==
PROVIDERS: PCP Family Medicine; Visit Provider Nurse Practitioner Family
DX: E83.42 Hypomagnesemia (principal); D51.9 Vitamin B12 deficiency anemia, unspecified
CPT/HCPCS: 96365; 96366; 96372; J3475; J7050

== ENCOUNTER 2025-07-01 10:13 | Outpatient (CLI) | payer MEDICARE, MEDICAID, SELFPAY ==
--- OUTSIDE RECORDS SUMMARY | 2010-02-01 09:15 | XMS_ITS | Continuity of Care Document ---
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 [address] [place], [address], [place]. tel:[phone] Referring Provider: Nilson Stewart, [address] [place], [address]. tel:[phone] [facility], [address], [place], [place], [id number], [place] tel:[phone] [facility] No Information Clement Devine. [address] [place], [address], [place]. tel:[phone] Referring Provider: Nilson Stewart, [address] [place], [address]. tel:[phone] [facility], [address], [place], [place], [id number], [place] tel:[phone] [facility] No Information Clement Devine. [address] [place], [address], [place]. tel:[phone] Referring Provider: Nilson Stewart, [address] [place], [address]. tel:[phone] [facility], [address], [place], [place], [address], [place] tel:[phone] [facility] No Information Clement Devine. [address] [place], [address], [place]. [phone] Referring Provider: Nilson Stewart, [address] [place], [address]. tel:[phone] [facility], [address], [place], [place], [id number], [place] tel:[phone] [facility] No Information Clement Devine. [address] [place], [address], [place]. tel:[phone] [facility], [address], [place], [place], [id number], [place] tel:[phone] [facility] No Information Clement Devine. [address] [place], [address], [place]. tel:[phone] Referring Provider: Nilson Stewart, [address] [place], [address]. tel:[phone] Office/outpat ient Visit, [facility], [address], [place], [place], [address], [place] tel:[phone] [facility] No Information Clement Devine. [address] [place], [address], [place]. tel:[phone] Family History Family Member Type Diagnosis Age At Onset No Information Payers Payer name Insurance type Covered democrat ID Authorshiloha tiisaiah(s) Medicaid [facility] [id number] Social History Type Description Quantity Date Captured [...]
--- OUTSIDE RECORDS SUMMARY | 2024-08-08 07:10 | XMS_ITS ---
Author Organization [facility] Address [address] [place], [place] [address] Care Team Providers Care Head Rose Grower Name Role Phone MIRIAN MOSHER Unavailable [phone] Virgilio Meehan Unavailable Unavailable ADRIEN CONTRERAS Unavailable [phone] REASON FOR VISIT *General care Encounters Encounter Location Date Provider Diagnosis [address] [id number] 08/08/2024 ADRIEN CONTRERAS Plan Of Treatment Next Appt Details Provider Name:WILFREDO Laura MARTIN, 07/24/2025 11:40:00 AM, [address] [place] [address], [id number], Progress Notes * MATEUSZ MONROE ADOB:[birth year] (59 yo F)Acc No.[id number]:08/08/2024 Patient: Zay KUHNSALVATORE MATEUSZ Brenda Provider: Bryon CONTRERAS :1965 A ge:58 Y S ex:Female Date:08/08/2024 Address:[address] [place], [place] [id number] Subjective: * Chief Complaints: * * General care Billing Information: * Procedure Codes: * Electronic signature of TIM CONTRERAS DPM on 07/01/2025 at 10:45 AM HOISTING ENGINEER Sign off status: Pending * Provider: Bryon CONTRERAS Date: 10/09/2023 Generated for Curt small/Ana Maria/eTransmitting on: 08/31/2024 10:45 AM HOISTING ENGINEER
--- OUTSIDE RECORDS SUMMARY | 2025-01-02 08:10 | XMS_ITS ---
Author Organization [facility] Address [address] [place], [place] [address] Care Team Providers Care Precision Optics Technician Name Role Phone MIRIAN MOSHER Unavailable [phone] Virgilio Meehan Unavailable Unavailable WILFREDO BRODERICK Unavailable [phone] REASON FOR VISIT *General care Medications Medication SIG (Take, Route, Frequency, Duration) Notes Start Date End Date Status cholecalciferol 0.025 MG Oral Capsule ORAL cholecalciferol 0.025 MG Ora l CapsuleOriginal Medicationcholecalciferol 0.025 MG Oral Capsule *Reorder from [facility] for eRx and Interaction Alerts* 04/07/20 14 Active 3 ML insulin glargine 100 UNT/ML Pen Injector [Lantus] 3 ML insulin glargine 100 UNT/ML Pen Injector [Lantus]Original Medication3 ML insulin glargine 100 UNT/ML Pen Injector [Lantus] *Reorder from [facility] for eRx and Interaction Alerts* 04/07/20 14 Active Nabumetone 500 MG Oral Tablet ORAL nabumetone 500 MG Oral TabletOriginal Medicationnabumetone 500 MG Oral Tablet *Reorder from [facility] for eRx and Interaction Alerts* 06/29/20 12 Active Losartan Potassium 100 MG Oral Tablet ORAL losartan potassium 100 MG Oral TabletOriginal Medicationlosartan potassium 100 MG Oral Tablet *Reorder from [facility] for eRx and Interaction Alerts* 04/07/20 14 Active Pravastatin Sodium 10 MG Oral Tablet ORAL pravastatin sodium 10 MG Ora l TabletOriginal Medicationpravastatin sodium 10 MG Oral Tablet *Reorder from [facility] for eRx and Interaction Alerts* 04/07/20 14 Active Spironolactone 25 MG Oral Tablet ORAL spironolactone 25 MG Oral TabletOriginal Medicationspironolactone 25 MG Oral Tablet *Reorder from [facility] for eRx and Interaction Alerts* 04/07/20 14 Active Allopurinol 300 MG Oral Tablet ORAL allopurinol 300 MG Oral TabletOriginal Medicationallopurinol 300 MG Oral Tablet *Reorder from [facility] for eRx and Interaction Alerts* 04/07/20 14 Active nortriptyline 50 MG Oral Capsule ORAL nortriptyline 50 MG Oral CapsuleOriginal Medicationnortriptyline 50 MG Oral Capsule *Reorder from [facility] for eRx and Interaction Alerts* 04/07/20 14 Active verapamil hydrochloride 40 MG Oral Tablet ORAL verapamil hydrochloride 40 M G Oral TabletOriginal Medicationverapamil hydrochloride 40 MG Oral Tablet *Reorder from [facility] for eRx and Interaction Alerts* 04/07/20 14 Active propranolol hydrochloride 40 MG Oral Tablet ORAL propranolol hydrochloride 40 MG Oral TabletOriginal Medicationpropranolol hydrochloride 40 MG Oral Tablet *Reorder from [facility] for eRx and Interaction Alerts* 04/07/20 14 Active levothyroxine sodium 0.1 MG Oral Capsule ORAL levothyroxine sodium 0.1 MG Oral CapsuleOriginal Medicationlevothyroxine sodium 0.1 MG Oral Capsule *Reorder from [facility] for eRx and Interaction Alerts* 04/07/20 14 Active esomeprazole 20 MG Injection INTRAVENOUS esomeprazole 20 MG InjectionOriginal Medicationesomeprazole 20 MG Injection *Reorder from [facility] for eRx and Interaction Alerts* 04/07/20 14 Active cinnamon bark 500 MG Oral Capsule ORAL cinnamon bark 500 MG Oral CapsuleOriginal Medicationcinnamon bark 500 MG Oral Capsule *Reorder from [facility] for eRx and Interaction Alerts* 04/07/20 14 Active ciclopirox 80 MG/ML Topical Solution CUTANEOUS ciclopirox 80 MG/ML Topical SolutionOriginal Medicationciclopirox 80 MG/ML Topical Solution *Reorder from [facility] for eRx and Interaction Alerts* 04/20/20 12 Active Social History Social History Additional Details Category Social Info Options Details Migrated Social History Migrated Social History History of tobacco use : , Smoking Status : Never smoked Encounters Encounter Location Date Provider Diagnosis [address] [phone] 01/02/2025 WILFREDO BRODERICK Tinea unguium B35.1 ; [...] utilizing a #15 blade 01/02/2025 Atherosclerosis of [place] arteries of extremities [...] pared utilizing a #15 blade Atherosclerosis of [place] ar teries of extremities with intermittent claudication, [...] Details Provider Name:WILFREDO MARTIN, 07/24/2025 11:40:00 AM, [address] [place] [address], [phone], History and Physical Notes * HPI (History [...] MATEUSZ MONROE ADOB:[birth year] (59 yo F)Acc No.[id number]:01/02/2025 Patient: MATEUSZ ZHU Provider: Gavi BRODERICK :1965 A ge:59 Y S ex:Female Date:01/02/2025 Address:[address] [place], [place] [id number] Subjective: * Chief Complaints: * * General [...] Medicationallopurinol 300 MG Oral Tablet *Reorder from [email or web address] for eRx and Interaction Alerts*Spironolactone 25 MG Oral Tablet ORAL , Notes to Pharmacist: spironolactone 25 MG Oral TabletOriginal Medicationspironolactone 25 MG Oral Tablet *Reorder from [facility] for eRx and Interaction Alerts*Nabumetone 500 MG Oral Tablet ORAL , Notes to Pharmacist: nabumetone 500 MG Oral TabletOriginal Medicationnabumetone 500 MG Oral Tablet *Reorder from [facility] for eRx and Interaction Alerts*Pravastatin Sodium 10 MG Oral Tablet ORAL , Notes to Pharmacist: pravastatin sodium 10 MG Oral TabletOriginal Medicationpravastatin sodium 10 MG Oral Tablet *Reorder from [facility] for eRx and Interaction Alerts*Losartan Potassium 100 MG Oral Tablet ORAL , Notes to Pharmacist: losartan potassium 100 MG Oral TabletOriginal Medicationlosartan potassium 100 MG Oral Tablet *Reorder from [facility] for eRx and Interaction Alerts*3 ML insulin glargine 100 UNT/ML Pen Injector [Lantus] , Notes to Pharmacist: 3 ML insulin glargine 100 UNT/ML Pen Injector [Lantus]Original Medication3 ML insulin glargine 100 UNT/ML Pen Injector [Lantus] *Reorder from [facility] for eRx and Interaction Alerts*cholecalciferol 0.025 MG Oral Capsule ORAL , Notes to Pharmacist: cholecalciferol 0.025 MG Oral CapsuleOriginal Medicationcholecalciferol 0.025 MG Oral Capsule *Reorder from [facility] for eRx and Interaction Alerts*ciclopirox 80 MG/ML Topical Solution CUTANEOUS , Notes to Pharmacist: ciclopirox 80 MG/ML Topical SolutionOriginal Medicationciclopirox 80 MG/ML Topical Solution *Reorder from [facility] for eRx and Interaction Alerts*cinnamon bark 500 MG Oral Capsule ORAL , Notes to Pharmacist: cinnamon bark 500 MG Oral CapsuleOriginal Medicationcinnamon bark 500 MG Oral Capsule *Reorder from [facility] for eRx and Interaction Alerts*esomeprazole 20 MG Injection INTRAVENOUS , Notes to Pharmacist: esomeprazole 20 MG InjectionOriginal Medicationesomeprazole 20 MG Injection *Reorder from [facility] for eRx and Interaction Alerts*levothyroxine sodium 0.1 MG Oral Capsule ORAL , Notes to Pharmacist: levothyroxine sodium 0.1 MG Oral CapsuleOriginal Medicationlevothyroxine sodium 0.1 MG Oral Capsule *Reorder from [facility] for eRx and Interaction Alerts*nortriptyline 50 MG Oral Capsule ORAL , Notes to Pharmacist: nortriptyline 50 MG Oral CapsuleOriginal Medicationnortriptyline 50 MG Oral Capsule *Reorder from [facility] for eRx and Interaction Alerts*propranolol hydrochloride 40 MG Oral Tablet ORAL , Notes to Pharmacist: propranolol hydrochloride 40 MG Oral TabletOriginal Medicationpropranolol hydrochloride 40 MG Oral Tablet *Reorder from [facility] for eRx and Interaction Alerts*verapamil hydrochloride 40 MG Oral Tablet ORAL , Notes to Pharmacist: verapamil hydrochloride 40 MG Oral TabletOriginal Medicationverapamil hydrochloride 40 MG Oral Tablet *Reorder from [facility] for eRx and Interaction Alerts*Medication List reviewed and reconciled with the patientTaking Allopurinol 300 MG Oral Tablet ORAL , Notes to Pharmacist: allopurinol 300 MG Oral TabletOriginal Medicationallopurinol 300 MG Oral Tablet *Reorder from [facility] for eRx and Interaction Alerts*Taking Spironolactone 25 MG Oral Tablet ORAL , Notes to Pharmacist: spironolactone 25 MG Oral TabletOriginal Medicationspironolactone 25 MG Oral Tablet *Reorder from [facility] for eRx and Interaction Alerts*Taking Nabumetone 500 MG Oral Tablet ORAL , Notes to Pharmacist: nabumetone 500 MG Oral TabletOriginal Medicationnabumetone 500 MG Oral Tablet *Reorder from [facility] for eRx and Interaction Alerts*Taking Pravastatin Sodium 10 MG Oral Tablet ORAL , Notes to Pharmacist: pravastatin sodium 10 MG Oral TabletOriginal Medicationpravastatin sodium 10 MG Oral Tablet *Reorder from [facility] for eRx and Interaction Alerts*Taking Losartan Potassium 100 MG Oral Tablet ORAL , Notes to Pharmacist: losartan potassium 100 MG Oral TabletOriginal Medicationlosartan potassium 100 MG Oral Tablet *Reorder from [facility] for eRx and Interaction Alerts*Taking 3 ML insulin glargine 100 UNT/ML Pen Injector [Lantus] , Notes to Pharmacist: 3 ML insulin glargine 100 UNT/ML Pen Injector [Lantus]Original Medication3 ML insulin glargine 100 UNT/ML Pen Injector [Lantus] *Reorder from [facility] for eRx and Interaction Alerts*Taking cholecalciferol 0.025 MG Oral Capsule ORAL , Notes to Pharmacist: cholecalciferol 0.025 MG Oral CapsuleOriginal Medicationcholecalciferol 0.025 MG Oral Capsule *Reorder from [facility] for eRx and Interaction Alerts*Taking ciclopirox 80 MG/ML Topical Solution CUTANEOUS , Notes to Pharmacist: ciclopirox 80 MG/ML Topical SolutionOriginal Medicationciclopirox 80 MG/ML Topical Solution *Reorder from [facility] for eRx and Interaction Alerts*Taking cinnamon bark 500 MG Oral Capsule ORAL , Notes to Pharmacist: cinnamon bark 500 MG Oral CapsuleOriginal Medicationcinnamon bark 500 MG Oral Capsule *Reorder from [facility] for eRx and Interaction Alerts*Taking esomeprazole 20 MG Injection INTRAVENOUS , Notes to Pharmacist: esomeprazole 20 MG InjectionOriginal Medicationesomeprazole 20 MG Injection *Reorder from [facility] for eRx and Interaction Alerts*Taking levothyroxine sodium 0.1 MG Oral Capsule ORAL , Notes to Pharmacist: levothyroxine sodium 0.1 MG Oral CapsuleOriginal Medicationlevothyroxine sodium 0.1 MG Oral Capsule *Reorder from [facility] for eRx and Interaction Alerts*Taking nortriptyline 50 MG Oral Capsule ORAL , Notes to Pharmacist: nortriptyline 50 MG Oral CapsuleOriginal Medicationnortriptyline 50 MG Oral Capsule *Reorder from [facility] for eRx and Interaction Alerts*Taking propranolol hydrochloride 40 MG Oral Tablet ORAL , Notes to Pharmacist: propranolol hydrochloride 40 MG Oral TabletOriginal Medicationpropranolol hydrochloride 40 MG Oral Tablet *Reorder from [facility] for eRx and Interaction Alerts*Taking verapamil hydrochloride 40 MG Oral Tablet ORAL , Notes to Pharmacist: verapamil hydrochloride 40 MG Oral TabletOriginal Medicationverapamil hydrochloride 40 MG Oral Tablet *Reorder from [facility] for eRx and Interaction Alerts*Medication List reviewed [...] a #15 blade 3. A therosclerosis of [place] arteries of [...] rash/allergic reaction Billing Information: * Visit Code: 43877 Office Visit, Est Pt., Level 3. * Procedure Codes: * Electronic signature of KINA BRODERICK DPM on 07/01/2025 at 10:45 AM ART TRACER Sign off status: Pending * Provider: Gavi BRODERICK Date: 0 01/02/2025 Generated for Curt small/Ana Maria/Jose on: 1 08/31/2024 10:45 AM ART TRACER
--- OUTSIDE RECORDS SUMMARY | 2025-03-06 07:30 | XMS_ITS ---
Author Organization [facility] Address [address] [place], [place] [id number] Care Team Providers Care Bug Trimmer Name Role Phone MIRIAN MOSHER Unavailable [phone] Virgilio Meehan Unavailable Unavailable WILFREDO BRODERICK Unavailable [phone] REASON FOR VISIT *General care Medications Medication SIG (Take, Route, Frequency, Duration) Notes Start Date End Date Status levothyroxine sodium 0.1 MG Oral Capsule ORAL levothyroxine sodium 0.1 MG Oral CapsuleOriginal Medicationlevothyroxine sodium 0.1 MG Oral Capsule *Reorder from [employer] for eRx and Interaction Alerts* 04/07/20 14 Active nortriptyline 50 MG Oral Capsule ORAL nortriptyline 50 MG Oral CapsuleOriginal Medicationnortriptyline 50 MG Oral Capsule *Reorder from [employer] for eRx and Interaction Alerts* 04/07/20 14 Active ciclopirox 80 MG/ML Topical Solution CUTANEOUS ciclopirox 80 MG/ML Topical SolutionOriginal Medicationciclopirox 80 MG/ML Topical Solution *Reorder from [employer] for eRx and Interaction Alerts* 04/20/20 12 Active cinnamon bark 500 MG Oral Capsule ORAL cinnamon bark 500 MG Oral CapsuleOriginal Medicationcinnamon bark 500 MG Oral Capsule *Reorder from [employer] for eRx and Interaction Alerts* 04/07/20 14 Active esomeprazole 20 MG Injection INTRAVENOUS esomeprazole 20 MG InjectionOriginal Medicationesomeprazole 20 MG Injection *Reorder from [employer] for eRx and Interaction Alerts* 04/07/20 14 Active Nabumetone 500 MG Oral Tablet ORAL nabumetone 500 MG Oral TabletOriginal Medicationnabumetone 500 MG Oral Tablet *Reorder from [facility] for eRx and Interaction Alerts* 06/29/20 12 Active Pravastatin Sodium 10 MG Oral Tablet ORAL pravastatin sodium 10 MG Ora l TabletOriginal Medicationpravastatin sodium 10 MG Oral Tablet *Reorder from [facility] for eRx and Interaction Alerts* 04/07/20 14 Active Losartan Potassium 100 MG Oral Tablet ORAL losartan potassium 100 MG Oral TabletOriginal Medicationlosartan potassium 100 MG Oral Tablet *Reorder from [facility] for eRx and Interaction Alerts* 04/07/20 14 Active 3 ML insulin glargine 100 UNT/ML Pen Injector [Lantus] 3 ML insulin glargine 100 UNT/ML Pen Injector [Lantus]Original Medication3 ML insulin glargine 100 UNT/ML Pen Injector [Lantus] *Reorder from [facility] for eRx and Interaction Alerts* 04/07/20 14 Active cholecalciferol 0.025 MG Oral Capsule ORAL cholecalciferol 0.025 MG Ora l CapsuleOriginal Medicationcholecalciferol 0.025 MG Oral Capsule *Reorder from [facility] for eRx and Interaction Alerts* 04/07/20 14 Active verapamil hydrochloride 40 MG Oral Tablet ORAL verapamil hydrochloride 40 M G Oral TabletOriginal Medicationverapamil hydrochloride 40 MG Oral Tablet *Reorder from [facility] for eRx and Interaction Alerts* 04/07/20 14 Active propranolol hydrochloride 40 MG Oral Tablet ORAL propranolol hydrochloride 40 MG Oral TabletOriginal Medicationpropranolol hydrochloride 40 MG Oral Tablet *Reorder from [facility] for eRx and Interaction Alerts* 04/07/20 14 Active Allopurinol 300 MG Oral Tablet ORAL allopurinol 300 MG Oral TabletOriginal Medicationallopurinol 300 MG Oral Tablet *Reorder from [facility] for eRx and Interaction Alerts* 04/07/20 14 Active Spironolactone 25 MG Oral Tablet ORAL spironolactone 25 MG Oral TabletOriginal Medicationspironolactone 25 MG Oral Tablet *Reorder from [facility] for eRx and Interaction Alerts* 04/07/20 14 Active Social History Social History Additional Details Category Social Info Options Details Migrated Social History Migrated Social History History of tobacco use : , Smoking Status : Never smoked Vital Signs Height 67.00 in 03/06/2025 Weight 251 lbs 03/06/2025 BMI 39.31 kg/m2 03/06/2025 Height-cm 170.18 cm 03/06/2025 Weight-kg 113.85 kg 03/06/2025 Encounters Encounter Location Date Provider Diagnosis [address] [id number] 03/06/2025 WILFREDO BRODERICK Fungal infection of nail B35.1 ; Pain in right toe(s) M79.674 ; Pain in left toe(s) M79.675 and Atherosclerosis of andreafski arteries of extremities with intermittent claudication, bilateral legs I70.213 Assessments Encounter Date Diagnosis (ICD Code) Assessment Notes Treatment Notes Treatment Clinical Notes Section Notes 03/06/2025 Fungal infection of nail (ICD-10 - B35.1) 03/06/2025 Pain in right toe(s) (ICD-10 - M79.674) 03/06/2025 Pain in left toe(s) (ICD-10 - M79.675) 03/06/2025 Atherosclerosis of andreafski arteries of extremities with intermittent claudication, bilateral legs (ICD-10 - I70.213) Plan Of Treatment Next Appt Details Provider Name:WILFREDO Sanchez EDINSON HERNÁNDEZFATUMA, 07/24/2025 11:40:00 AM, [address] [place] [address], [phone], History and Physical Notes * HPI (History of Present Illness) Category Sub-Category Detail Notes Category Not es HPI General care Patient presents to the office for diabetic foot care. Patient states that their nails are thickened, elongated and painful. Patient states that it is aggravated by shoe gear. Onset is gradual., Patient denies taking blood thinners., Date last seen by Dr. Mendoza was 02/2025., Initials mca Progress Notes * MATEUSZ MONROE ADOB:[birth year] (59 yo F)Acc No.[id number]:03/06/2025 Patient: Zay MATEUSZ SNIDER Provider: Gavi BRODERICK :1965 A ge:59 Y S ex:Female Date:03/06/2025 Address:[facility] Subjective: * Chief Complaints: * * General care * HPI: H PI: General care P sheldon presents to the office for diabetic foot care. Patient states that their nails are thickened, elongated and painful. Patient states that it is aggravated by shoe gear. Onset is gradual., Patient denies taking blood thinners., Date last seen by Dr. Mendoza was 02/2025., Initials mca. * Medical History: Diabetic Medical History Verified * Family History: F ather: PRN - [...] Oral Tablet *[facility] Interaction [facility]*Spironolactone 25 MG Oral Tablet ORAL , Notes to Pharmacist: spironolactone 25 MG Oral TabletOriginal Medicationspironolactone 25 MG Oral Tablet *[facility] for eRx and Interaction Alerts*Nabumetone 500 MG Oral Tablet ORAL , Notes to Pharmacist: nabumetone 500 MG Oral TabletOriginal Medicationnabumetone 500 MG Oral Tablet *[facility] Interaction Alert[facility]*Pravastatin Sodium 10 MG Oral Tablet ORAL , Notes to Pharmacist: pravastatin sodium 10 MG Oral TabletOriginal Medicationpravastatin sodium 10 MG Oral Tablet *[facility] for [facility] and Interaction Alerts*Losartan Potassium 100 MG Oral Tablet ORAL , Notes to Pharmacist: losartan potassium 100 MG Oral TabletOriginal Medicationlosartan potassium 100 MG Oral Tablet *Reorder from [facility] for eRx and Interaction Alerts*3 ML insulin glargine 100 UNT/ML Pen Injector [Lantus] , Notes to Pharmacist: 3 ML insulin glargine 100 UNT/ML Pen Injector [Lantus]Original Medication3 ML insulin glargine 100 UNT/ML Pen Injector [Lantus] *Reorder from [facility] for eRx and Interaction Alerts*cholecalciferol 0.025 MG Oral Capsule ORAL , Notes to Pharmacist: cholecalciferol 0.025 MG Oral CapsuleOriginal Medicationcholecalciferol 0.025 MG Oral Capsule *Reorder from [facility] for eRx and Interaction Alerts*ciclopirox 80 MG/ML Topical Solution CUTANEOUS , Notes to Pharmacist: ciclopirox 80 MG/ML Topical SolutionOriginal Medicationciclopirox 80 MG/ML Topical Solution *Reorder from [facility] for eRx and Interaction Alerts*cinnamon bark 500 MG Oral Capsule ORAL , Notes to Pharmacist: cinnamon bark 500 MG Oral CapsuleOriginal Medicationcinnamon bark 500 MG Oral Capsule *Reorder from [facility] for eRx and Interaction Alerts*esomeprazole 20 MG Injection INTRAVENOUS , Notes to Pharmacist: esomeprazole 20 MG InjectionOriginal Medicationesomeprazole 20 MG Injection *Reorder from [facility] for eRx and Interaction Alerts*levothyroxine sodium 0.1 MG Oral Capsule ORAL , Notes to Pharmacist: levothyroxine sodium 0.1 MG Oral CapsuleOriginal Medicationlevothyroxine sodium 0.1 MG Oral Capsule *Reorder from [facility] for eRx and Interaction Alerts*nortriptyline 50 MG Oral Capsule ORAL , Notes to Pharmacist: nortriptyline 50 MG Oral CapsuleOriginal Medicationnortriptyline 50 MG Oral Capsule *Reorder from [facility] for eRx and Interaction Alerts*propranolol hydrochloride 40 MG Oral Tablet ORAL , Notes to Pharmacist: propranolol hydrochloride 40 MG Oral TabletOriginal Medicationpropranolol hydrochloride 40 MG Oral Tablet *Reorder from [facility] for eRx and Interaction Alerts*verapamil hydrochloride 40 MG Oral Tablet ORAL , Notes to Pharmacist: verapamil hydrochloride 40 MG Oral TabletOriginal Medicationverapamil hydrochloride 40 MG Oral Tablet *Reorder from [facility] for eRx and Interaction Alerts*Medication List reviewed and reconciled with the patientTaking Allopurinol 300 MG Oral Tablet ORAL , Notes to Pharmacist: allopurinol 300 MG Oral TabletOriginal Medicationallopurinol 300 MG Oral Tablet *Reorder from [facility] for eRx and Interaction Alerts*Taking Spironolactone 25 MG Oral Tablet ORAL , Notes to Pharmacist: spironolactone 25 MG Oral TabletOriginal Medicationspironolactone 25 MG Oral Tablet *Reorder from [facility] for eRx and Interaction Alerts*Taking Nabumetone 500 MG Oral Tablet ORAL , Notes to Pharmacist: nabumetone 500 MG Oral TabletOriginal Medicationnabumetone 500 MG Oral Tablet *Reorder from [facility] for eRx and Interaction Alerts*Taking Pravastatin Sodium 10 MG Oral Tablet ORAL , Notes to Pharmacist: pravastatin sodium 10 MG Oral TabletOriginal Medicationpravastatin sodium 10 MG Oral Tablet *Reorder from [facility] for eRx and Interaction Alerts*Taking Losartan Potassium 100 MG Oral Tablet ORAL , Notes to Pharmacist: losartan potassium 100 MG Oral TabletOriginal Medicationlosartan potassium 100 MG Oral Tablet *Reorder from [facility] for eRx and Interaction Alerts*Taking 3 ML insulin glargine 100 UNT/ML Pen Injector [Lantus] , Notes to Pharmacist: 3 ML insulin glargine 100 UNT/ML Pen Injector [Lantus]Original Medication3 ML insulin glargine 100 UNT/ML Pen Injector [Lantus] *Reorder from [facility] for eRx and Interaction Alerts*Taking cholecalciferol 0.025 MG Oral Capsule ORAL , Notes to Pharmacist: cholecalciferol 0.025 MG Oral CapsuleOriginal Medicationcholecalciferol 0.025 MG Oral Capsule *Reorder from [facility] for eRx and Interaction Alerts*Taking ciclopirox 80 MG/ML Topical Solution CUTANEOUS , Notes to Pharmacist: ciclopirox 80 MG/ML Topical SolutionOriginal Medicationciclopirox 80 MG/ML Topical Solution *Reorder from [facility] for eRx and Interaction Alerts*Taking cinnamon bark 500 MG Oral Capsule ORAL , Notes to Pharmacist: cinnamon bark 500 MG Oral CapsuleOriginal Medicationcinnamon bark 500 MG Oral Capsule *Reorder from [facility] for eRx and Interaction Alerts*Taking esomeprazole 20 MG Injection INTRAVENOUS , Notes to Pharmacist: esomeprazole 20 MG InjectionOriginal Medicationesomeprazole 20 MG Injection *Reorder from [facility] for eRx and Interaction Alerts*Taking levothyroxine sodium 0.1 MG Oral Capsule ORAL , Notes to Pharmacist: levothyroxine sodium 0.1 MG Oral CapsuleOriginal Medicationlevothyroxine sodium 0.1 MG Oral Capsule *Reorder from [facility] for eRx and Interaction Alerts*Taking nortriptyline 50 MG Oral Capsule ORAL , Notes to Pharmacist: nortriptyline 50 MG Oral CapsuleOriginal Medicationnortriptyline 50 MG Oral Capsule *Reorder from [facility] for eRx and Interaction Alerts*Taking propranolol hydrochloride 40 MG Oral Tablet ORAL , Notes to Pharmacist: propranolol hydrochloride 40 MG Oral TabletOriginal Medicationpropranolol hydrochloride 40 MG Oral Tablet *Reorder from [facility] for eRx and Interaction Alerts*Taking verapamil hydrochloride 40 MG Oral Tablet ORAL , Notes to Pharmacist: verapamil hydrochloride 40 MG Oral TabletOriginal Medicationverapamil hydrochloride 40 MG Oral Tablet *Reorder from [facility] for eRx and Interaction Alerts*Medication List reviewed and reconciled with the patient Objective: * Vitals: W t:251lbs, Wt-k.85 kg, Ht: 67.00 in, Ht-cm: 170.18 cm, BMI:39.31Index, Body Surface Area: 2.32. Assessment: * Assessment: 1. F ungal infection of nail - B35.1 (Primary) 2 . P ain in right toe(s) - M79.674 3 . P ain in left toe(s) - M79.675 4 . A therosclerosis of andreafski arteries of extremities with intermittent claudication, bilateral legs - I70.213 ? Plan: * Immunizations: Immunization record has been reviewed and updated. * Procedure Codes: 1 1721 DEBRIDE NAIL, 6 OR MORE, Modifiers: Q8 Billing Information: * Procedure Codes: 46844 DEBRIDE NAIL, 6 OR MORE. Modifiers: Q8 * Electronic signature of KINA BRODERICK DPM on 07/01/2025 at 10:46 AM ACUTE SPECIALIST Sign off status: Pending * Provider: Gavi BRODERICK Date: 0 03/06/2025 Generated for Curt small/Ana Maria/Kellyitting on: 1 08/31/2024 10:46 AM ACUTE SPECIALIST
--- OUTSIDE RECORDS SUMMARY | 2025-03-06 07:30 | XMS_ITS ---
Author Organization [facility] Address [address] [place], [place] [id number] Care Team Providers Care Physics Technician Name Role Phone MIRIAN MOSHER Unavailable [phone] Virgilio Meehan Unavailable Unavailable WILFREDO BORDERICK Unavailable [phone] REASON FOR VISIT *General care Encounters Encounter Location Date Provider Diagnosis [facility] [address] [place], [place] [id number] 03/06/2025 WILFREDO BRODERICK Tinea unguium B35.1 ; Acquired 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 ; Atherosclerosis of [place] arteries of extremities with intermittent claudication, bilateral legs I70.213 ; Pain in right foot M79.671 and Pain in left foot M79.672 Assessments Encounter Date Diagnosis (ICD Code) Assessment Notes Treatment Notes Treatment Clinical Notes Section Notes 03/06/2025 Tinea unguium (ICD-10 - B35.1) Nails 1-5 Bilateral were debrided extensively with nail nippers and emery board, reducing length and girth to pink healthy tissue with any subungual debris and necrotic tissue removed 03/06/2025 Acquired keratosis [keratoderma] palmaris et plantaris (ICD-10 - L85.1) A total of 2 corns or calluses, as described in the note above, were cut and pared utilizing a #15 blade 03/06/2025 Atherosclerosis of [place] arteries of extremities with intermittent claudication, bilateral legs (ICD-10 - I70.213) Check and protect LE bilateral daily. Call if any changes or concerns. 03/06/2025 Pain in right foot (ICD-10 - M79.671) Patient was instructed to try an OTC topical pain reliever/anti-i nflammatory such as Voltaren Gel, Aspercreme with Lidocaine, or Biofreeze etc over the affected areas. Spot test on hand or somewhere visible prior to starting to watch for possible rash/allergic reaction 03/06/2025 Pain in left foot (ICD-10 - M79.672) [...] pared utilizing a #15 blade Atherosclerosis of [place] ar teries of extremities with intermittent claudication, [...] for possible rash/allergic reaction Next Appt Details Follow Up: 10 - 12 weeks, Re ason: At-Risk Foot care, sooner if problems develop. Provider Name:WILFREDO MARTIN, 07/24/2025 11:40:00 AM, [address] [place] [address], [phone], History and Physical Notes * Examination Category Sub-Category Detail Notes Category Not [...] MATEUSZ MONROE ADOB:[birth year] (59 yo F)Acc No.[id number]:03/06/2025 Patient: MATEUSZ ZHU A Provider: Gavi BRODERICK :1965 A ge:59 Y S ex:Female Date:03/06/2025 Address:[address] [place] [address] Subjective: * Chief Complaints: * * General care * ROS: G eneral / Constitutional: Patient [...] b alance difficulty, confusion, difficulty speaking, dizziness. Objective: * Examination: P hysical Examination: General [...] - L85.1 3 . A therosclerosis of [place] arteries of extremities with intermittent claudication, bilateral [...] a #15 blade 3. A therosclerosis of [place] arteries of extremities with intermittent claudication, bilateral [...] to watch for possible rash/allergic reaction * Follow Up: 1 0 - 12 weeks (Reason: At-Risk Foot care, sooner if problems develop.) Billing Information: * Procedure Codes: * Electronic signature of KINA BRODERICK DPM on 07/01/2025 at 10:46 AM ACTUARIAL DIRECTOR Sign off status: Pending * Provider: Gavi BRODERICK Date: 0 03/06/2025 Generated for Curt small/Ana Maria/Jose on: 1 08/31/2024 10:46 AM ACTUARIAL DIRECTOR
--- OUTSIDE RECORDS SUMMARY | 2025-05-08 07:50 | XMS_ITS ---
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 Name Role Phone MIRIAN MOSHER Unavailable [phone] Virgilio Meehan Unavailable Unavailable WILFREDO BRODERICK Unavailable [phone] Allergies No Known Allergies REASON FOR VISIT *General care Medications Medication SIG (Take, Route, Frequency, Duration) Notes Start Date End Date Status nortriptyline 50 MG Oral Capsule ORAL nortriptyline 50 MG Oral CapsuleOriginal Medicationnortriptyline 50 MG Oral Capsule *Reorder from [employer] for eRx and Interaction Alerts* 04/07/20 14 Active propranolol hydrochloride 40 MG Oral Tablet ORAL propranolol hydrochloride 40 MG Oral TabletOriginal Medicationpropranolol hydrochloride 40 MG Oral Tablet *Reorder from [employer] for eRx and Interaction Alerts* 04/07/20 14 Active verapamil hydrochloride 40 MG Oral Tablet ORAL verapamil hydrochloride 40 M G Oral TabletOriginal Medicationverapamil hydrochloride 40 MG Oral Tablet *Reorder from [employer] for eRx and Interaction Alerts* 04/07/20 14 Active esomeprazole 20 MG Injection INTRAVENOUS esomeprazole 20 MG InjectionOriginal Medicationesomeprazole 20 MG Injection *Reorder from [employer] for eRx and Interaction Alerts* 04/07/20 14 Active levothyroxine sodium 0.1 MG Oral Capsule ORAL levothyroxine sodium 0.1 MG Oral CapsuleOriginal Medicationlevothyroxine sodium 0.1 MG Oral Capsule *Reorder from [employer] for eRx and Interaction Alerts* 04/07/20 14 [facility] and Interaction Alert[facility]* 04/20/20 12 [...] eRx and Interaction Alerts* 06/29/20 12 Active Allopurinol 300 MG Oral Tablet ORAL [...] Never smoked Vital Signs Height 67.00 in 05/08/2025 Weight 251 lbs 05/08/2025 BMI 39.31 kg/m2 05/08/2025 Height-cm 170.18 cm 05/08/2025 Weight-kg 113.85 kg 05/08/2025 Encounters Encounter Location Date Provider Diagnosis [address] [id number] 05/08/2025 WILFREDO MEGGAN Tinea unguium B35.1 ; Other acquired deformities of right foot M21.6X1 ; Acquired 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 ; Atherosclerosis of tolowa de[place]-ni' arteries of extremities with intermittent claudication, bilateral legs I70.213 ; Pain in right foot M79.671 and Pain in left foot M79.672 Assessments Encounter Date Diagnosis (ICD Code) Assessment Notes Treatment Notes Treatment Clinical Notes Section Notes 05/08/2025 Tinea unguium (ICD-10 - B35.1) Nails 1-5 Bilateral were debrided extensively with nail nippers and emery board, reducing length and girth to pink healthy tissue with any subungual debris and necrotic tissue removed 05/08/2025 Other acquired deformities of right foot (ICD-10 - M21.6X1) 05/08/2025 Acquired keratosis [keratoderma] palmaris et plantaris (ICD-10 - L85.1) A total of 2 corns or calluses, as described in the note above, were cut and pared utilizing a #15 blade 05/08/2025 Atherosclerosis of tolowa dee-ni' arteries of extremities with intermittent claudication, bilateral legs (ICD-10 - I70.213) Check and protect LE bilateral daily. Call if any changes or concerns. 05/08/2025 Pain in right foot (ICD-10 - M79.671) Patient was instructed to try an OTC topical pain reliever/anti-i nflammatory such as Voltaren Gel, Aspercreme with Lidocaine, or Biofreeze etc over the affected areas. Spot test on hand or somewhere visible prior to starting to watch for possible rash/allergic reaction TriLock Ankle Brace: A Trilok ankle brace was fitted and dispensed. The patient was instructed in its use. 05/08/2025 Pain in left foot (ICD-10 - M79.672) [...] pared utilizing a #15 blade Atherosclerosis of tolowa dee-ni' ar teries of extremities with intermittent claudication, bilateral legs Check and protect LE bilateral daily. Call if any changes or concerns. Pain in right foot Patient was instructed to try an OTC topical pain reliever/anti-inflammatory such as Voltaren Gel, Aspercreme with Lidocaine, or Biofreeze etc over the affected areas. Spot test on hand or somewhere visible prior to starting to watch for possible rash/allergic reaction TriLock Ankle Brace: A Trilok ankle brace was fitted and dispensed. The patient was instructed in its use. Next Appt Details Follow Up: 10 - 12 weeks, Re ason: At-Risk Foot care, sooner if problems develop. Provider Name:WILFREDO MARTIN, 07/24/2025 11:40:00 AM, [address] [place] [address], [phone], History and Physical Notes * HPI (History of Present Illness) Category Sub-Category Detail Notes Category Not es HPI General care Patient presents to the office for diabetic foot care. Patient states that their nails are thickened, elongated and painful. Patient states that it is aggravated by shoe gear. Onset is gradual., Patient denies taking blood thinners., Date last seen by Dr. Meehan was 02/2025., Initials nd Examination Category Sub-Category Detail Notes Category Not [...] MATEUSZ MONROE ADOB:[birth year] (59 yo F)Acc No.[id number]:05/08/2025 Patient: MATEUSZ ZHU A Provider: Gavi BRODERICK :1965 A ge:59 Y S ex:Female Date:05/08/2025 Address:[facility] [address] [place] [place] [id number] Subjective: * Chief Complaints: * * General care * HPI: H PI: General care P atient presents to the office for diabetic foot care. Patient states that their nails are thickened, elongated and painful. Patient states that it is aggravated by shoe gear. Onset is gradual., Patient denies taking blood thinners., Date last seen by Dr. Meehan was 02/2025., Initials nd. * ROS: G eneral / Constitutional: Patient [...] confusion, difficulty speaking, dizziness. * Medical History: Diabetic Medical History Verified * Surgical History: Denies Past Surgical History. Surgical History verified. * Hospitalization/Major Diagno stic Procedure: Denies Past Hospitalization. Hospitalization Verified. * Family History: F ather: PRN - Father: :: Hypertension,,known absent , :: Heart Disease < 55 yrs,,known absent , :: Pneumonia,,known absent , :: Stroke,,known absent , :: Diabetes,,known absent , :: Arthritis,,known absent . M other: PRN - Mother: :: Arthritis,,known absent , :: Hypertension,,known absent , :: Heart Disease < 55 yrs,,known absent , :: Gout,,known absent . B [place]: SIB - Brother: . S islashay: SIB - Sister: . Mary amily History Verified.. * Social History: M igrated Social History: M igrated Social History: History of tobacco use : , Smoking Status : Never smoked. Social History Verified. * Medications: T akingAllopurinol 300 MG Oral Tablet ORAL , Notes to Pharmacist: allopurinol 300 MG Oral TabletOriginal Medicationallopurinol 300 MG Oral Tablet *Reorder from [facility] for eRx and Interaction Alerts*Spironolactone 25 MG Oral Tablet ORAL , Notes to Pharmacist: spironolactone 25 MG Oral TabletOriginal Medicationspironolactone 25 MG Oral Tablet *Reorder from [facility] for eRx and Interaction Alerts*Nabumetone 500 MG Oral Tablet ORAL , Notes to Pharmacist: nabumetone 500 MG Oral TabletOriginal Medicationnabumetone 500 MG Oral Tablet *Reorder from [facility] for eRx and Interaction Alerts*Pravastatin Sodium 10 MG Oral Tablet ORAL , Notes to Pharmacist: pravastatin sodium 10 MG Oral TabletOriginal Medicationpravastatin sodium 10 MG Oral Tablet *Reorder from [facility] for eRx and Interaction Alerts*Losartan Potassium 100 MG Oral Tablet ORAL , Notes to Pharmacist: losartan potassium 100 MG Oral TabletOriginal Medicationlosartan potassium 100 MG Oral Tablet *Reorder from [facility] for eRx and Interaction Alerts*3 ML insulin glargine 100 UNT/ML Pen Injector [Lantus] , Notes to Pharmacist: 3 ML insulin glargine 100 UNT/ML Pen Injector [Lantus]Original Medication3 ML insulin glargine 100 UNT/ML Pen Injector [Lantus] *Reorder from [facility] for eRx and Interaction Alerts*cholecalciferol 0.025 MG Oral Capsule ORAL , Notes to Pharmacist: cholecalciferol 0.025 MG Oral CapsuleOriginal Medicationcholecalciferol 0.025 MG Oral Capsule *Reorder from [facility] for eRx and Interaction Alerts*ciclopirox 80 MG/ML Topical Solution CUTANEOUS , Notes to Pharmacist: ciclopirox 80 MG/ML Topical SolutionOriginal Medicationciclopirox 80 MG/ML Topical Solution *Reorder from [facility] for eRx and Interaction Alerts*cinnamon bark 500 MG Oral Capsule ORAL , Notes to Pharmacist: cinnamon bark 500 MG Oral CapsuleOriginal Medicationcinnamon bark 500 MG Oral Capsule *Reorder from [facility] for eRx and Interaction Alerts*esomeprazole 20 MG Injection INTRAVENOUS , Notes to Pharmacist: esomeprazole 20 MG InjectionOriginal Medicationesomeprazole 20 MG Injection *Reorder from [facility] for eRx and Interaction Alerts*levothyroxine sodium 0.1 MG Oral Capsule ORAL , Notes to Pharmacist: levothyroxine sodium 0.1 MG Oral CapsuleOriginal Medicationlevothyroxine sodium 0.1 MG Oral Capsule *Reorder from [facility] for eRx and Interaction Alerts*nortriptyline 50 MG Oral Capsule ORAL , Notes to Pharmacist: nortriptyline 50 MG Oral CapsuleOriginal Medicationnortriptyline 50 MG Oral Capsule *Reorder from [facility] for eRx and Interaction Alerts*propranolol hydrochloride 40 MG Oral Tablet ORAL , Notes to Pharmacist: propranolol hydrochloride 40 MG Oral TabletOriginal Medicationpropranolol hydrochloride 40 MG Oral Tablet *Reorder from [facility] for eRx and Interaction Alerts*verapamil hydrochloride 40 MG Oral Tablet ORAL , Notes to Pharmacist: verapamil hydrochloride 40 MG Oral TabletOriginal Medicationverapamil hydrochloride 40 MG Oral Tablet *Reorder from [facility] for eRx and Interaction Alerts*Medication List reviewed and reconciled with the patientTaking Allopurinol 300 MG Oral Tablet ORAL , Notes to Pharmacist: allopurinol 300 MG Oral TabletOriginal Medicationallopurinol 300 MG Oral Tablet *Reorder from [facility] for eRx and Interaction Alerts*Taking Spironolactone 25 MG Oral Tablet ORAL , Notes to Pharmacist: spironolactone 25 MG Oral TabletOriginal Medicationspironolactone 25 MG Oral Tablet *Reorder from [facility] for eRx and Interaction Alerts*Taking Nabumetone 500 MG Oral Tablet ORAL , Notes to Pharmacist: nabumetone 500 MG Oral TabletOriginal Medicationnabumetone 500 MG Oral Tablet *Reorder from [facility] for eRx and Interaction Alerts*Taking Pravastatin Sodium 10 MG Oral Tablet ORAL , Notes to Pharmacist: pravastatin sodium 10 MG Oral TabletOriginal Medicationpravastatin sodium 10 MG Oral Tablet *Reorder from [facility] for eRx and Interaction Alerts*Taking Losartan Potassium 100 MG Oral Tablet ORAL , Notes to Pharmacist: losartan potassium 100 MG Oral TabletOriginal Medicationlosartan potassium 100 MG Oral Tablet *Reorder from [facility] for eRx and Interaction Alerts*Taking 3 ML insulin glargine 100 UNT/ML Pen Injector [Lantus] , Notes to Pharmacist: 3 ML insulin glargine 100 UNT/ML Pen Injector [Lantus]Original Medication3 ML insulin glargine 100 UNT/ML Pen Injector [Lantus] *Reorder from [facility] for eRx and Interaction Alerts*Taking cholecalciferol 0.025 MG Oral Capsule ORAL , Notes to Pharmacist: cholecalciferol 0.025 MG Oral CapsuleOriginal Medicationcholecalciferol 0.025 MG Oral Capsule *Reorder from [facility] for eRx and Interaction Alerts*Taking ciclopirox 80 MG/ML Topical Solution CUTANEOUS , Notes to Pharmacist: ciclopirox 80 MG/ML Topical SolutionOriginal Medicationciclopirox 80 MG/ML Topical Solution *Reorder from [facility] for eRx and Interaction Alerts*Taking cinnamon bark 500 MG Oral Capsule ORAL , Notes to Pharmacist: cinnamon bark 500 MG Oral CapsuleOriginal Medicationcinnamon bark 500 MG Oral Capsule *Reorder from [facility] for eRx and Interaction Alerts*Taking esomeprazole 20 MG Injection INTRAVENOUS , Notes to Pharmacist: esomeprazole 20 MG InjectionOriginal Medicationesomeprazole 20 MG Injection *Reorder from [facility] for eRx and Interaction Alerts*Taking levothyroxine sodium 0.1 MG Oral Capsule ORAL , Notes to Pharmacist: levothyroxine sodium 0.1 MG Oral CapsuleOriginal Medicationlevothyroxine sodium 0.1 MG Oral Capsule *Reorder from [facility] for eRx and Interaction Alerts*Taking nortriptyline 50 MG Oral Capsule ORAL , Notes to Pharmacist: nortriptyline 50 MG Oral CapsuleOriginal Medicationnortriptyline 50 MG Oral Capsule *Reorder from [facility] for eRx and Interaction Alerts*Taking propranolol hydrochloride 40 MG Oral Tablet ORAL , Notes to Pharmacist: propranolol hydrochloride 40 MG Oral TabletOriginal Medicationpropranolol hydrochloride 40 MG Oral Tablet *Reorder from [employer] for eRx and Interaction Alerts*Taking verapamil hydrochloride 40 MG Oral Tablet ORAL , Notes to Pharmacist: verapamil hydrochloride 40 MG Oral TabletOriginal Medicationverapamil hydrochloride 40 MG Oral Tablet *Reorder from [employer] for eRx and Interaction Alerts*Medication List reviewed and reconciled with the patient * Allergies: N .K.D.A.yesAllergies Verified. Objective: * Vitals: W t:251lbs, Wt-k.85 kg, Ht: 67.00 in, Ht-cm: 170.18 cm, BMI:39.31Index, Body Surface Area: 2.32. * Examination: P hysical Examination: General appearance: [...] inea unguium - B35.1 (Primary) 2 . O ther acquired deformities of right foot - M21.6X1 3 . A cquired keratosis [keratoderma] palmaris et plantaris - L85.1 4 . A therosclerosis of tolowa dee-ni' arteries of extremities with intermittent claudication, bilateral legs - I70.213 5 . P ain in right foot - M79.671 ? 6 . P ain in left foot - M79.672 Plan: * Treatment: 2. A cquired keratosis [keratoderma] palmaris et plantaris Notes: A total of 2 corns or calluses, as described in the note above, were cut and pared utilizing a #15 blade 3. A therosclerosis of tolowa dee-ni' arteries of extremities with intermittent claudication, bilateral [...] starting to watch for possible rash/allergic reaction T [employer]Lock Ankle Brace: A Trilok ankle brace was fitted and dispensed. The patient was instructed in its use. * Procedure Codes: L 1902 AFO ARMOND GACANDI PREFAB W/FIT&ADJ, Modifiers: RT , GA * Follow Up: 1 0 - 12 weeks (Reason: At-Risk Foot care, sooner if problems develop.) Billing Information: * Visit Code: 16379 Office Visit, Est Pt., Level 3. * Procedure Codes: L1902 AFO ANK GAUNTLT PREFAB W/FIT&ADJ. Modifiers: RT, GA * Electronic signature of KINA BRODERICK DPM on 07/01/2025 at 10:45 AM CRIME SCENE EXAMINER Sign off status: Pending * Provider: Gavi BRODERICK Date: 0 05/08/2025 Generated for Curt small/Ana Maria/Jose on: 1 08/31/2024 10:45 AM CRIME SCENE EXAMINER
--- NOTE | 2025-07-01 10:28 | ECG_ITS ---
Test Date: 2025-07-01 10:42:42 Measurements Intervals [place] Rate: 82 P: 59 WI: 165 QRS: -25 QRSD: 87 T: 49 QT: 350 QTc: 411 Interpretive Statements SINUS RHYTHM SEPTAL MYOCARDIAL INFARCTION , PROBABLY OLD [40+ ms Q WAVE IN V1/V2] Compared to ECG 01/27/2024 16:22:27 No significant changes Electronically Signed On 07-01-2025 18:09:36 LOGISTICS ADMINISTRATOR by Merna Owen M.D.
[2025-07-01 10:30] LABS: Hematocrit 36.9 % (35.0-49.0); Hemoglobin 11.8 g/dL (12.0-15.0)
--- OUTSIDE RECORDS SUMMARY | 2025-07-01 10:46 | XMS_ITS | Encounter Summary ---
Author Organization [facility] Address [facility] [place] [address] Care Team Providers Care Neck Cutter Name Role Phone Cee Liu APRN, ROBOT TECHNICIAN-C Unavailable Virgilio Meehan DO Primary Care Provider [phone] Mame Osborn MD Unavailable [phone] Encounter Details Date Type Department Care Team (Late st Contact Info) Description 11/12/2024 Abstract [facility] [address] [place] [address] [place] [address] [place] [address] Social History Tobacco Use Types Packs/Day Years [...] on filedocumented in this encounter Care Teams Neck Cutter Relationship Specialty Start Date End Date Virgilio Meehan DO [address] [place] [address] PCP - General FAMILY PRACTICE 09/08/22 Cee Liu APRN, ROBOT TECHNICIAN-C [address] [facility] [address] [place] [address] NURSE PRACTITIONER 05/27/22 Mame Osborn MD [address] [place] [address] INTERVENTIONAL CARDIOLOGY 05/10/24 documented as of this encounter
--- OUTSIDE RECORDS SUMMARY | 2025-07-01 10:46 | XMS_ITS | Encounter Summary ---
Author Organization [facility] Address [facility] [place] [address] Care Team Providers Care Home Health Care Social Worker Name Role Phone Alexis Thurman MD Unavailable [phone] Willian Mendoza MD Primary Care Provider [phone] Cee Liu APRN, MACHINE BRUSHER-C Unavailable [phone] Virgilio Meehan DO Primary Care Provider [phone] Mame Osborn MD Unavailable [phone] Encounter Details Date Type Department Care Team (Late st Contact Info) Description 06/24/2022 Hospital Orders Only [facility] Assistant Director Of Security Pre/Post [address] [place] [address] Alexis Thurman MD [address] [place] [address] Social History Tobacco Use Types [...] on filedocumented in this encounter Care Teams Home Health Care Social Worker Relationship Specialty Start Date End Date Willian Mendoza MD [address] [place] [address] PCP - General INTERNAL MEDICINE 09/14/18 09/07/22 Virgilio Meehan DO [address] [place] [address] PCP - General FAMILY PRACTICE 09/08/22 Alexis Thurman MD [address] [place] [address] [place] Tank Builder Supervisor CARDIOVASCULAR DISEASE 09/14/18 04/01/24 Cee Liu APRN, MACHINE BRUSHER-C [address] [facility] [address] [place] [address] NURSE PRACTITIONER 05/27/22 Mame Osborn MD [address] [place] [address] INTERVENTIONAL CARDIOLOGY 05/10/24 documented as of this encounter
--- OUTSIDE RECORDS SUMMARY | 2025-07-01 10:46 | XMS_ITS | Clinical Summary ---
Author Organization [facility] Address [facility] [place] [address] Care Team Providers Care Brazing Machine Operator Name Role Phone Cee Liu APRN, NP-C Unavailable Virgilio Meehan DO Primary Care Provider [phone] Mame Osborn MD Unavailable [phone] Allergies Active Allergy Reactions Criticality Noted Date Comments Amoxicillin-Pot Clavulanate Diarrhea 05/27/2022 Metformin Other (see comment) 05/27/2022 Renal function impairment Pantoprazole Other (see comment) 05/27/2022 Hypomagnesemia Medications CPAP DME DEVICE CPAPCPAP [id number] via IV [id number] Morrissey 8 Active allopurinol 100 MG tablet [...] Type Department Care Team Description 06/20/2025 Telephone [facility] [address] [place] [address] Casper Thurman MD Information 05/07/2025 1:30 PM CDT Office Visit [facility] [address] [place] [address] Casper Thurman MD Follow Up 05/07/2025 Travel 05/07/2025 Orders Only [facility] [address] [place] [address] Casper Thurman MD 05/06/2025 Telephone [facility] [address] [place] [address] Casper Thurman MD Appointment Reminder 05/06/2025 Telephone [facility] [address] [place] [address] Regulo Fitzpatrick MD Appointment Reminder from Last [...] 36.2 C (97.2 F) 06/29/2022 6:18 AM URBAN FORESTER Respiratory Rate 16 05/07/2025 1:03 PM CDT [...] this topic Medical Devices Implanted Type Area Global Lead Device Identifier Shelf Expiration Date Model / Serial / Lot Stent Ureteral [place] Sci Contour 6fr X 26cm - [id number] Implanted:Qty : 1 on 06/28/2021 by Ryan Vinson MD at [facility] Stent Right: Ureter [employer] MASOOD [id number] 04/12/2024 [id number] 30 / / [id number] Procedures Procedure Name Priority Date/Time Associated Diagnosis Comments ELECTROCARDIOGRAM (NON MIDMARK ACQUIRED) Routine 05/07/2025 12:55 PM CDT Hypertension, essential LIPID PANEL Routine 07/23/2009 12:00 AM URBAN FORESTER from Last 3 Months or Most Recently Relevant to Health Maintenance Results * ELECTROCARDIOGRAM (05/07/2025 12:55 PM CDT) 05/07/2025 12:5 5 PM CDT Narrative [facility] - 05/07/2025 5:24 PM CDT [facility] [place] [address] Test Date: 2025-05-07 Pat Name: MATEUSZ STONE Department: 105 Room: Gender: Female Size Maker: collette : 1965 Requested By: CASPER THURMAN Order Number: [id number] Arline MD: Casper Thurman Measurements Intervals [place] Rate: 82 P: 48 SC: 151 QRS: -33 QRSD: 86 T: 57 QT: 337 QTc: 396 Interpretive Statements SINUS RHYTHM LEFT AXIS DEVIATION LOW QRS VOLTAGE IN PRECORDIAL LEADS BASELINE ARTIFACT Procedure Note Casper Thurman MD - 05/07/2025 [facility], [facility] [address] [place] [address] Test Date: 2025-05-07 Pat Name: MATEUSZ STONE Department: 105 Room: Gender: Female Size Maker: collette : 1965 Requested By: CASPER THURMAN Order Number: [id number] Reading MD: Casper Thurman Measurements Intervals [place] Rate: 82 P: 48 SC: 151 QRS: -33 QRSD: 86 T: 57 QT: 337 QTc: 396 Interpretive Statements SINUS RHYTHM LEFT AXIS DEVIATION LOW QRS VOLTAGE IN PRECORDIAL LEADS BASELINE ARTIFACT us Casper Thurman MD PROCEDURES-ORDERABLE NO AILYN RGE Final Result [facility] * LIPID PANEL (07/23/2009 12:00 AM URBAN FORESTER) TRIGLYCERIDES 132 0 - 150 mg/dl MEDINFORMATIX TO EPIC CONVERSION CHOLESTEROL 180 0 - 200 mg/dl MEDINFORMATIX TO EPIC CONVERSION HDL 61 40 - 59 mg/dl MEDINFORMATIX TO EPIC CONVERSION LDL CONVERSION 93 0 - 100 mg/dl MEDINFORMATIX TO EPIC CONVERSION CHOL/HDL RATIO 3.0 <4.0 (Calc) MEDINFORMATIX TO EPIC CONVERSION 07/23/2009 07/23/2009 Narrative MEDINFORMATIX TO EPIC CONVERSION - 07/23/2009 1:31 PM URBAN FORESTER Reviewed by ANGELA Jul 23 2009 1:33:00:000PM us Generic Conversion Md [facility] Final R esult MEDINFORMATIX TO EPIC CONVERSION from Last 3 Months or Most Recently Relevant to Health Maintenance Insurance MEDICAID Member Subscriber Plan / Payer ( fective 2018-Present) Name:Krystamarsha Nicole Relation to Subscriber:Self Name:Mateusz Stone Ann Payer ID:Not on file Group ID:Not on file Type:Not on file Address: [address] MEDICARE MEDICAID Member Subscriber Plan / Payer ( fective 2018-Present) Name:KrystamarshaMateuszNicole Relation to Subscriber:Self Name:OleksandrmollyLittle larsoni Ann Payer ID:Not on file Group ID:Not on file Type:Not on file Address: [address] MEDICARE MEDICAID Advance Directives * Full Code (Latest Code Status on File) Date Activated Date Inactivated Comments 06/29/2022 9:52 AM 06/29/2022 1:43 PM Care Teams Brazing Machine Operator Relationship Specialty Start Date End Date Virgilio Meehan DO [address] [place] [address] PCP - General FAMILY PRACTICE 09/08/22 Cee Liu, SHIPWRIGHT HELPER, ENGINEERING DESIGN SUPERVISOR-C [address] [facility] [address] [place] [phone] NURSE PRACTITIONER 05/27/22 Mame Osborn MD [address] [place] [address] INTERVENTIONAL CARDIOLOGY 05/10/24
--- OUTSIDE RECORDS SUMMARY | 2025-07-01 10:46 | XMS_ITS | Encounter Summary ---
Author Organization [facility] Address [facility] access hospital[address] [place] [address] Care Team Providers Care Accounts Receivable Collector Name Role Phone Alexis Thurman MD Unavailable [phone] Cee Liu APRN, NP-C Unavailable Virgilio Meehan DO Primary Care Provider Mame Osborn MD Unavailable [phone] Encounter Details Date Type Department Care Team (Late st Contact Info) Description 12/21/2022 Abstract [facility] [address] [place] [address] [place] [address] [place] [address] Social History Tobacco Use Types Packs/Day Years [...] on filedocumented in this encounter Care Teams Accounts Receivable Collector Relationship Specialty Start Date End Date Virgilio Meehan DO [address] [place] [address] PCP - General FAMILY PRACTICE 09/08/22 Alexis Thurman MD [address] [place] [address] [place] Lumber Tallier CARDIOVASCULAR DISEASE 09/14/18 04/01/24 Cee Liu, GM/SVP GLOBAL PUBLISHER BUSINESS, RN PICU-C [address] [facility] [address] [place] [address] NURSE PRACTITIONER 05/27/22 Mame Osborn MD [address] [place] [address] INTERVENTIONAL CARDIOLOGY 05/10/24 documented as of this encounter
--- OUTSIDE RECORDS SUMMARY | 2025-07-01 10:46 | XMS_ITS | Encounter Summary ---
Author Organization [facility] Address [facility] [place] [address] Care Team Providers Care Faith Healer Name Role Phone Alexis Thurman MD Unavailable [phone] Willian Mendoza MD Primary Care Provider [phone] Cee Liu APRN, FIELD ARTILLERY CREWMEMBER-C Unavailable Virgilio Meehan DO Primary Care Provider [phone] Mame Osborn MD Unavailable [phone] Encounter Details Date Type Department Care Team (Late st Contact Info) Description 10/12/2018 Abstract [facility] [address] [place] [address] Abstract, Doc Prevea Social History [...] on filedocumented in this encounter Care Teams Faith Healer Relationship Specialty Start Date End Date Willian Mendoza MD [address] [place] [address] PCP - General INTERNAL MEDICINE 09/14/18 09/07/22 Virgilio Meehan DO [address] [place] [address] PCP - General FAMILY PRACTICE 09/08/22 Alexis Thurman MD [address] [place] [address] [place] Catalogue Librarian CARDIOVASCULAR DISEASE 09/14/18 04/01/24 Cee Liu APRN, FIELD ARTILLERY CREWMEMBER-C [address] [facility] [address] [place] [address] NURSE PRACTITIONER 05/27/22 Mame Osborn MD [address] [place] [address] INTERVENTIONAL CARDIOLOGY 05/10/24 documented as of this encounter
--- OUTSIDE RECORDS SUMMARY | 2025-07-01 10:46 | XMS_ITS | Encounter Summary ---
Author Organization [facility] Address [facility] [place] [address] Care Team Providers Care Environment Coordinator Name Role Phone Alexis Thurman MD Unavailable [phone] Willian Mendoza MD Primary Care Provider [phone] Cee Liu APRN, VISOR INSTALLER-C Unavailable Virgilio Meehan DO Primary Care Provider [phone] Mame Osborn MD Unavailable [phone] Encounter Details Date Type Department Care Team (Late st Contact Info) Description 07/04/2022 Abstract [facility] [address] [place] [address] Alexis Thurman MD [address] [place] [address] Social History Tobacco Use Types Packs/Day Years [...] Coronavirus/COVID-19? No / Unsure 06/29/2022 5:44 AM INSULATION ENGINEMAN documented as of this encounter Plan of [...] on filedocumented in this encounter Care Teams Environment Coordinator Relationship Specialty Start Date End Date Willian Mendoza MD [address] [place] [address] PCP - General INTERNAL MEDICINE 09/14/18 09/07/22 Virgilio Meehan DO [address] [place] [address] PCP - General FAMILY PRACTICE 09/08/22 Alexis Thurman MD [address] [place] [address] [place] Rubber Flap Tuber Machine Operator CARDIOVASCULAR DISEASE 09/14/18 04/01/24 Cee Liu APRN, VISOR INSTALLER-C [address] [facility] [address] [place] [address] NURSE PRACTITIONER 05/27/22 Mame Osborn MD [address] [place] [address] INTERVENTIONAL CARDIOLOGY 05/10/24 documented as of this encounter
--- OUTSIDE RECORDS SUMMARY | 2025-07-01 10:46 | XMS_ITS | Encounter Summary ---
Author Organization [facility] Address [facility] [place] [address] Care Team Providers Care Baseball Inspector And Repairer Name Role Phone Alexis Thurman MD Unavailable Cee Liu APRN, NP-C Unavailable Virgilio Meehan DO Primary Care Provider Mame Osborn MD Unavailable [phone] Encounter Details Date Type Department Care Team (Late st Contact Info) Description 09/23/2022 Abstract [facility] [address] [place] [address] Alexis Thurman MD [address] [place] [address] Social History Tobacco Use Types [...] Coronavirus/COVID-19? No / Unsure 09/08/2022 8:48 AM RADIOLOGICAL TECHNOLOGIST documented as of this encounter Plan of Treatment Not on file documented as of this encounter Visit Diagnoses Not on filedocumented in this encounter Care Teams Baseball Inspector And Repairer Relationship Specialty Start Date End Date BusVirgilio maxwell DO [address] [place] [address] PCP - General FAMILY PRACTICE 09/08/22 Alexis Thurman MD [address] [place] [address] [place] [address] Operator CARDIOVASCULAR DISEASE 09/14/18 04/01/24 Cee Liu, MECHANICS HANDYMAN, ANTIQUE FINISHER-C [address] [facility] [address] [place] [address] NURSE PRACTITIONER 05/27/22 Mame Osborn MD [address] [place] [address] INTERVENTIONAL CARDIOLOGY 05/10/24 documented as of this encounter
--- OUTSIDE RECORDS SUMMARY | 2025-07-01 10:46 | XMS_ITS | Clinical Summary ---
Author Organization [facility] Address [address] [place] [id number] Care Team Providers Care Warehouse Worker Name Role Phone Willian Mendoza MD Primary Care Provider [phone] Allergies Active Allergy Reactions Criticality Noted Date [...] mouth 2 (two) times a day Active [id number] on-minerals tablet Take 1 tablet by mouth [...] tablet (100 mcg total) by mouth health psychologist before breakfast 90 tablet 3 08/07/20 24 [...] appearing cyst on renal bladder ultrasound at [facility] dated 08/26/2022. Diabetes mellitus 02/18/2025 Overview (02/18/2025): Phreesia 06/01/2021 H/O gastric sleeve 01/09/2024 Iron deficiency anemia 08/31/2023 Stage 3b chronic kidney disease 08/31/2023 Hypertension, essential 08/31/2023 Overview (02/18/2025): Phreesia 06/01/2021 Hypomagnesemia 05/07/2023 Acquired hypothyroidism 03/17/2022 Assessment & Plan (08/07/2024 5:51 PM PARTS COUNTER SALES PERSON): Chronic, stable. Continue levothyroxine Update TFTs Assessment & Plan (08/10/2023 3:53 PM PARTS COUNTER SALES PERSON): Chronic, well-controlled Importance of taking levothyroxine on [...] 04/17/2018 Assessment & Plan (08/07/2024 5:51 PM PARTS COUNTER SALES PERSON): Chronic, stable Update lipid profile Continue statin therapy Assessment & Plan (08/10/2023 3:53 PM PARTS COUNTER SALES PERSON): Chronic, well-controlled Continue statin therapy with Pravachol Assessment & Plan (01/17/2023 1:59 PM CDT): Chronic, well controlled Low fat Low cholesterol diet Exercise Continue statin therapy with Pravachol Assessment & Plan (03/17/2022 9:47 AM CDT): Chronic problem. On statin therapy, no changes. Assessment & Plan (10/28/2021 1:21 PM PARTS COUNTER SALES PERSON): Chronic problem. On statin therapy, no changes. [...] Pravachol Assessment & Plan (09/27/2019 9:29 AM PARTS COUNTER SALES PERSON): LDL at goal. Trigs elevated. Continue statin [...] therapy Assessment & Plan (08/07/2018 1:59 PM PARTS COUNTER SALES PERSON): At goal on current medications. Assessment & [...] dicussed Assessment & Plan (09/27/2019 9:29 AM PARTS COUNTER SALES PERSON): Continues to do well with wt loss [...] adjusted. Assessment & Plan (08/07/2018 1:59 PM PARTS COUNTER SALES PERSON): Continues to gain weight. Little attempt at diet and exercise. Reviewed importance of avoiding juice, soda, high fat, high carb foods. Assessment & Plan (10/05/2017 2:49 PM PARTS COUNTER SALES PERSON): Diet and exercise were discussed. 1200 Calorie diet advised 45-60 min aerobic / resistance exercise most days of the week recommended. Bariatric surgery medically indicated Assessment & Plan (07/20/2017 4:17 PM PARTS COUNTER SALES PERSON): Importance of following diet and exercising discussed. 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 Source: EHR Chronic: N Practice [...] changes. Assessment & Plan (10/28/2021 1:21 PM PARTS COUNTER SALES PERSON): Controlled on current medications, no changes. Assessment [...] microalbumin Assessment & Plan (09/27/2019 9:29 AM PARTS COUNTER SALES PERSON): Controlled on current medications. Continue plan. Assessment & Plan (06/06/2019 2:49 PM CDT): Controlled on current medications. Continue plan. Assessment & Plan (11/01/2018 2:04 PM CDT): Goal blood pressure is less than 140/85 Low salt diet recommended Daily aerobic exercise Continue current meds, including ALYCE-I or ARB Assessment & Plan (08/07/2018 2:00 PM PARTS COUNTER SALES PERSON): Controlled on current medications. Assessment & Plan (04/17/2018 2:07 PM CDT): Goal blood pressure is less than 140/85 Low salt diet recommended Daily aerobic exercise Continue current meds, including ALYCE-I or ARB Assessment & Plan (10/05/2017 2:50 PM PARTS COUNTER SALES PERSON): Goal blood pressure is less than 140/85 Low salt diet recommended Daily aerobic exercise Continue current meds, including ALYCE-I or ARB Assessment & Plan (07/20/2017 4:18 PM PARTS COUNTER SALES PERSON): Controlled on current medications. Assessment & Plan (04/06/2017 4:28 PM CDT): At goal on current medications. Hyperlipidemia 09/19/2012 Overview (11/24/2016): HYPERLIPIDEMIA NEC/NOS Assessment & Plan (06/06/2019 2:49 PM CDT): Lipid panel ordered Assessment & Plan (07/20/2017 4:18 PM PARTS COUNTER SALES PERSON): Will check lipid panel Assessment & Plan (04/06/2017 4:28 PM CDT): Check labs and focus on low fat foods Furuncle of trunk 06/28/2012 Overview (11/23/2016): Carbuncle and furuncle of trunk Type 2 diabetes mellitus 06/28/2012 Overview (11/24/2016): DMII WO CMP UNCNTRLD Assessment & Plan (08/07/2024 5:50 PM PARTS COUNTER SALES PERSON): Chronic, stable Diet and exercise were emphasized Continue Farxiga and Ozempic Assessment & Plan (02/13/2024 4:29 PM CDT): Chronic, well-controlled. Continue Ozempic 2 mg weekly Farxiga 10 mg Importance of diet and exercise was discussed Assessment & Plan (08/10/2023 3:52 PM PARTS COUNTER SALES PERSON): Chronic, well-controlled, with some postprandial hyperglycemia Continue [...] Farxita Assessment & Plan (07/19/2022 1:34 PM PARTS COUNTER SALES PERSON): Hba1c was Lab Results Component Value Date [...] today. Assessment & Plan (10/28/2021 1:43 PM PARTS COUNTER SALES PERSON): Chronic problem, not at goal. Increase NL [...] breakfast Assessment & Plan (09/27/2019 9:31 AM PARTS COUNTER SALES PERSON): A1c increased to 7.8. Pattern acceptable during [...] discussed. Assessment & Plan (08/07/2018 2:02 PM PARTS COUNTER SALES PERSON): A1c 8.1. Baseline BG reported at goal. [...] discussed. Assessment & Plan (10/05/2017 2:51 PM PARTS COUNTER SALES PERSON): Hba1c was . 9.6 . today, indicating [...] discussed. Assessment & Plan (07/20/2017 4:17 PM PARTS COUNTER SALES PERSON): A1c improved 8.7, ~ 2%. Mostly from [...] Encounters Date Type Department Care Team Description 06/30/2025 Telephone [facility] Diabetes and Endocrinology [facility] [place] [address] Anthony Castillo MD from Last 3 Months Immunizations Immunization Administration [...] 08/21/2018 - 08/20/2019 Gastric sleeve at [facility] Medical History Medical History Date Comments Hyperlipidemia [...] on file Legal Sex Female 10:22 AM PARTS COUNTER SALES PERSON Gender Identity Not on file Sexual Orientation Straight 08/07/2024 2: 11 PM PARTS COUNTER SALES PERSON Last Filed Vital Signs Vital Sign Reading [...] * (ABNORMAL) eGFR (02/18/2025 4:02 PM CDT) [facility] Signature eGFR 54(L) >=60 mL/min/1. 73 m2 Comment: [...] ORDERABLES Final Resul t Performing Organization Address [facility] de Phone Number OLGA HORNER [id number] [employer] [place] [address] * (ABNORMAL) Albumin Creatinine Ratio, [...] ORDERABLES Final Resul t Performing Organization Address [facility] Co de Phone Number OLGA HORNER [id number] [employer] [place], [place] [id number] * (ABNORMAL) Lipid panel (02/18/2025 4:02 PM [...] 2018. Chol/HDL ratio 3 OLGA HORNER Blood 02/18/2025 4:02 PM CDT 02/18/2025 7:38 PM CDT us Anthony Castillo MD LAB BLOOD ORDERABLES Final Resul t OLGA [id number] [place] [address] * (ABNORMAL) POCT hemoglobin A1c (02/18/2025 3:13 [...] Most Recently Relevant to Health Maintenance Insurance [employer] [facility] MEDICARE ADVANTAGE [facility] MEDICARE ADVANTAGE IDPA Care Teams Warehouse Worker Relationship Specialty Start Date End Date Willian Mendoza MD PCP - General 02/18/16
--- OUTSIDE RECORDS SUMMARY | 2025-07-01 10:46 | XMS_ITS | Patient Health Record ---
Author Organization [facility] Address [address] [place], [place] [id number] Care Team Providers Care Steeping Press Tender Name Role Phone MIRIAN MOSHER Unavailable [phone] Virgilio Meehan Unavailable Unavailable ADRIEN CONTRERAS Unavailable [phone] WILFREDO BRODERICK Unavailable [phone] Allergies No Known Allergies Reason For Referral No Information Medications Medication SIG (Take, Route, Frequency, Duration) Notes Start Date End Date Status Nabumetone 500 MG Oral Tablet ORAL nabumetone 500 MG Oral TabletOriginal Medicationnabumetone 500 MG Oral Tablet *Reorder from [facility] for eRx and Interaction Alerts* 06/29/20 12 Active Allopurinol 300 MG Oral Tablet ORAL allopurinol 300 MG Oral TabletOriginal Medicationallopurinol 300 MG Oral Tablet *Reorder from [facility] for eRx and Interaction Alerts* 04/07/20 14 Active nortriptyline 50 MG Oral Capsule ORAL nortriptyline 50 MG Oral CapsuleOriginal Medicationnortriptyline 50 MG Oral Capsule *Reorder from [facility] for eRx and Interaction Alerts* 04/07/20 14 Active Spironolactone 25 MG Oral Tablet ORAL spironolactone 25 MG Oral TabletOriginal Medicationspironolactone 25 MG Oral Tablet *Reorder from [facility] for eRx and Interaction Alerts* 04/07/20 14 Active propranolol hydrochloride 40 MG Oral Tablet ORAL propranolol hydrochloride 40 MG Oral TabletOriginal Medicationpropranolol hydrochloride 40 MG Oral Tablet *Reorder from [facility] for eRx and Interaction Alerts* 04/07/20 14 [...] [facility] and Interaction Alerts* 04/20/20 [...] Encounters Encounter Location Date Provider Diagnosis [address] [id number] 01/02/2025 WILFREDO BRODERICK Tinea unguium B35.1 ; Acquired 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 ; Atherosclerosis of [place] arteries of extremities with intermittent claudication, bilateral legs I70.213 ; Pain in right foot M79.671 and Pain in left foot M79.[address] [id number] 03/06/2025 WILFREDO BRODERICK Fungal infection of nail B35.1 ; Pain in right toe(s) M79.674 ; Pain in left toe(s) M79.675 and Atherosclerosis of [place] arteries of extremities with intermittent claudication, bilateral legs I70.[address] [id number] 05/08/2025 WILFREDO BRODERICK Tinea unguium B35.1 ; Other acquired deformities of right foot M21.6X1 ; Acquired 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 ; Atherosclerosis of [place] arteries of extremities with intermittent claudication, bilateral legs I70.213 ; Pain in right foot M79.671 and Pain in left foot M79.[address] [id number] 10/10/2024 MIRIAN SNOOK Tinea unguium B35.1 ; Acquired 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 ; Atherosclerosis of [place] arteries of extremities with intermittent claudication, bilateral legs I70.213 ; Pain in right foot M79.671 and Pain in left foot M79.672 [facility] [address] [address] [id number] 12/09/2024 MIRIAN SNAYLAK [facility] [address] [id number] 01/29/2025 MIRIAN SNOOK [facility] [address] [id number] 05/15/2025 WILFREDO BRODERICK Assessments Encounter Date Diagnosis [...] toe(s) (ICD-10 - M79.675) 01/02/2025 Atherosclerosis of [place] arteries of extremities with intermittent claudication, bilateral legs (ICD-10 - I70.213) Check and protect LE bilateral daily. Call if any changes or concerns. 10/10/2024 Atherosclerosis of [place] arteries of extremities with intermittent claudication, bilateral [...] for possible rash/allergic reaction 03/06/2025 Atherosclerosis of [place] arteries of extremities with intermittent claudication, bilateral legs (ICD-10 - I70.213) 05/08/2025 Atherosclerosis of [place] arteries of extremities with intermittent claudication, bilateral [...] Details Provider Name:WILFREDO MARTIN, 07/24/2025 11:40:00 AM, [address] [place] [address], [phone], Insurance Providers Payer Name Payer Address Payer Phone Subscriber Number Group Number Insured Name Patient Relationship to Insured Coverage Start Date Coverage End Date [facility] [address] [address] [place] [id number] MATEUSZ MONROE Self - patient is the insured Medical (General) History Medical History History ICD Code Diabetic
--- OUTSIDE RECORDS SUMMARY | 2025-07-01 10:46 | XMS_ITS | Encounter Summary ---
Author Organization [facility] Address [address] [place] [address] Care Team Providers Care Pulling Machine Operator Name Role Phone Willian Mendoza MD Primary Care Provider [phone] Encounter Details Date Type Department Care Team (Late st Contact Info) Description 06/30/2025 Telephone [facility] Diabetes and Endocrinology [address] [place] [address] [place] [address] [facility] [address], [place] [id number] Social History Tobacco Use Types Packs/Day Years [...] on file Legal Sex Female 10:22 AM SHINGLER Gender Identity Not on file Sexual Orientation Straight 08/07/2024 2: 11 PM SHINGLER documented as of this encounter Miscellaneous Notes * Telephone Encounter - Theodora Koehler - 06/30/2025 2:13 PM CST Incoming Call SHOSHANA: 02/18/25 NOV: 09/09/25 Caller Patient Reason requested we fax labs A1C and office note of 02/18/25 To [facility] / Rajani Peralta [phone] Faxed via [employer] GLER documented in this encounter Plan of Treatment Not on file documented as of this encounter Visit Diagnoses Not on filedocumented in this encounter Care Teams Pulling Machine Operator Relationship Specialty Start Date End Date Willian Mendoza MD PCP - General 02/18/16 documented as of this encounter
--- OUTSIDE RECORDS SUMMARY | 2025-07-01 10:46 | XMS_ITS | Encounter Summary ---
Author Organization [facility] Address [facility] [place] [address] Care Team Providers Care Portable Router Operator Name Role Phone Alexis Thurman MD Unavailable [phone] Willian Mendoza MD Primary Care Provider [phone] Cee Liu APRN, CAROUSEL OPERATOR-C Unavailable Virgilio Meehan DO Primary Care Provider [phone] Mame Osborn MD Unavailable [phone] Encounter Details Date Type Department Care Team (Late st Contact Info) Description 04/07/2021 Abstract [facility] [address] [place] [phone] Ella Witt MD [address] [place] [id number] Social History Tobacco Use Types Packs/Day [...] on filedocumented in this encounter Care Teams Portable Router Operator Relationship Specialty Start Date End Date Willian Mendoza MD [address] [place] [address] PCP - General INTERNAL MEDICINE 09/14/18 09/07/22 Virgilio Meehan DO [address] [place] [address] PCP - General FAMILY PRACTICE 09/08/22 Alexis Thurman MD [address] [place] [phone] [place] Photogrammetric Stereo Compiler CARDIOVASCULAR DISEASE 09/14/18 04/01/24 Cee Liu APRN, CAROUSEL OPERATOR-C [address] [facility] [address] [place] [phone] NURSE PRACTITIONER 05/27/22 Mame Osborn MD [address] [place] [address] INTERVENTIONAL CARDIOLOGY 05/10/24 documented as of this encounter
--- OUTSIDE RECORDS SUMMARY | 2025-07-01 10:46 | XMS_ITS | Encounter Summary ---
Author Organization [facility] Address [facility], [id number] [place] [address] Care Team Providers Care Pig Machine Operator Name Role Phone Alexis Thurman MD Unavailable [phone] Willian Mendoza MD Primary Care Provider [phone] Cee Liu APRN, DEGREASING SOLUTION RECLAIMER-C Unavailable Virgilio Meehan DO Primary Care Provider [phone] Mame Osborn MD Unavailable [phone] Encounter Details Date Type Department Care Team (Late st Contact Info) Description 11/04/2017 Abstract [facility] [address] [place] [address] , Generic MD Guilherme Social History Tobacco [...] on filedocumented in this encounter Care Teams Pig Machine Operator Relationship Specialty Start Date End Date Willian Mendoza MD [address] [place] [phone] PCP - General INTERNAL MEDICINE 09/14/18 09/07/22 Virgilio Meehan DO [address] [place] [address] PCP - General FAMILY PRACTICE 09/08/22 Alexis Thurman MD [address] [place] [phone] [place] Case Specialist CARDIOVASCULAR DISEASE 09/14/18 04/01/24 Cee Liu APRN, DEGREASING SOLUTION RECLAIMER-C [address] [facility] [address] [place] [phone] NURSE PRACTITIONER 05/27/22 Mame Osborn MD [address] [place] [address] INTERVENTIONAL CARDIOLOGY 05/10/24 documented as of this encounter
[2025-07-01 10:54] LABS: INR 0.9; Partial Thromboplastin Time 25.5 Sec (23.9-30.70); Prothrombin Time 10.4 Seconds (9.50-12.1)
[2025-07-01 11:05] LABS: Anion Gap 7 mmol/L (4-12); Blood Urea Nitrogen 29 mg/dL (7-17); Calcium 10.4 mg/dL (8.4-10.2); Carbon Dioxide 31 mmol/L (22-30); Chloride 104 mmol/L (98-107); Estimated Glomerular Filt Rate 39; Glucose 102 mg/dL (65-110); Osmolality Calculated 299 mOsm/kg (285-295); Potassium 3.6 mmol/L (3.4-5.0); Sodium 142 mmol/L (137-145)
== END 2025-07-01 10:14 | disposition home or self-care (01) ==
PROVIDERS: PCP Family Medicine; Visit Provider Anesthesiology
DX: Z01.818 Encounter for other preprocedural examination (principal); I12.9 Hypertensive chronic kidney disease with stage 1 through stage 4 chronic kidney disease, or unspecified chronic kidney disease; N18.30 Chronic kidney disease, stage 3 unspecified; D64.9 Anemia, unspecified
CPT/HCPCS: 36415; 80048; 85014; 85018; 85610; 85730; 93005

== ENCOUNTER 2025-07-09 00:05 | Day surgery (SDC) | payer MEDICARE, MEDICAID, SELFPAY ==
--- NOTE | 2025-06-26 15:58 | SUR.PREOP ---
[facility] has started construction of its new state of the art ER which will open Spring 2026. With this, we anticipate parking may be a challenge for some our surgical patients and families. Parking spaces are limited but are available for all Surgical, obstetrics, and ER patients sharing this lot. If you arrive and find you are having a hard time finding a parking space, please note that we understand the challenges, please drive around the hospital and park near Hospital Entrance 1. When you enter this entrance, you can ask a volunteer to direct or take you back to the surgical waiting area to check in. We appreciate everyone?s understanding of these expected challenges while we build for your future. Report to the Outpatient Waiting Room, entrance under the green pavilion located off [address], at time _6AM__ on date _07/09/25_. Planned Procedure Time: _730AM__.? Time changes happen often and if your time is changed the preop area will call you the afternoon before. - You and your visitor will be asked to self-screen and do not enter if you have any COVID symptoms. Please call surgeon if you need to reschedule. - A mask is optional within the hospital at this time. Patients may have clear liquids (water, carbonated beverages, clear teas, apple juice) until 3 hours prior to surgery with a maximum of 20 ounces. - No food from midnight until time of surgery and no smoking, or chewing tobacco (or any form of nicotine). No chewing gum, candy or mints. Take only the following medications with a SIP of water on the morning of surgery: __if needed-(cyclobenzaprine, vicoden) levothyroxine, propranolol__ DO NOT STOP ANY OF YOUR OTHER PRESCRIPTION MEDICATIONS PRIOR TO SURGERY EXCEPT THE FOLLOWING Hold all vitamins and supplements for 3 days per anesthesiologist. Medications to discontinue per physician _None__ Date to take last dose_07/05/25__ Please no make-up, nail thai, hairspray, perfume, deodorant, or body powder the day of surgery.? No jewelry (including any body piercings) or valuables the day of surgery, leave them at home.? Please take a shower or bath the night before, or the morning of, surgery with an antibacterial soap.? Wear comfortable, loose fitting clothing.? - Jewelry must be removed prior to entering the operating room.? Rings and piercings that are not removed may be cut off. - The hospital will not accept responsibility for valuables.? - Please leave all valuables, including medications, at home the day of surgery. If you are going home after surgery, a licensed log truck driver must drive you home.? - NO public transportation without another adult if you receive anesthesia. - We recommend that an adult stay with you for 24 hours following discharge. - We also recommend that you do not drive, make important decision, drink alcoholic beverages, or take any drugs that were not prescribed by your health care provider for at least 24 hours after your discharge time. For Pediatric surgeries, we recommend two adults accompany the child home. Follow any additional instructions given to you from your surgeon. Telephone instructions given to _Keri__and asked if any additional questions and then verbalized understanding. Patient advised to call surgeon office or pre surgery nurse liaison [phone] if any additional questions.
[2025-06-26 16:25] VITALS: BMI 36.1
--- NOTE | 2025-06-27 14:21 | SUR.PREOP ---
[facility] Num: [id number] : 1965 Patient Age: 59 [facility] has started construction of its new state of the art ER which will open Spring 2026. With this, we anticipate parking may be a challenge for some our surgical patients and families. Parking spaces are limited but are available for all Surgical, obstetrics, and ER patients sharing this lot. If you arrive and find you are having a hard time finding a parking space, please note that we understand the challenges, please drive around the hospital and park near Hospital Entrance 1. When you enter this entrance, you can ask a volunteer to direct or take you back to the surgical waiting area to check in. We appreciate everyone?s understanding of these expected challenges while we build for your future. Report to the Outpatient Waiting Room, entrance under the green pavilion located off [address], at time _6AM__ on date _07/09/25_. Planned Procedure Time: _730AM__.? Time changes happen often and if your time is changed the preop area will call you the afternoon before. - You and your visitor will be asked to self-screen and do not enter if you have any COVID symptoms. Please call surgeon if you need to reschedule. - A mask is optional within the hospital at this time. Patients may have no food or fluid 8 hours prior to surgery. Take only the following medications with a SIP of water on the morning of surgery: __if needed-(cyclobenzaprine, vicoden) levothyroxine, propranolol__ DO NOT STOP ANY OF YOUR OTHER PRESCRIPTION MEDICATIONS PRIOR TO SURGERY EXCEPT THE FOLLOWING Hold all vitamins and supplements for 3 days per anesthesiologist. Medications to discontinue per physician _None__ Date to take last dose_07/05/25__ Please no make-up, nail kazakh, hairspray, perfume, deodorant, or body powder the day of surgery.? No jewelry (including any body piercings) or valuables the day of surgery, leave them at home.? Please take a shower or bath the night before, or the morning of, surgery with an antibacterial soap.? Wear comfortable, loose fitting clothing.? - Jewelry must be removed prior to entering the operating room.? Rings and piercings that are not removed may be cut off. - The hospital will not accept responsibility for valuables.? - Please leave all valuables, including medications, at home the day of surgery. If you are going home after surgery, a licensed courier delivery driver must drive you home.? - NO public transportation without another adult if you receive anesthesia. - We recommend that an adult stay with you for 24 hours following discharge. - We also recommend that you do not drive, make important decision, drink alcoholic beverages, or take any drugs that were not prescribed by your health care provider for at least 24 hours after your discharge time. For Pediatric surgeries, we recommend two adults accompany the child home. Follow any additional instructions given to you from your surgeon. Telephone instructions given to _Lori__and asked if any additional questions and then verbalized understanding. Patient advised to call surgeon office or pre surgery nurse liaison [phone] if any additional questions.
[2025-07-09] VITALS (10 sets, daily range): BP systolic 121–157; BP diastolic 67–88; PULSE 78–92; RESP 12–18; TEMP 36.6–36.7; O2SAT 94–100
--- OUTSIDE RECORDS SUMMARY | 2025-07-09 05:21 | XMS_ITS | Data Portability ---
Author Organization [facility] Address [address] [place] [address] Care Team Providers Care Skills Auditor Name Role Phone ELKE JACOBO Primary Care [...] scula r No observ ation record ed. [facility]) [address] [place], [address], 04/10/2022 00:58:08 Result Notes None recorded. Problems Name Problem SNOMED Code Status Onset Date Resolution Date Notes Provider Name and Address Organization Details Recorded Time Menopaus e present [id number] Completed 201503/22/2022 Menopausa l and female climacter ic states;Re corded Elsewhere : No Locati on: [facility] So urce: EHR Chron ic: N Practic e ID: [id number] Bill able Time: 01:00:00 PM Cecilia kelsey [facility] 2 16:06:[address] Concept Completed 201503/22/2022 Encntr for general adult medical exam w/o abnormal findings; Recorded Elsewhere : No Locati on: [facility] So urce: EHR Chron ic: N Practic e ID: [id number] Bill able Time: 03:30:00 PM Cecilia Rangel [facility], [facility] 2 16:06:09 Screenin g for malignan t neoplasm of rectum Completed 201503/22/2022 Encounter for screening for malignant neoplasm of rectum;Re corded Elsewhere : No Locati on: [facility] So urce: EHR Chron ic: N Practic e ID: [id number] Bill able Time: 03:30:[address] [facility] 2 16:06:[address] Concept Completed 201503/22/2022 Encntr for sports management intern exam (general) (routine) w/o abn findings; Recorded Elsewhere : No Locati on: [facility] So urce: EHR Chron ic: N Practic e ID: [id number] Bill able Time: 03:30:[address] [facility] 2 16:06:09 Screenin g for malignan t neoplasm of cervix Completed 201503/22/2022 Encounter for screening for malignant neoplasm of cervix;Re corded Elsewhere : No Locati on: [facility] So urce: EHR Chron ic: N Practic e ID: [id number] Bill able Time: 03:30:[address] [facility] 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 16:06:09 Problem Notes None recorded. Procedures Surgical History Date Name Laterality Status Provider Name and Address Organization Details Recorded Time 08/21/19 19 laparoscopic sleeve gastrectomy completed [facility] 03/23/2022 15:05:08 08/21/19 17 operation on mandible completed [facility] 03/23/2022 15:04:14 insertion of ureteral stent with ureterotomy completed [facility] 03/23/2022 15:03:53 Unlisted px femur/knee completed [facility] 03/23/2022 15:04:37 perinasal sinusotomy completed [facility] 03/23/2022 15:04:43 Carpal tunnel surgery completed [facility] 03/23/2022 15:04:53 Imaging Results None [...] every day in the evening 04/16 completed [facility] ed Elsewher e: No Locat ion: [facility] odify By: hiral Martin ncounter DateTime : 04/05/20 16 12:01:40 PM Not Available Not Available Not Available Neurontin 300 mg capsule take 1 capsule by oral route 3 times every day 04/28 completed Prescrib ed Elsewher e: No Locat ion: [facility] odify By: wendy Martin ncounter DateTime : 03/08/20 16 09:00:54 AM Not Available Not Available Not Available verapamil 40 mg tablet take 1 tablet by oral route 3 times every day 03/23 completed Prescrib ed Elsewher e: Yes Loca tion: Vik martin [facility] odify By: [email or web address] trick En counter [...] ed Elsewher e: Yes Loca tion: Vik [facility] odify By: [email or web address] trick En counter DateTime : 01/27/20 16 01:00:00 PM Not Available Not Available Not Available propranol ol 60 mg tablet take 1 tablet by oral route 2 times every day 03/23 completed Prescrib ed Elsewher e: Yes Loca tion: Vik martin [facility] odify By: [email or web address] trick En counter [...] ed Elsewher e: Yes Loca tion: Vik [facility] odify By: [email or web address] trick En counter DateTime : 01/27/20 16 01:00:00 PM Not Available Not Available Not Available glimepiri de 1 mg tablet take 1 tablet by oral route every day 03/23 completed Prescrib ed Elsewher e: Yes Loca tion: [facility] odify By: wendy guevarauntean DateTime : 04/28/20 16 03:30:00 PM Not Available Not Available Not Available levothyro xine 100 mcg tablet active Not Available Not Available Not Available ropinirol e 0.25 mg tablet take 1 tablet by oral route every day q 4-6hrs prn 03/23 completed Prescrib ed Elsewher e: Yes Loca tion: Vik martin [facility] odify By: wendy Martin ncounter DateTime : 04/28/20 16 03:30:00 PM Not Available Not Available Not Available Humalog U-100 Insulin 100 unit/mL subcutane ous solution inject by subcutan eous route per prescrib er's instruct ions. Insulin dosing requires individu alizatio n. 03/23 completed Prescrib ed Elsewher e: Yes Loca tion: Vik martin [facility] odify By: ammauricio Martin ncounter DateTime [...] Locat ion: Vik martin [facility] odify By: ammauricio Martin ncounter DateTime : 01/27/20 16 01:00:00 PM Not Available Not Available Not Available ranitidin e 300 mg capsule take 1 capsule by oral route every day at bedtime 03/23 completed Prescrib ed Elsewher e: Yes Loca tion: Vik martin [facility] odify By: [email or web address] trick En counter DateTime : 01/27/20 16 01:00:00 PM Not Available Not Available Not Available pravastat in 20 mg tablet take 2 tablet by oral route every day active Not Available Not Available No t Available Estrace 0.5 mg tablet take 1 tablet by oral route every day 06/01 completed Prescrib ed Elsewher e: No Locat ion: iVk martin [facility] odify By: ammauricio Martin ncounter DateTime : 03/31/20 16 04:45:00 PM Not Available Not Available Not Available cefdinir 300 mg capsule 03/23 completed Not Available Not Available Not Available losartan 100 mg tablet take 1 tablet by oral route every day 03/23 completed Prescrib ed Elsewher e: Yes Loca tion: Vik martin [facility] odify By: kmkirkpa trick En counter DateTime : 01/27/20 16 01:00:00 PM Not Available Not Available Not Available fluticaso ne propionat e 50 mcg/actua tion nasal spray,karen pension active Not Available Not Available Not Available nortripty line 50 mg capsule take 1 capsule by oral route 2 times every day 2015 active Prescrib ed Elsewher e: Yes Loca tion: Vik martin [facility] odify By: kmkirkpa trick En counter DateTime : 01/27/20 16 01:00:00 PM Not Available Not Available Not Available Estrace 1 mg tablet take 1 tablet by oral route every day 2015 active Prescrib ed Elsewher e: No Locat ion: Vik martin [facility] odify By: tgingminh h Becki ter DateTime : 04/28/20 16 03:30:00 PM Not Available Not Available Not Available progester one micronize d 100 mg capsule take 1 capsule by oral route every day for 10 days in the evening 05/07 completed Prescrib ed Elsewher e: Yes Loca tion: Vik martin [facility] odify By: ammauricio carbone DateTime : 04/28/20 16 03:30:00 PM Not Available Not Available Not Available amoxicill in 875 mg-potass ium clavulana te 125 mg tablet 03/23 completed Not Available Not Available Not Available iron 18 mg tablet 2015 active Prescrib ed Elsewher e: Yes Loca tion: Vik martin [facility] odify By: [email or web address] trick En counter DateTime : 01/27/20 16 01:00:00 PM Not Available Not Available Not Available magnesium 200 mg tablet 2015 active Prescrib ed Elsewher e: Yes Loca tion: Vik martin [facility] odify By: [email or web address] trick En counter DateTime : 01/27/20 16 01:00:00 PM Not Available Not Available Not Available Vitamin D3 25 mcg (1,000 unit) tablet take 1 by Oral route once for 2 months then draw labs 2015 active Prescrib ed Elsewher e: Yes Loca tion: Vik martin [facility] odify By: kmkirkpa trick En counter DateTime : 01/27/20 16 01:00:00 PM Not Available Not Available Not Available nitrofura ntoin monohydra te/macroc rystals 100 mg capsule active Not Available Not Available Not Available duloxetin e 20 mg capsule,d elayed release active Not Available Not Available Not Available Cinnamon 500 mg capsule 2015 active Prescrib ed Elsewher e: Yes [facility] By: kmkirkpa trick En counter DateTime : 01/27/20 16 01:00:00 PM Not Available Not Available Not Available Lantus Solostar U-100 Insulin 100 unit/mL (3 mL) subcutane ous pen active Not Available Not Available Not Available Tirosint 75 mcg capsule take 1 capsule by oral route every day 04/28 completed Prescrib ed Elsewher e: Yes Loca tion: Robe mario [facility] odify By: amkdavid Martin ncounter DateTime : 01/27/20 16 01:00:00 PM Not Available Not Available Not Available Bydureon 2 mg subcutane ous extended release suspensio n inject by subcutan eous route every 7 days once 03/23 completed Prescrib ed Elsewher e: Yes Loca tion: [facility] odify By: [email or web address] trick En [...] Updated DateTime 03/23/2022 168.91 cm 49.1 kg/m2 736633.04 g 136/80 mm[Hg] Cecilia Rangel [facility] 03/23/2022 14:58:40 Social History Question Answer Notes LastModified by Organizat ion Details LastModified Time Tobacco Smoking Status Never Smoker Cecilia Rangel [facility] 03/23/2022 15:03:27 Are You Blind Or [...] anxious, or unable to sleep at night)? [id number] Information not available 03/23/2022 Family History Relationship [...] ICD10 Code Diagnosis IMO Codes Diagnosis Note [id number] Kim Tovar [facility] [address] [address] 03/23/2022 14:11:49 03/24/2022 16:35:54 Gynecologic examination [id number] Z01.419 Take Calcium with Vitamin D 12-1500mg daily. Do monthly self breast exams. It is advised to get annual flu shot in the fall and she could obtain at [facility] or [facility] care clinic. If you haven't [...] Labs UTD PCPMammo UTD PCP Inguinal pain [id number] R10.2 Left sided groin pain.Exam difficult due [...] Arias Member ID Guarantor Name 03/24/2022 2 [place] Keri Stone [id number] Keri Stone 03/24/2022 1 [facility] [id number] Keri Stone 03/24/2022 2 [place] Keri Stone [id number] Keri Stone 03/24/2022 1 [facility] (MEDICARE REPLACEMENT/A DVANTAGE - PPO) Keri Stone [id number] Keri Stone Notes Date Note Type Note Provider Name and Address Organization Details Recorded Time 2 text/html Annual Certified Fire Investigator Post-MenopausalReported by PatientGenitourinary symptomsFor menopausal symptoms, patient [...] seen.Groin pain comes/goes.Worse with activity. Kim Tovar, [facility] [address], [place], [address], [facility] 03/24/2022 16:16:15 OBGyn Episode No OBEpisode recorded.
--- NOTE | 2025-07-09 06:24 | WPDHPUPDATE1 ---
History and Physical Update Update Date/Time: 07/09/25 06:24 Patient seen and examined in pre-operative holding area. No interval change in medical history or symptoms. Patient remembers previous discussion of benefits and alternatives to procedure. Continues to desire to proceed with panniculectomy . I reviewed the risks including but not limited to bleeding ,infection, asymmetry, undesireable cosmetic appearance, partial/total skin loss, no change or worsening of symptoms, change in sensation. I discussed the possible use of assistants and their level of participation in the case. Patient stated understanding and signed the consent form wishing to proceed
--- NOTE | 2025-07-09 06:25 | P.OP_ITS ---
Procedure Note - Detailed Date of Procedure 07/09/25 Pre-op Diagnosis excess skin subcutaneous tissue abdomen hips and flanks Post-op Diagnosis Same Procedure Performed excision excess skin abdomen hips and flanks Surgeon Wilder Sheikh MD Electrotype Caster Elvia Peralta PA-C Anesthesia General Description of Procedure Patient was seen in the preoperative holding area where the abdomen was marked and the consent form was signed. Further discussion was had about the patient's removal piercings and she was able to remove her left nostril piercing but was unable to remove the septal piercing. Patient also signed the waiver stating understanding of risks of leaving metallic piercings and placed during surgery and I discussed the risks of dove, scarring and other injury. Patient was taken back to the operating room and placed on the table in the supine position. Time-out was performed with Anesthesia, surgeon, and staff agreeing on patient's name, site, and surgery to be performed. SCDs were placed on the lower extremities and inflated. Antibiotics were given IV. After ge neral anesthesia was administered the abdomen was prepped and draped in the usual sterile fashion. I made my initial incision 7 cm above the vaginal introitus with upward stretch extending horizontally and then extending superolaterally past the anterior superior iliac spines over the excess skin and tissue of the hips and flanks on each side below the large overhanging pannus. This was done with 10 blade scalpel. Bovie cautery was then used to dissect down to the rectus fascia. Bovie cautery was used to elevate and release the pannus and excess tissue staying below the umbilicus. I was now able to determine the amount of tissue for resection was refined from my previous preoperative markings. This tissue was initially incised with 10 blade scalpel on the superior aspect and the excess skin of the abdomen, hips and flanks was excised with Bovie cautery. this was 4512grams of tissue removed. I Irrigated with normal saline and hemostasis with Bovie cautery. natanael powder was applied to help with post-op hemostasis. Initial closure was done with [place] clamps to verify skin closure alignment and adequacy of resection. four, 10 [place] MIREYA drains were placed. Closure was then completed with 3-0 v-lock and 2-0 vicryl for Ema's fascia. 2-0 viryl as well as 3-0 Vicryl for dermis and 4-0 Monocryl for subcuticular closure. 40 cc of 1% lidocaine with epinephrine and 0.5% Marcaine plain were injected along the incision site. A dressing of Mastisol, Steri-Strips, 4 x 4, ABD and abdominal binder was then applied. The drains were hooked to bulb suction. The patient was awakened from anesthesia and transferred to the recovery room in stable condition. Complications: None Estimated blood loss: 60 cc Disposition: Patient tolerated the procedure well and will go home later today Elvia Peralta PA-C was essential for positioning, retraction, closure and dressing placement. [facility] Billing Surgery - Charge Forward: Surgery Billing ([id number] same for elvia adding )
[2025-07-09] MEDS: LACTATED RINGERS 1,000 ML 30 ML IV CONT ×2 (06:30→09:08)
[2025-07-09] MEDS: ACETAMINOPHEN 500 MG TABLET 1000 MG PO (06:30)
--- NOTE | 2025-07-09 06:51 | WPDANESEPPF ---
Anes - Initial Pre Proc Eval Procedure: Operation Date: 07/09/25 07:30 Proposed Procedures p Panniculectomy - Wilder Sheikh MD Date/Time: 07/09/25 06:51 Surgeon: Wilder Sheikh MD Pre Op Diagnosis: excess skin subcutaneous tissue Patient Data Age: 59 Gender: F Height: 1.7 m Weight: 104.5 kg Allergies Allergy/AdvReac Type Severity Reaction Status Date / Time amoxicillin AdvReac Severe Diarrhea Verified 06/30/25 13:35 metformin AdvReac Severe Diarrhea Uncoded 06/30/25 13:35 Home Medications ?Medication ?Instructions ?Recorded ?Confirmed ?Type semaglutide 1 mg/dose (2 mg/1.5 1 mg subcut WEEKLY 09/30/22 06/26/25 History mL) subcutaneous pen injector (Ozempic) dapagliflozin propanediol 10 mg 10 mg PO DAILY 10/18/22 06/26/25 History tablet (Farxiga) hydrocodone 7.5 mg-acetaminophen 1 tablet PO Q8H PRN pain #90 tabs 10/27/22 06/26/25 Rx 325 mg tablet vitamin B complex 1 tablet PO DAILY 02/16/23 06/26/25 History cyanocobalamin (vitamin B-12) 100 mcg (0.1 mL) subcut MONTHLY 08/08/23 06/26/25 Rx 1,000 mcg/mL injection solution #10 mL ascorbate calcium (vitamin C) 500 1 g PO DAILY 11/15/23 06/26/25 History mg tablet blood-glucose sensor (Dexcom G7 #4 ea 07/23/24 06/26/25 Rx Sensor device) ferrous sulfate 325 mg (65 mg 325 mg PO BID 08/19/24 06/26/25 History iron) capsule,extended release losartan 50 mg tablet 50 mg PO DAILY 11/15/24 06/26/25 History magnesium citrate,mag oxide 250 mg 250 mg PO DAILY 11/15/24 06/26/25 History capsule isosorbide mononitrate 30 mg See Rx Instructions .Route 12/19/24 06/26/25 Rx tablet,extended release 24 hr .COMPLEX #60 tabs cyclobenzaprine 10 mg tablet 10 mg PO BID PRN muscle spasm #30 12/31/24 06/26/25 Rx tabs amitriptyline 25 mg tablet 25 mg PO QHS 1 month #30 tabs 02/04/25 06/26/25 Rx diphenoxylate-atropine 2.5 See Rx Instructions PO BID PRN 04/02/25 06/26/25 Rx mg-0.025 mg tablet (Lomotil) diarrhea 1 month #120 tabs levothyroxine 100 mcg tablet See Rx Instructions .Route 05/02/25 06/26/25 Rx .COMPLEX #100 tabs allopurinol 100 mg tablet See Rx Instructions .Route 05/14/25 06/26/25 Rx .COMPLEX #100 tabs rosuvastatin 5 mg tablet 5 mg PO DAILY #90 tabs 06/18/25 06/26/25 Rx cholecalciferol (vitamin D3) 50 2,000 unit PO DAILY 06/26/25 06/26/25 History mcg (2,000 unit) capsule propranolol 60 mg capsule,24 20 mg PO DAILY 06/26/25 06/26/25 History hr,extended release fluticasone propionate 50 See Rx Instructions .Route 06/30/25 Rx mcg/actuation nasal .COMPLEX #32 grams spray,suspension Laboratory Tests 07/09/25 06:45 POC Capillary Glucose 101 mg/dl (65-105) Patient hx anesthesia problems: none Family hx anesthesia problems: none Results Review: All pre-operative results and documents have been reviewed as part of the pre-operative evaluation. [facility] Past Medical History Medical History Ankle pain, right Acquired cavovarus deformity of right foot Chronic pancreatitis Trigger finger, right little finger Low back pain CKD (chronic kidney disease) stage 3, GFR 30-59 ml/min Bilateral hip pain Osteoporosis Excessive thirst Hypothyroidism UTI (urinary tract infection) Urinary frequency ISIS (obstructive sleep apnea) Congestion of nasal sinus Bleeding nose Light headedness Dizziness Chronic headaches Depression Arthritis HTN (hypertension) Sleep apnea Anemia Diabetes 1.5, managed as type 2 Kidney disease High cholesterol Anxiety Bilateral knee pain Surgical History Surgical History S/P cubital tunnel release Left History of right cataract surgery History of left cataract surgery History of mandibular surgery History of sinus surgery History of carpal tunnel release of both wrists History of ureter stent Hx of bariatric surgery gastric sleeve Family History Family History Father Diabetes mellitus Hypertension Family history of arthritis Cerebrovascular accident Mother Heart valve replaced Other Trigger finger, left little finger Social History Social History Social History: Caffeine- coffee Smoking status: Never smoker Alcohol intake: never Substance use: never Substance use type: does not use Do You Feel Safe in your Home?: Yes Lack of Transportation: No Lack of Food: Never True Current Housing: I Have Housing Concerned About Future Housing: No Difficulty Paying Gas/Electric Bills: No Difficulty Paying for Meds: No Currently Unemployed: No Education: Associate Degree Difficulty w/ Childcare or Family Care: No Living arrangements: with family Additional living arrangements comments: MOM & BROTHER Occupation/Education: other Additional occupation/education comments: disabled Gender identity (if verbalized by the patient): Female Sexual Orientation (if Verbalized by the Patient): Straight or Heterosexual Spiritual care concerns: No Anes - Eval Final PreProcedure Day of Procedure 07/09/25 06:51 Patient weight: obese Lungs: normal air movement Airway: Mallampati scale class II and special considerations (Lower teeth missing. ) Neurological: alert and oriented Last oral intake: >/= 8 hours ASA classification: III Emergent: no Anesthetic plan: proceed Anesthesia type and monitoring: general ETT and standard monitoring Results Review: All pre-operative results and documents have been reviewed as part of the pre-operative evaluation. HTN, Hyperlipidemia, ISIS on CPAP, CKD, active without cp or sob. Informed Consent: The patient's anesthetic plan and its attendant risks and benefits were discussed with the patient/family/POA. Questions were solicited and answers provided to the satisfaction of the patient/family/POA.
[2025-07-09] MEDS: LIDO 1%/EPINEPHRINE 1:100,000 50 ML VIAL 30 ML INFILTRATE (07:30)
[2025-07-09] MEDS: ceFAZolin 2 GM in SODIUM CHLORIDE 0.9% IV 50 ML 100 ML IVPB (07:33)
[2025-07-09] MEDS: BUPivacaine HCL 0.5% 10 ML AMP 30 ML INFILTRATE (07:33)
--- NOTE | 2025-07-09 08:31 | S_PTH ---
PATIENT: Keri Stone LOC: [facility] U#:[id number] AGE/SX: 59/F ROOM: RE07/09/[address]: Wilder Sheikh MD : 1965 BED: DIS: 07/09/2025 SPEC #: [id number] RECD: 07/09/25 08:53 STATUS: GUTIERREZ REQ #: [id number] MING: 07/09/25 08:[address]: Wilder Sheikh DEPT: [facility] Surgical RECD BY: Nani Bee ENTERED: 07/09/25 08:53 SP TYPE: Surgical OTHR DR: Virgilio Meehan DO Tissues: A - Soft Tissue Procedures: Hematoxylin and Eosin Stain Gross and Microscopic Level 3
[2025-07-09] MEDS: fentaNYL CITRATE INJ (*CRX) 100 MCG/2 ML VIAL 25 MCG IV PUSH ×2 (09:34→09:38)
[2025-07-09] MEDS: oxyCODONE HCL (*CRX) 5 MG TAB IR PO (10:38)
[2025-07-09] MEDS: ONDANSETRON HCL ODT 4 MG TABLET PO (11:34)
== END 2025-07-09 11:42 | disposition home or self-care (01) ==
PROVIDERS: PCP Family Medicine; Visit Provider Plastic Surgery
PROC: 0JB80ZZ Excision of Abdomen Subcutaneous Tissue and Fascia, Open Approach (ICD-10-PCS; CPT 15830; principal; 2025-07-09 07:30)
DX: L98.7 Excessive and redundant skin and subcutaneous tissue (principal); E03.9 Hypothyroidism, unspecified; D64.9 Anemia, unspecified; E11.22 Type 2 diabetes mellitus with diabetic chronic kidney disease; I12.9 Hypertensive chronic kidney disease with stage 1 through stage 4 chronic kidney disease, or unspecified chronic kidney disease; N18.30 Chronic kidney disease, stage 3 unspecified; M81.0 Age-related osteoporosis without current pathological fracture; R35.0 Frequency of micturition; G47.33 Obstructive sleep apnea (adult) (pediatric); R51.9 Headache, unspecified; F32.A Depression, unspecified; F41.9 Anxiety disorder, unspecified; E78.00 Pure hypercholesterolemia, unspecified; K86.1 Other chronic pancreatitis; M19.90 Unspecified osteoarthritis, unspecified site; E66.9 Obesity, unspecified; Z68.38 Body mass index [BMI] 38.0-38.9, adult; Z79.85 Long-term (current) use of injectable non-insulin antidiabetic drugs; Z79.84 Long term (current) use of oral hypoglycemic drugs; Z79.891 Long term (current) use of opiate analgesic; Z99.89 Dependence on other enabling machines and devices; Z98.890 Other specified postprocedural states; Z98.84 Bariatric surgery status; Z96.0 Presence of urogenital implants; Z82.49 Family history of ischemic heart disease and other diseases of the circulatory system
CPT/HCPCS: 15830; 15834; 82948; 88304; J0690; A9270; J1100; J1171; J2003; J2004; J2250; J2405; J2704; J3010; J7120

== ENCOUNTER 2025-07-22 09:41 | Outpatient (CLI) | payer MEDICARE, MEDICAID, SELFPAY ==
--- OUTSIDE RECORDS SUMMARY | 2025-07-22 10:21 | XMS_ITS | Encounter Summary ---
Author Organization [facility] Address [facility] [place] [address] Care Team Providers Care Gas Maker Name Role Phone Alexis Thurman MD Unavailable Cee Liu APRN, NP-C Unavailable Virgilio Meehan DO Primary Care Provider [phone] Mame Osborn MD Unavailable [phone] Encounter Details Date Type Department Care Team (Late st Contact Info) Description 09/23/2022 Abstract [facility] [address] [place] [id number] Alexis Thurman MD [address] [place] [address] Social History Tobacco Use Types [...] Coronavirus/COVID-19? No / Unsure 09/08/2022 8:48 AM SANE NURSE documented as of this encounter Plan of Treatment Not on file documented as of this encounter Visit Diagnoses Not on filedocumented in this encounter Care Teams Gas Maker Relationship Specialty Start Date End Date BusVirgilio maxwell DO [address] [place] [address] PCP - General FAMILY PRACTICE 09/08/22 Alexis Thurman MD [address] [place] [address] [place] [facility] Resident Care Director CARDIOVASCULAR DISEASE 09/14/18 04/01/24 Cee Liu, CRIMINAL JUSTICE LAWYER, DENTAL EQUIPMENT TECHNICIAN-C [address] [facility] [address] [place] [address] NURSE PRACTITIONER 05/27/22 Mame Osborn MD [address] [place] [address] INTERVENTIONAL CARDIOLOGY 05/10/24 documented as of this encounter
--- OUTSIDE RECORDS SUMMARY | 2025-07-22 10:21 | XMS_ITS | Encounter Summary ---
Author Organization [facility] Address [facility] [place] [address] Care Team Providers Care Ingot Header Name Role Phone Alexis Thurman MD Unavailable [phone] Willian Mendoza MD Primary Care Provider [phone] Cee Liu APRN, RADIO FREQUENCY TECHNICIAN-C Unavailable Virgilio Meehan DO Primary Care Provider [phone] Mame Osborn MD Unavailable [phone] Encounter Details Date Type Department Care Team (Late st Contact Info) Description 04/07/2021 Abstract [facility] [address] [place] [address] Ella Witt MD [address] [place] [address] Social History Tobacco Use Types Packs/Day [...] on filedocumented in this encounter Care Teams Ingot Header Relationship Specialty Start Date End Date Willian Mendoza MD [address] [place] [address] PCP - General INTERNAL MEDICINE 09/14/18 09/07/22 Virgilio Meehan DO [address] [place] [address] PCP - General FAMILY PRACTICE 09/08/22 Alexis Thurman MD [address] [place] [address] [place] Crew Director CARDIOVASCULAR DISEASE 09/14/18 04/01/24 Cee Liu APRN, RADIO FREQUENCY TECHNICIAN-C [address] [facility] [address] [place] [address] NURSE PRACTITIONER 05/27/22 Mame Osborn MD [address] [place] [address] INTERVENTIONAL CARDIOLOGY 05/10/24 documented as of this encounter
--- OUTSIDE RECORDS SUMMARY | 2025-07-22 10:21 | XMS_ITS | Encounter Summary ---
Author Organization [facility] Address [facility] [place] [address] Care Team Providers Care Allergy Specialist Name Role Phone Alexis Thurman MD Unavailable [phone] Willian Mendoza MD Primary Care Provider [phone] Cee Liu APRN, WIRELESS TECHNICIAN-C Unavailable Virgilio Meehan DO Primary Care Provider [phone] Mame Osborn MD Unavailable [phone] Encounter Details Date Type Department Care Team (Late st Contact Info) Description 10/12/2018 Abstract [facility] [address] [place] [address] Abstract, Doc Prevea Social History [...] on filedocumented in this encounter Care Teams Allergy Specialist Relationship Specialty Start Date End Date Willian Mendoza MD [address] [place] [address] PCP - General INTERNAL MEDICINE 09/14/18 09/07/22 Virgilio Meehan DO [address] [place] [address] PCP - General FAMILY PRACTICE 09/08/22 Alexis Thurman MD [address] [place] [address] [employer] Station Helper CARDIOVASCULAR DISEASE 09/14/18 04/01/24 Cee Liu APRN, WIRELESS TECHNICIAN-C [address] [facility] [address] [place] [address] NURSE PRACTITIONER 05/27/22 Mame Osbonr MD [address] [place] [address] INTERVENTIONAL CARDIOLOGY 05/10/24 documented as of this encounter
--- OUTSIDE RECORDS SUMMARY | 2025-07-22 10:22 | XMS_ITS | Encounter Summary ---
Author Organization [facility] Address [facility] [place] [address] Care Team Providers Care Metal Moulder'S Assistant Name Role Phone Alexis Thurman MD Unavailable [phone] Willian Mendoza MD Primary Care Provider [phone] Cee Liu APRN, INSTRUMENTATION ENGINEER-C Unavailable Virgilio Meehan DO Primary Care Provider [phone] Mame Osborn MD Unavailable [phone] Encounter Details Date Type Department Care Team (Late st Contact Info) Description 11/04/2017 Abstract [facility] [address] [place] [address] , Generic MD Guilherme Social History Tobacco [...] on filedocumented in this encounter Care Teams Metal Moulder'S Assistant Relationship Specialty Start Date End Date Willian Mendoza MD [address] [place] [address] PCP - General INTERNAL MEDICINE 09/14/18 09/07/22 Virgilio Meehan DO [address] [place] [address] PCP - General FAMILY PRACTICE 09/08/22 Alexis Thurman MD [address] [place] [address] Felt Steward/Stewardess Chief Cargo Vessel CARDIOVASCULAR DISEASE 09/14/18 04/01/24 Cee Liu APRN, INSTRUMENTATION ENGINEER-C [address] [facility] [address] [place] [address] NURSE PRACTITIONER 05/27/22 Mame Osborn MD [address] [place] [address] INTERVENTIONAL CARDIOLOGY 05/10/24 documented as of this encounter
--- OUTSIDE RECORDS SUMMARY | 2025-07-22 10:22 | XMS_ITS | Clinical Summary ---
Author Organization [facility] Address [address] [place] [address] Care Team Providers Care Medical Housekeeper Name Role Phone Willian Mendoza MD Primary Care Provider [phone] Allergies Active Allergy Reactions Criticality Noted Date [...] mouth 2 (two) times a day Active lfdnvoqvelqk-Bv-rk on-minerals tablet Take 1 tablet by mouth [...] (100 mcg total) by mouth early childhood coordinator before breakfast 90 tablet 3 08/07/20 [...] appearing cyst on renal bladder ultrasound at [facility] dated 08/26/2022. Diabetes mellitus 02/18/2025 Overview (02/18/2025): Phreesia 06/01/2021 H/O gastric sleeve 01/09/2024 Iron deficiency anemia 08/31/2023 Stage 3b chronic kidney disease 08/31/2023 Hypertension, essential 08/31/2023 Overview (02/18/2025): Phreesia 06/01/2021 Hypomagnesemia 05/07/2023 Acquired hypothyroidism 03/17/2022 Assessment & Plan (08/07/2024 5:51 PM ADVERTISING CAMPAIGN MANAGER): Chronic, stable. Continue levothyroxine Update TFTs Assessment & Plan (08/10/2023 3:53 PM ADVERTISING CAMPAIGN MANAGER): Chronic, well-controlled Importance of taking levothyroxine [...] 04/17/2018 Hyperlipidemia associated with type 2 diabetes verencie cormier 04/17/2018 Assessment & Plan (08/07/2024 5:51 PM ADVERTISING CAMPAIGN MANAGER): Chronic, stable Update lipid profile Continue statin therapy Assessment & Plan (08/10/2023 3:53 PM ADVERTISING CAMPAIGN MANAGER): Chronic, well-controlled Continue statin therapy with Pravachol Assessment & Plan (01/17/2023 1:59 PM CDT): Chronic, well controlled Low fat Low cholesterol diet Exercise Continue statin therapy with Pravachol Assessment & Plan (03/17/2022 9:47 AM CDT): Chronic problem. On statin therapy, no changes. Assessment & Plan (10/28/2021 1:21 PM ADVERTISING CAMPAIGN MANAGER): Chronic problem. On statin therapy, no [...] Pravachol Assessment & Plan (09/27/2019 9:29 AM ADVERTISING CAMPAIGN MANAGER): LDL at goal. Trigs elevated. Continue [...] therapy Assessment & Plan (08/07/2018 1:59 PM ADVERTISING CAMPAIGN MANAGER): At goal on current medications. Assessment [...] dicussed Assessment & Plan (09/27/2019 9:29 AM ADVERTISING CAMPAIGN MANAGER): Continues to do well with wt [...] adjusted. Assessment & Plan (08/07/2018 1:59 PM ADVERTISING CAMPAIGN MANAGER): Continues to gain weight. Little attempt at diet and exercise. Reviewed importance of avoiding juice, soda, high fat, high carb foods. Assessment & Plan (10/05/2017 2:49 PM ADVERTISING CAMPAIGN MANAGER): Diet and exercise were discussed. 1200 Calorie diet advised 45-60 min aerobic / resistance exercise most days of the week recommended. Bariatric surgery medically indicated Assessment & Plan (07/20/2017 4:17 PM ADVERTISING CAMPAIGN MANAGER): Importance of following diet and exercising [...] Overview (02/18/2025): Congenital anomaly;Recorded Elsewhere: No Location: [facility] Source: EHR Chronic: N Practice [...] changes. Assessment & Plan (10/28/2021 1:21 PM ADVERTISING CAMPAIGN MANAGER): Controlled on current medications, no changes. [...] microalbumin Assessment & Plan (09/27/2019 9:29 AM ADVERTISING CAMPAIGN MANAGER): Controlled on current medications. Continue plan. Assessment & Plan (06/06/2019 2:49 PM CDT): Controlled on current medications. Continue plan. Assessment & Plan (11/01/2018 2:04 PM CDT): Goal blood pressure is less than 140/85 Low salt diet recommended Daily aerobic exercise Continue current meds, including ALYCE-I or ARB Assessment & Plan (08/07/2018 2:00 PM ADVERTISING CAMPAIGN MANAGER): Controlled on current medications. Assessment & Plan (04/17/2018 2:07 PM CDT): Goal blood pressure is less than 140/85 Low salt diet recommended Daily aerobic exercise Continue current meds, including ALYCE-I or ARB Assessment & Plan (10/05/2017 2:50 PM ADVERTISING CAMPAIGN MANAGER): Goal blood pressure is less than 140/85 Low salt diet recommended Daily aerobic exercise Continue current meds, including ALYCE-I or ARB Assessment & Plan (07/20/2017 4:18 PM ADVERTISING CAMPAIGN MANAGER): Controlled on current medications. Assessment & Plan (04/06/2017 4:28 PM CDT): At goal on current medications. Hyperlipidemia 09/19/2012 Overview (11/24/2016): HYPERLIPIDEMIA NEC/NOS Assessment & Plan (06/06/2019 2:49 PM CDT): Lipid panel ordered Assessment & Plan (07/20/2017 4:18 PM ADVERTISING CAMPAIGN MANAGER): Will check lipid panel Assessment & Plan (04/06/2017 4:28 PM CDT): Check labs and focus on low fat foods Furuncle of trunk 06/28/2012 Overview (11/23/2016): Carbuncle and furuncle of trunk Type 2 diabetes mellitus 06/28/2012 Overview (11/24/2016): DMII WO CMP UNCNTRLD Assessment & Plan (08/07/2024 5:50 PM ADVERTISING CAMPAIGN MANAGER): Chronic, stable Diet and exercise were emphasized Continue Farxiga and Ozempic Assessment & Plan (02/13/2024 4:29 PM CDT): Chronic, well-controlled. Continue Ozempic 2 mg weekly Farxiga 10 mg Importance of diet and exercise was discussed Assessment & Plan (08/10/2023 3:52 PM ADVERTISING CAMPAIGN MANAGER): Chronic, well-controlled, with some postprandial hyperglycemia [...] Farxita Assessment & Plan (07/19/2022 1:34 PM ADVERTISING CAMPAIGN MANAGER): Hba1c was Lab Results Component Value [...] today. Assessment & Plan (10/28/2021 1:43 PM ADVERTISING CAMPAIGN MANAGER): Chronic problem, not at goal. Increase [...] breakfast Assessment & Plan (09/27/2019 9:31 AM ADVERTISING CAMPAIGN MANAGER): A1c increased to 7.8. Pattern acceptable [...] goal hba1c is under 7.0 to prevent shelter diabetes complications ( eye , kidney and [...] discussed. Assessment & Plan (08/07/2018 2:02 PM ADVERTISING CAMPAIGN MANAGER): A1c 8.1. Baseline BG reported at [...] discussed. Assessment & Plan (10/05/2017 2:51 PM ADVERTISING CAMPAIGN MANAGER): Hba1c was . 9.6 . today, [...] discussed. Assessment & Plan (07/20/2017 4:17 PM ADVERTISING CAMPAIGN MANAGER): A1c improved 8.7, ~ 2%. Mostly [...] Type Department Care Team Description 06/30/2025 Telephone [facility] Diabetes and Endocrinology [facility] [place] [address] Anthony Castillo MD from Last [...] 08/21/2018 - 08/20/2019 Gastric sleeve at [facility] Medical History Medical History Date Comments Hyperlipidemia [...] on file Legal Sex Female 10:22 AM ADVERTISING CAMPAIGN MANAGER Gender Identity Not on file Sexual Orientation Straight 08/07/2024 2: 11 PM ADVERTISING CAMPAIGN MANAGER Last Filed Vital Signs Vital Sign [...] * (ABNORMAL) eGFR (02/18/2025 4:02 PM CDT) [facility] Signature eGFR 54(L) >=60 mL/min/1. 73 m2 [...] ORDERABLES Final Resul t Performing Organization Address [facility] de Phone Number OLGA HORNER [address] [place] [place] [address] * (ABNORMAL) Albumin Creatinine Ratio, [...] ORDERABLES Final Resul t Performing Organization Address City/[facility] Co de Phone Number OLGA HORNER [address] [employer] [place], [place] [phone] * (ABNORMAL) Lipid panel (02/18/2025 4:02 PM [...] 2018. LDL, calculated 54 <=129 mg/dL OLGA HRONER Comment: Interpretive Data Ages [...] LAB BLOOD ORDERABLES Final Resul t OLGA [address] [place] [address] * (ABNORMAL) POCT hemoglobin A1c (02/18/2025 3:13 [...] Most Recently Relevant to Health Maintenance Insurance [place] [facility] MEDICARE ADVANTAGE [facility] Address[facility] [address] [place] [address] [facility] MEDICARE ADVANTAGE [facility] Address: [address] [address] [place] [address] IDPA Care Teams Medical Housekeeper Relationship Specialty Start Date End Date Willian Mendoza MD PCP - General 02/18/16
--- OUTSIDE RECORDS SUMMARY | 2025-07-22 10:22 | XMS_ITS | Encounter Summary ---
Author Organization [facility] Address [facility] [place] [address] Care Team Providers Care Spa Manager Name Role Phone Alexis Thurman MD Unavailable [phone] Willian Mendoza MD Primary Care Provider [phone] Cee Liu APRN, PULVI MIXER OPERATOR-C Unavailable [phone] Virgilio Meehan DO Primary Care Provider [phone] Mame Osborn MD Unavailable [phone] Encounter Details Date Type Department Care Team (Late st Contact Info) Description 07/04/2022 Abstract [facility] [address] [place] [address] Alexis Thurman MD [address] [place] [address] Social History Tobacco Use Types Packs/Day Years [...] Coronavirus/COVID-19? No / Unsure 06/29/2022 5:44 AM FLATWORK ASSEMBLER documented as of this encounter Plan of [...] on filedocumented in this encounter Care Teams Spa Manager Relationship Specialty Start Date End Date Willian Mendoza MD [address] [place] [address] PCP - General INTERNAL MEDICINE 09/14/18 09/07/22 Virgilio Meehan DO [address] [place] [address] PCP - General FAMILY PRACTICE 09/08/22 Alexis Thurman MD [address] [place] [address] [place] Welding Teacher CARDIOVASCULAR DISEASE 09/14/18 04/01/24 Cee Liu APRN, PULVI MIXER OPERATOR-C [address] [facility] [address] [place] [address] NURSE PRACTITIONER 05/27/22 Mame Osborn MD [address] [place] [address] INTERVENTIONAL CARDIOLOGY 05/10/24 documented as of this encounter
--- OUTSIDE RECORDS SUMMARY | 2025-07-22 10:22 | XMS_ITS | Encounter Summary ---
Author Organization [facility] Address [facility] [place] [address] Care Team Providers Care Cancellation Clerk Name Role Phone Cee Liu APRN, RAILROAD CAR REPAIR SUPERVISOR-C Unavailable Virgilio Meehan DO Primary Care Provider [phone] Mame Osborn MD Unavailable [phone] Encounter Details Date Type Department Care Team (Late st Contact Info) Description 11/12/2024 Abstract [facility] [address] [place] [address] [place] [address] [place] [address] Social History Tobacco Use Types Packs/Day Years [...] on filedocumented in this encounter Care Teams Cancellation Clerk Relationship Specialty Start Date End Date Virgilio Meehan DO [address] [place] [address] PCP - General FAMILY PRACTICE 09/08/22 Cee Liu APRN, RAILROAD CAR REPAIR SUPERVISOR-C [address] [facility] [address] [place] [address] NURSE PRACTITIONER 05/27/22 Mame Osborn MD [address] [place] [address] INTERVENTIONAL CARDIOLOGY 05/10/24 documented as of this encounter
--- OUTSIDE RECORDS SUMMARY | 2025-07-22 10:22 | XMS_ITS | Clinical Summary ---
Author Organization [facility] Address [facility] [place] [address] Care Team Providers Care Jewel Blocker And Sawyer Name Role Phone Cee Liu APRN, NP-C Unavailable Virgilio Meehan DO Primary Care Provider [phone] Mame Osborn MD Unavailable [phone] Allergies Active Allergy Reactions Criticality Noted Date Comments Amoxicillin-Pot Clavulanate Diarrhea 05/27/2022 Metformin Other (see comment) 05/27/2022 Renal function impairment Pantoprazole Other (see comment) 05/27/2022 Hypomagnesemia Medications CPAP DME DEVICE CPAPCPAP [id number] via IV [id number] Morrissey 8 Active allopurinol 100 MG tablet [...] Type Department Care Team Description 06/20/2025 Telephone [facility] [address] [place] [address] Casper Thurman MD Information 05/07/2025 1:30 PM CDT Office Visit [facility] [address] [place] [address] Casper Thurman MD Follow Up 05/07/2025 Travel 05/07/2025 Orders Only [facility] [address] [place] [address] Casper Thurman MD 05/06/2025 Telephone [facility] [address] [place] [address] Casper Thurman MD Appointment Reminder 05/06/2025 Telephone [facility] [address] [place] [address] Regulo Fitzpatrick MD Appointment Reminder from Last [...] 36.2 C (97.2 F) 06/29/2022 6:18 AM BIOCHEMICAL DEVELOPMENT ENGINEER Respiratory Rate 16 05/07/2025 1:03 PM CDT [...] this topic Medical Devices Implanted Type Area Portuguese Tutor Device Identifier Shelf Expiration Date Model / Serial / Lot Stent Ureteral [place] Sci Contour 6fr X 26cm - [id number] Implanted:Qty : 1 on 06/28/2021 by Ryan Vinson MD at [facility] Stent Right: Ureter [employer] MAS[place]OD [id number] 04/12/2024 [id number] 30 / / [id number] Procedures Procedure Name Priority Date/Time Associated Diagnosis Comments ELECTROCARDIOGRAM (NON MIDMARK ACQUIRED) Routine 05/07/2025 12:55 PM CDT Hypertension, essential LIPID PANEL Routine 07/23/2009 12:00 AM BIOCHEMICAL DEVELOPMENT ENGINEER from Last 3 Months or Most Recently Relevant to Health Maintenance Results * ELECTROCARDIOGRAM (05/07/2025 12:55 PM CDT) 05/07/2025 12:5 5 PM CDT Narrative [facility] - 05/07/2025 5:24 PM CDT [facility] [place] [address] Test Date: 2025-05-07 Pat Name: MATEUSZ STONE Department: 105 Room: Gender: Female Public Health Teacher: collette : 1965 Requested By: CASPER THURMAN Order Number: [id number] Arline MD: Casper Thurman Measurements Intervals Irving Rate: 82 P: 48 MN: 151 QRS: -33 QRSD: 86 T: 57 QT: 337 QTc: 396 Interpretive Statements SINUS RHYTHM LEFT AXIS DEVIATION LOW QRS VOLTAGE IN PRECORDIAL LEADS BASELINE ARTIFACT Procedure Note Casper Thuramn MD - 05/07/2025 [facility], [facility] [address] [place] [address] Test Date: 2025-05-07 Pat Name: MATEUSZ STONE Department: 105 Room: Gender: Female Public Health Teacher: collette : 1965 Requested By: CASPER THURMAN Order Number: [id number] Reading MD: Casper Thurman Measurements Intervals Irving Rate: 82 P: 48 MN: 151 QRS: -33 QRSD: 86 T: 57 QT: 337 QTc: 396 Interpretive Statements SINUS RHYTHM LEFT AXIS DEVIATION LOW QRS VOLTAGE IN PRECORDIAL LEADS BASELINE ARTIFACT us Casper Thurman MD PROCEDURES-ORDERABLE NO AILYN RGE Final Result [facility] * LIPID PANEL (07/23/2009 12:00 AM BIOCHEMICAL DEVELOPMENT ENGINEER) TRIGLYCERIDES 132 0 - 150 mg/dl MEDINFORMATIX TO EPIC CONVERSION CHOLESTEROL 180 0 - 200 mg/dl MEDINFORMATIX TO EPIC CONVERSION HDL 61 40 - 59 mg/dl MEDINFORMATIX TO EPIC CONVERSION LDL CONVERSION 93 0 - 100 mg/dl MEDINFORMATIX TO EPIC CONVERSION CHOL/HDL RATIO 3.0 <4.0 (Calc) MEDINFORMATIX TO EPIC CONVERSION 07/23/2009 07/23/2009 Narrative MEDINFORMATIX TO EPIC CONVERSION - 07/23/2009 1:31 PM BIOCHEMICAL DEVELOPMENT ENGINEER Reviewed by ANGELA Jul 23 2009 1:33:00:000PM us Generic Conversion Md [facility] Final R esult MEDINFORMATIX TO EPIC CONVERSION from Last 3 Months or Most Recently Relevant to Health Maintenance Insurance MEDICAID Member Subscriber Plan / Payer ( fective 2018-Present) Name:Krystamarsha Nicole Relation to Subscriber:Self Name:Mateusz Stone Ann Payer ID:Not on file Group ID:Not on file Type:Not on file Address: [address] MEDICARE MEDICAID Member Subscriber Plan / Payer ( fective 2018-Present) Name:KrystamarshaMateuszNicole Relation to Subscriber:Self Name:OleksandrmollyLittle larsoni Ann Payer ID:Not on file Group ID:Not on file Type:Not on file Address: [address] MEDICARE MEDICAID Advance Directives * Full Code (Latest Code Status on File) Date Activated Date Inactivated Comments 06/29/2022 9:52 AM 06/29/2022 1:43 PM Care Teams Jewel Blocker And Sawyer Relationship Specialty Start Date End Date Virgilio Meehan DO [address] [place] [address] PCP - General FAMILY PRACTICE 09/08/22 Cee Liu, CLINICAL TRIALS SPECIALIST, SEAM PRESS OPERATOR-C [address] [facility] [address] [place] [address] NURSE PRACTITIONER 05/27/22 Mame Osborn MD [address] [place] [address] INTERVENTIONAL CARDIOLOGY 05/10/24
--- OUTSIDE RECORDS SUMMARY | 2025-07-22 10:22 | XMS_ITS | Encounter Summary ---
Author Organization [facility] Address [facility] access hospital[address] [place] [address] Care Team Providers Care Supervisor [place]ond Name Role Phone Alexis Thurman MD Unavailable [phone] Willian Mendoza MD Primary Care Provider [phone] Cee Liu APRN, SENIOR CLINICAL RESEARCH ASSOCIATE-C Unavailable Virgilio Meehan DO Primary Care Provider [phone] Mame Osborn MD Unavailable [phone] Encounter Details Date Type Department Care Team (Late st Contact Info) Description 06/24/2022 Hospital Orders Only [employer] Computer Instructor Pre/Post [address] [place] [address] Alexis Thurman MD [address] [place] [address] Social History Tobacco Use Types [...] filedocumented in this encounter Care Teams Supervisor [place]ond Relationship Specialty Start Date End Date Willian Mendoza MD [address] [place] [address] PCP - General INTERNAL MEDICINE 09/14/18 09/07/22 Virgilio Meehan DO [address] [place] [address] PCP - General FAMILY PRACTICE 09/08/22 Alexis Thurman MD [address] [place] [address] [place] Box Attacher CARDIOVASCULAR DISEASE 09/14/18 04/01/24 Cee Liu APRN, SENIOR CLINICAL RESEARCH ASSOCIATE-C [address] [facility] [address] [place] [address] NURSE PRACTITIONER 05/27/22 Mame Osborn MD [address] [place] [address] INTERVENTIONAL CARDIOLOGY 05/10/24 documented as of this encounter
--- OUTSIDE RECORDS SUMMARY | 2025-07-22 10:22 | XMS_ITS | Encounter Summary ---
Author Organization [facility] Address [facility] [place] [address] Care Team Providers Care Property Consultant Name Role Phone Alexis Thurman MD Unavailable [phone] Cee Liu APRN, NP-C Unavailable Virgilio Meehan DO Primary Care Provider [phone] Mame Osborn MD Unavailable [phone] Encounter Details Date Type Department Care Team (Late st Contact Info) Description 12/21/2022 Abstract [facility] [address] [place] [address] [place] [address] [place] [address] Social History Tobacco Use Types Packs/Day Years [...] on filedocumented in this encounter Care Teams Property Consultant Relationship Specialty Start Date End Date Virgilio Meehan DO [address] [place] [address] PCP - General FAMILY PRACTICE 09/08/22 Alexis Thurman MD [address] [place] [address] [place] Home Office Claims Examiner CARDIOVASCULAR DISEASE 09/14/18 04/01/24 Cee Liu, HOUSE MOVER, ROLL SETTER-C [address] [facility] [address] [place] [address] NURSE PRACTITIONER 05/27/22 Mame Osborn MD [address] [place] [address] INTERVENTIONAL CARDIOLOGY 05/10/24 documented as of this encounter
--- NOTE | 2025-07-22 10:40 | NEURO_ITS ---
Impression: # Diabetic following carpal tunnel surgery complains of increasing numbness. ? # Left median motor poor response underlying Neuropathy. ? # Right Carpal Tunnel Syndrome. ? # Ulnar Neuropathy, right more than left, across the elbow. ? # Abnormal Needle/ EMG exam. ? Nerve Conduction Studies ?Stim Site NR Peak (ms) P-T Amp (?V) Site1 Site2 Delta-P (ms) Dist (cm) Juaquin (m/s) Left Median Anti Sensory (2-3nd Digit) Wrist ? 11.1 9.4 Wrist 2-3nd Digit 11.1 14.0 13 Wrist ? 10.2 3.7 Wrist 2-3nd Digit 11.1 14.0 13 Right Median Anti Sensory (2-3nd Digit)??? NO RESPONSE Wrist NR Wrist 2-3nd Digit 14.0 Wrist ? 6.5 6.1 Wrist 2-3nd Digit 14.0 Left Radial Anti Sensory (Base 1st Digit) Wrist ? 2.2 10.0 Wrist Base 1st Digit 2.2 0.0 Right Radial Anti Sensory (Base 1st Digit) Wrist ? 2.1 10.0 Wrist Base 1st Digit 2.1 0.0 Left Ulnar Anti Sensory (5th Digit) Wrist ? 7.7 12.0 Wrist 5th Digit 7.7 14.0 18 Right Ulnar Anti Sensory (5th Digit) Wrist ? 4.6 16.3 Wrist 5th Digit 4.6 14.0 30 ?Stim Site NR Onset (ms) O-P Amp (mV) Site1 Site2 Delta-0 (ms) Dist (cm) Juaquin (m/s) Left Median Motor (Abd Poll Brev)??? NO RESPONSE Wrist NR Elbow Wrist 26.0 Elbow NR Right Median Motor (Abd Poll Brev) Wrist ? 5.4 0.9 Elbow Wrist 4.7 29.0 62 Elbow ? 10.1 2.8 Left Ulnar Motor (Abd Dig Minimi) Wrist ? 3.2 6.4 A Elbow Wrist 5.6 28.0 50 A Elbow ? 8.8 5.1 B Elbow Wrist 4.2 23.0 55 B Elbow ? 7.4 5.2 Right Ulnar Motor (Abd Dig Minimi) Wrist ? 3.0 5.7 A Elbow Wrist 6.3 29.0 46 A Elbow ? 9.3 5.0 B Elbow Wrist 4.6 21.0 46 B Elbow ? 7.6 4.2 F Wave Studies ?NR F-Lat (ms) L-R F-Lat (ms) Left Median (Mrkrs) (Abd Poll Brev) ? 26.14 0.00 Right Median (Mrkrs) (Abd Poll Brev) ? 26.14 0.00 Left Ulnar (Mrkrs) (Abd Dig Min) ? 35.33 3.94 Right Ulnar (Mrkrs) (Abd Dig Min) ? 31.39 3.94 Electromyography ?Side Muscle Nerve Root Ins Act Fibs Amp Dur Recrt Comment Right PronatorTeres Median C6-7 Nml Nml Decr >12ms +1 Left PronatorTeres Median C6-7 Nml Nml Decr >12ms +1 Right FlexPolLong Median (Ant Int) C7-8 Nml Nml Nml Nml Nml Left FlexPolLong Median (Ant Int) C7-8 Nml Nml Nml Nml Nml Right Ext Indicis Radial (Post Int) C7-8 Nml Nml Decr >12ms +1 Left Ext Indicis Radial (Post Int) C7-8 Nml Nml Decr >12ms +1 Right Ext Digitorum Radial (Post Int) C7-8 Nml Nml Decr >12ms Nml Left Ext Digitorum Radial (Post Int) C7-8 Nml Nml Decr >12ms Nml Right BrachioRad Radial C5-6 Nml Nml Decr >12ms +1 Left BrachioRad Radial C5-6 Nml Nml Decr >12ms +1 Right Abd Poll Long Radial (Post Int) C7-8 Nml Nml Nml Nml Nml Left Abd Poll Long Radial (Post Int) C7-8 Nml Nml Nml Nml Nml Right Abd Poll Brev Median C8-T1 Nml Nml Decr >12ms +3 Left Abd Poll Brev Median C8-T1 Nml Nml Decr >12ms +3 Right ABD Dig Min Ulnar C8-T1 Nml Nml Decr >12ms +2 Left ABD Dig Min Ulnar C8-T1 Nml Nml Decr >12ms +2 Right 1stDorInt Ulnar C8-T1 Nml Nml Decr >12ms +3 Left 1stDorInt Ulnar C8-T1 Nml Nml Decr >12ms +3
== END 2025-07-22 09:42 | disposition home or self-care (01) ==
LOC: ANHNEURO 09:43
PROVIDERS: PCP Family Medicine; Visit Provider Orthopaedic Surgery
DX: R20.2 Paresthesia of skin (principal); G56.01 Carpal tunnel syndrome, right upper limb; G56.23 Lesion of ulnar nerve, bilateral upper limbs
CPT/HCPCS: 95886; 95911

== ENCOUNTER 2025-07-24 16:21 | Outpatient (RCR) | payer MEDICARE, SELFPAY ==
[2025-05-20 16:20] LABS: Magnesium 1.3 mg/dL (1.6-2.3)
[2025-06-24 10:06] LABS: Magnesium 1.5 mg/dL (1.6-2.3)
[2025-07-24 16:58] LABS: Magnesium 1.4 mg/dL (1.6-2.3)
== END 2025-08-18 23:59 | disposition home or self-care (01) ==
LOC: CHSLAB 16:21
PROVIDERS: PCP Nurse Practitioner Family; Visit Provider Nurse Practitioner Family
DX: R74.01 Elevation of levels of liver transaminase levels (principal); N18.30 Chronic kidney disease, stage 3 unspecified
CPT/HCPCS: 36415; 83735

== ENCOUNTER 2025-07-25 08:21 | Outpatient (CLI) | payer MEDICARE, MEDICAID, SELFPAY ==
[2025-07-25 08:45] VITALS: BP 119/76; PULSE 72; RESP 14; TEMP 36.5; O2SAT 97; BMI 35.1
[2025-07-25] MEDS: SODIUM CHLORIDE 0.9% IVPB (08:45)
[2025-07-25] MEDS: MAGNESIUM SULFATE IVPB (08:45)
[2025-07-25] MEDS: CYANOCOBALAMIN INJ 1,000 MCG/ML VIAL 1000 MCG IM (08:54)
[2025-07-25 11:55] VITALS: BP 111/69; PULSE 68; RESP 14; TEMP 36.4; O2SAT 97
--- NOTE | 2025-07-25 13:08 | PC.NURSE ---
Patient tolerated monthly Magnesium infusion and B12 injection well. SEE MAR/patient care notes
== END 2025-07-25 08:22 | disposition home or self-care (01) ==
PROVIDERS: PCP Family Medicine; Visit Provider Nurse Practitioner Family
DX: E83.42 Hypomagnesemia (principal); D51.9 Vitamin B12 deficiency anemia, unspecified
CPT/HCPCS: 96365; 96366; 96372; J3420; J3475; J7050

== ENCOUNTER 2025-07-31 08:18 | Outpatient (CLI) | payer MEDICARE, SELFPAY ==
--- NOTE | ~2025-07-31 | US_ITS ---
EXAMINATION: US renal BI DATE: 07/31/2025 08:55 INDICATION: Acquired right renal cyst TECHNIQUE: Multiple ultrasound grayscale images of the kidneys were obtained. COMPARISON: None. FINDINGS: The right kidney measures 11.1 x 5.6 x 4.0 cm. The left kidney measures 10.0 x 4.9 x 4.8 cm. In seen is mild increased bilateral renal cortical echogenicity consistent with medical renal disease. There are a couple anechoic cysts in the right kidney the larger measuring 2.7 cm in maximal diameter. Mild right hydronephrosis. Left renal pelvis is mildly prominent but without aimee hydronephrosis. No stones identified. The bladder is normal with bilateral ureteral jets visualized on color Doppler. Incidentally noted is a 12.5 x 4.5 x 3.3 cm anechoic fluid collection extending transversely across the anterior abdominal wall near the level of the dome of the diaphragm which likely represents a postoperative hematoma/seroma related to reported recent panniculectomy. IMPRESSION: 1. Persistent bilateral mild increased renal cortical echogenicity consistent with chronic medical renal disease. 2. Mild right hydronephrosis. 3. 4.5 x 4.5 x 3.3 cm anechoic fluid collection most likely a postoperative hematoma/seroma along the anterior abdominal wall. Differential would include abscess in the appropriate clinical setting. Reviewed, dictated and finalized at location A. DING MACHINE OPERATOR IMPRESSION: 1. Persistent bilateral mild increased renal cortical echogenicity consistent with chronic medical renal disease. 2. Mild right hydronephrosis. 3. 4.5 x 4.5 x 3.3 cm anechoic fluid collection most likely a postoperative hem atoma/seroma along the anterior abdominal wall. Differential would include absc ess in the appropriate clinical setting.
== END 2025-07-31 08:19 | disposition home or self-care (01) ==
LOC: CHSIMG 08:22
PROVIDERS: PCP Family Medicine; Visit Provider Urology
DX: N28.1 Cyst of kidney, acquired (principal); N13.30 Unspecified hydronephrosis
CPT/HCPCS: 76770

== ENCOUNTER 2025-08-12 10:06 | Outpatient (CLI) | payer MEDICARE, MEDICAID, SELFPAY ==
--- NOTE | ~2025-08-12 | NM_ITS ---
EXAMINATION: LUCRETIA hicks renal scan DATE: 08/12/2025 11:22 INDICATION: Hydronephrosis TECHNIQUE: 10.0 mCi Tc-99m MAG3 was administered IV. 40 mg furosemide was administered IV 10 minutes afterward. The patient was scanned in the upright/supine position. A posterior abdominal radionuclide angiogram was obtained. A subsequent time course of static images of the kidneys, ureters, and bladder was obtained. COMPARISON: None FINDINGS: The posterior abdominal radionuclide angiogram and sequential static images show normal size, position, and morphology of the kidneys. Peak renal parenchymal uptake was 10.5 min in left kidney and 18.5 min in right kidney (normal peak 3-5 minutes). The relative early renal uptake was 48% on the left and 52% on the right (<40% is abnormal). No abnormalities of the ureters or bladder are seen. T1/2 for clearance of activity from the left kidney and proximal collecting system was 19 minutes. T1/2 for clearance of activity from the right kidney and proximal collecting system was >30 minutes. Notes on interpretation: T1/2 <10 minutes is normal, 10-15 minutes is low grade obstruction of questionable clinical significance, 15-20 minutes is partial obstruction that is likely clinically significant, >20 minutes is high grade obstruction. Note that false positives may be seen with supine positioning, dehydration, severely dilated nonobstructed kidney, atonic collecting system, poor renal function, and chronic furosemide use. IMPRESSION: 1. Symmetric kidney function. 2. Delayed activity clearance from both kidneys, moderate left kidney consistent with likely clinically significant partial obstruction and severe in the right kidney consistent with high-grade obstruction. Reviewed, dictated and finalized at location A. S FARMWORKER IMPRESSION: 1. Symmetric kidney function. 2. Delayed activity clearance from both kidneys, moderate left kidney consiste nt with likely clinically significant partial obstruction and severe in the rig ht kidney consistent with high-grade obstruction.
--- OUTSIDE RECORDS SUMMARY | 2025-08-12 10:41 | XMS_ITS | Encounter Summary ---
Author Organization [facility] Address [facility] [place] [address] Care Team Providers Care Cv Rn Name Role Phone Alexis Thurman MD Unavailable [phone] Willian Mendoza MD Primary Care Provider [phone] Cee Liu APRN, REGISTERED PRIVATE DUTY NURSE-C Unavailable Virgilio Meehan DO Primary Care Provider [phone] Mame Osborn MD Unavailable [phone] Encounter Details Date Type Department Care Team (Late st Contact Info) Description 06/24/2022 Hospital Orders Only [place] [employer] Pre/Post [address] [place] [address] Alexis Thurman MD [address] [place] [address] Social History Tobacco Use Types [...] on filedocumented in this encounter Care Teams Cv Rn Relationship Specialty Start Date End Date Willian Mendoza MD [address] [place] [phone] PCP - General INTERNAL MEDICINE 09/14/18 09/07/22 Virgilio Meehan DO [address] [place] [address] PCP - General FAMILY PRACTICE 09/08/22 Aelxis Thurman MD [address] [place] [address] [place] Security Public Safety Officer CARDIOVASCULAR DISEASE 09/14/18 04/01/24 Cee Liu APRN, REGISTERED PRIVATE DUTY NURSE-C [address] [facility] [address] [place] [address] NURSE PRACTITIONER 05/27/22 Mame Osborn MD [address] [place] [address] INTERVENTIONAL CARDIOLOGY 05/10/24 documented as of this encounter
--- OUTSIDE RECORDS SUMMARY | 2025-08-12 10:41 | XMS_ITS | Clinical Summary ---
Author Organization [facility] Address [facility] [place] [address] Care Team Providers Care Landcare Facilitator Name Role Phone Cee Liu APRN, NP-C Unavailable Virgilio Meehan DO Primary Care Provider [phone] Mame Osborn MD Unavailable [phone] Allergies Active Allergy Reactions Criticality Noted Date Comments Amoxicillin-Pot Clavulanate Diarrhea 05/27/2022 Metformin Other (see comment) 05/27/2022 Renal function impairment Pantoprazole Other (see comment) 05/27/2022 Hypomagnesemia Medications CPAP DME DEVICE CPAPCPAP 89prL27 via IV [id number] Morrissey 8 Active allopurinol 100 MG tablet [...] Type Department Care Team Description 06/20/2025 Telephone [facility] [address] [place] [address] Alexis Thurman MD Information from Last 3 Months Family History Medical [...] 36.2 C (97.2 F) 06/29/2022 6:18 AM POLYTECHNIC REGISTRAR Respiratory Rate 16 05/07/2025 1:03 PM CDT [...] this topic Medical Devices Implanted Type Area Supervisor Winter Device Identifier Shelf Expiration Date Model / Serial / Lot Stent Ureteral Roselle Sci Contour 6fr X 26cm - [id number] Implanted:Qty : 1 on 06/28/2021 by Ryan Vinson MD at [facility] [place] Stent Right: Ureter [facility] MASOOD [id number] 04/12/2024 [id number] Procedures Procedure Name Priority Date/Time Associated Diagnosis Comments LIPID PANEL Routine 07/23/2009 12:00 AM POLYTECHNIC REGISTRAR from Last 3 Months or Most Recently Relevant to Health Maintenance Results * LIPID PANEL (07/23/2009 12:00 AM POLYTECHNIC REGISTRAR) TRIGLYCERIDES 132 0 - 150 mg/dl MEDINFORMATIX TO EPIC CONVERSION CHOLESTEROL 180 0 - 200 mg/dl MEDINFORMATIX TO EPIC CONVERSION HDL 61 40 - 59 mg/dl MEDINFORMATIX TO EPIC CONVERSION LDL CONVERSION 93 0 - 100 mg/dl MEDINFORMATIX TO EPIC CONVERSION CHOL/HDL RATIO 3.0 <4.0 (Calc) MEDINFORMATIX TO EPIC CONVERSION 07/23/2009 07/23/2009 Narrative MEDINFORMATIX TO EPIC CONVERSION - 07/23/2009 1:31 PM POLYTECHNIC REGISTRAR Reviewed by ANGELA Jul 23 2009 1:33:00:000PM us Generic Conversion Md [facility] Final R esult MEDINFORMATIX TO EPIC CONVERSION from Last 3 Months or Most Recently Relevant to Health Maintenance Insurance MEDICAID Member Subscriber Plan / Payer (Ef fective 2018-Present) Name:Keri Stone Relation to Subscriber:Self Name:Keri Stone Payer ID:Not on file Group ID:Not on file Type:Not on file Address: [address] MEDICARE MEDICAID Member Subscriber Plan / Payer (Ef fective 2018-Present) Name:Keri Stone Ann Relation to Subscriber:Self Name:Keri Stone Ann Payer ID:Not on file Group ID:Not on file Type:Not on file Address: BOX [facility] DEPT OF [address] MEDICARE MEDICAID Advance Directives * Full Code (Latest Code Status on File) Date Activated Date Inactivated Comments 06/29/2022 9:52 AM 06/29/2022 1:43 PM Care Teams Landcare Facilitator Relationship Specialty Start Date End Date Virgilio Meehan DO [address] [place] [address] PCP - General FAMILY PRACTICE 09/08/22 Cee Liu, ANGEL, STONE LAYOUT MARKER-C [address] [facility] [address] [place] [address] NURSE PRACTITIONER 05/27/22 Mame Osborn MD [address] [place] [address] INTERVENTIONAL CARDIOLOGY 05/10/24
--- OUTSIDE RECORDS SUMMARY | 2025-08-12 10:41 | XMS_ITS | Clinical Summary ---
Author Organization [facility] Address [address] [place] [address] Care Team Providers Care Octave Board Assembler Name Role Phone Willian Mendoza MD Primary Care Provider [phone] Allergies Active Allergy Reactions Criticality Noted Date [...] mouth 2 (two) times a day Active okoqxsjvosih-Mw-dt on-minerals tablet Take 1 tablet by mouth [...] 1 tablet (100 mcg total) by mouth octave board assembler before breakfast 90 tablet 3 08/07/20 24 [...] appearing cyst on renal bladder ultrasound at [facility] dated 08/26/2022. Diabetes mellitus 02/18/2025 Overview (02/18/2025): Phreesia 06/01/2021 H/O gastric sleeve 01/09/2024 Iron deficiency anemia 08/31/2023 Stage 3b chronic kidney disease 08/31/2023 Hypertension, essential 08/31/2023 Overview (02/18/2025): Phreesia 06/01/2021 Hypomagnesemia 05/07/2023 Acquired hypothyroidism 03/17/2022 Assessment & Plan (08/07/2024 5:51 PM TALENT DEVELOPMENT COORDINATOR): Chronic, stable. Continue levothyroxine Update TFTs Assessment & Plan (08/10/2023 3:53 PM TALENT DEVELOPMENT COORDINATOR): Chronic, well-controlled Importance of taking levothyroxine on [...] 04/17/2018 Assessment & Plan (08/07/2024 5:51 PM TALENT DEVELOPMENT COORDINATOR): Chronic, stable Update lipid profile Continue statin therapy Assessment & Plan (08/10/2023 3:53 PM TALENT DEVELOPMENT COORDINATOR): Chronic, well-controlled Continue statin therapy with Pravachol Assessment & Plan (01/17/2023 1:59 PM CDT): Chronic, well controlled Low fat Low cholesterol diet Exercise Continue statin therapy with Pravachol Assessment & Plan (03/17/2022 9:47 AM CDT): Chronic problem. On statin therapy, no changes. Assessment & Plan (10/28/2021 1:21 PM TALENT DEVELOPMENT COORDINATOR): Chronic problem. On statin therapy, no changes. [...] Pravachol Assessment & Plan (09/27/2019 9:29 AM TALENT DEVELOPMENT COORDINATOR): LDL at goal. Trigs elevated. Continue statin [...] therapy Assessment & Plan (08/07/2018 1:59 PM TALENT DEVELOPMENT COORDINATOR): At goal on current medications. Assessment & [...] dicussed Assessment & Plan (09/27/2019 9:29 AM TALENT DEVELOPMENT COORDINATOR): Continues to do well with wt loss [...] adjusted. Assessment & Plan (08/07/2018 1:59 PM TALENT DEVELOPMENT COORDINATOR): Continues to gain weight. Little attempt at diet and exercise. Reviewed importance of avoiding juice, soda, high fat, high carb foods. Assessment & Plan (10/05/2017 2:49 PM TALENT DEVELOPMENT COORDINATOR): Diet and exercise were discussed. 1200 Calorie diet advised 45-60 min aerobic / resistance exercise most days of the week recommended. Bariatric surgery medically indicated Assessment & Plan (07/20/2017 4:17 PM TALENT DEVELOPMENT COORDINATOR): Importance of following diet and exercising discussed. 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 Assessment & Plan (10/28/2021 1:21 PM TALENT DEVELOPMENT COORDINATOR): Controlled on current medications, no changes. Assessment [...] microalbumin Assessment & Plan (09/27/2019 9:29 AM TALENT DEVELOPMENT COORDINATOR): Controlled on current medications. Continue plan. Assessment & Plan (06/06/2019 2:49 PM CDT): Controlled on current medications. Continue plan. Assessment & Plan (11/01/2018 2:04 PM CDT): Goal blood pressure is less than 140/85 Low salt diet recommended Daily aerobic exercise Continue current meds, including ALYCE-I or ARB Assessment & Plan (08/07/2018 2:00 PM TALENT DEVELOPMENT COORDINATOR): Controlled on current medications. Assessment & Plan (04/17/2018 2:07 PM CDT): Goal blood pressure is less than 140/85 Low salt diet recommended Daily aerobic exercise Continue current meds, including ALYCE-I or ARB Assessment & Plan (10/05/2017 2:50 PM TALENT DEVELOPMENT COORDINATOR): Goal blood pressure is less than 140/85 Low salt diet recommended Daily aerobic exercise Continue current meds, including ALYCE-I or ARB Assessment & Plan (07/20/2017 4:18 PM TALENT DEVELOPMENT COORDINATOR): Controlled on current medications. Assessment & Plan (04/06/2017 4:28 PM CDT): At goal on current medications. Hyperlipidemia 09/19/2012 Overview (11/24/2016): HYPERLIPIDEMIA NEC/NOS Assessment & Plan (06/06/2019 2:49 PM CDT): Lipid panel ordered Assessment & Plan (07/20/2017 4:18 PM TALENT DEVELOPMENT COORDINATOR): Will check lipid panel Assessment & Plan (04/06/2017 4:28 PM CDT): Check labs and focus on low fat foods Furuncle of trunk 06/28/2012 Overview (11/23/2016): Carbuncle and furuncle of trunk Type 2 diabetes mellitus 06/28/2012 Overview (11/24/2016): DMII WO CMP UNCNTRLD Assessment & Plan (08/07/2024 5:50 PM TALENT DEVELOPMENT COORDINATOR): Chronic, stable Diet and exercise were emphasized Continue Farxiga and Ozempic Assessment & Plan (02/13/2024 4:29 PM CDT): Chronic, well-controlled. Continue Ozempic 2 mg weekly Farxiga 10 mg Importance of diet and exercise was discussed Assessment & Plan (08/10/2023 3:52 PM TALENT DEVELOPMENT COORDINATOR): Chronic, well-controlled, with some postprandial hyperglycemia Continue [...] Farxita Assessment & Plan (07/19/2022 1:34 PM TALENT DEVELOPMENT COORDINATOR): Hba1c was Lab Results Component Value Date [...] today. Assessment & Plan (10/28/2021 1:43 PM TALENT DEVELOPMENT COORDINATOR): Chronic problem, not at goal. Increase NL [...] breakfast Assessment & Plan (09/27/2019 9:31 AM TALENT DEVELOPMENT COORDINATOR): A1c increased to 7.8. Pattern acceptable during [...] discussed. Assessment & Plan (08/07/2018 2:02 PM TALENT DEVELOPMENT COORDINATOR): A1c 8.1. Baseline BG reported at goal. [...] discussed. Assessment & Plan (10/05/2017 2:51 PM TALENT DEVELOPMENT COORDINATOR): Hba1c was . 9.6 . today, indicating [...] discussed. Assessment & Plan (07/20/2017 4:17 PM TALENT DEVELOPMENT COORDINATOR): A1c improved 8.7, ~ 2%. Mostly from [...] Encounters Date Type Department Care Team Description 07/24/[address] [facility] [id number] [place] [address] [address] [address] Anthony Castillo MD Forms Request (Synapse) 07/23/2025 Telephone [facility] Diabetes and Endocrinology [address] [place] [address] Anthony Castillo MD patient request refill 06/30/2025 Telephone [facility] Diabetes and Endocrinology [address] [place] [address] Anthony Castillo MD from Last 3 [...] 08/21/2018 - 08/20/2019 Gastric sleeve at [facility] Medical History Medical History Date Comments Hyperlipidemia [...] on file Legal Sex Female 10:22 AM TALENT DEVELOPMENT COORDINATOR Gender Identity Not on file Sexual Orientation Straight 08/07/2024 2: 11 PM TALENT DEVELOPMENT COORDINATOR Last Filed Vital Signs Vital Sign Reading [...] insulin (HCC) HM DIABETES EYE EXAM Routine 02/05/2025 8:08 AM [...] LAB BLOOD ORDERABLES Final Resul t [facility]GA [address] Department [place] [address] * (ABNORMAL) Albumin Creatinine Ratio, [...] LAB URINE ORDERABLES Final Resul t OL[facility] [address] [facility] [place] [address] * (ABNORMAL) Lipid panel (02/18/2025 4:02 PM [...] BLOOD ORDERABLES Final Resul t [facility] [address] Department [place] [address] * (ABNORMAL) POCT hemoglobin A1c (02/18/2025 3:13 [...] Recently Relevant to Health Maintenance Insurance IDPA [facility] MEDICARE ADVANTAGE [facility] MEDICARE ADVANTAGE IDPA Care Teams Octave Board Assembler Relationship Specialty Start Date End Date Willian Mendoza MD PCP - General 02/18/16
--- OUTSIDE RECORDS SUMMARY | 2025-08-12 10:41 | XMS_ITS | Encounter Summary ---
Author Organization [facility] Address [facility] [place] [address] Care Team Providers Care Park Worker Name Role Phone Alexis Thurman MD Unavailable [phone] Willian Mendoza MD Primary Care Provider [phone] Cee Liu APRN, CAR PAINTER-C Unavailable Virgilio Meehan DO Primary Care Provider [phone] Mame Osborn MD Unavailable [phone] Encounter Details Date Type Department Care Team (Late st Contact Info) Description 11/04/2017 Abstract [facility] [address] [place] [address] , Generic MD Guilherme Social History Tobacco [...] on filedocumented in this encounter Care Teams Park Worker Relationship Specialty Start Date End Date Willian Mendoza MD [address] [place] [address] PCP - General INTERNAL MEDICINE 09/14/18 09/07/22 Virgilio Meehan DO [address] [place] [address] PCP - General FAMILY PRACTICE 09/08/22 Alexis Thurman MD [address] [place] [address] [place] Carbonation Tester CARDIOVASCULAR DISEASE 09/14/18 04/01/24 Cee Liu APRN, CAR PAINTER-C [address] [facility] [address] [place] [address] NURSE PRACTITIONER 05/27/22 Mame Osborn MD [address] [place] [address] INTERVENTIONAL CARDIOLOGY 05/10/24 documented as of this encounter
--- OUTSIDE RECORDS SUMMARY | 2025-08-12 10:41 | XMS_ITS | Encounter Summary ---
Author Organization [facility] Address [facility] [place] [address] Care Team Providers Care Prop Cutter Name Role Phone Alexis Thurman MD Unavailable [phone] Willian Mendoza MD Primary Care Provider [phone] Cee Liu APRN, ENGAGEMENT LIAISON-C Unavailable Virgilio Meehan DO Primary Care Provider [phone] Mame Osborn MD Unavailable [phone] Encounter Details Date Type Department Care Team (Late st Contact Info) Description 10/12/2018 Abstract [facility] [address] [place] [address] Abstract, Doc Pre[facility] Social History [...] on filedocumented in this encounter Care Teams Prop Cutter Relationship Specialty Start Date End Date Willian Mendoza MD [address] [place] [address] PCP - General INTERNAL MEDICINE 09/14/18 09/07/22 Virgilio Meehan DO [address] [place] [address] PCP - General FAMILY PRACTICE 09/08/22 Alexis Thurman MD [address] [place] [address] [place] Dot Net Architect CARDIOVASCULAR DISEASE 09/14/18 04/01/24 Cee Liu APRN, ENGAGEMENT LIAISON-C [address] [facility] [address] [place] [address] NURSE PRACTITIONER 05/27/22 Mame Osborn MD [address] [place] [address] INTERVENTIONAL CARDIOLOGY 05/10/24 documented as of this encounter
--- OUTSIDE RECORDS SUMMARY | 2025-08-12 10:41 | XMS_ITS | Encounter Summary ---
Author Organization [facility] Address [facility] [place] [address] Care Team Providers Care Senior Test Analyst Name Role Phone Alexis Thurman MD Unavailable [phone] Willian Mendoza MD Primary Care Provider [phone] Cee Liu APRN, PACKING HOUSE LABORER-C Unavailable [phone] Virgilio Meehan DO Primary Care Provider [phone] Mame Osborn MD Unavailable [phone] Encounter Details Date Type Department Care Team (Late st Contact Info) Description 04/07/2021 Abstract [facility] [address] [place] [address] Ella Witt MD [address] [place] [address] Social History Tobacco Use Types Packs/Day [...] filedocumented in this encounter Care Teams Senior Test Analyst Relationship Specialty Start Date End Date Willian Mendoza MD [address] [place] [address] PCP - General INTERNAL MEDICINE 09/14/18 09/07/22 Virgilio Meehan DO [address] [place] [address] PCP - General FAMILY PRACTICE 09/08/22 Alexis Thurman MD [address] [place] [address] [place] Tankerman CARDIOVASCULAR DISEASE 09/14/18 04/01/24 Cee Liu APRN, PACKING HOUSE LABORER-C [address] [facility] [address] [place] [address] NURSE PRACTITIONER 05/27/22 Mame Osborn MD [address] [place] [address] INTERVENTIONAL CARDIOLOGY 05/10/24 documented as of this encounter
--- OUTSIDE RECORDS SUMMARY | 2025-08-12 10:41 | XMS_ITS | Encounter Summary ---
Author Organization [facility] Address [facility] [place] [address] Care Team Providers Care Director Information Security Name Role Phone Alexis Thurman MD Unavailable [phone] Willian Mendoza MD Primary Care Provider [phone] Cee Liu APRN, NURSING EXECUTIVE-C Unavailable Virgilio Meehan DO Primary Care Provider [phone] Mame Osborn MD Unavailable [phone] Encounter Details Date Type Department Care Team (Late st Contact Info) Description 07/04/2022 Abstract [facility] [address] [place] [address] Alexis Thurman MD [address] [place] [address] Social History Tobacco Use Types Packs/Day Years [...] Coronavirus/COVID-19? No / Unsure 06/29/2022 5:44 AM TEACHER OF FAMILY AND CONSUMER SCIENCE documented as of this encounter Plan of [...] on filedocumented in this encounter Care Teams Director Information Security Relationship Specialty Start Date End Date Willian Mendoza MD [address] [place] [address] PCP - General INTERNAL MEDICINE 09/14/18 09/07/22 Virgilio Meehan DO [address] [place] [address] PCP - General FAMILY PRACTICE 09/08/22 Alexis Thurman MD [address] [place] [address] [place] Geospatial Specialist CARDIOVASCULAR DISEASE 09/14/18 04/01/24 Cee Liu APRN, NURSING EXECUTIVE-C [address] [facility] [address] [place] [address] NURSE PRACTITIONER 05/27/22 Mame Osborn MD [address] [place] [address] INTERVENTIONAL CARDIOLOGY 05/10/24 documented as of this encounter
--- OUTSIDE RECORDS SUMMARY | 2025-08-12 10:41 | XMS_ITS | Clinical Summary ---
Author Organization [facility] Address [address] [facility] [place] [address] Care Team Providers Care Conversion Developer Name Role Phone Pcp, Frieda Primary Care Provider [phone] Social History Tobacco Use Types Packs/Day Years Used Date Smoking Tobacco: Never Assessed Comments Unknown Sex and Gender Information Value Date Recorded Sex Assigned at Not on file Legal Sex Female 3:15 PM EST Gender Identity Not on file Sexual Orientation Not on file Plan of Treatment Not on file Medical Devices Not on file Care Teams Conversion Developer Relationship Specialty Start Date End Date Frieda Ledezma PCP - General Family Medicine 08/20/20
--- OUTSIDE RECORDS SUMMARY | 2025-08-12 10:41 | XMS_ITS | Encounter Summary ---
Author Organization [facility] [place] Address [facility] [place] [address] Care Team Providers Care [employer] Consultant Name Role Phone Alexis Thurman MD Unavailable Cee Liu APRN, NP-C Unavailable Virgilio Meehan DO Primary Care Provider Mame Osborn MD Unavailable [phone] Encounter Details Date Type Department Care Team (Late st Contact Info) Description 09/23/2022 Abstract [facility] [address] [place] [id number] Alexis Thurman MD [address] [place] [address] Social History Tobacco Use Types [...] Coronavirus/COVID-19? No / Unsure 09/08/2022 8:48 AM STORE CLERK CASHIER documented as of this encounter Plan of Treatment Not on file documented as of this encounter Visit Diagnoses Not on filedocumented in this encounter Care Teams [employer] Consultant Relationship Specialty Start Date End Date BusVirgilio maxwell DO [address] [place] [address] PCP - General FAMILY PRACTICE 09/08/22 Alexis Thurman MD [address] [place] [address] [place] [employer] Technician CARDIOVASCULAR DISEASE 09/14/18 04/01/24 Cee Liu, ELECTRONIC GLUER, CARPENTER REFRIGERATOR-C [address] [facility] [address] [place] [address] NURSE PRACTITIONER 05/27/22 Mame Osborn MD [address] [place] [address] INTERVENTIONAL CARDIOLOGY 05/10/24 documented as of this encounter
--- OUTSIDE RECORDS SUMMARY | 2025-08-12 10:41 | XMS_ITS | Encounter Summary ---
Author Organization [facility] Address [facility] [place] [address] Care Team Providers Care Human Resources Manager Name Role Phone Alexis Thurman MD Unavailable [phone] Cee Liu APRN, NP-C Unavailable [phone] Virgilio Meehan DO Primary Care Provider Mame Osborn MD Unavailable [phone] Encounter Details Date Type Department Care Team (Late st Contact Info) Description 12/21/2022 Abstract [facility] [address] [place] [address] [place] [address] [place] [address] Social History Tobacco Use Types Packs/Day Years [...] on filedocumented in this encounter Care Teams Human Resources Manager Relationship Specialty Start Date End Date Virgilio Meehan DO [address] [place] [address] PCP - General FAMILY PRACTICE 09/08/22 Alexis Thurman MD [address] [place] [address] Rochelle Auricular Acupuncturist CARDIOVASCULAR DISEASE 09/14/18 04/01/24 Cee Liu, DIRECT CARE WORKER, AIR POLLUTION SPECIALIST-C [address] [facility] [address] [place] [address] NURSE PRACTITIONER 05/27/22 Mame Osborn MD [address] [place] [address] INTERVENTIONAL CARDIOLOGY 05/10/24 documented as of this encounter
--- OUTSIDE RECORDS SUMMARY | 2025-08-12 10:41 | XMS_ITS | Encounter Summary ---
Author Organization [facility] Address [facility] [place] [address] Care Team Providers Care Cloth Bleaching Range Back Tender Name Role Phone Cee Liu APRN, RESEARCH PHLEBOTOMIST-C Unavailable [phone] Virgilio Meehan DO Primary Care Provider [phone] Mame Osborn MD Unavailable [phone] Encounter Details Date Type Department Care Team (Late st Contact Info) Description 11/12/2024 Abstract [facility] [address] [place] [address] [place] [address] [place] [address] Social History Tobacco Use Types Packs/Day Years [...] on filedocumented in this encounter Care Teams Cloth Bleaching Range Back Tender Relationship Specialty Start Date End Date Virgilio Meehan DO [address] [place] [address] PCP - General FAMILY PRACTICE 09/08/22 Cee Liu APRN, RESEARCH PHLEBOTOMIST-C [address] [facility] [address] [place] [address] NURSE PRACTITIONER 05/27/22 Mame Osborn MD [address] [place] [address] INTERVENTIONAL CARDIOLOGY 05/10/24 documented as of this encounter
== END 2025-08-12 10:07 | disposition home or self-care (01) ==
PROVIDERS: PCP Family Medicine; Visit Provider Urology
DX: R94.4 Abnormal results of kidney function studies (principal); N13.30 Unspecified hydronephrosis
CPT/HCPCS: 78708; A9562; J1938